=== PATIENT | female | born 1955 | race Caucasian/White ===

== ENCOUNTER → 2020-08-05 08:10 | Outpatient (BNVA) | payer MEDICAID, SELFPAY | PROVIDERS: PCP Internal Medicine; Visit Provider Internal Medicine | DX: Z95.2 Presence of prosthetic heart valve (principal); Z51.81 Encounter for therapeutic drug level monitoring; Z79.01 Long term (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 | CPT/HCPCS: 85610 ==

== ENCOUNTER → 2020-08-16 08:28 | Outpatient (REF) | payer MEDICAID, SELFPAY ==
--- NOTE | 2020-08-16 08:33 | CA_ITS ---
Transthoracic Echocardiogram Patient (Last, First, Middle): Nubia Bond, Gender: Female Date of : 1955 Age: 64 Procedure Date: 08/16/2020 Procedure Type: Transthoracic Echocardiogram Location: OP Height: 154.94 cm Weight: 71.67 kg BSA: 1.71 m2 Heart Rate: bpm BP: 110 / 69 mmHg Insole Tape Stitcher Uco: Referring MD: Luis Antonio Nelson MD Symptoms: ITS.REASON Conclusions: - Normal left ventricular size and systolic function. - Normal right ventricular cavity size. There is mildly decreased right ventricular systolic function. - The left atrium was not well visualized. - A mechanical prosthetic mitral valve is present. The prosthetic mitral valve appears to be functioning normally. There is no mitral valve regurgitation. There is no mitral valve stenosis. - Mild pulmonary hypertension is present. - There is mild dilatation of the ascending aorta. - There is moderate calcification of the aortic valve. There is mild thickening of the aortic valve. There is moderate aortic valve stenosis. The peak aortic velocity is 2.85 m/s. The mean gradient is 18 mmHg. The aortic valve area is 1.65 cm2. There is mild aortic valve regurgitation. Findings Left Ventricle Normal left ventricular size and systolic function. There is mildly increased left ventricular wall thickness. The visually estimated ejection fraction is between 65-70%. There is no evidence of regional wall motion abnormalities. Diastolic function is indeterminate on the basis of available data. Right Ventricle Normal right ventricular cavity size. There is mildly decreased right ventricular systolic function. Atria The left atrium was not well visualized. There is no evidence of interatrial shunt by color Doppler. The right atrium is moderately dilated. Aortic Valve There is moderate calcification of the aortic valve. There is mild thickening of the aortic valve. There is moderate aortic valve stenosis. The peak aortic velocity is 2.85 m/s. The mean gradient is 18 mmHg. The aortic valve area is 1.65 cm2. There is mild aortic valve regurgitation. Mitral Valve A mechanical prosthetic mitral valve is present. The prosthetic mitral valve appears to be functioning normally. There is no mitral valve regurgitation. There is no mitral valve stenosis. Pulmonic Valve The pulmonic valve is likely normal. There is trace pulmonic valve regurgitation. Tricuspid Valve Likely normal tricuspid valve structure and function. There is mild tricuspid valve regurgitation. Normal right atrial pressure. Mild pulmonary hypertension is present. Great Vessels The pulmonary artery was not well visualized. There is mild dilatation of the ascending aorta. Venous The inferior vena cava is normal in size and collapses greater than 50% with inspiration. Pericardium/Pleural There is no evidence of pericardial effusion. Prior Study Comparison No significant change compared to prior study dated: 07/09/2019. Measurements 2D Linear Measurements RVIDd: 2.40 RVIDd Index: 1.40 IVSd: 0.91 0.6-0.9/0.6-1.0 cm LVIDd: 5.79 3.9-5.3/4.2-5.9 cm LVIDd Index: 3.39 2.4-3.2/2.2-3.1 cm/m2 LVIDs: 3.56 2.0-3.6 cm LVPWd: 1.12 0.7-1.1 cm Ao Root: 3.40 2.1-3.5 cm LA Diam: 4.80 2.7-3.8/3.0-4.0 cm LAIDs Index: 2.81 1.5-2.3 cm/m2 LV Mass: 296.04 67-162/88-224 g LV Mass Index: 173.13 43-95/49-115 g/m2 LVOT Diam: 2.00 3.0+(-)1.3 cm 2D Systolic Function EF 4C: 66.80 >55% EF 2C: 80.90 >55% EF BiP: 74.50 >55% Mitral Valve PHT: 56.00 MVA PHT: 3.93 Decel Caswell: 9.39 Aortic Valve AoV Pk Vern: 2.85 AoV Mn Vern: 1.98 AoV VTI: 0.56 AoV Pk Grad: 32.00 Aov Mn Grad: 18.00 RADHA Cont.VTI: 1.65 AI Pk Vern: 4.34 AI Caswell: 1.85 LVOT LVOT Pk Vern: 1.44 LVOT Mn Vern: 0.98 LVOT VTI: 0.29 LVOT Pk Grad: 8.00 LVOT Mn Grad: 5.00 LVOT Diam: 2.00 LVOT Area: 3.14 Tricuspid Valve TR Pk Vern: 2.94 TR Pk Grad: 35.00 RA Press: 3.00 RVSP: 38.00 Great Vessels Aorta Ao Root-2D: 3.40 2.0-3.7 cm Ao Asc: 3.40 2.1-3.4 cm Updated in Other Vendor System with Status of Final López Lion MD electronically signed on 08/17/2020 11:33:53 AM with status of Final
== END ==
LOC: HO.CARD 08:28
PROVIDERS: PCP Internal Medicine; Visit Provider Internal Medicine Cardiovascular Disease
DX: I48.0 Paroxysmal atrial fibrillation (principal); I35.0 Nonrheumatic aortic (valve) stenosis; I27.20 Pulmonary hypertension, unspecified; I50.9 Heart failure, unspecified; Z95.2 Presence of prosthetic heart valve
CPT/HCPCS: 93306

== ENCOUNTER → 2020-09-01 08:06 | Outpatient (BNVA) | payer MEDICAID, SELFPAY | PROVIDERS: PCP Internal Medicine; Visit Provider Internal Medicine | DX: Z95.2 Presence of prosthetic heart valve (principal); Z51.81 Encounter for therapeutic drug level monitoring; Z79.01 Long term (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; I50.30 Unspecified diastolic (congestive) heart failure; I48.0 Paroxysmal atrial fibrillation; I35.0 Nonrheumatic aortic (valve) stenosis; Z79.899 Other long term (current) drug therapy | CPT/HCPCS: 85610; 99211; 99212 ==

== ENCOUNTER → 2020-09-15 08:06 | Outpatient (BNVA) | payer MEDICAID, SELFPAY | PROVIDERS: PCP Internal Medicine; Visit Provider Internal Medicine | DX: Z95.2 Presence of prosthetic heart valve (principal); Z51.81 Encounter for therapeutic drug level monitoring; Z79.01 Long term (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 | CPT/HCPCS: 85610; 99211 ==

== ENCOUNTER → 2020-10-17 08:04 | Outpatient (BNVA) | payer MEDICAID, SELFPAY | PROVIDERS: PCP Internal Medicine; Visit Provider Internal Medicine | DX: Z95.2 Presence of prosthetic heart valve (principal); Z51.81 Encounter for therapeutic drug level monitoring; Z79.01 Long term (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 | CPT/HCPCS: 85610; 99211 ==

== ENCOUNTER → 2020-12-14 08:24 | Outpatient (BNVA) | payer MEDICAID, SELFPAY | PROVIDERS: PCP Internal Medicine; Visit Provider Internal Medicine | DX: Z95.2 Presence of prosthetic heart valve (principal); Z51.81 Encounter for therapeutic drug level monitoring; Z79.01 Long term (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 | CPT/HCPCS: 85610; 99211 ==

== ENCOUNTER 2020-12-14 08:48 | Outpatient (REF) | payer MEDICAID, SELFPAY | END 2020-12-14 08:49 | disposition home or self-care (01) | LOC: HO.HAP 08:48 | PROVIDERS: Visit Provider Internal Medicine | DX: Z46.1 Encounter for fitting and adjustment of hearing aid (principal) | CPT/HCPCS: 85610; V5266 ==

== ENCOUNTER 2020-12-14 08:50 | Outpatient (REF) | payer SELFPAY | END 2020-12-14 08:51 | disposition home or self-care (01) | LOC: HO.HAP 08:50 | PROVIDERS: Visit Provider Internal Medicine | DX: Z46.1 Encounter for fitting and adjustment of hearing aid (principal) | CPT/HCPCS: V5267 ==

== ENCOUNTER → 2021-01-11 08:25 | Outpatient (BNVA) | payer SELFPAY | PROVIDERS: PCP Internal Medicine; Visit Provider Internal Medicine | DX: Z95.2 Presence of prosthetic heart valve (principal); Z51.81 Encounter for therapeutic drug level monitoring; Z79.01 Long term (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 | CPT/HCPCS: 85610; 99211 ==

== ENCOUNTER → 2021-01-13 08:27 | Outpatient (BNVA) | payer SELFPAY | PROVIDERS: PCP Internal Medicine; Visit Provider Internal Medicine | DX: Z95.2 Presence of prosthetic heart valve (principal); Z51.81 Encounter for therapeutic drug level monitoring; Z79.01 Long term (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 | CPT/HCPCS: 85610; 99211 ==

== ENCOUNTER → 2021-02-09 08:29 | Outpatient (BNVA) | payer SELFPAY | PROVIDERS: PCP Internal Medicine; Visit Provider Internal Medicine | DX: Z95.2 Presence of prosthetic heart valve (principal); Z79.01 Long term (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; Z51.81 Encounter for therapeutic drug level monitoring | CPT/HCPCS: 85610; 99211 ==

== ENCOUNTER → 2021-03-08 08:21 | Outpatient (BNVA) | payer MEDICAID, SELFPAY | PROVIDERS: PCP Internal Medicine; Visit Provider Internal Medicine | DX: I48.0 Paroxysmal atrial fibrillation (principal); I50.30 Unspecified diastolic (congestive) heart failure; I35.0 Nonrheumatic aortic (valve) stenosis; Z95.2 Presence of prosthetic heart valve; Z79.899 Other long term (current) drug therapy; Z51.81 Encounter for therapeutic drug level monitoring; Z79.01 Long term (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 | CPT/HCPCS: 85610; 99211; 99212 ==

== ENCOUNTER → 2021-03-16 08:10 | Outpatient (BNVA) | payer MEDICAID, SELFPAY | PROVIDERS: PCP Internal Medicine; Visit Provider Internal Medicine | DX: Z95.2 Presence of prosthetic heart valve (principal); Z51.81 Encounter for therapeutic drug level monitoring; Z79.01 Long term (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 | CPT/HCPCS: 85610; 99211 ==

== ENCOUNTER → 2021-03-29 08:18 | Outpatient (BNVA) | payer MEDICAID, SELFPAY | PROVIDERS: PCP Internal Medicine; Visit Provider Internal Medicine | DX: Z95.2 Presence of prosthetic heart valve (principal); Z51.81 Encounter for therapeutic drug level monitoring; Z79.01 Long term (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 | CPT/HCPCS: 85610; 99211 ==

== ENCOUNTER → 2021-04-11 09:53 | Outpatient (REF) | payer MEDICAID, SELFPAY ==
--- NOTE | 2021-04-11 09:59 | ECG_ITS ---
Hook-up date: 2021-04-11 10:07:00 Duration: 22:34:00 Test Indications: UNSPEC ATRIAL FLUTTER, PVC'S Medications: 04687 QRS complexes 898 Ventricular ectopics which represent <1 % of total QRS comp. * Supraventricular ectopics which represent % of total QRS comp. * Paced QRS complexs which represent % of total QRS comp. VENTRICULAR ECTOPY 886 Isolated 0 Bigeminal Cycles 6 Couplets 0 Runs 0 Beats in Runs * Beats LONGEST at * BPM at :: -- * Beats FASTEST at * BPM at :: -- SUPRAVENTRICULAR ECTOPY * Isolated * Couplets * Runs * Beats in Runs * Beats LONGEST at * BPM at :: -- * Beats FASTEST at * BPM at :: -- HEART RATES 52 MIN at 03:44:16 2021-04-12 76 AVG 117 MAX at 16:38:13 2021-04-11 LONGEST RR 1.3440 secs at 03:44:14 2021-04-12 S-T LEVELS Channel 1 - 128 mm at 10:07:00 2021-04-11 - 128 mm at 10:07:00 2021-04-11 Channel 2 - 128 mm at 10:07:00 2021-04-11 - 128 mm at 10:07:00 2021-04-11 Channel 3 - 128 mm at 02:92:61 -- - 128 mm at 02:92:61 Basic rhythm Atrial fibrillation No long pause or profound bradycardia Occasional Premature ventricular complexes Rate is adequately controlled with average HR of 76 bpm Patient did not report any symptoms in the diary Referred By: Luis Antonio Nelson Overread By: LUIS ANTONIO NELSON MD
== END ==
LOC: HO.CARD 09:53
PROVIDERS: Visit Provider Internal Medicine Cardiovascular Disease
DX: I48.92 Unspecified atrial flutter (principal); I49.3 Ventricular premature depolarization
CPT/HCPCS: 93225; 93226

== ENCOUNTER → 2021-04-12 08:29 | Outpatient (BNVA) | payer MEDICAID, SELFPAY | PROVIDERS: PCP Internal Medicine; Visit Provider Internal Medicine | DX: Z95.2 Presence of prosthetic heart valve (principal); Z51.81 Encounter for therapeutic drug level monitoring; Z79.01 Long term (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 | CPT/HCPCS: 85610; 99211 ==

== ENCOUNTER 2021-04-15 06:04 | Emergency (ER) | payer MEDICAID, SELFPAY ==
--- NOTE | ~2021-04-15 | CT_ITS ---
EXAMINATION: CT SOFT TISSUE NECK WITH CONTRAST CLINICAL INFORMATION: Right-sided swelling. Evaluate for abscess. COMPARISON: None TECHNIQUE: Following the intravenous administration of 60 mL of Omnipaque 350 intravenous contrast, helical imaging was performed in the axial plane with generation of coronal and sagittal reformatted images. This CT examination was performed using dose optimization techniques as appropriate, variously including the following: *Automated exposure control *Adjustment of mA and/or kV according to patient size (this includes techniques or standardized protocols for targeted exams where dose is matched to indication/reason for exam; i.e. extremities or head) *Use of iterative reconstruction technique DLP: 589 mGy-cm FINDINGS: There is asymmetric soft tissue swelling of the soft tissues in the right side of the oropharynx. This is heterogeneous with low-attenuation areas suggestive of multiple small peritonsillar abscesses. Largest discrete abscess measures 1.2 x 0.6 x 1 cm in AP transverse and longitudinal dimension axial image 48 sagittal reconstructed image 29. This extends inferiorly just below the hyoid bone. There is some asymmetric soft tissue swelling adjacent to the hyoid bone. There is asymmetric effacement of the right piriform sinus and displacement of the right aryepiglottic fold to the left. The epiglottis is normal appearing. The larynx is normal appearing. There is shotty cervical lymphadenopathy. No enlarged lymph nodes are seen. There is bilateral carotid calcification. There may be carotid stenosis on the right. Follow-up ultrasound should be considered. The visualized orbits are normal. Visualized intracranial structures are normal. The visualized paranasal sinuses, mastoid air cells and middle ears are clear. The temporomandibular joints are normal. The salivary glands are normal. The lung apices are clear. The thyroid gland is normal. There is a low-attenuation seen questionable for right hilar lymphadenopathy. This measures 1.6 x 1 cm axial image 120 series 3. There is evidence of atherosclerotic disease. Superior mediastinum is otherwise normal. There is a 1 cm groundglass attenuation right upper lobe nodule axial image 3 2 series 4. There is degenerative spondylosis of the spine at C4-C5 C5-C6 and C6-C7. There is curvature of the thoracic spine to the right. There are median sternotomy wires. CT/CT soft tissue neck w con IMPRESSION: Heterogeneous attenuation asymmetric soft tissue swelling in the right oral pharynx and multiple small right peritonsillar abscesses, largest measuring 1.2 x 0.6 x 1 cm. This tracks inferiorly below the hyoid bone with asymmetric soft tissue swelling adjacent to the hyoid bone and effacement of the right piriform sinus and displacement of the right aryepiglottic fold. The epiglottis and larynx are normal appearing. Bilateral carotid calcification. Question right carotid stenosis. Follow-up elective carotid ultrasound considered. 1 cm groundglass attenuation right upper lobe nodule. Follow-up elective chest CT should also be considered.
[2021-04-15 06:20] VITALS: BP 136/60; PULSE 79; RESP 16; TEMP 36.9; O2SAT 96; BMI 32.1
--- NOTE | 2021-04-15 06:33 | ED_ITS ---
HPI - General Adult General Chief complaint: General Medical Stated complaint: Swollen throat, hurts to swallow Time Seen by Provider: 04/15/21 06:33 Source: patient Mode of arrival: ambulatory Limitations: no limitations History of Present Illness complaint: sore throat Onset (ago): day(s) () Location: mouth Severity: moderate Quality: aching and constant Pain Consistency: constant Relieving factors: none Exacerbating factors: other (swallowing) Associated symptoms: denies other symptoms Treatments prior to arrival: none Related Data Home Medications Medication Instructions Recorded Confirmed calcium citrate 315 mg-vitamin D3 1 tab PO DAILY 09/01/20 03/08/21 5 mcg (200 unit) tablet ferrous fumarate 325 mg (106 mg 325 mg PO BID 09/01/20 03/08/21 iron) tablet furosemide 20 mg tablet 20 mg PO DAILY 09/01/20 03/08/21 levothyroxine 25 mcg tablet 25 mcg PO DAILY 09/01/20 03/08/21 lisinopril 5 mg tablet 5 mg PO DAILY 09/01/20 03/08/21 mometasone-formoterol HFA 100 2 puff INHALATION BID 09/01/20 03/08/21 mcg-5 mcg/actuation aerosol inhaler tiotropium bromide 2.5 2 puff INHALATION BEDTIME 09/01/20 03/08/21 mcg/actuation mist for inhalation vitamin B complex 1 tab PO DAILY 09/01/20 03/08/21 sertraline 50 mg tablet 200 mg PO DAILY tab 03/08/21 03/08/21 Previous Rx's Medication Instructions Recorded warfarin 2.5 mg tablet 2.5 mg PO DAILY #90 tab 08/05/20 diltiazem HCl 240 mg 240 mg PO DAILY #90 cap 02/21/21 capsule,extended release 24 hr amoxicillin-pot clavulanate 1 tab PO BID 10 Days #14 tab 04/15/21 [Augmentin] Allergies Allergy/AdvReac Type Severity Reaction Status Date / Time PAPER TAPE Allergy Unknown REDNESS Uncoded 07/14/20 17:53 peper type Allergy Unknown rash Uncoded 09/09/19 00:00 Review of Systems Review of Systems: Constitutional : No Weight loss, No Fever, No Chills, No Fatigue, No Malaise ENT/Mouth : pos sore throat, No Rhinorrhea Eyes: No Eye Pain, No Swelling, No Redness Cardiovascular : No Chest Pain, No SOB, No Dyspnea on Exertion, No Orthopnea, No Edema, No Palpitations Respiratory : No Cough, No Sputum, No Wheezing Gastrointestinal : No Nausea, No Vomiting, No Diarrhea, No Constipation, No abdominal Pain, No Hematochezia, No Melena Genitourinary : No Dysuria, No Urinary Frequency, No Hematuria, Musculoskeletal : No joint pain, No Myalgias, No Joint Swelling Skin : No Skin Lesions, No rash Neuro : No Weakness, No Numbness, No Dizziness, No Headache Psych : No Anxiety/Panic, No Depression Heme/Lymph: No Bruising, No Bleeding, pos Lymphadenopathy Endocrine : No Polyuria, No Polydipsia All other systems reviewed and are negative PMFSH Past Medical History Attestation statement: The following information was validated with the patient. Medical History (HFpEF) heart failure with preserved ejection fraction Aortic stenosis COPD (chronic obstructive pulmonary disease) Obesity Paroxysmal atrial fibrillation Surgical History History of sleeve gastrectomy (~2017) Hx of section Hx of mitral valve replacement (~2004) Hx of transesophageal echocardiography (SHELIA) for monitoring (~2015) S/P MVR (mitral valve replacement) Family History Family History Father No problems noted. Mother CVD (cardiovascular disease) Social History Social History (Updated 04/15/21 @ 06:41 by Kristin Banda DO) Alcohol intake: never Patient Tobacco Use Status: Never used Tobacco Use of substances other than those prescribed or required for medical reasons: No Advance Directives: No Advance Directives Information Provided: No Physical Exam Vital Signs: Vital Signs: Last Vital Signs Temp 98.4 F 04/15/21 06:20 Pulse 68 04/15/21 08:00 Resp 16 04/15/21 08:00 BP 113/49 L 04/15/21 08:00 Pulse Ox 96 04/15/21 08:00 Body Mass Index 32.1 Appearance: Alert. Oriented X3. No acute distress. Eyes: Pupils equal, round and reactive to light. ENT: Pharynx R sided erythema and swelling noted with no exudate peritonsillar cellulitis noted, no stridor, can manage secretions Neck: Normal inspection. Neck supple. R sided moderate cervical lymphadenopthy and bogginess felt no discrete mass CVS: Normal heart rate and rhythm. Pulses normal. Respiratory: No respiratory distress. Breath sounds normal. Abdomen: Soft and nontender. Skin: Skin warm and dry. Normal skin color. Normal skin turgor. Extremities: No lower extremity edema. No calf ttp Neuro: Oriented X 3. No motor deficit. No sensory deficit. Course Course Course Narrative: Heterogeneous attenuation asymmetric soft tissue swelling in the right oral pharynx and multiple small right peritonsillar abscesses, largest measuring 1.2 x 0.6 x 1 cm. This tracks inferiorly below the hyoid bone with asymmetric soft tissue swelling adjacent to the hyoid bone and effacement of the right piriform sinus and displacement of the right aryepiglottic fold. The epiglottis and larynx are normal appearing. Bilateral carotid calcification. Question right carotid stenosis. Follow-up elective carotid ultrasound considered. 1 cm groundglass attenuation right upper lobe nodule. Follow-up elective chest CT should also be considered. THE PATIENT REFUSES TRANSFER TO [facility] FOR ENT GIVEN ABSCESS SHE STATES SHE CANNOT SHE CARES FOR HER BROTHER SHE IS AWARE OF ABSCESS AND THE FACT THAT IT IS PUSHING ON THE AIRWAY, CLINICALLY HER VOICE AND HER PRESENTATION IS MARKEDLY IMPROVED AFTER DEXAMETHASONE Medical Decision Making MDM Narrative Medical decision making narrative: 65 yo female with hx of CHF, MVR replacement on coumadin, aflutter, COPD here with sore throat worsening since her exam is concerning for possible abscess and given her coumadin use this is concerning how it would be treated she may require tertiary center, at this time will obtain labs, CT scan for abscess, give steroids and start on IV clindamyinc dispo per results of CT scan and if she needs ENT involvement, her airway is patent at this time. Lab Data Result diagrams: 04/15/21 07:02 04/15/21 07:02 Labs: Lab Results 04/15/21 04/15/21 04/15/21 Range/Units 07:02 07:02 07:02 WBC 8.4 (4.8-10.8) X10*3/uL RBC 4.06 L (4.20-5.50) X10*6/uL Hgb 11.1 L (12.0-16.0) g/dl Hct 35.6 L (37-47) % MCV 87.7 (80-98) fL MCH 27.3 (27.0-33.0) pg MCHC 31.2 (31.0-35.0) g/dl RDW 14.6 (11.0-16.0) % Plt Count 165 (160-400) X10*3/uL MPV 11.9 (9.4-12.3) fL Immature Gran % (Auto) 0.4 (0.0-0.4) % Neut % (Auto) 83.2 H (45-73) % Lymph % (Auto) 7.1 L (20-40) % Chambers % (Auto) 8.5 (2-11) % Eos % (Auto) 0.6 (0-4) % Baso % (Auto) 0.2 (0-2) % Lymph # (Auto) 0.6 L (1.2-4.9) X10*3/uL Chambers # (Auto) 0.7 (0.1-1.2) X10*3/uL Eos # (Auto) 0.1 (0.0-0.4) X10*3/uL Baso # (Auto) 0.0 (0.0-0.2) X10*3/uL Abs Immat Gran (auto) 0.03 (0.00-0.03) X10*3/uL Absolute Neuts (auto) 7.0 (2.0-8.3) X10*3/uL Absolute Nucleated RBC 0.000 (0.0-0.012) X10*3/uL Nucleated RBC % (auto) 0.0 (0.0-0.2) /100WBC PT (10.8-13.0) SEC INR (0.9-1.1) APTT (24.1-38.0) SEC Sodium 139 (135-145) mmol/L Potassium 4.4 (3.3-5.1) mmol/L Chloride 107 (96-108) mmol/L Carbon Dioxide 24 (22-29) mmol/L Anion Gap 12 (12-20) BUN 16 (9-16) mg/dL Creatinine 0.68 (0.5-1.4) mg/dL Estim Creat Clear Calc 78.5 Estimated GFR > 60 Random Glucose 99 (60-115) mg/dL Lactic Acid (0.5-2.0) mmol/L Calcium 9.0 (8.4-10.2) mg/dL S. pyogenes GrpA IVAN Negative (Negative) 04/15/21 04/15/21 Range/Units 07:02 07:02 WBC (4.8-10.8) X10*3/uL RBC (4.20-5.50) X10*6/uL Hgb (12.0-16.0) g/dl Hct (37-47) % MCV (80-98) fL MCH (27.0-33.0) pg MCHC (31.0-35.0) g/dl RDW (11.0-16.0) % Plt Count (160-400) X10*3/uL MPV (9.4-12.3) fL Immature Gran % (Auto) (0.0-0.4) % Neut % (Auto) (45-73) % Lymph % (Auto) (20-40) % Chambers % (Auto) (2-11) % Eos % (Auto) (0-4) % Baso % (Auto) (0-2) % Lymph # (Auto) (1.2-4.9) X10*3/uL Chambers # (Auto) (0.1-1.2) X10*3/uL Eos # (Auto) (0.0-0.4) X10*3/uL Baso # (Auto) (0.0-0.2) X10*3/uL Abs Immat Gran (auto) (0.00-0.03) X10*3/uL Absolute Neuts (auto) (2.0-8.3) X10*3/uL Absolute Nucleated RBC (0.0-0.012) X10*3/uL Nucleated RBC % (auto) (0.0-0.2) /100WBC PT 35.5 H (10.8-13.0) SEC INR 3.0 H (0.9-1.1) APTT 45.9 H (24.1-38.0) SEC Sodium (135-145) mmol/L Potassium (3.3-5.1) mmol/L Chloride (96-108) mmol/L Carbon Dioxide (22-29) mmol/L Anion Gap (12-20) BUN (9-16) mg/dL Creatinine (0.5-1.4) mg/dL Estim Creat Clear Calc Estimated GFR Random Glucose (60-115) mg/dL Lactic Acid 0.7 (0.5-2.0) mmol/L Calcium (8.4-10.2) mg/dL S. pyogenes GrpA IVAN (Negative) Discharge Plan Discharge Clinical Impression: Abscess, peritonsillar Patient Disposition: Home, Self-Care Instructions: Peritonsillar Abscess (ED) Additional Instructions: INR 3.0 BE AWARE THAT ANTIBIOTICS CAN INCREASE YOUR INR YOU WERE RECOMMENDED TO GO TO [facility] GIVEN THE ABSCESS BUT DECLINED, PLEASE CALL 911 IF YOU RAPIDLY DECLINE, FOLLOW UP WITH AN ENT CT SCAN FINDINGS: Heterogeneous attenuation asymmetric soft tissue swelling in the right oral pharynx and multiple small right peritonsillar abscesses, largest measuring 1.2 x 0.6 x 1 cm. This tracks inferiorly below the hyoid bone with asymmetric soft tissue swelling adjacent to the hyoid bone and effacement of the right piriform sinus and displacement of the right aryepiglottic fold. The epiglottis and larynx are normal appearing. Bilateral carotid calcification. Question right carotid stenosis. Follow-up elective carotid ultrasound considered. 1 cm groundglass attenuation right upper lobe nodule. Follow-up elective chest CT should also be considered. [facility] ENT: Address: [address] [place] [address] Prescriptions: New amoxicillin-pot clavulanate [Augmentin] 875-125 mg tablet 1 tab PO BID 10 Days Qty: 14 RF: 0 No Action diltiazem HCl 240 mg capsule,extended release 24hr 240 mg PO DAILY Qty: 90 RF: 3 lisinopril 5 mg tablet 5 mg PO DAILY RF: 0 levothyroxine 25 mcg tablet 25 mcg PO DAILY RF: 0 ferrous fumarate 325 mg (106 mg iron) tablet 325 mg PO BID RF: 0 vitamin B complex [B Complex-Vitamin B12] Tablet 1 tab PO DAILY RF: 0 calcium citrate-vitamin D3 [Calcium Citrate + D] 315 mg-5 mcg (200 unit) tablet 1 tab PO DAILY RF: 0 Spiriva Respimat 2.5 mcg/actuation mist 2 puff inhalation BEDTIME RF: 0 Dulera 100-5 mcg/actuation HFA aerosol inhaler 2 puff inhalation BID RF: 0 furosemide [Lasix] 20 mg tablet 20 mg PO DAILY RF: 0 sertraline [Zoloft] 50 mg tablet 200 mg PO DAILY RF: 0 warfarin 2.5 mg tablet 2.5 mg PO DAILY Qty: 90 RF: 0 Interventions: ED Discharge Assessment Last Done: 04/15/21 09:49 Discharge Date/Time: 04/15/21 09:51
[2021-04-15 07:11] LABS: MANUAL DIFF FLAG NO
[2021-04-15 07:13] LABS: Basophils Percent Auto 0.2 % (0-2); Eosinophils Absolute Auto 0.1 X10*3/uL (0.0-0.4); Eosinophils Percent Auto 0.6 % (0-4); Hematocrit 35.6 % (37-47); Hemoglobin 11.1 g/dl (12.0-16.0); Imm Gran Abs Auto 0.03 X10*3/uL (0.00-0.03); Imm Gran Pct Auto 0.4 % (0.0-0.4); Lymphocytes Absolute Auto 0.6 X10*3/uL (1.2-4.9); Lymphocytes Percent Auto 7.1 % (20-40); Mean Corpuscular HGB Conc 31.2 g/dl (31.0-35.0); Mean Corpuscular Hemoglobin 27.3 pg (27.0-33.0); Mean Corpuscular Volume 87.7 fL (80-98); Mean Platelet Volume 11.9 fL (9.4-12.3); Monocytes Absolute Auto 0.7 X10*3/uL (0.1-1.2); Monocytes Percent Auto 8.5 % (2-11); Neutrophils Percent Auto 83.2 % (45-73); Platelet Count 165 X10*3/uL (160-400); Red Blood Count 4.06 X10*6/uL (4.20-5.50); Red Cell Distribution Width 14.6 % (11.0-16.0); White Blood Count 8.4 X10*3/uL (4.8-10.8)
[2021-04-15] MEDS: dexAMETHasone sod phosphate 4 MG/ML VIAL 6 MG IVPUSH (07:18)
[2021-04-15] MEDS: Clindamycin Phosphate/D5W 900 MG/50 ML PIGGYBACK 50 MG IV (07:18)
[2021-04-15 07:21] LABS: Prothrombin Time 35.5 SEC (10.8-13.0)
[2021-04-15 07:22] LABS: IDNOW Serial# 9DD0AD1C; Strep A Nucleic Acid Negative (Negative)
[2021-04-15 07:24] LABS: Partial Thromboplastin Time 45.9 SEC (24.1-38.0)
--- NOTE | 2021-04-15 07:32 | PC.NURSE ---
Report received from ASIF Baer. Patient reporting throat pain, primarily on right side. Pain 5/10. Airway paten with regular, even, and nonlabored respirations. Skin PWD. Afebrile. IV established and labs drawn. Patient tolerated well. Medicated with decadron and Clindamycin hung. Awaiting antibiotic infusion and CT scan. Will continue to monitor.
[2021-04-15 07:35] LABS: Lactic Acid 0.7 mmol/L (0.5-2.0)
[2021-04-15 07:38] LABS: Anion Gap 12 (12-20); Blood Urea Nitrogen 16 mg/dL (9-16); Carbon Dioxide 24 mmol/L (22-29); Chloride 107 mmol/L (96-108); Creatinine Clr Calc Pharmacy 78.5; Estimated Glomerular Filt Rate > 60; Glucose Random 99 mg/dL (60-115); Potassium 4.4 mmol/L (3.3-5.1); Sodium 139 mmol/L (135-145)
[2021-04-15 08:00] VITALS: BP 113/49; PULSE 68; RESP 16; O2SAT 96
--- NOTE | 2021-04-15 08:07 | PC.NURSE ---
Patient reports feeling mildly improved. Notes it feels a bit easier to swallow and pain is decreased to 3/10. Airway remains patent, speaking in clear and full sentences. Respirations regular and even. Skin PWD. Antibiotics infusion completed. Awaiting CT scan.
[2021-04-15] MEDS: iohexoL 350 MG/ML 100 ML INFUS..BTL IV (08:48)
== END 2021-04-15 09:51 | disposition home or self-care (01) ==
PROVIDERS: Emergency Provider Emergency Medicine; PCP Internal Medicine
DX: J36 Peritonsillar abscess (principal); I48.0 Paroxysmal atrial fibrillation; I50.30 Unspecified diastolic (congestive) heart failure; J44.9 Chronic obstructive pulmonary disease, unspecified; Z79.01 Long term (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; Z79.899 Other long term (current) drug therapy; Z95.2 Presence of prosthetic heart valve
CPT/HCPCS: 36415; 70491; 80048; 83605; 85025; 85610; 85730; 87040; 87651; 96365; 96375; 99284; J1100; Q9967

== ENCOUNTER 2021-04-26 13:25 | Inpatient (IN) | payer MEDICAID, SELFPAY ==
[2021-04-26] VITALS (8 sets, daily range): BP systolic 67–101; BP diastolic 37–53; PULSE 65–100; RESP 15–77; TEMP 36.4–36.8; O2SAT 94–98; BMI 31.1
--- NOTE | ~2021-04-26 | CT_ITS ---
EXAMINATION: CT SOFT TISSUE NECK WITHOUT CONTRAST CLINICAL INFORMATION: Follow-up peritonsillar abscess. COMPARISON: Neck CT from 04/15/2021. TECHNIQUE: Helical imaging was performed in the axial plane with generation of coronal and sagittal reformatted images. This CT examination was performed using dose optimization techniques as appropriate, variously including the following: *Automated exposure control *Adjustment of mA and/or kV according to patient size (this includes techniques or standardized protocols for targeted exams where dose is matched to indication/reason for exam; i.e. extremities or head) *Use of iterative reconstruction technique DLP: 581 mGy-cm FINDINGS: Asymmetric thickening of the right tonsillar wall has grossly normal as on this limited noncontrast study. No obvious low-density fluid collection is seen within the right palatine tonsil or peritonsillar region. There is a minimal amount of soft tissue stranding in the retropharyngeal space without a discrete fluid collection. The parotid and submandibular glands appear normal. The oral cavity is normal in appearance. Soft tissue thickening extending more inferiorly along the right pharyngeal wall into the vallecula has improved, however, a mild degree of residual mucosal edema is still evident with partial effacement of the right vallecula as compared to the left side. Previous mild edema in the epiglottis has resolved. Mild edematous change of the right aryepiglottic fold on the previous examination has also now normalized. The remaining large and structures are normal and the airway is preserved. The thyroid gland appears normal. The imaged portions of the brain demonstrate no acute abnormality. The orbits are normal. The middle ear cavities and mastoid air cells are aerated. Atherosclerotic wall calcifications again visible in the carotid vasculature at the level of the bifurcations. No bulky cervical adenopathy is seen. Moderate to severe lower cervical spondylosis again noted. Large perforated defect in the nasal septum. Absence of the majority of the middle and inferior turbinates bilaterally. The TMJs are normal. Enlargement of the main pulmonary artery again noted. Post sternotomy changes visible. A patchy area of groundglass density in the right upper lobe measuring approximately 1 cm in size is unchanged and nonspecific. Mild paraseptal emphysematous changes again noted. CT/CT soft tissue neck wo con IMPRESSION: Interval improvement compared to the previous study with resolution of abnormal thickening of the right tonsillar wall. Previous presumed peritonsillar abscess is no longer seen on this limited noncontrast study. Submucosal edema in the inferior right pharyngeal wall partially effacing the right vallecula has improved. Submucosal edema in the epiglottis and right aryepiglottic fold have resolved. No cervical adenopathy. Mild residual soft tissue stranding in the retropharyngeal space without a discrete fluid collection. Stable nonspecific groundglass density in the right upper lobe. A follow-up CT scan of the chest is recommended in order to ensure resolution of this imaging finding.
--- NOTE | ~2021-04-26 | XR_ITS ---
EXAMINATION: XR CHEST CLINICAL INFORMATION: Chest pain COMPARISON: Previous chest x-ray 01/20/2020 TECHNIQUE: Frontal view of the chest was obtained. FINDINGS: The cardiac silhouette is slightly enlarged but stable. 2 heart valve rings are seen. There are median sternotomy wires. Lungs are clear. There is no pleural effusion or pneumothorax. Bony structures are unremarkable. XR/XR chest 1V IMPRESSION: No evidence for acute disease in the chest.
--- NOTE | 2021-04-26 14:41 | ECG_ITS ---
Test Reason : LOW BP Blood Pressure : / mmHG Vent. Rate : 074 BPM Atrial Rate : 258 BPM P-R Int : 000 ms QRS Dur : 098 ms QT Int : 400 ms P-R-T Axes : 000 052 -17 degrees QTc Int : 444 ms Atrial fibrillation with a competing junctional pacemaker Abnormal QRS-T angle, consider primary T wave abnormality Abnormal ECG When compared with ECG of 20-JAN-2020 10:03, Atrial fibrillation has replaced Sinus rhythm Referred By: Brown Fair Electronically Signed By:JUMANA MOSES MD
--- NOTE | 2021-04-26 14:42 | ED_ITS ---
HPI - General Adult General Chief complaint: General Medical Stated complaint: vomiting, diarrea Time Seen by Provider: 04/26/21 14:41 Source: patient Mode of arrival: ambulatory Limitations: no limitations History of Present Illness HPI narrative: this is 65 years old female presented to the emergency department ambulatory with a chief complaint of diarrhea, nausea she states she is unable to keep anything down. Denies any fever chills chest pain she has history of mitral valve replacement she is anticoagulated with Coumadin Onset (ago): day(s) (2) Radiation: non-radiation Severity: moderate Pain Consistency: constant Relieving factors: none Related Data Home Medications Medication Instructions Recorded Confirmed furosemide 20 mg tablet 40 mg PO DAILY@1700 09/01/20 04/26/21 levothyroxine 25 mcg tablet 25 mcg PO DAILY 09/01/20 04/26/21 lisinopril 5 mg tablet 5 mg PO DAILY 09/01/20 04/26/21 mometasone-formoterol HFA 100 2 puff INHALATION BID 09/01/20 04/26/21 mcg-5 mcg/actuation aerosol inhaler tiotropium bromide 2.5 2 puff INHALATION DAILY 09/01/20 04/26/21 mcg/actuation mist for inhalation albuterol sulfate [ProAir HFA] 2 puff INHALATION Q4-6H PRN 04/26/21 04/26/21 atorvastatin 20 mg PO DAILY 04/26/21 04/26/21 ferrous sulfate 325 mg PO 1700,1900,2100 04/26/21 04/26/21 sertraline 200 mg PO DAILY 04/26/21 04/26/21 warfarin 7.5 mg PO SUTUTHSA@1800 04/26/21 04/26/21 warfarin 10 mg PO MOWEFR@1800 04/26/21 04/26/21 zolpidem 5 mg PO BEDTIME PRN 04/26/21 04/26/21 Previous Rx's Medication Instructions Recorded diltiazem HCl 240 mg 240 mg PO DAILY #90 cap 02/21/21 capsule,extended release 24 hr Allergies Allergy/AdvReac Type Severity Reaction Status Date / Time PAPER TAPE Allergy Unknown REDNESS Uncoded 07/14/20 17:53 peper type Allergy Unknown rash Uncoded 09/09/19 00:00 Review of Systems Review of Systems: Yes all other systems are reviewed and are negative Cardiovascular: Cardiovascular: Reports no additional cardiovascular complaints Respiratory: Respiratory: Reports no additional respiratory complaints and Reports no additional respiratory complaints Neurologic: Reports system reviewed and no additional complaints, except as documented PMFSH Past Medical History Medical History (HFpEF) heart failure with preserved ejection fraction Aortic stenosis COPD (chronic obstructive pulmonary disease) Obesity Paroxysmal atrial fibrillation Surgical History History of sleeve gastrectomy (~2017) Hx of section Hx of mitral valve replacement (~2004) Hx of transesophageal echocardiography (SHELIA) for monitoring (~2015) S/P MVR (mitral valve replacement) Family History Family History Father No problems noted. Mother CVD (cardiovascular disease) Social History Social History Household Members: Family Housing: House Do you presently have visiting nurse or other home services: No Alcohol intake: never Patient Tobacco Use Status: Former Tobacco user Tobacco use type: Cigarette Use of substances other than those prescribed or required for medical reasons: No Currently Displaying Signs/Symptoms of Drug Intoxication Withdrawal: No Have you been hit, kicked, punched, or otherwise hurt by someone within the past year? If so, by whom?: No Do you feel safe in your current relationship?: No Current Relationship Is there a partner from a previous relationship who is making you feel unsafe now?: No Are you made to feel afraid or neglected: No Advance Directives: Yes Advance Directives Information Provided: Yes Advance Directives on File: No Advance Directives Date on File: 04/27/21 Do you have thoughts of harming others: None Do you have a plan to hurt others: No Plan Recently lost weight without trying: No Nutrition Risks: No Nutritional Risk Patient : No : No Poor oral hygiene: No service: No Current occupational status: disabled Physical Exam Vital Signs: Vital Signs: Last Vital Signs Temp 99.3 F 04/27/21 19:41 Pulse 88 04/27/21 19:41 Resp 22 H 04/27/21 19:41 BP 112/60 04/27/21 19:41 Pulse Ox 95 04/27/21 19:41 Body Mass Index 31.1 Const: General: cooperative and comfortable Orientation/consciousness: oriented to person, oriented to place, oriented to time and patient oriented x3 HENMT: Head: Yes normal to inspection Eyes: General: appearance normal, both eyes and all related structures Visual Morgan: normal visual morgan by confrontation Neck: Neck: Yes normal visual inspection, Yes full ROM and Yes no lymphadenopathy Chest: Chest palpation & inspection: normal inspection of the chest and normal palpation of entire chest wall Resp: Effort & Inspection: normal respiratory effort Auscultation: clear to auscultation bilaterally Cardio: Jugular venous distension: no JVD Rate: regular rate Rhythm: regular rhythm GI: Inspection: Yes normal to inspection Auscultation: normal bowel sounds Skin: General skin exam: no rashes or lesions noted and elasticity normal Neuro: General: oriented to person, oriented to place, oriented to time, patient oriented x3 and gait normal Medical Decision Making MDM Narrative Medical decision making narrative: the picture is most consistent with hypotension secondary to hypovolemia,infact she report watery diarrhea,and fluid loss secondary to the diarrhea ,she does not report fever,she is mentating well,she has negative quick sofa score (no altered mental status ,no tachypnea only low BP).I do no think she is septic,we are gong to give IV fluids,will get blood cultures anyway,we will send stools culture,Audreyff is in the d.d. she received augmentin in ED few Days ago. She has an elevated INR but she is no bleeding therefore I thin is reasonable to give po Vit K,I fili not think she need reversal of INR because she has a mechanical valve and she is no bleeding. consulted ICU attending Dr Amando Diaz to see the pt because the hypotension ,he will see the pt in ED.I do not think central line is indacated because we have good IV access and would be risky procedure with the INR elevated. Lab Data Result diagrams: 04/27/21 05:48 04/27/21 05:48 Labs: Lab Results 04/26/21 04/26/21 04/26/21 Range/Units 15:19 15:19 15:19 WBC 16.1 H (4.8-10.8) X10*3/uL RBC 4.50 (4.20-5.50) X10*6/uL Hgb 12.2 (12.0-16.0) g/dl Hct 38.0 (37-47) % MCV 84.4 (80-98) fL MCH 27.1 (27.0-33.0) pg MCHC 32.1 (31.0-35.0) g/dl RDW 14.5 (11.0-16.0) % Plt Count 195 (160-400) X10*3/uL MPV Not Reportable Immature Gran % (Auto) 0.6 H (0.0-0.4) % Neut % (Auto) 88.1 H (45-73) % Lymph % (Auto) 3.0 L (20-40) % Independence % (Auto) 7.8 (2-11) % Eos % (Auto) 0.3 (0-4) % Baso % (Auto) 0.2 (0-2) % Lymph # (Auto) 0.5 L (1.2-4.9) X10*3/uL Independence # (Auto) 1.3 H (0.1-1.2) X10*3/uL Eos # (Auto) 0.1 (0.0-0.4) X10*3/uL Baso # (Auto) 0.0 (0.0-0.2) X10*3/uL Abs Immat Gran (auto) 0.10 H (0.00-0.03) X10*3/uL Absolute Neuts (auto) 14.2 H (2.0-8.3) X10*3/uL Absolute Nucleated RBC 0.000 (0.0-0.012) X10*3/uL Nucleated RBC % (auto) 0.0 (0.0-0.2) /100WBC Smear Tech's Comments VERIFIED PT 129.6 H D (10.8-13.0) SEC INR 10.6 H* D (0.9-1.1) Sodium 135 (135-145) mmol/L Potassium 4.0 (3.3-5.1) mmol/L Chloride 101 (96-108) mmol/L Carbon Dioxide 17 L (22-29) mmol/L Anion Gap 21 H (12-20) BUN 57 H D (9-16) mg/dL Creatinine 3.73 H (0.5-1.4) mg/dL Estim Creat Clear Calc 14.6 Estimated GFR 12 Random Glucose 93 (60-115) mg/dL Lactic Acid (0.5-2.0) mmol/L Calcium 8.5 (8.4-10.2) mg/dL Total Bilirubin 0.3 (0.0-1.0) mg/dL AST 19 (5-31) U/L ALT 8 (0-31) U/L Alkaline Phosphatase 104 (39-117) U/L Troponin I High Sens (<3.5-17.0) ng/L Total Protein 6.6 (6.5-8.0) g/dL Albumin 3.5 (3.5-5.0) g/dL 04/26/21 04/26/21 04/26/21 Range/Units 15:19 16:15 20:18 WBC (4.8-10.8) X10*3/uL RBC (4.20-5.50) X10*6/uL Hgb (12.0-16.0) g/dl Hct (37-47) % MCV (80-98) fL MCH (27.0-33.0) pg MCHC (31.0-35.0) g/dl RDW (11.0-16.0) % Plt Count (160-400) X10*3/uL MPV Immature Gran % (Auto) (0.0-0.4) % Neut % (Auto) (45-73) % Lymph % (Auto) (20-40) % Independence % (Auto) (2-11) % Eos % (Auto) (0-4) % Baso % (Auto) (0-2) % Lymph # (Auto) (1.2-4.9) X10*3/uL Independence # (Auto) (0.1-1.2) X10*3/uL Eos # (Auto) (0.0-0.4) X10*3/uL Baso # (Auto) (0.0-0.2) X10*3/uL Abs Immat Gran (auto) (0.00-0.03) X10*3/uL Absolute Neuts (auto) (2.0-8.3) X10*3/uL Absolute Nucleated RBC (0.0-0.012) X10*3/uL Nucleated RBC % (auto) (0.0-0.2) /100WBC Smear Tech's Comments PT (10.8-13.0) SEC INR (0.9-1.1) Sodium 137 (135-145) mmol/L Potassium 3.8 (3.3-5.1) mmol/L Chloride 111 H (96-108) mmol/L Carbon Dioxide 16 L (22-29) mmol/L Anion Gap 14 (12-20) BUN 47 H (9-16) mg/dL Creatinine 2.27 H (0.5-1.4) mg/dL Estim Creat Clear Calc 24.1 Estimated GFR 22 Random Glucose 95 (60-115) mg/dL Lactic Acid 1.0 (0.5-2.0) mmol/L Calcium 7.5 L D (8.4-10.2) mg/dL Total Bilirubin (0.0-1.0) mg/dL AST (5-31) U/L ALT (0-31) U/L Alkaline Phosphatase (39-117) U/L Troponin I High Sens 22.5 H* (<3.5-17.0) ng/L Total Protein (6.5-8.0) g/dL Albumin (3.5-5.0) g/dL 04/26/21 Range/Units 20:18 WBC (4.8-10.8) X10*3/uL RBC (4.20-5.50) X10*6/uL Hgb (12.0-16.0) g/dl Hct (37-47) % MCV (80-98) fL MCH (27.0-33.0) pg MCHC (31.0-35.0) g/dl RDW (11.0-16.0) % Plt Count (160-400) X10*3/uL MPV Immature Gran % (Auto) (0.0-0.4) % Neut % (Auto) (45-73) % Lymph % (Auto) (20-40) % Independence % (Auto) (2-11) % Eos % (Auto) (0-4) % Baso % (Auto) (0-2) % Lymph # (Auto) (1.2-4.9) X10*3/uL Independence # (Auto) (0.1-1.2) X10*3/uL Eos # (Auto) (0.0-0.4) X10*3/uL Baso # (Auto) (0.0-0.2) X10*3/uL Abs Immat Gran (auto) (0.00-0.03) X10*3/uL Absolute Neuts (auto) (2.0-8.3) X10*3/uL Absolute Nucleated RBC (0.0-0.012) X10*3/uL Nucleated RBC % (auto) (0.0-0.2) /100WBC Smear Tech's Comments PT (10.8-13.0) SEC INR (0.9-1.1) Sodium (135-145) mmol/L Potassium (3.3-5.1) mmol/L Chloride (96-108) mmol/L Carbon Dioxide (22-29) mmol/L Anion Gap (12-20) BUN (9-16) mg/dL Creatinine (0.5-1.4) mg/dL Estim Creat Clear Calc Estimated GFR Random Glucose (60-115) mg/dL Lactic Acid 0.5 (0.5-2.0) mmol/L Calcium (8.4-10.2) mg/dL Total Bilirubin (0.0-1.0) mg/dL AST (5-31) U/L ALT (0-31) U/L Alkaline Phosphatase (39-117) U/L Troponin I High Sens (<3.5-17.0) ng/L Total Protein (6.5-8.0) g/dL Albumin (3.5-5.0) g/dL Critical Care Time Critical Care Time Critical Care Time: Yes Total Critical Care Time: 60 Attestation: examining pt,reviwing labs,speaking with [facility] consultant ICU Discharge Plan Discharge Clinical Impression: Hypotension, Renal failure, Supratherapeutic INR, Diarrhea Patient Disposition: Admitted As Inpatient Interventions: Admission Worksheet (ED) Last Done: 04/27/21 01:30 Discharge Date/Time: 04/27/21 01:42
[2021-04-26] MEDS: 0.9 % Sodium Chloride 1,000 ML 999 ML IVCONT ×4 (15:03→16:20)
--- NOTE | 2021-04-26 15:16 | PC.NURSE ---
CONTACTED LAB REGARDING LOW BLOOD CULTURE LEVELS DUE TO DEHYDRATION SPOKE TO JEREMY FROM LAB OKAYED TO SEND DOWN DUE TO ETITIOLGY. 50DROPS PER CULTURE 2 SITES. FIRST 1505, SECOND 1515
[2021-04-26 15:38] LABS: Prothrombin Time 129.6 SEC (10.8-13.0)
[2021-04-26 15:42] LABS: INTERNATIONAL NORM RATIO 10.6 (0.9-1.1)
[2021-04-26] MEDS: ondansetron HCL 4 MG/2 ML VIAL IVPUSH (15:43)
[2021-04-26 15:48] LABS: Eosinophils Absolute Auto 0.1 X10*3/uL (0.0-0.4); Eosinophils Percent Auto 0.3 % (0-4); Hemoglobin 12.2 g/dl (12.0-16.0); Lymphocytes Absolute Auto 0.5 X10*3/uL (1.2-4.9); MANUAL DIFF FLAG SCAN; SCAN SMEAR FLAG 1
[2021-04-26 15:50] LABS: Basophils Percent Auto 0.2 % (0-2); Imm Gran Pct Auto 0.6 % (0.0-0.4); Mean Corpuscular HGB Conc 32.1 g/dl (31.0-35.0); Mean Corpuscular Hemoglobin 27.1 pg (27.0-33.0); Mean Corpuscular Volume 84.4 fL (80-98); Monocytes Absolute Auto 1.3 X10*3/uL (0.1-1.2); Monocytes Percent Auto 7.8 % (2-11); Neutrophils Absolute Auto 14.2 X10*3/uL (2.0-8.3); Neutrophils Percent Auto 88.1 % (45-73); PLT CLUMP 1; Red Cell Distribution Width 14.5 % (11.0-16.0)
[2021-04-26 15:53] LABS: PLT ABN DIST 1; White Blood Count 16.1 X10*3/uL (4.8-10.8)
[2021-04-26 16:11] LABS: Alanine Aminotransferase 8 U/L (0-31); Albumin Level 3.5 g/dL (3.5-5.0); Alkaline Phosphatase 104 U/L (39-117); Anion Gap 21 (12-20); Aspartate Amino Transferase 19 U/L (5-31); Bilirubin Total 0.3 mg/dL (0.0-1.0); Blood Urea Nitrogen 57 mg/dL (9-16); Calcium 8.5 mg/dL (8.4-10.2); Carbon Dioxide 17 mmol/L (22-29); Chloride 101 mmol/L (96-108); Creatinine Clr Calc Pharmacy 14.6; Estimated Glomerular Filt Rate 12; Glucose Random 93 mg/dL (60-115); Sodium 135 mmol/L (135-145); Total Protein 6.6 g/dL (6.5-8.0)
[2021-04-26 16:13] LABS: Platelet Count 195 X10*3/uL (160-400); SLIDE REVIEW VERIFIED
[2021-04-26] MEDS: Phytonadione (Vit K1) Oral 10 MG/ML AMPUL 5 MG PO (16:28)
[2021-04-26] MEDS: Potassium Chloride ER 20 MEQ TAB.ER.PRT PO (16:28)
[2021-04-26 16:55] LABS: Troponin-I High Sensitivity 22.5 ng/L (<3.5-17.0)
--- NOTE | 2021-04-26 17:07 | PC.NURSE ---
[facility]
--- NOTE | 2021-04-26 17:09 | PC.NURSE ---
simi nelson from pharmacy 20min eta for vit k drip
[2021-04-26] MEDS: Piperacillin Sodium/Tazobactam 4.5 GM in 0.9 % Sodium Chloride 100 ML IV (17:21)
[2021-04-26] MEDS: vancomycin HCL 1,500 MG in 0.9 % Sodium Chloride 500 ML 333.33 MG IV (17:29)
[2021-04-26] MEDS: Phytonadione (Vit K1) 10 MG in 0.9 % Sodium Chloride 50 ML 51 MG IV (17:38)
[2021-04-26] MEDS: Lactated Ringers 1,000 ML 999 ML IV (17:42)
--- NOTE | 2021-04-26 17:45 | P.CONCC_ITS ---
History of Present Illness Data of Consult Service Date: 04/26/21 Requesting physician: Brown Fair Primary Care Provider: Daniela Chopra MD HPI I was asked by Dr. Fair to see Mrs. Bond bec of hypotension refractory to fluids. Briefly, The patient is a 65 year old female with PMHx of: S/P MVR (mitral valve replacement) (HFpEF) heart failure with preserved ejection fraction w normal RV size, RVSP 38mm. Aortic stenosis (gradients 32/18mm) COPD (chronic obstructive pulmonary disease) Obesity Paroxysmal atrial fibrillation History of sleeve gastrectomy (~2018) Hx of section Meds at home include diltiazem, Lasix, Lisinopril, and Coumadin. On April 15, the patient presented to our ED complaining of sore throat. She underwent a neck CT which showed ?Heterogeneous attenuation asymmetric soft tissue swelling in the right oral pharynx and multiple small right peritonsillar abscesses, largest measuring 1.2 x 0.6 x 1 cm. This tracks inferiorly below the hyoid bone with asymmetric soft tissue swelling adjacent to the hyoid bone and effacement of the right piriform sinus and displacement of the right aryepiglottic fold. The epiglottis and larynx are normal appearing. Bilateral carotid calcification. Question right carotid stenosis. Follow-up elective carotid ultrasound considered. 1 cm groundglass attenuation right upper lobe nodule. Follow-up elective chest CT should also be considered.? The patient denied fever or chills. The patient was offered transfer to [facility] for E[facility] evaluation given the abscess. She was given dexamethasone and antibiotics and felt better after that. She declined transfer. She was discharged with a prescription for Augmentin and follow-up. She tells me that after taking the antibiotics her the throat pain and swelling improved markedly and she basically got all better, except that her voice is still not normal. The patient presented to the emergency department ambulatory with a chief complaint of diarrhea for about 3 days, nausea she states she is unable to keep anything down and she felt very dehydrated. She said she has been to the bathroom so often that her anus hertz. Denied any fever chills chest pain. Initial vital signs in the ED showed a heart rate of 100, blood pressure 70/43, breathing easy, with sat of 97% on room air. Temperature was 98.1 degrees. Exam in the ED was basically unremarkable. Mental status was completely normal. Labs in the ED were notable for white count bumped to 16 (from 8.4 on 04/15), h emoglobin is 12 (baseline 11), PT 129/10.6 (INR was 3.0 on 04/15), BUN and creatinine 57/3.7 (were 16/0.7), bicarb 17 (was 24), lactic acid 1.0, albumin 3.5. The patient was given 3 L of normal saline after which her blood pressure michelle to about 93/45. I was therefore called. I went to see the patient in the ED. On my exam, the patient looks thoroughly well. Heart rate is down to 70s, she is breathing easy, sat is 96% on room air. Last blood pressure is 93/45. Mental status is completely normal and she is making jokes. She was able to accomplish complex movements involving dexterity of her hands. Her voice sounds sounds normal to me, and she is able to say ?eee? with no problem. Abdominal exam is completely negative, even mashing on her epigastrium to do the echo. She has no edema. ECHOCARDIOGRAM for hemodynamic monitoring done at the bedside by me: Image quality: Good. Findings: 1. LV wall thickness normal. 2. LV cavity size is top normal, with normal contractility and no RWMA. EF at least 50-60%. 3. RV size normal. 4. Atria not adeq evaluated. 5. Unable to evaluate AV 6. MV showed no MR or paravalvular leak. 7. Tricuspid valve with normal morphology, at least 1+ TR by color forrest, with CWD jet measuring 2.0m/sec, or gradient of 16mm. 8. Excellent view of IVC, measuring 1.8cm, with maybe 30-40% insp collapse. Estimated CVP 6-8mm. RVSP estimate therefore 22-24mm. I asked the patient if she felt well enough to go home. She said that she felt much better (after the fluids) and would love to go home. She showed me that before she came to the ED, her skin was all shriveled up and now it had good turgor. At my suggestion a Gloria catheter was placed. On my arrival to see the patient a short time later, there was about 100 cc of medium clear yellow urine in the bag. IMPRESSION: 1. Diarrhea. Prob 2? to the abx. A CDiff should be done if not done already. 2. Hypotension. Most likely 2? dehydration. It goes without saying that dehydration secondary to diarrhea can be quite a bit more massive than one would initially think. That could well be the case here, as demonstrated by how much better the patient already feels, by her renal ratio, and by the echo 3. EUGENIO. 2? above. 4. ID. She does not look septic or toxic, and her Quick-SOFA score is 0. Lactate is normal. An argument can be made for not giving her any abx. If I was to give her abx, I would limit it to one dose of gram negative coverage, pending the blood cultures (bec she has no infection in her urine or her lungs). (There is no reason to give her vanco or Zosyn.) I have seen multiple patients with ?asymptomatic? hypotension (ie hypotension with no other s/sx of sepsis) 2? bacteremia, and that could possibly be the case here, in which case the etiology would almost certainly be bacterial translocation. 5. Peritonsillar abscesses. Given that her throat pain is gone, these are almost certainly resolved. That is certainly not the cause of her current hypotension. However, given that her voice is still not normal, according to her, I would suggest a repeat CT scan. No IV contrast. At this time, the echo suggests that she would be fluid responsive. I would give her another liter of LR (no more normal saline), and then repeat her chemistries. I would also suggest a dose of hydrocortisone 100 mg. No indication for intensive care at this time. Please call back if she continues hypotensive. Time: 80 min. [facility] Past Medical History Medical History (HFpEF) heart failure with preserved ejection fraction Aortic stenosis COPD (chronic obstructive pulmonary disease) Obesity Paroxysmal atrial fibrillation Family History Family History Father No problems noted. Mother CVD (cardiovascular disease) Surgical History Surgical History History of sleeve gastrectomy (~2017) Hx of section Hx of mitral valve replacement (~2004) Hx of transesophageal echocardiography (SHELIA) for monitoring (~2015) S/P MVR (mitral valve replacement) Social History Social History (Updated 04/15/21 @ 06:41 by Kristin Banda DO) Alcohol intake: never Patient Tobacco Use Status: Never used Tobacco Use of substances other than those prescribed or required for medical reasons: No Advance Directives: Yes Advance Directives Information Provided: Yes Advance Directives on File: No Meds Allergies Allergy/AdvReac Type Severity Reaction Status Date / Time PAPER TAPE Allergy Unknown REDNESS Uncoded 07/14/20 17:53 peper type Allergy Unknown rash Uncoded 09/09/19 00:00 Active Medications: Current Medications Generic Name Dose Route Start Last Admin Trade Name Freq PRN Reason Stop Dose Admin Vancomycin HCl 1,500 mg/ 500 mls @ 333.333 mls/hr 04/26/21 16:36 04/26/21 17:29 Sodium Chloride IV 04/26/21 18:05 333.33 mls/hr ONCE ONE Administration Phytonadione 10 mg/ Sodium 51 mls @ 51 mls/hr 04/26/21 16:49 04/26/21 17:38 Chloride IV 04/26/21 17:48 51 mls/hr ONCE STA Administration Lactated Ringer's 1,000 mls @ 999 mls/hr 04/26/21 17:45 04/26/21 17:42 Lr IV 04/26/21 18:45 999 mls/hr .[id number] LEONORA Administration Home Medications Medication Instructions Recorded Confirmed Last Taken Type calcium citrate 315 mg-vitamin D3 1 tab PO DAILY 09/01/20 03/08/21 Unknown History 5 mcg (200 unit) tablet ferrous fumarate 325 mg (106 mg 325 mg PO BID 09/01/20 03/08/21 Unknown History iron) tablet furosemide 20 mg tablet 20 mg PO DAILY 09/01/20 03/08/21 Unknown History levothyroxine 25 mcg tablet 25 mcg PO DAILY 09/01/20 03/08/21 Unknown History lisinopril 5 mg tablet 5 mg PO DAILY 09/01/20 03/08/21 Unknown History mometasone-formoterol HFA 100 2 puff INHALATION BID 09/01/20 03/08/21 Unknown History mcg-5 mcg/actuation aerosol inhaler tiotropium bromide 2.5 2 puff INHALATION BEDTIME 09/01/20 03/08/21 Unknown History mcg/actuation mist for inhalation vitamin B complex 1 tab PO DAILY 09/01/20 03/08/21 Unknown History sertraline 50 mg tablet 200 mg PO DAILY tab 03/08/21 03/08/21 Unknown History Physical Exam Vital Signs: Vital Signs: Last Vital Signs Temp 97.6 F 04/26/21 16:44 Pulse 79 04/26/21 16:44 Resp 20 04/26/21 16:44 BP 93/45 L 04/26/21 16:44 Pulse Ox 94 04/26/21 16:44 Body Mass Index 31.1 Results Labs CBC & Chem 7: 04/26/21 15:19 04/26/21 15:19 Labs: Short CBC 04/26/21 Range/Units 15:19 WBC 16.1 H (4.8-10.8) X10*3/uL Hgb 12.2 (12.0-16.0) g/dl Hct 38.0 (37-47) % Plt Count 195 (160-400) X10*3/uL BMP 04/26/21 15:19 Sodium 135 Potassium 4.0 Chloride 101 Carbon Dioxide 17 L BUN 57 H D Creatinine 3.73 H Calcium 8.5 Liver Function 04/26/21 Range/Units 15:19 Total Bilirubin 0.3 (0.0-1.0) mg/dL AST 19 (5-31) U/L ALT 8 (0-31) U/L Alkaline Phosphatase 104 (39-117) U/L Albumin 3.5 (3.5-5.0) g/dL
[2021-04-26 20:48] LABS: Lactic Acid 0.5 mmol/L (0.5-2.0)
[2021-04-26 20:52] LABS: Anion Gap 14 (12-20); Blood Urea Nitrogen 47 mg/dL (9-16); Calcium 7.5 mg/dL (8.4-10.2); Carbon Dioxide 16 mmol/L (22-29); Chloride 111 mmol/L (96-108); Creatinine Clr Calc Pharmacy 24.1; Estimated Glomerular Filt Rate 22; Glucose Random 95 mg/dL (60-115); Potassium 3.8 mmol/L (3.3-5.1); Sodium 137 mmol/L (135-145)
--- NOTE | 2021-04-26 22:01 | PHA.MEDREC ---
MED REC COMPLETE, NO ISSUES Pharmacy Consult ? Medication Reconciliation Pharmacy has completed the medication reconciliation.
[2021-04-26 23:33] LABS: COVID-19 Test Negative (Negative); IDNOW Serial# 9DD0AD1C
[2021-04-27] VITALS (8 sets, daily range): BP systolic 92–112; BP diastolic 48–60; PULSE 74–91; RESP 17–22; TEMP 36.1–37.4; O2SAT 93–97; BMI 34.7
[2021-04-27 00:14] LABS: Leukocytes Stool Qualitative NEGATIVE (NEGATIVE)
[2021-04-27 00:35] LABS: CDiff Gene PCR POSITIVE (Negative)
[2021-04-27 01:06] LABS: CDiff Toxin Positive (Negative)
--- NOTE | 2021-04-27 01:08 | PC.NURSE ---
Per lab patient confirmed cdiff at this time.
[2021-04-27 01:09] LABS: CDIFF Internal ctrl Dots and bkg OK (V)
[2021-04-27] MEDS: Lactated Ringers 1,000 ML 80 ML IVCONT ×2 (01:14→18:37)
[2021-04-27] MEDS: 0.9 % Sodium Chloride Flush 3 ML SYRINGE IVFLUSH ×4 (01:14→20:43)
[2021-04-27] MEDS: vancomycin HCL 125 MG CAPSULE PO ×4 (02:23→20:43)
[2021-04-27] MEDS: Zolpidem Tartrate 5 MG TABLET PO ×2 (02:28→20:43)
--- NOTE | 2021-04-27 06:40 | PM.IMHP ---
History of Present Illness Date of Service: 04/26/21 Chief Complaint: diarrhea this is a 65-year-old female with past medical history of COPD, heart failure, aortic stenosis, severe gastrectomy, mitral valve replacement, AFib, who presented to the hospital with complaints of diarrhea since Saturday. Patient reports that she has countless episode of diarrhea since Saturday. She was recently treated with Augmentin for tonsillar abscess and finished her antibiotics on Saturday developed diarrhea the next day. Denies abdominal pain, some nausea with no vomiting, reports significant loss of appetite where she has not been able to keep anything down due to nausea. Has chills no fever, decreased urine output with no urgency or dysuria. She was trying to keep about 20 oz of water a day has no shortness of breath, no cough, no chest pain. On arrival vitals were significant for temp of 98.1?, heart rate of 100, respiratory rate of 16, blood pressure 70/40 satting 97% on room air Labs are significant for WBC of 16.1, PT of 129, INR of 10.6, BUN of 57, creatinine of 3.73 With baseline around 0.868, high sensitivity troponin of 22.5, C diff positive, soft tissue neck CT showed interval improvement of the tonsillar abscess with resolution of abnormal thickening of the right tonsillar wall. Previously presumed peritonsillar abscess is no longer seen on the CT patient receive 4 L of IV fluids in the ED, with improvement in her blood pressure and is being admitted for further management. Review of Systems Review of Systems: Yes all other systems are reviewed and are negative [facility] Medical History (HFpEF) heart failure with preserved ejection fraction Aortic stenosis COPD (chronic obstructive pulmonary disease) Obesity Paroxysmal atrial fibrillation Family History Father No problems noted. Mother CVD (cardiovascular disease) Surgical History History of sleeve gastrectomy (~2017) Hx of section Hx of mitral valve replacement (~2004) Hx of transesophageal echocardiography (SHELIA) for monitoring (~2015) S/P MVR (mitral valve replacement) Social History Household Members: Family Housing: House Do you presently have visiting nurse or other home services: No Alcohol intake: never Patient Tobacco Use Status: Former Tobacco user Tobacco use type: Cigarette Use of substances other than those prescribed or required for medical reasons: No Have you been hit, kicked, punched, or otherwise hurt by someone within the past year? If so, by whom?: No Do you feel safe in your current relationship?: No Current Relationship Is there a partner from a previous relationship who is making you feel unsafe now?: No Are you made to feel afraid or neglected: No Advance Directives: Yes Advance Directives Information Provided: Yes Advance Directives on File: No Advance Directives Date on File: 04/27/21 Do you have thoughts of harming others: None Do you have a plan to hurt others: No Plan Recently lost weight without trying: No Nutrition Risks: No Nutritional Risk Patient : No : No Poor oral hygiene: No Meds Allergies Allergy/AdvReac Type Severity Reaction Status Date / Time PAPER TAPE Allergy Unknown REDNESS Uncoded 07/14/20 17:53 peper type Allergy Unknown rash Uncoded 09/09/19 00:00 Active Medications: Current Medications Generic Name Dose Route Start Last Admin Trade Name Freq PRN Reason Stop Dose Admin Acetaminophen 650 mg 04/26/21 22:19 Acetaminophen 325 Mg Tablet PO Q6H PRN Pain, Mild (Pain Scale 1-3) Albuterol Sulfate 2 puff 04/27/21 00:01 Albuterol Sulfate 90 Mcg 8 Gm Inhaler INHALE Q4H PRN Respiratory Distress Atorvastatin Calcium 20 mg 04/27/21 09:00 Atorvastatin Calcium 20 Mg Tablet PO DAILY LEONORA Diltiazem HCl 240 mg 04/27/21 09:00 Diltiazem Hcl Cd 240 Mg Cap.Er.Deg PO DAILY [facility] Protocol Docusate Sodium 100 mg 04/26/21 22:19 Docusate Sodium 100 Mg Capsule PO DAILY PRN Constipation Fluticasone/Vilanterol 1 puff 04/27/21 08:00 Fluticasone/Vilanterol 100/25 Blst.W.Dev INHALE RDAILY LEONORA Lactated Ringer's 1,000 mls @ 80 mls/hr 04/26/21 23:45 04/27/21 01:14 Lr IVCONT 80 mls/hr .[id number] LEONORA Administration Lisinopril 5 mg 04/27/21 09:00 Lisinopril 5 Mg Tablet PO DAILY [facility] Protocol Ondansetron HCl 4 mg 04/26/21 22:19 Ondansetron Hcl 4 Mg/2 Ml Vial IVPUSH Q8H PRN Nausea and Vomiting Pharmacy Consult 1 each 04/26/21 20:56 Consult Rx Perform Med Rec MISCELLANE ONCE PRN Consult order Sertraline HCl 200 mg 04/27/21 09:00 Sertraline Hcl 100 Mg Tablet PO DAILY [facility] Sodium Chloride 3 ml 04/27/21 00:00 04/27/21 01:14 0.9 % Sodium Chloride Flush 3 Ml Syringe IVFLUSH 3 ml QSHIFT [facility] Administration Tiotropium [place] 1 puff 04/27/21 08:00 Tiotropium [place] 18 Mcg Cap.W.Dev INHALE RDAILY [facility] Vancomycin HCl 125 mg 04/27/21 02:00 04/27/21 02:23 Vancomycin Hcl 125 Mg Capsule PO 125 mg Q6H [facility] Administration Zolpidem Tartrate 5 mg 04/27/21 00:01 04/27/21 02:28 Zolpidem Tartrate 5 Mg Tablet PO 5 mg BEDTIME PRN Administration Sleep Home Medications Medication Instructions Recorded Confirmed Last Taken Type furosemide 20 mg tablet 40 mg PO DAILY@1700 09/01/20 04/26/21 Unknown History levothyroxine 25 mcg tablet 25 mcg PO DAILY 09/01/20 04/26/21 04/26/21 History lisinopril 5 mg tablet 5 mg PO DAILY 09/01/20 04/26/21 04/26/21 History mometasone-formoterol HFA 100 2 puff INHALATION BID 09/01/20 04/26/21 04/26/21 History mcg-5 mcg/actuation aerosol inhaler tiotropium bromide 2.5 2 puff INHALATION DAILY 09/01/20 04/26/21 04/26/21 History mcg/actuation mist for inhalation albuterol sulfate [ProAir HFA] 2 puff INHALATION Q4-6H PRN 04/26/21 04/26/21 Unknown History atorvastatin 20 mg PO DAILY 04/26/21 04/26/21 04/26/21 History ferrous sulfate 325 mg PO 1700,1900,2100 04/26/21 04/26/21 Unknown History sertraline 200 mg PO DAILY 04/26/21 04/26/21 04/26/21 History warfarin 7.5 mg PO SUTUTHSA@1800 04/26/21 04/26/21 04/25/21 History warfarin 10 mg PO MOWEFR@1800 04/26/21 04/26/21 04/26/21 History zolpidem 5 mg PO BEDTIME PRN 04/26/21 04/26/21 Unknown History Physical Exam Vital Signs and Narrative: Vital Signs: Last Vital Signs Temp 97 F 04/27/21 04:00 Pulse 86 04/27/21 04:00 Resp 18 04/27/21 04:00 BP 92/51 L 04/27/21 04:00 Pulse Ox 93 04/27/21 04:00 Body Mass Index 34.7 Const: General: cooperative and no acute distress Orientation/consciousness: patient oriented x3 Eyes: General: appearance normal, both eyes and all related structures Resp: Effort & Inspection: normal respiratory effort and able to speak in complete sentences Auscultation: clear to auscultation bilaterally Cardio: Rate: regular rate Rhythm: regular rhythm GI: Palpation (GI): Soft to palpation Auscultation: normal bowel sounds Skin: General skin exam: no rashes or lesions noted Neuro: General: patient oriented x3 Cognition (Neuro): normal cognition Extrem: General: Yes normal to inspection and Yes no pedal edema Results Labs CBC and Chem 7: 04/26/21 15:19 04/26/21 20:18 Labs: Laboratory Results - last 24 hr 04/26/21 04/26/21 04/26/21 15:19 15:19 15:19 MCV 84.4 MCH 27.1 MCHC 32.1 RDW 14.5 Plt Count 195 MPV Not Reportable Immature Gran % (Auto) 0.6 H Neut % (Auto) 88.1 H Lymph % (Auto) 3.0 L [place] % (Auto) 7.8 Eos % (Auto) 0.3 Baso % (Auto) 0.2 Lymph # (Auto) 0.5 L [place] # (Auto) 1.3 H Eos # (Auto) 0.1 Baso # (Auto) 0.0 Abs Immat Gran (auto) 0.10 H Absolute Neuts (auto) 14.2 H Absolute Nucleated RBC 0.000 Nucleated RBC % (auto) 0.0 Smear Tech's Comments VERIFIED PT 129.6 H D INR 10.6 H* D Anion Gap 21 H Estim Creat Clear Calc 14.6 Estimated GFR 12 Random Glucose 93 Lactic Acid Calcium 8.5 Total Bilirubin 0.3 AST 19 ALT 8 Alkaline Phosphatase 104 Troponin I High Sens Total Protein 6.6 Albumin 3.5 Stool Leukocytes, Qual C. difficile Tox B Gene C. difficile Toxin A&B C. difficile Interpret COVID-19 (ROS) COVIDJimubox 04/26/21 04/26/21 04/26/21 15:19 16:15 20:18 MCV MCH MCHC RDW Plt Count MPV Immature Gran % (Auto) Neut % (Auto) Lymph % (Auto) [place] % (Auto) Eos % (Auto) Baso % (Auto) Lymph # (Auto) [place] # (Auto) Eos # (Auto) Baso # (Auto) Abs Immat Gran (auto) Absolute Neuts (auto) Absolute Nucleated RBC Nucleated RBC % (auto) Smear Tech's Comments PT INR Anion Gap 14 Estim Creat Clear Calc 24.1 Estimated GFR 22 Random Glucose 95 Lactic Acid 1.0 Calcium 7.5 L D Total Bilirubin AST ALT Alkaline Phosphatase Troponin I High Sens 22.5 H* Total Protein Albumin Stool Leukocytes, Qual C. difficile Tox B Gene C. difficile Toxin A&B C. difficile Interpret COVID-19 (ROS) [id number] 04/26/21 04/26/21 04/26/21 20:18 22:51 22:51 MCV MCH MCHC RDW Plt Count MPV Immature Gran % (Auto) Neut % (Auto) Lymph % (Auto) [place] % (Auto) Eos % (Auto) Baso % (Auto) Lymph # (Auto) [place] # (Auto) Eos # (Auto) Baso # (Auto) Abs Immat Gran (auto) Absolute Neuts (auto) Absolute Nucleated RBC Nucleated RBC % (auto) Smear Tech's Comments PT INR Anion Gap Estim Creat Clear Calc Estimated GFR Random Glucose Lactic Acid 0.5 Calcium Total Bilirubin AST ALT Alkaline Phosphatase Troponin I High Sens Total Protein Albumin Stool Leukocytes, Qual NEGATIVE C. difficile Tox B Gene POSITIVE A* C. difficile Toxin A&B Positive A C. difficile Interpret SEE NOTE COVID-19 (ROS) COVIDJimubox 04/26/21 22:54 MCV MCH MCHC RDW Plt Count MPV Immature Gran % (Auto) Neut % (Auto) Lymph % (Auto) [place] % (Auto) Eos % (Auto) Baso % (Auto) Lymph # (Auto) [place] # (Auto) Eos # (Auto) Baso # (Auto) Abs Immat Gran (auto) Absolute Neuts (auto) Absolute Nucleated RBC Nucleated RBC % (auto) Smear Tech's Comments PT INR Anion Gap Estim Creat Clear Calc Estimated GFR Random Glucose Lactic Acid Calcium Total Bilirubin AST ALT Alkaline Phosphatase Troponin I High Sens Total Protein Albumin Stool Leukocytes, Qual C. difficile Tox B Gene C. difficile Toxin A&B C. difficile Interpret COVID-19 (ROS) Negative COVID-19 Clin Com See Note Imaging Radiologist's Impressions: Impressions Chest X-Ray 04/26/21 14:41 IMPRESSION: No evidence for acute disease in the chest. Soft Tissue Neck CT 04/26/21 17:31 IMPRESSION: Interval improvement compared to the previous study with resolution of abnormal thickening of the right tonsillar wall. Previous presumed peritonsillar abscess is no longer seen on this limited noncontrast study. Submucosal edema in the inferior right pharyngeal wall partially effacing the right vallecula has improved. Submucosal edema in the epiglottis and right aryepiglottic fold have resolved. No cervical adenopathy. Mild residual soft tissue stranding in the retropharyngeal space without a discrete fluid collection. Stable nonspecific groundglass density in the right upper lobe. A follow-up CT scan of the chest is recommended in order to ensure resolution of this imaging finding. Assessment and Plan (1) Hypotension: Status: Acute (2) EUGENIO (acute kidney injury): Status: Acute (3) Supratherapeutic INR: Status: Acute (4) Diarrhea: Status: Acute (5) C. difficile diarrhea: Status: Acute (6) Leukocytosis: Status: Acute this is a 65-year-old female with past medical history of a flutter on Coumadin, CHF, hypertension, MVR who presents to the hospital diarrhea # hypotension - most likely secondary to dehydration on less likely secondary to sepsis - leukocytosis most likely due to C diff - patient receive 4 L of fluids with improvement in her blood pressure - no lactic acidosis - monitor blood pressure - home antihypertensives # C diff diarrhea - was recently on antibiotics for peritonsillar abscess - C diff PCR and antigen positive - has leukocytosis - will start on p.o. vancomycin 125 q.6 hours # supratherapeutic INR - on Coumadin for history of AFib - received IV K while in the ED - follow PT INR # EUGENIO - secondary to dehydration - IV fluids - follow BMP - hold nephrotoxic meds # CHF - does not appear to be in exacerbation - will need fluids for EUGENIO as well as hypotension - will hold furosemide given the EUGENIO - monitor volume/respiratory status # AFib - patient on diltiazem but given her significant hypotension will hold her next dose - can resume diltiazem once blood pressure is slightly more stable - hold warfarin in the setting of supratherapeutic an a # hypothyroidism - continue levothyroxine DVT prophylaxis: Coumadin Quality Stroke Does the patient have a stroke diagnosis?: No VTE Prior VTE?: No VTE Risk Level:: Medical - moderate - high VTE Device Contraindication: Treatment Not Indicated VTE Drug Contraindication: N/A - Med Ordered
[2021-04-27 06:53] LABS: MANUAL DIFF FLAG NO
[2021-04-27 07:03] LABS: Basophils Percent Auto 0.2 % (0-2); Eosinophils Absolute Auto 0.1 X10*3/uL (0.0-0.4); Eosinophils Percent Auto 0.8 % (0-4); Hematocrit 34.2 % (37-47); Imm Gran Abs Auto 0.06 X10*3/uL (0.00-0.03); Imm Gran Pct Auto 0.5 % (0.0-0.4); Lymphocytes Absolute Auto 0.4 X10*3/uL (1.2-4.9); Lymphocytes Percent Auto 3.6 % (20-40); Mean Corpuscular HGB Conc 32.2 g/dl (31.0-35.0); Mean Corpuscular Hemoglobin 27.5 pg (27.0-33.0); Mean Corpuscular Volume 85.5 fL (80-98); Mean Platelet Volume 12.7 fL (9.4-12.3); Monocytes Absolute Auto 0.9 X10*3/uL (0.1-1.2); Monocytes Percent Auto 7.9 % (2-11); Neutrophils Absolute Auto 10.4 X10*3/uL (2.0-8.3); Platelet Count 207 X10*3/uL (160-400); Red Cell Distribution Width 14.6 % (11.0-16.0)
[2021-04-27 07:08] LABS: INTERNATIONAL NORM RATIO 1.7 (0.9-1.1)
--- NOTE | 2021-04-27 07:23 | PC.NURSE ---
Patient had gabriel catheter placed in ED. Removed gabriel at 0600 this morning. Patient voided 100cc right after removal of gabriel.
[2021-04-27 07:40] LABS: Anion Gap 12 (12-20); Blood Urea Nitrogen 37 mg/dL (9-16); Carbon Dioxide 18 mmol/L (22-29); Chloride 111 mmol/L (96-108); Creatinine Clr Calc Pharmacy 51.6; Estimated Glomerular Filt Rate 49; Glucose Random 91 mg/dL (60-115); Sodium 137 mmol/L (135-145)
[2021-04-27 07:49] LABS: Troponin-I High Sensitivity 11.6 ng/L (<3.5-17.0)
[2021-04-27] MEDS: Fluticasone/Vilanterol 100/25 BLST.W.DEV 1 PUFF INHALE (08:12)
[2021-04-27] MEDS: Sertraline HCL 100 MG TABLET 200 MG PO (08:45)
[2021-04-27] MEDS: Atorvastatin Calcium 20 MG TABLET PO (08:45)
--- NOTE | 2021-04-27 08:59 | MHC.CM.PN ---
Female 65 DX EUGENIO CDIFF. Patient is independent. She lives with family HCP on file. DP home no services family will provide transportation. CM will follow for a change in discharge needs.
--- NOTE | 2021-04-27 14:52 | P.PNIM_ITS ---
Subjective Subjective Date of Service: 04/27/21 Interval History: the patient was seen and evaluated this morning Laying in bed, feels better overall but complaining of diarrhea episodes kidney function and INR improving Denies any fever, chills or shortness of breath No reported other overnight events. Systemic review: No fever, chills but has generalized weakness No chest pain, palpitation No shortness of breath or coughing No abdominal pain, nausea or vomiting But reporting episodes of diarrhea No urinary symptoms No any rash or wounds Physical Exam Vital Signs: Vital Signs: Last Vital Signs Temp 98.2 F 04/27/21 11:19 Pulse 91 04/27/21 11:19 Resp 20 04/27/21 11:19 BP 105/58 L 04/27/21 11:19 Pulse Ox 94 04/27/21 11:19 Body Mass Index 34.7 Const: Other: Constitutional : Alert, oriented Neck : Normal inspection, Supple Cardiovascular : RRR, S1 S2, no lower extremity edema Respiratory : Good bilateral air entry, no crackles, wheezes or rhonchi Gastrointestinal: soft, lax, Normal bowel sounds, mild generalized tenderness with no surgical signs a Skin : Warm/Dry Neurological : Alert & oriented x3, No focal deficit Objective Data Current Medications Generic Name Dose Route Start Last Admin Trade Name Freq PRN Reason Stop Dose Admin Acetaminophen 650 mg 04/26/21 22:19 Acetaminophen 325 Mg Tablet PO Q6H PRN Pain, Mild (Pain Scale 1-3) Albuterol Sulfate 2 puff 04/27/21 00:01 Albuterol Sulfate 90 Mcg 8 Gm Inhaler INHALE Q4H PRN Respiratory Distress Atorvastatin Calcium 20 mg 04/27/21 09:00 04/27/21 08:45 Atorvastatin Calcium 20 Mg Tablet PO 20 mg DAILY LEONORA Administration Docusate Sodium 100 mg 04/26/21 22:19 Docusate Sodium 100 Mg Capsule PO DAILY PRN Constipation Fluticasone/Vilanterol 1 puff 04/27/21 08:00 04/27/21 08:12 Fluticasone/Vilanterol 100/25 Blst.W.Dev INHALE 1 puff RDAILY LEONORA Administration Lactated Ringer's 1,000 mls @ 80 mls/hr 04/26/21 23:45 04/27/21 12:54 Lr IVCONT Not Given .[id number] LEONORA Ondansetron HCl 4 mg 06/30/21 22:19 Ondansetron Hcl 4 Mg/2 Ml Vial IVPUSH Q8H PRN Nausea and Vomiting Pharmacy Consult 1 each 04/26/21 20:56 Consult Rx Perform Med Rec MISCELLANE ONCE PRN Consult order Sertraline HCl 200 mg 04/27/21 09:00 04/27/21 08:45 Sertraline Hcl 100 Mg Tablet PO 200 mg DAILY LEONORA Administration Sodium Chloride 3 ml 04/27/21 00:00 04/27/21 08:47 0.9 % Sodium Chloride Flush 3 Ml Syringe IVFLUSH 3 ml QSHIFT LEONORA Administration Tiotropium [place] 1 puff 04/27/21 08:00 04/27/21 08:12 Tiotropium [place] 18 Mcg Cap.W.Dev INHALE 1 puff RDAILY LEONORA Administration Vancomycin HCl 125 mg 04/27/21 02:00 04/27/21 14:25 Vancomycin Hcl 125 Mg Capsule PO 125 mg Q6H LEONORA Administration Zolpidem Tartrate 5 mg 04/27/21 00:01 04/27/21 02:28 Zolpidem Tartrate 5 Mg Tablet PO 5 mg BEDTIME PRN Administration Sleep Labs CBC & Chem 7: 04/27/21 05:48 04/27/21 05:48 Labs: Laboratory Results - last 24 hr 04/26/21 04/26/21 04/26/21 15:19 15:19 15:19 WBC 16.1 H RBC 4.50 Hgb 12.2 Hct 38.0 MCV 84.4 MCH 27.1 MCHC 32.1 RDW 14.5 Plt Count 195 MPV Not Reportable Immature Gran % (Auto) 0.6 H Neut % (Auto) 88.1 H Lymph % (Auto) 3.0 L Yell % (Auto) 7.8 Eos % (Auto) 0.3 Baso % (Auto) 0.2 Lymph # (Auto) 0.5 L Yell # (Auto) 1.3 H Eos # (Auto) 0.1 Baso # (Auto) 0.0 Abs Immat Gran (auto) 0.10 H Absolute Neuts (auto) 14.2 H Absolute Nucleated RBC 0.000 Nucleated RBC % (auto) 0.0 Smear Tech's Comments VERIFIED PT 129.6 H D INR 10.6 H* D Sodium 135 Potassium 4.0 Chloride 101 Carbon Dioxide 17 L Anion Gap 21 H BUN 57 H D Creatinine 3.73 H Estim Creat Clear Calc 14.6 Estimated GFR 12 Random Glucose 93 Lactic Acid Calcium 8.5 Total Bilirubin 0.3 AST 19 ALT 8 Alkaline Phosphatase 104 Troponin I High Sens Total Protein 6.6 Albumin 3.5 Stool Leukocytes, Qual C. difficile Tox B Gene C. difficile Toxin A&B C. difficile Interpret COVID-19 (ROS) COVID-19 Clin Com 04/26/21 04/26/21 04/26/21 15:19 16:15 20:18 WBC RBC Hgb Hct MCV MCH MCHC RDW Plt Count MPV Immature Gran % (Auto) Neut % (Auto) Lymph % (Auto) Yell % (Auto) Eos % (Auto) Baso % (Auto) Lymph # (Auto) Yell # (Auto) Eos # (Auto) Baso # (Auto) Abs Immat Gran (auto) Absolute Neuts (auto) Absolute Nucleated RBC Nucleated RBC % (auto) Smear Tech's Comments PT INR Sodium 137 Potassium 3.8 Chloride 111 H Carbon Dioxide 16 L Anion Gap 14 BUN 47 H Creatinine 2.27 H Estim Creat Clear Calc 24.1 Estimated GFR 22 Random Glucose 95 Lactic Acid 1.0 Calcium 7.5 L D Total Bilirubin AST ALT Alkaline Phosphatase Troponin I High Sens 22.5 H* Total Protein Albumin Stool Leukocytes, Qual C. difficile Tox B Gene C. difficile Toxin A&B C. difficile Interpret COVID-19 (ROS) COVID-19 Clin Com 04/26/21 04/26/21 04/26/21 20:18 22:51 22:51 WBC RBC Hgb Hct MCV MCH MCHC RDW Plt Count MPV Immature Gran % (Auto) Neut % (Auto) Lymph % (Auto) Yell % (Auto) Eos % (Auto) Baso % (Auto) Lymph # (Auto) Yell # (Auto) Eos # (Auto) Baso # (Auto) Abs Immat Gran (auto) Absolute Neuts (auto) Absolute Nucleated RBC Nucleated RBC % (auto) Smear Tech's Comments PT INR Sodium Potassium Chloride Carbon Dioxide Anion Gap BUN Creatinine Estim Creat Clear Calc Estimated GFR Random Glucose Lactic Acid 0.5 Calcium Total Bilirubin AST ALT Alkaline Phosphatase Troponin I High Sens Total Protein Albumin Stool Leukocytes, Qual NEGATIVE C. difficile Tox B Gene POSITIVE A* C. difficile Toxin A&B Positive A C. difficile Interpret SEE NOTE COVID-19 (ROS) COVID-19 [employer] 04/26/21 04/27/21 04/27/21 22:54 05:48 05:48 WBC 12.0 H RBC 4.00 L Hgb 11.0 L Hct 34.2 L MCV 85.5 MCH 27.5 MCHC 32.2 RDW 14.6 Plt Count 207 MPV 12.7 H Immature Gran % (Auto) 0.5 H Neut % (Auto) 87.0 H Lymph % (Auto) 3.6 L Yell % (Auto) 7.9 Eos % (Auto) 0.8 Baso % (Auto) 0.2 Lymph # (Auto) 0.4 L Yell # (Auto) 0.9 Eos # (Auto) 0.1 Baso # (Auto) 0.0 Abs Immat Gran (auto) 0.06 H Absolute Neuts (auto) 10.4 H Absolute Nucleated RBC 0.000 Nucleated RBC % (auto) 0.0 Smear Tech's Comments PT INR Sodium 137 Potassium 4.0 Chloride 111 H Carbon Dioxide 18 L Anion Gap 12 BUN 37 H Creatinine 1.12 Estim Creat Clear Calc 51.6 Estimated GFR 49 Random Glucose 91 Lactic Acid Calcium 8.0 L D Total Bilirubin AST ALT Alkaline Phosphatase Troponin I High Sens Total Protein Albumin Stool Leukocytes, Qual C. difficile Tox B Gene C. difficile Toxin A&B C. difficile Interpret COVID-19 (ROS) Negative COVID-19 [employer] See Note 04/27/21 04/27/21 05:48 05:48 WBC RBC Hgb Hct MCV MCH MCHC RDW Plt Count MPV Immature Gran % (Auto) Neut % (Auto) Lymph % (Auto) Yell % (Auto) Eos % (Auto) Baso % (Auto) Lymph # (Auto) Yell # (Auto) Eos # (Auto) Baso # (Auto) Abs Immat Gran (auto) Absolute Neuts (auto) Absolute Nucleated RBC Nucleated RBC % (auto) Smear Tech's Comments PT 20.0 H D INR 1.7 H Sodium Potassium Chloride Carbon Dioxide Anion Gap BUN Creatinine Estim Creat Clear Calc Estimated GFR Random Glucose Lactic Acid Calcium Total Bilirubin AST ALT Alkaline Phosphatase Troponin I High Sens 11.6 Total Protein Albumin Stool Leukocytes, Qual C. difficile Tox B Gene C. difficile Toxin A&B C. difficile Interpret COVID-19 (ROS) COVID-19 Clin Com Microbiology Microbiology Results: Microbiology 04/26/21 22:51 Stool Culture - Preliminary Stool Culture in progress. Quality Stroke Does the patient have a stroke diagnosis?: No VTE Prior VTE?: No VTE Risk Level:: Medical - moderate - high VTE Device Contraindication: Treatment Not Indicated VTE Drug Contraindication: N/A - Med Ordered Assessment and Plan (1) Hypotension: Status: Acute (2) EUGENIO (acute kidney injury): Status: Acute (3) Supratherapeutic INR: Status: Acute (4) Diarrhea: Status: Acute (5) C. difficile diarrhea: Status: Acute (6) Leukocytosis: Status: Acute Assessment and Plan: this is a 65-year-old female with past medical history of a flutter on Coumadin, CHF, hypertension, MVR who presents to the hospital diarrhea # hypotension improving but still running low leukocytosis most likely due to C diff continue IV fluids Hold blood pressure medications # C diff diarrhea C diff PCR and antigen positive continue p.o. vancomycin 125 q.6 hours day 2 # supratherapeutic INR on Coumadin for history of AFib received IV K while in the ED INR 1.2 restarted on warfarin # EUGENIO improving Continue IV fluids follow BMP hold nephrotoxic meds # CHF does not appear to be in exacerbation hold furosemide given the EUGENIO monitor volume/respiratory status # AFib patient on diltiazem but given her significant hypotension will hold for now can resume diltiazem once blood pressure is slightly more stable restarted warfarin # hypothyroidism continue levothyroxine DVT prophylaxis: Coumadin for the
[2021-04-27] MEDS: Warfarin Sodium 7.5 MG TABLET PO (20:42)
[2021-04-28] VITALS (8 sets, daily range): BP systolic 107–123; BP diastolic 49–68; PULSE 68–98; RESP 17–24; TEMP 36.2–37.1; O2SAT 93–97; BMI 33.7
[2021-04-28] MEDS: vancomycin HCL 125 MG CAPSULE PO ×4 (02:20→21:30)
[2021-04-28] MEDS: Lactated Ringers 1,000 ML 80 ML IVCONT ×2 (05:59→17:48)
[2021-04-28 06:06] LABS: Hematocrit 32.1 % (37-47); Hemoglobin 10.2 g/dl (12.0-16.0); Mean Corpuscular HGB Conc 31.8 g/dl (31.0-35.0); Mean Corpuscular Hemoglobin 27.1 pg (27.0-33.0); Mean Corpuscular Volume 85.1 fL (80-98); Mean Platelet Volume 12.5 fL (9.4-12.3); Platelet Count 193 X10*3/uL (160-400); Red Blood Count 3.77 X10*6/uL (4.20-5.50); Red Cell Distribution Width 14.6 % (11.0-16.0); White Blood Count 7.7 X10*3/uL (4.8-10.8)
[2021-04-28 06:16] LABS: INTERNATIONAL NORM RATIO 1.9 (0.9-1.1); Prothrombin Time 23.1 SEC (10.8-13.0)
[2021-04-28 07:07] LABS: Anion Gap 14 (12-20); Blood Urea Nitrogen 14 mg/dL (9-16); Calcium 7.9 mg/dL (8.4-10.2); Carbon Dioxide 19 mmol/L (22-29); Chloride 111 mmol/L (96-108); Creatinine Clr Calc Pharmacy 91.9; Estimated Glomerular Filt Rate > 60; Glucose Random 90 mg/dL (60-115); Potassium 3.7 mmol/L (3.3-5.1); Sodium 140 mmol/L (135-145)
[2021-04-28 07:11] LABS: Glucose, Whole Blood 91 mg/dL (60-115)
[2021-04-28] MEDS: Fluticasone/Vilanterol 100/25 BLST.W.DEV 1 PUFF INHALE (07:45)
[2021-04-28] MEDS: Sertraline HCL 100 MG TABLET 200 MG PO (08:22)
[2021-04-28] MEDS: Atorvastatin Calcium 20 MG TABLET PO (08:23)
[2021-04-28] MEDS: 0.9 % Sodium Chloride Flush 3 ML SYRINGE IVFLUSH ×2 (08:24→21:31)
--- NOTE | 2021-04-28 14:13 | HO.PM.IMPN ---
Subjective Subjective Date of Service: 04/28/21 Interval History: the patient was seen and evaluated this morning Laying in bed, feels better overall but Still having episodes of diarrhea kidney injury resolved Denies any fever, chills or shortness of breath No reported other overnight events. Systemic review: No fever, chills but has generalized weakness No chest pain, palpitation No shortness of breath or coughing No abdominal pain, nausea or vomiting But reporting episodes of diarrhea No urinary symptoms No any rash or wounds Physical Exam Vital Signs: Vital Signs: Last Vital Signs Temp 98.0 F 04/28/21 11:41 Pulse 95 04/28/21 11:41 Resp 24 H 04/28/21 08:00 BP 123/65 04/28/21 11:41 Pulse Ox 97 04/28/21 11:41 Body Mass Index 33.7 Const: Other: Constitutional : Alert, oriented Neck : Normal inspection, Supple Cardiovascular : RRR, S1 S2, no lower extremity edema Respiratory : Good bilateral air entry, no crackles, wheezes or rhonchi Gastrointestinal: soft, lax, Normal bowel sounds, mild generalized tenderness with no surgical signs a Skin : Warm/Dry Neurological : Alert & oriented x3, No focal deficit Objective Data Current Medications Generic Name Dose Route Start Last Admin Trade Name Freq PRN Reason Stop Dose Admin Acetaminophen 650 mg 04/26/21 22:19 Acetaminophen 325 Mg Tablet PO Q6H PRN Pain, Mild (Pain Scale 1-3) Albuterol Sulfate 2 puff 04/27/21 00:01 Albuterol Sulfate 90 Mcg 8 Gm Inhaler INHALE Q4H PRN Respiratory Distress Atorvastatin Calcium 20 mg 04/27/21 09:00 04/28/21 08:23 Atorvastatin Calcium 20 Mg Tablet PO 20 mg DAILY LEONORA Administration Docusate Sodium 100 mg 04/26/21 22:19 Docusate Sodium 100 Mg Capsule PO DAILY PRN Constipation Fluticasone/Vilanterol 1 puff 04/27/21 08:00 04/28/21 07:45 Fluticasone/Vilanterol 100/25 Blst.W.Dev INHALE 1 puff RDAILY LEONORA Administration Lactated Ringer's 1,000 mls @ 80 mls/hr 04/26/21 23:45 04/28/21 05:59 Lr IVCONT 80 mls/hr .[id number] LEONORA Administration Ondansetron HCl 4 mg 04/26/21 22:19 Ondansetron Hcl 4 Mg/2 Ml Vial IVPUSH Q8H PRN Nausea and Vomiting Pharmacy Consult 1 each 04/26/21 20:56 Consult Rx Perform Med Rec MISCELLANE ONCE PRN Consult order Sertraline HCl 200 mg 04/27/21 09:00 04/28/21 08:22 Sertraline Hcl 100 Mg Tablet PO 200 mg DAILY LEONORA Administration Sodium Chloride 3 ml 04/27/21 00:00 04/28/21 08:24 0.9 % Sodium Chloride Flush 3 Ml Syringe IVFLUSH 3 ml QSHIFT [facility] Administration Tiotropium [place] 1 puff 04/27/21 08:00 04/28/21 07:45 Tiotropium [place] 18 Mcg Cap.W.Dev INHALE 1 puff RDAILY [facility] Administration Vancomycin HCl 125 mg 04/27/21 02:00 04/28/21 08:23 Vancomycin Hcl 125 Mg Capsule PO 125 mg Q6H LEONORA Administration Warfarin Sodium 7.5 mg 04/27/21 18:00 04/27/21 20:42 Warfarin Sodium 7.5 Mg Tablet PO 7.5 mg SUTUTHSA@1800 [facility] Administration Warfarin Sodium 10 mg 04/28/21 18:00 Warfarin Sodium 10 Mg Tablet PO MOWEFR@1800 [facility] Zolpidem Tartrate 5 mg 04/27/21 00:01 04/27/21 20:43 Zolpidem Tartrate 5 Mg Tablet PO 5 mg BEDTIME PRN Administration Sleep Labs CBC & Chem 7: 04/28/21 05:16 04/28/21 05:16 Labs: Laboratory Results - last 24 hr 04/28/21 04/28/21 04/28/21 05:16 05:16 05:16 WBC 7.7 RBC 3.77 L Hgb 10.2 L Hct 32.1 L MCV 85.1 MCH 27.1 MCHC 31.8 RDW 14.6 Plt Count 193 MPV 12.5 H Absolute Nucleated RBC 0.000 Nucleated RBC % (auto) 0.0 PT 23.1 H INR 1.9 H Sodium 140 Potassium 3.7 Chloride 111 H Carbon Dioxide 19 L Anion Gap 14 BUN 14 D Creatinine 0.62 Estim Creat Clear Calc 91.9 Estimated GFR > 60 POC Glucose Random Glucose 90 Calcium 7.9 L 04/28/21 07:04 WBC RBC Hgb Hct MCV MCH MCHC RDW Plt Count MPV Absolute Nucleated RBC Nucleated RBC % (auto) PT INR Sodium Potassium Chloride Carbon Dioxide Anion Gap BUN Creatinine Estim Creat Clear Calc Estimated GFR POC Glucose 91 Random Glucose Calcium Microbiology Microbiology Results: Microbiology 04/26/21 22:51 Stool Culture - Preliminary Stool Culture in progress. 04/26/21 16:18 Blood Culture - Preliminary Blood - Venous No growth after 24 hours. 04/26/21 16:15 Blood Culture - Preliminary Blood - Venous No growth after 24 hours. Quality Stroke Does the patient have a stroke diagnosis?: No VTE Prior VTE?: No VTE Risk Level:: Medical - moderate - high VTE Device Contraindication: Treatment Not Indicated VTE Drug Contraindication: N/A - Med Ordered Assessment and Plan (1) Hypotension: Status: Acute (2) EUGENIO (acute kidney injury): Status: Acute (3) Supratherapeutic INR: Status: Acute (4) Diarrhea: Status: Acute (5) C. difficile diarrhea: Status: Acute (6) Leukocytosis: Status: Acute Assessment and Plan: this is a 65-year-old female with past medical history of a flutter on Coumadin, CHF, hypertension, MVR who presents to the hospital diarrhea # hypotension improving but still running low continue IV fluids Hold blood pressure medications # C diff diarrhea Still having episodes of diarrhea Leukocytosis resolved continue p.o. vancomycin 125 q.6 hours day 3 # supratherapeutic INR on Coumadin for history of AFib received IV Vitamin K INR 1.9 restarted on warfarin # EUGENIO resolved Discontinue IV fluids follow BMP hold nephrotoxic meds # CHF does not appear to be in exacerbation hold furosemide given the EUGENIO monitor volume/respiratory status # AFib patient on diltiazem but given her significant hypotension will hold for now can resume diltiazem once blood pressure is slightly more stable restarted warfarin # hypothyroidism continue levothyroxine DVT prophylaxis: Coumadin for the
[2021-04-28] MEDS: Warfarin Sodium 10 MG TABLET PO (17:48)
[2021-04-28] MEDS: Zolpidem Tartrate 5 MG TABLET PO (21:30)
[2021-04-29] MEDS: vancomycin HCL 125 MG CAPSULE PO ×2 (02:16→08:50)
[2021-04-29 03:58] VITALS: BP 109/55; PULSE 79; RESP 18; TEMP 36.4; O2SAT 94
[2021-04-29 04:26] VITALS: BMI 33.2
[2021-04-29 06:56] LABS: INTERNATIONAL NORM RATIO 3.1 (0.9-1.1); Prothrombin Time 35.7 SEC (9.9-13.0)
[2021-04-29 07:22] LABS: Anion Gap 13 (12-20); Blood Urea Nitrogen 8 mg/dL (9-16); Calcium 7.6 mg/dL (8.4-10.2); Carbon Dioxide 21 mmol/L (22-29); Chloride 111 mmol/L (96-108); Creatinine Clr Calc Pharmacy 99.1; Estimated Glomerular Filt Rate > 60; Glucose Random 89 mg/dL (60-115); Potassium 3.6 mmol/L (3.3-5.1); Sodium 141 mmol/L (135-145)
[2021-04-29 08:00] VITALS: BP 115/62; PULSE 105; RESP 20; TEMP 36.7; O2SAT 95
[2021-04-29] MEDS: Atorvastatin Calcium 20 MG TABLET PO (08:50)
[2021-04-29] MEDS: 0.9 % Sodium Chloride Flush 3 ML SYRINGE IVFLUSH (08:50)
[2021-04-29] MEDS: Sertraline HCL 100 MG TABLET 200 MG PO (08:50)
[2021-04-29 11:05] VITALS: BP 113/67; PULSE 121; RESP 20; TEMP 35.9; O2SAT 96
--- NOTE | 2021-04-29 11:12 | P.DS_ITS ---
DS: Providers Provider Date of Service: 04/29/21 Date of admission: 04/26/21 21:06 Primary care physician: Daniela Chopra MD DS: Diagnosis Discharge Diagnosis (1) Hypotension: Status: Acute (2) EUGENIO (acute kidney injury): Status: Acute (3) Supratherapeutic INR: Status: Acute (4) Diarrhea: Status: Acute (5) C. difficile diarrhea: Status: Acute (6) Leukocytosis: Status: Acute DS: Medications Discharge Medications Home Medications: Home Medications Medication Instructions Recorded Confirmed furosemide 20 mg tablet 40 mg PO DAILY@1700 09/01/20 04/26/21 levothyroxine 25 mcg tablet 25 mcg PO DAILY 09/01/20 04/26/21 lisinopril 5 mg tablet 5 mg PO DAILY 09/01/20 04/26/21 mometasone-formoterol HFA 100 2 puff INHALATION BID 09/01/20 04/26/21 mcg-5 mcg/actuation aerosol inhaler tiotropium bromide 2.5 2 puff INHALATION DAILY 09/01/20 04/26/21 mcg/actuation mist for inhalation albuterol sulfate [ProAir HFA] 2 puff INHALATION Q4-6H PRN 04/26/21 04/26/21 atorvastatin 20 mg PO DAILY 04/26/21 04/26/21 ferrous sulfate 325 mg PO 1700,1900,2100 04/26/21 04/26/21 sertraline 200 mg PO DAILY 04/26/21 04/26/21 warfarin 7.5 mg PO SUTUTHSA@1800 04/26/21 04/26/21 warfarin 10 mg PO MOWEFR@1800 04/26/21 04/26/21 zolpidem 5 mg PO BEDTIME PRN 04/26/21 04/26/21 Previous Rx's Medication Instructions Recorded diltiazem HCl 240 mg 240 mg PO DAILY #90 cap 02/21/21 capsule,extended release 24 hr vancomycin 125 mg PO Q6H 11 Days #44 cap 04/29/21 DS: Summary Hospital Course Hospital Course: admission note HPI this is a 65-year-old female with past medical history of COPD, heart failure, aortic stenosis, severe gastrectomy, mitral valve replacement, AFib, who p resented to the hospital with complaints of diarrhea since Saturday. Patient reports that she has countless episode of diarrhea since Saturday. She was recently treated with Augmentin for tonsillar abscess and finished her antibiotics on Saturday developed diarrhea the next day. Denies abdominal pain, some nausea with no vomiting, reports significant loss of appetite where she has not been able to keep anything down due to nausea. Has chills no fever, decreased urine output with no urgency or dysuria. She was trying to keep about 20 oz of water a day has no shortness of breath, no cough, no chest pain. On arrival vitals were significant for temp of 98.1?, heart rate of 100, respiratory rate of 16, blood pressure 70/40 satting 97% on room air Labs are significant for WBC of 16.1, PT of 129, INR of 10.6, BUN of 57, creatinine of 3.73 With baseline around 0.868, high sensitivity troponin of 22.5, C diff positive, soft tissue neck CT showed interval improvement of the tonsillar abscess with resolution of abnormal thickening of the right tonsillar wall. Previously presumed peritonsillar abscess is no longer seen on the CT patient receive 4 L of IV fluids in the ED, with improvement in her blood pressure and is being admitted for further management. Hospital course patient was admitted to the hospital for reporting diarrhea episodes. Found to be significantly hypotensive requiring multiple IV fluid boluses to improve her blood pressure. Tested positive for C diff infection and started treatment with oral vancomycin with good response over the course of hospital stay as her diarrhea resolved and she was able to tolerate diet well with no reported symptoms. She was noted to have acute kidney injury with creatinine about 2.5 at time of presentation from normal baseline. Received IV fluid with good response as your kidney function improved back to baseline. Her INR was noted to be around 10 time of presentation requiring a dose of IV vitamin K, no bleeding was noticed at that point and hemoglobin remained stable. Her INR dropped to 1.7 and was 3.1 at the day of discharge. She was asked to monitor her INR level at home for possible changes on the warfarin dosage. The high INR this time is likely related to acute kidney injury and being sick. To restart her home medications except for the lisinopril which will keep on hold until she sees her primary care and keep monitoring her blood pressure. To finish 11 more days of oral vancomycin Time Spent with Patient Time attestation: Total time spent providing and/or coordinating discharge services: Discharge coordination time: Greater than 30 minutes Quality: Stroke Does the patient have a stroke diagnosis?: No Physical Exam Vital Signs: Vital Signs: Last Vital Signs Temp 96.6 F L 04/29/21 11:05 Pulse 121 H 04/29/21 11:05 Resp 20 04/29/21 11:05 BP 113/67 04/29/21 11:05 Pulse Ox 96 04/29/21 11:05 Body Mass Index 33.2 Const: Other: Constitutional : Alert, oriented Neck : Normal inspection, Supple Cardiovascular : RRR, S1 S2, no lower extremity edema Respiratory : Good bilateral air entry, no crackles, wheezes or rhonchi Gastrointestinal: soft, lax, Normal bowel sounds, no tenderness Skin : Warm/Dry Neurological : Alert & oriented x3, No focal deficit DS: Data Data Completed and Pending Labs on day of discharge: Laboratory Results - last 24 hr 04/29/21 04/29/21 05:13 05:13 PT 35.7 H INR 3.1 H Sodium 141 Potassium 3.6 Chloride 111 H Carbon Dioxide 21 L Anion Gap 13 BUN 8 L Creatinine 0.57 Estim Creat Clear Calc 99.1 Estimated GFR > 60 Random Glucose 89 Calcium 7.6 L Preliminary micro results at discharge 04/26/21 16:18 Blood Culture - Preliminary Blood - Venous No growth after 48 hours. 04/26/21 16:15 Blood Culture - Preliminary Blood - Venous No growth after 48 hours. Discharge Plan Discharge Patient Disposition: Home, Self-Care Discharge Diagnosis: C diff infection Acute kidney injury Elevated INR Referrals: Daniela Chopra MD [Primary Care Provider] - 1 Week Discharge Medications: New vancomycin 125 mg Capsule 125 mg PO Q6H 11 Days Qty: 44 RF: 0 Continued diltiazem HCl 240 mg capsule,extended release 24hr 240 mg PO DAILY Qty: 90 RF: 3 sertraline 100 mg Tablet 200 mg PO DAILY RF: 0 atorvastatin 20 mg Tablet 20 mg PO DAILY RF: 0 ferrous sulfate 325 mg (65 mg iron) Tablet 325 mg PO 1700,1900,2100 RF: 0 warfarin 2.5 mg Tablet 7.5 mg PO SUTUTHSA@1800 RF: 0 warfarin 2.5 mg Tablet 10 mg PO MOWEFR@1800 RF: 0 albuterol sulfate [ProAir HFA] 90 mcg/actuation Hfa Aerosol Inhaler 2 puff INHALATION Q4-6H PRN (Reason: Respiratory Distress) RF: 0 zolpidem 5 mg Tablet 5 mg PO BEDTIME PRN (Reason: Sleep) RF: 0 levothyroxine 25 mcg tablet 25 mcg PO DAILY RF: 0 Spiriva Respimat 2.5 mcg/actuation mist 2 puff inhalation DAILY RF: 0 Dulera 100-5 mcg/actuation HFA aerosol inhaler 2 puff inhalation BID RF: 0 furosemide [Lasix] 20 mg tablet 40 mg PO DAILY@1700 RF: 0 Held lisinopril 5 mg tablet 5 mg PO DAILY RF: 0 Hold Instructions: Doctor's Order, until you see your primary care Discharge Orders: Discharge Order (Routine); Ordered 04/29/21 Ordered By: Marely Crocker Diet: advance to usual diet Activity on Discharge: As tolerated Stand Alone Forms: Patient Portal Discharge page Care Plan Goals: Read below Health Concerns: Read below Plan of Treatment: you were admitted to the hospital for evaluation of diarrhea and lethargy. Found to C diff infection along with acute kidney injury and significantly elevated INR level. You were treated with oral vancomycin for the C diff infection with good response over the course of hospital stay. Your kidney function improved significantly back to normal baseline with usage of IV fluid. Your INR level was significantly elevated 10 as a result of having kidney injury. Level back within normal at this point. Continue to monitor INR at home and contact the warfarin clinic for changes in your dose. Assessment: Continue vancomycin 4 times a day for the next 11 days monitor your blood pressure at home Advance your diet as tolerated To follow-up with your primary care
--- NOTE | 2021-04-29 11:22 | MHC.CM.PN ---
PT CLEARED FOR DC HOME TODAY WITH NO SERVICES. PT TO ARRANGE TRANSPORT
[2021-04-29 11:35] VITALS: PULSE 109
[2021-04-29] MEDS: dilTIAZem HCL CD 240 MG CAP.ER.DEG PO (11:35)
== END 2021-04-29 12:45 | disposition home or self-care (01) | DRG 248 ==
LOC: HO.ED 17:18 → HO.EDOVER 04-27 00:16 → HO.IMC 04-27 01:16
PROVIDERS: Emergency Medicine; Admitting Provider Internal Medicine; Emergency Provider Emergency Medicine; PCP Internal Medicine; Visit Provider Student in an Organized Health Care Education/Training Program
DX: A04.72 Enterocolitis due to Clostridium difficile, not specified as recurrent (principal); N17.9 Acute kidney failure, unspecified; I50.9 Heart failure, unspecified; I48.0 Paroxysmal atrial fibrillation; I95.9 Hypotension, unspecified; R79.1 Abnormal coagulation profile; Z95.2 Presence of prosthetic heart valve; D72.829 Elevated white blood cell count, unspecified; E03.9 Hypothyroidism, unspecified; Z20.822 Contact with and (suspected) exposure to COVID-19; Z87.891 Personal history of nicotine dependence; Z98.84 Bariatric surgery status; Z79.01 Long term (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; Z79.890 Hormone replacement therapy; Z79.899 Other long term (current) drug therapy
CPT/HCPCS: 36415; 70490; 71045; 80048; 80053; 82947; 83605; 84484; 85025; 85027; 85610; 87040; 87045; 87046; 87324; 87493; 87635; 89055; 93005; 99285; C1758; J2405; J2543; J3370; J3430

== ENCOUNTER 2021-05-09 12:35 | Emergency (ER) | payer MEDICAID, SELFPAY ==
[2021-05-09 12:44] VITALS: BP 106/53; PULSE 61; PULSE 64; O2SAT 93; O2SAT 95; BMI 32.1
--- NOTE | 2021-05-09 13:09 | ED_ITS ---
HPI - General Adult General Chief complaint: General Medical Stated complaint: VAGINAL BLEEDING THIS AM,ON COUMADIN Time Seen by Provider: 05/09/21 13:08 Source: patient Mode of arrival: ambulatory Limitations: no limitations History of Present Illness HPI narrative: This is a 65-year-old female came in for evaluation of rectal bleed. 65-year-old female on Coumadin due to mitral valve replacement, came in was init ially thought to be rectal bleed patient recently was diagnosed with C diff and extensive diarrhea that improved after patient finished a course of vancomycin p.o., patient noted bright red blood, with her bowel movement so to be coming from the rectum. While patient the emergency room and getting physical exam bleeding is coming from a skin tag next to her left labia major that is bleeding. Related Data Home Medications Medication Instructions Recorded Confirmed furosemide 20 mg tablet 40 mg PO DAILY@1700 09/01/20 04/26/21 levothyroxine 25 mcg tablet 25 mcg PO DAILY 09/01/20 04/26/21 lisinopril 5 mg tablet 5 mg PO DAILY 09/01/20 04/26/21 mometasone-formoterol HFA 100 2 puff INHALATION BID 09/01/20 04/26/21 mcg-5 mcg/actuation aerosol inhaler tiotropium bromide 2.5 2 puff INHALATION DAILY 09/01/20 04/26/21 mcg/actuation mist for inhalation albuterol sulfate [ProAir HFA] 2 puff INHALATION Q4-6H PRN 04/26/21 04/26/21 atorvastatin 20 mg PO DAILY 04/26/21 04/26/21 ferrous sulfate 325 mg PO 1700,1900,2100 04/26/21 04/26/21 sertraline 200 mg PO DAILY 04/26/21 04/26/21 warfarin 7.5 mg PO SUTUTHSA@1800 04/26/21 04/26/21 warfarin 10 mg PO MOWEFR@1800 04/26/21 04/26/21 zolpidem 5 mg PO BEDTIME PRN 04/26/21 04/26/21 Previous Rx's Medication Instructions Recorded diltiazem HCl 240 mg 240 mg PO DAILY #90 cap 02/21/21 capsule,extended release 24 hr vancomycin 125 mg PO Q6H 11 Days #44 cap 04/29/21 Allergies Allergy/AdvReac Type Severity Reaction Status Date / Time PAPER TAPE Allergy Unknown REDNESS Uncoded 07/14/20 17:53 peper type Allergy Unknown rash Uncoded 09/09/19 00:00 Review of Systems Review of Systems: All other systems are reviewed and are negative Constitutional: Reports as per HPI and Reports no additional constitutional complaints Eyes: Reports as per HPI and Reports no additional eye complaints Reports system reviewed and no additional complaints, except as documented Cardiovascular: Reports as per HPI and Reports no additional cardiovascular complaints Respiratory: Reports as per HPI and Reports no additional respiratory complaints Gastrointestinal: Reports as per HPI and Reports no additional gastrointestinal complaints Genitourinary: Reports no additional female genitourinary complaints Musculoskeletal: Reports no additional musculoskeletal complaints Skin/Breast: Reports system reviewed and no additional complaints, except as docu Psychiatric: Reports no additional psychiatric complaints Endocrine: Reports no additional endocrine complaints Hematologic/Lymphatic: Reports no additional hematologic/lymphatic complaints Allergic/Immunologic: Reports no additional allergic/immunologic complaints Reports system reviewed and no additional complaints, except as documented and Reports Abnormal speech present [facility] Past Medical History Medical History (HFpEF) heart failure with preserved ejection fraction Aortic stenosis COPD (chronic obstructive pulmonary disease) Obesity Paroxysmal atrial fibrillation Surgical History History of sleeve gastrectomy (~2017) Hx of section Hx of mitral valve replacement (~2004) Hx of transesophageal echocardiography (SHELIA) for monitoring (~2015) S/P MVR (mitral valve replacement) Family History Family History Father No problems noted. Mother CVD (cardiovascular disease) Social History Social History Household Members: Family Housing: House Do you presently have visiting nurse or other home services: No Alcohol intake: never Patient Tobacco Use Status: Former Tobacco user Tobacco use type: Cigarette Use of substances other than those prescribed or required for medical reasons: No Advance Directives: Yes Advance Directives on File: Yes Advance Directives Date on File: 04/27/21 Patient : No service: No Current occupational status: disabled Physical Exam Vital Signs: Vital Signs: Last Vital Signs Pulse 60 05/09/21 14:24 BP 112/50 L 05/09/21 14:24 Pulse Ox 96 05/09/21 14:24 Body Mass Index 32.1 Vital signs have been reviewed as appeared to be correct. Blood pressure normal. Heart rate normal. Respiration rate normal. Temperature normal. Oxygen saturation normal. Appearance: Alert. Oriented X3. No acute distress. Head: Normal external exam. Normocephalic. Atraumatic. No Ramachandran signs noted. No raccoon eyes noted Eyes: PERRLA. EOMI. Conjunctiva and sclera normal. Eyelids normal. ENT: TM's Normal. Pharynx normal. Uvula midline. Moist mucous membranes. No trismus noted. No drooling noted. No muffled voice noted. Neck: Normal inspection. Neck supple. FROM. No adenopathy. Thyroid Normal. No meningeal signs. No neck mass noted. CVS: Normal heart rate and rhythm. Heart sound normal. No murmurs noted. Pulses normal throughout. Respiratory: No respiratory distress. Painless inspiration. Breath sounds normal. No wheezes/rales/rhonchi noted. Chest nontender. No accessory muscle usage noted or decreased air movement noted. Abdomen: Soft and nontender. Bowel sounds normal in all 4 quadrants. No distention noted. No organomegaly noted. No visible injury noted. Rectal exam: No external or internal hemorrhoid, empty vault, no blood from rectum. Pelvic exam: Skin tag to the left of labia major appear to be bleeding, normal inspection to the genitalia, os is closed, no mass. Using 3-0 nylon the skin tag was tied at the neck that controlled the bleeding. Patient was instructed to keep watching the tag which will fall off in couple days which should be tested by pathology through her primary doctor. Back: No CVA tenderness. Full range of motion noted. Skin: Skin warm and dry. Normal skin color. Normal skin turgor. No rashes/lesions/lacerations noted. Extremities: No lower extremity edema. Extremities exhibit normal range of motion. Extremities nontender. Neuro: Oriented X 3. No motor deficit. No sensory deficit. Reflexes normal. Course Course Course Narrative: Assessment and plan. 65-year-old female is on Coumadin for a metallic mitral valve replacement INR should be between 2.5-3.5. Patient was on vancomycin forced treating C diff last antibiotic dose will be today. Came in for bleeding from a skin tag next 2 vaginal area that was tied and control the bleeding patient was instructed when the skin tag follow-up of keep it in a plastic bag and gave it to her PCP for further pathology evaluation. INR today was 7.4 which is supratherapeutic a light of mild bleeding patient was given 2.5 mg of vitamin K, patient was instructed to follow up with the Coumadin clinic tomorrow before taking her next dose in the morning. (patient to hers today usually take it in the morning). No active bleeding at this point. Medical Decision Making Lab Data Lab results reviewed: Yes I reviewed the patient's lab results. Result diagrams: 05/09/21 13:34 05/09/21 13:34 Labs: Lab Results 05/09/21 05/09/21 05/09/21 Range/Units 13:34 13:34 13:34 WBC 5.9 (4.8-10.8) X10*3/uL RBC 3.59 L (4.20-5.50) X10*6/uL Hgb 9.8 L (12.0-16.0) g/dl Hct 31.3 L (37-47) % MCV 87.2 (80-98) fL MCH 27.3 (27.0-33.0) pg MCHC 31.3 (31.0-35.0) g/dl RDW 15.4 (11.0-16.0) % Plt Count 243 D (160-400) X10*3/uL MPV 11.3 (9.4-12.3) fL Immature Gran % (Auto) 0.2 (0.0-0.4) % Neut % (Auto) 78.5 H (45-73) % Lymph % (Auto) 13.3 L (20-40) % Leslie % (Auto) 6.6 (2-11) % Eos % (Auto) 0.9 (0-4) % Baso % (Auto) 0.5 (0-2) % Lymph # (Auto) 0.8 L (1.2-4.9) X10*3/uL Leslie # (Auto) 0.4 (0.1-1.2) X10*3/uL Eos # (Auto) 0.1 (0.0-0.4) X10*3/uL Baso # (Auto) 0.0 (0.0-0.2) X10*3/uL Abs Immat Gran (auto) 0.01 (0.00-0.03) X10*3/uL Absolute Neuts (auto) 4.6 (2.0-8.3) X10*3/uL Absolute Nucleated RBC 0.000 (0.0-0.012) X10*3/uL Nucleated RBC % (auto) 0.0 (0.0-0.2) /100WBC PT 87.9 H D (9.9-13.0) SEC INR 7.4 H* D (0.9-1.1) APTT 65.0 H* D (24.1-38.0) SEC Sodium 144 (135-145) mmol/L Potassium 3.8 (3.3-5.1) mmol/L Chloride 108 (96-108) mmol/L Carbon Dioxide 27 (22-29) mmol/L Anion Gap 13 (12-20) BUN 13 D (9-16) mg/dL Creatinine 0.69 (0.5-1.4) mg/dL Estim Creat Clear Calc 77.4 Estimated GFR > 60 Random Glucose 88 (60-115) mg/dL Calcium 8.3 L D (8.4-10.2) mg/dL Discharge Plan Discharge Clinical Impression: Skin tag of female perineum, Supratherapeutic INR Patient Disposition: Home, Self-Care Instructions: Warfarin (By mouth) Additional Instructions: As discussed call your Coumadin clinic and make an appointment tomorrow, do not take your next dose of Coumadin until recheck your INR by the Coumadin Clinic. Closely which the skin tag expected to fall of an 2-3 days give it your PCP for further pathology evaluation. Prescriptions: No Action diltiazem HCl 240 mg capsule,extended release 24hr 240 mg PO DAILY Qty: 90 RF: 3 sertraline 100 mg Tablet 200 mg PO DAILY RF: 0 atorvastatin 20 mg Tablet 20 mg PO DAILY RF: 0 ferrous sulfate 325 mg (65 mg iron) Tablet 325 mg PO 1700,1900,2100 RF: 0 warfarin 2.5 mg Tablet 7.5 mg PO SUTUTHSA@1800 RF: 0 warfarin 2.5 mg Tablet 10 mg PO MOWEFR@1800 RF: 0 albuterol sulfate [ProAir HFA] 90 mcg/actuation Hfa Aerosol Inhaler 2 puff INHALATION Q4-6H PRN (Reason: Respiratory Distress) RF: 0 zolpidem 5 mg Tablet 5 mg PO BEDTIME PRN (Reason: Sleep) RF: 0 vancomycin 125 mg Capsule 125 mg PO Q6H 11 Days Qty: 44 RF: 0 lisinopril 5 mg tablet 5 mg PO DAILY RF: 0 Hold Instructions: Doctor's Order, until you see your primary care levothyroxine 25 mcg tablet 25 mcg PO DAILY RF: 0 Spiriva Respimat 2.5 mcg/actuation mist 2 puff inhalation DAILY RF: 0 Dulera 100-5 mcg/actuation HFA aerosol inhaler 2 puff inhalation BID RF: 0 furosemide [Lasix] 20 mg tablet 40 mg PO DAILY@1700 RF: 0 Referrals: Daniela Chopra MD [Primary Care Provider] - 2 days
[2021-05-09 13:40] LABS: MANUAL DIFF FLAG NO
[2021-05-09 13:41] LABS: Basophils Percent Auto 0.5 % (0-2); Eosinophils Absolute Auto 0.1 X10*3/uL (0.0-0.4); Eosinophils Percent Auto 0.9 % (0-4); Hematocrit 31.3 % (37-47); Hemoglobin 9.8 g/dl (12.0-16.0); Imm Gran Abs Auto 0.01 X10*3/uL (0.00-0.03); Imm Gran Pct Auto 0.2 % (0.0-0.4); Lymphocytes Absolute Auto 0.8 X10*3/uL (1.2-4.9); Lymphocytes Percent Auto 13.3 % (20-40); Mean Corpuscular HGB Conc 31.3 g/dl (31.0-35.0); Mean Corpuscular Hemoglobin 27.3 pg (27.0-33.0); Mean Corpuscular Volume 87.2 fL (80-98); Mean Platelet Volume 11.3 fL (9.4-12.3); Monocytes Absolute Auto 0.4 X10*3/uL (0.1-1.2); Monocytes Percent Auto 6.6 % (2-11); Neutrophils Absolute Auto 4.6 X10*3/uL (2.0-8.3); Neutrophils Percent Auto 78.5 % (45-73); Platelet Count 243 X10*3/uL (160-400); Red Blood Count 3.59 X10*6/uL (4.20-5.50); Red Cell Distribution Width 15.4 % (11.0-16.0); White Blood Count 5.9 X10*3/uL (4.8-10.8)
[2021-05-09 13:53] LABS: Prothrombin Time 87.9 SEC (9.9-13.0)
[2021-05-09 14:02] LABS: INTERNATIONAL NORM RATIO 7.4 (0.9-1.1)
[2021-05-09 14:08] LABS: Anion Gap 13 (12-20); Blood Urea Nitrogen 13 mg/dL (9-16); Calcium 8.3 mg/dL (8.4-10.2); Carbon Dioxide 27 mmol/L (22-29); Chloride 108 mmol/L (96-108); Creatinine Clr Calc Pharmacy 77.4; Estimated Glomerular Filt Rate > 60; Glucose Random 88 mg/dL (60-115); Potassium 3.8 mmol/L (3.3-5.1); Sodium 144 mmol/L (135-145)
[2021-05-09] MEDS: Phytonadione (Vit K1) Oral 10 MG/ML AMPUL 2.5 MG PO (14:19)
[2021-05-09 14:24] VITALS: BP 112/50; PULSE 60; O2SAT 96
== END 2021-05-09 15:46 | disposition home or self-care (01) ==
PROVIDERS: Emergency Provider Emergency Medicine; PCP Internal Medicine
DX: K64.4 Residual hemorrhoidal skin tags (principal); R79.1 Abnormal coagulation profile; I48.0 Paroxysmal atrial fibrillation; Z95.2 Presence of prosthetic heart valve; Z79.01 Long term (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
CPT/HCPCS: 36415; 80048; 85025; 85610; 85730; 99283; 99284

== ENCOUNTER → 2021-05-10 13:07 | Outpatient (BNVA) | payer MEDICAID, SELFPAY | PROVIDERS: PCP Internal Medicine; Visit Provider Internal Medicine | DX: Z95.2 Presence of prosthetic heart valve (principal); Z51.81 Encounter for therapeutic drug level monitoring; Z79.01 Long term (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 | CPT/HCPCS: 85610; 99211 ==

== ENCOUNTER → 2021-05-15 08:37 | Outpatient (BNVA) | payer MEDICAID, SELFPAY | PROVIDERS: PCP Internal Medicine; Visit Provider Internal Medicine | DX: Z95.2 Presence of prosthetic heart valve (principal); Z51.81 Encounter for therapeutic drug level monitoring; Z79.01 Long term (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 | CPT/HCPCS: 85610; 99211 ==

== ENCOUNTER → 2021-07-05 08:33 | Outpatient (BNVA) | payer MEDICAID, SELFPAY | PROVIDERS: PCP Internal Medicine; Visit Provider Internal Medicine | DX: Z95.2 Presence of prosthetic heart valve (principal); Z51.81 Encounter for therapeutic drug level monitoring; Z79.01 Long term (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 | CPT/HCPCS: 85610; 99211 ==

== ENCOUNTER → 2021-07-13 08:06 | Outpatient (BNVA) | payer MEDICAID, SELFPAY | PROVIDERS: PCP Internal Medicine; Visit Provider Internal Medicine | DX: Z95.2 Presence of prosthetic heart valve (principal); Z51.81 Encounter for therapeutic drug level monitoring; Z79.01 Long term (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 | CPT/HCPCS: 85610; 99211 ==

== ENCOUNTER → 2021-07-17 08:48 | Outpatient (BNVA) | payer MEDICAID, SELFPAY | PROVIDERS: PCP Internal Medicine; Visit Provider Internal Medicine | DX: Z95.2 Presence of prosthetic heart valve (principal); Z51.81 Encounter for therapeutic drug level monitoring; Z79.01 Long term (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 | CPT/HCPCS: 85610; 99211 ==

== ENCOUNTER 2021-07-26 09:16 | Outpatient (REF) | payer MEDICAID, SELFPAY | END 2021-07-26 09:17 | disposition home or self-care (01) | LOC: HO.HAP 09:16 | PROVIDERS: Visit Provider Internal Medicine | DX: Z46.1 Encounter for fitting and adjustment of hearing aid (principal); H90.3 Sensorineural hearing loss, bilateral; Z95.2 Presence of prosthetic heart valve; Z51.81 Encounter for therapeutic drug level monitoring; Z79.01 Long term (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 | CPT/HCPCS: 85610; 99211; V5266 ==

== ENCOUNTER → 2021-08-02 08:28 | Outpatient (BNVA) | payer MEDICAID, SELFPAY | PROVIDERS: PCP Internal Medicine; Visit Provider Internal Medicine | DX: Z95.2 Presence of prosthetic heart valve (principal); Z51.81 Encounter for therapeutic drug level monitoring; Z79.01 Long term (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 | CPT/HCPCS: 85610; 99211 ==

== ENCOUNTER → 2021-08-09 08:14 | Outpatient (BNVA) | payer MEDICAID, SELFPAY | PROVIDERS: PCP Internal Medicine; Visit Provider Internal Medicine | DX: Z95.2 Presence of prosthetic heart valve (principal); Z51.81 Encounter for therapeutic drug level monitoring; Z79.01 Long term (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 | CPT/HCPCS: 85610; 99211 ==

== ENCOUNTER → 2021-09-15 09:03 | Outpatient (BNVA) | payer MEDICAID, SELFPAY | PROVIDERS: PCP Internal Medicine; Visit Provider Internal Medicine | DX: Z95.2 Presence of prosthetic heart valve (principal); Z51.81 Encounter for therapeutic drug level monitoring; Z79.01 Long term (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 | CPT/HCPCS: 85610; 99212 ==

== ENCOUNTER → 2021-10-10 08:46 | Outpatient (REF) | payer MEDICARE, MEDICAID, SELFPAY ==
--- NOTE | 2021-10-10 08:49 | CA_ITS ---
Transthoracic Echocardiogram Patient (Last, First, Middle): Nubia Bond, Gender: Female Date of : 1955 Age: 65 Procedure Date: 10/10/2021 Procedure Type: Transthoracic Echocardiogram Location: OP Height: 154.94 cm Weight: 76.2 kg BSA: 1.75 m2 Heart Rate: bpm BP: 110 / 60 mmHg Event Services Manager: OCHOA Referring MD: Luis Antonio Nelson MD Expense Analyst: Luis Antonio Nelson MD Symptoms: I35.0 - Nonrheumatic aortic (valve) stenosis Study Quality: Fair ECG Rhythm: Sinus Conclusions: - 1. Normal LV systolic function 2. Severely dilated left atrium 3. Moderate to severe aortic stenosis 4. Normally functioning mechanical mitral prosthesis with mean gradient of 5 mmHg 5. Borderline RV systolic pressure 6. No gross pericardial effusion Findings Left Ventricle Normal left ventricular size, thickness, and systolic function. The visually estimated ejection fraction is between 60-65%. Diastolic function is indeterminate on the basis of available data. Right Ventricle Mildly increased right ventricular cavity size. There is borderline right ventricular systolic function. Atria The left atrium is severely dilated. There is lipomatous hypertrophy of the interatrial septum. There is no evidence of interatrial shunt. The right atrium is mildly dilated. Aortic Valve There is moderate calcification of the aortic valve. There is mild thickening of the aortic valve. There is moderate to severe aortic valve stenosis. The peak aortic gradient is 52 mmHg.The mean gradient is 30 mmHg. The aortic valve area is 1.14 cm2. There is mild to moderate aortic valve regurgitation. Mitral Valve A mechanical prosthetic mitral valve is present. The prosthetic mitral valve appears to be functioning normally. The mean mitral valve gradient is 5.00 mmHg. Pulmonic Valve The pulmonic valve was not well visualized. Tricuspid Valve There is mild tricuspid valve regurgitation. Tricuspid ring in place. Leaflets are within normal limits. RV systolic pressure is borderline elevated Great Vessels All visible segments of the aorta are normal in size. The pulmonary artery was not well visualized. Venous The inferior vena cava is normal in size and collapses greater than 50% with inspiration. Pericardium/Pleural There is no evidence of pericardial effusion. Prior Study Comparison Changes noted compared to prior study dated: 08/16/2020. Aortic stenosis is marginally worse with mean gradient of 30 mmHg. RV systolic pressure is borderline Measurements 2D Linear Measurements IVSd: 0.86 0.6-0.9/0.6-1.0 cm LVIDd: 5.43 3.9-5.3/4.2-5.9 cm LVIDd Index: 3.10 2.4-3.2/2.2-3.1 cm/m2 LVIDs: 4.36 2.0-3.6 cm LVPWd: 1.05 0.7-1.1 cm LA Diam: 4.00 2.7-3.8/3.0-4.0 cm LAIDs Index: 2.29 1.5-2.3 cm/m2 LV Mass: 243.92 67-162/88-224 g LV Mass Index: 139.38 43-95/49-115 g/m2 LVOT Diam: 2.00 3.0+(-)1.3 cm 2D Systolic Function EF 4C: 53.20 >55% EF 2C: 73.00 >55% EF BiP: 66.20 >55% Mitral Valve MV VTI: 0.27 MV Pk Vern: 2.00 MV Mn Vern: 0.99 MV Pk Grad: 16.00 MV Mn Grad: 6.00 MV Pk E: 2.00 MV Decel Time: 203.00 E'Lateral: 5.93 E'Medial: 6.09 E/E' Med: 32.80 E/E' Lat: 33.70 PHT: 59.00 MVA PHT: 3.73 MVA Continuity: 3.64 Decel [place]: 10.07 Aortic Valve AoV Pk Vern: 3.62 AoV Mn Vern: 2.56 AoV VTI: 0.85 AoV Pk Grad: 52.00 Aov Mn Grad: 30.00 RADHA Cont.VTI: 1.14 AI Pk Vern: 4.05 AI [place]: 3.97 LVOT LVOT Pk Vern: 1.49 LVOT Mn Vern: 0.94 LVOT VTI: 0.31 LVOT Pk Grad: 9.00 LVOT Mn Grad: 4.00 LVOT Diam: 2.00 LVOT Area: 3.14 Diastolic Function MV Pk E: 2.00 E'Medial: 6.09 E/E' Med: 32.80 E' Laterial: 5.93 E/E' Lat: 33.70 Right Ventricle TAPSE (mm): 17.00 TVS' Vern: 9.00 Tricuspid Valve TV Pk Vern: 1.28 TV Mn Vern: 0.75 TV Pk Grad: 7.00 TV Mn Grad: 3.00 TR Pk Vern: 2.98 TR Pk Grad: 36.00 RA Press: 3.00 RVSP: 39.00 Great Vessels Aorta Ao Asc: 3.60 2.1-3.4 cm Updated in Other Vendor System with Status of Final Luis Antonio Nelson MD electronically signed on 10/11/2021 3:13:44 PM with status of Final
== END ==
LOC: HO.CARD 08:46
PROVIDERS: PCP Internal Medicine; Visit Provider Internal Medicine Cardiovascular Disease
DX: I35.0 Nonrheumatic aortic (valve) stenosis (principal)
CPT/HCPCS: 85610; 93306; 99211

== ENCOUNTER → 2021-10-17 09:10 | Outpatient (BNVA) | payer MEDICARE, MEDICAID, SELFPAY | PROVIDERS: PCP Internal Medicine; Visit Provider Internal Medicine | DX: Z95.2 Presence of prosthetic heart valve (principal); Z51.81 Encounter for therapeutic drug level monitoring; Z79.01 Long term (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 | CPT/HCPCS: 85610; 99211 ==

== ENCOUNTER → 2021-10-31 08:10 | Outpatient (BNVA) | payer MEDICARE, MEDICAID, SELFPAY | PROVIDERS: PCP Internal Medicine; Visit Provider Internal Medicine | DX: Z95.2 Presence of prosthetic heart valve (principal); Z51.81 Encounter for therapeutic drug level monitoring; Z79.01 Long term (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 | CPT/HCPCS: 85610; 99211 ==

== ENCOUNTER → 2021-11-14 08:05 | Outpatient (BNVA) | payer MEDICARE, MEDICAID, SELFPAY | PROVIDERS: PCP Internal Medicine; Visit Provider Internal Medicine | DX: Z95.2 Presence of prosthetic heart valve (principal); Z51.81 Encounter for therapeutic drug level monitoring; Z79.01 Long term (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 | CPT/HCPCS: 85610; 99211 ==

== ENCOUNTER 2021-11-14 08:40 | Outpatient (REF) | payer MEDICARE, MEDICAID, SELFPAY ==
--- NOTE | 2021-11-14 09:50 | MHC.AU.MED ---
Medical Clearance for Hearing Instrumentation Date: 11/14/21 Patient Name: Nubia Bond Date of : 1955 Primary Care Provider: Referring Provider: Daniela Chopra MD We have seen your patient on 11/14/21 and have determined that they are a candidate for amplification (See accompanying report). Specifically, they would benefit from: Hearing aid use in both ears There is a statute that addresses Medical Evaluation Requirements prior to fitting a patient with a hearing aid. According to [place] statute 265 CMR:6.03(1), (a) General. Except as provided in 265 CMR 6.03(1)(b), a reading specialist shall not sell a hearing aid unless the prospective user has presented to the reading specialist a written statement signed by a licensed physician that states that the patient's hearing loss has been medically evaluated and the patient may be considered a candidate for a hearing aid. The medical evaluation must have taken place within the preceding six months. Please note: Due to the [place] Statute referenced above, we cannot accept a signature other than that of a licensed physician. POWER CLEANER OPERATOR and PA signatures cannot be accepted. I am in agreement with the above recommendation. There is no medical contraindication for hearing instrumentation. Physician Signature Date Physician Name (Printed)
--- NOTE | 2021-11-14 10:29 | MHC.AU.AHA ---
Adult Audiological Evaluation Date of Visit: 11/14/21 Margin Trimmer Used: Not Applicable Reason for Appointment: Audiologic re-evaluation due to increasing hearing difficulties. Nubia recently lost her right hearing aid and needs replacement. Previous Hearing Test Results: 02/19/2018 [facility] Right Ear - Normal hearing level at 250 Hz, sloping to a moderate high frequency sensorineural hearing loss with 84% speech understanding at 70 dB HL Left Ear - Moderate sensorineural hearing loss 250-8000 Hz. with 80% speech discrimination at 75 dB HL Ear History: Family History of Hearing Loss?: Yes: Parents Medical History: Medical History: Congestive Heart Failure, Atrial Fibrilation, COPD, Thyroid Disease, high cholesterol, depression Medication List: Furosemide (potentially ototoxic), Amiodarone, Lisinopril, Coumadin, Atorvastatin, Ambien, Zoloft, Thyroid medication, Dulera and Spiriva, Hearing Instrument History- Right Ear: [place]: [employer] Model: [employer] 50-Direct Serial Number: [id number] Battery Size: 13 Repair Warranty: Loss and Damage Warranty: Dispensed By: [facility] Date of Fittin03/17/2018 Hearing Instrument History- Left Ear: [place] [employer]: [employer] Model: [employer] 50-Direct Serial Number: [id number] Battery Size: 13 Warranty: Loss and Damage Warranty: Dispensed By: [facility] Date of Fittin03/17/2018 Otoscopy: Right Ear: Unremarkable Left Ear: Unremarkable Tympanometry: Tympanometry performed due to: To assess integrity of the middle ear system Right Ear: Reduced Middle Ear Compliance (Type As) Left Ear: Normal Middle Ear System (Type A) Hearing Evaluation: Transducer(s) Used: Insert Earphones Bone Conduction Method: Conventional Audiometry Stimuli Used: Pure Tones Right Ear: Description of Hearing: Right Ear - Mild dropping to severe sensorineural hearing loss. Left Ear: Description of Hearing: Left Ear - Moderate sloping to moderately-severe sensorineural hearing loss Speech Recognition Threshold (SRT): Method Used: Monitored Live Voice Stimuli Used: Spondee Words Right Ear: 50 dB HL Left Ear: 45 dB HL Word Discrimination: Method: Recorded Lists Word Lists Used: NU-6 Right Ear: 60% at 85 dB HL Left Ear: 60% at 75 dB HL Most Comfortable Level (MCL): Right Ear: 85 dB HL Left Ear: 75 dB HL Comparison: Compared to most recent evaluation: Hearing thresholds have decreased 15-30 dB for the right ear and 10-15 dB for the left ear with significant decrease in speech discrimination ability for both ears. Interpretation of Results: Compared to 2018 results, hearing ability has decreased significantly for both ears. This change may be a natural decrease which occurs over time; however, Nubia medical conditions, particularly the Congestive Heart Failure and Furosemide, may also relate to the decrease. Given this significant change, as well as the increased difficulty wearing the [id number] style of hearing aids with face masks and glasses which has been a major reason for hearing aid loss, it is recommended Nubia obtain new power custom in-the-ear rechargeable hearing aids. Recommendations: - Medical clearance from a physician is required before fitting. - Prior authorization for new binaural hearing aids will be electronically sent to the insurance when the medical clearance is received. - Hearing Aid Fitting will be scheduled when all materials arrive. - Audiological re-evaluation in one year. Will send a reminder card. Diagnosis: Primary Diagnosis: H90.3 Bilateral Sensorineural Hearing Loss Services Performed: Comprehensive Audiological Evaluation (CPT 36390) Tympanometry (CPT 66794) Signature: Provider: Osorio Grover, DAITYA-A
--- NOTE | 2021-11-14 10:51 | MHC.AU.HAS ---
Hearing Aid Evaluation Date of Visit: 11/14/21 Historical Information: Description of Hearing: Right Ear - Mild dropping to severe sensorineural hearing loss. Left Ear - Moderate sloping to moderately-severe sensorineural hearing loss. 60% speech discrimination for both ears. Current personal amplification information, if applicable: Binaural Phonak [place] B 50-Direct obtained in February 2018. Summary: Lost the right hearing aid. Both aids no longer under warranty. Due to the significant decrease in hearing bilaterally and the wearing of face masks which caused the aid to be lost, recommend new binaural custom rechargeable in-the-ear hearing aids. Hearing Aid Prescription: Based on the individual?s shared listening needs, communication environments, dexterity, desire for connectivity, and personal preferences, the following prescription for amplification has been made: Right ear: Promotion Manager: [employer] Model: Evolve AI 1600 Half-Shell - R Battery Size: Rechargeable Color: Elliott Tape Editor: 120/60 Left ear: Promotion Manager: [employer] Model: Evolv AI 1600 Half Shell - R Battery Size: Rechargeable Color: Elliott Tape Editor: 120/60 Plan of Care: Patient wishes to purchase hearing aids as prescribed Action Taken/Action Needed: Earmold Impressions Taken Prior authorization to be requested Medical Clearance to be requested from PCP/ENT Hearing Instrument Fitting to be scheduled when materials arrive Primary Diagnosis: H90.3 Bilateral Sensorineural Hearing Loss Signature:Provider: Osorio Grover, ADITYA-A
== END 2021-11-14 08:41 | disposition home or self-care (01) ==
LOC: HO.SH 08:40
PROVIDERS: Visit Provider Internal Medicine
DX: H90.3 Sensorineural hearing loss, bilateral (principal); Z95.2 Presence of prosthetic heart valve; Z51.81 Encounter for therapeutic drug level monitoring; Z79.01 Long term (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
CPT/HCPCS: 85610; 92557; 92567; 92591; 99211; V5266; V5275

== ENCOUNTER → 2021-11-28 08:44 | Outpatient (BNVA) | payer MEDICARE, MEDICAID, SELFPAY | PROVIDERS: PCP Internal Medicine; Visit Provider Internal Medicine | DX: Z95.2 Presence of prosthetic heart valve (principal); Z51.81 Encounter for therapeutic drug level monitoring; Z79.01 Long term (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 | CPT/HCPCS: 85610; 99211 ==

== ENCOUNTER 2021-12-11 09:11 | Outpatient (REF) | payer MEDICARE, MEDICAID, SELFPAY | END 2021-12-11 09:12 | disposition home or self-care (01) | LOC: HO.HAP 09:11 | PROVIDERS: Visit Provider Internal Medicine | DX: Z46.1 Encounter for fitting and adjustment of hearing aid (principal); H90.3 Sensorineural hearing loss, bilateral | CPT/HCPCS: V5011; V5020; V5160; V5259 ==

== ENCOUNTER → 2021-12-26 08:13 | Outpatient (BNVA) | payer MEDICARE, MEDICAID, SELFPAY | PROVIDERS: PCP Internal Medicine; Visit Provider Internal Medicine | DX: Z95.2 Presence of prosthetic heart valve (principal); Z51.81 Encounter for therapeutic drug level monitoring; Z79.01 Long term (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 | CPT/HCPCS: 85610; 99211 ==

== ENCOUNTER 2022-01-05 08:50 | Outpatient (REF) | payer MEDICARE, MEDICAID, SELFPAY ==
[2022-01-05 08:33] LABS: Hematocrit 40.7 % (37.0-47.0); Hemoglobin 12.6 g/dl (12.0-16.0); Mean Corpuscular Hemoglobin 27.2 pg (27.0-33.0); Mean Corpuscular Volume 87.9 fL (80.0-98.0); Mean Platelet Volume 11.8 fL (9.4-12.3); Platelet Count 191 X10*3/uL (160-400); Red Blood Count 4.63 X10*6/uL (4.20-5.50); Red Cell Distribution Width 14.9 % (11.0-16.0); White Blood Count 6.1 X10*3/uL (4.8-10.8)
[2022-01-05 09:05] LABS: Alanine Aminotransferase 14 U/L (0-31); Albumin Level 4.3 g/dL (3.5-5.0); Alkaline Phosphatase 122 U/L (39-117); Anion Gap 11 (12-20); Aspartate Amino Transferase 22 U/L (5-31); Bilirubin Total 0.6 mg/dL (0.0-1.0); Blood Urea Nitrogen 19 mg/dL (9-16); Calcium 9.5 mg/dL (8.4-10.2); Carbon Dioxide 27 mmol/L (22-29); Chloride 107 mmol/L (96-108); Cholesterol 168 mg/dL; Estimated Glomerular Filt Rate > 60; Glucose Random 90 mg/dL (60-115); HDL Cholesterol 68 mg/dL; LDL Cholesterol Calculated 89 mg/dl; Potassium 4.1 mmol/L (3.3-5.1); Sodium 141 mmol/L (135-145); Total Protein 7.5 g/dL (6.5-8.0); Triglycerides 57 mg/dL
[2022-01-05 09:29] LABS: Thyroid Stimulating Hormone 2.63 uIU/mL (0.32-4.0); Vitamin D 25-OH Total 17.2 ng/mL (>30)
== END 2022-01-05 08:51 | disposition home or self-care (01) ==
LOC: HO.HAP 08:50
PROVIDERS: Visit Provider Internal Medicine
DX: Z13.89 Encounter for screening for other disorder (principal)
CPT/HCPCS: 36415; 80053; 80061; 82306; 84443; 85027

== ENCOUNTER 2022-01-16 08:08 | Outpatient (REF) | payer MEDICARE, MEDICAID, SELFPAY ==
[2022-01-16 09:30] LABS: Gamma Glutamyl Transpeptidase 15 U/L (7-33)
[2022-01-19 07:16] LABS: 5' Nucleotidase 3 U/L (0-10)
== END 2022-01-16 08:09 | disposition home or self-care (01) ==
LOC: HO.LAB 08:08
PROVIDERS: PCP Internal Medicine; Visit Provider Internal Medicine
DX: R74.8 Abnormal levels of other serum enzymes (principal); Z95.2 Presence of prosthetic heart valve; Z51.81 Encounter for therapeutic drug level monitoring; Z79.01 Long term (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
CPT/HCPCS: 36415; 82977; 83915; 85610; 99211

== ENCOUNTER 2022-03-07 09:31 | Outpatient (REF) | payer MEDICARE, MEDICAID, SELFPAY | END 2022-03-07 09:32 | disposition home or self-care (01) | LOC: HO.HAP 09:31 | PROVIDERS: Visit Provider Internal Medicine | DX: Z13.89 Encounter for screening for other disorder (principal) ==

== ENCOUNTER 2022-03-16 11:14 | Outpatient (REF) | payer MEDICARE, MEDICAID, SELFPAY | END 2022-03-16 11:15 | disposition home or self-care (01) | LOC: HO.HAP 11:14 | PROVIDERS: Visit Provider Internal Medicine | DX: Z13.89 Encounter for screening for other disorder (principal) ==

== ENCOUNTER → 2022-03-21 08:19 | Outpatient (BNVA) | payer MEDICARE, MEDICAID, SELFPAY | PROVIDERS: PCP Internal Medicine; Visit Provider Internal Medicine | DX: Z95.2 Presence of prosthetic heart valve (principal); Z79.01 Long term (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; Z51.81 Encounter for therapeutic drug level monitoring | CPT/HCPCS: 85610; 99211 ==

== ENCOUNTER → 2022-04-16 08:16 | Outpatient (BNVA) | payer MEDICARE, MEDICAID, SELFPAY | PROVIDERS: PCP Internal Medicine; Visit Provider Internal Medicine | DX: Z95.2 Presence of prosthetic heart valve (principal); Z79.01 Long term (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; Z51.81 Encounter for therapeutic drug level monitoring | CPT/HCPCS: 85610; 99211 ==

== ENCOUNTER → 2022-05-28 08:26 | Outpatient (BNVA) | payer MEDICARE, MEDICAID, SELFPAY | PROVIDERS: PCP Internal Medicine; Visit Provider Internal Medicine | DX: Z95.2 Presence of prosthetic heart valve (principal); Z79.01 Long term (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; Z51.81 Encounter for therapeutic drug level monitoring | CPT/HCPCS: 85610; 99211 ==

== ENCOUNTER → 2022-06-26 08:16 | Outpatient (BNVA) | payer MEDICARE, MEDICAID, SELFPAY | PROVIDERS: PCP Internal Medicine; Visit Provider Internal Medicine | DX: Z95.2 Presence of prosthetic heart valve (principal); Z51.81 Encounter for therapeutic drug level monitoring; Z79.01 Long term (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 | CPT/HCPCS: 85610; 99211 ==

== ENCOUNTER → 2022-06-27 12:29 | Outpatient (BNVA) | payer MEDICARE, MEDICAID, SELFPAY | PROVIDERS: PCP Internal Medicine; Visit Provider Internal Medicine Cardiovascular Disease | DX: I35.0 Nonrheumatic aortic (valve) stenosis (principal); I48.19 Other persistent atrial fibrillation; I50.30 Unspecified diastolic (congestive) heart failure; Z95.2 Presence of prosthetic heart valve | CPT/HCPCS: 93005; 99212 ==

== ENCOUNTER → 2022-07-04 08:26 | Outpatient (BNVA) | payer MEDICARE, MEDICAID, SELFPAY | PROVIDERS: PCP Internal Medicine; Visit Provider Internal Medicine | DX: Z95.2 Presence of prosthetic heart valve (principal); Z79.01 Long term (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; Z51.81 Encounter for therapeutic drug level monitoring | CPT/HCPCS: 85610; 99211 ==

== ENCOUNTER → 2022-07-10 08:26 | Outpatient (BNVA) | payer MEDICARE, MEDICAID, SELFPAY | PROVIDERS: PCP Internal Medicine; Visit Provider Internal Medicine | DX: Z95.2 Presence of prosthetic heart valve (principal); Z51.81 Encounter for therapeutic drug level monitoring; Z79.01 Long term (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 | CPT/HCPCS: 85610; 99212 ==

== ENCOUNTER → 2022-07-12 14:37 | Outpatient (BNVA) | payer MEDICARE, MEDICAID, SELFPAY | PROVIDERS: PCP Internal Medicine; Visit Provider Internal Medicine | DX: Z95.2 Presence of prosthetic heart valve (principal); Z51.81 Encounter for therapeutic drug level monitoring; Z79.01 Long term (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 | CPT/HCPCS: 85610; 99212 ==

== ENCOUNTER → 2022-07-13 13:48 | Day surgery (SDC) | payer MEDICARE, MEDICAID, SELFPAY ==
[2022-07-10 08:50] VITALS: BMI 32.5
--- NOTE | 2022-07-12 12:33 | HO.ANESPROP2 ---
HPI - Anesthesia Eval Consult details Narrative: 66yo F for Cardioversion Coumadin for afib/flutter PMFSH Active Problems Active Problems: All Active Problems (Updated 06/27/22 @ 13:07 by Luis Antonio Nelson MD) Persistent atrial fibrillation (Acute) S/P MVR (mitral valve replacement) (Acute) (HFpEF) heart failure with preserved ejection fraction (Acute) Aortic stenosis (Acute) COPD (chronic obstructive pulmonary disease) (Acute) Obesity (Acute) Current use of anticoagulant therapy (Acute) Past Medical History Medical History (Updated 06/27/22 @ 13:07 by Luis Antonio Nelson MD) (HFpEF) heart failure with preserved ejection fraction Aortic stenosis Atrial flutter COPD (chronic obstructive pulmonary disease) Obesity Paroxysmal atrial fibrillation Family History Family History Father No problems noted. Mother CVD (cardiovascular disease) Surgical History Surgical History History of sleeve gastrectomy (~2017) Hx of section Hx of mitral valve replacement (~2004) Hx of transesophageal echocardiography (SHELIA) for monitoring (~2015) S/P MVR (mitral valve replacement) Social History Social History Household Members: Family Housing: House Do you presently have visiting nurse or other home services: No Alcohol intake: never Patient Tobacco Use Status: Former Tobacco user Tobacco use type: Cigarette Advance Directives Date on File: 04/27/21 service: No Current occupational status: disabled Meds Allergies Allergy/AdvReac Type Severity Reaction Status Date / Time PAPER TAPE Allergy Mild REDNESS, Uncoded 07/10/22 08:34 RASH Home Medications Medication Instructions Recorded Confirmed Last Taken Type furosemide 20 mg tablet (Lasix) 40 mg PO DAILY@1700 09/01/20 07/10/22 Unknown History levothyroxine 25 mcg tablet 25 mcg PO DAILY 09/01/20 07/10/22 04/26/21 History lisinopril 5 mg tablet 5 mg PO DAILY 09/01/20 07/10/22 04/26/21 History tiotropium bromide 2.5 2 puff inhalation DAILY 09/01/20 07/10/22 04/26/21 History mcg/actuation mist for inhalation (Spiriva Respimat) albuterol sulfate 90 mcg/actuation 2 puff inhalation Q4-6H PRN 04/26/21 07/10/22 Unknown History aerosol inhaler (ProAir HFA) Respiratory Distress atorvastatin 20 mg tablet 20 mg PO DAILY 04/26/21 07/10/22 04/26/21 History ferrous sulfate 325 mg (65 mg 325 mg PO 1700,1900,2100 04/26/21 07/10/22 Unknown History iron) tablet sertraline 100 mg tablet 200 mg PO DAILY 04/26/21 07/10/22 04/26/21 History zolpidem 5 mg tablet 5 mg PO BEDTIME PRN Sleep 04/26/21 07/10/22 Unknown History warfarin 2.5 mg tablet 2.5 mg PO .COMPLEX 07/13/21 07/10/22 Unknown History budesonide-formoterol HFA 160 2 puff inhalation BID 05/28/22 07/10/22 Unknown History mcg-4.5 mcg/actuation aerosol inhaler (Symbicort) Exam Exam Date and Time: July 12, 2022 1233 Height,Weight and Vital Signs: Height 5 ft 1 in Weight 78 kg Pertinent Lab Results Pertinent Lab Results: Laboratory Tests 01/05/22 01/05/22 08:19 08:19 WBC 6.1 Hgb 12.6 Hct 40.7 Plt Count 191 Sodium 141 Potassium 4.1 Chloride 107 Carbon Dioxide 27 BUN 19 H Creatinine 0.76 Narrative Narrative: EKG 05/2022 atrial fibrillation 72 beats per minute with nonspecific ST changes ECHO 09/2021 Conclusions: - 1.? Normal LV systolic function? 2. Severely dilated left atrium? 3. Moderate to severe aortic stenosis? 4. Normally functioning mechanical mitral prosthesis with mean ? gradient of 5 mmHg ? 5.? Borderline RV systolic pressure? 6.? No gross pericardial effusion?
--- NOTE | 2022-07-13 14:06 | ECG_ITS ---
Test Reason : preop Blood Pressure : / mmHG Vent. Rate : 065 BPM Atrial Rate : 065 BPM P-R Int : 110 ms QRS Dur : 098 ms QT Int : 450 ms P-R-T Axes : 084 054 005 degrees QTc Int : 468 ms Sinus rhythm with short MA Nonspecific ST and T wave abnormality Abnormal ECG When compared with ECG of 26-APR-2021 15:39, Sinus rhythm has replaced Atrial fibrillation Nonspecific T wave abnormality now evident in Anterior leads Referred By: Luis Antonio Nelson Electronically Signed By:MEL JERONIMO
[2022-07-13 14:25] LABS: INTERNATIONAL NORM RATIO 2.7 (0.9-1.1); Prothrombin Time 32.1 SEC (10.0-13.1)
--- NOTE | 2022-07-13 14:29 | PC.NURSE ---
Patient in sinus rhythm, confirmed with 12 lead EKG. Sent home per Dr Nelson.
== END ==
PROVIDERS: Nurse Practitioner; PCP Internal Medicine; Visit Provider Internal Medicine Cardiovascular Disease
DX: I48.19 Other persistent atrial fibrillation (principal); Z53.8 Procedure and treatment not carried out for other reasons
CPT/HCPCS: 36415; 85610; 93005

== ENCOUNTER → 2022-07-16 09:03 | Outpatient (BNVA) | payer MEDICARE, MEDICAID, SELFPAY | PROVIDERS: PCP Internal Medicine; Visit Provider Internal Medicine | DX: Z95.2 Presence of prosthetic heart valve (principal); Z79.01 Long term (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; Z51.81 Encounter for therapeutic drug level monitoring | CPT/HCPCS: 85610; 99211 ==

== ENCOUNTER 2022-07-19 08:38 | Outpatient (REF) | payer MEDICARE, MEDICAID, SELFPAY ==
--- NOTE | ~2022-07-19 | XR_ITS ---
EXAMINATION: XR CHEST CLINICAL INFORMATION: Shortness of breath COMPARISON: 04/26/2021 TECHNIQUE: 2 views of the chest were obtained. FINDINGS: Cardiac surgery. The cardiac silhouette is mildly enlarged, but similar to prior. There is central vascular congestion and mild interstitial edema. Mild bibasilar atelectasis. No sizable effusion. No focal consolidation. XR/XR chest 2V IMPRESSION: Vascular congestion with mild interstitial pulmonary edema
[2022-07-19 08:55] LABS: MANUAL DIFF FLAG NO
[2022-07-19 09:48] LABS: Basophils Absolute Auto 0.1 X10*3/uL (0.0-0.2); Basophils Percent Auto 0.7 % (0-2); Eosinophils Absolute Auto 0.2 X10*3/uL (0.0-0.4); Eosinophils Percent Auto 2.3 % (0-4); Hematocrit 33.3 % (37.0-47.0); Hemoglobin 10.5 g/dl (12.0-16.0); Imm Gran Abs Auto 0.02 X10*3/uL (0.00-0.03); Imm Gran Pct Auto 0.3 % (0.0-0.4); Lymphocytes Absolute Auto 0.5 X10*3/uL (1.2-4.9); Lymphocytes Percent Auto 7.6 % (20-40); Mean Corpuscular HGB Conc 31.5 g/dl (31.0-35.0); Mean Corpuscular Hemoglobin 27.7 pg (27.0-33.0); Mean Corpuscular Volume 87.9 fL (80.0-98.0); Mean Platelet Volume 12.4 fL (9.4-12.3); Monocytes Absolute Auto 0.4 X10*3/uL (0.1-1.2); Monocytes Percent Auto 6.5 % (2-11); Neutrophils Absolute Auto 5.6 x10*3/uL (2.0-8.3); Neutrophils Percent Auto 82.6 % (45-73); Platelet Count 169 X10*3/uL (160-400); Red Blood Count 3.79 X10*6/uL (4.20-5.50); Red Cell Distribution Width 14.1 % (11.0-16.0); White Blood Count 6.8 X10*3/uL (4.8-10.8)
[2022-07-19 10:01] LABS: D Dimer High Sensitivity 152 NG/ML
== END 2022-07-19 08:39 | disposition home or self-care (01) ==
LOC: HO.LAB 08:38
PROVIDERS: PCP Internal Medicine; Visit Provider Internal Medicine
DX: Z95.2 Presence of prosthetic heart valve (principal); R06.02 Shortness of breath; Z51.81 Encounter for therapeutic drug level monitoring; Z79.01 Long term (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
CPT/HCPCS: 36415; 71046; 85025; 85379; 85610; 99211

== ENCOUNTER 2022-07-21 06:26 | Emergency (ER) | payer MEDICARE, MEDICAID, SELFPAY ==
--- NOTE | 2022-07-21 | ECG_ITS ---
Test Reason : chest tightness Blood Pressure : / mmHG Vent. Rate : 074 BPM Atrial Rate : 074 BPM P-R Int : 132 ms QRS Dur : 098 ms QT Int : 396 ms P-R-T Axes : 087 053 -26 degrees QTc Int : 439 ms Normal sinus rhythm Minimal voltage criteria for LVH, may be normal variant ( [place] product ) Nonspecific ST and T wave abnormality Abnormal ECG When compared with ECG of 13-JUL-2022 14:06, No significant change was found Referred By: Generic ED Physician Electronically Signed By:MEL JERONIMO
--- NOTE | ~2022-07-21 | XR_ITS ---
EXAMINATION: XR CHEST CLINICAL INFORMATION: Chest tightness COMPARISON: Chest x-ray July 19, 2022 and April 26, 2021 TECHNIQUE: 2 views of the chest were obtained. FINDINGS: Similar prominence of the cardiac silhouette. Patient is status post valve replacement. The lungs are adequately aerated. There is diffuse prominence of the central pulmonary vasculature and interstitial markings. No gross lobar consolidation identified. Subtle linear opacity of the right lung base suggesting atelectasis. No gross pleural effusion. No pneumothorax. Mild degenerative changes of the spine. Surgical clips project over the upper abdomen. XR/XR chest 2V IMPRESSION: Radiographs suggest vascular congestion and mild interstitial edema. Follow-up imaging recommended status post treatment to ensure improvement.
[2022-07-21 07:12] VITALS: BP 105/46; PULSE 74; RESP 16; O2SAT 94; BMI 31.6
[2022-07-21 11:20] VITALS: BP 103/45; PULSE 69; RESP 16; TEMP 37.1; O2SAT 94
--- NOTE | 2022-07-21 11:30 | PC.NURSE ---
Addendum entered by Slim Chapa 07/21/22 11:38: Pt BP diastolic is low for her based line, pt is placed on the telemetry. Will continue to monitor. Original Note: Pt V/S are stable, pt lungs sound on in third lobes crackes, and normal sound upper lobes. Pt labs has been drawn.
[2022-07-21 11:32] LABS: MANUAL DIFF FLAG NO
[2022-07-21 11:33] LABS: Basophils Percent Auto 0.6 % (0-2); Eosinophils Absolute Auto 0.2 X10*3/uL (0.0-0.4); Eosinophils Percent Auto 2.2 % (0-4); Hematocrit 30.1 % (37.0-47.0); Hemoglobin 9.6 g/dl (12.0-16.0); Imm Gran Abs Auto 0.03 X10*3/uL (0.00-0.03); Imm Gran Pct Auto 0.4 % (0.0-0.4); Lymphocytes Absolute Auto 0.5 X10*3/uL (1.2-4.9); Lymphocytes Percent Auto 7.7 % (20-40); Mean Corpuscular HGB Conc 31.9 g/dl (31.0-35.0); Mean Corpuscular Hemoglobin 28.1 pg (27.0-33.0); Mean Platelet Volume 11.6 fL (9.4-12.3); Monocytes Absolute Auto 0.4 X10*3/uL (0.1-1.2); Monocytes Percent Auto 6.3 % (2-11); Neutrophils Absolute Auto 5.7 x10*3/uL (2.0-8.3); Neutrophils Percent Auto 82.8 % (45-73); Platelet Count 177 X10*3/uL (160-400); Red Blood Count 3.42 X10*6/uL (4.20-5.50); Red Cell Distribution Width 14.2 % (11.0-16.0); White Blood Count 6.9 X10*3/uL (4.8-10.8)
--- NOTE | 2022-07-21 11:39 | ED.SOB ---
HPI - SOB/Dyspnea General Chief Complaint: Dyspnea Stated Complaint: Tightness, hard time breathing Time Seen by Provider: 07/21/22 06:38 Source: patient Mode of arrival: ambulatory Limitations: no limitations History of Present Illness HPI Narrative: 66-year-old female came in for evaluation of difficulty breathing for the past 4 days. Patient with history of COPD, heart failure, , MVR, AFib on Coumadin, anemia takes iron pills patient declined any source of losing blood at this point. Patient been having shortness of breath for the past 4 days worsening with exertion better with rest, SOB not associated with CP, fever, chills, or coughing. Declined noticing any lower extremity swelling or tenderness. Related Data Home Medications Medication Instructions Recorded Confirmed furosemide 20 mg tablet (Lasix) 20 mg PO DAILY@1700 09/01/20 07/21/22 levothyroxine 25 mcg tablet 25 mcg PO DAILY 09/01/20 07/21/22 lisinopril 5 mg tablet 5 mg PO DAILY 09/01/20 07/21/22 albuterol sulfate 90 mcg/actuation 2 puff inhalation Q4-6H PRN 04/26/21 07/21/22 aerosol inhaler (ProAir HFA) Respiratory Distress atorvastatin 20 mg tablet 20 mg PO DAILY 04/26/21 07/21/22 ferrous sulfate 325 mg (65 mg 325 mg PO TID 04/26/21 07/21/22 iron) tablet sertraline 100 mg tablet 200 mg PO DAILY 04/26/21 07/21/22 warfarin 2.5 mg tablet 2.5 mg PO .COMPLEX 07/13/21 07/19/22 fluticasone fur. 200 mcg-umeclid 1 inh inhalation Q24H 07/21/22 07/21/22 62.5 mcg-vilant 25 mcg inhalat.powder (Trelegy Ellipta) warfarin 2.5 mg tablet 7.5 mg PO MOWESA 07/21/22 07/21/22 warfarin 2.5 mg tablet 10 mg PO SUTUTHFR 07/21/22 07/21/22 Previous Rx's Medication Instructions Recorded amiodarone 200 mg tablet 200 mg PO DAILY #90 tabs 07/20/22 Allergies Allergy/AdvReac Type Severity Reaction Status Date / Time PAPER TAPE Allergy Mild REDNESS, Uncoded 07/19/22 09:24 RASH Review of Systems Review of Systems: All other systems are reviewed and are negative Constitutional: Reports as per HPI and Reports no additional constitutional complaints Eyes: Reports as per HPI and Reports no additional eye complaints Reports system reviewed and no additional complaints, except as documented Cardiovascular: Reports as per HPI and Reports no additional cardiovascular complaints Respiratory: Reports as per HPI and Reports no additional respiratory complaints Gastrointestinal: Reports as per HPI and Reports no additional gastrointestinal complaints Genitourinary: Reports no additional female genitourinary complaints Musculoskeletal: Reports no additional musculoskeletal complaints Skin/Breast: Reports system reviewed and no additional complaints, except as docu Psychiatric: Reports no additional psychiatric complaints Endocrine: Reports no additional endocrine complaints Hematologic/Lymphatic: Reports no additional hematologic/lymphatic complaints Allergic/Immunologic: Reports no additional allergic/immunologic complaints Reports system reviewed and no additional complaints, except as documented and Reports Abnormal speech present [facility] Past Medical History Medical History (HFpEF) heart failure with preserved ejection fraction Aortic stenosis Atrial flutter COPD (chronic obstructive pulmonary disease) Obesity Paroxysmal atrial fibrillation Surgical History History of sleeve gastrectomy (~2017) Hx of section Hx of mitral valve replacement (~2004) Hx of transesophageal echocardiography (SHELIA) for monitoring (~2015) S/P MVR (mitral valve replacement) Family History Family History Father No problems noted. Mother CVD (cardiovascular disease) Social History Social History Household Members: Family Housing: House Do you presently have visiting nurse or other home services: No Alcohol intake: never Patient Tobacco Use Status: Former Tobacco user Tobacco use type: Cigarette Use of substances other than those prescribed or required for medical reasons: No Advance Directives: No Advance Directives Information Provided: Yes Advance Directives Date on File: 04/27/21 service: No Current occupational status: disabled Physical Exam Vital Signs: Vital Signs: Last Vital Signs Temp 98.7 F 07/21/22 12:30 Pulse 78 07/21/22 14:00 Resp 18 07/21/22 14:00 BP 131/36 L 07/21/22 14:00 Pulse Ox 91 L 07/21/22 14:00 O2 Del Method 07/21/22 14:00 BMI result Body Mass Index 31.6 Vital signs have been reviewed as appeared to be correct. Blood pressure normal. Heart rate normal. Respiration rate normal. Temperature normal. Oxygen saturation normal. Appearance: Alert. Oriented X3. No acute distress. Head: Normal external exam. Normocephalic. Atraumatic. No Ramachandran signs noted. No raccoon eyes noted Eyes: PERRLA. EOMI. Conjunctiva and sclera normal. Eyelids normal. ENT: TM's Normal. Pharynx normal. Uvula midline. Moist mucous membranes. No trismus noted. No drooling noted. No muffled voice noted. Neck: Normal inspection. Neck supple. FROM. No adenopathy. Thyroid Normal. No meningeal signs. No neck mass noted. CVS: Normal heart rate and rhythm. Heart sound normal. No murmurs noted. Pulses normal throughout. Respiratory: No respiratory distress. Painless inspiration. Breath sounds normal. Diffuse mild expiratory wheezing with prolonged expiration. Chest nontender. No accessory muscle usage noted or decreased air movement noted. Abdomen: Soft and nontender. Bowel sounds normal in all 4 quadrants. No distention noted. No organomegaly noted. No visible injury noted. Back: No CVA tenderness. Full range of motion noted. Skin: Skin warm and dry. Normal skin color. Normal skin turgor. No rashes/lesions/lacerations noted. Extremities: No lower extremity edema. Extremities exhibit normal range of motion. Extremities nontender. Neuro: Oriented X 3. Cranial nerve exam: II-XII are grossly intact No motor deficit. No sensory deficit. Reflexes normal. Course Course Course Narrative: 66-year-old female history COPD presented with acute respiratory distress. Acute COPD exacerbation causing patient's symptoms patient was started on bronchodilator/Solu-Medrol/magnesium. INR is 5.2 will hold Coumadin for tonight. Acute on chronic anemia no source of bleeding. No risk for PE D-dimer still within a negative value patient is supratherapeutic on Coumadin. Reevaluation(s) Reevaluation #1: Patient feels better do not feel to be admitted to the hospital was evaluated by Dr. Zaragoza patient do need to be admitted to the hospital. Time: 16:03 MDM - SOB/Dyspnea Lab Data Attestation: I reviewed the patient's lab results. Result diagrams: 07/21/22 11:27 07/21/22 11:27 Labs: Lab Results 07/21/22 07/21/22 07/21/22 Range/Units 11:27 11:27 11:27 WBC 6.9 (4.8-10.8) X10*3/uL RBC 3.42 L (4.20-5.50) X10*6/uL Hgb 9.6 L (12.0-16.0) g/dl Hct 30.1 L (37.0-47.0) % MCV 88.0 (80.0-98.0) fL MCH 28.1 (27.0-33.0) pg MCHC 31.9 (31.0-35.0) g/dl RDW 14.2 (11.0-16.0) % Plt Count 177 (160-400) X10*3/uL MPV 11.6 (9.4-12.3) fL Immature Gran % (Auto) 0.4 (0.0-0.4) % Neut % (Auto) 82.8 H (45-73) % Lymph % (Auto) 7.7 L (20-40) % [place] % (Auto) 6.3 (2-11) % Eos % (Auto) 2.2 (0-4) % Baso % (Auto) 0.6 (0-2) % Lymph # (Auto) 0.5 L (1.2-4.9) X10*3/uL [place] # (Auto) 0.4 (0.1-1.2) X10*3/uL Eos # (Auto) 0.2 (0.0-0.4) X10*3/uL Baso # (Auto) 0.0 (0.0-0.2) X10*3/uL Abs Immat Gran (auto) 0.03 (0.00-0.03) X10*3/uL Absolute Neuts (auto) 5.7 (2.0-8.3) x10*3/uL Absolute Nucleated RBC 0.000 (0.0-0.012) X10*3/uL Nucleated RBC % (auto) 0.0 (0.0-0.2) /100WBC PT (10.0-13.1) SEC INR (0.9-1.1) APTT (26.0-36.4) SEC D-Dimer High Sensitivty NG/ML Sodium 140 (135-145) mmol/L Potassium 4.0 (3.3-5.1) mmol/L Chloride 106 (96-108) mmol/L Carbon Dioxide 23 (22-29) mmol/L Anion Gap 15 (12-20) BUN 20 H (9-16) mg/dL Creatinine 0.96 (0.5-1.4) mg/dL Estim Creat Clear Calc 56.6 Estimated GFR 58 Random Glucose 106 (60-115) mg/dL Calcium 8.7 D (8.4-10.2) mg/dL Magnesium 2.2 (1.6-2.6) mg/dL Total Bilirubin 0.5 (0.0-1.0) mg/dL Direct Bilirubin 0.3 (0.0-0.5) mg/dL AST 16 (5-31) U/L ALT 10 (0-31) U/L Alkaline Phosphatase 96 D (39-117) U/L Troponin I High Sens 9.9 (<3.5-17.0) ng/L B-Natriuretic Peptide 161 H (<100) pg/mL Total Protein 6.8 (6.5-8.0) g/dL Albumin 3.8 (3.5-5.0) g/dL COVID-19 (ROS) (Negative) COVID-19 Clin Com 07/21/22 07/21/22 07/21/22 Range/Units 11:27 11:27 13:07 WBC (4.8-10.8) X10*3/uL RBC (4.20-5.50) X10*6/uL Hgb (12.0-16.0) g/dl Hct (37.0-47.0) % MCV (80.0-98.0) fL MCH (27.0-33.0) pg MCHC (31.0-35.0) g/dl RDW (11.0-16.0) % Plt Count (160-400) X10*3/uL MPV (9.4-12.3) fL Immature Gran % (Auto) (0.0-0.4) % Neut % (Auto) (45-73) % Lymph % (Auto) (20-40) % [place] % (Auto) (2-11) % Eos % (Auto) (0-4) % Baso % (Auto) (0-2) % Lymph # (Auto) (1.2-4.9) X10*3/uL [place] # (Auto) (0.1-1.2) X10*3/uL Eos # (Auto) (0.0-0.4) X10*3/uL Baso # (Auto) (0.0-0.2) X10*3/uL Abs Immat Gran (auto) (0.00-0.03) X10*3/uL Absolute Neuts (auto) (2.0-8.3) x10*3/uL Absolute Nucleated RBC (0.0-0.012) X10*3/uL Nucleated RBC % (auto) (0.0-0.2) /100WBC PT 65.3 H (10.0-13.1) SEC INR 5.3 H* D (0.9-1.1) APTT 43.7 H (26.0-36.4) SEC D-Dimer High Sensitivty 207 NG/ML Sodium (135-145) mmol/L Potassium (3.3-5.1) mmol/L Chloride (96-108) mmol/L Carbon Dioxide (22-29) mmol/L Anion Gap (12-20) BUN (9-16) mg/dL Creatinine (0.5-1.4) mg/dL Estim Creat Clear Calc Estimated GFR Random Glucose (60-115) mg/dL Calcium (8.4-10.2) mg/dL Magnesium (1.6-2.6) mg/dL Total Bilirubin (0.0-1.0) mg/dL Direct Bilirubin (0.0-0.5) mg/dL AST (5-31) U/L ALT (0-31) U/L Alkaline Phosphatase (39-117) U/L Troponin I High Sens (<3.5-17.0) ng/L B-Natriuretic Peptide (<100) pg/mL Total Protein (6.5-8.0) g/dL Albumin (3.5-5.0) g/dL COVID-19 (ROS) Negative (Negative) COVID-19 Clin Com See Note Imaging Data Chest x-ray: Attestation: I personally reviewed and interpreted this imaging study as follows: Radiologist's impression: Radiographs suggest vascular congestion and mild interstitial edema. Follow-up imaging recommended status post treatment to ensure improvement. Discharge Plan Discharge Clinical Impression: Acute exacerbation of chronic obstructive airways disease, Anemia Patient Disposition: Home, Self-Care Instructions: COPD (Chronic Obstructive Pulmonary Disease) (ED) Prescriptions: No Action amiodarone 200 mg tablet 200 mg PO DAILY Qty: 90 3RF sertraline 100 mg Tablet 200 mg PO DAILY atorvastatin 20 mg Tablet 20 mg PO DAILY ferrous sulfate 325 mg (65 mg iron) Tablet 325 mg PO TID albuterol sulfate [ProAir HFA] 90 mcg/actuation Hfa Aerosol Inhaler 2 puff INHALATION Q4-6H PRN (Reason: Respiratory Distress) warfarin 2.5 mg tablet 2.5 mg PO .COMPLEX Protocol: Dose Management Condition: Saturday (Week One) Dose/Route: 10 mg Instruction: 4 x 2.5 mg tablets Condition: Saturday Dose/Route: 10 mg Instruction: 4 x 2.5 mg tablets Condition: Saturday Dose/Route: 0 mg Instruction: 0 tablets Condition: Saturday Dose/Route: 2.5 mg Instruction: 1 x 2.5 mg tablet Condition: Dose/Route: 10 mg Instruction: 4 x 2.5 mg tablets Condition: Saturday Dose/Route: 10 mg Instruction: 4 x 2.5 mg tablets Condition: Saturday Dose/Route: 7.5 mg Instruction: 3 x 2.5 mg tablets Condition: Saturday (Week Two) Dose/Route: 10 mg Instruction: 4 x 2.5 mg tablets Condition: Saturday Dose/Route: 7.5 mg Instruction: 3 x 2.5 mg tablets Condition: Saturday Dose/Route: 10 mg Instruction: 4 x 2.5 mg tablets Condition: Saturday Dose/Route: 7.5 mg Instruction: 3 x 2.5 mg tablets Condition: Dose/Route: 10 mg Instruction: 4 x 2.5 mg tablets Condition: Saturday Dose/Route: 10 mg Instruction: 4 x 2.5 mg tablets Condition: Saturday Dose/Route: 7.5 mg Instruction: 3 x 2.5 mg tablets Protocol Text: Adjustment Start Date: 07/19/22 INR Value: 2.8 INR Date: 07/19/22 Recheck Date: 07/26/22 Additional Instructions: INR now in range follow new dosing balance greens and reds in diet Rx Instructions: 2.5 mg PO 10mg x5days/ 7.5mg x2days; 10mg x5days/ 7.5mg x2days Trelegy Ellipta 200-62.5-25 mcg Blister With Device 1 inh INHALATION Q24H warfarin 2.5 mg tablet 10 mg PO SUTUTHFR warfarin 2.5 mg tablet 7.5 mg PO MOWESA lisinopril 5 mg tablet 5 mg PO DAILY Hold Instructions: Doctor's Order, until you see your primary care levothyroxine 25 mcg tablet 25 mcg PO DAILY furosemide [Lasix] 20 mg tablet 20 mg PO DAILY@1700 Referrals: Daniela Chopra MD [Primary Care Provider] -
[2022-07-21 11:44] LABS: Partial Thromboplastin Time 43.7 SEC (26.0-36.4)
[2022-07-21 11:48] LABS: Prothrombin Time 65.3 SEC (10.0-13.1)
[2022-07-21 11:52] LABS: INTERNATIONAL NORM RATIO 5.3 (0.9-1.1)
[2022-07-21 12:02] LABS: Alanine Aminotransferase 10 U/L (0-31); Albumin Level 3.8 g/dL (3.5-5.0); Alkaline Phosphatase 96 U/L (39-117); Anion Gap 15 (12-20); Aspartate Amino Transferase 16 U/L (5-31); Bilirubin Direct 0.3 mg/dL (0.0-0.5); Bilirubin Total 0.5 mg/dL (0.0-1.0); Blood Urea Nitrogen 20 mg/dL (9-16); Calcium 8.7 mg/dL (8.4-10.2); Carbon Dioxide 23 mmol/L (22-29); Chloride 106 mmol/L (96-108); Creatinine Clr Calc Pharmacy 56.6; Estimated Glomerular Filt Rate 58; Glucose Random 106 mg/dL (60-115); Magnesium 2.2 mg/dL (1.6-2.6); Sodium 140 mmol/L (135-145); Total Protein 6.8 g/dL (6.5-8.0)
[2022-07-21 12:07] LABS: B Type Natriuretic Peptide 161 pg/mL (<100); Troponin-I High Sensitivity 9.9 ng/L (<3.5-17.0)
[2022-07-21 12:30] VITALS: BP 117/45; PULSE 64; RESP 16; TEMP 37.1; O2SAT 91
[2022-07-21 12:31] LABS: COVID-19 Test Negative (Negative); IDNOW Serial# 9DB6401D
[2022-07-21] MEDS: Magnesium Sulfate/H2O 2 GM/50 ML PIGGYBACK IV (13:07)
[2022-07-21] MEDS: methylPREDNISolone Sod Succ 125 MG/2 ML VIAL IVPUSH (13:07)
[2022-07-21] MEDS: Albuterol Sulfate (0.083%) 2.5 MG/3 ML VIAL.NEB INHALE (13:14)
[2022-07-21] MEDS: Albuterol/Iprat 2.5/0.5MG 3 ML AMPUL.NEB INHALE (13:14)
--- NOTE | 2022-07-21 13:16 | PC.NURSE ---
Pt meds administered as order. Pt vitals are increasing, Pt is currently receiving the the asthma treatment. will continue to monitor.
[2022-07-21 13:17] VITALS: PULSE 70; RESP 18; O2SAT 91
[2022-07-21 13:26] LABS: D Dimer High Sensitivity 207 NG/ML
[2022-07-21 14:00] VITALS: BP 131/36; PULSE 78; RESP 18; O2SAT 91
--- NOTE | 2022-07-21 15:41 | PHA.MEDREC ---
Pharmacy Consult ? Medication Reconciliation Pharmacy has completed the medication reconciliation. PT TAKES 7.5 MG WARFARIN MOWESA, 10MG EVERY OTHER DAY
== END 2022-07-22 08:56 | disposition home or self-care (01) ==
PROVIDERS: Physician Assistant; Emergency Provider Emergency Medicine; PCP Internal Medicine
DX: J44.1 Chronic obstructive pulmonary disease with (acute) exacerbation (principal); R06.02 Shortness of breath; D64.9 Anemia, unspecified; Z20.822 Contact with and (suspected) exposure to COVID-19; I50.30 Unspecified diastolic (congestive) heart failure; I48.0 Paroxysmal atrial fibrillation; E66.9 Obesity, unspecified; Z68.31 Body mass index [BMI] 31.0-31.9, adult; Z95.4 Presence of other heart-valve replacement; Z87.891 Personal history of nicotine dependence; Z79.02 Long term (current) use of antithrombotics/antiplatelets; Z79.01 Long term (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; Z79.899 Other long term (current) drug therapy
CPT/HCPCS: 36415; 71046; 80048; 80076; 83735; 83880; 84484; 85025; 85379; 85610; 85730; 87635; 93005; 96365; 96375; 99284; 99285; J2930; J3475

== ENCOUNTER → 2022-07-25 10:11 | Outpatient (REF) | payer MEDICARE, MEDICAID, SELFPAY ==
--- NOTE | 2022-07-25 10:14 | HM_ITS ---
* Total monitoring time 2 days. * Underlying rhythm is sinus. Average rate 71/Min. Range 59 to 103/Min. * Rare supraventricular and ventricular ectopy with minimal burden. * No definitive atrial fibrillation but some strips have some artifact making interpretation difficult. * Shortness of breath in diary without any clear correlations. MTDD
== END ==
LOC: HO.CARD 10:11
PROVIDERS: Visit Provider Internal Medicine Cardiovascular Disease
DX: I48.19 Other persistent atrial fibrillation (principal)
CPT/HCPCS: 85610; 93242; 99211

== ENCOUNTER → 2022-07-25 14:27 | Outpatient (BNV) | payer MEDICARE, MEDICAID, SELFPAY | PROVIDERS: PCP Internal Medicine; Visit Provider Internal Medicine | DX: D64.9 Anemia, unspecified (principal); D51.9 Vitamin B12 deficiency anemia, unspecified | CPT/HCPCS: 99204; 99213; 99214 ==

== ENCOUNTER → 2022-07-27 09:11 | Outpatient (BNVA) | payer MEDICARE, MEDICAID, SELFPAY | PROVIDERS: PCP Internal Medicine; Visit Provider Internal Medicine | DX: Z95.2 Presence of prosthetic heart valve (principal); Z51.81 Encounter for therapeutic drug level monitoring; Z79.01 Long term (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 | CPT/HCPCS: 85610; 99211 ==

== ENCOUNTER → 2022-07-31 13:48 | Outpatient (BNVA) | payer MEDICARE, MEDICAID, SELFPAY | PROVIDERS: PCP Internal Medicine; Visit Provider Internal Medicine | DX: Z95.2 Presence of prosthetic heart valve (principal); Z79.01 Long term (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; Z51.81 Encounter for therapeutic drug level monitoring | CPT/HCPCS: Q3014 ==

== ENCOUNTER 2022-08-15 08:09 | Outpatient (REF) | payer MEDICARE, MEDICAID, SELFPAY ==
[2022-08-15 09:16] LABS: Anion Gap 15 (12-20); Blood Urea Nitrogen 22 mg/dL (9-16); Calcium 8.5 mg/dL (8.4-10.2); Carbon Dioxide 23 mmol/L (22-29); Chloride 109 mmol/L (96-108); Estimated Glomerular Filt Rate 56; Glucose Random 85 mg/dL (60-115); Potassium 4.2 mmol/L (3.3-5.1); Sodium 143 mmol/L (135-145)
[2022-08-15 10:21] LABS: Prothrombin Time 96.6 SEC (10.0-13.1)
[2022-08-15 10:24] LABS: INTERNATIONAL NORM RATIO 7.7 (0.9-1.1)
== END 2022-08-15 08:10 | disposition home or self-care (01) ==
LOC: HO.LAB 08:09
PROVIDERS: Internal Medicine; PCP Internal Medicine; Visit Provider Internal Medicine
DX: Z95.2 Presence of prosthetic heart valve (principal); I50.9 Heart failure, unspecified; Z51.81 Encounter for therapeutic drug level monitoring; Z79.01 Long term (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
CPT/HCPCS: 36415; 80048; 85610; 99212

== ENCOUNTER → 2022-08-16 10:30 | Outpatient (BNVA) | payer MEDICARE, MEDICAID, SELFPAY | PROVIDERS: PCP Internal Medicine; Visit Provider Internal Medicine | DX: Z95.2 Presence of prosthetic heart valve (principal); Z79.01 Long term (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; Z51.81 Encounter for therapeutic drug level monitoring | CPT/HCPCS: 85610; 99211 ==

== ENCOUNTER → 2022-08-17 08:18 | Outpatient (BNVA) | payer MEDICARE, MEDICAID, SELFPAY | PROVIDERS: PCP Internal Medicine; Visit Provider Internal Medicine | DX: Z95.2 Presence of prosthetic heart valve (principal); Z79.01 Long term (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; Z51.81 Encounter for therapeutic drug level monitoring | CPT/HCPCS: 85610; 99211 ==

== ENCOUNTER → 2022-08-20 09:29 | Outpatient (BNVA) | payer MEDICARE, MEDICAID, SELFPAY | PROVIDERS: PCP Internal Medicine; Visit Provider Internal Medicine | DX: Z95.2 Presence of prosthetic heart valve (principal); Z79.01 Long term (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; Z51.81 Encounter for therapeutic drug level monitoring | CPT/HCPCS: 85610; 99211 ==

== ENCOUNTER 2022-08-22 13:08 | Outpatient (REF) | payer MEDICARE, MEDICAID, SELFPAY ==
--- NOTE | ~2022-08-22 | XR_ITS ---
EXAMINATION: XR CHEST CLINICAL INFORMATION: Heart failure COMPARISON: Previous chest x-ray most recent June 2022 TECHNIQUE: 2 views of the chest were obtained. FINDINGS: The cardiac silhouette is enlarged but stable. There are 2 prosthetic heart valves. There is pulmonary venous redistribution. There are increased perihilar markings and mild pulmonary edema. There are very small bilateral pleural effusions. There are median sternotomy wires. There are degenerative changes of the spine. XR/XR chest 2V IMPRESSION: Mild CHF similar to June 2022 exam.
== END 2022-08-22 13:09 | disposition home or self-care (01) ==
LOC: HO.XRAY 13:08
PROVIDERS: PCP Internal Medicine; Visit Provider Internal Medicine
DX: J44.9 Chronic obstructive pulmonary disease, unspecified (principal); J84.9 Interstitial pulmonary disease, unspecified; I50.30 Unspecified diastolic (congestive) heart failure; R09.02 Hypoxemia; Z95.2 Presence of prosthetic heart valve; Z79.899 Other long term (current) drug therapy; Z79.01 Long term (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
CPT/HCPCS: 71046; 94618; 99202

== ENCOUNTER → 2022-08-24 08:27 | Outpatient (BNVA) | payer MEDICARE, MEDICAID, SELFPAY | PROVIDERS: PCP Internal Medicine; Visit Provider Internal Medicine | DX: Z95.2 Presence of prosthetic heart valve (principal); Z79.01 Long term (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; Z51.81 Encounter for therapeutic drug level monitoring | CPT/HCPCS: 85610; 99211 ==

== ENCOUNTER 2022-08-26 16:50 | Inpatient (IN) | payer MEDICARE, MEDICAID, SELFPAY ==
[2022-08-26] VITALS (7 sets, daily range): BP systolic 89–146; BP diastolic 27–119; PULSE 62–80; RESP 16–27; TEMP 36.3–36.7; O2SAT 72–97; BMI 26.9
--- NOTE | ~2022-08-26 | XR_ITS ---
EXAMINATION: XR CHEST CLINICAL INFORMATION: Shortness of breath COMPARISON: Chest x-ray 08/22/2022, 1:20 PM TECHNIQUE: Frontal portable view of the chest was obtained. 5:40 PM FINDINGS: Status post median sternotomy for cardiac valve repair. Cardiac mediastinal contours unchanged. Prominent central hilar pulmonary vessels unchanged since prior chest x-ray. Patchy airspace opacities worse than prior exam of 08/22/2022. Likely due to developing pulmonary edema. Small bilateral pleural effusions blunting costophrenic angles. XR/XR chest 1V IMPRESSION: Worsening pulmonary edema since prior chest x-ray 08/22/2022. Small bilateral pleural effusions.
--- NOTE | ~2022-08-26 | CT_ITS ---
EXAMINATION: CT CHEST WITHOUT CONTRAST CLINICAL INFORMATION: Amiodarone toxicity. COMPARISON: Chest radiographs, including 07/21/2022. TECHNIQUE: Multidetector volumetric CT imaging of the chest was done. Axial MIP volume rendering provided. Sagittal and coronal reformatted images were obtained. This CT examination was performed using dose optimization techniques as appropriate, variously including the following: *Automated exposure control *Adjustment of mA and/or kV according to patient size (this includes techniques or standardized protocols for targeted exams where dose is matched to indication/reason for exam; i.e. extremities or head) *Use of iterative reconstruction technique DLP: 342 mGy-cm FINDINGS: LUNGS AND PLEURA: Patchy ground glass opacities are present in both lungs. The opacities have more of a central than peripheral distribution. Associated findings of small pleural effusions and bibasilar atelectasis. There are no peripheral pulmonary opacities of high attenuation to suggest presence of chronic amiodarone toxicity. CARDIOVASCULAR: Prior mitral and tricuspid valve surgery. Multichamber cardiac enlargement. Calcific density is seen along the wall of the left atrium. Coronary artery atherosclerotic calcification is present. Aortic valve is calcified. Thoracic aorta atherosclerosis without aneurysm. Pulmonary artery trunk and central pulmonary arteries are large, with pulmonary artery trunk measuring greater than 3.5 cm (if measured on image 22, series 3), which suggests likelihood of pulmonary arterial hypertension. No pericardial effusion. MEDIASTINUM AND LOWER NECK: The esophagus has normal wall thickness. Thyroid gland is unremarkable. No mediastinal mass. LYMPHATICS: No axillary or internal mammary lymphadenopathy. Mild prominence of mediastinal lymph nodes, likely reactive lymph nodes. A lymph node with fatty hilum in the lower right paratracheal area is 1.6 cm in short axis dimension. UPPER ABDOMEN: Note that there can be abnormally high attenuation within liver and/or spleen with chronic amiodarone toxicity. However, in this patient, the liver and spleen have normal parenchymal attenuation. Mild nodular thickening at the apex of the left adrenal gland, 1 cm thick, has low density of -10 Hounsfield units, consistent with lipid rich adenoma. Also, there is a nodular thickening of the medial limb of the left adrenal, 1.2 cm thickness, with low attenuation of 2 HU, consistent with lipid rich adenoma. No adrenal imaging follow-up recommended. There is a staple/suture line along the partially visualized stomach. SKELETAL AND CHEST WALL: No acute abnormalities in the extensively degenerated thoracic spine. No aggressive osseous lesions. Sternotomy is healed. CT/CT chest wo IV con IMPRESSION: * Cardiomegaly, small pleural effusions and bilateral groundglass pulmonary opacities. This has the appearance of cardiogenic pulmonary edema. * Pulmonary arteries are large, which can be a manifestation of pulmonary arterial hypertension. * Mild lymphadenopathy in the mediastinum is likely reactive in nature. * No overt findings of amiodarone toxicity. There are no hyperdense peripheral infiltrates in the lungs. Also, there is no evidence of any abnormal increased attenuation within the liver or spleen. * Incidentally noted are the lipid rich adenomas of the left adrenal gland.
--- NOTE | 2022-08-26 16:55 | ED_ITS ---
HPI - General Adult General Chief complaint: Dyspnea <CAITLIN Brown - Last Filed: 08/26/22 21:12> Stated complaint: DYSPENA <CAITLIN Brown Last Filed: 08/26/22 21:12> Time Seen by Provider: 08/26/22 16:54 <CAITLIN Brown Last Filed: 08/26/22 21:12> Source: patient and EMS <CAITLIN Brown Last Filed: 08/26/22 21:12> Mode of arrival: EMS <CAITLIN Brown Last Filed: 08/26/22 21:12> Limitations: no limitations <CAITLIN Brown Last Filed: 08/26/22 21:12> History of Present Illness HPI narrative: Patient is a 66 year old assigned female at with a history of COPD, mitral valve replacement, CHF, aortic stenosis, anticoagulant use, and 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 Patient states that over the last 2 weeks she has had more shortness of breath. Patient states that before that, she was in [place] where she was hospitalized for >5 days for breathing difficulties. Patient states that she is prescribed oxygen at home for when she needs it but she has not been able to be without it at all over the last 2 weeks. Patient states that she has been having her amiodarone dose adjusted repeatedly but her specialty development consultant believes it is now causing her pulmonary fibrosis. EMS states that the patient was as low as 72% on room air. Patient denies any dizziness, lightheadedness, abdominal pain, nausea, vomiting, fever, chills, blurry vision, double vision, loss of vision, chest pain, back pain, night sweats, pain with urination, increased urinary frequency, increased urinary urgency, blood in her urine or stool, syncope or a near syncopal episode, recent trauma or falls, bowel incontinence, bladder incontinence, bowel retention, bladder retention, or any other complaints at this time. <CAITLIN Brown Last Filed: 08/26/22 21:12> Onset (ago): week(s) (2) <CAITLIN Brown Last Filed: 08/26/22 21:12> Severity: severe <CAITLIN Brown Last Filed: 08/26/22 21:12> Severity scale (1-10): 7 <CAITLIN Brown - Last Filed: 08/26/22 21:12> Relieving factors: none <CAITLIN Brown - Last Filed: 08/26/22 21:12> Exacerbating factors: none <CAITLIN Brown - Last Filed: 08/26/22 21:12> Associated symptoms: shortness of breath <CAITLIN Brown - Last Filed: 08/26/22 21:12> Treatments prior to arrival: none <CAITLIN Brown - Last Filed: 08/26/22 21:12> Related Data Home medications: Home Medications Medication Instructions Recorded Confirmed furosemide 20 mg tablet (Lasix) 20 mg PO DAILY@1700 09/01/20 08/22/22 levothyroxine 25 mcg tablet 25 mcg PO DAILY 09/01/20 08/22/22 lisinopril 5 mg tablet 5 mg PO DAILY 09/01/20 08/22/22 albuterol sulfate 90 mcg/actuation 2 puff inhalation Q4-6H PRN 04/26/21 08/22/22 aerosol inhaler (ProAir HFA) Respiratory Distress atorvastatin 20 mg tablet 20 mg PO DAILY 04/26/21 08/22/22 ferrous sulfate 325 mg (65 mg 325 mg PO TID 04/26/21 08/22/22 iron) tablet sertraline 100 mg tablet 200 mg PO DAILY 04/26/21 08/22/22 fluticasone fur. 200 mcg-umeclid 1 inh inhalation Q24H 07/21/22 08/22/22 62.5 mcg-vilant 25 mcg inhalat.powder (Trelegy Ellipta) warfarin 2.5 mg tablet 7.5 mg PO MOWESA 07/21/22 08/24/22 warfarin 2.5 mg tablet 10 mg PO SUTUTHFR 07/21/22 08/24/22 amoxicillin 500 mg-potassium 1 tab PO BID 08/22/22 08/22/22 clavulanate 125 mg tablet warfarin 2.5 mg tablet mg 08/26/22 diltiazem HCl 120 mg mg PO 08/27/22 capsule,extended release 24 hr Previous Rx's Medication Instructions Recorded amiodarone 200 mg tablet 200 mg PO DAILY #90 tabs 07/20/22 <CAITLIN Brown Last Filed: 08/26/22 21:12> Allergies/adverse reactions: Allergies Allergy/AdvReac Type Severity Reaction Status Date / Time PAPER TAPE Allergy Mild REDNESS, Uncoded 08/24/22 08:31 RASH <CAITLIN Brown Last Filed: 08/26/22 21:12> Review of Systems Constitutional: Constitutional: Reports no additional constitutional complaints, Denies chills, Denies fever(s) and Denies night sweats <CAITLIN Brown Last Filed: 08/26/22 21:12> Eyes: Eyes: Reports no additional eye complaints, Denies blurry vision, Denies change in vision, Denies diplopia, Denies eye discharge, Denies loss of vision and Denies eye pain <CAITLIN Brown Last Filed: 08/26/22 21:12> ENT: Denies dizziness <CAITLIN Brown Last Filed: 08/26/22 21:12> Cardiovascular: Cardiovascular: Reports no additional cardiovascular complaints, Denies chest pain, Denies lightheadedness, Denies Loss of Consc iousness and Reports dyspnea <CAITLIN Brown Last Filed: 08/26/22 21:12> Respiratory: Respiratory: Reports no additional respiratory complaints and Reports dyspnea <CAITLIN Brown Last Filed: 08/26/22 21:12> Gastrointestinal: Gastrointestinal: Reports no additional gastrointestinal complaints, Denies abdominal pain, Denies melena, Denies hematochezia, Denies change in bowel habits and Denies change in stool character <CAITLIN Brown Last Filed: 08/26/22 21:12> Genitourinary: Genitourinary: Denies hematuria, Denies urinary frequency, Denies dysuria, Denies urinary incontinence, Denies urinary hesitancy and Denies urinary urgency <CAITLIN Brown Last Filed: 08/26/22 21:12> Musculoskeletal: Musculoskeletal: Reports no additional musculoskeletal complaints, Denies numbness and Denies tingling <CAITLIN Brown Last Filed: 08/26/22 21:12> Neurologic: Denies dizziness, Denies loss of vision, Denies numbness and Denies tingling <CAITLIN Brown - Last Filed: 08/26/22 21:12> Psychiatric: Psychiatric: Reports no additional psychiatric complaints <CAITLIN Brown - Last Filed: 08/26/22 21:12> Endocrine: Endocrine: Reports no additional endocrine complaints <CAILTIN Brown - Last Filed: 08/26/22 21:12> Hematologic/Lymphatic: Hematologic/Lymphatic: Reports no additional hematologic/lymphatic complaints <CAITLIN Brown - Last Filed: 08/26/22 21:12> Allergic/Immunologic: Allergic/Immunologic: Reports no additional allergic/im munologic complaints <CATILIN Brown - Last Filed: 08/26/22 21:12> PMFSH Past Medical History Attestation statement: The following information was validated with the patient. <CAITLIN Brown - Last Filed: 08/26/22 21:12> Source: old records reviewed <CAITLIN Brown - Last Filed: 08/26/22 21:12> Medical History: Medical History (HFpEF) heart failure with preserved ejection fraction Aortic stenosis Atrial flutter COPD (chronic obstructive pulmonary disease) Exercise hypoxemia Interstitial lung disease Obesity Paroxysmal atrial fibrillation <CAITLIN Brown - Last Filed: 08/26/22 21:12> Surgical History: Surgical History History of sleeve gastrectomy (~2018) Hx of section Hx of mitral valve replacement (~2004) Hx of transesophageal echocardiography (SHELIA) for monitoring (~2016) S/P MVR (mitral valve replacement) <CAITLIN Brown - Last Filed: 08/26/22 21:12> Family History Family History: Family History Father No problems noted. Mother CVD (cardiovascular disease) <CAITLIN Brown - Last Filed: 08/26/22 21:12> Social History Social History: Social History Household Members: Family Housing: House Do you presently have visiting nurse or other home services: No Alcohol intake: never Patient Tobacco Use Status: Former Tobacco user Tobacco use type: Cigarette Advance Directives: Yes Advance Directives Information Provided: No Advance Directives on File: No Advance Directives Date on File: 04/27/21 service: No Current occupational status: disabled <CAITLIN Brown - Last Filed: 08/26/22 21:12> Physical Exam ED Vital Signs: Vital Signs - 24 hr 08/26/22 17:32 08/26/22 18:26 08/26/22 18:35 Temperature 97.3 F Pulse Rate 74 76 Respiratory Rate 20 27 H 20 Blood Pressure 98/35 L 99/27 L Pulse Oximetry 74 L 97 Oxygen Delivery Method Room Air BiPAP Oxygen Flow Rate 08/26/22 21:36 08/26/22 22:19 08/26/22 23:29 Temperature 98.0 F Pulse Rate 66 62 63 Respiratory Rate 21 H 16 16 Blood Pressure 99/31 L 93/39 L 89/35 L Pulse Oximetry 95 96 95 Oxygen Delivery Method Nasal Cannula Nasal Cannula Nasal Cannula Oxygen Flow Rate 3 3 4 08/26/22 23:40 08/27/22 02:45 08/27/22 02:47 Temperature 98.6 F Pulse Rate 62 52 Respiratory Rate 18 15 Blood Pressure 91/33 L 90/37 L 90/37 L Pulse Oximetry 94 96 96 Oxygen Delivery Method Nasal Cannula Nasal Cannula Nasal Cannula Oxygen Flow Rate 4 4 4 08/27/22 06:03 08/27/22 07:16 Temperature 98.6 F 97.6 F Pulse Rate 47 L 48 L Respiratory Rate 15 16 Blood Pressure 103/39 L 105/34 L Pulse Oximetry 95 98 Oxygen Delivery Method Nasal Cannula Nasal Cannula Oxygen Flow Rate 2 4 BMI result Body Mass Index 26.9 <CAITLIN Brown - Last Filed: 08/26/22 21:12> Vital Signs - 24 hr 08/26/22 17:32 08/26/22 18:26 08/26/22 18:35 Temperature 97.3 F Pulse Rate 74 76 Respiratory Rate 20 27 H 20 Blood Pressure 98/35 L 99/27 L Pulse Oximetry 74 L 97 Oxygen Delivery Method Room Air BiPAP Oxygen Flow Rate 08/26/22 21:36 08/26/22 22:19 08/26/22 23:29 Temperature 98.0 F Pulse Rate 66 62 63 Respiratory Rate 21 H 16 16 Blood Pressure 99/31 L 93/39 L 89/35 L Pulse Oximetry 95 96 95 Oxygen Delivery Method Nasal Cannula Nasal Cannula Nasal Cannula Oxygen Flow Rate 3 3 4 08/26/22 23:40 08/27/22 02:45 08/27/22 02:47 Temperature 98.6 F Pulse Rate 62 52 Respiratory Rate 18 15 Blood Pressure 91/33 L 90/37 L 90/37 L Pulse Oximetry 94 96 96 Oxygen Delivery Method Nasal Cannula Nasal Cannula Nasal Cannula Oxygen Flow Rate 4 4 4 08/27/22 06:03 08/27/22 07:16 Temperature 98.6 F 97.6 F Pulse Rate 47 L 48 L Respiratory Rate 15 16 Blood Pressure 103/39 L 105/34 L Pulse Oximetry 95 98 Oxygen Delivery Method Nasal Cannula Nasal Cannula Oxygen Flow Rate 2 4 BMI result Body Mass Index 26.9 <Brennen Luis MD - Last Filed: 08/27/22 07:48> Const General: cooperative, no acute distress, alert and awake <CAITLIN Brown - Last Filed: 08/26/22 21:12> Nutritional Appearance: well nourished <CAITLIN Brown - Last Filed: 08/26/22 21:12> Orientation/consciousness: patient oriented x3 <CAITLIN Brown - Last Filed: 08/26/22 21:12> Limitations: no limitations <CAITLIN Brown - Last Filed: 08/26/22 21:12> HENMT Head: Yes normal to inspection and Yes atraumatic <CAITLIN Brown - Last Filed: 08/26/22 21:12> Ears: hearing grossly normal bilaterally and external ears normal <CAITLIN Brown - Last Filed: 08/26/22 21:12> General nose exam: Normal external nose present, no nasal discharge noted and no epistaxis <CAITLIN Brown - Last Filed: 08/26/22 21:12> Face and sinus: Yes normal facial exam, No abrasion and No laceration <CAITLIN Brown - Last Filed: 08/26/22 21:12> Mouth: Normal oral and palatal mucosa present, no drooling and no muffled voice <CAITLIN Brown - Last Filed: 08/26/22 21:12> Eyes General: appearance normal, both eyes and all related structures <Felisha Platt CT - Last Filed: 08/26/22 21:12> Periorbital: periorbital findings normal <CAITLIN Brown - Last Filed: 08/26/22 21:12> Eyelids: Yes eyelids normal <Felisha Platt CT - Last Filed: 08/26/22 21:12> Conjunctivae: conjunctivae normal <Felisha Platt CT - Last Filed: 08/26/22 21:12> Pupils: Equal, round and reactive pupils present <Felisha Platt CT - Last Filed: 08/26/22 21:12> EOM: EOMs intact bilaterally <Felisha Platt CT - Last Filed: 08/26/22 21:12> Neck Neck: Yes normal visual inspection, Yes full ROM and Yes no lymphadenopathy <Felisha Platt CT - Last Filed: 08/26/22 21:12> Chest Chest palpation & inspection: normal inspection of the chest <Felisha Platt CT - Last Filed: 08/26/22 21:12> Resp Effort & Inspection: able to speak in complete sentences, labored, respiratory distress and tachypneic <Felisha Platt CT - Last Filed: 08/26/22 21:12> Auscultation: crackles bilateral at the base <Felisha Platt CT - Last Filed: 08/26/22 21:12> Cardio Rate: regular rate <Felisha Platt CT - Last Filed: 08/26/22 21:12> Rhythm: regular rhythm <Felisha Platt CT - Last Filed: 08/26/22 21:12> GI Inspection: Yes normal to inspection <Felisha Platt CT - Last Filed: 08/26/22 21:12> Palpation (GI): Soft to palpation, not firm, nontender, no guarding and not rigid <Felisha Platt CT - Last Filed: 08/26/22 21:12> Neuro General: patient oriented x3 and moves all extremities <Felisha Platt CAITLIN - Last Filed: 08/26/22 21:12> Cranial nerves: Yes Equal, round and reactive pupils present <Felisha Platt CT - Last Filed: 08/26/22 21:12> Cognition (Neuro): normal cognition <Felisha PlattCAITLIN - Last Filed: 08/26/22 21:12> Motor exam (neuro): 5/5 motor strength present throughout <Felisha PlattCAITLIN - Last Filed: 08/26/22 21:12> Sensory Exam: Normal double simultaneous stimulation for sensation <Felisha PlattCAITLIN - Last Filed: 08/26/22 21:12> Coordination: [id number] test normal <Felisha PlattCAITLIN - Last Filed: 08/26/22 21 :12> Extrem General: Yes normal to inspection, Yes full ROM and Yes capillary refill normal <Felisha PlattCAITLIN - Last Filed: 08/26/22 21:12> Psych Appearance: grossly normal <Felisha PlattCAITLIN - Last Filed: 08/26/22 21:12> Mental Status: mental status grossly normal <Felisha PlattCAITLIN - Last Filed: 08/26/22 21:12> Affect: normal affect <Felisha PlattCAITLIN - Last Filed: 08/26/22 21:12> Attitude: cooperative <Felisha PlattCAITLIN - Last Filed: 08/26/22 21:12> Thought process: Normal thought process present <Felisha PlattCAITLIN - Last Filed: 08/26/22 21:12> Thought content: Normal thought content present <Felisha PlattCAITLIN - Last Filed: 08/26/22 21:12> Insight: Good insight present (Psych) <Felisha PlattCAITLIN - Last Filed: 08/26/22 21:12> Course Course Course Narrative: 2339: Start physician observation: I assumed care of this patient from my colleague, Katia Platt at 21:00 hours. The patient presented with shortness of breath with a room air O2 saturation of 72%. The patient was found to be in congestive heart failure based on her x-ray and was initially placed on BiPAP for 2 hours. She was then trans your since to an OxyMask and then oxygen via nasal cannula. The patient used his home oxygen chronically at 3 L and we have been able to titrate the patient down to 4 L via nasal cannula. The patient has had episodic hypotension with systolic blood pressures in the 80s. She has been maintaining systolic blood pressures 90-100 range. The plan has been to give the patient Lasix to try to diurese her. She has received 2 doses of Lasix 20 mg each and she has put out approximately 200 cc of Lasix through a PureWick catheter. The patient was ordered to get another 40 mg of Lasix IV to try to achieve a diuresis of 500-1000 cc of urine. The patient will be placed in physician observation here in the emergency department until she is stable enough to go to to an intermediate care bed on the hospitalist service. 0638: Physician observation continued: The patient was observed overnight, she did have several low systolic blood pressures with a systolic in the 85. Since 05:30 hours her systolic blood pressures have ranged from 93-103. The patient diurese approximately 900 cc of urine and she states she is feeling better. I 0739: Physician observation continued: I did discuss the patient with the covering hospitalist, nurse practitioner Angela Rizo. She is concerned that the patient did have low blood pressures overnight and requested that I contact the covering sleeve setter safety stitch. 0746: Physician observation continued: I did discuss the patient's presentation with the covering sleeve setter safety stitch, Dr. Perry. He believes that the patient would be appropriate for IMC but he will consult on the patient. At the end of my shift, patient's care was turned over to my colleague, Dr. Galeana < Brennen Luis MD - Last Filed: 08/27/22 07:48> Medical Decision Making [facility] Narrative Medical decision making narrative: Patient is a 66 year old assigned female at with a history of COPD, CHF, aortic stenosis, mitral valve replacement, and atrial fibrillation presently on amiodarone and warfarin presenting to the emergency department today with increased shortness of breath. Patient's physical exam showed a 66 year old woman in respiratory distress with bilateral crackles in the lung bases and tachypnea. Patient's blood work showed a BNP of 164. Patient's chest x-ray showed worsening pulmonary edema. Patient was intitally satting at 72% on room air and was placed on CPAP, after which she greatly improved. Patient was titrated back down to an oxymask and continued to sat in the mid to high 90s. Patient's blood pressures were persistently low in the mid to high 90s systolic with lower MAP readings. I spoke to the sleeve setter safety stitch three dimensional art instructor who recommended the patient get an IV bolus of lasix and if needed, started on levophed with a 5mg Lasix drip with the goal of stabilizing the patient well enough for floor admission. Patient signed out to Dr. Luis. <CAITLIN Brown - Last Filed: 08/26/22 21:12> Medical Records Medical records reviewed: Yes I reviewed the patient's medical records. <CAITLIN Brown - Last Filed: 08/26/22 21:12> Lab Data Lab results reviewed: Yes I reviewed the patient's lab results. <CAITLIN Brown - Last Filed: 08/26/22 21:12> Result diagrams: : 08/27/22 06:15 08/27/22 06:15 <CAITLIN Brown - Last Filed: 08/26/22 21:12> Labs: Lab Results 08/26/22 08/26/22 08/26/22 Range/Units 17:29 17:29 17:29 WBC 7.3 (4.8-10.8) X10*3/uL RBC 3.18 L (4.20-5.50) X10*6/uL Hgb 8.8 L (12.0-16.0) g/dl Hct 28.7 L (37.0-47.0) % MCV 90.3 (80.0-98.0) fL MCH 27.7 (27.0-33.0) pg MCHC 30.7 L (31.0-35.0) g/dl RDW 16.6 H (11.0-16.0) % Plt Count 176 (160-400) X10*3/uL MPV 11.3 (9.4-12.3) fL Immature Gran % (Auto) 0.5 H (0.0-0.4) % Neut % (Auto) 87.5 H (45-73) % Lymph % (Auto) 4.6 L (20-40) % Iron % (Auto) 6.6 (2-11) % Eos % (Auto) 0.7 (0-4) % Baso % (Auto) 0.1 (0-2) % Lymph # (Auto) 0.3 L (1.2-4.9) X10*3/uL Iron # (Auto) 0.5 (0.1-1.2) X10*3/uL Eos # (Auto) 0.1 (0.0-0.4) X10*3/uL Baso # (Auto) 0.0 (0.0-0.2) X10*3/uL Abs Immat Gran (auto) 0.04 H (0.00-0.03) X10*3/uL Absolute Neuts (auto) 6.4 (2.0-8.3) x10*3/uL Absolute Nucleated RBC 0.000 (0.0-0.012) X10*3/uL Nucleated RBC % (auto) 0.0 (0.0-0.2) /100WBC PT (10.0-13.1) SEC INR (0.9-1.1) APTT (26.0-36.4) SEC VBG pH (7.32-7.43) VBG pCO2 mmHg VBG pO2 mmHg VBG HCO3 (22-26) mmol/L VBG O2 Saturation % VBG Base Excess mmol/L Sodium 136 (135-145) mmol/L Potassium 3.8 (3.3-5.1) mmol/L Chloride 102 (96-108) mmol/L Carbon Dioxide 24 (22-29) mmol/L Anion Gap 14 (12-20) BUN 23 H (9-16) mg/dL Creatinine 0.94 (0.5-1.4) mg/dL Estim Creat Clear Calc 53.5 Estimated GFR 60 Random Glucose 96 (60-115) mg/dL Lactic Acid 1.0 (0.5-2.0) mmol/L Calcium 8.7 (8.4-10.2) mg/dL Magnesium 2.1 (1.6-2.6) mg/dL Total Bilirubin 0.8 (0.0-1.0) mg/dL AST 24 D (5-31) U/L ALT 10 (0-31) U/L Alkaline Phosphatase 87 (39-117) U/L Lactate Dehydrogenase 366 H (122-220) U/L C-Reactive Protein 18.56 H (< or = 0.50) mg/dL B-Natriuretic Peptide (<100) pg/mL Total Protein 7.2 (6.5-8.0) g/dL Albumin 3.6 (3.5-5.0) g/dL Influenza Type A (PCR) (Negative) Influenza Type B (PCR) (Negative) RSV RNA Qual (PCR) (Negative) SARS-CoV-2 RNA (RT-PCR) (Negative) 08/26/22 08/26/22 08/26/22 Range/Units 17:29 17:29 17:36 WBC (4.8-10.8) X10*3/uL RBC (4.20-5.50) X10*6/uL Hgb (12.0-16.0) g/dl Hct (37.0-47.0) % MCV (80.0-98.0) fL MCH (27.0-33.0) pg MCHC (31.0-35.0) g/dl RDW (11.0-16.0) % Plt Count (160-400) X10*3/uL MPV (9.4-12.3) fL Immature Gran % (Auto) (0.0-0.4) % Neut % (Auto) (45-73) % Lymph % (Auto) (20-40) % Iron % (Auto) (2-11) % Eos % (Auto) (0-4) % Baso % (Auto) (0-2) % Lymph # (Auto) (1.2-4.9) X10*3/uL Iron # (Auto) (0.1-1.2) X10*3/uL Eos # (Auto) (0.0-0.4) X10*3/uL Baso # (Auto) (0.0-0.2) X10*3/uL Abs Immat Gran (auto) (0.00-0.03) X10*3/uL Absolute Neuts (auto) (2.0-8.3) x10*3/uL Absolute Nucleated RBC (0.0-0.012) X10*3/uL Nucleated RBC % (auto) (0.0-0.2) /100WBC PT (10.0-13.1) SEC INR (0.9-1.1) APTT (26.0-36.4) SEC VBG pH 7.42 (7.32-7.43) VBG pCO2 34 mmHg VBG pO2 45 mmHg VBG HCO3 22 (22-26) mmol/L VBG O2 Saturation 69.0 % VBG Base Excess -1.2 mmol/L Sodium (135-145) mmol/L Potassium (3.3-5.1) mmol/L Chloride (96-108) mmol/L Carbon Dioxide (22-29) mmol/L Anion Gap (12-20) BUN (9-16) mg/dL Creatinine (0.5-1.4) mg/dL Estim Creat Clear Calc Estimated GFR Random Glucose (60-115) mg/dL Lactic Acid (0.5-2.0) mmol/L Calcium (8.4-10.2) mg/dL Magnesium (1.6-2.6) mg/dL Total Bilirubin (0.0-1.0) mg/dL AST (5-31) U/L ALT (0-31) U/L Alkaline Phosphatase (39-117) U/L Lactate Dehydrogenase (122-220) U/L C-Reactive Protein (< or = 0.50) mg/dL B-Natriuretic Peptide 164 H (<100) pg/mL Total Protein (6.5-8.0) g/dL Albumin (3.5-5.0) g/dL Influenza Type A (PCR) NEGATIVE (Negative) Influenza Type B (PCR) NEGATIVE (Negative) RSV RNA Qual (PCR) NEGATIVE (Negative) SARS-CoV-2 RNA (RT-PCR) NEGATIVE (Negative) 08/26/22 08/27/22 08/27/22 Range/Units 20:58 06:15 06:15 WBC 5.9 (4.8-10.8) X10*3/uL RBC 3.13 L (4.20-5.50) X10*6/uL Hgb 8.6 L (12.0-16.0) g/dl Hct 27.9 L (37.0-47.0) % MCV 89.1 (80.0-98.0) fL MCH 27.5 (27.0-33.0) pg MCHC 30.8 L (31.0-35.0) g/dl RDW 16.5 H (11.0-16.0) % Plt Count 184 (160-400) X10*3/uL MPV 11.8 (9.4-12.3) fL Immature Gran % (Auto) 0.5 H (0.0-0.4) % Neut % (Auto) 87.2 H (45-73) % Lymph % (Auto) 6.3 L (20-40) % Iron % (Auto) 5.8 (2-11) % Eos % (Auto) 0.0 (0-4) % Baso % (Auto) 0.2 (0-2) % Lymph # (Auto) 0.4 L (1.2-4.9) X10*3/uL Iron # (Auto) 0.3 (0.1-1.2) X10*3/uL Eos # (Auto) 0.0 (0.0-0.4) X10*3/uL Baso # (Auto) 0.0 (0.0-0.2) X10*3/uL Abs Immat Gran (auto) 0.03 (0.00-0.03) X10*3/uL Absolute Neuts (auto) 5.1 (2.0-8.3) x10*3/uL Absolute Nucleated RBC 0.000 (0.0-0.012) X10*3/uL Nucleated RBC % (auto) 0.0 (0.0-0.2) /100WBC PT 48.1 H (10.0-13.1) SEC INR 4.0 H D (0.9-1.1) APTT 45.4 H (26.0-36.4) SEC VBG pH (7.32-7.43) VBG pCO2 mmHg VBG pO2 mmHg VBG HCO3 (22-26) mmol/L VBG O2 Saturation % VBG Base Excess mmol/L Sodium 140 (135-145) mmol/L Potassium 4.0 (3.3-5.1) mmol/L Chloride 105 (96-108) mmol/L Carbon Dioxide 21 L (22-29) mmol/L Anion Gap 18 (12-20) BUN 29 H (9-16) mg/dL Creatinine 0.95 (0.5-1.4) mg/dL Estim Creat Clear Calc 52.9 Estimated GFR 59 Random Glucose 132 H (60-115) mg/dL Lactic Acid (0.5-2.0) mmol/L Calcium 8.7 (8.4-10.2) mg/dL Magnesium (1.6-2.6) mg/dL Total Bilirubin 0.6 (0.0-1.0) mg/dL AST 26 (5-31) U/L ALT 11 (0-31) U/L Alkaline Phosphatase 82 (39-117) U/L Lactate Dehydrogenase (122-220) U/L C-Reactive Protein (< or = 0.50) mg/dL B-Natriuretic Peptide (<100) pg/mL Total Protein 7.1 (6.5-8.0) g/dL Albumin 3.5 (3.5-5.0) g/dL Influenza Type A (PCR) (Negative) Influenza Type B (PCR) (Negative) RSV RNA Qual (PCR) (Negative) SARS-CoV-2 RNA (RT-PCR) (Negative) <CAITLIN Brown - Last Filed: 08/26/22 21:12> Lab Results 08/26/22 08/26/22 08/26/22 Range/Units 17:29 17:29 17:29 WBC 7.3 (4.8-10.8) X10*3/uL RBC 3.18 L (4.20-5.50) X10*6/uL Hgb 8.8 L (12.0-16.0) g/dl Hct 28.7 L (37.0-47.0) % MCV 90.3 (80.0-98.0) fL MCH 27.7 (27.0-33.0) pg MCHC 30.7 L (31.0-35.0) g/dl RDW 16.6 H (11.0-16.0) % Plt Count 176 (160-400) X10*3/uL MPV 11.3 (9.4-12.3) fL Immature Gran % (Auto) 0.5 H (0.0-0.4) % Neut % (Auto) 87.5 H (45-73) % Lymph % (Auto) 4.6 L (20-40) % Iron % (Auto) 6.6 (2-11) % Eos % (Auto) 0.7 (0-4) % Baso % (Auto) 0.1 (0-2) % Lymph # (Auto) 0.3 L (1.2-4.9) X10*3/uL Iron # (Auto) 0.5 (0.1-1.2) X10*3/uL Eos # (Auto) 0.1 (0.0-0.4) X10*3/uL Baso # (Auto) 0.0 (0.0-0.2) X10*3/uL Abs Immat Gran (auto) 0.04 H (0.00-0.03) X10*3/uL Absolute Neuts (auto) 6.4 (2.0-8.3) x10*3/uL Absolute Nucleated RBC 0.000 (0.0-0.012) X10*3/uL Nucleated RBC % (auto) 0.0 (0.0-0.2) /100WBC PT (10.0-13.1) SEC INR (0.9-1.1) APTT (26.0-36.4) SEC VBG pH (7.32-7.43) VBG pCO2 mmHg VBG pO2 mmHg VBG HCO3 (22-26) mmol/L VBG O2 Saturation % VBG Base Excess mmol/L Sodium 136 (135-145) mmol/L Potassium 3.8 (3.3-5.1) mmol/L Chloride 102 (96-108) mmol/L Carbon Dioxide 24 (22-29) mmol/L Anion Gap 14 (12-20) BUN 23 H (9-16) mg/dL Creatinine 0.94 (0.5-1.4) mg/dL Estim Creat Clear Calc 53.5 Estimated GFR 60 Random Glucose 96 (60-115) mg/dL Lactic Acid 1.0 (0.5-2.0) mmol/L Calcium 8.7 (8.4-10.2) mg/dL Magnesium 2.1 (1.6-2.6) mg/dL Total Bilirubin 0.8 (0.0-1.0) mg/dL AST 24 D (5-31) U/L ALT 10 (0-31) U/L Alkaline Phosphatase 87 (39-117) U/L Lactate Dehydrogenase 366 H (122-220) U/L C-Reactive Protein 18.56 H (< or = 0.50) mg/dL B-Natriuretic Peptide (<100) pg/mL Total Protein 7.2 (6.5-8.0) g/dL Albumin 3.6 (3.5-5.0) g/dL Influenza Type A (PCR) (Negative) Influenza Type B (PCR) (Negative) RSV RNA Qual (PCR) (Negative) SARS-CoV-2 RNA (RT-PCR) (Negative) 08/26/22 08/26/22 08/26/22 Range/Units 17:29 17:29 17:36 WBC (4.8-10.8) X10*3/uL RBC (4.20-5.50) X10*6/uL Hgb (12.0-16.0) g/dl Hct (37.0-47.0) % MCV (80.0-98.0) fL MCH (27.0-33.0) pg MCHC (31.0-35.0) g/dl RDW (11.0-16.0) % Plt Count (160-400) X10*3/uL MPV (9.4-12.3) fL Immature Gran % (Auto) (0.0-0.4) % Neut % (Auto) (45-73) % Lymph % (Auto) (20-40) % Iron % (Auto) (2-11) % Eos % (Auto) (0-4) % Baso % (Auto) (0-2) % Lymph # (Auto) (1.2-4.9) X10*3/uL Iron # (Auto) (0.1-1.2) X10*3/uL Eos # (Auto) (0.0-0.4) X10*3/uL Baso # (Auto) (0.0-0.2) X10*3/uL Abs Immat Gran (auto) (0.00-0.03) X10*3/uL Absolute Neuts (auto) (2.0-8.3) x10*3/uL Absolute Nucleated RBC (0.0-0.012) X10*3/uL Nucleated RBC % (auto) (0.0-0.2) /100WBC PT (10.0-13.1) SEC INR (0.9-1.1) APTT (26.0-36.4) SEC VBG pH 7.42 (7.32-7.43) VBG pCO2 34 mmHg VBG pO2 45 mmHg VBG HCO3 22 (22-26) mmol/L VBG O2 Saturation 69.0 % VBG Base Excess -1.2 mmol/L Sodium (135-145) mmol/L Potassium (3.3-5.1) mmol/L Chloride (96-108) mmol/L Carbon Dioxide (22-29) mmol/L Anion Gap (12-20) BUN (9-16) mg/dL Creatinine (0.5-1.4) mg/dL Estim Creat Clear Calc Estimated GFR Random Glucose (60-115) mg/dL Lactic Acid (0.5-2.0) mmol/L Calcium (8.4-10.2) mg/dL Magnesium (1.6-2.6) mg/dL Total Bilirubin (0.0-1.0) mg/dL AST (5-31) U/L ALT (0-31) U/L Alkaline Phosphatase (39-117) U/L Lactate Dehydrogenase (122-220) U/L C-Reactive Protein (< or = 0.50) mg/dL B-Natriuretic Peptide 164 H (<100) pg/mL Total Protein (6.5-8.0) g/dL Albumin (3.5-5.0) g/dL Influenza Type A (PCR) NEGATIVE (Negative) Influenza Type B (PCR) NEGATIVE (Negative) RSV RNA Qual (PCR) NEGATIVE (Negative) SARS-CoV-2 RNA (RT-PCR) NEGATIVE (Negative) 08/26/22 08/27/22 08/27/22 Range/Units 20:58 06:15 06:15 WBC 5.9 (4.8-10.8) X10*3/uL RBC 3.13 L (4.20-5.50) X10*6/uL Hgb 8.6 L (12.0-16.0) g/dl Hct 27.9 L (37.0-47.0) % MCV 89.1 (80.0-98.0) fL MCH 27.5 (27.0-33.0) pg MCHC 30.8 L (31.0-35.0) g/dl RDW 16.5 H (11.0-16.0) % Plt Count 184 (160-400) X10*3/uL MPV 11.8 (9.4-12.3) fL Immature Gran % (Auto) 0.5 H (0.0-0.4) % Neut % (Auto) 87.2 H (45-73) % Lymph % (Auto) 6.3 L (20-40) % Iron % (Auto) 5.8 (2-11) % Eos % (Auto) 0.0 (0-4) % Baso % (Auto) 0.2 (0-2) % Lymph # (Auto) 0.4 L (1.2-4.9) X10*3/uL Iron # (Auto) 0.3 (0.1-1.2) X10*3/uL Eos # (Auto) 0.0 (0.0-0.4) X10*3/uL Baso # (Auto) 0.0 (0.0-0.2) X10*3/uL Abs Immat Gran (auto) 0.03 (0.00-0.03) X10*3/uL Absolute Neuts (auto) 5.1 (2.0-8.3) x10*3/uL Absolute Nucleated RBC 0.000 (0.0-0.012) X10*3/uL Nucleated RBC % (auto) 0.0 (0.0-0.2) /100WBC PT 48.1 H (10.0-13.1) SEC INR 4.0 H D (0.9-1.1) APTT 45.4 H (26.0-36.4) SEC VBG pH (7.32-7.43) VBG pCO2 mmHg VBG pO2 mmHg VBG HCO3 (22-26) mmol/L VBG O2 Saturation % VBG Base Excess mmol/L Sodium 140 (135-145) mmol/L Potassium 4.0 (3.3-5.1) mmol/L Chloride 105 (96-108) mmol/L Carbon Dioxide 21 L (22-29) mmol/L Anion Gap 18 (12-20) BUN 29 H (9-16) mg/dL Creatinine 0.95 (0.5-1.4) mg/dL Estim Creat Clear Calc 52.9 Estimated GFR 59 Random Glucose 132 H (60-115) mg/dL Lactic Acid (0.5-2.0) mmol/L Calcium 8.7 (8.4-10.2) mg/dL Magnesium (1.6-2.6) mg/dL Total Bilirubin 0.6 (0.0-1.0) mg/dL AST 26 (5-31) U/L ALT 11 (0-31) U/L Alkaline Phosphatase 82 (39-117) U/L Lactate Dehydrogenase (122-220) U/L C-Reactive Protein (< or = 0.50) mg/dL B-Natriuretic Peptide (<100) pg/mL Total Protein 7.1 (6.5-8.0) g/dL Albumin 3.5 (3.5-5.0) g/dL Influenza Type A (PCR) (Negative) Influenza Type B (PCR) (Negative) RSV RNA Qual (PCR) (Negative) SARS-CoV-2 RNA (RT-PCR) (Negative) <Brennen Luis MD - Last Filed: 08/27/22 07:48> Imaging Data Chest x-ray: Attestation: I personally reviewed and interpreted this imaging study as follows: <CAITLIN Brown - Last Filed: 08/26/22 21:12> My impression: Worsening pulmonary edema. <CAITLIN Brown - Last Filed: 08/26/22 21:12> Radiologist's impression: EXAMINATION: XR CHEST CLINICAL INFORMATION: Shortness of breath COMPARISON: Chest x-ray 08/22/2022, 1:20 PM TECHNIQUE: Frontal portable view of the chest was obtained. 5:40 PM FINDINGS: Status post median sternotomy for cardiac valve repair. Cardiac mediastinal contours unchanged. Prominent central hilar pulmonary vessels unchanged since prior chest x-ray. Patchy airspace opacities worse than prior exam of 08/22/2022. Likely due to developing pulmonary edema. Small bilateral pleural effusions blunting costophrenic angles. XR/XR chest 1V IMPRESSION: Worsening pulmonary edema since prior chest x-ray 08/22/2022. Small bilateral pleural effusions. Dictated By: Regulo Lancaster MD Signed By: Electronically signed by Regulo Lancaster MD 08/26/22 1800 <CAITLIN Brown - Last Filed: 08/26/22 21:12> Critical Care Time Critical Care Time Critical Care Time: Yes <CAITLIN Brown - Last Filed: 08/26/22 21:12> Total Critical Care Time: 60 <CAITLIN Brown - Last Filed: 08/26/22 21:12> Attestation: I spent 60 minutes of Critical Care Time with this patient. This does not include time spent on separately reported billable procedures. <CAITLIN Brown - Last Filed: 08/26/22 21:12> Discharge Plan Discharge Clinical Impression: CHF (congestive heart failure), Hypoxia <CAITLIN Brown - Last Filed: 08/26/22 21:12> Patient Disposition: Still a Patient <CAITLIN Brown - Last Filed: 08/26/22 21:12> Prescriptions: No Action amiodarone 200 mg tablet 200 mg PO DAILY Qty: 90 3RF sertraline 100 mg Tablet 200 mg PO DAILY atorvastatin 20 mg Tablet 20 mg PO DAILY ferrous sulfate 325 mg (65 mg iron) Tablet 325 mg PO TID albuterol sulfate [ProAir HFA] 90 mcg/actuation Hfa Aerosol Inhaler 2 puff INHALATION Q4-6H PRN (Reason: Respiratory Distress) warfarin 2.5 mg tablet Trelegy Ellipta 200-62.5-25 mcg Blister With Device 1 inh INHALATION Q24H warfarin 2.5 mg tablet 10 mg PO [facility] Protocol: Dose Management Condition: Saturday (Week One) Dose/Route: 5 mg Instruction: 2 x 2.5 mg tablets Condition: Saturday Dose/Route: 5 mg Instruction: 2 x 2.5 mg tablets Condition: Saturday Dose/Route: 5 mg Instruction: 2 x 2.5 mg tablets Condition: Saturday Dose/Route: 5 mg Instruction: 2 x 2.5 mg tablets Condition: Dose/Route: 5 mg Instruction: 2 x 2.5 mg tablets Condition: Saturday Dose/Route: 5 mg Instruction: 2 x 2.5 mg tablets Condition: Saturday Dose/Route: 5 mg Instruction: 2 x 2.5 mg tablets Condition: Saturday (Week Two) Dose/Route: 5 mg Instruction: 2 x 2.5 mg tablets Condition: Saturday Dose/Route: 5 mg Instruction: 2 x 2.5 mg tablets Condition: Saturday Dose/Route: 5 mg Instruction: 2 x 2.5 mg tablets Condition: Saturday Dose/Route: 5 mg Instruction: 2 x 2.5 mg tablets Condition: Dose/Route: 5 mg Instruction: 2 x 2.5 mg tablets Condition: Saturday Dose/Route: 5 mg Instruction: 2 x 2.5 mg tablets Condition: Saturday Dose/Route: 5 mg Instruction: 2 x 2.5 mg tablets Protocol Text: Adjustment Start Date: Saturday08/24/22 INR Value: 3.0 INR Date: 08/24/22 Recheck Date: 08/29/22 warfarin 2.5 mg tablet 7.5 mg PO Protocol: Dose Management Condition: Saturday (Week One) Dose/Route: 5 mg Instruction: 2 x 2.5 mg tablets Condition: Saturday Dose/Route: 5 mg Instruction: 2 x 2.5 mg tablets Condition: Saturday Dose/Route: 5 mg Instruction: 2 x 2.5 mg tablets Condition: Saturday Dose/Route: 5 mg Instruction: 2 x 2.5 mg tablets Condition: Dose/Route: 5 mg Instruction: 2 x 2.5 mg tablets Condition: Saturday Dose/Route: 5 mg Instruction: 2 x 2.5 mg tablets Condition: Saturday Dose/Route: 5 mg Instruction: 2 x 2.5 mg tablets Condition: Saturday (Week Two) Dose/Route: 5 mg Instruction: 2 x 2.5 mg tablets Condition: Saturday Dose/Route: 5 mg Instruction: 2 x 2.5 mg tablets Condition: Saturday Dose/Route: 5 mg Instruction: 2 x 2.5 mg tablets Condition: Saturday Dose/Route: 5 mg Instruction: 2 x 2.5 mg tablets Condition: Dose/Route: 5 mg Instruction: 2 x 2.5 mg tablets Condition: Saturday Dose/Route: 5 mg Instruction: 2 x 2.5 mg tablets Condition: Saturday Dose/Route: 5 mg Instruction: 2 x 2.5 mg tablets Protocol Text: Adjustment Start Date: Saturday08/24/22 INR Value: 3.0 INR Date: 08/24/22 Recheck Date: 08/29/22 lisinopril 5 mg tablet 5 mg PO DAILY Hold Instructions: Doctor's Order, until you see your primary care levothyroxine 25 mcg tablet 25 mcg PO DAILY furosemide [Lasix] 20 mg tablet 20 mg PO DAILY@1700 amoxicillin-pot clavulanate 500-125 mg tablet 1 tab PO BID <CAITLIN Brown - Last Filed: 08/26/22 21:12>
[2022-08-26 17:38] LABS: MANUAL DIFF FLAG NO
[2022-08-26] MEDS: dexAMETHasone sod phosphate 10 MG/ML VIAL IVPUSH (17:39)
[2022-08-26 17:40] LABS: VBG Base Excess -1.2 mmol/L; VBG HCO3 22 mmol/L (22-26); VBG pCO2 34 mmHg; VBG pH 7.42 (7.32-7.43); VBG pO2 45 mmHg
[2022-08-26 17:42] LABS: Basophils Percent Auto 0.1 % (0-2); Eosinophils Absolute Auto 0.1 X10*3/uL (0.0-0.4); Eosinophils Percent Auto 0.7 % (0-4); Hematocrit 28.7 % (37.0-47.0); Hemoglobin 8.8 g/dl (12.0-16.0); Imm Gran Abs Auto 0.04 X10*3/uL (0.00-0.03); Imm Gran Pct Auto 0.5 % (0.0-0.4); Lymphocytes Absolute Auto 0.3 X10*3/uL (1.2-4.9); Lymphocytes Percent Auto 4.6 % (20-40); Mean Corpuscular HGB Conc 30.7 g/dl (31.0-35.0); Mean Corpuscular Hemoglobin 27.7 pg (27.0-33.0); Mean Corpuscular Volume 90.3 fL (80.0-98.0); Mean Platelet Volume 11.3 fL (9.4-12.3); Monocytes Absolute Auto 0.5 X10*3/uL (0.1-1.2); Monocytes Percent Auto 6.6 % (2-11); Neutrophils Absolute Auto 6.4 x10*3/uL (2.0-8.3); Neutrophils Percent Auto 87.5 % (45-73); Platelet Count 176 X10*3/uL (160-400); Red Blood Count 3.18 X10*6/uL (4.20-5.50); Red Cell Distribution Width 16.6 % (11.0-16.0); White Blood Count 7.3 X10*3/uL (4.8-10.8)
[2022-08-26 17:43] LABS: Venous Blood Gas Refer to POC result
[2022-08-26 17:54] LABS: Alanine Aminotransferase 10 U/L (0-31); Albumin Level 3.6 g/dL (3.5-5.0); Alkaline Phosphatase 87 U/L (39-117); Anion Gap 14 (12-20); Aspartate Amino Transferase 24 U/L (5-31); Bilirubin Total 0.8 mg/dL (0.0-1.0); Blood Urea Nitrogen 23 mg/dL (9-16); Calcium 8.7 mg/dL (8.4-10.2); Carbon Dioxide 24 mmol/L (22-29); Chloride 102 mmol/L (96-108); Creatinine Clr Calc Pharmacy 53.5; Estimated Glomerular Filt Rate 60; Glucose Random 96 mg/dL (60-115); Magnesium 2.1 mg/dL (1.6-2.6); Potassium 3.8 mmol/L (3.3-5.1); Sodium 136 mmol/L (135-145); Total Protein 7.2 g/dL (6.5-8.0)
[2022-08-26 18:00] LABS: B Type Natriuretic Peptide 164 pg/mL (<100)
[2022-08-26 18:29] LABS: Influenza A PCR NEGATIVE (Negative); Influenza B PCR NEGATIVE (Negative); Resp Syncy Virus RNA Qual PCR NEGATIVE (Negative); SARS COV2 PCR INHOUSE NEGATIVE (Negative)
[2022-08-26] MEDS: Magnesium Sulfate/H2O 2 GM/50 ML PIGGYBACK IV (18:36)
--- NOTE | 2022-08-26 19:52 | ECG_ITS ---
Test Reason : DYSPNEA Blood Pressure : / mmHG Vent. Rate : 067 BPM Atrial Rate : 000 BPM P-R Int : 000 ms QRS Dur : 106 ms QT Int : 430 ms P-R-T Axes : 000 057 245 degrees QTc Int : 454 ms Normal sinus rhythm Minimal voltage criteria for LVH, may be normal variant ( [place] product ) ST & T wave abnormality, consider inferior ischemia ST & T wave abnormality, consider anterior ischemia Abnormal ECG When compared with ECG of 21-JUL-2022 06:32, T wave inversion now evident in Anterior leads Referred By: Felisha Platt Electronically Signed By:REDD GIORDANO MD
--- NOTE | 2022-08-26 21:08 | P.CONCC_ITS ---
History of Present Illness Data of Consult Service Date: 08/26/22 Requesting physician: Felisha Platt Primary Care Provider: Daniela Chopra MD HPI Reason for consult: Hypoxic respiratory failure/pulmonary edema HPI: ?66-year-old female with underlying history of of atrial fibrillation, status post ablation, [facility] mitral valve replacement, aortic stenosis status post repair, hypothyroidism, hypertension, anxiety and depression, iron- deficiency anemia, COPD who is now O2 dependent on a p.r.n. 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 Nelson ?had being asking the patient to come to the hospital but she had refused. ?The patient s tates that she gets really short of breath particularly with exertion, denies any leg edema. ? In the emergency room, she was noted to be slightly hypotensive and certainly hy poxic with a sat 74% on room air, her workup revealed white count 7.3, H&H of 8.8 and 28.7 respectively, MCV 90.? Platelets 176.? Venous blood gas reveals no abnormalities.? Sodium 136, potassium 3.8, chloride 102, carbon dioxide 24, anion gap 14, BUN 23, creatinine 0.94, lactic acid 1.0.? Normal liver functions.? BNP 164.? Influenza, RSV and COVID negative.? Her EKG ?shows sinus rhythm ventricular rate 74 beats per minute. ?Nonspecific ST and T-wave abnormalities, age-indeterminate changes.? No comparison. A chest x-ray shows worsening pulmonary edema since prior chest x-ray on 08/22/2022 with small bilateral pleural effusions.? Patient was not diuresed yet given that her blood pressure was soft and they were concerned that it will further bring her blood pressure down, we were asked to see the patient for possible admission to the ICU. ? Review of systems: As above, otherwise the patient denies any prior history of strokes, migraine headaches, head trauma, no eyes, ears or nose problems, no problems swallowing or with phonation, denies any history of chest pain, palpitations, coronary disease, admits to cough with clear sputum production, no pneumonia, abdominal pain, nausea, vomiting, diarrhea, abdominal surgeries, melena, hematochezia, hematemesis, hematuria, kidney stones, liver problems, immunocompromise state of any kind, no history of DVT or PE, leg edema, fractures or extremity surgeries all other review of systems were reviewed and they were all negative. ? Past Medical History:? As above ? Past Surgical History:? As above Gastric sleeve ? Family history:? Noncontributory ? Social History:? 25-30 pack-year history, quit 10 years ago.? No alcohol or drugs.? Lives at home with her daughter.? Does not use a walker. ? CODE STATUS: FULL CODE ? Allergies: NKDA, paper tape causes rash and redness ? Home Medications: See Med Rec ? PHYSICAL EXAM: VS: ?99/27, 76, 20, 97%, on a mask General:? Alert oriented x3 no acute distress.? Speaking full sentences.? Speech is well articulated, thought process is coherent.? Following all commands. Skin:? Intact, no lesions, edema, erythema, clubbing or cyanosis.? No ulcers. HEENT:? Head is normocephalic, atraumatic, pupils equal round reactive to light accommodation bilaterally.? Extraocular movements appear intact.? Buccal mucosa is moist, Neck is supple without lymphadenopathy. Cardiac:? Clear S1-S2, although irregular, slight murmur at the left upper sternal border with mechanical click.? No rubs or gallops.? It is Pulmonary:? Diminished lung sounds bilaterally with fine crackles at the bases, no rhonchi or wheezes Abdomen:? Protuberant, positive bowel sounds in all 4 quadrants.? Soft, nontender, no rebound or guarding.? Musculoskeletal:? Moving all 4 extremities upon request a major joints, there is no crepitus or tenderness.? The strength is 5/5 bilaterally and throughout all 4 extremities.? There is no leg edema , no calf tenderness , no leg asymmetry.? Gait not assessed at this point. Neurologic:? As above, cranial nerves 2-12 are grossly intact.? No focal deficits noted. Motor strength as above.? Vascular:? 2+ pulses upper and lower extremities distally. ? SIGNIFICANT LABORATORY DATA:? As above ? REVIEW OF IMAGES: ?As above ? EKG REVIEW:? As above ? ASSESSMENT : 1. Acute hypoxic respiratory failure likely due interstitial lung disease and pulmonary edema although her BNP has not been higher than normal, she does have a preserved ejection fraction 2. Borderline hypotensive could be due to Zestril intake 3. Chronic history of atrial fibrillation currently on Coumadin 4. 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 History of COPD without overt exacerbation 6. Anemia of chronic disease and iron deficiency ? PLAN OF CARE: Unfortunately this point we cannot accommodate the patient's care in the ICU due to bed availability and personnel, the patient could be gently diuresed and if her blood pressure decreases, she can be placed on Levophed for which she may need a central line and potential transfer to another facility if we can not care of her here.? Dobutamine which was initially consider may not be a good idea but she does have underlying AFib, certainly suggested to consult with Cardiology. ?If otherwise the patient is able to tolerate slow diuresis, we may consider Lasix 20 mg t.i.d. versus a low-dose drip.? Rate control would be important with other agents such as Cardizem and is likely a beta-ashok which can cause bronchoconstriction but controlling the rate would be important to maintain good cardiac output and eventually a good blood pressure. Will add serum LDH, ESR and CRP, consider Chest CT for further eval of amiodarone related ILD and pleural efussions, this last is unlikely to be exudative; I doubt amiodarone pneumonitis. Consider steroids and consult Pulm. ? All of the above was communicated directly to the ER physician corporate administrative assistant and the case was discussed with Dr. Marrufo. ? Critical care time used for critical evaluation of this patient, diagnosis, treatment and coordination of care, review her records and documentation TOTAL CRITICAL CARE TIME? 75 MIN . discussion and coordination with consultants, completely separate from any procedures performed. ? [facility] Past Medical History Medical History (HFpEF) heart failure with preserved ejection fraction Aortic stenosis Atrial flutter COPD (chronic obstructive pulmonary disease) Exercise hypoxemia Interstitial lung disease Obesity Paroxysmal atrial fibrillation Family History Family History Father No problems noted. Mother CVD (cardiovascular disease) Surgical History Surgical History History of sleeve gastrectomy (~2017) Hx of section Hx of mitral valve replacement (~2004) Hx of transesophageal echocardiography (SHELIA) for monitoring (~2015) S/P MVR (mitral valve replacement) Social History Social History Household Members: Family Housing: House Do you presently have visiting nurse or other home services: No Alcohol intake: never Patient Tobacco Use Status: Former Tobacco user Tobacco use type: Cigarette Advance Directives: Yes Advance Directives Information Provided: No Advance Directives on File: No Advance Directives Date on File: 04/27/21 service: No Current occupational status: disabled Meds Allergies Allergy/AdvReac Type Severity Reaction Status Date / Time PAPER TAPE Allergy Mild REDNESS, Uncoded 08/24/22 08:31 RASH Home Medications Medication Instructions Recorded Confirmed Last Taken Type furosemide 20 mg tablet (Lasix) 20 mg PO DAILY@1700 09/01/20 08/22/22 07/20/22 History levothyroxine 25 mcg tablet 25 mcg PO DAILY 09/01/20 08/22/22 07/21/22 History lisinopril 5 mg tablet 5 mg PO DAILY 09/01/20 08/22/22 07/21/22 History albuterol sulfate 90 mcg/actuation 2 puff inhalation Q4-6H PRN 04/26/21 08/22/22 07/21/22 History aerosol inhaler (ProAir HFA) Respiratory Distress atorvastatin 20 mg tablet 20 mg PO DAILY 04/26/21 08/22/22 07/21/22 History ferrous sulfate 325 mg (65 mg 325 mg PO TID 04/26/21 08/22/22 07/21/22 History iron) tablet sertraline 100 mg tablet 200 mg PO DAILY 04/26/21 08/22/22 07/21/22 History fluticasone fur. 200 mcg-umeclid 1 inh inhalation Q24H 07/21/22 08/22/22 07/21/22 History 62.5 mcg-vilant 25 mcg inhalat.powder (Trelegy Ellipta) warfarin 2.5 mg tablet 7.5 mg PO MOWESA 07/21/22 08/24/22 07/21/22 History warfarin 2.5 mg tablet 10 mg PO SUTUTHFR 07/21/22 08/24/22 07/20/22 History amoxicillin 500 mg-potassium 1 tab PO BID 08/22/22 08/22/22 Unknown History clavulanate 125 mg tablet Physical Exam Vital Signs: Vital Signs: Last Vital Signs Temp 97.3 F 08/26/22 17:32 Pulse 76 08/26/22 18:35 Resp 20 08/26/22 18:35 BP 99/27 L 08/26/22 18:35 Pulse Ox 97 08/26/22 18:35 O2 Del Method 08/26/22 18:35 BMI result Body Mass Index 26.9 Results Labs CBC & Chem 7: 08/26/22 17:29 08/26/22 17:29 Labs: Short CBC 08/26/22 Range/Units 17:29 WBC 7.3 (4.8-10.8) X10*3/uL Hgb 8.8 L (12.0-16.0) g/dl Hct 28.7 L (37.0-47.0) % Plt Count 176 (160-400) X10*3/uL BMP 08/26/22 17:29 Sodium 136 Potassium 3.8 Chloride 102 Carbon Dioxide 24 BUN 23 H Creatinine 0.94 Calcium 8.7 Liver Function 08/26/22 Range/Units 17:29 Total Bilirubin 0.8 (0.0-1.0) mg/dL AST 24 D (5-31) U/L ALT 10 (0-31) U/L Alkaline Phosphatase 87 (39-117) U/L Albumin 3.6 (3.5-5.0) g/dL
[2022-08-26 21:20] LABS: Prothrombin Time 48.1 SEC (10.0-13.1)
[2022-08-26 21:22] LABS: Partial Thromboplastin Time 45.4 SEC (26.0-36.4)
[2022-08-26] MEDS: Furosemide 20 MG/2 ML VIAL IVPUSH ×2 (21:33→22:18)
--- NOTE | 2022-08-26 22:20 | PC.NURSE ---
MD aware of pt BP and would still like to continue with lasix. Pt A&Ox4, speaking in full complete sentences.
[2022-08-26 23:12] LABS: C Reactive Protein 18.56 mg/dL (< or = 0.50); Lactate Dehydrogenase 366 U/L (122-220)
[2022-08-26] MEDS: Furosemide 40 MG/4 ML VIAL IVPUSH (23:46)
[2022-08-27] VITALS (7 sets, daily range): BP systolic 90–114; BP diastolic 34–51; PULSE 47–69; RESP 12–22; TEMP 36.2–37; O2SAT 91–98; BMI 30.8
--- NOTE | 2022-08-27 | ECG_ITS ---
Test Reason : repeat Blood Pressure : / mmHG Vent. Rate : 050 BPM Atrial Rate : 050 BPM P-R Int : 142 ms QRS Dur : 102 ms QT Int : 486 ms P-R-T Axes : 086 054 233 degrees QTc Int : 443 ms Sinus bradycardia T wave abnormality, consider inferior ischemia T wave abnormality, consider anterior ischemia Abnormal ECG When compared with ECG of 26-AUG-2022 21:34, Sinus rhythm has replaced Junctional rhythm Referred By: Gabriela Nieto Electronically Signed By:REDD GIORDANO MD
[2022-08-27 06:21] LABS: MANUAL DIFF FLAG NO
[2022-08-27 06:41] LABS: Alanine Aminotransferase 11 U/L (0-31); Albumin Level 3.5 g/dL (3.5-5.0); Alkaline Phosphatase 82 U/L (39-117); Anion Gap 18 (12-20); Aspartate Amino Transferase 26 U/L (5-31); Bilirubin Total 0.6 mg/dL (0.0-1.0); Blood Urea Nitrogen 29 mg/dL (9-16); Calcium 8.7 mg/dL (8.4-10.2); Carbon Dioxide 21 mmol/L (22-29); Chloride 105 mmol/L (96-108); Creatinine Clr Calc Pharmacy 52.9; Estimated Glomerular Filt Rate 59; Glucose Random 132 mg/dL (60-115); Sodium 140 mmol/L (135-145); Total Protein 7.1 g/dL (6.5-8.0)
[2022-08-27 06:45] LABS: Basophils Percent Auto 0.2 % (0-2); Hematocrit 27.9 % (37.0-47.0); Hemoglobin 8.6 g/dl (12.0-16.0); Imm Gran Abs Auto 0.03 X10*3/uL (0.00-0.03); Imm Gran Pct Auto 0.5 % (0.0-0.4); Lymphocytes Absolute Auto 0.4 X10*3/uL (1.2-4.9); Lymphocytes Percent Auto 6.3 % (20-40); Mean Corpuscular HGB Conc 30.8 g/dl (31.0-35.0); Mean Corpuscular Hemoglobin 27.5 pg (27.0-33.0); Mean Corpuscular Volume 89.1 fL (80.0-98.0); Mean Platelet Volume 11.8 fL (9.4-12.3); Monocytes Absolute Auto 0.3 X10*3/uL (0.1-1.2); Monocytes Percent Auto 5.8 % (2-11); Neutrophils Absolute Auto 5.1 x10*3/uL (2.0-8.3); Neutrophils Percent Auto 87.2 % (45-73); Platelet Count 184 X10*3/uL (160-400); Red Blood Count 3.13 X10*6/uL (4.20-5.50); Red Cell Distribution Width 16.5 % (11.0-16.0); White Blood Count 5.9 X10*3/uL (4.8-10.8)
--- NOTE | 2022-08-27 08:04 | PC.NURSE ---
pt resting in bed, coughing and unable to bring up sputum. coughing brings down o2 sat into the high 80s. pt on o2 and denies feeling sob.
--- NOTE | 2022-08-27 08:41 | PHA.MEDREC ---
Pharmacy Consult ? Medication Reconciliation Pharmacy has completed the medication reconciliation. Patient confirmed all medications. Torrie Gayle, FrankD
[2022-08-27 08:47] LABS: Erythrocyte Sedimentation Rate 109 MM/HR (0-20)
--- NOTE | 2022-08-27 09:18 | P.CONCA_ITS ---
History of Present Illness History of Present Illness Date of Service: 08/27/22 Chief complaint: DYSPENA Narrative: This is a cardiology consultation regarding congestive heart failure. Patient is generally seen by Dr. Nelson. Seems to have fairly complex history including history of mitral valve replacement, persistent atrial fibrillation but more recently in sinus, diastolic congestive heart failure, moderate to severe aortic stenosis, question of pulmonary fibrosis. Apparently, she was hospitalized in [place] for shortness of breath. She believes that her problems started after amiodarone dose but not entirely clear if that is the main issue. She states she was also told to have pulmonary fibrosis from amiodarone use but this seems to be rather recent medication. Hence less likely to be the etiology. Any case, after discharge from [place] she was put on home oxygen as well. In the last few days, her breathing again got worse and hence she is hospitalized. She has been kept in the ER overnight as she has had low blood pressures. Otherwise, it seems that she responded well to diuretics. A bit more comfortable now. Review of Systems Review of Systems: Yes all other systems are reviewed and are negative Constitutional: Constitutional: Reports as per HPI Eyes: Eyes: Reports as per HPI ENT: Reports as per HPI Cardiovascular: Cardiovascular: Reports as per HPI, Denies acrocyanosis, Denies cool extremities, Denies chest pain, Denies leg edema, Denies lightheadedness, Denies palpitations and Reports dyspnea Respiratory: Respiratory: Reports as per HPI, Reports no additional respiratory complaints and Reports dyspnea Gastrointestinal: Gastrointestinal: Reports as per HPI and Reports no additional gastrointestinal complaints Genitourinary: Genitourinary: Reports as per HPI Musculoskeletal: Musculoskeletal: Reports no additional musculoskeletal complaints and Reports as per HPI Integumentary/Breasts: Skin/Breast: Reports system reviewed and no additional complaints, except as docu Neurologic: Reports system reviewed and no additional complaints, except as documented and Reports as per HPI Psychiatric: Psychiatric: Reports no additional psychiatric complaints and Reports as per HPI Endocrine: Endocrine: Reports no additional endocrine complaints, Reports as per HPI and Denies palpitations Hematologic/Lymphatic: Hematologic/Lymphatic: Reports no additional hematologic/lymphatic complaints and Reports as per HPI Allergic/Immunologic: Allergic/Immunologic: Reports no additional allergic/immunologic complaints and Reports as per HPI PMFSH Past Medical History Medical History (HFpEF) heart failure with preserved ejection fraction Aortic stenosis Atrial flutter COPD (chronic obstructive pulmonary disease) Exercise hypoxemia Interstitial lung disease Obesity Paroxysmal atrial fibrillation Family History Family History Father No problems noted. Mother CVD (cardiovascular disease) Surgical History Surgical History History of sleeve gastrectomy (~2017) Hx of section Hx of mitral valve replacement (~2004) Hx of transesophageal echocardiography (SHELIA) for monitoring (~2015) S/P MVR (mitral valve replacement) Social History Social History Household Members: Family Housing: House Do you presently have visiting nurse or other home services: No Alcohol intake: never Patient Tobacco Use Status: Former Tobacco user Tobacco use type: Cigarette Advance Directives: Yes Advance Directives Information Provided: No Advance Directives on File: No Advance Directives Date on File: 04/27/21 service: No Current occupational status: disabled Meds Allergies Allergy/AdvReac Type Severity Reaction Status Date / Time PAPER TAPE Allergy Mild REDNESS, Uncoded 08/24/22 08:31 RASH Active Medications: Current Medications Pharmacy Consult (Consult Rx Perform Med Rec) 1 each MISCELLANE ONCE PRN PRN Reason: Consult order Home Medications Medication Instructions Recorded Confirmed Last Taken Type furosemide 20 mg tablet (Lasix) 20 mg PO DAILY@1700 09/01/20 08/27/22 07/20/22 History levothyroxine 25 mcg tablet 25 mcg PO DAILY 09/01/20 08/27/22 07/21/22 History lisinopril 5 mg tablet 5 mg PO DAILY 09/01/20 08/27/22 07/21/22 History albuterol sulfate 90 mcg/actuation 2 puff inhalation Q4-6H PRN 04/26/21 08/27/22 07/21/22 History aerosol inhaler (ProAir HFA) Respiratory Distress atorvastatin 20 mg tablet 20 mg PO DAILY 04/26/21 08/27/22 07/21/22 History ferrous sulfate 325 mg (65 mg 325 mg PO TID 04/26/21 08/27/22 07/21/22 History iron) tablet sertraline 100 mg tablet 200 mg PO DAILY 04/26/21 08/27/22 07/21/22 History fluticasone fur. 200 mcg-umeclid 1 inh inhalation Q24H 07/21/22 08/27/22 07/21/22 History 62.5 mcg-vilant 25 mcg inhalat.powder (Trelegy Ellipta) warfarin 2.5 mg tablet See Protocol PO DAILY 07/21/22 08/24/22 07/20/22 History warfarin 2.5 mg tablet 5 mg PO DAILY 08/26/22 08/27/22 Unknown History Physical Exam Vital Signs: Vital Signs: Last Vital Signs Temp 97.6 F 08/27/22 07:16 Pulse 48 L 08/27/22 07:16 Resp 16 08/27/22 07:16 BP 105/34 L 08/27/22 07:16 Pulse Ox 98 08/27/22 07:16 O2 Del Method 08/27/22 07:16 O2 Flow Rate 4 08/27/22 07:16 BMI result Body Mass Index 26.9 Const: General: comfortable and no acute distress Orientation/consciousness: patient oriented x3 HEENT: Other: Unremarkable Head: Yes normal to inspection Neck: Neck: Yes normal visual inspection Chest: Chest palpation & inspection: normal inspection of the chest Resp: Auscultation: crackles bilateral Cardio: Other: prosthetic heart sounds+ Palpation: normal PMI Heart sounds: no gallops, Murmur heart sound present systolic III/, at the apex and at the right sternal border and no rubs GI: Palpation (GI): Soft to palpation Back/Spine/Pelvis: Other: unremarkable Skin: General skin exam: no rashes or lesions noted Neuro: General: patient oriented x3 Extrem: General: Yes normal to inspection Psych: Mental Status: mental status grossly normal Objective Labs and Meds Result diagrams: 08/27/22 06:15 08/27/22 06:15 Lab results: Laboratory Results - last 24 hr 08/26/22 08/26/22 08/26/22 17:29 17:29 17:29 WBC 7.3 RBC 3.18 L Hgb 8.8 L Hct 28.7 L MCV 90.3 MCH 27.7 MCHC 30.7 L RDW 16.6 H Plt Count 176 MPV 11.3 Immature Gran % (Auto) 0.5 H Neut % (Auto) 87.5 H Lymph % (Auto) 4.6 L [place] % (Auto) 6.6 Eos % (Auto) 0.7 Baso % (Auto) 0.1 Lymph # (Auto) 0.3 L [place] # (Auto) 0.5 Eos # (Auto) 0.1 Baso # (Auto) 0.0 Abs Immat Gran (auto) 0.04 H Absolute Neuts (auto) 6.4 Absolute Nucleated RBC 0.000 Nucleated RBC % (auto) 0.0 ESR PT INR APTT VBG pH VBG pCO2 VBG pO2 VBG HCO3 VBG O2 Saturation VBG Base Excess Sodium 136 Potassium 3.8 Chloride 102 Carbon Dioxide 24 Anion Gap 14 BUN 23 H Creatinine 0.94 Estim Creat Clear Calc 53.5 Estimated GFR 60 Random Glucose 96 Lactic Acid 1.0 Calcium 8.7 Magnesium 2.1 Total Bilirubin 0.8 AST 24 D ALT 10 Alkaline Phosphatase 87 Lactate Dehydrogenase 366 H C-Reactive Protein 18.56 H B-Natriuretic Peptide Total Protein 7.2 Albumin 3.6 Respiratory Panel [place] Adenovirus (Rapid PCR) B.pert (TEM-PCR) B.parapertussis DNA PCR C. pneumoniae DNA (PCR) Coronavirus OC43 (PCR) Coronavirus HKU1 (PCR) Coronavirus 229E (PCR) Coronavirus NL63 (PCR) Human Metapneumovir PCR Influenza A (RT-PCR) Influenza Type A (PCR) Influenza B (RT-PCR) Influenza Type B (PCR) M. pneumoniae (PCR) Parainfluenza 1 (PCR) Parainfluenza 2 (PCR) Parainfluenza 3 (PCR) Parainfluenza 4 (PCR) RSV (PCR) RSV RNA Qual (PCR) Entero/Rhino (PCR) SARS-CoV-2 RNA (RT-PCR) 08/26/22 08/26/22 08/26/22 17:29 17:29 17:36 WBC RBC Hgb Hct MCV MCH MCHC RDW Plt Count MPV Immature Gran % (Auto) Neut % (Auto) Lymph % (Auto) [place] % (Auto) Eos % (Auto) Baso % (Auto) Lymph # (Auto) [place] # (Auto) Eos # (Auto) Baso # (Auto) Abs Immat Gran (auto) Absolute Neuts (auto) Absolute Nucleated RBC Nucleated RBC % (auto) ESR PT INR APTT VBG pH 7.42 VBG pCO2 34 VBG pO2 45 VBG HCO3 22 VBG O2 Saturation 69.0 VBG Base Excess -1.2 Sodium Potassium Chloride Carbon Dioxide Anion Gap BUN Creatinine Estim Creat Clear Calc Estimated GFR Random Glucose Lactic Acid Calcium Magnesium Total Bilirubin AST ALT Alkaline Phosphatase Lactate Dehydrogenase C-Reactive Protein B-Natriuretic Peptide 164 H Total Protein Albumin Respiratory Panel [place] Adenovirus (Rapid PCR) B.pert (TEM-PCR) B.parapertussis DNA PCR C. pneumoniae DNA (PCR) Coronavirus OC43 (PCR) Coronavirus HKU1 (PCR) Coronavirus 229E (PCR) Coronavirus NL63 (PCR) Human Metapneumovir PCR Influenza A (RT-PCR) Influenza Type A (PCR) NEGATIVE Influenza B (RT-PCR) Influenza Type B (PCR) NEGATIVE M. pneumoniae (PCR) Parainfluenza 1 (PCR) Parainfluenza 2 (PCR) Parainfluenza 3 (PCR) Parainfluenza 4 (PCR) RSV (PCR) RSV RNA Qual (PCR) NEGATIVE Entero/Rhino (PCR) SARS-CoV-2 RNA (RT-PCR) NEGATIVE 08/26/22 08/26/22 08/27/22 17:49 20:58 06:15 WBC 5.9 RBC 3.13 L Hgb 8.6 L Hct 27.9 L MCV 89.1 MCH 27.5 MCHC 30.8 L RDW 16.5 H Plt Count 184 MPV 11.8 Immature Gran % (Auto) 0.5 H Neut % (Auto) 87.2 H Lymph % (Auto) 6.3 L [place] % (Auto) 5.8 Eos % (Auto) 0.0 Baso % (Auto) 0.2 Lymph # (Auto) 0.4 L [place] # (Auto) 0.3 Eos # (Auto) 0.0 Baso # (Auto) 0.0 Abs Immat Gran (auto) 0.03 Absolute Neuts (auto) 5.1 Absolute Nucleated RBC 0.000 Nucleated RBC % (auto) 0.0 ESR PT 48.1 H INR 4.0 H D APTT 45.4 H VBG pH VBG pCO2 VBG pO2 VBG HCO3 VBG O2 Saturation VBG Base Excess Sodium Potassium Chloride Carbon Dioxide Anion Gap BUN Creatinine Estim Creat Clear Calc Estimated GFR Random Glucose Lactic Acid Calcium Magnesium Total Bilirubin AST ALT Alkaline Phosphatase Lactate Dehydrogenase C-Reactive Protein B-Natriuretic Peptide Total Protein Albumin Respiratory Panel [place] Cancelled Adenovirus (Rapid PCR) Cancelled B.pert (TEM-PCR) Cancelled B.parapertussis DNA PCR Cancelled C. pneumoniae DNA (PCR) Cancelled Coronavirus OC43 (PCR) Cancelled Coronavirus HKU1 (PCR) Cancelled Coronavirus 229E (PCR) Cancelled Coronavirus NL63 (PCR) Cancelled Human Metapneumovir PCR Cancelled Influenza A (RT-PCR) Cancelled Influenza Type A (PCR) Influenza B (RT-PCR) Cancelled Influenza Type B (PCR) M. pneumoniae (PCR) Cancelled Parainfluenza 1 (PCR) Cancelled Parainfluenza 2 (PCR) Cancelled Parainfluenza 3 (PCR) Cancelled Parainfluenza 4 (PCR) Cancelled RSV (PCR) Cancelled RSV RNA Qual (PCR) Entero/Rhino (PCR) Cancelled SARS-CoV-2 RNA (RT-PCR) Cancelled 08/27/22 08/27/22 06:15 06:15 WBC RBC Hgb Hct MCV MCH MCHC RDW Plt Count MPV Immature Gran % (Auto) Neut % (Auto) Lymph % (Auto) [place] % (Auto) Eos % (Auto) Baso % (Auto) Lymph # (Auto) [place] # (Auto) Eos # (Auto) Baso # (Auto) Abs Immat Gran (auto) Absolute Neuts (auto) Absolute Nucleated RBC Nucleated RBC % (auto) ESR 109 H PT INR APTT VBG pH VBG pCO2 VBG pO2 VBG HCO3 VBG O2 Saturation VBG Base Excess Sodium 140 Potassium 4.0 Chloride 105 Carbon Dioxide 21 L Anion Gap 18 BUN 29 H Creatinine 0.95 Estim Creat Clear Calc 52.9 Estimated GFR 59 Random Glucose 132 H Lactic Acid Calcium 8.7 Magnesium Total Bilirubin 0.6 AST 26 ALT 11 Alkaline Phosphatase 82 Lactate Dehydrogenase C-Reactive Protein B-Natriuretic Peptide Total Protein 7.1 Albumin 3.5 Respiratory Panel [place] Adenovirus (Rapid PCR) B.pert (TEM-PCR) B.parapertussis DNA PCR C. pneumoniae DNA (PCR) Coronavirus OC43 (PCR) Coronavirus HKU1 (PCR) Coronavirus 229E (PCR) Coronavirus NL63 (PCR) Human Metapneumovir PCR Influenza A (RT-PCR) Influenza Type A (PCR) Influenza B (RT-PCR) Influenza Type B (PCR) M. pneumoniae (PCR) Parainfluenza 1 (PCR) Parainfluenza 2 (PCR) Parainfluenza 3 (PCR) Parainfluenza 4 (PCR) RSV (PCR) RSV RNA Qual (PCR) Entero/Rhino (PCR) SARS-CoV-2 RNA (RT-PCR) ECG Interpretation: EKG with sinus rhythm at 67/Min; voltage criteria for LVH. T inversions in the anterior as well as inferior leads. Has been seen on prior EKGs but not all of them. Imaging Radiologist's impression: Impressions Chest X-Ray 08/26/22 17:48 IMPRESSION: Worsening pulmonary edema since prior chest x-ray 08/22/2022. Small bilateral pleural effusions. Chest CT 08/27/22 08:00 IMPRESSION: * Cardiomegaly, small pleural effusions and bilateral groundglass pulmonary opacities. This has the appearance of cardiogenic pulmonary edema. * Pulmonary arteries are large, which can be a manifestation of pulmonary arterial hypertension. * Mild lymphadenopathy in the mediastinum is likely reactive in nature. * No overt findings of amiodarone toxicity. There are no hyperdense peripheral infiltrates in the lungs. Also, there is no evidence of any abnormal increased attenuation within the liver or spleen. * Incidentally noted are the lipid rich adenomas of the left adrenal gland. Assessment and Plan (1) Acute on chronic heart failure with preserved ejection fraction (HFpEF): Status: Acute Clinically, she does have crackles in lung moura but no peripheral edema. Radiology findings suggestive of pulmonary edema. Hence continue IV diuretics. (2) Persistent atrial fibrillation: Status: Acute Seems to be in sinus rhythm. With regard amiodarone use, will need to get Pulmonary involved to see if there is truly evidence of toxicity or not. (3) S/P MVR (mitral valve replacement): Status: Acute Will need to get echocardiogram to assess prosthetic valve function. (4) Aortic stenosis: Status: Acute Last echocardiogram from 2020 reported to have moderate to severe aortic stenosis. We can recheck to see if this is the etiology for her symptoms. (5) Abnormal EKG: Status: Acute Seems to be rather chronic finding. Can check troponins. Plan Discussed with Angela Kirkland. Procedures Date of Service Date of Service: 08/27/22
--- NOTE | 2022-08-27 09:32 | CA_ITS ---
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 The calculated ejection fraction is 64% by biplane method. - There is severe aortic valve stenosis. The peak aortic gradient is 90 mmHg.The mean gradient is 47 mmHg. The aortic valve area is 0.98 cm2. - There is moderate aortic valve regurgitation. - A mechanical prosthetic mitral valve is present. The prosthetic mitral valve appears to be functioning normally. - Moderate pulmonary hypertension is present. Findings Left Ventricle Normal left ventricular cavity size. There is mildly increased left ventricular wall thickness. The left ventricular systolic function is normal. The calculated ejection fraction is 64% by biplane method. There is no evidence of regional wall motion abnormalities. E/E prime ratio is >15, consistent with elevated filling pressures. Evidence suggests grade II (moderate) diastolic dysfunction. Right Ventricle Normal right ventricular cavity size and systolic function. Atria Severe biatrial enlargement. Aortic Valve There is moderate calcification of the aortic valve. There is severe aortic valve stenosis. The peak aortic gradient is 90 mmHg.The mean gradient is 47 mmHg. The aortic valve area is 0.98 cm2. There is moderate aortic valve regurgitation. Mitral Valve A mechanical prosthetic mitral valve is present. The prosthetic mitral valve appears to be functioning normally. The mitral valve was not well visualized. Mean gradient across the mitral valve 5mmHg at 57/min; within acceptable limits. No significant regurgitation. Pulmonic Valve There is trace pulmonic valve regurgitation. Tricuspid Valve There is mild tricuspid valve regurgitation. Moderate pulmonary hypertension is present. Tricuspid annular ring noted. Great Vessels The asc aorta is normal in size. Venous The inferior vena cava is dilated and collapses less than 50% with inspiration. Pericardium/Pleural There is no evidence of pericardial effusion. Prior Study Comparison Changes noted compared to prior study dated: 10/10/2021. Progression of aortic valve stenosis. Measurements 2D Linear Measurements IVSd: 1.29 0.6-0.9/0.6-1.0 cm LVIDd: 5.35 3.9-5.3/4.2-5.9 cm LVIDd Index: 3.18 2.4-3.2/2.2-3.1 cm/m2 LVIDs: 3.86 2.0-3.6 cm LVPWd: 1.22 0.7-1.1 cm LV Mass: 345.76 67-162/88-224 g LV Mass Index: 205.81 43-95/49-115 g/m2 LVOT Diam: 2.00 3.0+(-)1.3 cm 2D Systolic Function EF 4C: 68.80 >55% EF 2C: 59.20 >55% EF BiP: 63.80 >55% Mitral Valve MV VTI: 0.69 MV Pk Vern: 2.25 MV Mn Vern: 1.00 MV Pk Grad: 20.00 MV Mn Grad: 5.00 MV Pk E: 2.04 MV PK A: 0.68 MV Decel Time: 201.00 E/A: 3.00 E'Lateral: 10.10 E'Medial: 7.18 E/E' Med: 28.40 E/E' Lat: 20.20 PHT: 59.00 MVA PHT: 3.73 MVA Continuity: 1.70 Decel [place]: 10.17 Aortic Valve AoV Pk Vern: 4.74 AoV Mn Vern: 3.11 AoV VTI: 1.20 AoV Pk Grad: 90.00 Aov Mn Grad: 47.00 RADHA Cont.VTI: 0.98 AI Pk Vern: 4.23 AI [place]: 3.75 LVOT LVOT Pk Vern: 1.72 LVOT Mn Vern: 1.01 LVOT VTI: 0.37 LVOT Pk Grad: 12.00 LVOT Mn Grad: 5.00 LVOT Diam: 2.00 LVOT Area: 3.14 Diastolic Function MV Pk E: 2.04 MV Pk A: 0.68 E/A: 3.00 E'Medial: 7.18 E/E' Med: 28.40 E' Laterial: 10.10 E/E' Lat: 20.20 Right Ventricle TAPSE (mm): 17.50 TVS' Vern: 9.03 Tricuspid Valve TV Pk Vern: 1.59 TV Mn Vern: 0.70 TV Pk Grad: 10.00 TV Mn Grad: 3.00 TR Pk Vern: 3.41 TR Pk Grad: 47.00 RA Press: 15.00 RVSP: 62.00 Great Vessels Aorta Sinus of Valsalva: 3.67 2.0-3.[address] [place]: 2.59 1.7-3.4 cm Ao Asc: 3.80 2.1-3.4 cm Updated in Other Vendor System with Status of Final Santi Perry MD electronically signed on 08/27/2022 5:20:35 PM with status of Final
--- NOTE | 2022-08-27 10:29 | P.CONCC_ITS ---
History of Present Illness Data of Consult Service Date: 08/27/22 Requesting physician: Angela Kirkland Primary Care Provider: MD KASSI Pastor Reason for consult: Hypoxemic respiratory failure 66-year-old female status post mechanical mitral valve replacement with paroxysmal atrial fibrillation on amiodarone and warfarin anticoagulation and maintenance furosemide at 20 mg daily presented a month ago in [place] with shortness of breath admitted and placed on Augmentin and she has been on Augmentin for 1 month and continue the amiodarone and complained of shortness of breath here presenting with oxygen saturation on room air of 70% and has been on nasal cannula with remission of symptoms for the time being and also status post IV diuresis both leading to subjective improvement afebrile but sed rate of 109 and markedly elevated CRP and LDH but in sinus rhythm with diffuse nonspecific ST-T changes bedside echo showing good mechanical mitral valve prosthetic function aortic valve sclerotic but not significantly stenotic and she has got a good ejection fraction in excess of 60% without segmental wall motion abnormality but mild right ventricular prominence and a borderline size to the inferior vena cava with a lack of a greater than 50% inspiratory response so I a with surmised that there probably is a degree of chronic pulmonary hypertension and cor pulmonale but she has never seen peripheral edema she has not had a skin rash issue and she has not had constitutional complaints the no sweats weight loss appetite loss etc. never had fever or shaking chills or productive cough and she certainly never had hemoptysis Review of Systems Review of Systems: Yes all other systems are reviewed and are negative PMFSH Past Medical History Medical History (Updated 08/27/22 @ 10:39 by Gabriela Nieto MD) (HFpEF) heart failure with preserved ejection fraction Aortic stenosis Atrial flutter COPD (chronic obstructive pulmonary disease) Exercise hypoxemia Interstitial lung disease Obesity Paroxysmal atrial fibrillation Paroxysmal atrial fibrillation Family History Family History Father No problems noted. Mother CVD (cardiovascular disease) Surgical History Surgical History History of sleeve gastrectomy (~2017) Hx of section Hx of mitral valve replacement (~2004) Hx of transesophageal echocardiography (SHELIA) for monitoring (~2015) S/P MVR (mitral valve replacement) Social History Social History Household Members: Family Housing: House Do you presently have visiting nurse or other home services: No Alcohol intake: never Patient Tobacco Use Status: Former Tobacco user Tobacco use type: Cigarette Advance Directives: Yes Advance Directives Information Provided: No Advance Directives on File: No Advance Directives Date on File: 04/27/21 service: No Current occupational status: disabled Meds Allergies Allergy/AdvReac Type Severity Reaction Status Date / Time PAPER TAPE Allergy Mild REDNESS, Uncoded 08/24/22 08:31 RASH Active Medications: Current Medications Pharmacy Consult (Consult Rx Perform Med Rec) 1 each MISCELLANE ONCE PRN PRN Reason: Consult order Home Medications Medication Instructions Recorded Confirmed Last Taken Type furosemide 20 mg tablet (Lasix) 20 mg PO DAILY@1700 09/01/20 08/27/22 07/20/22 History levothyroxine 25 mcg tablet 25 mcg PO DAILY 09/01/20 08/27/22 07/21/22 History lisinopril 5 mg tablet 5 mg PO DAILY 09/01/20 08/27/22 07/21/22 History albuterol sulfate 90 mcg/actuation 2 puff inhalation Q4-6H PRN 04/26/21 08/27/22 07/21/22 History aerosol inhaler (ProAir HFA) Respiratory Distress atorvastatin 20 mg tablet 20 mg PO DAILY 04/26/21 08/27/22 07/21/22 History ferrous sulfate 325 mg (65 mg 325 mg PO TID 04/26/21 08/27/22 07/21/22 History iron) tablet sertraline 100 mg tablet 200 mg PO DAILY 04/26/21 08/27/22 07/21/22 History fluticasone fur. 200 mcg-umeclid 1 inh inhalation Q24H 07/21/22 08/27/22 07/21/22 History 62.5 mcg-vilant 25 mcg inhalat.powder (Trelegy Ellipta) warfarin 2.5 mg tablet See Protocol PO DAILY 07/21/22 08/24/22 07/20/22 History warfarin 2.5 mg tablet 5 mg PO DAILY 08/26/22 08/27/22 Unknown History Physical Exam Vital Signs: Vital Signs: Last Vital Signs Temp 97.6 F 08/27/22 07:16 Pulse 48 L 08/27/22 07:16 Resp 16 08/27/22 07:16 BP 105/34 L 08/27/22 07:16 Pulse Ox 98 08/27/22 07:16 O2 Del Method 08/27/22 07:16 O2 Flow Rate 4 08/27/22 07:16 BMI result Body Mass Index 26.9 she is awake alert nonfocal and oriented no acute distress O2 sat greater than 90% on nasal cannula no wheezes and no accessory muscle use no diaphragmatic effort bedside echo showing normal preserved LV systolic reserve with no segmental wall motion abnormality and a well-functioning mitral valve prosthesis mild prominence to right ventricle and IVC with lack of inspiratory response abdomen benign no organomegaly periphery warm well perfused no edema no acrocyanosis Results Labs CBC & Chem 7: 08/27/22 06:15 08/27/22 06:15 Labs: Short CBC 08/26/22 08/27/22 Range/Units 17:29 06:15 WBC 7.3 5.9 (4.8-10.8) X10*3/uL Hgb 8.8 L 8.6 L (12.0-16.0) g/dl Hct 28.7 L 27.9 L (37.0-47.0) % Plt Count 176 184 (160-400) X10*3/uL BMP 08/26/22 08/27/22 17:29 06:15 Sodium 136 140 Potassium 3.8 4.0 Chloride 102 105 Carbon Dioxide 24 21 L BUN 23 H 29 H Creatinine 0.94 0.95 Calcium 8.7 8.7 Liver Function 08/26/22 08/27/22 Range/Units 17:29 06:15 Total Bilirubin 0.8 0.6 (0.0-1.0) mg/dL AST 24 D 26 (5-31) U/L ALT 10 11 (0-31) U/L Alkaline Phosphatase 87 82 (39-117) U/L Albumin 3.6 3.5 (3.5-5.0) g/dL Assessment and Plan (1) Hypoxia: Status: Acute (2) Exercise hypoxemia: Status: Acute (3) Interstitial lung disease: Status: Acute (4) Anemia: Status: Chronic (5) Paroxysmal atrial fibrillation: Status: Acute (6) S/P MVR (mitral valve replacement): Status: Acute (7) (HFpEF) heart failure with preserved ejection fraction: Status: Acute (8) Aortic stenosis: Status: Acute (9) COPD (chronic obstructive pulmonary disease): Status: Acute (10) Obesity: Status: Acute (11) Current use of anticoagulant therapy: Status: Acute (12) Pneumonitis: Status: Acute Plan so overall she has a mechanical mitral valve which is well-functioning with preserved LV function but there is always an element about the left ventricle which diminishes systolic reserve based on the simple detachment of the papillary muscles with mitral valve replacement so I am sure at the very least it is providing a component of diastolic dysfunction and at least needs to be on a maintenance diuretic regimen possibly to include combination of loop diuretic and spironolactone the amiodarone definitely needs to be discontinued but will take at least a month for tissue levels especially lung to diminish and at least 2-2 and half weeks has to pass before you could introduce a different anti arrhythmic and I would probably choose something from the class 1 C such as rhythmol so as to av oid superimposing 2 drugs and potentially causing torsade I would probably start prednisone at a minimum of 40 mg and it is purely empiric and the maintain the high doses for a 2 week period and then very slow taper to 0 and from the hospitalization standpoint if she looks comfortable just simply need to arrange for home oxygen
--- NOTE | 2022-08-27 11:57 | PM.IMHP ---
History of Present Illness Date of Service: 08/27/22 Chief Complaint: SOB 66-year-old woman presented to the complaints of shortness of breath with and without exertion. She reports it has been ongoing at least over the last month. She had been and mary on and was started on antibiotic for this presuming respiratory illness. She reports that she went to see her childcare attendant recently and was told that she may have pulmonary toxicity from the amiodarone she takes for her atrial fibrillation. She reports that she had previously been on it for many years but was taken off and then more recently placed on it for cardioversion. She had been placed on a higher doses she reports and had continued to take it. She has a history of mechanical mitral valve replacement will with paroxysmal atrial fibrillation. In the ER she presented with oxygen saturation of 70%. She was placed on nasal cannula and given a dose of IV Lasix which did improve her symptoms. Initially she was quite hypotensive with low maps and there was concern that she would require pressors however she was diuresed and put out a L of fluid and was also seen by the sales assistant entertainment and media. He performed an echocardiogram and reported a good ejection fraction of 60% with normal IVC and mitral valve disease. She appears to have likely some component of chronic pulmonary hypertension secondary to the mitral valve disease. At this time her blood pressures have remained stable in the high 90s low 100s. CRP 18.56, LDH 366, BNP 164. Patient was given a total of 80 mg of IV Lasix, IV magnesium and Decadron. 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 Review of Systems Review of Systems: Denies any recent fever chills or decrease in appetite respiratory See HPI cardiovascular denies chest pain gastrointestinal denies any dysphagia abdominal pain nausea vomiting or diarrhea genitourinary denies any dysuria frequency or hematuria musculoskeletal denies any joint pain or swelling neuropsych denies any weakness or seizures all other systems reviewed are negative [facility] Medical History (Updated 08/27/22 @ 14:44 by Angela Kirkland NP) (HFpEF) heart failure with preserved ejection fraction Aortic stenosis Atrial flutter COPD (chronic obstructive pulmonary disease) Exercise hypoxemia Interstitial lung disease Obesity Paroxysmal atrial fibrillation Family History Father No problems noted. Mother CVD (cardiovascular disease) Surgical History History of sleeve gastrectomy (~2017) Hx of section Hx of mitral valve replacement (~2004) Hx of transesophageal echocardiography (SHELIA) for monitoring (~2015) S/P MVR (mitral valve replacement) Social History Household Members: Family Housing: House Do you presently have visiting nurse or other home services: No Alcohol intake: never Patient Tobacco Use Status: Former Tobacco user Tobacco use type: Cigarette Advance Directives: Yes Advance Directives Information Provided: No Advance Directives on File: No Advance Directives Date on File: 04/27/21 service: No Current occupational status: disabled Meds Allergies Allergy/AdvReac Type Severity Reaction Status Date / Time PAPER TAPE Allergy Mild REDNESS, Uncoded 08/24/22 08:31 RASH Active Medications: Current Medications Pharmacy Consult (Consult Rx Perform Med Rec) 1 each MISCELLANE ONCE PRN PRN Reason: Consult order Home Medications Medication Instructions Recorded Confirmed Last Taken Type furosemide 20 mg tablet (Lasix) 20 mg PO DAILY@1700 09/01/20 08/27/22 07/20/22 History levothyroxine 25 mcg tablet 25 mcg PO DAILY 09/01/20 08/27/22 07/21/22 History lisinopril 5 mg tablet 5 mg PO DAILY 09/01/20 08/27/22 07/21/22 History albuterol sulfate 90 mcg/actuation 2 puff inhalation Q4-6H PRN 04/26/21 08/27/22 07/21/22 History aerosol inhaler (ProAir HFA) Respiratory Distress atorvastatin 20 mg tablet 20 mg PO DAILY 04/26/21 08/27/22 07/21/22 History ferrous sulfate 325 mg (65 mg 325 mg PO TID 04/26/21 08/27/22 07/21/22 History iron) tablet sertraline 100 mg tablet 200 mg PO DAILY 04/26/21 08/27/22 07/21/22 History fluticasone fur. 200 mcg-umeclid 1 inh inhalation Q24H 07/21/22 08/27/22 07/21/22 History 62.5 mcg-vilant 25 mcg inhalat.powder (Trelegy Ellipta) warfarin 2.5 mg tablet See Protocol PO DAILY 07/21/22 08/24/22 07/20/22 History warfarin 2.5 mg tablet 5 mg PO DAILY 08/26/22 08/27/22 Unknown History Physical Exam Vital Signs and Narrative: Vital Signs: Last Vital Signs Temp 97.7 F 08/27/22 11:17 Pulse 53 08/27/22 11:17 Resp 12 08/27/22 11:17 BP 99/39 L 08/27/22 11:17 Pulse Ox 95 08/27/22 11:17 O2 Del Method 08/27/22 11:17 O2 Flow Rate 4 08/27/22 11:17 BMI result Body Mass Index 26.9 Appearing in no acute distress head is normocephalic atraumatic eyes pupils are PERRLA sclera is anicteric mouth throat mucous membranes are intact and moist neck is supple no lymphadenopathy, no JVD noted lung sounds are clear to auscultation heart regular rate rhythm, clear S1, S2 positive bowel sounds, abdomen is soft, nontender neuro patient is alert x3, no focal deficits Results Labs CBC and Chem 7: 08/27/22 06:15 08/27/22 06:15 Labs: Laboratory Results - last 24 hr 08/26/22 08/26/22 08/26/22 17:29 17:29 17:29 MCV 90.3 MCH 27.7 MCHC 30.7 L RDW 16.6 H Plt Count 176 MPV 11.3 Immature Gran % (Auto) 0.5 H Neut % (Auto) 87.5 H Lymph % (Auto) 4.6 L Sharkey % (Auto) 6.6 Eos % (Auto) 0.7 Baso % (Auto) 0.1 Lymph # (Auto) 0.3 L Sharkey # (Auto) 0.5 Eos # (Auto) 0.1 Baso # (Auto) 0.0 Abs Immat Gran (auto) 0.04 H Absolute Neuts (auto) 6.4 Absolute Nucleated RBC 0.000 Nucleated RBC % (auto) 0.0 ESR PT INR APTT VBG pH VBG pCO2 VBG pO2 VBG HCO3 VBG O2 Saturation VBG Base Excess Anion Gap 14 Estim Creat Clear Calc 53.5 Estimated GFR 60 Random Glucose 96 Lactic Acid 1.0 Calcium 8.7 Magnesium 2.1 Total Bilirubin 0.8 AST 24 D ALT 10 Alkaline Phosphatase 87 Lactate Dehydrogenase 366 H C-Reactive Protein 18.56 H B-Natriuretic Peptide Total Protein 7.2 Albumin 3.6 Respiratory Panel [place] Adenovirus (Rapid PCR) B.pert (TEM-PCR) B.parapertussis DNA PCR C. pneumoniae DNA (PCR) Coronavirus OC43 (PCR) Coronavirus HKU1 (PCR) Coronavirus 229E (PCR) Coronavirus NL63 (PCR) Human Metapneumovir PCR Influenza A (RT-PCR) Influenza Type A (PCR) Influenza B (RT-PCR) Influenza Type B (PCR) M. pneumoniae (PCR) Parainfluenza 1 (PCR) Parainfluenza 2 (PCR) Parainfluenza 3 (PCR) Parainfluenza 4 (PCR) RSV (PCR) RSV RNA Qual (PCR) Entero/Rhino (PCR) SARS-CoV-2 RNA (RT-PCR) 08/26/22 08/26/22 08/26/22 17:29 17:29 17:36 MCV MCH MCHC RDW Plt Count MPV Immature Gran % (Auto) Neut % (Auto) Lymph % (Auto) Sharkey % (Auto) Eos % (Auto) Baso % (Auto) Lymph # (Auto) Sharkey # (Auto) Eos # (Auto) Baso # (Auto) Abs Immat Gran (auto) Absolute Neuts (auto) Absolute Nucleated RBC Nucleated RBC % (auto) ESR PT INR APTT VBG pH 7.42 VBG pCO2 34 VBG pO2 45 VBG HCO3 22 VBG O2 Saturation 69.0 VBG Base Excess -1.2 Anion Gap Estim Creat Clear Calc Estimated GFR Random Glucose Lactic Acid Calcium Magnesium Total Bilirubin AST ALT Alkaline Phosphatase Lactate Dehydrogenase C-Reactive Protein B-Natriuretic Peptide 164 H Total Protein Albumin Respiratory Panel [place] Adenovirus (Rapid PCR) B.pert (TEM-PCR) B.parapertussis DNA PCR C. pneumoniae DNA (PCR) Coronavirus OC43 (PCR) Coronavirus HKU1 (PCR) Coronavirus 229E (PCR) Coronavirus NL63 (PCR) Human Metapneumovir PCR Influenza A (RT-PCR) Influenza Type A (PCR) NEGATIVE Influenza B (RT-PCR) Influenza Type B (PCR) NEGATIVE M. pneumoniae (PCR) Parainfluenza 1 (PCR) Parainfluenza 2 (PCR) Parainfluenza 3 (PCR) Parainfluenza 4 (PCR) RSV (PCR) RSV RNA Qual (PCR) NEGATIVE Entero/Rhino (PCR) SARS-CoV-2 RNA (RT-PCR) NEGATIVE 08/26/22 08/26/22 08/27/22 17:49 20:58 06:15 MCV 89.1 MCH 27.5 MCHC 30.8 L RDW 16.5 H Plt Count 184 MPV 11.8 Immature Gran % (Auto) 0.5 H Neut % (Auto) 87.2 H Lymph % (Auto) 6.3 L Sharkey % (Auto) 5.8 Eos % (Auto) 0.0 Baso % (Auto) 0.2 Lymph # (Auto) 0.4 L Sharkey # (Auto) 0.3 Eos # (Auto) 0.0 Baso # (Auto) 0.0 Abs Immat Gran (auto) 0.03 Absolute Neuts (auto) 5.1 Absolute Nucleated RBC 0.000 Nucleated RBC % (auto) 0.0 ESR PT 48.1 H INR 4.0 H D APTT 45.4 H VBG pH VBG pCO2 VBG pO2 VBG HCO3 VBG O2 Saturation VBG Base Excess Anion Gap Estim Creat Clear Calc Estimated GFR Random Glucose Lactic Acid Calcium Magnesium Total Bilirubin AST ALT Alkaline Phosphatase Lactate Dehydrogenase C-Reactive Protein B-Natriuretic Peptide Total Protein Albumin Respiratory Panel [place] Cancelled Adenovirus (Rapid PCR) Cancelled B.pert (TEM-PCR) Cancelled B.parapertussis DNA PCR Cancelled C. pneumoniae DNA (PCR) Cancelled Coronavirus OC43 (PCR) Cancelled Coronavirus HKU1 (PCR) Cancelled Coronavirus 229E (PCR) Cancelled Coronavirus NL63 (PCR) Cancelled Human Metapneumovir PCR Cancelled Influenza A (RT-PCR) Cancelled Influenza Type A (PCR) Influenza B (RT-PCR) Cancelled Influenza Type B (PCR) M. pneumoniae (PCR) Cancelled Parainfluenza 1 (PCR) Cancelled Parainfluenza 2 (PCR) Cancelled Parainfluenza 3 (PCR) Cancelled Parainfluenza 4 (PCR) Cancelled RSV (PCR) Cancelled RSV RNA Qual (PCR) Entero/Rhino (PCR) Cancelled SARS-CoV-2 RNA (RT-PCR) Cancelled 08/27/22 08/27/22 06:15 06:15 MCV MCH MCHC RDW Plt Count MPV Immature Gran % (Auto) Neut % (Auto) Lymph % (Auto) Sharkey % (Auto) Eos % (Auto) Baso % (Auto) Lymph # (Auto) Sharkey # (Auto) Eos # (Auto) Baso # (Auto) Abs Immat Gran (auto) Absolute Neuts (auto) Absolute Nucleated RBC Nucleated RBC % (auto) ESR 109 H PT INR APTT VBG pH VBG pCO2 VBG pO2 VBG HCO3 VBG O2 Saturation VBG Base Excess Anion Gap 18 Estim Creat Clear Calc 52.9 Estimated GFR 59 Random Glucose 132 H Lactic Acid Calcium 8.7 Magnesium Total Bilirubin 0.6 AST 26 ALT 11 Alkaline Phosphatase 82 Lactate Dehydrogenase C-Reactive Protein B-Natriuretic Peptide Total Protein 7.1 Albumin 3.5 Respiratory Panel [place] Adenovirus (Rapid PCR) B.pert (TEM-PCR) B.parapertussis DNA PCR C. pneumoniae DNA (PCR) Coronavirus OC43 (PCR) Coronavirus HKU1 (PCR) Coronavirus 229E (PCR) Coronavirus NL63 (PCR) Human Metapneumovir PCR Influenza A (RT-PCR) Influenza Type A (PCR) Influenza B (RT-PCR) Influenza Type B (PCR) M. pneumoniae (PCR) Parainfluenza 1 (PCR) Parainfluenza 2 (PCR) Parainfluenza 3 (PCR) Parainfluenza 4 (PCR) RSV (PCR) RSV RNA Qual (PCR) Entero/Rhino (PCR) SARS-CoV-2 RNA (RT-PCR) Imaging Radiologist's Impressions: Impressions Chest X-Ray 08/26/22 17:48 IMPRESSION: Worsening pulmonary edema since prior chest x-ray 08/22/2022. Small bilateral pleural effusions. Chest CT 08/27/22 08:00 IMPRESSION: * Cardiomegaly, small pleural effusions and bilateral groundglass pulmonary opacities. This has the appearance of cardiogenic pulmonary edema. * Pulmonary arteries are large, which can be a manifestation of pulmonary arterial hypertension. * Mild lymphadenopathy in the mediastinum is likely reactive in nature. * No overt findings of amiodarone toxicity. There are no hyperdense peripheral infiltrates in the lungs. Also, there is no evidence of any abnormal increased attenuation within the liver or spleen. * Incidentally noted are the lipid rich adenomas of the left adrenal gland. 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 Low Blood pressures Hold home antihypertensives. Hypothyroidism Continue levothyroxine Chronic normocytic anemia Continue iron supplementation Hyperlipidemia Continue statin Mental health Continue home medications DVT prophylaxis with Lovenox Attending Dr. Alonso Full code Patient was likely require 2 midnights for treatment amiodarone toxicity and acute congestive heart failure. Quality Stroke Does the patient have a stroke diagnosis?: No VTE Prior VTE?: No VTE Risk Level:: Medical - moderate - high VTE Device Contraindication: Treatment Not Indicated VTE Drug Contraindication: N/A - Med Ordered
[2022-08-27 16:52] LABS: Prothrombin Time 63.3 SEC (10.0-13.1)
[2022-08-27 16:55] LABS: INTERNATIONAL NORM RATIO 5.1 (0.9-1.1)
[2022-08-27] MEDS: predniSONE 20 MG TABLET 40 MG PO (19:44)
[2022-08-27] MEDS: Ferrous Sulfate 324 MG TABLET.DR PO (19:45)
[2022-08-27] MEDS: Furosemide 20 MG/2 ML VIAL IVPUSH (19:45)
--- NOTE | 2022-08-27 20:29 | PC.NURSE ---
ASSUMED CARE OF PATIENT AT 2030 ,PT GOT MOVED INTO HOSPITAL BED ,SHASHI CARE GIVEN NEW PUREWICK IN PLACE ,PT WATCHING TELEVISION .
[2022-08-28] VITALS: BP 106/57; PULSE 61; RESP 18; TEMP 36.6; O2SAT 94; BMI 30.8
[2022-08-28] MEDS: 0.9 % Sodium Chloride Flush 3 ML SYRINGE IVFLUSH ×2 (00:03→08:24)
[2022-08-28 03:32] VITALS: BP 95/50; PULSE 60; RESP 18; TEMP 36.5; O2SAT 94
[2022-08-28] MEDS: Levothyroxine Sodium 25 MCG TABLET PO (05:20)
[2022-08-28 06:29] LABS: Basophils Percent Auto 0.1 % (0-2); Hematocrit 25.7 % (37.0-47.0); Hemoglobin 7.8 g/dl (12.0-16.0); Imm Gran Abs Auto 0.03 X10*3/uL (0.00-0.03); Imm Gran Pct Auto 0.4 % (0.0-0.4); Lymphocytes Absolute Auto 0.3 X10*3/uL (1.2-4.9); Lymphocytes Percent Auto 4.3 % (20-40); MANUAL DIFF FLAG SCAN; Mean Corpuscular HGB Conc 30.4 g/dl (31.0-35.0); Mean Corpuscular Hemoglobin 27.2 pg (27.0-33.0); Mean Corpuscular Volume 89.5 fL (80.0-98.0); Mean Platelet Volume 11.8 fL (9.4-12.3); Monocytes Absolute Auto 0.3 X10*3/uL (0.1-1.2); Monocytes Percent Auto 3.8 % (2-11); Neutrophils Absolute Auto 6.6 x10*3/uL (2.0-8.3); Neutrophils Percent Auto 91.4 % (45-73); Platelet Count 199 X10*3/uL (160-400); Red Blood Count 2.87 X10*6/uL (4.20-5.50); Red Cell Distribution Width 16.7 % (11.0-16.0); SCAN SMEAR FLAG 1; White Blood Count 7.2 X10*3/uL (4.8-10.8)
[2022-08-28 06:45] LABS: Prothrombin Time 76.1 SEC (10.0-13.1)
[2022-08-28 06:55] LABS: SLIDE REVIEW VERIFIED
[2022-08-28 07:00] LABS: Anion Gap 17 (12-20); Blood Urea Nitrogen 35 mg/dL (9-16); Calcium 8.9 mg/dL (8.4-10.2); Carbon Dioxide 24 mmol/L (22-29); Chloride 105 mmol/L (96-108); Creatinine Clr Calc Pharmacy 60.3; Estimated Glomerular Filt Rate > 60; Glucose Random 140 mg/dL (60-115); Potassium 4.1 mmol/L (3.3-5.1); Sodium 142 mmol/L (135-145)
[2022-08-28 07:16] LABS: INTERNATIONAL NORM RATIO 6.1 (0.9-1.1)
[2022-08-28 07:22] VITALS: BP 110/50; PULSE 56; RESP 20; TEMP 36.4; O2SAT 95
[2022-08-28] MEDS: Furosemide 20 MG/2 ML VIAL IVPUSH (08:18)
[2022-08-28] MEDS: Ferrous Sulfate 324 MG TABLET.DR PO (08:20)
[2022-08-28] MEDS: predniSONE 20 MG TABLET 40 MG PO (08:22)
[2022-08-28] MEDS: Atorvastatin Calcium 20 MG TABLET PO (08:23)
[2022-08-28] MEDS: Sertraline HCL 100 MG TABLET 200 MG PO (08:23)
--- NOTE | 2022-08-28 09:32 | PM.PNCARD ---
Subjective Subjective Date of Service: 08/28/22 Interval history: Still short of breath but not as much as before. No chest pain. No significant leg swelling. Review of Systems Review of Systems Yes all other systems are reviewed and are negative Constitutional: Reports as per HPI Eyes: Reports as per HPI Reports as per HPI Cardiovascular: Reports as per HPI, Denies acrocyanosis, Denies cool extremities, Denies chest pain, Denies leg edema, Denies lightheadedness, Denies palpitations and Reports dyspnea Respiratory: Reports as per HPI, Reports no additional respiratory complaints and Reports dyspnea Gastrointestinal: Reports as per HPI and Reports no additional gastrointestinal complaints Genitourinary: Reports as per HPI Musculoskeletal: Reports no additional musculoskeletal complaints and Reports as per HPI Skin/Breast: Reports system reviewed and no additional complaints, except as docu Reports system reviewed and no additional complaints, except as documented and Reports as per HPI Psychiatric: Reports no additional psychiatric complaints and Reports as per HPI Endocrine: Reports no additional endocrine complaints, Reports as per HPI and Denies palpitations Hematologic/Lymphatic: Reports no additional hematologic/lymphatic complaints and Reports as per HPI Allergic/Immunologic: Reports no additional allergic/immunologic complaints and Reports as per HPI Physical Exam Vital Signs: Last Vital Signs Temp 97.5 F 08/28/22 07:22 Pulse 56 08/28/22 07:22 Resp 20 08/28/22 07:22 BP 110/50 L 08/28/22 07:22 Pulse Ox 95 08/28/22 07:22 O2 Del Method 08/28/22 07:22 O2 Flow Rate 4 08/28/22 07:22 BMI result Body Mass Index 30.8 Const General: comfortable and no acute distress Orientation/consciousness: patient oriented x3 HEENT Other: Unremarkable Head: Yes normal to inspection Neck Neck: Yes normal visual inspection Chest Chest palpation & inspection: normal inspection of the chest Resp Other: scattered inspiratory crackles Cardio Other: prosthetic heart sounds+; Palpation: normal PMI Heart sounds: S1 normal heart sound present, no gallops, Murmur heart sound present systolic III/ and no rubs GI Palpation (GI): Soft to palpation Back/Spine/Pelvis Other: unremarkable Skin General skin exam: no rashes or lesions noted Neuro General: patient oriented x3 Extrem General: Yes normal to inspection Psych Mental Status: mental status grossly normal Objective Labs and Meds Result diagrams: 08/28/22 06:01 08/28/22 06:01 Lab results: Laboratory Results - last 24 hr 08/27/22 08/28/22 08/28/22 16:07 06:01 06:01 WBC 7.2 RBC 2.87 L Hgb 7.8 L Hct 25.7 L MCV 89.5 MCH 27.2 MCHC 30.4 L RDW 16.7 H Plt Count 199 MPV 11.8 Immature Gran % (Auto) 0.4 Neut % (Auto) 91.4 H Lymph % (Auto) 4.3 L [place] % (Auto) 3.8 Eos % (Auto) 0.0 Baso % (Auto) 0.1 Lymph # (Auto) 0.3 L [place] # (Auto) 0.3 Eos # (Auto) 0.0 Baso # (Auto) 0.0 Abs Immat Gran (auto) 0.03 Absolute Neuts (auto) 6.6 Absolute Nucleated RBC 0.000 Nucleated RBC % (auto) 0.0 Smear Tech's Comments VERIFIED PT 63.3 H INR 5.1 H* Sodium 142 Potassium 4.1 Chloride 105 Carbon Dioxide 24 Anion Gap 17 BUN 35 H Creatinine 0.89 Estim Creat Clear Calc 60.3 Estimated GFR > 60 Random Glucose 140 H Calcium 8.9 08/28/22 06:01 WBC RBC Hgb Hct MCV MCH MCHC RDW Plt Count MPV Immature Gran % (Auto) Neut % (Auto) Lymph % (Auto) [place] % (Auto) Eos % (Auto) Baso % (Auto) Lymph # (Auto) [place] # (Auto) Eos # (Auto) Baso # (Auto) Abs Immat Gran (auto) Absolute Neuts (auto) Absolute Nucleated RBC Nucleated RBC % (auto) Smear Tech's Comments PT 76.1 H INR 6.1 H* Sodium Potassium Chloride Carbon Dioxide Anion Gap BUN Creatinine Estim Creat Clear Calc Estimated GFR Random Glucose Calcium Progress Note: A&P Assessment and plan (1) Acute on chronic heart failure with preserved ejection fraction (HFpEF): Status: Acute Assessment and Plan: Continue IV diuretics. Based on input output data, she has negative 200 cc. (2) Persistent atrial fibrillation: Status: Acute Assessment and Plan: Seems to be in sinus rhythm. Discussed at length with Dr. Kirkland. There is a concern for amiodarone toxicity but she has not taken this for too long. However, because she is also requiring oxygen, the recommendation is to hold off on it at this time. Hence if she indeed needs an antiarrhythmic in the future will need to decide risk/benefit regarding resuming this. (3) S/P MVR (mitral valve replacement): Status: Acute Assessment and Plan: Based on echocardiogram, normal prosthetic valve function. (4) Aortic stenosis: Status: Acute Assessment and Plan: Last echocardiogram from 2020 reported to have moderate to severe aortic stenosis. In the current echocardiogram, peak gradient across aortic valve 90 mm Hg with a mean of 47 mm Hg. Calculated valve area of 0.98 sq cm. There is also moderate aortic regurgitation. Overall, this likely plays a substantial role in her symptoms. Will require workup for the same and we can plan on left/right heart catheterization and cardiac surgery consultation. Will need to decide between redo sternotomy/mechanical valve versus TAVR. Patient seems to rather prefer mechanical valve option. Plan Overall, shortness of breath could be multifactorial. She could have components of heart failure related to severe aortic stenosis and additionally ? Amiodarone toxicity. Not clear as to the extent of each. We will plan on left/right heart catheterization. Transfer to [facility]. Discussed with Dr. Kirkland from Pulmonary. Discussed with hospitalist as well. Discussed with patient in great detail. Time Spent With Patient Time: Total time spent is greater than 50% in coordination of care (as documented) at patient's floor/unit and/or counseling patient: 40 min. Progress Note: Quality Stroke Does the patient have a stroke diagnosis?: No Procedures Date of Service Date of Service: 08/28/22
--- NOTE | 2022-08-28 09:49 | MHC.CM.PN ---
pt has kandice cordova pt will be dcd to [facility] for cardiac cath when bed avlaible
--- NOTE | 2022-08-28 10:57 | P.DS_ITS ---
DS: Providers Provider Date of Service: 08/28/22 Date of admission: 08/27/22 11:55 Primary care physician: Daniela Chopra MD Consults: 08/27/22 07:37 Consult to Cardiology Stat Consulting Provider: Santi Perry Reason for consultation: CHF, low blood pressure, diuresed in the ED Has provider been notified: Yes 08/27/22 11:55 Consult to Pulmonology Routine Consulting Provider: Daren Kirkland Reason for consultation: amio tox Has provider been notified: No Attending physician on discharge: Renny Butterfield Discharging clinician: Angela Kirkland DS: Diagnosis Discharge Diagnosis (1) Acute on chronic heart failure with preserved ejection fraction (HFpEF): Status: Acute (2) Persistent atrial fibrillation: Status: Acute (3) S/P MVR (mitral valve replacement): Status: Acute (4) Aortic stenosis: Status: Acute DS: Summary Hospital Course Hospital Course: 66-year-old woman presented to the complaints of shortness of breath with and without exertion.? She reports it has been ongoing at least over the last month.? She had been and mary on and was started on antibiotic for this presuming respiratory illness.? She reports that she went to see her partition assembly machine operator recently and was told that she may have pulmonary toxicity from the amiodarone she takes for her atrial fibrillation.? She reports that she had previously been on it for many years but was taken off and then more recently placed on it for cardioversion.? She had been placed on a higher doses she reports and had continued to take it.? She has a history of mechanical mitral valve replacement will with paroxysmal atrial fibrillation.? In the ER she presented with oxygen saturation of 70%.? She was placed on nasal cannula and given a dose of IV Lasix which did improve her symptoms.? Initially she was quite hypotensive with low maps and there was concern that she would require pressors however she was diuresed and put out a L of fluid and was also seen by the obstetrics nurse.? He performed an echocardiogram and reported a good ejection fraction of 60% with normal IVC and mitral valve disease.? She appears to have likely some component of chronic pulmonary hypertension secondary to the mitral valve disease.? At this time her blood pressures have remained stable in the high 90s low 100s.? CRP 18.56, LDH 366, BNP 164.? Patient was given a total of 80 mg of IV Lasix, IV magnesium and Decadron.? Will be admitted for further man agement and treatment of acute congestive heart failure and possible amiodarone lung toxicity. 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 Daren Kirkland, it seems likely the case to be pneumonitis, amiodarone has been stopped, prednisone 40 mg daily has been started, patient should follow up with pulmonology at [facility] for further recommendations in terms of steroid taper Acute congestive heart failure with preserved ejection fraction and severe aortic valve stenosis with peak gradient of 90 mmHG, mean gradient 47, aortic valve area 0.98 cm2, unspecified Continue Lasix 20 mg b.i.d. Plan for aortic valve PAF Stable continue warfarin PT/INR daily Hypertension. initially hypotensive and remains with Low Blood pressures Hold home antihypertensives. Hypothyroidism Continue levothyroxine Chronic normocytic anemia Continue iron supplementation Hyperlipidemia Continue statin Mental health Continue home medications Time Spent with Patient Time attestation: Total time spent providing and/or coordinating discharge services: Discharge coordination time: Greater than 30 minutes Quality: Safe Use of Opioids Does Pt have an Active Cancer Diagnosis on the Problem List?: No Quality: Stroke Does the patient have a stroke diagnosis?: No Physical Exam Vital Signs: Vital Signs: Last Vital Signs Temp 97.5 F 08/28/22 07:22 Pulse 56 08/28/22 07:22 Resp 20 08/28/22 07:22 BP 110/50 L 08/28/22 07:22 Pulse Ox 95 08/28/22 07:22 O2 Del Method 08/28/22 07:22 O2 Flow Rate 4 08/28/22 07:22 BMI result Body Mass Index 30.8 Appearing in no acute distress head is normocephalic atraumatic eyes pupils are PERRLA sclera is anicteric mouth throat mucous membranes are intact and moist neck is supple no lymphadenopathy, no JVD noted lung sounds are clear to auscultation heart regular rate rhythm, clear S1, S2 positive bowel sounds, abdomen is soft, nontender neuro patient is alert x3, no focal deficits DS: Data Data Completed and Pending Labs on day of discharge: Laboratory Results - last 24 hr 08/27/22 08/28/22 08/28/22 16:07 06:01 06:01 WBC 7.2 RBC 2.87 L Hgb 7.8 L Hct 25.7 L MCV 89.5 MCH 27.2 MCHC 30.4 L RDW 16.7 H Plt Count 199 MPV 11.8 Immature Gran % (Auto) 0.4 Neut % (Auto) 91.4 H Lymph % (Auto) 4.3 L [place] % (Auto) 3.8 Eos % (Auto) 0.0 Baso % (Auto) 0.1 Lymph # (Auto) 0.3 L [place] # (Auto) 0.3 Eos # (Auto) 0.0 Baso # (Auto) 0.0 Abs Immat Gran (auto) 0.03 Absolute Neuts (auto) 6.6 Absolute Nucleated RBC 0.000 Nucleated RBC % (auto) 0.0 Smear Tech's Comments VERIFIED PT 63.3 H INR 5.1 H* Sodium 142 Potassium 4.1 Chloride 105 Carbon Dioxide 24 Anion Gap 17 BUN 35 H Creatinine 0.89 Estim Creat Clear Calc 60.3 Estimated GFR > 60 Random Glucose 140 H Calcium 8.9 08/28/22 06:01 WBC RBC Hgb Hct MCV MCH MCHC RDW Plt Count MPV Immature Gran % (Auto) Neut % (Auto) Lymph % (Auto) [place] % (Auto) Eos % (Auto) Baso % (Auto) Lymph # (Auto) [place] # (Auto) Eos # (Auto) Baso # (Auto) Abs Immat Gran (auto) Absolute Neuts (auto) Absolute Nucleated RBC Nucleated RBC % (auto) Smear Tech's Comments PT 76.1 H INR 6.1 H* Sodium Potassium Chloride Carbon Dioxide Anion Gap BUN Creatinine Estim Creat Clear Calc Estimated GFR Random Glucose Calcium Preliminary micro results at discharge 08/26/22 20:57 Blood Culture - Preliminary Blood - Venous No growth after 24 hours. 08/26/22 17:29 Blood Culture - Preliminary Blood - Venous No growth after 24 hours. Discharge Plan Discharge Anticipated Discharge Date/Time: 08/28/22 11:41 Patient Disposition: Xfer Acute Care Hospital Discharge Diagnosis: Possible hypersensitivity pneumonitis secondary to amiodarone Acute congestive heart failure Aortic valve stenosis Referrals: [facility] [Other] - 1 Week Daniela Chopra MD [Primary Care Provider] - 1 Week Discharge Medications: New prednisone 20 mg Tablet 40 mg PO DAILY Qty: 30 0RF Continued sertraline 100 mg Tablet 200 mg PO DAILY atorvastatin 20 mg Tablet 20 mg PO DAILY ferrous sulfate 325 mg (65 mg iron) Tablet 325 mg PO TID albuterol sulfate [ProAir HFA] 90 mcg/actuation Hfa Aerosol Inhaler 2 puff INHALATION Q4-6H PRN (Reason: Respiratory Distress) warfarin 2.5 mg tablet 5 mg PO DAILY Trelegy Ellipta 200-62.5-25 mcg Blister With Device 1 inh INHALATION Q24H warfarin 2.5 mg tablet See Protocol PO DAILY Protocol: Dose Management Condition: Saturday (Week One) Dose/Route: 5 mg Instruction: 2 x 2.5 mg tablets Condition: Saturday Dose/Route: 5 mg Instruction: 2 x 2.5 mg tablets Condition: Saturday Dose/Route: 5 mg Instruction: 2 x 2.5 mg tablets Condition: Saturday Dose/Route: 5 mg Instruction: 2 x 2.5 mg tablets Condition: Dose/Route: 5 mg Instruction: 2 x 2.5 mg tablets Condition: Saturday Dose/Route: 5 mg Instruction: 2 x 2.5 mg tablets Condition: Saturday Dose/Route: 5 mg Instruction: 2 x 2.5 mg tablets Condition: Saturday (Week Two) Dose/Route: 5 mg Instruction: 2 x 2.5 mg tablets Condition: Saturday Dose/Route: 5 mg Instruction: 2 x 2.5 mg tablets Condition: Saturday Dose/Route: 5 mg Instruction: 2 x 2.5 mg tablets Condition: Saturday Dose/Route: 5 mg Instruction: 2 x 2.5 mg tablets Condition: Dose/Route: 5 mg Instruction: 2 x 2.5 mg tablets Condition: Saturday Dose/Route: 5 mg Instruction: 2 x 2.5 mg tablets Condition: Saturday Dose/Route: 5 mg Instruction: 2 x 2.5 mg tablets Protocol Text: Adjustment Start Date: Saturday08/24/22 INR Value: 3.0 INR Date: 08/24/22 Recheck Date: 08/29/22 lisinopril 5 mg tablet 5 mg PO DAILY Hold Instructions: Doctor's Order, until you see your primary care levothyroxine 25 mcg tablet 25 mcg PO DAILY furosemide [Lasix] 20 mg tablet 20 mg PO DAILY@1700 Discontinued amiodarone 200 mg tablet 200 mg PO DAILY Qty: 90 3RF Diet: Advance to usual diet Activity on Discharge: As tolerated Stand Alone Forms: Patient Portal Discharge page Care Plan Goals: treatment at tertiary facility Health Concerns: Possible hypersensitivity pneumonitis secondary to amiodarone Acute congestive heart failure Aortic valve stenosis Plan of Treatment: Transfer to [facility] for cardiac catheterization, aortic valve assessment Started on prednisone 40 mg daily for presumed hypersensitivity pneumonitis secondary to amiodarone toxicity. Patient should follow-up with pulmonology at [facility] for further recommendation of steroid taper Amiodarone has been stopped. Assessment: see discharge summary
[2022-08-28 11:34] VITALS: BP 116/53; PULSE 58; RESP 20; TEMP 36.4; O2SAT 95
--- NOTE | 2022-08-28 11:59 | PM.CNPUL ---
History of Present Illness History of Present Illness Consult date: 08/28/22 Chief complaint: hypoxia, hypotension Narrative: This is an inpatient pulmonary consultation for the patient is a 66-year-old woman with COPD and also atrial fibrillation in addition to in addition to aortic stenosis. She was evaluated over the summer because of worsening atrial fibrillation with rapid ventricular response. At that point she was loaded with amiodarone the end of May. She has been noticing worsening respiratory symptoms. She does have a diagnosis of COPD and had been on Trelegy. She was evaluated by Pulmonary the end of 02 August here and she was noted to be hypoxic requiring oxygen. The patient states that her respiratory symptoms have gotten worse. Ultimately the patient was brought to the ER for further worsening respiratory status. She was found to be significantly hypoxic down to 70%. She was placed on high-flow. She had an x-ray that was abnormal and then followed up with a CT scan of the chest. It appeared that she had some areas of crazy paving with ground-glass opacities bilaterally primarily in the upper lung zones. The patient was given diuretics and also placed on steroids. She was able to be weaned down to 4 L. She is feeling a little better. In view of the recent initiation of the amiodarone is felt that the patient should come off as long as her atrial fibrillation stays controlled. If the patient has any worsening respiratory symptoms baby initially that it has to be readdressed. In the meantime the evaluation for connective tissue conditions will be started. The patient also had a decreasing hemoglobin. She denies any coughing up blood although her INR was elevated to 6. Indeed plan diffuse alveolar hemorrhage is also in differential although she did not cough up any blood. In view of her severe aortic stenosis on her echocardiogram it was deemed that the patient has to be transferred over to [facility] for further cardiac evaluation and treatment. She was switched down to 40 mg of prednisone which seems to be doing okay and she will be off the amiodarone for now. A Review of Systems Review of Systems: Yes all other systems are reviewed and are negative Constitutional: Constitutional: Reports as per HPI Eyes: Eyes: Reports as per HPI ENT: Reports as per HPI Cardiovascular: Cardiovascular: Reports as per HPI, Denies acrocyanosis, Denies cool extremities, Denies chest pain, Denies leg edema, Denies lightheadedness, Denies palpitations and Reports dyspnea Respiratory: Respiratory: Reports as per HPI, Reports no additional respiratory complaints and Reports dyspnea Gastrointestinal: Gastrointestinal: Reports as per HPI and Reports no additional gastrointestinal complaints Genitourinary: Genitourinary: Reports as per HPI Musculoskeletal: Musculoskeletal: Reports no additional musculoskeletal complaints and Reports as per HPI Integumentary/Breasts: Skin/Breast: Reports system reviewed and no additional complaints, except as docu Neurologic: Reports system reviewed and no additional complaints, except as documented and Reports as per HPI Psychiatric: Psychiatric: Reports no additional psychiatric complaints and Reports as per HPI Endocrine: Endocrine: Reports no additional endocrine complaints, Reports as per HPI and Denies palpitations Hematologic/Lymphatic: Hematologic/Lymphatic: Reports no additional hematologic/lymphatic complaints and Reports as per HPI Allergic/Immunologic: Allergic/Immunologic: Reports no additional allergic/immunologic complaints and Reports as per HPI PMFSH Past Medical History Medical History (Updated 08/27/22 @ 14:44 by Angela Kirkland NP) (HFpEF) heart failure with preserved ejection fraction Aortic stenosis Atrial flutter COPD (chronic obstructive pulmonary disease) Exercise hypoxemia Interstitial lung disease Obesity Paroxysmal atrial fibrillation Family History Family History Father No problems noted. Mother CVD (cardiovascular disease) Surgical History Surgical History History of sleeve gastrectomy (~2017) Hx of section Hx of mitral valve replacement (~2004) Hx of transesophageal echocardiography (SHELIA) for monitoring (~2015) S/P MVR (mitral valve replacement) Social History Social History Household Members: Family Housing: House Do you presently have visiting nurse or other home services: No Alcohol intake: never Patient Tobacco Use Status: Former Tobacco user Tobacco use type: Cigarette Advance Directives Date on File: 08/28/22 service: No Current occupational status: disabled Meds Allergies Allergy/AdvReac Type Severity Reaction Status Date / Time PAPER TAPE Allergy Mild REDNESS, Uncoded 08/24/22 08:31 RASH Active Medications: Current Medications Acetaminophen (Acetaminophen 325 Mg Tablet) 650 mg PO Q6H PRN PRN Reason: Pain, Mild (Pain Scale 1-3) Albuterol Sulfate (Albuterol Sulfate 90 Mcg 8 Gm Inhaler) 2 puff INHALE Q4H PRN PRN Reason: Respiratory Distress Atorvastatin Calcium (Atorvastatin Calcium 20 Mg Tablet) 20 mg PO DAILY [facility] Last Admin: 08/28/22 08:23 Dose: 20 mg Enoxaparin Sodium (Enoxaparin Sodium 40 Mg/0.4 Ml Syringe) 40 mg SUBCUT Q24H [facility] Last Admin: 08/27/22 13:06 Dose: Not Given Ferrous Sulfate (Ferrous Sulfate 324 Mg Tablet.Dr) 324 mg PO TID [facility] Last Admin: 08/28/22 08:20 Dose: 324 mg Fluticasone/Vilanterol (Fluticasone/Vilanterol 200/25 Blst.W.Dev) 1 puff INHALE RDAILY [facility] Last Admin: 08/28/22 07:44 Dose: Not Given Furosemide (Furosemide 20 Mg/2 Ml Vial) 20 mg IVPUSH BID@0900,1800 [facility]; Protocol Last Admin: 08/28/22 08:18 Dose: 20 mg Levothyroxine Sodium (Levothyroxine Sodium 25 Mcg Tablet) 25 mcg PO DAILY@0600 [facility] Last Admin: 08/28/22 05:20 Dose: 25 mcg Ondansetron HCl (Ondansetron Hcl 4 Mg/2 Ml Vial) 4 mg IVPUSH Q8H PRN PRN Reason: Nausea and Vomiting Pharmacy Consult (Consult Rx Perform Med Rec) 1 each MISCELLANE ONCE PRN PRN Reason: Consult order Prednisone (Prednisone 20 Mg Tablet) 40 mg PO DAILY [facility] Last Admin: 08/28/22 08:22 Dose: 40 mg Sertraline HCl (Sertraline Hcl 100 Mg Tablet) 200 mg PO DAILY [facility] Last Admin: 08/28/22 08:23 Dose: 200 mg Sodium Chloride (0.9 % Sodium Chloride Flush 3 Ml Syringe) 3 ml IVFLUSH QSHIFT [facility] Last Admin: 08/28/22 08:24 Dose: 3 ml Tiotropium [place] (Tiotropium [place] 18 Mcg Cap.W.Dev) 1 puff INHALE RDAILY [facility] Last Admin: 08/28/22 07:44 Dose: Not Given Warfarin Sodium (Warfarin Sodium 5 Mg Tablet) 5 mg PO DAILY@1800 [facility] Home Medications Medication Instructions Recorded Confirmed Last Taken Type furosemide 20 mg tablet (Lasix) 20 mg PO DAILY@1700 09/01/20 08/27/22 07/20/22 History levothyroxine 25 mcg tablet 25 mcg PO DAILY 09/01/20 08/27/22 07/21/22 History lisinopril 5 mg tablet 5 mg PO DAILY 09/01/20 08/27/22 07/21/22 History albuterol sulfate 90 mcg/actuation 2 puff inhalation Q4-6H PRN 04/26/21 08/27/22 07/21/22 History aerosol inhaler (ProAir HFA) Respiratory Distress atorvastatin 20 mg tablet 20 mg PO DAILY 04/26/21 08/27/22 07/21/22 History ferrous sulfate 325 mg (65 mg 325 mg PO TID 04/26/21 08/27/22 07/21/22 History iron) tablet sertraline 100 mg tablet 200 mg PO DAILY 04/26/21 08/27/22 07/21/22 History fluticasone fur. 200 mcg-umeclid 1 inh inhalation Q24H 07/21/22 08/27/22 07/21/22 History 62.5 mcg-vilant 25 mcg inhalat.powder (Trelegy Ellipta) warfarin 2.5 mg tablet See Protocol PO DAILY 07/21/22 08/24/22 07/20/22 History warfarin 2.5 mg tablet 5 mg PO DAILY 08/26/22 08/27/22 Unknown History Physical Exam Vital Signs: Vital Signs: Last Vital Signs Temp 97.6 F 08/28/22 11:34 Pulse 58 08/28/22 11:34 Resp 20 08/28/22 11:34 BP 116/53 L 08/28/22 11:34 Pulse Ox 95 08/28/22 11:34 O2 Del Method 08/28/22 11:34 O2 Flow Rate 4 08/28/22 11:34 BMI result Body Mass Index 30.8 Const: General: comfortable and no acute distress Orientation/consciousness: patient oriented x3 HEENT: Other: Unremarkable Head: Yes normal to inspection Neck: Neck: Yes normal visual inspection Chest: Chest palpation & inspection: normal inspection of the chest Resp: Other: scattered inspiratory crackles Auscultation: diminished lung sounds Cardio: Other: prosthetic heart sounds+; Palpation: normal PMI Heart sounds: S1 normal heart sound present, no gallops, Murmur heart sound present systolic III/ and no rubs GI: Palpation (GI): Soft to palpation Back/Spine/Pelvis: Other: unremarkable Skin: General skin exam: no rashes or lesions noted Neuro: General: patient oriented x3 Extrem: General: Yes normal to inspection Psych: Mental Status: mental status grossly normal Results Laboratory Findings CBC and BMP: 08/28/22 06:01 08/28/22 06:01 ABG, PT/INR, D-dimer: PT/INR, D-dimer PT 76.1 SEC (10.0-13.1) H 08/28/22 06:01 INR 6.1 (0.9-1.1) H* 08/28/22 06:01 Abnormal lab findings: Abnormal Labs 08/26/22 08/26/22 08/26/22 17:29 17:29 17:29 RBC 3.18 L Hgb 8.8 L Hct 28.7 L MCHC 30.7 L RDW 16.6 H Immature Gran % (Auto) 0.5 H Neut % (Auto) 87.5 H Lymph % (Auto) 4.6 L Lymph # (Auto) 0.3 L Abs Immat Gran (auto) 0.04 H ESR PT INR APTT Carbon Dioxide BUN 23 H Random Glucose Lactate Dehydrogenase 366 H C-Reactive Protein 18.56 H B-Natriuretic Peptide 164 H 08/26/22 08/27/22 08/27/22 20:58 06:15 06:15 RBC 3.13 L Hgb 8.6 L Hct 27.9 L MCHC 30.8 L RDW 16.5 H Immature Gran % (Auto) 0.5 H Neut % (Auto) 87.2 H Lymph % (Auto) 6.3 L Lymph # (Auto) 0.4 L Abs Immat Gran (auto) ESR PT 48.1 H INR 4.0 H D APTT 45.4 H Carbon Dioxide 21 L BUN 29 H Random Glucose 132 H Lactate Dehydrogenase C-Reactive Protein B-Natriuretic Peptide 08/27/22 08/27/22 08/28/22 06:15 16:07 06:01 RBC 2.87 L Hgb 7.8 L Hct 25.7 L MCHC 30.4 L RDW 16.7 H Immature Gran % (Auto) Neut % (Auto) 91.4 H Lymph % (Auto) 4.3 L Lymph # (Auto) 0.3 L Abs Immat Gran (auto) ESR 109 H PT 63.3 H INR 5.1 H* APTT Carbon Dioxide BUN Random Glucose Lactate Dehydrogenase C-Reactive Protein B-Natriuretic Peptide 08/28/22 08/28/22 06:01 06:01 RBC Hgb Hct MCHC RDW Immature Gran % (Auto) Neut % (Auto) Lymph % (Auto) Lymph # (Auto) Abs Immat Gran (auto) ESR PT 76.1 H INR 6.1 H* APTT Carbon Dioxide BUN 35 H Random Glucose 140 H Lactate Dehydrogenase C-Reactive Protein B-Natriuretic Peptide Microbiology: Microbiology 08/26/22 20:57 Blood - Venous Blood Culture - Preliminary No growth after 24 hours. 08/26/22 17:29 Blood - Venous Blood Culture - Preliminary No growth after 24 hours. Assessment and Plan (1) Pneumonitis: Status: Acute (2) COPD (chronic obstructive pulmonary disease): Status: Acute Plan The etiology for the ground-glass opacities/pneumonitis still unclear. It is dramatic and is primarily involving the upper lung zones. Amiodarone is very suspicious since she was recently loaded up with a higher dose. Again, with coagulopathy diffuse alveolar hemorrhage is also in differential. Connective tissue conditions as well as well as hypersensitive pneumonitis. Currently on prednisone seems to be responding well. I do believe that in view of the gravity of the situation the amiodarone should be on hold. Unless the patient has worsening cardiac arrhythmias that warrants the medication and the benefits outweigh the risk. Recommendations: Continue prednisone 40 mg daily. The patient should be evaluated by [facility] pulmonary once she is there in order to continue adjusting medication accordingly Blood work pending Respiratory viral pitch gatherer sputums for any hemoptysis, correcting INR Consider bronchoscopy if the condition is not improving Further recommendations based on forthcoming data Procedures Date of Service Date of Service: 08/28/22
== END 2022-08-28 12:30 | disposition short-term general hospital (02) | DRG 291 ==
LOC: HO.ED 08-27 09:24 → HO.EDOVER 08-27 12:04 → HO.IMC 08-27 22:59
PROVIDERS: Emergency Medicine; Internal Medicine Cardiovascular Disease; Physician Assistant Medical; Admitting Provider Nurse Practitioner Acute Care; Emergency Provider Emergency Medicine Emergency Medical Services; PCP Internal Medicine; Visit Provider Nurse Practitioner Acute Care
DX: I11.0 Hypertensive heart disease with heart failure (principal); I50.33 Acute on chronic diastolic (congestive) heart failure; J96.01 Acute respiratory failure with hypoxia; I48.19 Other persistent atrial fibrillation; J70.3 Chronic drug-induced interstitial lung disorders; T46.2X5A Adverse effect of other antidysrhythmic drugs, initial encounter; I48.0 Paroxysmal atrial fibrillation; E03.9 Hypothyroidism, unspecified; J44.9 Chronic obstructive pulmonary disease, unspecified; D50.9 Iron deficiency anemia, unspecified; D63.8 Anemia in other chronic diseases classified elsewhere; E66.9 Obesity, unspecified; E78.5 Hyperlipidemia, unspecified; I35.0 Nonrheumatic aortic (valve) stenosis; Z68.30 Body mass index [BMI] 30.0-30.9, adult; Z95.2 Presence of prosthetic heart valve; Z20.822 Contact with and (suspected) exposure to COVID-19; Z99.81 Dependence on supplemental oxygen; Z87.891 Personal history of nicotine dependence; Z79.01 Long term (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; Z79.890 Hormone replacement therapy; Z79.899 Other long term (current) drug therapy
CPT/HCPCS: 0241U; 36415; 71045; 71250; 80048; 80053; 82803; 83605; 83615; 83735; 83880; 85025; 85610; 85652; 85730; 86140; 87040; 87633; 93005; 93306; 94660; 96365; 96366; 96375; 96376; 99211; 99285; J1100; J1940; J3475

== ENCOUNTER → 2022-09-14 10:17 | Outpatient (BNVA) | payer MEDICARE, MEDICAID, SELFPAY | PROVIDERS: PCP Internal Medicine; Visit Provider Internal Medicine | DX: Z95.2 Presence of prosthetic heart valve (principal); Z79.01 Long term (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; Z51.81 Encounter for therapeutic drug level monitoring | CPT/HCPCS: 85610; 99212 ==

== ENCOUNTER → 2022-09-17 11:16 | Outpatient (BNVA) | payer MEDICARE, MEDICAID, SELFPAY | PROVIDERS: PCP Internal Medicine; Visit Provider Internal Medicine | DX: Z95.2 Presence of prosthetic heart valve (principal); Z79.01 Long term (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; Z51.81 Encounter for therapeutic drug level monitoring | CPT/HCPCS: 85610; 99211 ==

== ENCOUNTER 2022-09-24 09:03 | Outpatient (REF) | payer MEDICARE, MEDICAID, SELFPAY ==
[2022-09-24 10:21] LABS: Prothrombin Time 71.4 SEC (10.0-13.1)
[2022-09-24 10:33] LABS: Anion Gap 15 (12-20); Blood Urea Nitrogen 18 mg/dL (9-16); Calcium 9.3 mg/dL (8.4-10.2); Carbon Dioxide 24 mmol/L (22-29); Chloride 104 mmol/L (96-108); Estimated Glomerular Filt Rate > 60; Glucose Random 85 mg/dL (60-115); Potassium 3.6 mmol/L (3.3-5.1); Sodium 139 mmol/L (135-145)
[2022-09-24 10:38] LABS: INTERNATIONAL NORM RATIO 5.8 (0.9-1.1)
[2022-09-26 11:59] LABS: NT-proBNP 837 pg/mL
== END 2022-09-24 09:04 | disposition home or self-care (01) ==
LOC: HO.LAB 09:03
PROVIDERS: PCP Internal Medicine; Visit Provider Internal Medicine Cardiovascular Disease
DX: Z13.89 Encounter for screening for other disorder (principal)
CPT/HCPCS: 36415; 80048; 83880; 85610; 99212

== ENCOUNTER → 2022-09-27 09:38 | Outpatient (BNVA) | payer MEDICARE, MEDICAID, SELFPAY | PROVIDERS: PCP Internal Medicine; Visit Provider Internal Medicine | DX: Z79.01 Long term (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 (principal) | CPT/HCPCS: 85610; 99211 ==

== ENCOUNTER 2022-09-27 11:10 | Inpatient (IN) | payer MEDICARE, MEDICAID, SELFPAY ==
--- NOTE | ~2022-09-27 | XR_ITS ---
EXAMINATION: XR CHEST CLINICAL INFORMATION: Shortness of breath. COMPARISON: 08/26/2022 chest radiograph. TECHNIQUE: 2 views of the chest were obtained. FINDINGS: There is mild prominence of the pulmonary vasculature with diffuse increased interstitial markings. No pleural effusions. The heart is mildly enlarged. The valve prostheses are again noted in place. The mediastinal structures are unremarkable. Multilevel sternotomy wires are intact. XR/XR chest 2V IMPRESSION: Mild pulmonary vascular congestion and edema with similar appearance.
[2022-09-27 11:11] VITALS: BP 132/48; PULSE 74; RESP 17; TEMP 36.5; O2SAT 96; BMI 27.4
--- NOTE | 2022-09-27 11:13 | ED_ITS ---
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 She does not know of any exacerbating or relieving factors. There has been no fevers or shaking chills. No ill contacts. The patient did a home COVID test which was negative. Patient saw her physician today who called the ED and stated that with minimal ambulation her oxygen saturation was dropping to 77% MD elicited complaint: shortness of breath and cough Pertinent past history: COPD Onset (ago): day(s) (1) Timing: constant Severity: moderate Exacerbating factors: nothing Relieving factors: nothing Known history of: COPD Related Data Home oxygen amount: 3 liters Home Medications Medication Instructions Recorded Confirmed furosemide 20 mg tablet (Lasix) 40 mg PO DAILY@1700 09/01/20 09/27/22 levothyroxine 25 mcg tablet 25 mcg PO DAILY 09/01/20 09/27/22 atorvastatin 20 mg tablet 20 mg PO DAILY 04/26/21 09/27/22 ferrous sulfate 325 mg (65 mg 325 mg PO DAILY 04/26/21 09/27/22 iron) tablet sertraline 100 mg tablet 200 mg PO DAILY 04/26/21 09/27/22 fluticasone fur. 200 mcg-umeclid 1 inh inhalation Q24H 07/21/22 09/27/22 62.5 mcg-vilant 25 mcg inhalat.powder (Trelegy Ellipta) warfarin 2.5 mg tablet See Protocol PO DAILY 07/21/22 09/27/22 warfarin 2.5 mg tablet 5 mg PO DAILY 08/26/22 09/27/22 albuterol sulfate 90 mcg/actuation 1 puff inhalation Q4H 09/24/22 09/27/22 aerosol inhaler (Ventolin HFA) diltiazem HCl 120 mg capsule,24 120 mg PO DAILY 09/24/22 09/27/22 hr,extended release tiotropium bromide 2.5 inhalation 09/24/22 09/27/22 mcg/actuation mist for inhalation (Spiriva Respimat) lisinopril 5 mg tablet 1 tab PO DAILY 09/27/22 Allergies Allergy/AdvReac Type Severity Reaction Status Date / Time PAPER TAPE Allergy Mild REDNESS, Uncoded 09/27/22 10:24 RASH amioderone AdvReac Severe Swelling Uncoded 09/27/22 10:24 Review of Systems Constitutional: Constitutional: Denies chills, Reports fatigue, Denies fever(s) and Denies headache(s) Eyes: Eyes: Denies blurry vision and Denies diplopia ENT: Denies dizziness, Denies headache(s), Denies nasal discharge and Denies neck pain Cardiovascular: Cardiovascular: Denies chest pain, Denies lightheadedness, Denies palpitations and Reports dyspnea Respiratory: Respiratory: Reports cough, Reports dyspnea and Denies wheezing Gastrointestinal: Gastrointestinal: Denies abdominal pain, Denies nausea and Denies vomiting Genitourinary: Genitourinary: Reports no additional female genitourinary complaints Musculoskeletal: Musculoskeletal: Reports no additional musculoskeletal compl aints and Denies neck pain Integumentary/Breasts: Skin/Breast: Reports system reviewed and no additional complaints, except as docu Neurologic: Denies Abnormal speech present, Denies dizziness and Denies headache(s) Endocrine: Endocrine: Reports fatigue and Denies palpitations Allergic/Immunologic: Allergic/Immunologic: Denies wheezing PMFSH Past Medical History Attestation statement: The following information was validated with the patient. Medical History (HFpEF) heart failure with preserved ejection fraction Abnormal EKG Anemia Aortic stenosis Atrial flutter CHF (congestive heart failure) COPD (chronic obstructive pulmonary disease) Current use of anticoagulant therapy Exercise hypoxemia Hypoxia Interstitial lung disease Obesity Paroxysmal atrial fibrillation Persistent atrial fibrillation Surgical History History of sleeve gastrectomy (~2017) Hx of section Hx of mitral valve replacement (~2004) Hx of transesophageal echocardiography (SHELIA) for monitoring (~2015) S/P MVR (mitral valve replacement) Family History Family History Father No problems noted. Mother CVD (cardiovascular disease) Social History Social History Household Members: Family Housing: House Do you presently have visiting nurse or other home services: No Alcohol intake: never Patient Tobacco Use Status: Former Tobacco user Tobacco use type: Cigarette Smoked in Last 30 Days: No Use of substances other than those prescribed or required for medical reasons: No Advance Directives: Yes Advance Directives on File: No Advance Directives Date on File: 08/28/22 service: No Current occupational status: disabled Physical Exam Vital Signs: Vital Signs: Last Vital Signs Temp 98.3 F 09/27/22 14:32 Pulse 74 09/27/22 14:52 Resp 20 09/27/22 14:52 BP 116/51 L 09/27/22 14:32 Pulse Ox 89 L 09/27/22 14:32 O2 Del Method 09/27/22 14:32 Oxygen Flow Rate 4 09/27/22 11:11 BMI result Body Mass Index 27.4 Vital signs as noted Const: General: cooperative and in distress mild Nutritional Appearance: average body habitus Orientation/consciousness: patient oriented x3 HEENT: Head: Yes normal to inspection, Yes normocephalic and Yes atraumatic Ears: external ears normal General nose exam: Normal external nose present Face and sinus: Yes normal facial exam Mouth: Normal oral and palatal mucosa present Eyes: Conjunctivae: conjunctivae normal Sclerae: sclerae normal Pupils: Equal, round and reactive pupils present EOM: EOMs intact bilaterally Neck: Neck: Yes normal visual inspection and Yes full ROM Chest: Chest palpation & inspection: normal inspection of the chest Resp: Effort & Inspection: Actively coughing and tachypneic Auscultation: rales and diminished lung sounds Cardio: Rate: regular rate Rhythm: regular rhythm Heart sounds: Other heart sounds present (Artificial mitral valve click is audible) GI: Inspection: Yes normal to inspection and No obesity Back/Spine/Pelvis: Cervical Spine: normal cervical lordosis and cervical ROM normal Skin: General skin exam: no rashes or lesions noted, no mottling and no pallor Neuro: General: patient oriented x3 and CN's II-XI intact bilaterally Cranial nerves: Yes Equal, round and reactive pupils present Cognition (Neuro): normal cognition Speech: No Abnormal speech present Extrem: General: Yes normal to inspection, Yes full ROM and Yes no clubbing, cyanosis or edema Medications Administered Discontinued Medications Generic Name Dose Route Start Last Admin Trade Name Keith PRN Reason Stop Dose Admin Albuterol/Ipratropium 3 ml 09/27/22 14:37 09/27/22 14:51 Albuterol/Iprat 2.5/0.5mg 3 Ml Ampul.Neb INHALE 09/27/22 14:38 3 ml ONCE ONE Administration MDM - SOB/Dyspnea MDM Narrative Medical decision making narrative: 66-year-old female with past medical history of amiodarone lung toxicity, recent aortic valve replacement presented to her doctor's office today with shortness of breath. Found to have O2 saturation of 77% while ambulating on room air, w anahih was able to be reproduced here in the ER. Laboratory studies were unremarkable with the exception of an elevated D-dimer. Chest x-ray showed minimal increased pulmonary vascular markings, but doubt CHF secondary to no history of same, and normal ejection fraction preoperatively. The patient was treated here in the emergency room with a DuoNeb and steroids, as well as a small dose of Lasix and nitroglycerin paste (preload reduction). Because of the patient's significant hypoxia with ambulation, a CT scan of the chest was ordered to rule out pulmonary embolism, however this could not be done immediately because of radiology protocol which states the patient has to be fasting for 3 hours and the patient had eaten lunch here in the ER. Will attempt to get CT, but patient will still require admission regardless of the results. Differential Diagnosis Differential diagnosis: Likely acute exacerbation of chronic obstructive airways disease, congestive heart failure and pulmonary embolism Medical Records Attestation: I reviewed the patient's medical records. Lab Data Attestation: I reviewed the patient's lab results. Lab results narrative: Laboratory studies essentially unremarkable Result diagrams: 09/27/22 12:09 09/27/22 12:47 Labs: Lab Results 09/27/22 09/27/22 09/27/22 Range/Units 12:09 12: 12: WBC 9.0 (4.8-10.8) X10*3/uL RBC 2.88 L (4.20-5.50) X10*6/uL Hgb 7.7 L (12.0-16.0) g/dl Hct 25.9 L (37.0-47.0) % MCV 89.9 (80.0-98.0) fL MCH 26.7 L (27.0-33.0) pg MCHC 29.7 L (31.0-35.0) g/dl RDW 18.2 H (11.0-16.0) % Plt Count 197 (160-400) X10*3/uL MPV 12.7 H (9.4-12.3) fL Immature Gran % (Auto) 0.6 H (0.0-0.4) % Neut % (Auto) 87.8 H (45-73) % Lymph % (Auto) 5.9 L (20-40) % [place] % (Auto) 4.4 (2-11) % Eos % (Auto) 1.0 (0-4) % Baso % (Auto) 0.3 (0-2) % Lymph # (Auto) 0.5 L (1.2-4.9) X10*3/uL [place] # (Auto) 0.4 (0.1-1.2) X10*3/uL Eos # (Auto) 0.1 (0.0-0.4) X10*3/uL Baso # (Auto) 0.0 (0.0-0.2) X10*3/uL Abs Immat Gran (auto) 0.05 H (0.00-0.03) X10*3/uL Absolute Neuts (auto) 7.9 (2.0-8.3) x10*3/uL Absolute Nucleated RBC 0.000 (0.0-0.012) X10*3/uL Nucleated RBC % (auto) 0.0 (0.0-0.2) /100WBC D-Dimer High Sensitivty 430 NG/ML Sodium (135-145) mmol/L Potassium (3.3-5.1) mmol/L Chloride (96-108) mmol/L Carbon Dioxide (22-29) mmol/L Anion Gap (12-20) BUN (9-16) mg/dL Creatinine (0.5-1.4) mg/dL Estim Creat Clear Calc Estimated GFR Random Glucose (60-115) mg/dL Lactic Acid 0.9 (0.5-2.0) mmol/L Calcium (8.4-10.2) mg/dL Total Bilirubin (0.0-1.0) mg/dL Direct Bilirubin (0.0-0.5) mg/dL AST (5-31) U/L ALT (0-31) U/L Alkaline Phosphatase (39-117) U/L Troponin I High Sens (<3.5-17.0) ng/L Total Protein (6.5-8.0) g/dL Albumin (3.5-5.0) g/dL Urine Color Urine Appearance Urine pH (5.0-9.0) Ur Specific [place] (1.005-1.025) Urine Protein (Neg-Trace) mg/dL Urine Glucose (UA) (Negative) mg/dL Urine Ketones (Negative) mg/dL Urine Blood (Negative) Urine Nitrite (Negative) Ur Leukocyte Esterase (Negative) Urine RBC (0-2) /HPF Urine WBC (0-5) /HPF Ur Squamous Epith Cells (0-2) /HPF Urine Bacteria (None Seen) Hyaline Casts (0-2) /LPF COVID-19 (ROS) (Negative) COVID-19 Clin Com 09/27/22 09/27/22 09/27/22 Range/Units 12:09 12:09 12:47 WBC (4.8-10.8) X10*3/uL RBC (4.20-5.50) X10*6/uL Hgb (12.0-16.0) g/dl Hct (37.0-47.0) % MCV (80.0-98.0) fL MCH (27.0-33.0) pg MCHC (31.0-35.0) g/dl RDW (11.0-16.0) % Plt Count (160-400) X10*3/uL MPV (9.4-12.3) fL Immature Gran % (Auto) (0.0-0.4) % Neut % (Auto) (45-73) % Lymph % (Auto) (20-40) % [place] % (Auto) (2-11) % Eos % (Auto) (0-4) % Baso % (Auto) (0-2) % Lymph # (Auto) (1.2-4.9) X10*3/uL [place] # (Auto) (0.1-1.2) X10*3/uL Eos # (Auto) (0.0-0.4) X10*3/uL Baso # (Auto) (0.0-0.2) X10*3/uL Abs Immat Gran (auto) (0.00-0.03) X10*3/uL Absolute Neuts (auto) (2.0-8.3) x10*3/uL Absolute Nucleated RBC (0.0-0.012) X10*3/uL Nucleated RBC % (auto) (0.0-0.2) /100WBC D-Dimer High Sensitivty NG/ML Sodium 137 (135-145) mmol/L Potassium 3.6 (3.3-5.1) mmol/L Chloride 103 (96-108) mmol/L Carbon Dioxide 28 (22-29) mmol/L Anion Gap 10 L (12-20) BUN 14 (9-16) mg/dL Creatinine 0.73 (0.5-1.4) mg/dL Estim Creat Clear Calc 69.4 Estimated GFR > 60 Random Glucose 90 (60-115) mg/dL Lactic Acid (0.5-2.0) mmol/L Calcium 9.0 (8.4-10.2) mg/dL Total Bilirubin 0.9 (0.0-1.0) mg/dL Direct Bilirubin 0.4 (0.0-0.5) mg/dL AST 31 (5-31) U/L ALT < 6 (0-31) U/L Alkaline Phosphatase 87 (39-117) U/L Troponin I High Sens 9.2 (<3.5-17.0) ng/L Total Protein 7.7 (6.5-8.0) g/dL Albumin 3.5 (3.5-5.0) g/dL Urine Color Urine Appearance Urine pH (5.0-9.0) Ur Specific [place] (1.005-1.025) Urine Protein (Neg-Trace) mg/dL Urine Glucose (UA) (Negative) mg/dL Urine Ketones (Negative) mg/dL Urine Blood (Negative) Urine Nitrite (Negative) Ur Leukocyte Esterase (Negative) Urine RBC (0-2) /HPF Urine WBC (0-5) /HPF Ur Squamous Epith Cells (0-2) /HPF Urine Bacteria (None Seen) Hyaline Casts (0-2) /LPF COVID-19 (ROS) Negative (Negative) COVID-19 Clin Com See Note 09/27/22 Range/Units 13:16 WBC (4.8-10.8) X10*3/uL RBC (4.20-5.50) X10*6/uL Hgb (12.0-16.0) g/dl Hct (37.0-47.0) % MCV (80.0-98.0) fL MCH (27.0-33.0) pg MCHC (31.0-35.0) g/dl RDW (11.0-16.0) % Plt Count (160-400) X10*3/uL MPV (9.4-12.3) fL Immature Gran % (Auto) (0.0-0.4) % Neut % (Auto) (45-73) % Lymph % (Auto) (20-40) % [place] % (Auto) (2-11) % Eos % (Auto) (0-4) % Baso % (Auto) (0-2) % Lymph # (Auto) (1.2-4.9) X10*3/uL [place] # (Auto) (0.1-1.2) X10*3/uL Eos # (Auto) (0.0-0.4) X10*3/uL Baso # (Auto) (0.0-0.2) X10*3/uL Abs Immat Gran (auto) (0.00-0.03) X10*3/uL Absolute Neuts (auto) (2.0-8.3) x10*3/uL Absolute Nucleated RBC (0.0-0.012) X10*3/uL Nucleated RBC % (auto) (0.0-0.2) /100WBC D-Dimer High Sensitivty NG/ML Sodium (135-145) mmol/L Potassium (3.3-5.1) mmol/L Chloride (96-108) mmol/L Carbon Dioxide (22-29) mmol/L Anion Gap (12-20) BUN (9-16) mg/dL Creatinine (0.5-1.4) mg/dL Estim Creat Clear Calc Estimated GFR Random Glucose (60-115) mg/dL Lactic Acid (0.5-2.0) mmol/L Calcium (8.4-10.2) mg/dL Total Bilirubin (0.0-1.0) mg/dL Direct Bilirubin (0.0-0.5) mg/dL AST (5-31) U/L ALT (0-31) U/L Alkaline Phosphatase (39-117) U/L Troponin I High Sens (<3.5-17.0) ng/L Total Protein (6.5-8.0) g/dL Albumin (3.5-5.0) g/dL Urine Color [place] A Urine Appearance Clear Urine pH 5.5 (5.0-9.0) Ur Specific [place] 1.025 (1.005-1.025) Urine Protein 30 (1+) H (Neg-Trace) mg/dL Urine Glucose (UA) Negative (Negative) mg/dL Urine Ketones Trace (Negative) mg/dL Urine Blood Negative (Negative) Urine Nitrite Negative (Negative) Ur Leukocyte Esterase Trace H (Negative) Urine RBC 0-2 (0-2) /HPF Urine WBC 0-5 (0-5) /HPF Ur Squamous Epith Cells 3-5 (0-2) /HPF Urine Bacteria None Seen (None Seen) Hyaline Casts 3-5 (0-2) /LPF COVID-19 (ROS) (Negative) COVID-19 Clin Com Imaging Data Chest x-ray: Radiologist's impression: IMPRESSION: Mild pulmonary vascular congestion and edema with similar appearance to a prior chest x-ray from July ECG Data Attestation: I personally reviewed and interpreted this ECG as follows: ECG interpretation date: 09/27/22 ECG interpretation time: 11:55 Interpretation: Normal sinus rhythm at 71, normal intervals and a normal axis. T-wave inversions in leads 2, AVF, V1 through V6. When compared to an EKG from July of 2022, there has been no significant interval change Discharge Plan Discharge Clinical Impression: Increasing shortness of breath, D-dimer, elevated, Abnormal ECG, Amiodarone pulmonary toxicity Patient Disposition: Admitted As Inpatient Prescriptions: No Action sertraline 100 mg Tablet 200 mg PO DAILY atorvastatin 20 mg Tablet 20 mg PO DAILY ferrous sulfate 325 mg (65 mg iron) Tablet 325 mg PO DAILY warfarin 2.5 mg tablet 5 mg PO DAILY Protocol: Dose Management Condition: Saturday (Week One) Dose/Route: 7.5 mg Instruction: 3 x 2.5 mg tablets Condition: Saturday Dose/Route: 0 mg Instruction: 0 tablets Condition: Saturday Dose/Route: 2.5 mg Instruction: 1 x 2.5 mg tablet Condition: Saturday Dose/Route: 2.5 mg Instruction: 1 x 2.5 mg tablet Condition: Dose/Route: 2.5 mg Instruction: 1 x 2.5 mg tablet Condition: Saturday Dose/Route: 5 mg Instruction: 2 x 2.5 mg tablets Condition: Saturday Dose/Route: 2.5 mg Instruction: 1 x 2.5 mg tablet Condition: Saturday (Week Two) Dose/Route: 5 mg Instruction: 2 x 2.5 mg tablets Condition: Saturday Dose/Route: 2.5 mg Instruction: 1 x 2.5 mg tablet Condition: Saturday Dose/Route: 5 mg Instruction: 2 x 2.5 mg tablets Condition: Saturday Dose/Route: 2.5 mg Instruction: 1 x 2.5 mg tablet Condition: Dose/Route: 5 mg Instruction: 2 x 2.5 mg tablets Condition: Saturday Dose/Route: 2.5 mg Instruction: 1 x 2.5 mg tablet Condition: Saturday Dose/Route: 5 mg Instruction: 2 x 2.5 mg tablets Protocol Text: Adjustment Start Date: 09/27/22 INR Value: Pending INR Date: 09/27/22 Recheck Date: 10/01/22 Additional Instructions: REVEIW FOOD LIST, EAT A MIX OF GREENS AND REDS, STRETCH AND RAISE ARMS REVIEW FOODS FOR LUNG HEALTH lisinopril 5 mg tablet 1 tab PO DAILY Marquita Engel 200-62.5-25 mcg Blister With Device 1 inh INHALATION Q24H warfarin 2.5 mg tablet See Protocol PO DAILY Protocol: Dose Management Condition: Saturday (Week One) Dose/Route: 7.5 mg Instruction: 3 x 2.5 mg tablets Condition: Saturday Dose/Route: 0 mg Instruction: 0 tablets Condition: Saturday Dose/Route: 2.5 mg Instruction: 1 x 2.5 mg tablet Condition: Saturday Dose/Route: 2.5 mg Instruction: 1 x 2.5 mg tablet Condition: Dose/Route: 2.5 mg Instruction: 1 x 2.5 mg tablet Condition: Saturday Dose/Route: 5 mg Instruction: 2 x 2.5 mg tablets Condition: Saturday Dose/Route: 2.5 mg Instruction: 1 x 2.5 mg tablet Condition: Saturday (Week Two) Dose/Route: 5 mg Instruction: 2 x 2.5 mg tablets Condition: Saturday Dose/Route: 2.5 mg Instruction: 1 x 2.5 mg tablet Condition: Saturday Dose/Route: 5 mg Instruction: 2 x 2.5 mg tablets Condition: Saturday Dose/Route: 2.5 mg Instruction: 1 x 2.5 mg tablet Condition: Dose/Route: 5 mg Instruction: 2 x 2.5 mg tablets Condition: Saturday Dose/Route: 2.5 mg Instruction: 1 x 2.5 mg tablet Condition: Saturday Dose/Route: 5 mg Instruction: 2 x 2.5 mg tablets Protocol Text: Adjustment Start Date: 09/27/22 INR Value: Pending INR Date: 09/27/22 Recheck Date: 10/01/22 Additional Instructions: [facility] FOOD LIST, EAT A MIX OF GREENS AND REDS, STRETCH AND RAISE ARMS REVIEW FOODS FOR LUNG HEALTH levothyroxine 25 mcg tablet 25 mcg PO DAILY furosemide [Lasix] 20 mg tablet 40 mg PO DAILY@1700 Hold Instructions: Doctor's Order albuterol sulfate [Ventolin HFA] 90 mcg/actuation HFA aerosol inhaler 1 puff inhalation Q4H Spiriva Respimat 2.5 mcg/actuation mist inhalation diltiazem HCl 120 mg capsule,extended release 24 hr 120 mg PO DAILY
--- OUTSIDE RECORDS SUMMARY | 2022-09-27 11:28 | XMS_ITS | Continuity of Care Document ---
:1955 Author Organization [facility] Address [address] [place] [address] Care Team Providers Name Role Phone Azam Mao Rounding Physician Daniela Chopra Primary Care Physician Daniela Chopra Primary Care Physician Cheryle Miller Admitting Physician Cheryle Miller Attending Physician Gunjan Bassett Rounding Physician Corey Lopez Rounding Physician Allergies, Adverse Reactions, Alerts No known allergies. Medications Active Medications Medication Dose Units Route Sig Start Date Status Atorvastatin 20 MG Oral Daily July 30, 2022 A ctive Amiodarone 200 MG Oral Daily July 30, 2022 Act gabrielle Sertraline 100 MG Oral Daily July 30, 2022 Act gabrielle Warfarin 2.5 MG Oral Daily July 30, 2022 Acti ve Diltiazem Hcl 120 MG Oral Daily July 30, 2022 Active Djdfrndehhc-Dnzoboypq-Zr 1 INH Inhalation (Do not Daily July 30, 2022 Active lanter [Trelegy Ellipta] use) Discontinued Medications Medication Dose Units Route Sig Start Date Discontinued Date Status Amiodarone MG July 30, 2022 July 30 Discontinued Problem List Active Problems Medical Problem Onset Date Status Acute exacerbation of CHF (congestive heart failure) Active Shortness of breath Active Acute hypoxemic respiratory failure Acti ve Supratherapeutic INR Active Acute exacerbation of chronic obstructive pulmonary disease (COPD) Active Procedures Procedure Date Status XR chest 2V AP&LAT August 06, 2022 active XR chest 2V AP&LAT August 04, 2022 completed XR chest 1V single AP August 03, 2022 completed XR chest 1V single AP August 02, 2022 completed XR chest 1V single AP July 30, 2022 completed Relevant Diagnostic Tests and/or Laboratory Data Laboratory Results Test Date/Time Result Interp. Ref. Range Result Comment White Blood Count August 05, 11.6 th/mm3 High 4.0-11.0 2021 8:30am Red Blood Count August 05, 3.39 mil/mm3 Low 4.00-5.30 2021 8:30am Hemoglobin August 05, 9.5 gm/dL Low 11.6-15.3 2021 8:30am Hematocrit August 05, 30.0 % Low 35.0-46.0 2021 8:30am Mean Corpuscular August 05, 88.5 fL 80.0-100.0 Volume 2021 8:30am Mean Corpuscular August 05, 28.0 pg 27.0-34.0 Hemoglobin 2021 8:30am Mean Corpuscular August 05, 31.7 g/dL 30.5-35.1 Hemoglobin Concent 2021 8:30am Red Cell August 05, 14.8 % 11.6-17.2 Distribution Width 2021 8:30am Platelet Count August 05, 337 th/mm3 [phone] 8:30am Mean Platelet Volume August 05, 11.9 fL 7.0-12.0 2021 8:30am Differential Comment August 05, . 2021 8:30am Neutrophils (%) August 05, 83.8 % High 16.0-70.0 (Auto) 2021 8:30am Immature Granulocyte August 05, 1.0 % 0-6 % (Auto) 2021 8:30am Lymphocytes (%) August 05, 13.0 % 9.0-44.0 (Auto) 2021 8:30am Monocytes (%) (Auto) August 05, 1.9 % 0.0-8.0 2021 8:30am Eosinophils (%) August 05, 0.2 % 0.0-4.0 (Auto) 2021 8:30am Basophils (%) (Auto) August 05, 0.1 % 0.0-2.0 2021 8:30am Neutrophils # (Auto) August 05, 9.7 th/mm3 High 1.8-7.7 2021 8:30am Immature Granulocyte August 05, 0.1 th/mm3 # (Auto) 2021 8:30am Lymphocytes # (Auto) August 05, 1.5 th/mm3 1.0-4.8 2021 8:30am Monocytes # (Auto) August 05, 0.2 th/mm3 0.0-0.9 2021 8:30am Eosinophils # (Auto) August 05, 0.0 th/mm3 0.0-0.4 2021 8:30am Basophils # (Auto) August 05, 0.0 th/mm3 0.0-0.2 2021 8:30am Prothrombin Time August 05, 26.0 sec High 9.8-11.6 2021 8:30am Prothromb Time August 05, 2.5 Ratio INR INDIC ATION International Ratio 2021 8:30am 2.0 - 3.0 --- --Prophylaxis of Venous Thrombosis (High Risk Batista rgery) Treatment of Venous Thrombosis Treatment of Pulmonary Embolism Prevention of Systemic Embolism Tissue Heart Valves Acute Myocard ial Infarction Valvular Hear t Disease Atrial Fibril lation 2.5 - 3.5 --- --Mechanical Prosthetic Valves, Preventative Therapy for Recurrent Myocardial In farction, Consistent with FDA Recommend ations. Activated Partial July 30, 48.1 sec High 23.4-31.7 Thromboplast Time 2021 7:50am Urine Color August 01, Yellow Yellw/Straw 2021 10:20am Urine Clarity August 01, Clear Clear 2021 10:20am Urine pH August 01, 6.0 5.0-8.5 2021 10:20am Urine Specific August 01, 1.010 1.002-1.035 [place] 2021 10:20am Urine Protein August 01, Negative mg/dL Neg-Trace 2021 10:20am Urine Glucose (UA) August 01, Negative mg/dL Negative 2021 10:20am Urine Ketones August 01, Negative mg/dL Negative 2021 10:20am Urine Occult Blood August 01, Negative Negative 2021 10:20am Urine Nitrate August 01, Negative Negative 2021 10:20am Urine Bilirubin August 01, Negative Negative 2021 10:20am Urine Urobilinogen August 01, 0.2 mg/dL Less than 2 (Auto) 2021 10:20am Urine Leukocyte August 01, Negative Negative Esterase 2021 10:20am Urine RBC (Manual) August 01, 0-3 /hpf 0-3 2021 10:20am Urine WBC (Manual) August 01, 0-5 /hpf 0-5 2021 10:20am Urine Squamous August 01, 0-5 /hpf 0-5 Epithelial Cells 2021 10:20am Microscopic August 01, Culture not ind Urinalysis Comment 2021 10:20am Urine Microscopic August 01, Microscopic Review 2021 10:20am reviewed Urine Culture August 01, Culture not ind Comments 2021 10:20am Sodium Level August 05, 138 meq/L [phone] 8:30am Potassium Level August 05, 4.3 meq/L 3.5-5.1 2021 8:30am Chloride Level August 05, 100 meq/L 98-107 2021 8:30am Carbon Dioxide Level August 05, 32.5 meq/L High 21.0-32.0 2021 8:30am Anion Gap August 05, 6 meq/L 5-15 2021 8:30am Blood Urea Nitrogen August 05, 41 mg/dL High 7-18 2021 8:30am Creatinine August 05, 1.10 mg/dL High 0.50-1.00 2021 8:30am Estimat Glomerular August 05, 56 mL/min Low >89 Filtration Rate 2021 8:30am Random Glucose August 05, 132 mg/dL High 74-106 Note: Sulf asalazine and Sulfapyridine february 2022 8:30am spuriously af fect result. Calcium Level August 05, 9.1 mg/dL 8.5-10.1 2021 8:30am Total Bilirubin August 05, 0.5 mg/dL 0.2-1.0 2021 8:30am Aspartate Amino August 05, 16 U/L 15-37 Note: Sul fasalazine and Sulfapyridine february Transf (AST/SGOT) 2021 8:30am spurio usly affect result. Alanine August 05, 13 U/L 10-53 Note: Sulfasal azine and Sulfapyridine may Aminotransferase 2021 8:30am spuriou sly affect result. (ALT/SGPT) Troponin I High July 30, 9 pg/mL 3.0-54 Reference ranges are not established for patients that are less than 21 years of age or greater than 91 years of age. Sensitivity 2021 7:50am Results of t his test should always be interpreted in conjunction wi th the patient's medical history, clinical presentation a nd other findings. B-Type Natriuretic August 04, 142 pg/mL High 0-100 Peptide 2021 5:51am Total Protein August 05, 7.9 g/dL 6.4-8.2 Delta: 7.0 on 2021 8:30am 08/04/22-7 Albumin August 05, 3.2 g/dL Low 3.4-5.0 2021 8:30am Alkaline Phosphatase August 05, 93 U/L 45-117 2021 8:30am Advance Directives Advance Directive Response Recorded Date/Time Advance Directives Yes July 30, 2022 12:0 0pm Health Care Surrogate Name and Raul Bond [phone] July 30, 2022 12:00pm Number Healthcare Surrogate Yes July 30, 2022 12: 00pm Living Will Yes July 30, 2022 12:0 0pm Out of Hospital DNR No July 30, 2022 12:0 0pm Chief Complaint and Reason for Visit Encounter Admit Date Chief Complaint Reason for Visit Admitted Inpatient July 30, 2022 hypoxemic respiratory Acute e xacerbation of CHF (congestive heart failure) 9:25am failure,chf 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 Hospital Discharge Medications Medication Dose Units Route Sig Qty Days Order Status Instru ctions Date Atorvastatin 20 MG Oral Daily July Amiodarone MG July Discontinued 2021 Amiodarone 200 MG Oral Daily July Sertraline 100 MG Oral Daily July Warfarin 2.5 MG Oral Daily July Diltiazem Hcl 120 MG Oral Daily July Fluticasone-Um 1 INH Inhalation Daily July Acti ve eclidin-Vilant (Do not 2021 er use) Encounters Encounter Facility Location Admit/Visit Discharge/Departure Atte nding Date Date Provider Admitted [facility]OBOPO 5 [facility] Encounter Diagnosis Onset Date Acute exacerbation of CHF (congestive heart failure) Acute exacerbation of chronic obstructive pulmonary di sease (COPD) Acute hypoxemic respiratory failure Shortness of breath Supratherapeutic INR Functional Status Query Response Date Recorded Comment Comprehension Ability No Impairment August 02, 2022 4:00pm Level of Consciousness Alert August 02, 2022 8:00pm Patient Orientation Person August 02, 2022 8:00pm Place Date/Time Situation Query Response Date Recorded Comment Bathing Ability Moderate Assistance August 05, 2022 8:00am Eating (Feeding) Ability Independent August 05, 2022 12:00pm Level of [place] Independent August 04, 2022 8:00pm Toileting Ability Independent July 30, 2022 12:40pm Immunizations No known immunizations. Plan of Care No Known Plan of Care Information Social History Query Response Date Recorded Comment Tobacco Use In Past 30 Days No July 30, 2022 12:0 0pm Query Response Start Date Stop Date Smoking Status Never smoker Vital Signs Vital Reading Result Reference Range Collection Date/ Time Height 157.48 cm July 30, 2022 12:00pm Weight 77.4 kg August 05, 2022 6:00am Temperature 97.6 F 97.6 F-99.6 F August 05, 2022 12:00pm Pulse 67 BPM 60-90 August 05, 2022 12:00pm Respiration 19 RPM 12-24 August 05, 2022 12:00pm Pulse Oximetry 93 % 95-100 August 05, 2022 12:00pm Blood Pressure Systolic 110 100-140 August 05, 2022 12:00pm Blood Pressure Diastolic 52 60-90 August 05, 2022 12:00pm
--- OUTSIDE RECORDS SUMMARY | 2022-09-27 11:28 | XMS_ITS | Continuity of Care Document ---
:1955 Author Organization [facility] Address [address] [place] [id number]- Care Team Providers Name Role Phone Scout SAHNI, Tarik Reynoso Primary Care Physician Encounter [facility] Date(s): 08/28/22 - 09/13/[address] [id number] Encounter Diagnosis Aortic stenosis, severe (Final) - 09/13/22 Discharge Disposition: A-D/C Home Attending Physician: Toño Chambers MD Admitting Physician: Charo Guzman MD Referring Physician: Charo Guzman MD Allergies, Adverse Reactions, Alerts Substance Reaction Severity Status Cordran Tape Active Immunizations Given and Recorded Vaccine Date Status Refusal Reason influenza virus vaccine, inactivated 07/18/22 Recorded influenza virus vaccine, inactivated 08/30/20 Recorded influenza virus vaccine, inactivated 07/25/18 Recorded influenza virus vaccine, inactivated 07/16/17 Recorded influenza virus vaccine, inactivated 09/27/15 Recorded influenza virus vaccine, inactivated 08/25/14 Recorded influenza virus vaccine, inactivated 09/26/10 Recorded SARS-CoV-2 mRNA ([id number]-cgnxj) vax 12/12/21 Recorde d SARS-CoV-2 (COVID-19) mRNA BNT-162b2 vac 03/07/21 Recorde d SARS-CoV-2 (COVID-19) mRNA BNT-162b2 vac 02/05/21 Recorde d tetanus/diphtheria/pertussis, acel(Tdap) 07/25/18 Recorde d Zoster Vaccine Live 04/05/17 Recorded tetanus-diphtheria toxoids (Td) 09/26/10 Recorded pneumococcal 23-valent vaccine 08/24/10 Recorded Medications acetaminophen 325 mg oral tablet 650 mg, By Mouth, Every 4 hours, PRN, Temperature Greater than 100.5, Refills 0, Maintenance, Pain ,Mild, 09/13/22 13:43:00 EST, Partial fill upon patient request if the prescription is for a scheduleII opioid drug. Start Date: 09/13/22 Status: Orderedalbuterol 108 mcg/inh inhalation aerosol with adapter 2, puffs, Inhalation, 4 times a day, 36, Gm, 6, 9, 02/13/07 15:15:50, 01/07/09 17:03:37 Start Date: 02/13/07 Status: Orderedalbuterol 90 mcg/inh inhalation aerosol with adapter 2 puffs every two hours as needed for wheezing or asthma symptoms, Inhalation, 6 times a day, PRN wheezes, # 1 can, 5 Refills Start Date: 05/23/09 Stop Date: 06/22/09 Status: Orderedaspirin 81 mg oral tablet, chewable 1 tablet = 81 mg, By Mouth, Daily, 0 Refills, Maintenance, 09/13/22 13:43:00 EST, Chew Tablet, Partial fill upon patient request if the prescription is for a schedule II opioid drug. Start Date: 09/13/22 Status: Orderedatorvastatin 10 mg oral tablet 1 tablet = 10 mg, By Mouth, Daily, # 30 tablet, 0 Refills, Maintenance, 08/28/22 15:09:00 EDT, Partial fill upon patient request if the prescription is for a schedule II opioid drug. Start Date: 08/28/22 Status: OrderedCoumadin Tablet 5, mg, By Mouth, Daily, 70 tablet, 5, 6, 21, 09/26/07 10:47:56, 10/02/06 11:41:48, 2.5 tabs M, W, F,S, Sun, 3 tabs Tues and Thurs, or per protocol, DX:[place], [place] valve, Print CLARENCE Number, ADS OPPTHS, [id number], Constant Indicator Start Date: 10/02/06 Stop Date: 08/02/08 Status: Ordereddiltiazem 120 mg/24 hours oral capsule, extended release 120 mg, 1, capsule, By Mouth, Daily, # 30 capsule, Refills 0, Tot. Refills 0, Maintenance, 09/13/22 13:43:00 EST, Route to Pharmacy Electronically, [facility]/pharmacy #[id number], Partial fill upon patient requestif the prescription is for a schedule II opioid d... Start Date: 09/13/22 Status: Ordereddiltiazem 120 mg/24 hours oral capsule, extended release 120 mg, CD Capsule, By Mouth, 09/13/22 9:00:00 EST Start Date: 09/13/22 Stop Date: 09/13/22 Status: Completedferrous sulfate 325 mg oral enteric coated tablet 325 mg, By Mouth, 3 times a day, Refills 0, Maintenance, 09/13/22 13:45:00 EST, Partial fill upon patient request if the prescription is for a schedule II opioid drug. Start Date: 09/13/22 Status: OrderedFlovent 110 mcg/inh inhalation aerosol with adapter 2, puffs, Inhalation, 2 times a day, 13, Gm, 6, 6, 07/10/07 15:36:47, Print CLARENCE Number, [id number], Constant Indicator Start Date: 07/10/07 Status: Orderedlevothyroxine 0.025 mg oral tablet 1 tablet = 25 mcg, By Mouth, Daily, # 30 tablet, 0 Refills, Maintenance, 09/13/22 13:45:00 EST, Tablet, [facility]/pharmacy #[id number], Partial fill upon patient request if the prescription is for a schedule II opioid drug., 165, cm, 09/13/22 8:27:00 EST, Height,... Start Date: 09/13/22 Stop Date: 10/13/22 Status: Orderedmelatonin 3 mg oral tablet = 3 mg, By Mouth, Daily at bedtime, PRN Insomnia, 0 Refills, Maintenance, 09/13/22 13:46:00 EST, Tablet, Partial fill upon patient request if the prescription is for a schedule II opioid drug. Start Date: 09/13/22 Status: Orderedsertraline 50 mg oral tablet 4 tablet = 200 mg, By Mouth, Daily, # 120 tablet, 0 Refills, Maintenance, 09/13/22 13:46:00 EST, Tablet, [facility]/pharmacy #[id number], Partial fill upon patient request if the prescription is for a schedule II opioid drug., 165, cm, 09/13/22 8:27:00 EST, Height... Start Date: 09/13/22 Stop Date: 10/13/22 Status: Orderedtiotropium 2.5 mcg/inh inhalation aerosol 2 puffs, Inhalation, Daily, # 1 each, 0 Refills, Maintenance, 09/13/22 13:47:00 EST, Inhaler, [facility]/pharmacy #[id number], Partial fill upon patient request if the prescription is for a schedule II opioid drug., 165, cm, 09/13/22 8:27:00 EST, Height, 74.3, kg,... Start Date: 09/13/22 Stop Date: 10/13/22 Status: OrderedVentolin 90 mcg/inh inhalation aerosol See Instructions, 1, 0, 0, 2-4 puffs every 4-6 hoursd for increased coughing, 01/07/09 17:56:43 Start Date: 01/07/09 Status: Ordered Problem List Condition Confirmation Course Effective Dates Status Health I nformant Status Aortic stenosis Confirmed Active Asthma Confirmed Active Congestive heart Confirmed Worsening Active failure hx Tobacco abuse Confirmed Active Results Radiology Reports Exam Date Time Procedure Performing Provider Status 09/13/22 8:41 AM Chest Portable Isaias Rushing; Familia (Verified ) Notes:(Chest Portable) Reason For Exam: POD2 TAVR 3L NC;CHFRESULT: Chest Portable Chest Portable performed upright at 8:23 AM Reason: CHF; POD2 TAVR 3L NC; Clinical Question(s): CHF COMPARISON: Multiple prior chest x-rays, the most recent of which is dated 09/11/2022. FINDINGS: LINES AND TUBES: None. LUNGS AND PLEURA: Slight interval decrease in pulmonary vascular congestion with partial improved aeration of the right upper lung. No pleural effusion. No pneumothorax. HEART, MEDIASTINUM AND ESHA: The patient is status post median sternotomy and valve replacement as well as TAVR. The cardiac mediastinal contours appear unchanged. BONES AND SOFT TISSUES: No acute abnormality. IMPRESSION: Decreasing pulmonary vascular congestion and improving aeration of the right upper lung. WSN: [id number] Ordering Physician: Johan Moralez Dictated By: Radha Luis MD Dictated Date/Time: 09/13/22 10:16 a Reviewed By: Radha Luis MD Signed By: Radha Luis MD Signed Date/Time: 09/13/22 10:16 am Transcribed By: DIEGO Transcribed Date/Time: 09/13/22 10:14 am Exam Date Time Procedure Performing Provider Status 09/11/22 6:39 AM Chest Portable Pallavi Anderson (Verif ied) Notes:(Chest Portable) Reason For Exam: S/P TAVR;PostopRESULT: Chest Portable Examination: Portable chest performed on 09/11/2022 at 6:15 AM. History: Status post TAVR. Findings: A frontal view of the chest is compared to a prior study dated 09/10/2022. Sternotomy wires and valve placements are noted. There is stable enlargement of the cardiac silhouette. Pulmonary edema is similar to the prior study. There are no definite pleural effusions. The osseous structures are intact. IMPRESSION: Pulmonary edema. WSN: [id number] Ordering Physician: Familia Badillo Dictated By: Crystal Sauer MD Dictated Date/Time: 09/11/22 8:49 am Reviewed By: Crystal Sauer MD Signed By: Crystal Sauer MD Signed Date/Time: 09/11/22 8:49 am Transcribed By: DIEGO Transcribed Date/Time: 09/11/22 8:48 am Exam Date Time Procedure Performing Provider Status 09/10/22 2:41 PM Chest Portable Seble Yin (Verifi ed) Notes:(Chest Portable) Reason For Exam: S/P TAVR;PostopRESULT: Chest Portable Chest Portable , supine Reason: Postop; S P TAVR; Clinical Question(s): Other:; Cardiac Tamponade; Special Instructions: on admission to unit COMPARISON: 03/20/2013. Intervening CT angiogram chest 09/04/2022 reviewed. FINDINGS: LINES AND TUBES: Inferior transvenous entry pacing catheter present, tip projecting near right hilum. LUNGS AND PLEURA: Mild, widespread alveolar opacities, slightly greatest in the upper lobes and central vascular congestion most likely reflecting CHF. No evidence of pleural effusion. No pneumothorax. HEART, MEDIASTINUM AND ESHA: The heart appears mildly prominent. Interval placement of TAVR. Mitral valve replacement and tricuspid annuloplasty ring. BONES AND SOFT TISSUES: No acute abnormality. Lymphadenopathy seen on CT is not well appreciated on this exam. IMPRESSION: CHF. Interval TAVR. A critical result message ([facility]) has been communicated via the [employer] system on 09/10/2022 2:51 PM, Message ID [id number]. WSN: [id number] Ordering Physician: Familia Badillo Dictated By: Harmeet Viramontes MD Dictated Date/Time: 09/10/22 2:52 pm Reviewed By: Harmeet Viramontes MD Signed By: Harmeet Viramontes MD Signed Date/Time: 09/10/22 2:52 pm Transcribed By: DIEGO Transcribed Date/Time: 09/10/22 2:52 pm Exam Date Time Procedure Performing Provider Status 09/04/22 10:[address] TAVR Angio Chest Luz Tran; Auth (Citlali barth) Notes:(CT TAVR Angio Chest) Reason For Exam: Pre-TAVRRESULT: CT TAVR Angio Chest ECG Gated Cardiac CTA, Chest CTA(CT TAVR Heart, CT TAVR Angio Chest) INDICATION: Reason: Pre-TAVR evaluation. Patient with history of severe and symptomatic aortic stenosis, remote mechanical mitral valve replacement tricuspid valve repair. History of rheumatic fever. HISTORY: Aortic stenosis. Pre-transcatheter aortic valve replacement (TAVR) evaluation. Assess aortic annulus and coronary ostial positions, thoracic aorta and upper extremity central arteries for arterial access. TECHNIQUE: TAVR protocol. A [employer] [place] scanner with 16 cm wide detector was employed. Automatic tube modulation based on attenuation from AP and lateral topograms was used to optimize exposure parameters. Contrast bolus tracking was used for timing. First, single-beat cardiac-gated CTA of the heart was performed using ECG-based dose modulation to limit dose. Next, non-gated CT angiograms of the chest, and of the abdomen/pelvis/groins were performed using the same contrast bolus. In addition to standard axial angiographic reconstructions, 3-D multiplanar and MIP reconstructions were obtained from the heart, chest, and abdomen/pelvis studies on separate workstations, under direct radiologist supervision, and were saved to the [facility] PACS. The patient received 70 cc Omnipaque [address] angiogram examination of the abdomen/pelvis will be dictated separately. Radiation dose parameters: Total DLP for all the examinations combined including the CTA abdomen/pelvis was CTDIvol Body: 25.58 mGy, DLP Body: 1560 mGy*cm. Comparison: None. FINDINGS: Technical: The image quality was good. The contrast enhancement was good. Aortic Valve: The aortic valve was calcified and stenotic. Aortic Annulus: The aortic annulus was defined as the plane passing through the carla of three aortic valve cusps. Annulus measurements in short and long axes were obtained at varying phases of the heart cycle during systole determined as percentages of RR interval. Perpendicular distances from this plane to the closest portion of the right coronary (RCA) and the left main coronary (LM) ostia were also measured. Image processing performed by [facility]. Phase Annulus Dimensions, Area, Perimeter; RCA; LM. 35% 27.5 x 20.1 mm, 430 mm^2, 80 mm; 20 mm; 16 mm. 65% 26.5 x 20.0 mm, 418 mm^2, 78 mm; 19 mm; 16 mm. Aortic annular calcification: None. Mitral Annulus: Status post mechanical mitral valve replacement there is moderate calcification of the mitral annulus. Tricuspid valve: Annuloplasty ring. CT ANGIOGRAPHY (Arterial dimensions are minimal luminal diameters unless otherwise indicated): Thoracic Aorta: The thoracic aorta is normal in caliber. Classic arch anatomy. No evidence of ulcerative plaque. Aortic dimensions are as follows: Sinuses of Valsalva: 34 x 34 x 32 mm, outer diameter. Sinotubular junction: 29 x 28 mm, inner diameter. Ascending (maximum): 37 x 35 mm, outer diameter. Descending (maximum): 25 x 23 mm, outer diameter. Descending (minimum): 21 x 20 mm, inner diameter. Great Vessels: Brachiocephalic artery: Minimum diameter 12 mm. Minimal calcification near the origin. Right subclavian artery: Minimum diameter 7 x 7 mm. Mild calcified plaque. Right axillary artery: Minimum diameter 7 x 7 mm. Left subclavian artery: Minimum diameter 9 x 6 mm. Mild calcified plaque. Left axillary artery: Minimum diameter 7 x 7 mm. Proximal right common carotid artery: Mildly tortuous. Normal caliber. Proximal left common carotid artery: Moderately tortuous. Normal caliber. Vertebral arteries: Pulmonary arteries: Marked dilation of the main pulmonary trunk measuring up to 4.5 cm consistent with pulmonary arterial hypertension.Although this examination was not tailored for evaluation of pulmonary arteries, no evidence of filling defect. Additional Findings: Lines and Tubes: None Trachea and Airways: Patent without evidence of tracheal or endobronchial lesion. Lungs and Pleura: Right greater than left small bilateral pleural effusion small effusion along the right horizontal fissure as well as additional diffuse intralobular septal thickening and confluent groundglass opacities with upper lobe predominance in keeping with pulmonary edema. No pneumothorax. Mediastinum and Lymph nodes: Few enlarged mediastinal and right hilar lymph nodes. For example, the largest right paratracheal node measuring up to 1.8 cm in greater short axis (image 46 series 301). Enlarged right suprahilar node measuring up to 1.5 cm in short axis (image 52 series 301). Moderate car diomegaly including biatrial enlargement. There is moderate calcification within the wall of the left atrium, may reflect prior intervention/maze procedure. Mild coronary calcification. No pericardial effusion. No esophageal abnormalities. Chest wall and Soft tissues: No acute abnormality. Normal thyroid. Small right- sided fatty Bochdalekhernia. Upper abdomen: Please see separate CT angiogram abdomen report. Bones: No acute findings. Moderate degenerative disease in the mid to lower thoracic spine with mildround back deformity. Median sternotomy. IMPRESSION: 1. Aortic valve annular dimensions, coronary ostial distances, and arterial diameters as above. 2. Aortic annular calcification: None. 3. Small bilateral pleural effusions and widespread groundglass opacities may be seen in setting of pulmonary edema and dependent atelectasis. However, there are a few enlarged mediastinal and hilar lymph nodes, and superimposed infectious etiology or a chronic interstitial/inflammatory component is not excluded. 4. Marked dilation of the main pulmonary artery measuring up to 4.5 cm consistent with pulmonary arterial hypertension. 5. Cardiomegaly with biatrial enlargement. 6. Mechanical mitral valve and tricuspid annuloplasty ring. I have personally reviewed the images and I agree with this report. WSN: [id number] Ordering Physician: Eduardo Galeano Dictated By: Corey Villalta DO Dictated Date/Time: 09/05/22 1:51 pm Reviewed By: Harmeet Viramontes MD Signed By: Harmeet Viramontes MD Signed Date/Time: 09/05/22 1:56 pm Transcribed By: DIEGO Transcribed Date/Time: 09/05/22 1:46 pm Exam Date Time Procedure Performing Provider Status 09/04/22 10:[address] TAVR Heart Luz Tran; Modified Notes:(CT TAVR Heart) Reason For Exam: Pre-TAVRRESULT: CT TAVR Heart ECG Gated Cardiac CTA, Chest CTA(CT TAVR Heart, CT TAVR Angio Chest) INDICATION: Reason: Pre-TAVR evaluation. Patient with history of severe and symptomatic aortic stenosis, remote mechanical mitral valve replacement tricuspid valve repair. History of rheumatic fever. HISTORY: Aortic stenosis. Pre-transcatheter aortic valve replacement (TAVR) evaluation. Assess aortic annulus and coronary ostial positions, thoracic aorta and upper extremity central arteries for arterial access. TECHNIQUE: TAVR protocol. A [employer] [place] scanner with 16 cm wide detector was employed. Automatic tube modulation based on attenuation from AP and lateral topograms was used to optimize exposure parameters. Contrast bolus tracking was used for timing. First, single-beat cardiac-gated CTA of the heart was performed using ECG-based dose modulation to limit dose. Next, non-gated CT angiograms of the chest, and of the abdomen/pelvis/groins were performed using the same contrast bolus. In addition to standard axial angiographic reconstructions, 3-D multiplanar and MIP reconstructions were obtained from the heart, chest, and abdomen/pelvis studies on separate workstations, under direct radiologist supervision, and were saved to the [facility] PACS. The patient received 70 cc Omnipaque [address] angiogram examination of the abdomen/pelvis will be dictated separately. Radiation dose parameters: Total DLP for all the examinations combined including the CTA abdomen/pelvis was CTDIvol Body: 25.58 mGy, DLP Body: 1560 mGy*cm. Comparison: None. FINDINGS: Technical: The image quality was good. The contrast enhancement was good. Aortic Valve: The aortic valve was calcified and stenotic. Aortic Annulus: The aortic annulus was defined as the plane passing through the carla of three aortic valve cusps. Annulus measurements in short and long axes were obtained at varying phases of the heart cycle during systole determined as percentages of RR interval. Perpendicular distances from this plane to the closest portion of the right coronary (RCA) and the left main coronary (LM) ostia were also measured. Image processing performed by [facility]. Phase Annulus Dimensions, Area, Perimeter; RCA; LM. 35% 27.5 x 20.1 mm, 430 mm^2, 80 mm; 20 mm; 16 mm. 65% 26.5 x 20.0 mm, 418 mm^2, 78 mm; 19 mm; 16 mm. Aortic annular calcification: None. Mitral Annulus: Status post mechanical mitral valve replacement there is moderate calcification of the mitral annulus. Tricuspid valve: Annuloplasty ring. CT ANGIOGRAPHY (Arterial dimensions are minimal luminal diameters unless otherwise indicated): Thoracic Aorta: The thoracic aorta is normal in caliber. Classic arch anatomy. No evidence of ulcerative plaque. Aortic dimensions are as follows: Sinuses of Valsalva: 34 x 34 x 32 mm, outer diameter. Sinotubular junction: 29 x 28 mm, inner diameter. Ascending (maximum): 37 x 35 mm, outer diameter. Descending (maximum): 25 x 23 mm, outer diameter. Descending (minimum): 21 x 20 mm, inner diameter. Great Vessels: Brachiocephalic artery: Minimum diameter 12 mm. Minimal calcification near the origin. Right subclavian artery: Minimum diameter 7 x 7 mm. Mild calcified plaque. Right axillary artery: Minimum diameter 7 x 7 mm. Left subclavian artery: Minimum diameter 9 x 6 mm. Mild calcified plaque. Left axillary artery: Minimum diameter 7 x 7 mm. Proximal right common carotid artery: Mildly tortuous. Normal caliber. Proximal left common carotid artery: Moderately tortuous. Normal caliber. Vertebral arteries: Pulmonary arteries: Marked dilation of the main pulmonary trunk measuring up to 4.5 cm consistent with pulmonary arterial hypertension.Although this examination was not tailored for evaluation of pulmonary arteries, no evidence of filling defect. Additional Findings: Lines and Tubes: None Trachea and Airways: Patent without evidence of tracheal or endobronchial lesion. Lungs and Pleura: Right greater than left small bilateral pleural effusion small effusion along the right horizontal fissure as well as additional diffuse intralobular septal thickening and confluent groundglass opacities with upper lobe predominance in keeping with pulmonary edema. No pneumothorax. Mediastinum and Lymph nodes: Few enlarged mediastinal and right hilar lymph nodes. For example, the largest right paratracheal node measuring up to 1.8 cm in greater short axis (image 46 series 301). Enlarged right suprahilar node measuring up to 1.5 cm in short axis (image 52 series 301). Moderate car diomegaly including biatrial enlargement. There is moderate calcification within the wall of the left atrium, may reflect prior intervention/maze procedure. Mild coronary calcification. No pericardial effusion. No esophageal abnormalities. Chest wall and Soft tissues: No acute abnormality. Normal thyroid. Small right- sided fatty Bochdalekhernia. Upper abdomen: Please see separate CT angiogram abdomen report. Bones: No acute findings. Moderate degenerative disease in the mid to lower thoracic spine with mildround back deformity. Median sternotomy. IMPRESSION: 1. Aortic valve annular dimensions, coronary ostial distances, and arterial diameters as above. 2. Aortic annular calcification: None. 3. Small bilateral pleural effusions and widespread groundglass opacities may be seen in setting of pulmonary edema and dependent atelectasis. However, there are a few enlarged mediastinal and hilar lymph nodes, and superimposed infectious etiology or a chronic interstitial/inflammatory component is not excluded. 4. Marked dilation of the main pulmonary artery measuring up to 4.5 cm consistent with pulmonary arterial hypertension. 5. Cardiomegaly with biatrial enlargement. 6. Mechanical mitral valve and tricuspid annuloplasty ring. I have personally reviewed the images and I agree with this report. WSN: [id number] Ordering Physician: Eduardo Galeano Dictated By: Corey Villalta DO Dictated Date/Time: 09/05/22 1:51 pm Reviewed By: Harmeet Viramontes MD Signed By: Harmeet Viramontes MD Signed Date/Time: 09/05/22 1:56 pm Transcribed By: DIEGO Transcribed Date/Time: 09/05/22 1:46 pm Exam Date Time Procedure Performing Provider Status 09/04/22 10:[address] TAVR Angio Abdomen and Pelvis Eliane Tran; Familia (Verified) Notes:(CT TAVR Angio Abdomen and Pelvis) Reason For Exam: Pre-TAVRRESULT: CT TAVR Angio Abdomen and Pelvis CT TAVR Angio Abdomen and Pelvis INDICATION: Reason: Pre-TAVR; Clinical Question(s): Pre-TAVR; Special Instructions: please use fast CT scanner and low dose protocol. thanks! , Pre-TAVR COMPARISON: None. TECHNIQUE: Spiral CTA was performed from the diaphragm through the proximal lower extremities after the intravenous administration iodinated contrast. cc of was administered intravenously. Volume rendered, maximum intensity projection, and curved planar reformat 2-D and 3-D angiographic projections ofthe data set were obtained and reviewed on an independent workstation, with images saved for review. Weight-based protocol using automatic tube modulation was used to optimize exposure parameters. RADIATION DOSE PARAMETERS: VASCULAR FINDINGS: Minimum aortic and iliofemoral luminal measurements are as follows: Aorta: 1.4 x 1.3 cm. Right common iliac: 0.8 x 0.8 cm. Right external iliac: 0.6 x 0.6 cm. Right common femoral: 0.7 x 0.5 cm. Left common iliac: 0.8 x 0.8 cm. Left external iliac: 0.8 x 0.7 cm. Left common femoral: 0.6 x 0.6 cm. NONVASCULAR FINDINGS: Visualized Chest: Please see separately submitted report of CTA chest and heart for findings above the diaphragm and additional preoperative measurements. Diaphragm: Normal. Liver: Focal hypoattenuation adjacent to falciform ligament likely represents fat deposition. Gallbladder: Distended gallbladder without evidence of acute cholecystitis. Bile ducts: No biliary ductal dilation. Spleen: Normal. Pancreas: Normal. Adrenal glands: Multiple indeterminate nodules within the left adrenal gland measuring 1.4 cm, 1.4 cm, and 1.6 cm (series 301 images 108, 110, 111). These are probably benign in the absence of a history of malignancy. One year follow- up adrenal protocol CT could be considered. Comparison with prior studies, if anything can be obtained, would be useful to document stability. Kidneys and ureters: No hydronephrosis, stones, or suspicious masses. Bladder: Normal. Reproductive organs: Unremarkable. Stomach, small bowel, and large bowel: There is evidence of prior gastric sleeve procedure without complication. Moderate juxta probably duodenal diverticulum. Small bowel loops are normal in course and caliber without evidence of obstruction. Mild distal colonic diverticulosis without evidence of acute diverticulitis. Appendix: Normal. Peritoneum and retroperitoneum: No ascites or pneumoperitoneum. No omental or mesenteric lesions. Lymph nodes: No enlarged lymph nodes. Abdominal and pelvic wall: Small fat-containing umbilical hernia. Bones: Mild multilevel degenerative changes throughout the spine. No acute fracture or suspicious lesion. IMPRESSION: 1. Preoperative measurements for TAVR provided above. Please see separately submitted report of CTA chest and heart for findings above the diaphragm and additional preoperative measurements. 2. Multiple indeterminate left adrenal nodules, the largest measuring 1.6 cm, probably benign. Correlation with prior imaging would be useful to determine stability. Biochemical evaluation could be considered, if indicated clinically. One-year follow-up adrenal protocol CT can also be considered for more definitive characterization. WSN: [id number] Ordering Physician: Eduardo Galeano Dictated By: Jodie Hummel MD Dictated Date/Time: 09/04/22 2:40 pm Reviewed By: Jodie Hummel MD Signed By: Jodie Hummel MD Signed Date/Time: 09/04/22 2:40 pm Transcribed By: DIEGO Transcribed Date/Time: 09/04/22 2:29 pm Vital Signs Most recent to oldest 1 2 3 [Reference Range]: Height 165 cm 165 cm 165 cm (09/13/22 8:27 AM) (09/13/22 4:30 AM) (09/13/22 12:09 AM) Weight 72.0 kg 70.4 kg 70.4 kg (09/13/22 4:27 AM) (09/12/22 3:43 AM) (09/12/22 3:32 AM) Oxygen Saturation [94-100 93 % 95 % 94 % %] *L* (09/13/22 4:30 AM) (09/13/22 12: 09 AM) (09/13/22 8:27 AM) Pulse Rate [55-90 bpm] 70 bpm 68 bpm 68 bpm (09/13/22 11:03 AM) (09/13/22 8:27 AM) (09/13/22 4:30 AM) Body Mass Index 25.86 kg/m2 25.93 kg/m2 27.4 kg/m2 [18.5-24.99 kg/m2] *H* *H* *H* (09/12/22 3:32 AM) (09/10/22 3:39 PM) (09/01/22 1 :31 AM) Blood Pressure 98/58 mm Hg 100/44 mm Hg 108/52 mm Hg [90-138/55-84 mm Hg] (09/13/22 11:03 AM) (09/13/22 8:27 AM) ( 4:30 AM) Respiratory Rate [16-30 18 br/min 18 br/min 18 br/mi n br/min] (09/13/22 8:27 AM) (09/13/22 4:30 AM) (09/13/22 12:09 AM) Temperature [96.8-100.4 97.5 DegF 97.3 DegF 98.1 Deg F DegF] (09/13/22 8:27 AM) (09/13/22 4:30 AM) (09/13/22 12:09 AM) Liters per Minute 2 L/min 3 L/min 3 L/min (09/13/22 8:27 AM) (09/13/22 4:30 AM) (09/13/22 12:09 AM) Mode of Delivery (Oxygen) Nasal cannula Nasal cannula Nasal cannula (09/13/22 8:27 AM) (09/13/22 4:30 AM) (09/13/22 12:09 AM) Blood pressure sites Arm, right Arm, right Arm, right (09/13/22 8:27 AM) (09/13/22 4:30 AM) (09/13/22 12:09 AM) Temperature Route Oral Oral Oral (09/13/22 8:27 AM) (09/13/22 4:30 AM) (09/13/22 12:09 AM) Dry Weight 74.3 kg 60 kg (08/31/22 6:45 PM) (08/28/22 3:59 PM) Weight Obtained Via Bed scale Bed scale Bed scale (09/13/22 4:27 AM) (09/12/22 3:43 AM) (09/12/22 3:32 AM) Dry Weight Obtained Via Patient/family stated (08/28/22 3:59 PM) Note Marce Kimbrough RN: PERFORM Event Display: Discharge/Transfer Note Hospital Authored Date: Nursing Discharge Note Entered On: 09/13/2022 16:14 EST Performed On: 09/13/2022 16:14 EST by Marce Kimbrough RN Nursing Discharge Note 2 Discharge Time : 09/13/2022 16:14 EST Discharge Level of Care at Discharge : Homehealth/VNA Discharge VNA/Hospice/Home Care(v001) : [facility] Patient Left Unit Via : Wheelchair Patient Accompanied Off Unit with : Responsible adult DC Instructions Provided & Signed by Pt : Yes Patient Understands D/C Instructions : Yes Patient Instructions Discharge Signed : Yes Did Pt have Specialty Bed or Wound Vac : No Marce Kimbrough RN - 09/13/2022 16:14 Johan Santiago: MODIFY, MODIFY, SIGN, VERIFY, PERFORM Event Display: Discharge/Transfer Note Hospital Authored Date: Patient: NUBIA BOND Age: 66 years Sex: Female : 1955 Associated Diagnoses: None Author: Johan Sebastian Discharge Information Chief Complaint/Reason for Admission shortness of breath Principal Discharge Diagnosis Aortic stenosis, severe: Present on admission - yes. Secondary Discharge Diagnoses Asthma: Present on admission - yes. CHF exacerbation: Present on admission - yes. Patient is aware of diagnosis Procedures Cardiac Surgery: Aortic valve replacement ( Transfemoral TAVR with a [address] Eduardo Galeano). Attending Consultants Peri SAHNI, Alvin Espino MD, Andrew. Immunizations IMMUNIZATIONS(Posting Range: 09/15/2012 0:00 EST - 09/13/2022 12:32 EST) 08/30/2022 9:01 EDT influenza virus vaccine, inactivated Not Done: Expectation Not Necessary (Not Done) 07/18/2022 8:00 EDT influenza virus vaccine, inactivated 0.5 Unknown Unknown 12/12/2021 7:00 EST SARS-CoV-2 mRNA ([id number]) vax 0.3 Unknown Unknown 03/07/2021 8:00 EDT SARS-CoV-2 (COVID-19) mRNA BNT-162b2 vac 0.3 Unknown Unknown 02/05/2021 8:00 EDT SARS-CoV-2 (COVID-19) mRNA BNT-162b2 vac 0.3 Unknown Unknown 08/30/2020 7:00 EST influenza virus vaccine, inactivated 0.5 Unknown Unknown 07/25/2018 8:00 EDT influenza virus vaccine, inactivated 0.5 Unknown Unknown tetanus/diphtheria/pertussis, acel(Tdap) 0.5 Unknown Unknown 07/16/2017 8:00 EDT influenza virus vaccine, inactivated 0.5 Unknown Unknown . Allergies Allergic Reactions (All) Severity Not Documented Cordran Tape- No reactions were documented. Canceled/Inactive Reactions (All) NKA Discharge condition: good Compared to admission: improved Functional Status: ambulatory Discharge Disposition Home: self care, family. Home care with: VNA. Discharge Summary distribution: Route to attending, referring, and primary care provider. Route to: Trish SAHNI, Toño Fuller. Route to: Edaurdo Galeano MD Route to: Leslie SAHNI, Luis Antonio Sepulveda Route to: Santi Perry MD. Route to: Daniela Chopra MD. Discharge Date 09/13/2022 Admission Date 08/28/2022 Code Status Full Resuscitation. Draft of Summary Completed by: Naomy TUCKER, Johan Qeuzada Case Management Discharge Plan : Case Management Discharge Plan Data 09/13/2022 12:58 EST Discharge Level of Care at Discharge Homehealth/VNA Discharge VNA/Hospice/Home Care [facility] Name of Agency #1 [facility] Service Categories #1 Physical Therapy Service Comments #1 A referral has been made to [facility] to provide PT services at home. The agency will contact you to set up a visit. Please call [phone] if you do not hear from them within 24 hours of discharge. Hospital Course Typed narrative Clinical History:66F with a history of HTN, COPD, paroxysmal atrial fibrillation, acute on chronic kidney disease, rheumatic heart disease, s/p mechanical MVR, severe aortic stenosis who presents for transfemoral TAVR. Interventional Summary Aortic stenosis-severe, symptomatic with congestive heart Heart failure with preserved LVEF Status post mechanical mitral valve replacement Em-orfjzvd-Rb. [place] Right femoral artery, 14 Swedish E sheath-closed with perclosed Left femoral artery, 6 Swedish-closed with Perclose Left femoral vein, 6 Swedish by 23 cm-temporary transvenous pacemaker left in place Temporary transvenous pacemaker insertion Aortic root angiography Transfemoral TAVR with a 23 mm S3 ultra Aortic root angiography Preprocedure Sinus rhythm, narrow QRS LVEDP 7 mmHg Post procedure Sinus rhythm, new left bundle branch block AO: LV of 85:15 Invasive aortic valve gradient-5 mmHg peak to peak The patient presents with severe, symptomatic aortic stenosis with congestive heart failure. She had a prior history of mechanical mitral valve replacement. We performed transfemoral TAVR with a 23 mm S3 ultra via the right femoral artery. There was a new left bundle branch block that appeared after we placed the stiff wire. Interventional Recommendations 1. Aspirin 81 mg daily 2. Resume warfarin tonight 3. Heparin bridge to therapeutic INR. I would prefer not to bridge with Lovenox 4. Remove temporary pacemaker wire in 2 hours if no progression of conduction disturbance Signatures Primary Plumbing Service Technician: Leslie POD #2 S/P Transfemoral TAVR Operators: Trish/Froylan --Severe aortic stenosis s/p TAVR --Anticoagulation: ASA 81 mg; Warfarin(followed by [facility]) --Post-procedure echo: mean gradient 13, Mild PVL --New LBBB(resolved) -Loop monitor upon discharge(by Dr Galeano) --HLD -Statin (Atorvastatin 40mg PO qhs) --HTN -Holding lisinopril due to soft BP and EUGENIO --Paroxysmal AF -Presently NSR -Continue preop Diltiazem CD 120 mg -Per patient she was not on metoprolol at home, and will not take it unless 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 --[facility] -Heparin to coumadin bridge; stop on discharge -INR 2.0, coumadin 7.5 mg tonight. Usually takes 7.5 mg x 5 days and 10 mg saturday/saturday) -Followup with [facility] --COPD on 3L home O2 -Continue inhalers. --Acute on chronic diastolic heart failure, compensated --Hold Lasix/aldactone due to EUGENIO --Acute kidney injury, nonoliguric -Creatinine jump from 0.8 to 1.7 , back to baseline cr 1.0 -No evidence of obstructive uropathy -Ischemic ATN from intra-procedural hypotension versus contrast induced nephropathy. -Renal consulted/signed off. -hold diuretic -follow up with PCP --Diet: Cardiac --VTE prophylaxis: on Coumadin DISPO: Home +VNA+PT 09/13/22. Exam Neurological: alert, nonfocal. Pulmonary/Lungs: decreased. Cardiovascular: S1, S2, [id number]. Gastrointestinal: Abdomen (soft, non-tender, non-distended, bowel sounds present), Diet by mouth. Extremities: Pulses palpable, Edema trace. Surgical Wounds: groins soft, dry no hematoma, no bleeding. Significant Results Results: Vital signs : VITAL SIGNS SECTION 09/13/2022 11:03 EST Pulse Rate 70 bpm Systolic Blood Pressure 98 mm Hg Diastolic Blood Pressure 58 mm Hg 09/13/2022 8:27 EST Temperature 97.5 DegF Temperature Route Oral Pulse Rate 68 bpm Respiratory Rate 18 br/min Systolic Blood Pressure 100 mm Hg Diastolic Blood Pressure 44 mm Hg L Blood pressure sites Arm, right Mean Arterial Pressure 63 mm Hg Pulse Pressure 56 mm Hg Oxygen Saturation 93 % L Liters per Minute 2 L/min Mode of Delivery (Oxygen) Nasal cannula , Laboratory : LABORATORY 09/13/2022 8:44 EST WBC 7.6 k/mm3 RBC 3.28 m/mm3 L Hgb 9.0 Gm/dL L Hct 30.2 % L MCV 92.1 femtoliters MCH 27.4 pg MCHC 29.8 g/dL L Platelet Count 183 k/mm3 RDW-SD 61.1 femtoliters H MPV 13.2 femtoliters H Nucleated RBC (Automated) 0.0 #/100 WBC'S Abs. NRBC 0.0 k/mm3 Abs. Neut 5.9 k/mm3 Abs. Lymph 0.7 k/mm3 L Abs. [place] 0.5 k/mm3 Abs. Eo 0.4 k/mm3 Abs. Baso 0.1 k/mm3 Neut % 77.3 % H Lymph % 9.4 % L [place] % 7.0 % Eos % 4.8 % Baso % 0.8 % Imm Gran 0.7 % Abs. Imm Gran 0.1 k/mm3 INR 2.0 H Protime (PT) 19.8 seconds H APTT 89.1 seconds H Sodium 138 mmol/L Potassium 4.6 mmol/L Chloride 103 mmol/L Bicarbonate Level 25 mmol/L Anion Gap 10 BUN 18 mg/dL Creatinine-Blood 1.0 mg/dL Estimated GFR Creatinine 64 ML/MIN/1.73 M2 Magnesium 1.9 mg/dL . 30 minutes spent on discharge Prescription Given this visit:Prescriptions Diltiazem (diltiazem 120 mg/24 hours oral capsule, extended release) 1 capsule = 120 mg, By Mouth, Daily, # 30 capsule, 0 Refills, [facility]/pharmacy #[id number], [address] [place] [address] [phone] Next Dose: Levothyroxine (levothyroxine 0.025 mg oral tablet) 1 tablet = 25 mcg, By Mouth, Daily, # 30 tablet, 0 Refills, [id number], [address] [place] [address] [phone] Next Dose: Sertraline (sertraline 50 mg oral tablet) 4 tablet = 200 mg, By Mouth, Daily, # 120 tablet, 0 Refills, [id number], [address] [place] [address] [phone] Next Dose: Tiotropium (tiotropium 2.5 mcg/inh inhalation aerosol) 2 puffs, Inhalation, Daily, # 1 each, 0 Refills, [id number], [address] [place] [address] [phone] Next Dose: Patient Instructions Given:No qualifying data available Education Given:Using an Event Monitor M-TAVR Discharge Instructions Understanding Transcatheter Aortic Valve Replacement (TAVR) Understanding Transcatheter Aortic Valve Replacement (TAVR) Patient Follow-up:Added Follow Up Time Frame Comments Luis Antonio Nelson 2 to 5 weeks Daniela Chopra MD 1 month resume BP meds as indicated [facility] 10/03/2022 10:30 [phone] [facility] 10/12/2022 09:30 Mary Goodson 10/26/2022 09:15 Discharge Plan Diet/Activity/Patient Education/Follow Up Follow Up with: [facility] 10/03/2022 10:30 AM [phone]; [facility] 10/12/2022 9:30 AM; Mary Goodson 10/26/2022 9:15 AM; Tarik Butterfield Within 1 month resume home BP meds , if indicated, [facility] 10/03/2022 10:30 AM [phone]; ECHO 10/12/2022 9:30 AM; Mary Goodson 10/26/2022 9:15 AM; Daniela Chopra MD Within 1 month resume BP meds as indicated; Luis Antonio Nelson Within 2 to 5 weeks. Discharge Disposition Discharge: home with VNA. Home Health Face to Face I certify that this patient is under my care and that I or an allowed non- physician practitioner working with me, had a [id number] encounter with the patient on this date: 09/13/2022. The encounter with the patient was in whole, or in part, for the following medical condition, which is the primary reason for home health care: Asthma, s/p TAVR; Home O2-dependent, Aortic stenosis, severe. Nursing: Medication management (reconciliation, teaching), Chronic disease management, Wound care and treatment (check groins), Home safety evaluation. Physical Therapy. Homebound due to: Pain, decreased strength, and endurance, limited distance ambulation due to recentcardiac surgery, limited to physician appointment visits . Physician Signature: Trish SAHNI, Toño Fuller . MEDICATION LIST (Selected) Prescriptions Prescribed Coumadin Tablet: 5, mg, By Mouth, Daily, 70 tablet, 5, 6, 21, 09/26/07 10:47:56, 10/02/06 11:41:48, 2.5 tabs M, W, F, S, Sun, 3 tabs Tues and Thurs, or per protocol, DX:[place], [place] valve, Print CLARENCE Number, ADS OPPTHS, [id number], Constant Indicator Flovent 110 mcg/inh inhalation aerosol with adapter: 2, puffs, Inhalation, 2 times a day, 13, Gm, 6,6, 07/10/07 15:36:47, Print CLARENCE Number, [id number], Constant Indicator Ventolin 90 mcg/inh inhalation aerosol: See Instructions, 1, 0, 0, 2-4 puffs every 4-6 hoursd for increased coughing, 01/07/09 17:56:43 albuterol 108 mcg/inh inhalation aerosol with adapter: 2, puffs, Inhalation, 4 times a day, 36, Gm, 6, 9, 02/13/07 15:15:50, 01/07/09 17:03:37 albuterol 90 mcg/inh inhalation aerosol with adapter: 2 puffs every two hours as needed for wheezingor asthma symptoms, Inhalation, 6 times a day, PRN wheezes, # 1 can, 5 Refills diltiazem 120 mg/24 hours oral capsule, extended release: 120 mg, 1, capsule, By Mouth, Daily, # 30 capsule, Refills 0, Tot. Refills 0, Maintenance, 09/13/22 13:43:00 EST, Route to Pharmacy Electronically, [facility]/pharmacy #[id number], Partial fill upon patient request if the prescription is for a schedule II opioid d... levothyroxine 0.025 mg oral tablet: 1 tablet = 25 mcg, By Mouth, Daily, # 30 tablet, 0 Refills, Maintenance, 09/13/22 13:45:00 EST, Tablet, [facility]/pharmacy #[id number], Partial fill upon patient request if the prescription is for a schedule II opioid drug., 165, cm, 09/13/22 8:27:00 EST, Height,... sertraline 50 mg oral tablet: 4 tablet = 200 mg, By Mouth, Daily, # 120 tablet, 0 Refills, Maintenance, 09/13/22 13:46:00 EST, Tablet, [facility]/pharmacy #[id number], Partial fill upon patient request if the prescription is for a schedule II opioid drug., 165, cm, 09/13/22 8:27:00 EST, Height... tiotropium 2.5 mcg/inh inhalation aerosol: 2 puffs, Inhalation, Daily, # 1 each, 0 Refills, Maintenance, 09/13/22 13:47:00 EST, Inhaler, [facility]/pharmacy #[id number], Partial fill upon patient request if the prescription is for a schedule II opioid drug., 165, cm, 09/13/22 8:27:00 EST, Height, 74.3, kg,... Documented Medications Documented acetaminophen 325 mg oral tablet: 650 mg, By Mouth, Every 4 hours, PRN, Temperature Greater than 100.5, Refills 0, Maintenance, Pain , Mild, 09/13/22 13:43:00 EST, Partial fill upon patient request if the prescription is for a schedule II opioid drug. aspirin 81 mg oral tablet, chewable: 1 tablet = 81 mg, By Mouth, Daily, 0 Refills, Maintenance, 09/13/22 13:43:00 EST, Chew Tablet, Partial fill upon patient request if the prescription is for a schedule II opioid drug. atorvastatin 10 mg oral tablet: 1 tablet = 10 mg, By Mouth, Daily, # 30 tablet, 0 Refills, Maintenance, 08/28/22 15:09:00 EDT, Partial fill upon patient request if the prescription is for a schedule IIopioid drug. ferrous sulfate 325 mg oral enteric coated tablet: 325 mg, By Mouth, 3 times a day, Refills 0, Maintenance, 09/13/22 13:45:00 EST, Partial fill upon patient request if the prescription is for a schedule II opioid drug. melatonin 3 mg oral tablet: = 3 mg, By Mouth, Daily at bedtime, PRN Insomnia, 0 Refills, Maintenance, 09/13/22 13:46:00 EST, Tablet, Partial fill upon patient request if the prescription is for a schedule II opioid drug. Therapies Smoking Cessation: Patient greater than or equal to 18 years Patient has not smoked in last 12 months.Julissa GOLD, [facility] [address] [facility]: PERFORM Event Display: Patient Education/Instruction Authored Date: [id number] Inpatient Adult Discharge Instructions [address] [address] Name: NUBIA BOND : 1955 Visit: 08/28/2022 13:58:00 Current Date: 09/13/2022 14:54 Account: [id number] Inpatient Adult Discharge Instructions We would like to thank you for allowing us to assist you with your healthcare needs. The following includes patient education materials and information regarding your injury/illness. Our entire staff strives to provide an excellent experience for our patients and their families. PLEASE ENSURE YOU FOLLOW-UP PER THE INSTRUCTIONS BELOW! ?? YOUR OPINION IS IMPORTANT TO US! Please complete the survey you may receive by mail or email. Your feedback will be used to make improvements to the healthcare experiences of our patients and their families. Surveys are administered by [employer] ?? If further treatment with your primary care physician or another doctor is recommended, it is important for you to keep the appointment. Call your primary care physician or return to the Emergency Department immediately if your condition worsens, fails to improve, or new symptoms develop. If you need to find a doctor, you can call [facility] for a referral at [phone] or toll free at [phone] or log in to [email or web address].. ?? You can view and manage your care through the patient portal or by using a health care huy of your choosing. [employer] is a website that allows you to securely view your medical information including your hospital discharge summary, office visit summaries, medications and follow-up visits. You can also request appointments, renew medications, and request access to your medical information using a health care huy of your choosing, or just ask a question. You can enroll at [email or web address] or register during your next office visit. You have been discharged from [facility], Patient Care Unit: M6. If you have any questions regarding these instructions after you leave, please call us and we will be happy to assist you. [facility] Your Care Team Attending Physician Trish SAHNI, Toño Fuller Consulting Providers Srinivas SAHNI, Andrew; Linsey SAHNI, Halie; Marybeth HEDRICK, Eric Blankenship; Orlando SAHNI, Santi; Binh SAHNI, Yaron Blankenship; Froylan SAHNI, Eduardo Owens Discharging Providers Naomy TUCKER, Johan Pham Reason for Admission AORTIC STENOSIS Your Diagnosis CHF exacerbation Aortic stenosis Aortic stenosis, severe Asthma Tests Performed Below is a partial list of the tests performed during your hospitalization. You may have had other tests and procedures not included in this list. Please discuss all test results with your provider. 25OH VITAMIN D Basic Metabolic Panel BUN Calcium Level CBC CBC w/ Differential COMPLEMENT C3 COMPLEMENT C4 Comprehensive Metabolic Panel COVID-19 (2019 Novel Coronavirus) PCR?-- Results Pending -- COVID-19 (NOVEL CORONAVIRUS), PCR Creatinine Electrolytes FERRITIN FOLIC ACID Glucose Level Hemoglobin A1C (Monitoring) Hgb + Hct HOLD BLUE TUBE HOLD GEL TUBE HOLD LAVENDER TUBE INR IRON & TIBC Lipid Panel Magnesium Level Mg Level NT ProBNP Phosphorus Level PT (INR) PTT VITAMIN B12 Portable Chest TAVR Angio Abdomen and Pelvis (CT) TAVR Angio Chest (CT) TAVR Heart (CT) XR Chest Portable ? You will be contacted within 72 hours with your results. Primary Care Provider Tarik Butterfield MD Advance Directive Health Care Proxy on File Yes - Health Care Proxy No qualifying data available. Discharge Vitals Temperature: 97.5 DegF Height: 165 cm Pulse Rate: 70 bpm Weight: 72 kg Respiratory Rate: 18 br/min Body Mass Index:??25.86 kg/m2??High Systolic Blood Pressure: 98 mm Hg Body surface area: 1.8 Diastolic Blood Pressure: 58 mm Hg ?? Oxygen Saturation:??93 %??Low ?? Studies Pending All tests and labs ordered during this hospital stay have been completed unless listed below. Pleasediscuss all pending results with your provider listed above in these instructions. ?? Add On Lab Order BUN CBC w/ Differential COVID-19 (2019 Novel Coronavirus) PCR Creatinine Electrolytes INR Magnesium Level PTT RBCs for Surgery Type and Screen What to do next Instructions From Your Doctor Discharge Orders Scheduled Follow-Up Appointments Saturday 9:30 AM EST ?? With: Where: [facility] Heart and Vasc Diag Saturday 9:15 AM EST ?? With: Hamzah MICHAELS, Mary Syed Where: [facility] [address] [place] [phone]- You Need to Schedule the Following Appointments Follow Up with??Mary Goodson When??10/26/2022 09:15 AM EST Where: [address] [place] [phone]- Business (1) Follow Up with??ECHO When??10/12/2022 09:30 AM EST Where: [address] [place] [address]- [phone] Follow Up with??[facility] When??10/03/2022 10:30 AM EST Why: [phone] Where: [address] [facility] [address] [place], [place] Follow Up with??Luis Antonio Nelson When??Within 2 to 5 weeks Follow Up with??Daniela Chopra MD When??Within 1 month Why: resume BP meds as indicated Where: [address] [place] [phone]- Business (1) Discharge Medications NUBIA BOND :1955 Visit Date:08/28/2022 Medications: Please continue your medications until treatment is completed or stopped by your provider. Medications not listed below should be discontinued. Discuss any questions related to medications with your provider. What How Much When Why Instructions Next Dose New Acetaminophen (acetaminophen 325 mg oral tablet) 650 Milligram Oral Every 4 hours as needed for Pain , Mild Temperature Greater than 100.5 ?? As needed New Aspirin (aspirin 81 mg oral tablet, chewable) 1 tab(s) Oral Daily 09/14 in AM New Diltiazem (diltiazem 120 mg/ 24 hours oral capsule, extended release) 1 capsule Oral Daily Pickup at [facility]/pharmacy #[id number] 09/14 in AM New Ferrous Sulfate (ferrous sulfate 325 mg oral enteric coated tablet) 325 Milligram Oral 3 times a day As prescribed New Levothyroxine (levothyroxine 0.025 mg oral tablet) 1 tab(s) Oral Daily Duration: 30 Days Pickup at [facility]/pharmacy #0488 09/14 in AM New Melatonin (melatonin 3 mg oral tablet) 3 Milligram Oral Daily at Bedtime as needed for Insomnia Tonight New Sertraline (sertraline 50 mg oral tablet) 4 tab(s) Oral Daily Duration: 30 Days Pickup at [facility]/pharmacy #0488 09/14 in AM New Tiotropium (tiotropium 2.5 mcg/ inh inhalation aerosol) 2 puff(s) Inhalation Daily Duration: 30 Days Pickup at [facility]/pharmacy #0488 09/14 in AM Unchanged Albuterol (albuterol 108 mcg/ inh inhalation aerosol with adapter) 2 puff(s) Inhalation 4 times a day As prescribed Unchanged Albuterol (albuterol 90 mcg/ inh inhalation aerosol with adapter) 2 puffs every two hours as needed for wheezing or asthma symptoms Inhalation 6 times a day as needed for wheezes As prescribed Unchanged Albuterol (Ventolin 90 mcg/ inh inhalation aerosol) See Instructions 2-4 puffs every 4-6 hoursd for increased coughing ?? As prescribed Unchanged Atorvastatin (atorvastatin 10 mg oral tablet) 1 tab(s) Oral Daily Tonight Unchanged Fluticasone (Flovent 110 mcg/ inh inhalation aerosol with adapter) 2 puff(s) Inhalation Twice a day Tonight Unchanged Warfarin (Coumadin Tablet) 5 Milligram Oral Daily DX:[place], [place] valve Duration: 30 Days 2.5 tabs M, W, F, S, Sun, 3 tabs Tues and Thurs, or per protocol ?? As prescribed Pharmacy Information [facility]/pharmacy #[id number]: [address], [place] [id number] [phone] ?? What How Much When Comments Stop Taking Doxycycline (doxycycline hyclate 100 mg oral tablet) 1 tab(s) Oral Twice a day Duration: 10 Days Stop Taking Furosemide (Lasix 40 mg oral tablet) 1 tab(s) Oral Daily Duration: 30 Days Stop Taking Homatropine-Hydrocodone (Hycodan oral syrup) 5 Milliliter Oral Every 4 hours as needed for as needed for cough Stop Taking Lisinopril (lisinopril 5 mg oral tablet) 1 tab(s) Oral Daily Duration: 30 Days Stop Taking Metoprolol (Toprol XL 100 mg oral tablet, extended release) 1 tab(s) Oral Daily Duration: 30 Days Metoprolol 50mg BID can be substituted ?? Stop Taking Oxycodone / Acetaminophen (Percocet-5 Tablet) See Instructions 1-2 By Mouth Every 6 hours [address] not drink and drive with this medication ?? Stop Taking Oxycodone / Acetaminophen (Tylox 500 mg-5 mg oral capsule) See Instructions 1 capsule By Mouth Every 6 hours as needed for pain ?? Stop Taking PredniSONE (prednisone 50 mg oral tablet) 1 tab(s) Oral Daily Duration: 5 Days Stop Taking Spironolactone (Spironolactone Tablet) 12.5 Milligram Oral Daily Duration: 30 Days Test Results Below is a partial list of the most recent Laboratory test results done prior to this discharge. You may have had other tests and procedures not included in this list. Please discuss all test results with your provider. RBC Available - RE (09/08/2022) RBC Unit ID - [id number] (09/08/2022) 25OH VITAMIN D (09/09/2022) ???25 OH-Vitamin D Level - 17.5 ng/mL Basic Metabolic Panel (09/11/2022) ???Sodium - 140 mmol/L???Potassium - 4.1 mmol/L???Chloride - 104 mmol/L???Bicarbonate Level - 25 mmol/L???Anion Gap - 11???Glucose Level - 90 mg/dL???BUN - 12 mg/dL???Creatinine-Blood - 0.8 mg/dL???Estimated GFR Creatinine - 82 ML/MIN/1.73 M2???Calcium - 9.1 mg/dL BUN (09/13/2022) ???BUN - 18 mg/dL Calcium Level (09/09/2022) ???Calcium - 9.3 mg/dL CBC (09/10/2022) ???WBC - 8.7 k/mm3???RBC - 3.08 m/mm3???Hgb - 8.4 Gm/dL???Hct - 28.2 %???MCV - 91.6 femtoliters???MCH - 27.3 pg???MCHC - 29.8 g/dL???Platelet Count - 230 k/mm3???RDW-SD - 59.8 femtoliters???MPV - 12.9 femtoliters???Nucleated RBC (Automated) - 0.0 #/100 WBC'S???Abs. NRBC - 0.0 k/mm3 CBC w/ Differential (09/13/2022) ???WBC - 7.6 k/mm3???RBC - 3.28 m/mm3???Hgb - 9.0 Gm/dL???Hct - 30.2 %???MCV - 92.1 femtoliters???MCH - 27.4 pg???MCHC - 29.8 g/dL???Platelet Count - 183 k/mm3???RDW-SD - 61.1 femtoliters???MPV - 13.2 femtoliters???Nucleated RBC (Automated) - 0.0 #/100 WBC'S???Abs. NRBC - 0.0 k/mm3???Abs. Neut - 5.9 k/ mm3???Abs. Lymph - 0.7 k/mm3???Abs. [place] - 0.5 k/mm3???Abs. Eo - 0.4 k/mm3???Abs. Baso - 0.1 k/mm3???Neut % - 77.3 %???Lymph % - 9.4 %???[place] % - 7.0 %???Eos % - 4.8 %???Baso % - 0.8 %???Imm Gran - 0.7%???Abs. Imm Gran - 0.1 k/mm3 COMPLEMENT C3 (09/12/2022) ???Complement C3 - 113 mg/dL COMPLEMENT C4 (09/12/2022) ???Complement C4 - 32 mg/dL Comprehensive Metabolic Panel (08/29/2022) ???Sodium - 140 mmol/L???Potassium - 4.0 mmol/L???Chloride - 103 mmol/L???Bicarbonate Level - 27 mmol/L???Anion Gap - 10???Glucose Level - 113 mg/dL???BUN - 35 mg/dL???Creatinine-Blood - 1.0 mg/dL???Estimated GFR Creatinine - 67 ML/MIN/1.73 M2???Calcium - 9.5 mg/dL???Protein, Total - 6.2 Gm/dL???Albumin - 3.3 Gm/dL???AG Ratio - 1.1???Alkaline Phosphatase - 77 units/L???AST (SGOT) - 19 units/L???ALT (SGPT) - 9 units/L???Bilirubin, Total - 0.5 mg/dL COVID-19 (NOVEL CORONAVIRUS), PCR (09/09/2022) ???COVID-19 by RT-PCR - NEGATIVE Creatinine (09/13/2022) ???Creatinine-Blood - 1.0 mg/dL???Estimated GFR Creatinine - 64 ML/MIN/1.73 M2 Electrolytes (09/13/2022) ???Sodium - 138 mmol/L???Potassium - 4.6 mmol/L???Chloride - 103 mmol/L???Bicarbonate Level - 25 mmol/L???Anion Gap - 10 FERRITIN (09/09/2022) ???Ferritin Level - 361 ng/mL FOLIC ACID (09/09/2022) ???Folic Acid Level - 11.3 ng/mL Glucose Level (09/09/2022) ???Glucose Level - 94 mg/dL Hemoglobin A1C (Monitoring) (08/28/2022) ???Hemoglobin A1C (Monitoring) - 4.9 % Hgb + Hct (09/10/2022) ???Hgb - 8.8 Gm/dL???Hct - 29.6 % HOLD BLUE TUBE (09/05/2022) ???Hold Blue Top - SPECIMEN DISCARDED AFTER 4 HOURS. HOLD GEL TUBE (09/06/2022) ???Hold Gel Top - SPECIMEN DISCARDED AFTER 1 WEEK HOLD LAVENDER TUBE (09/01/2022) ???Hold Lavender Top - SPECIMEN DISCARDED AFTER 24 HOURS. INR (09/13/2022) ???INR - 2.0???Protime (PT) - 19.8 seconds IRON & TIBC (09/09/2022) ???Iron Level - 52 mcg/dL???Iron Binding Capacity, Unsaturated - 231 mcg/dL???Iron Binding Capacity,Estimated Total - 283 mcg/dL???% Iron Saturation - 18 % Lipid Panel (08/28/2022) ???Cholesterol - 140 mg/dL???Triglycerides - 50 mg/dL???HDL Cholesterol - 46 mg/dL???LDL Cholesterol- 84 mg/dL???Non HDL Cholesterol - 94 mg/dL Magnesium Level (09/13/2022) ???Magnesium - 1.9 mg/dL Mg Level (08/30/2022) ???Magnesium - 2.2 mg/dL NT ProBNP (08/28/2022) ???Nt-Probnp - 1069 pg/mL Phosphorus Level (09/10/2022) ???Phosphorus - 4.2 mg/dL PT (INR) (09/06/2022) ???INR - 1.2???Protime (PT) - 12.8 seconds PTT (09/13/2022) ???APTT - 89.1 seconds VITAMIN B12 (09/09/2022) ???Vitamin B12 Level - 901 pg/mL Immunizations This Visit Not Given Vaccine Commentsinfluenza virus vaccine, inactivated Expectation Not Necessary Pt states they already received Flu vaccine Allergies (NKA means No Known Allergies) Cordran Tape Problems Active Problems??(8) ??hx Tobacco abuse?? Aortic stenosis?? Asthma?? atrial fibrillation?? Congestive heart failure?? hx rheumatic fever?? 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 Education Materials Below is the list of Educational Leaflet Providered with your Discharge Instructions. Using an Event Monitor?? M-TAVR Discharge Instructions?? Understanding Transcatheter Aortic Valve Replacement (TAVR)?? Understanding Transcatheter Aortic Valve Replacement (TAVR)?? Valuables and Belongings I fully understand and agree that [facility] accepts no responsibility for all my personal property including clothing, toilet articles, radios, jewelry, dentures, hearing aids, rings, money, or any other property that is in my possession or is brought to me after admission. I understand certain valuables may be placed in a hospital safe for a short period of time. I understand that the hospital is not liable for loss or damage due to accident, fire, or other natural occurrence while said property is in the safe. I accept full responsibility for any personal property that I keep with me, and will not hold the hospital responsible in case of loss or disappearance. I acknowledge that i have been encouraged to send valuables and belongings home. ?? Date for Pt to Sign Valuables/Belongings: 08/28/22 15:58:00 ?? Other Discharge Information ? Case Management Discharge Plan?? Discharge Plan?? Discharge Agency Information?? Discharge Level of Care at Discharge: Homehealth/VNA Name of Agency #1: [facility] Discharge Rx Program: Discharge Prescription Program Service Categories #1: Physical Therapy Discharge Rx Program: Discharge Prescription Program Service Comments #1: A referral has been made to [facility] to provide PT services at home. ??The agency will contact you to set up a visit. ??Please call [phone] if you do not hear fromthem within 24 hours of discharge. Discharge VNA/Hospice/Home Care: [facility] ? Pulmonary Rehab Status?? Pulmonary Rehab Discharge Status?? Respiratory Rate: 18 br/min ? Cardiac Rehab Assessment?? Cardiac Rehab Inpatient Assessment?? Comments-Education: post procedure guidelines, home activit Comments-Exercise Activity: phase 2 referral Comments-Nutrition: per RD Comments-Lipids: meds and diet Patient attending Phase II: Yes Phase II Site of Care: [facility] [address] [facility] [phone] Common Emergency Awareness Tips IS IT A STROKE? Act FAST and Check for these signs: FACE Does the face look uneven? ARM Does one arm drift down? SPEECH Does their speech sound strange? TIME Call at any sign of stroke ?? Heart Attack Signs Chest discomfort: Most heart attacks involve discomfort in the center of the chest and lasts more than a few minutes, or goes away and comes back. It can feel like uncomfortable pressure, squeezing, fullness or pain. Discomfort in upper body: Symptoms can include pain or discomfort in one or both arms, back, neck, jaw or stomach. Shortness of breath: With or without discomfort. Other signs: Breaking out in a cold sweat, nausea, or lightheaded. Remember, MINUTES DO MATTER. If you experience any of these heart attack warning signs, call to get immediate medical attention! ?? Smoking can increase your chances of developing chronic health problems and can cause harmful effects to other family members in your house. If you smoke, you are strongly encouraged to quit. Please call [facility] [employer] Link at [phone] or [phone]) or log in to [email or web address] for referrals to smoking cessation programs. ?? The National Suicide Prevention Hotline is available 20/05 if you or someone you know needs to find areason to keep living. By calling 5-789-959-Kirax (1293) you'll be connected to a skilled, trained counselor at a crisis center in your area. INPATIENT DISCHARGE INSTRUCTIONS SIGNATURE PAGE NUBIA BOND Location:[facility] Registration Date and Time:08/28/2022 13:58 EDT Primary Care Physician: Scout SAHNI, Tarik Reynoso, I NUBIA BOND, have received the above patient education materials/instructions and have verbalized understanding. If ambulance or transport services are being used I further acknowledge being givena choice of service. ?? If you need to contact me, please call me at this number: . Patient/Hair Blender Name: Patient/Hair Blender Signature: Relationship to Patient: Witness Name/Signature: Date: BuschFelicia syed: SIGN BuschFelicia syed: SIGN, SIGN, VERIFY, SIGN Vik GOLD, Michelle Solano: SIGN Event Display: Patient Education Handout Authored Date: [id number] Johan Sebastian: PERFORM Event Display: Patient Education Leaflets Authored Date: [id number] Using an Event Monitor ?? 77233 Using an Event Monitor An event monitor is a device used to record your heart???s electrical activity. It???s portable, soyou carry it with you. It helps to diagnose abnormal heart rhythms and other health conditions. It records your heart???s activity when you have symptoms. How an event monitor works An event monitor uses small sticky pads (electrodes) stuck to your chest. These connect by wires tothe monitor device. The device records the same kind of information as an electrocardiogram (ECG). But it does it for longer periods of time, usually at least 1 minute. There are two main types of event monitors: symptom event monitors and memory looping monitors. When you activate a symptom event monitor, it records the information from the heart???s electrical signal for a few minutes. A memory looping monitor does the same thing. However, it also records the information from a few minutes before the device was activated, so data from before, during and after thesymptom will be captured. Most of these devices can send the information right to your healthcare provider. Others require that the data be downloaded. Some event monitors do not use wires. Instead, the monitor is placed directly on the skin to recordheart activity. ?? Why an event monitor is used A healthcare provider may think that you have an abnormal heart rhythm based on your medical history, even if your ECG looks normal. Some abnormal heart rhythms happen less often and only for a short time. In this case, an ECG is not likely to waste picker the abnormal heart rhythm. An event monitor may be a better option for you. That way, you can record your heart???s electrical activity when you are having symptoms. The event monitor can also help show what type of abnormal rhythm you have.??It's best for rhythm abnormalities that happen now and then or that are caused by certain symptoms.?? You may need to wear an event monitor if: ??? Your heartbeat is too fast, too slow, or irregular ??? You have symptoms, such as palpitations, dizziness, or fainting, or feel your heart is beating too hard or skipping a beat ??? Your healthcare provider wants to check how well??the??treatment for an abnormal heart rhythm is working. You may have to wear a monitor following an ablation or cardioversion to see that your heart is still in a normal rhythm following these types of treatments. ??? You have had an open heart surgery,such as a heart valve replacement or repair or bypass grafting. The heartmuscle can become irritated and more likely to have irregular heart rhythms as you recover at home. ?? Risk of using an event monitor Event monitors are generally very safe. They don???t cause any pain. In some cases, the sticky patches used to attach the sensors to your chest can cause skin irritation and blistering. Many event monitor companies have alternative electrodes that are better for sensitive skin. Contact your healthcare provider if you experience skin irritation. ?? Getting your event monitor Your healthcare provider will show you how to use your event monitor. Different types of event monitors work in different ways. Memory looping monitors have sensors that attach to your chest using sticky patches. Wires connect these sensors to a monitor, which you can usually put on your belt or in your pocket. Before you put your sensors on your chest, your skin should be free of oils, creams, and sweat. Clean your skin before putting them on. You may need to shave the area before applying. A lead based paint technician will show you how to place the electrodes or the monitor may be mailed to your home with instructions for self application. Follow all instructions about exercise. Sweat can make the sensors come off. If you have a cardiac memory looping monitor, change your sensors as instructed. You may need to wear your event monitor for several days or up to a month. You will also need to keep a diary while using your event monitor. Record any symptoms when they happened, and note what you were doing at the time. ?? When it???s time to record an event ??? When you have a symptom, push the button to start recording. (Some start recording automatically when an abnormal rhythm is detected.) ??? Stop moving. This will help the device get a good recording. The device should record for several minutes. ??? After the event, write down the time, your symptoms, and what you were doing when the event happened. ?? After recording an event For some event monitors, you will need to send your recordings over the phone to your healthcare provider. Someone will review your recording. In some cases, you may need to go see your healthcare provider. ?? Some electronic devices can disrupt the monitor. If you can, avoid using these during the time you???re wearing the monitor. But when you need to use an electronic device, keep it at least 6 inches away from the monitor. This includes things such as: ??? Cell phones ??? Electric blankets ??? Electric razors ??? Electric toothbrushes ??? iPods ??? Magnets ??? Metal detectors ??? Microwave ovens Note: Large motors or construction equipment should also not be used near the monitor. They can cause interference and??vibrations that??can be mistaken as irregular heart rhythms by the monitor. ? Treatment after an event monitor After a few readings, you may be able to stop wearing your event monitor. Your healthcare provider may use those readings to start your treatment. In some cases,??you may need more testing. Follow-up tests might include: ??? Exercise stress test. This show how your heart responds to exercise??and howwell it handles increased oxygen demands. ??? Tilt-table test. This may be done if you have had fainting. ??? Electrophysiological testing. This invasive procedure can give more information about your heart???s electrical signal. ??? Echocardiogram. This is done to evaluate the structure and pumping function of your heart??and its valves. ?? Last Reviewed Date: 2019 ?? [id number] [employer]. All rights reserved. This information is not intended as a substitute for professional medical care. Always follow your healthcare professional's instructions. ??Naomy TUCKER, Johan Pham: PERFORM Event Display: Patient Education Leaflets Authored Date: [id number] M-TAVR Discharge Instructions ?? 195 TAVR Discharge Instructions ?? Here is information related to your condition to help you when you get home. ?? Call the cardiac surgery office if you experience any of the following: Temperature of 101 or above, chills, sweating Changes in breathing, chest pain, abnormal pain, dizziness, fainting, change in pulse, pulse rate or palpitations, nausea, vomiting. Any bleeding or swelling at the incision site or if a hard lump forms. Any drainage, redness or tenderness or edges pulling apart at your surgical incision site. Gain more than 2-3 pounds in one day or 5 pounds in 1 week. Call your doctor if you experience any new rash, cough, dizziness, leg cramps, or blurred vision. ?? Call 911 if: You develop a new onset of weakness, numbness, loss of vision, slurred speech or any concern for a stroke or mini-stroke. If you develop numbness, tingling, loss of sensation, and or coolness to your arms or legs. If you develop chest pain or discomfort that is not relieved with rest. If profuse bleeding (does not stop in 30 minutes) occurs hold pressure to the site and call 911, [address] yourself to the nearest hospital. ?? FOLLOW-UP A follow up appointment should be made with your doctor. If you do not have an appointment scheduled already, make an appointment when you get home. Follow up care is important; it is strongly encouraged for you to keep your appointment. You may have more than one appointment, one with your metal cans supervisor and one with your primary care doctor and one with the cardiac surgeon. Follow up with your carton marker machine and/or cardiac surgeon in 7 to 14 days or as directed. Follow up with your primary care provider in 2-3 weeks or as recommended. Follow up with your primary metal cans supervisor in 4-6 weeks or as recommended. If you do not have these appointments scheduled already, make an appointment when you get home. If you have any questions, please call the cardiac surgery office at [phone]. You will receive a booklet and card specific to the valve you received. This card should be carriedwith you at all times. ?? POST OPERATIVE DISCHARE INSTRUCTIONS ?? Bathing You can take a shower after you are discharged from the hospital. If you are unsteady on your feet use a shower chair. Avoid soaking in a tub for at least 4 weeks after the operation. You may need assistance with showering the first few days. ?? Incision Care Look at your incision site (groin and/or chest wall) every day until it is completely healed. You may see bruising, that is common after the procedure. Check your incision daily for drainage, redness, increased tenderness or edges pulling apart. Keep your incision clean and dry. Use only soap and water to cleanse the area around the incision. Once the incision is healed you may wash over the incision with a soft wash cloth and soap and water. Avoid using perfumed soaps or body washes, lotions, creams, oils, or ointments on your incision. This may irritate your incision and put you at risk for infection. ?? Activity Review the written materials given to you by the Cardiac Rehabilitation staff for your specific exercise program. No heavy lifting over 10 pounds (gallon of milk) for 1 week following the surgery. Gradually increase your activity. This will promote wound healing. Remember to alternate periods ofactivity with periods of rest. It is important to continue to do the coughing and deep breathing exercises to help prevent breathing complications. Take your temperature every day. Weigh yourself at the same time every morning. ?? Driving You shouldn???t drive for at least 4 weeks from the date of discharge or if you are taking prescription pain medication Always wear a seat belt ?? Sexual Relations You may resume sexual activity as soon as you feel comfortable, usually 4 weeks after your surgery. ?? Emotions It is common for people to feel more emotional or have difficulty concentrating or remembering after major surgery. These emotions may be the result of anesthesia, medications, or stress. These feelings are generally temporary and usually go away as you get back to your normal routine and activities. ?? Pain You may have some incisional discomfort during activity. You will be given prescription medication for the pain if you need it. ? Heart and Vascular Healthy Living ?? You can make lifestyle changes that can help lower your risk for heart and vascular disease. The following information can help you get started or help maintain your current lifestyle. ?? Diet Eat a low fat, low cholesterol diet. Limit the amount of salt in your diet as well as caffeine and alcohol use. Eating 3 to 4 small meals daily may be better tolerated than 1-2 large meals daily. Monitor your weight daily to insure that you are not gaining weight; same time, same scale. ?? Exercise Routine regular or prescribed exercise is strongly encouraged Avoid strenuous exercise after meals. ?? Smoking If you smoke, you are strongly encouraged to quit Smoking can increase blood pressure, decrease exercise tolerance and increase the tendency for blood to clot, decrease HDL (good) cholesterol and creates a higher risk for having a heart attack, stroke or other vascular events. If you smoke and are ready to quit, please let us know; referrals to smoking cessation programs areavailable. ?? Lowering your cholesterol Diet and exercise may not lower your cholesterol enough. Cholesterol medicines may help prevent further cholesterol buildup in the arteries. Talk to your doctor about taking medicine for high cholesterol. ?? High blood pressure and diabetes If you have high blood pressure or diabetes, continue with your prescribed treatments. These healthproblems if not controlled can put you at risk for having a heart attack, stroke, or other vascular events. ?? Stress Learn to manage stress with ways that fit your needs. Some stress relieving activities include meditation, deep breathing techniques and exercise. Stress that isn???t managed can prolong healing and cause other health problems. If you need help managing stress talk to your caregiver for additional resources. ? Event Display: Hemodynamic Procedure Report Authored Date: Paula Richards RN: PERFORM Event Display: Patient Education Leaflets Authored Date: [id number] Understanding Transcatheter Aortic Valve Replacement (TAVR) ?? 54980 Understanding Transcatheter Aortic Valve Replacement (TAVR) Transcatheter aortic valve replacement (TAVR) is a procedure to replace a diseased aortic valve with a new tissue or biologic valve. The old heart valve is not removed but works like an anchor for thenew heart valve. This procedure is done through small incisions using a long thin tube (catheter), X-rays, and ultrasound. Transcatheter aortic valve replacement is also known as transcatheter aortic valve implantation (BILLIE). The aortic valve directs blood flow from the heart (left ventricle) into the aorta (large blood vessel) and carries blood to the rest of the body. In some people, the valve becomes scarred and stiff and has trouble opening. This is a condition called aortic stenosis. The heart then has to work harderto push blood through the narrowed heart valve to the rest of the body. Over time, the extra work can cause the heart muscle to weaken. This may lead to symptoms, such as tiredness, shortness of breath, chest pain, and fainting. It can lead to heart failure. In TAVR, the catheter is usually placed in the femoral artery in your groin. Sometimes, the catheter is placed through the axillary artery near your armpit or the carotid artery in your neck. Occasionally, the catheter is placed through a small incision in your chest underneath the collarbone or an incision between the ribs. The doctor uses the catheter to bring the new valve to your heart. The new valve is made of cow or pig heart tissue and is mounted on a metal frame. The new valve helps improveblood flow from the heart to the rest of the body. Reasons for TAVR TAVR may be a option for some people instead of surgical aortic valve replacement (SAVR). This willbe based on age, surgical risks, how severe your aortic stenosis is, other medical factors, and other cardiac issues. Your healthcare team will determine if TAVR is an option for you. ?? Risks and possible complications TAVR is very effective in most people. However, all medical procedures carry some risks and possible complications. Some common risks of TAVR include: ??? Bleeding or the need for a blood transfusion ??? Anemia (not enough red blood cells in the blood) ??? Blood clots ??? Infection ??? Collection of fluid around your heart (pericardial effusion) ???Confusion or memory problems ??? Damage to the heart ??? Damage to your blood vessels ??? Failure ofthe new valve ??? Heart attack ??? Heart rhythm problems that may need a pacemaker ??? Kidney damageor failure ??? Lung puncture ??? Stroke ??? Risks of anesthesia (including ) ??? Rarely, the new heart valve can move out of position after it has been implanted ??? Leaking of blood in or around the new heart valve You may have other risks, depending on your medical condition. Be sure to talk with your healthcareprovider if you have any concerns before the procedure. ?? Life after a heart valve replacement ??? A new heart valve can help ease symptoms you may have had.These include pain or pressure in your chest, shortness of breath, and tiredness. ??? After the surgery, you will need to take aspirin or other blood-thinning medicine every day. You will likely also need to take an antiplatelet medicine for a certain period of time. These medicines help prevent bloodclots in your new valve. ??? You will need to take antibiotics before you have dental work and certain other medical procedures, as prescribed by your healthcare provider. This is to help prevent bacteria from harming your new heart valve. ??? Your healthcare provider may tell you to make some lifestyl e changes to protect your heart and make it stronger. These include exercise, quitting smoking, and keeping a healthy weight. ??? After your recovery from TAVR, you may be able to return to regular activities. You should notice improvement in the symptoms from your heart valve disease. Be sure to talkto your healthcare provider before starting any exercise program. ?? Last Reviewed Date: 2022 ?? [id number] [employer]. All rights reserved. This information is not intended as a substitute for professional medical care. Always follow your healthcare professional's instructions. ??BHSPowerscribe , CIS S: TRANSCRIBE Corey Villalta DO: Harmeet Salmeron MD: VERIFY Event Display: Result: Authored Date: [id number] ECG Gated Cardiac CTA, Chest CTA(CT TAVR Heart, CT TAVR Angio Chest) INDICATION: Reason: Pre-TAVR evaluation. Patient with history of severe and symptomatic aortic stenosis, remote mechanical mitral valve replacement tricuspid valve repair. History of rheumatic fever. HISTORY: Aortic stenosis. Pre-transcatheter aortic valve replacement (TAVR) evaluation. Assess aortic annulus and coronary ostial positions, thoracic aorta and upper extremity central arteries for arterial access. TECHNIQUE: TAVR protocol. A [employer] [place] scanner with 16 cm wide detector was employed. Automatic tube modulation based on attenuation from AP and lateral topograms was used to optimize exposure parameters. Contrast bolus tracking was used for timing. First, single-beat cardiac-gated CTA of the heart was performed using ECG-based dose modulation to limit dose. Next, non-gated CT angiograms of the chest, and of the abdomen/pelvis/groins were performed using the same contrast bolus. In addition to standard axial angiographic reconstructions, 3-D multiplanar and MIP reconstructions were obtained from the heart, chest, and abdomen/pelvis studies on separate workstations, under direct radiologist supervision, and were saved to the [facility] PACS. The patient received 70 cc Omnipaque [address] angiogram examination of the abdomen/pelvis will be dictated separately. Radiation dose parameters: Total DLP for all the examinations combined including the CTA abdomen/pelvis was CTDIvol Body: 25.58 mGy, DLP Body: 1560 mGy*cm. Comparison: None. FINDINGS: Technical: The image quality was good. The contrast enhancement was good. Aortic Valve: The aortic valve was calcified and stenotic. Aortic Annulus: The aortic annulus was defined as the plane passing through the carla of three aortic valve cusps. Annulus measurements in short and long axes were obtained at varying phases of the heart cycle during systole determined as percentages of RR interval. Perpendicular distances from this plane to the closest portion of the right coronary (RCA) and the left main coronary (LM) ostia were also measured. Image processing performed by [facility]. Phase Annulus Dimensions, Area, Perimeter; RCA; LM. 35% 27.5 x 20.1 mm, 430 mm^2, 80 mm; 20 mm; 16 mm. 65% 26.5 x 20.0 mm, 418 mm^2, 78 mm; 19 mm; 16 mm. Aortic annular calcification: None. Mitral Annulus: Status post mechanical mitral valve replacement there is moderate calcification of the mitral annulus. Tricuspid valve: Annuloplasty ring. CT ANGIOGRAPHY (Arterial dimensions are minimal luminal diameters unless otherwise indicated): Thoracic Aorta: The thoracic aorta is normal in caliber. Classic arch anatomy. No evidence of ulcerative plaque. Aortic dimensions are as follows: Sinuses of Valsalva: 34 x 34 x 32 mm, outer diameter. Sinotubular junction: 29 x 28 mm, inner diameter. Ascending (maximum): 37 x 35 mm, outer diameter. Descending (maximum): 25 x 23 mm, outer diameter. Descending (minimum): 21 x 20 mm, inner diameter. Great Vessels: Brachiocephalic artery: Minimum diameter 12 mm. Minimal calcification near the origin. Right subclavian artery: Minimum diameter 7 x 7 mm. Mild calcified plaque. Right axillary artery: Minimum diameter 7 x 7 mm. Left subclavian artery: Minimum diameter 9 x 6 mm. Mild calcified plaque. Left axillary artery: Minimum diameter 7 x 7 mm. Proximal right common carotid artery: Mildly tortuous. Normal caliber. Proximal left common carotid artery: Moderately tortuous. Normal caliber. Vertebral arteries: Pulmonary arteries: Marked dilation of the main pulmonary trunk measuring up to 4.5 cm consistent with pulmonary arterial hypertension.Although this examination was not tailored for evaluation of pulmonary arteries, no evidence of filling defect. Additional Findings: Lines and Tubes: None Trachea and Airways: Patent without evidence of tracheal or endobronchial lesion. Lungs and Pleura: Right greater than left small bilateral pleural effusion small effusion along the right horizontal fissure as well as additional diffuse intralobular septal thickening and confluent groundglass opacities with upper lobe predominance in keeping with pulmonary edema. No pneumothorax. Mediastinum and Lymph nodes: Few enlarged mediastinal and right hilar lymph nodes. For example, the largest right paratracheal node measuring up to 1.8 cm in greater short axis (image 46 series 301). Enlarged right suprahilar node measuring up to 1.5 cm in short axis (image 52 series 301). Moderate car diomegaly including biatrial enlargement. There is moderate calcification within the wall of the left atrium, may reflect prior intervention/maze procedure. Mild coronary calcification. No pericardial effusion. No esophageal abnormalities. Chest wall and Soft tissues: No acute abnormality. Normal thyroid. Small right- sided fatty Bochdalekhernia. Upper abdomen: Please see separate CT angiogram abdomen report. Bones: No acute findings. Moderate degenerative disease in the mid to lower thoracic spine with mildround back deformity. Median sternotomy. IMPRESSION: 1. Aortic valve annular dimensions, coronary ostial distances, and arterial diameters as above. 2. Aortic annular calcification: None. 3. Small bilateral pleural effusions and widespread groundglass opacities may be seen in setting of pulmonary edema and dependent atelectasis. However, there are a few enlarged mediastinal and hilar lymph nodes, and superimposed infectious etiology or a chronic interstitial/inflammatory component is not excluded. 4. Marked dilation of the main pulmonary artery measuring up to 4.5 cm consistent with pulmonary arterial hypertension. 5. Cardiomegaly with biatrial enlargement. 6. Mechanical mitral valve and tricuspid annuloplasty ring. I have personally reviewed the images and I agree with this report. WSN: [id number] Ordering Physician: Eduardo Galeano Dictated By: Corey Villalta DO Dictated Date/Time: 09/05/22 1:51 pm Reviewed By: Harmeet Viramontes MD Signed By: Harmeet Viramontes MD Signed Date/Time: 09/05/22 1:56 pm Transcribed By: DIEGO Transcribed Date/Time: 09/05/22 1:46 pmBHSPowerscribe , CIS S: TRANSCRIBE Corey Villalta DO: SIGN Harmeet Viramontes MD: VERIFY Event Display: Result: Authored Date: [id number] ECG Gated Cardiac CTA, Chest CTA(CT TAVR Heart, CT TAVR Angio Chest) INDICATION: Reason: Pre-TAVR evaluation. Patient with history of severe and symptomatic aortic stenosis, remote mechanical mitral valve replacement tricuspid valve repair. History of rheumatic fever. HISTORY: Aortic stenosis. Pre-transcatheter aortic valve replacement (TAVR) evaluation. Assess aortic annulus and coronary ostial positions, thoracic aorta and upper extremity central arteries for arterial access. TECHNIQUE: TAVR protocol. A [employer] [place] scanner with 16 cm wide detector was employed. Automatic tube modulation based on attenuation from AP and lateral topograms was used to optimize exposure parameters. Contrast bolus tracking was used for timing. First, single-beat cardiac-gated CTA of the heart was performed using ECG-based dose modulation to limit dose. Next, non-gated CT angiograms of the chest, and of the abdomen/pelvis/groins were performed using the same contrast bolus. In addition to standard axial angiographic reconstructions, 3-D multiplanar and MIP reconstructions were obtained from the heart, chest, and abdomen/pelvis studies on separate workstations, under direct radiologist supervision, and were saved to the [facility] PACS. The patient received 70 cc Omnipaque [address] angiogram examination of the abdomen/pelvis will be dictated separately. Radiation dose parameters: Total DLP for all the examinations combined including the CTA abdomen/pelvis was CTDIvol Body: 25.58 mGy, DLP Body: 1560 mGy*cm. Comparison: None. FINDINGS: Technical: The image quality was good. The contrast enhancement was good. Aortic Valve: The aortic valve was calcified and stenotic. Aortic Annulus: The aortic annulus was defined as the plane passing through the carla of three aortic valve cusps. Annulus measurements in short and long axes were obtained at varying phases of the heart cycle during systole determined as percentages of RR interval. Perpendicular distances from this plane to the closest portion of the right coronary (RCA) and the left main coronary (LM) ostia were also measured. Image processing performed by [facility]. Phase Annulus Dimensions, Area, Perimeter; RCA; LM. 35% 27.5 x 20.1 mm, 430 mm^2, 80 mm; 20 mm; 16 mm. 65% 26.5 x 20.0 mm, 418 mm^2, 78 mm; 19 mm; 16 mm. Aortic annular calcification: None. Mitral Annulus: Status post mechanical mitral valve replacement there is moderate calcification of the mitral annulus. Tricuspid valve: Annuloplasty ring. CT ANGIOGRAPHY (Arterial dimensions are minimal luminal diameters unless otherwise indicated): Thoracic Aorta: The thoracic aorta is normal in caliber. Classic arch anatomy. No evidence of ulcerative plaque. Aortic dimensions are as follows: Sinuses of Valsalva: 34 x 34 x 32 mm, outer diameter. Sinotubular junction: 29 x 28 mm, inner diameter. Ascending (maximum): 37 x 35 mm, outer diameter. Descending (maximum): 25 x 23 mm, outer diameter. Descending (minimum): 21 x 20 mm, inner diameter. Great Vessels: Brachiocephalic artery: Minimum diameter 12 mm. Minimal calcification near the origin. Right subclavian artery: Minimum diameter 7 x 7 mm. Mild calcified plaque. Right axillary artery: Minimum diameter 7 x 7 mm. Left subclavian artery: Minimum diameter 9 x 6 mm. Mild calcified plaque. Left axillary artery: Minimum diameter 7 x 7 mm. Proximal right common carotid artery: Mildly tortuous. Normal caliber. Proximal left common carotid artery: Moderately tortuous. Normal caliber. Vertebral arteries: Pulmonary arteries: Marked dilation of the main pulmonary trunk measuring up to 4.5 cm consistent with pulmonary arterial hypertension.Although this examination was not tailored for evaluation of pulmonary arteries, no evidence of filling defect. Additional Findings: Lines and Tubes: None Trachea and Airways: Patent without evidence of tracheal or endobronchial lesion. Lungs and Pleura: Right greater than left small bilateral pleural effusion small effusion along the right horizontal fissure as well as additional diffuse intralobular septal thickening and confluent groundglass opacities with upper lobe predominance in keeping with pulmonary edema. No pneumothorax. Mediastinum and Lymph nodes: Few enlarged mediastinal and right hilar lymph nodes. For example, the largest right paratracheal node measuring up to 1.8 cm in greater short axis (image 46 series 301). Enlarged right suprahilar node measuring up to 1.5 cm in short axis (image 52 series 301). Moderate car diomegaly including biatrial enlargement. There is moderate calcification within the wall of the left atrium, may reflect prior intervention/maze procedure. Mild coronary calcification. No pericardial effusion. No esophageal abnormalities. Chest wall and Soft tissues: No acute abnormality. Normal thyroid. Small right- sided fatty Bochdalekhernia. Upper abdomen: Please see separate CT angiogram abdomen report. Bones: No acute findings. Moderate degenerative disease in the mid to lower thoracic spine with mildround back deformity. Median sternotomy. IMPRESSION: 1. Aortic valve annular dimensions, coronary ostial distances, and arterial diameters as above. 2. Aortic annular calcification: None. 3. Small bilateral pleural effusions and widespread groundglass opacities may be seen in setting of pulmonary edema and dependent atelectasis. However, there are a few enlarged mediastinal and hilar lymph nodes, and superimposed infectious etiology or a chronic interstitial/inflammatory component is not excluded. 4. Marked dilation of the main pulmonary artery measuring up to 4.5 cm consistent with pulmonary arterial hypertension. 5. Cardiomegaly with biatrial enlargement. 6. Mechanical mitral valve and tricuspid annuloplasty ring. I have personally reviewed the images and I agree with this report. WSN: [id number] Ordering Physician: Eduardo Galeano Dictated By: Corey Villalta DO Dictated Date/Time: 09/05/22 1:51 pm Reviewed By: Harmeet Viramontes MD Signed By: Harmeet Viramontes MD Signed Date/Time: 09/05/22 1:56 pm Transcribed By: DIEGO Transcribed Date/Time: 09/05/22 1:46 pm Event Display: Hemodynamic Procedure Report Authored Date: ALEXANDREA Knutson S: TRANSCRIJodie Morales MD: VERIFY Event Display: Result: Authored Date: [id number] CT TAVR Angio Abdomen and Pelvis INDICATION: Reason: Pre-TAVR; Clinical Question(s): Pre-TAVR; Special Instructions: please use fast CT scanner and low dose protocol. thanks! , Pre-TAVR COMPARISON: None. TECHNIQUE: Spiral CTA was performed from the diaphragm through the proximal lower extremities after the intravenous administration iodinated contrast. cc of was administered intravenously. Volume rendered, maximum intensity projection, and curved planar reformat 2-D and 3-D angiographic projections ofthe data set were obtained and reviewed on an independent workstation, with images saved for review. Weight-based protocol using automatic tube modulation was used to optimize exposure parameters. RADIATION DOSE PARAMETERS: VASCULAR FINDINGS: Minimum aortic and iliofemoral luminal measurements are as follows: Aorta: 1.4 x 1.3 cm. Right common iliac: 0.8 x 0.8 cm. Right external iliac: 0.6 x 0.6 cm. Right common femoral: 0.7 x 0.5 cm. Left common iliac: 0.8 x 0.8 cm. Left external iliac: 0.8 x 0.7 cm. Left common femoral: 0.6 x 0.6 cm. NONVASCULAR FINDINGS: Visualized Chest: Please see separately submitted report of CTA chest and heart for findings above the diaphragm and additional preoperative measurements. Diaphragm: Normal. Liver: Focal hypoattenuation adjacent to falciform ligament likely represents fat deposition. Gallbladder: Distended gallbladder without evidence of acute cholecystitis. Bile ducts: No biliary ductal dilation. Spleen: Normal. Pancreas: Normal. Adrenal glands: Multiple indeterminate nodules within the left adrenal gland measuring 1.4 cm, 1.4 cm, and 1.6 cm (series 301 images 108, 110, 111). These are probably benign in the absence of a history of malignancy. One year follow- up adrenal protocol CT could be considered. Comparison with prior studies, if anything can be obtained, would be useful to document stability. Kidneys and ureters: No hydronephrosis, stones, or suspicious masses. Bladder: Normal. Reproductive organs: Unremarkable. Stomach, small bowel, and large bowel: There is evidence of prior gastric sleeve procedure without complication. Moderate juxta probably duodenal diverticulum. Small bowel loops are normal in course and caliber without evidence of obstruction. Mild distal colonic diverticulosis without evidence of acute diverticulitis. Appendix: Normal. Peritoneum and retroperitoneum: No ascites or pneumoperitoneum. No omental or mesenteric lesions. Lymph nodes: No enlarged lymph nodes. Abdominal and pelvic wall: Small fat-containing umbilical hernia. Bones: Mild multilevel degenerative changes throughout the spine. No acute fracture or suspicious lesion. IMPRESSION: 1. Preoperative measurements for TAVR provided above. Please see separately submitted report of CTA chest and heart for findings above the diaphragm and additional preoperative measurements. 2. Multiple indeterminate left adrenal nodules, the largest measuring 1.6 cm, probably benign. Correlation with prior imaging would be useful to determine stability. Biochemical evaluation could be considered, if indicated clinically. One-year follow-up adrenal protocol CT can also be considered for more definitive characterization. WSN: [id number] Ordering Physician: Eduardo Galeano Dictated By: Jodie Hummel MD Dictated Date/Time: 09/04/22 2:40 pm Reviewed By: Jodie Hummel MD Signed By: Jodie Hummel MD Signed Date/Time: 09/04/22 2:40 pm Transcribed By: DIEGO Transcribed Date/Time: 09/04/22 2:29 pm Event Display: Cardiac Rhythm Strips Authored Date: Event Display: Cardiac Rhythm Strips Authored Date: Event Display: Outside Images Echo Images acquired from non-[facility] facility Demographics Patient Name ART GONZALEZ Gender Female Corporate [facility] [id number] Race Facility [facility] [id number] BSA 1.68 m2 Date of 1955 Age 66 year(s) Accession Number [id number] Procedure Procedure Type Outside Images:Outside Images Echo Cardiac catheterization study Event Display: Cardiac Busher Helper Report Authored Date: Cardiac Diagnostic Report Demographics Patient Name ART [place] Female [employer] [facility] [id number] [employer] Facility [facility] [id number] Room Number M710 Height 64.96 inches Date of 1955 Weight 161.16 pounds Age 66 year(s) BSA 1.8 m2 Accession Number [id number] BMI 26.85 kg/m2 Referring Physician Lena Pacheco Date of Study 09/03/2022 Javed Nelson MD Performing Physician Eduardo Galeano MD Fellow Josiah Hightower Interventional Physician Procedure Procedure Type Diagnostic procedure:Coronary Angiography, RHC, LHC ACC Diagnostic Catheterization Status:Urgent Indications Indications: Dyspnea/SOB and CHF. Clinical History Admission Medications + +------+--------+ + + +---------+ !Medication !Dosage!Times !Last !Last !Administered !Comments ! ! ! !Per Day !Delivery !Delivery ! ! ! ! ! ! !Date !Time ! ! ! + +------+--------+ + + +---------+ !Warfarin ! ! ! ! ! ! ! + +------+--------+ + + +---------+ !Calcium ! ! ! ! ! ! ! !Channel ! ! ! ! ! ! ! !Mary ! ! ! ! ! ! ! + +------+--------+ + + +---------+ !Statin (any) ! ! ! ! ! ! ! + +------+--------+ + + +---------+ Clinical Evaluation Leading to Procedure - The patient's CAD presentation was assessed as: Symptom unlikely to be ischemic. - There were no anginal symptoms. Anti-anginal medications were prescribed during the past two weeks. The medications are: Beta Blockers and Ca channel Blockers. - The patient was newly diagnosed with a heart failure condition. Heart failure type: Diastolic. - The patient's heart failure status was assessed as NYHA Class IV, with CHF symptoms of KRAUS ACC Risk Factors The patient risk factors include:treated and controlled hypertension, chronic lung disease, last creatinine: 1.2 mg/dl, creatinine clearance: 53.94 ml/min, prior valve surgery/procedure, renal failure, former tobacco use and prior heart failure. Additional Clinical History:66F with a history of rheumatic heart disease s/p mechanical MVR (29mm [place]), TV repair, MAZE procedure, amiodarone lung toxicity, HTN, hyperlipidemia who presents with CHF and severe aortic stenosis by echocardiography. Procedure Data Procedure Date Date: 09/03/2022tart: 18:12End: 19:15 The procedure was explained in detail to the patient. Risks, complications and alternative treatments were reviewed. Written consent was obtained. Entry Locations - Retrograde Percutaneous access was performed through the Right Radial artery (Primary location). A 6 Fr sheath was inserted. Hemostasis was successfully obtained using TR Band. Closure Comments: 12cc's. - Antegrade Percutaneous access was performed through the Right Brachial vein. A 5 Fr sheath was inserted. Hemostasis was successfully obtained using Manual Compression. Procedure Medications - Versed (Midazolam) I.V. 1 mg. - Fentanyl I.V. 50 mcg. - Lidocaine 2% S.C. Right Antecubital 5 ml. - Nitroglycerin I.A. 200 mcg. - Versed (Midazolam) I.V. 0.5 mg. - Fentanyl I.V. 25 mcg. - Heparin I.V. 5000 units. - Nitroglycerin I.A. 200 mcg. Sedation: My intra-service moderate sedation time was: from 1822 to 1912. Refer to procedural log for detailed chronological information. Contrast Material - Omnipaque 30 ml Diagnostic Catheters - [id number] BALLOON WEDGE PRESSURE CATHETERwas used for: Right heart catheterization. - A5F JR4 INFINITI CATHETERwas used for: Left heart catheterization. - A5F JR4 INFINITI CATHETERwas used for: Right coronary angiography. - A5F JL 3.5 INFINITI CATHETERwas used for: Left coronary angiography. Fluoroscopy Time: Diagnostic: 15:54 minutes. Total: 15:54 minutes. Fluoroscopy Dose: Diagnostic: 951 mGy. Total: 951 mGy. Dose Area Product:Diagnostic: 57097 mGy/cm2. Total: 97605 mGy/cm2. Dose Area Product:Diagnostic: [id number] ??Gy/m2. Total: 9559.5397598883924 ??Gy/m2. Procedure Narrative Using ultrasound micropuncture, we placed a 5F sheath in right basilic vein and a 6 Swedish slender sheath in the right radial artery. We advanced a [place] to the left PA to obtain hemodynamics. We needed a Glidewire to traverse the tricuspid ring and a steel core to achieve wedge position. We crossed the aortic valve with a JR4 and straight wire. We obtained simultaneous LV and wedge pressures. We performed a pullback gradient. We performed coronary angiography with a JR4 and a JL 3.5. We closed the arteriotomy with a regular TR band. We held manual pressure over the venotomy. Angiographic Findings Cardiac Arteries and Lesion Findings LMCA: Normal. LAD: Minimal luminal irregularities. LCx: Lesion in Prox CX: 30% stenosis 14 mm length. RCA: Lesion in Prox RCA: 30% stenosis 33 mm length. Hemodynamics Condition: Rest O2 Consumption: Estimated: 166.93Heart Rate: 68 bpm Oxygen Saturation +--------+-----+----+ +---+ + !Location!pCO2 !pO2 !% Saturation!Hgb!O2 Content! +--------+-----+----+ +---+ + !AO ! ! !95 !7.7! ! +--------+-----+----+ +---+ + !PA ! ! !57 !7.7! ! +--------+-----+----+ +---+ + !PCW ! ! !81.4 !7.7! ! +--------+-----+----+ +---+ + Pressures (mmHg) +-----+ + !Site !Pressure ! +-----+ + !RA !06/04 (6) ! +-----+ + !PCW ! (16) ! +-----+ + !PA !7022 (42) ! +-----+ + !LV !138/0 ,13 ! +-----+ + !PA ! (43) ! +-----+ + !LV !135/0 ,15 ! +-----+ + !PCW ! (20) ! +-----+ + !PCW ! (23) ! +-----+ + !LV !146/5 ,14 ! +-----+ + !PCW ! () ! +-----+ + !LV !146/4 ,15 ! +-----+ + !PCW ! () ! +-----+ + !LV !148/5 ,15 ! +-----+ + !PCW ! () ! +-----+ + !LV !147/5 ,14 ! +-----+ + !PCW ! () ! +-----+ + !AO !117/41 (70)! +-----+ + !LV !146/4 ,13 ! +-----+ + Cardiac Output +------+ + +-------+ !Method!CO (l/min)!CI (l/min/m2)!SV (ml)! +------+ + +-------+ !Kenna !4.2 !2.3 !61.6 ! +------+ + +-------+ Valve Gradients and Areas +------+----+----+----+-----+------+------+ !Valve !Peak!Mean!Area!Index!Flow !Source! +------+----+----+----+-----+------+------+ !Aortic!29 !37 !0.77!0.43 !207.92!Kenna ! +------+----+----+----+-----+------+------+ !Aortic!29 !37 ! ! ! ! ! +------+----+----+----+-----+------+------+ !Mitral! !8 !1.28!0.71 !136.05!Kenna ! +------+----+----+----+-----+------+------+ !Mitral! !8 ! ! ! ! ! +------+----+----+----+-----+------+------+ Shunts Oxygen Values O2 Capacity 104.72 O2 Consumption 166.93 Flows (l/min) Qs 4.2 Interventional Procedure Conclusions Diagnostic Summary Congestive heart failure Aortic stenosis-severe by echocardiography with mean gradient of 37 mmHg Status post mechanical mitral prosthesis-29 [place] Alex, and tricuspid repair with ring Right basilic vein, 5 Swedish slender-closed with manual pressure Right radial artery, 6 Swedish slender-closed with regular TR band Right heart catheterization Coronary angiography with left heart catheterization Simultaneous wedge to LV pressure HEMODYNAMICS RA 7 PA 80/30 (42) WP 25 CO/CI (Kenna) 4.2/2.3 PVR 4 diaz units LVEDP 18 mmHg Mechanical mitral prosthesis-bileaflet tilting disc with closed angle of 131 degrees and opening angle of 17 degrees. mean gradient of 8mmHg across the prosthesis (wedge to LV) Aortic valve - mild/moderate calcification w/ restricted leaflet motion. peak-peak gradient of 30mmHg CORONARY ANGIOGRAPHY Right dominant coronary circulation Mild RCA disease Mild LCx disease Minimal LAD disease The patient presents with CHF and severe aortic stenosis on echocardiography. She has prior mechanical mitral valve replacement with tricuspid valve repair. Hemodynamics show elevated left heart filling pressures. There is a mean gradient of 8mmHg across the mechanical mitral valve with preserved cardiac output. She has pulmonary venous hypertension. Coronary angiography shows mild CAD. We should continue work-up for TAVR vs SAVR. Diagnostic Recommendations 1. Resume heparin 4 hours after TR band is off, no bolus 2. TAVR protocol CTA 3. Cardiac surgical consult [facility] Diagnostic Recommendations: Other cardiac therapy without CABG or PCI. Signatures Coronary Tree Dominance: Right Event Display: Cardiac Busher Helper Report Authored Date: Admission evaluation note Raffy SAHNI, Shilpa Dinh: MODIFY, PERFORM Event Display: Admission Note Authored Date: Patient: ??STEVIENUBIA GHOSH ? Age:??66 Years?Sex:??Female?:??1955?? Chief Complaint/Reason for Consultation [place] per cards Dr. Perry- 66yoF hx of MVR/tricuspid annuloplasty 2004 p/w acute CHF. Moderate in the past now peak 90, mean 47, seems severe. ? amio toxicity. Needs LRC/RHC and valve team assessment. Being diuresed. History of Present Illness 66-year-old female patient??who presented to our facility as a transfer from??[place] for further management.?? 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 Presented earlier??to [facility]??with complaints of shortness of breath??with and without exertiongoing on for the past month??however it has been progressively getting worse over the past week.?? She was admitted to [facility].?? She was admitted??to [facility]??for acute hypoxic respiratory failure, was assumed secondary to??exacerbation of HFpEF. ??Started on IV diuretics.?? Repeat ech ocardiogram??showed??severe aortic stenosis??with peak gradient of 19 mmHg, mean gradient??of 47, with??0.98??cm2. decision was made to transfer to [facility] for further management of symptomatic severe aortic??stenosis (aortic valve replacement). ?? Review of Systems Constitutional:?No weight loss, fever, chills, weakness or fatigue. Cardiovascular:No chest pain,pressure or discomfort. No palpitations or pedal edema. Respiratory:??Exertional shortness of breath Gastrointestinal:?No anorexia, nausea, vomiting or diarrhea. No abdominal pain or blood in stool. Genitourinary: No burning micturition. No urinary frequency or incontinence. Neurologic: No headache, dizziness, syncope, unilateral weakness, ataxia, numbness or tingling in the extremities. No change in bowel or bladder control. Musculoskeletal: No muscle pain, back pain, joint pain or stiffness. Hematologic: No bleeding or bruising. Lymphatics: No enlarged lymph nodes. Psychiatric: No depression or anxiety. Endocrine: No reports of sweating. No cold or heat intolerance. No polyuria or polydipsia. All other systems were reviewed and are negative. Objective ? Vital Signs?? Temperature: 97.7 DegF (08/28/22 14:31:00) Temperature Route: Temporal (08/28/22 14:31:00) Pulse Rate: 57 bpm (08/28/22 14:31:00) Respiratory Rate: 18 br/min (08/28/22 14:31:00) Systolic Blood Pressure: 109 mm Hg (08/28/22 14:31:00) Diastolic Blood Pressure:??38 mm Hg??Low (08/28/22 14:31:00) Blood pressure sites: Arm, left (08/28/22 14:31:00) Mean Arterial Pressure: 62 mm Hg (08/28/22 14:31:00) Pulse Pressure: 71 mm Hg (08/28/22 14:31:00) Oxygen Saturation: 96 % (08/28/22 14:31:00) Mode of Delivery (Oxygen): Room air (08/28/22 14:31:00) Early Warning Score: 2 (08/28/22 14:31:32) ? Intake/Output? No Data Available ? Physical Exam ?? Constitutional: Alert, in no acute distress. ?? Head: Normocephalic. ?? Eyes: Pupils are equal, round and reactive to light. Extraocular muscles intact. No pallor or scleral icterus ?? Ear, Nose and Throat: mucous membranes moist. Ears and nose - no obvious deformities. Trachea midline. ?? Neck: Supple, Full range of motion.No JVD or bruits. ?? Respiratory:??Clear to auscultation. No wheezing or rhonchi.??No use of accessory muscles. No tactile fremitus.? Cardiovascular:??PMI not visible. S1 S2 regular. No murmurs, rubs or gallops. ?? Gastrointestinal:??Abdomen soft, non-tender, non-distended. Normal bowel sounds. No pulsatile mass.No hepatosplenomegaly. ?? Genitourinary:??No costovertebral angle tenderness. ?? Extremities: No lower extremity pitting edema. No cyanosis or clubbing. ?? Neurologic:??AAOx3, Cranial nerves II-XII grossly intact. Speech normal, no facial droop. No focal neurological deficits. Moves all extremities spontaneously. Sensation intact bilaterally.??Flexor plantar response ?? Skin:??No rash.? Musculoskeletal:??No gross deformities on inspection. Normal range of motion in hips, knees, ankles. Gait? _ ?.??Muscle strength within normal limits ?? Heme/Lymphatics:??Palpation of neck reveals no swelling or tenderness of neck nodes.? Psychiatric: Normal mood and affect. ?? Assessment/Plan 66-year-old female patient??who presented to our facility as a transfer from??[place] for further management.?? 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 Aortic stenosis: congestive heart failure-HFpEF exacerbation severe aortic stenosis??with peak gradient of 19 mmHg, mean gradient??of 47, with??0.98??cm2 Symptomatic with exertional shortness of breath Was admitted to [facility] for??congestive heart failure, she is actively being diuresed. Continue Lasix 20 mg twice daily resume lisinopril and spironolactone unclear why she is not on Beta blockers Daily monitoring of labs Cardiology and cardiothoracic surgery consultation??for AVR (SAVR versus TAVR) Patient??only prefers??open heart surgery??with a mechanical valve??since she is already on warfarin for??mechanical mitral valve. ? Paroxysmal A. fib Rate controlled-on dilt Her telemetry??looks like sinus rhythm. on warfarin. ??However, warfarin is currently on hold given??elevated INR. PT/INR daily ?? Hypertension Resume home medications with holding parameters ?? Dyslipidemia resume atorvastatin ?? Depression/anxiety on sertraline ?? Quality measures DVT prophylaxis full resuscitation ? Histories Allergies Allergies ?(Active and Proposed Allergies Only) Cordran Tape? (Severity: Unknown severity, Onset: Unknown) ? Past Medical History/Problem List Active Problems??(3) ??hx Tobacco abuse Asthma Congestive heart failure ? Past Surgical History No surgery history documented. ? Social History No social history documented. ? Family History No family history recorded. ? Medications Home Medications Albuterol (albuterol 108 mcg/inh inhalation aerosol with adapter)?2?puff(s)?Inhalation?4 times a day Albuterol (Ventolin 90 mcg/inh inhalation aerosol)?See Instructions?2-4 puffs every 4-6 hoursd for increased coughing Albuterol (albuterol 90 mcg/inh inhalation aerosol with adapter)?2 puffs every two hours as needed for wheezing or asthma symptoms?Inhalation?6 times a day?as needed?wheezes Atorvastatin (atorvastatin 10 mg oral tablet)?1?tab(s)?10?Milligram?By Mouth?Daily Doxycycline (doxycycline hyclate 100 mg oral tablet)?1?tab(s)?100?Milligram?By Mouth?2 times a day?for 10?Days Fluticasone (Flovent 110 mcg/inh inhalation aerosol with adapter)?2?puff(s)?Inhalation?twice a day Furosemide (Lasix 40 mg oral tablet)?40?Milligram?1?tab(s)?By Mouth?Daily?for 30?Days Homatropine-Hydrocodone (Hycodan oral syrup)?5?Milliliter?By Mouth?every 4 hours?as needed?as needed for cough Lisinopril (lisinopril 5 mg oral tablet)?5?Milligram?1?tab(s)?By Mouth?Daily?for 30?Days Metoprolol (Toprol XL 100 mg oral tablet, extended release)?100?Milligram?1?tab(s)?By Mouth?Daily?for 30?Days?Metoprolol 50mg BID can be substituted Oxycodone / Acetaminophen (Percocet-5 Tablet)?See Instructions?1-2 By Mouth Every 6 [address] drink and drive with this medication Oxycodone / Acetaminophen (Tylox 500 mg-5 mg oral capsule)?See Instructions?1 capsule By Mouth Every 6 hours as needed for pain PredniSONE (prednisone 50 mg oral tablet)?1?tab(s)?50?Milligram?By Mouth?Daily?for 5?Days Spironolactone (Spironolactone Tablet)?12.5?Milligram?By Mouth?Daily?for 30?Days Warfarin (Coumadin Tablet)?5?Milligram?By Mouth?Daily?for 30?Days?2.5 tabs M, W, F, S, Sun, 3 tabs Tues and Thurs, or per protocol ? Results Recent Labs No labs resulted between 08/27/2022 00:00 and 08/28/2022 15:19? EKG study Event Display: EKG Authored Date: Event Display: ECG 12-Lead Authored Date: Please click on pdf link to open report Event Display: ECG 12-Lead Authored Date: Ventricular Rate: 65 BPM Atrial Rate: 65 BPM P-R Interval: 106 ms QRS Duration: 108 ms Q-T Interval: 422 ms QTC Calculation(Bazett): 438 ms P [place]: 80 degrees R [place]: 55 degrees T [place]: 0 degrees Sinus rhythm with sinus arrhythmia with short [place] Minimal voltage criteria for LVH, may be normal variant ( Bebo product ) ST and T wave abnormality, consider inferior ischemia Abnormal ECG When compared with ECG of 07-JAN-2009 15:34, No significant change was found Confirmed by CYNDY CALDERON MD ([id number]) on 09/05/2022 5:13:03 PM Lambert: CYNDY CALDERON MD Heart Event Display: Echocardiogram - Complete Authored Date: Transthoracic Echocardiography Report (TTE) Patient Demographics Patient Name NUBIA BOND Date of Study 09/11/2022 Corporate Gender Female Facility Race Ethnicity Date of 1955 Height: 64.96 inches Age 66 year(s) Weight: 161.16 pounds Accession Number [id number] BSA: 1.8 m2 Room Number [id number] BMI: 26.85 kg/m2 Referring Physician Justino TUCKER Interpreting Shay Barker MD Physician Final Coat Sprayer Liza Moreno [facility] Indications Aortic stenosis and Prosthetic valve function. Clinical History Hypertension. COPD. Former tobacco use. Prior heart failure Previous aortic valve replacement (TAVR 23 mm S3 ultra) 09/10/22 Atrial fibrillation. CKD Previous mitral valve replacement (St. Alex) Tricuspid valve repair, MAZE procedure 2004 Hyperlipidemia. Asthma. Obesity. Dyslipidemia. Study Data Type of Study TTE procedure:Echo Complete-Doppler, Colorflow, M-Mode. Procedure Information:TAVR post op day 1 Study Date09/11/2022 Start Time: 06:43 AM Study Location: [facility] Adult Echo Study Status: Bedside Patient Status: Routine Technical Quality: Technically difficult due to body habitus. Blood Pressure:117/51 mmHg EKG: Sinus bradycardia HR: 58 bpm Allergies - Other allergy:(Cordran tape). 2D Measurements LV Diastolic Dimension: 4.6 cm LV Systolic Dimension: 3.5 cm LV Septum Diastolic: 1.2 cm LV PW Diastolic: 0.9 cm AO Root Dimension: 2.7 cm LA Dimension: 4.6 cm LVOT Stroke Volume: 58.08 ml LVOT: 1.7 cm Stroke Volume Index32.27 ml/m2 Ascending Aorta:2 cm Cardiac Index:1.87 l/min/m2 Doppler Measurements AV Peak Velocity: 255 cm/s MV Peak E-Wave: 137 cm/s AV Peak Gradient: 26.01 mmHg AV Mean Gradient: 13 mmHg MV P1/2t: 53 msec AV VTI:52.6 cm MV Mean Gradient: 2 mmHg LVOT Peak Velocity: 122 cm/s MV Area (continuity): 1.55 cm2 LVOT VTI25.6 cm MV Deceleration Time: 181 msec AV Area (Continuity):1.1 cm2 MV Area (PHT): 4.15 cm2 TR Velocity:241 cm/s PV Peak Velocity: 110 cm/s TR Gradient:23.23 mmHg PV Peak Gradient: 4.84 mmHg Cardiac Anatomy Left Ventricle/Interventricular Septum The left ventricular size is normal. The left ventricular wall thickness is mildly increased. The LV systolic function is hyperdynamic. The left ventricular ejection fraction is 70-75%. There are no definite regional wall motion abnormalities. Unable to assess diastolic function due to mitral valve prosthesis. Left Atrium/Interatrial Septum The left atrium is poorly visualized due to acoustic shadowing from the prosthetic mitral valve, but appears dilated on limited views. Aortic Valve There is a bioprosthetic valve (23mm S3 Ultra TAVR) in the aortic position. The mean gradient is 14 mmHg. There is a mild perivalvular leak. There was no central prosthetic valve regurgitation. Mitral Valve There is a mechanical valve in the mitral position. The mitral valve mean gradient is 2 mmHg. There is no obvious prosthetic mitral regurgitation, although assessment is limited by acoustic shadowing. Aorta The aortic root is normal in size. Right Ventricle The right ventricle is mildly dilated. Right ventricular systolic function is mildly reduced. Right Atrium The right atrium appears dilated Pulmonic Valve The pulmonic valve is poorly visualized. Tricuspid Valve There has been a tricuspid valve repair by history. There is trivial tricuspid valve regurgitation. Mean gradient across the tricuspid valve is 2-3 mmHg. Pumonary Artery An accurate pulmonary artery pressure could not be obtained. Venous Structures Inferior vena cava inspiratory collapse is blunted . Pericardium/Extracardiac There is no significant pericardial effusion. Summary 1) The LV systolic function is hyperdynamic. The left ventricular ejection fraction is 70-75%. There are no definite regional wall motion abnormalities. 2) The right ventricle is mildly dilated. Right ventricular systolic function is mildly reduced. 3) There is a bioprosthetic valve (23mm S3 Ultra TAVR) in the aortic position. The mean gradient is 14 mmHg. There is a mild perivalvular leak. There was no central prosthetic valve regurgitation. 4) There is a mechanical valve in the mitral position. The mitral valve mean gradient is 2 mmHg. There is no obvious prosthetic mitral regurgitation, although assessment is limited by acoustic shadowing. 5) There has been a tricuspid valve repair by history. There is trivial tricuspid valve regurgitation. Mean gradient across the tricuspid valve is 2-3 mmHg. Comparison Comparison is made to the study of September 10, 2022. There is no significant change. Signature Event Display: Echocardiogram - Complete Authored Date: Event Display: Echocardiogram - Complete Authored Date: Transthoracic Echocardiography Report (TTE) Patient Demographics Patient Name NUBIA BOND Date of Study 09/10/2022 Corporate Gender Female Facility Race Ethnicity Date of 1955 Height: 64.96 inches Age 66 year(s) Weight: 161.16 pounds Accession Number [id number] BSA: 1.8 m2 Room Number [id number] BMI: 26.85 kg/m2 Referring Physician Eduardo Galeano MD Interpreting Physician Ana Barker MD Final Coat Sprayer Luz Reynolds RCS Indications S/P aortic valve replacement (AVR). Clinical History Hypertension COPD MVR Rheumatic heart disease Atrial fibrillation Asthma Tobacco CHF Tricuspid valve repair Study Data Type of Study TTE procedure:Echo 2D Limited or Follow-up. 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 Blood Pressure:119/43 mmHg EKG: Sinus with ectopy Allergies - Other allergy:(Cordran tape). Doppler Measurements AV Peak Velocity: 232 cm/s AV Peak Gradient: 21.53 mmHg AV Mean Gradient: 9 mmHg AV VTI:40.7 cm LVOT Peak Velocity: 155 cm/s LVOT VTI31.9 cm Cardiac Anatomy Aortic Valve s/p AVR. Mild regurgitation. Mean Pg 11 mm Hg. Summary s/p AVR. Mild regurgitation. Mean Pg 11 mm Hg. Impressions Limited echo post AVR. Comparison Comparison made to prior done on August 27, 2022. Signature Event Display: Echocardiogram - Complete Authored Date: [id number] US.doppler Carotid arteries - bilateral Event Display: VL Carotid Duplex Scan Bilat Authored Date: Status:Open Carotid Duplex Study Demographics Procedure Information Patient name: ART GONZALEZ Procedure date: 08/29/2022 3:27 PM Corporate Proc. sub type: Cerebral: Carotid, Carotid Duplex Scan Bilateral. Gender: Female Accession No: [id number] Date of : 1955 Account No: [id number] Age: 66 year(s) Patient status: AMARA Admit Status: Inpatient Procedure Staff Probe: L12-3 Ordering physician: Justino TUCKER Technical quality: Adequate visualization Referring Physician: Justino TUCKER Facility: [facility] Admitting Physician: Thomas Barker MD Study location: [facility] Vascular Lab Attending Physician: Raffy Dinh MD Final Coat Sprayer: Eva Asif RVT [facility] Procedure consent obtained: Eva Claros Interpreting physician: Harmeet Viramontes MD Indications Pre-op evaluation. Carotid Procedure Findings Right Left PSV EDV Angle Plaque PSV EDV Angle Plaque Location (cm/s) (cm/s) (Degree) Characteristics (cm/s) (cm/s) (Degree) Characteristics Prox CCA 116 9.94 60 118 13.6 60 Dist CCA 65.2 10.6 60 93.1 7.47 60 Bulb 65.2 6.83 60 Calcified 91.1 13.6 60 Calcified Prox ICA 274 32.6 60 Calcified 136 22.8 60 Heterogeneous Mid ICA 183 6.86 60 112 22.8 60 Dist ICA 134 25.2 60 111 14.3 Prox ECA 117 60 97.2 0 60 Vertebral 70.8 8.4 60 91.9 0 60 Prox 209 0 46 191 0 60 Subclavian Right ICA/CCA ratio: 4.2 Right verterbral flow: Antegrade Left ICA/CCA ratio: 1.46 Left verterbral flow: Antegr Physician Conclusions Summary: Right Side: 70-99% stenosis in the Internal Carotid Artery. Antegrade flow in the Vertebral Artery. Multiphasic flow is seen in the Subclavian Artery. Left Side: 50-69% stenosis in the Internal Carotid Artery. Antegrade flow in the Vertebral Artery. Multiphasic flow is seen in the Subclavian Artery. Event Display: VL Carotid Duplex Scan Bilat Authored Date: Cardiac surgery Outpatient Note Ines Bailey: PERFORM, SIGN, VERIFY Event Display: Cardiac Surgery Note Office Authored Date: Patient: NUBIA BOND Age: 66 years Sex: Female : 1955 Associated Diagnoses: None Author: Ines Bailey TAVR Program Functional Assessment Test The KCCQ12 questionnaire was documented separately from this series of tests. 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 Please read andcomplete the following questions. There is no right or wrong answers. Please alix the answer that best applies to you. 1. Heart failure affects different people in different ways. Some feel shortness of breath while others feel fatigue. Please indicate how much you are limited by heart failure (shortness of breath or fatigue) in your ability to do the following activities over the past 2 weeks. a. Showering/bathing: Extremely Limited (_) 1 Quite a bit limited (_+) 2 Moderately Limited (_) 3 Slightly Limited (_) 4 Not at all Limited (_) 5 Limited for other reasons or did not do the activity (_) 6 b. Walking 1 block on level ground: Extremely Limited (+_) 1 Quite a bit limited (_) 2 Moderately Limited (_) 3 Slightly Limited (_) 4 Not at all Limited (_) 5 Limited for other reasons or did not do the activity (_) 6 c. Hurrying or jogging (as if to catch a bus): Extremely Limited (_+) 1 Quite a bit limited (_) 2 Moderately Limited (_) 3 Slightly Limited (_) 4 Not at all Limited (_) 5 Limited for other reasons or did not do the activity (_) 6 2. Over the past 2 weeks, how many times did you have swelling in your feet, ankles or legs when youwoke up in the morning? Every Morning (_) 1 3 or more times per week but not every day (_) 2 1-2 times per week (_) 3 Less than once a week (_) 4 Never over the past 2 weeks (_+) 5 3. Over the past 2 weeks, on average, how many times has fatigue limited your ability to do what youwanted? All of the time (_) 1 Several Times per day (_) 2 At least once a day (_+) 3 3 or more times per week but not every day (_) 4 1-2 times per week (_) 5 Less than once a week (_) 6 Never over the past 2 weeks (_) 7 4. Over the past 2 weeks, on average, how many times has shortness of breath limited your ability todo what you wanted? All of the time (_) 1 Several Times per day (_) 2 At least once a day (+_) 3 3 or more times per week but not every day (_) 4 1-2 times per week (_) 5 Less than once a week (_) 6 Never over the past 2 weeks (_) 7 5. Over the past 2 weeks, on average, how many times have you been forced to sleep sitting up in a chair or with at least 3 pillows to prop you up because of shortness of breath? Every night (_) 1 3 or more times per week but not every day (_) 2 1-2 times per week (_) 3 Less than once a week (_) 4 Never over the past 2 weeks (+_) 5 6. Over the past 2 weeks, how much has your heart failure limited your enjoyment of life? It has extremely limited my enjoyment of life (_) 1 It has limited my enjoyment of life quite a bit (_+) 2 It has moderately limited my enjoyment of life (_) 3 It has slightly limited my enjoyment of life (_) 4 It has not limited my enjoyment of life at all (_) 5 7. If you had to spend the rest of your life with your heart failure the way it is right now, how would you feel about this? Not at all satisfied (_+) 1 Mostly dissatisfied (_) 2 Somewhat satisfied (_) 3 Mostly satisfied (_) 4 Completely satisfied (_) 5 8. How much does your heart failure affect your lifestyle? Please indicate how your heart failure may have limited your participation in the following activities over the past 2 weeks. a. Hobbies, recreational activities: Severely Limited (+_) 1 Limited quite a bit (_) 2 Moderately Limited (_) 3 Slightly Limited (_) 4 Did not limit at all (_) 5 Does not apply or did not do for other reasons (_) 6 b. 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 Visiting family or friends out of your home: Severely Limited (+_) 1 Limited quite a bit (_) 2 Moderately Limited (_) 3 Slightly Limited (_) 4 Did not limit at all (_) 5 Does not apply or did not do for other reasons (_) 6 Total Score: 26 Hospital Progress note Marce Kimbrough RN: PERFORM, SIGN, VERIFY Event Display: Progress Note Hospital Authored Date: Patient: NUBIA BOND Age: 66 years Sex: Female : 1955 Associated Diagnoses: None Author: Marce Kimbrough RN Findings Narrative/Incidental pt [id number] on tele-heparin gtt conts and will stop on discharge home which should be today-awaiting loop monitor placement-EKG paged--pt with complaints of bed being unconfortable-offered to get another be, pt declined-pt refuses fall risk indicators and alarm despite education-pt using bedside commode independently--spirometer teaching done, pt resistant af first, but with the encouragement of her visitor, pt complied with using it-at 2st pt showed this RN the acapella and said it was the same thing-educated pt with the difference of both. Discharge Information Cardiac Rehab Discharge : Cardiac Rehab 09/11/2022 15:51 EST Patient attending Phase II Yes Where will pt be attending II [facility] [address] [place] [address] [phone] MD, Leen: PERFORM, MODIFY Event Display: Progress Note Hospital Authored Date: Patient: ??NUBIA BOND ? Age:??66 Years?Sex:??Female?:??1955?? Objective Vital Signs?? Temperature: 97.5 DegF (09/13/22 08:27:00) Temperature Route: Oral (09/13/22 08:27:00) Pulse Rate: 70 bpm (09/13/22 11:03:00) Respiratory Rate: 18 br/min (09/13/22 08:27:00) Systolic Blood Pressure: 98 mm Hg (09/13/22 11:03:00) Diastolic Blood Pressure: 58 mm Hg (09/13/22 11:03:00) Blood pressure sites: Arm, right (09/13/22 08:27:00) Mean Arterial Pressure: 63 mm Hg (09/13/22 08:27:00) Pulse Pressure: 56 mm Hg (09/13/22 08:27:00) Oxygen Saturation:??93 %??Low (09/13/22 08:27:00) Liters per Minute: 2 L/min (09/13/22 08:27:00) Mode of Delivery (Oxygen): Nasal cannula (09/13/22 08:27:00) Early Warning Score: 5 (09/13/22 11:08:35) ? Intake/Output? 08/28 13:58 09/13 07:00 09/12 07:00 09/11 07:00 09/10 07:00 ?? 09/13 11:41 09/13 11:41 09/13 06:59 09/12 06:59 09/11 06:59 Intake ?41675.0 ?0 ? 1046.5 ?360 ?360.0 Output ? 9400 ?400 ?850 ? 1200 ?550 Net Total ? 1505.0 ? -400 ?196.5 ? -840 ? -190.0 ? Urine Count ? 37 ?0 ?0 ?1 ?5 ? Physical Exam _ Inpatient Medications Medications (19) Active SCHEDULED: (9) Aspirin 81 mg Chew Tablet (Aspirin Chew Tablet) ??81 mg, By Mouth, Daily Atorvastatin 40 mg Tablet (atorvastatin 40 mg oral tablet) ??40 mg, By Mouth, Daily at bedtime Breo Ellipta 100 mcg / 25 mcg Inhaler (Breo Ellipta 100 mcg-25 mcg Inhaler) ??1 puffs, Inhalation, Daily Diltiazem 120 mg/24 hour CD Capsule (diltiazem 120 mg/24 hours oral capsule, extended release) ??120mg, By Mouth, Daily Levothyroxine 25 mcg Tablet (levothyroxine 0.025 mg oral tablet) ??25 mcg, By Mouth, Daily NaCl 0.9% Flush 3ml (NaCL 0.9% Flush) ??3 mL, IV Push, Every 8 hours Sertraline 50 mg Tablet (sertraline 50 mg oral tablet) ??200 mg, By Mouth, Daily Spiriva Respimat 2.5 mcg Inhaler (Spiriva Respimat Inhaler) ??2 puffs, Inhalation, Daily Warfarin 5 mg Tablet (Coumadin Tablet) ??10 mg, By Mouth, Daily CONTINUOUS: (1) Heparin 25,000 units / 250 mL D5W premix 25,000 units [19 units/kg/hr] + D5%W Premixed IV 250 mL (Heparin 25,000 units in 250 mL Premix 25,000 units [19 units/kg/hr] + D5%W Premixed IV 250 mL) ??250 mL, IV Infusion, 14.12 mL/hr PRN: (9) Acetaminophen 325 mg Tablet (Acetaminophen Tablet) ??650 mg, By Mouth, Every 4 hours Dextromethorphan-Guaifenesin 20 mg-200 mg/10 mL Liqu UD (Robitussin DM Liquid) ??10 mL, By Mouth, Every 4 hours Heparin 5000 units/mL Inj (1 mL) (Heparin Inj) ??5,000 units 1 mL, IV Push, Every 6 hours Heparin 5000 units/mL Inj (1 mL) (Heparin Inj) ??2,500 units 0.5 mL, IV Push, Every 6 hours Melatonin 3 mg Tablet (Melatonin Tablet) ??3 mg, By Mouth, Daily at bedtime NaCl 0.9% Flush 3ml (NaCL 0.9% Flush) ??3 mL, IV Push, Every 8 hours NaCl 0.9% Flush 3ml (NaCL 0.9% Flush) ??3 mL, IV Push, Every 8 hours Senna 8.6 mg / Docusate 50 mg tablet (Docusate/Senna Tablet) ??1 tablet, By Mouth, 2 times a day Simethicone 80 mg Chewable Tablet (Simethicone Tablet) ??80 mg, Chew, 3 times a day ? Results Recent Labs BLOOD COUNT & DIFF WBC 7.6 k/mm3 ()?? 09/13/2022 08:44 RBC 3.28 m/mm3 (Low)?? 09/13/2022 08:44 Hgb 9.0 Gm/dL (Low)?? 09/13/2022 08:44 Hct 30.2 % (Low)?? 09/13/2022 08:44 MCV 92.1 femtoliters ()?? 09/13/2022 08:44 MCH 27.4 pg ()?? 09/13/2022 08:44 MCHC 29.8 g/dL (Low)?? 09/13/2022 08:44 Platelet Count 183 k/mm3 ()?? 09/13/2022 08:44 RDW-SD 61.1 femtoliters (High)?? 09/13/2022 08:44 MPV 13.2 femtoliters (High)?? 09/13/2022 08:44 Nucleated RBC (Automated) 0.0 #/100 WBC'S ()?? 09/13/2022 08:44 Abs. NRBC 0.0 k/mm3 ()?? 09/13/2022 08:44 Abs. Neut 5.9 k/mm3 ()?? 09/13/2022 08:44 Abs. Lymph 0.7 k/mm3 (Low)?? 09/13/2022 08:44 Abs. [place] 0.5 k/mm3 ()?? 09/13/2022 08:44 Abs. Eo 0.4 k/mm3 ()?? 09/13/2022 08:44 Abs. Baso 0.1 k/mm3 ()?? 09/13/2022 08:44 Neut % 77.3 % (High)?? 09/13/2022 08:44 Lymph % 9.4 % (Low)?? 09/13/2022 08:44 [place] % 7.0 % ()?? 09/13/2022 08:44 Eos % 4.8 % ()?? 09/13/2022 08:44 Baso % 0.8 % ()?? 09/13/2022 08:44 Imm Gran 0.7 % ()?? 09/13/2022 08:44 Abs. Imm Gran 0.1 k/mm3 ()?? 09/13/2022 08:44 ?? CHEM GENERAL Sodium 138 mmol/L ()?? 09/13/2022 08:44 Potassium 4.6 mmol/L ()?? 09/13/2022 08:44 Chloride 103 mmol/L ()?? 09/13/2022 08:44 Bicarbonate Level 25 mmol/L ()?? 09/13/2022 08:44 Anion Gap 10 ()?? 09/13/2022 08:44 BUN 18 mg/dL ()?? 09/13/2022 08:44 Creatinine-Blood 1.0 mg/dL ()?? 09/13/2022 08:44 Estimated GFR Creatinine 64 ML/MIN/1.73 M2 ()?? 09/13/2022 08:44 Magnesium 1.9 mg/dL ()?? 09/13/2022 08:44 ?? COAG INR 2.0 (High)?? 09/13/2022 08:44 Protime (PT) 19.8 seconds (High)?? 09/13/2022 08:44 APTT 89.1 seconds (High)?? 09/13/2022 08:44 ?? IMMUNOLOGY GENERAL Complement C3 113 mg/dL ()?? 09/12/2022 12:16 Complement C4 32 mg/dL ()?? 09/12/2022 12:16 ? Assessment/Plan Nubia Bond is a 66 year-old lady??with a past medical history of??severe aortic stenosis, historyof mechanical mitral valve replacement and tricuspid valve repair,??HFpEF,??hypertension,??atrial fibrillation??on Coumadin who??was admitted??for CHF exacerbation??and is now status post TAVR.?? Nephrology were consulted??for??acute kidney injury. ?? Non-oliguric acute kidney injury The patient has no history of chronic kidney disease. ??Her??Baseline creatinine is??0.8-1.0. Her creatinine yesterday??was 1.7?? Etiology is likely multifactorial. ??The patient was thought to be??congested??initially??because a CXR showed signs of pulmonary edema, however the patient was hypovolemic on exam??and bedside ultrasound showed a collapsing IVC.?? Chest x-ray findings??have been due to??amiodarone toxicity. ??The [place] ent was given IV fluids??and her creatinine normalized.?? Etiology was likely??prerenal,??considering her??hypotension??and relatively poor p.o. intake in the setting of??TAVR, and??acute exacerbation of HFpEF. ??The patient was also exposed to contrast. ??Ischemic ATN??patient's kidney??improved??with??1 day. Post-renal etiologies were ruled out?with bladder scan. ??are ruled out based on the US findings as stated above.?? The patient was euvolemic on exam today and she is ready to be discharged from a kidney standpoint. Nephrology will sign off. ? The patient was seen and discussed with Dr. Peri Atkins MD [facility] ? Alvin Whitt MD I: PERFORM Event Display: Progress Note Hospital Authored Date: ?? I reviewed the patient's history, examined the patient, and confirmed the above findings as documented by the fellow/resident. I personally formulated the essential elements of the assessment and plan noted above. Dr. Whitt?? Aby Thorne RN: PERFORM, SIGN, VERIFY Event Display: Progress Note Hospital Authored Date: Patient: NUBIA BOND Age: 66 years Sex: Female : 1955 Associated Diagnoses: None Author: Aby Thorne RN Findings Problem Related to Alteration in Cardiac Function (new) : Alteration in Cardiac Function/new 09/12/2022 23:00 EST Alteration in Cardiac Status Related to Cardiac defect, Cardiac Procedure, Heart failure, Other: TAVR Goals & Outcomes, Cardiac Status Pt will resume/maintain adequate cardiac output, Pt will resume/maintain adequate hemodynamic status, Pt will resume/maintain adequate respiratory function, Pt will resume/maintain intact neuro function, Pt will maintain adequate GI/ function appropriate for pt,Pt will maintain adequate nutrition status, Pt/caregiver will state understanding of diagnosis, Pt/caregiver will state strategies to reduce risk factors, Pt/caregiver will state understanding of procedure Cardiac Interventions Implemented Assess/monitor cardiac status, Assess/monitor respiratory status,Call/Report variances in ECG to provider, If no bowel movement in 3 days activate bowel regime, Monitor & document daily weight, Monitor ECG w/administration of antiarrhythmics (CO 13.420) Goals/Interventions, Cardiac Yes Cardiac, Problem Start 08/28/2022 17:44 Reviewed Plan with, Cardiac Status Patient Patient Progression, Cardiac Status Patient progressing according to plan . Nursing Data Cardiac Data. : Cardiac Data. 09/12/2022 22:24 EST Cardiac Rhythm Normal sinus rhythm manager monitoring Yes Cardiovascular WNL except . Gastrointestinal Data. : Gastrointestinal Data. 09/12/2022 22:24 EST Last Bowel Movement 09/12/2022 GI WNL Normal Bowel Pattern Daily . Genitourinary Data. : Genitourinary Data. 09/12/2022 22:24 EST WNL . HEENT Data. : HEENT Assessment 09/12/2022 22:24 EST HEENT, Adult WNL . Integumentary Data. : Integumentary Data. 09/12/2022 22:24 EST Skin Integrity Not intact Integumentary WNL except . IV Lines. : IV Lines. 09/12/2022 22:32 EST Right Forearm 20 gauge Peripheral IV Activity: Assess Peripheral IV Assess Compare Touch: A/C/T Done, no complications Peripheral IV Site Assessment: Clean, dry and intact Peripheral IV Site Drainage: None Peripheral IV Dressing: Clean, dry and intact Peripheral IV Intervention: Other: LR and Heparin running (Modified) . Musculoskeletal Data. : Musculoskeletal Data. 09/12/2022 22:24 EST Musculoskeletal WNL . Narrative/Incidental Pt, is POD 2 from a TAVR,.Alert and oriented x4 , NSR in 60s, VSS, Shes on 3L of O2.OOB Independent,Groin incisions are dry and intact right side open to air and left side DSD dressing. no complains of pain, SOB , N+V, and chest pain. She is currently on Heparin drip running at 19 units the plan is to bridge her to warfarin. She has been educated on safety protocols call vagn within reach. Refer to biophysical assessment for further information. . Discharge Information Cardiac Rehab Discharge : Cardiac Rehab 09/11/2022 15:51 EST Patient attending [facility] II Yes Where will pt be attending II [facility] [address] [facility] [phone] Rehabilitation Discharge : Rehab Discharge Index 09/11/2022 8:06 EST Comments on treatment indicated Pt demo safe and I mobility including amb and stairs with the RW. Rec DC HWS. Walker: distance >50 Full chart review completed Yes Hospital course TAVR 09/10 Other findings Pt demo safe and independent mobility incuding amb up to 55' and 2 steps. Pt had 2LO2 throughout the session and with monitoring was at >94% during all amb and steps. Pt had desaturated after session, ? If this was a reading error as Pt dropped 15-20%. Deprecated Cardiac rehabilitation treatment plan Progress note and attainment of goals (narrative) Tamela Chávez RN: PERFORM, SIGN, VERIFY Event Display: Cardiac Rehab Note Authored Date: [id number] Patient: NUBIA BOND Age: 66 years Sex: Female : 1955 Associated Diagnoses: None Author: Tamela Chávez RN Attended and participated in multidisciplinary cardiac surgery rounds. See CIS for full plan of care. Please page [phone] with questions.Tamela Chávez RN: PERFORM, SIGN, VERIFY Event Display: Cardiac Rehab Note Authored Date: Patient: NUBIA BOND Age: 66 years Sex: Female : 1955 Associated Diagnoses: None Author: Tamela Chávez RN Attended and participated in multidisciplinary cardiac surgery rounds. See CIS for full plan of care. Please page [phone] with questions.Michelle Chery RN: PERFORM, SIGN, VERIFY Event Display: Cardiac Rehab Note Authored Date: [id number] Patient: NUBIA BOND Age: 66 years Sex: Female : 1955 Associated Diagnoses: None Author: Michelle Chery RN Pre-exercise Vitals Vital Signs Comment: Reviewed in CIS. Pre-exercise Physical Examination Neurologic: alert & oriented. Activity Symptoms with Cardiac Rehab Symptoms: Dyspnea on exertion. Activity Ambulate: independent, assistive device, distance ambulated 170 feet. Assistive Devices Assistive Device: Wheeled walker. Patient Education Education: Patient alone, Post procedure guidelines. Education topic Teachback comprehension 75% Topic: Role of exercise, Home activity guidelines/limits. Recommendation and Plan Outpatient follow up recommended: [facility]. Cardiac Rehab: Will sign off at this time. Recommendation comment: RN notified of plan. Portable [facility]R [facility] S: TRANSCRIBE Radha Luis MD: VERIFY Event Display: Result: Authored Date: [id number] Chest Portable performed upright at 8:23 AM Reason: CHF; POD2 TAVR 3L NC; Clinical Question(s): CHF COMPARISON: Multiple prior chest x-rays, the most recent of which is dated 09/11/2022. FINDINGS: LINES AND TUBES: None. LUNGS AND PLEURA: Slight interval decrease in pulmonary vascular congestion with partial improved aeration of the right upper lung. No pleural effusion. No pneumothorax. HEART, MEDIASTINUM AND ESHA: The patient is status post median sternotomy and valve replacement as well as TAVR. The cardiac mediastinal contours appear unchanged. BONES AND SOFT TISSUES: No acute abnormality. IMPRESSION: Decreasing pulmonary vascular congestion and improving aeration of the right upper lung. WSN: [id number] Ordering Physician: Johan Moralez Dictated By: Radha Luis MD Dictated Date/Time: 09/13/22 10:16 a Reviewed By: Radha Luis MD Signed By: Radha Luis MD Signed Date/Time: 09/13/22 10:16 am Transcribed By: DIEGO Transcribed Date/Time: 09/13/22 10:14 ALEXANDREA Pyle S: TRANSCRICrystal Yates MD: VERIFY Event Display: Result: Authored Date: [id number] Examination: Portable chest performed on 09/11/2022 at 6:15 AM. History: Status post TAVR. Findings: A frontal view of the chest is compared to a prior study dated 09/10/2022. Sternotomy wires and valve placements are noted. There is stable enlargement of the cardiac silhouette. Pulmonary edema is similar to the prior study. There are no definite pleural effusions. The osseous structures are intact. IMPRESSION: Pulmonary edema. WSN: [id number] Ordering Physician: Familia Badillo Dictated By: Crystal Sauer MD Dictated Date/Time: 09/11/22 8:49 am Reviewed By: Crystal Sauer MD Signed By: Crystal Sauer MD Signed Date/Time: 09/11/22 8:49 am Transcribed By: DIEGO Transcribed Date/Time: 09/11/22 8:48 ALEXANDREA Pyle S: TRANSCHarmeet Betancourt MD: VERIFY Event Display: Result: Authored Date: [id number] Chest Portable , supine Reason: Postop; S P TAVR; Clinical Question(s): Other:; Cardiac Tamponade; Special Instructions: on admission to unit COMPARISON: 03/20/2013. Intervening CT angiogram chest 09/04/2022 reviewed. FINDINGS: LINES AND TUBES: Inferior transvenous entry pacing catheter present, tip projecting near right hilum. LUNGS AND PLEURA: Mild, widespread alveolar opacities, slightly greatest in the upper lobes and central vascular congestion most likely reflecting CHF. No evidence of pleural effusion. No pneumothorax. HEART, MEDIASTINUM AND ESHA: The heart appears mildly prominent. Interval placement of TAVR. Mitral valve replacement and tricuspid annuloplasty ring. BONES AND SOFT TISSUES: No acute abnormality. Lymphadenopathy seen on CT is not well appreciated on this exam. IMPRESSION: CHF. Interval TAVR. A critical result message ([facility]) has been communicated via the [employer] system on 09/10/2022 2:51 PM, Message ID [id number]. WSN: [id number] Ordering Physician: Familia Badillo Dictated By: Harmeet Viramontes MD Dictated Date/Time: 09/10/22 2:52 pm Reviewed By: Harmeet Viramontes MD Signed By: Harmeet Viramontes MD Signed Date/Time: 09/10/22 2:52 pm Transcribed By: DIEGO Transcribed Date/Time: 09/10/22 2:52 pm Patient Care team information Care Team PersonnelName: Linda John RN Position: S RN Member Role: Primary Care Nurse Name: Bebe Mendez RN Position: S RN Member Role: Primary Care Nurse Name: Santino Green MD Position: [facility] Renal MD Member Role: Lifetime Consulting Physician Address: Address: [address] [place], [place] [address] [place], [place] [address] Name: Tarik Butterfield MD Position: [facility] Outreach Member Role: PCP Address: Address: [address] [place] [phone] Name: Caro Chavez RN Position: S RN Member Role: Primary Care Nurse Care Team Related PersonsName: JULIO BOND Address: home [address] [place] [address] Name: HARMEET BOND Address: home [address] [place] [address] Name: JODIE BOND Address: home [address] [place] [address]
--- OUTSIDE RECORDS SUMMARY | 2022-09-27 11:28 | XMS_ITS | Continuity of Care Document ---
:1955 Author Organization [employer] Address [address] [place] [address] Care Team Providers Name Role Phone Azam [...] MG Oral Daily July 30, 2022 Active Xmtqvzkpoqo-Hmwqzkzex-Sh 1 INH Inhalation (Do not Daily July [...] Date Status XR chest 2V AP&LAT August 04, 2022 active XR chest 1V single AP August 03, 2022 completed XR chest 1V single AP August 02, 2022 completed XR chest 1V single AP July 30, 2022 completed Relevant Diagnostic Tests and/or Laboratory Data Laboratory Results Test Date/Time Result Interp. Ref. Range Result Comment White Blood Count August 04, 9.0 th/mm3 4.0-11.0 2021 5:07am Red Blood Count August 04, 2.98 mil/mm3 Low 4.00-5.30 2021 5:07am Hemoglobin August 04, 8.2 gm/dL Low 11.6-15.3 2021 5:07am Hematocrit August 04, 26.2 % Low 35.0-46.0 2021 5:07am Mean Corpuscular August 04, 87.9 fL 80.0-100.0 Volume 2021 5:07am Mean Corpuscular August 04, 27.5 pg 27.0-34.0 Hemoglobin 2021 5:07am Mean Corpuscular August 04, 31.3 g/dL 30.5-35.1 Hemoglobin Concent 2021 5:07am Red Cell August 04, 14.7 % 11.6-17.2 Distribution Width 2021 5:07am Platelet Count August 04, 305 th/mm3 352-070 8746 5:07am Mean Platelet Volume August 04, 11.5 fL 7.0-12.0 2021 5:07am Differential Comment August 04, . 2021 5:07am Neutrophils (%) August 04, 78.4 % High 16.0-70.0 (Auto) 2021 5:07am Immature Granulocyte August 04, 1.0 % 0-6 % (Auto) 2021 5:07am Lymphocytes (%) August 04, 14.4 % 9.0-44.0 (Auto) 2021 5:07am Monocytes (%) (Auto) August 04, 5.3 % 0.0-8.0 2021 5:07am Eosinophils (%) August 04, 0.8 % 0.0-4.0 (Auto) 2021 5:07am Basophils (%) (Auto) August 04, 0.1 % 0.0-2.0 2021 5:07am Neutrophils # (Auto) August 04, 7.0 th/mm3 1.8-7.7 2021 5:07am Immature Granulocyte August 04, 0.1 th/mm3 # (Auto) 2021 5:07am Lymphocytes # (Auto) August 04, 1.3 th/mm3 1.0-4.8 2021 5:07am Monocytes # (Auto) August 04, 0.5 th/mm3 0.0-0.9 2021 5:07am Eosinophils # (Auto) August 04, 0.1 th/mm3 0.0-0.4 2021 5:07am Basophils # (Auto) August 04, 0.0 th/mm3 0.0-0.2 2021 5:07am Prothrombin Time August 04, 24.4 sec High 9.8-11.6 2021 5:07am Prothromb Time August 04, 2.4 Ratio INR INDIC ATION International Ratio 2021 5:07am 2.0 - 3.0 --- --Prophylaxis of Venous [...] 10:20am Urine Specific August 01, 1.010 1.002-1.035 [place] 2021 10:20am Urine Protein August 01, Negative [...] ind Comments 2021 10:20am Sodium Level August 04, 139 meq/L 862-659 5593 5:07am Potassium Level August 04, 4.0 meq/L 3.5-5.1 2021 5:07am Chloride Level August 04, 103 meq/L 98-107 2021 5:07am Carbon Dioxide Level August 04, 32.7 meq/L High 21.0-32.0 2021 5:07am Anion Gap August 04, 3 meq/L Low 5-15 2021 5:07am Blood Urea Nitrogen August 04, 39 mg/dL High 7-18 2021 5:07am Creatinine August 04, 1.10 mg/dL High 0.50-1.00 2021 5:07am Estimat Glomerular August 04, 56 mL/min Low >89 Filtration Rate 2021 5:07am Random Glucose August 04, 79 mg/dL 74-106 Note: Sulf asalazine and Sulfapyridine february 2022 5:07am spuriously af fect result. Calcium Level August 04, 8.4 mg/dL Low 8.5-10.1 2021 5:07am Total Bilirubin August 04, 0.5 mg/dL 0.2-1.0 2021 5:07am Aspartate Amino August 04, 14 U/L Low 15-37 Note: Sul fasalazine and Sulfapyridine february Transf (AST/SGOT) 2021 5:07am spurio usly affect result. Alanine August 04, 11 U/L 10-53 Note: Sulfasal azine and Sulfapyridine may Aminotransferase 2021 5:07am spuriou sly affect result. (ALT/SGPT) Troponin I High July 3, 9 pg/mL 3.0-54 Reference ranges are not established for patients that are less than 21 years of age or greater than 91 years of age. Sensitivity 2021 7:50am Results of t his test should always be interpreted in conjunction wi th the patient's medical history, clinical presentation a nd other findings. 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 Acute hypoxemic respiratory failure Shortness of hector [...] Atte nding Date Date Provider Admitted Rayshawn HHPO 5 July 30, 2022 [facility] 9:25am Cheryle Encounter Diagnosis Onset Date [...] Query Response Date Recorded Comment Bathing Ability Independent August 04, 2022 8:00am Eating (Feeding) Ability Independent August 04, 2022 8:00am Level of [place] Independent August 04, 2022 8:00am Toileting Ability Independent July 30, 2022 12:40pm [...] 157.48 cm July 30, 2022 12:00pm Weight 77.8 kg August 04, 2022 5:20am Temperature 98.0 F 97.6 F-99.6 F August 04, 2022 12:00pm Pulse 58 BPM 60-90 August 04, 2022 12:00pm Respiration 20 RPM 12-24 August 04, 2022 12:00pm Pulse Oximetry 98 % 95-100 August 04, 2022 12:00pm Blood Pressure Systolic 129 100-140 August 04, 2022 12:00pm Blood Pressure Diastolic 67 60-90 August 04, 2022 12:00pm
--- OUTSIDE RECORDS SUMMARY | 2022-09-27 11:28 | XMS_ITS | Continuity of Care Document ---
:1955 Author Organization [email or web address] Address [address] [place] [address] Care Team Providers Name Role Phone Azam Mao Physician Daniela Chopra Primary Care Physician [phone] Daniela Chopra Primary Care Physician Cheryle Miller Admitting Physician Cheryle Miller Attending Physician Allergies, Adverse Reactions, Alerts No known [...] MG Oral Daily July 30, 2022 Active Rubemihndmn-Yyhygdibf-Me 1 INH Inhalation (Do not Daily July [...] Active Procedures Procedure Date Status XR chest 1V single AP July 30, 2022 completed Relevant Diagnostic Tests and/or Laboratory Data Laboratory Results Test Date/Time Result Interp. Ref. Range Result Comment White Blood Count July 30, 2022 10.1 th/mm3 4.0-11.0 7:50am Red Blood Count July 30, 2022 3.35 mil/mm3 Low 4.00-5.30 7:50am Hemoglobin July 30, 2022 9.4 gm/dL Low 11.6-15.3 7:50am Hematocrit July 30, 2022 29.8 % Low 35.0-46.0 7:50am Mean Corpuscular July 30, 2022 89.0 fL 80.0-100.0 Volume 7:50am Mean Corpuscular July 30, 2022 28.1 pg 27.0-34.0 Hemoglobin 7:50am Mean Corpuscular July 30, 2022 31.5 g/dL 30.5-35.1 Hemoglobin Concent 7:50am Red Cell Distribution July 30, 2022 15.3 % 11.6-17.2 Width 7:50am Platelet Count July 30, 2022 232 th/mm3 150-450 7:50am Mean Platelet Volume July 30, 2022 11.6 fL 7.0-12.0 7:50am Differential Comment July 30, 2022 . 7:50am Neutrophils (%) (Auto) July 30, 2022 86.6 % High 16.0-70. 0 7:50am Immature Granulocyte % July 30, 2022 0.6 % 0-6 (Auto) 7:50am Lymphocytes (%) (Auto) July 30, 2022 4.9 % Low 9.0-44.0 7:50am Monocytes (%) (Auto) July 30, 2022 7.0 % 0.0-8.0 7:50am Eosinophils (%) (Auto) July 30, 2022 0.7 % 0.0-4.0 7:50am Basophils (%) (Auto) July 30, 2022 0.2 % 0.0-2.0 7:50am Neutrophils # (Auto) July 30, 2022 8.7 th/mm3 High 1.8-7.7 7:50am Immature Granulocyte # July 30, 2022 0.1 th/mm3 (Auto) 7:50am Lymphocytes # (Auto) July 30, 2022 0.5 th/mm3 Low 1.0-4.8 7:50am Monocytes # (Auto) July 30, 2022 0.7 th/mm3 0.0-0.9 7:50am Eosinophils # (Auto) July 30, 2022 0.1 th/mm3 0.0-0.4 7:50am Basophils # (Auto) July 30, 2022 0.0 th/mm3 0.0-0.2 7:50am Prothrombin Time July 30, 2022 59.7 sec High 9.8-11.6 7:50am Prothromb Time July 30, 2022 6.1 Ratio High Resul ts called with read-back confirmation International Ratio 7:50am to FRANKLYN DUVALL RN by Felicia Espinoza at 0836. INR INDICATIO N 2.0 - 3.0 --- --Prophylaxis of Venous Thrombosis (High Risk Batista rgery) Treatment of Venous Thrombosis Treatment of Pulmonary Embolism Prevention of Systemic Embolism Tissue Heart Valves Acute Myocard ial Infarction Valvular Hear t Disease Atrial Fibril lation 2.5 - 3.5 --- --Mechanical Prosthetic Valves, Preventative Therapy for Recurrent Myocardial In farction, Consistent with FDA Recommend ations. Activated Partial July 30, 2022 48.1 sec High 23.4-31.7 Thromboplast Time 7:50am Sodium Level July 30, 2022 137 meq/L 136-145 7:50am Potassium Level July 30, 2022 3.8 meq/L 3.5-5.1 7:50am Chloride Level July 30, 2022 105 meq/L 98-107 7:50am Carbon Dioxide Level July 30, 2022 26.2 meq/L 21.0-32.0 7:50am Anion Gap July 30, 2022 6 meq/L 5-15 7:50am Blood Urea Nitrogen July 30, 2022 18 mg/dL 7-18 7:50am Creatinine July 30, 2022 1.20 mg/dL High 0.50-1.00 7:50am Estimat Glomerular July 30, 2022 50 mL/min Low >89 Filtration Rate 7:50am Random Glucose July 30, 2022 99 mg/dL 74-106 Note: Sulfasalazine and Sulfapyridine may 7:50am spuriously aff ect result. Calcium Level July 30, 2022 8.5 mg/dL 8.5-10.1 7:50am Total Bilirubin July 30, 2022 1.0 mg/dL 0.2-1.0 7:50am Aspartate Amino Transf July 30, 2022 22 U/L 15-37 Note: Sulfasalazine and Sulfapyridine may (AST/SGOT) 7:50am spuriously aff ect result. Alanine July 30, 2022 11 U/L 10-53 Note: Sul fasalazine and Sulfapyridine may Aminotransferase 7:50am spurious ly affect result. (ALT/SGPT) Troponin I High July 30, 2022 9 pg/mL 3.0-54 Refe rence ranges are not established for patients that are less than 21 years of age or greater than 91 years of age. Sensitivity 7:50am Results of is test should always be interpreted in conjunction wi the patient's medical history, clinical presentation a nd other findings. 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 Hospital Discharge Medications Medication Dose Units Route Sig Qty Days Order Status Instru ctions Date Atorvastatin 20 MG Oral Daily July Amiodarone MG July Amiodarone 200 MG Oral Daily July Sertraline 100 MG Oral Daily July Warfarin 2.5 MG Oral Daily July Diltiazem Hcl 120 MG Oral Daily July Fluticasone-Um 1 INH Inhalation Daily July Acti ve eclidin-Vilant (Do not 2021 er use) Encounters Encounter Facility Location Admit/Visit Discharge/Departure Atte nding Date Date Provider Admitted Rayshawn [facility] 5 July 30, 2022 [facility] 9:25am Cheryle Encounter Diagnosis Onset Date Acute exacerbation of CHF (congestive heart failure) Acute exacerbation of chronic obstructive pulmonary di sease (COPD) Acute hypoxemic respiratory failure Shortness of breath Supratherapeutic INR Functional Status Query Response Date Recorded Comment Comprehension Ability No Impairment July 30, 2022 12:00pm Level of Consciousness Alert July 30, 2022 12:00pm Patient Orientation Person July 30, 2022 12:00pm Place Date/Time Situation Query Response Date Recorded Comment Bathing Ability Independent July 30, 2022 2:00pm Eating (Feeding) Ability Independent July 30, 2022 12:40pm Level of [place] Independent July 30, 2022 2:00pm Toileting Ability Independent July 30, 2022 12:40pm [...] 157.48 cm July 30, 2022 12:00pm Weight 79.3 kg July 30, 2022 12:00pm Temperature 98.2 F 97.6 F-99.6 F July 30, 2022 12:00pm Pulse 70 BPM 60-90 July 30, 2022 2:51pm Respiration 16 RPM 12-24 July 30, 2022 2:51pm Pulse Oximetry 94 % 95-100 July 30, 2022 12:00pm Blood Pressure Systolic 94 100-140 July 30, 2022 12:00pm Blood Pressure Diastolic 52 60-90 July 30, 2022 12:00pm
--- OUTSIDE RECORDS SUMMARY | 2022-09-27 11:29 | XMS_ITS | Continuity of Care Document ---
:1955 Author Organization [employer] Address [address] [place] [address] Care Team Providers Name Role Phone Azam Mao Rounding Physician Daniela Chopra Primary Care Physician Daniela Chopra Primary Care Physician Corey Lopez Rounding Physician Damián Spencer Admitting Physician Damián Spencer Attending Physician Sandi Starkey Rounding Physician Allergies, Adverse Reactions, Alerts No known allergies. Medications Active Medications Medication Dose Units Route Sig Qty Days Start Date [facility] Atorvastatin 20 MG Oral Daily July 30, Active 2021 Amiodarone 200 MG Oral Daily July 30, Ac tive 2021 Sertraline 100 MG Oral Daily July 30, Ac tive 2021 Diltiazem Hcl 120 MG Oral Daily July 30, Active 2021 Fluticasone-Umecli 1 INH Inhalation (Do Daily July 30, Active din-Vilanter not use) 2021 [Trelegy Ellipta] Ferrous Sulfate 325 MG Oral BID@1200,17 14 Octo stanley 10, Active [Ferosul] 00 2021 Prednisone 5 MG Oral Twice Daily July 28 0, Active 2021 Fluticasone 1 EACH Via Inhalation Daily 60 30 Octob er 10, Active Furoate-Vilanterol 2021 [Breo Ellipta] Warfarin 6.5 MG Oral Daily August 06, Act gabrielle 2021 Furosemide [Lasix] 20 MG Oral Twice Daily 60 O ctober 10, Active 2021 Amoxicillin-Pot 1 TAB Oral Twice Daily 20 Octo stanley 10, Active Clavulanate 2021 [Augmentin] Discontinued Medications Medication Dose Units Route Sig Qty Days Start Date Discontin ued Date Status Amiodarone MG July 30, July Discontinued 2021 Warfarin 2.5 MG Oral Daily July 30August 06, 2022 Discontinued 2021 Problem List Active Problems Medical Problem Onset Date Status Acute exacerbation of CHF (congestive heart failure) Active Shortness of breath Active Acute hypoxemic respiratory failure Acti ve Supratherapeutic INR Active Acute exacerbation of chronic obstructive pulmonary disease (COPD) Active Procedures Procedure Date Status XR chest 2V AP&LAT August 06, 2022 completed XR chest 2V AP&LAT August 04, 2022 completed XR chest 1V single AP August 03, 2022 completed XR chest 1V single AP August 02, 2022 completed XR chest 1V single AP July 30, 2022 completed Relevant Diagnostic Tests and/or Laboratory Data Laboratory Results Test Date/Time Result Interp. Ref. Range Result Comment White Blood Count August 06, 11.5 th/mm3 High 4.0-11.0 2021 5:57am Red Blood Count August 06, 3.23 mil/mm3 Low 4.00-5.30 2021 5:57am Hemoglobin August 06, 8.8 gm/dL Low 11.6-15.3 2021 5:57am Hematocrit August 06, 28.5 % Low 35.0-46.0 2021 5:57am Mean Corpuscular August 06, 88.2 fL 80.0-100.0 Volume 2021 5:57am Mean Corpuscular August 06, 27.2 pg 27.0-34.0 Hemoglobin 2021 5:57am Mean Corpuscular August 06, 30.9 g/dL 30.5-35.1 Hemoglobin Concent 2021 5:57am Red Cell August 06, 14.7 % 11.6-17.2 Distribution Width 2021 5:57am Platelet Count August 06, 356 th/mm3 437-162 7507 5:57am Mean Platelet Volume August 06, 11.4 fL 7.0-12.0 2021 5:57am Differential Comment August 06, . 2021 5:57am Neutrophils (%) August 06, 81.7 % High 16.0-70.0 (Auto) 2021 5:57am Immature Granulocyte August 06, 1.3 % 0-6 % (Auto) 2021 5:57am Lymphocytes (%) August 06, 11.3 % 9.0-44.0 (Auto) 2021 5:57am Monocytes (%) (Auto) August 06, 5.2 % 0.0-8.0 2021 5:57am Eosinophils (%) August 06, 0.3 % 0.0-4.0 (Auto) 2021 5:57am Basophils (%) (Auto) August 06, 0.2 % 0.0-2.0 2021 5:57am Neutrophils # (Auto) August 06, 9.4 th/mm3 High 1.8-7.7 2021 5:57am Immature Granulocyte August 06, 0.2 th/mm3 # (Auto) 2021 5:57am Lymphocytes # (Auto) August 06, 1.3 th/mm3 1.0-4.8 2021 5:57am Monocytes # (Auto) August 06, 0.6 th/mm3 0.0-0.9 2021 5:57am Eosinophils # (Auto) August 06, 0.0 th/mm3 0.0-0.4 2021 5:57am Basophils # (Auto) August 06, 0.0 th/mm3 0.0-0.2 2021 5:57am Prothrombin Time August 08, 45.6 sec High 9.8-11.6 Delta: 33.4 on 2021 5:44am 08/07/22-0504 Prothromb Time August 08, 4.6 Ratio INR JACKIE CATION International Ratio 2021 5:44am 2.0 - 3.0 --- --Prophylaxis of Venous [...] 10:20am Urine Specific August 01, 1.010 1.002-1.035 [place] 2021 10:20am Urine Protein August 01, Negative [...] ind Comments 2021 10:20am Sodium Level August 06, 140 meq/L 600-069 5063 5:57am Potassium Level August 06, 4.1 meq/L 3.5-5.1 2021 5:57am Chloride Level August 06, 99 meq/L 98-107 2021 5:57am Carbon Dioxide Level August 06, 33.9 meq/L High 21.0-32.0 2021 5:57am Anion Gap August 06, 7 meq/L 5-15 2021 5:57am Blood Urea Nitrogen August 06, 40 mg/dL High 7-18 2021 5:57am Creatinine August 06, 1.20 mg/dL High 0.50-1.00 2021 5:57am Estimat Glomerular August 06, 50 mL/min Low >89 Filtration Rate 2021 5:57am Random Glucose August 06, 91 mg/dL 74-106 Note: Sul fasalazine and Sulfapyridine february 2022 5:57am spuriously af fect result. Calcium Level August 06, 8.9 mg/dL 8.5-10.1 2021 5:57am Total Bilirubin August 06, 0.5 mg/dL 0.2-1.0 2021 5:57am Aspartate Amino August 06, 16 U/L 15-37 Note: Batista lfasalazine and Sulfapyridine may Transf (AST/SGOT) 2021 5:57am spurio usly affect result. Alanine August 06 U/L 10-53 Note: Sulfasa lazine and Sulfapyridine may Aminotransferase 2021 5:57am spuriou sly affect result. (ALT/SGPT) Troponin I High July 30 9 pg/mL 3.0-54 Reference ranges are not [...] 0-100 Peptide 2021 5:51am Total Protein August 06, 7.3 g/dL 6.4-8.2 Delta: 7.9 on 2021 5:57am 08/05/22-829 Albumin August 06, 2.9 g/dL Low 3.4-5.0 2021 5:57am Alkaline Phosphatase August 06, 86 U/L 45-117 2021 5:57am Advance Directives Advance Directive Response Recorded Date/Time Advance Directives Yes July 30, 2022 12:0 0pm Health Care Surrogate Name and Raul Bond [phone] July 30, 2022 12:00pm Number Healthcare Surrogate Yes July 30, 2022 12: 00pm Living Will Yes July 30, 2022 12:0 0pm Out of Hospital DNR No July 30, 2022 12:0 0pm Chief Complaint and Reason for Visit Encounter Admit Date Chief Complaint Reason for Visit Discharged Inpatient July 30, 2022 hypoxemic respiratory Acute exacerbation of CHF (congestive heart failure) 9:25am failure,chf 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 Hospital Discharge Medications Medication Dose Units Route Sig Qty Days Order Status Instru ctions Date Atorvastatin 20 MG Oral Daily July Amiodarone MG July Discontinued 2021 Amiodarone 200 MG Oral Daily July Sertraline 100 MG Oral Daily July Warfarin 2.5 MG Oral Daily July Discontinued 2021 Diltiazem Hcl 120 MG Oral Daily July Fluticasone-Um 1 INH Inhalation Daily July Acti ve eclidin-Vilant (Do not 2021 er use) Ferrous 325 MG Oral BID@12 10 August Active Sulfate 00,170 2021 0 Prednisone 5 MG Oral Twice 4 July Active Daily 2021 Fluticasone 1 EACH Via Daily 60 July Furoate-Vilant Inhalation 2021 malachi Warfarin 6.5 MG Oral Daily 5 July Furosemide 20 MG Oral Twice 60 July Active Daily 2021 Amoxicillin-Po 1 TAB Oral Twice July t Clavulanate Daily 2021 Encounters Encounter Facility Location Admit/Visit Discharge/Departure Atte nding Date Date Provider Discharged Rayshawn JACOBO 5 July 30, 2022 August 08, 2022 9:3 1am [facility] 9:25am Encounter Diagnosis Onset Date Acute exacerbation of CHF (congestive heart failure) Acute exacerbation of chronic obstructive pulmonary di sease (COPD) Acute hypoxemic respiratory failure Shortness of breath Supratherapeutic INR Functional Status Query Response Date Recorded Comment Comprehension Ability No Impairment August 07, 2022 8:00pm Level of Consciousness Alert August 07, 2022 8:00pm Patient Orientation Person August 07, 2022 8:00pm Place Date/Time Situation Query Response Date Recorded Comment Bathing Ability Independent August 07, 2022 8:00pm Eating (Feeding) Ability Independent August 08, 2022 8:00am Level of [place] Independent August 07, 2022 8:00pm Toileting Ability Independent July 30, 2022 12:40pm Immunizations No known immunizations. Plan of Care Instructions Amoxicillin/Clavulanate Oral Tablet 500 mg/125 mg Prednisone Oral Tablet 10 mg Ferrous Sulfate Delayed Release Tablet 3 25 mg Furosemide Oral Tablet 20 mg Warfarin Oral Tablet 6 mg Please follow up with the Coumadin clini c to ensure dosing is up to date Social History Query Response Date Recorded Comment Tobacco Use In Past 30 Days No July 30, 2022 12:0 0pm Query Response Start Date Stop Date Smoking Status Never smoker Vital Signs Vital Reading Result Reference Range Collection Date/ Time Height 157.48 cm July 30, 2022 12:00pm Weight 75.9 kg August 08, 2022 5:26am Temperature 97.9 F 97.6 F-99.6 F August 08, 2022 8:00am Pulse 65 BPM 60-90 August 08, 2022 8:00am Respiration 19 RPM 12-August 08, 2022 8:00am Pulse Oximetry 94 % 95-100 August 08, 2022 8:00am Blood Pressure Systolic 110 100-140 August 08, 2022 8:00am Blood Pressure Diastolic 52 60-90 August 08, 2022 8:00am
--- OUTSIDE RECORDS SUMMARY | 2022-09-27 11:29 | XMS_ITS | Continuity of Care Document ---
:1955 Author Organization [employer] Address [address] [place] [address] Care Team Providers Name Role Phone Azam Mao Rounding Physician Daniela Chopra Primary Care Physician Daniela Chopar Primary Care Physician Cheryle Miller Admitting Physician [...] MG Oral Daily July 30, 2022 Active Qtpdyavkorr-Zuntnswzv-Ke 1 INH Inhalation (Do not Daily July [...] 5:07am Platelet Count August 04, 305 th/mm3 604-520 9108 5:07am Mean Platelet Volume August 04, 11.5 [...] 10:20am Urine Specific August 01, 1.010 1.002-1.035 [place] 2021 10:20am Urine Protein August 01, Negative [...] 10:20am Sodium Level August 04, 139 meq/L 962-168 1664 5:07am Potassium Level August 04, 4.0 meq/L [...] 0-100 Peptide 2021 5:51am Total Protein August 04, 7.0 g/dL 6.4-8.2 Delta: 7.8 on 2021 5:07am 08/02/22-1640 Albumin August 04, 2.7 g/dL Low 3.4-5.0 2021 5:07am Alkaline Phosphatase July 8, 80 U/L 45-117 2021 5:07am Advance Directives Advance Directive Response Recorded Date/Time Advance Directives Yes July 30, 2022 12:0 0pm Health Care Surrogate Name and Raul Bond [phone] July 30, 2022 12:00pm Number Healthcare Surrogate [...] 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,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 Acute hypoxemic respiratory failure Shortness of [...] Admitted Rayshawn HHPO 5 July 30, 2022 [facility] 9:25am Cheryle Encounter Diagnosis Onset Date [...] Eating (Feeding) Ability Independent August 04, 2022 12:00pm Level of [place] Independent August 04, 2022 8:00am Toileting Ability [...] F-99.6 F August 04, 2022 12:00pm Pulse 55 BPM 60-90 August 04, 2022 12:00pm Respiration 20 RPM 12-24 August 04, 2022 12:00pm Pulse Oximetry 86 % 95-100 August 04, 2022 3:43pm Blood Pressure Systolic 129 100-140 August 04, 2022 12:00pm Blood Pressure Diastolic 67 60-90 August 04, 2022 12:00pm
--- OUTSIDE RECORDS SUMMARY | 2022-09-27 11:29 | XMS_ITS | Continuity of Care Document ---
:1955 Author Organization [employer] Address [address] [place] [address] Care Team Providers Name Role Phone Azam Maoing Physician Daniela Chopra Primary Care Physician Daniela Chopra Primary Care Physician Cheryle Miller Admitting Physician Cheryle Miller Attending Physician Gunjan Bassett Rounding Physician Allergies, Adverse Reactions, Alerts No [...] MG Oral Daily July 30, 2022 Active Qeftddxorad-Ysdeesrcv-Bx 1 INH Inhalation (Do not Daily July [...] Range Result Comment White Blood Count July 31, 2022 14.1 th/mm3 High 4.0-11.0 7:34am Red Blood Count July 31, 2022 2.95 mil/mm3 Low 4.00-5.30 7:34am Hemoglobin July 31, 2022 8.2 gm/dL Low 11.6-15.3 7:34am Hematocrit July 31, 2022 26.2 % Low 35.0-46.0 7:34am Mean Corpuscular July 31, 2022 88.8 fL 80.0-100.0 Volume 7:34am Mean Corpuscular July 31, 2022 27.8 pg 27.0-34.0 Hemoglobin 7:34am Mean Corpuscular July 31, 2022 31.3 g/dL 30.5-35.1 Hemoglobin Concent 7:34am Red Cell Distribution July 31, 2022 15.3 % 11.6-17.2 Width 7:34am Platelet Count July 31, 2022 246 th/mm3 150-450 7:34am Mean Platelet Volume July 31, 2022 12.2 fL High 7.0-12.0 7:34am Differential Comment July 31, 2022 . 7:34am Neutrophils (%) (Auto) July 31, 2022 89.0 % High 16.0-70. 0 7:34am Immature Granulocyte % July 31, 2022 0.5 % 0-6 (Auto) 7:34am Lymphocytes (%) (Auto) July 31, 2022 5.2 % Low 9.0-44.0 7:34am Monocytes (%) (Auto) July 31, 2022 5.0 % 0.0-8.0 7:34am Eosinophils (%) (Auto) July 31, 2022 0.2 % 0.0-4.0 7:34am Basophils (%) (Auto) July 31, 2022 0.1 % 0.0-2.0 7:34am Neutrophils # (Auto) July 31, 2022 12.5 th/mm3 High 1.8-7.7 7:34am Immature Granulocyte # July 31, 2022 0.1 th/mm3 (Auto) 7:34am Lymphocytes # (Auto) July 31, 2022 0.7 th/mm3 Low 1.0-4.8 7:34am Monocytes # (Auto) July 31, 2022 0.7 th/mm3 0.0-0.9 7:34am Eosinophils # (Auto) July 31, 2022 0.0 th/mm3 0.0-0.4 7:34am Basophils # (Auto) July 31, 2022 0.0 th/mm3 0.0-0.2 7:34am Prothrombin Time July 31, 2022 39.8 sec High 9.8-11.6 Del ta: 59.7 on 7:34am 07/30/22-075 Prothromb Time July 31, 2022 4.0 Ratio INR INDICATION International Ratio 7:34am ---- 2.0 - 3.0 --- --Prophylaxis of Venous [...] 23.4-31.7 Thromboplast Time 7:50am Sodium Level July 31, 2022 139 meq/L 136-145 7:34am Potassium Level July 31, 2022 4.3 meq/L 3.5-5.1 7:34am Chloride Level July 31, 2022 108 meq/L High 98-107 7:34am Carbon Dioxide Level July 31, 2022 24.1 meq/L 21.0-32.0 7:34am Anion Gap July 31, 2022 7 meq/L 5-15 7:34am Blood Urea Nitrogen July 31, 2022 29 mg/dL High 7-18 7:34am Creatinine July 31, 2022 1.30 mg/dL High 0.50-1.00 7:34am Estimat Glomerular July 31, 2022 46 mL/min Low >89 Filtration Rate 7:34am Random Glucose July 31, 2022 93 mg/dL 74-106 Note: Sulfasalazine and Sulfapyridine may 7:34am spuriously aff ect result. Calcium Level July 31, 2022 8.7 mg/dL 8.5-10.1 7:34am Total Bilirubin July 30, 2022 1.0 mg/dL [...] years of age. Sensitivity 7:50am Results of th is test should always be interpreted in conjunction wi the patient's medical history, clinical presentation a nd other findings. 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 Acute hypoxemic respiratory failure Shortness of [...] Discharge/Departure Atte nding Date Date Provider Admitted [facility] 5 July 30, 20[facility] Cheryle Encounter Diagnosis Onset Date Acute exacerbation of CHF (congestive heart failure) Acute exacerbation of chronic obstructive pulmonary di sease (COPD) Acute hypoxemic respiratory failure Shortness of breath Supratherapeutic INR Functional Status Query Response Date Recorded Comment Comprehension Ability No Impairment August 01, 2022 4:00am Level of Consciousness Alert August 01, 2022 4:00am Patient Orientation Person August 01, 2022 4:00am Place Date/Time Situation Query Response Date Recorded Comment Bathing Ability Independent August 01, 2022 6:00am Eating (Feeding) Ability Independent July 31, 2022 6:00pm Level of [place] Independent August 01, 2022 6:00am Toileting Ability Independent July 30, 2022 12:40pm [...] 30, 2022 12:00pm Weight 79.3 kg July 31, 2022 6:00am Temperature 97.9 F 97.6 F-99.6 F August 01, 2022 4:00am Pulse 70 BPM 60-90 August 01, 2022 4:00am Respiration 20 RPM 12-24 August 01, 2022 4:00am Pulse Oximetry 95 % 95-100 August 01, 2022 4:00am Blood Pressure Systolic 98 100-140 August 01, 2022 4:00am Blood Pressure Diastolic 60 60-90 August 01, 2022 4:00am
--- OUTSIDE RECORDS SUMMARY | 2022-09-27 11:29 | XMS_ITS | Continuity of Care Document ---
:1955 Author Organization [employer] Address [address] [place] [address] Care Team Providers Name Role Phone Azam [...] MG Oral Daily July 30, 2022 Active Gpersicmauq-Vmclpbpda-Cf 1 INH Inhalation (Do not Daily July [...] Date Status XR chest 1V single AP August 02, 2022 completed XR chest 1V single AP July 30, 2022 completed Relevant Diagnostic Tests and/or Laboratory Data Laboratory Results Test Date/Time Result Interp. Ref. Range Result Comment White Blood Count August 02, 8.8 th/mm3 4.0-11.0 2021 7:29am Red Blood Count August 02, 2.89 mil/mm3 Low 4.00-5.30 2021 7:29am Hemoglobin August 02, 8.1 gm/dL Low 11.6-15.3 2021 7:29am Hematocrit August 02, 25.7 % Low 35.0-46.0 2021 7:29am Mean Corpuscular August 02, 88.9 fL 80.0-100.0 Volume 2021 7:29am Mean Corpuscular August 02, 28.0 pg 27.0-34.0 Hemoglobin 2021 7:29am Mean Corpuscular August 02, 31.5 g/dL 30.5-35.1 Hemoglobin Concent 2021 7:29am Red Cell August 02, 15.2 % 11.6-17.2 Distribution Width 2021 7:29am Platelet Count August 02, 262 th/mm3 250-136 8436 7:29am Mean Platelet Volume August 02, 11.7 fL 7.0-12.0 2021 7:29am Differential Comment August 02, . 2021 7:29am Neutrophils (%) August 02, 83.0 % High 16.0-70.0 (Auto) 2021 7:29am Immature Granulocyte August 02, 0.3 % 0-6 % (Auto) 2021 7:29am Lymphocytes (%) August 02, 11.4 % 9.0-44.0 (Auto) 2021 7:29am Monocytes (%) (Auto) August 02, 4.4 % 0.0-8.0 2021 7:29am Eosinophils (%) August 02, 0.7 % 0.0-4.0 (Auto) 2021 7:29am Basophils (%) (Auto) August 02, 0.2 % 0.0-2.0 2021 7:29am Neutrophils # (Auto) August 02, 7.3 th/mm3 1.8-7.7 2021 7:29am Immature Granulocyte August 02, 0.0 th/mm3 # (Auto) 2021 7:29am Lymphocytes # (Auto) August 02, 1.0 th/mm3 1.0-4.8 2021 7:29am Monocytes # (Auto) August 02, 0.4 th/mm3 0.0-0.9 2021 7:29am Eosinophils # (Auto) August 02, 0.1 th/mm3 0.0-0.4 2021 7:29am Basophils # (Auto) August 02, 0.0 th/mm3 0.0-0.2 2021 7:29am Prothrombin Time August 02, 22.4 sec High 9.8-11.6 2021 7:29am Prothromb Time August 02, 2.2 Ratio INR INDIC ATION International Ratio 2021 7:29am 2.0 - 3.0 --- --Prophylaxis of Venous [...] 10:20am Urine Specific August 01, 1.010 1.002-1.035 [place] 2021 10:20am Urine Protein August 01, Negative [...] ind Comments 2021 10:20am Sodium Level August 02, 138 meq/L 388-239 4849 4:40pm Potassium Level August 02, 4.4 meq/L 3.5-5.1 2021 4:40pm Chloride Level August 02, 105 meq/L 98-107 2021 4:40pm Carbon Dioxide Level August 02, 27.2 meq/L 21.0-32.0 2021 4:40pm Anion Gap August 02, 6 meq/L 5-15 2021 4:40pm Blood Urea Nitrogen August 02, 37 mg/dL High 7-18 2021 4:40pm Creatinine August 02, 1.10 mg/dL High 0.50-1.00 2021 4:40pm Estimat Glomerular August 02, 56 mL/min Low >89 Filtration Rate 2021 4:40pm Random Glucose August 02, 127 mg/dL High 74-106 Note: Sulf asalazine and Sulfapyridine february 2022 4:40pm spuriously af fect result. Calcium Level August 02, 8.7 mg/dL 8.5-10.1 2021 4:40pm Total Bilirubin August 02, 0.8 mg/dL 0.2-1.0 2021 4:40pm Aspartate Amino August 02, 18 U/L 15-37 Note: Sul fasalazine and Sulfapyridine may Transf (AST/SGOT) 2021 4:40pm spurio usly affect result. Alanine August 02, 13 U/L 10-53 Note: Sulfasal azine and Sulfapyridine may Aminotransferase 2021 4:40pm spuriou sly affect result. (ALT/SGPT) Troponin I [...] a nd other findings. B-Type Natriuretic August 01, 181 pg/mL High 0-100 Peptide 2021 7:52am Total Protein August 02, 7.8 g/dL 6.4-8.2 Delta: 7.2 on 2021 4:40pm 08/02/22 Albumin August 02, 3.0 g/dL Low 3.4-5.0 2021 4:40pm Alkaline Phosphatase August 02, 90 U/L 45-117 2021 4:40pm Advance Directives Advance Directive Response Recorded Date/Time Advance Directives Yes July 30, 2022 12:0 0pm Health Care Surrogate Name and Raul Bond [phone] July 30, 2022 12:00pm Number Healthcare Surrogate [...] Atte nding Date Date Provider Admitted Rayshawn [facility] 5 July 30, 2022 [facility] 9:25am Cheryle Encounter Diagnosis Onset Date Acute exacerbation of CHF (congestive heart failure) Acute exacerbation of chronic obstructive pulmonary di sease (COPD) Acute hypoxemic respiratory failure Shortness of breath Supratherapeutic INR Functional Status Query Response Date Recorded Comment Comprehension Ability No Impairment August 02, 2022 4:00pm Level of Consciousness Alert August 02, 2022 4:00pm Patient Orientation Person August 02, 2022 4:00pm Place Date/Time Situation Query Response Date Recorded Comment Bathing Ability Independent August 02, 2022 5:50pm Eating (Feeding) Ability Independent August 02, 2022 5:50pm Level of [place] Independent August 02, 2022 5:50pm Toileting Ability Independent July 30, 2022 12:40pm [...] 157.48 cm July 30, 2022 12:00pm Weight 77.5 kg August 02, 2022 6:00am Temperature 98.0 F 97.6 F-99.6 F August 02, 2022 4:00pm Pulse 66 BPM 60-90 August 02, 2022 4:00pm Respiration 20 RPM 12-August 02, 2022 4:00pm Pulse Oximetry 94 % 95-100 August 02, 2022 4:00pm Blood Pressure Systolic 114 100-140 August 02, 2022 4:00pm Blood Pressure Diastolic 51 60-90 August 02, 2022 4:00pm
--- OUTSIDE RECORDS SUMMARY | 2022-09-27 11:29 | XMS_ITS | Continuity of Care Document ---
:1955 Author Organization [employer] Address [address] 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
--- OUTSIDE RECORDS SUMMARY | 2022-09-27 11:29 | XMS_ITS | Continuity of Care Document ---
:1955 Author Organization [employer] Address [address] [place] [address] Care Team Providers Name Role Phone Azam [...] MG Oral Daily July 30, 2022 Active Nsnqcpvjyli-Pyaidbtvw-Kp 1 INH Inhalation (Do not Daily July [...] Status XR chest 1V single AP August 03, 2022 completed XR chest 1V single AP August 02, 2022 completed XR chest 1V single AP July 30, 2022 completed Relevant Diagnostic Tests and/or Laboratory Data Laboratory Results Test Date/Time Result Interp. Ref. Range Result Comment White Blood Count August 03, 8.7 th/mm3 4.0-11.0 2021 7:06am Red Blood Count August 03, 2.89 mil/mm3 Low 4.00-5.30 2021 7:06am Hemoglobin August 03, 8.1 gm/dL Low 11.6-15.3 2021 7:06am Hematocrit August 03, 25.6 % Low 35.0-46.0 2021 7:06am Mean Corpuscular August 03, 88.6 fL 80.0-100.0 Volume 2021 7:06am Mean Corpuscular August 03, 28.0 pg 27.0-34.0 Hemoglobin 2021 7:06am Mean Corpuscular August 03, 31.6 g/dL 30.5-35.1 Hemoglobin Concent 2021 7:06am Red Cell August 03, 15.0 % 11.6-17.2 Distribution Width 2021 7:06am Platelet Count August 03, 295 th/mm3 163-533 4775 7:06am Mean Platelet Volume August 03, 11.5 fL 7.0-12.0 2021 7:06am Differential Comment August 03, . 2021 7:06am Neutrophils (%) August 03, 80.3 % High 16.0-70.0 (Auto) 2021 7:06am Immature Granulocyte August 03, 0.7 % 0-6 % (Auto) 2021 7:06am Lymphocytes (%) August 03, 13.0 % 9.0-44.0 (Auto) 2021 7:06am Monocytes (%) (Auto) August 03, 4.9 % 0.0-8.0 2021 7:06am Eosinophils (%) August 03, 0.9 % 0.0-4.0 (Auto) 2021 7:06am Basophils (%) (Auto) August 03, 0.2 % 0.0-2.0 2021 7:06am Neutrophils # (Auto) August 03, 7.0 th/mm3 1.8-7.7 2021 7:06am Immature Granulocyte August 03, 0.1 th/mm3 # (Auto) 2021 7:06am Lymphocytes # (Auto) August 03, 1.1 th/mm3 1.0-4.8 2021 7:06am Monocytes # (Auto) August 03, 0.4 th/mm3 0.0-0.9 2021 7:06am Eosinophils # (Auto) August 03, 0.1 th/mm3 0.0-0.4 2021 7:06am Basophils # (Auto) August 03, 0.0 th/mm3 0.0-0.2 2021 7:06am Prothrombin Time August 03, 20.5 sec High 9.8-11.6 2021 7:06am Prothromb Time August 03, 2.0 Ratio INR INDIC ATION International Ratio 2021 7:06am 2.0 - 3.0 --- --Prophylaxis of Venous Thrombosis (High Risk Batista rgery) Treatment of Venous Thrombosis Treatment of Pulmonary Embolism Prevention of Systemic Embolism Tissue Heart Valves Acute Myocard ial Infarction Valvular Hear t Disease Atrial Fibril lation 2.5 - 3.5 --- --Mechanical Prosthetic Valves, Preventative Therapy for Recurrent Myocardial In [facility], Consistent with FDA Recommend ations. Activated Partial July 30, 48.1 sec High 23.4-31.7 Thromboplast Time 2021 7:50am Urine Color August 01, Yellow Yellw/Straw 2021 10:20am Urine Clarity August 01, Clear Clear 2021 10:20am Urine pH August 01, 6.0 5.0-8.5 2021 10:20am Urine Specific August 01, 1.010 1.002-1.035 [place] 2021 10:20am Urine Protein August 01, Negative [...] 10:20am Sodium Level August 02, 138 meq/L [phone] 4:40pm Potassium Level August 02, 4.4 meq/L [...] azine and Sulfapyridine may Aminotransferase 2021 4:40pm spurdcu brionna affect result. (ALT/SGPT) Troponin I High July 30, 9 pg/mL 3.0-54 Reference ranges are not established for patients that are less than 21 years of age or greater than 91 years of age. Sensitivity 2021 7:50am Results of t his test should always be interpreted in conjunction wi th the patient's medical history, clinical presentation a nd other findings. 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 Acute hypoxemic respiratory failure Shortness of hector [...] Admitted Rayshawn [facility] 5 July 30, 2022 [facility] 9:25am Cheryle Encounter Diagnosis Onset Date [...] Recorded Comment Bathing Ability Moderate Assistance August 03, 2022 8:00am Eating (Feeding) Ability Independent August 02, 2022 5:50pm Level of [place] Independent August 03, 2022 5:22am Toileting Ability Independent July 30, 2022 12:40pm [...] 157.48 cm July 30, 2022 12:00pm Weight 77.9 kg August 03, 2022 5:21am Temperature 97.9 F 97.6 F-99.6 F August 03, 2022 11:08am Pulse 71 BPM 60-90 August 03, 2022 11:51am Respiration 18 RPM 12-24 August 03, 2022 11:51am Pulse Oximetry 96 % 95-100 August 03, 2022 11:52am Blood Pressure Systolic 120 100-140 August 03, 2022 11:08am Blood Pressure Diastolic 56 60-90 August 03, 2022 11:08am
--- OUTSIDE RECORDS SUMMARY | 2022-09-27 11:29 | XMS_ITS | Continuity of Care Document ---
:1955 Author Organization [employer] Address [address] 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
--- OUTSIDE RECORDS SUMMARY | 2022-09-27 11:29 | XMS_ITS | Continuity of Care Document ---
:1955 Author Organization [employer] Address [address] [place] [address] Care Team Providers Name Role Phone Azam Mao Physician Daniela Chopra Primary Care Physician Daniela [...] MG Oral Daily July 30, 2022 Active Ucrjvyovhos-Pppeqvzwk-Av 1 INH Inhalation (Do not Daily July 30, 2022 Active lanter [Trelegy Ellipta] use) Discontinued Medications Medication Dose Units Route Sig Start Date Discontinued Date Status Amiodarone MG July 30, 2022 July 30 Discontinued Problem List Active Problems Medical Problem Onset Date Status Acute exacerbation of CHF (congestive heart failure) Active Shortness of breath Active Acute hypoxemic respiratory failure Acti ve Acute exacerbation of chronic obstructive pulmonary disease [...] 99 mg/dL 74-106 Note: Sulfasalazine and Sulfapyridine february 7:50am spuriously aff ect result. 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 Acute hypoxemic respiratory failure Shortness of hector ath Hospital Discharge Instructions No known hospital discharge [...] Atte nding Date Date Provider Admitted Rayshawn [facility] ED July 30, Inpatient Health ADMITTING 2021 9:25am Cheryle Encounter Diagnosis Onset Date Acute exacerbation of CHF (congestive heart failure) Acute exacerbation of chronic obstructive pulmonary di sease (COPD) Acute hypoxemic respiratory failure Shortness of breath Functional Status Query Response Date Recorded Comment Level of Consciousness Alert July 30, 2022 7:47am Patient Orientation Person July 30, 2022 7:47am [address] Date/Time Situation Immunizations No known immunizations. Plan of Care No Known Plan of Care Information Social History Query Response Date Recorded Comment Tobacco Use In Past 30 Days Yes July 30, 2022 7:47 am Query Response Start Date Stop Date Smoking Status Former smoker Vital Signs Vital Reading Result Reference Range Collection Date/ Time Height 157.48 cm July 30, 2022 7:45am Weight 79.3 kg July 30, 2022 7:45am Temperature 98.3 F 97.6 F-99.6 F July 30, 2022 7:45am Pulse 75 BPM 60-90 July 30, 2022 11:40am Respiration 24 RPM 12-24 July 30, 2022 11:40am Pulse Oximetry 95 % 95-100 July 30, 2022 11:40am Blood Pressure Systolic 108 100-140 July 30, 2022 7:45am Blood Pressure Diastolic 71 60-90 July 30, 2022 7:45am
--- OUTSIDE RECORDS SUMMARY | 2022-09-27 11:29 | XMS_ITS | Continuity of Care Document ---
:1955 Author Organization [employer] Address [address] [place] [address] Care Team Providers Name Role Phone Azam [...] MG Oral Daily July 30, 2022 Active Obqmshjtauq-Igqnisagl-Je 1 INH Inhalation (Do not Daily July [...] 7:06am Platelet Count August 03, 295 th/mm3 [phone] 7:06am Mean Platelet Volume August 03, 11.5 [...] Valves, Preventative Therapy for Recurrent Myocardial In [facility], Consistent with FDA Recommend ations. 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
--- OUTSIDE RECORDS SUMMARY | 2022-09-27 11:29 | XMS_ITS | Continuity of Care Document ---
:1955 Author Organization [employer] Address [address] [place] [address] Care Team Providers Name Role Phone Azam Mao Physician Daniela Chopra Primary Care Physician [phone] Daniela Chopra Primary Care Physician [phone] Allergies, Adverse Reactions, Alerts No known allergies. Medications No medication information available. Problem List No problem information available. Procedures Procedure Date Status XR chest 1V [...] July 30, 2022 0.0 th/mm3 0.0-0.2 7:50am Sodium Level July 30, 2022 137 [...] history, clinical presentation a nd other findings. Total Protein July 30, 2022 7.5 g/dL 6.4-8.2 7:50am Albumin July 30, 2022 3.1 g/dL Low 3.4-5.0 7:50am Alkaline Phosphatase July 30, 2022 93 U/L 45-117 7:50am Advance Directives Advance Directive Response Recorded Date/Time Advance Directives No July 30, 2022 7:47 am Chief Complaint and Reason for Visit Encounter Admit Date Chief Complaint Reason for Visit Registered Emergency July 30, 2022 7:24am [facility] Hospital Discharge Instructions No known hospital discharge instructions. Encounters Encounter Facility Location Admit/Visit Discharge/Departure Atte nding Date Date Provider Registered [facility] ED July 30, [facility] 2021 7:24am Functional Status Query Response Date Recorded Comment [...] F-99.6 F July 30, 2022 7:45am Pulse 74 BPM 60-90 July 30, 2022 8:03am Respiration 20 RPM 12-July 30, 2022 8:03am Pulse Oximetry 95 % 95-100 July 30, 2022 7:45am Blood Pressure Systolic 108 100-140 July 30, 2022 7:45am Blood Pressure Diastolic 71 60-90 July 30, 2022 7:45am
--- OUTSIDE RECORDS SUMMARY | 2022-09-27 11:29 | XMS_ITS | Continuity of Care Document ---
:1955 Author Organization [employer] Address [address] [place] [address] Care Team Providers Name Role Phone Azam Mao Rounding Physician Daniela Chopra Primary Care Physician Daniela Chopra Primary Care Physician Gunjan Bassett Rounding Physician Corey Lopez Rounding Physician Damián Spencer Admitting Physician Damián Spencer Attending Physician Allergies, Adverse Reactions, Alerts No [...] 2021 Prednisone 5 MG Oral Twice Daily 4 July 28 0, Active 2021 Fluticasone 1 EACH Via Inhalation Daily 60 30 Octob er 10, Active Furoate-Vilanterol 2021 [Breo Ellipta] Warfarin 6.5 MG Oral Daily 5 August 06, Act gabrielle 2021 Discontinued Medications Medication Dose Units Route Sig [...] 5:57am Platelet Count August 06, 356 th/mm3 [phone] 5:57am Mean Platelet Volume August 06, 11.4 [...] th/mm3 0.0-0.2 2021 5:57am Prothrombin Time August 06, 30.3 sec High 9.8-11.6 2021 5:57am Prothromb Time August 06, 3.0 Ratio INR JACKIE CATION International Ratio 2021 5:57am 2.0 - 3.0 --- --Prophylaxis of Venous [...] 10:20am Urine Specific August 01, 1.010 1.002-1.035 [place] 2021 10:20am Urine Protein August 01, Negative [...] 10:20am Sodium Level August 06, 140 meq/L [phone] 5:57am Potassium Level August 06, 4.1 meq/L [...] g/dL 6.4-8.2 Delta: 7.9 on 2021 5:57am 08/05/22-30 Albumin August 06, 2.9 g/dL Low 3.4-5.0 2021 5:57am Alkaline Phosphatase August 06, 86 U/L 45-117 2021 5:57am Advance Directives Advance Directive Response Recorded Date/Time Advance Directives Yes July 30, 2022 12:0 0pm Health Care Surrogate Name and Raul Bond [phone] July 30, 2022 12:00pm Number Healthcare Surrogate [...] 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,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 Acute hypoxemic respiratory failure Shortness of hector [...] 2021 0 Prednisone 5 MG Oral Twice July Daily 2021 Fluticasone 1 EACH Via Daily 60 July Furoate-Vilant Inhalation 2021 malachi Warfarin 6.5 MG Oral Daily July Encounters Encounter Facility Location Admit/Visit Discharge/Departure Atte nding Date Date Provider Admitted [facility] 5 July 30, 2022 Yahaira Spencer [facility] 9:25am Encounter Diagnosis Onset Date Acute [...] Query Response Date Recorded Comment Bathing Ability Minimum Assistance August 06, 2022 8:00am Eating (Feeding) Ability Independent August 06, 2022 12:00p m Level of [place] Independent August 06, 2022 8:00am Toileting Ability Independent July 30, 2022 12:40pm Immunizations No known immunizations. Plan of Care Instructions Please follow up with the Coumadin clini c to ensure dosing is up to date Social History Query Response Date Recorded Comment Tobacco Use In Past 30 Days No July 30, 2022 12:0 0pm Query Response Start Date Stop Date Smoking Status Never smoker Vital Signs Vital Reading Result Reference Range Collection Date/ Time Height 157.48 cm July 30, 2022 12:00pm Weight 76.9 kg August 06, 2022 6:00am Temperature 98.3 F 97.6 F-99.6 F August 06, 2022 12:00pm Pulse 83 BPM 60-90 August 06, 2022 12:00pm Respiration 18 RPM 12-24 August 06, 2022 12:00pm Pulse Oximetry 94 % 95-100 August 06, 2022 12:00pm Blood Pressure Systolic 121 100-140 August 06, 2022 12:00pm Blood Pressure Diastolic 58 60-90 August 06, 2022 12:00pm
--- OUTSIDE RECORDS SUMMARY | 2022-09-27 11:29 | XMS_ITS | Continuity of Care Document ---
:1955 Author Organization [employer] Address [address] [place] [address] Care Team Providers Name Role Phone Azam [...] MG Oral Daily July 30, 2022 Active Xnhrsyichwx-Oypsjtdwm-Sx 1 INH Inhalation (Do not Daily July [...] 7:29am Platelet Count August 02, 262 th/mm3 [phone] 7:29am Mean Platelet Volume August 02, 11.7 [...] 10:20am Urine Specific August 01, 1.010 1.002-1.035 [place] 2021 10:20am Urine Protein August 01, Negative [...] Comments 2021 10:20am Sodium Level August 02, 141 meq/L [phone] 7:29am Potassium Level August 02, 4.1 meq/L 3.5-5.1 Delta: 5. 1 on 2021 7:29am 08/01/22-0752 Chloride Level August 02, 106 meq/L 98-107 2021 7:29am Carbon Dioxide Level August 02, 32.0 meq/L 21.0-32.0 2021 7:29am Anion Gap August 02, 3 meq/L Low 5-15 2021 7:29am Blood Urea Nitrogen August 02, 32 mg/dL High -2021 7:29am Creatinine August 02, 1.00 mg/dL 0.50-1.00 2021 7:29am Estimat Glomerular August 02, 63 mL/min Low >89 Filtration Rate 2021 7:29am Random Glucose August 02, 73 mg/dL Low 74-106 Note: Sulf asalazine and Sulfapyridine february 2022 7:29am spuriously af fect result. Calcium Level August 02, 8.6 mg/dL 8.5-10.1 2021 7:29am Total Bilirubin August 02, 0.7 mg/dL 0.2-1.0 2021 7:29am Aspartate Amino August 02, 18 U/L 15-37 Note: Sul fasalazine and Sulfapyridine may Transf (AST/SGOT) 2021 7:29am spurio usly affect result. Alanine August 02, 12 U/L 10-53 Note: Sulfasal azine and Sulfapyridine may Aminotransferase 2021 7:29am spuriou sly affect result. (ALT/SGPT) Troponin I [...] Peptide 2021 7:52am Total Protein August 02, 7.2 g/dL 6.4-8.2 2021 7:29am Albumin August 02, 2.7 g/dL Low 3.4-5.0 2021 7:29am Alkaline Phosphatase August 02, 82 U/L 45-117 2021 7:29am Advance Directives Advance Directive Response Recorded Date/Time Advance Directives Yes July 30, 2022 12:0 0pm Health Care Surrogate Name and Raul Bond [phone] July 30, 2022 12:00pm Number Healthcare Surrogate [...] 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,rn endoscopy Acute hypoxemic respiratory failure Shortness of hector [...] Admitted Rayshawn JACOBOPO 5 July 30, 2022 [facility] 9:25am Cheryle Encounter Diagnosis Onset Date Acute exacerbation of CHF (congestive heart failure) Acute exacerbation of chronic obstructive pulmonary di sease (COPD) Acute hypoxemic respiratory failure Shortness of breath Supratherapeutic INR Functional Status Query Response Date Recorded Comment Comprehension Ability No Impairment August 02, 2022 8:00am Level of Consciousness Alert August 02, 2022 8:00am Patient Orientation Person August 02, 2022 8:00am Place Date/Time Situation Query Response Date Recorded Comment Bathing Ability Independent August 02, 2022 10:00am Eating (Feeding) Ability Independent August 02, 2022 8:00am Level of [place] Independent August 02, 2022 10:00am Toileting Ability Independent July 30, 2022 12:40pm [...] 77.5 kg August 02, 2022 6:00am Temperature 97.4 F 97.6 F-99.6 F August 02, 2022 8:00am Pulse 66 BPM 60-90 August 02, 2022 11:41am Respiration 16 RPM 12-August 02, 2022 11:41am Pulse Oximetry 95 % 95-100 August 02, 2022 8:00am Blood Pressure Systolic 116 100-140 August 02, 2022 8:00am Blood Pressure Diastolic 60 60-90 August 02, 2022 8:00am
--- OUTSIDE RECORDS SUMMARY | 2022-09-27 11:29 | XMS_ITS | Continuity of Care Document ---
:1955 Author Organization [employer] Address [address] [place] [address] Care Team Providers Name Role Phone Azam Mao Rounding Physician Daniela Chopra Primary Care Physician Daniela Chopra Primary Care Physician Cheryle Miller Admitting Physician Cheryle Miller Attending Physician Jair Wiggins Rounding Physician Allergies, Adverse Reactions, Alerts No [...] MG Oral Daily July 30, 2022 Active Xfiarnzetgz-Cxxkztwyt-Gc 1 INH Inhalation (Do not Daily July [...] High 9.8-11.6 Del ta: 59.7 on 7:34am 07/30/22-0750 Prothromb Time July 31, 2022 4.0 Ratio [...] Health Care Surrogate Name and Raul Bond [phone] July 30, 2022 12:00pm Number Healthcare Surrogate [...] 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,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 Acute hypoxemic respiratory failure Shortness of hector [...] Discharge/Departure Atte nding Date Date Provider Admitted [place] [facility] Cheryle Encounter Diagnosis Onset Date Acute exacerbation of CHF (congestive heart failure) Acute exacerbation of chronic obstructive pulmonary di sease (COPD) Acute hypoxemic respiratory failure Shortness of breath Supratherapeutic INR Functional Status Query Response Date Recorded Comment Comprehension Ability No Impairment July 31, 2022 12:00pm Level of Consciousness Alert July 31, 2022 12:00pm Patient Orientation Person July 31, 2022 12:00pm Place Date/Time Situation Query Response Date Recorded Comment Bathing Ability Independent July 31, 2022 2:00pm Eating (Feeding) Ability Independent July 31, 2022 12:00pm Level of [place] Independent July 31, 2022 2:00pm Toileting Ability Independent July 30, [...] 79.3 kg July 31, 2022 6:00am Temperature 98.2 F 97.6 F-99.6 F July 31, 2022 4:00pm Pulse 67 BPM 60-90 July 31, 2022 4:15pm Respiration 20 RPM 12-24 July 31, 2022 4:15pm Pulse Oximetry 97 % 95-100 July 31, 2022 4:00pm Blood Pressure Systolic 102 100-140 July 31, 2022 4:00pm Blood Pressure Diastolic 49 60-90 July 31, 2022:00pm
--- OUTSIDE RECORDS SUMMARY | 2022-09-27 11:29 | XMS_ITS | Continuity of Care Document ---
:1955 Author Organization [employer] Address [address] 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 Acute hypoxemic respiratory failure Shortness of hector [...] er use) Ferrous 325 MG Oral BID@12 July Sulfate 00,170 2021 0 Prednisone 5 MG Oral Twice July Daily 2021 Fluticasone 1 EACH Via Daily 60 July Furoate-Vilant Inhalation 2021 malachi Warfarin 6.5 MG Oral Daily July Encounters Encounter Facility Location Admit/Visit Discharge/Departure Atte nding Date Date Provider Admitted [facility] 5 July 30, 2022 Yahaira Spencer [facility] 9:25am Encounter Diagnosis Onset Date [...] Eating (Feeding) Ability Independent August 05, 2022 6:00pm Level of [place] Independent August 05, 2022 8:00pm Toileting Ability Independent July 30, [...] 76.9 kg August 06, 2022 6:00am Temperature 98.5 F 97.6 F-99.6 F August 06, 2022 8:00am Pulse 54 BPM 60-90 August 06, 2022 8:00am Respiration 19 RPM 12-24 August 06, 2022 8:00am Pulse Oximetry 93 % 95-100 August 06, 2022 8:00am Blood Pressure Systolic 115 100-140 August 06, 2022 8:00am Blood Pressure Diastolic 55 60-90 August 06, 2022 8:00am
--- OUTSIDE RECORDS SUMMARY | 2022-09-27 11:29 | XMS_ITS | Continuity of Care Document ---
:1955 Author Organization [email or web address] Address [address] 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 Acute hypoxemic respiratory failure Shortness of hector [...] Discharge/Departure Atte nding Date Date Provider Admitted [facility] 5 July 30, 2022 [facility] 9:25am Cheryle Encounter Diagnosis Onset Date Acute exacerbation of CHF (congestive heart failure) Acute exacerbation of chronic obstructive pulmonary di sease (COPD) Acute hypoxemic respiratory failure Shortness of breath Supratherapeutic INR Functional Status Query Response Date Recorded Comment Comprehension Ability No Impairment July 31, 2022 8:00am Level of Consciousness Alert July 31, 2022 8:00am Patient Orientation Person July 31, 2022 8:00am Place Date/Time Situation Query Response Date Recorded Comment Bathing Ability Independent July 31, 2022 12:00pm Eating (Feeding) Ability Independent July 31, 2022 8:00am Level of [place] Independent July 31, 2022 12:00pm Toileting Ability Independent July 30, 2022 12:40pm [...] 79.3 kg July 31, 2022 6:00am Temperature 97.2 F 97.6 F-99.6 F July 31, 2022 12:00pm Pulse 75 BPM 60-90 July 31, 2022 12:46pm Respiration 20 RPM 12-July 31, 2022 12:46pm Pulse Oximetry 95 % 95-100 July 31, 2022 12:00pm Blood Pressure Systolic 103 100-140 July 31, 2022 12:00pm Blood Pressure Diastolic 51 60-90 July 31, 2022 12:00pm
--- OUTSIDE RECORDS SUMMARY | 2022-09-27 11:29 | XMS_ITS | Continuity of Care Document ---
:1955 Author Organization [employer] Address [address] [place] [address] Care Team Providers Name Role Phone Azam Mao Rounding Physician Daniela Chopra Primary Care Physician [phone] Daniela Chopra Primary Care Physician Cheryle Miller [...] MG Oral Daily July 30, 2022 Active Nlfuucnntwx-Pczqrpfqc-Jl 1 INH Inhalation (Do not Daily July [...] 7:29am Platelet Count August 02, 262 th/mm3 [phone] 7:29am Mean Platelet Volume August 02, 11.7 [...] 10:20am Urine Specific August 01, 1.010 1.002-1.035 [place] 2021 10:20am Urine Protein August 01, Negative [...] 10:20am Sodium Level August 02, 141 meq/L [phone] 7:29am Potassium Level August 02, 4.1 meq/L [...] Health Care Surrogate Name and Raul Bond [phone] July 30, 2022 12:00pm Number Healthcare Surrogate [...] 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,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 Acute hypoxemic respiratory failure Shortness of hector [...] Admitted Rayshawn JACOBOPO 5 July 30, 2022 [facility] 9:25am Cheryle Encounter Diagnosis Onset Date Acute [...] Independent August 02, 2022 8:00am Level of [place] Independent August 02, 2022 10:00am Toileting Ability [...] 77.5 kg August 02, 2022 6:00am Temperature 99.1 F 97.6 F-99.6 F August 02, 2022 12:00pm Pulse 71 BPM 60-90 August 02, 2022 3:44pm Respiration 18 RPM 12-August 02, 2022 3:44pm Pulse Oximetry 93 % 95-100 August 02, 2022 12:00pm Blood Pressure Systolic 125 100-140 August 02, 2022 12:00pm Blood Pressure Diastolic 58 60-90 August 02, 2022 12:00pm
--- OUTSIDE RECORDS SUMMARY | 2022-09-27 11:29 | XMS_ITS | Continuity of Care Document ---
:1955 Author Organization [employer] Address [address] 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 Acute hypoxemic respiratory failure Shortness of hector [...] Discharge/Departure Atte nding Date Date Provider Admitted [place] [facility] Cheryle Encounter Diagnosis Onset Date Acute exacerbation of CHF (congestive heart failure) Acute exacerbation of chronic obstructive pulmonary di sease (COPD) Acute hypoxemic respiratory failure Shortness of breath Supratherapeutic INR Functional Status Query Response Date Recorded Comment Comprehension Ability No Impairment July 31, 2022 8:00pm Level of Consciousness Alert July 31, 2022 8:00pm Patient Orientation Person July 31, 2022 8:00pm Place Date/Time Situation Query Response Date Recorded Comment Bathing Ability Independent July 31, 2022 10:00pm Eating (Feeding) Ability Independent July 31, 2022 6:00pm Level of [place] Independent July 31, 2022 10:00pm Toileting Ability Independent July 30, 2022 12:40pm [...] 79.3 kg July 31, 2022 6:00am Temperature 97 F 97.6 F-99.6 F July 31, 2022 8:00pm Pulse 73 BPM 60-90 July 31, 2022 8:00pm Respiration 18 RPM 12-24 July 31, 2022 8:00pm Pulse Oximetry 94 % 95-100 July 31, 2022 8:00pm Blood Pressure Systolic 96 100-140 July 31, 2022 8:00pm Blood Pressure Diastolic 47 60-90 July 31, 2022 8:00pm
--- OUTSIDE RECORDS SUMMARY | 2022-09-27 11:29 | XMS_ITS | Continuity of Care Document ---
:1955 Author Organization [employer] Address [address] 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
--- OUTSIDE RECORDS SUMMARY | 2022-09-27 11:30 | XMS_ITS | Continuity of Care Document ---
:1955 Author Organization [employer] Address [address] [place] [address] Care Team Providers Name Role Phone Azam [...] MG Oral Daily July 30, 2022 Active Ywhbnmjjdxi-Hrcgfycnk-Ax 1 INH Inhalation (Do not Daily July [...] Health Care Surrogate Name and Raul Bond [phone] July 30, 2022 12:00pm Number Healthcare Surrogate [...] Discharge/Departure Atte nding Date Date Provider Admitted [place] [facility] Cheryle Encounter Diagnosis Onset Date Acute exacerbation of CHF (congestive heart failure) Acute exacerbation of chronic obstructive pulmonary di sease (COPD) Acute hypoxemic respiratory failure Shortness of breath Supratherapeutic INR Functional Status Query Response Date Recorded Comment Comprehension Ability No Impairment July 31, 2022 4:00pm Level of Consciousness Alert July 31, 2022 4:00pm Patient Orientation Person July 31, 2022 4:[address]pm [address] Date/Time Situation Query Response Date Recorded Comment Bathing Ability Independent July 31, 2022 6:00pm Eating (Feeding) Ability Independent July 31, 2022 6:00pm Level of [place] Independent July 31, 2022 6:00pm Toileting Ability Independent July 30, 2022 12:40pm [...]
--- OUTSIDE RECORDS SUMMARY | 2022-09-27 11:30 | XMS_ITS | Continuity of Care Document ---
:1955 Author Organization [employer] Address [address] [place] [address] Care Team Providers Name Role Phone Azam Maoing Physician Daniela Chopra Primary Care Physician [phone] Daniela Chopra Primary Care Physician Cheryle Miller [...] MG Oral Daily July 30, 2022 Active Agzrplcjcvd-Bgyubbkse-Sb 1 INH Inhalation (Do not Daily July [...] Range Result Comment White Blood Count August 01, 11.6 th/mm3 High 4.0-11.0 2021 7:52am Red Blood Count August 01, 2.81 mil/mm3 Low 4.00-5.30 2021 7:52am Hemoglobin August 01, 7.8 gm/dL Low 11.6-15.3 2021 7:52am Hematocrit August 01, 25.0 % Low 35.0-46.0 2021 7:52am Mean Corpuscular August 01, 89.0 fL 80.0-100.0 Volume 2021 7:52am Mean Corpuscular August 01, 27.8 pg 27.0-34.0 Hemoglobin 2021 7:52am Mean Corpuscular August 01, 31.2 g/dL 30.5-35.1 Hemoglobin Concent 2021 7:52am Red Cell August 01, 15.4 % 11.6-17.2 Distribution Width 2021 7:52am Platelet Count August 01, 237 th/mm3 [phone] 7:52am Mean Platelet Volume August 01, 12.3 fL High 7.0-12.0 2021 7:52am Differential Comment August 01, . 2021 7:52am Neutrophils (%) August 01, 86.5 % High 16.0-70.0 (Auto) 2021 7:52am Immature Granulocyte August 01, 0.4 % 0-6 % (Auto) 2021 7:52am Lymphocytes (%) August 01, 7.7 % Low 9.0-44.0 (Auto) 2021 7:52am Monocytes (%) (Auto) August 01, 4.8 % 0.0-8.0 2021 7:52am Eosinophils (%) August 01, 0.3 % 0.0-4.0 (Auto) 2021 7:52am Basophils (%) (Auto) August 01, 0.3 % 0.0-2.0 2021 7:52am Neutrophils # (Auto) August 01, 10.0 th/mm3 High 1.8-7.7 2021 7:52am Immature Granulocyte August 01, 0.1 th/mm3 # (Auto) 2021 7:52am Lymphocytes # (Auto) August 01, 0.9 th/mm3 Low 1.0-4.8 2021 7:52am Monocytes # (Auto) August 01, 0.6 th/mm3 0.0-0.9 2021 7:52am Eosinophils # (Auto) August 01, 0.0 th/mm3 0.0-0.4 2021 7:52am Basophils # (Auto) August 01, 0.0 th/mm3 0.0-0.2 2021 7:52am Prothrombin Time August 01, 27.7 sec High 9.8-11.6 Delta: 3 9.8 on 2021 7:52am 07/31/22-733 Prothromb Time August 01, 2.7 Ratio INR INDIC ATION International Ratio 2021 7:52am 2.0 - 3.0 --- --Prophylaxis of Venous [...] 10:20am Urine Specific August 01, 1.010 1.002-1.035 [place] 2021 10:20am Urine Protein August 01, Negative [...] ind Comments 2021 10:20am Sodium Level August 01, 140 meq/L 574-655 2456 7:52am Potassium Level August 01, 5.1 meq/L 3.5-5.1 Delta: 4. 3 on 07/31/22-34 2021 7:52am Slight hemoly sis noted Chloride Level August 01, 109 meq/L High 98-107 2021 7:52am Carbon Dioxide Level August 01, 26.8 meq/L 21.0-32.0 2021 7:52am Anion Gap August 01, 4 meq/L Low 5-15 2021 7:52am Blood Urea Nitrogen August 01, 31 mg/dL High -2021 7:52am Creatinine August 01, 0.89 mg/dL 0.50-1.00 2021 7:52am Estimat Glomerular August 01, 72 mL/min Low >89 Filtration Rate 2021 7:52am Random Glucose August 01, 80 mg/dL 74-106 Note: Sulf asalazine and Sulfapyridine february 2022 7:52am spuriously af fect result. Calcium Level August 01, 8.6 mg/dL 8.5-10.1 2021 7:52am Total Bilirubin July 30, 1.0 mg/dL 0.2-1.0 2021 7:50am Aspartate Amino July 30, 22 U/L - Note: Sul fasalazine and Sulfapyridine may Transf (AST/SGOT) 2021 7:50am spurio usly affect result. Alanine July 30, 11 U/L Note: Sulfasal azine and Sulfapyridine may Aminotransferase 2021 7:50am spuriou sly affect result. 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 hypoxemic respiratory failure Shortness of [...] Discharge/Departure Atte nding Date Date Provider Admitted [place] [facility] 5 July 30, 2022 [facility] 9:25am Cheryle Encounter Diagnosis Onset Date Acute exacerbation of CHF (congestive heart failure) Acute exacerbation of chronic obstructive pulmonary di sease (COPD) Acute hypoxemic respiratory failure Shortness of breath Supratherapeutic INR Functional Status Query Response Date Recorded Comment Comprehension Ability No Impairment August 01, 2022 4:00pm Level of Consciousness Alert August 01, 2022 4:00pm Patient Orientation Person August 01, 2022 4:00pm Place Date/Time Situation Query Response Date Recorded Comment Bathing Ability Independent August 01, 2022 4:00pm Eating (Feeding) Ability Independent August 01, 2022 12:00pm Level of [place] Independent August 01, 2022 4:00pm Toileting Ability Independent July 30, 2022 12:40pm [...] 6:00am Temperature 98.2 F 97.6 F-99.6 F August 01, 2022 4:00pm Pulse 77 BPM 60-90 August 01, 2022 4:00pm Respiration 20 RPM 12-August 01, 2022 4:00pm Pulse Oximetry 93 % 95-100 August 01, 2022 4:00pm Blood Pressure Systolic 103 100-140 August 01, 2022 4:00pm Blood Pressure Diastolic 51 60-90 August 01, 2022 4:00pm
--- NOTE | 2022-09-27 11:37 | ECG_ITS ---
Test Reason : SOB Blood Pressure : / mmHG Vent. Rate : 071 BPM Atrial Rate : 071 BPM P-R Int : 110 ms QRS Dur : 102 ms QT Int : 410 ms P-R-T Axes : 085 046 236 degrees QTc Int : 445 ms Sinus rhythm with short OK Moderate voltage criteria for LVH, may be normal variant ( Sokolow-Chavarria , [place] product ) T wave abnormality, consider inferior ischemia T wave abnormality, consider anterolateral ischemia Abnormal ECG When compared with ECG of 27-AUG-2022 07:26, Inverted T waves have replaced nonspecific T wave abnormality in Lateral leads Referred By: Stoney Turner Electronically Signed By:López Lion
[2022-09-27 12:14] LABS: MANUAL DIFF FLAG NO
[2022-09-27 12:26] LABS: D Dimer High Sensitivity 430 NG/ML
[2022-09-27 12:29] LABS: Basophils Percent Auto 0.3 % (0-2); Eosinophils Absolute Auto 0.1 X10*3/uL (0.0-0.4); Hematocrit 25.9 % (37.0-47.0); Hemoglobin 7.7 g/dl (12.0-16.0); Imm Gran Abs Auto 0.05 X10*3/uL (0.00-0.03); Imm Gran Pct Auto 0.6 % (0.0-0.4); Lymphocytes Absolute Auto 0.5 X10*3/uL (1.2-4.9); Lymphocytes Percent Auto 5.9 % (20-40); Mean Corpuscular HGB Conc 29.7 g/dl (31.0-35.0); Mean Corpuscular Hemoglobin 26.7 pg (27.0-33.0); Mean Corpuscular Volume 89.9 fL (80.0-98.0); Mean Platelet Volume 12.7 fL (9.4-12.3); Monocytes Absolute Auto 0.4 X10*3/uL (0.1-1.2); Monocytes Percent Auto 4.4 % (2-11); Neutrophils Absolute Auto 7.9 x10*3/uL (2.0-8.3); Neutrophils Percent Auto 87.8 % (45-73); Platelet Count 197 X10*3/uL (160-400); Red Blood Count 2.88 X10*6/uL (4.20-5.50); Red Cell Distribution Width 18.2 % (11.0-16.0)
[2022-09-27 12:31] LABS: Lactic Acid 0.9 mmol/L (0.5-2.0)
[2022-09-27 12:36] LABS: COVID-19 Test Negative (Negative); IDNOW Serial# 16C4AD1C
[2022-09-27 12:42] LABS: Troponin-I High Sensitivity 9.2 ng/L (<3.5-17.0)
[2022-09-27 13:16] LABS: Alanine Aminotransferase < 6 U/L (0-31); Albumin Level 3.5 g/dL (3.5-5.0); Alkaline Phosphatase 87 U/L (39-117); Anion Gap 10 (12-20); Aspartate Amino Transferase 31 U/L (5-31); Bilirubin Direct 0.4 mg/dL (0.0-0.5); Bilirubin Total 0.9 mg/dL (0.0-1.0); Blood Urea Nitrogen 14 mg/dL (9-16); Carbon Dioxide 28 mmol/L (22-29); Chloride 103 mmol/L (96-108); Creatinine Clr Calc Pharmacy 69.4; Estimated Glomerular Filt Rate > 60; Glucose Random 90 mg/dL (60-115); Potassium 3.6 mmol/L (3.3-5.1); Sodium 137 mmol/L (135-145); Total Protein 7.7 g/dL (6.5-8.0)
[2022-09-27 13:29] LABS: Appearance Urine Clear; Color Urine Orange; Glucose Urine UA Negative (Negative); Leukocyte Esterase Urine Trace (Negative); Nitrite Urine Negative (Negative); PH 5.5 (5.0-9.0); Specific Gravity - Urine 1.025 (1.005-1.025); UMIC TRIGGER UACC YES; Urine Blood Negative (Negative); Urine Ketones Trace mg/dL (Negative); Urine Protein 30 (1+) mg/dL (Neg-Trace)
[2022-09-27 13:31] LABS: Bacteria Urine None Seen (None Seen); RBC Urine 0-2 /HPF (0-2); WBC Urine 0-5 /HPF (0-5)
[2022-09-27 14:32] VITALS: BP 116/51; PULSE 74; RESP 23; TEMP 36.8; O2SAT 89
[2022-09-27] MEDS: Albuterol/Iprat 2.5/0.5MG 3 ML AMPUL.NEB INHALE (14:51)
[2022-09-27 14:52] VITALS: PULSE 74; RESP 20; O2SAT 95
[2022-09-27 15:41] VITALS: BP 99/43; PULSE 74; RESP 16; TEMP 37.1; O2SAT 92
[2022-09-27 16:14] LABS: B Type Natriuretic Peptide 119 pg/mL (<100)
--- NOTE | 2022-09-27 16:14 | P.HPHOSP_ITS ---
History of Present Illness Date of Service: 09/27/22 Chief Complaint: Shortness of breath This is a 66-year-old female with pertinent history of diastolic heart failure, mitral and aortic wall replacement (aortic valve replaced on 09/10/2022), chronic hypoxemic respiratory failure on 3 L supplemental oxygen, history of amiodarone pulmonary and renal toxicity, hypothyroidism, mood disorder, COPD, chronic normocytic anemia who was sent to the emergency department by Dr. Alex for evaluation of dyspnea and hypoxemia. Patient states she had aortic valve repair about 2 weeks ago and was discharged from [facility] on 09/13. She was asked not to take her Lasix for a brief period after being discharged from [facility] due to amiodarone renal toxicity. Patient states he has ongoing dyspnea that started about 3-5 days ago. It has been progressive and worse with exertion. Patient chronically uses 3 L supplemental oxygen at baseline. Patient's saw Dr. Alex today for a B12 injection and was found to be hypoxemic with ambulation with O2 sats in the 70s and was sent to the ER for further evaluation. Patient endorses orthopnea and PND. No leg swelling. States she called her real estate office manager's office on the day of presentation who asked her to resume Lasix. Patient denies chest discomfort, palpitations, fever, chills, productive cough, wheezing. Of note, patient was admitted about a month ago for amiodarone pulmonary toxicity. Amiodarone was discontinued and patient was put on a steroid taper that she has completed. In the emergency department, pulmonary venous congestion noted on chest x-ray. Patient requiring 4 L supplemental oxygen to maintain sats close to 88%. Review of Systems Constitutional: Constitutional: Reports no additional constitutional complaints Cardiovascular: Cardiovascular: Reports dyspnea on exertion and Reports o rthopnea Respiratory: Respiratory: Reports dyspnea on exertion Gastrointestinal: Gastrointestinal: Reports no additional gastrointestinal complaints Genitourinary: Genitourinary: Reports no additional female genitourinary complaints [facility] Medical History (HFpEF) heart failure with preserved ejection fraction Abnormal EKG Anemia Aortic stenosis Atrial flutter CHF (congestive heart failure) COPD (chronic obstructive pulmonary disease) Current use of anticoagulant therapy Exercise hypoxemia Hypoxia Interstitial lung disease Obesity Paroxysmal atrial fibrillation Persistent atrial fibrillation Family History Father No problems noted. Mother CVD (cardiovascular disease) Surgical History History of sleeve gastrectomy (~2017) Hx of section Hx of mitral valve replacement (~2004) Hx of transesophageal echocardiography (SHELIA) for monitoring (~2015) S/P MVR (mitral valve replacement) Social History Household Members: Family Housing: House Do you presently have visiting nurse or other home services: No Alcohol intake: never Patient Tobacco Use Status: Former Tobacco user Tobacco use type: Cigarette Smoked in Last 30 Days: No Use of substances other than those prescribed or required for medical reasons: No Advance Directives: Yes Advance Directives on File: No Advance Directives Date on File: 08/28/22 service: No Current occupational status: disabled Meds Allergies Allergy/AdvReac Type Severity Reaction Status Date / Time PAPER TAPE Allergy Mild REDNESS, Uncoded 09/27/22 10:24 RASH amioderone AdvReac Severe Swelling Uncoded 09/27/22 10:24 Active Medications: Current Medications Acetaminophen (Acetaminophen 325 Mg Tablet) 650 mg PO Q6H PRN PRN Reason: Pain, Mild (Pain Scale 1-3) Melatonin (Melatonin 3 Mg Tablet) 6 mg PO BEDTIME PRN PRN Reason: Insomnia Ondansetron HCl (Ondansetron Hcl 4 Mg/2 Ml Vial) 4 mg IVPUSH Q8H PRN PRN Reason: Nausea and Vomiting Pharmacy Consult (Consult Rx Perform Med Rec) 1 each MISCELLANE ONCE PRN PRN Reason: Consult order Sodium Chloride (0.9 % Sodium Chloride Flush 3 Ml Syringe) 3 ml IVFLUSH [facility] Home Medications Medication Instructions Recorded Confirmed Last Taken Type furosemide 20 mg tablet (Lasix) 40 mg PO DAILY@1700 09/01/20 09/27/22 07/20/22 History levothyroxine 25 mcg tablet 25 mcg PO DAILY 09/01/20 09/27/22 07/21/22 History atorvastatin 20 mg tablet 20 mg PO DAILY 04/26/21 09/27/22 07/21/22 History ferrous sulfate 325 mg (65 mg 325 mg PO DAILY 04/26/21 09/27/22 07/21/22 History iron) tablet sertraline 100 mg tablet 200 mg PO DAILY 04/26/21 09/27/22 07/21/22 History fluticasone fur. 200 mcg-umeclid 1 inh inhalation Q24H 07/21/22 09/27/22 07/21/22 History 62.5 mcg-vilant 25 mcg inhalat.powder (Trelegy Ellipta) warfarin 2.5 mg tablet See Protocol PO DAILY 07/21/22 09/27/22 07/20/22 History warfarin 2.5 mg tablet 5 mg PO DAILY 08/26/22 09/27/22 Unknown History albuterol sulfate 90 mcg/actuation 1 puff inhalation Q4H 09/24/22 09/27/22 Unknown History aerosol inhaler (Ventolin HFA) diltiazem HCl 120 mg capsule,24 120 mg PO DAILY 09/24/22 09/27/22 Unknown History hr,extended release tiotropium bromide 2.5 inhalation 09/24/22 09/27/22 Unknown History mcg/actuation mist for inhalation (Spiriva Respimat) lisinopril 5 mg tablet 1 tab PO DAILY 09/27/22 Unknown History Physical Exam Vital Signs and Narrative: Vital Signs: Last Vital Signs Temp 98.8 F 09/27/22 15:41 Pulse 74 09/27/22 15:41 Resp 16 09/27/22 15:41 BP 99/43 L 09/27/22 15:41 Pulse Ox 92 09/27/22 15:41 O2 Del Method 09/27/22 14:32 O2 Flow Rate 4 09/27/22 15:41 Oxygen Flow Rate 4 09/27/22 11:11 BMI result Body Mass Index 27.4 Middle-aged female lying in bed in mild distress Regular rate and rhythm, S1-S2 heard Bilateral crackles appreciated, no wheezing Abdomen soft nontender, no guarding, no rigidity Patient is awake, alert and oriented to self, place, time and person ; no focal motor deficit Psych: Normal mood No pedal edema Results Labs CBC and Chem 7: 09/27/22 12:09 09/27/22 12:47 Labs: Laboratory Results - last 24 hr 09/27/22 09/27/22 09/27/22 12:09 12:09 12:09 MCV 89.9 MCH 26.7 L MCHC 29.7 L RDW 18.2 H Plt Count 197 MPV 12.7 H Immature Gran % (Auto) 0.6 H Neut % (Auto) 87.8 H Lymph % (Auto) 5.9 L [place] % (Auto) 4.4 Eos % (Auto) 1.0 Baso % (Auto) 0.3 Lymph # (Auto) 0.5 L [place] # (Auto) 0.4 Eos # (Auto) 0.1 Baso # (Auto) 0.0 Abs Immat Gran (auto) 0.05 H Absolute Neuts (auto) 7.9 Absolute Nucleated RBC 0.000 Nucleated RBC % (auto) 0.0 D-Dimer High Sensitivty 430 Anion Gap Estim Creat Clear Calc Estimated GFR Random Glucose Lactic Acid 0.9 Calcium Total Bilirubin Direct Bilirubin AST ALT Alkaline Phosphatase Troponin I High Sens B-Natriuretic Peptide Total Protein Albumin Urine Color Urine Appearance Urine pH Ur Specific [place] Urine Protein Urine Glucose (UA) Urine Ketones Urine Blood Urine Nitrite Ur Leukocyte Esterase Urine RBC Urine WBC Ur Squamous Epith Cells Urine Bacteria Hyaline Casts COVID-19 (ROS) COVID-19 [facility] 09/27/22 09/27/22 09/27/22 12:09 12:09 12:47 MCV MCH MCHC RDW Plt Count MPV Immature Gran % (Auto) Neut % (Auto) Lymph % (Auto) [place] % (Auto) Eos % (Auto) Baso % (Auto) Lymph # (Auto) [place] # (Auto) Eos # (Auto) Baso # (Auto) Abs Immat Gran (auto) Absolute Neuts (auto) Absolute Nucleated RBC Nucleated RBC % (auto) D-Dimer High Sensitivty Anion Gap 10 L Estim Creat Clear Calc 69.4 Estimated GFR > 60 Random Glucose 90 Lactic Acid Calcium 9.0 Total Bilirubin 0.9 Direct Bilirubin 0.4 AST 31 ALT < 6 Alkaline Phosphatase 87 Troponin I High Sens 9.2 B-Natriuretic Peptide Total Protein 7.7 Albumin 3.5 Urine Color Urine Appearance Urine pH Ur Specific [place] Urine Protein Urine Glucose (UA) Urine Ketones Urine Blood Urine Nitrite Ur Leukocyte Esterase Urine RBC Urine WBC Ur Squamous Epith Cells Urine Bacteria Hyaline Casts COVID-19 (ROS) Negative COVID-19 Clin Com See Note 09/27/22 09/27/22 13:16 15:48 MCV MCH MCHC RDW Plt Count MPV Immature Gran % (Auto) Neut % (Auto) Lymph % (Auto) [place] % (Auto) Eos % (Auto) Baso % (Auto) Lymph # (Auto) [place] # (Auto) Eos # (Auto) Baso # (Auto) Abs Immat Gran (auto) Absolute Neuts (auto) Absolute Nucleated RBC Nucleated RBC % (auto) D-Dimer High Sensitivty Anion Gap Estim Creat Clear Calc Estimated GFR Random Glucose Lactic Acid Calcium Total Bilirubin Direct Bilirubin AST ALT Alkaline Phosphatase Troponin I High Sens B-Natriuretic Peptide 119 H Total Protein Albumin Urine Color [place] A Urine Appearance Clear Urine pH 5.5 Ur Specific [place] 1.025 Urine Protein 30 (1+) H Urine Glucose (UA) Negative Urine Ketones Trace Urine Blood Negative Urine Nitrite Negative Ur Leukocyte Esterase Trace H Urine RBC 0-2 Urine WBC 0-5 Ur Squamous Epith Cells 3-5 Urine Bacteria None Seen Hyaline Casts 3-5 COVID-19 (RSO) COVID-19 Clin Com Imaging Radiologist's Impressions: Impressions Chest X-Ray 09/27/22 12:25 IMPRESSION: Mild pulmonary vascular congestion and edema with similar appearance. Assessment and Plan (1) Acute on chronic respiratory failure with hypoxia: Status: Acute (2) Acute diastolic CHF (congestive heart failure): Status: Acute (3) Hypothyroidism: Status: Acute (4) Mood disorder: Status: Acute Plan This is a 66-year-old female with pertinent history of diastolic heart failure, mitral and aortic wall replacement (aortic valve replaced on 09/10/2022), chronic hypoxemic respiratory failure on 3 L supplemental oxygen, history of amiodarone pulmonary and renal toxicity, hypothyroidism, mood disorder, COPD, chronic normocytic anemia who was sent to the emergency department by Dr. Alex for evaluation of dyspnea and hypoxemia. #. Acute on chronic hypoxemic respiratory failure due to: #. Acute decompensation of congestive heart failure with preserved ejection fraction -will admit patient and initiate IV Lasix. Strict I's and O's and monitor weights daily. Low-sodium diet. Transition to p.o. Lasix once euvolemia is achieved. -currently on 4 L supplemental oxygen, baseline 3 L at home. Monitor and wean as tolerated, maintain oxygen saturation greater than 88%. #. Hypothyroidism -on Synthroid #. Essential hypertension -hold p.o. medications and restart as appropriate. #. Status post aortic and mitral valve repair -on Coumadin #. COPD -continue home inhalers. No exacerbation at the time of admission #. Mood disorder -on sertraline #. Chronic normocytic anemia -is on iron supplementation and B12 shots. Currently hemoglobin above transfusion threshold. Med rec pending DVT prophylaxis: On Coumadin Full code Low-sodium diet Admit as inpatient and will require two night minimum hospital stay for IV Lasix and close monitoring of hemodynamics Quality Stroke Does the patient have a stroke diagnosis?: No VTE Prior VTE?: No VTE Risk Level:: Medical - moderate - high VTE Device Contraindication: Treatment Not Indicated VTE Drug Contraindication: N/A - Med Ordered
[2022-09-27] MEDS: methylPREDNISolone Sod Succ 125 MG/2 ML VIAL IV (16:28)
[2022-09-27] MEDS: Nitroglycerin 2 % Oint 1 GM Packet 0.5 INCH TRANSDERMA (16:28)
[2022-09-27] MEDS: Furosemide 40 MG/4 ML VIAL IVPUSH (16:28)
--- NOTE | 2022-09-27 16:38 | PHA.MEDREC ---
Pharmacy Consult ? Medication Reconciliation Pharmacy has completed the medication reconciliation. Patient confirmed all medications. Reports warfarin dosing is all over the place. Went to anticoag clinic today, where INR was 3.5. Plan from coag clinic Dose: 2.5MG / 5MG /2.5MG /5MG AND RECHECK SATURDAY. Pharmacy will follow INR daily while inpatient. Torrie Gayle, PharmD
[2022-09-27 17:02] VITALS: BP 115/53; PULSE 78; RESP 20; TEMP 36.7; O2SAT 92
[2022-09-27 19:18] VITALS: BP 129/58; PULSE 72; RESP 16; TEMP 36.1; O2SAT 92
[2022-09-28] VITALS: BP 118/55; PULSE 72; RESP 16; TEMP 36.1; O2SAT 94
[2022-09-28] MEDS: Warfarin Sodium 2.5 MG TABLET PO (00:07)
[2022-09-28] MEDS: 0.9 % Sodium Chloride Flush 3 ML SYRINGE IVFLUSH ×4 (00:09→23:32)
[2022-09-28 03:12] VITALS: PULSE 68; RESP 18; TEMP 36.4; O2SAT 91
[2022-09-28] MEDS: Levothyroxine Sodium 25 MCG TABLET PO (05:26)
[2022-09-28 06:23] LABS: Basophils Percent Auto 0.2 % (0-2); Hemoglobin 7.8 g/dl (12.0-16.0); Imm Gran Abs Auto 0.04 X10*3/uL (0.00-0.03); Imm Gran Pct Auto 0.7 % (0.0-0.4); MANUAL DIFF FLAG SCAN; SCAN SMEAR FLAG 1
[2022-09-28 06:25] LABS: Hematocrit 25.8 % (37.0-47.0); Lymphocytes Absolute Auto 0.4 X10*3/uL (1.2-4.9); Lymphocytes Percent Auto 6.4 % (20-40); Mean Corpuscular HGB Conc 30.2 g/dl (31.0-35.0); Mean Corpuscular Hemoglobin 27.2 pg (27.0-33.0); Mean Corpuscular Volume 89.9 fL (80.0-98.0); Mean Platelet Volume 11.5 fL (9.4-12.3); Monocytes Absolute Auto 0.1 X10*3/uL (0.1-1.2); Monocytes Percent Auto 2.3 % (2-11); Neutrophils Absolute Auto 5.1 x10*3/uL (2.0-8.3); Neutrophils Percent Auto 90.4 % (45-73); Platelet Count 207 X10*3/uL (160-400); Red Blood Count 2.87 X10*6/uL (4.20-5.50); Red Cell Distribution Width 18.2 % (11.0-16.0); White Blood Count 5.7 X10*3/uL (4.8-10.8)
[2022-09-28 06:26] LABS: PLT ABN DIST 1
[2022-09-28 06:32] LABS: INTERNATIONAL NORM RATIO 2.8 (0.9-1.1); Prothrombin Time 33.1 SEC (10.0-13.1)
[2022-09-28 06:39] LABS: Anion Gap 10 (12-20); Blood Urea Nitrogen 15 mg/dL (9-16); Carbon Dioxide 27 mmol/L (22-29); Chloride 103 mmol/L (96-108); Creatinine Clr Calc Pharmacy 73.4; Estimated Glomerular Filt Rate > 60; Glucose Random 138 mg/dL (60-115); Potassium 4.2 mmol/L (3.3-5.1); Sodium 136 mmol/L (135-145)
[2022-09-28 06:48] LABS: SLIDE REVIEW VERIFIED
[2022-09-28 07:26] VITALS: BP 118/56; PULSE 67; RESP 20; TEMP 36.6; O2SAT 95
[2022-09-28 08:57] LABS: INTERNATIONAL NORM RATIO 2.8 (0.9-1.1); Prothrombin Time 33.5 SEC (10.0-13.1)
[2022-09-28] MEDS: Furosemide 40 MG/4 ML VIAL IVPUSH (10:01)
[2022-09-28] MEDS: Atorvastatin Calcium 20 MG TABLET PO (10:01)
[2022-09-28] MEDS: Sertraline HCL 100 MG TABLET 200 MG PO (10:01)
--- NOTE | 2022-09-28 10:02 | MHC.CM.PN ---
met with pt who lives with dgter ,she had no servcies is covid vax x 5 has a ride home is requesting a vna when dcd for inrs and physical therapy
--- NOTE | 2022-09-28 11:04 | HO.PM.IMPN ---
Subjective Subjective Date of Service: 09/28/22 Interval History: seen and examined this AM still KRAUS with minimal exertion unable to lay in supine position still on 5L of o2 reports orthopenea Review of Systems negative except HPI Physical Exam Vital Signs: Vital Signs: Last Vital Signs Temp 97.8 F 09/28/22 07:26 Pulse 67 09/28/22 07:26 Resp 20 09/28/22 07:26 BP 118/56 L 09/28/22 07:26 Pulse Ox 95 09/28/22 07:26 O2 Del Method 09/28/22 07:26 O2 Flow Rate 5 09/28/22 07:26 Oxygen Flow Rate 4 09/27/22 11:11 BMI result Body Mass Index 27.4 Const: Other: General - no acute distress, appears comfortable Cardiovascular - regular rate and rhythm, S1-S2 Lungs - rales bilaterally Abdomen - soft, nontender, no rebound or guarding Extremities - no edema bilaterally Neuro - awake and alert, no focal deficits Objective Data Active Medications Acetaminophen (Acetaminophen 325 Mg Tablet) 650 mg PO Q6H PRN PRN Reason: Pain, Mild (Pain Scale 1-3) Albuterol Sulfate (Albuterol Sulfate 90 Mcg 8 Gm Inhaler) 1 puff INHALE Q4H PRN PRN Reason: Wheezing Atorvastatin Calcium (Atorvastatin Calcium 20 Mg Tablet) 20 mg PO DAILY [facility] Last Admin: 09/28/22 10:01 Dose: 20 mg Documented By: FABIAN Furosemide (Furosemide 40 Mg/4 Ml Vial) 40 mg IVPUSH DAILY [facility]; Protocol Last Admin: 09/28/22 10:01 Dose: 40 mg Documented By: FABIAN Levothyroxine Sodium (Levothyroxine Sodium 25 Mcg Tablet) 25 mcg PO DAILY@0600 [facility] Last Admin: 09/28/22 05:26 Dose: 25 mcg Documented By: YOSEF Melatonin (Melatonin 3 Mg Tablet) 6 mg PO BEDTIME PRN PRN Reason: Insomnia Non-Formulary Medication ([id number] [Trelegy Ellipta]) 1 inhalation INHALE Q24H [facility] Ondansetron HCl (Ondansetron Hcl 4 Mg/2 Ml Vial) 4 mg IVPUSH Q8H PRN PRN Reason: Nausea and Vomiting Pharmacy Consult (Consult Rx Perform Med Rec) 1 each MISCELLANE ONCE PRN PRN Reason: Consult order Sertraline HCl (Sertraline Hcl 100 Mg Tablet) 200 mg PO DAILY [facility] Last Admin: 09/28/22 10:01 Dose: 200 mg Documented By: FABIAN Sodium Chloride (0.9 % Sodium Chloride Flush 3 Ml Syringe) 3 ml IVFLUSH QSHIFT [facility] Last Admin: 09/28/22 10:01 Dose: 3 ml Documented By: FABIAN Warfarin Sodium (Warfarin Sodium 2.5 Mg Tablet) 5 mg PO SuTuFr@1800 [facility] Warfarin Sodium (Warfarin Sodium 2.5 Mg Tablet) 2.5 mg PO MoWeThSa@1800 [facility] Last Admin: 09/28/22 00:07 Dose: 2.5 mg Documented By: YOSEF Comments: just came on shift previous nurse was not able to give med unavailable on floor Labs CBC & Chem 7: 09/28/22 05:34 09/28/22 05:34 Labs: Laboratory Results - last 24 hr 09/27/22 09/27/22 09/27/22 12:09 12:09 12:09 MCV 89.9 MCH 26.7 L MCHC 29.7 L RDW 18.2 H Plt Count 197 MPV 12.7 H Immature Gran % (Auto) 0.6 H Neut % (Auto) 87.8 H Lymph % (Auto) 5.9 L [place] % (Auto) 4.4 Eos % (Auto) 1.0 Baso % (Auto) 0.3 Lymph # (Auto) 0.5 L [place] # (Auto) 0.4 Eos # (Auto) 0.1 Baso # (Auto) 0.0 Abs Immat Gran (auto) 0.05 H Absolute Neuts (auto) 7.9 Absolute Nucleated RBC 0.000 Nucleated RBC % (auto) 0.0 Smear Tech's Comments PT INR D-Dimer High Sensitivty 430 Anion Gap Estim Creat Clear Calc Estimated GFR Random Glucose Lactic Acid 0.9 Calcium Total Bilirubin Direct Bilirubin AST ALT Alkaline Phosphatase Troponin I High Sens B-Natriuretic Peptide Total Protein Albumin Urine Color Urine Appearance Urine pH Ur Specific [place] Urine Protein Urine Glucose (UA) Urine Ketones Urine Blood Urine Nitrite Ur Leukocyte Esterase Urine RBC Urine WBC Ur Squamous Epith Cells Urine Bacteria Hyaline Casts COVID-19 (ROS) COVID-19 Clin Com 09/27/22 09/27/22 09/27/22 12:09 12:09 12:47 MCV MCH MCHC RDW Plt Count MPV Immature Gran % (Auto) Neut % (Auto) Lymph % (Auto) [place] % (Auto) Eos % (Auto) Baso % (Auto) Lymph # (Auto) [place] # (Auto) Eos # (Auto) Baso # (Auto) Abs Immat Gran (auto) Absolute Neuts (auto) Absolute Nucleated RBC Nucleated RBC % (auto) Smear Tech's Comments PT INR D-Dimer High Sensitivty Anion Gap 10 L Estim Creat Clear Calc 69.4 Estimated GFR > 60 Random Glucose 90 Lactic Acid Calcium 9.0 Total Bilirubin 0.9 Direct Bilirubin 0.4 AST 31 ALT < 6 Alkaline Phosphatase 87 Troponin I High Sens 9.2 B-Natriuretic Peptide Total Protein 7.7 Albumin 3.5 Urine Color Urine Appearance Urine pH Ur Specific [place] Urine Protein Urine Glucose (UA) Urine Ketones Urine Blood Urine Nitrite Ur Leukocyte Esterase Urine RBC Urine WBC Ur Squamous Epith Cells Urine Bacteria Hyaline Casts COVID-19 (ROS) Negative COVID-19 [email or web address] See Note 09/27/22 09/27/22 09/28/22 13:16 15:48 05:34 MCV MCH MCHC RDW Plt Count MPV Immature Gran % (Auto) Neut % (Auto) Lymph % (Auto) [place] % (Auto) Eos % (Auto) Baso % (Auto) Lymph # (Auto) [place] # (Auto) Eos # (Auto) Baso # (Auto) Abs Immat Gran (auto) Absolute Neuts (auto) Absolute Nucleated RBC Nucleated RBC % (auto) Smear Tech's Comments PT 33.1 H INR 2.8 H D D-Dimer High Sensitivty Anion Gap Estim Creat Clear Calc Estimated GFR Random Glucose Lactic Acid Calcium Total Bilirubin Direct Bilirubin AST ALT Alkaline Phosphatase Troponin I High Sens B-Natriuretic Peptide 119 H Total Protein Albumin Urine Color [place] A Urine Appearance Clear Urine pH 5.5 Ur Specific [place] 1.025 Urine Protein 30 (1+) H Urine Glucose (UA) Negative Urine Ketones Trace Urine Blood Negative Urine Nitrite Negative Ur Leukocyte Esterase Trace H Urine RBC 0-2 Urine WBC 0-5 Ur Squamous Epith Cells 3-5 Urine Bacteria None Seen Hyaline Casts 3-5 COVID-19 (ROS) COVID-19 [email or web address] 09/28/22 09/28/22 09/28/22 05:34 05:34 08:10 MCV 89.9 MCH 27.2 MCHC 30.2 L RDW 18.2 H Plt Count 207 MPV 11.5 Immature Gran % (Auto) 0.7 H Neut % (Auto) 90.4 H Lymph % (Auto) 6.4 L [place] % (Auto) 2.3 Eos % (Auto) 0.0 Baso % (Auto) 0.2 Lymph # (Auto) 0.4 L [place] # (Auto) 0.1 Eos # (Auto) 0.0 Baso # (Auto) 0.0 Abs Immat Gran (auto) 0.04 H Absolute Neuts (auto) 5.1 Absolute Nucleated RBC 0.000 Nucleated RBC % (auto) 0.0 Smear Tech's Comments VERIFIED PT 33.5 H INR 2.8 H D-Dimer High Sensitivty Anion Gap 10 L Estim Creat Clear Calc 73.4 Estimated GFR > 60 Random Glucose 138 H Lactic Acid Calcium 9.0 Total Bilirubin Direct Bilirubin AST ALT Alkaline Phosphatase Troponin I High Sens B-Natriuretic Peptide Total Protein Albumin Urine Color Urine Appearance Urine pH Ur Specific [place] Urine Protein Urine Glucose (UA) Urine Ketones Urine Blood Urine Nitrite Ur Leukocyte Esterase Urine RBC Urine WBC Ur Squamous Epith Cells Urine Bacteria Hyaline Casts COVID-19 (ROS) COVID-19 Clin Com Assessment and Plan (1) Acute on chronic respiratory failure with hypoxia: Status: Acute (2) Acute diastolic CHF (congestive heart failure): Status: Acute Plan 66 yo F with a PMH of heart failure with reduced ejection fraction, mitral and aortic valve replacement (AVR completed at [facility] in August 2022), chronic hypoxemic respiratory failure on 3 L supplemental oxygen, paroxysmal AFib who presents to the hospital with respiratory symptoms. She is diagnosed with acute exacerbation of HFpEF. 1. Acute on Chronic resp failure with hypoxia due to CHF will treat underlying issues 2. Acute on chronic HFpEF continue IV lasix, monitor renal function will consult cardiology inlight of her recent AVR 3. PAF currently in sinus on cardizem at home, which is on hold -- restart once okay'ed by cardiology continue coumadin 4. AVR/MVR continue coumadin -- 2.5 to 3.5 INR 5. Chronic copd continue baseline inhalers 6. hypothyroid continue synthoird 7. Chronic macrocytic anemia due to b12 def monitor; no indication for transfusion at this time Full Code DVT pptx -- Coumadin Requires continued hospitalization due to on going CHF and respiratory failure which have not improved to baseline. Needs IV diuretics and cardiology evaluation. Quality Stroke Does the patient have a stroke diagnosis?: No VTE Prior VTE?: No VTE Risk Level:: Medical - moderate - high VTE Device Contraindication: Treatment Not Indicated VTE Drug Contraindication: N/A - Med Ordered
[2022-09-28] MEDS: Acetaminophen 325 MG TABLET 650 MG PO ×2 (11:22→18:03)
[2022-09-28 12:00] VITALS: BP 128/59; PULSE 63; RESP 20; TEMP 36.3; O2SAT 96
[2022-09-28 16:00] VITALS: BP 135/67; PULSE 67; RESP 18; TEMP 37; O2SAT 97
--- NOTE | 2022-09-28 16:25 | PM.CNCAR ---
History of Present Illness History of Present Illness Date of Service: 09/28/22 Requesting physician: Renny Butterfield Chief complaint: CHF Narrative: 66-year-old female who has history of mitral valve stenosis with previous mitral valve replacement with mechanical valve on chronic Coumadin therapy with presented with shortness of breath and fatigue and was noticed to have severe aortic valve stenosis. He was transferred with [facility] which she underwent cardiac catheterization and underwent transcatheter aortic valve replacement in August 2022. She is now presenting to us for fatigue and shortness of breath. She said even after the valve replacement she continued to get shortness of breath. It appears she was told not to stake her Lasix for 30 days. She also is anemic. She came to us with congestive heart failure. Started on Lasix and has been feeling better. She is anemic currently and has not been transfused yet. No chest pain. [facility] Past Medical History Medical History (HFpEF) heart failure with preserved ejection fraction Abnormal EKG Anemia Aortic stenosis Atrial flutter CHF (congestive heart failure) COPD (chronic obstructive pulmonary disease) Current use of anticoagulant therapy Exercise hypoxemia Hypoxia Interstitial lung disease Obesity Paroxysmal atrial fibrillation Persistent atrial fibrillation Family History Family History Father No problems noted. Mother CVD (cardiovascular disease) Surgical History Surgical History History of sleeve gastrectomy (~2017) Hx of section Hx of mitral valve replacement (~2004) Hx of transesophageal echocardiography (SHELIA) for monitoring (~2015) S/P MVR (mitral valve replacement) Social History Social History Household Members: Family Housing: House Do you presently have visiting nurse or other home services: No Alcohol intake: never Patient Tobacco Use Status: Former Tobacco user Tobacco use type: Cigarette Smoked in Last 30 Days: No Use of substances other than those prescribed or required for medical reasons: No Currently Displaying Signs/Symptoms of Drug Intoxication Withdrawal: No Have you been hit, kicked, punched, or otherwise hurt by someone within the past year? If so, by whom?: No Do you feel safe in your current relationship?: No Current Relationship Is there a partner from a previous relationship who is making you feel unsafe now?: No Are you made to feel afraid or neglected: No Advance Directives: Yes Advance Directives on File: No Advance Directives Date on File: 08/28/22 Do you have thoughts of harming others: None Do you have a plan to hurt others: No Plan Recently lost weight without trying: No Nutrition Risks: No Nutritional Risk Patient : No : No Poor oral hygiene: No service: No Current occupational status: disabled Meds Allergies Allergy/AdvReac Type Severity Reaction Status Date / Time PAPER TAPE Allergy Mild REDNESS, Uncoded 09/27/22 10:24 RASH amioderone AdvReac Severe Swelling Uncoded 09/27/22 10:24 Active Medications: Current Medications Acetaminophen (Acetaminophen 325 Mg Tablet) 650 mg PO Q6H PRN PRN Reason: Pain, Mild (Pain Scale 1-3) Last Admin: 09/28/22 11:22 Dose: 650 mg Albuterol Sulfate (Albuterol Sulfate 90 Mcg 8 Gm Inhaler) 1 puff INHALE Q4H PRN PRN Reason: Wheezing Atorvastatin Calcium (Atorvastatin Calcium 20 Mg Tablet) 20 mg PO DAILY [facility] Last Admin: 09/28/22 10:01 Dose: 20 mg Furosemide (Furosemide 40 Mg/4 Ml Vial) 40 mg IVPUSH DAILY [facility]; Protocol Last Admin: 09/28/22 10:01 Dose: 40 mg Levothyroxine Sodium (Levothyroxine Sodium 25 Mcg Tablet) 25 mcg PO DAILY@0600 [facility] Last Admin: 09/28/22 05:26 Dose: 25 mcg Melatonin (Melatonin 3 Mg Tablet) 6 mg PO BEDTIME PRN PRN Reason: Insomnia Non-Formulary Medication (Gngmcmlmuph-[place]-Gwgdefcu [Trelegy Ellipta]) 1 inhalation INHALE Q24H [facility] Ondansetron HCl (Ondansetron Hcl 4 Mg/2 Ml Vial) 4 mg IVPUSH Q8H PRN PRN Reason: Nausea and Vomiting Pharmacy Consult (Consult Rx Perform Med Rec) 1 each MISCELLANE ONCE PRN PRN Reason: Consult order Sertraline HCl (Sertraline Hcl 100 Mg Tablet) 200 mg PO DAILY [facility] Last Admin: 09/28/22 10:01 Dose: 200 mg Sodium Chloride (0.9 % Sodium Chloride Flush 3 Ml Syringe) 3 ml IVFLUSH QSHIFT [facility] Last Admin: 09/28/22 16:00 Dose: 3 ml Warfarin Sodium (Warfarin Sodium 2.5 Mg Tablet) 5 mg PO SuTuFr@1800 [facility] Warfarin Sodium (Warfarin Sodium 2.5 Mg Tablet) 2.5 mg PO MoWeThSa@1800 [facility] Last Admin: 09/28/22 00:07 Dose: 2.5 mg Home Medications Medication Instructions Recorded Confirmed Last Taken Type furosemide 20 mg tablet (Lasix) 20 mg PO DAILY 09/01/20 09/27/22 09/27/22 History levothyroxine 25 mcg tablet 25 mcg PO DAILY 09/01/20 09/27/22 09/27/22 History atorvastatin 20 mg tablet 20 mg PO DAILY 04/26/21 09/27/22 09/27/22 History ferrous sulfate 325 mg (65 mg 325 mg PO DAILY 04/26/21 09/27/22 09/27/22 History iron) tablet sertraline 100 mg tablet 200 mg PO DAILY 04/26/21 09/27/22 09/27/22 History fluticasone fur. 200 mcg-umeclid 1 inh inhalation Q24H 07/21/22 09/27/22 09/27/22 History 62.5 mcg-vilant 25 mcg inhalat.powder (Trelegy Ellipta) warfarin 2.5 mg tablet 5 mg PO SUTUFR 07/21/22 09/27/22 07/20/22 History warfarin 2.5 mg tablet 2.5 mg PO MOWETHSA 08/26/22 09/27/22 09/26/22 History albuterol sulfate 90 mcg/actuation 1 puff inhalation Q4H PRN Wheezing 09/24/22 09/27/22 Unknown History aerosol inhaler (Ventolin HFA) diltiazem HCl 120 mg capsule,24 120 mg PO DAILY 09/24/22 09/27/22 09/27/22 History hr,extended release Physical Exam Vital Signs: Vital Signs: Last Vital Signs Temp 98.6 F 09/28/22 16:00 Pulse 67 09/28/22 16:00 Resp 18 09/28/22 16:00 BP 135/67 09/28/22 16:00 Pulse Ox 97 09/28/22 16:00 O2 Del Method 09/28/22 16:00 O2 Flow Rate 4 09/28/22 16:00 Oxygen Flow Rate 4 09/27/22 11:11 BMI result Body Mass Index 27.4 GENERAL APPEARANCE: in no acute distress, pleasant. NECK: no carotid bruit, mild jugular venous distention. SKIN: no suspicious lesions, warm and dry. HEART: Systolic murmur aortic area. Mechanical 1st heart sound. LUNGS: Clear to auscultation. ABDOMEN: soft, nontender. EXTREMITIES: No significant edema currently. PERIPHERAL PULSES: equal. NEUROLOGIC: No gross deficits, AAO X 3 Objective Labs and Meds Result diagrams: 09/28/22 05:34 09/28/22 05:34 Lab results: Laboratory Results - last 24 hr 09/28/22 09/28/22 09/28/22 05:34 05:34 05:34 WBC 5.7 RBC 2.87 L Hgb 7.8 L Hct 25.8 L MCV 89.9 MCH 27.2 MCHC 30.2 L RDW 18.2 H Plt Count 207 MPV 11.5 Immature Gran % (Auto) 0.7 H Neut % (Auto) 90.4 H Lymph % (Auto) 6.4 L [place] % (Auto) 2.3 Eos % (Auto) 0.0 Baso % (Auto) 0.2 Lymph # (Auto) 0.4 L [place] # (Auto) 0.1 Eos # (Auto) 0.0 Baso # (Auto) 0.0 Abs Immat Gran (auto) 0.04 H Absolute Neuts (auto) 5.1 Absolute Nucleated RBC 0.000 Nucleated RBC % (auto) 0.0 Smear Tech's Comments VERIFIED PT 33.1 H INR 2.8 H D Sodium 136 Potassium 4.2 Chloride 103 Carbon Dioxide 27 Anion Gap 10 L BUN 15 Creatinine 0.69 Estim Creat Clear Calc 73.4 Estimated GFR > 60 Random Glucose 138 H Calcium 9.0 09/28/22 08:10 WBC RBC Hgb Hct MCV MCH MCHC RDW Plt Count MPV Immature Gran % (Auto) Neut % (Auto) Lymph % (Auto) [place] % (Auto) Eos % (Auto) Baso % (Auto) Lymph # (Auto) [place] # (Auto) Eos # (Auto) Baso # (Auto) Abs Immat Gran (auto) Absolute Neuts (auto) Absolute Nucleated RBC Nucleated RBC % (auto) Smear Tech's Comments PT 33.5 H INR 2.8 H Sodium Potassium Chloride Carbon Dioxide Anion Gap BUN Creatinine Estim Creat Clear Calc Estimated GFR Random Glucose Calcium Imaging Radiologist's impression: Impressions Chest X-Ray 09/27/22 12:25 IMPRESSION: Mild pulmonary vascular congestion and edema with similar appearance. Assessment and Plan (1) Acute diastolic CHF (congestive heart failure): Status: Acute Plan Pleasant 66 year female who is here for acute diastolic heart failure. She was previously on diuretics but after cardiac catheterization at [facility] and transcatheter aortic valve replacement she was advised to hold her diuretics. This is probably because she has CKD. She has not taking diuretics for close to 2-3 weeks at this point. Overall presentation is from the distal heart failure probably because of not being on diuretics. Also she has anemia which can trigger congestive heart failure 2. In any case she is improving with IV diuretics. Continue them for now because she is still volume overloaded. She can get 1 unit of blood tomorrow with her IV dose of furosemide. We will closely monitor her and transition her to oral diuretics soon. Does not require further echocardiography because her presentation is clearly explain able. Thank you for allowing me to participate in the care of your patient. Please feel free to contact me if you have any questions. Procedures Date of Service Date of Service: 09/28/22
[2022-09-28] MEDS: Warfarin Sodium 2.5 MG TABLET 5 MG PO (18:01)
[2022-09-28 22:40] VITALS: BP 127/68; PULSE 78; RESP 17; TEMP 36.6; O2SAT 92
[2022-09-29] VITALS (8 sets, daily range): BP systolic 92–123; BP diastolic 51–59; PULSE 65–77; RESP 17–20; TEMP 35.6–37.3; O2SAT 91–95
[2022-09-29] MEDS: Acetaminophen 325 MG TABLET 650 MG PO ×3 (03:39→17:43)
[2022-09-29] MEDS: Levothyroxine Sodium 25 MCG TABLET PO (05:32)
[2022-09-29 06:43] LABS: INTERNATIONAL NORM RATIO 3.4 (0.9-1.1); Prothrombin Time 41.5 SEC (10.0-13.1)
[2022-09-29] MEDS: Sertraline HCL 100 MG TABLET 200 MG PO (07:40)
[2022-09-29] MEDS: Atorvastatin Calcium 20 MG TABLET PO (07:40)
[2022-09-29] MEDS: Furosemide 40 MG/4 ML VIAL IVPUSH ×2 (07:41→17:36)
[2022-09-29] MEDS: 0.9 % Sodium Chloride Flush 3 ML SYRINGE IVFLUSH ×3 (07:41→22:55)
[2022-09-29 08:39] LABS: Hematocrit 24.5 % (37.0-47.0); Hemoglobin 7.4 g/dl (12.0-16.0); Mean Corpuscular HGB Conc 30.2 g/dl (31.0-35.0); Mean Corpuscular Hemoglobin 27.1 pg (27.0-33.0); Mean Corpuscular Volume 89.7 fL (80.0-98.0); Platelet Count 248 X10*3/uL (160-400); Red Blood Count 2.73 X10*6/uL (4.20-5.50); Red Cell Distribution Width 18.2 % (11.0-16.0); White Blood Count 7.6 X10*3/uL (4.8-10.8)
[2022-09-29 08:59] LABS: Anion Gap 11 (12-20); Blood Urea Nitrogen 19 mg/dL (9-16); Calcium 8.6 mg/dL (8.4-10.2); Carbon Dioxide 28 mmol/L (22-29); Chloride 102 mmol/L (96-108); Creatinine Clr Calc Pharmacy 72.4; Estimated Glomerular Filt Rate > 60; Glucose Random 83 mg/dL (60-115); Potassium 3.5 mmol/L (3.3-5.1); Sodium 137 mmol/L (135-145)
--- NOTE | 2022-09-29 10:13 | HO.PM.IMPN ---
Subjective Subjective Date of Service: 09/30/22 Interval History: seen and examined this AM still with sob, but slowly improving Review of Systems negative except HPI Physical Exam Vital Signs: Vital Signs: Last Vital Signs Temp 98.2 F 09/29/22 07:34 Pulse 67 09/29/22 07:34 Resp 19 09/29/22 07:34 BP 104/51 L 09/29/22 07:34 Pulse Ox 91 L 09/29/22 07:34 O2 Del Method 09/29/22 07:34 O2 Flow Rate 2.5 09/29/22 07:34 Oxygen Flow Rate 4 09/27/22 11:11 BMI result Body Mass Index 27.4 Const: Other: General - no acute distress, appears comfortable Cardiovascular - regular rate and rhythm, S1-S2 Lungs - rales improved Abdomen - soft, nontender, no rebound or guarding Extremities - no edema bilaterally Neuro - awake and alert, no focal deficits Objective Data Active Medications Acetaminophen (Acetaminophen 325 Mg Tablet) 650 mg PO Q6H PRN PRN Reason: Pain, Mild (Pain Scale 1-3) Last Admin: 09/29/22 03:39 Dose: 650 mg Documented By: ROGERIO Albuterol Sulfate (Albuterol Sulfate 90 Mcg 8 Gm Inhaler) 1 puff INHALE Q4H PRN PRN Reason: Wheezing Atorvastatin Calcium (Atorvastatin Calcium 20 Mg Tablet) 20 mg PO DAILY [facility] Last Admin: 09/29/22 07:40 Dose: 20 mg Documented By: BRADLY Furosemide (Furosemide 40 Mg/4 Ml Vial) 40 mg IVPUSH DAILY [facility]; Protocol Last Admin: 09/29/22 07:41 Dose: 40 mg Documented By: BRADLY Levothyroxine Sodium (Levothyroxine Sodium 25 Mcg Tablet) 25 mcg PO DAILY@0600 [facility] Last Admin: 09/29/22 05:32 Dose: 25 mcg Documented By: ROGEROI Melatonin (Melatonin 3 Mg Tablet) 6 mg PO BEDTIME PRN PRN Reason: Insomnia Non-Formulary Medication (Nmpqazcewmr-Iwrjppnjr-Etxiltjf [Trelegy Ellipta]) 1 inhalation INHALE Q24H [facility] Ondansetron HCl (Ondansetron Hcl 4 Mg/2 Ml Vial) 4 mg IVPUSH Q8H PRN PRN Reason: Nausea and Vomiting Pharmacy Consult (Consult Rx Perform Med Rec) 1 each MISCELLANE ONCE PRN PRN Reason: Consult order Sertraline HCl (Sertraline Hcl 100 Mg Tablet) 200 mg PO DAILY [facility] Last Admin: 09/29/22 07:40 Dose: 200 mg Documented By: BRADLY Sodium Chloride (0.9 % Sodium Chloride Flush 3 Ml Syringe) 3 ml IVFLUSH QSHIFT [facility] Last Admin: 09/29/22 07:41 Dose: 3 ml Documented By: BRADLY Warfarin Sodium (Warfarin Sodium 2.5 Mg Tablet) 5 mg PO SuTuFr@1800 [facility] Last Admin: 09/28/22 18:01 Dose: 5 mg Documented By: FABIAN Warfarin Sodium (Warfarin Sodium 2.5 Mg Tablet) 2.5 mg PO MoWeThSa@1800 [facility] Last Admin: 09/28/22 00:07 Dose: 2.5 mg Documented By: YOSEF Comments: just came on shift previous nurse was not able to give med unavailable on floor Labs CBC & Chem 7: 09/30/22 05:48 09/30/22 05:48 Labs: Laboratory Results - last 24 hr 09/29/22 09/29/22 09/29/22 05:15 05:15 05:15 MCV 89.7 MCH 27.1 MCHC 30.2 L RDW 18.2 H Plt Count 248 MPV 13.0 H Absolute Nucleated RBC 0.000 Nucleated RBC % (auto) 0.0 PT 41.5 H INR 3.4 H Anion Gap 11 L Estim Creat Clear Calc 72.4 Estimated GFR > 60 Random Glucose 83 Calcium 8.6 Microbiology Microbiology Results: Microbiology 09/27/22 12:47 Blood Culture - Preliminary Blood - Venous No growth after 24 hours. 09/27/22 12:09 Blood Culture - Preliminary Blood - Venous No growth after 24 hours. Assessment and Plan (1) Acute on chronic respiratory failure with hypoxia: Status: Acute Plan 66 yo F with a PMH of heart failure with reduced ejection fraction, mitral and aortic valve replacement (AVR completed at [facility] in August 2022), chronic hypoxemic respiratory failure on 3 L supplemental oxygen, paroxysmal AFib who presents to the hospital with respiratory symptoms. She is diagnosed with acute exacerbation of HFpEF. 1. Acute on Chronic resp failure with hypoxia due to CHF will treat underlying issues improving and now on her baseline O2 3L 2. Acute on chronic HFpEF improving slowly continue iv lasix cardiology input appreciated 3. PAF currently in sinus on cardizem at home, which is on hold -- restart once okay'ed by cardiology continue coumadin 4. AVR/MVR continue coumadin -- 2.5 to 3.5 INR 5. Chronic copd continue baseline inhalers 6. hypothyroid continue synthoird 7. Chronic macrocytic anemia due to b12 def will transfuse 1 unit prbc - likely playing a role in her symptoms Full Code DVT pptx -- Coumadin Requires continued hospitalization due to acute chf decompensation which has not improved sufficienctly to transition to oral lasix. Quality Stroke Does the patient have a stroke diagnosis?: No VTE Prior VTE?: No VTE Risk Level:: Medical - moderate - high VTE Device Contraindication: Treatment Not Indicated VTE Drug Contraindication: N/A - Med Ordered
--- NOTE | 2022-09-29 10:58 | P.PNCA_ITS ---
Subjective Subjective Date of Service: 09/29/22 Interval history: Seen and examined at bedside. She is saying her breathing is little better but still short of breath. Physical Exam Vital Signs: Last Vital Signs Temp 98.2 F 09/29/22 07:34 Pulse 67 09/29/22 07:34 Resp 19 09/29/22 07:34 BP 104/51 L 09/29/22 07:34 Pulse Ox 91 L 09/29/22 07:34 O2 Del Method 09/29/22 07:34 O2 Flow Rate 2.5 09/29/22 07:34 Oxygen Flow Rate 4 09/27/22 11:11 BMI result Body Mass Index 27.4 GENERAL APPEARANCE: in no acute distress, pleasant. NECK: no carotid bruit, mild jugular venous distention. SKIN: no suspicious lesions, warm and dry. HEART: Systolic murmur aortic area. Mechanical 1st heart sound. LUNGS: Clear to auscultation. ABDOMEN: soft, nontender. EXTREMITIES: No significant edema currently. PERIPHERAL PULSES: equal. NEUROLOGIC: No gross deficits, AAO X 3 Objective Labs and Meds Result diagrams: 09/29/22 05:15 09/29/22 05:15 Lab results: Laboratory Results - last 24 hr 09/29/22 09/29/22 09/29/22 05:15 05:15 05:15 WBC 7.6 RBC 2.73 L Hgb 7.4 L Hct 24.5 L MCV 89.7 MCH 27.1 MCHC 30.2 L RDW 18.2 H Plt Count 248 MPV 13.0 H Absolute Nucleated RBC 0.000 Nucleated RBC % (auto) 0.0 PT 41.5 H INR 3.4 H Sodium 137 Potassium 3.5 Chloride 102 Carbon Dioxide 28 Anion Gap 11 L BUN 19 H Creatinine 0.70 Estim Creat Clear Calc 72.4 Estimated GFR > 60 Random Glucose 83 Calcium 8.6 Crossmatch 09/29/22 10:29 WBC RBC Hgb Hct MCV MCH MCHC RDW Plt Count MPV Absolute Nucleated RBC Nucleated RBC % (auto) PT INR Sodium Potassium Chloride Carbon Dioxide Anion Gap BUN Creatinine Estim Creat Clear Calc Estimated GFR Random Glucose Calcium Crossmatch See Detail Progress Note: A&P Assessment and plan (1) Acute diastolic CHF (congestive heart failure): Status: Acute Plan [age] year presenting shortness of breath, anemia on background of being off diuretics. Clinically was in heart failure. Continue IV diuretics. Give 1 unit of blood with 40 mg IV Lasix. She was previously labeled as amiodarone toxicity but I think there is no obvio us evidence of that. She was in heart failure and even CT scan at that time showed ground-glass opacities which were central rather than peripheral. In any case I think underlying issue right now is heart failure. Transfusion 1 unit of blood and diuretics is the way to go. I would avoid diltiazem currently. Thank you for allowing me to participate in the care of your patient. Please feel free to contact me if you have any questions. Time Spent With Patient Time: Total time spent is greater than 50% in coordination of care (as documented) at patient's floor/unit and/or counseling patient: Progress Note: Quality Stroke Does the patient have a stroke diagnosis?: No Procedures Date of Service Date of Service: 09/29/22
[2022-09-29] MEDS: Warfarin Sodium 2.5 MG TABLET PO (17:34)
[2022-09-30] VITALS (9 sets, daily range): BP systolic 110–122; BP diastolic 57–67; PULSE 64–82; RESP 16–20; TEMP 36.1–36.4; O2SAT 85–96
[2022-09-30] MEDS: Levothyroxine Sodium 25 MCG TABLET PO (05:21)
[2022-09-30 06:23] LABS: INTERNATIONAL NORM RATIO 3.8 (0.9-1.1); Prothrombin Time 45.6 SEC (10.0-13.1)
[2022-09-30 07:41] LABS: Hematocrit 29.2 % (37.0-47.0); Hemoglobin 9.1 g/dl (12.0-16.0); Mean Corpuscular HGB Conc 31.2 g/dl (31.0-35.0); Mean Corpuscular Hemoglobin 27.9 pg (27.0-33.0); Mean Corpuscular Volume 89.6 fL (80.0-98.0); Platelet Count 233 X10*3/uL (160-400); Red Blood Count 3.26 X10*6/uL (4.20-5.50); Red Cell Distribution Width 17.4 % (11.0-16.0); White Blood Count 6.4 X10*3/uL (4.8-10.8)
[2022-09-30 08:18] LABS: Anion Gap 4 (12-20); Blood Urea Nitrogen 16 mg/dL (9-16); Calcium 8.6 mg/dL (8.4-10.2); Carbon Dioxide 30 mmol/L (22-29); Chloride 104 mmol/L (96-108); Creatinine Clr Calc Pharmacy 75.7; Estimated Glomerular Filt Rate > 60; Glucose Random 82 mg/dL (60-115); Potassium 3.4 mmol/L (3.3-5.1); Sodium 135 mmol/L (135-145)
[2022-09-30] MEDS: Fluticasone/Vilanterol 200/25 BLST.W.DEV 1 PUFF INHALE (08:25)
[2022-09-30] MEDS: Sertraline HCL 100 MG TABLET 200 MG PO (08:33)
[2022-09-30] MEDS: Atorvastatin Calcium 20 MG TABLET PO (08:33)
[2022-09-30] MEDS: 0.9 % Sodium Chloride Flush 3 ML SYRINGE IVFLUSH ×2 (08:34→17:17)
[2022-09-30] MEDS: Furosemide 40 MG/4 ML VIAL IVPUSH ×2 (08:34→17:17)
--- NOTE | 2022-09-30 08:48 | P.PNIM_ITS ---
Subjective Subjective Date of Service: 09/30/22 Interval History: seen and examined this AM states she had a good night sleep reports less orthpnea and less sob with exertion Review of Systems negative except HPI Physical Exam Vital Signs: Vital Signs: Last Vital Signs Temp 97.4 F 09/30/22 07:59 Pulse 67 09/30/22 08:29 Resp 20 09/30/22 08:29 BP 119/61 09/30/22 07:59 Pulse Ox 92 09/30/22 08:00 O2 Del Method 09/30/22 08:00 O2 Flow Rate 2.5 09/30/22 08:00 Oxygen Flow Rate 4 09/27/22 11:11 BMI result Body Mass Index 27.4 Const: Other: General - no acute distress, appears comfortable Cardiovascular - regular rate and rhythm, S1-S2 Lungs - air entry improving Abdomen - soft, nontender, no rebound or guarding Extremities - no edema bilaterally Neuro - awake and alert, no focal deficits Objective Data Active Medications Acetaminophen (Acetaminophen 325 Mg Tablet) 650 mg PO Q4H PRN PRN Reason: Pain, Mild (Pain Scale 1-3) Last Admin: 09/29/22 17:43 Dose: 650 mg Documented By: GUI Albuterol Sulfate (Albuterol Sulfate 90 Mcg 8 Gm Inhaler) 1 puff INHALE Q4H PRN PRN Reason: Wheezing Atorvastatin Calcium (Atorvastatin Calcium 20 Mg Tablet) 20 mg PO DAILY [facility] Last Admin: 09/30/22 08:33 Dose: 20 mg Documented By: BRADLY Fluticasone/Vilanterol (Fluticasone/Vilanterol 200/25 Blst.W.Dev) 1 puff INHALE RDAILY [facility] Last Admin: 09/30/22 08:25 Dose: 1 puff Documented By: TARSHA Furosemide (Furosemide 40 Mg Tablet) 40 mg PO DAILY [facility]; Protocol Levothyroxine Sodium (Levothyroxine Sodium 25 Mcg Tablet) 25 mcg PO DAILY@0600 [facility] Last Admin: 09/30/22 05:21 Dose: 25 mcg Documented By: ROGERIO Melatonin (Melatonin 3 Mg Tablet) 6 mg PO BEDTIME PRN PRN Reason: Insomnia Ondansetron HCl (Ondansetron Hcl 4 Mg/2 Ml Vial) 4 mg IVPUSH Q8H PRN PRN Reason: Nausea and Vomiting Pharmacy Consult (Consult Rx Perform Med Rec) 1 each MISCELLANE ONCE PRN PRN Reason: Consult order Sertraline HCl (Sertraline Hcl 100 Mg Tablet) 200 mg PO DAILY [facility] Last Admin: 09/30/22 08:33 Dose: 200 mg Documented By: BRADLY Sodium Chloride (0.9 % Sodium Chloride Flush 3 Ml Syringe) 3 ml IVFLUSH QSHIFT [facility] Last Admin: 09/30/22 08:34 Dose: 3 ml Documented By: BRADLY Tiotropium Musella (Tiotropium Musella 18 Mcg Cap.W.Dev) 1 puff INHALE RDAILY [facility] Last Admin: 09/30/22 08:25 Dose: 1 puff Documented By: ULRICAngeles Warfarin Sodium (Warfarin Sodium 2.5 Mg Tablet) 5 mg PO SuTuFr@1800 [facility] Last Admin: 09/28/22 18:01 Dose: 5 mg Documented By: RIOSCEL Warfarin Sodium (Warfarin Sodium 2.5 Mg Tablet) 2.5 mg PO MoWeThSa@1800 [facility] Last Admin: 09/29/22 17:34 Dose: 2.5 mg Documented By: GUI Labs CBC & Chem 7: 09/30/22 05:48 09/30/22 05:48 Labs: Laboratory Results - last 24 hr 09/29/22 09/29/22 09/30/22 05:15 10:29 05:48 MCV MCH MCHC RDW Plt Count MPV Absolute Nucleated RBC Nucleated RBC % (auto) PT 45.6 H INR 3.8 H Anion Gap 11 L Estim Creat Clear Calc 72.4 Estimated GFR > 60 Random Glucose 83 Calcium 8.6 Blood Type O Positive Antibody Screen NEGATIVE Crossmatch See Detail 09/30/22 09/30/22 05:48 05:48 MCV 89.6 MCH 27.9 MCHC 31.2 RDW 17.4 H Plt Count 233 MPV 12.0 Absolute Nucleated RBC 0.000 Nucleated RBC % (auto) 0.0 PT INR Anion Gap 4 L Estim Creat Clear Calc 75.7 Estimated GFR > 60 Random Glucose 82 Calcium 8.6 Blood Type Antibody Screen Crossmatch Microbiology Microbiology Results: Microbiology 09/27/22 12:47 Blood Culture - Preliminary Blood - Venous No growth after 48 hours. 09/27/22 12:09 Blood Culture - Preliminary Blood - Venous No growth after 48 hours. Assessment and Plan (1) Acute diastolic CHF (congestive heart failure): Status: Acute Plan 66 yo F with a PMH of heart failure with reduced ejection fraction, mitral and aortic valve replacement (AVR completed at [facility] in August 2022), chronic hypoxemic respiratory failure on 3 L supplemental oxygen, paroxysmal AFib who presents to the hospital with respiratory symptoms. She is diagnosed with acute exacerbation of HFpEF. 1. Acute on Chronic resp failure with hypoxia due to CHF will treat underlying issues improving and now on her baseline O2 3L 2. Acute on chronic HFpEF improving slowly IV lasix today and transition to oral by tomorrow 3. PAF currently in sinus on cardizem at home, which is on hold -- restart once okay'ed by cardiology INR 3.8, hold coumadin today 4. AVR/MVR continue coumadin -- 2.5 to 3.5 INR INR 3.8 - hold coumadin today 5. Chronic copd continue baseline inhalers 6. hypothyroid continue synthoird 7. Chronic macrocytic anemia due to b12 def s/p 1 unit prbc with approrpriate improvement in h/h Full Code DVT pptx -- Coumadin Requires continued hospitalization: being transitioned to oral diuretics with anticipated d/ in the next 24 hours Quality Stroke Does the patient have a stroke diagnosis?: No VTE Prior VTE?: No VTE Risk Level:: Medical - moderate - high VTE Device Contraindication: Treatment Not Indicated VTE Drug Contraindication: N/A - Med Ordered
--- NOTE | 2022-09-30 12:18 | PM.PNCARD ---
Subjective Subjective Date of Service: 09/30/22 Interval history: Seen examined at bedside. She was transfused 1 unit of blood and hemoglobin is 9. Overall she is saying she is better than yesterday. Physical Exam Vital Signs: Last Vital Signs Temp 97.4 F 09/30/22 07:59 Pulse 67 09/30/22 08:29 Resp 20 09/30/22 08:29 BP 119/61 09/30/22 07:59 Pulse Ox 92 09/30/22 08:00 O2 Del Method 09/30/22 08:00 O2 Flow Rate 2.5 09/30/22 08:00 Oxygen Flow Rate 4 09/27/22 11:11 BMI result Body Mass Index 27.4 GENERAL APPEARANCE: in no acute distress, pleasant. NECK: no carotid bruit, mild jugular venous distention. SKIN: no suspicious lesions, warm and dry. HEART: Systolic murmur aortic area. Mechanical 1st heart sound. LUNGS: Crackles both lungs right more than left. ABDOMEN: soft, nontender. EXTREMITIES: No significant edema currently. PERIPHERAL PULSES: equal. NEUROLOGIC: No gross deficits, AAO X 3 Objective Labs and Meds Result diagrams: 09/30/22 05:48 09/30/22 05:48 Lab results: Laboratory Results - last 24 hr 09/29/22 09/30/22 09/30/22 10:29 05:48 05:48 WBC 6.4 RBC 3.26 L Hgb 9.1 L D Hct 29.2 L MCV 89.6 MCH 27.9 MCHC 31.2 RDW 17.4 H Plt Count 233 MPV 12.0 Absolute Nucleated RBC 0.000 Nucleated RBC % (auto) 0.0 PT 45.6 H INR 3.8 H Sodium Potassium Chloride Carbon Dioxide Anion Gap BUN Creatinine Estim Creat Clear Calc Estimated GFR Random Glucose Calcium Blood Type O Positive Antibody Screen NEGATIVE Crossmatch See Detail 09/30/22 05:48 WBC RBC Hgb Hct MCV MCH MCHC RDW Plt Count MPV Absolute Nucleated RBC Nucleated RBC % (auto) PT INR Sodium 135 Potassium 3.4 Chloride 104 Carbon Dioxide 30 H Anion Gap 4 L BUN 16 Creatinine 0.67 Estim Creat Clear Calc 75.7 Estimated GFR > 60 Random Glucose 82 Calcium 8.6 Blood Type Antibody Screen Crossmatch Progress Note: A&P Assessment and plan (1) Acute diastolic CHF (congestive heart failure): Status: Acute Plan 66-year-old lady presenting with shortness of breath and anemia on background of being off diuretics. Clinically was in heart failure. Continue IV diuretics. Given 1 unit of blood with 40 mg IV Lasix. She was previously labeled as amiodarone toxicity but I think there is no obvious evidence of that. She was in heart failure and even CT scan at that time showed ground-glass opacities which were central rather than peripheral. In any case I think underlying issue right now is heart failure. Still volume overloaded. Give extra dose of furosemide in the evening. If improving and can be changed to furosemide 40 mg once a day from tomorrow. Would recommend not restarting Cardizem. May be a low-dose beta-ashok should be started. INR 3.8. Thank you for allowing me to participate in the care of your patient. Please feel free to contact me if you have any questions. Time Spent With Patient Time: Total time spent is greater than 50% in coordination of care (as documented) at patient's floor/unit and/or counseling patient: Progress Note: Quality Stroke Does the patient have a stroke diagnosis?: No Procedures Date of Service Date of Service: 09/30/22
--- NOTE | 2022-09-30 13:33 | PC.NURSE ---
Pt instructed on use of portable O2 tank. amb in [place] with supervision. slight KRAUS tolerated well. pt also reports using tank to go to the bathroom.
--- NOTE | 2022-09-30 17:36 | PC.NURSE ---
Sat 89-91 on 3 l of oxygen,need oxygen order,lungs coarse crackles right base,fine crackles left base,patient denies SOB ,Dr. Butterfield notified,will monitor
[2022-10-01] MEDS: 0.9 % Sodium Chloride Flush 3 ML SYRINGE IVFLUSH ×3 (00:09→16:45)
[2022-10-01 04:00] VITALS: BP 126/58; PULSE 61; RESP 18; TEMP 36.1; O2SAT 93
[2022-10-01] MEDS: Levothyroxine Sodium 25 MCG TABLET PO (06:31)
[2022-10-01 06:36] VITALS: BMI 27.1
[2022-10-01 07:54] LABS: INTERNATIONAL NORM RATIO 2.9 (0.9-1.1); Prothrombin Time 34.8 SEC (10.0-13.1)
[2022-10-01 08:00] VITALS: BP 105/64; PULSE 71; RESP 18; TEMP 36.2; O2SAT 92
[2022-10-01] MEDS: Cyanocobalamin (Vitamin B-12) 1,000 MCG TABLET 1000 MCG PO (08:34)
[2022-10-01] MEDS: Atorvastatin Calcium 20 MG TABLET PO (08:34)
[2022-10-01] MEDS: Sertraline HCL 100 MG TABLET 200 MG PO (08:35)
[2022-10-01] MEDS: Furosemide 40 MG TABLET PO (08:35)
[2022-10-01] MEDS: Fluticasone/Vilanterol 200/25 BLST.W.DEV 1 PUFF INHALE (08:41)
[2022-10-01 08:44] VITALS: PULSE 77; RESP 16; O2SAT 97
--- NOTE | 2022-10-01 12:02 | HO.PM.IMPN ---
Subjective Subjective Date of Service: 10/01/22 Interval History: cc: sob interval history:overall better, still some sob Cardiovascular Cardiovascular: Reports no additional cardiovascular complaints Gastrointestinal Gastrointestinal: Reports no additional gastrointestinal complaints Physical Exam Vital Signs: Vital Signs: Last Vital Signs Temp 97.2 F 10/01/22 08:00 Pulse 77 10/01/22 08:44 Resp 16 10/01/22 08:44 BP 105/64 10/01/22 08:00 Pulse Ox 92 10/01/22 08:00 O2 Del Method 10/01/22 08:00 O2 Flow Rate 2.5 10/01/22 08:00 Oxygen Flow Rate 4 09/27/22 11:11 BMI result Body Mass Index 27.1 General: AO X 3, no acute distress Resp: CTA bilateral, no accessory muscles used CVS: S1,S2,RRR GI: soft, non tender, non distended Neuro: motor grossly intact, alert Psych: appropriate affect, appropriate insight Objective Data Active Medications Acetaminophen (Acetaminophen 325 Mg Tablet) 650 mg PO Q4H PRN PRN Reason: Pain, Mild (Pain Scale 1-3) Last Admin: 09/29/22 17:43 Dose: 650 mg Documented By: GUI Albuterol Sulfate (Albuterol Sulfate 90 Mcg 8 Gm Inhaler) 1 puff INHALE Q4H PRN PRN Reason: Wheezing Atorvastatin Calcium (Atorvastatin Calcium 20 Mg Tablet) 20 mg PO DAILY [facility] Last Admin: 10/01/22 08:34 Dose: 20 mg Documented By: MATILDA Cyanocobalamin (Cyanocobalamin (Vitamin B-12) 1,000 Mcg Tablet) 1,000 mcg PO DAILY [facility] Last Admin: 10/01/22 08:34 Dose: 1,000 mcg Documented By: MATILDA Fluticasone/Vilanterol (Fluticasone/Vilanterol 200/25 Blst.W.Dev) 1 puff INHALE RDAILY [facility] Last Admin: 10/01/22 08:41 Dose: 1 puff Documented By: KVNG Furosemide (Furosemide 40 Mg Tablet) 40 mg PO DAILY [facility]; Protocol Last Admin: 10/01/22 08:35 Dose: 40 mg Documented By: MATILDA Levothyroxine Sodium (Levothyroxine Sodium 25 Mcg Tablet) 25 mcg PO DAILY@0600 [facility] Last Admin: 10/01/22 06:31 Dose: 25 mcg Documented By: JANEL Melatonin (Melatonin 3 Mg Tablet) 6 mg PO BEDTIME PRN PRN Reason: Insomnia Ondansetron HCl (Ondansetron Hcl 4 Mg/2 Ml Vial) 4 mg IVPUSH Q8H PRN PRN Reason: Nausea and Vomiting Pharmacy Consult (Consult Rx Perform Med Rec) 1 each MISCELLANE ONCE PRN PRN Reason: Consult order Sertraline HCl (Sertraline Hcl 100 Mg Tablet) 200 mg PO DAILY [facility] Last Admin: 10/01/22 08:35 Dose: 200 mg Documented By: MATILDA Sodium Chloride (0.9 % Sodium Chloride Flush 3 Ml Syringe) 3 ml IVFLUSH QSHIFT [facility] Last Admin: 10/01/22 08:41 Dose: 3 ml Documented By: MATILDA Tiotropium [place] (Tiotropium [place] 18 Mcg Cap.W.Dev) 1 puff INHALE RDAILY [facility] Last Admin: 10/01/22 08:41 Dose: 1 puff Documented By: KVNG Warfarin Sodium (Warfarin Sodium 2.5 Mg Tablet) 5 mg PO [email or web address] [facility] Last Admin: 09/28/22 18:01 Dose: 5 mg Documented By: FABIAN Warfarin Sodium (Warfarin Sodium 2.5 Mg Tablet) 2.5 mg PO [email or web address]@1800 [facility] Last Admin: 09/29/22 17:34 Dose: 2.5 mg Documented By: GUI Labs CBC & Chem 7: 09/30/22 05:48 09/30/22 05:48 Labs: Laboratory Results - last 24 hr 10/01/22 06:52 PT 34.8 H INR 2.9 H Assessment and Plan (1) Acute diastolic CHF (congestive heart failure): Status: Acute Plan 66 yo F with a PMH of heart failure with reduced ejection fraction, mitral and aortic valve replacement [place] [facility] [place] chronic hypoxemic respiratory failure on 3 L supplemental oxygen, paroxysmal AFib who presents to the hospital with respiratory symptoms. She is diagnosed with acute exacerbation of HFpEF. Acute on Chronic resp failure with hypoxia due to CHF will treat underlying issues improving and now on her baseline O2 3L Acute on chronic HFpEF improving slowly changed to po lasix paroxysmal afib currently in sinus coumadin bio AVR/ mechacanical MVR continue coumadin -- 2.5 to 3.5 INR Chronic copd continue baseline inhalers hypothyroid continue synthoird Chronic macrocytic anemia due to b12 def s/p 1 unit prbc with approrpriate improvement in h/h monthly im b12 per patient preference Full Code DVT pptx -- Coumadin reason for continued hospitalization: still sob Quality Stroke Does the patient have a stroke diagnosis?: No VTE Prior VTE?: No VTE Risk Level:: Medical - moderate - high VTE Device Contraindication: Treatment Not Indicated VTE Drug Contraindication: N/A - Med Ordered
[2022-10-01 16:00] VITALS: BP 118/82; PULSE 69; RESP 16; TEMP 36.6; O2SAT 91
--- NOTE | 2022-10-01 17:12 | PM.PNCARD ---
Subjective Subjective Date of Service: 10/01/22 Principal diagnosis: CHF, mechanical mitral valve and TAVR, paroxysmal atrial fibrillation Interval history: Patient currently not having any overt bleeding. Says her breathing is improved significantly since transfusion. Overall intake and output chart is unclear. Switch to oral Lasix today. Maintaining normal rhythm. Denies any palpitation irregular heartbeat. Very frustrated with overall clinical course. Review of Systems Constitutional: Reports no additional constitutional complaints Cardiovascular: Denies chest pain, Denies leg edema, Denies lightheadedness, Denies Loss of Consciousness, Denies palpitations and Reports dyspnea on exertion Respiratory: Reports dyspnea on exertion Gastrointestinal: Reports no additional gastrointestinal complaints Reports system reviewed and no additional complaints, except as documented Endocrine: Reports no additional endocrine complaints and Denies palpitations Physical Exam Vital Signs: Last Vital Signs Temp 97.8 F 10/01/22 16:00 Pulse 69 10/01/22 16:00 Resp 16 10/01/22 16:00 BP 118/82 10/01/22 16:00 Pulse Ox 91 L 10/01/22 16:00 O2 Del Method 10/01/22 16:00 O2 Flow Rate 2 10/01/22 16:00 Oxygen Flow Rate 4 09/27/22 11:11 BMI result Body Mass Index 27.1 Const General: cooperative, comfortable and in distress mild and respiratory Nutritional Appearance: average body habitus Orientation/consciousness: patient oriented x3 Neck Neck: Yes trachea midline, Yes supple and Yes no JVD Resp Effort & Inspection: normal respiratory effort Auscultation: crackles (Coarse) bilateral 1/[address] up Cardio Jugular venous distension: no JVD Rate: regular rate Rhythm: regular rhythm Heart sounds: S2 normal heart sound present, Clicking heart sound present (Normal opening and closing click of [place] Alex mitral valve) and Murmur heart sound present systolic GI Auscultation: normal bowel sounds Skin General skin exam: no rashes or lesions noted and ecchymosis Neuro General: patient oriented x3 and no focal motor deficits Extrem General: Yes no clubbing, cyanosis or edema Objective Labs and Meds Result diagrams: 09/30/22 05:48 09/30/22 05:48 Lab results: Laboratory Results - last 24 hr 10/01/22 06:52 PT 34.8 H INR 2.9 H Progress Note: A&P Assessment and plan (1) Acute diastolic CHF (congestive heart failure): Status: Acute Assessment and Plan: Patient admitted with acute heart failure most likely precipitated by significant anemia in the setting of diastolic dysfunction, diuresis is unclear. However she says the symptoms have significantly improved with transfusion and diuresis. Agree with increasing Lasix to 40 mg daily. Heart failure management was discussed and daily weight monitoring avoidance of salt loading was discussed she understands agrees. History of diuretics as needed. Continue to maintain hematocrit over 30. Overall prognosis is guarded. She does have coarse crackles at both lung bases could be atelectasis and/or interstitial lung disease probably related to amiodarone. At this point time avoid amiodarone. Continue respiratory support. Currently still requires oxygen and should continue the same at home. Add spironolactone 12.5 mg to regimen. Eventually may consider adding Jardiance to her regimen for heart failure management. Will follow as outpatient. (2) Paroxysmal atrial fibrillation: Status: Acute Assessment and Plan: Paroxysmal atrial fibrillation maintaining rhythm. Will continue to monitor clinically. Avoid amiodarone due to suspected amiodarone toxicity. Start Cardizem CD 1 20 mg daily. (3) History of transcatheter aortic valve replacement (TAVR): Status: Acute Assessment and Plan: Recent transcatheter aortic valve placement. Follow-up echocardiogram in September. Will monitor she continues to have systolic murmur question patient prosthesis mismatch. Will follow with echocardiogram in near future. (4) Hx of mitral valve replacement: Status: Acute Assessment and Plan: Prior history of mechanical mitral valve replacement with Saint Alex mitral valve. There is a systolic murmur. Will evaluate with echocardiogram. Continue warfarin therapy with target INR between 2.5 and 3.5. Can discontinue aspirin therapy to reduce bleeding risk. She has significant anemia which complicates her oral anticoagulation although there are no other significant options. Continue to monitor her hematocrit regularly. Will sign of the case and will follow as outpatient. Time Spent With Patient Time: Total time spent is greater than 50% in coordination of care (as documented) at patient's floor/unit and/or counseling patient: Progress Note: Quality Stroke Does the patient have a stroke diagnosis?: No Procedures Date of Service Date of Service: 10/01/22
[2022-10-01] MEDS: Warfarin Sodium 2.5 MG TABLET PO (17:44)
[2022-10-01] MEDS: Acetaminophen 325 MG TABLET 650 MG PO (17:45)
[2022-10-01 20:00] VITALS: BP 131/58; PULSE 77; RESP 16; TEMP 36.4; O2SAT 90
[2022-10-02] MEDS: 0.9 % Sodium Chloride Flush 3 ML SYRINGE IVFLUSH ×2 (00:27→09:39)
[2022-10-02 03:55] VITALS: BP 115/55; PULSE 53; RESP 18; TEMP 36.7; O2SAT 97
[2022-10-02 06:00] VITALS: BMI 27.1
[2022-10-02] MEDS: Levothyroxine Sodium 25 MCG TABLET PO (06:21)
[2022-10-02 06:54] LABS: Hematocrit 34.4 % (37.0-47.0); Hemoglobin 10.5 g/dl (12.0-16.0); Mean Corpuscular HGB Conc 30.5 g/dl (31.0-35.0); Mean Corpuscular Hemoglobin 27.7 pg (27.0-33.0); Mean Corpuscular Volume 90.8 fL (80.0-98.0); Mean Platelet Volume 11.6 fL (9.4-12.3); Platelet Count 267 X10*3/uL (160-400); Red Blood Count 3.79 X10*6/uL (4.20-5.50); Red Cell Distribution Width 17.2 % (11.0-16.0)
[2022-10-02 07:03] LABS: Prothrombin Time 23.6 SEC (10.0-13.1)
[2022-10-02 07:16] LABS: Anion Gap 8 (12-20); Blood Urea Nitrogen 15 mg/dL (9-16); Carbon Dioxide 33 mmol/L (22-29); Chloride 105 mmol/L (96-108); Creatinine Clr Calc Pharmacy 68.2; Estimated Glomerular Filt Rate > 60; Glucose Fasting 83 mg/dL (60-99); Potassium 3.7 mmol/L (3.3-5.1); Sodium 142 mmol/L (135-145)
[2022-10-02] MEDS: Fluticasone/Vilanterol 200/25 BLST.W.DEV 1 PUFF INHALE (07:49)
[2022-10-02 07:52] VITALS: PULSE 79; RESP 20; O2SAT 93
[2022-10-02 08:00] VITALS: BP 109/58; PULSE 59; RESP 18; TEMP 36; O2SAT 95
[2022-10-02] MEDS: Atorvastatin Calcium 20 MG TABLET PO (09:38)
[2022-10-02] MEDS: Cyanocobalamin (Vitamin B-12) 1,000 MCG TABLET 1000 MCG PO (09:38)
[2022-10-02] MEDS: Sertraline HCL 100 MG TABLET 200 MG PO (09:38)
[2022-10-02] MEDS: Furosemide 40 MG TABLET PO (09:38)
--- NOTE | 2022-10-02 09:43 | PM.DS ---
DS: Providers Provider Date of Service: 10/02/22 Date of admission: 09/27/22 16:10 Primary care physician: Daniela Chopra MD Consults: 09/28/22 08:37 Consult to Cardiology Routine Consulting Provider: López Lion Reason for consultation: acute chf, recent (last month) AVR DS: Diagnosis Discharge Diagnosis (1) Acute diastolic CHF (congestive heart failure): Status: Acute (2) Paroxysmal atrial fibrillation: Status: Acute (3) History of transcatheter aortic valve replacement (TAVR): Status: Acute (4) Hx of mitral valve replacement: Status: Acute DS: Summary Hospital Course Hospital Course: from initial hpi: Chief Complaint: Shortness of breath This is a 66-year-old female with pertinent history of diastolic heart failure, mitral and aortic wall replacement (aortic valve replaced on 09/10/2022), chronic hypoxemic respiratory failure on 3 L supplemental oxygen, history of amiodarone pulmonary and renal toxicity, hypothyroidism, mood disorder, COPD, chronic normocytic anemia who was sent to the emergency department by Dr. Alex for evaluation of dyspnea and hypoxemia.? Patient states she had aortic valve repair about 2 weeks ago and was discharged from [facility] on 09/13.? She was asked not to take her Lasix for a brief period after being discharged from [facility] due to amiodarone renal toxicity.? Patient states he has ongoing dyspnea that started about 3-5 days ago.? It has been progressive and worse with exertion.? Patient chronically uses 3 L supplemental oxygen at baseline.? Patient's saw Dr. Alex today for a B12 injection and was found to be hypoxemic with ambulation with O2 sats in the 70s and was sent to the ER for further evaluation.? Patient endorses orthopnea and PND.? No leg swelling.? 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 Patient denies chest discomfort, palpitations, fever, chills, productive cough, wheezing.? Of note, patient was admitted about a month ago for amiodarone pulmonary toxicity.? Amiodarone was discontinued and patient was put on a steroid taper that she has completed. In the emergency department, pulmonary venous congestion noted on chest x-ray.? Patient requiring 4 L supplemental oxygen to maintain sats close to 88%. hospital course: Patient was admitted for acute on chronic respiratory failure with hypoxia due to acute on chronic diastolic CHF. She was treated with IV Lasix and diuresed well, she was transitioned back to oral Lasix which was increased from her baseline of 20 mg to 40 mg. For paroxysmal atrial fibrillation she is in sinus rhythm she will be restarted on diltiazem 120 mg daily. She will continue on Coumadin for which she is already on for her mechanical mitral valve. Her chronic COPD was at baseline and she continued inhalers as needed. For hypothyroidism she was continued on Synthroid. Patient has chronic macrocytic anemia due to B12 deficiency. She is on monthly B12 IM injections. She received 1 unit PRBC in the hospital. Patient is feeling better will be discharged home. Time Spent with Patient Time attestation: Total time spent providing and/or coordinating discharge services: Discharge coordination time: Greater than 30 minutes Quality: Safe Use of Opioids Does Pt have an Active Cancer Diagnosis on the Problem List?: No Quality: Stroke Does the patient have a stroke diagnosis?: No Physical Exam Vital Signs: Vital Signs: Last Vital Signs Temp 96.8 F 10/02/22 08:00 Pulse 59 10/02/22 08:00 Resp 18 10/02/22 08:00 BP 109/58 L 10/02/22 08:00 Pulse Ox 95 10/02/22 08:00 O2 Del Method 10/02/22 08:00 O2 Flow Rate 2.0 10/02/22 08:00 Oxygen Flow Rate 4 09/27/22 11:11 BMI result Body Mass Index 27.1 Const: General: cooperative, comfortable and in distress mild and respiratory Nutritional Appearance: average body habitus Orientation/consciousness: patient oriented x3 Neck: Neck: Yes trachea midline, Yes supple and Yes no JVD Resp: Effort & Inspection: normal respiratory effort Auscultation: crackles (Coarse) bilateral 1/[address] Cardio: Jugular venous distension: no JVD Rate: regular rate Rhythm: regular rhythm Heart sounds: S2 normal heart sound present, Clicking heart sound present (Normal opening and closing click of [place] Alex mitral valve) and Murmur heart sound present systolic GI: Auscultation: normal bowel sounds Skin: General skin exam: no rashes or lesions noted and ecchymosis Neuro: General: patient oriented x3 and no focal motor deficits Extrem: General: Yes no clubbing, cyanosis or edema DS: Data Data Completed and Pending Labs on day of discharge: Laboratory Results - last 24 hr 10/02/22 10/02/22 10/02/22 06:39 06:39 06:39 WBC 7.0 RBC 3.79 L Hgb 10.5 L Hct 34.4 L MCV 90.8 MCH 27.7 MCHC 30.5 L RDW 17.2 H Plt Count 267 MPV 11.6 Absolute Nucleated RBC 0.000 Nucleated RBC % (auto) 0.0 PT 23.6 H INR 2.0 H Sodium 142 Potassium 3.7 Chloride 105 Carbon Dioxide 33 H Anion Gap 8 L BUN 15 Creatinine 0.74 Estim Creat Clear Calc 68.2 Estimated GFR > 60 Fasting Glucose 83 Calcium 9.0 Preliminary micro results at discharge 09/27/22 12:47 Blood Culture - Preliminary Blood - Venous No growth after 48 hours. 09/27/22 12:09 Blood Culture - Preliminary Blood - Venous No growth after 48 hours. Discharge Plan Discharge Anticipated Discharge Date/Time: 10/02/22 09:42 Patient Disposition: Home, Self-Care Discharge Diagnosis: chf Referrals: Daniela Chopra MD [Primary Care Provider] - 1 Week Discharge Medications: New furosemide 40 mg Tablet 40 mg PO DAILY Qty: 30 0RF Protocol: Hold for SBP< HOLD for SBP < : 90 Continued sertraline 100 mg Tablet 200 mg PO DAILY atorvastatin 20 mg Tablet 20 mg PO DAILY ferrous sulfate 325 mg (65 mg iron) Tablet 325 mg PO DAILY warfarin 2.5 mg tablet 2.5 mg PO MOWETHSA Protocol: Dose Management Condition: Saturday (Week One) Dose/Route: 7.5 mg Instruction: 3 x 2.5 mg tablets Condition: Saturday Dose/Route: 0 mg Instruction: 0 tablets Condition: Saturday Dose/Route: 2.5 mg Instruction: 1 x 2.5 mg tablet Condition: Saturday Dose/Route: 2.5 mg Instruction: 1 x 2.5 mg tablet Condition: Dose/Route: 2.5 mg Instruction: 1 x 2.5 mg tablet Condition: Saturday Dose/Route: 5 mg Instruction: 2 x 2.5 mg tablets Condition: Saturday Dose/Route: 2.5 mg Instruction: 1 x 2.5 mg tablet Condition: Saturday (Week Two) Dose/Route: 5 mg Instruction: 2 x 2.5 mg tablets Condition: Saturday Dose/Route: 2.5 mg Instruction: 1 x 2.5 mg tablet Condition: Saturday Dose/Route: 5 mg Instruction: 2 x 2.5 mg tablets Condition: Saturday Dose/Route: 2.5 mg Instruction: 1 x 2.5 mg tablet Condition: Dose/Route: 5 mg Instruction: 2 x 2.5 mg tablets Condition: Saturday Dose/Route: 2.5 mg Instruction: 1 x 2.5 mg tablet Condition: Saturday Dose/Route: 5 mg Instruction: 2 x 2.5 mg tablets Protocol Text: Adjustment Start Date: 09/27/22 INR Value: Pending INR Date: 09/27/22 Recheck Date: 10/01/22 Additional Instructions: REVEIW FOOD LIST, EAT A MIX OF GREENS AND REDS, STRETCH AND RAISE ARMS REVIEW FOODS FOR LUNG HEALTH Marquita Elliplokesh 200-62.5-25 mcg Blister With Device 1 inh INHALATION Q24H warfarin 2.5 mg tablet 5 mg PO SUTUFR Protocol: Dose Management Condition: Saturday (Week One) Dose/Route: 7.5 mg Instruction: 3 x 2.5 mg tablets Condition: Saturday Dose/Route: 0 mg Instruction: 0 tablets Condition: Saturday Dose/Route: 2.5 mg Instruction: 1 x 2.5 mg tablet Condition: Saturday Dose/Route: 2.5 mg Instruction: 1 x 2.5 mg tablet Condition: Dose/Route: 2.5 mg Instruction: 1 x 2.5 mg tablet Condition: Saturday Dose/Route: 5 mg Instruction: 2 x 2.5 mg tablets Condition: Saturday Dose/Route: 2.5 mg Instruction: 1 x 2.5 mg tablet Condition: Saturday (Week Two) Dose/Route: 5 mg Instruction: 2 x 2.5 mg tablets Condition: Saturday Dose/Route: 2.5 mg Instruction: 1 x 2.5 mg tablet Condition: Saturday Dose/Route: 5 mg Instruction: 2 x 2.5 mg tablets Condition: Saturday Dose/Route: 2.5 mg Instruction: 1 x 2.5 mg tablet Condition: Dose/Route: 5 mg Instruction: 2 x 2.5 mg tablets Condition: Saturday Dose/Route: 2.5 mg Instruction: 1 x 2.5 mg tablet Condition: Saturday Dose/Route: 5 mg Instruction: 2 x 2.5 mg tablets Protocol Text: Adjustment Start Date: 09/27/22 INR Value: Pending INR Date: 09/27/22 Recheck Date: 10/01/22 Additional Instructions: REVEIW FOOD LIST, EAT A MIX OF GREENS AND REDS, STRETCH AND RAISE ARMS REVIEW FOODS FOR LUNG HEALTH levothyroxine 25 mcg tablet 25 mcg PO DAILY albuterol sulfate [Ventolin HFA] 90 mcg/actuation HFA aerosol inhaler 1 puff inhalation Q4H PRN (Reason: Wheezing) diltiazem HCl 120 mg capsule,extended release 24 hr 120 mg PO DAILY Discontinued furosemide [Lasix] 20 mg tablet 20 mg PO DAILY Hold Instructions: Doctor's Order Discharge Orders: Discharge Order (Routine); Ordered 10/02/22 Ordered By: Deniz Soliz Diet: Low salt diet Activity on Discharge: As tolerated Stand Alone Forms: Patient Portal Discharge page Care Plan Goals: recovery Health Concerns: chf Plan of Treatment: lasix increased to 40mg daily, follow up with cardiology, aspirin stopped Assessment: see above
--- NOTE | 2022-10-02 10:12 | W.MHC.F2F ---
Service Date Service Date: 10/02/22 Encounter Date of encounter: 10/02/22 Reasons for Services Signs and symptoms assessed: sob on exertion Reason for assisted: medication management, medication treatment and teach disease management Homebound: Leaving the home is medically contraindicated at this time without the asist of a device and/or another person due th the listed conditions above and below. Reason homebound: unsteady gait / fall risk Certification: Based on the above findings, I certify that this patient is confined to the home and needs intermittent assisted care, physical therapy and/or speech therapy, or continues to need occupational therapy. The patient is under my care, and I have initiated the establishment of the plan of care. The patient will be followed by a physician who will periodically review the plan of care.
--- NOTE | 2022-10-02 11:34 | MHC.CM.PN ---
PATIENT IS DC HOME. SHE FEELS THAT SHE DOES NOT NEED [facility]. SHE IS CONCERNED THAT THEY MAY DC HER SERVICES WHEN THEY FIND OUT SHE GOES TO OUTSIDE APPTS. [facility] NOTIFIED OF [facility] AND ASKED FOR A RESPONSE THEY CAN FOLLOW UP WITH HER AT HOME, SHE IS DC. [facility] HAVE [facility] AND DC SUMMARY IN THE EVENT THAT THEY CAN STILL OFFER SERVICES. IMM 10/01 IN CHART
== END 2022-10-02 12:46 | disposition home or self-care (01) | DRG 291 ==
LOC: HO.ED 15:45 → HO.EDOVER 16:34 → HO.IMC 16:59 → HO.EDOVER 17:56 → HO.IMC 18:07 → HO.S3 09-28 21:01
PROVIDERS: Family Medicine; Internal Medicine; Admitting Provider Student in an Organized Health Care Education/Training Program; Emergency Provider Emergency Medicine; PCP Internal Medicine; Visit Provider Internal Medicine
DX: I11.0 Hypertensive heart disease with heart failure (principal); I50.33 Acute on chronic diastolic (congestive) heart failure; J96.21 Acute and chronic respiratory failure with hypoxia; D51.9 Vitamin B12 deficiency anemia, unspecified; E03.9 Hypothyroidism, unspecified; F39 Unspecified mood [affective] disorder; Z20.822 Contact with and (suspected) exposure to COVID-19; Z99.81 Dependence on supplemental oxygen; Z98.84 Bariatric surgery status; Z95.2 Presence of prosthetic heart valve; Z87.891 Personal history of nicotine dependence; Z88.8 Allergy status to other drugs, medicaments and biological substances; Z79.01 Long term (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; Z79.890 Hormone replacement therapy; Z79.899 Other long term (current) drug therapy
CPT/HCPCS: 36415; 71046; 80048; 80076; 81001; 83605; 83880; 84484; 85025; 85027; 85379; 85610; 86850; 86900; 86901; 86923; 87040; 87635; 93005; 94640; 99211; 99212; 99285; J1940; J2930; P9016

== ENCOUNTER → 2022-10-04 09:13 | Outpatient (BNVA) | payer MEDICARE, MEDICAID, SELFPAY | PROVIDERS: PCP Internal Medicine; Visit Provider Internal Medicine | DX: J44.9 Chronic obstructive pulmonary disease, unspecified (principal); J96.21 Acute and chronic respiratory failure with hypoxia; Z95.2 Presence of prosthetic heart valve; Z79.01 Long term (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; Z51.81 Encounter for therapeutic drug level monitoring | CPT/HCPCS: 85610; 99211; 99212 ==

== ENCOUNTER → 2022-10-08 08:53 | Outpatient (BNVA) | payer MEDICARE, MEDICAID, SELFPAY | PROVIDERS: PCP Internal Medicine; Visit Provider Internal Medicine | DX: Z95.2 Presence of prosthetic heart valve (principal); Z79.01 Long term (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; Z51.81 Encounter for therapeutic drug level monitoring | CPT/HCPCS: 85610; 99211 ==

== ENCOUNTER → 2022-10-11 10:32 | Outpatient (REF) | payer MEDICARE, MEDICAID, SELFPAY ==
--- NOTE | 2022-10-11 10:38 | CA_ITS ---
Transthoracic Echocardiogram Patient (Last, First, Middle): Nubia Bond, Gender: Female Date of : 1955 Age: 66 Procedure Date: 10/11/2022 Procedure Type: Transthoracic Echocardiogram Location: OP Height: 157.48 cm Weight: 66.23 kg BSA: 1.67 m2 Heart Rate: 66 bpm BP: 109 / 58 mmHg Color Making Supervisor: VINITA Referring MD: Luis Antonio Nelson MD Symptoms: Z95.3 - Presence of xenogenic heart valve Study Quality: Adequate ECG Rhythm: Sinus Conclusions: - The left ventricular systolic function is normal. The calculated ejection fraction is 56% by biplane method. - A mechanical prosthetic mitral valve is present. The prosthetic mitral valve appears to be functioning normally. - A bioprosthetic aortic valve is present. The prosthetic aortic valve appears to be functioning normally. - There is mild dilatation of the ascending aorta measuring 4.30 cm. Findings Left Ventricle Normal left ventricular cavity size. There is mildly increased left ventricular wall thickness. The left ventricular systolic function is normal. The calculated ejection fraction is 56% by biplane method. There is no evidence of regional wall motion abnormalities. Diastolic function is indeterminate on the basis of available data. Right Ventricle Mildly increased right ventricular cavity size. There is mildly decreased right ventricular systolic function. Atria The left atrium is severely dilated. The right atrium is moderately dilated. Aortic Valve A bioprosthetic aortic valve is present. The prosthetic aortic valve appears to be functioning normally. The peak aortic velocity is 2.45 m/s with a calculated peak gradient of 24 mmHg. The mean gradient is 13 mmHg. The aortic valve area is 1.87 cm2. Gradients slightly elevated but acceptable. Trivial para-valvular regurgitation. Mitral Valve A mechanical prosthetic mitral valve is present. The prosthetic mitral valve appears to be functioning normally. No significant regurgitation. Pulmonic Valve The pulmonic valve is likely normal. Tricuspid Valve There is trace tricuspid valve regurgitation. Tricuspid annular ring present. Great Vessels There is mild dilatation of the ascending aorta measuring 4.30 cm. Venous The inferior vena cava is normal in size and collapses greater than 50% with inspiration. Pericardium/Pleural There is no evidence of pericardial effusion. Prior Study Comparison Changes noted compared to prior study dated: 08/27/2022. s/p TAVR. Increase in ascending aortic size, not clear if technical. Measurements 2D Linear Measurements IVSd: 1.51 0.6-0.9/0.6-1.0 cm LVIDd: 4.44 3.9-5.3/4.2-5.9 cm LVIDd Index: 2.66 2.4-3.2/2.2-3.1 cm/m2 LVIDs: 2.98 2.0-3.6 cm LVPWd: 1.40 0.7-1.1 cm LA Diam: 4.70 2.7-3.8/3.0-4.0 cm LAIDs Index: 2.81 1.5-2.3 cm/m2 LV Mass: 321.92 67-162/88-224 g LV Mass Index: 192.77 43-95/49-115 g/m2 LVOT Diam: 2.00 3.0+(-)1.3 cm 2D Systolic Function EF 4C: 57.60 >55% EF 2C: 57.10 >55% EF BiP: 56.30 >55% Mitral Valve MV VTI: 0.38 MV Pk Vern: 1.73 MV Mn Vern: 0.84 MV Pk Grad: 12.00 MV Mn Grad: 4.00 MV Pk E: 1.64 MV PK A: 0.46 MV Decel Time: 208.00 E/A: 3.60 E'Lateral: 7.51 E'Medial: 5.11 E/E' Med: 32.10 E/E' Lat: 21.80 PHT: 61.00 MVA PHT: 3.61 MVA Continuity: 2.40 Decel [place]: 7.91 Aortic Valve AoV Pk Vern: 2.45 AoV Mn Vern: 1.67 AoV VTI: 0.49 AoV Pk Grad: 24.00 Aov Mn Grad: 13.00 RADHA Cont.VTI: 1.87 AI Pk Vern: 4.00 AI [place]: 2.36 LVOT LVOT Pk Vern: 1.43 LVOT Mn Vern: 1.01 LVOT VTI: 0.29 LVOT Pk Grad: 8.00 LVOT Mn Grad: 5.00 LVOT Diam: 2.00 LVOT Area: 3.14 Diastolic Function MV Pk E: 1.64 MV Pk A: 0.46 E/A: 3.60 E'Medial: 5.11 E/E' Med: 32.10 E' Laterial: 7.51 E/E' Lat: 21.80 Right Ventricle TAPSE (mm): 14.30 TVS' Vern: 9.90 Tricuspid Valve TR Pk Vern: 2.73 TR Pk Grad: 30.00 RA Press: 3.00 RVSP: 33.00 Great Vessels Aorta Sinus of Valsalva: 3.90 2.0-3.5 cm Ao Asc: 4.30 2.1-3.4 cm Pulmonary Valve PV Pk Vern: 1.24 Peak PV Grad: 6.00 Updated in Other Vendor System with Status of Final Santi Perry MD electronically signed on 10/14/2022 11:30:47 AM with status of Final
== END ==
LOC: HO.CARD 10:32
PROVIDERS: PCP Internal Medicine; Visit Provider Internal Medicine Cardiovascular Disease
DX: I50.30 Unspecified diastolic (congestive) heart failure (principal); Z95.3 Presence of xenogenic heart valve; Z51.81 Encounter for therapeutic drug level monitoring; Z79.01 Long term (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
CPT/HCPCS: 85610; 93306; 99211

== ENCOUNTER → 2022-10-15 09:39 | Outpatient (BNVA) | payer MEDICARE, MEDICAID, SELFPAY | PROVIDERS: PCP Internal Medicine; Visit Provider Internal Medicine | DX: Z95.2 Presence of prosthetic heart valve (principal); Z79.01 Long term (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; Z51.81 Encounter for therapeutic drug level monitoring | CPT/HCPCS: 85610; 99211 ==

== ENCOUNTER → 2022-10-19 08:51 | Outpatient (BNVA) | payer MEDICARE, MEDICAID, SELFPAY | PROVIDERS: PCP Internal Medicine; Visit Provider Internal Medicine | DX: Z95.2 Presence of prosthetic heart valve (principal); Z79.01 Long term (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; Z51.81 Encounter for therapeutic drug level monitoring | CPT/HCPCS: 85610; 99211 ==

== ENCOUNTER → 2022-10-24 09:44 | Outpatient (BNVA) | payer MEDICARE, MEDICAID, SELFPAY | PROVIDERS: PCP Internal Medicine; Visit Provider Internal Medicine | DX: Z95.2 Presence of prosthetic heart valve (principal); Z79.01 Long term (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; Z51.81 Encounter for therapeutic drug level monitoring | CPT/HCPCS: 85610; 99211 ==

== ENCOUNTER 2022-10-27 15:20 | Inpatient (IN) | payer MEDICARE, MEDICAID, SELFPAY ==
[2022-10-27] VITALS (7 sets, daily range): BP systolic 97–117; BP diastolic 45–63; PULSE 74–100; RESP 16–29; TEMP 36.7–37.8; O2SAT 76–96; BMI 26.5; BMI 28.6
--- NOTE | ~2022-10-27 | XR_ITS ---
EXAMINATION: XR chest 1V CLINICAL INFORMATION: Reason for Exam sob COMPARISON: None TECHNIQUE: XR chest 1V Tubes and lines: None Lungs and pleura: Bilateral diffuse pulmonary opacification concerning for interstitial pneumonitis or interstitial edema unchanged. Heart and mediastinum: Sternotomy wires are stable.. Bones/soft tissue: Skeletal structures included are normal for patient's age. XR/XR chest 1V IMPRESSION: * Bilateral diffuse pulmonary opacification concerning for interstitial pneumonitis or interstitial edema unchanged. * No pleural effusion.
--- NOTE | ~2022-10-27 | XR_ITS ---
EXAMINATION: XR CHEST CLINICAL INFORMATION: Pneumonia COMPARISON: CTA chest 10/27/2022, chest radiographs 10/27/2022, 09/27/2022 TECHNIQUE: Portable upright AP view of the chest was obtained. FINDINGS: Coarsening bronchiolar markings in scattered subtle groundglass opacities are moderately decreased from prior portable chest 10/27/2022. No lobar or segmental airspace consolidation or effusion. Postsurgical changes again seen heart and sternum. The cardiac and hilar and mediastinal contours are unremarkable. There is calcific tendinosis adjacent to left shoulder greater tuberosity. XR/XR chest 1V IMPRESSION: 1. Coarsening bronchiolar markings and scattered groundglass opacities moderately decreased from prior portable chest 10/27/2022. 2. No lobar or segmental airspace consolidation or effusion.
--- NOTE | ~2022-10-27 | CT_ITS ---
EXAMINATION: CT ANGIOGRAM OF THE CHEST WITH AND WITHOUT CONTRAST (CT PULMONARY ANGIOGRAM FOR PE) CLINICAL INFORMATION: Reason for Exam hypoxia. cough COMPARISON: Chest CT 08/27/2022 TECHNIQUE: Prior to contrast administration, noncontrast localization images were obtained. Subsequently, multidetector volumetric imaging was performed from the thoracic inlet to below the diaphragms following the administration of 65 mL Omnipaque 350 intravenous contrast. No contrast reaction reported Sagittal, coronal, and MIP oblique sagittal reformatted images were obtained on the CT workstation, uploaded to PACS, and reviewed. This CT examination was performed using dose optimization techniques as appropriate, variously including the following: *Automated exposure control *Adjustment of mA and/or kV according to patient size (this includes techniques or standardized protocols for targeted exams where dose is matched to indication/reason for exam; i.e. extremities or head) *Use of iterative reconstruction technique Total exam dose-length product 295 mGy-cm FINDINGS: QUALITY OF STUDY/CONTRAST BOLUS: Slightly suboptimal PULMONARY ARTERIES: No central pulmonary embolus. No segmental pulmonary embolus identified. Slightly limited assessment for detecting smaller segmental pulmonary emboli due to suboptimal contrast opacification. Central pulmonary trunk is dilated measuring 4.1 cm in diameter. THORACIC AORTA: No aneurysm or dissection. LUNG: Extensive groundglass opacities throughout both lungs. No dense airspace consolidation. No appreciable suspicious appearing pulmonary nodules. A small calcified granuloma in the inferior right lung base is noted. No pneumothorax. The central through segmental airways are clear. No bronchiectasis. PLEURA: No pleural effusion. Fat-containing right-sided Bochdalek hernia noted. MEDIASTINUM: Heart is prominent size. Status post post TAVR, mitral and tricuspid valve replacements. Postsurgical changes are calcification about the left atrium. Extensive mediastinal lymphadenopathy in the lower paratracheal mukul chains, lower prevascular space, AP window and subcarinal mukul regions. Mildly enlarged hilar lymph nodes as well. No evidence of septal bowing or right heart strain. CHEST WALL/AXILLA: No axillary or internal mammary lymphadenopathy. OSSEOUS STRUCTURES: No acute or suspicious osseous abnormality. Multilevel degenerative disc disease most advanced in the mid to lower thoracic spine. Status post median sternotomy with intact sternal wires. UPPER ABDOMEN: Low-density bilateral adrenal nodules left greater than right, unchanged. Status post prior sleeve gastrectomy. No reflux of contrast into the hepatic veins to suggest elevated right heart pressures. CT/CT angio chest PE protocol IMPRESSION: 1. No evidence of central or segmental pulmonary embolus. Assessment for smaller segmental pulmonary emboli slightly suboptimal. 2. Extensive groundglass opacities throughout both lungs, favor inflammatory/infectious etiology. 3. Extensive mediastinal and hilar lymphadenopathy, nonspecific and presumably reactive. 4. Unchanged low-density bilateral adrenal nodules, likely adenomas. 5. Enlarged central pulmonary trunk, suggesting pulmonary arterial hypertension. 6. Prior cardiac valvular surgery/procedures. VTE: Negative, slight limitation as above
--- NOTE | 2022-10-27 15:34 | ECG_ITS ---
Test Reason : SOB Blood Pressure : / mmHG Vent. Rate : 097 BPM Atrial Rate : 097 BPM P-R Int : 110 ms QRS Dur : 102 ms QT Int : 320 ms P-R-T Axes : 076 033 195 degrees QTc Int : 406 ms Sinus rhythm with short DC Left ventricular hypertrophy with repolarization abnormality ( [place] product , Romhilt-Ortiz ) Abnormal ECG When compared with ECG of 27-SEP-2022 11:51, T wave inversion less evident in Inferior leads T wave inversion less evident in Anterior leads Referred By: Chasidy Hatfield Electronically Signed By:JUMANA MOSES MD
--- NOTE | 2022-10-27 15:36 | ED_ITS ---
HPI - SOB/Dyspnea General Chief Complaint: Dyspnea <CAITLIN Storey Last Filed: 10/27/22 17:47> Stated Complaint: diff breathing <CAITLIN Storey Last Filed: 10/27/22 17:47> Time Seen by Provider: 10/27/22 15:29 <CAITLIN Storey Last Filed: 10/27/22 17:47> Source: patient and EMS <CAITLIN Storey Last Filed: 10/27/22 17:47> Mode of arrival: EMS <CAITLIN Storey Last Filed: 10/27/22 17:47> History of Present Illness HPI Narrative: 67-year-old female past medical history of diastolic heart failure, mitral and aortic valve replacement on Coumadin, chronic hypoxemic respiratory failure on 4L supplemental O2, history of amiodarone pulmonary and renal toxicity, hypothyroid, mood disorder, COPD, chronic normocytic anemia, presenting to the ED via EMS complaining productive cough and worsening SOB x3 days. Reports O2 dropping into 60s with minimal movement/position changes. Denies chest pain, fever, chills, vomiting nausea/vomiting, pedal edema, recent travel, sick contacts <CAITLIN Storey Last Filed: 10/27/22 17:47> MD elicited complaint: cough <CAITLIN Storey Last Filed: 10/27/22 17:47> Pertinent past history: COPD <CAITLIN Storey Last Filed: 10/27/22 17:47> Onset (ago): day(s) <CAITLIN Storey Last Filed: 10/27/22 17:47> Related Data Home Medications: Home Medications Medication Instructions Recorded Confirmed levothyroxine 25 mcg tablet 25 mcg PO DAILY@0600 09/01/20 10/27/22 atorvastatin 20 mg tablet 20 mg PO DAILY 04/26/21 10/27/22 ferrous sulfate 325 mg (65 mg 325 mg PO DAILY 04/26/21 10/27/22 iron) tablet sertraline 100 mg tablet 200 mg PO DAILY 04/26/21 10/27/22 albuterol sulfate 90 mcg/actuation 1 puff inhalation Q4H PRN Wheezing 09/24/22 10/27/22 aerosol inhaler (Ventolin HFA) fluticasone fur. 200 mcg-umeclid 1 puff inhalation DAILY 10/27/22 10/27/22 62.5 mcg-vilant 25 mcg inhalat.powder (Trelegy Ellipta) warfarin 2.5 mg tablet 5 mg PO SUMOTUWEFRSA@1800 10/27/22 10/27/22 warfarin 7.5 mg tablet 7.5 mg PO TH@1800 10/27/22 10/27/22 Previous Rx's Medication Instructions Recorded diltiazem HCl 120 mg capsule,24 120 mg PO DAILY #30 caps 10/18/22 hr,extended release folic acid 1 mg tablet 1 mg PO DAILY #90 tabs 10/24/22 furosemide 40 mg tablet 40 mg PO DAILY #90 tabs 10/24/22 <CAITLIN Storey Last Filed: 10/27/22 17:47> Allergies/Adverse Reactions: Allergies Allergy/AdvReac Type Severity Reaction Status Date / Time amiodarone Allergy Intermediate Swelling Verified 10/24/22 09:58 <CAITLIN Storey Last Filed: 10/27/22 17:47> Review of Systems Review of Systems: Constitutional: No Fever, No Chills, No Fatigue, No Malaise ENT/Mouth: No Ear Pain, No Nasal Congestion, No sore throat, No Rhinorrhea, No Swallowing Difficulty Eyes: No Eye Pain, No Swelling, No Redness, No Vision Changes Cardiovascular: No Chest Pain, + SOB, + Dyspnea on Exertion, No Orthopnea, No Edema, No Palpitations Respiratory: + Cough, + Sputum, No Wheezing, No Smoke Exposure, + Dyspnea Gastrointestinal: No Nausea, No Vomiting, No Diarrhea, No Constipation, No Abdominal pain Genitourinary: No Dysuria, No Urinary Frequency, No Hematuria, No Flank Pain, No Urinary Flow Changes, No Hesitancy Musculoskeletal: No joint pain, No Myalgias, No Joint Swelling Skin: No Skin Lesions, No rash Neuro: No Weakness, No Dizziness, No Headache <CAITLIN Storey Last Filed: 10/27/22 17:47> Yes all other systems are reviewed and are negative <CAITLIN Storey Last Filed: 10/27/22 17:47> Constitutional: Constitutional: Reports as per HPI <CAITLIN Storey - Last Filed: 10/27/22 17:47> [facility] Past Medical History Attestation statement: The following information was validated with the patient. <CAITLIN Storey - Last Filed: 10/27/22 17:47> Medical History: Medical History (HFpEF) heart failure with preserved ejection fraction Abnormal EKG Anemia Aortic stenosis Atrial flutter CHF (congestive heart failure) COPD (chronic obstructive pulmonary disease) COPD (chronic obstructive pulmonary disease) Current use of anticoagulant therapy Exercise hypoxemia Hypoxia Interstitial lung disease Obesity Paroxysmal atrial fibrillation Persistent atrial fibrillation <CAITLIN Storey - Last Filed: 10/27/22 17:47> Surgical History: Surgical History History of sleeve gastrectomy (~2017) Hx of section Hx of mitral valve replacement (~2004) Hx of transesophageal echocardiography (SHELIA) for monitoring (~2015) S/P MVR (mitral valve replacement) <CAITLIN Storey - Last Filed: 10/27/22 17:47> Family History Family History: Family History Father No problems noted. Mother CVD (cardiovascular disease) <CAITLIN Storey - Last Filed: 10/27/22 17:47> Social History Social History: Social History Household Members: Family Housing: House Do you presently have visiting nurse or other home services: No Alcohol intake: never Patient Tobacco Use Status: Former Tobacco user Tobacco use type: Cigarette Smoked in Last 30 Days: No Use of substances other than those prescribed or required for medical reasons: No Advance Directives: Yes Advance Directives on File: Yes Advance Directives Date on File: 08/28/22 service: No Current occupational status: disabled <CAITLIN Storey - Last Filed: 10/27/22 17:47> Physical Exam Vital Signs: Vital Signs: Last Vital Signs Temp 99.7 F 10/27/22 18:08 Pulse 88 10/27/22 18:08 Resp 27 H 10/27/22 18:08 BP 117/56 L 10/27/22 18:08 Pulse Ox 95 10/27/22 18:08 O2 Del Method 10/27/22 18:08 O2 Flow Rate 4 10/27/22 18:08 Oxygen Flow Rate 4 10/27/22 15:32 BMI result Body Mass Index 26.5 <CAITLIN Storey - Last Filed: 10/27/22 17:47> Vital Signs: Last Vital Signs Temp 99.7 F 10/27/22 18:08 Pulse 88 10/27/22 18:08 Resp 27 H 10/27/22 18:08 BP 117/56 L 10/27/22 18:08 Pulse Ox 95 10/27/22 18:08 O2 Del Method 10/27/22 18:08 O2 Flow Rate 4 10/27/22 18:08 Oxygen Flow Rate 4 10/27/22 15:32 BMI result Body Mass Index 26.5 <Sylvia Klein NC - Last Filed: 10/27/22 18:47> Const: General: cooperative <CAITLIN Storey - Last Filed: 10/27/22 17:47> Orientation/consciousness: patient oriented x3 <CAITLIN Storey - Last Filed: 10/27/22 17:47> Limitations: no limitations <CAITLIN Storey - Last Filed: 10/27/22 17:47> HEENT: Head: Yes normal to inspection and Yes atraumatic <CAITLIN Storey - Last Filed: 10/27/22 17:47> Ears: hearing grossly normal bilaterally <CAITLIN Storey - Last Filed: 10/27/22 17:47> General nose exam: Normal external nose present <CAITLIN Storey - Last Filed: 10/27/22 17:47> Face and sinus: Yes normal facial exam <CAITLIN Storey - Last Filed: 10/27/22 17:47> Eyes: General: appearance normal, both eyes and all related structures <CAITLIN Storey - Last Filed: 10/27/22 17:47> Pupils: Equal, round and reactive pupils present <CAITLIN Storey - Last Filed: 10/27/22 17:47> EOM: EOMs intact bilaterally <Chasidy Pouldct PA - Last Filed: 10/27/22 17:47> Neck: Neck: Yes normal visual inspection and Yes no meningeal signs <Chasidy Pouliot PA - Last Filed: 10/27/22 17:47> Resp: Effort & Inspection: Actively coughing, labored, no respiratory distress and tachypneic <Chasidy Pouldct, PA - Last Filed: 10/27/22 17:47> Auscultation: wheezes expiratory wheezes (mild) <Chasidy Pouliot, PA - Last Filed: 10/27/22 17:47> Cardio: Rate: regular rate <Chasidy Pouliot, PA - Last Filed: 10/27/22 17:47> Heart sounds: S1 normal heart sound present and S2 normal heart sound present <Chasidy Pouliot, PA - Last Filed: 10/27/22 17:47> GI: Inspection: Yes normal to inspection <Chasidy Pouldct PA - Last Filed: 10/27/22 17:47> Palpation (GI): Soft to palpation, nontender, no guarding and not rigid <Chasidy Pouliot PA - Last Filed: 10/27/22 17:47> Skin: Rashes: no rashes <Chasidy Pouldct PA - Last Filed: 10/27/22 17:47> Wounds: no wounds <Chasidy Pouldct PA - Last Filed: 10/27/22 17:47> Neuro: General: patient oriented x3, tone normal and no meningeal signs <Chasidy Pouldct PA - Last Filed: 10/27/22 17:47> Cranial nerves: Yes Equal, round and reactive pupils present <Chasidy Pouliot PA - Last Filed: 10/27/22 17:47> Gait exam (Neuro): Normal gait present <Chasidy Pouldct PA - Last Filed: 10/27/22 17:47> Extrem: General: Yes normal to inspection, Yes no pedal edema and Yes no calf tenderness <Chasidy Poullore PA - Last Filed: 10/27/22 17:47> Course Course Course Narrative: -1703--no leukocytosis. H&H stable. Troponin 16.7 > will obtain 3 hour repeat -influenza A positive > Tamiflu given XR chest 1V IMPRESSION: *? Bilateral diffuse pulmonary opacification concerning for interstitial pneumonitis or interstitial edema unchanged. ? *? No pleural effusion. -INR subtherapeutic at 1.8 >1800-- ED care transferred to [facility] pending CTA and admission <CAITLIN Storey - Last Filed: 10/27/22 17:47> Reevaluation(s) Reevaluation #1: CTA negative for PE. Extensive ground-glass opacities were noted. Will admit patient to the hospital for further care. Will discuss with the admitting hospitalist whether they would like heparin until INR is therapeutic at 2.5 for her valve. 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 <CAITLIN Ordoñez - Last Filed: 10/27/22 18:47> Medications Administered Discontinued Medications Generic Name Dose Route Start Last Admin Trade Name Freq PRN Reason Stop Dose Admin Acetaminophen 975 mg 10/27/22 17:40 10/27/22 17:45 Acetaminophen 325 Mg Tablet PO 10/27/22 17:41 975 mg ONCE ONE Administration Albuterol Sulfate 5 mg/ 7.5 mg 10/27/22 15:33 10/27/22 15:42 Albuterol Sulfate 2.5 mg INHALE 10/27/22 15:34 7.5 mg ONCE ONE Administration Albuterol/Ipratropium 3 ml 10/27/22 15:33 10/27/22 15:43 Albuterol/Iprat 2.5/0.5mg 3 Ml Ampul.Neb INHALE 10/27/22 15:34 3 ml ONCE ONE Administration Benzonatate 100 mg 10/27/22 15:33 10/27/22 15:40 Benzonatate 100 Mg Capsule PO 10/27/22 15:34 100 mg ONCE ONE Administration Hydrocodone Bit/Homatropine Methylb 5 ml 10/27/22 15:33 10/27/22 15:40 Hydrocodone/Homat 5/1.5/5 Ml 5 Ml Syrup PO 10/27/22 15:34 5 ml ONCE ONE Administration Magnesium Sulfate 2 gm in 50 mls @ 25 mls/hr 10/27/22 15:33 10/27/22 15:55 Magnesium Sulfate/H2o IV 10/27/22 17:32 Infused ONCE ONE Infusion Ceftriaxone Sodium 1 gm/ 50 mls @ 100 mls/hr 10/27/22 15:51 10/27/22 16:49 Sodium Chloride IV 10/27/22 16:20 Infused ONCE ONE Infusion Iohexol 100 ml 10/27/22 17:50 10/27/22 17:50 Iohexol 350 Mg/Ml 100 Ml Infus..Btl IV 10/27/22 17:51 65 ml ONCE ONE Administration Methylprednisolone Sodium Succinate 125 mg 10/27/22 15:33 10/27/22 15:40 Methylprednisolone Sod Succ 125 Mg/2 Ml Vial IVPUSH 10/27/22 15:34 125 mg ONCE ONE Administration Oseltamivir Phosphate 75 mg 10/27/22 17:40 10/27/22 17:45 Oseltamivir Phosphate 75 Mg Capsule PO 10/27/22 17:41 75 mg ONCE ONE Administration <CAITLIN Storey - Last Filed: 10/27/22 17:47> Medications Administered Discontinued Medications Generic Name Dose Route Start Last Admin Trade Name Keith PRN Reason Stop Dose Admin Acetaminophen 975 mg 10/27/22 17:40 10/27/22 17:45 Acetaminophen 325 Mg Tablet PO 10/27/22 17:41 975 mg ONCE ONE Administration Albuterol Sulfate 5 mg/ 7.5 mg 10/27/22 15:33 10/27/22 15:42 Albuterol Sulfate 2.5 mg INHALE 10/27/22 15:34 7.5 mg ONCE ONE Administration Albuterol/Ipratropium 3 ml 10/27/22 15:33 10/27/22 15:43 Albuterol/Iprat 2.5/0.5mg 3 Ml Ampul.Neb INHALE 10/27/22 15:34 3 ml ONCE ONE Administration Benzonatate 100 mg 10/27/22 15:33 10/27/22 15:40 Benzonatate 100 Mg Capsule PO 10/27/22 15:34 100 mg ONCE ONE Administration Hydrocodone Bit/Homatropine Methylb 5 ml 10/27/22 15:33 10/27/22 15:40 Hydrocodone/Homat 5/1.5/5 Ml 5 Ml Syrup PO 10/27/22 15:34 5 ml ONCE ONE Administration Magnesium Sulfate 2 gm in 50 mls @ 25 mls/hr 10/27/22 15:33 10/27/22 15:55 Magnesium Sulfate/H2o IV 10/27/22 17:32 Infused ONCE ONE Infusion Ceftriaxone Sodium 1 gm/ 50 mls @ 100 mls/hr 10/27/22 15:51 10/27/22 16:49 Sodium Chloride IV 10/27/22 16:20 Infused ONCE ONE Infusion Iohexol 100 ml 10/27/22 17:50 10/27/22 17:50 Iohexol 350 Mg/Ml 100 Ml Infus..Btl IV 10/27/22 17:51 65 ml ONCE ONE Administration Methylprednisolone Sodium Succinate 125 mg 10/27/22 15:33 10/27/22 15:40 Methylprednisolone Sod Succ 125 Mg/2 Ml Vial IVPUSH 10/27/22 15:34 125 mg ONCE ONE Administration Oseltamivir Phosphate 75 mg 10/27/22 17:40 10/27/22 17:45 Oseltamivir Phosphate 75 Mg Capsule PO 10/27/22 17:41 75 mg ONCE ONE Administration <CAITLIN Ordoñez - Last Filed: 10/27/22 18:47> Medical Decision Making Medical Decision Making MDM Narrative: 67-year-old female past medical history of diastolic heart failure, mitral and aortic valve replacement on Coumadin, chronic hypoxemic respiratory failure on 4L supplemental O2, history of amiodarone pulmonary and renal toxicity, hypothyroid, mood disorder, COPD, chronic normocytic anemia, presenting to the ED via EMS complaining productive cough and worsening SOB x3 days. On exam tachypneic, in respiratory distress, when moved from the EMS stretcher desatted to 76% on baseline 4L NC > improved to 98% on OxyMask. Lungs w/ mild end expiratory wheeze, good air movement, no pedal edema. Concern for COPD exacerbation vs PE vs atypical ACS vs pneumonia. Low suspicion for severe sepsis is likely viral etiology Plan: EKG, labs, COVID-19/influenza/RSV testing, CXR, CTA, DuoNeb, Solu-Medrol, magnesium, admission <CAITLIN Storey - Last Filed: 10/27/22 17:47> Differential Diagnosis Differential Diagnoses: The differential diagnosis associated with the presentation includes <CAITLIN Storey Last Filed: 10/27/22 17:47> as above <CAITLIN Storey - Last Filed: 10/27/22 17:47> Admission/Observation Consideration of admission/observation: Escalation of care including admission/observation considered <CATILIN Storey - Last Filed: 10/27/22 17:47> Consult Healthcare Provider Management of the patient was discussed with: Hospitalist <CAITLIN Storey - Last Filed: 10/27/22 17:47> Lab Data MDM Lab Attestation statement: I reviewed the patient's lab results. <CAITLIN Storey - Last Filed: 10/27/22 17:47> Result Diagrams: : 10/27/22 15:54 10/27/22 15:54 <CAITLIN Storey - Last Filed: 10/27/22 17:47> Labs: Lab Results 10/27/22 10/27/22 10/27/22 Range/Units 15:45 15:54 15:54 WBC 7.4 (4.8-10.8) X10*3/uL RBC 3.80 L (4.20-5.50) X10*6/uL Hgb 10.1 L (12.0-16.0) g/dl Hct 32.5 L (37.0-47.0) % MCV 85.5 (80.0-98.0) fL MCH 26.6 L (27.0-33.0) pg MCHC 31.1 (31.0-35.0) g/dl RDW 16.9 H (11.0-16.0) % Plt Count 154 L D (160-400) X10*3/uL MPV Not Reportable Immature Gran % (Auto) 0.4 (0.0-0.4) % Neut % (Auto) 84.8 H (45-73) % Lymph % (Auto) 5.7 L (20-40) % [place] % (Auto) 8.4 (2-11) % Eos % (Auto) 0.3 (0-4) % Baso % (Auto) 0.4 (0-2) % Lymph # (Auto) 0.4 L (1.2-4.9) X10*3/uL [place] # (Auto) 0.6 (0.1-1.2) X10*3/uL Eos # (Auto) 0.0 (0.0-0.4) X10*3/uL Baso # (Auto) 0.0 (0.0-0.2) X10*3/uL Abs Immat Gran (auto) 0.03 (0.00-0.03) X10*3/uL Absolute Neuts (auto) 6.3 (2.0-8.3) x10*3/uL Absolute Nucleated RBC 0.000 (0.0-0.012) X10*3/uL Nucleated RBC % (auto) 0.0 (0.0-0.2) /100WBC PT 21.0 H (10.0-13.1) SEC INR 1.8 H (0.9-1.1) Sodium (135-145) mmol/L Potassium (3.3-5.1) mmol/L Chloride (96-108) mmol/L Carbon Dioxide (22-29) mmol/L Anion Gap (12-20) BUN (9-16) mg/dL Creatinine (0.5-1.4) mg/dL Estim Creat Clear Calc Estimated GFR Random Glucose (60-115) mg/dL Lactic Acid (0.5-2.0) mmol/L Calcium (8.4-10.2) mg/dL Magnesium (1.6-2.6) mg/dL Total Bilirubin (0.0-1.0) mg/dL Direct Bilirubin (0.0-0.5) mg/dL AST (5-31) U/L ALT (0-31) U/L Alkaline Phosphatase (39-117) U/L Troponin I High Sens (<3.5-17.0) ng/L Total Protein (6.5-8.0) g/dL Albumin (3.5-5.0) g/dL Influenza Type A (PCR) POSITIVE A (Negative) Influenza Type B (PCR) NEGATIVE (Negative) RSV RNA Qual (PCR) NEGATIVE (Negative) SARS-CoV-2 RNA (RT-PCR) NEGATIVE (Negative) 10/27/22 10/27/22 10/27/22 Range/Units 15:54 15:54 15:54 WBC (4.8-10.8) X10*3/uL RBC (4.20-5.50) X10*6/uL Hgb (12.0-16.0) g/dl Hct (37.0-47.0) % MCV (80.0-98.0) fL MCH (27.0-33.0) pg MCHC (31.0-35.0) g/dl RDW (11.0-16.0) % Plt Count (160-400) X10*3/uL MPV Immature Gran % (Auto) (0.0-0.4) % Neut % (Auto) (45-73) % Lymph % (Auto) (20-40) % [place] % (Auto) (2-11) % Eos % (Auto) (0-4) % Baso % (Auto) (0-2) % Lymph # (Auto) (1.2-4.9) X10*3/uL [place] # (Auto) (0.1-1.2) X10*3/uL Eos # (Auto) (0.0-0.4) X10*3/uL Baso # (Auto) (0.0-0.2) X10*3/uL Abs Immat Gran (auto) (0.00-0.03) X10*3/uL Absolute Neuts (auto) (2.0-8.3) x10*3/uL Absolute Nucleated RBC (0.0-0.012) X10*3/uL Nucleated RBC % (auto) (0.0-0.2) /100WBC PT (10.0-13.1) SEC INR (0.9-1.1) Sodium 136 (135-145) mmol/L Potassium 3.7 (3.3-5.1) mmol/L Chloride 102 (96-108) mmol/L Carbon Dioxide 25 (22-29) mmol/L Anion Gap 13 (12-20) BUN 12 (9-16) mg/dL Creatinine 0.71 (0.5-1.4) mg/dL Estim Creat Clear Calc 69.3 Estimated GFR > 60 Random Glucose 105 (60-115) mg/dL Lactic Acid 0.8 (0.5-2.0) mmol/L Calcium 8.6 (8.4-10.2) mg/dL Magnesium 1.9 (1.6-2.6) mg/dL Total Bilirubin 0.6 (0.0-1.0) mg/dL Direct Bilirubin 0.2 (0.0-0.5) mg/dL AST 31 (5-31) U/L ALT 10 (0-31) U/L Alkaline Phosphatase 99 (39-117) U/L Troponin I High Sens 16.7 D (<3.5-17.0) ng/L Total Protein 7.7 (6.5-8.0) g/dL Albumin 3.3 L (3.5-5.0) g/dL Influenza Type A (PCR) (Negative) Influenza Type B (PCR) (Negative) RSV RNA Qual (PCR) (Negative) SARS-CoV-2 RNA (RT-PCR) (Negative) <CAITLIN Storey - Last Filed: 10/27/22 17:47> Lab Results 10/27/22 10/27/22 10/27/22 Range/Units 15:45 15:54 15:54 WBC 7.4 (4.8-10.8) X10*3/uL RBC 3.80 L (4.20-5.50) X10*6/uL Hgb 10.1 L (12.0-16.0) g/dl Hct 32.5 L (37.0-47.0) % MCV 85.5 (80.0-98.0) fL MCH 26.6 L (27.0-33.0) pg MCHC 31.1 (31.0-35.0) g/dl RDW 16.9 H (11.0-16.0) % Plt Count 154 L D (160-400) X10*3/uL MPV Not Reportable Immature Gran % (Auto) 0.4 (0.0-0.4) % Neut % (Auto) 84.8 H (45-73) % Lymph % (Auto) 5.7 L (20-40) % [place] % (Auto) 8.4 (2-11) % Eos % (Auto) 0.3 (0-4) % Baso % (Auto) 0.4 (0-2) % Lymph # (Auto) 0.4 L (1.2-4.9) X10*3/uL [place] # (Auto) 0.6 (0.1-1.2) X10*3/uL Eos # (Auto) 0.0 (0.0-0.4) X10*3/uL Baso # (Auto) 0.0 (0.0-0.2) X10*3/uL Abs Immat Gran (auto) 0.03 (0.00-0.03) X10*3/uL Absolute Neuts (auto) 6.3 (2.0-8.3) x10*3/uL Absolute Nucleated RBC 0.000 (0.0-0.012) X10*3/uL Nucleated RBC % (auto) 0.0 (0.0-0.2) /100WBC PT 21.0 H (10.0-13.1) SEC INR 1.8 H (0.9-1.1) Sodium (135-145) mmol/L Potassium (3.3-5.1) mmol/L Chloride (96-108) mmol/L Carbon Dioxide (22-29) mmol/L Anion Gap (12-20) BUN (9-16) mg/dL Creatinine (0.5-1.4) mg/dL Estim Creat Clear Calc Estimated GFR Random Glucose (60-115) mg/dL Lactic Acid (0.5-2.0) mmol/L Calcium (8.4-10.2) mg/dL Magnesium (1.6-2.6) mg/dL Total Bilirubin (0.0-1.0) mg/dL Direct Bilirubin (0.0-0.5) mg/dL AST (5-31) U/L ALT (0-31) U/L Alkaline Phosphatase (39-117) U/L Troponin I High Sens (<3.5-17.0) ng/L Total Protein (6.5-8.0) g/dL Albumin (3.5-5.0) g/dL Influenza Type A (PCR) POSITIVE A (Negative) Influenza Type B (PCR) NEGATIVE (Negative) RSV RNA Qual (PCR) NEGATIVE (Negative) SARS-CoV-2 RNA (RT-PCR) NEGATIVE (Negative) 10/27/22 10/27/22 10/27/22 Range/Units 15:54 15:54 15:54 WBC (4.8-10.8) X10*3/uL RBC (4.20-5.50) X10*6/uL Hgb (12.0-16.0) g/dl Hct (37.0-47.0) % MCV (80.0-98.0) fL MCH (27.0-33.0) pg MCHC (31.0-35.0) g/dl RDW (11.0-16.0) % Plt Count (160-400) X10*3/uL MPV Immature Gran % (Auto) (0.0-0.4) % Neut % (Auto) (45-73) % Lymph % (Auto) (20-40) % [place] % (Auto) (2-11) % Eos % (Auto) (0-4) % Baso % (Auto) (0-2) % Lymph # (Auto) (1.2-4.9) X10*3/uL [place] # (Auto) (0.1-1.2) X10*3/uL Eos # (Auto) (0.0-0.4) X10*3/uL Baso # (Auto) (0.0-0.2) X10*3/uL Abs Immat Gran (auto) (0.00-0.03) X10*3/uL Absolute Neuts (auto) (2.0-8.3) x10*3/uL Absolute Nucleated RBC (0.0-0.012) X10*3/uL Nucleated RBC % (auto) (0.0-0.2) /100WBC PT (10.0-13.1) SEC INR (0.9-1.1) Sodium 136 (135-145) mmol/L Potassium 3.7 (3.3-5.1) mmol/L Chloride 102 (96-108) mmol/L Carbon Dioxide 25 (22-29) mmol/L Anion Gap 13 (12-20) BUN 12 (9-16) mg/dL Creatinine 0.71 (0.5-1.4) mg/dL Estim Creat Clear Calc 69.3 Estimated GFR > 60 Random Glucose 105 (60-115) mg/dL Lactic Acid 0.8 (0.5-2.0) mmol/L Calcium 8.6 (8.4-10.2) mg/dL Magnesium 1.9 (1.6-2.6) mg/dL Total Bilirubin 0.6 (0.0-1.0) mg/dL Direct Bilirubin 0.2 (0.0-0.5) mg/dL AST 31 (5-31) U/L ALT 10 (0-31) U/L Alkaline Phosphatase 99 (39-117) U/L Troponin I High Sens 16.7 D (<3.5-17.0) ng/L Total Protein 7.7 (6.5-8.0) g/dL Albumin 3.3 L (3.5-5.0) g/dL Influenza Type A (PCR) (Negative) Influenza Type B (PCR) (Negative) RSV RNA Qual (PCR) (Negative) SARS-CoV-2 RNA (RT-PCR) (Negative) <CAITLIN Ordoñez - Last Filed: 10/27/22 18:47> Independent Interpretation I performed an independent interpretation of an: EKG <CAITLIN Storey - Last Filed: 10/27/22 17:47> Interpretation: My interpretation of EKG is normal sinus rhythm at a rate of 97. With short NH interval. QTC 406. No STEMI. Nonischemic <CAITLIN Storey - Last Filed: 10/27/22 17:47> Radiology Impression Discussion of test interpretation with radiology: I have reviewed the radiologist's reading. <CAITLIN Storey Last Filed: 10/27/22 17:47> Independent Historian Clinical information obtained from an independent historian. History obtained from or confirmed by: EMS <CAITLIN Storey - Last Filed: 10/27/22 17:47> External Record Review External record reviewed: Inpatient record, Outpatient record and Prior outpatient labs <CAITLIN Storey - Last Filed: 10/27/22 17:47> Critical Care Time Critical Care Time Critical Care Time: Yes <CAITLIN Storey Last Filed: 10/27/22 17:47> Total Critical Care Time: 45 <CAITLIN Storey Last Filed: 10/27/22 17:47> Attestation: I have personally provided critical care time exclusive of time spent on separately billable procedures. Time includes review of lab data, radiology results, discussion with consultants, and monitoring for potential decompensation. Intervention performed as documented. <CAITLIN Storey - Last Filed: 10/27/22 17:47> Discharge Plan Discharge Clinical Impression: Influenza A, Hypoxia <CAITLIN Storey - Last Filed: 10/27/22 17:47> Patient Disposition: Admitted As Inpatient <CAITLIN Storey - Last Filed: 10/27/22 17:47>
[2022-10-27] MEDS: Benzonatate 100 MG CAPSULE PO (15:40)
[2022-10-27] MEDS: methylPREDNISolone Sod Succ 125 MG/2 ML VIAL IVPUSH (15:40)
[2022-10-27] MEDS: HYDROcodone/Homat 5/1.5/5 ML 5 ML SYRUP PO (15:40)
[2022-10-27] MEDS: Magnesium Sulfate/H2O 2 GM/50 ML PIGGYBACK IV (15:40)
[2022-10-27] MEDS: Albuterol Sulfate 5 MG, Albuterol Sulfate (0.083%) 2.5 MG 7.5 MG INHALE (15:42)
[2022-10-27] MEDS: Albuterol/Iprat 2.5/0.5MG 3 ML AMPUL.NEB INHALE (15:43)
[2022-10-27 16:03] LABS: Eosinophils Percent Auto 0.3 % (0-4); Monocytes Absolute Auto 0.6 X10*3/uL (0.1-1.2); Red Cell Distribution Width 16.9 % (11.0-16.0); SCAN SMEAR FLAG 1
[2022-10-27 16:05] LABS: Basophils Percent Auto 0.4 % (0-2); Hematocrit 32.5 % (37.0-47.0); Hemoglobin 10.1 g/dl (12.0-16.0); Imm Gran Abs Auto 0.03 X10*3/uL (0.00-0.03); Imm Gran Pct Auto 0.4 % (0.0-0.4); Lymphocytes Absolute Auto 0.4 X10*3/uL (1.2-4.9); Lymphocytes Percent Auto 5.7 % (20-40); Mean Corpuscular HGB Conc 31.1 g/dl (31.0-35.0); Mean Corpuscular Hemoglobin 26.6 pg (27.0-33.0); Mean Corpuscular Volume 85.5 fL (80.0-98.0); Monocytes Percent Auto 8.4 % (2-11); Neutrophils Absolute Auto 6.3 x10*3/uL (2.0-8.3); Neutrophils Percent Auto 84.8 % (45-73); Platelet Count 154 X10*3/uL (160-400); White Blood Count 7.4 X10*3/uL (4.8-10.8)
[2022-10-27 16:10] LABS: PLT ABN DIST 1
[2022-10-27 16:11] LABS: MANUAL DIFF FLAG NO
[2022-10-27 16:12] LABS: INTERNATIONAL NORM RATIO 1.8 (0.9-1.1); Lactic Acid 0.8 mmol/L (0.5-2.0)
[2022-10-27 16:16] LABS: Alanine Aminotransferase 10 U/L (0-31); Albumin Level 3.3 g/dL (3.5-5.0); Alkaline Phosphatase 99 U/L (39-117); Anion Gap 13 (12-20); Aspartate Amino Transferase 31 U/L (5-31); Bilirubin Direct 0.2 mg/dL (0.0-0.5); Bilirubin Total 0.6 mg/dL (0.0-1.0); Blood Urea Nitrogen 12 mg/dL (9-16); Calcium 8.6 mg/dL (8.4-10.2); Carbon Dioxide 25 mmol/L (22-29); Chloride 102 mmol/L (96-108); Creatinine Clr Calc Pharmacy 69.3; Estimated Glomerular Filt Rate > 60; Glucose Random 105 mg/dL (60-115); Magnesium 1.9 mg/dL (1.6-2.6); Potassium 3.7 mmol/L (3.3-5.1); Sodium 136 mmol/L (135-145); Total Protein 7.7 g/dL (6.5-8.0)
[2022-10-27] MEDS: cefTRIAXone sodium 1 GM in 0.9 % Sodium Chloride 50 ML IV (16:19)
[2022-10-27 16:23] LABS: Troponin-I High Sensitivity 16.7 ng/L (<3.5-17.0)
--- OUTSIDE RECORDS SUMMARY | 2022-10-27 16:33 | XMS_ITS | Continuity of Care Document ---
:1955 Author Organization [facility] Address [address] [place] [id number]- Care Team Providers Name Role Phone Scout SAHNI, Tarik Reynoso Primary Care Physician Encounter [facility] Date(s): 09/13/22 - 10/13/[address] [id number] Attending Physician: Not on Staff, Attending MD Admitting Physician: Not on Staff, Admitting MD Referring Physician: Not on Staff, Referring MD Allergies, Adverse Reactions, Alerts Substance Reaction [...] virus vaccine, inactivated 09/26/10 Recorded SARS-CoV-2 mRNA ([id number]) vax 12/12/21 Recorde d SARS-CoV-2 (COVID-19) mRNA [...] DX:[place], [place] valve, Print [place] Number, ADS OPPT, [id number], Constant Indicator Start Date: 10/02/06 Stop Date: 08/02/08 Status: Ordereddiltiazem 120 mg/24 hours oral capsule, extended release 120 mg, 1, capsule, By Mouth, Daily, # 30 capsule, Refills 0, Tot. Refills 0, Maintenance, 09/13/22 13:43:00 EST, Route to Pharmacy Electronically, [facility]/pharmacy #[id number], Partial fill upon patient requestif the prescription is for a schedule II opioid d... Start Date: 09/13/22 Status: Orderedferrous sulfate 325 mg oral enteric coated tablet 325 mg, By Mouth, 3 times a day, Refills 0, Maintenance, 09/13/22 13:45:00 EST, Partial fill upon patient request if the prescription is for a schedule II opioid drug. Start Date: 09/13/22 Status: OrderedFlovent 110 mcg/inh inhalation aerosol with adapter 2, puffs, Inhalation, 2 times a day, 13, Gm, 6, 6, 07/10/07 15:36:47, Print [place] Number, [id number], Constant Indicator Start Date: 07/10/07 Status: Orderedlevothyroxine 0.025 mg oral tablet 1 tablet = 25 mcg, By Mouth, Daily, # 30 tablet, 0 Refills, Maintenance, 09/13/22 13:45:00 EST, Tablet, [id number], Partial fill upon patient request if [...] 0 Refills, Maintenance, 09/13/22 13:46:00 EST, Tablet, [id number], Partial fill upon patient request if the prescription is for a schedule II opioid drug., 165, cm, 09/13/22 8:27:00 EST, Height... Start Date: 09/13/22 Stop Date: 10/13/22 Status: Orderedtiotropium 2.5 mcg/inh inhalation aerosol 2 puffs, Inhalation, Daily, # 1 each, 0 Refills, Maintenance, 09/13/22 13:47:00 EST, Inhaler, [id number], Partial fill upon patient request if [...] Active failure hx Tobacco abuse Confirmed Active Patient Care team information Care Team PersonnelName: Alvaro GOLD, Linda Position: [facility] RN Member Role: Primary Care Nurse Name: Bebe Mendez RN Position: [facility] RN Member Role: Primary Care Nurse Name: Santino Green MD Position: [facility] Renal MD Member Role: Lifetime Consulting Physician Address: Address: [address] [place], [place] [address] [place] [address]- Name: Tarik Butterfield MD Position: [facility] Outreach Member Role: PCP Address: Address: [address] [place] [id number]- Name: Caro Chavez RN Position: [facility] RN Member Role: Primary Care Nurse Care Team Related PersonsName: JULIO CORDOVA Address: home [address] [place] [address] Name: HARMEET CORDOVA Address: home [address] [place] [address] Name: JODIE CORDOVA Address: home [address] [place] [address]
--- NOTE | 2022-10-27 16:53 | PHA.MEDREC ---
Pharmacy Consult ? Medication Reconciliation Pharmacy has completed the medication reconciliation.
[2022-10-27 16:59] LABS: Influenza A PCR POSITIVE (Negative); Influenza B PCR NEGATIVE (Negative); Resp Syncy Virus RNA Qual PCR NEGATIVE (Negative); SARS COV2 PCR INHOUSE NEGATIVE (Negative)
[2022-10-27] MEDS: Oseltamivir Phosphate 75 MG CAPSULE PO (17:45)
[2022-10-27] MEDS: Acetaminophen 325 MG TABLET 975 MG PO (17:45)
[2022-10-27] MEDS: iohexoL 350 MG/ML 100 ML INFUS..BTL IV (17:50)
--- NOTE | 2022-10-27 20:17 | P.HPHOSP_ITS ---
History of Present Illness Date of Service: 10/27/22 [facility] Medical History (HFpEF) heart failure with preserved ejection fraction Abnormal EKG Anemia Aortic stenosis Atrial flutter CHF (congestive heart failure) COPD (chronic obstructive pulmonary disease) COPD (chronic obstructive pulmonary disease) Current use of anticoagulant therapy Exercise hypoxemia Hypoxia Interstitial lung disease Obesity Paroxysmal atrial fibrillation Persistent atrial fibrillation Family History Father No problems noted. Mother CVD (cardiovascular disease) Surgical History History of sleeve gastrectomy (~2017) Hx of section Hx of mitral valve replacement (~2004) Hx of transesophageal echocardiography (SHELIA) for monitoring (~2015) S/P MVR (mitral valve replacement) Social History Household Members: Family Housing: House Do you presently have visiting nurse or other home services: No Alcohol intake: never Patient Tobacco Use Status: Former Tobacco user Tobacco use type: Cigarette Smoked in Last 30 Days: No Use of substances other than those prescribed or required for medical reasons: No Advance Directives: Yes Advance Directives on File: Yes Advance Directives Date on File: 08/28/22 service: No Current occupational status: disabled Meds Allergies Allergy/AdvReac Type Severity Reaction Status Date / Time amiodarone Allergy Intermediate Swelling Verified 10/24/22 09:58 Active Medications: Current Medications Heparin Sodium (Porcine) (Heparin Sodium,Porcine 5,000 Unit/Ml Vial) 2,800 unit 40 unit/kg (2800 unit) IVPUSH PROTOCOL BOLUS PRN; Protocol PRN Reason: 40 unit/kg - Heparin Protocol Heparin Sodium (Porcine) (Heparin Sodium,Porcine 5,000 Unit/Ml Vial) 5,700 unit 80 unit/kg (5700 unit) IVPUSH PROTOCOL BOLUS PRN; Protocol PRN Reason: 80 unit/kg - Heparin Protocol Heparin Sodium/Sodium Chloride (Heparin Sodium,Porcine/1/2ns) 25,000 unit in 250 mls @ 0 mls/hr IVCONT .Q0M LEONORA; Protocol Home Medications Medication Instructions Recorded Confirmed Last Taken Type levothyroxine 25 mcg tablet 25 mcg PO DAILY@0600 09/01/20 10/27/22 10/26/22 History atorvastatin 20 mg tablet 20 mg PO DAILY 04/26/21 10/27/22 10/26/22 History ferrous sulfate 325 mg (65 mg 325 mg PO DAILY 04/26/21 10/27/22 10/25/22 History iron) tablet sertraline 100 mg tablet 200 mg PO DAILY 04/26/21 10/27/22 10/26/22 History albuterol sulfate 90 mcg/actuation 1 puff inhalation Q4H PRN Wheezing 09/24/22 10/27/22 10/26/22 History aerosol inhaler (Ventolin HFA) fluticasone fur. 200 mcg-umeclid 1 puff inhalation DAILY 10/27/22 10/27/22 10/26/22 History 62.5 mcg-vilant 25 mcg inhalat.powder (Trelegy Ellipta) warfarin 2.5 mg tablet 5 mg PO SUMOTUWEFRSA@1800 10/27/22 10/27/22 10/26/22 History warfarin 7.5 mg tablet 7.5 mg PO TH@1800 10/27/22 10/27/22 10/26/22 History Physical Exam Vital Signs and Narrative: Vital Signs: Last Vital Signs Temp 99.7 F 10/27/22 18:08 Pulse 88 10/27/22 18:08 Resp 27 H 10/27/22 18:08 BP 117/56 L 10/27/22 18:08 Pulse Ox 95 10/27/22 18:08 O2 Del Method 10/27/22 18:08 O2 Flow Rate 4 10/27/22 18:08 Oxygen Flow Rate 4 10/27/22 15:32 BMI result Body Mass Index 28.6 Results Labs CBC and Chem 7: 10/27/22 15:54 10/27/22 15:54 Labs: Laboratory Results - last 24 hr 10/27/22 10/27/22 10/27/22 15:45 15:54 15:54 MCV 85.5 MCH 26.6 L MCHC 31.1 RDW 16.9 H Plt Count 154 L D MPV Not Reportable Immature Gran % (Auto) 0.4 Neut % (Auto) 84.8 H Lymph % (Auto) 5.7 L [place] % (Auto) 8.4 Eos % (Auto) 0.3 Baso % (Auto) 0.4 Lymph # (Auto) 0.4 L [place] # (Auto) 0.6 Eos # (Auto) 0.0 Baso # (Auto) 0.0 Abs Immat Gran (auto) 0.03 Absolute Neuts (auto) 6.3 Absolute Nucleated RBC 0.000 Nucleated RBC % (auto) 0.0 PT 21.0 H INR 1.8 H Anion Gap Estim Creat Clear Calc Estimated GFR Random Glucose Lactic Acid Calcium Magnesium Total Bilirubin Direct Bilirubin AST ALT Alkaline Phosphatase Troponin I High Sens Total Protein Albumin Influenza Type A (PCR) POSITIVE A Influenza Type B (PCR) NEGATIVE RSV RNA Qual (PCR) NEGATIVE SARS-CoV-2 RNA (RT-PCR) NEGATIVE 10/27/22 10/27/22 10/27/22 15:54 15:54 15:54 MCV MCH MCHC RDW Plt Count MPV Immature Gran % (Auto) Neut % (Auto) Lymph % (Auto) [place] % (Auto) Eos % (Auto) Baso % (Auto) Lymph # (Auto) [place] # (Auto) Eos # (Auto) Baso # (Auto) Abs Immat Gran (auto) Absolute Neuts (auto) Absolute Nucleated RBC Nucleated RBC % (auto) PT INR Anion Gap 13 Estim Creat Clear Calc 69.3 Estimated GFR > 60 Random Glucose 105 Lactic Acid 0.8 Calcium 8.6 Magnesium 1.9 Total Bilirubin 0.6 Direct Bilirubin 0.2 AST 31 ALT 10 Alkaline Phosphatase 99 Troponin I High Sens 16.7 D Total Protein 7.7 Albumin 3.3 L Influenza Type A (PCR) Influenza Type B (PCR) RSV RNA Qual (PCR) SARS-CoV-2 RNA (RT-PCR) Imaging Radiologist's Impressions: Impressions Chest X-Ray 10/27/22 16:15 IMPRESSION: * Bilateral diffuse pulmonary opacification concerning for interstitial pneumonitis or interstitial edema unchanged. * No pleural effusion. Chest CTA 10/27/22 18:00 IMPRESSION: 1. No evidence of central or segmental pulmonary embolus. Assessment for smaller segmental pulmonary emboli slightly suboptimal. 2. Extensive groundglass opacities throughout both lungs, favor inflammatory/infectious etiology. 3. Extensive mediastinal and hilar lymphadenopathy, nonspecific and presumably reactive. 4. Unchanged low-density bilateral adrenal nodules, likely adenomas. 5. Enlarged central pulmonary trunk, suggesting pulmonary arterial hypertension. 6. Prior cardiac valvular surgery/procedures. VTE: Negative, slight limitation as above Assessment and Plan Time Spent With Patient Time: Total time managing care of this patient today ____ minutes.
--- NOTE | 2022-10-27 21:00 | PM.IMHP ---
History of Present Illness Date of Service: 10/27/22 Attending physician on admission: Vivien Mcnamara Chief Complaint: SOB Pt is a 66-year-old female with PMH significant for COPD, diastolic heart failure, mitral and aortic wall replacement on Coumadin, chronic hypoxemic respiratory failure on 4L of O2 at home, h/o afib, h/o amiodarone pulmonary and renal toxicity, hypothyroidism, mood disorder, and chronic normocytic anemia who presents to the ED today after worsening SOB for the past 3-4 days. Pt states that her respiratory symptoms go all the way back to June when she was put on Amiodarone for AFib. Patient was not on oxygen at home at this time. Patient states that she went to [facility] hospitalized for respiratory distress for greater than 5 days and prescribed home oxygen then. He was ultimately diagnosed with amiodarone pulmonary and renal toxicity. Since then patient has been in an out of hospital, often for respiratory issues. For her current ED visit, patient has issues become increasingly short of breath with exertion for the past 3-4 days despite being on 4 L of O2 at home. She developed a productive cough 2 days ago. Patient denies chest pain/pressure, palpitations. No fever, chills, nausea, vomiting. In the ED patient was observed to have desatted to 76% O2 on 4L nasal cannula when moved from EMS stretcher to the bed. She was placed on an OxyMask which improved her O2 sat to 98%. The patient was initially tachypneic with low-grade fever of 100.0. Labs were significant for no leukocytosis, H and H of 10.1/32.5, and INR subtherapeutic at 1.8. Patient positive for influenza A. CT of chest showed no evidence of pulmonary emboli, but revealed extensive ground-glass opacities throughout both lung moura, favor inflammatory/infectious etiology. Patient be admitted to the hospital for acute on chronic hypoxic respiratory failure in the setting of influenza infection. Review of Systems Review of Systems: SOB x3-4 days Productive cough x2 days Generalized weakness and fatigue Denies chest pain/pressure, palpitations Yes all other systems are reviewed and are negative FOR[facility]LY [facility] Medical History (HFpEF) heart failure with preserved ejection fraction Abnormal EKG Anemia Aortic stenosis Atrial flutter CHF (congestive heart failure) COPD (chronic obstructive pulmonary disease) COPD (chronic obstructive pulmonary disease) Current use of anticoagulant therapy Exercise hypoxemia Hypoxia Interstitial lung disease Obesity Paroxysmal atrial fibrillation Persistent atrial fibrillation Family History Father No problems noted. Mother CVD (cardiovascular disease) Surgical History History of sleeve gastrectomy (~2017) Hx of section Hx of mitral valve replacement (~2004) Hx of transesophageal echocardiography (SHELIA) for monitoring (~2015) S/P MVR (mitral valve replacement) Social History Household Members: Family Housing: House Do you presently have visiting nurse or other home services: No Alcohol intake: never Patient Tobacco Use Status: Former Tobacco user Tobacco use type: Cigarette Advance Directives Date on File: 08/28/22 service: No Current occupational status: disabled Meds Allergies Allergy/AdvReac Type Severity Reaction Status Date / Time amiodarone Allergy Intermediate Swelling Verified 10/24/22 09:58 Active Medications: Current Medications Heparin Sodium (Porcine) (Heparin Sodium,Porcine 5,000 Unit/Ml Vial) 2,800 unit 40 unit/kg (2800 unit) IVPUSH PROTOCOL BOLUS PRN; Protocol PRN Reason: 40 unit/kg - Heparin Protocol Heparin Sodium (Porcine) (Heparin Sodium,Porcine 5,000 Unit/Ml Vial) 5,700 unit 80 unit/kg (5700 unit) IVPUSH PROTOCOL BOLUS PRN; Protocol PRN Reason: 80 unit/kg - Heparin Protocol Heparin Sodium/Sodium Chloride (Heparin Sodium,Porcine/1/2ns) 25,000 unit in 250 mls @ 0 mls/hr IVCONT .Q0M LEONORA; Protocol Home Medications Medication Instructions Recorded Confirmed Last Taken Type levothyroxine 25 mcg tablet 25 mcg PO DAILY@0600 09/01/20 10/27/22 10/26/22 History atorvastatin 20 mg tablet 20 mg PO DAILY 04/26/21 10/27/22 10/26/22 History ferrous sulfate 325 mg (65 mg 325 mg PO DAILY 04/26/21 10/27/22 10/25/22 History iron) tablet sertraline 100 mg tablet 200 mg PO DAILY 04/26/21 10/27/2210/26/22 History albuterol sulfate 90 mcg/actuation 1 puff inhalation Q4H PRN Wheezing 09/24/22 10/27/22 10/26/22 History aerosol inhaler (Ventolin HFA) fluticasone fur. 200 mcg-umeclid 1 puff inhalation DAILY 10/27/22 10/27/22 10/26/22 History 62.5 mcg-vilant 25 mcg inhalat.powder (Trelegy Ellipta) warfarin 2.5 mg tablet 5 mg PO SUMOTUWEFRSA@1800 10/27/22 10/27/22 10/26/22 History warfarin 7.5 mg tablet 7.5 mg PO TH@1800 10/27/22 10/27/22 10/26/22 History Physical Exam Vital Signs and Narrative: Vital Signs: Last Vital Signs Temp 99.7 F 10/27/22 18:08 Pulse 88 10/27/22 18:08 Resp 27 H 10/27/22 18:08 BP 117/56 L 10/27/22 18:08 Pulse Ox 95 10/27/22 18:08 O2 Del Method 10/27/22 18:08 O2 Flow Rate 4 10/27/22 18:08 Oxygen Flow Rate 4 10/27/22 15:32 BMI result Body Mass Index 28.6 Constitutional: Pt looking uncomfortable. Alert, in no acute distress. Mental Status: Oriented to person, place and time. Eyes: Pupils are equal, round, and reactive to light. Ear, Nose, and Throat: Oropharynx clear, mucous membranes moist. Ears and nose without deformities. Trachea midline. Respiratory: Coughing noted. Diffuse expiratory wheezes. Cardiovascular: S1, S2 regular. No murmurs, rubs, or gallops. Gastrointestinal: Abdomen soft, non-tender, non-distended. NOrmal bowel sounds. Neurologic: Cranial nerves II-XI are grossly intact. NO focal neurological deficits. Moves all extremities spontaneously. Skin: No rashes of lesions. Musculoskeletal: No cyanosis or clubbing. Extremities: No edema. Psychiatric: Normal mood and affect. Results Labs 10/29/22 05:41 11/02/22 09:13 Labs: Laboratory Results - last 24 hr 10/27/22 10/27/22 10/27/22 15:45 15:54 15:54 MCV 85.5 MCH 26.6 L MCHC 31.1 RDW 16.9 H Plt Count 154 L D MPV Not Reportable Immature Gran % (Auto) 0.4 Neut % (Auto) 84.8 H Lymph % (Auto) 5.7 L [place] % (Auto) 8.4 Eos % (Auto) 0.3 Baso % (Auto) 0.4 Lymph # (Auto) 0.4 L [place] # (Auto) 0.6 Eos # (Auto) 0.0 Baso # (Auto) 0.0 Abs Immat Gran (auto) 0.03 Absolute Neuts (auto) 6.3 Absolute Nucleated RBC 0.000 Nucleated RBC % (auto) 0.0 PT 21.0 H INR 1.8 H Anion Gap Estim Creat Clear Calc Estimated GFR Random Glucose Lactic Acid Calcium Magnesium Total Bilirubin Direct Bilirubin AST ALT Alkaline Phosphatase Troponin I High Sens Total Protein Albumin Influenza Type A (PCR) POSITIVE A Influenza Type B (PCR) NEGATIVE RSV RNA Qual (PCR) NEGATIVE SARS-CoV-2 RNA (RT-PCR) NEGATIVE 10/27/22 10/27/22 10/27/22 15:54 15:54 15:54 MCV MCH MCHC RDW Plt Count MPV Immature Gran % (Auto) Neut % (Auto) Lymph % (Auto) [place] % (Auto) Eos % (Auto) Baso % (Auto) Lymph # (Auto) [place] # (Auto) Eos # (Auto) Baso # (Auto) Abs Immat Gran (auto) Absolute Neuts (auto) Absolute Nucleated RBC Nucleated RBC % (auto) PT INR Anion Gap 13 Estim Creat Clear Calc 69.3 Estimated GFR > 60 Random Glucose 105 Lactic Acid 0.8 Calcium 8.6 Magnesium 1.9 Total Bilirubin 0.6 Direct Bilirubin 0.2 AST 31 ALT 10 Alkaline Phosphatase 99 Troponin I High Sens 16.7 D Total Protein 7.7 Albumin 3.3 L Influenza Type A (PCR) Influenza Type B (PCR) RSV RNA Qual (PCR) SARS-CoV-2 RNA (RT-PCR) Imaging Radiologist's Impressions: Impressions Chest X-Ray 10/27/22 16:15 IMPRESSION: * Bilateral diffuse pulmonary opacification concerning for interstitial pneumonitis or interstitial edema unchanged. * No pleural effusion. Chest CTA 10/27/22 18:00 IMPRESSION: 1. No evidence of central or segmental pulmonary embolus. Assessment for smaller segmental pulmonary emboli slightly suboptimal. 2. Extensive groundglass opacities throughout both lungs, favor inflammatory/infectious etiology. 3. Extensive mediastinal and hilar lymphadenopathy, nonspecific and presumably reactive. 4. Unchanged low-density bilateral adrenal nodules, likely adenomas. 5. Enlarged central pulmonary trunk, suggesting pulmonary arterial hypertension. 6. Prior cardiac valvular surgery/procedures. VTE: Negative, slight limitation as above Assessment and Plan (1) Influenza A: Status: Acute (2) COPD (chronic obstructive pulmonary disease): Status: Acute (3) Acute on chronic respiratory failure with hypoxia: Status: Acute Plan Pt is a 66-year-old female with PMH significant for COPD, diastolic heart failure, mitral and aortic wall replacement on Coumadin, chronic hypoxemic respiratory failure on 4L of O2 at home, h/o afib, h/o amiodarone pulmonary and renal toxicity, hypothyroidism, mood disorder, and chronic normocytic anemia who presents to the ED today after worsening SOB for the past 3-4 days. Pt tested positive for influenza A and will be admitted to the hospital for acute on chronic respiratory failure in the setting of COPD exacerbation d/t influenza infection. # acute on chronic respiratory failure in the setting of COPD exacerbation d/t influenza infection. -- tamiflu 75mg bid, day 11/06 -- DuoNeb q4 and while awake -- SoluMedrol 60mg q8hr -- currently on OxyMask, monitor and wean as tolerated to maintain O2 >92 -- check procalcitonin for possible bacterial source and add abx as needed; pt received one dose of ceftriaxone in ED at presentation # h/o CHF -- does not seem in acute exacerbation -- check BNP # anemia, chronic -- seems stable at baseline -- monitor labs # INR -- subtherapeutic at 1.8 -- initiate heparin bridge -- monitor INR and restart Coumadin # HTN -- BP a little soft; hold furosemide for now, restart as necessary # hypothyroidism -- continue home meds # mood disorder -- continue home meds -currently on 4 L supplemental oxygen, baseline 3 L at home.? Monitor and wean as tolerated, maintain oxygen saturation greater than 88%. Full code DVT prophylaxis: on Coumadin Attending: Dr. Mcnamara Pt will require a hospitalization of at least two nights for treatment and close monitoring of respiratory failure. Time Spent With Patient Time: Total time managing care of this patient today ____ minutes. Quality Stroke Does the patient have a stroke diagnosis?: No VTE Prior VTE?: No VTE Risk Level:: Medical - moderate - high VTE Device Contraindication: Treatment Not Indicated VTE Drug Contraindication: N/A - Med Ordered
[2022-10-27] MEDS: Heparin Sodium,Porcine 5,000 UNIT/ML VIAL 5700 UNIT IVPUSH (21:12)
[2022-10-27] MEDS: Heparin Sodium,Porcine/1/2NS 25,000 UNIT/250 ML IV.SOLN 9.94 UNIT IVCONT (21:17)
--- NOTE | 2022-10-27 21:26 | PC.NURSE ---
blood work obtained and sent down the lab. pt medicated according to mar
--- NOTE | 2022-10-27 21:28 | PC.NURSE ---
BP left arm 93/47. Dr leblanc made aware. md requested recheck other arm. bp right arm 97/57. md made aware. per dr leblanc recheck additional BP in 1 hour
[2022-10-27 21:29] LABS: PTT Heparin Drip 34.7 SEC (53-77.9)
[2022-10-27 22:03] LABS: Procalcitonin 0.27 ng/mL
[2022-10-28] VITALS (9 sets, daily range): BP systolic 98–127; BP diastolic 54–64; PULSE 69–95; RESP 18–36; TEMP 36.2–36.9; O2SAT 80–95; BMI 27.3
[2022-10-28] MEDS: methylPREDNISolone Sod Succ 125 MG/2 ML VIAL 60 MG IVPUSH ×3 (00:07→16:03)
[2022-10-28] MEDS: 0.9 % Sodium Chloride Flush 3 ML SYRINGE IVFLUSH ×3 (00:07→16:03)
[2022-10-28 00:21] LABS: Appearance Urine Clear; Color Urine Yellow; Glucose Urine UA Negative (Negative); Leukocyte Esterase Urine Negative (Negative); Nitrite Urine Negative (Negative); Specific Gravity - Urine >= 1.030 (1.005-1.025); Urine Blood Negative (Negative); Urine Ketones Negative (Negative); Urine Protein Trace mg/dL (Neg-Trace)
[2022-10-28] MEDS: guaiFENesin DM 100/10/5 ML 5 ML SYRUP PO ×3 (02:55→20:32)
[2022-10-28] MEDS: Benzonatate 100 MG CAPSULE PO ×3 (02:55→20:32)
--- NOTE | 2022-10-28 03:19 | PC.NURSE ---
PT UP TO BEDSIDE COMMODE. INCREASED FREQUENCY OF COUGHING. PT sPo2 DOWN TO 80% ON OXYMASK. dR [place] NOTIFIED. ORDER PLACED FOR GUAFICINE AND TESSELON. PT MEDICATED ACCORDING TO DEC.
[2022-10-28 03:47] LABS: Partial Thromboplastin Time > 200.0 SEC (26.0-36.4)
--- NOTE | 2022-10-28 03:56 | PC.NURSE ---
PTT-HD results came back <200. Protocols directed to hold infusion at this time and then repeat aPTT hourly. This RN called lab to confirm when the next aPTT is to be drawn and they stated one hour from when the last aPTT was drawn. Infusion was held at this time and next aPTT will be drawn at 0430.
[2022-10-28 05:11] LABS: PTT Heparin Drip 120.9 SEC (53-77.9)
--- NOTE | 2022-10-28 05:20 | PC.NURSE ---
critical PTT result read back to this rn of 120.9. Dr Mcnamara notified. per herparin protocol, continue to hold heparin at this time repeat PTT draw one hour from previous draw 0545. notified hospitalist of this protocol. no additional orders at this time
[2022-10-28] MEDS: Levothyroxine Sodium 25 MCG TABLET PO (06:02)
[2022-10-28] MEDS: Oseltamivir Phosphate 75 MG CAPSULE PO ×2 (06:02→18:22)
[2022-10-28 07:17] LABS: Hemoglobin 9.4 g/dl (12.0-16.0); Red Cell Distribution Width 16.3 % (11.0-16.0)
[2022-10-28 07:19] LABS: Hematocrit 30.8 % (37.0-47.0); Mean Corpuscular HGB Conc 30.5 g/dl (31.0-35.0); Mean Corpuscular Hemoglobin 26.3 pg (27.0-33.0); Platelet Count 150 X10*3/uL (160-400); Red Blood Count 3.58 X10*6/uL (4.20-5.50); White Blood Count 4.3 X10*3/uL (4.8-10.8)
[2022-10-28 07:22] LABS: PLT ABN DIST 1
[2022-10-28 07:36] LABS: INTERNATIONAL NORM RATIO 1.5 (0.9-1.1); Prothrombin Time 17.8 SEC (10.0-13.1)
[2022-10-28] MEDS: Albuterol/Iprat 2.5/0.5MG 3 ML AMPUL.NEB INHALE ×4 (07:37→19:59)
[2022-10-28 07:38] LABS: PTT Heparin Drip 55.3 SEC (53-77.9)
[2022-10-28] MEDS: Sertraline HCL 100 MG TABLET 200 MG PO (07:47)
[2022-10-28] MEDS: dilTIAZem HCL CD 120 MG CAP.ER.DEG PO (07:48)
[2022-10-28] MEDS: Atorvastatin Calcium 20 MG TABLET PO (07:48)
[2022-10-28] MEDS: Ferrous Sulfate 324 MG TABLET.DR PO (07:48)
[2022-10-28] MEDS: Folic Acid 1 MG TABLET PO (07:48)
[2022-10-28] MEDS: ondansetron HCL 4 MG/2 ML VIAL IVPUSH (08:01)
--- NOTE | 2022-10-28 13:29 | HO.PM.IMPN ---
Subjective Subjective Date of Service: 10/28/22 Interval History: seen and examined this morning follow up for COPD exacerbation, Influenza A reports shortness of breath, productive cough - worse with movement, better at rest Review of Systems Review of Systems: Yes all other systems are reviewed and are negative Constitutional Constitutional: Denies chills and Denies fever(s) Cardiovascular Cardiovascular: Denies chest pain, Denies palpitations and Reports dyspnea on exertion Respiratory Respiratory: Reports cough and Reports dyspnea on exertion Gastrointestinal Gastrointestinal: Denies abdominal pain, Denies nausea and Denies vomiting Endocrine Endocrine: Denies palpitations Physical Exam Vital Signs: Vital Signs: Last Vital Signs Temp 97.2 F 10/28/22 07:42 Pulse 74 10/28/22 11:35 Resp 21 H 10/28/22 11:35 BP 114/57 L 10/28/22 07:42 Pulse Ox 94 10/28/22 07:42 O2 Del Method 10/28/22 07:42 O2 Flow Rate 5 10/28/22 06:47 Oxygen Flow Rate 4 10/27/22 15:32 BMI result Body Mass Index 28.6 Const: General: alert and awake Nutritional Appearance: average body habitus Orientation/consciousness: patient oriented x3 Resp: Effort & Inspection: normal respiratory effort, able to speak in complete sentences and no use of accessory muscles Cardio: Rate: regular rate Heart sounds: S1 normal heart sound present, S2 normal heart sound present and Clicking heart sound present GI: Inspection: No distended Palpation (GI): not soft and nontender Neuro: General: patient oriented x3 and CN's II-XI intact bilaterally Extrem: General: Yes no pedal edema Objective Data Active Medications Acetaminophen (Acetaminophen 325 Mg Tablet) 650 mg PO Q6H PRN PRN Reason: Pain, Mild (Pain Scale 1-3) Albuterol/Ipratropium (Albuterol/Iprat 2.5/0.5mg 3 Ml Ampul.Neb) 3 ml INHALE RQ4H WHILE AWAKE [facility] Last Admin: 10/28/22 11:31 Dose: 3 ml Documented By: ULRICC Atorvastatin Calcium (Atorvastatin Calcium 20 Mg Tablet) 20 mg PO DAILY [facility] Last Admin: 10/28/22 07:48 Dose: 20 mg Documented By: COOPEB Benzonatate (Benzonatate 100 Mg Capsule) 100 mg PO TID PRN PRN Reason: Cough Last Admin: 10/28/22 07:59 Dose: 100 mg Documented By: JOBY Diltiazem HCl (Diltiazem Hcl Cd 120 Mg Cap.Er.Deg) 120 mg PO DAILY [facility]; Protocol Last Admin: 10/28/22 07:48 Dose: 120 mg Documented By: JOBY Docusate Sodium (Docusate Sodium 100 Mg Capsule) 100 mg PO DAILY PRN PRN Reason: Constipation Ferrous Sulfate (Ferrous Sulfate 324 Mg Tablet.Dr) 324 mg PO DAILY [facility] Last Admin: 10/28/22 07:48 Dose: 324 mg Documented By: JOBY Folic Acid (Folic Acid 1 Mg Tablet) 1 mg PO DAILY [facility] Last Admin: 10/28/22 07:48 Dose: 1 mg Documented By: JOBY Guaifenesin/Dextromethorphan (Guaifenesin Dm 100/10/5 Ml 5 Ml Syrup) 5 ml PO Q4H PRN PRN Reason: Cough Last Admin: 10/28/22 02:55 Dose: 5 ml Documented By: MIREYA Heparin Sodium (Porcine) (Heparin Sodium,Porcine 5,000 Unit/Ml Vial) 2,800 unit 40 unit/kg (2800 unit) IVPUSH PROTOCOL BOLUS PRN; Protocol PRN Reason: 40 unit/kg - Heparin Protocol Heparin Sodium (Porcine) (Heparin Sodium,Porcine 5,000 Unit/Ml Vial) 5,700 unit 80 unit/kg (5700 unit) IVPUSH PROTOCOL BOLUS PRN; Protocol PRN Reason: 80 unit/kg - Heparin Protocol Heparin Sodium/Sodium Chloride (Heparin Sodium,Porcine/1/2ns) 25,000 unit in 250 mls @ 0 mls/hr IVCONT .Q0M [facility]; Protocol Last Titration: 10/28/22 07:52 Dose: 10 units/kg/hr, 7.1 mls/hr Documented By: JOBY Co-signed By: GAUTAM Levothyroxine Sodium (Levothyroxine Sodium 25 Mcg Tablet) 25 mcg PO DAILY@0600 [facility] Last Admin: 10/28/22 06:02 Dose: 25 mcg Documented By: MIREYA Methylprednisolone Sodium Succinate (Methylprednisolone Sod Succ 125 Mg/2 Ml Vial) 60 mg IVPUSH Q8H [facility] Last Admin: 10/28/22 07:47 Dose: 60 mg Documented By: JOBY Ondansetron HCl (Ondansetron Hcl 4 Mg/2 Ml Vial) 4 mg IVPUSH Q8H PRN PRN Reason: Nausea and Vomiting Last Admin: 10/28/22 08:01 Dose: 4 mg Documented By: JOBY Oseltamivir Phosphate (Oseltamivir Phosphate 75 Mg Capsule) 75 mg PO Q12H [facility] Stop: 11/01/22 18:01 Last Admin: 10/28/22 06:02 Dose: 75 mg Documented By: MIREYA Sertraline HCl (Sertraline Hcl 100 Mg Tablet) 200 mg PO DAILY [facility] Last Admin: 10/28/22 07:47 Dose: 200 mg Documented By: JOBY Sodium Chloride (0.9 % Sodium Chloride Flush 3 Ml Syringe) 3 ml IVFLUSH QSHIFT [facility] Last Admin: 10/28/22 07:48 Dose: 3 ml Documented By: JOBY Warfarin Sodium (Warfarin Sodium 5 Mg Tablet) 5 mg PO SUMOTUWEFRSA@1800 [facility] Warfarin Sodium (Warfarin Sodium 7.5 Mg Tablet) 7.5 mg PO TH@1800 [facility] Labs CBC & Chem 7: 10/28/22 05:57 10/27/22 15:54 Labs: Laboratory Results - last 24 hr 10/27/22 10/27/22 10/27/22 15:45 15:54 15:54 MCV 85.5 MCH 26.6 L MCHC 31.1 RDW 16.9 H Plt Count 154 L D MPV Not Reportable Immature Gran % (Auto) 0.4 Neut % (Auto) 84.8 H Lymph % (Auto) 5.7 L [place] % (Auto) 8.4 Eos % (Auto) 0.3 Baso % (Auto) 0.4 Lymph # (Auto) 0.4 L [place] # (Auto) 0.6 Eos # (Auto) 0.0 Baso # (Auto) 0.0 Abs Immat Gran (auto) 0.03 Absolute Neuts (auto) 6.3 Absolute Nucleated RBC 0.000 Nucleated RBC % (auto) 0.0 PT 21.0 H INR 1.8 H APTT aPTT Heparin Protocol Anion Gap Estim Creat Clear Calc Estimated GFR Random Glucose Lactic Acid Calcium Magnesium Total Bilirubin Direct Bilirubin AST ALT Alkaline Phosphatase Troponin I High Sens Total Protein Albumin Procalcitonin Urine Color Urine Appearance Urine pH Ur Specific [place] Urine Protein Urine Glucose (UA) Urine Ketones Urine Blood Urine Nitrite Ur Leukocyte Esterase Influenza Type A (PCR) POSITIVE A Influenza Type B (PCR) NEGATIVE RSV RNA Qual (PCR) NEGATIVE SARS-CoV-2 RNA (RT-PCR) NEGATIVE 10/27/22 10/27/22 10/27/22 15:54 15:54 15:54 MCV MCH MCHC RDW Plt Count MPV Immature Gran % (Auto) Neut % (Auto) Lymph % (Auto) [place] % (Auto) Eos % (Auto) Baso % (Auto) Lymph # (Auto) [place] # (Auto) Eos # (Auto) Baso # (Auto) Abs Immat Gran (auto) Absolute Neuts (auto) Absolute Nucleated RBC Nucleated RBC % (auto) PT INR APTT aPTT Heparin Protocol Anion Gap 13 Estim Creat Clear Calc 69.3 Estimated GFR > 60 Random Glucose 105 Lactic Acid 0.8 Calcium 8.6 Magnesium 1.9 Total Bilirubin 0.6 Direct Bilirubin 0.2 AST 31 ALT 10 Alkaline Phosphatase 99 Troponin I High Sens 16.7 D Total Protein 7.7 Albumin 3.3 L Procalcitonin Urine Color Urine Appearance Urine pH Ur Specific [place] Urine Protein Urine Glucose (UA) Urine Ketones Urine Blood Urine Nitrite Ur Leukocyte Esterase Influenza Type A (PCR) Influenza Type B (PCR) RSV RNA Qual (PCR) SARS-CoV-2 RNA (RT-PCR) 10/27/22 10/27/22 10/28/22 15:54 21:07 00:12 MCV MCH MCHC RDW Plt Count MPV Immature Gran % (Auto) Neut % (Auto) Lymph % (Auto) [place] % (Auto) Eos % (Auto) Baso % (Auto) Lymph # (Auto) [place] # (Auto) Eos # (Auto) Baso # (Auto) Abs Immat Gran (auto) Absolute Neuts (auto) Absolute Nucleated RBC Nucleated RBC % (auto) PT INR APTT aPTT Heparin Protocol 34.7 L Anion Gap Estim Creat Clear Calc Estimated GFR Random Glucose Lactic Acid Calcium Magnesium Total Bilirubin Direct Bilirubin AST ALT Alkaline Phosphatase Troponin I High Sens Total Protein Albumin Procalcitonin 0.27 Urine Color Yellow Urine Appearance Clear Urine pH 5.0 Ur Specific [place] >= 1.030 H Urine Protein Trace Urine Glucose (UA) Negative Urine Ketones Negative Urine Blood Negative Urine Nitrite Negative Ur Leukocyte Esterase Negative Influenza Type A (PCR) Influenza Type B (PCR) RSV RNA Qual (PCR) SARS-CoV-2 RNA (RT-PCR) 10/28/22 10/28/22 10/28/22 03:17 04:42 05:57 MCV 86.0 MCH 26.3 L MCHC 30.5 L RDW 16.3 H Plt Count 150 L MPV Not Reportable Immature Gran % (Auto) Neut % (Auto) Lymph % (Auto) [place] % (Auto) Eos % (Auto) Baso % (Auto) Lymph # (Auto) [place] # (Auto) Eos # (Auto) Baso # (Auto) Abs Immat Gran (auto) Absolute Neuts (auto) Absolute Nucleated RBC 0.000 Nucleated RBC % (auto) 0.0 PT INR APTT > 200.0 H* D aPTT Heparin Protocol 120.9 H* D Anion Gap Estim Creat Clear Calc Estimated GFR Random Glucose Lactic Acid Calcium Magnesium Total Bilirubin Direct Bilirubin AST ALT Alkaline Phosphatase Troponin I High Sens Total Protein Albumin Procalcitonin Urine Color Urine Appearance Urine pH Ur Specific [place] Urine Protein Urine Glucose (UA) Urine Ketones Urine Blood Urine Nitrite Ur Leukocyte Esterase Influenza Type A (PCR) Influenza Type B (PCR) RSV RNA Qual (PCR) SARS-CoV-2 RNA (RT-PCR) 10/28/22 10/28/22 05:57 06:23 MCV MCH MCHC RDW Plt Count MPV Immature Gran % (Auto) Neut % (Auto) Lymph % (Auto) [place] % (Auto) Eos % (Auto) Baso % (Auto) Lymph # (Auto) [place] # (Auto) Eos # (Auto) Baso # (Auto) Abs Immat Gran (auto) Absolute Neuts (auto) Absolute Nucleated RBC Nucleated RBC % (auto) PT 17.8 H INR 1.5 H APTT aPTT Heparin Protocol 55.3 D Anion Gap Estim Creat Clear Calc Estimated GFR Random Glucose Lactic Acid Calcium Magnesium Total Bilirubin Direct Bilirubin AST ALT Alkaline Phosphatase Troponin I High Sens Total Protein Albumin Procalcitonin Urine Color Urine Appearance Urine pH Ur Specific [place] Urine Protein Urine Glucose (UA) Urine Ketones Urine Blood Urine Nitrite Ur Leukocyte Esterase Influenza Type A (PCR) Influenza Type B (PCR) RSV RNA Qual (PCR) SARS-CoV-2 RNA (RT-PCR) 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, chronic hypoxemic respiratory failure on 2L of O2 at home, h/o afib, h/o amiodarone pulmonary and renal toxicity, hypothyroidism, mood disorder, and chronic normocytic anemia who presents to the ED today after worsening SOB for the past 3-4 days found to have influenza A and acute on chronic respiratory failure acute on chronic respiratory failure in the setting of COPD exacerbation d/t influenza infection at baseline uses 2-3L of oxygen although has increased to 4 recently due to SOB Continue tamiflu continue breathing treatments, systemic steroids currently on OxyMask, monitor and wean as tolerated to maintain O2 >92 Mechanical Mitral valve INR subtherapeutic at 1.5 continue heparin bridge until INR therapeutic continue coumadin follow INR (goal 2.5-3.5) thrombocytopenia likely r/t acute illness/flu follow CBC HTN BP a little soft; hold furosemide for now Paroxysmal atrial fibrillation continue cardizem continue AC with heparin/coumadin Chronic HFpEF no acute exacerbation bp soft, lasix on hold chronic microcytic anemia H/H stable hypothyroidism continue home meds mood disorder continue home meds Full code DVT prophylaxis: Hpearin/Coumadin Attending: Dr. Zaragoza Requires ongoing hospitalization for respiratory failure/treatment of Flu A Time Spent With Patient Time: Total time managing care of this patient today ____ minutes. Quality Stroke Does the patient have a stroke diagnosis?: No VTE Prior VTE?: No VTE Risk Level:: Medical - moderate - high VTE Device Contraindication: Treatment Not Indicated VTE Drug Contraindication: N/A - Med Ordered
[2022-10-28 13:53] LABS: PTT Heparin Drip 60.8 SEC (53-77.9)
[2022-10-28] MEDS: Warfarin Sodium 5 MG TABLET PO (18:22)
[2022-10-28] MEDS: Acetaminophen 325 MG TABLET 650 MG PO (20:38)
[2022-10-28 21:01] LABS: PTT Heparin Drip 55.1 SEC (53-77.9)
[2022-10-29] VITALS (7 sets, daily range): BP systolic 108–128; BP diastolic 55–59; PULSE 67–87; RESP 16–20; TEMP 36.2–36.7; O2SAT 93–98
[2022-10-29] MEDS: methylPREDNISolone Sod Succ 125 MG/2 ML VIAL 60 MG IVPUSH ×4 (00:08→23:11)
[2022-10-29] MEDS: Heparin Sodium,Porcine/1/2NS 25,000 UNIT/250 ML IV.SOLN 7.1 UNIT IVCONT (05:00)
[2022-10-29] MEDS: Oseltamivir Phosphate 75 MG CAPSULE PO ×2 (05:30→18:05)
[2022-10-29] MEDS: Levothyroxine Sodium 25 MCG TABLET PO (05:30)
[2022-10-29 06:25] LABS: Hematocrit 30.6 % (37.0-47.0); Hemoglobin 9.5 g/dl (12.0-16.0); Mean Corpuscular Hemoglobin 26.8 pg (27.0-33.0); Mean Corpuscular Volume 86.2 fL (80.0-98.0); Platelet Count 170 X10*3/uL (160-400); Red Blood Count 3.55 X10*6/uL (4.20-5.50); Red Cell Distribution Width 16.5 % (11.0-16.0); White Blood Count 9.8 X10*3/uL (4.8-10.8)
[2022-10-29 06:28] LABS: INTERNATIONAL NORM RATIO 1.5 (0.9-1.1); Prothrombin Time 17.8 SEC (10.0-13.1)
[2022-10-29] MEDS: guaiFENesin DM 100/10/5 ML 5 ML SYRUP PO (06:34)
[2022-10-29] MEDS: Albuterol/Iprat 2.5/0.5MG 3 ML AMPUL.NEB INHALE ×4 (08:59→19:33)
--- NOTE | 2022-10-29 09:24 | MHC.CM.PN ---
PATIENT LIVES WITH HCP/DAUGHTER AND GRAND CHILD HOME O2 AND CONCENTRATOR WITH [employer]. NO VNA OR DME FOR AMBULATION. DAUGHTER ASSISTS WHERE NEEDED. PLAN IS HOME WHEN MEDICALLY CLEARED IMM 10/29/22 IN CHART
[2022-10-29] MEDS: 0.9 % Sodium Chloride Flush 3 ML SYRINGE IVFLUSH ×3 (09:34→23:11)
[2022-10-29] MEDS: Ferrous Sulfate 324 MG TABLET.DR PO (09:34)
[2022-10-29] MEDS: Folic Acid 1 MG TABLET PO (09:34)
[2022-10-29] MEDS: Sertraline HCL 100 MG TABLET 200 MG PO (09:34)
[2022-10-29] MEDS: dilTIAZem HCL CD 120 MG CAP.ER.DEG PO (09:34)
[2022-10-29] MEDS: Atorvastatin Calcium 20 MG TABLET PO (09:34)
--- NOTE | 2022-10-29 10:02 | P.PNIM_ITS ---
Subjective Subjective Date of Service: 10/29/22 Interval History: seen and examined this morning follow up for COPD exacerbation, Influenza A reports shortness of breath, productive cough - worse with movement, better at rest Review of Systems Review of Systems: Yes all other systems are reviewed and are negative Constitutional Constitutional: Denies chills and Denies fever(s) Cardiovascular Cardiovascular: Denies chest pain, Denies palpitations and Reports dyspnea on exertion Respiratory Respiratory: Reports cough and Reports dyspnea on exertion Gastrointestinal Gastrointestinal: Denies abdominal pain, Denies nausea and Denies vomiting Endocrine Endocrine: Denies palpitations Physical Exam Vital Signs: Vital Signs: Last Vital Signs Temp 98.1 F 10/29/22 08:00 Pulse 87 10/29/22 09:06 Resp 20 10/29/22 09:06 BP 118/55 L 10/29/22 08:00 Pulse Ox 97 10/29/22 08:00 O2 Del Method 10/29/22 08:00 O2 Flow Rate 4.5 10/29/22 08:00 Oxygen Flow Rate 4 10/27/22 15:32 BMI result Body Mass Index 27.3 Appearing in no acute distress lung sounds poor air movement heart regular rate rhythm, clear S1, S2 positive bowel sounds, abdomen is soft, nontender neuro patient is alert x3, no focal deficits Objective Data Active Medications Acetaminophen (Acetaminophen 325 Mg Tablet) 650 mg PO Q6H PRN PRN Reason: Pain, Mild (Pain Scale 1-3) Last Admin: 10/28/22 20:38 Dose: 650 mg Documented By: SYLVIA Albuterol/Ipratropium (Albuterol/Iprat 2.5/0.5mg 3 Ml Ampul.Neb) 3 ml INHALE R Q4H WHILE AWAKE [facility] Last Admin: 10/29/22 08:59 Dose: 3 ml Documented By: ALFA Atorvastatin Calcium (Atorvastatin Calcium 20 Mg Tablet) 20 mg PO DAILY [facility] Last Admin: 10/29/22 09:34 Dose: 20 mg Documented By: ABEL Benzonatate (Benzonatate 100 Mg Capsule) 100 mg PO TID PRN PRN Reason: Cough Last Admin: 10/28/22 20:32 Dose: 100 mg Documented By: SYLVIA Diltiazem HCl (Diltiazem Hcl Cd 120 Mg Cap.Er.Deg) 120 mg PO DAILY [facility]; Protocol Last Admin: 10/29/22 09:34 Dose: 120 mg Documented By: ABEL Docusate Sodium (Docusate Sodium 100 Mg Capsule) 100 mg PO DAILY PRN PRN Reason: Constipation Ferrous Sulfate (Ferrous Sulfate 324 Mg Tablet.) 324 mg PO DAILY [facility] Last Admin: 10/29/22 09:34 Dose: 324 mg Documented By: ABEL Folic Acid (Folic Acid 1 Mg Tablet) 1 mg PO DAILY [facility] Last Admin: 10/29/22 09:34 Dose: 1 mg Documented By: ABEL Guaifenesin/Dextromethorphan (Guaifenesin Dm 100/10/5 Ml 5 Ml Syrup) 5 ml PO Q4H PRN PRN Reason: Cough Last Admin: 10/29/22 06:34 Dose: 5 ml Documented By: SYLVIA Heparin Sodium (Porcine) (Heparin Sodium,Porcine 5,000 Unit/Ml Vial) 2,800 unit 40 unit/kg (2800 unit) IVPUSH PROTOCOL BOLUS PRN; Protocol PRN Reason: 40 unit/kg - Heparin Protocol Heparin Sodium (Porcine) (Heparin Sodium,Porcine 5,000 Unit/Ml Vial) 5,700 unit 80 unit/kg (5700 unit) IVPUSH PROTOCOL BOLUS PRN; Protocol PRN Reason: 80 unit/kg - Heparin Protocol Heparin Sodium/Sodium Chloride (Heparin Sodium,Porcine/1/2ns) 25,000 unit in 250 mls @ 0 mls/hr IVCONT .Q0M [facility]; Protocol Last Admin: 10/29/22 05:00 Dose: 10 units/kg/hr, 7.1 mls/hr Documented By: SYLVIA Co-signed By: RAKAN Levothyroxine Sodium (Levothyroxine Sodium 25 Mcg Tablet) 25 mcg PO DAILY@0600 [facility] Last Admin: 10/29/22 05:30 Dose: 25 mcg Documented By: SYLVIA Methylprednisolone Sodium Succinate (Methylprednisolone Sod Succ 125 Mg/2 Ml Vial) 60 mg IVPUSH Q8H [facility] Last Admin: 10/29/22 09:35 Dose: 60 mg Documented By: ABEL Ondansetron HCl (Ondansetron Hcl 4 Mg/2 Ml Vial) 4 mg IVPUSH Q8H PRN PRN Reason: Nausea and Vomiting Last Admin: 10/28/22 08:01 Dose: 4 mg Documented By: JOBY Oseltamivir Phosphate (Oseltamivir Phosphate 75 Mg Capsule) 75 mg PO Q12H [facility] Stop: 11/01/22 18:01 Last Admin: 10/29/22 05:30 Dose: 75 mg Documented By: SYLVIA Sertraline HCl (Sertraline Hcl 100 Mg Tablet) 200 mg PO DAILY [facility] Last Admin: 10/29/22 09:34 Dose: 200 mg Documented By: ABEL Sodium Chloride (0.9 % Sodium Chloride Flush 3 Ml Syringe) 3 ml IVFLUSH QSHIFT [facility] Last Admin: 10/29/22 09:34 Dose: 3 ml Documented By: ABEL Warfarin Sodium (Warfarin Sodium 5 Mg Tablet) 5 mg PO SUMOTUWEFRSA@1800 [facility] Last Admin: 10/28/22 18:22 Dose: 5 mg Documented By: JOBY Warfarin Sodium (Warfarin Sodium 7.5 Mg Tablet) 7.5 mg PO TH@1800 [facility] Labs CBC & Chem 7: 10/29/22 05:41 10/27/22 15:54 Labs: Laboratory Results - last 24 hr 10/28/22 10/28/22 10/29/22 13:38 20:36 05:41 MCV 86.2 MCH 26.8 L MCHC 31.0 RDW 16.5 H Plt Count 170 MPV Not Reportable Absolute Nucleated RBC 0.000 Nucleated RBC % (auto) 0.0 PT INR aPTT Heparin Protocol 60.8 55.1 10/29/22 05:41 MCV MCH MCHC RDW Plt Count MPV Absolute Nucleated RBC Nucleated RBC % (auto) PT 17.8 H INR 1.5 H aPTT Heparin Protocol 59.0 Microbiology Microbiology Results: Microbiology 10/27/22 16:18 Blood Culture - Preliminary Blood - Venous No growth after 24 hours. 10/27/22 15:53 Blood Culture - Preliminary Blood - Venous No growth after 24 hours. 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, chronic hypoxemic respiratory failure on 2L of O2 at home, h/o afib, h/o amiodarone pulmonary and renal toxicity, hypothyroidism, mood disorder, and chronic normocytic anemia who presents to the ED today after worsening SOB for the past 3-4 days found to have influenza A and acute on chronic respiratory failure Acute on chronic respiratory failure in the setting of COPD exacerbation d/t influenza infection at baseline uses 2-3L of oxygen although has increased to 4 recently due to SOB Continue tamiflu Duonebs, Solumedrol scheduled currently on OxyMask, monitor and wean as tolerated to maintain O2 >92 add Breo Mechanical Mitral valve INR subtherapeutic at 1.5 continue heparin bridge until INR therapeutic continue coumadin follow INR (goal 2.5-3.5) thrombocytopenia likely r/t acute illness/flu follow CBC HTN Soft BP, hold furosemide for now Paroxysmal atrial fibrillation continue cardizem continue AC with heparin/coumadin Chronic HFpEF no acute exacerbation bp soft, lasix on hold chronic microcytic anemia H/H stable hypothyroidism continue home meds mood disorder continue home meds Full code DVT prophylaxis: Hpearin/Coumadin Attending: Dr. Feliciano Requires ongoing hospitalization for respiratory failure/treatment of Flu A Time Spent With Patient Time: Total time managing care of this patient today ____ minutes. Quality Stroke Does the patient have a stroke diagnosis?: No VTE Prior VTE?: No VTE Risk Level:: Medical - moderate - high VTE Device Contraindication: Treatment Not Indicated VTE Drug Contraindication: N/A - Med Ordered
[2022-10-29 14:21] LABS: Anion Gap 14 (12-20); Blood Urea Nitrogen 20 mg/dL (9-16); Calcium 8.8 mg/dL (8.4-10.2); Carbon Dioxide 25 mmol/L (22-29); Chloride 105 mmol/L (96-108); Creatinine Clr Calc Pharmacy 72.3; Estimated Glomerular Filt Rate > 60; Glucose Random 128 mg/dL (60-115); Sodium 140 mmol/L (135-145)
[2022-10-29] MEDS: Acetaminophen 325 MG TABLET 650 MG PO (18:05)
[2022-10-29] MEDS: Warfarin Sodium 5 MG TABLET PO (18:05)
[2022-10-30] VITALS (7 sets, daily range): BP systolic 100–137; BP diastolic 53–65; PULSE 65–70; RESP 18–20; TEMP 36–37.2; O2SAT 91–98; BMI 27.3
[2022-10-30] MEDS: Heparin Sodium,Porcine/1/2NS 25,000 UNIT/250 ML IV.SOLN 7.1 UNIT IVCONT (05:22)
[2022-10-30] MEDS: Levothyroxine Sodium 25 MCG TABLET PO (06:16)
[2022-10-30] MEDS: Oseltamivir Phosphate 75 MG CAPSULE PO ×2 (06:16→16:11)
[2022-10-30] MEDS: guaiFENesin DM 100/10/5 ML 5 ML SYRUP PO ×3 (06:20→21:33)
[2022-10-30] MEDS: Acetaminophen 325 MG TABLET 650 MG PO ×3 (06:21→21:33)
[2022-10-30] MEDS: Benzonatate 100 MG CAPSULE PO ×2 (06:21→12:54)
[2022-10-30 06:52] LABS: Prothrombin Time 24.1 SEC (10.0-13.1)
[2022-10-30 06:57] LABS: Anion Gap 11 (12-20); Blood Urea Nitrogen 18 mg/dL (9-16); Calcium 9.2 mg/dL (8.4-10.2); Carbon Dioxide 27 mmol/L (22-29); Chloride 105 mmol/L (96-108); Creatinine Clr Calc Pharmacy 74.5; Estimated Glomerular Filt Rate > 60; Glucose Random 105 mg/dL (60-115); Potassium 4.2 mmol/L (3.3-5.1); Sodium 139 mmol/L (135-145)
[2022-10-30] MEDS: Heparin Sodium,Porcine 5,000 UNIT/ML VIAL 2800 UNIT IVPUSH (07:30)
[2022-10-30] MEDS: Fluticasone/Vilanterol 100/25 BLST.W.DEV 1 PUFF INHALE (09:20)
[2022-10-30] MEDS: Albuterol/Iprat 2.5/0.5MG 3 ML AMPUL.NEB INHALE ×4 (09:21→19:46)
[2022-10-30] MEDS: methylPREDNISolone Sod Succ 125 MG/2 ML VIAL 60 MG IVPUSH ×3 (09:29→23:27)
[2022-10-30] MEDS: dilTIAZem HCL CD 120 MG CAP.ER.DEG PO (09:30)
[2022-10-30] MEDS: Folic Acid 1 MG TABLET PO (09:30)
[2022-10-30] MEDS: 0.9 % Sodium Chloride Flush 3 ML SYRINGE IVFLUSH ×2 (09:30→16:12)
[2022-10-30] MEDS: Atorvastatin Calcium 20 MG TABLET PO (09:30)
[2022-10-30] MEDS: Sertraline HCL 100 MG TABLET 200 MG PO (09:30)
[2022-10-30] MEDS: Ferrous Sulfate 324 MG TABLET.DR PO (09:30)
--- NOTE | 2022-10-30 11:22 | HO.PM.IMPN ---
Subjective Subjective Date of Service: 10/30/22 Interval History: seen and examined this morning follow up for COPD exacerbation, Influenza A reports shortness of breath, productive cough - worse with movement, better at rest Review of Systems Review of Systems: Yes all other systems are reviewed and are negative Constitutional Constitutional: Denies chills and Denies fever(s) Cardiovascular Cardiovascular: Denies chest pain, Denies palpitations and Reports dyspnea on exertion Respiratory Respiratory: Reports cough and Reports dyspnea on exertion Gastrointestinal Gastrointestinal: Denies abdominal pain, Denies nausea and Denies vomiting Endocrine Endocrine: Denies palpitations Physical Exam Vital Signs: Vital Signs: Last Vital Signs Temp 96.8 F 10/30/22 07:48 Pulse 65 10/30/22 07:48 Resp 18 10/30/22 07:48 BP 129/60 10/30/22 07:48 Pulse Ox 97 10/30/22 07:48 O2 Del Method 10/30/22 07:48 O2 Flow Rate 4.5 10/30/22 07:48 Oxygen Flow Rate 4 10/27/22 15:32 BMI result Body Mass Index 27.3 Appearing in no acute distress lung sounds rhonchi heart regular rate rhythm, clear S1, S2 positive bowel sounds, abdomen is soft, nontender neuro patient is alert x3, no focal deficits Objective Data Active Medications Acetaminophen (Acetaminophen 325 Mg Tablet) 650 mg PO Q6H PRN PRN Reason: Pain, Mild (Pain Scale 1-3) Last Admin: 10/30/22 06:21 Dose: 650 mg Documented By: SYLVIA Albuterol/Ipratropium (Albuterol/Iprat 2.5/0.5mg 3 Ml Ampul.Neb) 3 ml INHALE RQ4H WHILE AWAKE [facility] Last Admin: 10/30/22 09:21 Dose: 3 ml Documented By: CRISTIANO Atorvastatin Calcium (Atorvastatin Calcium 20 Mg Tablet) 20 mg PO DAILY [facility] Last Admin: 10/30/22 09:30 Dose: 20 mg Documented By: TATIANAENOAL Benzonatate (Benzonatate 100 Mg Capsule) 100 mg PO TID PRN PRN Reason: Cough Last Admin: 10/30/22 06:21 Dose: 100 mg Documented By: SYLVIA Diltiazem HCl (Diltiazem Hcl Cd 120 Mg Cap.Er.Deg) 120 mg PO DAILY [facility]; Protocol Last Admin: 10/30/22 09:30 Dose: 120 mg Documented By: ASPEN Docusate Sodium (Docusate Sodium 100 Mg Capsule) 100 mg PO DAILY PRN PRN Reason: Constipation Ferrous Sulfate (Ferrous Sulfate 324 Mg Tablet.) 324 mg PO DAILY [facility] Last Admin: 10/30/22 09:30 Dose: 324 mg Documented By: ASPEN Fluticasone/Vilanterol (Fluticasone/Vilanterol 100/25 Blst.W.Dev) 1 puff INHALE RDAILY [facility] Last Admin: 10/30/22 09:20 Dose: 1 puff Documented By: CRISTIANO Folic Acid (Folic Acid 1 Mg Tablet) 1 mg PO DAILY [facility] Last Admin: 10/30/22 09:30 Dose: 1 mg Documented By: ASPEN Guaifenesin/Dextromethorphan (Guaifenesin Dm 100/10/5 Ml 5 Ml Syrup) 5 ml PO Q4H PRN PRN Reason: Cough Last Admin: 10/30/22 06:20 Dose: 5 ml Documented By: SYLVIA Heparin Sodium (Porcine) (Heparin Sodium,Porcine 5,000 Unit/Ml Vial) 2,800 unit 40 unit/kg (2800 unit) IVPUSH PROTOCOL BOLUS PRN; Protocol PRN Reason: 40 unit/kg - Heparin Protocol Last Admin: 10/30/22 07:30 Dose: 2,800 unit Documented By: SYLVIA Heparin Sodium (Porcine) (Heparin Sodium,Porcine 5,000 Unit/Ml Vial) 5,700 unit 80 unit/kg (5700 unit) IVPUSH PROTOCOL BOLUS PRN; Protocol PRN Reason: 80 unit/kg - Heparin Protocol Heparin Sodium/Sodium Chloride (Heparin Sodium,Porcine/1/2ns) 25,000 unit in 250 mls @ 0 mls/hr IVCONT .Q0M [facility]; Protocol Last Titration: 10/30/22 07:34 Dose: 12 units/kg/hr, 8.52 mls/hr Documented By: SYLVIA Co-signed By: BRADLY Levothyroxine Sodium (Levothyroxine Sodium 25 Mcg Tablet) 25 mcg PO DAILY@0600 [facility] Last Admin: 10/30/22 06:16 Dose: 25 mcg Documented By: SYLVIA Methylprednisolone Sodium Succinate (Methylprednisolone Sod Succ 125 Mg/2 Ml Vial) 60 mg IVPUSH Q8H [facility] Last Admin: 10/30/22 09:29 Dose: 60 mg Documented By: ASPEN Ondansetron HCl (Ondansetron Hcl 4 Mg/2 Ml Vial) 4 mg IVPUSH Q8H PRN PRN Reason: Nausea and Vomiting Last Admin: 10/28/22 08:01 Dose: 4 mg Documented By: COOPEB Oseltamivir Phosphate (Oseltamivir Phosphate 75 Mg Capsule) 75 mg PO Q12H [facility] Stop: 11/01/22 18:01 Last Admin: 10/30/22 06:16 Dose: 75 mg Documented By: SYLVIA Sertraline HCl (Sertraline Hcl 100 Mg Tablet) 200 mg PO DAILY [facility] Last Admin: 10/30/22 09:30 Dose: 200 mg Documented By: ASPEN Sodium Chloride (0.9 % Sodium Chloride Flush 3 Ml Syringe) 3 ml IVFLUSH QSHIFT [facility] Last Admin: 10/30/22 09:30 Dose: 3 ml Documented By: ASPEN Warfarin Sodium (Warfarin Sodium 5 Mg Tablet) 5 mg PO SUMOTUWEFRSA@1800 [facility] Last Admin: 10/29/22 18:05 Dose: 5 mg Documented By: ABEL Warfarin Sodium (Warfarin Sodium 7.5 Mg Tablet) 7.5 mg PO TH@1800 [facility] Labs CBC & Chem 7: 10/29/22 05:41 10/30/22 05:53 Labs: Laboratory Results - last 24 hr 10/29/22 10/30/22 10/30/22 05:41 05:53 05:53 PT 24.1 H INR 2.0 H aPTT Heparin Protocol 47.0 L D Anion Gap 14 11 L Estim Creat Clear Calc 72.3 74.5 Estimated GFR > 60 > 60 Random Glucose 128 H 105 Calcium 8.8 9.2 Microbiology Microbiology Results: Microbiology 10/27/22 16:18 Blood Culture - Preliminary Blood - Venous No growth after 48 hours. 10/27/22 15:53 Blood Culture - Preliminary Blood - Venous No growth after 48 hours. 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, chronic hypoxemic respiratory failure on 2L of O2 at home, h/o afib, h/o amiodarone pulmonary and renal toxicity, hypothyroidism, mood disorder, and chronic normocytic anemia who presents to the ED today after worsening SOB for the past 3-4 days found to have influenza A and acute on chronic respiratory failure Acute on chronic respiratory failure in the setting of COPD exacerbation d/t influenza infection at baseline uses 2-3L of oxygen although has increased to 4 recently due to SOB Continue tamiflu Duonebs, Solumedrol scheduled currently on OxyMask, monitor and wean as tolerated to maintain O2 >92 add Breo and spiriva Mechanical Mitral valve INR subtherapeutic at 2.0 continue heparin bridge until INR therapeutic continue coumadin follow INR (goal 2.5-3.5) thrombocytopenia likely r/t acute illness/flu follow CBC HTN Soft BP, hold furosemide for now Paroxysmal atrial fibrillation continue cardizem continue AC with heparin/coumadin Chronic HFpEF no acute exacerbation bp soft, lasix on hold chronic microcytic anemia H/H stable hypothyroidism continue home meds mood disorder continue home meds Full code DVT prophylaxis: Hpearin/Coumadin Attending: Dr. Butterfield Requires ongoing hospitalization for respiratory failure/treatment of Flu A Time Spent With Patient Time: Total time managing care of this patient today ____ minutes. Quality Stroke Does the patient have a stroke diagnosis?: No VTE Prior VTE?: No VTE Risk Level:: Medical - moderate - high VTE Device Contraindication: Treatment Not Indicated VTE Drug Contraindication: N/A - Med Ordered
[2022-10-30] MEDS: Warfarin Sodium 5 MG TABLET PO (16:11)
--- NOTE | 2022-10-30 19:22 | PC.NURSE ---
Pt continues on Heparin drip running at 12units/kg/hr with a PTT of 47 at 0700. PTT at 12pm was 108. Heparin held for 1 hour and restarted. Rate decreased by 3units/kg/hr, now running at 9units/kg/hr. Next PTT is at 2000. Pt also is on coumadin. INR this am was 2.0. Coumadin 5mg given at 1800. Droplet precautions maintaied due to Flu. Pt continues on tamiflu for that.
[2022-10-30 20:13] LABS: PTT Heparin Drip 53.9 SEC (53-77.9)
--- NOTE | 2022-10-30 22:02 | PC.NURSE ---
Addendum entered by Crystal Colin RN 10/31/22 01:15: Pt apologized to staff, myself included. Apologized for her outburst/behavior/language. Pt has allowed staff to provided care and medication as needed throughout the shift at this time. Original Note: Pt became angry/ verbally abusive toward staff, calling names such as fat lazy and bitches . Screaming at top of lungs that we the staff are withholding care and medication. Pt screaming her medication is 2 hours late and that she is being disrespected. Myself, the nurse on duty, explained to pt no medications were scheduled at that time. Pt continue to be belligerent and yelling, being disruptive towards other pt yelling no body's getting sleep tonight if I'm not getting sleep tonight Security was called to come speak with pt about noise levels and being disrespectful toward staff. Pt was rude and disrespectful to security telling them they can't arrest her for yelling. Pt eventually explained to security all she wanted was her Tylenol and cough syrup, pt was given Tylenol and cough syrup per request and reminded that those are as needed medications, not scheduled and she would need to ask for them if wanted.
[2022-10-31] VITALS (12 sets, daily range): BP systolic 120–139; BP diastolic 58–63; PULSE 54–112; RESP 16–22; TEMP 36–36.9; O2SAT 89–96
[2022-10-31 04:54] LABS: PTT Heparin Drip 55.1 SEC (53-77.9)
[2022-10-31] MEDS: Oseltamivir Phosphate 75 MG CAPSULE PO ×2 (05:41→18:18)
[2022-10-31] MEDS: Levothyroxine Sodium 25 MCG TABLET PO (05:41)
[2022-10-31] MEDS: guaiFENesin DM 100/10/5 ML 5 ML SYRUP PO (05:43)
[2022-10-31] MEDS: Benzonatate 100 MG CAPSULE PO (05:44)
[2022-10-31] MEDS: methylPREDNISolone Sod Succ 125 MG/2 ML VIAL 60 MG IVPUSH ×3 (06:00→22:22)
[2022-10-31] MEDS: Fluticasone/Vilanterol 100/25 BLST.W.DEV 1 PUFF INHALE (08:23)
[2022-10-31] MEDS: dilTIAZem HCL CD 120 MG CAP.ER.DEG PO (08:47)
[2022-10-31] MEDS: 0.9 % Sodium Chloride Flush 3 ML SYRINGE IVFLUSH ×2 (08:47→15:47)
[2022-10-31] MEDS: Folic Acid 1 MG TABLET PO (08:47)
[2022-10-31] MEDS: Atorvastatin Calcium 20 MG TABLET PO (08:47)
[2022-10-31] MEDS: Ferrous Sulfate 324 MG TABLET.DR PO (08:47)
[2022-10-31] MEDS: Sertraline HCL 100 MG TABLET 200 MG PO (08:47)
[2022-10-31] MEDS: Acetaminophen 325 MG TABLET 650 MG PO ×2 (09:08→16:47)
[2022-10-31] MEDS: Heparin Sodium,Porcine/1/2NS 25,000 UNIT/250 ML IV.SOLN 6.39 UNIT IVCONT (09:09)
--- NOTE | 2022-10-31 09:38 | HO.PM.IMPN ---
Subjective Subjective Date of Service: 10/31/22 Interval History: seen and examined this morning follow up for COPD exacerbation, Influenza A reports shortness of breath, productive cough - worse with movement, better at rest Review of Systems Review of Systems: Yes all other systems are reviewed and are negative Constitutional Constitutional: Denies chills and Denies fever(s) Cardiovascular Cardiovascular: Denies chest pain, Denies palpitations and Reports dyspnea on exertion Respiratory Respiratory: Reports cough and Reports dyspnea on exertion Gastrointestinal Gastrointestinal: Denies abdominal pain, Denies nausea and Denies vomiting Endocrine Endocrine: Denies palpitations Physical Exam Vital Signs: Vital Signs: Last Vital Signs Temp 97.0 F 10/31/22 08:00 Pulse 61 10/31/22 08:33 Resp 20 10/31/22 08:33 BP 131/63 10/31/22 08:00 Pulse Ox 92 10/31/22 08:00 O2 Del Method 10/31/22 08:00 O2 Flow Rate 4 10/31/22 08:00 Oxygen Flow Rate 4 10/27/22 15:32 BMI result Body Mass Index 27.3 Objective Data Active Medications Acetaminophen (Acetaminophen 325 Mg Tablet) 650 mg PO Q6H PRN PRN Reason: Pain, Mild (Pain Scale 1-3) Last Admin: 10/31/22 09:08 Dose: 650 mg Documented By: RICKY Atorvastatin Calcium (Atorvastatin Calcium 20 Mg Tablet) 20 mg PO DAILY [facility] Last Admin: 10/31/22 08:47 Dose: 20 mg Documented By: RICKY Benzonatate (Benzonatate 100 Mg Capsule) 100 mg PO TID PRN PRN Reason: Cough Last Admin: 10/31/22 05:44 Dose: 100 mg Documented By: URBANO Albuterol Sulfate 2.5 mg/ (Ipratropium [place] 0.5 mg) 0 mg INHALE RQ4H WHILE AWAKE [facility] Last Admin: 10/31/22 08:23 Dose: 2.5 each Documented By: LENNY Diltiazem HCl (Diltiazem Hcl Cd 120 Mg Cap.Er.Deg) 120 mg PO DAILY [facility]; Protocol Last Admin: 10/31/22 08:47 Dose: 120 mg Documented By: RICKY Docusate Sodium (Docusate Sodium 100 Mg Capsule) 100 mg PO DAILY PRN PRN Reason: Constipation Ferrous Sulfate (Ferrous Sulfate 324 Mg Tablet.) 324 mg PO DAILY [facility] Last Admin: 10/31/22 08:47 Dose: 324 mg Documented By: RICKY Fluticasone/Vilanterol (Fluticasone/Vilanterol 100/25 Blst.W.Dev) 1 puff INHALE RDAILY [facility] Last Admin: 10/31/22 08:23 Dose: 1 puff Documented By: LENNY Folic Acid (Folic Acid 1 Mg Tablet) 1 mg PO DAILY [facility] Last Admin: 10/31/22 08:47 Dose: 1 mg Documented By: RICKY Guaifenesin/Dextromethorphan (Guaifenesin Dm 100/10/5 Ml 5 Ml Syrup) 5 ml PO Q4H PRN PRN Reason: Cough Last Admin: 10/31/22 05:43 Dose: 5 ml Documented By: URBANO Heparin Sodium (Porcine) (Heparin Sodium,Porcine 5,000 Unit/Ml Vial) 2,800 unit 40 unit/kg (2800 unit) IVPUSH PROTOCOL BOLUS PRN; Protocol PRN Reason: 40 unit/kg - Heparin Protocol Last Admin: 10/30/22 07:30 Dose: 2,800 unit Documented By: SYLVIA Heparin Sodium (Porcine) (Heparin Sodium,Porcine 5,000 Unit/Ml Vial) 5,700 unit 80 unit/kg (5700 unit) IVPUSH PROTOCOL BOLUS PRN; Protocol PRN Reason: 80 unit/kg - Heparin Protocol Heparin Sodium/Sodium Chloride (Heparin Sodium,Porcine/1/2ns) 25,000 unit in 250 mls @ 0 mls/hr IVCONT .Q0M [facility]; Protocol Last Admin: 10/31/22 09:09 Dose: 9 units/kg/hr, 6.39 mls/hr Documented By: RICKY Co-signed By: COTEMA Levothyroxine Sodium (Levothyroxine Sodium 25 Mcg Tablet) 25 mcg PO DAILY@0600 [facility] Last Admin: 10/31/22 05:41 Dose: 25 mcg Documented By: URBANO Methylprednisolone Sodium Succinate (Methylprednisolone Sod Succ 125 Mg/2 Ml Vial) 60 mg IVPUSH Q8H [facility] Last Admin: 10/31/22 06:00 Dose: 60 mg Documented By: URBANO Ondansetron HCl (Ondansetron Hcl 4 Mg/2 Ml Vial) 4 mg IVPUSH Q8H PRN PRN Reason: Nausea and Vomiting Last Admin: 10/28/22 08:01 Dose: 4 mg Documented By: JOBY Oseltamivir Phosphate (Oseltamivir Phosphate 75 Mg Capsule) 75 mg PO Q12H [facility] Stop: 11/01/22 18:01 Last Admin: 10/31/22 05:41 Dose: 75 mg Documented By: URBANO Sertraline HCl (Sertraline Hcl 100 Mg Tablet) 200 mg PO DAILY [facility] Last Admin: 10/31/22 08:47 Dose: 200 mg Documented By: RICKY Sodium Chloride (0.9 % Sodium Chloride Flush 3 Ml Syringe) 3 ml IVFLUSH QSHIFT [facility] Last Admin: 10/31/22 08:47 Dose: 3 ml Documented By: RICKY Tiotropium [place] (Tiotropium [place] 18 Mcg Cap.W.Dev) 1 puff INHALE RDAILY [facility] Last Admin: 10/31/22 08:23 Dose: 1 puff Documented By: LENNY Warfarin Sodium (Warfarin Sodium 5 Mg Tablet) 5 mg PO SUMOTUWEFRSA@1800 [facility] Last Admin: 10/30/22 16:11 Dose: 5 mg Documented By: ASPEN Warfarin Sodium (Warfarin Sodium 7.5 Mg Tablet) 7.5 mg PO TH@1800 [facility] Labs CBC & Chem 7: 10/29/22 05:41 10/30/22 05:53 Labs: Laboratory Results - last 24 hr 10/30/22 10/30/22 10/31/22 12:11 19:55 04:12 aPTT Heparin Protocol 108.0 H* D 53.9 D 55.1 Assessment and Plan (1) Influenza A: Status: Acute Plan Pt is a 66-year-old female with PMH significant for COPD, diastolic heart failure, Mechanical mitral valve on coumadin, 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, chronic hypoxemic respiratory failure on 2L of O2 at home, h/o afib, h/o amiodarone pulmonary and renal toxicity, hypothyroidism, mood disorder, and chronic normocytic anemia who presents to the ED today after worsening SOB for the past 3-4 days found to have influenza A and acute on chronic respiratory failure Acute on chronic respiratory failure in the setting of COPD exacerbation d/t influenza infection HX of ILD at baseline uses 2-3L of oxygen although has increased to 4 recently due to SOB Continue tamiflu Duonebs, Solumedrol scheduled currently on OxyMask, monitor and wean as tolerated to maintain O2 >92 Breo and spiriva Discussed with Pulm, saw the patient, seems like CT scan has not improved, rec continuing Solu-Medrol, respiratory therapy, check bloodwork Mechanical Mitral valve INR 3.5 stop heparin bridge continue coumadin follow INR (goal 2.5-3.5) thrombocytopenia likely r/t acute illness/flu follow CBC HTN Soft BP, hold furosemide for now Paroxysmal atrial fibrillation continue cardizem continue AC with heparin/coumadin Chronic HFpEF no acute exacerbation bp soft, lasix on hold chronic microcytic anemia H/H stable hypothyroidism continue home meds mood disorder continue home meds Full code DVT prophylaxis: Hpearin/Coumadin Attending: Dr. Butterfield Requires ongoing hospitalization for respiratory failure/treatment of Flu A Time Spent With Patient Time: Total time managing care of this patient today ____ minutes. Quality Stroke Does the patient have a stroke diagnosis?: No VTE Prior VTE?: No VTE Risk Level:: Medical - moderate - high VTE Device Contraindication: Treatment Not Indicated VTE Drug Contraindication: N/A - Med Ordered
--- NOTE | 2022-10-31 09:49 | PM.CNPUL ---
History of Present Illness History of Present Illness Consult date: 10/31/22 Chief complaint: SOB Narrative: This is an in patient pulmonary contultation. The Pt is a 66-year-old female with PMH significant for COPD, diastolic heart failure, mitral and aortic valve replacement on Coumadin, chronic hypoxemic respiratory failure on 4L of O2 at home, h/o afib, h/o amiodarone pulmonary and renal toxicity, hypothyroidism, mood disorder, and chronic normocytic anemia who presents to the ED today after worsening SOB for the past 3-4 days. Pt states that her respiratory symptoms go all the way back to June when she was put on Amiodarone for AFib.? Patient was not on oxygen at home at this time.? Patient states that she went to [facility] hospitalized for respiratory distress for greater than 5 days and prescribed home oxygen then.? SHe was ultimately diagnosed with amiodarone pulmonary and renal toxicity. Since then patient has been in an out of hospital, often for respiratory issues.? For her current ED visit, patient has issues become increasingly short of breath with exertion for the past 3-4 days despite being on 4 L of O2 at home.? She developed a productive cough 2 days ago. Patient denies chest pain/pressure, palpitations.? No fever, chills, nausea, vomiting. In the ED patient was observed to have desatted to 76% O2 on 4L nasal cannula when moved from EMS stretcher to the bed.? She was placed on an OxyMask which improved her O2 sat to 98%.? The patient was initially tachypneic with low-grade fever of 100.0. Labs were significant for no leukocytosis, H and H of 10.1/32.5, and INR subtherapeutic at 1.8.? Patient positive for influenza A.?I personally reviewed her CT of chest showed no evidence of pulmonary emboli, but revealed extensive ground-glass opacities throughout both lung moura.. They appear to be progressed when compared to her CT chest from 07/2022. Review of Systems Review of Systems: Yes all other systems are reviewed and are negative Constitutional: Constitutional: Reports as per HPI Eyes: Eyes: Reports as per HPI ENT: Reports as per HPI Cardiovascular: Cardiovascular: Reports as per HPI, Denies acrocyanosis, Denies cool extremities, Denies chest pain, Denies leg edema, Denies lightheadedness, Denies palpitations and Reports dyspnea Respiratory: Respiratory: Reports as per HPI, Reports no additional respiratory complaints, Reports cough, Denies hemoptysis and Reports dyspnea Gastrointestinal: Gastrointestinal: Reports as per HPI and Reports no additional gastrointestinal complaints Genitourinary: Genitourinary: Reports as per HPI Musculoskeletal: Musculoskeletal: Reports no additional musculoskeletal complaints and Reports as per HPI Integumentary/Breasts: Skin/Breast: Reports system reviewed and no additional complaints, except as docu Neurologic: Reports system reviewed and no additional complaints, except as documented and Reports as per HPI Psychiatric: Psychiatric: Reports no additional psychiatric complaints and Reports as per HPI Endocrine: Endocrine: Reports no additional endocrine complaints, Reports as per HPI and Denies palpitations Hematologic/Lymphatic: Hematologic/Lymphatic: Reports no additional hematologic/lymphatic complaints and Reports as per HPI Allergic/Immunologic: Allergic/Immunologic: Reports no additional allergic/immunologic complaints and Reports as per HPI PMFSH Past Medical History Medical History (HFpEF) heart failure with preserved ejection fraction Abnormal EKG Anemia Aortic stenosis Atrial flutter CHF (congestive heart failure) COPD (chronic obstructive pulmonary disease) COPD (chronic obstructive pulmonary disease) Current use of anticoagulant therapy Exercise hypoxemia Hypoxia Interstitial lung disease Obesity Paroxysmal atrial fibrillation Persistent atrial fibrillation Family History Family History Father No problems noted. Mother CVD (cardiovascular disease) Surgical History Surgical History History of sleeve gastrectomy (~2017) Hx of section Hx of mitral valve replacement (~2004) Hx of transesophageal echocardiography (SHELIA) for monitoring (~2015) S/P MVR (mitral valve replacement) Social History Social History Household Members: Family Housing: House Do you presently have visiting nurse or other home services: No Alcohol intake: never Patient Tobacco Use Status: Former Tobacco user Tobacco use type: Cigarette Advance Directives Date on File: 08/28/22 service: No Current occupational status: disabled Meds Allergies Allergy/AdvReac Type Severity Reaction Status Date / Time amiodarone Allergy Intermediate Swelling Verified 10/24/22 09:58 Active Medications: Current Medications Acetaminophen (Acetaminophen 325 Mg Tablet) 650 mg PO Q6H PRN PRN Reason: Pain, Mild (Pain Scale 1-3) Last Admin: 10/31/22 09:08 Dose: 650 mg Atorvastatin Calcium (Atorvastatin Calcium 20 Mg Tablet) 20 mg PO DAILY [facility] Last Admin: 10/31/22 08:47 Dose: 20 mg Benzonatate (Benzonatate 100 Mg Capsule) 100 mg PO TID PRN PRN Reason: Cough Last Admin: 10/31/22 05:44 Dose: 100 mg Albuterol Sulfate 2.5 mg/ (Ipratropium [place] 0.5 mg) 0 mg INHALE RQ4H WHILE AWAKE [facility] Last Admin: 10/31/22 08:23 Dose: 2.5 each Diltiazem HCl (Diltiazem Hcl Cd 120 Mg Cap.Er.Deg) 120 mg PO DAILY [facility]; Protocol Last Admin: 10/31/22 08:47 Dose: 120 mg Docusate Sodium (Docusate Sodium 100 Mg Capsule) 100 mg PO DAILY PRN PRN Reason: Constipation Ferrous Sulfate (Ferrous Sulfate 324 Mg Tablet.Dr) 324 mg PO DAILY [facility] Last Admin: 10/31/22 08:47 Dose: 324 mg Fluticasone/Vilanterol (Fluticasone/Vilanterol 100/25 Blst.W.Dev) 1 puff INHALE RDAILY [facility] Last Admin: 10/31/22 08:23 Dose: 1 puff Folic Acid (Folic Acid 1 Mg Tablet) 1 mg PO DAILY [facility] Last Admin: 10/31/22 08:47 Dose: 1 mg Guaifenesin/Dextromethorphan (Guaifenesin Dm 100/10/5 Ml 5 Ml Syrup) 5 ml PO Q4H PRN PRN Reason: Cough Last Admin: 10/31/22 05:43 Dose: 5 ml Heparin Sodium (Porcine) (Heparin Sodium,Porcine 5,000 Unit/Ml Vial) 2,800 unit 40 unit/kg (2800 unit) IVPUSH PROTOCOL BOLUS PRN; Protocol PRN Reason: 40 unit/kg - Heparin Protocol Last Admin: 10/30/22 07:30 Dose: 2,800 unit Heparin Sodium (Porcine) (Heparin Sodium,Porcine 5,000 Unit/Ml Vial) 5,700 unit 80 unit/kg (5700 unit) IVPUSH PROTOCOL BOLUS PRN; Protocol PRN Reason: 80 unit/kg - Heparin Protocol Heparin Sodium/Sodium Chloride (Heparin Sodium,Porcine/1/2ns) 25,000 unit in 250 mls @ 0 mls/hr IVCONT .Q0M [facility]; Protocol Last Admin: 10/31/22 09:09 Dose: 9 units/kg/hr, 6.39 mls/hr Levothyroxine Sodium (Levothyroxine Sodium 25 Mcg Tablet) 25 mcg PO DAILY@0600 [facility] Last Admin: 10/31/22 05:41 Dose: 25 mcg Methylprednisolone Sodium Succinate (Methylprednisolone Sod Succ 125 Mg/2 Ml Vial) 60 mg IVPUSH Q8H [facility] Last Admin: 10/31/22 06:00 Dose: 60 mg Ondansetron HCl (Ondansetron Hcl 4 Mg/2 Ml Vial) 4 mg IVPUSH Q8H PRN PRN Reason: Nausea and Vomiting Last Admin: 10/28/22 08:01 Dose: 4 mg Oseltamivir Phosphate (Oseltamivir Phosphate 75 Mg Capsule) 75 mg PO Q12H [facility] Stop: 11/01/22 18:01 Last Admin: 10/31/22 05:41 Dose: 75 mg Sertraline HCl (Sertraline Hcl 100 Mg Tablet) 200 mg PO DAILY [facility] Last Admin: 10/31/22 08:47 Dose: 200 mg Sodium Chloride (0.9 % Sodium Chloride Flush 3 Ml Syringe) 3 ml IVFLUSH QSHIFT [facility] Last Admin: 10/31/22 08:47 Dose: 3 ml Tiotropium [place] (Tiotropium [place] 18 Mcg Cap.W.Dev) 1 puff INHALE RDAILY [facility] Last Admin: 10/31/22 08:23 Dose: 1 puff Warfarin Sodium (Warfarin Sodium 5 Mg Tablet) 5 mg PO SUMOTUWEFRSA@1800 [facility] Last Admin: 10/30/22 16:11 Dose: 5 mg Warfarin Sodium (Warfarin Sodium 7.5 Mg Tablet) 7.5 mg PO TH@1800 [facility] Home Medications Medication Instructions Recorded Confirmed Last Taken Type levothyroxine 25 mcg tablet 25 mcg PO DAILY@0600 09/01/20 10/27/22 10/26/22 History atorvastatin 20 mg tablet 20 mg PO DAILY 04/26/21 10/27/22 10/26/22 History ferrous sulfate 325 mg (65 mg 325 mg PO DAILY 04/26/21 10/27/22 10/25/22 History iron) tablet sertraline 100 mg tablet 200 mg PO DAILY 04/26/21 10/27/22 10/26/22 History albuterol sulfate 90 mcg/actuation 1 puff inhalation Q4H PRN Wheezing 09/24/22 10/27/22 10/26/22 History aerosol inhaler (Ventolin HFA) fluticasone fur. 200 mcg-umeclid 1 puff inhalation DAILY 10/27/22 10/27/22 10/26/22 History 62.5 mcg-vilant 25 mcg inhalat.powder (Trelegy Ellipta) warfarin 2.5 mg tablet 5 mg PO SUMOTUWEFRSA@1800 10/27/22 10/27/22 10/26/22 History warfarin 7.5 mg tablet 7.5 mg PO TH@1800 10/27/22 10/27/22 10/26/22 History Physical Exam Vital Signs: Vital Signs: Last Vital Signs Temp 97.0 F 10/31/22 08:00 Pulse 61 10/31/22 08:33 Resp 20 10/31/22 08:33 BP 131/63 10/31/22 08:00 Pulse Ox 92 10/31/22 08:00 O2 Del Method 10/31/22 08:00 O2 Flow Rate 4 10/31/22 08:00 Oxygen Flow Rate 4 10/27/22 15:32 BMI result Body Mass Index 27.3 Const: General: cooperative, comfortable and no acute distress Orientation/consciousness: patient oriented x3 HEENT: Head: Yes normal to inspection General nose exam: No nasal polyps present and No nasal discharge present Face and sinus: Yes sinuses nontender Mouth: oropharynx normal Throat: Yes posterior oropharynx normal Eyes: General: appearance normal, both eyes and all related structures Neck: Neck: Yes trachea midline, Yes supple and Yes no JVD Thyroid: Thyroid normal Chest: Chest palpation & inspection: normal inspection of the chest and no tenderness Resp: Other: Percussion note is resonant, breath sounds are distant on both sides but, equal. No wheezes are heard . A few fine crackles over the basilar areas. Auscultation: crackles and diminished lung sounds Cardio: Jugular venous distension: no JVD Palpation: normal PMI Rate: regular rate Rhythm: regular rhythm Heart sounds: S2 normal heart sound present, Clicking heart sound present (Normal opening and closing click of [place] mitral valve) and Murmur heart sound present systolic GI: Palpation (GI): Soft to palpation, nontender, No hepatosplenomegaly present and no masses Auscultation: normal bowel sounds Back/Spine/Pelvis: Thoracic/Lumbar Spine: thoracic and lumbar spine normal to inspection Skin: General skin exam: no rashes or lesions noted and ecchymosis Neuro: General: patient oriented x3 and no focal motor deficits Cranial nerves: Yes CN's II-XII intact bilaterally Extrem: General: Yes no clubbing, cyanosis or edema Psych: Appearance: grossly normal and well kempt Speech and movement: Normal speech and movement present Results Laboratory Findings CBC and BMP: 10/29/22 05:41 10/30/22 05:53 ABG, PT/INR, D-dimer: PT/INR, D-dimer PT 24.1 SEC (10.0-13.1) H 10/30/22 05:53 INR 2.0 (0.9-1.1) H 10/30/22 05:53 Abnormal lab findings: Abnormal Labs 10/27/22 10/27/22 10/27/22 15:45 15:54 15:54 WBC RBC 3.80 L Hgb 10.1 L Hct 32.5 L MCH 26.6 L MCHC RDW 16.9 H Plt Count 154 L D Neut % (Auto) 84.8 H Lymph % (Auto) 5.7 L Lymph # (Auto) 0.4 L PT 21.0 H INR 1.8 H APTT aPTT Heparin Protocol Anion Gap BUN Random Glucose Albumin Ur Specific [place] Influenza Type A (PCR) POSITIVE A 10/27/22 10/27/22 10/28/22 15:54 21:07 00:12 WBC RBC Hgb Hct MCH MCHC RDW Plt Count Neut % (Auto) Lymph % (Auto) Lymph # (Auto) PT INR APTT aPTT Heparin Protocol 34.7 L Anion Gap BUN Random Glucose Albumin 3.3 L Ur Specific [place] >= 1.030 H Influenza Type A (PCR) 10/28/22 10/28/22 10/28/22 03:17 04:42 05:57 WBC 4.3 L RBC 3.58 L Hgb 9.4 L Hct 30.8 L MCH 26.3 L MCHC 30.5 L RDW 16.3 H Plt Count 150 L Neut % (Auto) Lymph % (Auto) Lymph # (Auto) PT INR APTT > 200.0 H* D aPTT Heparin Protocol 120.9 H* D Anion Gap BUN Random Glucose Albumin Ur Specific [place] Influenza Type A (PCR) 10/28/22 10/29/22 10/29/22 06:23 05:41 05:41 WBC RBC 3.55 L Hgb 9.5 L Hct 30.6 L MCH 26.8 L MCHC RDW 16.5 H Plt Count Neut % (Auto) Lymph % (Auto) Lymph # (Auto) PT 17.8 H INR 1.5 H APTT aPTT Heparin Protocol Anion Gap BUN 20 H Random Glucose 128 H Albumin Ur Specific [place] Influenza Type A (PCR) 10/29/22 10/30/22 10/30/22 05:41 05:53 05:53 WBC RBC Hgb Hct MCH MCHC RDW Plt Count Neut % (Auto) Lymph % (Auto) Lymph # (Auto) PT 17.8 H 24.1 H INR 1.5 H 2.0 H APTT aPTT Heparin Protocol 47.0 L D Anion Gap 11 L BUN 18 H Random Glucose Albumin Ur Specific [place] Influenza Type A (PCR) 10/30/22 12:11 WBC RBC Hgb Hct MCH MCHC RDW Plt Count Neut % (Auto) Lymph % (Auto) Lymph # (Auto) PT INR APTT aPTT Heparin Protocol 108.0 H* D Anion Gap BUN Random Glucose Albumin Ur Specific [place] Influenza Type A (PCR) Microbiology: Microbiology 10/27/22 16:18 Blood - Venous Blood Culture - Preliminary No growth after 48 hours. 10/27/22 15:53 Blood - Venous Blood Culture - Preliminary No growth after 48 hours. Assessment and Plan (1) Anemia: Status: Acute (2) Influenza A: Status: Acute (3) Hypoxia: Status: Acute (4) Pneumonitis: Status: Acute Plan Although she is presenting his influenza A, it appears that her CT chest changes have been progressing from july. MAy have another underlying process which is resulting in her ILD. She has been off the Amiodarone for now several months and would have expected some improvements by now. REC: Bloodwork continue solumedrol respiratory therapy oxygen to keep pox>90% Time Spent With Patient Time: Total time managing care of this patient today ____ minutes. Procedures Date of Service Date of Service: 10/31/22
[2022-10-31 11:15] LABS: Erythrocyte Sedimentation Rate 53 MM/HR (0-20)
[2022-10-31 11:24] LABS: INTERNATIONAL NORM RATIO 3.5 (0.9-1.1)
--- NOTE | 2022-10-31 12:21 | MHC.CLN ---
F/U PT WITH 13% SIGNIFICANT WT LOSS X 6 MONTHS. PT REPORTS DECLINE IN HEALTH 06/2022 R/T COPD WITH ACUTE HOSPITALIZATION IN [place] WITH CONTINUED SLOW DECLINE. HOWEVER, PT REMAINS [place] FOR HT WITH NO S/S MALNUTRITION AT THIS TIME DIET RX: CARDIAC-APPROPRIATE PO INTAKE 75-100% CONTINUE TO MONITOR PO INTAKE CLOSELY
--- NOTE | 2022-10-31 13:14 | MHC.CM.PN ---
PATIENT STILL REQUIRES OXY-MASK NO PLAN FOR DC TODAY
--- NOTE | 2022-10-31 15:24 | ECG_ITS ---
Test Reason : cp Blood Pressure : / mmHG Vent. Rate : 107 BPM Atrial Rate : 107 BPM P-R Int : 164 ms QRS Dur : 094 ms QT Int : 328 ms P-R-T Axes : 000 041 -44 degrees QTc Int : 437 ms Sinus tachycardia Left ventricular hypertrophy with repolarization abnormality ( [place] product , [employer]rt[employer] ) Abnormal ECG When compared with ECG of 27-OCT-2022 15:54, No significant changes seen Referred By: Angela Kirkland Electronically Signed By:ELSY GLASGOW
[2022-11-01] VITALS (9 sets, daily range): BP systolic 111–143; BP diastolic 55–76; PULSE 51–116; RESP 18–24; TEMP 36.1–36.6; O2SAT 85–99
[2022-11-01] MEDS: 0.9 % Sodium Chloride Flush 3 ML SYRINGE IVFLUSH ×4 (00:21→23:44)
[2022-11-01 06:27] LABS: INTERNATIONAL NORM RATIO 3.2 (0.9-1.1); Prothrombin Time 38.3 SEC (10.0-13.1)
[2022-11-01 06:29] LABS: PTT Heparin Drip 31.8 SEC (53-77.9)
[2022-11-01] MEDS: Oseltamivir Phosphate 75 MG CAPSULE PO ×2 (06:35→17:13)
[2022-11-01] MEDS: Levothyroxine Sodium 25 MCG TABLET PO (06:35)
[2022-11-01] MEDS: methylPREDNISolone Sod Succ 125 MG/2 ML VIAL 60 MG IVPUSH ×3 (06:35→22:15)
[2022-11-01] MEDS: Ferrous Sulfate 324 MG TABLET.DR PO (07:44)
[2022-11-01] MEDS: Benzonatate 100 MG CAPSULE PO ×2 (07:44→16:05)
[2022-11-01] MEDS: guaiFENesin DM 100/10/5 ML 5 ML SYRUP PO ×2 (07:44→16:05)
[2022-11-01] MEDS: Sertraline HCL 100 MG TABLET 200 MG PO (07:44)
[2022-11-01] MEDS: Folic Acid 1 MG TABLET PO (07:44)
[2022-11-01] MEDS: Atorvastatin Calcium 20 MG TABLET PO (07:44)
[2022-11-01] MEDS: Acetaminophen 325 MG TABLET 650 MG PO (07:51)
[2022-11-01] MEDS: Fluticasone/Vilanterol 100/25 BLST.W.DEV 1 PUFF INHALE (08:31)
--- NOTE | 2022-11-01 11:24 | HO.PM.IMPN ---
Subjective Subjective Date of Service: 11/01/22 Interval History: seen and examined this morning follow up for COPD exacerbation, Influenza A reports shortness of breath, productive cough - worse with movement, better at rest Review of Systems Review of Systems: Yes all other systems are reviewed and are negative Constitutional Constitutional: Denies chills and Denies fever(s) Cardiovascular Cardiovascular: Denies chest pain, Denies palpitations and Reports dyspnea on exertion Respiratory Respiratory: Reports cough and Reports dyspnea on exertion Gastrointestinal Gastrointestinal: Denies abdominal pain, Denies nausea and Denies vomiting Endocrine Endocrine: Denies palpitations Physical Exam Vital Signs: Vital Signs: Last Vital Signs Temp 97.1 F 11/01/22 08:00 Pulse 89 11/01/22 08:53 Resp 20 11/01/22 08:53 BP 143/66 H 11/01/22 08:00 Pulse Ox 96 11/01/22 08:00 O2 Del Method 11/01/22 08:00 O2 Flow Rate 4 11/01/22 08:00 Oxygen Flow Rate 4 10/27/22 15:32 BMI result Body Mass Index 27.3 Objective Data Active Medications Acetaminophen (Acetaminophen 325 Mg Tablet) 650 mg PO Q6H PRN PRN Reason: Pain, Mild (Pain Scale 1-3) Last Admin: 11/01/22 07:51 Dose: 650 mg Documented By: RICKY Atorvastatin Calcium (Atorvastatin Calcium 20 Mg Tablet) 20 mg PO DAILY [facility] Last Admin: 11/01/22 07:44 Dose: 20 mg Documented By: RICKY Benzonatate (Benzonatate 100 Mg Capsule) 100 mg PO TID PRN PRN Reason: Cough Last Admin: 11/01/22 07:44 Dose: 100 mg Documented By: RICKY Albuterol Sulfate 2.5 mg/ (Ipratropium [place] 0.5 mg) 0 mg INHALE RQ4H WHILE AWAKE [facility] Last Admin: 11/01/22 08:30 Dose: 2.5 each Documented By: KVNG Diltiazem HCl (Diltiazem Hcl Cd 120 Mg Cap.Er.Deg) 120 mg PO DAILY [facility]; Protocol Last Admin: 11/01/22 07:57 Dose: Not Given Documented By: RICKY Non-Admin Reason: Decreased Heart Rate Docusate Sodium (Docusate Sodium 100 Mg Capsule) 100 mg PO DAILY PRN PRN Reason: Constipation Ferrous Sulfate (Ferrous Sulfate 324 Mg Tablet.Dr) 324 mg PO DAILY [facility] Last Admin: 11/01/22 07:44 Dose: 324 mg Documented By: RICKY Fluticasone/Vilanterol (Fluticasone/Vilanterol 100/25 Blst.W.Dev) 1 puff INHALE RDAILY [facility] Last Admin: 11/01/22 08:31 Dose: 1 puff Documented By: KVNG Folic Acid (Folic Acid 1 Mg Tablet) 1 mg PO DAILY [facility] Last Admin: 11/01/22 07:44 Dose: 1 mg Documented By: RICKY Guaifenesin/Dextromethorphan (Guaifenesin Dm 100/10/5 Ml 5 Ml Syrup) 5 ml PO Q4H PRN PRN Reason: Cough Last Admin: 11/01/22 07:44 Dose: 5 ml Documented By: RICKY Levothyroxine Sodium (Levothyroxine Sodium 25 Mcg Tablet) 25 mcg PO DAILY@0600 [facility] Last Admin: 11/01/22 06:35 Dose: 25 mcg Documented By: NEEL Methylprednisolone Sodium Succinate (Methylprednisolone Sod Succ 125 Mg/2 Ml Vial) 60 mg IVPUSH Q8H [facility] Last Admin: 11/01/22 06:35 Dose: 60 mg Documented By: NEEL Ondansetron HCl (Ondansetron Hcl 4 Mg/2 Ml Vial) 4 mg IVPUSH Q8H PRN PRN Reason: Nausea and Vomiting Last Admin: 10/28/22 08:01 Dose: 4 mg Documented By: JOBY Oseltamivir Phosphate (Oseltamivir Phosphate 75 Mg Capsule) 75 mg PO Q12H [facility] Stop: 11/01/22 18:01 Last Admin: 11/01/22 06:35 Dose: 75 mg Documented By: NEEL Sertraline HCl (Sertraline Hcl 100 Mg Tablet) 200 mg PO DAILY [facility] Last Admin: 11/01/22 07:44 Dose: 200 mg Documented By: RICKY Sodium Chloride (0.9 % Sodium Chloride Flush 3 Ml Syringe) 3 ml IVFLUSH QSHIFT [facility] Last Admin: 11/01/22 07:45 Dose: 3 ml Documented By: RICKY Tiotropium [place] (Tiotropium [place] 18 Mcg Cap.W.Dev) 1 puff INHALE RDAILY [facility] Last Admin: 11/01/22 08:31 Dose: 1 puff Documented By: KVNG Warfarin Sodium (Warfarin Sodium 5 Mg Tablet) 5 mg PO SUMOTUWEFRSA@1800 [facility] Last Admin: 10/30/22 16:11 Dose: 5 mg Documented By: ASPEN Warfarin Sodium (Warfarin Sodium 7.5 Mg Tablet) 7.5 mg PO TH@1800 [facility] Labs CBC & Chem 7: 10/29/22 05:41 10/30/22 05:53 Labs: Laboratory Results - last 24 hr 10/31/22 11/01/22 10:32 05:29 PT 42.0 H 38.3 H INR 3.5 H 3.2 H aPTT Heparin Protocol 31.8 L D Assessment and Plan (1) Influenza A: Status: Acute Plan Pt is a 66-year-old female with PMH significant for COPD, diastolic heart failure, Mechanical mitral valve on coumadin, 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, chronic hypoxemic respiratory failure on 2L of O2 at home, h/o afib, h/o amiodarone pulmonary and renal toxicity, hypothyroidism, mood disorder, and chronic normocytic anemia who presents to the ED today after worsening SOB for the past 3-4 days found to have influenza A and acute on chronic respiratory failure Acute on chronic respiratory failure in the setting of COPD exacerbation d/t influenza infection HX of ILD at baseline uses 2-3L of oxygen although has increased to 4 recently due to SOB s/p tamiflu Duonebs, Solumedrol scheduled currently on OxyMask, monitor and wean as tolerated to maintain O2 >92 Breo and spiriva Discussed with Pulm, saw the patient, seems like CT scan has not improved, rec continuing Solu-Medrol, respiratory therapy, check bloodwork which is pending Mechanical Mitral valve INR 3.2 stopped heparin bridge 10/31/21 continue coumadin follow INR (goal 2.5-3.5) thrombocytopenia likely r/t acute illness/flu follow CBC HTN Soft BP, hold furosemide for now Paroxysmal atrial fibrillation continue cardizem continue AC with heparin/coumadin Chronic HFpEF no acute exacerbation bp soft, lasix on hold chronic microcytic anemia H/H stable hypothyroidism continue home meds mood disorder continue home meds Full code DVT prophylaxis: Coumadin Attending: Dr. Butterfield Requires ongoing hospitalization for respiratory failure/treatment of Flu A Time Spent With Patient Time: Total time managing care of this patient today ____ minutes. Quality Stroke Does the patient have a stroke diagnosis?: No VTE Prior VTE?: No VTE Risk Level:: Medical - moderate - high VTE Device Contraindication: Treatment Not Indicated VTE Drug Contraindication: N/A - Med Ordered
--- NOTE | 2022-11-01 15:27 | PC.NURSE ---
Addendum entered by Cheryle Brown RN 11/01/22 15:35: Patient rhythm Aflutter, HR 110. Give AM cardizem dose now per Angela MICHAELS. Original Note: HR 40's-50's Sinus David. Angela MICHAELS notified. Cardizem held this AM.
[2022-11-01] MEDS: dilTIAZem HCL CD 120 MG CAP.ER.DEG PO (15:39)
[2022-11-01] MEDS: Warfarin Sodium 7.5 MG TABLET PO (17:12)
[2022-11-01 18:24] LABS: Myeloperoxidase Antibody <1.0 AI; Proteinase 3 PR3 Antibodies <1.0 AI; Scleroderma 70 Antibody <1.0 NEG AI (<1.0 NEG)
[2022-11-02] VITALS (10 sets, daily range): BP systolic 102–135; BP diastolic 59–80; PULSE 81–122; RESP 17–20; TEMP 36.1–36.8; O2SAT 91–99
[2022-11-02] MEDS: Levothyroxine Sodium 25 MCG TABLET PO (05:01)
[2022-11-02] MEDS: methylPREDNISolone Sod Succ 125 MG/2 ML VIAL 60 MG IVPUSH ×3 (05:01→22:10)
[2022-11-02 07:12] LABS: INTERNATIONAL NORM RATIO 3.5 (0.9-1.1); Prothrombin Time 42.9 SEC (10.0-13.1)
[2022-11-02] MEDS: Sertraline HCL 100 MG TABLET 200 MG PO (07:59)
[2022-11-02] MEDS: Folic Acid 1 MG TABLET PO (07:59)
[2022-11-02] MEDS: dilTIAZem HCL CD 120 MG CAP.ER.DEG PO (07:59)
[2022-11-02] MEDS: 0.9 % Sodium Chloride Flush 3 ML SYRINGE IVFLUSH ×2 (07:59→18:22)
[2022-11-02] MEDS: Ferrous Sulfate 324 MG TABLET.DR PO (07:59)
[2022-11-02] MEDS: Atorvastatin Calcium 20 MG TABLET PO (07:59)
[2022-11-02] MEDS: Acetaminophen 325 MG TABLET 650 MG PO (08:07)
[2022-11-02] MEDS: Fluticasone/Vilanterol 100/25 BLST.W.DEV 1 PUFF INHALE (08:36)
--- NOTE | 2022-11-02 08:42 | ECG_ITS ---
Test Reason : palpitations Blood Pressure : / mmHG Vent. Rate : 120 BPM Atrial Rate : 240 BPM P-R Int : 000 ms QRS Dur : 086 ms QT Int : 322 ms P-R-T Axes : 000 039 -59 degrees QTc Int : 455 ms Atrial flutter with 2:1 A-V conduction Nonspecific ST abnormality Abnormal ECG When compared with ECG of 31-OCT-2022 15:45, No significant changes seen Referred By: Rose Garcia Electronically Signed By:ELSY GLASGOW
[2022-11-02 09:48] LABS: Anion Gap 14 (12-20); Blood Urea Nitrogen 21 mg/dL (9-16); Calcium 9.3 mg/dL (8.4-10.2); Carbon Dioxide 25 mmol/L (22-29); Chloride 106 mmol/L (96-108); Creatinine Clr Calc Pharmacy 73.4; Estimated Glomerular Filt Rate > 60; Glucose Random 110 mg/dL (60-115); Magnesium 2.3 mg/dL (1.6-2.6); Potassium 4.9 mmol/L (3.3-5.1); Sodium 140 mmol/L (135-145)
[2022-11-02 11:03] LABS: Anti Nuclear Antibody Screen NEGATIVE (NEGATIVE)
--- NOTE | 2022-11-02 11:56 | P.CONCA_ITS ---
History of Present Illness History of Present Illness Date of Service: 11/02/22 Chief complaint: SOB Narrative: This is a cardiology consultation regarding tachycardia on telemetry. Patient has fairly complicated medical history including history of mitral valve replacement and more recently transcatheter aortic valve replacement for severe aortic stenosis. She is admitted for increasing shortness of breath and she was also positive for influenza. In this context, it seems that she had tachycardia on telemetry and hence we have been consulted. Patient herself does not have any clear cardiac symptoms at this time. She does have a history of persistent atrial fibrillation but during a prior consultation, noted to be in rather sinus rhythm. She does not really feel much palpitations. Her shortness of breath itself is improved compared to the time she came to the hospital. Review of Systems Review of Systems: Yes all other systems are reviewed and are negative Constitutional: Constitutional: Reports as per HPI Eyes: Eyes: Reports as per HPI ENT: Reports as per HPI Cardiovascular: Cardiovascular: Reports as per HPI, Denies acrocyanosis, Denies cool extremities, Denies chest pain, Denies leg edema, Denies lightheadedness, Denies palpitations and Reports dyspnea Respiratory: Respiratory: Reports as per HPI, Reports no additional respiratory complaints and Reports dyspnea Gastrointestinal: Gastrointestinal: Reports as per HPI and Reports no additional gastrointestinal complaints Genitourinary: Genitourinary: Reports as per HPI Musculoskeletal: Musculoskeletal: Reports no additional musculoskeletal complaints and Reports as per HPI Integumentary/Breasts: Skin/Breast: Reports system reviewed and no additional complaints, except as docu Neurologic: Reports system reviewed and no additional complaints, except as documented and Reports as per HPI Psychiatric: Psychiatric: Reports no additional psychiatric complaints and Reports as per HPI Endocrine: Endocrine: Reports no additional endocrine complaints, Reports as per HPI and Denies palpitations Hematologic/Lymphatic: Hematologic/Lymphatic: Reports no additional hematologic/lymphatic complaints and Reports as per HPI Allergic/Immunologic: Allergic/Immunologic: Reports no additional allergic/immunologic complaints and Reports as per HPI [facility] Past Medical History Medical History (HFpEF) heart failure with preserved ejection fraction Abnormal EKG Anemia Aortic stenosis Atrial flutter CHF (congestive heart failure) COPD (chronic obstructive pulmonary disease) COPD (chronic obstructive pulmonary disease) Current use of anticoagulant therapy Exercise hypoxemia Hypoxia Interstitial lung disease Obesity Paroxysmal atrial fibrillation Persistent atrial fibrillation Family History Family History Father No problems noted. Mother CVD (cardiovascular disease) Surgical History Surgical History History of sleeve gastrectomy (~2017) Hx of section Hx of mitral valve replacement (~2004) Hx of transesophageal echocardiography (SHELIA) for monitoring (~2015) S/P MVR (mitral valve replacement) Social History Social History Household Members: Family Housing: House Do you presently have visiting nurse or other home services: No Alcohol intake: never Patient Tobacco Use Status: Former Tobacco user Tobacco use type: Cigarette Advance Directives Date on File: 08/28/22 service: No Current occupational status: disabled Meds Allergies Allergy/AdvReac Type Severity Reaction Status Date / Time amiodarone Allergy Intermediate Swelling Verified 10/24/22 09:58 Active Medications: Current Medications Acetaminophen (Acetaminophen 325 Mg Tablet) 650 mg PO Q6H PRN PRN Reason: Pain, Mild (Pain Scale 1-3) Last Admin: 11/02/22 08:07 Dose: 650 mg Atorvastatin Calcium (Atorvastatin Calcium 20 Mg Tablet) 20 mg PO DAILY [facility] Last Admin: 11/02/22 07:59 Dose: 20 mg Benzonatate (Benzonatate 100 Mg Capsule) 100 mg PO TID PRN PRN Reason: Cough Last Admin: 11/01/22 16:05 Dose: 100 mg Albuterol Sulfate 2.5 mg/ (Ipratropium [place] 0.5 mg) 0 mg INHALE RQ4H WHILE AWAKE [facility] Last Admin: 11/02/22 08:36 Dose: 2.5 each Diltiazem HCl (Diltiazem Hcl Cd 120 Mg Cap.Er.Deg) 120 mg PO DAILY [facility]; Protocol Last Admin: 11/02/22 07:59 Dose: 120 mg Docusate Sodium (Docusate Sodium 100 Mg Capsule) 100 mg PO DAILY PRN PRN Reason: Constipation Ferrous Sulfate (Ferrous Sulfate 324 Mg Tablet.Dr) 324 mg PO DAILY [facility] Last Admin: 11/02/22 07:59 Dose: 324 mg Fluticasone/Vilanterol (Fluticasone/Vilanterol 100/25 Blst.W.Dev) 1 puff INHALE RDAILY [facility] Last Admin: 11/02/22 08:36 Dose: 1 puff Folic Acid (Folic Acid 1 Mg Tablet) 1 mg PO DAILY [facility] Last Admin: 11/02/22 07:59 Dose: 1 mg Guaifenesin/Dextromethorphan (Guaifenesin Dm 100/10/5 Ml 5 Ml Syrup) 5 ml PO Q4H PRN PRN Reason: Cough Last Admin: 11/01/22 16:05 Dose: 5 ml Levothyroxine Sodium (Levothyroxine Sodium 25 Mcg Tablet) 25 mcg PO DAILY@0600 [facility] Last Admin: 11/02/22 05:01 Dose: 25 mcg Methylprednisolone Sodium Succinate (Methylprednisolone Sod Succ 125 Mg/2 Ml Vial) 60 mg IVPUSH Q8H [facility] Last Admin: 11/02/22 05:01 Dose: 60 mg Ondansetron HCl (Ondansetron Hcl 4 Mg/2 Ml Vial) 4 mg IVPUSH Q8H PRN PRN Reason: Nausea and Vomiting Last Admin: 10/28/22 08:01 Dose: 4 mg Sertraline HCl (Sertraline Hcl 100 Mg Tablet) 200 mg PO DAILY [facility] Last Admin: 11/02/22 07:59 Dose: 200 mg Sodium Chloride (0.9 % Sodium Chloride Flush 3 Ml Syringe) [facility] Last Admin: 11/02/22 07:59 Dose: 3 ml Tiotropium [place] (Tiotropium [place] 18 Mcg Cap.W.Dev) 1 puff INHALE RDAILY [facility] Last Admin: 11/02/22 08:36 Dose: 1 puff Warfarin Sodium (Warfarin Sodium 5 Mg Tablet) 5 mg PO SUMOTUWEFRSA@1800 [facility] Last Admin: 10/30/22 16:11 Dose: 5 mg Warfarin Sodium (Warfarin Sodium 7.5 Mg Tablet) 7.5 mg PO TH@1800 [facility] Last Admin: 11/01/22 17:12 Dose: 7.5 mg Warfarin Sodium (Warfarin Sodium 4 Mg Tablet) 4 mg PO ONCE@1800 ONE Stop: 11/02/22 18:01 Home Medications Medication Instructions Recorded Confirmed Last Taken Type levothyroxine 25 mcg tablet 25 mcg PO DAILY@0600 09/01/20 10/27/22 10/26/22 History atorvastatin 20 mg tablet 20 mg PO DAILY 06/10/27/22 10/26/22 History ferrous sulfate 325 mg (65 mg 325 mg PO DAILY 04/26/21 10/27/22 10/25/22 History iron) tablet sertraline 100 mg tablet 200 mg PO DAILY 04/26/21 10/27/22 10/26/22 History albuterol sulfate 90 mcg/actuation 1 puff inhalation Q4H PRN Wheezing 09/24/22 10/27/22 10/26/22 History aerosol inhaler (Ventolin HFA) fluticasone fur. 200 mcg-umeclid 1 puff inhalation DAILY 10/27/22 10/27/22 10/26/22 History 62.5 mcg-vilant 25 mcg inhalat.powder (Trelegy Ellipta) warfarin 2.5 mg tablet 5 mg PO SUMOTUWEFRSA@1800 10/27/22 10/27/22 10/26/22 Hist ory warfarin 7.5 mg tablet 7.5 mg PO TH@1800 10/27/22 10/27/22 10/26/22 History Physical Exam Vital Signs: Vital Signs: Last Vital Signs Temp 97.6 F 11/02/22 11:43 Pulse 120 H 11/02/22 11:43 Resp 19 11/02/22 11:43 BP 112/76 11/02/22 11:43 Pulse Ox 97 11/02/22 11:43 O2 Del Method 11/02/22 11:43 O2 Flow Rate 2.5 11/02/22 11:43 Oxygen Flow Rate 4 10/27/22 15:32 BMI result Body Mass Index 27.3 Const: General: comfortable and no acute distress Orientation/consciousness: patient oriented x3 HEENT: Other: Unremarkable Head: Yes normal to inspection Neck: Neck: Yes normal visual inspection Chest: Chest palpation & inspection: normal inspection of the chest Resp: Other: Basal crackles Cardio: Other: Prosthetic heart sounds noted. Palpation: normal PMI Heart sounds: S1 normal heart sound present, S2 normal heart sound present, no gallops, no murmurs and no rubs GI: Palpation (GI): Soft to palpation Back/Spine/Pelvis: Other: unremarkable Skin: General skin exam: no rashes or lesions noted Neuro: General: patient oriented x3 Extrem: General: Yes normal to inspection Psych: Mental Status: mental status grossly normal Objective Labs and Meds 10/29/22 05:41 11/02/22 09:13 Lab results: Laboratory Results - last 24 hr 10/30/22 10/31/22 11/02/22 05:53 10:04 06:14 PT 42.9 H INR 3.5 H Sodium Potassium Chloride Carbon Dioxide Anion Gap BUN Creatinine Estim Creat Clear Calc Estimated GFR Random Glucose Calcium Magnesium LONG Screen NEGATIVE Proteinase 3 (PR3) Ab <1.0 Myeloperoxidase Ab <1.0 Scl-70 Scleroderma Ab <1.0 NEG 11/02/22 09:13 PT INR Sodium 140 Potassium 4.9 Chloride 106 Carbon Dioxide 25 Anion Gap 14 BUN 21 H Creatinine 0.68 Estim Creat Clear Calc 73.4 Estimated GFR > 60 Random Glucose 110 Calcium 9.3 Magnesium 2.3 LONG Screen Proteinase 3 (PR3) Ab Myeloperoxidase Ab Scl-70 Scleroderma Ab ECG Interpretation: EKG with a ventricular rate of 120/min. Underlying rhythm probably atrial flutter. A prior EKG from 27 of October seem sinus. Assessment and Plan (1) Atrial flutter with rapid ventricular response: Status: Acute (2) Hx of mitral valve replacement: Status: Acute (3) History of transcatheter aortic valve replacement (TAVR): Status: Acute (4) Paroxysmal atrial fibrillation: Status: Acute (5) Amiodarone pulmonary toxicity: Status: Acute (6) Influenza A: Status: Acute Plan Rhythm probably atrial flutter with rapid ventricular rate. Could have been precipitated because of pulmonary issues as well as influenza. At home, she is on diltiazem ER 120 mg daily. Also on warfarin. We will add digoxin for rate control. Loading dose followed by maintenance. Hopefully, we control the rate. If not, possibly SHELIA/cardioversion but with pulmonary status, anesthesia will be at high risk. Also post cardioversion, antiarrhythmic choices will also be difficult. Discussed with Rose Garcia. Time Spent With Patient Time: Total time managing care of this patient today ____ minutes. Procedures Date of Service Date of Service: 11/02/22
--- NOTE | 2022-11-02 12:05 | MHC.CLN ---
F/U PO INTAKE 100% DIET RX: CARDIAC-APPROPRIATE CONTINUE TO MONITOR PO INTAKE CLOSELY
[2022-11-02] MEDS: Digoxin 0.25 MG TABLET PO ×2 (12:35→18:20)
--- NOTE | 2022-11-02 12:58 | P.PNIM_ITS ---
Subjective Subjective Date of Service: 11/02/22 Interval History: Seen and examined this morning Follow-up for influenza, respiratory failure Heart rate elevated this morning, patient reports palpitations. Denies chest pain Review of Systems Review of Systems: Yes all other systems are reviewed and are negative Constitutional Constitutional: Denies chills and Denies fever(s) Cardiovascular Cardiovascular: Denies chest pain and Reports palpitations Respiratory Respiratory: Reports cough Endocrine Endocrine: Reports palpitations Physical Exam Vital Signs: Vital Signs: Last Vital Signs Temp 97.6 F 11/02/22 11:43 Pulse 120 H 11/02/22 11:43 Resp 19 11/02/22 11:43 BP 112/76 11/02/22 11:43 Pulse Ox 97 11/02/22 11:43 O2 Del Method 11/02/22 11:43 O2 Flow Rate 2.5 11/02/22 11:43 Oxygen Flow Rate 4 10/27/22 15:32 BMI result Body Mass Index 27.3 Const: General: comfortable, alert and awake Nutritional Appearance: average body habitus Orientation/consciousness: patient oriented x3 Resp: Effort & Inspection: normal respiratory effort, able to speak in complete sentences and decreased respiratory effort Auscultation: clear to auscultation bilaterally Cardio: Rate: tachycardic Heart sounds: S1 normal heart sound present and S2 normal heart sound present GI: Inspection: No distended Palpation (GI): Soft to palpation and nontender Neuro: General: patient oriented x3 and CN's II-XI intact bilaterally Extrem: General: Yes no pedal edema Objective Data Active Medications Acetaminophen (Acetaminophen 325 Mg Tablet) 650 mg PO Q6H PRN PRN Reason: Pain, Mild (Pain Scale 1-3) Last Admin: 11/02/22 08:07 Dose: 650 mg Documented By: RICKY Atorvastatin Calcium (Atorvastatin Calcium 20 Mg Tablet) 20 mg PO DAILY [facility] Last Admin: 11/02/22 07:59 Dose: 20 mg Documented By: RICKY Benzonatate (Benzonatate 100 Mg Capsule) 100 mg PO TID PRN PRN Reason: Cough Last Admin: 11/01/22 16:05 Dose: 100 mg Documented By: KARIS Albuterol Sulfate 2.5 mg/ (Ipratropium [place] 0.5 mg) 0 mg INHALE RQ4H WHILE AWAKE [facility] Last Admin: 11/02/22 12:46 Dose: Not Given Documented By: ADRIÁN Non-Admin Reason: Med Not Available Digoxin (Digoxin 0.25 Mg Tablet) 0.25 mg PO Q6H [facility] Stop: 11/03/22 06:16 Last Admin: 11/02/22 12:35 Dose: 0.25 mg Documented By: RICKY Diltiazem HCl (Diltiazem Hcl Cd 120 Mg Cap.Er.Deg) 120 mg PO DAILY [facility]; Protocol Last Admin: 11/02/22 07:59 Dose: 120 mg Documented By: RICKY Docusate Sodium (Docusate Sodium 100 Mg Capsule) 100 mg PO DAILY PRN PRN Reason: Constipation Ferrous Sulfate (Ferrous Sulfate 324 Mg Tablet.Dr) 324 mg PO DAILY [facility] Last Admin: 11/02/22 07:59 Dose: 324 mg Documented By: RICKY Fluticasone/Vilanterol (Fluticasone/Vilanterol 100/25 Blst.W.Dev) 1 puff INHALE RDAILY [facility] Last Admin: 11/02/22 08:36 Dose: 1 puff Documented By: KVNG Folic Acid (Folic Acid 1 Mg Tablet) 1 mg PO DAILY [facility] Last Admin: 11/02/22 07:59 Dose: 1 mg Documented By: RICKY Guaifenesin/Dextromethorphan (Guaifenesin Dm 100/10/5 Ml 5 Ml Syrup) 5 ml PO Q4H PRN PRN Reason: Cough Last Admin: 11/01/22 16:05 Dose: 5 ml Documented By: KARIS Levothyroxine Sodium (Levothyroxine Sodium 25 Mcg Tablet) 25 mcg PO DAILY@0600 [facility] Last Admin: 11/02/22 05:01 Dose: 25 mcg Documented By: DIANA Methylprednisolone Sodium Succinate (Methylprednisolone Sod Succ 125 Mg/2 Ml Vial) 60 mg IVPUSH Q8H [facility] Last Admin: 11/02/22 05:01 Dose: 60 mg Documented By: DIANA Ondansetron HCl (Ondansetron Hcl 4 Mg/2 Ml Vial) 4 mg IVPUSH Q8H PRN PRN Reason: Nausea and Vomiting Last Admin: 10/28/22 08:01 Dose: 4 mg Documented By: JOBY Sertraline HCl (Sertraline Hcl 100 Mg Tablet) 200 mg PO DAILY [facility] Last Admin: 11/02/22 07:59 Dose: 200 mg Documented By: RICKY Sodium Chloride (0.9 % Sodium Chloride Flush 3 Ml Syringe) 3 ml IVFLUSH QSHIFT [facility] Last Admin: 11/02/22 07:59 Dose: 3 ml Documented By: RICKY Tiotropium [place] (Tiotropium [place] 18 Mcg Cap.W.Dev) 1 puff INHALE RDAILY [facility] Last Admin: 11/02/22 08:36 Dose: 1 puff Documented By: KVNG Warfarin Sodium (Warfarin Sodium 5 Mg Tablet) 5 mg PO SUMOTUWEFRSA@1800 [facility] Last Admin: 10/30/22 16:11 Dose: 5 mg Documented By: ASPEN Warfarin Sodium (Warfarin Sodium 7.5 Mg Tablet) 7.5 mg PO TH@1800 [facility] Last Admin: 11/01/22 17:12 Dose: 7.5 mg Documented By: KARIS Warfarin Sodium (Warfarin Sodium 4 Mg Tablet) 4 mg PO ONCE@1800 ONE Stop: 11/02/22 18:01 Labs 10/29/22 05:41 11/02/22 09:13 Labs: Laboratory Results - last 24 hr 10/30/22 10/31/22 11/02/22 05:53 10:04 06:14 PT 42.9 H INR 3.5 H Anion Gap Estim Creat Clear Calc Estimated GFR Random Glucose Calcium Magnesium LONG Screen NEGATIVE Proteinase 3 (PR3) Ab <1.0 Myeloperoxidase Ab <1.0 Scl-70 Scleroderma Ab <1.0 NEG 11/02/22 09:13 PT INR Anion Gap 14 Estim Creat Clear Calc 73.4 Estimated GFR > 60 Random Glucose 110 Calcium 9.3 Magnesium 2.3 LONG Screen Proteinase 3 (PR3) Ab Myeloperoxidase Ab Scl-70 Scleroderma Ab Microbiology Microbiology Results: Microbiology 10/27/22 16:18 Blood Culture - Final Blood - Venous No growth after 5 days. 10/27/22 15:53 Blood Culture - Final Blood - Venous No growth after 5 days. Assessment and Plan (1) Atrial flutter with rapid ventricular response: Status: Acute (2) Influenza A: Status: Acute (3) Hypoxia: Status: Acute Plan Pt is a 66-year-old female with PMH significant for COPD, diastolic heart failure, Mechanical mitral valve on coumadin, 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, chronic hypox emic respiratory failure on 2L of O2 at home, h/o afib, h/o amiodarone pulmonary and renal toxicity, hypothyroidism, mood disorder, and chronic normocytic anemia who presents to the ED today after worsening SOB for the past 3-4 days found to have influenza A and acute on chronic respiratory failure h/o Paroxysmal atrial fibrillation - now in atrial flutter with rapid ventricular response continue cardizem continue AC with coumadin, INR 3.5 seen by cardiology plan for digoxin loading, then maintenance dosing will check TSH Acute on chronic respiratory failure in the setting of COPD exacerbation d/t influenza infection HX of ILD at baseline uses 2-3L of oxygen although has increased to 4 recently due to SOB s/p tamiflu Duonebs, Solumedrol scheduled currently on OxyMask, monitor and wean as tolerated to maintain O2 >92 Breo and spiriva Discussed with Pulm, saw the patient, seems like CT scan has not improved, rec continuing Solu-Medrol, respiratory therapy, work up for etiology of ILD pending, previously considered amio toxicity, but this has been ruled out Mechanical Mitral valve INR 3.5 stopped heparin bridge 10/31/21 continue coumadin follow INR (goal 2.5-3.5) thrombocytopenia likely r/t acute illness/flu improved HTN Soft BP, hold furosemide for now Chronic HFpEF no acute exacerbation bp soft, lasix on hold chronic microcytic anemia H/H stable hypothyroidism continue home meds check thyroid function mood disorder continue home meds Full code DVT prophylaxis: Coumadin Attending: Dr. Butterfield Requires ongoing hospitalization for respiratory failure/treatment of Flu A / management of rapid aflutter Time Spent With Patient Time: Total time managing care of this patient today ____ minutes. Quality Stroke Does the patient have a stroke diagnosis?: No VTE Prior VTE?: No VTE Risk Level:: Medical - moderate - high VTE Device Contraindication: Treatment Not Indicated VTE Drug Contraindication: N/A - Med Ordered
[2022-11-02 13:53] LABS: TSH reflex Free T4 1.31 uIU/mL (0.32-4.0)
--- NOTE | 2022-11-02 15:16 | PC.NURSE ---
Patient reporting palpitations. HR 110's-120's. Aflutter on tele. EKG done to confirm. Cardiology consult entered. Dr. Perry ordered digoxin. Pt's HR continues to be 110's-120's Aflutter. Denies palpitations at present.
[2022-11-02 16:18] LABS: Cyclic Citrullinated Peptide <16 UNITS
[2022-11-02] MEDS: Warfarin Sodium 4 MG TABLET PO (18:21)
[2022-11-03] VITALS (10 sets, daily range): BP systolic 115–155; BP diastolic 62–77; PULSE 60–114; RESP 17–19; TEMP 36–36.6; O2SAT 91–100
--- NOTE | 2022-11-03 | ECG_ITS ---
Test Reason : CP Blood Pressure : / mmHG Vent. Rate : 069 BPM Atrial Rate : 069 BPM P-R Int : 124 ms QRS Dur : 090 ms QT Int : 362 ms P-R-T Axes : 087 039 -58 degrees QTc Int : 387 ms Normal sinus rhythm Minimal voltage criteria for LVH, may be normal variant ( Bebo product ) ST & T wave abnormality, consider inferior ischemia Abnormal ECG When compared with ECG of 02-NOV-2022 09:04, Sinus rhythm has replaced Atrial flutter Vent. rate has decreased BY 51 BPM Inverted T waves have replaced nonspecific T wave abnormality in Lateral leads Referred By: Angela Kirkland Electronically Signed By:López Lion
[2022-11-03] MEDS: Digoxin 0.25 MG TABLET PO ×2 (00:25→06:30)
[2022-11-03] MEDS: 0.9 % Sodium Chloride Flush 3 ML SYRINGE IVFLUSH ×4 (00:25→23:05)
[2022-11-03] MEDS: Levothyroxine Sodium 25 MCG TABLET PO (06:31)
[2022-11-03] MEDS: methylPREDNISolone Sod Succ 125 MG/2 ML VIAL 60 MG IVPUSH ×3 (06:31→23:04)
[2022-11-03 08:19] LABS: INTERNATIONAL NORM RATIO 4.1 (0.9-1.1); Prothrombin Time 50.5 SEC (10.0-13.1)
[2022-11-03] MEDS: Fluticasone/Vilanterol 100/25 BLST.W.DEV 1 PUFF INHALE (09:26)
[2022-11-03] MEDS: Atorvastatin Calcium 20 MG TABLET PO (10:16)
[2022-11-03] MEDS: Ferrous Sulfate 324 MG TABLET.DR PO (10:16)
[2022-11-03] MEDS: Sertraline HCL 100 MG TABLET 200 MG PO (10:16)
[2022-11-03] MEDS: Folic Acid 1 MG TABLET PO (10:17)
[2022-11-03] MEDS: dilTIAZem HCL CD 120 MG CAP.ER.DEG PO (10:17)
--- NOTE | 2022-11-03 11:13 | PM.PNCARD ---
Subjective Subjective Date of Service: 11/03/22 Interval history: Does not feel any palpitations. No angina. Shortness of breath is still present but not as bad. Review of Systems Review of Systems Yes all other systems are reviewed and are negative Constitutional: Reports as per HPI Eyes: Reports as per HPI Reports as per HPI Cardiovascular: Reports as per HPI, Denies acrocyanosis, Denies cool extremities, Denies chest pain, Denies leg edema, Denies lightheadedness, Denies palpitations and Reports dyspnea Respiratory: Reports as per HPI, Reports no additional respiratory complaints and Reports dyspnea Gastrointestinal: Reports as per HPI and Reports no additional gastrointestinal complaints Genitourinary: Reports as per HPI Musculoskeletal: Reports no additional musculoskeletal complaints and Reports as per HPI Skin/Breast: Reports system reviewed and no additional complaints, except as docu Reports system reviewed and no additional complaints, except as documented and Reports as per HPI Psychiatric: Reports no additional psychiatric complaints and Reports as per HPI Endocrine: Reports no additional endocrine complaints, Reports as per HPI and Denies palpitations Hematologic/Lymphatic: Reports no additional hematologic/lymphatic complaints and Reports as per HPI Allergic/Immunologic: Reports no additional allergic/immunologic complaints and Reports as per HPI Physical Exam Vital Signs: Last Vital Signs Temp 96.8 F 11/03/22 07:59 Pulse 109 H 11/03/22 09:26 Resp 19 11/03/22 09:26 BP 135/66 11/03/22 07:59 Pulse Ox 97 11/03/22 07:59 O2 Del Method 11/03/22 07:59 O2 Flow Rate 3.0 11/03/22 07:59 Oxygen Flow Rate 4 10/27/22 15:32 BMI result Body Mass Index 27.3 Const General: comfortable and no acute distress Orientation/consciousness: patient oriented x3 HEENT Other: Unremarkable Head: Yes normal to inspection Neck Neck: Yes normal visual inspection Chest Chest palpation & inspection: normal inspection of the chest Resp Other: Basal crackles Cardio Other: Prosthetic heart sounds noted. Palpation: normal PMI Heart sounds: S1 normal heart sound present, S2 normal heart sound present, no gallops, no murmurs and no rubs GI Palpation (GI): Soft to palpation Back/Spine/Pelvis Other: unremarkable Skin General skin exam: no rashes or lesions noted Neuro General: patient oriented x3 Extrem General: Yes normal to inspection Psych Mental Status: mental status grossly normal Objective Labs and Meds 10/29/22 05:41 11/02/22 09:13 Lab results: Laboratory Results - last 24 hr 10/30/22 10/31/22 11/02/22 05:53 10:04 09:13 PT INR TSH 1.31 Cycl Citrul Peptide IgG <16 LONG Titer TNP LONG Titer 2 TNP LONG Titer 3 TNP LONG Pattern TNP LONG Pattern 2 TNP LONG Pattern 3 TNP 11/03/22 07:51 PT 50.5 H INR 4.1 H TSH Cycl Citrul Peptide IgG LONG Titer LONG Titer 2 LONG Titer 3 LONG Pattern LONG Pattern 2 LONG Pattern 3 Progress Note: A&P Assessment and plan (1) Atrial flutter with rapid ventricular response: Status: Acute (2) Hx of mitral valve replacement: Status: Acute (3) History of transcatheter aortic valve replacement (TAVR): Status: Acute (4) Paroxysmal atrial fibrillation: Status: Acute (5) Amiodarone pulmonary toxicity: Status: Acute (6) Influenza A: Status: Acute Plan On telemetry, rate seems lower than it is today. Appears clearly to be atrial flutter. She is on diltiazem at home. Continue digoxin -loading followed by maintenance. Renal function seems normal. Do not see any strong reason for cardioversion. In the past, has had persistent atrial fibrillation. Otherwise, with regard to the mechanical mitral valve, continue anticoagulation. Also status post TAVR. With regard to question of interstitial lung disease, on supplemental oxygen as well as steroids. Pulmonary is following. Discussed with Angela Kirkland. Time Spent With Patient Time: Total time managing care of this patient today 35 minutes. Progress Note: Quality Stroke Does the patient have a stroke diagnosis?: No Procedures Date of Service Date of Service: 11/03/22
--- NOTE | 2022-11-03 11:57 | P.PNIM_ITS ---
Subjective Subjective Date of Service: 11/03/22 Interval History: Seen and examined this morning Follow-up for influenza, respiratory failure Review of Systems Review of Systems: Yes all other systems are reviewed and are negative Constitutional Constitutional: Denies chills and Denies fever(s) Cardiovascular Cardiovascular: Denies chest pain and Reports palpitations Respiratory Respiratory: Reports cough Endocrine Endocrine: Reports palpitations Physical Exam Vital Signs: Vital Signs: Last Vital Signs Temp 96.8 F 11/03/22 07:59 Pulse 109 H 11/03/22 09:26 Resp 19 11/03/22 09:26 BP 135/66 11/03/22 07:59 Pulse Ox 97 11/03/22 07:59 O2 Del Method 11/03/22 07:59 O2 Flow Rate 3.0 11/03/22 07:59 Oxygen Flow Rate 4 10/27/22 15:32 BMI result Body Mass Index 27.3 Appearing in no acute distress lung sounds dim heart regular rate rhythm, clear S1, S2 positive bowel sounds, abdomen is soft, nontender neuro patient is alert x3, no focal deficits Objective Data Active Medications Acetaminophen (Acetaminophen 325 Mg Tablet) 650 mg PO Q6H PRN PRN Reason: Pain, Mild (Pain Scale 1-3) Last Admin: 11/02/22 08:07 Dose: 650 mg Documented By: RICKY Atorvastatin Calcium (Atorvastatin Calcium 20 Mg Tablet) 20 mg PO DAILY [facility] Last Admin: 11/03/22 10:16 Dose: 20 mg Documented By: BLANCA Benzonatate (Benzonatate 100 Mg Capsule) 100 mg PO TID PRN PRN Reason: Cough Last Admin: 11/01/22 16:05 Dose: 100 mg Documented By: KARIS Albuterol Sulfate 2.5 mg/ (Ipratropium [place] 0.5 mg) 0 mg INHALE RQ4H WHILE AWAKE [facility] Last Admin: 11/03/22 09:25 Dose: 0.5 each Documented By: DAR Diltiazem HCl (Diltiazem Hcl Cd 120 Mg Cap.Er.Deg) 120 mg PO DAILY [facility]; Protocol Last Admin: 11/03/22 10:17 Dose: 120 mg Documented By: BLANCA Docusate Sodium (Docusate Sodium 100 Mg Capsule) 100 mg PO DAILY PRN PRN Reason: Constipation Ferrous Sulfate (Ferrous Sulfate 324 Mg Tablet.Dr) 324 mg PO DAILY [facility] Last Admin: 11/03/22 10:16 Dose: 324 mg Documented By: BLANCA Fluticasone/Vilanterol (Fluticasone/Vilanterol 100/25 Blst.W.Dev) 1 puff INHALE RDAILY [facility] Last Admin: 11/03/22 09:26 Dose: 1 puff Documented By: DAR Folic Acid (Folic Acid 1 Mg Tablet) 1 mg PO DAILY [facility] Last Admin: 11/03/22 10:17 Dose: 1 mg Documented By: BLANCA Guaifenesin/Dextromethorphan (Guaifenesin Dm 100/10/5 Ml 5 Ml Syrup) 5 ml PO Q4H PRN PRN Reason: Cough Last Admin: 11/01/22 16:05 Dose: 5 ml Documented By: KARIS Levothyroxine Sodium (Levothyroxine Sodium 25 Mcg Tablet) 25 mcg PO DAILY@0600 [facility] Last Admin: 11/03/22 06:31 Dose: 25 mcg Documented By: JANEL Methylprednisolone Sodium Succinate (Methylprednisolone Sod Succ 125 Mg/2 Ml Vial) 60 mg IVPUSH Q8H [facility] Last Admin: 11/03/22 06:31 Dose: 60 mg Documented By: JANEL Ondansetron HCl (Ondansetron Hcl 4 Mg/2 Ml Vial) 4 mg IVPUSH Q8H PRN PRN Reason: Nausea and Vomiting Last Admin: 10/28/22 08:01 Dose: 4 mg Documented By: JOBY Sertraline HCl (Sertraline Hcl 100 Mg Tablet) 200 mg PO DAILY [facility] Last Admin: 11/03/22 10:16 Dose: 200 mg Documented By: BLANCA Sodium Chloride (0.9 % Sodium Chloride Flush 3 Ml Syringe) 3 ml IVFLUSH QSHIFT [facility] Last Admin: 11/03/22 10:17 Dose: 3 ml Documented By: BLANCA Tiotropium [place] (Tiotropium [place] 18 Mcg Cap.W.Dev) 1 puff INHALE RDAILY [facility] Last Admin: 11/02/22 08:36 Dose: 1 puff Documented By: KVNG Warfarin Sodium (Warfarin Sodium 5 Mg Tablet) 5 mg PO SUMOTUWEFRSA@1800 [facility] Last Admin: 10/30/22 16:11 Dose: 5 mg Documented By: ASPEN Warfarin Sodium (Warfarin Sodium 7.5 Mg Tablet) 7.5 mg PO TH@1800 [facility] Last Admin: 11/01/22 17:12 Dose: 7.5 mg Documented By: KARIS Labs 10/29/22 05:41 11/02/22 09:13 Labs: Laboratory Results - last 24 hr 10/30/22 10/31/22 11/02/22 05:53 10:04 09:13 PT INR TSH 1.31 Cycl Citrul Peptide IgG <16 LONG Titer TNP LONG Titer 2 TNP LONG Titer 3 TNP LONG Pattern TNP LONG Pattern 2 TNP LONG Pattern 3 TNP 11/03/22 07:51 PT 50.5 H INR 4.1 H TSH Cycl Citrul Peptide IgG LONG Titer LONG Titer 2 LONG Titer 3 LONG Pattern LONG Pattern 2 LONG Pattern 3 Assessment and Plan (1) Atrial flutter with rapid ventricular response: Status: Acute (2) Influenza A: Status: Acute (3) Hypoxia: Status: Acute Plan Pt is a 66-year-old female with PMH significant for COPD, diastolic heart failure, Mechanical mitral valve on coumadin, 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 Resolved RVR continue cardizem Continue digoxin 125 as per cardiology normal mag and tsh Acute on chronic respiratory failure in the setting of COPD exacerbation d/t influenza infection HX of ILD at baseline uses 2-3L of oxygen although has increased to 4 recently due to SOB s/p tamiflu Duonebs, Solumedrol scheduled currently on OxyMask, monitor and wean as tolerated to maintain O2 >92 Breo and spiriva Discussed with Pulm, saw the patient, seems like CT scan has not improved, rec continuing Solu-Medrol, respiratory therapy, work up for etiology of ILD pending, previously considered amio toxicity, but this has been ruled out Mechanical Mitral valve INR 4.1 stopped heparin bridge 10/31/21 hold coumadin follow INR (goal 2.5-3.5) thrombocytopenia likely r/t acute illness/flu improved HTN Soft BP, hold furosemide for now Chronic HFpEF no acute exacerbation bp soft, lasix on hold chronic microcytic anemia H/H stable hypothyroidism continue home meds check thyroid function mood disorder continue home meds Full code DVT prophylaxis: Coumadin Attending: Dr. Connell Requires ongoing hospitalization for respiratory failure/treatment of Flu A / management of rapid aflutter Time Spent With Patient Time: Total time managing care of this patient today ____ minutes. Quality Stroke Does the patient have a stroke diagnosis?: No VTE Prior VTE?: No VTE Risk Level:: Medical - moderate - high VTE Device Contraindication: Treatment Not Indicated VTE Drug Contraindication: N/A - Med Ordered
[2022-11-03] MEDS: Benzonatate 100 MG CAPSULE PO (12:46)
[2022-11-03] MEDS: guaiFENesin DM 100/10/5 ML 5 ML SYRUP PO (12:50)
[2022-11-04] VITALS (8 sets, daily range): BP systolic 132–152; BP diastolic 63–69; PULSE 53–94; RESP 18; TEMP 35.8–36.7; O2SAT 90–100
--- NOTE | 2022-11-04 05:06 | PC.NURSE ---
heart rate in 50s and briefly dipping to 40s. bp stable and asymptomatic. Md aware.
[2022-11-04 05:59] LABS: INTERNATIONAL NORM RATIO 3.4 (0.9-1.1); Prothrombin Time 41.4 SEC (10.0-13.1)
[2022-11-04] MEDS: methylPREDNISolone Sod Succ 125 MG/2 ML VIAL 60 MG IVPUSH ×3 (06:44→22:20)
[2022-11-04] MEDS: Levothyroxine Sodium 25 MCG TABLET PO (06:44)
[2022-11-04] MEDS: Fluticasone/Vilanterol 100/25 BLST.W.DEV 1 PUFF INHALE (08:54)
--- NOTE | 2022-11-04 09:12 | P.PNIM_ITS ---
Subjective Subjective Date of Service: 11/04/22 Interval History: Seen and examined this morning Follow-up for influenza, respiratory failure Feeling better Review of Systems Review of Systems: Yes all other systems are reviewed and are negative Constitutional Constitutional: Denies chills and Denies fever(s) Cardiovascular Cardiovascular: Denies chest pain and Reports palpitations Respiratory Respiratory: Reports cough Endocrine Endocrine: Reports palpitations Physical Exam Vital Signs: Vital Signs: Last Vital Signs Temp 98.0 F 11/04/22 08:00 Pulse 94 11/04/22 08:55 Resp 18 11/04/22 08:55 BP 132/63 11/04/22 08:00 Pulse Ox 100 11/04/22 08:00 O2 Del Method 11/04/22 08:00 O2 Flow Rate 3 11/04/22 08:00 Oxygen Flow Rate 4 10/27/22 15:32 BMI result Body Mass Index 27.3 Appearing in no acute distress lung sound dim heart regular rate rhythm, clear S1, S2 positive bowel sounds, abdomen is soft, nontender neuro patient is alert x3, no focal deficits Objective Data Active Medications Acetaminophen (Acetaminophen 325 Mg Tablet) 650 mg PO Q6H PRN PRN Reason: Pain, Mild (Pain Scale 1-3) Last Admin: 11/02/22 08:07 Dose: 650 mg Documented By: RICKY Atorvastatin Calcium (Atorvastatin Calcium 20 Mg Tablet) 20 mg PO DAILY [facility] Last Admin: 11/03/22 10:16 Dose: 20 mg Documented By: BLANCA Benzonatate (Benzonatate 100 Mg Capsule) 100 mg PO TID PRN PRN Reason: Cough Last Admin: 11/03/22 12:46 Dose: 100 mg Documented By: BLANCA Albuterol Sulfate 2.5 mg/ (Ipratropium [place] 0.5 mg) 0 mg INHALE RQ4H WHILE AWAKE [facility] Last Admin: 11/04/22 08:54 Dose: 0.5 each Documented By: DAR Digoxin (Digoxin 0.125 Mg Tablet) 0.125 mg PO DAILY [facility] Diltiazem HCl (Diltiazem Hcl Cd 120 Mg Cap.Er.Deg) 120 mg PO DAILY [facility]; Protocol Last Admin: 11/03/22 10:17 Dose: 120 mg Documented By: BLANCA Docusate Sodium (Docusate Sodium 100 Mg Capsule) 100 mg PO DAILY PRN PRN Reason: Constipation Ferrous Sulfate (Ferrous Sulfate 324 Mg Tablet.Dr) 324 mg PO DAILY [facility] Last Admin: 11/03/22 10:16 Dose: 324 mg Documented By: BLANCA Fluticasone/Vilanterol (Fluticasone/Vilanterol 100/25 Blst.W.Dev) 1 puff INHALE RDAILY [facility] Last Admin: 11/04/22 08:54 Dose: 1 puff Documented By: DAR Folic Acid (Folic Acid 1 Mg Tablet) 1 mg PO DAILY [facility] Last Admin: 11/03/22 10:17 Dose: 1 mg Documented By: BLANCA Guaifenesin/Dextromethorphan (Guaifenesin Dm 100/10/5 Ml 5 Ml Syrup) 5 ml PO Q4H PRN PRN Reason: Cough Last Admin: 11/03/22 12:50 Dose: 5 ml Documented By: BLANCA Levothyroxine Sodium (Levothyroxine Sodium 25 Mcg Tablet) 25 mcg PO DAILY@0600 [facility] Last Admin: 11/04/22 06:44 Dose: 25 mcg Documented By: MATILDA Lisinopril (Lisinopril 2.5 Mg Tablet) 2.5 mg PO DAILY [facility]; Protocol Methylprednisolone Sodium Succinate (Methylprednisolone Sod Succ 125 Mg/2 Ml Vial) 60 mg IVPUSH Q8H [facility] Last Admin: 11/04/22 06:44 Dose: 60 mg Documented By: MATILDA Ondansetron HCl (Ondansetron Hcl 4 Mg/2 Ml Vial) 4 mg IVPUSH Q8H PRN PRN Reason: Nausea and Vomiting Last Admin: 10/28/22 08:01 Dose: 4 mg Documented By: JOBY Sertraline HCl (Sertraline Hcl 100 Mg Tablet) 200 mg PO DAILY [facility] Last Admin: 11/03/22 10:16 Dose: 200 mg Documented By: BLANCA Sodium Chloride (0.9 % Sodium Chloride Flush 3 Ml Syringe) 3 ml IVFLUSH QSHIFT [facility] Last Admin: 11/03/22 23:05 Dose: 3 ml Documented By: OZORALRaina Tiotropium [place] (Tiotropium [place] 18 Mcg Cap.W.Dev) 1 puff INHALE RDAILY [facility] Last Admin: 11/04/22 08:55 Dose: 1 puff Documented By: REENANCY Warfarin Sodium (Warfarin Sodium 5 Mg Tablet) 5 mg PO DAILY@1800 [facility] Labs 10/29/22 05:41 11/02/22 09:13 Labs: Laboratory Results - last 24 hr 11/04/22 05:37 PT 41.4 H INR 3.4 H Microbiology Microbiology Results: Microbiology 11/03/22 Unknown Gram Stain - Final Sputum - Expectorated Sputum Culture - Preliminary Culture in progress. 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 Resolved RVR continue cardizem Continue digoxin 125 as per cardiology normal mag and tsh Acute on chronic respiratory failure in the setting of COPD exacerbation d/t influenza infection HX of ILD at baseline uses 2-3L of oxygen although has increased to 4 recently due to SOB s/p tamiflu Duonebs, Solumedrol scheduled currently on OxyMask, monitor and wean as tolerated to maintain O2 >92 Breo and spiriva Discussed with Pulm, saw the patient, seems like CT scan has not improved, rec continuing Solu-Medrol, respiratory therapy, work up for etiology of ILD pending, previously considered amio toxicity, but this has been ruled out OOB ambulating in hallway Mechanical Mitral valve INR 3.4 stopped heparin bridge 10/31/21 coumadin follow INR (goal 2.5-3.5) thrombocytopenia likely r/t acute illness/flu improved Chronic HFpEF no acute exacerbation bp soft, lasix on hold chronic microcytic anemia H/H stable hypothyroidism continue home meds check thyroid function mood disorder continue home meds Full code DVT prophylaxis: Coumadin Attending: Dr. Connell Requires ongoing hospitalization for respiratory failure/treatment of Flu A / management of rapid aflutter Time Spent With Patient Time: Total time managing care of this patient today ____ minutes. Quality Stroke Does the patient have a stroke diagnosis?: No VTE Prior VTE?: No VTE Risk Level:: Medical - moderate - high VTE Device Contraindication: Treatment Not Indicated VTE Drug Contraindication: N/A - Med Ordered
[2022-11-04] MEDS: guaiFENesin DM 100/10/5 ML 5 ML SYRUP PO (09:28)
[2022-11-04] MEDS: Benzonatate 100 MG CAPSULE PO (09:28)
[2022-11-04] MEDS: Folic Acid 1 MG TABLET PO (09:29)
[2022-11-04] MEDS: Atorvastatin Calcium 20 MG TABLET PO (09:29)
[2022-11-04] MEDS: dilTIAZem HCL CD 120 MG CAP.ER.DEG PO (09:29)
[2022-11-04] MEDS: Sertraline HCL 100 MG TABLET 200 MG PO (09:29)
[2022-11-04] MEDS: Ferrous Sulfate 324 MG TABLET.DR PO (09:30)
[2022-11-04] MEDS: 0.9 % Sodium Chloride Flush 3 ML SYRINGE IVFLUSH ×3 (09:30→22:24)
[2022-11-04] MEDS: Docusate Sodium 100 MG CAPSULE PO (09:50)
[2022-11-04 10:19] LABS: Angiotensin Converting Enzyme 39 U/L (9-67)
--- NOTE | 2022-11-04 11:16 | PM.PNPUL ---
Subjective Subjective Date of Service: 11/04/22 Interval history: The patient was seen and examined. Clinically feeling better. Bloodwork to evaluate for ILD are negative. Still IgE and HSP pending. Will need repeat CXR and also repeat CT chest as an outpt. If the patient continues with persistent pneumonitis then need to consider further diagnostic interventions. Objective Data Labs 10/29/22 05:41 11/02/22 09:13 Labs: Laboratory Results - last 24 hr 10/31/22 11/04/22 10:32 05:37 PT 41.4 H INR 3.4 H Angiotensin Convert Enz 39 Microbiology Microbiology Results: Microbiology 11/03/22 Unknown Sputum - Expectorated Gram Stain - Final 11/03/22 Unknown Sputum - Expectorated Sputum Culture - Preliminary Culture in progress. 10/27/22 16:18 Blood - Venous Blood Culture - Final No growth after 5 days. 10/27/22 15:53 Blood - Venous Blood Culture - Final No growth after 5 days. Review of Systems Review of Systems Yes all other systems are reviewed and are negative Constitutional: Reports as per HPI Eyes: Reports as per HPI Reports as per HPI Cardiovascular: Reports as per HPI, Denies acrocyanosis, Denies cool extremities, Denies chest pain, Denies leg edema, Denies lightheadedness, Denies palpitations, Denies dyspnea and Reports dyspnea on exertion Respiratory: Reports as per HPI, Reports cough, Denies hemoptysis, Denies dyspnea and Reports dyspnea on exertion Gastrointestinal: Reports as per HPI and Reports no additional gastrointestinal complaints Genitourinary: Reports as per HPI Musculoskeletal: Reports no additional musculoskeletal complaints and Reports as per HPI Skin/Breast: Reports system reviewed and no additional complaints, except as docu Reports system reviewed and no additional complaints, except as documented and Reports as per HPI Psychiatric: Reports no additional psychiatric complaints and Reports as per HPI Endocrine: Reports no additional endocrine complaints, Reports as per HPI and Denies palpitations Hematologic/Lymphatic: Reports no additional hematologic/lymphatic complaints and Reports as per HPI Allergic/Immunologic: Reports no additional allergic/immunologic complaints and Reports as per HPI Physical Exam Vital Signs: Vital Signs: Last Vital Signs Temp 98.0 F 11/04/22 08:00 Pulse 94 11/04/22 08:55 Resp 18 11/04/22 08:55 BP 132/63 11/04/22 08:00 Pulse Ox 100 11/04/22 08:00 O2 Del Method 11/04/22 08:00 O2 Flow Rate 3 11/04/22 08:00 Oxygen Flow Rate 4 10/27/22 15:32 BMI result Body Mass Index 27.3 Appearing in no acute distress lung sound dim heart regular rate rhythm, clear S1, S2 positive bowel sounds, abdomen is soft, nontender neuro patient is alert x3, no focal deficits Procedures Date of Service Date of Service: 11/04/22 Assessment and Plan Assessment and plan (1) Acute on chronic respiratory failure with hypoxia: Status: Acute (2) Influenza A: Status: Acute (3) Pneumonitis: Status: Acute (4) Hypoxia: Status: Acute (5) COPD (chronic obstructive pulmonary disease): Status: Acute Plan Switch to PO Prednisone 40mg and decrease by 5mg every 5 days until complete continue respiratory therapy CXR tomorrow CT chest as out pt F/U pending bloodwork as outpt walking oximetry to assess oxygen need prior to d/c will request 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 Progress Note: Quality Stroke Does the patient have a stroke diagnosis?: No
[2022-11-04 12:09] LABS: Immunoglobulin E 44 kU/L (<OR=114)
[2022-11-04] MEDS: Warfarin Sodium 5 MG TABLET PO (17:36)
[2022-11-05] VITALS (10 sets, daily range): BP systolic 118–142; BP diastolic 55–76; PULSE 52–98; RESP 16–24; TEMP 36.2–37.1; O2SAT 91–97
--- NOTE | 2022-11-05 | ECG_ITS ---
Test Reason : tachy Blood Pressure : / mmHG Vent. Rate : 119 BPM Atrial Rate : 119 BPM P-R Int : 278 ms QRS Dur : 088 ms QT Int : 258 ms P-R-T Axes : 096 051 -73 degrees QTc Int : 362 ms Sinus tachycardia with 1st degree A-V block Possible Left atrial enlargement Left ventricular hypertrophy with repolarization abnormality ( Sokolow-Chavarria , Romhilt-Ortiz ) Posterior infarct , age undetermined Abnormal ECG When compared with ECG of 03-NOV-2022 13:42, MD interval has increased Vent. rate has increased BY [address] now depressed in Anterior leads Referred By: Vivien Mcnamara Electronically Signed By:López Lion
[2022-11-05] MEDS: Levothyroxine Sodium 25 MCG TABLET PO (05:37)
[2022-11-05 06:53] LABS: INTERNATIONAL NORM RATIO 2.7 (0.9-1.1); Prothrombin Time 32.7 SEC (10.0-13.1)
[2022-11-05] MEDS: methylPREDNISolone Sod Succ 125 MG/2 ML VIAL 60 MG IVPUSH (07:01)
[2022-11-05] MEDS: 0.9 % Sodium Chloride Flush 3 ML SYRINGE IVFLUSH ×3 (07:03→19:37)
[2022-11-05] MEDS: Folic Acid 1 MG TABLET PO (08:58)
[2022-11-05] MEDS: Ferrous Sulfate 324 MG TABLET.DR PO (08:58)
[2022-11-05] MEDS: dilTIAZem HCL CD 120 MG CAP.ER.DEG PO (08:58)
[2022-11-05] MEDS: Atorvastatin Calcium 20 MG TABLET PO (08:58)
[2022-11-05] MEDS: Benzonatate 100 MG CAPSULE PO ×2 (08:58→15:09)
[2022-11-05] MEDS: predniSONE 20 MG TABLET 40 MG PO (08:58)
[2022-11-05] MEDS: guaiFENesin DM 100/10/5 ML 5 ML SYRUP PO ×3 (08:59→17:43)
[2022-11-05] MEDS: Sertraline HCL 100 MG TABLET 200 MG PO (08:59)
[2022-11-05] MEDS: Furosemide 40 MG TABLET PO (08:59)
[2022-11-05] MEDS: Fluticasone/Vilanterol 100/25 BLST.W.DEV 1 PUFF INHALE (09:39)
--- NOTE | 2022-11-05 10:37 | HO.PM.IMPN ---
Subjective Subjective Date of Service: 11/05/22 Interval History: Seen and examined this morning Follow-up for influenza, respiratory failure Feeling better Review of Systems Review of Systems: Yes all other systems are reviewed and are negative Constitutional Constitutional: Denies chills and Denies fever(s) Cardiovascular Cardiovascular: Denies chest pain and Reports palpitations Respiratory Respiratory: Reports cough Endocrine Endocrine: Reports palpitations Physical Exam Vital Signs: Vital Signs: Last Vital Signs Temp 97.9 F 11/05/22 07:39 Pulse 96 11/05/22 09:41 Resp 18 11/05/22 09:41 BP 142/61 H 11/05/22 07:39 Pulse Ox 97 11/05/22 07:39 O2 Del Method 11/05/22 07:39 O2 Flow Rate 1.5 11/05/22 07:39 Oxygen Flow Rate 4 10/27/22 15:32 BMI result Body Mass Index 27.3 Appearing in no acute distress lung sounds are clear to auscultation heart regular rate rhythm, clear S1, S2 positive bowel sounds, abdomen is soft, nontender neuro patient is alert x3, no focal deficits Objective Data Active Medications Acetaminophen (Acetaminophen 325 Mg Tablet) 650 mg PO Q6H PRN PRN Reason: Pain, Mild (Pain Scale 1-3) Last Admin: 11/02/22 08:07 Dose: 650 mg Documented By: RICKY Atorvastatin Calcium (Atorvastatin Calcium 20 Mg Tablet) 20 mg PO DAILY [facility] Last Admin: 11/05/22 08:58 Dose: 20 mg Documented By: AUSTINEMA Benzonatate (Benzonatate 100 Mg Capsule) 100 mg PO TID PRN PRN Reason: Cough Last Admin: 11/05/22 08:58 Dose: 100 mg Documented By: GEORGI Albuterol Sulfate 2.5 mg/ (Ipratropium [place] 0.5 mg) 0 mg INHALE RQ4H WHILE AWAKE [facility] Last Admin: 11/05/22 09:38 Dose: 2.5 each Documented By: KVNG Diltiazem HCl (Diltiazem Hcl Cd 120 Mg Cap.Er.Deg) 120 mg PO DAILY [facility]; Protocol Last Admin: 11/05/22 08:58 Dose: 120 mg Documented By: GEORGI Docusate Sodium (Docusate Sodium 100 Mg Capsule) 100 mg PO DAILY PRN PRN Reason: Constipation Last Admin: 11/04/22 09:50 Dose: 100 mg Documented By: BLANCA Ferrous Sulfate (Ferrous Sulfate 324 Mg Tablet.Dr) 324 mg PO DAILY [facility] Last Admin: 11/05/22 08:58 Dose: 324 mg Documented By: COTEMA Fluticasone/Vilanterol (Fluticasone/Vilanterol 100/25 Blst.W.Dev) 1 puff INHALE RDAILY [facility] Last Admin: 11/05/22 09:39 Dose: 1 puff Documented By: GUIDIB Folic Acid (Folic Acid 1 Mg Tablet) 1 mg PO DAILY [facility] Last Admin: 11/05/22 08:58 Dose: 1 mg Documented By: COTEMA Furosemide (Furosemide 40 Mg Tablet) 40 mg PO DAILY [facility]; Protocol Last Admin: 11/05/22 08:59 Dose: 40 mg Documented By: COTEMA Guaifenesin/Dextromethorphan (Guaifenesin Dm 100/10/5 Ml 5 Ml Syrup) 5 ml PO Q4H PRN PRN Reason: Cough Last Admin: 11/05/22 08:59 Dose: 5 ml Documented By: COTEMA Levothyroxine Sodium (Levothyroxine Sodium 25 Mcg Tablet) 25 mcg PO DAILY@0600 [facility] Last Admin: 11/05/22 05:37 Dose: 25 mcg Documented By: ROGERIO Ondansetron HCl (Ondansetron Hcl 4 Mg/2 Ml Vial) 4 mg IVPUSH Q8H PRN PRN Reason: Nausea and Vomiting Last Admin: 10/28/22 08:01 Dose: 4 mg Documented By: COOPEB Prednisone (Prednisone 20 Mg Tablet) 40 mg PO DAILY [facility] Last Admin: 11/05/22 08:58 Dose: 40 mg Documented By: COTEMA Sertraline HCl (Sertraline Hcl 100 Mg Tablet) 200 mg PO DAILY [facility] Last Admin: 11/05/22 08:59 Dose: 200 mg Documented By: COTEMA Sodium Chloride (0.9 % Sodium Chloride Flush 3 Ml Syringe) 3 ml IVFLUSH QSHIFT [facility] Last Admin: 11/05/22 07:03 Dose: 3 ml Documented By: ROGERIO Tiotropium [place] (Tiotropium [place] 18 Mcg Cap.W.Dev) 1 puff INHALE RDAILY [facility] Last Admin: 11/05/22 09:39 Dose: 1 puff Documented By: KVGN Warfarin Sodium (Warfarin Sodium 5 Mg Tablet) 5 mg PO DAILY@1800 [facility] Last Admin: 11/04/22 17:36 Dose: 5 mg Documented By: BLANCA Labs 10/29/22 05:41 11/02/22 09:13 Labs: Laboratory Results - last 24 hr 10/30/22 11/05/22 05:53 05:25 PT 32.7 H INR 2.7 H IgE 44 Microbiology Microbiology Results: Microbiology 11/03/22 Unknown Gram Stain - Final Sputum - Expectorated Sputum Culture - Final Staphylococcus aureus Assessment and Plan (1) Atrial flutter with rapid ventricular response: Status: Acute (2) Influenza A: Status: Acute (3) Hypoxia: Status: Acute Plan Pt is a 66-year-old female with PMH significant for COPD, diastolic heart failure, Mechanical mitral valve on coumadin, 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 Doing better at baseline uses 2-3L of oxygen although has increased to 4 recently due to SOB s/p tamiflu Duonebs, Solumedrol, switched to prednisone, Breo and Spiriva currently on OxyMask, monitor and wean as tolerated to maintain O2 >92 work up for etiology of ILD neg, previously considered amio toxicity, but this has been ruled out OOB ambulating in hallway sats 88% with ambulation and higher at rest of oxygen Prednisone 40 mg daily decrease by 5 mg every 5 days Repeat chest x-ray pending Add Mucinex for dry cough HTN Initally with Soft BP now trending up restart lasix and monitor h/o Paroxysmal atrial fibrillation - atrial flutter with rapid ventricular response. Resolved RVR continue cardizem Continue digoxin 125 as per cardiology normal mag and tsh Mechanical Mitral valve INR 2.7 stopped heparin bridge 10/31/21 coumadin follow INR (goal 2.5-3.5) thrombocytopenia likely r/t acute illness/flu improved Chronic HFpEF no acute exacerbation bp soft, lasix on hold chronic microcytic anemia H/H stable hypothyroidism continue home meds check thyroid function mood disorder continue home meds Full code DVT prophylaxis: Coumadin Attending: Dr. Butterfield DISPColt plan for home when medically clear Requires ongoing hospitalization for respiratory failure/treatment of Flu A / management of rapid aflutter Time Spent With Patient Time: Total time managing care of this patient today ____ minutes. Quality Stroke Does the patient have a stroke diagnosis?: No VTE Prior VTE?: No VTE Risk Level:: Medical - moderate - high VTE Device Contraindication: Treatment Not Indicated VTE Drug Contraindication: N/A - Med Ordered
[2022-11-05 13:34] LABS: Asperg fumigatus Precip Abs NEGATIVE (NEGATIVE); Micropoly faeni Abs NEGATIVE (NEGATIVE); Pigeon serum Abs NEGATIVE (NEGATIVE); Saccharo pora viridis Abs NEGATIVE (NEGATIVE); Thermo candidus Abs NEGATIVE (NEGATIVE); Thermoa vulgaris #1 NEGATIVE (NEGATIVE)
--- NOTE | 2022-11-05 14:15 | MHC.CLN ---
F/U PO INTAKE APPEARS GOOD, USUALLY 50-100%. DIET RX: CARDIAC-APPROPRIATE CONTINUE TO MONITOR PO INTAKE CLOSELY.
--- NOTE | 2022-11-05 14:49 | PM.DS ---
DS: Providers Provider Date of Service: 11/07/22 Date of admission: 10/27/22 21:13 Primary care physician: Toño Mojica MD Consults: 11/02/22 10:15 Consult to Cardiology Routine Consulting Provider: Santi Perry Reason for consultation: tachycardia ?atrial flutter Has provider been notified: Yes Attending physician on discharge: Renny Butterfield Discharging clinician: Angela Kirkland DS: Diagnosis Discharge Diagnosis (1) Atrial flutter with rapid ventricular response: Status: Acute (2) Influenza A: Status: Acute (3) Hypoxia: Status: Acute DS: Summary Hospital Course Hospital Course: HP as per admitting provider Pt is a 66-year-old female with PMH significant for COPD, diastolic heart failure, mitral and aortic wall replacement on Coumadin, chronic hypoxemic respiratory failure on 4L of O2 at home, h/o afib, h/o amiodarone pulmonary and renal toxicity, hypothyroidism, mood disorder, and chronic normocytic anemia who presents to the ED today after worsening SOB for the past 3-4 days. Pt states that her respiratory symptoms go all the way back to June when she was put on Amiodarone for AFib.? Patient was not on oxygen at home at this time.? Patient states that she went to [facility] hospitalized for respiratory distress for greater than 5 days and prescribed home oxygen then.? He was ultimately diagnosed with amiodarone pulmonary and renal toxicity. Since then patient has been in an out of hospital, often for respiratory issues.? For her current ED visit, patient has issues become increasingly short of breath with exertion for the past 3-4 days despite being on 4 L of O2 at home.? She developed a productive cough 2 days ago. Patient denies chest pain/pressure, palpitations.? No fever, chills, nausea, vomiting. In the ED patient was observed to have desatted to 76% O2 on 4L nasal cannula when moved from EMS stretcher to the bed.? She was placed on an OxyMask which improved her O2 sat to 98%.? The patient was initially tachypneic with low-grade fever of 100.0. Labs were significant for no leukocytosis, H and H of 10.1/32.5, and INR subtherapeutic at 1.8.? Patient positive for influenza A.? CT of chest showed no evidence of pulmonary emboli, but revealed extensive ground-glass opacities throughout both lung moura, favor inflammatory/infectious etiology.? Patient be admitted to the hospital for acute on chronic hypoxic respiratory failure in the setting of influenza infection . Acute on chronic respiratory failure in the setting of COPD exacerbation d/t influenza infection. Doing better at baseline uses 2-3L of oxygen although has increased to 4 recently due to SOB s/p tamiflu Duonebs, Solumedrol, switched to prednisone, Breo and Spiriva currently on OxyMask, monitor and wean as tolerated to maintain O2 >92 work up for etiology of ILD neg, previously considered amio toxicity, but this has been ruled out OOB ambulating in hallway sats 88% with ambulation and higher at rest of oxygen Prednisone 40 mg daily decrease by 5 mg every 5 days Repeat chest x-ray pending Add Mucinex for dry cough Staph aureus bronchitis Discussed with Infectious Disease, total 10 days of oral doxycycline HTN continue home lasix h/o Paroxysmal atrial fibrillation - atrial flutter with rapid ventricular response. Resolved RVR continue cardizem Digoxin loaded then converted to subsequently stopped normal mag and tsh Mechanical Mitral valve stopped heparin bridge 10/31/21 continue coumadin follow INR (goal 2.5-3.5) thrombocytopenia likely r/t acute illness/flu improved Chronic HFpEF no acute exacerbation continue lasix chronic microcytic anemia H/H stable ? hypothyroidism continue home meds mood disorder continue home meds Time Spent with Patient Time attestation: Total time managing care of this patient today ____ minutes. Discharge coordination time: Greater than 30 minutes Quality: Safe Use of Opioids Does Pt have an Active Cancer Diagnosis on the Problem List?: No Quality: Stroke Does the patient have a stroke diagnosis?: No Physical Exam Vital Signs: Vital Signs: Last Vital Signs Temp 98 F 11/05/22 10:55 Pulse 67 11/05/22 10:55 Resp 16 11/05/22 10:55 BP 118/59 L 11/05/22 10:55 Pulse Ox 92 11/05/22 10:55 O2 Del Method 11/05/22 10:55 O2 Flow Rate 1 11/05/22 10:55 Oxygen Flow Rate 4 10/27/22 15:32 BMI result Body Mass Index 27.3 Appearing in no acute distress head is normocephalic atraumatic eyes pupils are PERRLA sclera is anicteric mouth throat mucous membranes are intact and moist neck is supple no lymphadenopathy, no JVD noted lung sounds are clear to auscultation heart regular rate rhythm, clear S1, S2 positive bowel sounds, abdomen is soft, nontender neuro patient is alert x3, no focal deficits DS: Data Data Completed and Pending Completed studies during hospitalization [Text1]: Procedures Transfusion of Nonautologous Red Blood Cells into Peripheral Vein, Percutaneous Approach (09/27/22) Labs on day of discharge: Laboratory Results - last 24 hr 10/31/22 11/05/22 10:04 05:25 PT 32.7 H INR 2.7 H G[place]n Serum IgG Ab NEGATIVE Saccharo. viridis Ab NEGATIVE T. candidus Antibody NEGATIVE T. vulgaris 1 Antibody NEGATIVE Aspergill fumigatus Ab NEGATIVE Micropolyspora faeni Ab NEGATIVE Discharge Plan Discharge Anticipated Discharge Date/Time: 11/07/22 10:15 Patient Disposition: Home, Self-Care Discharge Diagnosis: Acute on chronic respiratory failure secondary to COPD exacerbation and influenza Paroxysmal atrial fibrillation with rapid ventricular response Referrals: Mary Ellen Brumfield MD [Physician] - 1 Week Toño Mojica MD [Primary Care Provider] - 1 Week Discharge Medications: New prednisone 10 mg tablet See Taper PO DAILY Qty: 90 0RF Taper: Prednisone 40 mg daily for 5 Days and 0 Hour 35 mg daily for 5 Days and 0 Hour 30 mg daily for 5 Days and 0 Hour 25 mg daily for 5 Days and 0 Hour 20 mg daily for 5 Days 15 mg daily for 5 Days 10 mg daily for 5 Days 5 mg daily for 5 Days benzonatate 100 mg Capsule 100 mg PO TID PRN (Reason: Cough) Qty: 9 0RF doxycycline monohydrate 100 mg Capsule 100 mg PO BID Qty: 18 0RF Continued diltiazem HCl 120 mg capsule,extended release 24 hr 120 mg PO DAILY Qty: 30 5RF furosemide 40 mg tablet 40 mg PO DAILY Qty: 90 2RF Protocol: Hold for SBP< HOLD for SBP < : 90 sertraline 100 mg Tablet 200 mg PO DAILY atorvastatin 20 mg Tablet 20 mg PO DAILY ferrous sulfate 325 mg (65 mg iron) Tablet 325 mg PO DAILY folic acid 1 mg Tablet 1 mg PO DAILY Qty: 90 3RF warfarin 7.5 mg Tablet 7.5 mg PO TH@1800 warfarin 2.5 mg tablet 5 mg PO SUMOTUWEFRSA@1800 Trelegy Ellipta 200-62.5-25 mcg blister with device 1 puff inhalation DAILY levothyroxine 25 mcg tablet 25 mcg PO DAILY@0600 albuterol sulfate [Ventolin HFA] 90 mcg/actuation HFA aerosol inhaler 1 puff inhalation Q4H PRN (Reason: Wheezing) Discharge Orders: Discharge Order (Routine); Ordered 11/07/22 Ordered By: Angela Kirkland Diet: Advance to usual diet Activity on Discharge: As tolerated Stand Alone Forms: Patient Portal Discharge page Care Plan Goals: Use oxygen as needed, keep oxygen saturation greater than 88% with ambulation Health Concerns: Acute on chronic respiratory failure secondary to COPD exacerbation and influenza Paroxysmal atrial fibrillation with rapid ventricular response Staphylococcus aureus bronchitis Plan of Treatment: Follow up with primary care provider as needed Follow-up with apprentice cosmetologist, Dr. Brumfield to discuss outpatient pulmonary rehab if needed Take all medications as prescribed Assessment: See discharge summary
[2022-11-05] MEDS: Warfarin Sodium 5 MG TABLET PO (17:40)
[2022-11-05] MEDS: guaiFENesin LA 600 MG TAB.ER.12H PO (19:37)
--- NOTE | 2022-11-05 22:41 | PC.NURSE ---
I called lab technician to get an update, when noted pt to have irregular rhythms in telemonitor AF vs SR PACs 60s-120s, went to see pt and pt was asleep without her O2 on, awaken pt and encouraged to wear her O2, cardiac rhythm was unchanged and pt also had 2.3-2.5 sec pauses, HR went to 140s folled with a pause and as low as 40s, pt still asymptomatic, Vitals WNL, Dr. Mcnamara was notified, EKG done, Troponin was ordered, while EKG was being done, pt is very pissed as she was awaken, explained to her about the abnormal rhythms her monitor was showing but still being mean, EKG was sent to Dr. Mcnamara.
[2022-11-05 22:59] LABS: Troponin-I High Sensitivity 23.2 ng/L (<3.5-17.0)
[2022-11-06] VITALS (7 sets, daily range): BP systolic 103–132; BP diastolic 58–83; PULSE 59–116; RESP 18–20; TEMP 36.3–36.8; O2SAT 92–98
--- NOTE | 2022-11-06 | ECG_ITS ---
Test Reason : rhythm check Blood Pressure : / mmHG Vent. Rate : 117 BPM Atrial Rate : 117 BPM P-R Int : 114 ms QRS Dur : 092 ms QT Int : 324 ms P-R-T Axes : 078 048 248 degrees QTc Int : 451 ms Sinus tachycardia Left ventricular hypertrophy with repolarization abnormality ( Epworth product , Romhilt-Ortiz ) Abnormal ECG When compared with ECG of 05-NOV-2022 22:11, HI interval has decreased ST more depressed Lateral leads Referred By: Angela Kirkland Electronically Signed By:López Lion
[2022-11-06 06:02] LABS: Prothrombin Time 35.9 SEC (10.0-13.1)
[2022-11-06] MEDS: Levothyroxine Sodium 25 MCG TABLET PO (06:07)
[2022-11-06] MEDS: 0.9 % Sodium Chloride Flush 3 ML SYRINGE IVFLUSH ×3 (07:54→20:24)
[2022-11-06] MEDS: dilTIAZem HCL CD 120 MG CAP.ER.DEG PO (07:54)
[2022-11-06] MEDS: guaiFENesin DM 100/10/5 ML 5 ML SYRUP PO ×3 (07:54→18:16)
[2022-11-06] MEDS: guaiFENesin LA 600 MG TAB.ER.12H PO ×2 (07:54→20:22)
[2022-11-06] MEDS: Benzonatate 100 MG CAPSULE PO ×2 (07:55→15:54)
[2022-11-06] MEDS: Folic Acid 1 MG TABLET PO (07:55)
[2022-11-06] MEDS: Sertraline HCL 100 MG TABLET 200 MG PO (07:55)
[2022-11-06] MEDS: predniSONE 20 MG TABLET 40 MG PO (07:55)
[2022-11-06] MEDS: Atorvastatin Calcium 20 MG TABLET PO (07:55)
[2022-11-06] MEDS: Ferrous Sulfate 324 MG TABLET.DR PO (07:55)
[2022-11-06] MEDS: Furosemide 40 MG TABLET PO (07:55)
[2022-11-06] MEDS: Fluticasone/Vilanterol 100/25 BLST.W.DEV 1 PUFF INHALE (08:18)
[2022-11-06 10:29] LABS: MRSA Nasal PCR NEGATIVE (Negative); SA Nasal PCR POSITIVE (Negative)
--- NOTE | 2022-11-06 11:31 | MHC.CM.PN ---
Addendum entered by Roseann Rodriguez 11/06/22 16:27: Per CAITLIN willis on hold today r/t Fabrizio-MOHAMUD Original Note: Per MD rounds Discharge today self care. Family will provide transportation to home.
[2022-11-06] MEDS: Digoxin 0.125 MG TABLET PO (12:46)
--- NOTE | 2022-11-06 14:29 | P.CNID_ITS ---
History of Present Illness Data of Consult Service Date: 11/06/22 Requesting physician: Angela iKrkland Primary Care Provider: Toño Mojica MD HPI Reason for consult: cough and shortness of breath She presents with cough and shortness of breath for three days. She is normally on 4 liters oxygen at home. She has chronic lung disease and sees Pulmonary and was being treated for exacerbation of this in hospital when developed new purulent sputum in hospital. Sputum has plus three polys and plus four MSSA. She has no lobar infiltrate at this time. Review of Systems Review of Systems: Yes all other systems are reviewed and are negative FORMERLY [facility], [facility] Past Medical History Medical History (Updated 11/06/22 @ 14:33 by Chloe Gtz MD) (HFpEF) heart failure with preserved ejection fraction Abnormal EKG Anemia Aortic stenosis Atrial flutter Bronchitis due to Staphylococcus aureus CHF (congestive heart failure) COPD (chronic obstructive pulmonary disease) COPD (chronic obstructive pulmonary disease) Current use of anticoagulant therapy Exercise hypoxemia Hypoxia Interstitial lung disease Obesity Paroxysmal atrial fibrillation Persistent atrial fibrillation Family History Family History Father No problems noted. Mother CVD (cardiovascular disease) Family history: reviewed and not pertinent Surgical History Surgical History History of sleeve gastrectomy (~2017) Hx of section Hx of mitral valve replacement (~2004) Hx of transesophageal echocardiography (SHELIA) for monitoring (~2015) S/P MVR (mitral valve replacement) Social History Social History Household Members: Family Housing: House Do you presently have visiting nurse or other home services: No Alcohol intake: never Patient Tobacco Use Status: Former Tobacco user Tobacco use type: Cigarette Advance Directives Date on File: 08/28/22 service: No Current occupational status: disabled Meds Allergies Allergy/AdvReac Type Severity Reaction Status Date / Time amiodarone Allergy Intermediate Swelling Verified 10/24/22 09:58 Active Medications: Current Medications Acetaminophen (Acetaminophen 325 Mg Tablet) 650 mg PO Q6H PRN PRN Reason: Pain, Mild (Pain Scale 1-3) Last Admin: 11/02/22 08:07 Dose: 650 mg Atorvastatin Calcium (Atorvastatin Calcium 20 Mg Tablet) 20 mg PO DAILY [facility] Last Admin: 11/06/22 07:55 Dose: 20 mg Benzonatate (Benzonatate 100 Mg Capsule) 100 mg PO TID PRN PRN Reason: Cough Last Admin: 11/06/22 07:55 Dose: 100 mg Albuterol Sulfate 2.5 mg/ (Ipratropium Cos Cob 0.5 mg) 0 mg INHALE RQ4H WHILE AWAKE [facility] Last Admin: 11/06/22 11:53 Dose: 2.5 each Digoxin (Digoxin 0.125 Mg Tablet) 0.125 mg PO DAILY [facility] Last Admin: 11/06/22 12:46 Dose: 0.125 mg Diltiazem HCl (Diltiazem Hcl Cd 120 Mg Cap.Er.Deg) 120 mg PO DAILY [facility]; Protocol Last Admin: 11/06/22 07:54 Dose: 120 mg Docusate Sodium (Docusate Sodium 100 Mg Capsule) 100 mg PO DAILY PRN PRN Reason: Constipation Last Admin: 11/04/22 09:50 Dose: 100 mg Ferrous Sulfate (Ferrous Sulfate 324 Mg Tablet.Dr) 324 mg PO DAILY [facility] Last Admin: 11/06/22 07:55 Dose: 324 mg Fluticasone/Vilanterol (Fluticasone/Vilanterol 100/25 Blst.W.Dev) 1 puff INHALE RDAILY [facility] Last Admin: 11/06/22 08:18 Dose: 1 puff Folic Acid (Folic Acid 1 Mg Tablet) 1 mg PO DAILY [facility] Last Admin: 11/06/22 07:55 Dose: 1 mg Furosemide (Furosemide 40 Mg Tablet) 40 mg PO DAILY [facility]; Protocol Last Admin: 11/06/22 07:55 Dose: 40 mg Guaifenesin (Guaifenesin La 600 Mg Tab.Er.12h) 600 mg PO BID [facility] Last Admin: 11/06/22 07:54 Dose: 600 mg Guaifenesin/Dextromethorphan (Guaifenesin Dm 100/10/5 Ml 5 Ml Syrup) 5 ml PO Q4H PRN PRN Reason: Cough Last Admin: 11/06/22 12:46 Dose: 5 ml Levothyroxine Sodium (Levothyroxine Sodium 25 Mcg Tablet) 25 mcg PO DAILY@0600 [facility] Last Admin: 11/06/22 06:07 Dose: 25 mcg Ondansetron HCl (Ondansetron Hcl 4 Mg/2 Ml Vial) 4 mg IVPUSH Q8H PRN PRN Reason: Nausea and Vomiting Last Admin: 10/28/22 08:01 Dose: 4 mg Prednisone (Prednisone 20 Mg Tablet) 40 mg PO DAILY [facility] Last Admin: 11/06/22 07:55 Dose: 40 mg Sertraline HCl (Sertraline Hcl 100 Mg Tablet) 200 mg PO DAILY [facility] Last Admin: 11/06/22 07:55 Dose: 200 mg Sodium Chloride (0.9 % Sodium Chloride Flush 3 Ml Syringe) 3 ml IVFLUSH QSHIFT [facility] Last Admin: 11/06/22 07:54 Dose: 3 ml Tiotropium Cos Cob (Tiotropium Cos Cob 18 Mcg Cap.W.Dev) 1 puff INHALE RDAILY [facility] Last Admin: 11/06/22 08:18 Dose: 1 puff Warfarin Sodium (Warfarin Sodium 5 Mg Tablet) 5 mg PO DAILY@1800 [facility] Last Admin: 11/05/22 17:40 Dose: 5 mg Home Medications Medication Instructions Recorded Confirmed Last Taken Type levothyroxine 25 mcg tablet 25 mcg PO DAILY@0600 09/01/20 10/27/22 10/26/22 History atorvastatin 20 mg tablet 20 mg PO DAILY 04/26/21 10/27/22 10/26/22 History ferrous sulfate 325 mg (65 mg 325 mg PO DAILY 04/26/21 10/27/22 10/25/22 History iron) tablet sertraline 100 mg tablet 200 mg PO DAILY 04/26/21 10/27/22 10/26/22 History albuterol sulfate 90 mcg/actuation 1 puff inhalation Q4H PRN Wheezing 09/24/22 10/27/22 10/26/22 History aerosol inhaler (Ventolin HFA) fluticasone fur. 200 mcg-umeclid 1 puff inhalation DAILY 10/27/22 10/27/22 10/26/22 History 62.5 mcg-vilant 25 mcg inhalat.powder (Trelegy Ellipta) warfarin 2.5 mg tablet 5 mg PO SUMOTUWEFRSA@1800 10/27/22 10/27/22 10/26/22 History warfarin 7.5 mg tablet 7.5 mg PO TH@1800 10/27/22 10/27/22 10/26/22 History Physical Exam Vital Signs: Vital Signs: Last Vital Signs Temp 97.5 F 11/06/22 11:05 Pulse 116 H 11/06/22 11:55 Resp 18 11/06/22 11:55 BP 108/65 11/06/22 11:05 Pulse Ox 93 11/06/22 11:05 O2 Del Method 11/06/22 11:05 O2 Flow Rate 1.0 11/06/22 11:05 Oxygen Flow Rate 4 10/27/22 15:32 BMI result Body Mass Index 27.3 Const: General: cooperative HEENT: Head: Yes normal to inspection Face and sinus: Yes normal facial exam Mouth: Normal oral and palatal mucosa present Teeth and gingiva: dentition normal Eyes: General: appearance normal, both eyes and all related structures Pupils: Equal, round and reactive pupils present Resp: Other: diminished breath sounds bases Cardio: Rate: regular rate Rhythm: regular rhythm GI: Palpation (GI): Soft to palpation and nontender : General: Yes no CVA tenderness Back/Spine/Pelvis: Back: no CVA tenderness Skin: General skin exam: no rashes or lesions noted Neuro: General: moves all extremities Cranial nerves: Yes Equal, round and reactive pupils present Extrem: General: Yes normal to inspection Psych: Appearance: grossly normal Results Labs 10/29/22 05:41 11/02/22 09:13 Microbiology Microbiology Results: Microbiology 11/03/22 Unknown Sputum - Expectorated Gram Stain - Final 11/03/22 Unknown Sputum - Expectorated Sputum Culture - Final Staphylococcus aureus 10/27/22 16:18 Blood - Venous Blood Culture - Final No growth after 5 days. 10/27/22 15:53 Blood - Venous Blood Culture - Final No growth after 5 days. Assessment and Plan (1) Bronchitis due to Staphylococcus aureus: Status: Acute She likely has acute exacerbation chronic pulmonary disease in hospital with staph aureus bronchitis She has chronic COPD (2) COPD (chronic obstructive pulmonary disease): Status: Acute (3) Acute on chronic respiratory failure with hypoxia: Status: Acute Plan Po Doxycycline 100 mg bid total 10 days Time Spent With Patient Time: Total time managing care of this patient today ____ minutes.
[2022-11-06] MEDS: Doxycycline Monohydrate 100 MG CAPSULE PO ×2 (15:54→20:22)
[2022-11-06] MEDS: Acetaminophen 325 MG TABLET 650 MG PO (16:00)
[2022-11-06] MEDS: Warfarin Sodium 5 MG TABLET PO (18:14)
[2022-11-07] VITALS: RESP 18
[2022-11-07] MEDS: Levothyroxine Sodium 25 MCG TABLET PO (05:45)
[2022-11-07] MEDS: Benzonatate 100 MG CAPSULE PO (05:48)
[2022-11-07] MEDS: guaiFENesin DM 100/10/5 ML 5 ML SYRUP PO (05:48)
[2022-11-07 06:26] LABS: INTERNATIONAL NORM RATIO 2.9 (0.9-1.1); Prothrombin Time 34.3 SEC (10.0-13.1)
[2022-11-07 07:42] VITALS: BP 110/56; PULSE 58; RESP 18; TEMP 36.2; O2SAT 99
[2022-11-07] MEDS: guaiFENesin LA 600 MG TAB.ER.12H PO (08:33)
[2022-11-07] MEDS: Doxycycline Monohydrate 100 MG CAPSULE PO (08:33)
[2022-11-07] MEDS: Sertraline HCL 100 MG TABLET 200 MG PO (08:33)
[2022-11-07] MEDS: Folic Acid 1 MG TABLET PO (08:33)
[2022-11-07] MEDS: Furosemide 40 MG TABLET PO (08:33)
[2022-11-07] MEDS: Atorvastatin Calcium 20 MG TABLET PO (08:33)
[2022-11-07] MEDS: Ferrous Sulfate 324 MG TABLET.DR PO (08:33)
[2022-11-07] MEDS: 0.9 % Sodium Chloride Flush 3 ML SYRINGE IVFLUSH (08:33)
[2022-11-07] MEDS: predniSONE 20 MG TABLET 40 MG PO (08:33)
[2022-11-07] MEDS: dilTIAZem HCL CD 120 MG CAP.ER.DEG PO (08:34)
[2022-11-07] MEDS: Fluticasone/Vilanterol 100/25 BLST.W.DEV 1 PUFF INHALE (08:51)
[2022-11-07 08:53] VITALS: PULSE 89; RESP 18; O2SAT 88
--- NOTE | 2022-11-07 11:09 | MHC.CM.PN ---
PLAN IS HOME TODAY - SELF CARE IMM 11/06 IN CHART
== END 2022-11-07 11:26 | disposition home or self-care (01) | DRG 193 ==
LOC: HO.ED 17:07 → HO.EDOVER 22:04 → HO.S3 10-28 17:55 → HO.IMC 11-03 11:34 → HO.S3 11-03 12:05
PROVIDERS: Hospitalist; Internal Medicine; Physician Assistant; Physician Assistant Medical; Admitting Provider Student in an Organized Health Care Education/Training Program; Emergency Provider Emergency Medicine; PCP Dermatology; Visit Provider Nurse Practitioner Acute Care
DX: J10.1 Influenza due to other identified influenza virus with other respiratory manifestations (principal); J96.21 Acute and chronic respiratory failure with hypoxia; J44.1 Chronic obstructive pulmonary disease with (acute) exacerbation; I50.32 Chronic diastolic (congestive) heart failure; J44.0 Chronic obstructive pulmonary disease with (acute) lower respiratory infection; I11.0 Hypertensive heart disease with heart failure; R79.1 Abnormal coagulation profile; E03.9 Hypothyroidism, unspecified; F39 Unspecified mood [affective] disorder; D50.9 Iron deficiency anemia, unspecified; J20.8 Acute bronchitis due to other specified organisms; D69.6 Thrombocytopenia, unspecified; Z99.81 Dependence on supplemental oxygen; B95.61 Methicillin susceptible Staphylococcus aureus infection as the cause of diseases classified elsewhere; Z20.822 Contact with and (suspected) exposure to COVID-19; Z98.84 Bariatric surgery status; Z95.2 Presence of prosthetic heart valve; Z87.891 Personal history of nicotine dependence; Z79.01 Long term (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; Z79.890 Hormone replacement therapy; Z79.899 Other long term (current) drug therapy
CPT/HCPCS: 0241U; 36415; 71045; 71275; 80048; 80076; 81003; 82164; 82785; 83605; 83735; 84145; 84443; 84484; 85025; 85027; 85610; 85652; 85730; 86021; 86038; 86039; 86200; 86235; 86331; 86606; 86609; 87040; 87070; 87077; 87186; 87205; 87640; 87641; 93005; 94640; 97161; 99285; J0696; J2405; J2930; J3475; Q9967

== ENCOUNTER 2022-11-07 11:17 | Outpatient (REF) | payer MEDICARE, MEDICAID, SELFPAY | END 2022-11-07 11:18 | disposition home or self-care (01) | LOC: HO.HAP 11:17 | PROVIDERS: Visit Provider Internal Medicine | DX: Z13.89 Encounter for screening for other disorder (principal) ==

== ENCOUNTER → 2022-11-12 09:22 | Outpatient (BNVA) | payer MEDICARE, MEDICAID, SELFPAY | PROVIDERS: PCP Dermatology; Visit Provider Internal Medicine | DX: Z95.2 Presence of prosthetic heart valve (principal); Z79.01 Long term (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; Z51.81 Encounter for therapeutic drug level monitoring | CPT/HCPCS: 85610; 99212 ==

== ENCOUNTER → 2022-11-14 08:55 | Outpatient (BNVA) | payer MEDICARE, MEDICAID, SELFPAY | PROVIDERS: PCP Internal Medicine; Visit Provider Internal Medicine | DX: Z95.2 Presence of prosthetic heart valve (principal); Z79.01 Long term (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; Z51.81 Encounter for therapeutic drug level monitoring | CPT/HCPCS: 85610; 99211 ==

== ENCOUNTER → 2022-11-19 08:39 | Outpatient (BNVA) | payer MEDICARE, MEDICAID, SELFPAY | PROVIDERS: PCP Internal Medicine; Visit Provider Internal Medicine | DX: Z95.2 Presence of prosthetic heart valve (principal); Z79.01 Long term (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; Z51.81 Encounter for therapeutic drug level monitoring | CPT/HCPCS: 85610; 99211 ==

== ENCOUNTER 2022-11-20 09:15 | Outpatient (REF) | payer MEDICARE, MEDICAID, SELFPAY | END 2022-11-20 09:16 | disposition home or self-care (01) | LOC: HO.HAP 09:15 | PROVIDERS: Visit Provider Internal Medicine | DX: Z13.89 Encounter for screening for other disorder (principal) ==

== ENCOUNTER → 2022-11-26 08:31 | Outpatient (BNVA) | payer MEDICARE, MEDICAID, SELFPAY | PROVIDERS: PCP Internal Medicine; Visit Provider Internal Medicine | DX: Z95.2 Presence of prosthetic heart valve (principal); Z79.01 Long term (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; Z51.81 Encounter for therapeutic drug level monitoring | CPT/HCPCS: 85610; 99211 ==

== ENCOUNTER → 2022-12-03 08:35 | Outpatient (BNVA) | payer MEDICARE, MEDICAID, SELFPAY | PROVIDERS: PCP Internal Medicine; Visit Provider Internal Medicine | DX: Z95.2 Presence of prosthetic heart valve (principal); Z79.01 Long term (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; Z51.81 Encounter for therapeutic drug level monitoring | CPT/HCPCS: 85610; 99211 ==

== ENCOUNTER → 2022-12-04 10:27 | Outpatient (BNVA) | payer MEDICARE, MEDICAID, SELFPAY | PROVIDERS: PCP Internal Medicine; Visit Provider Internal Medicine | DX: J84.9 Interstitial pulmonary disease, unspecified (principal); I50.31 Acute diastolic (congestive) heart failure; R09.02 Hypoxemia | CPT/HCPCS: 99212 ==

== ENCOUNTER 2022-12-07 10:15 | Outpatient (REF) | payer MEDICARE, MEDICAID, SELFPAY ==
--- NOTE | ~2022-12-07 | CT_ITS ---
EXAMINATION: CT CHEST WITHOUT CONTRAST CLINICAL INFORMATION: Interstitial lung disease COMPARISON: Previous chest x-ray most recent October [address] scans most recent chest CTA September 2022 TECHNIQUE: Multidetector volumetric CT imaging of the chest was done. Axial MIP volume rendering provided. Sagittal and coronal reformatted images were obtained. This CT examination was performed using dose optimization techniques as appropriate, variously including the following: *Automated exposure control *Adjustment of mA and/or kV according to patient size (this includes techniques or standardized protocols for targeted exams where dose is matched to indication/reason for exam; i.e. extremities or head) *Use of iterative reconstruction technique DLP: 167 mGy-cm FINDINGS: LUNGS: There is evidence of mild emphysema. There is interval improvement in the previously identified diffuse groundglass attenuation and increased interstitial markings compared to most recent exam September 2022. Mild residual changes are still present, greatest in the right upper lobe. There is question of a peribronchial nodule versus prominent left upper lobe vessel. This measures 6 mm for example axial image 43 series 6. There is a 2 mm peripheral or subpleural right upper lobe nodule axial image 56 series 6. There is a 1 cm groundglass attenuation right upper lobe nodule axial image 62 series 6. MEDIASTINUM: Slightly enlarged heart. Postsurgical changes with aortic valve stent graft and mitral and tricuspid valve replacements. Peripheral calcification in the left atrium. Mild coronary artery calcification. No pericardial effusion. Normal caliber thoracic aorta. Prominent pulmonary arteries, main pulmonary artery measuring 4.5 cm questionable for pulmonary artery hypertension. Small mediastinal lymph nodes. These appear significantly decreased from prior exams. Evaluation for hilar adenopathy is limited without contrast. CORONARY ARTERY CALCIFICATION: Mild PLEURA: There is no pleural effusion. No pleural mass or thickening. Right diaphragmatic hernia containing fat. AXILLA: No lymphadenopathy. UPPER ABDOMEN: Postsurgical changes to the stomach. OSSEOUS STRUCTURES: Degenerative changes to the spine. Median sternotomy wires. CT/CT chest wo IV con IMPRESSION: Interval improvement in diffuse groundglass attenuation and increased interstitial markings compared to most recent chest CT scans. Pulmonary nodules as described above. These are difficult to compare with previous exam due to extensive groundglass attenuation and interstitial disease on prior exams. Decreasing mediastinal lymphadenopathy. Enlarged pulmonary arteries questionable for pulmonary artery hypertension. Fleischner guidelines were followed.
== END 2022-12-07 10:16 | disposition home or self-care (01) ==
LOC: HO.CT 10:15
PROVIDERS: PCP Internal Medicine; Visit Provider Internal Medicine
DX: J84.9 Interstitial pulmonary disease, unspecified (principal)
CPT/HCPCS: 71250

== ENCOUNTER → 2022-12-10 08:22 | Outpatient (BNVA) | payer MEDICARE, MEDICAID, SELFPAY | PROVIDERS: PCP Internal Medicine; Visit Provider Internal Medicine | DX: Z95.2 Presence of prosthetic heart valve (principal); Z79.01 Long term (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; Z51.81 Encounter for therapeutic drug level monitoring | CPT/HCPCS: 85610; 99211 ==

== ENCOUNTER → 2022-12-11 12:59 | Outpatient (BNVA) | payer MEDICARE, MEDICAID, SELFPAY | PROVIDERS: PCP Internal Medicine; Visit Provider Internal Medicine Cardiovascular Disease | DX: Z13.89 Encounter for screening for other disorder (principal) | CPT/HCPCS: 93005; 99212 ==

== ENCOUNTER 2022-12-11 17:31 | Inpatient (IN) | payer MEDICARE, MEDICAID, SELFPAY ==
--- NOTE | ~2022-12-11 | XR_ITS ---
EXAMINATION: XR CHEST CLINICAL INFORMATION: Shortness of breath COMPARISON: Chest radiograph 11/05/2022, CT chest 12/07/2022 TECHNIQUE: 2 views of the chest were obtained. FINDINGS: Again seen are changes of median sternotomy with TAVR along with prosthetic mitral and tricuspid valves. The heart is enlarged. No infiltrates, effusions or lung masses are seen. XR/XR chest 2V IMPRESSION: Cardiomegaly. No acute intrathoracic disease.
--- NOTE | 2022-12-11 17:36 | ECG_ITS ---
Test Reason : rapid heart rate Blood Pressure : / mmHG Vent. Rate : 075 BPM Atrial Rate : 300 BPM P-R Int : 000 ms QRS Dur : 090 ms QT Int : 332 ms P-R-T Axes : 000 042 -31 degrees QTc Int : 370 ms Atrial flutter with variable A-V block Minimal voltage criteria for LVH, may be normal variant ( [place] product ) Abnormal QRS-T angle, consider primary T wave abnormality Abnormal ECG When compared with ECG of 06-NOV-2022 09:38, Atrial flutter has replaced Sinus rhythm Vent. rate has decreased BY [address] no longer depressed in Inferior leads ST no longer depressed in Anterolateral leads T wave inversion no longer evident in Anterolateral leads Referred By: Generic ED Physician Electronically Signed By:López Lion
--- NOTE | 2022-12-11 17:51 | ED_ITS ---
HPI - Arrhythmia/Palpitations General Chief Complaint: Arrhythmia/Palpitations <Paola Betts CNP - Last Filed: 12/11/22 18:11> Stated Complaint: afib/ sent by dr <Paola Betts CNP - Last Filed: 12/11/22 1 8:11> Time Seen by Provider: 12/11/22 19:07 <Paola Betts CNP - Last Filed: 12/11/22 18:11> History of Present Illness HPI narrative: 67 year old female seen by Dr. Nelson. She is status post aortic valve replacement back in August of last year. She had a prolonged hospitalization she is on diltiazem and allergic to amiodarone. She denies chest pain or shortness of breath. She is anticoagulated status post valve replacement. She denies fever chills <Eric Collins DO - Last Filed: 12/11/22 20:29> MD complaint: rapid heart beat <Eric Collins DO - Last Filed: 12/11/22 20:29> Related Data Home Medications: Home Medications Medication Instructions Recorded Confirmed levothyroxine 25 mcg tablet 25 mcg PO DAILY@0600 09/01/20 12/11/22 atorvastatin 20 mg tablet 20 mg PO DAILY 04/26/21 12/11/22 sertraline 100 mg tablet 200 mg PO DAILY 04/26/21 12/11/22 albuterol sulfate 90 mcg/actuation 1 puff inhalation Q4H PRN Wheezing 09/24/22 12/11/22 aerosol inhaler (Ventolin HFA) fluticasone fur. 200 mcg-umeclid 1 puff inhalation DAILY 10/27/22 12/11/22 62.5 mcg-vilant 25 mcg inhalat.powder (Trelegy Ellipta) warfarin 2.5 mg tablet 5 mg PO SUMOTUWEFRSA@1800 10/27/22 12/11/22 ferrous sulfate 325 mg (65 mg 325 mg PO BID 12/10/22 12/11/22 iron) tablet Previous Rx's Medication Instructions Recorded diltiazem HCl 120 mg capsule,24 120 mg PO DAILY #30 caps 10/18/22 hr,extended release folic acid 1 mg tablet 1 mg PO DAILY #90 tabs 10/24/22 furosemide 40 mg tablet 40 mg PO DAILY #90 tabs 10/24/22 benzonatate 100 mg capsule 100 mg PO TID PRN Cough #9 caps 11/07/22 prednisone 5 mg tablet 5 mg PO DIRECTED 30 days #30 12/06/22 tabs <Paola Betts CNP - Last Filed: 12/11/22 18:11> Allergies/Adverse Reactions: Allergies Allergy/AdvReac Type Severity Reaction Status Date / Time amiodarone Allergy Intermediate Swelling Verified 12/10/22 08:35 <Paola Betts CNP - Last Filed: 12/11/22 18:11> Review of Systems Review of Systems: Review of systems: General: Patient denies any fever chills recent illness or falls Musculoskeletal: Denies back pain or body aches or other injuries HEENT: denies headache, runny nose, ear pain Respiratory: denies shortness of breath, cough Cardiovascular: no chest pain or palpitations : denies dysuria, frequency Abdomen: no nausea vomiting denies abdominal pain Extremities: no swelling, no pain Skin: no diaphoresis <Eric Collins DO - Last Filed: 12/11/22 20:29> Yes all other systems are reviewed and are negative <Eric Collins DO - Last Filed: 12/11/22 20:29> PMFSH Past Medical History Medical History: Medical History (Updated 12/11/22 @ 19:22 by Eric Collins DO) (HFpEF) heart failure with preserved ejection fraction Abnormal EKG Anemia Aortic stenosis Atrial flutter Bronchitis due to Staphylococcus aureus CHF (congestive heart failure) COPD (chronic obstructive pulmonary disease) COPD (chronic obstructive pulmonary disease) COPD (chronic obstructive pulmonary disease) Current use of anticoagulant therapy Exercise hypoxemia Exercise hypoxemia History of transcatheter aortic valve replacement (TAVR) Hypoxia Interstitial lung disease Interstitial lung disease Obesity Paroxysmal atrial fibrillation Persistent atrial fibrillation <Paola Betts CNP - Last Filed: 12/11/22 18:11> Surgical History: Surgical History (Updated 12/11/22 @ 14:07 by Luis Antonio Nelson MD) History of sleeve gastrectomy (~2017) Hx of section Hx of mitral valve replacement (~2004) Hx of transesophageal echocardiography (SHELIA) for monitoring (~2015) S/P MVR (mitral valve replacement) <Paola Betts CNP - Last Filed: 12/11/22 18:11> Family History Family History: Family History Father No problems noted. Mother CVD (cardiovascular disease) <Paola Paulyjose daniel Betts CNP - Last Filed: 12/11/22 18:11> Social History Social History: Social History Household Members: Family Housing: House Do you presently have visiting nurse or other home services: No Alcohol intake: never Patient Tobacco Use Status: Former Tobacco user Tobacco use type: Cigarette Smoked in Last 30 Days: No Use of substances other than those prescribed or required for medical reasons: No Advance Directives: No Advance Directives Information Provided: No Advance Directives Date on File: 08/28/22 service: No Current occupational status: disabled <Paola Betts CNP - Last Filed: 12/11/22 18:11> Physical Exam Vital Signs: Vital Signs: Last Vital Signs Temp 97.9 F 12/11/22 19:02 Pulse 114 H 12/11/22 20:20 Resp 20 12/11/22 20:20 BP 107/69 12/11/22 20:20 Pulse Ox 91 L 12/11/22 20:20 O2 Del Method 12/11/22 19:02 BMI result Body Mass Index 26.5 <Paola DhillonGEORGE quiles - Last Filed: 12/11/22 18:11> Vital Signs: Last Vital Signs Temp 97.9 F 12/11/22 19:02 Pulse 114 H 12/11/22 20:20 Resp 20 12/11/22 20:20 BP 107/69 12/11/22 20:20 Pulse Ox 91 L 12/11/22 20:20 O2 Del Method 12/11/22 19:02 BMI result Body Mass Index 26.5 <Eric Collins DO - Last Filed: 12/11/22 20:29> General: Well-appearing well-nourished in no signs of distress HEENT: Normocephalic atraumatic Neck: No signs of JVD, no masses no tenderness or lymphadenopathy Cardiovascular: Tachycardic irregularly irregular Respiratory: Clear to auscultation bilaterally Abdomen: Soft nontender no masses Extremities: Normal pedal pulses no signs of edema Skin: Dry warm no rashes Back: No tenderness full ROM <Eric Collins DO - Last Filed: 12/11/22 20:29> Course Course Course Narrative: This is an RME: Additional HPI, ROS, PE not included below will be defe rred to primary provider. Patient is a 67-year-old female who presents emergency department with referral from Cardiology Dr. Nelosn, in office today is noted to to have atrial fibrillation with RVR, rate 140s, intermittently she has been experiencing shortness of breath, dyspnea on exertion. During that visit, she was advised to come to the emergency department, however patient wanted to go home first. She has a history of mitral valve replacement, heart failure, on Coumadin. Per Nursing who took the expect call, there was mention of possible cardioversion. Plan: Chest x-ray, EKG, labs, viral testing <Paola Betts CNP - Last Filed: 12/11/22 18:11> Medications Administered Discontinued Medications Generic Name Dose Route Start Last Admin Trade Name Freq PRN Reason Stop Dose Admin Diltiazem HCl 20 mg 12/11/22 19:14 12/11/22 19:23 Diltiazem Hcl 50 Mg/10 Ml Vial IVPUSH 12/11/22 19:15 20 mg STAT STA Administration Diltiazem HCl 90 mg 12/11/22 19:14 12/11/22 20:20 Diltiazem Hcl Sr 90 Mg Cap.Er.12h PO 12/11/22 19:15 90 mg ONCE ONE Administration Protocol <Paola Betts CNP - Last Filed: 12/11/22 18:11> Medications Administered Discontinued Medications Generic Name Dose Route Start Last Admin Trade Name Freq PRN Reason Stop Dose Admin Diltiazem HCl 20 mg 12/11/22 19:14 12/11/22 19:23 Diltiazem Hcl 50 Mg/10 Ml Vial IVPUSH 12/11/22 19:15 20 mg STAT STA Administration Diltiazem HCl 90 mg 12/11/22 19:14 12/11/22 20:20 Diltiazem Hcl Sr 90 Mg Cap.Er.12h PO 12/11/22 19:15 90 mg ONCE ONE Administration Protocol <Eric Collins DO - Last Filed: 12/11/22 20:29> Medical Decision Making Medical Decision Making [facility] Narrative: 67 year old female with afib with RVR I will treat with oral and IV diltiazem on arrival. I will give fluids and check labs If the rate isn't controlled I will try metoprolol next and then consult cardiology. Dr. Lion agreed with plan to admit. <Eric Collins DO - Last Filed: 12/11/22 20:29> Differential Diagnosis Differential Diagnoses: The differential diagnosis associated with the presentation includes <Eric Collins DO - Last Filed: 12/11/22 20:29> Afib with RVR, cardiac tampanode, ischemia. <Eric Collins DO - Last Filed: 12/11/22 20:29> Admission/Observation Consideration of admission/observation: Escalation of care including admission/observation considered <Eric Collins DO - Last Filed: 12/11/22 20:29> I will admit HR not controlled with IV diltiazem now requiring a drip. <Eric Collins DO - Last Filed: 12/11/22 20:29> Consult Healthcare Provider Management of the patient was discussed with: Hospitalist and System Safety Engineer <Eric Collins DO - Last Filed: 12/11/22 20:29> I spoke with Dr. Lion who agreed with the admission. <Eric Collins DO - Last Filed: 12/11/22 20:29> Lab Data [facility] Lab Attestation statement: I reviewed the patient's lab results. <Eric Collins DO - Last Filed: 12/11/22 20:29> Result Diagrams: 12/11/22 17:48 12/11/22 17:48 <Paola Betts CORONER - Last Filed: 12/11/22 18:11> Labs: Lab Results 12/11/22 12/11/22 12/11/22 Range/Units 17:48 17:48 17:48 WBC 12.9 H (4.8-10.8) X10*3/uL RBC 3.85 L (4.20-5.50) X10*6/uL Hgb 10.4 L (12.0-16.0) g/dl Hct 33.8 L (37.0-47.0) % MCV 87.8 (80.0-98.0) fL MCH 27.0 (27.0-33.0) pg MCHC 30.8 L (31.0-35.0) g/dl RDW 19.8 H (11.0-16.0) % Plt Count 296 D (160-400) X10*3/uL MPV 12.3 (9.4-12.3) fL Immature Gran % (Auto) 1.1 H (0.0-0.4) % Neut % (Auto) 86.4 H (45-73) % Lymph % (Auto) 7.4 L (20-40) % Harris % (Auto) 4.6 (2-11) % Eos % (Auto) 0.2 (0-4) % Baso % (Auto) 0.3 (0-2) % Lymph # (Auto) 1.0 L (1.2-4.9) X10*3/uL Harris # (Auto) 0.6 (0.1-1.2) X10*3/uL Eos # (Auto) 0.0 (0.0-0.4) X10*3/uL Baso # (Auto) 0.0 (0.0-0.2) X10*3/uL Abs Immat Gran (auto) 0.14 H (0.00-0.03) X10*3/uL Absolute Neuts (auto) 11.2 H (2.0-8.3) x10*3/uL Absolute Nucleated RBC 0.000 (0.0-0.012) X10*3/uL Nucleated RBC % (auto) 0.0 (0.0-0.2) /100WBC PT 27.2 H (10.0-13.1) SEC INR 2.3 H (0.9-1.1) Sodium 143 (135-145) mmol/L Potassium 4.3 (3.3-5.1) mmol/L Chloride 110 H (96-108) mmol/L Carbon Dioxide 24 (22-29) mmol/L Anion Gap 13 (12-20) BUN 14 (9-16) mg/dL Creatinine 0.82 (0.5-1.4) mg/dL Estim Creat Clear Calc 62.5 Estimated GFR > 60 Random Glucose 98 (60-115) mg/dL Calcium 9.0 (8.4-10.2) mg/dL Magnesium 2.3 (1.6-2.6) mg/dL Total Bilirubin 0.7 (0.0-1.0) mg/dL AST 29 (5-31) U/L ALT 17 (0-31) U/L Alkaline Phosphatase 90 (39-117) U/L Troponin I High Sens (<3.5-17.0) ng/L B-Natriuretic Peptide (<100) pg/mL Total Protein 6.5 (6.5-8.0) g/dL Albumin 3.8 (3.5-5.0) g/dL Lipase 14 (8-78) U/L Urine Color Urine Appearance Urine pH (5.0-9.0) Ur Specific [place] (1.005-1.025) Urine Protein (Neg-Trace) mg/dL Urine Glucose (UA) (Negative) mg/dL Urine Ketones (Negative) mg/dL Urine Blood (Negative) Urine Nitrite (Negative) Ur Leukocyte Esterase (Negative) Urine RBC (0-2) /HPF Urine WBC (0-5) /HPF Ur Squamous Epith Cells (0-2) /HPF Urine Bacteria (None Seen) Hyaline Casts (0-2) /LPF 12/11/22 12/11/22 12/11/22 Range/Units 17:48 17:48 19:07 WBC (4.8-10.8) X10*3/uL RBC (4.20-5.50) X10*6/uL Hgb (12.0-16.0) g/dl Hct (37.0-47.0) % MCV (80.0-98.0) fL MCH (27.0-33.0) pg MCHC (31.0-35.0) g/dl RDW (11.0-16.0) % Plt Count (160-400) X10*3/uL MPV (9.4-12.3) fL Immature Gran % (Auto) (0.0-0.4) % Neut % (Auto) (45-73) % Lymph % (Auto) (20-40) % Harris % (Auto) (2-11) % Eos % (Auto) (0-4) % Baso % (Auto) (0-2) % Lymph # (Auto) (1.2-4.9) X10*3/uL Harris # (Auto) (0.1-1.2) X10*3/uL Eos # (Auto) (0.0-0.4) X10*3/uL Baso # (Auto) (0.0-0.2) X10*3/uL Abs Immat Gran (auto) (0.00-0.03) X10*3/uL Absolute Neuts (auto) (2.0-8.3) x10*3/uL Absolute Nucleated RBC (0.0-0.012) X10*3/uL Nucleated RBC % (auto) (0.0-0.2) /100WBC PT (10.0-13.1) SEC INR (0.9-1.1) Sodium (135-145) mmol/L Potassium (3.3-5.1) mmol/L Chloride (96-108) mmol/L Carbon Dioxide (22-29) mmol/L Anion Gap (12-20) BUN (9-16) mg/dL Creatinine (0.5-1.4) mg/dL Estim Creat Clear Calc Estimated GFR Random Glucose (60-115) mg/dL Calcium (8.4-10.2) mg/dL Magnesium (1.6-2.6) mg/dL Total Bilirubin (0.0-1.0) mg/dL AST (5-31) U/L ALT (0-31) U/L Alkaline Phosphatase (39-117) U/L Troponin I High Sens 23.0 H (<3.5-17.0) ng/L B-Natriuretic Peptide 192 H (<100) pg/mL Total Protein (6.5-8.0) g/dL Albumin (3.5-5.0) g/dL Lipase (8-78) U/L Urine Color Yellow Urine Appearance Clear Urine pH 6.0 (5.0-9.0) Ur Specific [place] >= 1.030 H (1.005-1.025) Urine Protein Trace (Neg-Trace) mg/dL Urine Glucose (UA) Negative (Negative) mg/dL Urine Ketones Trace (Negative) mg/dL Urine Blood Negative (Negative) Urine Nitrite Negative (Negative) Ur Leukocyte Esterase Trace H (Negative) Urine RBC 0-2 (0-2) /HPF Urine WBC 0-5 (0-5) /HPF Ur Squamous Epith Cells 0-2 (0-2) /HPF Urine Bacteria None Seen (None Seen) Hyaline Casts 0-2 (0-2) /LPF <Paola Coats Alejoetta, CORONER - Last Filed: 12/11/22 18:11> Lab Results 12/11/22 12/11/22 12/11/22 Range/Units 17:48 17:48 17:48 WBC 12.9 H (4.8-10.8) X10*3/uL RBC 3.85 L (4.20-5.50) X10*6/uL Hgb 10.4 L (12.0-16.0) g/dl Hct 33.8 L (37.0-47.0) % MCV 87.8 (80.0-98.0) fL MCH 27.0 (27.0-33.0) pg MCHC 30.8 L (31.0-35.0) g/dl RDW 19.8 H (11.0-16.0) % Plt Count 296 D (160-400) X10*3/uL MPV 12.3 (9.4-12.3) fL Immature Gran % (Auto) 1.1 H (0.0-0.4) % Neut % (Auto) 86.4 H (45-73) % Lymph % (Auto) 7.4 L (20-40) % Harris % (Auto) 4.6 (2-11) % Eos % (Auto) 0.2 (0-4) % Baso % (Auto) 0.3 (0-2) % Lymph # (Auto) 1.0 L (1.2-4.9) X10*3/uL Harris # (Auto) 0.6 (0.1-1.2) X10*3/uL Eos # (Auto) 0.0 (0.0-0.4) X10*3/uL Baso # (Auto) 0.0 (0.0-0.2) X10*3/uL Abs Immat Gran (auto) 0.14 H (0.00-0.03) X10*3/uL Absolute Neuts (auto) 11.2 H (2.0-8.3) x10*3/uL Absolute Nucleated RBC 0.000 (0.0-0.012) X10*3/uL Nucleated RBC % (auto) 0.0 (0.0-0.2) /100WBC PT 27.2 H (10.0-13.1) SEC INR 2.3 H (0.9-1.1) Sodium 143 (135-145) mmol/L Potassium 4.3 (3.3-5.1) mmol/L Chloride 110 H (96-108) mmol/L Carbon Dioxide 24 (22-29) mmol/L Anion Gap 13 (12-20) BUN 14 (9-16) mg/dL Creatinine 0.82 (0.5-1.4) mg/dL Estim Creat Clear Calc 62.5 Estimated GFR > 60 Random Glucose 98 (60-115) mg/dL Calcium 9.0 (8.4-10.2) mg/dL Magnesium 2.3 (1.6-2.6) mg/dL Total Bilirubin 0.7 (0.0-1.0) mg/dL AST 29 (5-31) U/L ALT 17 (0-31) U/L Alkaline Phosphatase 90 (39-117) U/L Troponin I High Sens (<3.5-17.0) ng/L B-Natriuretic Peptide (<100) pg/mL Total Protein 6.5 (6.5-8.0) g/dL Albumin 3.8 (3.5-5.0) g/dL Lipase 14 (8-78) U/L Urine Color Urine Appearance Urine pH (5.0-9.0) Ur Specific [place] (1.005-1.025) Urine Protein (Neg-Trace) mg/dL Urine Glucose (UA) (Negative) mg/dL Urine Ketones (Negative) mg/dL Urine Blood (Negative) Urine Nitrite (Negative) Ur Leukocyte Esterase (Negative) Urine RBC (0-2) /HPF Urine WBC (0-5) /HPF Ur Squamous Epith Cells (0-2) /HPF Urine Bacteria (None Seen) Hyaline Casts (0-2) /LPF 12/11/22 12/11/22 12/11/22 Range/Units 17:48 17:48 19:07 WBC (4.8-10.8) X10*3/uL RBC (4.20-5.50) X10*6/uL Hgb (12.0-16.0) g/dl Hct (37.0-47.0) % MCV (80.0-98.0) fL MCH (27.0-33.0) pg MCHC (31.0-35.0) g/dl RDW (11.0-16.0) % Plt Count (160-400) X10*3/uL MPV (9.4-12.3) fL Immature Gran % (Auto) (0.0-0.4) % Neut % (Auto) (45-73) % Lymph % (Auto) (20-40) % Harris % (Auto) (2-11) % Eos % (Auto) (0-4) % Baso % (Auto) (0-2) % Lymph # (Auto) (1.2-4.9) X10*3/uL Harris # (Auto) (0.1-1.2) X10*3/uL Eos # (Auto) (0.0-0.4) X10*3/uL Baso # (Auto) (0.0-0.2) X10*3/uL Abs Immat Gran (auto) (0.00-0.03) X10*3/uL Absolute Neuts (auto) (2.0-8.3) x10*3/uL Absolute Nucleated RBC (0.0-0.012) X10*3/uL Nucleated RBC % (auto) (0.0-0.2) /100WBC PT (10.0-13.1) SEC INR (0.9-1.1) Sodium (135-145) mmol/L Potassium (3.3-5.1) mmol/L Chloride (96-108) mmol/L Carbon Dioxide (22-29) mmol/L Anion Gap (12-20) BUN (9-16) mg/dL Creatinine (0.5-1.4) mg/dL Estim Creat Clear Calc Estimated GFR Random Glucose (60-115) mg/dL Calcium (8.4-10.2) mg/dL Magnesium (1.6-2.6) mg/dL Total Bilirubin (0.0-1.0) mg/dL AST (5-31) U/L ALT (0-31) U/L Alkaline Phosphatase (39-117) U/L Troponin I High Sens 23.0 H (<3.5-17.0) ng/L B-Natriuretic Peptide 192 H (<100) pg/mL Total Protein (6.5-8.0) g/dL Albumin (3.5-5.0) g/dL Lipase (8-78) U/L Urine Color Yellow Urine Appearance Clear Urine pH 6.0 (5.0-9.0) Ur Specific [place] >= 1.030 H (1.005-1.025) Urine Protein Trace (Neg-Trace) mg/dL Urine Glucose (UA) Negative (Negative) mg/dL Urine Ketones Trace (Negative) mg/dL Urine Blood Negative (Negative) Urine Nitrite Negative (Negative) Ur Leukocyte Esterase Trace H (Negative) Urine RBC 0-2 (0-2) /HPF Urine WBC 0-5 (0-5) /HPF Ur Squamous Epith Cells 0-2 (0-2) /HPF Urine Bacteria None Seen (None Seen) Hyaline Casts 0-2 (0-2) /LPF <Eric Collins DO - Last Filed: 12/11/22 20:29> Independent Interpretation I performed an independent interpretation of an: EKG and Plain X-Ray <Eric Collins DO - Last Filed: 12/11/22 20:29> Radiology Impression Discussion of test interpretation with radiology: I have reviewed the radiologist's reading. <Eric Collins DO - Last Filed: 12/11/22 20:29> External Record Review External record reviewed: Inpatient record <DO José Miguel Akins Last Filed: 12/11/22 20:29> Discharge Plan Discharge Clinical Impression: Atrial flutter with rapid ventricular response <Paola Betts CNP - Last Filed: 12/11/22 18:11> Patient Disposition: Admitted As Inpatient <Paola Betts CNP - Last Filed: 12/11/22 18:11> Prescriptions: No Action diltiazem HCl 120 mg capsule,extended release 24 hr 120 mg PO DAILY Qty: 30 5RF furosemide 40 mg tablet 40 mg PO DAILY Qty: 90 2RF Protocol: Hold for SBP< HOLD for SBP < : 90 prednisone 5 mg tablet 5 mg PO DIRECTED 30 Days Qty: 30 3RF Rx Instructions: see taper instructions 3 tabs a day , for 5 days , 2 tabs a day for 5 days , and then 1 tab a day to continue sertraline 100 mg Tablet 200 mg PO DAILY atorvastatin 20 mg Tablet 20 mg PO DAILY folic acid 1 mg Tablet 1 mg PO DAILY Qty: 90 3RF warfarin 2.5 mg tablet 5 mg PO RO@1800 Protocol: Dose Management Condition: Saturday (Week One) Dose/Route: 5 mg Instruction: 2 x 2.5 mg tablets Condition: Saturday Dose/Route: 7.5 mg Instruction: 3 x 2.5 mg tablets Condition: Saturday Dose/Route: 7.5 mg Instruction: 3 x 2.5 mg tablets Condition: Saturday Dose/Route: 5 mg Instruction: 2 x 2.5 mg tablets Condition: Dose/Route: 7.5 mg Instruction: 3 x 2.5 mg tablets Condition: Saturday Dose/Route: 5 mg Instruction: 2 x 2.5 mg tablets Condition: Saturday Dose/Route: 5 mg Instruction: 2 x 2.5 mg tablets Condition: Saturday (Week Two) Dose/Route: 7.5 mg Instruction: 3 x 2.5 mg tablets Condition: Saturday Dose/Route: 5 mg Instruction: 2 x 2.5 mg tablets Condition: Saturday Dose/Route: 7.5 mg Instruction: 3 x 2.5 mg tablets Condition: Saturday Dose/Route: 5 mg Instruction: 2 x 2.5 mg tablets Condition: Dose/Route: 7.5 mg Instruction: 3 x 2.5 mg tablets Condition: Saturday Dose/Route: 5 mg Instruction: 2 x 2.5 mg tablets Condition: Saturday Dose/Route: 5 mg Instruction: 2 x 2.5 mg tablets Protocol Text: Adjustment Start Date: Saturday12/10/22 INR Value: 2.2 INR Date: 12/10/22 Recheck Date: 12/17/22 Additional Instructions: take 7.5mg today and tomm then increase weekly dose no greens for 2-3 days, eat reds to raise inr Trelegy Ellipta 200-62.5-25 mcg blister with device 1 puff inhalation DAILY benzonatate 100 mg Capsule 100 mg PO TID PRN (Reason: Cough) Qty: 9 0RF levothyroxine 25 mcg tablet 25 mcg PO DAILY@0600 albuterol sulfate [Ventolin HFA] 90 mcg/actuation HFA aerosol inhaler 1 puff inhalation Q4H PRN (Reason: Wheezing) ferrous sulfate 325 mg (65 mg iron) tablet 325 mg PO BID <Paola Betts CNP - Last Filed: 12/11/22 18:11>
[2022-12-11 17:56] LABS: MANUAL DIFF FLAG NO
[2022-12-11 18:03] LABS: Basophils Percent Auto 0.3 % (0-2); Eosinophils Percent Auto 0.2 % (0-4); Hematocrit 33.8 % (37.0-47.0); Hemoglobin 10.4 g/dl (12.0-16.0); Imm Gran Abs Auto 0.14 X10*3/uL (0.00-0.03); Imm Gran Pct Auto 1.1 % (0.0-0.4); Lymphocytes Percent Auto 7.4 % (20-40); Mean Corpuscular HGB Conc 30.8 g/dl (31.0-35.0); Mean Corpuscular Volume 87.8 fL (80.0-98.0); Mean Platelet Volume 12.3 fL (9.4-12.3); Monocytes Absolute Auto 0.6 X10*3/uL (0.1-1.2); Monocytes Percent Auto 4.6 % (2-11); Neutrophils Absolute Auto 11.2 x10*3/uL (2.0-8.3); Neutrophils Percent Auto 86.4 % (45-73); Platelet Count 296 X10*3/uL (160-400); Red Blood Count 3.85 X10*6/uL (4.20-5.50); Red Cell Distribution Width 19.8 % (11.0-16.0); White Blood Count 12.9 X10*3/uL (4.8-10.8)
[2022-12-11 18:05] VITALS: BP 117/62; PULSE 78; RESP 16; O2SAT 95; BMI 26.5
[2022-12-11 18:05] LABS: INTERNATIONAL NORM RATIO 2.3 (0.9-1.1); Prothrombin Time 27.2 SEC (10.0-13.1)
[2022-12-11 18:17] LABS: Alanine Aminotransferase 17 U/L (0-31); Albumin Level 3.8 g/dL (3.5-5.0); Alkaline Phosphatase 90 U/L (39-117); Anion Gap 13 (12-20); Aspartate Amino Transferase 29 U/L (5-31); Bilirubin Total 0.7 mg/dL (0.0-1.0); Blood Urea Nitrogen 14 mg/dL (9-16); Carbon Dioxide 24 mmol/L (22-29); Chloride 110 mmol/L (96-108); Creatinine Clr Calc Pharmacy 62.5; Estimated Glomerular Filt Rate > 60; Glucose Random 98 mg/dL (60-115); Lipase 14 U/L (8-78); Magnesium 2.3 mg/dL (1.6-2.6); Potassium 4.3 mmol/L (3.3-5.1); Sodium 143 mmol/L (135-145); Total Protein 6.5 g/dL (6.5-8.0)
[2022-12-11 18:33] LABS: B Type Natriuretic Peptide 192 pg/mL (<100)
--- NOTE | 2022-12-11 18:58 | PC.NURSE ---
Patient brought in room changed and told we need a urine sample she was given urine cup and went. Will apply telemetry monitor when she is back in room.
[2022-12-11 19:02] VITALS: BP 135/96; PULSE 150; RESP 20; TEMP 36.6; O2SAT 94
[2022-12-11 19:18] LABS: Appearance Urine Clear; Color Urine Yellow; Glucose Urine UA Negative (Negative); Leukocyte Esterase Urine Trace (Negative); Nitrite Urine Negative (Negative); Specific Gravity - Urine >= 1.030 (1.005-1.025); UMIC TRIGGER UACC YES; Urine Blood Negative (Negative); Urine Ketones Trace mg/dL (Negative); Urine Protein Trace mg/dL (Neg-Trace)
[2022-12-11] MEDS: dilTIAZem HCL 50 MG/10 ML VIAL 20 MG IVPUSH (19:23)
[2022-12-11 19:24] LABS: Bacteria Urine None Seen (None Seen); Hyaline Casts Urine 0-2 /LPF (0-2); RBC Urine 0-2 /HPF (0-2); Squamous Epithelial Cell Urine 0-2 /HPF (0-2); WBC Urine 0-5 /HPF (0-5)
[2022-12-11 20:20] VITALS: BP 107/69; PULSE 114; RESP 20; O2SAT 91
[2022-12-11] MEDS: dilTIAZem HCL SR 90 MG CAP.ER.12H PO (20:20)
--- NOTE | 2022-12-11 20:31 | P.HPHOSP_ITS ---
History of Present Illness Date of Service: 12/11/22 Attending physician on admission: Ginny Mcdermott Chief Complaint: palpitations 67-year-old female with history of atrial fibrillation/flutter anticoagulated with Coumadin, heart failure with preserved ejection fraction, aortic stenosis s/p TAVR procedure in 08/2022, s/p St. Alex valve, history of amiodarone toxicity, interstitial lung disease and COPD on chronic prednisone presented to the ED earlier today for evaluation of palpitations and KRAUS ongoing for 1 week. She was sent from cardiology office. On arrival, patient tachycardic to 155. Blood pressure stable, vitals otherwise normal. Mild leukocytosis 12.9. Stable chronic normocytic anemia with H/H 10.4/33.8%. Renal function and electrolyte levels normal. Troponin baseline of 23.0. BNP 192, minimally elevated from baseline. CXR showing cardiomegaly without any acute cardiopulmonary disease. Patient initially given 20 mg diltiazem push without sustained improvement and started on diltiazem drip. Pt to be admitted for atrial fibrillation with RVR. Review of Systems Review of Systems: General: No fevers, malaise, unintentional weight loss Cardiovascular: +palpitations. No chest pain or leg edema Respiratory: No shortness of breath, wheezing, cough GI: No abdominal pain, nausea, vomiting, diarrhea, constipation, melena, hematochezia : No dysuria, hematuria, increased urinary frequency, decreased urinary output MSK: No myalgia, back pain Neuro: No headaches, weakness, paresthesias Skin: No rashes or lesions [facility] Medical History (Updated 12/11/22 @ 20:39 by CAITLIN Ramirez) (HFpEF) heart failure with preserved ejection fraction Abnormal EKG Anemia Aortic stenosis Atrial flutter Bronchitis due to Staphylococcus aureus COPD (chronic obstructive pulmonary disease) Current use of anticoagulant therapy Exercise hypoxemia History of transcatheter aortic valve replacement (TAVR) Hypoxia Interstitial lung disease Interstitial lung disease Obesity Paroxysmal atrial fibrillation Persistent atrial fibrillation Family History Father No problems noted. Mother CVD (cardiovascular disease) Surgical History History of sleeve gastrectomy (~2017) Hx of section Hx of mitral valve replacement (~2004) Hx of transesophageal echocardiography (SHELIA) for monitoring (~2015) S/P MVR (mitral valve replacement) Social History Household Members: Family Housing: House Do you presently have visiting nurse or other home services: No Alcohol intake: never Patient Tobacco Use Status: Former Tobacco user Tobacco use type: Cigarette Smoked in Last 30 Days: No Use of substances other than those prescribed or required for medical reasons: No Advance Directives: No Advance Directives Information Provided: No Advance Directives Date on File: 08/28/22 service: No Current occupational status: disabled Meds Allergies Allergy/AdvReac Type Severity Reaction Status Date / Time amiodarone Allergy Intermediate Swelling Verified 12/10/22 08:35 Active Medications: Current Medications Diltiazem HCl 125 mg/ Sodium (Chloride) 125 mls @ 0 mls/hr IVCONT .Q0M [facility]ON[facility]; Protocol Pharmacy Consult (Consult Rx Perform Med Rec) 1 each MISCELLANE ONCE PRN PRN Reason: Consult order Home Medications Medication Instructions Recorded Confirmed Last Taken Type levothyroxine 25 mcg tablet 25 mcg PO DAILY@0600 09/01/20 12/11/22 10/26/22 History atorvastatin 20 mg tablet 20 mg PO DAILY 04/26/21 12/11/22 10/26/22 History sertraline 100 mg tablet 200 mg PO DAILY 04/26/21 12/11/22 10/26/22 History albuterol sulfate 90 mcg/actuation 1 puff inhalation Q4H PRN Wheezing 09/24/22 12/11/22 10/26/22 History aerosol inhaler (Ventolin HFA) fluticasone fur. 200 mcg-umeclid 1 puff inhalation DAILY 10/27/22 12/11/22 10/26/22 History 62.5 mcg-vilant 25 mcg inhalat.powder (Trelegy Ellipta) warfarin 2.5 mg tablet 5 mg PO SUMOTUWEFRSA@1800 10/27/22 12/11/22 10/26/22 History ferrous sulfate 325 mg (65 mg 325 mg PO BID 12/10/22 12/11/22 Unknown History iron) tablet Physical Exam Vital Signs and Narrative: Vital Signs: Last Vital Signs Temp 97.9 F 12/11/22 19:02 Pulse 114 H 12/11/22 20:20 Resp 20 12/11/22 20:20 BP 107/69 12/11/22 20:20 Pulse Ox 91 L 12/11/22 20:20 O2 Del Method 12/11/22 19:02 BMI result Body Mass Index 26.5 Constitutional - Awake and Alert, No apparent distress Eyes - PERRLA, EOMI Cardiovascular - S1S2, irregularly irregular rhythm with tachycardia, No edema Respiratory - Normal lung expansion, Normal respiratory effort, No respiratory distress, CTA bilaterally Gastrointestinal - NT / ND; +BS; No rebound or guarding - No CVA tenderness Extremities - no calf tenderness bilaterally, no swelling Skin - Warm/Dry Neurological - Alert & oriented x3, CN II-XII in tact, 5/5 strength BUE and BLE Psychological - Appropriate affect Results Labs 12/11/22 17:48 12/11/22 17:48 Labs: Laboratory Results - last 24 hr 12/11/22 12/11/22 12/11/22 17:48 17:48 17:48 MCV 87.8 MCH 27.0 MCHC 30.8 L RDW 19.8 H Plt Count 296 D MPV 12.3 Immature Gran % (Auto) 1.1 H Neut % (Auto) 86.4 H Lymph % (Auto) 7.4 L [place] % (Auto) 4.6 Eos % (Auto) 0.2 Baso % (Auto) 0.3 Lymph # (Auto) 1.0 L [place] # (Auto) 0.6 Eos # (Auto) 0.0 Baso # (Auto) 0.0 Abs Immat Gran (auto) 0.14 H Absolute Neuts (auto) 11.2 H Absolute Nucleated RBC 0.000 Nucleated RBC % (auto) 0.0 PT 27.2 H INR 2.3 H Anion Gap 13 Estim Creat Clear Calc 62.5 Estimated GFR > 60 Random Glucose 98 Calcium 9.0 Magnesium 2.3 Total Bilirubin 0.7 AST 29 ALT 17 Alkaline Phosphatase 90 Troponin I High Sens B-Natriuretic Peptide Total Protein 6.5 Albumin 3.8 Lipase 14 Urine Color Urine Appearance Urine pH Ur Specific [place] Urine Protein Urine Glucose (UA) Urine Ketones Urine Blood Urine Nitrite Ur Leukocyte Esterase Urine RBC Urine WBC Ur Squamous Epith Cells Urine Bacteria Hyaline Casts 12/11/22 12/11/22 12/11/22 17:48 17:48 19:07 MCV MCH MCHC RDW Plt Count MPV Immature Gran % (Auto) Neut % (Auto) Lymph % (Auto) [place] % (Auto) Eos % (Auto) Baso % (Auto) Lymph # (Auto) [place] # (Auto) Eos # (Auto) Baso # (Auto) Abs Immat Gran (auto) Absolute Neuts (auto) Absolute Nucleated RBC Nucleated RBC % (auto) PT INR Anion Gap Estim Creat Clear Calc Estimated GFR Random Glucose Calcium Magnesium Total Bilirubin AST ALT Alkaline Phosphatase Troponin I High Sens 23.0 H B-Natriuretic Peptide 192 H Total Protein Albumin Lipase Urine Color Yellow Urine Appearance Clear Urine pH 6.0 Ur Specific [place] >= 1.030 H Urine Protein Trace Urine Glucose (UA) Negative Urine Ketones Trace Urine Blood Negative Urine Nitrite Negative Ur Leukocyte Esterase Trace H Urine RBC 0-2 Urine WBC 0-5 Ur Squamous Epith Cells 0-2 Urine Bacteria None Seen Hyaline Casts 0-2 Imaging Radiologist's Impressions: Impressions Chest X-Ray 12/11/22 18:20 IMPRESSION: Cardiomegaly. No acute intrathoracic disease. Assessment and Plan (1) Atrial flutter with rapid ventricular response: Status: Acute Plan 67-year-old female with history of atrial fibrillation/flutter anticoagulated with Coumadin, heart failure with preserved ejection fraction, aortic stenosis s/p TAVR procedure in 08/2022, s/p St. Alex valve, interstitial lung disease and COPD on chronic prednisone, chronic hypoxemic respiratory failure intermittently requiring supplemental O2 admitted for atrial fibrillation with RVR. # paroxysmal atrial fibrillation/flutter with RVR -EKG showing atrial flutter, rate 75. HR fluctuating from 114-150 on exam -continue diltiazem drip. Hold p.o. diltiazem at this time -continue Coumadin for anticoagulation. Monitor INR. Goal 2.5-3.5 -appreciate cardiology input -last echo 10/18 showing normal LV systolic function with EF 56% and mechanical prosthetic mitral valve and bioprosthetic aortic valve -cardiac diet -admit to telemetry -TSH magnesium pending #HTN continue home lasix #Mechanical Mitral valve -continue coumadin -follow INR (goal 2.5-3.5) #Chronic HFpEF -no acute exacerbation -continue lasix #chronic microcytic anemia -H/H stable -continue ferrous sulfate ? #hypothyroidism -continue home meds #mood disorder -continue home meds #interstitial lung disease -following amiodarone toxicity -without acute exacerbation -contineu home prednisone taper # COPD-without acute exacerbation -continue home inhalers DVT prophylaxis-on Coumadin Full code Med rec pending Patient requires inpatient stay at least 2 midnights for management of AFib/flutter with RVR on diltiazem drip Time Spent With Patient Time: Total time managing care of this patient today ____ minutes. Quality Stroke Does the patient have a stroke diagnosis?: No VTE Prior VTE?: No VTE Risk Level:: Medical - moderate - high VTE Device Contraindication: Treatment Not Indicated VTE Drug Contraindication: N/A - Med Ordered
[2022-12-11] MEDS: dilTIAZem HCL 125 MG in 0.9 % Sodium Chloride 100 ML 10 MG IVCONT (20:56)
--- NOTE | 2022-12-11 21:14 | PHA.MEDREC ---
Pharmacy Consult ? Medication Reconciliation Pharmacy has completed the medication reconciliation.
[2022-12-11 21:16] LABS: Thyroid Stimulating Hormone 2.04 uIU/mL (0.32-4.0)
[2022-12-11] MEDS: Ascorbic Acid 250 MG TABLET PO (22:05)
[2022-12-11] MEDS: Ferrous Sulfate 324 MG TABLET.DR PO (22:05)
[2022-12-11 22:07] VITALS: BP 105/62; PULSE 118; RESP 18; TEMP 36.6; O2SAT 90
[2022-12-11 23:21] VITALS: BP 103/71
[2022-12-11 23:46] LABS: COVID-19 Test Negative (Negative); IDNOW Serial# 16C4AD1C
--- NOTE | 2022-12-12 | ECG_ITS ---
Test Reason : CP Blood Pressure : / mmHG Vent. Rate : 088 BPM Atrial Rate : 000 BPM P-R Int : 000 ms QRS Dur : 102 ms QT Int : 380 ms P-R-T Axes : 000 053 218 degrees QTc Int : 459 ms Atrial fibrillation with a competing junctional pacemaker Minimal voltage criteria for LVH, may be normal variant ( Bebo product ) T wave abnormality, consider inferior ischemia Abnormal ECG When compared with ECG of 11-DEC-2022 17:39, Atrial fibrillation has replaced Atrial flutter Nonspecific T wave abnormality now evident in Lateral leads QT has lengthened Referred By: Nuvia Feliciano Electronically Signed By:López Lion
--- NOTE | 2022-12-12 04:51 | PC.NURSE ---
assumed care of patient at 0300 . patient resting comfortably on stretcher
[2022-12-12] MEDS: dilTIAZem HCL 125 MG in 0.9 % Sodium Chloride 100 ML 15 MG IVCONT (05:38)
[2022-12-12 05:42] VITALS: BP 101/64; PULSE 122; RESP 18; O2SAT 93
[2022-12-12 05:44] VITALS: TEMP 36.5
[2022-12-12 06:06] LABS: MANUAL DIFF FLAG NO
[2022-12-12 06:09] LABS: Basophils Percent Auto 0.3 % (0-2); Eosinophils Absolute Auto 0.1 X10*3/uL (0.0-0.4); Hematocrit 31.6 % (37.0-47.0); Hemoglobin 9.5 g/dl (12.0-16.0); Imm Gran Abs Auto 0.13 X10*3/uL (0.00-0.03); Imm Gran Pct Auto 1.4 % (0.0-0.4); Lymphocytes Absolute Auto 1.4 X10*3/uL (1.2-4.9); Lymphocytes Percent Auto 14.9 % (20-40); Mean Corpuscular HGB Conc 30.1 g/dl (31.0-35.0); Mean Corpuscular Hemoglobin 26.8 pg (27.0-33.0); Mean Platelet Volume 12.6 fL (9.4-12.3); Monocytes Absolute Auto 0.5 X10*3/uL (0.1-1.2); Monocytes Percent Auto 5.7 % (2-11); Neutrophils Percent Auto 76.7 % (45-73); Platelet Count 238 X10*3/uL (160-400); Red Blood Count 3.55 X10*6/uL (4.20-5.50); Red Cell Distribution Width 19.5 % (11.0-16.0); White Blood Count 9.1 X10*3/uL (4.8-10.8)
[2022-12-12 06:13] LABS: INTERNATIONAL NORM RATIO 2.5 (0.9-1.1); Prothrombin Time 29.4 SEC (10.0-13.1)
[2022-12-12 06:36] LABS: Anion Gap 14 (12-20); Blood Urea Nitrogen 12 mg/dL (9-16); Calcium 8.6 mg/dL (8.4-10.2); Carbon Dioxide 23 mmol/L (22-29); Chloride 110 mmol/L (96-108); Estimated Glomerular Filt Rate > 60; Glucose Random 77 mg/dL (60-115); Potassium 3.9 mmol/L (3.3-5.1); Sodium 143 mmol/L (135-145)
[2022-12-12 08:00] VITALS: BP 102/62; PULSE 87; RESP 14; TEMP 36.1; O2SAT 95
--- NOTE | 2022-12-12 09:03 | MHC.CM.PN ---
IMM 12/12/22 Female 67 DX A Flutter/RVR AFIB Patient lives with her dtr and gr dtr. She is independent. She has home O2 thru [facility]; but states that she no longer needs to use it. HCP on file. VAX X5. DP home self care. Family will provide transportation home.
[2022-12-12] MEDS: Sertraline HCL 100 MG TABLET 200 MG PO (09:21)
[2022-12-12] MEDS: Ascorbic Acid 250 MG TABLET PO ×2 (09:22→20:27)
[2022-12-12] MEDS: Folic Acid 1 MG TABLET PO (09:23)
[2022-12-12] MEDS: Levothyroxine Sodium 25 MCG TABLET PO (09:24)
[2022-12-12] MEDS: predniSONE 5 MG TABLET 15 MG PO (09:24)
[2022-12-12] MEDS: Atorvastatin Calcium 20 MG TABLET PO (09:24)
--- NOTE | 2022-12-12 09:55 | P.CONPL_ITS ---
History of Present Illness History of Present Illness Consult date: 12/12/22 Chief complaint: Palpitations Narrative: This is an inpatient pulmonary consultation. The patient is a 67-year-old female with history of atrial fibrillation/flutter anticoagulated with Coumadin, heart failure with preserved ejection fraction, aortic stenosis s/p TAVR procedure in 08/2022, s/p St. Alex valve, history of amiodarone toxicity, interstitial lung disease and COPD on chronic prednisone presented to the ED earlier today for evaluation of palpitations and KRAUS ongoing for 1 week. She was sent from cardiology office. On arrival, patient tachycardic to 155.? Blood pressure stable, vitals otherwise normal.? Mild leukocytosis 12.9.? Stable chronic normocytic anemia with H/H 10.4/33.8%.? Renal function and electrolyte levels normal.? Troponin baseline of 23.0.? BNP 192, minimally elevated from bas malka.? CXR showing cardiomegaly without any acute cardiopulmonary disease.? Patient initially given 20 mg diltiazem push without sustained improvement and started on diltiazem drip. Pt to be admitted for atrial fibrillation with RVR. In the meantime I did review her last CT scan done beginning of December 17 demonstrating interval improvement in the ground-glass opacities in pneumonitis. Although appears to have a ill-defined nodular subsolid nodular density in the right hemithorax now that the pneumonitis is resolved. I did talk to the patient about this. She does have a history of lung cancer in the family. She needs to have this nodular density follow-up in the next 4-6 months. The Review of Systems Review of Systems: General: No fevers, malaise, unintentional weight loss Cardiovascular: +palpitations. No chest pain or leg edema Respiratory: No shortness of breath, wheezing, cough GI: No abdominal pain, nausea, vomiting, diarrhea, constipation, melena, hematochezia : No dysuria, hematuria, increased urinary frequency, decreased urinary output MSK: No myalgia, back pain Neuro: No headaches, weakness, paresthesias Skin: No rashes or lesions PMFSH Past Medical History Medical History (Updated 12/12/22 @ 09:58 by Daren Kirkland MD) (HFpEF) heart failure with preserved ejection fraction Abnormal EKG Anemia Aortic stenosis Atrial flutter Bronchitis due to Staphylococcus aureus COPD (chronic obstructive pulmonary disease) Current use of anticoagulant therapy Exercise hypoxemia History of transcatheter aortic valve replacement (TAVR) Hypoxia Interstitial lung disease Interstitial lung disease Obesity Paroxysmal atrial fibrillation Persistent atrial fibrillation Pulmonary nodule Family History Family History Father No problems noted. Mother CVD (cardiovascular disease) Surgical History Surgical History History of sleeve gastrectomy (~2017) Hx of section Hx of mitral valve replacement (~2004) Hx of transesophageal echocardiography (SHELIA) for monitoring (~2015) S/P MVR (mitral valve replacement) Social History Social History Household Members: Family Housing: House Do you presently have visiting nurse or other home services: No Alcohol intake: never Patient Tobacco Use Status: Former Tobacco user Tobacco use type: Cigarette Smoked in Last 30 Days: No Use of substances other than those prescribed or required for medical reasons: No Advance Directives: No Advance Directives Information Provided: No Advance Directives Date on File: 08/28/22 Nutrition Risks: No Nutritional Risk service: No Current occupational status: disabled Meds Allergies Allergy/AdvReac Type Severity Reaction Status Date / Time amiodarone Allergy Intermediate Swelling Verified 12/10/22 08:35 Active Medications: Current Medications Acetaminophen (Acetaminophen 325 Mg Tablet) 650 mg PO Q6H PRN PRN Reason: Pain, Mild (Pain Scale 1-3) Albuterol Sulfate (Albuterol Sulfate 90 Mcg 8 Gm Inhaler) 1 puff INHALE Q4H PRN PRN Reason: Wheezing Ascorbic Acid (Ascorbic Acid 250 Mg Tablet) 250 mg PO BID [facility] Last Admin: 12/12/22 09:22 Dose: 250 mg Atorvastatin Calcium (Atorvastatin Calcium 20 Mg Tablet) 20 mg PO DAILY [facility] Last Admin: 12/12/22 09:24 Dose: 20 mg Ferrous Sulfate (Ferrous Sulfate 324 Mg Tablet.) [facility] [place] [facility] Admin: 12/11/22 22:05 Dose: 324 mg Ferrous Sulfate (Ferrous Sulfate 324 Mg Tablet.) 324 mg PO BID [facility] Folic Acid (Folic Acid 1 Mg Tablet) 1 mg PO DAILY [facility] Last Admin: 12/12/22 09:23 Dose: 1 mg Furosemide (Furosemide 40 Mg Tablet) 40 mg PO DAILY [facility]; Protocol Diltiazem HCl 125 mg/ Sodium (Chloride) 125 mls @ 0 mls/hr IVCONT .Q0M [facility]; Protocol Last Admin: 12/12/22 05:38 Dose: 15 mg/hr, 15 mls/hr Levothyroxine Sodium (Levothyroxine Sodium 25 Mcg Tablet) 25 mcg PO DAILY@0600 [facility] Last Admin: 12/12/22 09:24 Dose: 25 mcg Melatonin (Melatonin 3 Mg Tablet) 6 mg PO BEDTIME PRN PRN Reason: Insomnia Non-Formulary Medication (Pwiehnqcyql-Viojhfqrc-Byybwvbl [Trelegy Ellipta]) 1 puff INHALE DAILY [facility] Ondansetron HCl (Ondansetron Hcl 4 Mg/2 Ml Vial) 4 mg IVPUSH Q8H PRN PRN Reason: Nausea and Vomiting Pharmacy Consult (Consult Rx Perform Med Rec) 1 each MISCELLANE ONCE PRN PRN Reason: Consult order Prednisone (Prednisone 5 Mg Tablet) 15 mg PO DAILY [facility] Last Admin: 12/12/22 09:24 Dose: 15 mg Sertraline HCl (Sertraline Hcl 100 Mg Tablet) 200 mg PO DAILY [facility] Last Admin: 12/12/22 09:21 Dose: 200 mg Sodium Chloride (0.9 % Sodium Chloride Flush 3 Ml Syringe) 3 ml IVFLUSH QSHIFT [facility] Last Admin: 12/12/22 09:25 Dose: Not Given Warfarin Sodium (Warfarin Sodium 5 Mg Tablet) 5 mg PO WETHFRSA@1800 [facility] Warfarin Sodium (Warfarin Sodium 7.5 Mg Tablet) 7.5 mg PO SUMOTU@1800 [facility] Home Medications Medication Instructions Recorded Confirmed Last Taken Type levothyroxine 25 mcg tablet 25 mcg PO DAILY@0600 09/01/20 12/11/22 12/11/22 History atorvastatin 20 mg tablet 20 mg PO DAILY 04/26/21 12/11/22 12/11/22 History sertraline 100 mg tablet 200 mg PO DAILY 04/26/21 12/11/22 12/11/22 History albuterol sulfate 90 mcg/actuation 1 puff inhalation Q4H PRN Wheezing 09/24/22 12/11/22 10/26/22 History aerosol inhaler (Ventolin HFA) fluticasone fur. 200 mcg-umeclid 1 puff inhalation DAILY 10/27/22 12/11/22 12/11/22 History 62.5 mcg-vilant 25 mcg inhalat.powder (Trelegy Ellipta) warfarin 2.5 mg tablet 5 mg PO WETHFRSA@1800 10/27/22 12/11/22 10/26/22 History ferrous sulfate 325 mg (65 mg 325 mg PO BID 12/10/22 12/11/22 12/03/22 History iron) tablet prednisone 5 mg tablet 15 mg PO DAILY 12/11/22 12/11/22 12/11/22 History warfarin 2.5 mg tablet 7.5 mg PO SUMOTU@1800 12/11/22 12/11/22 12/11/22 History Physical Exam Vital Signs: Vital Signs: Last Vital Signs Temp 97.0 F 12/12/22 08:00 Pulse 87 12/12/22 08:00 Resp 14 12/12/22 08:00 BP 102/62 12/12/22 08:00 Pulse Ox 95 12/12/22 08:00 O2 Del Method 12/12/22 08:00 BMI result Body Mass Index 26.5 General: Well-appearing well-nourished in no signs of distress HEENT: Normocephalic atraumatic Neck: No signs of JVD, no masses no tenderness or lymphadenopathy Cardiovascular: Tachycardic irregularly irregular Respiratory: minimal crackles, diminished Abdomen: Soft nontender no masses Extremities: Normal pedal pulses no signs of edema Skin: Dry warm no rashes Back: No tenderness full ROM Results Laboratory Findings 12/12/22 05:21 12/12/22 05:21 ABG, PT/INR, D-dimer: PT/INR, D-dimer PT 29.4 SEC (10.0-13.1) H 12/12/22 05:21 INR 2.5 (0.9-1.1) H 12/12/22 05:21 Abnormal lab findings: Abnormal Labs 12/11/22 12/11/22 12/11/22 17:48 17:48 17:48 WBC 12.9 H RBC 3.85 L Hgb 10.4 L Hct 33.8 L MCH MCHC 30.8 L RDW 19.8 H MPV Immature Gran % (Auto) 1.1 H Neut % (Auto) 86.4 H Lymph % (Auto) 7.4 L Lymph # (Auto) 1.0 L Abs Immat Gran (auto) 0.14 H Absolute Neuts (auto) 11.2 H PT 27.2 H INR 2.3 H Chloride 110 H Troponin I High Sens B-Natriuretic Peptide Ur Specific [place] Ur Leukocyte Esterase 12/11/22 12/11/22 12/11/22 17:48 17:48 19:07 WBC RBC Hgb Hct MCH MCHC RDW MPV Immature Gran % (Auto) Neut % (Auto) Lymph % (Auto) Lymph # (Auto) Abs Immat Gran (auto) Absolute Neuts (auto) PT INR Chloride Troponin I High Sens 23.0 H B-Natriuretic Peptide 192 H Ur Specific [place] >= 1.030 H Ur Leukocyte Esterase Trace H 12/12/22 12/12/22 12/12/22 05:21 05:21 05:21 WBC RBC 3.55 L Hgb 9.5 L Hct 31.6 L MCH 26.8 L MCHC 30.1 L RDW 19.5 H MPV 12.6 H Immature Gran % (Auto) 1.4 H Neut % (Auto) 76.7 H Lymph % (Auto) 14.9 L Lymph # (Auto) Abs Immat Gran (auto) 0.13 H Absolute Neuts (auto) PT 29.4 H INR 2.5 H Chloride 110 H Troponin I High Sens B-Natriuretic Peptide Ur Specific [place] Ur Leukocyte Esterase Assessment and Plan (1) Interstitial lung disease: Status: Acute (2) COPD (chronic obstructive pulmonary disease): Status: Acute (3) Pulmonary nodule: Status: Acute Plan continue slow prednisone taper will need to have a repeat CT chest in 4-6 months to f/u sunsolid right sided periphreal nodular density. F/U with pulmonary as an outpt Time Spent With Patient Time: Total time managing care of this patient today ____ minutes. Procedures Date of Service Date of Service: 12/12/22
[2022-12-12 10:36] VITALS: BMI 26.5
--- NOTE | 2022-12-12 11:43 | PM.CNCAR ---
History of Present Illness History of Present Illness Date of Service: 12/12/22 Requesting physician: Nuvia Feliciano Chief complaint: Palpitations, PAF Narrative: 67-year-old female with complex cardiovascular issues including previous mitral valve replacement with mechanical valve and recent transcatheter aortic valve replacement. She is presenting for palpitations and atrial fibrillation. She was on Coumadin previously for anticoagulation. She has been noticing some more shortness of breath over the last week and noticed that she was in atrial fibrillation. She has some palpitations. Telemetry is showing AFib and she has been on Cardizem and currently on maximum dose of 15 milligram/hour. INRs have been therapeutic over the last 6 weeks. She is denying any significant weight gain. [facility] Past Medical History Medical History (HFpEF) heart failure with preserved ejection fraction Abnormal EKG Anemia Aortic stenosis Atrial flutter Bronchitis due to Staphylococcus aureus COPD (chronic obstructive pulmonary disease) Current use of anticoagulant therapy Exercise hypoxemia History of transcatheter aortic valve replacement (TAVR) Hypoxia Interstitial lung disease Interstitial lung disease Obesity Paroxysmal atrial fibrillation Persistent atrial fibrillation Pulmonary nodule Family History Family History Father No problems noted. Mother CVD (cardiovascular disease) Surgical History Surgical History History of sleeve gastrectomy (~2017) Hx of section Hx of mitral valve replacement (~2004) Hx of transesophageal echocardiography (SHELIA) for monitoring (~2015) S/P MVR (mitral valve replacement) Social History Social History Household Members: Family Housing: House Do you presently have visiting nurse or other home services: No Alcohol intake: never Patient Tobacco Use Status: Former Tobacco user Tobacco use type: Cigarette Smoked in Last 30 Days: No Use of substances other than those prescribed or required for medical reasons: No Have you been hit, kicked, punched, or otherwise hurt by someone within the past year? If so, by whom?: No Do you feel safe in your current relationship?: No Current Relationship Is there a partner from a previous relationship who is making you feel unsafe now?: No Are you made to feel afraid or neglected: No Advance Directives: No Advance Directives Information Provided: No Advance Directives Date on File: 08/28/22 Do you have thoughts of harming others: None Do you have a plan to hurt others: No Plan Recently lost weight without trying: No Nutrition Risks: No Nutritional Risk Patient : No : No Poor oral hygiene: No service: No Current occupational status: disabled Meds Allergies Allergy/AdvReac Type Severity Reaction Status Date / Time amiodarone Allergy Intermediate Swelling Verified 12/10/22 08:35 Active Medications: Current Medications Acetaminophen (Acetaminophen 325 Mg Tablet) 650 mg PO Q6H PRN PRN Reason: Pain, Mild (Pain Scale 1-3) Albuterol Sulfate (Albuterol Sulfate 90 Mcg 8 Gm Inhaler) 1 puff INHALE Q4H PRN PRN Reason: Wheezing Ascorbic Acid (Ascorbic Acid 250 Mg Tablet) 250 mg PO BID [facility] Last Admin: 12/12/22 09:22 Dose: 250 mg Atorvastatin Calcium (Atorvastatin Calcium 20 Mg Tablet) 20 mg PO DAILY [facility] Last Admin: 12/12/22 09:24 Dose: 20 mg Ferrous Sulfate (Ferrous Sulfate 324 Mg Tablet.) 324 mg PO BIDWM [facility] Last Admin: 12/11/22 22:05 Dose: 324 mg Ferrous Sulfate (Ferrous Sulfate 324 Mg Tablet.) 324 mg PO BID [facility] Folic Acid (Folic Acid 1 Mg Tablet) 1 mg PO DAILY [facility] Last Admin: 12/12/22 09:23 Dose: 1 mg Furosemide (Furosemide 40 Mg Tablet) 40 mg PO DAILY [facility]; Protocol Diltiazem HCl 125 mg/ Sodium (Chloride) 125 mls @ 0 mls/hr IVCONT .Q0M [facility]; Protocol Last Admin: 12/12/22 05:38 Dose: 15 mg/hr, 15 mls/hr Levothyroxine Sodium (Levothyroxine Sodium 25 Mcg Tablet) 25 mcg PO DAILY@0600 [facility] Last Admin: 12/12/22 09:24 Dose: 25 mcg Melatonin (Melatonin 3 Mg Tablet) 6 mg PO BEDTIME PRN PRN Reason: Insomnia Non-Formulary Medication (Wekrsoxdrbd-Kczuiphae-[id number] [Trelegy Ellipta]) 1 puff INHALE DAILY [facility] Ondansetron HCl (Ondansetron Hcl 4 Mg/2 Ml Vial) 4 mg IVPUSH Q8H PRN PRN Reason: Nausea and Vomiting Pharmacy Consult (Consult Rx Perform Med Rec) 1 each MISCELLANE ONCE PRN PRN Reason: Consult order Prednisone (Prednisone 5 Mg Tablet) 15 mg PO DAILY [facility] Last Admin: 12/12/22 09:24 Dose: 15 mg Sertraline HCl (Sertraline Hcl 100 Mg Tablet) 200 mg PO DAILY [facility] Last Admin: 12/12/22 09:21 Dose: 200 mg Sodium Chloride (0.9 % Sodium Chloride Flush 3 Ml Syringe) 3 ml IVFLUSH QSHIFT [facility] Last Admin: 12/12/22 09:25 Dose: Not Given Warfarin Sodium (Warfarin Sodium 5 Mg Tablet) 5 mg PO WETHFRSA@1800 [facility] Warfarin Sodium (Warfarin Sodium 7.5 Mg Tablet) 7.5 mg PO SUMOTU@1800 [facility] Home Medications Medication Instructions Recorded Confirmed Last Taken Type levothyroxine 25 mcg tablet 25 mcg PO DAILY@0600 09/01/20 12/11/22 12/11/22 History atorvastatin 20 mg tablet 20 mg PO DAILY 04/26/21 12/11/22 12/11/22 History sertraline 100 mg tablet 200 mg PO DAILY 04/26/21 12/11/22 12/11/22 History albuterol sulfate 90 mcg/actuation 1 puff inhalation Q4H PRN Wheezing 09/24/22 12/11/22 10/26/22 History aerosol inhaler (Ventolin HFA) fluticasone fur. 200 mcg-umeclid 1 puff inhalation DAILY 10/27/22 12/11/22 12/11/22 History 62.5 mcg-vilant 25 mcg inhalat.powder (Trelegy Ellipta) warfarin 2.5 mg tablet 5 mg PO WETHFRSA@1800 10/27/22 12/11/22 10/26/22 History ferrous sulfate 325 mg (65 mg 325 mg PO BID 12/10/22 12/11/22 12/03/22 History iron) tablet prednisone 5 mg tablet 15 mg PO DAILY 12/11/22 12/11/22 12/11/22 History warfarin 2.5 mg tablet 7.5 mg PO SUMOTU@1800 12/11/22 12/11/22 12/11/22 History Physical Exam Vital Signs: Vital Signs: Last Vital Signs Temp 97.0 F 12/12/22 08:00 Pulse 87 02/15/23 08:00 Resp 14 12/12/22 08:00 BP 102/62 12/12/22 08:00 Pulse Ox 95 12/12/22 08:00 O2 Del Method 12/12/22 08:00 BMI result Body Mass Index 26.5 GENERAL APPEARANCE: in no acute distress, pleasant. NECK: no carotid bruit, positive jugular venous distention. SKIN: no suspicious lesions, warm and dry. HEART: Mechanical 1st heart sound, irregular rate and rhythm. LUNGS: clear to auscultation bilaterally. ABDOMEN: soft, nontender. EXTREMITIES: no edema. PERIPHERAL PULSES: equal. NEUROLOGIC: No gross deficits, AAO X 3 Objective Labs and Meds 12/12/22 05:21 12/12/22 05:21 Lab results: Laboratory Results - last 24 hr 12/11/22 12/11/22 12/11/22 17:48 17:48 17:48 WBC 12.9 H RBC 3.85 L Hgb 10.4 L Hct 33.8 L MCV 87.8 MCH 27.0 MCHC 30.8 L RDW 19.8 H Plt Count 296 D MPV 12.3 Immature Gran % (Auto) 1.1 H Neut % (Auto) 86.4 H Lymph % (Auto) 7.4 L [place] % (Auto) 4.6 Eos % (Auto) 0.2 Baso % (Auto) 0.3 Lymph # (Auto) 1.0 L [place] # (Auto) 0.6 Eos # (Auto) 0.0 Baso # (Auto) 0.0 Abs Immat Gran (auto) 0.14 H Absolute Neuts (auto) 11.2 H Absolute Nucleated RBC 0.000 Nucleated RBC % (auto) 0.0 PT 27.2 H INR 2.3 H Sodium 143 Potassium 4.3 Chloride 110 H Carbon Dioxide 24 Anion Gap 13 BUN 14 Creatinine 0.82 Estim Creat Clear Calc 62.5 Estimated GFR > 60 Random Glucose 98 Calcium 9.0 Magnesium 2.3 Total Bilirubin 0.7 AST 29 ALT 17 Alkaline Phosphatase 90 Troponin I High Sens B-Natriuretic Peptide Total Protein 6.5 Albumin 3.8 Lipase 14 TSH 2.04 Urine Color Urine Appearance Urine pH Ur Specific [place] Urine Protein Urine Glucose (UA) Urine Ketones Urine Blood Urine Nitrite Ur Leukocyte Esterase Urine RBC Urine WBC Ur Squamous Epith Cells Urine Bacteria Hyaline Casts COVID-19 (ROS) COVID-19 Clin Com 12/11/22 12/11/22 12/11/22 17:48 17:48 19:07 WBC RBC Hgb Hct MCV MCH MCHC RDW Plt Count MPV Immature Gran % (Auto) Neut % (Auto) Lymph % (Auto) [place] % (Auto) Eos % (Auto) Baso % (Auto) Lymph # (Auto) [place] # (Auto) Eos # (Auto) Baso # (Auto) Abs Immat Gran (auto) Absolute Neuts (auto) Absolute Nucleated RBC Nucleated RBC % (auto) PT INR Sodium Potassium Chloride Carbon Dioxide Anion Gap BUN Creatinine Estim Creat Clear Calc Estimated GFR Random Glucose Calcium Magnesium Total Bilirubin AST ALT Alkaline Phosphatase Troponin I High Sens 23.0 H B-Natriuretic Peptide 192 H Total Protein Albumin Lipase TSH Urine Color Yellow Urine Appearance Clear Urine pH 6.0 Ur Specific [place] >= 1.030 H Urine Protein Trace Urine Glucose (UA) Negative Urine Ketones Trace Urine Blood Negative Urine Nitrite Negative Ur Leukocyte Esterase Trace H Urine RBC 0-2 Urine WBC 0-5 Ur Squamous Epith Cells 0-2 Urine Bacteria None Seen Hyaline Casts 0-2 COVID-19 (ROS) COVID-19 Clin Com 12/11/22 12/12/22 12/12/22 23:29 05:21 05:21 WBC 9.1 RBC 3.55 L Hgb 9.5 L Hct 31.6 L MCV 89.0 MCH 26.8 L MCHC 30.1 L RDW 19.5 H Plt Count 238 MPV 12.6 H Immature Gran % (Auto) 1.4 H Neut % (Auto) 76.7 H Lymph % (Auto) 14.9 L [place] % (Auto) 5.7 Eos % (Auto) 1.0 Baso % (Auto) 0.3 Lymph # (Auto) 1.4 [place] # (Auto) 0.5 Eos # (Auto) 0.1 Baso # (Auto) 0.0 Abs Immat Gran (auto) 0.13 H Absolute Neuts (auto) 7.0 Absolute Nucleated RBC 0.000 Nucleated RBC % (auto) 0.0 PT INR Sodium 143 Potassium 3.9 Chloride 110 H Carbon Dioxide 23 Anion Gap 14 BUN 12 Creatinine 0.64 Estim Creat Clear Calc 80.0 Estimated GFR > 60 Random Glucose 77 Calcium 8.6 Magnesium Total Bilirubin AST ALT Alkaline Phosphatase Troponin I High Sens B-Natriuretic Peptide Total Protein Albumin Lipase TSH Urine Color Urine Appearance Urine pH Ur Specific [place] Urine Protein Urine Glucose (UA) Urine Ketones Urine Blood Urine Nitrite Ur Leukocyte Esterase Urine RBC Urine WBC Ur Squamous Epith Cells Urine Bacteria Hyaline Casts COVID-19 (ROS) Negative COVID-19 Clin Com See Note 12/12/22 05:21 WBC RBC Hgb Hct MCV MCH MCHC RDW Plt Count MPV Immature Gran % (Auto) Neut % (Auto) Lymph % (Auto) [place] % (Auto) Eos % (Auto) Baso % (Auto) Lymph # (Auto) [place] # (Auto) Eos # (Auto) Baso # (Auto) Abs Immat Gran (auto) Absolute Neuts (auto) Absolute Nucleated RBC Nucleated RBC % (auto) PT 29.4 H INR 2.5 H Sodium Potassium Chloride Carbon Dioxide Anion Gap BUN Creatinine Estim Creat Clear Calc Estimated GFR Random Glucose Calcium Magnesium Total Bilirubin AST ALT Alkaline Phosphatase Troponin I High Sens B-Natriuretic Peptide Total Protein Albumin Lipase TSH Urine Color Urine Appearance Urine pH Ur Specific [place] Urine Protein Urine Glucose (UA) Urine Ketones Urine Blood Urine Nitrite Ur Leukocyte Esterase Urine RBC Urine WBC Ur Squamous Epith Cells Urine Bacteria Hyaline Casts COVID-19 (ROS) COVID-19 Clin Com Imaging Radiologist's impression: Impressions Chest X-Ray 12/11/22 18:20 IMPRESSION: Cardiomegaly. No acute intrathoracic disease. Assessment and Plan (1) Atrial fibrillation with rapid ventricular response: Status: Acute Plan 67-year-old female with complex cardiovascular issues presenting for AFib with RVR. She is symptomatic with palpitations. She has been on Cardizem drip at this stage. Echocardiography has previously shown normal ejection fraction with mild left ventricular hypertrophy. We are going to start her on flecainide 50 mg twice a day. She has been on Coumadin with therapeutic INRs. Keep her NPO after midnight for potential cardioversion tomorrow. If after starting flecainide heart rate is improving then please decrease the Cardizem drip dose. Eventually plan would be to put her back on her oral dose. She has mild JVD currently but is not overtly in heart failure currently. She should be on her home dose of diuretics. Please do not give any medications that can prolong QT interval and all interaction should be checked. I am stopping the Zofran. Thank you for allowing me to participate in the care of your patient. Please feel free to contact me if you have any questions. Time Spent With Patient Time: Total time managing care of this patient today ____ minutes. Procedures Date of Service Date of Service: 12/12/22
[2022-12-12 11:54] VITALS: BP 105/55; PULSE 73; RESP 18; TEMP 36.6; O2SAT 90
[2022-12-12] MEDS: Potassium Chloride ER 20 MEQ TAB.ER.PRT 40 MEQ PO (12:21)
[2022-12-12] MEDS: Ferrous Sulfate 324 MG TABLET.DR PO ×2 (12:28→17:37)
[2022-12-12] MEDS: dilTIAZem HCL 125 MG in 0.9 % Sodium Chloride 100 ML IVCONT (12:31)
[2022-12-12] MEDS: Flecainide Acetate 50 MG TABLET 200 MG PO (12:56)
--- NOTE | 2022-12-12 14:08 | HO.PM.IMPN ---
Subjective Subjective Date of Service: 12/12/22 Interval History: AF rate in 80s with max dilt drip dyspnea improved Review of Systems Review of Systems: Yes all other systems are reviewed and are negative Physical Exam Vital Signs: Vital Signs: Last Vital Signs Temp 97.9 F 12/12/22 11:54 Pulse 73 12/12/22 11:54 Resp 18 12/12/22 11:54 BP 105/55 L 12/12/22 11:54 Pulse Ox 90 L 12/12/22 11:54 O2 Del Method 12/12/22 11:54 BMI result Body Mass Index 26.5 Const: Other: Gen: in no acute distress HEENT: sclera anicteric, moist mucus membranes Neck: supple Lungs: clear to auscultation bilaterally Heart: irregular, mechanical S1 Abd: soft, non-tender, non-distended Ext: no edema Skin: warm/well-perfused Neuro: alert and oriented x3, no focal findings Psych: appropriate affect Objective Data Active Medications Acetaminophen (Acetaminophen 325 Mg Tablet) 650 mg PO Q6H PRN PRN Reason: Pain, Mild (Pain Scale 1-3) Albuterol Sulfate (Albuterol Sulfate 90 Mcg 8 Gm Inhaler) 1 puff INHALE Q4H PRN PRN Reason: Wheezing Ascorbic Acid (Ascorbic Acid 250 Mg Tablet) 250 mg PO BID [facility] Last Admin: 12/12/22 09:22 Dose: 250 mg Documented By: AMBER Atorvastatin Calcium (Atorvastatin Calcium 20 Mg Tablet) 20 mg PO DAILY [facility] Last Admin: 12/12/22 09:24 Dose: 20 mg Documented By: AMBER Ferrous Sulfate (Ferrous Sulfate 324 Mg Tablet.) 324 mg PO BIDWM [facility] Last Admin: 12/12/22 12:28 Dose: 324 mg Documented By: BLANCA Folic Acid (Folic Acid 1 Mg Tablet) 1 mg PO DAILY [facility] Last Admin: 12/12/22 09:23 Dose: 1 mg Documented By: AMBER Furosemide (Furosemide 40 Mg Tablet) 40 mg PO DAILY [facility]; Protocol Diltiazem HCl 125 mg/ Sodium (Chloride) 125 mls @ 0 mls/hr IVCONT .Q0M [facility]; Protocol Last Titration: 12/12/22 12:57 Dose: 0 mg/hr, 0 mls/hr Documented By: BLANCA Levothyroxine Sodium (Levothyroxine Sodium 25 Mcg Tablet) 25 mcg PO DAILY@0600 [facility] Last Admin: 12/12/22 09:24 Dose: 25 mcg Documented By: AMBER Melatonin (Melatonin 3 Mg Tablet) 6 mg PO BEDTIME PRN PRN Reason: Insomnia Non-Formulary Medication (Ipfncmroeod-Prlixsgxx-Quyrjtji [Trelegy Ellipta]) 1 puff INHALE DAILY [facility] Pharmacy Consult (Consult Rx Perform Med Rec) 1 each MISCELLANE ONCE PRN PRN Reason: Consult order Prednisone (Prednisone 5 Mg Tablet) 15 mg PO DAILY [facility] Last Admin: 12/12/22 09:24 Dose: 15 mg Documented By: AMBER Sertraline HCl (Sertraline Hcl 100 Mg Tablet) 200 mg PO DAILY [facility] Last Admin: 12/12/22 09:21 Dose: 200 mg Documented By: AMBER Sodium Chloride (0.9 % Sodium Chloride Flush 3 Ml Syringe) 3 ml IVFLUSH QSHIFT [facility] Last Admin: 12/12/22 09:25 Dose: Not Given Documented By: AMBER Non-Admin Reason: IV Running Warfarin Sodium (Warfarin Sodium 5 Mg Tablet) 5 mg PO WETHFRSA@1800 [facility] Warfarin Sodium (Warfarin Sodium 7.5 Mg Tablet) 7.5 mg PO SUMOTU@1800 [facility] Labs 12/12/22 05:21 12/12/22 05:21 Labs: Laboratory Results - last 24 hr 12/11/22 12/11/22 12/11/22 17:48 17:48 17:48 MCV 87.8 MCH 27.0 MCHC 30.8 L RDW 19.8 H Plt Count 296 D MPV 12.3 Immature Gran % (Auto) 1.1 H Neut % (Auto) 86.4 H Lymph % (Auto) 7.4 L [place] % (Auto) 4.6 Eos % (Auto) 0.2 Baso % (Auto) 0.3 Lymph # (Auto) 1.0 L [place] # (Auto) 0.6 Eos # (Auto) 0.0 Baso # (Auto) 0.0 Abs Immat Gran (auto) 0.14 H Absolute Neuts (auto) 11.2 H Absolute Nucleated RBC 0.000 Nucleated RBC % (auto) 0.0 PT 27.2 H INR 2.3 H Anion Gap 13 Estim Creat Clear Calc 62.5 Estimated GFR > 60 Random Glucose 98 Calcium 9.0 Magnesium 2.3 Total Bilirubin 0.7 AST 29 ALT 17 Alkaline Phosphatase 90 Troponin I High Sens B-Natriuretic Peptide Total Protein 6.5 Albumin 3.8 Lipase 14 TSH 2.04 Urine Color Urine Appearance Urine pH Ur Specific [place] Urine Protein Urine Glucose (UA) Urine Ketones Urine Blood Urine Nitrite Ur Leukocyte Esterase Urine RBC Urine WBC Ur Squamous Epith Cells Urine Bacteria Hyaline Casts COVID-19 (ROS) COVID-19 Clin Com 12/11/22 12/11/22 12/11/22 17:48 17:48 19:07 MCV MCH MCHC RDW Plt Count MPV Immature Gran % (Auto) Neut % (Auto) Lymph % (Auto) [place] % (Auto) Eos % (Auto) Baso % (Auto) Lymph # (Auto) [place] # (Auto) Eos # (Auto) Baso # (Auto) Abs Immat Gran (auto) Absolute Neuts (auto) Absolute Nucleated RBC Nucleated RBC % (auto) PT INR Anion Gap Estim Creat Clear Calc Estimated GFR Random Glucose Calcium Magnesium Total Bilirubin AST ALT Alkaline Phosphatase Troponin I High Sens 23.0 H B-Natriuretic Peptide 192 H Total Protein Albumin Lipase TSH Urine Color Yellow Urine Appearance Clear Urine pH 6.0 Ur Specific [place] >= 1.030 H Urine Protein Trace Urine Glucose (UA) Negative Urine Ketones Trace Urine Blood Negative Urine Nitrite Negative Ur Leukocyte Esterase Trace H Urine RBC 0-2 Urine WBC 0-5 Ur Squamous Epith Cells 0-2 Urine Bacteria None Seen Hyaline Casts 0-2 COVID-19 (ROS) COVID-19 Clin Com 12/11/22 12/12/22 12/12/22 23:29 05:21 05:21 MCV 89.0 MCH 26.8 L MCHC 30.1 L RDW 19.5 H Plt Count 238 MPV 12.6 H Immature Gran % (Auto) 1.4 H Neut % (Auto) 76.7 H Lymph % (Auto) 14.9 L [place] % (Auto) 5.7 Eos % (Auto) 1.0 Baso % (Auto) 0.3 Lymph # (Auto) 1.4 [place] # (Auto) 0.5 Eos # (Auto) 0.1 Baso # (Auto) 0.0 Abs Immat Gran (auto) 0.13 H Absolute Neuts (auto) 7.0 Absolute Nucleated RBC 0.000 Nucleated RBC % (auto) 0.0 PT INR Anion Gap 14 Estim Creat Clear Calc 80.0 Estimated GFR > 60 Random Glucose 77 Calcium 8.6 Magnesium Total Bilirubin AST ALT Alkaline Phosphatase Troponin I High Sens B-Natriuretic Peptide Total Protein Albumin Lipase TSH Urine Color Urine Appearance Urine pH Ur Specific [place] Urine Protein Urine Glucose (UA) Urine Ketones Urine Blood Urine Nitrite Ur Leukocyte Esterase Urine RBC Urine WBC Ur Squamous Epith Cells Urine Bacteria Hyaline Casts COVID-19 (ROS) Negative COVID-19 Clin Com See Note 12/12/22 05:21 MCV MCH MCHC RDW Plt Count MPV Immature Gran % (Auto) Neut % (Auto) Lymph % (Auto) [place] % (Auto) Eos % (Auto) Baso % (Auto) Lymph # (Auto) [place] # (Auto) Eos # (Auto) Baso # (Auto) Abs Immat Gran (auto) Absolute Neuts (auto) Absolute Nucleated RBC Nucleated RBC % (auto) PT 29.4 H INR 2.5 H Anion Gap Estim Creat Clear Calc Estimated GFR Random Glucose Calcium Magnesium Total Bilirubin AST ALT Alkaline Phosphatase Troponin I High Sens B-Natriuretic Peptide Total Protein Albumin Lipase TSH Urine Color Urine Appearance Urine pH Ur Specific [place] Urine Protein Urine Glucose (UA) Urine Ketones Urine Blood Urine Nitrite Ur Leukocyte Esterase Urine RBC Urine WBC Ur Squamous Epith Cells Urine Bacteria Hyaline Casts COVID-19 (ROS) COVID-19 Clin Com Assessment and Plan (1) Atrial flutter with rapid ventricular response: Status: Acute Plan d#2 67yo F with AF, prior mechanical MV replacement, recent TAVR, amiodarone-induced ILD presenting with palpitations from AF/RVR # AF/RVR - on diltiazem drip now. NPO after MN for SHELIA- guided cardioversion and started on flecainide for maintenance of sinus rhythm - continue warfarin for anticoagulation # [facility] mitral valve - INR 2.5-3.5, continue warfarin # chronic HFpEF - continue furosemide # ILD - continue chronic prednisone # lung nodule - f/u CT 4-6 mo per Pulmonology # COPD without acute exac - continue controller inhaler # hypothyroid - continue LT4 # DARIO - continue Fe suppl # VTE ppx: warfarin # dispo: eventual home In my clinical judgment, the patient requires continued inpatient hospitalization for the following reasons: rate control, cardioversion Time Spent With Patient Time: Total time managing care of this patient today __50__ minutes. Quality Stroke Does the patient have a stroke diagnosis?: No VTE Prior VTE?: No VTE Risk Level:: Medical - moderate - high VTE Device Contraindication: Treatment Not Indicated VTE Drug Contraindication: N/A - Med Ordered
[2022-12-12 15:47] VITALS: BP 111/63; PULSE 67; RESP 15; TEMP 36.1; O2SAT 92
[2022-12-12] MEDS: Warfarin Sodium 5 MG TABLET PO (17:37)
[2022-12-12] MEDS: dilTIAZem HCL CD 120 MG CAP.ER.DEG PO (17:38)
[2022-12-12] MEDS: 0.9 % Sodium Chloride Flush 3 ML SYRINGE IVFLUSH (17:43)
[2022-12-12] MEDS: Cyanocobalamin (Vitamin B-12) 1,000 MCG/ML VIAL 1000 MCG IM (17:43)
[2022-12-12 19:49] VITALS: BP 121/58; PULSE 71; RESP 16; TEMP 36.4; O2SAT 93
[2022-12-12] MEDS: Furosemide 40 MG TABLET PO (20:27)
[2022-12-13] VITALS (12 sets, daily range): BP systolic 95–121; BP diastolic 50–72; PULSE 67–104; RESP 10–20; TEMP 36.2–36.9; O2SAT 90–96
--- NOTE | 2022-12-13 | ECG_ITS ---
Test Reason : post cardioversion Blood Pressure : / mmHG Vent. Rate : 071 BPM Atrial Rate : 071 BPM P-R Int : 136 ms QRS Dur : 092 ms QT Int : 414 ms P-R-T Axes : 000 045 -55 degrees QTc Int : 449 ms Sinus rhythm with Premature supraventricular complexes Nonspecific T wave abnormality Abnormal ECG When compared with ECG of 12-DEC-2022 18:12, Sinus rhythm has replaced Atrial fibrillation Referred By: López Lion Electronically Signed By:López Lion
[2022-12-13] MEDS: Levothyroxine Sodium 25 MCG TABLET PO (06:02)
[2022-12-13 07:27] LABS: Anion Gap 13 (12-20); Blood Urea Nitrogen 11 mg/dL (9-16); Calcium 8.7 mg/dL (8.4-10.2); Carbon Dioxide 24 mmol/L (22-29); Chloride 110 mmol/L (96-108); Creatinine Clr Calc Pharmacy 75.3; Estimated Glomerular Filt Rate > 60; Glucose Random 84 mg/dL (60-115); Magnesium 2.1 mg/dL (1.6-2.6); Sodium 143 mmol/L (135-145)
[2022-12-13 07:31] LABS: INTERNATIONAL NORM RATIO 2.6 (0.9-1.1)
[2022-12-13 07:38] LABS: B Type Natriuretic Peptide 100 pg/mL (<100)
[2022-12-13] MEDS: Folic Acid 1 MG TABLET PO (09:26)
[2022-12-13] MEDS: 0.9 % Sodium Chloride Flush 3 ML SYRINGE IVFLUSH (09:26)
[2022-12-13] MEDS: Ferrous Sulfate 324 MG TABLET.DR PO ×2 (09:26→16:19)
[2022-12-13] MEDS: Sertraline HCL 100 MG TABLET 200 MG PO (09:27)
[2022-12-13] MEDS: Flecainide Acetate 50 MG TABLET 100 MG PO ×2 (09:28→19:35)
[2022-12-13] MEDS: predniSONE 5 MG TABLET 15 MG PO (09:28)
[2022-12-13] MEDS: Ascorbic Acid 250 MG TABLET PO ×2 (09:28→19:35)
[2022-12-13] MEDS: dilTIAZem HCL CD 120 MG CAP.ER.DEG PO (09:28)
[2022-12-13] MEDS: Atorvastatin Calcium 20 MG TABLET PO (09:28)
--- NOTE | 2022-12-13 10:29 | HO.PM.IMPN ---
Subjective Subjective Date of Service: 12/13/22 Interval History: NPO for cardioversion in persistent AF, rate 80s-90s no chest pain/palpitations/lightheadedness Review of Systems Review of Systems: Yes all other systems are reviewed and are negative Physical Exam Vital Signs: Vital Signs: Last Vital Signs Temp 98.5 F 12/13/22 07:27 Pulse 91 12/13/22 07:27 Resp 20 12/13/22 07:27 BP 121/70 12/13/22 07:27 Pulse Ox 94 12/13/22 07:27 O2 Del Method 12/13/22 07:27 BMI result Body Mass Index 26.5 Const: Other: Gen: in no acute distress HEENT: sclera anicteric, moist mucus membranes Neck: supple Lungs: clear to auscultation bilaterally Heart: irregular, mechanical S1 Abd: soft, non-tender, non-distended Ext: no edema Skin: warm/well-perfused Neuro: alert and oriented x3, no focal findings Psych: appropriate affect Objective Data Active Medications Acetaminophen (Acetaminophen 325 Mg Tablet) 650 mg PO Q6H PRN PRN Reason: Pain, Mild (Pain Scale 1-3) Albuterol Sulfate (Albuterol Sulfate 90 Mcg 8 Gm Inhaler) 1 puff INHALE Q4H PRN PRN Reason: Wheezing Ascorbic Acid (Ascorbic Acid 250 Mg Tablet) 250 mg PO BID [facility] Last Admin: 12/13/22 09:28 Dose: 250 mg Documented By: RIANNA Atorvastatin Calcium (Atorvastatin Calcium 20 Mg Tablet) 20 mg PO DAILY [facility] Last Admin: 12/13/22 09:28 Dose: 20 mg Documented By: RIANNA Diltiazem HCl (Diltiazem Hcl Cd 120 Mg Cap.Er.Deg) 120 mg PO DAILY [facility]; Protocol Last Admin: 12/13/22 09:28 Dose: 120 mg Documented By: RIANNA Ferrous Sulfate (Ferrous Sulfate 324 Mg Tablet.Dr) 324 mg PO BIDM [facility] Last Admin: 12/13/22 09:26 Dose: 324 mg Documented By: RIANNA Flecainide Acetate (Flecainide Acetate 50 Mg Tablet) 100 mg PO BID [facility] Last Admin: 12/13/22 09:28 Dose: 100 mg Documented By: RIANNA Folic Acid (Folic Acid 1 Mg Tablet) 1 mg PO DAILY [facility] Last Admin: 12/13/22 09:26 Dose: 1 mg Documented By: RIANNA Furosemide (Furosemide 40 Mg Tablet) 40 mg PO DAILY@1700 [facility]; Protocol Levothyroxine Sodium (Levothyroxine Sodium 25 Mcg Tablet) 25 mcg PO DAILY@0600 [facility] Last Admin: 12/13/22 06:02 Dose: 25 mcg Documented By: AMBER Melatonin (Melatonin 3 Mg Tablet) 6 mg PO BEDTIME PRN PRN Reason: Insomnia Non-Formulary Medication (Qxloaxtyojo-Qfxergvrq-Itimkqez [Trelegy Ellipta]) 1 puff INHALE DAILY [facility] Pharmacy Consult (Consult Rx Perform Med Rec) 1 each MISCELLANE ONCE PRN PRN Reason: Consult order Prednisone (Prednisone 5 Mg Tablet) 15 mg PO DAILY [facility] Last Admin: 12/13/22 09:28 Dose: 15 mg Documented By: RIANNA Sertraline HCl (Sertraline Hcl 100 Mg Tablet) 200 mg PO DAILY [facility] Last Admin: 12/13/22 09:27 Dose: 200 mg Documented By: RIANNA Sodium Chloride (0.9 % Sodium Chloride Flush 3 Ml Syringe) 3 ml IVFLUSH QSHIFT [facility] Last Admin: 12/13/22 09:26 Dose: 3 ml Documented By: RIANNA Warfarin Sodium (Warfarin Sodium 5 Mg Tablet) 5 mg PO WETHFRSA@1800 [facility] Last Admin: 12/12/22 17:37 Dose: 5 mg Documented By: BLANCA Comments: Warfarin Sodium (Warfarin Sodium 7.5 Mg Tablet) 7.5 mg PO SUMOTU@1800 [facility] Labs 12/12/22 05:21 12/13/22 07:05 Labs: Laboratory Results - last 24 hr 12/13/22 12/13/22 12/13/22 07:05 07:05 07:05 PT 31.0 H INR 2.6 H Anion Gap 13 Estim Creat Clear Calc 75.3 Estimated GFR > 60 Random Glucose 84 Calcium 8.7 Magnesium 2.1 B-Natriuretic Peptide 100 Assessment and Plan (1) Atrial flutter with rapid ventricular response: Status: Acute Plan d#3 67yo F with AF, prior mechanical MV replacement, recent TAVR, amiodarone-induced ILD presenting with palpitations from AF/RVR # AF/RVR - NPO for SHELIA- guided cardioversion and started on flecainide for maintenance of sinus rhythm - continue warfarin for anticoagulation # [facility] mitral valve - INR 2.5-3.5, continue warfarin # chronic HFpEF - continue furosemide # ILD - continue chronic prednisone # lung nodule - f/u CT 4-6 mo per Pulmonology # COPD without acute exac - continue controller inhaler # hypothyroid - continue LT4 # DARIO - continue Fe suppl # VTE ppx: warfarin # dispo: eventual home In my clinical judgment, the patient requires continued inpatient hospitalization for the following reasons: rate control, cardioversion Time Spent With Patient Time: Total time managing care of this patient today _40___ minutes. Quality Stroke Does the patient have a stroke diagnosis?: No VTE Prior VTE?: No VTE Risk Level:: Medical - moderate - high VTE Device Contraindication: Treatment Not Indicated VTE Drug Contraindication: N/A - Med Ordered
--- NOTE | 2022-12-13 14:46 | P.CONAN_ITS ---
HPI - Anesthesia Eval Consult details Narrative: atrial Fibrillation [facility] Active Problems Active Problems: All Active Problems (Updated 12/12/22 @ 09:58 by Daren Kirkland MD) Pulmonary nodule (Acute) Atrial flutter with rapid ventricular response (Acute) Status post transcatheter aortic valve replacement (Acute) Hx of mitral valve replacement (Acute ~2004) (HFpEF) heart failure with preserved ejection fraction (Acute) Atrial fibrillation with rapid ventricular response (Acute) COPD (chronic obstructive pulmonary disease) (Acute) Exercise hypoxemia (Acute) Interstitial lung disease (Acute) Bronchitis due to Staphylococcus aureus (Acute) Mood disorder (Acute) Hypothyroidism (Acute) Acute diastolic CHF (congestive heart failure) (Acute) Increasing shortness of breath (Acute) D-dimer, elevated (Acute) Abnormal ECG (Acute) Past Medical History Medical History (HFpEF) heart failure with preserved ejection fraction Abnormal EKG Anemia Aortic stenosis Atrial flutter Bronchitis due to Staphylococcus aureus COPD (chronic obstructive pulmonary disease) Current use of anticoagulant therapy Exercise hypoxemia History of transcatheter aortic valve replacement (TAVR) Hypoxia Interstitial lung disease Interstitial lung disease Obesity Paroxysmal atrial fibrillation Persistent atrial fibrillation Pulmonary nodule Family History Family History Father No problems noted. Mother CVD (cardiovascular disease) Family history of problems with anesthesia: No Surgical History Surgical History History of sleeve gastrectomy (~2017) Hx of section Hx of mitral valve replacement (~2004) Hx of transesophageal echocardiography (SHELIA) for monitoring (~2015) S/P MVR (mitral valve replacement) History of Problems with Anesthesia: No Social History Social History Household Members: Family Housing: House Do you presently have visiting nurse or other home services: No Alcohol intake: never Patient Tobacco Use Status: Former Tobacco user Quit Date: 2014 Tobacco use type: Cigarette Years Smoked: 40 Smoked in Last 30 Days: No Use of substances other than those prescribed or required for medical reasons: No Currently Displaying Signs/Symptoms of Drug Intoxication Withdrawal: No Have you been hit, kicked, punched, or otherwise hurt by someone within the past year? If so, by whom?: No Do you feel safe in your current relationship?: No Current Relationship Is there a partner from a previous relationship who is making you feel unsafe now?: No Are you made to feel afraid or neglected: No Are you DNR?: No Advance Directives: No Advance Directives Information Provided: No Advance Directives Date on File: 08/28/22 Do you have thoughts of harming others: None Do you have a plan to hurt others: No Plan Recently lost weight without trying: No Nutrition Risks: No Nutritional Risk Patient : No : No Poor oral hygiene: No service: No Current occupational status: disabled Meds Allergies Allergy/AdvReac Type Severity Reaction Status Date / Time amiodarone Allergy Intermediate Swelling Verified 12/13/22 13:38 Active Medications: Current Medications Acetaminophen (Acetaminophen 325 Mg Tablet) 650 mg PO Q6H PRN PRN Reason: Pain, Mild (Pain Scale 1-3) Albuterol Sulfate (Albuterol Sulfate 90 Mcg 8 Gm Inhaler) 1 puff INHALE Q4H PRN PRN Reason: Wheezing Ascorbic Acid (Ascorbic Acid 250 Mg Tablet) 250 mg PO BID [facility] Last Admin: 12/13/22 09:28 Dose: 250 mg Atorvastatin Calcium (Atorvastatin Calcium 20 Mg Tablet) 20 mg PO DAILY [facility] Last Admin: 12/13/22 09:28 Dose: 20 mg Diltiazem HCl (Diltiazem Hcl Cd 120 Mg Cap.Er.Deg) 120 mg PO DAILY [facility]; Protocol Last Admin: 12/13/22 09:28 Dose: 120 mg Ferrous Sulfate (Ferrous Sulfate 324 Mg Tablet.Dr) 324 mg PO BIDWM [facility] Last Admin: 12/13/22 09:26 Dose: 324 mg Flecainide Acetate (Flecainide Acetate 50 Mg Tablet) 100 mg PO BID [facility] Last Admin: 12/13/22 09:28 Dose: 100 mg Folic Acid (Folic Acid 1 Mg Tablet) 1 mg PO DAILY [facility] Last Admin: 12/13/22 09:26 Dose: 1 mg Furosemide (Furosemide 40 Mg Tablet) 40 mg PO DAILY@1700 [facility]; Protocol Levothyroxine Sodium (Levothyroxine Sodium 25 Mcg Tablet) 25 mcg PO DAILY@0600 [facility] Last Admin: 12/13/22 06:02 Dose: 25 mcg Melatonin (Melatonin 3 Mg Tablet) 6 mg PO BEDTIME PRN PRN Reason: Insomnia Non-Formulary Medication (Bhlfkemafcf-Qesndusvt-Uzlofpyc [Trelegy Ellipta]) 1 puff INHALE DAILY [facility] Pharmacy Consult (Consult Rx Perform Med Rec) 1 each MISCELLANE ONCE PRN PRN Reason: Consult order Prednisone (Prednisone 5 Mg Tablet) 15 mg PO DAILY [facility] Last Admin: 12/13/22 09:28 Dose: 15 mg Sertraline HCl (Sertraline Hcl 100 Mg Tablet) 200 mg PO DAILY [facility] Last Admin: 12/13/22 09:27 Dose: 200 mg Sodium Chloride (0.9 % Sodium Chloride Flush 3 Ml Syringe) 3 ml IVFLUSH QSHIFT [facility] Last Admin: 12/13/22 09:26 Dose: 3 ml Warfarin Sodium (Warfarin Sodium 5 Mg Tablet) 5 mg PO WETHFRSA@1800 [facility] Last Admin: 12/12/22 17:37 Dose: 5 mg Warfarin Sodium (Warfarin Sodium 7.5 Mg Tablet) 7.5 mg PO SUMOTU@1800 [facility] Home Medications Medication Instructions Recorded Confirmed Last Taken Type levothyroxine 25 mcg tablet 25 mcg PO DAILY@0600 09/01/20 12/11/22 12/11/22 History atorvastatin 20 mg tablet 20 mg PO DAILY 04/26/21 12/11/22 12/11/22 History sertraline 100 mg tablet 200 mg PO DAILY 04/26/21 12/11/22 12/11/22 History albuterol sulfate 90 mcg/actuation 1 puff inhalation Q4H PRN Wheezing 09/24/22 12/11/22 10/26/22 History aerosol inhaler (Ventolin HFA) fluticasone fur. 200 mcg-umeclid 1 puff inhalation DAILY 10/27/22 12/11/22 12/11/22 History 62.5 mcg-vilant 25 mcg inhalat.powder (Trelegy Ellipta) warfarin 2.5 mg tablet 5 mg PO WETHFRSA@1800 10/27/22 12/11/22 10/26/22 History ferrous sulfate 325 mg (65 mg 325 mg PO BID 12/10/22 12/11/22 12/03/22 History iron) tablet prednisone 5 mg tablet 15 mg PO DAILY 12/11/22 12/11/22 12/11/22 History warfarin 2.5 mg tablet 7.5 mg PO SUMOTU@1800 12/11/22 12/11/22 12/11/22 History Exam Exam Date and Time: December 13, 2022 1446 Height,Weight and Vital Signs: Height 5 ft 3 in Weight 68 kg Last Vital Signs Temp 97.6 F 12/13/22 13:40 Pulse 96 12/13/22 13:40 Resp 16 12/13/22 13:40 BP 115/64 12/13/22 13:40 Pulse Ox 93 12/13/22 13:40 O2 Del Method 12/13/22 13:40 Pertinent Lab Results Pertinent Lab Results: Laboratory Tests 12/11/22 12/11/22 12/11/22 17:48 17:48 17:48 WBC 12.9 H RBC 3.85 L Hgb 10.4 L Hct 33.8 L MCV 87.8 MCH 27.0 MCHC 30.8 L RDW 19.8 H Plt Count 296 D MPV 12.3 Immature Gran % (Auto) 1.1 H Neut % (Auto) 86.4 H Lymph % (Auto) 7.4 L [place] % (Auto) 4.6 Eos % (Auto) 0.2 Baso % (Auto) 0.3 Lymph # (Auto) 1.0 L [place] # (Auto) 0.6 Eos # (Auto) 0.0 Baso # (Auto) 0.0 Abs Immat Gran (auto) 0.14 H Absolute Neuts (auto) 11.2 H Absolute Nucleated RBC 0.000 Nucleated RBC % (auto) 0.0 PT 27.2 H INR 2.3 H Sodium 143 Potassium 4.3 Chloride 110 H Carbon Dioxide 24 Anion Gap 13 BUN 14 Creatinine 0.82 Estim Creat Clear Calc 62.5 Estimated GFR > 60 Random Glucose 98 Calcium 9.0 Magnesium 2.3 Total Bilirubin 0.7 AST 29 ALT 17 Alkaline Phosphatase 90 Troponin I High Sens B-Natriuretic Peptide Total Protein 6.5 Albumin 3.8 Lipase 14 TSH 2.04 Urine Color Urine Appearance Urine pH Ur Specific [place] Urine Protein Urine Glucose (UA) Urine Ketones Urine Blood Urine Nitrite Ur Leukocyte Esterase Urine RBC Urine WBC Ur Squamous Epith Cells Urine Bacteria Hyaline Casts COVID-19 (ROS) COVID-19 Clin Com 12/11/22 12/11/22 12/11/22 17:48 17:48 19:07 WBC RBC Hgb Hct MCV MCH MCHC RDW Plt Count MPV Immature Gran % (Auto) Neut % (Auto) Lymph % (Auto) [place] % (Auto) Eos % (Auto) Baso % (Auto) Lymph # (Auto) [place] # (Auto) Eos # (Auto) Baso # (Auto) Abs Immat Gran (auto) Absolute Neuts (auto) Absolute Nucleated RBC Nucleated RBC % (auto) PT INR Sodium Potassium Chloride Carbon Dioxide Anion Gap BUN Creatinine Estim Creat Clear Calc Estimated GFR Random Glucose Calcium Magnesium Total Bilirubin AST ALT Alkaline Phosphatase Troponin I High Sens 23.0 H B-Natriuretic Peptide 192 H Total Protein Albumin Lipase TSH Urine Color Yellow Urine Appearance Clear Urine pH 6.0 Ur Specific [place] >= 1.030 H Urine Protein Trace Urine Glucose (UA) Negative Urine Ketones Trace Urine Blood Negative Urine Nitrite Negative Ur Leukocyte Esterase Trace H Urine RBC 0-2 Urine WBC 0-5 Ur Squamous Epith Cells 0-2 Urine Bacteria None Seen Hyaline Casts 0-2 COVID-19 (ROS) COVID-19 Clin Com 12/11/22 12/12/22 12/12/22 23:29 05:21 05:21 WBC 9.1 RBC 3.55 L Hgb 9.5 L Hct 31.6 L MCV 89.0 MCH 26.8 L MCHC 30.1 L RDW 19.5 H Plt Count 238 MPV 12.6 H Immature Gran % (Auto) 1.4 H Neut % (Auto) 76.7 H Lymph % (Auto) 14.9 L [place] % (Auto) 5.7 Eos % (Auto) 1.0 Baso % (Auto) 0.3 Lymph # (Auto) 1.4 [place] # (Auto) 0.5 Eos # (Auto) 0.1 Baso # (Auto) 0.0 Abs Immat Gran (auto) 0.13 H Absolute Neuts (auto) 7.0 Absolute Nucleated RBC 0.000 Nucleated RBC % (auto) 0.0 PT INR Sodium 143 Potassium 3.9 Chloride 110 H Carbon Dioxide 23 Anion Gap 14 BUN 12 Creatinine 0.64 Estim Creat Clear Calc 80.0 Estimated GFR > 60 Random Glucose 77 Calcium 8.6 Magnesium Total Bilirubin AST ALT Alkaline Phosphatase Troponin I High Sens B-Natriuretic Peptide Total Protein Albumin Lipase TSH Urine Color Urine Appearance Urine pH Ur Specific [place] Urine Protein Urine Glucose (UA) Urine Ketones Urine Blood Urine Nitrite Ur Leukocyte Esterase Urine RBC Urine WBC Ur Squamous Epith Cells Urine Bacteria Hyaline Casts COVID-19 (ROS) Negative COVID-19 Clin Com See Note 12/12/22 12/13/22 12/13/22 05:21 07:05 07:05 WBC RBC Hgb Hct MCV MCH MCHC RDW Plt Count MPV Immature Gran % (Auto) Neut % (Auto) Lymph % (Auto) [place] % (Auto) Eos % (Auto) Baso % (Auto) Lymph # (Auto) [place] # (Auto) Eos # (Auto) Baso # (Auto) Abs Immat Gran (auto) Absolute Neuts (auto) Absolute Nucleated RBC Nucleated RBC % (auto) PT 29.4 H 31.0 H INR 2.5 H 2.6 H Sodium 143 Potassium 4.0 Chloride 110 H Carbon Dioxide 24 Anion Gap 13 BUN 11 Creatinine 0.68 Estim Creat Clear Calc 75.3 Estimated GFR > 60 Random Glucose 84 Calcium 8.7 Magnesium 2.1 Total Bilirubin AST ALT Alkaline Phosphatase Troponin I High Sens B-Natriuretic Peptide Total Protein Albumin Lipase TSH Urine Color Urine Appearance Urine pH Ur Specific [place] Urine Protein Urine Glucose (UA) Urine Ketones Urine Blood Urine Nitrite Ur Leukocyte Esterase Urine RBC Urine WBC Ur Squamous Epith Cells Urine Bacteria Hyaline Casts COVID-19 (ROS) COVID-19 [employer] Com 12/13/22 07:05 WBC RBC Hgb Hct MCV MCH MCHC RDW Plt Count MPV Immature Gran % (Auto) Neut % (Auto) Lymph % (Auto) [place] % (Auto) Eos % (Auto) Baso % (Auto) Lymph # (Auto) [place] # (Auto) Eos # (Auto) Baso # (Auto) Abs Immat Gran (auto) Absolute Neuts (auto) Absolute Nucleated RBC Nucleated RBC % (auto) PT INR Sodium Potassium Chloride Carbon Dioxide Anion Gap BUN Creatinine Estim Creat Clear Calc Estimated GFR Random Glucose Calcium Magnesium Total Bilirubin AST ALT Alkaline Phosphatase Troponin I High Sens B-Natriuretic Peptide 100 Total Protein Albumin Lipase TSH Urine Color Urine Appearance Urine pH Ur Specific [place] Urine Protein Urine Glucose (UA) Urine Ketones Urine Blood Urine Nitrite Ur Leukocyte Esterase Urine RBC Urine WBC Ur Squamous Epith Cells Urine Bacteria Hyaline Casts COVID-19 (ROS) COVID-19 Clin Com Airway Mallampati Class: II TM Dist: >3cm Neck ROM: Full Denture: Upper Heart: irreg irreg s1s2 Lungs: cta b/l Assessment and Plan Assessment Anesthesia Assessment: Anesthesia Plan Discussed and Chart Reviewed Final Anesthetic Review Family History of Problems with Anesthesia: No History of Problems with Anesthesia: No NPO: Yes ASA Class: IV Final Preanesthetic Review: No Changes in Pt Med Stat, Meds/Allgs Chart Reviewed, Consent Obtained/Reviewed and Anes Risks/Benef Reviewed Patient Risk: High Procedure Risk: Intermediate Assessment/Block/Sedation in SS: Assess/Block/Sedation-SS Anesthetic Plan Anesthetic Plan: GA and Agree w/ Assess. and Plan Disposition: Standard PACU
--- NOTE | 2022-12-13 15:02 | HO.CARDIVERS ---
Cardioversion Procedure Note Cardioversion Date of Procedure: 12/13/22 Ordering Provider: López Lion Performing Provider: López Lion Indication for Procedure: PAF Consent: Verbal and Written consent was obtained from the patient before starting. The patient was made aware of the risk of stroke, aspiration, skin burn and failure. Procedure: After consent obtained, defib pads were attached and the patient was sedated by the anesthesia team. Once adequate sedation achieved, single synchronized shock of 200 J was given which converted her to sinus rhythm. She has frequent PACs but was in sinus rhythm. Complications: No acute complications. Recommendations: c/w flecainide 100 mg BID. c/w coumadin.
--- NOTE | 2022-12-13 15:21 | PM.PNCARD ---
Subjective Subjective Date of Service: 12/13/22 Interval history: Seen and examined before cardioversion. Feeling better. Physical Exam Vital Signs: Last Vital Signs Temp 97.6 F 12/13/22 15:05 Pulse 70 12/13/22 15:15 Resp 10 L 12/13/22 15:15 BP 102/60 12/13/22 15:15 Pulse Ox 95 12/13/22 15:15 O2 Del Method 12/13/22 15:15 O2 Flow Rate 2 12/13/22 15:15 BMI result Body Mass Index 26.5 GENERAL APPEARANCE: in no acute distress, pleasant. NECK: no carotid bruit, positive jugular venous distention. SKIN: no suspicious lesions, warm and dry. HEART: Mechanical 1st heart sound, irregular rate and rhythm. LUNGS: clear to auscultation bilaterally. ABDOMEN: soft, nontender. EXTREMITIES: no edema. PERIPHERAL PULSES: equal. NEUROLOGIC: No gross deficits, AAO X 3 Objective Labs and Meds 12/12/22 05:21 12/13/22 07:05 Lab results: Laboratory Results - last 24 hr 12/13/22 12/13/22 12/13/22 07:05 07:05 07:05 PT 31.0 H INR 2.6 H Sodium 143 Potassium 4.0 Chloride 110 H Carbon Dioxide 24 Anion Gap 13 BUN 11 Creatinine 0.68 Estim Creat Clear Calc 75.3 Estimated GFR > 60 Random Glucose 84 Calcium 8.7 Magnesium 2.1 B-Natriuretic Peptide 100 Progress Note: A&P Assessment and plan (1) PAF (paroxysmal atrial fibrillation): Status: Acute Plan [age] year female with paroxysmal atrial fibrillation and complex multivessel issues including mechanical mitral valve and transcatheter aortic valve placement the past. She has symptomatic atrial fibrillation and underwent successful cardioversion today. Continue flecainide 100 mg twice a day. Continue Cardizem 120 mg daily. Monitor electrolytes closely. EKG is showing some premature atrial complexes. My hope is that she does not develop AFib again. In that case we may have to try alternative medications like sotalol. Thank you for allowing me to participate in the care of your patient. Please feel free to contact me if you have any questions. Time Spent With Patient Time: Total time managing care of this patient today ____ minutes. Progress Note: Quality Stroke Does the patient have a stroke diagnosis?: No Procedures Date of Service Date of Service: 12/13/22
[2022-12-13] MEDS: Furosemide 40 MG TABLET PO (16:19)
[2022-12-13] MEDS: Warfarin Sodium 5 MG TABLET PO (19:17)
--- NOTE | 2022-12-14 | ECG_ITS ---
Test Reason : rhythm check Blood Pressure : / mmHG Vent. Rate : 093 BPM Atrial Rate : 093 BPM P-R Int : 168 ms QRS Dur : 104 ms QT Int : 368 ms P-R-T Axes : 000 051 -36 degrees QTc Int : 457 ms Sinus rhythm with Premature atrial complexes Minimal voltage criteria for LVH, may be normal variant ( [place] product ) ST & T wave abnormality, consider inferior ischemia Abnormal ECG When compared with ECG of 13-DEC-2022 15:14, Nonspecific T wave abnormality no longer evident in Lateral leads Referred By: Nuvia Feliciano Electronically Signed By:López Lion
[2022-12-14] MEDS: 0.9 % Sodium Chloride Flush 3 ML SYRINGE IVFLUSH ×2 (01:35→09:24)
[2022-12-14] MEDS: Levothyroxine Sodium 25 MCG TABLET PO (06:01)
--- NOTE | 2022-12-14 06:03 | PC.NURSE ---
pt S/P Cardioversion 12/13, pt was in NSR, this morning residential monitor tech informed this RN that pt has flipped into afib HR 68, pt asymptomatic. Dr. Mcdermott made aware. No new orders.
[2022-12-14 07:24] LABS: INTERNATIONAL NORM RATIO 2.3 (0.9-1.1); Prothrombin Time 26.9 SEC (10.0-13.1)
[2022-12-14 07:40] VITALS: BP 132/70; PULSE 78; RESP 18; TEMP 36.4; O2SAT 92
[2022-12-14] MEDS: Ascorbic Acid 250 MG TABLET PO (09:23)
[2022-12-14] MEDS: Ferrous Sulfate 324 MG TABLET.DR PO (09:24)
[2022-12-14] MEDS: Atorvastatin Calcium 20 MG TABLET PO (09:24)
[2022-12-14] MEDS: Sertraline HCL 100 MG TABLET 200 MG PO (09:24)
[2022-12-14] MEDS: dilTIAZem HCL CD 120 MG CAP.ER.DEG PO (09:24)
[2022-12-14] MEDS: predniSONE 5 MG TABLET 15 MG PO (09:24)
[2022-12-14] MEDS: Folic Acid 1 MG TABLET PO (09:24)
[2022-12-14] MEDS: Flecainide Acetate 50 MG TABLET 100 MG PO (09:24)
[2022-12-14 11:24] VITALS: BP 125/71; PULSE 97; RESP 20; TEMP 36.4; O2SAT 94
--- NOTE | 2022-12-14 11:41 | HO.POSTANES ---
Post Anesthesia Evaluation Post Anesthesia Evaluation Vital Signs: 125/71, 97, 20, 97.6F, 94%RA Anesthesia: General Mental Status: Awake Pain Control: Satisfactory Nausea/Vomiting: None Hydration: Adequate Anesthesia-Related Issues: No Anes. Related Issues
--- NOTE | 2022-12-14 11:59 | PM.PNCARD ---
Subjective Subjective Date of Service: 12/14/22 Interval history: Seen examined at bedside. She underwent cardioversion yesterday. Telemetry is showing that she has been in and out of atrial fibrillation. Feeling great. Denying shortness of breath palpitations currently. Physical Exam Vital Signs: Last Vital Signs Temp 97.6 F 12/14/22 11:24 Pulse 97 12/14/22 11:24 Resp 20 12/14/22 11:24 BP 125/71 12/14/22 11:24 Pulse Ox 94 12/14/22 11:24 O2 Del Method 12/14/22 11:24 O2 Flow Rate 2 12/13/22 15:15 BMI result Body Mass Index 26.5 GENERAL APPEARANCE: in no acute distress, pleasant. NECK: no carotid bruit, no significant jugular venous distention. SKIN: no suspicious lesions, warm and dry. HEART: Mechanical 1st heart sound, irregular rate and rhythm. LUNGS: clear to auscultation bilaterally. ABDOMEN: soft, nontender. EXTREMITIES: no edema. PERIPHERAL PULSES: equal. NEUROLOGIC: No gross deficits, AAO X 3 Objective Labs and Meds 12/12/22 05:21 12/13/22 07:05 Lab results: Laboratory Results - last 24 hr 12/14/22 07:01 PT 26.9 H INR 2.3 H Progress Note: A&P Assessment and plan (1) PAF (paroxysmal atrial fibrillation): Status: Acute Plan 67-year-old female presenting with symptomatic paroxysmal atrial fibrillation. Started on flecainide underwent cardioversion. Post cardioversion she has significant premature atrial complexes but was mostly in sinus rhythm. Overnight she has been noticed to be in atrial fibrillation. During telemetry she has been in and out of atrial fibrillation at this stage. She is completely asymptomatic. Generally when she develops atrial fibrillation she gets palpitation and dyspnea and she is denying both at this point. Clinically euvolemic. Continue flecainide 100 mg twice a day. Continue diltiazem 120 mg daily. Other medications as before. Can be discharged home and follow-up in the office. We will arrange a 7 days Holter monitor for her. Thank you for allowing me to participate in the care of your patient. Please feel free to contact me if you have any questions. Time Spent With Patient Time: Total time managing care of this patient today ____ minutes. Progress Note: Quality Stroke Does the patient have a stroke diagnosis?: No Procedures Date of Service Date of Service: 12/14/22
--- NOTE | 2022-12-14 12:23 | P.DS_ITS ---
DS: Providers Provider Date of Service: 12/14/22 Date of admission: 12/11/22 20:33 Primary care physician: Valentin Chopra MD Consults: 12/11/22 20:32 Consult to Cardiology Routine Consulting Provider: López Lion Reason for consultation: afib with rvr Has provider been notified: Yes 12/12/22 08:12 Consult to Pulmonology Routine Consulting Provider: [facility] Pulmonology Services Reason for consultation: xercise induced hypoxemia most likely related to interstitial lung disease. DS: Diagnosis Discharge Diagnosis (1) PAF (paroxysmal atrial fibrillation): Status: Acute (2) Pulmonary nodule: Status: Acute DS: Summary Hospital Course Hospital Course: from admission H+P by hospitalist CAITLIN Keita, 12/11/22: 67-year-old female with history of atrial fibrillation/flutter anticoagulated with Coumadin, heart failure with preserved ejection fraction, aortic stenosis s/p TAVR procedure in 08/2022, s/p [facility] Alex valve, history of amiodarone toxici ty, interstitial lung disease and COPD on chronic prednisone presented to the ED earlier today for evaluation of palpitations and KRAUS ongoing for 1 week. She was sent from cardiology office. On arrival, patient tachycardic to 155.? Blood pressure stable, vitals otherwise normal.? Mild leukocytosis 12.9.? Stable chronic normocytic anemia with H/H 10.4/33.8%.? Renal function and electrolyte levels normal.? Troponin baseline of 23.0.? BNP 192, minimally elevated from baseline.? CXR showing cardiomegaly without any acute cardiopulmonary disease.? Patient initially given 20 mg diltiazem push without sustained improvement and started on diltiazem drip. Pt to be admitted for atrial fibrillation with RVR. This 67yo F with AF, prior mechanical MV replacement, recent TAVR, and amiodarone-induced ILD presenting with palpitations from AF/RVR was admitted to the [facility] and placed on diltiazem drip. Cardiology was consulted. Due to persistent AF, she underwent cardioversion and was started on flecainide. Afterwards, she went back and forth between NSR and rate-controlled AF with no symptoms. She was discharged on flecainide and will need follow-up with Cardiology with cardiac event monitor. She was also seen by Pulmonology due to history of amiodarone-induced ILD and will need a repeat CT in 4-6 months to follow-up a semisolid right sided periphreal nodular densiy. Time Spent with Patient Time attestation: Total time managing care of this patient today __35__ minutes. Discharge coordination time: Greater than 30 minutes Quality: Safe Use of Opioids Does Pt have an Active Cancer Diagnosis on the Problem List?: No Quality: Stroke Does the patient have a stroke diagnosis?: No Physical Exam Vital Signs: Vital Signs: Last Vital Signs Temp 97.6 F 12/14/22 11:24 Pulse 97 12/14/22 11:24 Resp 20 12/14/22 11:24 BP 125/71 12/14/22 11:24 Pulse Ox 94 12/14/22 11:24 O2 Del Method 12/14/22 11:24 O2 Flow Rate 2 12/13/22 15:15 BMI result Body Mass Index 26.5 Gen: in no acute distress HEENT: sclera anicteric, moist mucus membranes Neck: supple Lungs: clear to auscultation bilaterally Heart: regular, mechanical S1 Abd: soft, non-tender, non-distended Ext: no edema Skin: warm/well-perfused Neuro: alert and oriented x3, no focal findings Psych: appropriate affect DS: Data Data Completed and Pending Completed studies during hospitalization [Text1]: Laboratory Results WBC 9.1 X10*3/uL (4.8-10.8) 12/12/22 05:21 RBC 3.55 X10*6/uL (4.20-5.50) L 12/12/22 05:21 Hgb 9.5 g/dl (12.0-16.0) L 12/12/22 05:21 Hct 31.6 % (37.0-47.0) L 12/12/22 05:21 MCV 89.0 fL (80.0-98.0) 12/12/22 05:21 MCH 26.8 pg (27.0-33.0) L 12/12/22 05:21 MCHC 30.1 g/dl (31.0-35.0) L 12/12/22 05:21 RDW 19.5 % (11.0-16.0) H 12/12/22 05:21 Plt Count 238 X10*3/uL (160-400) 12/12/22 05:21 MPV 12.6 fL (9.4-12.3) H 12/12/22 05:21 Immature Gran % (Auto) 1.4 % (0.0-0.4) H 12/12/22 05:21 Neut % (Auto) 76.7 % (45-73) H 12/12/22 05:21 Lymph % (Auto) 14.9 % (20-40) L 12/12/22 05:21 Terry % (Auto) 5.7 % (2-11) 12/12/22 05:21 Eos % (Auto) 1.0 % (0-4) 12/12/22 05:21 Baso % (Auto) 0.3 % (0-2) 12/12/22 05:21 Lymph # (Auto) 1.4 X10*3/uL (1.2-4.9) 12/12/22 05:21 Terry # (Auto) 0.5 X10*3/uL (0.1-1.2) 12/12/22 05:21 Eos # (Auto) 0.1 X10*3/uL (0.0-0.4) 12/12/22 05:21 Baso # (Auto) 0.0 X10*3/uL (0.0-0.2) 12/12/22 05:21 Abs Immat Gran (auto) 0.13 X10*3/uL (0.00-0.03) H 12/12/22 05:21 Absolute Neuts (auto) 7.0 x10*3/uL (2.0-8.3) 12/12/22 05:21 Absolute Nucleated RBC 0.000 X10*3/uL (0.0-0.012) 12/12/22 05:21 Nucleated RBC % (auto) 0.0 /100WBC (0.0-0.2) 12/12/22 05:21 PT 26.9 SEC (10.0-13.1) H 12/14/22 07:01 INR 2.3 (0.9-1.1) H 12/14/22 07:01 Sodium 143 mmol/L (135-145) 12/13/22 07:05 Potassium 4.0 mmol/L (3.3-5.1) 12/13/22 07:05 Chloride 110 mmol/L (96-108) H 12/13/22 07:05 Carbon Dioxide 24 mmol/L (22-29) 12/13/22 07:05 Anion Gap 13 (12-20) 12/13/22 07:05 BUN 11 mg/dL (9-16) 12/13/22 07:05 Creatinine 0.68 mg/dL (0.5-1.4) 12/13/22 07:05 Estim Creat Clear Calc 75.3 12/13/22 07:05 Estimated GFR > 60 12/13/22 07:05 Random Glucose 84 mg/dL (60-115) 12/13/22 07:05 Calcium 8.7 mg/dL (8.4-10.2) 12/13/22 07:05 Magnesium 2.1 mg/dL (1.6-2.6) 12/13/22 07:05 Total Bilirubin 0.7 mg/dL (0.0-1.0) 12/11/22 17:48 AST 29 U/L (5-31) 12/11/22 17:48 ALT 17 U/L (0-31) 12/11/22 17:48 Alkaline Phosphatase 90 U/L (39-117) 12/11/22 17:48 Troponin I High Sens 23.0 ng/L (<3.5-17.0) H 12/11/22 17:48 B-Natriuretic Peptide 100 pg/mL (<100) 12/13/22 07:05 Total Protein 6.5 g/dL (6.5-8.0) 12/11/22 17:48 Albumin 3.8 g/dL (3.5-5.0) 12/11/22 17:48 Lipase 14 U/L (8-78) 12/11/22 17:48 TSH 2.04 uIU/mL (0.32-4.0) 12/11/22 17:48 Urine Color Yellow 12/11/22 19:07 Urine Appearance Clear 12/11/22 19:07 Urine pH 6.0 (5.0-9.0) 12/11/22 19:07 Ur Specific Crosby >= 1.030 (1.005-1.025) H 12/11/22 19:07 Urine Protein Trace mg/dL (Neg-Trace) 12/11/22 19:07 Urine Glucose (UA) Negative mg/dL (Negative) 12/11/22 19:07 Urine Ketones Trace mg/dL (Negative) 12/11/22 19:07 Urine Blood Negative (Negative) 12/11/22 19:07 Urine Nitrite Negative (Negative) 12/11/22 19:07 Ur Leukocyte Esterase Trace (Negative) H 12/11/22 19:07 Urine RBC 0-2 /HPF (0-2) 12/11/22 19:07 Urine WBC 0-5 /HPF (0-5) 12/11/22 19:07 Ur Squamous Epith Cells 0-2 /HPF (0-2) 12/11/22 19:07 Urine Bacteria None Seen (None Seen) 12/11/22 19:07 Hyaline Casts 0-2 /LPF (0-2) 12/11/22 19:07 COVID-19 (ROS) Negative (Negative) 12/11/22 23:29 COVID-19 Clin Com See Note 12/11/22 23:29 Impressions Chest X-Ray 12/11/22 18:20 IMPRESSION: Cardiomegaly. No acute intrathoracic disease. Discharge Plan Discharge Anticipated Discharge Date/Time: 12/14/22 12:17 Patient Disposition: Home, Self-Care Discharge Diagnosis: atrial fibrillation with rapid ventricular response lung nodule Referrals: Valentin Chopra MD [Primary Care Provider] - 1 Week López Lion MD [Physician] - 1 Week Daren Kirkland MD [Physician] - 2 Weeks Discharge Medications: New flecainide 100 mg tablet 100 mg PO Q12H Qty: 60 0RF Rx Instructions: Correct dose is 100 mg twice daily Continued diltiazem HCl 120 mg capsule,extended release 24 hr 120 mg PO DAILY Qty: 30 5RF furosemide 40 mg tablet 40 mg PO DAILY Qty: 90 2RF Protocol: Hold for SBP< HOLD for SBP < : 90 sertraline 100 mg Tablet 200 mg PO DAILY atorvastatin 20 mg Tablet 20 mg PO DAILY folic acid 1 mg Tablet 1 mg PO DAILY Qty: 90 3RF warfarin 2.5 mg tablet 7.5 mg PO SUMOTU@1800 prednisone 5 mg tablet 15 mg PO DAILY Rx Instructions: see taper instructions 3 tabs a day , for 5 days , 2 tabs a day for 5 days , and then 1 tab a day to continue warfarin 2.5 mg tablet 5 mg PO WETHFRSA@1800 Protocol: Dose Management Condition: Saturday (Week One) Dose/Route: 5 mg Instruction: 2 x 2.5 mg tab lets Condition: Saturday Dose/Route: 7.5 mg Instruction: 3 x 2.5 mg tablets Condition: Saturday Dose/Route: 7.5 mg Instruction: 3 x 2.5 mg tablets Condition: Saturday Dose/Route: 5 mg Instruction: 2 x 2.5 mg tablets Condition: Dose/Route: 7.5 mg Instruction: 3 x 2.5 mg tablets Condition: Saturday Dose/Route: 5 mg Instruction: 2 x 2.5 mg tablets Condition: Saturday Dose/Route: 5 mg Instruction: 2 x 2.5 mg tablets Condition: Saturday (Week Two) Dose/Route: 7.5 mg Instruction: 3 x 2.5 mg tablets Condition: Saturday Dose/Route: 5 mg Instruction: 2 x 2.5 mg tablets Condition: Saturday Dose/Route: 7.5 mg Instruction: 3 x 2.5 mg tablets Condition: Saturday Dose/Route: 5 mg Instruction: 2 x 2.5 mg tablets Condition: Dose/Route: 7.5 mg Instruction: 3 x 2.5 mg tablets Condition: Saturday Dose/Route: 5 mg Instruction: 2 x 2.5 mg tablets Condition: Saturday Dose/Route: 5 mg Instruction: 2 x 2.5 mg tablets Protocol Text: Adjustment Start Date: Saturday12/10/22 INR Value: 2.2 INR Date: 12/10/22 Recheck Date: 12/17/22 Additional Instructions: take 7.5mg today and tomm then increase weekly dose no greens for 2-3 days, eat reds to raise inr Trelegy Ellipta 200-62.5-25 mcg blister with device 1 puff inhalation DAILY levothyroxine 25 mcg tablet 25 mcg PO DAILY@0600 albuterol sulfate [Ventolin HFA] 90 mcg/actuation HFA aerosol inhaler 1 puff inhalation Q4H PRN (Reason: Wheezing) ferrous sulfate 325 mg (65 mg iron) tablet 325 mg PO BID Discharge Orders: Discharge Order (Routine); Ordered 12/14/22 Ordered By: Nuvia Feliciano Diet: Advance to usual diet Activity on Discharge: As tolerated Stand Alone Forms: Patient Portal Discharge page Care Plan Goals: heart health lung health Health Concerns: atrial fibrillation with rapid ventricular response lung nodule Plan of Treatment: continue diltiazem 120 mg daily start flecainide 100 mg bid follow up with [facility] Cardiology; you will be set up with a cardiac event monitor follow up with [facility] Pulmonology; you should have repeat CT scan in 4-6 months Please follow up with your primary care doctor within 1 week. Return to the hospital if you experience recurrent or worsening symptoms. Assessment: See Discharge Summary.
--- NOTE | 2022-12-14 13:30 | MHC.CM.PN ---
Female 57 DX HTN emergency She lives with her . She works for [employer]. She is independent with all functional mobility. VAX x5. Requested a copy of her HCP. DP home self care. Pts will provide transport at discharge.
== END 2022-12-14 14:04 | disposition home or self-care (01) | DRG 309 ==
LOC: HO.ED 20:29 → HO.EDOVER 20:38 → HO.IMC 12-12 05:52
PROVIDERS: Internal Medicine Cardiovascular Disease; Nurse Practitioner Family; Physician Assistant; Admitting Provider Student in an Organized Health Care Education/Training Program; Emergency Provider Student in an Organized Health Care Education/Training Program; PCP Internal Medicine; Visit Provider Family Medicine
PROC: 5A2204Z Restoration of Cardiac Rhythm, Single (ICD-10-PCS; principal; 2022-12-13 14:30)
DX: I48.0 Paroxysmal atrial fibrillation (principal); I50.32 Chronic diastolic (congestive) heart failure; I11.0 Hypertensive heart disease with heart failure; E03.9 Hypothyroidism, unspecified; D64.9 Anemia, unspecified; J44.9 Chronic obstructive pulmonary disease, unspecified; J70.3 Chronic drug-induced interstitial lung disorders; F39 Unspecified mood [affective] disorder; R91.1 Solitary pulmonary nodule; T46.2X5S Adverse effect of other antidysrhythmic drugs, sequela; Z20.822 Contact with and (suspected) exposure to COVID-19; Z95.2 Presence of prosthetic heart valve; Z98.84 Bariatric surgery status; Z87.891 Personal history of nicotine dependence; Z88.8 Allergy status to other drugs, medicaments and biological substances; Z79.01 Long term (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; Z79.52 Long term (current) use of systemic steroids; Z79.890 Hormone replacement therapy; Z79.899 Other long term (current) drug therapy
CPT/HCPCS: 36415; 71046; 80048; 80053; 81001; 83690; 83735; 83880; 84443; 84484; 85025; 85610; 87635; 92960; 93005; 99211; 99212; 99285; J0330; J0461; J2370

== ENCOUNTER → 2022-12-18 13:04 | Outpatient (BNVA) | payer MEDICARE, MEDICAID, SELFPAY | PROVIDERS: PCP Internal Medicine; Visit Provider Internal Medicine | DX: Z95.2 Presence of prosthetic heart valve (principal); Z79.01 Long term (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; Z51.81 Encounter for therapeutic drug level monitoring | CPT/HCPCS: 85610; 99211 ==

== ENCOUNTER → 2023-01-03 09:41 | Outpatient (REF) | payer MEDICARE, MEDICAID, SELFPAY ==
--- NOTE | 2023-01-03 09:44 | HM_ITS ---
Conclusion: 1. Patient was monitored for total period of 6 days and 19 hours 2. Baseline rhythm predominantly sinus rhythm next 3. Intermittent episodes of atrial fibrillation noted with total burden of 13% with longest episode lasting 12 hours and 19 minutes, patient while in atrial fibrillation has rapid ventricular responses fastest heart rate of 157 beats per minute 3. One episode of pause noted on day 4 at 02:10 with junctional escape rhythm noted 4. Total of 29,353 PACs accounting for 3.9% of total beats account for frequent PACs 5. Patient did not report any symptoms MTDD
== END ==
LOC: HO.CARD 09:41
PROVIDERS: Absent Provider Internal Medicine Cardiovascular Disease; PCP Internal Medicine; Visit Provider Internal Medicine Cardiovascular Disease
DX: I48.0 Paroxysmal atrial fibrillation (principal); J44.9 Chronic obstructive pulmonary disease, unspecified; J84.9 Interstitial pulmonary disease, unspecified; R09.02 Hypoxemia; Z95.2 Presence of prosthetic heart valve; Z51.81 Encounter for therapeutic drug level monitoring; Z79.01 Long term (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
CPT/HCPCS: 85610; 93242; 99212

== ENCOUNTER → 2023-01-07 08:48 | Outpatient (BNVA) | payer MEDICARE, MEDICAID, SELFPAY | PROVIDERS: PCP Internal Medicine; Visit Provider Internal Medicine | DX: Z95.2 Presence of prosthetic heart valve (principal); Z79.01 Long term (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; Z51.81 Encounter for therapeutic drug level monitoring | CPT/HCPCS: 85610; 99211 ==

== ENCOUNTER → 2023-01-11 10:08 | Outpatient (BNVA) | payer MEDICARE, MEDICAID, SELFPAY | PROVIDERS: PCP Internal Medicine; Visit Provider Internal Medicine Cardiovascular Disease | DX: I48.0 Paroxysmal atrial fibrillation (principal); I50.30 Unspecified diastolic (congestive) heart failure; I45.5 Other specified heart block; Z95.2 Presence of prosthetic heart valve; Z79.01 Long term (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; Z51.81 Encounter for therapeutic drug level monitoring | CPT/HCPCS: 85610; 93005; 99211; 99212 ==

== ENCOUNTER → 2023-01-16 09:07 | Outpatient (BNVA) | payer MEDICARE, MEDICAID, SELFPAY | PROVIDERS: PCP Internal Medicine; Visit Provider Internal Medicine | DX: Z95.2 Presence of prosthetic heart valve (principal); Z79.01 Long term (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; Z51.81 Encounter for therapeutic drug level monitoring | CPT/HCPCS: 85610; 99211 ==

== ENCOUNTER 2023-01-18 09:33 | Outpatient (REF) | payer MEDICARE, MEDICAID, SELFPAY ==
[2023-01-18 09:42] VITALS: BP 136/66; PULSE 73; RESP 19; TEMP 36.6; O2SAT 95; BMI 27.4
--- NOTE | 2023-01-18 10:08 | PM.OP ---
Brief Operative Note Date of Service: 01/18/23 Pre-op diagnosis: Syndrome, paroxysmal atrial fibrillation Post-op diagnosis: same Procedure: Same Implants: After obtaining consent patient was brought to the minor surgery suite. Patient was then laid on the operating table in semi reclining position. The precordial area was then prepped and draped in a sterile fashion. Patient was then given 2% lidocaine with epinephrine intradermally and subcutaneously in the 4th intercostal space. Small stab incision was made at the area. A [employer] implantable loop recorder serial number [id number] was then implanted using modified Seldinger technique in the subcutaneous space. Measured R-waves at 0.87 mV. The incision was then closed with Steri-Strips. Pressure dressing and stent sterile covering was then applied Surgeon: Luis Antonio Nelson MD Anesthesia: local Was an Landscape Architect And Planner used for this Procedure?: No Estimated blood loss (mL): 1 Pathology: none sent Condition: stable Disposition: same day
== END 2023-01-18 09:34 | disposition home or self-care (01) ==
LOC: HO.MS 09:33
PROVIDERS: Visit Provider Internal Medicine Cardiovascular Disease
PROC: (CPT 33285; principal; 2023-01-18 10:00)
DX: I48.0 Paroxysmal atrial fibrillation (principal); Z79.01 Long term (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
CPT/HCPCS: 33285; C1764

== ENCOUNTER → 2023-02-04 08:45 | Outpatient (BNVA) | payer MEDICARE, MEDICAID, SELFPAY | PROVIDERS: PCP Internal Medicine; Visit Provider Internal Medicine | DX: Z95.2 Presence of prosthetic heart valve (principal); Z51.81 Encounter for therapeutic drug level monitoring; Z79.01 Long term (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 | CPT/HCPCS: 85610; 99211 ==

== ENCOUNTER → 2023-02-12 10:49 | Outpatient (BNVA) | payer MEDICARE, MEDICAID, SELFPAY | PROVIDERS: PCP Internal Medicine; Visit Provider Internal Medicine | DX: Z95.2 Presence of prosthetic heart valve (principal); Z79.01 Long term (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; Z51.81 Encounter for therapeutic drug level monitoring | CPT/HCPCS: 85610; 99211 ==

== ENCOUNTER → 2023-02-13 12:35 | Outpatient (REF) | payer MEDICARE, MEDICAID, SELFPAY | LOC: HO.SL 12:35 | PROVIDERS: PCP Internal Medicine; Visit Provider Internal Medicine Cardiovascular Disease | DX: G47.33 Obstructive sleep apnea (adult) (pediatric) (principal); G47.10 Hypersomnia, unspecified; I45.5 Other specified heart block | CPT/HCPCS: 95806 ==

== ENCOUNTER → 2023-02-18 09:03 | Outpatient (BNVA) | payer MEDICARE, MEDICAID, SELFPAY | PROVIDERS: PCP Internal Medicine; Visit Provider Internal Medicine | DX: Z95.2 Presence of prosthetic heart valve (principal); Z79.01 Long term (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; Z51.81 Encounter for therapeutic drug level monitoring | CPT/HCPCS: 85610; 99211 ==

== ENCOUNTER → 2023-02-20 08:07 | Outpatient (BNVA) | payer MEDICARE, MEDICAID, SELFPAY | PROVIDERS: PCP Internal Medicine; Visit Provider Internal Medicine | DX: Z95.2 Presence of prosthetic heart valve (principal); Z79.01 Long term (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; Z51.81 Encounter for therapeutic drug level monitoring | CPT/HCPCS: 85610; 99211 ==

== ENCOUNTER 2023-02-25 08:21 | Outpatient (REF) | payer MEDICARE, MEDICAID, SELFPAY ==
[2023-02-25 09:39] LABS: Prothrombin Time 88.6 SEC (10.0-13.1)
[2023-02-25 09:42] LABS: INTERNATIONAL NORM RATIO 7.1 (0.9-1.1)
== END 2023-02-25 08:22 | disposition home or self-care (01) ==
LOC: HO.LAB 08:21
PROVIDERS: PCP Internal Medicine; Visit Provider Internal Medicine
DX: Z95.2 Presence of prosthetic heart valve (principal); Z51.81 Encounter for therapeutic drug level monitoring; Z79.01 Long term (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
CPT/HCPCS: 36415; 85610; 99212

== ENCOUNTER → 2023-02-26 20:30 | Outpatient (REF) | payer MEDICARE, MEDICAID, SELFPAY | LOC: HO.SL 20:30 | PROVIDERS: Absent Provider Internal Medicine; PCP Internal Medicine; Visit Provider Internal Medicine Cardiovascular Disease | DX: G47.33 Obstructive sleep apnea (adult) (pediatric) (principal); G47.34 Idiopathic sleep related nonobstructive alveolar hypoventilation; Z79.01 Long term (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 | CPT/HCPCS: 85610; 95811; 99211 ==

== ENCOUNTER → 2023-03-01 08:16 | Outpatient (BNVA) | payer MEDICARE, MEDICAID, SELFPAY | PROVIDERS: PCP Internal Medicine; Visit Provider Internal Medicine | DX: Z95.2 Presence of prosthetic heart valve (principal); Z79.01 Long term (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; Z51.81 Encounter for therapeutic drug level monitoring | CPT/HCPCS: 85610; 99211 ==

== ENCOUNTER → 2023-03-04 08:17 | Outpatient (BNVA) | payer MEDICARE, MEDICAID, SELFPAY | PROVIDERS: PCP Internal Medicine; Visit Provider Internal Medicine | DX: Z95.2 Presence of prosthetic heart valve (principal); Z79.01 Long term (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; Z51.81 Encounter for therapeutic drug level monitoring | CPT/HCPCS: 85610; 99211 ==

== ENCOUNTER → 2023-03-07 08:26 | Outpatient (BNVA) | payer MEDICARE, MEDICAID, SELFPAY | PROVIDERS: PCP Internal Medicine; Visit Provider Internal Medicine | DX: Z95.2 Presence of prosthetic heart valve (principal); Z79.01 Long term (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; Z51.81 Encounter for therapeutic drug level monitoring; G47.33 Obstructive sleep apnea (adult) (pediatric); J44.9 Chronic obstructive pulmonary disease, unspecified; J84.9 Interstitial pulmonary disease, unspecified; I48.0 Paroxysmal atrial fibrillation; I50.30 Unspecified diastolic (congestive) heart failure; R09.02 Hypoxemia | CPT/HCPCS: 85610; 99211; 99212 ==

== ENCOUNTER → 2023-03-12 09:43 | Outpatient (BNVA) | payer MEDICARE, MEDICAID, SELFPAY | PROVIDERS: PCP Internal Medicine; Visit Provider Internal Medicine | DX: Z95.2 Presence of prosthetic heart valve (principal); Z79.01 Long term (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; Z51.81 Encounter for therapeutic drug level monitoring | CPT/HCPCS: 85610; 99211 ==

== ENCOUNTER → 2023-03-18 08:21 | Outpatient (BNVA) | payer MEDICARE, MEDICAID, SELFPAY | PROVIDERS: PCP Internal Medicine; Visit Provider Internal Medicine | DX: Z95.2 Presence of prosthetic heart valve (principal); Z79.01 Long term (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; Z51.81 Encounter for therapeutic drug level monitoring | CPT/HCPCS: 85610; 99211 ==

== ENCOUNTER 2023-03-20 08:58 | Outpatient (REF) | payer MEDICARE, MEDICAID, SELFPAY ==
--- NOTE | ~2023-03-20 | MM_ITS ---
EXAMINATION: MM SCREENING DIGITAL BREAST TOMOSYNTHESIS, BILATERAL CLINICAL INFORMATION: Screening. Asymptomatic. The lifetime risk of breast cancer based on the Tyrer-Cuzick Model is 5.2%. COMPARISON: Mammography: January 24, 2016 and October 09, 2010 TECHNIQUE: Digital breast tomosynthesis is performed in both the craniocaudal and mediolateral oblique views along with computer-aided detection (CAD). Synthesized 2D images are generated from the tomosynthesis. FINDINGS: The breasts are almost entirely fatty (ACR BI-RADS breast composition Category a). There are no significant masses, abnormal calcifications, or other abnormalities. Left cardiac recorder present. MM/MM tomosynthesis screening BI IMPRESSION: No significant changes ASSESSMENT: BI-RADS 1: Negative RECOMMENDATION: Routine annual mammography screening. This patient's information was entered into a reminder system with a target due date for their next mammogram.
== END 2023-03-20 08:59 | disposition home or self-care (01) ==
LOC: HO.MAMMO 08:58
PROVIDERS: PCP Internal Medicine; Visit Provider Internal Medicine
DX: Z12.31 Encounter for screening mammogram for malignant neoplasm of breast (principal)
CPT/HCPCS: 77063; 77067

== ENCOUNTER → 2023-03-21 09:49 | Outpatient (BNVA) | payer MEDICARE, MEDICAID, SELFPAY | PROVIDERS: PCP Internal Medicine; Referring Provider Internal Medicine; Visit Provider Internal Medicine Cardiovascular Disease | DX: I50.30 Unspecified diastolic (congestive) heart failure (principal); I48.0 Paroxysmal atrial fibrillation; I45.5 Other specified heart block; Z95.2 Presence of prosthetic heart valve | CPT/HCPCS: 93005; 99212 ==

== ENCOUNTER 2023-03-26 10:00 | Inpatient (IN) | payer MEDICARE, MEDICAID, SELFPAY ==
[2023-03-26] VITALS (8 sets, daily range): BP systolic 91–124; BP diastolic 35–52; PULSE 56–81; RESP 16–25; TEMP 36.8; O2SAT 83–97; BMI 28.3
--- NOTE | ~2023-03-26 | XR_ITS ---
EXAMINATION: XR CHEST CLINICAL INFORMATION: Shortness of breath. COMPARISON: Chest 12/11/2022 TECHNIQUE: Frontal view of the chest was obtained. FINDINGS: The lungs are expanded diffuse patchy opacity seen throughout both lungs suggestive of infiltrates. Differential includes pulmonary edema. The heart size and pulmonary vascularity is normal. No gross bony abnormality seen. There is a loop recorder along the left anterior chest wall. No gross bony abnormality seen. XR/XR chest 1V IMPRESSION: Diffuse patchy opacity throughout both lungs suggestive of infiltrates. Differential diagnosis includes pulmonary edema.
--- NOTE | 2023-03-26 10:13 | ED.SOB ---
HPI - SOB/Dyspnea General Chief Complaint: Dyspnea Stated Complaint: worsening cough, sob, per ems Time Seen by Provider: 03/26/23 10:11 Source: patient and EMS Mode of arrival: EMS Limitations: no limitations History of Present Illness HPI Narrative: Shortness of breath for months, had a difficult time in the winter. Now patient with phlegm that is bautista. She is having some lightheadness. 4 days ago fell in the shower. En route patient had iv solumedrol and a duoneb. She denies fever MD elicited complaint: shortness of breath Pertinent past history: COPD Onset (ago): week(s) Related Data Home Medications Medication Instructions Recorded Confirmed levothyroxine 25 mcg tablet 25 mcg PO DAILY@0600 09/01/20 03/26/23 atorvastatin 20 mg tablet 20 mg PO DAILY 04/26/21 03/26/23 sertraline 100 mg tablet 200 mg PO DAILY 04/26/21 03/26/23 ferrous sulfate 325 mg (65 mg 975 mg PO DAILY@1600 12/10/22 03/26/23 iron) tablet warfarin 2.5 mg tablet 7.5 mg PO DAILY@1800 01/11/23 03/26/23 zolpidem 5 mg tablet 5 mg PO BEDTIME PRN Insomnia 02/18/23 03/26/23 empagliflozin 10 mg tablet 10 mg PO BEDTIME 03/26/23 03/26/23 (Jardiance) fluticasone fur. 200 mcg-umeclid 1 ea inhalation DAILY 03/26/23 03/26/23 62.5 mcg-vilant 25 mcg inhalat.powder (Trelegy Ellipta) furosemide 40 mg tablet 40 mg PO DAILY@1600 03/26/23 03/26/23 Previous Rx's Medication Instructions Recorded folic acid 1 mg tablet 1 mg PO DAILY #90 tabs 10/24/22 diltiazem HCl 120 mg 120 mg PO DAILY #90 caps 01/07/23 capsule,extended release 24 hr flecainide 100 mg tablet 100 mg PO Q12H #60 tabs 03/15/23 Allergies Allergy/AdvReac Type Severity Reaction Status Date / Time amiodarone Allergy Intermediate Swelling Verified 03/21/23 10:11 Review of Systems Review of Systems: Yes all other systems are reviewed and are negative Respiratory: Comments: cough and shortness of breath Neurologic: Denies Sensory deficit (Neuro) [facility] Past Medical History Medical History (Updated 03/26/23 @ 14:39 by CAITLIN Ramirez) (HFpEF) heart failure with preserved ejection fraction Abnormal EKG Anemia Aortic stenosis Atrial fibrillation with rapid ventricular response Atrial flutter Atrial flutter with rapid ventricular response Bronchitis due to Staphylococcus aureus Cardiac pacemaker COPD (chronic obstructive pulmonary disease) COPD (chronic obstructive pulmonary disease) Current use of anticoagulant therapy Exercise hypoxemia Heart failure History of cardioversion History of transcatheter aortic valve replacement (TAVR) Hypoxia Interstitial lung disease Interstitial lung disease Interstitial lung disease Nocturnal hypoxemia Obesity Paroxysmal atrial fibrillation Persistent atrial fibrillation Pulmonary nodule Surgical History History of cardiac pacemaker History of sleeve gastrectomy (~2017) Hx of section Hx of mitral valve replacement (~2004) Hx of transesophageal echocardiography (SHELIA) for monitoring (~2015) S/P MVR (mitral valve replacement) Family History Family History Father No problems noted. Mother CVD (cardiovascular disease) Social History Social History Household Members: Family Housing: House Do you presently have visiting nurse or other home services: No Alcohol intake: never Patient Tobacco Use Status: Former Tobacco user Quit Date: 2014 Tobacco use type: Cigarette Years Smoked: 40 Smoked in Last 30 Days: No Use of substances other than those prescribed or required for medical reasons: No Advance Directives: Yes Advance Directives on File: Yes Advance Directives Date on File: 08/28/22 service: No Current occupational status: disabled Physical Exam Vital Signs: Vital Signs: Last Vital Signs Temp 98.3 F 03/26/23 10:51 Pulse 72 03/26/23 10:51 Resp 18 03/26/23 10:51 BP 118/35 L 03/26/23 10:51 Pulse Ox 95 03/26/23 10:51 O2 Del Method Room Air 03/26/23 10:51 Oxygen Flow Rate 4 03/26/23 10:12 BMI result Body Mass Index 28.3 Const: General: healthy appearing Nutritional Appearance: average body habitus Orientation/consciousness: oriented to person and patient oriented x3 Limitations: no limitations HEENT: Head: Yes normal to inspection Ears: external ears normal General nose exam: Normal external nose present Mouth: Normal oral and palatal mucosa present and oropharynx normal Throat: Yes posterior oropharynx normal Eyes: General: appearance normal, both eyes and all related structures Neck: Other: supple Neck: Yes normal visual inspection Chest: Chest palpation & inspection: normal inspection of the chest Resp: Other: bilateral wheezing and rhonchi Cardio: Jugular venous distension: no JVD Rate: regular rate Rhythm: regular rhythm Heart sounds: S1 normal heart sound present and S2 normal heart sound present GI: Inspection: Yes normal to inspection Palpation (GI): Soft to palpation, nontender and No hepatosplenomegaly present Auscultation: normal bowel sounds : General: Yes no CVA tenderness Back/Spine/Pelvis: Back: no CVA tenderness Skin: General skin exam: no rashes or lesions noted Neuro: General: oriented to person and patient oriented x3 Cranial nerves: Yes CN's II-XII intact bilaterally Motor exam (neuro): 5/5 motor strength present throughout Sensory Exam: No Sensory deficit (Neuro) Extrem: General: Yes normal to inspection Psych: Appearance: grossly normal Course Reevaluation(s) Reevaluation #1: Patient xrays are looking like pulmonary edema, will start to diurese and admit Time: 12:16 Reevaluation #2: BNP only 188, will obtain Blood cx and start ceftriaxone and admit Time: 13:13 Reevaluation #3: I spent 40 minutes of critical care, with interventions, assessments, speaking to patient, consultants, and family. Medications Administered Discontinued Medications Generic Name Dose Route Start Last Admin Trade Name Freq PRN Reason Stop Dose Admin Albuterol Sulfate 10 mg 03/26/23 10:11 03/26/23 10:22 Albuterol Sulfate (0.083%) 2.5 Mg/3 Ml Vial.Neb INHALE 03/26/23 10:12 10 mg ONCE ONE Administration Furosemide 20 mg 03/26/23 12:14 03/26/23 13:18 Furosemide 20 Mg/2 Ml Vial IVPUSH 03/26/23 12:15 20 mg ONCE ONE Administration Protocol Ceftriaxone Sodium 1 gm/ 50 mls @ 100 mls/hr 03/26/23 13:10 03/26/23 13:18 Sodium Chloride IV 03/26/23 13:39 100 mls/hr ONCE ONE Administration Medical Decision Making Differential Diagnosis Differential Diagnoses: The differential diagnosis associated with the presentation includes (COPD, CHF, pneumonia, interstitial lung disease) Admission/Observation Consideration of admission/observation: Escalation of care including admission/observation considered (upon arrival this 67 yo female with worsening shortness of breath with a history of COPD, CHF, interstitial lung disease was considered for admission) Consult Healthcare Provider Management of the patient was discussed with: Hospitalist Lab Data MDM Lab Attestation statement: I reviewed the patient's lab results. 03/26/23 11:01 03/26/23 11:01 Labs: Lab Results 03/26/23 03/26/23 03/26/23 Range/Units 10:51 11:01 11:01 WBC 9.4 (4.8-10.8) X10*3/uL RBC 4.28 (4.20-5.50) X10*6/uL Hgb 11.5 L (12.0-16.0) g/dl Hct 36.7 L (37.0-47.0) % MCV 85.7 (80.0-98.0) fL MCH 26.9 L (27.0-33.0) pg MCHC 31.3 (31.0-35.0) g/dl RDW 14.4 (11.0-16.0) % Plt Count 199 (160-400) X10*3/uL MPV 12.9 H (9.4-12.3) fL Immature Gran % (Auto) 0.5 H (0.0-0.4) % Neut % (Auto) 91.7 H (45-73) % Lymph % (Auto) 3.8 L (20-40) % [place] % (Auto) 3.7 (2-11) % Eos % (Auto) 0.2 (0-4) % Baso % (Auto) 0.1 (0-2) % Lymph # (Auto) 0.4 L (1.2-4.9) X10*3/uL [place] # (Auto) 0.4 (0.1-1.2) X10*3/uL Eos # (Auto) 0.0 (0.0-0.4) X10*3/uL Baso # (Auto) 0.0 (0.0-0.2) X10*3/uL Abs Immat Gran (auto) 0.05 H (0.00-0.03) X10*3/uL Absolute Neuts (auto) 8.6 H (2.0-8.3) x10*3/uL Absolute Nucleated RBC 0.000 (0.0-0.012) X10*3/uL Nucleated RBC % (auto) 0.0 (0.0-0.2) /100WBC Smear Tech's Comments VERIFIED Sodium 141 (135-145) mmol/L Potassium 3.3 (3.3-5.1) mmol/L Chloride 105 (96-108) mmol/L Carbon Dioxide 21 L (22-29) mmol/L Anion Gap 18 (12-20) BUN 12 (9-16) mg/dL Creatinine 0.68 (0.5-1.4) mg/dL Estim Creat Clear Calc 74.7 Estimated GFR > 60 Random Glucose 97 (60-115) mg/dL Calcium 9.0 (8.4-10.2) mg/dL Troponin I High Sens (<3.5-17.0) ng/L B-Natriuretic Peptide (<100) pg/mL Influenza Type A (PCR) NEGATIVE (Negative) Influenza Type B (PCR) NEGATIVE (Negative) RSV RNA Qual (PCR) NEGATIVE (Negative) SARS-CoV-2 RNA (RT-PCR) NEGATIVE (Negative) 03/26/23 03/26/23 03/26/23 Range/Units 11:01 11:01 12:58 WBC (4.8-10.8) X10*3/uL RBC (4.20-5.50) X10*6/uL Hgb (12.0-16.0) g/dl Hct (37.0-47.0) % MCV (80.0-98.0) fL MCH (27.0-33.0) pg MCHC (31.0-35.0) g/dl RDW (11.0-16.0) % Plt Count (160-400) X10*3/uL MPV (9.4-12.3) fL Immature Gran % (Auto) (0.0-0.4) % Neut % (Auto) (45-73) % Lymph % (Auto) (20-40) % [place] % (Auto) (2-11) % Eos % (Auto) (0-4) % Baso % (Auto) (0-2) % Lymph # (Auto) (1.2-4.9) X10*3/uL [place] # (Auto) (0.1-1.2) X10*3/uL Eos # (Auto) (0.0-0.4) X10*3/uL Baso # (Auto) (0.0-0.2) X10*3/uL Abs Immat Gran (auto) (0.00-0.03) X10*3/uL Absolute Neuts (auto) (2.0-8.3) x10*3/uL Absolute Nucleated RBC (0.0-0.012) X10*3/uL Nucleated RBC % (auto) (0.0-0.2) /100WBC Smear Tech's Comments Sodium (135-145) mmol/L Potassium (3.3-5.1) mmol/L Chloride (96-108) mmol/L Carbon Dioxide (22-29) mmol/L Anion Gap (12-20) BUN (9-16) mg/dL Creatinine (0.5-1.4) mg/dL Estim Creat Clear Calc Estimated GFR Random Glucose (60-115) mg/dL Calcium (8.4-10.2) mg/dL Troponin I High Sens 17.2 H 19.5 H (<3.5-17.0) ng/L B-Natriuretic Peptide 188 H (<100) pg/mL Influenza Type A (PCR) (Negative) Influenza Type B (PCR) (Negative) RSV RNA Qual (PCR) (Negative) SARS-CoV-2 RNA (RT-PCR) (Negative) Independent Interpretation I performed an independent interpretation of an: EKG (sinus 60, lateral flattening, no acute ischemia) and Plain X-Ray (CXR interstitial edema, ) Independent Historian Clinical information obtained from an independent historian. History obtained from or confirmed by: EMS Chronic Conditions Patient?s care impacted by: Other (COPD) Discharge Plan Discharge Clinical Impression: COPD (chronic obstructive pulmonary disease), Increasing shortness of breath, Heart failure Patient Disposition: Admitted As Inpatient
--- NOTE | 2023-03-26 10:16 | ECG_ITS ---
Test Reason : shortness of breath Blood Pressure : / mmHG Vent. Rate : 064 BPM Atrial Rate : 064 BPM P-R Int : 112 ms QRS Dur : 114 ms QT Int : 504 ms P-R-T Axes : 056 057 091 degrees QTc Int : 519 ms Normal sinus rhythm with sinus arrhythmia Minimal voltage criteria for LVH, may be normal variant ( Bebo product ) T wave abnormality, consider lateral ischemia Abnormal ECG When compared with ECG of 14-DEC-2022 11:41, Premature atrial complexes are no longer Present T wave inversion now evident in Lateral leads QT has lengthened Referred By: Freddie Hill Electronically Signed By:JUMANA MOSES MD
[2023-03-26] MEDS: Albuterol Sulfate (0.083%) 2.5 MG/3 ML VIAL.NEB 10 MG INHALE (10:22)
[2023-03-26 11:11] LABS: Basophils Percent Auto 0.1 % (0-2); Eosinophils Percent Auto 0.2 % (0-4); Hematocrit 36.7 % (37.0-47.0); Hemoglobin 11.5 g/dl (12.0-16.0); Imm Gran Abs Auto 0.05 X10*3/uL (0.00-0.03); Imm Gran Pct Auto 0.5 % (0.0-0.4); Lymphocytes Absolute Auto 0.4 X10*3/uL (1.2-4.9); Lymphocytes Percent Auto 3.8 % (20-40); MANUAL DIFF FLAG SCAN; Mean Corpuscular HGB Conc 31.3 g/dl (31.0-35.0); Mean Corpuscular Hemoglobin 26.9 pg (27.0-33.0); Mean Corpuscular Volume 85.7 fL (80.0-98.0); Mean Platelet Volume 12.9 fL (9.4-12.3); Monocytes Absolute Auto 0.4 X10*3/uL (0.1-1.2); Monocytes Percent Auto 3.7 % (2-11); Neutrophils Absolute Auto 8.6 x10*3/uL (2.0-8.3); Neutrophils Percent Auto 91.7 % (45-73); Platelet Count 199 X10*3/uL (160-400); Red Blood Count 4.28 X10*6/uL (4.20-5.50); Red Cell Distribution Width 14.4 % (11.0-16.0); SCAN SMEAR FLAG 1; White Blood Count 9.4 X10*3/uL (4.8-10.8)
[2023-03-26 11:21] LABS: Anion Gap 18 (12-20); Blood Urea Nitrogen 12 mg/dL (9-16); Carbon Dioxide 21 mmol/L (22-29); Chloride 105 mmol/L (96-108); Creatinine Clr Calc Pharmacy 74.7; Estimated Glomerular Filt Rate > 60; Glucose Random 97 mg/dL (60-115); Potassium 3.3 mmol/L (3.3-5.1); Sodium 141 mmol/L (135-145)
[2023-03-26 11:29] LABS: Troponin-I High Sensitivity 17.2 ng/L (<3.5-17.0)
[2023-03-26 11:31] LABS: SLIDE REVIEW VERIFIED
[2023-03-26 11:45] LABS: Influenza A PCR NEGATIVE (Negative); Influenza B PCR NEGATIVE (Negative); Resp Syncy Virus RNA Qual PCR NEGATIVE (Negative); SARS COV2 PCR INHOUSE NEGATIVE (Negative)
[2023-03-26 12:49] LABS: B Type Natriuretic Peptide 188 pg/mL (<100)
[2023-03-26] MEDS: cefTRIAXone sodium 1 GM in 0.9 % Sodium Chloride 50 ML IV (13:18)
[2023-03-26] MEDS: Furosemide 20 MG/2 ML VIAL IVPUSH (13:18)
[2023-03-26 13:47] LABS: Troponin-I High Sensitivity 19.5 ng/L (<3.5-17.0)
--- NOTE | 2023-03-26 14:19 | P.HPHOSP_ITS ---
History of Present Illness Date of Service: 03/26/23 Attending physician on admission: Fallon Zaragoza Chief Complaint: sob, productive cough 67-year-old female with history of atrial fibrillation/flutter anticoagulated with Coumadin, heart failure with preserved ejection fraction, aortic stenosis s/p TAVR procedure in 08/2022, s/p St. Alex valve, history of amiodarone toxicity, interstitial lung disease and COPD with chronic hypoxemic respiratory failure presented to the ED earlier today for evaluation of sob and productive cough ongoing for 4 days. She reports worsening sob, both at rest and with exertion, despite compliance with supplemental O2. Has cough with brown sputum production, different from baseline. There is also nasal congestion and intermittent lightheadedness. No fevers, chills, sore throat, abd pain, n/v/d, orthopnea, PND, palpitations, or chest pain. No known sign contacts. On arrival, no acute hypoxia, patient afebrile, vitals otherwise stable. No leukocytosis. Renal function and electrolytes are baseline. Initial trop 17.2, repeat 19.5. BNP 188. Negative for influenza, RSV, and COVID-19. INR 2.4. CXR showing diffuse patchy opacity thoughout both lungs suggestive of infiltrates, differential could include pulmonary edema. In the ED, she received 20mg IV lasix, albuterol neb, and 1g ceftriaxone. Review of Systems Review of Systems: Constitutional - Awake and Alert, No apparent distress Eyes - PERRLA, EOMI Cardiovascular - S1S2, RRR, No edema Respiratory - Normal lung expansion, Normal respiratory effort, No respiratory distresson baseline 4L O2, diffuse bilateral rhonchi with scattered expiratory wheezes Gastrointestinal - NT / ND; +BS; No rebound or guarding Extremities - no calf tenderness bilaterally, no swelling Skin - Warm/Dry Neurological - Alert & oriented x3, CN II-XII in tact, 5/5 strength BUE and BLE Psychological - Appropriate affect [facility] Medical History (Updated 03/26/23 @ 14:39 by CAITLIN Ramirez) (HFpEF) heart failure with preserved ejection fraction Abnormal EKG Anemia Aortic stenosis Atrial fibrillation with rapid ventricular response Atrial flutter Atrial flutter with rapid ventricular response Bronchitis due to Staphylococcus aureus Cardiac pacemaker COPD (chronic obstructive pulmonary disease) COPD (chronic obstructive pulmonary disease) Current use of anticoagulant therapy Exercise hypoxemia Heart failure History of cardioversion History of transcatheter aortic valve replacement (TAVR) Hypoxia Interstitial lung disease Interstitial lung disease Interstitial lung disease Nocturnal hypoxemia Obesity Paroxysmal atrial fibrillation Persistent atrial fibrillation Pulmonary nodule Family History Father No problems noted. Mother CVD (cardiovascular disease) Surgical History History of cardiac pacemaker History of sleeve gastrectomy (~2017) Hx of section Hx of mitral valve replacement (~2004) Hx of transesophageal echocardiography (SHELIA) for monitoring (~2015) S/P MVR (mitral valve replacement) Social History Household Members: Family Housing: House Do you presently have visiting nurse or other home services: No Alcohol intake: never Patient Tobacco Use Status: Former Tobacco user Quit Date: 2014 Tobacco use type: Cigarette Years Smoked: 40 Smoked in Last 30 Days: No Use of substances other than those prescribed or required for medical reasons: No Currently Displaying Signs/Symptoms of Drug Intoxication Withdrawal: No Have you been hit, kicked, punched, or otherwise hurt by someone within the past year? If so, by whom?: No Do you feel safe in your current relationship?: No Is there a partner from a previous relationship who is making you feel unsafe now?: No Are you made to feel afraid or neglected: No Advance Directives: Yes Advance Directives on File: Yes Advance Directives Date on File: 08/28/22 Recently lost weight without trying: Unsure Eating poorly because of decreased appetite: No Nutrition Risks: No Nutritional Risk Patient : No : No Poor oral hygiene: No service: No Current occupational status: disabled Meds Allergies Allergy/AdvReac Type Severity Reaction Status Date / Time amiodarone Allergy Intermediate Swelling Verified 03/21/23 10:11 Active Medications: Current Medications Acetaminophen (Acetaminophen 325 Mg Tablet) 650 mg PO Q6H PRN PRN Reason: Pain, Mild (Pain Scale 1-3) Albuterol Sulfate (Albuterol Sulfate (0.083%) 2.5 Mg/3 Ml Vial.Neb) 2.5 mg INHALE Q2H PRN PRN Reason: Shortness of Breath/Wheezing Albuterol/Ipratropium (Albuterol/Iprat 2.5/0.5mg 3 Ml Ampul.Neb) 3 ml INHALE RQ4H WHILE AWAKE [facility] Docusate Sodium (Docusate Sodium 100 Mg Capsule) 100 mg PO DAILY PRN PRN Reason: Constipation Ceftriaxone Sodium 1 gm/ (Sodium Chloride) 50 mls @ 100 mls/hr IV Q24H [facility] Doxycycline Hyclate 100 mg/ (Sodium Chloride) 250 mls @ 166.67 mls/hr IV Q12H [facility] Methylprednisolone Sodium Succinate (Methylprednisolone Sod Succ 40 Mg/Ml Vial) 40 mg IVPUSH Q8H [facility] Ondansetron HCl (Ondansetron Hcl 4 Mg/2 Ml Vial) 4 mg IVPUSH Q8H PRN PRN Reason: Nausea and Vomiting Pharmacy Consult (Consult Rx Perform Med Rec) 1 each MISCELLANE ONCE PRN PRN Reason: Consult order Sodium Chloride (0.9 % Sodium Chloride Flush 3 Ml Syringe) 3 ml IVFLUSH QSHIFT [facility] Home Medications Medication Instructions Recorded Confirmed Last Taken Type levothyroxine 25 mcg tablet 25 mcg PO DAILY@0600 09/01/20 03/26/23 03/26/23 History atorvastatin 20 mg tablet 20 mg PO DAILY 04/26/21 03/26/23 03/26/23 History sertraline 100 mg tablet 200 mg PO DAILY 04/26/21 03/26/23 03/26/23 History ferrous sulfate 325 mg (65 mg 975 mg PO DAILY@1600 12/10/22 03/26/23 03/25/23 History iron) tablet warfarin 2.5 mg tablet 7.5 mg PO DAILY@1800 01/11/23 03/26/23 03/25/23 History zolpidem 5 mg tablet 5 mg PO BEDTIME PRN Insomnia 02/18/23 03/26/23 03/25/23 H istory empagliflozin 10 mg tablet 10 mg PO BEDTIME 03/26/23 03/26/23 03/25/23 History (Jardiance) fluticasone fur. 200 mcg-umeclid 1 ea inhalation DAILY 03/26/23 03/26/23 03/26/23 History 62.5 mcg-vilant 25 mcg inhalat.powder (Trelegy Ellipta) furosemide 40 mg tablet 40 mg PO DAILY@1600 03/26/23 03/26/23 03/25/23 History Physical Exam Vital Signs and Narrative: Vital Signs: Last Vital Signs Temp 98.3 F 03/26/23 10:51 Pulse 72 03/26/23 10:51 Resp 18 03/26/23 10:51 BP 118/35 L 03/26/23 10:51 Pulse Ox 95 03/26/23 10:51 O2 Del Method Room Air 03/26/23 10:51 Oxygen Flow Rate 4 03/26/23 10:12 BMI result Body Mass Index 28.3 Results Labs 03/26/23 11:01 03/26/23 11:01 Labs: Laboratory Results - last 24 hr 03/26/23 03/26/23 03/26/23 10:51 11:01 11:01 MCV 85.7 MCH 26.9 L MCHC 31.3 RDW 14.4 Plt Count 199 MPV 12.9 H Immature Gran % (Auto) 0.5 H Neut % (Auto) 91.7 H Lymph % (Auto) 3.8 L [place] % (Auto) 3.7 Eos % (Auto) 0.2 Baso % (Auto) 0.1 Lymph # (Auto) 0.4 L [place] # (Auto) 0.4 Eos # (Auto) 0.0 Baso # (Auto) 0.0 Abs Immat Gran (auto) 0.05 H Absolute Neuts (auto) 8.6 H Absolute Nucleated RBC 0.000 Nucleated RBC % (auto) 0.0 Smear Tech's Comments VERIFIED Anion Gap 18 Estim Creat Clear Calc 74.7 Estimated GFR > 60 Random Glucose 97 Calcium 9.0 Troponin I High Sens B-Natriuretic Peptide Influenza Type A (PCR) NEGATIVE Influenza Type B (PCR) NEGATIVE RSV RNA Qual (PCR) NEGATIVE SARS-CoV-2 RNA (RT-PCR) NEGATIVE 03/26/23 03/26/23 03/26/23 11:01 11:01 12:58 MCV MCH MCHC RDW Plt Count MPV Immature Gran % (Auto) Neut % (Auto) Lymph % (Auto) [place] % (Auto) Eos % (Auto) Baso % (Auto) Lymph # (Auto) [place] # (Auto) Eos # (Auto) Baso # (Auto) Abs Immat Gran (auto) Absolute Neuts (auto) Absolute Nucleated RBC Nucleated RBC % (auto) Smear Tech's Comments Anion Gap Estim Creat Clear Calc Estimated GFR Random Glucose Calcium Troponin I High Sens 17.2 H 19.5 H B-Natriuretic Peptide 188 H Influenza Type A (PCR) Influenza Type B (PCR) RSV RNA Qual (PCR) SARS-CoV-2 RNA (RT-PCR) Imaging Radiologist's Impressions: Impressions Chest X-Ray 03/26/23 11:14 IMPRESSION: Diffuse patchy opacity throughout both lungs suggestive of infiltrates. Differential diagnosis includes pulmonary edema. Assessment and Plan (1) Bilateral pneumonia: Status: Acute (2) COPD exacerbation: Status: Acute Plan 67-year-old female with history of atrial fibrillation/flutter anticoagulated with Coumadin, heart failure with preserved ejection fraction, aortic stenosis s/p TAVR procedure in 08/2022, s/p St. Alex valve, history of amiodarone toxicity, interstitial lung disease and COPD with chronic hypoxemic respiratory failure admitted for bilateral pneumonia with acute copd exacerbation. #Acute bilateral pneumonia -suspcious for viral etiology. Negative for COVID-19, influenza, and RSV. Full viral respiratory panel pending -Will cover for bacterial pneumonia with IV ceftriaxone and IV doxycycline (initiated 03/26) -symptomatic management -No leukocytosis, no sepsis -Follow CBC, cultures #Acute COPD exacerbation -Duonebs q4h while awake -albuterol prn -IV doxycycline -IV methylprednisolone 40mg TID -continue home inhalers #Chronic hypoxemic respiratory failure- no acute hypoxia -r/t COPD and ILD -continue 4L supplemental O2 #Paroxysmal atrial fibrillation- rate controlled -Continue coumadin, follow INR -Continue rate control drugs #HTN -continue home lasix, diltizaem #Mechanical Mitral valve -continue coumadin -follow INR (goal 2.5-3.5) #Chronic HFpEF -no acute exacerbation -continue lasix, jardiance #chronic microcytic anemia -H/H stable -continue ferrous sulfate ? #hypothyroidism -continue home meds #mood disorder -continue home meds DVT prophylaxis-on Coumadin Full code Patient will be observed overnight for bilateral pneumonia with COPD exacerbation Time Spent With Patient Time: Total time managing care of this patient today ____ minutes. Quality Stroke Does the patient have a stroke diagnosis?: No VTE Prior VTE?: No VTE Risk Level:: Medical - moderate - high VTE Device Contraindication: Treatment Not Indicated VTE Drug Contraindication: N/A - Med Ordered
--- NOTE | 2023-03-26 14:25 | PHA.MEDREC ---
Pharmacy Consult ? Medication Reconciliation Pharmacy has completed the medication reconciliation. Pt was able to confirm medications when they were listed. She states she took her morning medications but takes a few of them after she picks up her granddaughter at school (around 1600) and didn't take any of those today.
[2023-03-26] MEDS: Albuterol/Iprat 2.5/0.5MG 3 ML AMPUL.NEB INHALE ×2 (15:39→21:23)
[2023-03-26] MEDS: 0.9 % Sodium Chloride Flush 3 ML SYRINGE IVFLUSH ×2 (16:03→21:07)
[2023-03-26] MEDS: Benzonatate 100 MG CAPSULE PO ×2 (16:03→21:06)
[2023-03-26] MEDS: Ferrous Sulfate 324 MG TABLET.DR 972 MG PO (16:04)
[2023-03-26] MEDS: Furosemide 40 MG TABLET PO (16:04)
[2023-03-26] MEDS: Doxycycline Hyclate 100 MG in 0.9 % Sodium Chloride 250 ML 166.67 MG IV (16:18)
[2023-03-26 17:49] LABS: Prothrombin Time 109.3 SEC (10.0-13.1)
[2023-03-26 17:54] LABS: INTERNATIONAL NORM RATIO 8.7 (0.9-1.1)
[2023-03-26] MEDS: Flecainide Acetate 50 MG TABLET 100 MG PO (21:06)
[2023-03-27] VITALS (7 sets, daily range): BP systolic 128–147; BP diastolic 63–68; PULSE 63–78; RESP 17–19; TEMP 36.3–36.8; O2SAT 93–98
[2023-03-27] MEDS: methylPREDNISolone Sod Succ 40 MG/ML VIAL IVPUSH ×3 (04:43→22:00)
[2023-03-27] MEDS: Levothyroxine Sodium 25 MCG TABLET PO (04:43)
[2023-03-27] MEDS: Doxycycline Hyclate 100 MG in 0.9 % Sodium Chloride 250 ML 166.67 MG IV ×2 (04:50→15:49)
[2023-03-27] MEDS: Flecainide Acetate 50 MG TABLET 100 MG PO ×2 (05:19→18:04)
[2023-03-27 05:59] LABS: MANUAL DIFF FLAG NO
[2023-03-27 06:07] LABS: Basophils Percent Auto 0.1 % (0-2); Hematocrit 32.8 % (37.0-47.0); Hemoglobin 10.3 g/dl (12.0-16.0); Imm Gran Abs Auto 0.05 X10*3/uL (0.00-0.03); Imm Gran Pct Auto 0.4 % (0.0-0.4); Lymphocytes Absolute Auto 0.6 X10*3/uL (1.2-4.9); Lymphocytes Percent Auto 5.2 % (20-40); Mean Corpuscular HGB Conc 31.4 g/dl (31.0-35.0); Mean Corpuscular Hemoglobin 26.7 pg (27.0-33.0); Mean Platelet Volume 12.2 fL (9.4-12.3); Monocytes Absolute Auto 0.7 X10*3/uL (0.1-1.2); Monocytes Percent Auto 5.6 % (2-11); Neutrophils Absolute Auto 10.3 x10*3/uL (2.0-8.3); Neutrophils Percent Auto 88.7 % (45-73); Platelet Count 231 X10*3/uL (160-400); Red Blood Count 3.86 X10*6/uL (4.20-5.50); Red Cell Distribution Width 14.4 % (11.0-16.0); White Blood Count 11.6 X10*3/uL (4.8-10.8)
[2023-03-27 06:34] LABS: Anion Gap 15 (12-20); Blood Urea Nitrogen 19 mg/dL (9-16); Calcium 9.1 mg/dL (8.4-10.2); Carbon Dioxide 27 mmol/L (22-29); Chloride 105 mmol/L (96-108); Creatinine Clr Calc Pharmacy 73.6; Estimated Glomerular Filt Rate > 60; Glucose Random 111 mg/dL (60-115); Potassium 3.3 mmol/L (3.3-5.1); Sodium 144 mmol/L (135-145)
[2023-03-27 06:52] LABS: Prothrombin Time 111.6 SEC (10.0-13.1)
--- NOTE | 2023-03-27 07:00 | CA_ITS ---
Transthoracic Echocardiogram Patient (Last, First, Middle): Nubia Bond, Gender: Female Date of : 1955 Age: 67 Procedure Date: 03/27/2023 Procedure Type: Transthoracic Echocardiogram Location: S3E Height: 157.48 cm Weight: 70.31 kg BSA: 1.72 m2 Heart Rate: bpm BP: 137 / 68 mmHg Funeral Pre Need Consultant: Referring MD: Fallon Zaragoza MD Volleyball Assembler: Luis Antonio Nelson MD Symptoms: sob/elevated troponin/bnp Study Quality: Fair ECG Rhythm: Sinus with extra beats Conclusions: - 1. Normal LV systolic function with mild LVH 2. Moderately dilated left atrium 3. Bioprosthetic aortic valve in place with mean gradient of 17 mmHg, most suggestive patient prosthesis mismatch 4. Normally function mechanical mitral valve prosthesis 5. Moderate to severe elevation right ventricular systolic pressure with mildly elevated right atrial pressures 6. No pericardial effusion Findings Left Ventricle Normal left ventricular size and systolic function. There is mildly increased left ventricular wall thickness. The visually estimated ejection fraction is between 60-65%. Diastolic function is indeterminate on the basis of available data. Right Ventricle Mildly increased right ventricular cavity size. There is normal right ventricular systolic function. Atria The left atrium is moderately dilated. There is no evidence of interatrial shunt. The right atrium is mildly dilated. Aortic Valve A bioprosthetic aortic valve is present. The mean gradient is 17 mmHg. There is no aortic valve regurgitation. mean gradient across bioprosthetic valve is elevated at 17 mmHg, most consistent with patient prosthesis mismatch. the valve is well seated without abnormal rocking motion Mitral Valve A mechanical prosthetic mitral valve is present. The prosthetic mitral valve appears to be functioning normally. There is no mitral valve regurgitation. Pulmonic Valve The pulmonic valve is likely normal. There is mild pulmonic valve regurgitation. Tricuspid Valve Normal tricuspid valve structure. There is mild tricuspid valve regurgitation. Mildly elevated right atrial pressure. Moderate to severe pulmonary hypertension is present. tricuspid repair with annuloplasty ring with possible mild stenosis Great Vessels The aorta was not well visualized. The pulmonary artery was not well visualized. Venous The inferior vena cava is mildly dilated and collapses less than 50% with inspiration. Pericardium/Pleural There is no evidence of pericardial effusion. Prior Study Comparison Changes noted compared to prior study dated: 10/11/2022. RV systolic pressure has increased Measurements 2D Linear Measurements IVSd: 1.23 0.6-0.9/0.6-1.0 cm LVIDd: 4.87 3.9-5.3/4.2-5.9 cm LVIDd Index: 2.83 2.4-3.2/2.2-3.1 cm/m2 LVIDs: 3.30 2.0-3.6 cm LVPWd: 1.27 0.7-1.1 cm Ao Root: 3.30 2.1-3.5 cm LA Diam: 4.70 2.7-3.8/3.0-4.0 cm LAIDs Index: 2.73 1.5-2.3 cm/m2 LV Mass: 296.21 67-162/88-224 g LV Mass Index: 172.21 43-95/49-115 g/m2 LVOT Diam: 2.00 3.0+(-)1.3 cm Mitral Valve MV VTI: 0.41 MV Pk Vern: 2.07 MV Mn Vern: 0.99 MV Pk Grad: 17.00 MV Mn Grad: 6.00 MV Pk E: 1.33 MV Decel Time: 170.00 E'Lateral: 7.18 E'Medial: 4.46 E/E' Med: 29.80 E/E' Lat: 18.50 PHT: 50.00 MVA PHT: 4.40 MVA Continuity: 2.04 Decel Lander: 7.86 Aortic Valve AoV Pk Vern: 2.94 AoV Mn Vern: 1.81 AoV VTI: 0.68 AoV Pk Grad: 35.00 Aov Mn Grad: 17.00 RADHA Cont.VTI: 1.23 LVOT LVOT Pk Vern: 1.22 LVOT Mn Vern: 0.80 LVOT VTI: 0.27 LVOT Pk Grad: 6.00 LVOT Mn Grad: 3.00 LVOT Diam: 2.00 LVOT Area: 3.14 Diastolic Function MV Pk E: 1.33 E'Medial: 4.46 E/E' Med: 29.80 E' Laterial: 7.18 E/E' Lat: 18.50 Right Ventricle TAPSE (mm): 22.00 TVS' Vern: 8.00 Tricuspid Valve TV Pk Vern: 1.61 TV Mn Vern: 0.79 TV Pk Grad: 10.00 TV Mn Grad: 3.00 TR Pk Vern: 3.82 TR Pk Grad: 58.00 RA Press: 8.00 RVSP: 66.00 Great Vessels Aorta Ao Root-2D: 3.30 2.0-3.7 cm Pulmonary Valve PV Pk Vern: 1.39 Peak PV Grad: 8.00 Updated in Other Vendor System with Status of Final Luis Antonio Nelson MD electronically signed on 03/28/2023 1:13:13 PM with status of Final
[2023-03-27] MEDS: Albuterol/Iprat 2.5/0.5MG 3 ML AMPUL.NEB INHALE ×4 (07:24→20:14)
[2023-03-27 07:39] LABS: INTERNATIONAL NORM RATIO 8.9 (0.9-1.1)
[2023-03-27] MEDS: 0.9 % Sodium Chloride Flush 3 ML SYRINGE IVFLUSH ×3 (08:33→20:58)
[2023-03-27] MEDS: Potassium Chloride Packet 20 MEQ PACKET PO (08:33)
[2023-03-27] MEDS: guaiFENesin 200 MG/10 ML 10 ML LIQUID PO (08:33)
[2023-03-27] MEDS: Sertraline HCL 100 MG TABLET 200 MG PO (08:33)
[2023-03-27] MEDS: Benzonatate 100 MG CAPSULE PO ×3 (08:34→20:57)
[2023-03-27] MEDS: Atorvastatin Calcium 20 MG TABLET PO (08:34)
[2023-03-27] MEDS: dilTIAZem HCL CD 120 MG CAP.ER.DEG PO (08:34)
[2023-03-27] MEDS: Folic Acid 1 MG TABLET PO (08:34)
[2023-03-27 10:00] LABS: Rhino/Enterovirus PCR Detected (Not Detect.)
[2023-03-27 10:01] LABS: Adenovirus PCR Not Detected (Not Detect.); Bordetella parapertussis PCR Not Detected (Not Detect.); Bordetella pertussis PCR Not Detected (Not Detect.); Chlamydia pneumoniae PCR Not Detected (Not Detect.); Coronavirus 229E PCR Not Detected (Not Detect.); Coronavirus HKU1 PCR Not Detected (Not Detect.); Coronavirus NL63 PCR Not Detected (Not Detect.); Coronavirus OC43 PCR Not Detected (Not Detect.); Human metapneumovirus PCR Not Detected (Not Detect.); Influenza A PCR Not Detected (Not Detect.); Influenza B PCR Not Detected (Not Detect.); Mycoplasma pneumoniae PCR Not Detected (Not Detect.); Parainfluenza 1 PCR Not Detected (Not Detect.); Parainfluenza 2 PCR Not Detected (Not Detect.); Parainfluenza 3 PCR Not Detected (Not Detect.); Parainfluenza 4 PCR Not Detected (Not Detect.); RSV PCR Not Detected (Not Detect.); SARS-CoV-2 PCR Not Detected (Not Detect.)
--- NOTE | 2023-03-27 13:01 | MHC.CM.PN ---
pt lives with mari has [facility] for housework her mari will transport her home she is covid vax x3
[2023-03-27] MEDS: cefTRIAXone sodium 1 GM in 0.9 % Sodium Chloride 50 ML IV (13:25)
[2023-03-27] MEDS: Ferrous Sulfate 324 MG TABLET.DR 972 MG PO (15:52)
[2023-03-27] MEDS: Furosemide 40 MG TABLET PO (15:54)
[2023-03-27] MEDS: Empagliflozin 10 MG TABLET PO (15:55)
--- NOTE | 2023-03-27 16:06 | HO.PM.IMPN ---
Subjective Subjective Date of Service: 03/27/23 Interval History: bilateral pneumonia,copd excerebation Review of Systems Has shortness of breath and cough Denies any chest pain, no fever or chills. Physical Exam Vital Signs: Vital Signs: Last Vital Signs Temp 97.3 F 03/27/23 07:31 Pulse 70 03/27/23 14:55 Resp 18 03/27/23 14:55 BP 137/68 03/27/23 07:31 Pulse Ox 98 03/27/23 07:31 O2 Del Method Nasal Cannula 03/27/23 07:31 O2 Flow Rate 4.0 03/27/23 07:31 Oxygen Flow Rate 4 03/26/23 10:12 BMI result Body Mass Index 28.3 Appearance: Alert.? Oriented X3.? sob cvs: rrr, [id number] , no murmur res:air entry diminshed ,has b/l wheezin abd: no rebound or guarding ,nt, bs present. ext pulses present , no cyanosis . neuro: axo3 , nonfocal. Objective Data Active Medications Acetaminophen (Acetaminophen 325 Mg Tablet) 650 mg PO Q6H PRN PRN Reason: Pain, Mild (Pain Scale 1-3) Albuterol Sulfate (Albuterol Sulfate (0.083%) 2.5 Mg/3 Ml Vial.Neb) 2.5 mg INHALE Q2H PRN PRN Reason: Shortness of Breath/Wheezing Albuterol/Ipratropium (Albuterol/Iprat 2.5/0.5mg 3 Ml Ampul.Neb) 3 ml INHALE RQ4H WHILE AWAKE [facility] Last Admin: 03/27/23 14:54 Dose: 3 ml Documented By: ADRIÁN Atorvastatin Calcium (Atorvastatin Calcium 20 Mg Tablet) 20 mg PO DAILY [facility] Last Admin: 03/27/23 08:34 Dose: 20 mg Documented By: ARACELI Benzonatate (Benzonatate 100 Mg Capsule) 100 mg PO TID [facility] Last Admin: 03/27/23 15:54 Dose: 100 mg Documented By: ARACELI Diltiazem HCl (Diltiazem Hcl Cd 120 Mg Cap.Er.Deg) 120 mg PO DAILY [facility]; Protocol Last Admin: 03/27/23 08:34 Dose: 120 mg Documented By: ARACELI Docusate Sodium (Docusate Sodium 100 Mg Capsule) 100 mg PO DAILY PRN PRN Reason: Constipation Empagliflozin (Empagliflozin 10 Mg Tablet) 10 mg PO DAILY@1600 [facility] Last Admin: 03/27/23 15:55 Dose: 10 mg Documented By: ARACELI Ferrous Sulfate (Ferrous Sulfate 324 Mg Tablet.) 972 mg PO DAILY@1600 [facility] Last Admin: 03/27/23 15:52 Dose: 972 mg Documented By: ARACELI Flecainide Acetate (Flecainide Acetate 50 Mg Tablet) 100 mg PO Q12H [facility] Last Admin: 03/27/23 05:19 Dose: 100 mg Documented By: DIANA Folic Acid (Folic Acid 1 Mg Tablet) 1 mg PO DAILY [facility] Last Admin: 03/27/23 08:34 Dose: 1 mg Documented By: ARACELI Furosemide (Furosemide 40 Mg Tablet) 40 mg PO DAILY@1600 [facility]; Protocol Last Admin: 03/27/23 15:54 Dose: 40 mg Documented By: ARACELI Guaifenesin (Guaifenesin 200 Mg/10 Ml 10 Ml Liquid) 10 ml PO Q4H PRN PRN Reason: Cough Last Admin: 03/27/23 08:33 Dose: 10 ml Documented By: ARACELI Ceftriaxone Sodium 1 gm/ (Sodium Chloride) 50 mls @ 100 mls/hr IV Q24H [facility] Last Infusion: 03/27/23 14:37 Dose: 0 mls/hr Documented By: ARACELI Doxycycline Hyclate 100 mg/ (Sodium Chloride) 250 mls @ 166.67 mls/hr IV Q12H [facility] Last Admin: 03/27/23 15:49 Dose: 166.67 mls/hr Documented By: ARACELI Levothyroxine Sodium (Levothyroxine Sodium 25 Mcg Tablet) 25 mcg PO DAILY@0600 [facility] Last Admin: 03/27/23 04:43 Dose: 25 mcg Documented By: DIANA Methylprednisolone Sodium Succinate (Methylprednisolone Sod Succ 40 Mg/Ml Vial) 40 mg IVPUSH Q8H [facility] Last Admin: 03/27/23 13:26 Dose: 40 mg Documented By: ARACELI Non-Formulary Medication (Dmnamylvkig-Lyokoxmfx-Mtkyarhy [Trelegy Ellipta]) 1 each INHALE DAILY [facility] Ondansetron HCl (Ondansetron Hcl 4 Mg/2 Ml Vial) 4 mg IVPUSH Q8H PRN PRN Reason: Nausea and Vomiting Pharmacy Consult (Consult Rx Perform Med Rec) 1 each MISCELLANE ONCE PRN PRN Reason: Consult order Sertraline HCl (Sertraline Hcl 100 Mg Tablet) 200 mg PO DAILY [facility] Last Admin: 03/27/23 08:33 Dose: 200 mg Documented By: ARACELI Sodium Chloride (0.9 % Sodium Chloride Flush 3 Ml Syringe) 3 ml IVFLUSH QSHIFT [facility] Last Admin: 03/27/23 15:55 Dose: 3 ml Documented By: ARACELI Zolpidem Tartrate (Zolpidem Tartrate 5 Mg Tablet) 5 mg PO BEDTIME PRN PRN Reason: Insomnia Labs 03/27/23 05:14 03/27/23 05:14 Labs: Laboratory Results - last 24 hr 03/26/23 03/26/23 03/27/23 16:19 17:16 05:14 MCV 85.0 MCH 26.7 L MCHC 31.4 RDW 14.4 Plt Count 231 MPV 12.2 Immature Gran % (Auto) 0.4 Neut % (Auto) 88.7 H Lymph % (Auto) 5.2 L [place] % (Auto) 5.6 Eos % (Auto) 0.0 Baso % (Auto) 0.1 Lymph # (Auto) 0.6 L [place] # (Auto) 0.7 Eos # (Auto) 0.0 Baso # (Auto) 0.0 Abs Immat Gran (auto) 0.05 H Absolute Neuts (auto) 10.3 H Absolute Nucleated RBC 0.000 Nucleated RBC % (auto) 0.0 PT 109.3 H INR 8.7 H* Anion Gap Estim Creat Clear Calc Estimated GFR Random Glucose Calcium Respiratory Panel [place] See Note Adenovirus (Rapid PCR) Not Detected B.pert (TEM-PCR) Not Detected B.parapertussis DNA PCR Not Detected C. pneumoniae DNA (PCR) Not Detected Coronavirus OC43 (PCR) Not Detected Coronavirus HKU1 (PCR) Not Detected Coronavirus 229E (PCR) Not Detected Coronavirus NL63 (PCR) Not Detected Human Metapneumovir PCR Not Detected Influenza A (RT-PCR) Not Detected Influenza B (RT-PCR) Not Detected M. pneumoniae (PCR) Not Detected Parainfluenza 1 (PCR) Not Detected Parainfluenza 2 (PCR) Not Detected Parainfluenza 3 (PCR) Not Detected Parainfluenza 4 (PCR) Not Detected RSV (PCR) Not Detected Entero/Rhino (PCR) Detected A SARS-CoV-2 RNA (RT-PCR) Not Detected 03/27/23 03/27/23 05:14 05:14 MCV MCH MCHC RDW Plt Count MPV Immature Gran % (Auto) Neut % (Auto) Lymph % (Auto) [place] % (Auto) Eos % (Auto) Baso % (Auto) Lymph # (Auto) [place] # (Auto) Eos # (Auto) Baso # (Auto) Abs Immat Gran (auto) Absolute Neuts (auto) Absolute Nucleated RBC Nucleated RBC % (auto) PT 111.6 H INR 8.9 H* Anion Gap 15 Estim Creat Clear Calc 73.6 Estimated GFR > 60 Random Glucose 111 Calcium 9.1 Respiratory Panel [place] Adenovirus (Rapid PCR) B.pert (TEM-PCR) B.parapertussis DNA PCR C. pneumoniae DNA (PCR) Coronavirus OC43 (PCR) Coronavirus HKU1 (PCR) Coronavirus 229E (PCR) Coronavirus NL63 (PCR) Human Metapneumovir PCR Influenza A (RT-PCR) Influenza B (RT-PCR) M. pneumoniae (PCR) Parainfluenza 1 (PCR) Parainfluenza 2 (PCR) Parainfluenza 3 (PCR) Parainfluenza 4 (PCR) RSV (PCR) Entero/Rhino (PCR) SARS-CoV-2 RNA (RT-PCR) Assessment and Plan (1) COPD exacerbation: Status: Acute (2) Bilateral pneumonia: Status: Acute Plan 67-year-old female with history of atrial fibrillation/flutter anticoagulated with Coumadin, heart failure with preserved ejection fraction, aortic stenosis s/p TAVR procedure in 08/2022, s/p St. Alex valve, history of amiodarone toxicity, interstitial lung disease and COPD with chronic hypoxemic respiratory failure admitted for bilateral pneumonia with acute copd exacerbation. Acute bilateral pneumonia-suspcious for viral etiology.? Negative for COVID-19, influenza, and RSV.? Full viral respiratory panel pending No leukocytosis, no sepsis continue IV ceftriaxone and IV doxycycline (initiated 03/26),symptomatic management Follow CBC, cultures Acute COPD exacerbation Duonebs q4h while awake,IV doxycycline,IV methylprednisolone 40mg TID Chronic hypoxemic respiratory failure- no acute hypoxia r/t COPD and ILD,continue supplemental O2 Paroxysmal atrial fibrillation- rate controlled -Continue coumadin, follow INR -Continue rate control drugs HTN-continue home lasix, diltizaem Mechanical Mitral valve Supratherapeutic INR similar to that, no gross bleeding, H&H stable around 10 Hold Coumadin, monitor INR. Chronic HFpEF- Elevated troponin, elevated BNP, short of breath-not improving added echo continue lasix, jardiance chronic microcytic anemia-H/H stable continue ferrous sulfate ? hypothyroidism continue home meds mood disorder-continue home meds. DVT prophylaxis-on Coumadin Full code continue need for hospital stay: bilateral pneumonia with COPD exacerbation Time Spent With Patient Time: Total time managing care of this patient today ____ minutes. Quality Stroke Does the patient have a stroke diagnosis?: No VTE Prior VTE?: No VTE Risk Level:: Medical - moderate - high VTE Device Contraindication: Treatment Not Indicated VTE Drug Contraindication: N/A - Med Ordered
--- NOTE | 2023-03-27 16:15 | MHC.CM.PN ---
pt now inpt imm given
[2023-03-27] MEDS: Zolpidem Tartrate 5 MG TABLET PO (20:57)
[2023-03-27] MEDS: Acetaminophen 325 MG TABLET 650 MG PO (20:57)
[2023-03-28] MEDS: Doxycycline Hyclate 100 MG in 0.9 % Sodium Chloride 250 ML 166.67 MG IV (02:11)
[2023-03-28 04:00] VITALS: TEMP -17.7; TEMP 0
[2023-03-28] MEDS: methylPREDNISolone Sod Succ 40 MG/ML VIAL IVPUSH ×2 (05:34→13:53)
[2023-03-28] MEDS: Levothyroxine Sodium 25 MCG TABLET PO (05:34)
[2023-03-28 07:37] VITALS: BP 140/64; PULSE 62; RESP 19; TEMP 35.9; O2SAT 96
[2023-03-28 07:46] LABS: Hematocrit 33.9 % (37.0-47.0); Hemoglobin 10.4 g/dl (12.0-16.0)
[2023-03-28 07:57] LABS: Prothrombin Time 71.2 SEC (10.0-13.1)
[2023-03-28 08:11] LABS: INTERNATIONAL NORM RATIO 5.8 (0.9-1.1)
[2023-03-28] MEDS: Albuterol/Iprat 2.5/0.5MG 3 ML AMPUL.NEB INHALE ×3 (08:20→15:33)
[2023-03-28 08:21] VITALS: PULSE 57; RESP 18; O2SAT 95
[2023-03-28] MEDS: Sertraline HCL 100 MG TABLET 200 MG PO (08:43)
[2023-03-28] MEDS: Folic Acid 1 MG TABLET PO (08:44)
[2023-03-28] MEDS: Benzonatate 100 MG CAPSULE PO ×2 (08:44→15:57)
[2023-03-28] MEDS: dilTIAZem HCL CD 120 MG CAP.ER.DEG PO (08:44)
[2023-03-28] MEDS: Atorvastatin Calcium 20 MG TABLET PO (08:44)
[2023-03-28] MEDS: 0.9 % Sodium Chloride Flush 3 ML SYRINGE IVFLUSH (08:45)
[2023-03-28] MEDS: Flecainide Acetate 50 MG TABLET 100 MG PO (08:53)
[2023-03-28] MEDS: guaiFENesin 100 MG/5 ML LIQUID 10 ML PO (10:57)
[2023-03-28] MEDS: Loratadine 10 MG TABLET PO (10:58)
[2023-03-28 12:00] VITALS: PULSE 61; RESP 18; O2SAT 95
[2023-03-28] MEDS: predniSONE 20 MG TABLET 40 MG PO (12:28)
[2023-03-28] MEDS: cefTRIAXone sodium 1 GM in 0.9 % Sodium Chloride 50 ML IV (12:29)
--- NOTE | 2023-03-28 12:43 | P.DS_ITS ---
DS: Providers Provider Date of Service: 03/28/23 Date of admission: 03/27/23 16:13 Primary care physician: Daniela Chopra MD DS: Diagnosis Discharge Diagnosis (1) COPD exacerbation: Status: Acute (2) Bilateral pneumonia: Status: Acute DS: Summary Hospital Course Hospital Course: 67-year-old female with history of atrial fibrillation/flutter anticoagulated with Coumadin, heart failure with preserved ejection fraction, aortic stenosis s/p TAVR procedure in 08/2022, s/p [facility] Alex valve, history of amiodarone toxicity, interstitial lung disease and COPD with chronic hypoxemic respiratory failure presented to the ED earlier today for evaluation of sob and productive cough ongoing for 4 days. She reports worsening sob, both at rest and with exertion, despite compliance with supplemental O2. Has cough with brown sputum production, different from baseline. There is also nasal congestion and intermittent lightheadedness. No fevers, chills, sore throat, abd pain, n/v/d, orthopnea, PND, palpitations, or chest pain. No known sign contacts. On arrival, no acute hypoxia, patient afebrile, vitals otherwise stable. No leukocytosis. Renal function and electrolytes are baseline. Initial trop 17.2, repeat 19.5. BNP 188. Negative for influenza, RSV, and COVID-19. INR 2.4. CXR showing diffuse patchy opacity thoughout both lungs suggestive of infiltrates, differential could include pulmonary edema. In the ED, she received 20mg IV lasix, albuterol neb, and 1g ceftriaxone. Hospital course:Patient admitted for shortness of breath found to have Acute COPD exacerbation in setting of pneumonia and viral uri(entero/rhinovirus): Started on nebs, steroids, antibiotics, blood cultures sent, added come medication . Patient shortness of breath seems to be significantly improved, patient will be going home with p.o. steroids and antibiotics. Blood culture seems to be negative@24hours. she also had mild trop elevated possible demand due to above-echo seems similar to previous echo ,right ventricular pressure increased-follow up outpatient with cardiology. In addition patient was found to have supratherapeutic INR has history of mech. mitral valve (inr improving from 8.9 to 5.8). Please check INR in 2 days and if below inr 3.5,start warfarin. moniter inr outpatient. plan: hold warfarin for 2 days ,Please check INR in 2 days and if below inr 3.5,start warfarin 6 mg daily(adjusted due to high inr) . complete 1 week of ceftin and doxycycline , also complete 4 days of steriods .Repeat chest imaging in 3-4 weeks to see resolution of pneumonia. Follow-up outpatient with PCP and Cardiology. Above management discussed with the patient in detail length she understand and in agreement with the above plan, time spent 50 minutes and 50% time spent on counseling. Time Spent with Patient Time attestation: Total time managing care of this patient today ____ minutes. Discharge coordination time: Greater than 30 minutes Quality: Safe Use of Opioids Does Pt have an Active Cancer Diagnosis on the Problem List?: No Quality: Stroke Does the patient have a stroke diagnosis?: No Physical Exam Vital Signs: Vital Signs: Last Vital Signs Temp 96.7 F L 03/28/23 07:37 Pulse 61 03/28/23 12:00 Resp 18 03/28/23 12:00 BP 140/64 H 03/28/23 07:37 Pulse Ox 96 03/28/23 07:37 O2 Del Method Nasal Cannula 03/28/23 07:37 O2 Flow Rate 4.0 03/28/23 07:37 Oxygen Flow Rate 4 03/26/23 10:12 BMI result Body Mass Index 28.3 Appearance: Alert.? Oriented X3.? ? cvs: rrr, [id number] , no murmur res: air entry fair , no rales or wheezing abd: no rebound or guarding ,nt, bs present. ext pulses present , no cyanosis . neuro: axo3 , nonfocal. DS: Data Data Completed and Pending Completed studies during hospitalization [Text1]: Procedures Zoroastrian of Cardiac Rhythm, Single (12/11/22) Transfusion of Nonautologous Red Blood Cells into Peripheral Vein, Percutaneous Approach (09/27/22) Labs on day of discharge: Laboratory Results - last 24 hr 03/28/23 03/28/23 07:40 07:40 Hgb 10.4 L Hct 33.9 L PT 71.2 H INR 5.8 H* D Preliminary micro results at discharge 03/26/23 15:14 Blood Culture - Preliminary Blood - Venous No growth after 24 hours. 03/26/23 15:14 Blood Culture - Preliminary Blood - Venous No growth after 24 hours. Imaging Chest x-ray: Radiologist's impression: ITS Impressions Chest X-Ray 03/26/23 11:14 IMPRESSION: Diffuse patchy opacity throughout both lungs suggestive of infiltrates. Differential diagnosis includes pulmonary edema. Additional Comments Additional comments: echo: Conclusions: - 1. Normal LV systolic function with mild LVH ? 2. Moderately dilated left atrium? 3. Bioprosthetic aortic valve in place with mean gradient of 17? mmHg, most suggestive patient prosthesis mismatch? 4. Normally function mechanical mitral valve prosthesis? 5. Moderate to severe elevation right? ventricular systolic? ? ? pressure with mildly elevated right atrial pressures ? 6. No pericardial effusion ? Findings Left Ventricle Normal left ventricular size and systolic function. There is mildly increased left ventricular wall thickness.? The visually estimated ejection fraction is between 60-65%.? Diastolic function is indeterminate on the basis of available data. Right Ventricle Mildly increased right ventricular cavity size.? There is normal right ventricular systolic function. Atria The left atrium is moderately dilated.? There is no evidence of interatrial shunt.? The right atrium is mildly dilated. Aortic Valve A bioprosthetic aortic valve is present.? The mean gradient is 17 mmHg. There is no aortic valve regurgitation.? mean gradient across bioprosthetic valve is elevated at 17 mmHg,? most consistent with patient prosthesis mismatch.? the valve is well seated without abnormal rocking motion Mitral Valve A mechanical prosthetic mitral valve is present.? The prosthetic mitral valve appears to be functioning normally.? There is no mitral valve regurgitation. Pulmonic Valve The pulmonic valve is likely normal.? There is mild pulmonic valve regurgitation. Tricuspid Valve Normal tricuspid valve structure.? There is mild tricuspid valve regurgitation.? Mildly elevated right atrial pressure.? Moderate to severe pulmonary hypertension is present. tricuspid repair with annuloplasty ring with possible mild stenosis Great Vessels The aorta was not well visualized.? The pulmonary artery was not well visualized. Venous The inferior vena cava is mildly dilated and collapses less than 50% with inspiration. Pericardium/Pleural There is no evidence of pericardial effusion. Prior Study Comparison Changes noted compared to prior study dated:? 10/11/2022.? RV systolic pressure has increased ?? Discharge Plan Discharge Anticipated Discharge Date/Time: 03/28/23 11:45 Patient Disposition: Home, Self-Care Discharge Diagnosis: COPD exacerbation, pneumonia,viral uri, supratherapeutic INR Referrals: Daniela Chopra MD [Primary Care Provider] - 1 Week Discharge Medications: New guaifenesin 100 mg/5 mL Liquid 200 mg PO Q4H Qty: 473 0RF loratadine 10 mg Tablet 10 mg PO DAILY Qty: 10 0RF cefuroxime axetil 500 mg tablet 500 mg PO BID Qty: 14 0RF doxycycline hyclate 100 mg capsule 100 mg PO BID Qty: 14 0RF prednisone 20 mg tablet 40 mg PO DAILY Qty: 8 0RF warfarin 6 mg tablet 6 mg PO DAILY Qty: 30 0RF Rx Instructions: start in 2 days id inr below 3.5 Continued diltiazem HCl 120 mg capsule,extended release 24hr 120 mg PO DAILY Qty: 90 3RF flecainide 100 mg tablet 100 mg PO Q12H Qty: 60 2RF Rx Instructions: Correct dose is 100 mg twice daily sertraline 100 mg Tablet 200 mg PO DAILY atorvastatin 20 mg Tablet 20 mg PO DAILY folic acid 1 mg Tablet 1 mg PO DAILY Qty: 90 3RF Trelegy Ellipta 200-62.5-25 mcg blister with device 1 ea inhalation DAILY Jardiance 10 mg tablet 10 mg PO BEDTIME furosemide 40 mg tablet 40 mg PO DAILY@1600 Protocol: Hold for SBP< HOLD for SBP < : 90 levothyroxine 25 mcg tablet 25 mcg PO DAILY@0600 ferrous sulfate 325 mg (65 mg iron) tablet 975 mg PO DAILY@1600 zolpidem 5 mg tablet 5 mg PO BEDTIME PRN (Reason: Insomnia) Discontinued warfarin 2.5 mg tablet 7.5 mg PO DAILY@1800 Protocol: Dose Management Condition: Saturday (Week One) Dose/Route: 7.5 mg Instruction: 3 x 2.5 mg tablets Condition: Saturday Dose/Route: 10 mg Instruction: 4 x 2.5 mg tablets Condition: Saturday Dose/Route: 7.5 mg Instruction: 3 x 2.5 mg tablets Condition: Saturday Dose/Route: 7.5 mg Instruction: 3 x 2.5 mg tablets Condition: Dose/Route: 7.5 mg Instruction: 3 x 2.5 mg tablets Condition: Saturday Dose/Route: 7.5 mg Instruction: 3 x 2.5 mg tablets Condition: Saturday Dose/Route: 7.5 mg Instruction: 3 x 2.5 mg tablets Condition: Saturday (Week Two) Dose/Route: 7.5 mg Instruction: 3 x 2.5 mg tablets Condition: Saturday Dose/Route: 7.5 mg Instruction: 3 x 2.5 mg tablets Condition: Saturday Dose/Route: 7.5 mg Instruction: 3 x 2.5 mg tablets Condition: Saturday Dose/Route: 7.5 mg Instruction: 3 x 2.5 mg tablets Condition: Dose/Route: 7.5 mg Instruction: 3 x 2.5 mg tablets Condition: Saturday Dose/Route: 7.5 mg Instruction: 3 x 2.5 mg tablets Condition: Saturday Dose/Route: 7.5 mg Instruction: 3 x 2.5 mg tablets Protocol Text: Adjustment Start Date: Saturday03/18/23 INR Value: 2.4 INR Date: 03/18/23 Recheck Date: 04/01/23 Discharge Orders: Discharge Order (Routine); Ordered 03/28/23 Ordered By: Fallon Zaragoza Diet: Advance to usual diet Activity on Discharge: As tolerated Stand Alone Forms: Patient Portal Discharge page Other Ambulatory Orders: Prothrombin Time INR (Routine) Timeframe: 2 Days Facility: [facility] - Location: Laboratory Ordered By: Fallon Zaragoza Care Plan Goals: Patient admitted for shortness of breath found to have Acute COPD exacerbation in setting of pneumonia and viral uri(entero/rhinovirus): Started on nebs, steroids, antibiotics, blood cultures sent, added come medication . Patient shortness of breath seems to be significantly improved, patient will be going home with p.o. steroids and antibiotics. Blood culture seems to be negative@24hours. she also had mild trop elevated possible demand due to above-echo seems similar to previous echo ,right ventricular pressure increased-follow up outpatient with cardiology. In addition patient was found to have supratherapeutic INR has history of mech. mitral valve (inr improving from 8.9 to 5.8). Please check INR in 2 days and if below inr 3.5,start warfarin. moniter inr outpatient. Health Concerns: as above. Plan of Treatment: as above. Assessment: as above. Patient Instructions: Pneumonia (DC)
--- NOTE | 2023-03-28 12:55 | MHC.CM.PN ---
PT WILL DC HOME TODAY WITH NO SERVICES FAMILY TO TRANSPORT
[2023-03-28 15:33] VITALS: PULSE 64; RESP 18; O2SAT 94
[2023-03-28] MEDS: Ferrous Sulfate 324 MG TABLET.DR 972 MG PO (15:57)
== END 2023-03-28 16:20 | disposition home or self-care (01) | DRG 190 ==
LOC: HO.ED 13:22 → HO.EDOVER 14:22 → HO.S3 18:57
PROVIDERS: Admitting Provider Physician Assistant; Emergency Provider Emergency Medicine; PCP Internal Medicine; Visit Provider Internal Medicine
DX: J44.0 Chronic obstructive pulmonary disease with (acute) lower respiratory infection (principal); J12.89 Other viral pneumonia; J96.11 Chronic respiratory failure with hypoxia; I50.32 Chronic diastolic (congestive) heart failure; J44.1 Chronic obstructive pulmonary disease with (acute) exacerbation; Z99.81 Dependence on supplemental oxygen; I48.0 Paroxysmal atrial fibrillation; R79.1 Abnormal coagulation profile; B97.19 Other enterovirus as the cause of diseases classified elsewhere; E03.9 Hypothyroidism, unspecified; D50.9 Iron deficiency anemia, unspecified; Z20.822 Contact with and (suspected) exposure to COVID-19; Z95.0 Presence of cardiac pacemaker; Z98.84 Bariatric surgery status; Z95.2 Presence of prosthetic heart valve; Z88.8 Allergy status to other drugs, medicaments and biological substances; Z79.01 Long term (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; Z79.890 Hormone replacement therapy; Z79.899 Other long term (current) drug therapy
CPT/HCPCS: 0241U; 36415; 71045; 80048; 83880; 84484; 85014; 85018; 85025; 85610; 87040; 87633; 93005; 93306; 94640; 99221; 99285; J0696; J1940; J2920

== ENCOUNTER → 2023-03-29 08:25 | Outpatient (BNVA) | payer MEDICARE, MEDICAID, SELFPAY | PROVIDERS: PCP Internal Medicine; Visit Provider Internal Medicine | DX: Z95.2 Presence of prosthetic heart valve (principal); Z79.01 Long term (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; Z51.81 Encounter for therapeutic drug level monitoring | CPT/HCPCS: 85610; 99211 ==

== ENCOUNTER → 2023-04-01 08:20 | Outpatient (BNVA) | payer MEDICARE, MEDICAID, SELFPAY | PROVIDERS: PCP Internal Medicine; Visit Provider Internal Medicine | DX: Z95.2 Presence of prosthetic heart valve (principal); Z79.01 Long term (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; Z51.81 Encounter for therapeutic drug level monitoring | CPT/HCPCS: 85610; 99212 ==

== ENCOUNTER → 2023-04-05 08:22 | Outpatient (BNVA) | payer MEDICARE, MEDICAID, SELFPAY | PROVIDERS: PCP Internal Medicine; Visit Provider Internal Medicine | DX: Z95.2 Presence of prosthetic heart valve (principal); Z79.01 Long term (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; Z51.81 Encounter for therapeutic drug level monitoring | CPT/HCPCS: 85610; 99211 ==

== ENCOUNTER → 2023-04-08 08:37 | Outpatient (BNVA) | payer MEDICARE, MEDICAID, SELFPAY | PROVIDERS: PCP Internal Medicine; Visit Provider Internal Medicine | DX: Z95.2 Presence of prosthetic heart valve (principal); Z79.01 Long term (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; Z51.81 Encounter for therapeutic drug level monitoring | CPT/HCPCS: 85610; 99211 ==

== ENCOUNTER → 2023-04-12 08:20 | Outpatient (BNVA) | payer MEDICARE, MEDICAID, SELFPAY | PROVIDERS: PCP Internal Medicine; Visit Provider Internal Medicine | DX: Z95.2 Presence of prosthetic heart valve (principal); Z79.01 Long term (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; Z51.81 Encounter for therapeutic drug level monitoring | CPT/HCPCS: 85610; 99211 ==

== ENCOUNTER → 2023-04-15 08:52 | Outpatient (BNVA) | payer MEDICARE, MEDICAID, SELFPAY | PROVIDERS: PCP Internal Medicine; Visit Provider Internal Medicine | DX: Z95.2 Presence of prosthetic heart valve (principal); Z79.01 Long term (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; Z51.81 Encounter for therapeutic drug level monitoring | CPT/HCPCS: 85610; 99211 ==

== ENCOUNTER → 2023-04-22 08:26 | Outpatient (BNVA) | payer MEDICARE, MEDICAID, SELFPAY | PROVIDERS: PCP Internal Medicine; Visit Provider Internal Medicine | DX: J44.9 Chronic obstructive pulmonary disease, unspecified (principal); J84.9 Interstitial pulmonary disease, unspecified; G47.33 Obstructive sleep apnea (adult) (pediatric); G47.34 Idiopathic sleep related nonobstructive alveolar hypoventilation; R06.02 Shortness of breath; Z99.81 Dependence on supplemental oxygen; Z95.2 Presence of prosthetic heart valve; Z51.81 Encounter for therapeutic drug level monitoring; Z79.01 Long term (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 | CPT/HCPCS: 85610; 99211; 99212 ==

== ENCOUNTER → 2023-05-03 23:59 | Outpatient (BNV) | payer MEDICARE, MEDICAID, SELFPAY ==
--- NOTE | 2023-05-07 11:30 | A.OFFVIS_ITS ---
Intake Intake Visit Reasons: Remote ILR Check- [employer] Allergies amiodarone Allergy (Intermediate, Verified 05/06/23 08:25) Swelling [facility], LAT[facility] Medical History (HFpEF) heart failure with preserved ejection fraction Abnormal EKG Anemia Aortic stenosis Atrial fibrillation with rapid ventricular response Atrial flutter Atrial flutter with rapid ventricular response Bronchitis due to Staphylococcus aureus Cardiac pacemaker COPD (chronic obstructive pulmonary disease) COPD (chronic obstructive pulmonary disease) Current use of anticoagulant therapy Exercise hypoxemia Heart failure History of cardioversion History of transcatheter aortic valve replacement (TAVR) Hypoxia Interstitial lung disease Interstitial lung disease Interstitial lung disease Nocturnal hypoxemia Obesity Paroxysmal atrial fibrillation Persistent atrial fibrillation Pulmonary nodule Surgical History History of cardiac pacemaker History of sleeve gastrectomy (~2017) Hx of section Hx of mitral valve replacement (~2004) Hx of transesophageal echocardiography (SHELIA) for monitoring (~2015) S/P MVR (mitral valve replacement) Family History Father No problems noted. Mother CVD (cardiovascular disease) Social History Household Members: Family Housing: House Do you presently have visiting nurse or other home services: No Alcohol intake: never Patient Tobacco Use Status: Former Tobacco user Quit Date: 2014 Tobacco use type: Cigarette Years Smoked: 40 Use of substances other than those prescribed or required for medical reasons: No Have you been hit, kicked, punched, or otherwise hurt by someone within the past year? If so, by whom?: No Do you feel safe in your current relationship?: No Current Relationship Advance Directives Date on File: 08/28/22 Do you have thoughts of harming others: None Do you have a plan to hurt others: No Plan Do you have the means to hurt others: No Recently lost weight without trying: No service: No Current occupational status: disabled Office Procedures Cardiac Device Check Cardiac Device Check Details: Remote implantable loop recorder report generated 05/01/2023. No episodes of pauses or atrial fibrillation in the last 30 days 85855-[id number] Cardiac Interrogation, subcut cardiac rhythm monitor Procedure code (CPT) selection complete Assessment & Plan Assessment & Plan Medications: Discontinued furosemide 40 mg See Protocol PO DAILY 90 tabs 2RF empagliflozin 10 mg PO DAILY 30 tabs 3RF I50.30 - Unspecified diastolic (congestive) heart failure Coding Level of Care Code Procedure Only Diagnoses CPT Codes Cardiac Device Check - Cardiac Device 16: [id number]-[id number] Cardiac Interrogation, subcut cardiac rhythm monitor ([id number])
== END ==
PROVIDERS: PCP Internal Medicine; Visit Provider Internal Medicine Cardiovascular Disease
DX: I48.0 Paroxysmal atrial fibrillation (principal)
CPT/HCPCS: 93298

== ENCOUNTER → 2023-05-06 08:20 | Outpatient (BNVA) | payer MEDICARE, MEDICAID, SELFPAY | PROVIDERS: PCP Internal Medicine; Visit Provider Internal Medicine | DX: Z95.2 Presence of prosthetic heart valve (principal); Z79.01 Long term (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; Z51.81 Encounter for therapeutic drug level monitoring | CPT/HCPCS: 85610; 99211 ==

== ENCOUNTER 2023-05-09 08:20 | Outpatient (AMB) | payer MEDICARE, MEDICAID, SELFPAY ==
[2023-05-09 08:32] LABS: Prothrombin Time Whole Bld POC 24.5 sec (11.1-13.5)
--- NOTE | 2023-05-09 08:49 | MHC.OFFVISCO ---
Intake Intake Visit Reasons: Anticoagulation Allergies amiodarone Allergy (Intermediate, Verified 05/06/23 08:25) Swelling Nursing Note INR 2.0?? out of therapeutic range Medications and supplements reviewed Patient status: just returned from vacation, pt missed last saturday's dose even with her low INR, she made up part of her dose, discussed setting alarm in phone, Medications or supplements: no change Diet: good Denies any signs and symptoms of bleeding or clotting or unusual bruising Bleeding, bruising, clotting discussed Nutritional guidance given: avoid greens 3 more days, eat foods to help raise the INR Dose: 10mg today then 7.5mg x 6 days/ 10mg x 1 day F/U INR Date : 05/14/23Saturday ?? Patient verbalizing understanding of instructions given. call placed to PCP spoke with Isidra GOLD regarding pt status and plan of care to convey to PCP Anti-Coag Initial Assessment Social Hx Patient Tobacco Use Status: Former Tobacco user Quit Date: 2014 Tobacco use type: Cigarette alcohol intake: never Alcohol intake frequency: does not drink Coding Level of Care Code Est Patient Level 1 Diagnoses Current use of anticoagulant therapy Z79.01 Assessment & Plan Assessment & Plan (1) Current use of anticoagulant therapy: Code(s): Z79.01 - [facility] (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 Medications: Discontinued furosemide 40 mg See Protocol PO DAILY 90 tabs 2RF empagliflozin 10 mg PO DAILY 30 tabs 3RF I50.30 - Unspecified diastolic (congestive) heart failure
== END 2023-05-09 08:57 | disposition home or self-care (01) ==
LOC: HO.ACS 08:20
PROVIDERS: PCP Internal Medicine; Visit Provider Internal Medicine
DX: Z79.01 Long term (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 (principal)

== ENCOUNTER → 2023-05-09 08:20 | Outpatient (BNVA) | payer MEDICARE, MEDICAID, SELFPAY | PROVIDERS: PCP Internal Medicine; Visit Provider Internal Medicine | DX: Z95.2 Presence of prosthetic heart valve (principal); Z79.01 Long term (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; Z51.81 Encounter for therapeutic drug level monitoring | CPT/HCPCS: 85610; 99211 ==

== ENCOUNTER 2023-05-13 08:57 | Outpatient (AMB) | payer MEDICARE, MEDICAID, SELFPAY ==
--- NOTE | 2023-05-13 09:01 | MHC.OFFVISCO ---
Intake Intake Visit Reasons: Anticoagulation Allergies amiodarone Allergy (Intermediate, Verified 05/13/23 08:58) Swelling Medication List - Last Reconciled 05/13/23 by Fannie Thomason RN albuterol sulfate 90 mcg/actuation (Ventolin HFA) 2 puffs inhalation Q4-6H PRN atorvastatin 20 mg PO DAILY diltiazem HCl 120 mg PO DAILY empagliflozin (Jardiance) 10 mg PO BEDTIME ferrous sulfate 325 mg PO DAILY@1600 flecainide 100 mg PO Q12H [id number] 200-62.5-25 mcg (Trelegy Ellipta) 1 ea inhalation DAILY folic acid 1 mg PO DAILY furosemide 40 mg PO DAILY levothyroxine 25 mcg PO DAILY@0600 sertraline 200 mg PO DAILY warfarin See Protocol 2.5 mg orally 7.5mg daily; zolpidem 5 mg PO BEDTIME PRN Nursing Note INR 2.1-?? out of therapeutic range- denies missed dose Medications and supplements reviewed Patient status: no c.o Medications or supplements: no changes Diet: same Denies any signs and symptoms of bleeding or clotting or unusual bruising Bleeding, bruising, clotting discussed Nutritional guidance given: no greens for 2 days, eat a red today Dose: 12.5mg today then 7.5mg x 6, 10mg x 1 F/U INR Date : 05/16/23? Patient verbalizing understanding of instructions given. Anti-Coag Initial Assessment Social Hx Patient Tobacco Use Status: Former Tobacco user Quit Date: 2014 Tobacco use type: Cigarette alcohol intake: never Alcohol intake frequency: does not drink Coding Level of Care Code Est Patient Level 1 Diagnoses Current use of anticoagulant therapy Z79.01 Assessment & Plan Assessment & Plan (1) Current use of anticoagulant therapy: Code(s): Z79.01 - [facility] (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 Medications: Discontinued furosemide 40 mg See Protocol PO DAILY 90 tabs 2RF empagliflozin 10 mg PO DAILY 30 tabs 3RF I50.30 - Unspecified diastolic (congestive) heart failure
[2023-05-13 09:03] LABS: Prothrombin Time Whole Bld POC 25.6 sec (11.1-13.5); ~PT, ~INR - Anti Coag Clinic 2.1 (0.9-1.1)
== END 2023-05-13 09:08 | disposition home or self-care (01) ==
LOC: HO.ACS 08:57
PROVIDERS: PCP Internal Medicine; Visit Provider Internal Medicine
DX: Z79.01 Long term (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 (principal)

== ENCOUNTER → 2023-05-13 08:57 | Outpatient (BNVA) | payer MEDICARE, MEDICAID, SELFPAY | PROVIDERS: PCP Internal Medicine; Visit Provider Internal Medicine | DX: Z95.2 Presence of prosthetic heart valve (principal); Z79.01 Long term (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; Z51.81 Encounter for therapeutic drug level monitoring | CPT/HCPCS: 85610; 99211 ==

== ENCOUNTER 2023-05-16 08:49 | Outpatient (AMB) | payer MEDICARE, MEDICAID, SELFPAY ==
[2023-05-16 08:58] LABS: ~PT, ~INR - Anti Coag Clinic 3.1 (0.9-1.1)
--- NOTE | 2023-05-16 08:59 | MHC.OFFVISCO ---
Intake Intake Visit Reasons: Anticoagulation Allergies amiodarone Allergy (Intermediate, Verified 05/16/23 08:50) Swelling Medication List - Last Reconciled 05/16/23 by My Mata RN albuterol sulfate 90 mcg/actuation (Ventolin HFA) 2 puffs inhalation Q4-6H PRN atorvastatin 20 mg PO DAILY diltiazem HCl 120 mg PO DAILY empagliflozin (Jardiance) 10 mg PO BEDTIME ferrous sulfate 325 mg PO DAILY@1600 flecainide 100 mg PO Q12H [id number] 200-62.5-25 mcg (Trelegy Ellipta) 1 ea inhalation DAILY folic acid 1 mg PO DAILY furosemide 40 mg PO DAILY levothyroxine 25 mcg PO DAILY@0600 sertraline 200 mg PO DAILY warfarin See Protocol 2.5 mg orally 7.5mg daily; zolpidem 5 mg PO BEDTIME PRN Nursing Note Amb to ACS feeling well, not using O2, sts breathing has been good, has Pulm appt after this visit Medications and supplements reviewed No changes in health, diet, medications, or supplements Denies any unusual signs and symptoms of bruising, bleeding Denies any new Chest pain, SOB, or clotting INR:3.1 now in therapeutic range Nutritional guidance given: balance greens and reds in diet, food list reviewed Dose: continue new dosing;10mg Mondays and 7.5mg al other days F/U INR: 1 week Patient verbalizes understanding of instructions given with accurate read back/ teach back of dosing Anti-Coag Initial Assessment Social Hx Patient Tobacco Use Status: Former Tobacco user Quit Date: 2014 Tobacco use type: Cigarette alcohol intake: never Alcohol intake frequency: does not drink Coding Level of Care Code Est Patient Level 1 Diagnoses Current use of anticoagulant therapy Z79.01 Time Spent (min) 15 Results AMB INR Fingerstick AMB INR Fingerstick 3.1 Last Edit by My Mata RN on 05/16/23 08:58 interface failure Assessment & Plan Assessment & Plan (1) Current use of anticoagulant therapy: Code(s): Z79.01 - [facility] (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 Medications: Discontinued furosemide 40 mg See Protocol PO DAILY 90 tabs 2RF empagliflozin 10 mg PO DAILY 30 tabs 3RF I50.30 - Unspecified diastolic (congestive) heart failure
== END 2023-05-16 09:10 | disposition home or self-care (01) ==
LOC: HO.ACS 08:49
PROVIDERS: PCP Internal Medicine; Visit Provider Internal Medicine
DX: Z79.01 Long term (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 (principal)

== ENCOUNTER → 2023-05-16 08:49 | Outpatient (BNVA) | payer MEDICARE, MEDICAID, SELFPAY | PROVIDERS: PCP Internal Medicine; Visit Provider Internal Medicine | DX: J44.9 Chronic obstructive pulmonary disease, unspecified (principal); G47.33 Obstructive sleep apnea (adult) (pediatric); R09.02 Hypoxemia; J84.9 Interstitial pulmonary disease, unspecified; G47.34 Idiopathic sleep related nonobstructive alveolar hypoventilation; Z95.2 Presence of prosthetic heart valve; Z79.01 Long term (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; Z51.81 Encounter for therapeutic drug level monitoring | CPT/HCPCS: 85610; 99211; 99212 ==

== ENCOUNTER 2023-05-16 09:05 | Outpatient (AMB) | payer MEDICARE, MEDICAID, SELFPAY ==
[2023-05-16 09:20] VITALS: BP 110/62; PULSE 57; O2SAT 93; BMI 28.9
--- NOTE | 2023-05-16 09:20 | A.OFFVIS_ITS ---
Intake Vital Signs 05/16/23 09:20 Height 5 ft 2 in Weight 158 lb BMI 28.9 BP 110/62 Blood Pressure Location Lt brachial Position Standing Pulse 57 Pulse Source Pulse Oximeter Pulse Oximetry (%) 93 Oxygen Delivery Method Room Air Intake Visit Reasons: pulm hypertension Intake Note: pt is here for follow up and states she loves her c-pap, and she is feeling good. Clinical Research Monitor Required: No Allergies amiodarone Allergy (Intermediate, Verified 05/16/23 09:40) Swelling Medication List - Last Reconciled 05/16/23 by Mary Ellen Brumfield MD albuterol sulfate 90 mcg/actuation (Ventolin HFA) 2 puffs inhalation Q4-6H PRN atorvastatin 20 mg PO DAILY diltiazem HCl 120 mg PO DAILY empagliflozin (Jardiance) 10 mg PO BEDTIME ferrous sulfate 325 mg PO DAILY@1600 flecainide 100 mg PO Q12H onuwbosutws-ocdolstxp-woaneqyf 200-62.5-25 mcg (Trelegy Ellipta) 1 ea inhalation DAILY folic acid 1 mg PO DAILY furosemide 40 mg PO DAILY levothyroxine 25 mcg PO DAILY@0600 sertraline 200 mg PO DAILY warfarin See Protocol 2.5 mg orally 7.5mg daily; zolpidem 5 mg PO BEDTIME PRN Do you need a note to return to daycare/school/sports/work: No HPI pulm hypertension HPI Details 67 YEARS OLD FEMALE IS HERE FOR HER FOLLOW-UP, FOR SLEEP APNEA, USE OF CPAP, AND OXYGEN. SHE FEELS GOOD. LOVES TO USE CPAP AND SLEEPS VERY WELL, WAKES UP REFRESHED AND ENERGETIC. INFECT HER ACTIVITY LEVEL HAS DEFINITELY INCREASED, SHE GOES OUTDOORS SOMETIME EVEN WITHOUT OXYGEN. SHE HAS VERY LITTLE COUGH AND ALMOST NO WHEEZING. [facility] Medical History (HFpEF) heart failure with preserved ejection fraction Abnormal EKG Anemia Aortic stenosis Atrial fibrillation with rapid ventricular response Atrial flutter Atrial flutter with rapid ventricular response Bronchitis due to Staphylococcus aureus Cardiac pacemaker COPD (chronic obstructive pulmonary disease) COPD (chronic obstructive pulmonary disease) Current use of anticoagulant therapy Exercise hypoxemia Heart failure History of cardioversion History of transcatheter aortic valve replacement (TAVR) Hypoxia Interstitial lung disease Interstitial lung disease Interstitial lung disease Nocturnal hypoxemia Obesity Paroxysmal atrial fibrillation Persistent atrial fibrillation Pulmonary nodule Surgical History History of cardiac pacemaker History of sleeve gastrectomy (~2017) Hx of section Hx of mitral valve replacement (~2004) Hx of transesophageal echocardiography (SHELIA) for monitoring (~2015) S/P MVR (mitral valve replacement) Family History Father No problems noted. Mother CVD (cardiovascular disease) Social History Household Members: Family Housing: House Do you presently have visiting nurse or other home services: No Alcohol intake: never Patient Tobacco Use Status: Former Tobacco user Quit Date: 2014 Tobacco use type: Cigarette Years Smoked: 40 Advance Directives Date on File: 08/28/22 service: No Current occupational status: disabled Review of Systems Const All systems reviewed & are unremarkable except as noted in HPI and below Reports fatigue and Reports lethargy Eyes Reports no additional complaints ENT Reports no additional complaints Card Denies chest pain, Denies irregular heart rhythm, Denies leg edema and Reports dyspnea on exertion Resp Reports as per HPI and Reports dyspnea on exertion GI Reports no additional complaints Reports no additional complaints Musc Reports no additional complaints Skin/Breast Reports system reviewed and no additional complaints, except as documented Neuro Reports no additional complaints Psych Reports depression (Controlled with sertraline) Endo Reports fatigue and Reports other (Being treated for hypothyroidism) Physical Exam Vital Signs: Last Vital Signs Pulse 57 05/16/23 09:20 BP 110/62 05/16/23 09:20 Pulse Ox 93 05/16/23 09:20 Oxygen Delivery Method Room Air 05/16/23 09:20 BMI result Body Mass Index 28.9 Const General: comfortable (But short of breath), no acute distress, alert and awake Orientation/consciousness: patient oriented x3 HEENT Head: Yes normal to inspection General nose exam: No nasal polyps present and No nasal discharge present Face and sinus: Yes sinuses nontender Mouth: oropharynx normal Throat: Yes posterior oropharynx normal Eyes General: appearance normal, both eyes and all related structures Neck Neck: Yes normal visual inspection, Yes no lymphadenopathy, Yes trachea midline and Yes no JVD Thyroid: Thyroid normal Chest Chest palpation & inspection: abnormal inspection of the chest (Midline scar from previous cardiac surgery), normal palpation of entire chest wall and no tenderness Resp Other: Breath sounds are distant but equal on both sides. Prolonged expiratory phase, No wheezes rhonchi or crepitations are heard today. Cardio Palpation: normal PMI Rate: regular rate Rhythm: regular rhythm Heart sounds: no gallops and no murmurs GI Palpation (GI): Soft to palpation, nontender, No hepatosplenomegaly present and no masses Auscultation: normal bowel sounds Back/Spine/Pelvis Thoracic/Lumbar Spine: thoracic and lumbar spine normal to inspection Skin General skin exam: no rashes or lesions noted Neuro General: patient oriented x3 and no focal motor deficits Cranial nerves: Yes CN's II-XII intact bilaterally Extrem General: Yes normal to inspection, Yes no clubbing, cyanosis or edema and Yes no calf tenderness Psych Appearance: grossly normal and well kempt Speech and movement: Normal speech and movement present Results AMB INR Fingerstick AMB INR Fingerstick 3.1 Last Edit by My Mata RN on 05/16/23 08:58 interface failure Results Reviewed Results Reviewed: COMPLIANCE REPORT IS REVIEWED. USED 29/30 NIGHTS,. 97% AVERAGE USE PER NIGHT. 7 HOURS 27 MINUTES PRESSURE IS ONLY 7 CM. THERE IS SOME AIR LEAK NO RESIDUAL APNEA AHI 0.7 Assessment & Plan Assessment & Plan (1) COPD (chronic obstructive pulmonary disease): Comment: This patient being treated for chronic obstructive pulmonary disease. It remains quite stable and well controlled. Patient is requesting to join rehab program. PLAN ; PULMONARY FUNCTION TEST IS ORDERED, do consider .candidacy for the rehab program [place]: Uses Trelegy 1 inhalation daily , which will continue Also may use the Ventolin HFA 1 or 2 puffs Q 4-6 hours p.r.n.. Code(s): J44.9 - Chronic obstructive pulmonary disease, unspecified (2) Obstructive sleep apnea: Comment: Patient is a confirmed case of obstructive sleep apnea, She is very regular user of CPAP and is benefiting. . Compliance is excellent , patient commended for the good compliance and is advised to continue using the CPAP. On a regular basis Code(s): G47.33 - Obstructive sleep apnea (adult) (pediatric) (3) Exercise hypoxemia: Comment: This patient has documented hypoxemia on exertion. As she feels better she is not using the oxygen all the times when. She walks o r goes outdoors I MADE HER WALK FOR ABOUT 4 MINUTES IN THE HALLWAY AND O2 SAT DROPPED DOWN TO 86 % THUS I HAVE INSTRUCTED HER TO USE THE PORTABLE OXYGEN , 2 L/MINUTE FOR ANY SUSTAINED PHYSICAL ACTIVITY AND ALSO FOR GOING OUTDOORS. Code(s): R09.02 - Hypoxemia (4) Interstitial lung disease: Comment: Patient has had history of interstitial lung disease, which was considered to be due to amiodarone. The last CT scan has shown marked improvement , but there is still some residual interstitial lung disease. CLINICALLY I DO NOT THINK SHE HAS ANY RESIDUAL I LD AT THIS TIME. Code(s): J84.9 - Interstitial pulmonary disease, unspecified (5) Nocturnal hypoxemia: Comment: ON THE BASELINE STUDY PATIENT DID HAVE NOCTURNAL HYPOXEMIA. IT WAS CORRECTED WITH THE CPAP AT PRESSURE. OF 7 CM HOWEVER PATIENT IS STILL PUTTING ON THE OXYGEN AT NIGHT ALONG WITH THE CPAP, I TOLD HER NOT TO EXCEED 2 L/MINUTE. Code(s): G47.34 - Idiopathic sleep related nonobstructive alveolar hypoventilation Orders: Orders PFT pulmonary function test Today J44.9 - Chronic obstructive pulmonary disease, unspecified, J84.9 - Interstitial pulmonary disease, unspecified, R09.02 - Hypoxemia Medications: Discontinued furosemide 40 mg See Protocol PO DAILY 90 tabs 2RF empagliflozin 10 mg PO DAILY 30 tabs 3RF I50.30 - Unspecified diastolic (congestive) heart failure Coding Level of Care Code Est Pt Level 4 (55226) Diagnoses COPD (chronic obstructive pulmonary disease) J44.9 Obstructive sleep apnea G47.33 Exercise hypoxemia R09.02 Interstitial lung disease J84.9 Nocturnal hypoxemia G47.34
== END 2023-05-16 09:59 | disposition home or self-care (01) ==
PROVIDERS: PCP Internal Medicine; Visit Provider Internal Medicine
DX: J44.9 Chronic obstructive pulmonary disease, unspecified (principal); G47.33 Obstructive sleep apnea (adult) (pediatric); R09.02 Hypoxemia; J84.9 Interstitial pulmonary disease, unspecified; G47.34 Idiopathic sleep related nonobstructive alveolar hypoventilation
CPT/HCPCS: 99214

== ENCOUNTER 2023-05-23 08:43 | Outpatient (AMB) | payer MEDICARE, MEDICAID, SELFPAY ==
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
[2023-05-24 08:43] LABS: Prothrombin Time Whole Bld POC 28.2 sec (11.1-13.5); ~PT, ~INR - Anti Coag Clinic 2.3 (0.9-1.1)
== END 2023-05-23 08:55 | disposition home or self-care (01) ==
LOC: HO.ACS 08:43
PROVIDERS: PCP Internal Medicine; Visit Provider Internal Medicine
DX: Z79.01 Long term (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 (principal)

== ENCOUNTER → 2023-05-23 08:43 | Outpatient (BNVA) | payer MEDICARE, MEDICAID, SELFPAY | PROVIDERS: PCP Internal Medicine; Visit Provider Internal Medicine | DX: Z95.2 Presence of prosthetic heart valve (principal); Z79.01 Long term (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; Z51.81 Encounter for therapeutic drug level monitoring | CPT/HCPCS: 85610; 99211 ==

== ENCOUNTER 2023-05-27 08:36 | Outpatient (AMB) | payer MEDICARE, MEDICAID, SELFPAY ==
[2023-05-27 09:13] LABS: Prothrombin Time Whole Bld POC 29.6 sec (11.1-13.5); ~PT, ~INR - Anti Coag Clinic 2.5 (0.9-1.1)
--- NOTE | 2023-05-27 09:13 | MHC.OFFVISCO ---
Intake Intake Visit Reasons: Anticoagulation Allergies amiodarone Allergy (Intermediate, Verified 05/27/23 09:07) Swelling Medication List - Last Reconciled 05/27/23 by Cynthia Morrissey RN albuterol sulfate 90 mcg/actuation (Ventolin HFA) 2 puffs inhalation Q4-6H PRN atorvastatin 20 mg PO DAILY diltiazem HCl 120 mg PO DAILY empagliflozin (Jardiance) 10 mg PO BEDTIME ferrous sulfate 325 mg PO DAILY@1600 flecainide 100 mg PO BID zyswlhtosdk-xvchhumjh-ghlwnlmc 200-62.5-25 mcg (Trelegy Ellipta) 1 ea inhalation DAILY folic acid 1 mg PO DAILY furosemide 40 mg PO DAILY levothyroxine 25 mcg PO DAILY@0600 sertraline 200 mg PO DAILY warfarin See Protocol 2.5 mg orally 7.5mg daily; zolpidem 5 mg PO BEDTIME PRN Nursing Note INR: 2.5 in therapeutic range Medications and supplements reviewed No changes in health, diet, medications, or supplements, Denies any signs and symptoms of bleeding or bruising or clotting. Bleeding, bruising, clotting discussed Nutritional guidance given - EAT A MIX OF FRUITS AND VEGETABLES Dose: 10MG X 12 DAY/ 7.5MG X 6 DAYS F/U INR: 1 WEEK Patient verbalizes understanding of instructions given Anti-Coag Initial Assessment Social Hx Patient Tobacco Use Status: Former Tobacco user Quit Date: 2014 Tobacco use type: Cigarette alcohol intake: never Alcohol intake frequency: does not drink Coding Level of Care Code Est Patient Level 1 Diagnoses Current use of anticoagulant therapy Z79.01 Assessment & Plan Assessment & Plan (1) Current use of anticoagulant therapy: Code(s): Z79.01 - prison (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 Medications: Discontinued furosemide 40 mg See Protocol PO DAILY 90 tabs 2RF empagliflozin 10 mg PO DAILY 30 tabs 3RF I50.30 - Unspecified diastolic (congestive) heart failure
== END 2023-05-27 09:23 | disposition home or self-care (01) ==
LOC: HO.ACS 08:36
PROVIDERS: PCP Internal Medicine; Visit Provider Internal Medicine
DX: Z79.01 Long term (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 (principal)

== ENCOUNTER → 2023-05-27 08:36 | Outpatient (BNVA) | payer MEDICARE, MEDICAID, SELFPAY | PROVIDERS: PCP Internal Medicine; Visit Provider Internal Medicine | DX: Z95.2 Presence of prosthetic heart valve (principal); Z79.01 Long term (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; Z51.81 Encounter for therapeutic drug level monitoring | CPT/HCPCS: 85610; 99211 ==

== ENCOUNTER 2023-06-03 08:48 | Outpatient (AMB) | payer MEDICARE, MEDICAID, SELFPAY ==
--- NOTE | 2023-06-03 08:54 | MHC.OFFVISCO ---
Intake Intake Visit Reasons: Anticoagulation Allergies amiodarone Allergy (Intermediate, Verified 06/03/23 08:51) Swelling Medication List - Last Reconciled 06/03/23 by Fannie Thomason RN albuterol sulfate 90 mcg/actuation (Ventolin HFA) 2 puffs inhalation Q4-6H PRN atorvastatin 20 mg PO DAILY diltiazem HCl 120 mg PO DAILY empagliflozin (Jardiance) 10 mg PO BEDTIME ferrous sulfate 325 mg PO DAILY@1600 flecainide 100 mg PO BID magtnjzkhvt-yhrtmgvpo-vguovmuc 200-62.5-25 mcg (Trelegy Ellipta) 1 ea inhalation DAILY folic acid 1 mg PO DAILY furosemide 40 mg PO DAILY levothyroxine 25 mcg PO DAILY@0600 sertraline 200 mg PO DAILY warfarin See Protocol 2.5 mg orally 7.5mg daily; zolpidem 5 mg PO BEDTIME PRN Nursing Note INR: 2.5- in therapeutic range Medications and supplements reviewed No changes in health, diet, medications, or supplements, Denies any signs and symptoms of bleeding or bruising or clotting. Bleeding, bruising, clotting discussed Nutritional guidance given- no greens for 2 days, eat a red today Dose: 10mg x 1, 7.5mg x 6 F/U INR: 1 week Patient verbalizes understanding of instructions given Anti-Coag Initial Assessment Social Hx Patient Tobacco Use Status: Former Tobacco user Quit Date: 2014 Tobacco use type: Cigarette alcohol intake: never Alcohol intake frequency: does not drink Coding Level of Care Code Est Patient Level 1 Diagnoses Current use of anticoagulant therapy Z79.01 Assessment & Plan Assessment & Plan (1) Current use of anticoagulant therapy: Code(s): Z79.01 - group home (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 Medications: Discontinued furosemide 40 mg See Protocol PO DAILY 90 tabs 2RF empagliflozin 10 mg PO DAILY 30 tabs 3RF I50.30 - Unspecified diastolic (congestive) heart failure
[2023-06-03 08:55] LABS: Prothrombin Time Whole Bld POC 29.5 sec (11.1-13.5); ~PT, ~INR - Anti Coag Clinic 2.5 (0.9-1.1)
== END 2023-06-03 09:02 | disposition home or self-care (01) ==
LOC: HO.ACS 08:48
PROVIDERS: PCP Internal Medicine; Visit Provider Internal Medicine
DX: Z79.01 Long term (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 (principal)

== ENCOUNTER → 2023-06-03 08:48 | Outpatient (BNVA) | payer MEDICARE, MEDICAID, SELFPAY | PROVIDERS: PCP Internal Medicine; Visit Provider Internal Medicine | DX: Z95.2 Presence of prosthetic heart valve (principal); Z79.01 Long term (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; Z51.81 Encounter for therapeutic drug level monitoring | CPT/HCPCS: 85610; 99211 ==

== ENCOUNTER 2023-06-05 09:07 | Outpatient (REF) | payer MEDICARE, MEDICAID, SELFPAY ==
--- NOTE | 2023-06-05 10:23 | PFT_ITS ---
FLOWS: 1. FEV1 78% of predicted at 1.64 L. 2. FVC 81% of predicted at 2.24 L. 3. FEV1 to FVC ratio of 0.73. 4. No bronchodilator response. LUNG VOLUMES: 1. Total lung capacity 69% of predicted at 3.21 L. 2. Residual volume 53% of predicted at 1.03 L. 3. Slow vital capacity 82% of predicted at 2.18 L. 4. Expiratory reserve volume 97% of predicted at 0.61 L. 5. Diffusion capacity is moderately decreased. IMPRESSION: Moderate restrictive ventilatory defect with no bronchodilator response. Restrictive ventilatory defect with decreased diffusion capacity suggests underlying primary parenchymal disease. Clinical correlation is advised. MD OSITO Strickland/MODL / [id number]
== END 2023-06-05 09:08 | disposition home or self-care (01) ==
LOC: HO.RESP 09:07
PROVIDERS: PCP Internal Medicine; Visit Provider Internal Medicine
DX: J44.9 Chronic obstructive pulmonary disease, unspecified (principal); J84.9 Interstitial pulmonary disease, unspecified; R09.02 Hypoxemia
CPT/HCPCS: 94060; 94727; 94729

== ENCOUNTER → 2023-06-05 10:23 | Outpatient (BNV) | payer MEDICARE, MEDICAID, SELFPAY | PROVIDERS: PCP Internal Medicine; Visit Provider Internal Medicine Pulmonary Disease | DX: J44.9 Chronic obstructive pulmonary disease, unspecified (principal); G47.33 Obstructive sleep apnea (adult) (pediatric); Z95.2 Presence of prosthetic heart valve | CPT/HCPCS: 94060; 94727; 94729 ==

== ENCOUNTER → 2023-06-07 23:59 | Outpatient (BNV) | payer MEDICARE, MEDICAID, SELFPAY ==
--- NOTE | 2023-06-10 11:19 | A.OFFVIS_ITS ---
Intake Intake Visit Reasons: Remote ILR monitoring- [employer] Allergies amiodarone Allergy (Intermediate, Verified 06/10/23 08:53) Swelling COUNTS INCLUDE 234 BEDS AT THE [facility] Medical History (HFpEF) heart failure with preserved ejection fraction Abnormal EKG Anemia Aortic stenosis Atrial fibrillation with rapid ventricular response Atrial flutter Atrial flutter with rapid ventricular response Bronchitis due to Staphylococcus aureus Cardiac pacemaker COPD (chronic obstructive pulmonary disease) COPD (chronic obstructive pulmonary disease) Current use of anticoagulant therapy Exercise hypoxemia Heart failure History of cardioversion History of transcatheter aortic valve replacement (TAVR) Hypoxia Interstitial lung disease Interstitial lung disease Interstitial lung disease Nocturnal hypoxemia Obesity Paroxysmal atrial fibrillation Persistent atrial fibrillation Pulmonary nodule Surgical History History of cardiac pacemaker History of sleeve gastrectomy (~2017) Hx of section Hx of mitral valve replacement (~2004) Hx of transesophageal echocardiography (HSELIA) for monitoring (~2015) S/P MVR (mitral valve replacement) Family History Father No problems noted. Mother CVD (cardiovascular disease) Social History Household Members: Family Housing: House Do you presently have visiting nurse or other home services: No Alcohol intake: never Patient Tobacco Use Status: Former Tobacco user Quit Date: 2014 Tobacco use type: Cigarette Years Smoked: 40 Advance Directives Date on File: 08/28/22 service: No Current occupational status: disabled Office Procedures Cardiac Device Check Cardiac Device Check Details: Remote implantable loop recorder report generated 06/07/2023. Persistent atrial fibrillation noted on the presented strip. Total burden of atrial fibrillation reported at 2.6%. Patient has pauses during sleep hours, longest at about 3 seconds [id number] Cardiac Interrogation, subcut cardiac rhythm monitor Procedure code (CPT) selection complete Assessment & Plan Assessment & Plan Medications: Discontinued furosemide 40 mg See Protocol PO DAILY 90 tabs 2RF empagliflozin 10 mg PO DAILY 30 tabs 3RF I50.30 - Unspecified diastolic (congestive) heart failure Coding Level of Care Code Procedure Only Diagnoses CPT Codes Cardiac Device Check - Cardiac Device 16: [id number] Cardiac Interrogation, subcut cardiac rhythm monitor ([id number])
== END ==
PROVIDERS: PCP Internal Medicine; Visit Provider Internal Medicine Cardiovascular Disease
DX: I48.19 Other persistent atrial fibrillation (principal)
CPT/HCPCS: 93298

== ENCOUNTER 2023-06-10 08:52 | Outpatient (AMB) | payer MEDICARE, MEDICAID, SELFPAY ==
--- NOTE | 2023-06-10 08:58 | MHC.OFFVISCO ---
Intake Intake Visit Reasons: Anticoagulation Allergies amiodarone Allergy (Intermediate, Verified 06/10/23 08:53) Swelling Medication List - Last Reconciled 06/10/23 by Cynthia Morrissey RN albuterol sulfate 90 mcg/actuation (Ventolin HFA) 2 puffs inhalation Q4-6H PRN atorvastatin 20 mg PO DAILY diltiazem HCl 120 mg PO DAILY empagliflozin (Jardiance) 10 mg PO BEDTIME ferrous sulfate 325 mg PO DAILY@1600 flecainide 100 mg PO BID mokhugwhnhh-ynigsxrqj-ugsizfzb 200-62.5-25 mcg (Trelegy Ellipta) 1 ea inhalation DAILY folic acid 1 mg PO DAILY furosemide 40 mg PO DAILY levothyroxine 25 mcg PO DAILY@0600 sertraline 200 mg PO DAILY warfarin See Protocol 2.5 mg orally 7.5mg daily; zolpidem 5 mg PO BEDTIME PRN Nursing Note INR: 2.8 in therapeutic range Medications and supplements reviewed No changes in health, diet, medications, or supplements, Denies any signs and symptoms of bleeding or bruising or clotting. 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
[2023-06-10 08:59] LABS: Prothrombin Time Whole Bld POC 33.9 sec (11.1-13.5); ~PT, ~INR - Anti Coag Clinic 2.8 (0.9-1.1)
== END 2023-06-10 09:07 | disposition home or self-care (01) ==
LOC: HO.ACS 08:52
PROVIDERS: PCP Internal Medicine; Visit Provider Internal Medicine
DX: Z79.01 Long term (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 (principal)

== ENCOUNTER → 2023-06-10 08:52 | Outpatient (BNVA) | payer MEDICARE, MEDICAID, SELFPAY | PROVIDERS: PCP Internal Medicine; Visit Provider Internal Medicine | DX: Z95.2 Presence of prosthetic heart valve (principal); Z79.01 Long term (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; Z51.81 Encounter for therapeutic drug level monitoring | CPT/HCPCS: 85610; 99211 ==

== ENCOUNTER 2023-06-17 08:11 | Outpatient (AMB) | payer MEDICARE, MEDICAID, SELFPAY ==
--- NOTE | 2023-06-17 08:28 | MHC.OFFVISCO ---
Intake Intake Visit Reasons: Anticoagulation Allergies amiodarone Allergy (Intermediate, Verified 06/17/23 08:18) Swelling Medication List - Last Reconciled 06/17/23 by Cynthia Morrissey RN albuterol sulfate 90 mcg/actuation (Ventolin HFA) 2 puffs inhalation Q4-6H PRN atorvastatin 20 mg PO DAILY diltiazem HCl 120 mg PO DAILY empagliflozin (Jardiance) 10 mg PO BEDTIME ferrous sulfate 325 mg PO DAILY@1600 flecainide 100 mg PO BID mlddtacftuj-xtbcnopdr-oiuwcves 200-62.5-25 mcg (Trelegy Ellipta) 1 ea inhalation DAILY folic acid 1 mg PO DAILY furosemide 40 mg PO DAILY levothyroxine 25 mcg PO DAILY@0600 sertraline 200 mg PO DAILY warfarin See Protocol 2.5 mg orally 7.5mg daily; zolpidem 5 mg PO BEDTIME PRN Nursing Note INR: 3.3 in therapeutic range Medications and supplements reviewed No changes in health, diet, medications, or supplements, Denies any signs and symptoms of bleeding or bruising or clotting. Bleeding, bruising, clotting discussed Nutritional guidance given Dose: 10MG X 1 DAY /7.5MG X 6 DAYS F/U INR: 1 WEEK PER PT REQUEST WITH HX OF LABILE INR VALUES Patient verbalizes understanding of instructions given Anti-Coag Initial Assessment Social Hx Patient Tobacco Use Status: Former Tobacco user Quit Date: 2014 Tobacco use type: Cigarette alcohol intake: never Alcohol intake frequency: does not drink Coding Level of Care Code Est Patient Level 1 Diagnoses Current use of anticoagulant therapy Z79.01 Results AMB INR Fingerstick AMB INR Fingerstick 3.3 Last Edit by Cynthia Morrissey RN on 06/17/23 08:26 MANUAL ENTRY INTERFACE DELAY Assessment & Plan Assessment & Plan (1) Current use of anticoagulant therapy: Code(s): Z79.01 - retirement (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 Medications: Discontinued furosemide 40 mg See Protocol PO DAILY 90 tabs 2RF empagliflozin 10 mg PO DAILY 30 tabs 3RF I50.30 - Unspecified diastolic (congestive) heart failure
[2023-06-18 07:05] LABS: ~PT, ~INR - Anti Coag Clinic 3.3 (0.9-1.1)
== END 2023-06-17 08:30 | disposition home or self-care (01) ==
LOC: HO.ACS 08:11
PROVIDERS: PCP Internal Medicine; Visit Provider Internal Medicine
DX: Z79.01 Long term (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 (principal)

== ENCOUNTER → 2023-06-17 08:11 | Outpatient (BNVA) | payer MEDICARE, MEDICAID, SELFPAY | PROVIDERS: PCP Internal Medicine; Visit Provider Internal Medicine | DX: Z95.2 Presence of prosthetic heart valve (principal); Z79.01 Long term (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; Z51.81 Encounter for therapeutic drug level monitoring; Z45.09 Encounter for adjustment and management of other cardiac device; I45.5 Other specified heart block; I48.0 Paroxysmal atrial fibrillation; I50.30 Unspecified diastolic (congestive) heart failure | CPT/HCPCS: 93005; 99211; 99212 ==

== ENCOUNTER 2023-06-17 13:03 | Outpatient (AMB) | payer MEDICARE, MEDICAID, SELFPAY ==
--- NOTE | 2023-06-17 13:43 | MHC.OFFVIS ---
Intake Vital Signs 06/17/23 13:44 Height 5 ft 2 in Weight 160 lb 14.999 oz BMI 29.4 BP 140/60 H Blood Pressure Location Lt brachial Position Sitting Intake Visit Reasons: overdue follow-up with pacer check Intake Note: overdue f/up with pacer check Unix Consultant Required: No Accompanied by: Grand Child Allergies amiodarone Allergy (Intermediate, Verified 06/17/23 13:48) Swelling Medication List - Last Reconciled 06/17/23 by Luis Antonio Nelson MD albuterol sulfate 90 mcg/actuation (Ventolin HFA) 2 puffs inhalation Q4-6H PRN atorvastatin 20 mg PO DAILY diltiazem HCl 120 mg PO DAILY empagliflozin (Jardiance) 10 mg PO BEDTIME ferrous sulfate 325 mg PO DAILY@1600 flecainide 100 mg PO BID gtokefyuvnb-yonvbzpxv-nhgbvyfo 200-62.5-25 mcg (Trelegy Ellipta) 1 ea inhalation DAILY folic acid 1 mg PO DAILY furosemide 40 mg PO DAILY levothyroxine 25 mcg PO DAILY@0600 sertraline 200 mg PO DAILY warfarin See Protocol 2.5 mg orally 7.5mg daily; zolpidem 5 mg PO BEDTIME PRN HPI HPI Comments History of Present Illness Details Nubia comes for follow-up. She complains of feeling tired more often. She is using her CPAP machine. Comes for implantable loop recorder check. She was noted on today's monitoring to have multiple pauses greater than 5 seconds during sleep hours but while she is using CPAP machine. She denies any lightheadedness or syncope but complains of increased symptoms of fatigue. No prolonged irregular heartbeat or palpitation. She comes after a long gap. She denies any clear orthopnea, PND, leg edema. Taking all her medications at current time. [facility] Medical History (Updated 06/17/23 @ 16:22 by Luis Antonio Nelson MD) (HFpEF) heart failure with preserved ejection fraction Abnormal EKG Acute diastolic CHF (congestive heart failure) Anemia Aortic stenosis Atrial fibrillation with rapid ventricular response Atrial flutter Atrial flutter with rapid ventricular response Bronchitis due to Staphylococcus aureus Cardiac pacemaker COPD (chronic obstructive pulmonary disease) COPD (chronic obstructive pulmonary disease) Current use of anticoagulant therapy Exercise hypoxemia Heart failure History of cardioversion History of transcatheter aortic valve replacement (TAVR) Hypoxia Interstitial lung disease Interstitial lung disease Interstitial lung disease Nocturnal hypoxemia Obesity Paroxysmal atrial fibrillation Persistent atrial fibrillation Pulmonary nodule Surgical History History of cardiac pacemaker History of sleeve gastrectomy (~2017) Hx of section Hx of mitral valve replacement (~2004) Hx of transesophageal echocardiography (SHELIA) for monitoring (~2015) S/P MVR (mitral valve replacement) Family History Father No problems noted. Mother CVD (cardiovascular disease) Social History Household Members: Family Housing: House Do you presently have visiting nurse or other home services: No Alcohol intake: never Patient Tobacco Use Status: Former Tobacco user Quit Date: 2014 Tobacco use type: Cigarette Years Smoked: 40 Advance Directives Date on File: 08/28/22 service: No Current occupational status: disabled Review of Systems ENT Reports dizziness Card Denies chest pain, Denies chest pain at rest, Denies chest pain with activity, Denies rapid heart rate, Denies pedal edema, Denies edema, Denies leg edema, Denies lightheadedness, Denies palpitations, Denies dyspnea, Denies dyspnea on exertion and Denies orthopnea Resp Denies cough, Denies dyspnea and Denies dyspnea on exertion GI Denies hematochezia and Denies change in stool character Musc Denies abnormal gait, Reports limited range of motion, Reports muscle cramps, Denies muscle weakness, Denies numbness, Denies radiating pain into limb, Denies stiffness and Denies tingling Neuro Denies abnormal gait, Reports dizziness, Denies numbness and Denies tingling Endo Denies palpitations Physical Exam Vital Signs: Last Vital Signs BP 140/60 H 06/17/23 13:44 BMI result Body Mass Index 29.4 Const General: cooperative, comfortable, no acute distress, alert, awake, Physically active and well groomed Nutritional Appearance: overweight Orientation/consciousness: patient oriented x3 Limitations: no limitations Neck Neck: Yes trachea midline, Yes supple and Yes JVD Resp Effort & Inspection: normal respiratory effort Auscultation: crackles (coarse) bilateral at the base, no rales, wheezes and diminished lung sounds Cardio Jugular venous distension: no JVD Palpation: normal PMI Rate: regular rate Rhythm: regular rhythm Heart sounds: S2 normal heart sound present, Murmur heart sound present systolic early and Other heart sounds present ([place] opening and closing click of Saint Alex mitral valve) GI Inspection: Yes distended Auscultation: normal bowel sounds Skin General skin exam: no rashes or lesions noted Neuro General: patient oriented x3 and no focal motor deficits Extrem General: Yes no clubbing, cyanosis or edema Office Procedures Cardiac Device Check Cardiac Device Check Details: Implantable loop recorder checked at bedside. Noted multiple pauses greater than 5 seconds. Multiple episodes of atrial fibrillation noted as well. Some of the episode might be post-conversion pauses. [id number] Device Interrogation, subcut cardiac rhythm monitor Procedure code (CPT) selection complete EKG Details: EKG shows sinus bradycardia with diffuse nonspecific ST depression 41024-[id number], Complete Results AMB INR Fingerstick AMB INR Fingerstick 3.3 Last Edit by Cynthia Morrissey RN on 06/17/23 08:26 MANUAL ENTRY INTERFACE DELAY Assessment & Plan Assessment & Plan (1) Sinus pause: Code(s): I45.5 - Other specified heart block Plan: Patient continues to multiple pauses some of them appear to be post-conversion pauses with underlying paroxysmal atrial fibrillation. Overall finding consistent with tachy-oren syndrome as her sleep apnea is currently corrected with CPAP machine. Recommend her to undergo dual-chamber pacemaker placement. Case discussed with EPS and agreeable. She will hold her warfarin a day prior to her procedure and procedure will be proceeded if her INR is less than 3. The need for pacemaker was discussed with her especially given that she has paroxysmal atrial fibrillation that requires antiarrhythmic drug therapy. This should also improve some of the symptoms that she has which has suggestive chronotropic incompetence. (2) PAF (paroxysmal atrial fibrillation): Code(s): I48.0 - Paroxysmal atrial fibrillation Plan: Paroxysmal atrial fibrillation with overall burden on the lower side. Has done well with rhythm control approach and will continue to pursue rhythm control approach. Continue current diltiazem and flecainide therapy. Currently on warfarin therapy. Maintain target INR between 2.5 and 3.5. (3) Status post transcatheter aortic valve replacement: Code(s): Z95.2 - Presence of prosthetic heart valve Plan: Status post transcatheter aortic valve replacement doing well from that perspective. Her heart failure syndrome has improved significantly since then. Currently on warfarin therapy and continue the same. SBE prophylaxis as per ACC/aha guidelines. 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 Clinically working well. Continue full oral anticoagulation, currently on warfarin therapy with INR between 2.5 and 3.5. Continue SBE prophylaxis as per ACC/aha guidelines. (5) (HFpEF) heart failure with preserved ejection fraction: Code(s): I50.30 - Unspecified diastolic (congestive) heart failure Plan: Heart failure preserved ejection fraction, clinically euvolemic and well compensated. Has done well with transcatheter aortic valve replacement as well as rhythm management. Continue current diuretic regimen. Daily weight monitoring avoidance of salt loading was discussed. Continue chronic oxygen therapy for her hypoxemic chronic respiratory failure. Continue participate in physical activity as tolerated. Continue Jardiance 10 mg daily. Will follow with her in 6 weeks time, sooner p.r.n.. Thank you for allowing me to partake in her care Medications: Discontinued furosemide 40 mg See Protocol PO DAILY 90 tabs 2RF empagliflozin 10 mg PO DAILY 30 tabs 3RF I50.30 - Unspecified diastolic (congestive) heart failure Coding Level of Care Code Est Pt Level 4 (96362) Diagnoses Sinus pause I45.5 PAF (paroxysmal atrial fibrillation) I48.0 Status post transcatheter aortic valve replacement Z95.2 Hx of mitral valve replacement Z95.2 (HFpEF) heart failure with preserved ejection fraction I50.30 CPT Codes Cardiac Device Check - Cardiac Device 11: [id number] Device Interrogation, subcut cardiac rhythm monitor ([id number]) EKG - CPT: 16438-Lfoanvqzzxbsnbrpv, Complete ([id number])
[2023-06-17 13:44] VITALS: BP 140/60; BMI 29.4
== END 2023-06-17 14:12 | disposition home or self-care (01) ==
PROVIDERS: PCP Internal Medicine; Referring Provider Internal Medicine; Visit Provider Internal Medicine Cardiovascular Disease
DX: I45.5 Other specified heart block (principal); I48.0 Paroxysmal atrial fibrillation; Z95.2 Presence of prosthetic heart valve; I50.30 Unspecified diastolic (congestive) heart failure
CPT/HCPCS: 93291; 99214

== ENCOUNTER 2023-06-18 09:14 | Day surgery (SDC) | payer MEDICARE, MEDICAID, SELFPAY ==
--- NOTE | ~2023-06-18 | FL_ITS ---
EXAMINATION: XR FLUOROSCOPY WITH IMAGES CLINICAL INFORMATION: Dual chamber pacemaker insertion COMPARISON: None available. TECHNIQUE: TOTAL DOSE 228.67 MGY NO DAP TIME 355.1 SEC 4 IMAGES TECH-TL/CHELSY FINDINGS: Fluoroscopy guidance provided for pacemaker insertion. There is a left subclavian vein venogram. No central stenosis seen. Left subclavian pacemaker leads not well visualized. Median sternotomy wires, heart valve ring and left chest recorder. FL/FL guidance in OR IMPRESSION: Fluoroscopy guidance for pacemaker insertion.
--- NOTE | ~2023-06-18 | XR_ITS ---
EXAMINATION: XR CHEST CLINICAL INFORMATION: Status-post pacemaker placement. COMPARISON: None available. TECHNIQUE: Frontal view of the chest was obtained. FINDINGS: There are stable postoperative changes consistent with prior cardiac valvuloplasties. There is pulmonary vascular congestion. No infiltrate or congestive heart failure is seen. There is no pleural effusion or pneumothorax. No acute osseous abnormality is seen. A pacemaker device is noted. A snow blower device is noted. XR/XR chest 1V IMPRESSION: 1. There is pulmonary vascular congestion, without pulmonary edema. 2. No infiltrate or effusion is seen.
--- NOTE | 2023-06-19 14:33 | P.CONAN_ITS ---
Documented by User: Paula Bray NP 06/19/23 14:37 HPI - Anesthesia Eval Consult details Narrative: 67yo F for Pacemaker Insertion, Dual Recent pulmo visit. Stable, but requires supplemental O2 based on walk test. Coumadin for MVR/TAVR/Afib PMFSH Active Problems Active Problems: All Active Problems (Updated 06/17/23 @ 16:22 by Luis Antonio Nelson MD) COPD exacerbation (Acute) Bilateral pneumonia (Acute) Nocturnal hypoxemia (Acute) Obstructive sleep apnea (Acute) Hypersomnia (Acute) Sinus pause (Acute) Interstitial lung disease (Acute) COPD (chronic obstructive pulmonary disease) (Acute) PAF (paroxysmal atrial fibrillation) (Acute) Pulmonary nodule (Acute) Status post transcatheter aortic valve replacement (Acute) Hx of mitral valve replacement (Acute ~2004) (HFpEF) heart failure with preserved ejection fraction (Acute) Exercise hypoxemia (Acute) Bronchitis due to Staphylococcus aureus (Acute) Mood disorder (Acute) Hypothyroidism (Acute) Increasing shortness of breath (Acute) D-dimer, elevated (Acute) Abnormal ECG (Acute) Past Medical History Medical History (Updated 06/17/23 @ 16:22 by Luis Antonio Nelson MD) (HFpEF) heart failure with preserved ejection fraction Abnormal EKG Acute diastolic CHF (congestive heart failure) Anemia Aortic stenosis Atrial fibrillation with rapid ventricular response Atrial flutter Atrial flutter with rapid ventricular response Bronchitis due to Staphylococcus aureus Cardiac pacemaker COPD (chronic obstructive pulmonary disease) COPD (chronic obstructive pulmonary disease) Current use of anticoagulant therapy Exercise hypoxemia Heart failure History of cardioversion History of transcatheter aortic valve replacement (TAVR) Hypoxia Interstitial lung disease Interstitial lung disease Interstitial lung disease Nocturnal hypoxemia Obesity Paroxysmal atrial fibrillation Persistent atrial fibrillation Pulmonary nodule Family History Family History Father No problems noted. Mother CVD (cardiovascular disease) Family history of problems with anesthesia: No Surgical History Surgical History (Updated 06/20/23 @ 12:03 by Cherie Rueda) Aortic valve replaced H/O heart surgery History of sleeve gastrectomy (~2017) Hx of section Hx of mitral valve replacement (~2004) Hx of transesophageal echocardiography (SHELIA) for monitoring (~2015) History of Problems with Anesthesia: No Social History Social History Household Members: Family Housing: House Do you presently have visiting nurse or other home services: No Alcohol intake: never Patient Tobacco Use Status: Former Tobacco user Quit Date: 2012 Tobacco use type: Cigarette Years Smoked: 29 Smoked in Last 30 Days: No Use of substances other than those prescribed or required for medical reasons: Yes Substance Use Frequency: Chronic Longstanding Are you DNR?: No Advance Directives: No Advance Directives Information Provided: Yes Advance Directives Date on File: 08/28/22 service: No Current occupational status: disabled Meds Allergies Allergy/AdvReac Type Severity Reaction Status Date / Time amiodarone Allergy Intermediate Swelling Verified 06/20/23 12:03 Home Medications Medication Instructions Recorded Confirmed Last Taken Type levothyroxine 25 mcg tablet 25 mcg PO DAILY@0600 09/01/20 06/20/23 06/20/23 History atorvastatin 20 mg tablet 20 mg PO DAILY 04/26/21 06/20/23 06/20/23 History sertraline 100 mg tablet 200 mg PO DAILY 04/26/21 06/20/23 06/20/23 History zolpidem 5 mg tablet 5 mg PO BEDTIME PRN Insomnia 02/18/23 06/20/23 03/25/23 History empagliflozin 10 mg tablet 10 mg PO BEDTIME 03/26/23 06/20/23 06/19/23 History (Jardiance) fluticasone fur. 200 mcg-umeclid 1 ea inhalation DAILY 03/26/23 06/20/23 06/19/23 History 62.5 mcg-vilant 25 mcg inhalat.powder (Trelegy Ellipta) albuterol sulfate 90 mcg/actuation 2 puff inhalation Q4-6H PRN 04/08/23 06/20/23 06/06/23 History aerosol inhaler (Ventolin HFA) breathing warfarin 2.5 mg tablet 2.5 mg PO .COMPLEX 04/12/23 06/20/23 06/18/23 History ferrous sulfate 325 mg (65 mg 325 mg PO DAILY@1600 04/22/23 06/20/23 06/19/23 History iron) tablet Exam Exam Date and Time: June 19, 2023 1433 Pertinent Lab Results Pertinent Lab Results: Laboratory Tests 03/27/23 03/27/23 03/28/23 05:14 05:14 07:40 WBC 11.6 H Hgb 10.4 L Hct 33.9 L Plt Count 231 Sodium 144 Potassium 3.3 Chloride 105 Carbon Dioxide 27 BUN 19 H Creatinine 0.69 Narrative Narrative: EKG 05/2023 sinus bradycardia with diffuse nonspecific ST depression ECHO 02/2023 Conclusions: - 1. Normal LV systolic function with mild LVH ? 2. Moderately dilated left atrium? 3. Bioprosthetic aortic valve in place with mean gradient of 17? mmHg, most suggestive patient prosthesis mismatch? 4. Normally function mechanical mitral valve prosthesis? 5. Moderate to severe elevation right? ventricular systolic? ? ? pressure with mildly elevated right atrial pressures ? 6. No pericardial effusion ? ?? Cardiac Device Check Details: Remote implantable loop recorder report generated 06/07/2023.? Persistent atrial fibrillation noted on the presented strip.? Total burden of atrial fibrillation reported at 2.6%.? Patient has pauses during sleep hours, longest at about 3 seconds [id number] Cardiac Interrogation, subcut cardiac rhythm monitor Assessment and Plan Assessment Anesthesia Assessment: Chart Reviewed Final Anesthetic Review Family History of Problems with Anesthesia: No History of Problems with Anesthesia: No Documented by User: Landon Benitez MD 06/20/23 16:34 HPI - Anesthesia Eval Consult details Narrative: 67yo F for Pacemaker Insertion, Dual COPD, ILD Recent pulmo visit. Stable, but requires supplemental O2 based on walk test. Coumadin for MVR/TAVR/Afib Case discussed with the telephone switchboard operator . [facility] Past Medical History Medical History (Updated 06/17/23 @ 16:22 by Luis Antonio Nelson MD) (HFpEF) heart failure with preserved ejection fraction Abnormal EKG Acute diastolic CHF (congestive heart failure) Anemia Aortic stenosis Atrial fibrillation with rapid ventricular response Atrial flutter Atrial flutter with rapid ventricular response Bronchitis due to Staphylococcus aureus Cardiac pacemaker COPD (chronic obstructive pulmonary disease) COPD (chronic obstructive pulmonary disease) Current use of anticoagulant therapy Exercise hypoxemia Heart failure History of cardioversion History of transcatheter aortic valve replacement (TAVR) Hypoxia Interstitial lung disease Interstitial lung disease Interstitial lung disease Nocturnal hypoxemia Obesity Paroxysmal atrial fibrillation Persistent atrial fibrillation Pulmonary nodule Functional capacity: independent ambulation Family History Family History Father No problems noted. Mother CVD (cardiovascular disease) Surgical History Surgical History (Updated 06/20/23 @ 12:03 by Cherie Rueda) Aortic valve replaced H/O heart surgery History of sleeve gastrectomy (~2017) Hx of section Hx of mitral valve replacement (~2004) Hx of transesophageal echocardiography (SHELIA) for monitoring (~2015) Social History Social History Household Members: Family Housing: House Do you presently have visiting nurse or other home services: No Alcohol intake: never Patient Tobacco Use Status: Former Tobacco user Quit Date: 2012 Tobacco use type: Cigarette Years Smoked: 29 Smoked in Last 30 Days: No Use of substances other than those prescribed or required for medical reasons: Yes Substance Use Frequency: Chronic Longstanding Are you DNR?: No Advance Directives: No Advance Directives Information Provided: Yes Advance Directives Date on File: 08/28/22 service: No Current occupational status: disabled Meds Allergies Allergy/AdvReac Type Severity Reaction Status Date / Time amiodarone Allergy Intermediate Swelling Verified 06/20/23 12:03 Home Medications Medication Instructions Recorded Confirmed Last Taken Type levothyroxine 25 mcg tablet 25 mcg PO DAILY@0600 09/01/20 06/20/23 06/20/23 History atorvastatin 20 mg tablet 20 mg PO DAILY 04/26/21 06/20/23 06/20/23 History sertraline 100 mg tablet 200 mg PO DAILY 04/26/21 06/20/23 06/20/23 History zolpidem 5 mg tablet 5 mg PO BEDTIME PRN Insomnia 02/18/23 06/20/23 03/25/23 History empagliflozin 10 mg tablet 10 mg PO BEDTIME 03/26/23 06/20/23 06/19/23 History (Jardiance) fluticasone fur. 200 mcg-umeclid 1 ea inhalation DAILY 03/26/23 06/20/23 06/19/23 History 62.5 mcg-vilant 25 mcg inhalat.powder (Trelegy Ellipta) albuterol sulfate 90 mcg/actuation 2 puff inhalation Q4-6H PRN 04/08/23 06/20/23 06/06/23 History aerosol inhaler (Ventolin HFA) breathing warfarin 2.5 mg tablet 2.5 mg PO .COMPLEX 04/12/23 06/20/23 06/18/23 History ferrous sulfate 325 mg (65 mg 325 mg PO DAILY@1600 04/22/23 06/20/23 06/19/23 Hi story iron) tablet Exam Airway Mallampati Class: III Neck ROM: Full Denture: Upper Loose/Missing/Broken Teeth: Yes Assessment and Plan Final Anesthetic Review NPO: Yes ASA Class: IV Final Preanesthetic Review: Meds/Allgs Chart Reviewed, Consent Obtained/Reviewed and Anes Risks/Benef Reviewed Patient Risk: Intermediate Procedure Risk: Intermediate Anesthetic Plan Anesthetic Plan: MAC: and Agree w/ Assess. and Plan Disposition: Standard PACU
[2023-06-20] VITALS (10 sets, daily range): BP systolic 97–129; BP diastolic 43–69; PULSE 58–74; RESP 15–18; TEMP 36.2–36.8; O2SAT 92–97; BMI 29.4
[2023-06-20] MEDS: Lactated Ringers 1,000 ML 50 ML IVCONT (13:16)
--- NOTE | 2023-06-20 13:17 | PC.NURSE ---
Patient in preop, states This morning I was cutting up watermelon and put a piece in my mouth, chewed it, and spit it out . Verified that this was at 0700 and that nothing was swallowed. Anesthesia Dr. Benitez made aware. Okay to proceed with surgery.
--- NOTE | 2023-06-20 15:41 | W.PM.OPN ---
Operative Note Operative Note Date of Service: 06/20/23 Narrative: Park Keeper:??Dr. Melchor Mancilla ? NAME OF PROCEDURE: ? 1.? ? Single chamber pacemaker with atrial lead 2.??? Conscious sedation 3.? ??Left upper extremity venogram ? INDICATION FOR PROCEDURE:??Symptomatic pauses ? ? CONTRAST USED:? 10 ml SEDATION:??Monitored Anaesthesia Control Description of Procedure:?Patient was identified brought to the electrophysiology laboratory in a postabsorptive state.??The left pectoral region was prepped and draped in usual sterile fashion. Left upper extremity venogram was performed. Incision was made over the left pectoral region and pectoral subcutaneous pocket was made. Afterwards left axillary venous access was obtained using venogram and fluoroscopic guidance, a 7-[place]izen [place] sheath was placed.??Right ventricular pacing lead was advanced into the right ventricle however due to tricuspid valve repair it was difficult to advance the lead across the annulus. ? Right atrial pacing lead was advanced and placed in the right atrial appendage with good sensing and pacing thresholds.??The sheath was split and the lead was then anchored to the pectoral fascia with Ethibond suture.?? ? The subcutaneous pocket was made and the wound was irrigated with antibiotic solution.??The??leads were then connected to a?pacemaker?generator and placed in the pocket.??The wound was closed with 3 layers of absorbable sutures.?? Patient tolerated procedure well.??There were no complications. ? IMPLANTED HARDWARE:?? 1.? ??Pulse generator:??Dynamite Shooter [employer] Volume Wizard App , model name is FRANTZ XT, model number is [id number], serial number is [id number]. 2.? ??Right atrial lead:??Dynamite Shooter Medtronic model name is 5076, 52 cm, serial number is [id number]? Programmed Parameters:? VVI RA Lead Sensitivity: 0.45 mV RA Lead Output: 0.5V at 0.4ms Device Measurements: RA Lead? RA Lead: P-wave: 2.1 mV RA Lead Threshold: 0.5V at 0.4ms RA Lead Impedance: 437 ohms IMPRESSION:?? Successful?implantation?of single chamber pacemaker with atrial lead ? ? PLAN: ? 1.?Routine postprocedure monitoring. 2.?CXR 3.?Post operative Abx? 4. ???EKG today? 5. ???Interrogation of device
--- NOTE | 2023-06-20 15:43 | ECG_ITS ---
Test Reason : pacemaker Blood Pressure : / mmHG Vent. Rate : 064 BPM Atrial Rate : 064 BPM P-R Int : 128 ms QRS Dur : 106 ms QT Int : 442 ms P-R-T Axes : 092 052 -11 degrees QTc Int : 455 ms Normal sinus rhythm with occasional atrial-paced complexes Nonspecific T wave abnormality Abnormal ECG When compared with ECG of 26-MAR-2023 10:29, Nonspecific T wave abnormality has replaced inverted T waves in Lateral leads QT has shortened Referred By: Melchor Mancilla Electronically Signed By:MEL JERONIMO
--- NOTE | 2023-06-20 16:45 | PM.IMHP ---
History of Present Illness Date of Service: 06/20/23 Chief Complaint: Pacemaker placement A 67 years old lady with PMH of Afib on Warfarin, dCHF, s\p TAVR , ILD, COPD among others who presents to the hospital for elective placement of PPM for symptomatic pauses. The patient feels comfortable after the procedure with no pain, SOB or dyspnea. Noted to have low INR of 1.6. Admitted for observation overnight. Review of Systems Review of Systems: No fever, chills or weakness No chest pain, palpitation No shortness of breath or coughing No abdominal pain, nausea or vomiting No urinary symptoms No any rash or wounds PMFSH Medical History (HFpEF) heart failure with preserved ejection fraction Abnormal EKG Acute diastolic CHF (congestive heart failure) Anemia Aortic stenosis Atrial fibrillation with rapid ventricular response Atrial flutter Atrial flutter with rapid ventricular response Bronchitis due to Staphylococcus aureus Cardiac pacemaker COPD (chronic obstructive pulmonary disease) COPD (chronic obstructive pulmonary disease) Current use of anticoagulant therapy Exercise hypoxemia Heart failure History of cardioversion History of transcatheter aortic valve replacement (TAVR) Hypoxia Interstitial lung disease Interstitial lung disease Interstitial lung disease Nocturnal hypoxemia Obesity Paroxysmal atrial fibrillation Persistent atrial fibrillation Pulmonary nodule Functional capacity: independent ambulation Family History Father No problems noted. Mother CVD (cardiovascular disease) Surgical History Aortic valve replaced H/O heart surgery History of sleeve gastrectomy (~2017) Hx of section Hx of mitral valve replacement (~2004) Hx of transesophageal echocardiography (SHELIA) for monitoring (~2015) Social History Household Members: Family Housing: House Do you presently have visiting nurse or other home services: Yes Alcohol intake: never Patient Tobacco Use Status: Former Tobacco user Quit Date: 2012 Tobacco use type: Cigarette Years Smoked: 29 Smoked in Last 30 Days: No e-Cigarette/Vaping Use: Never Used Patient Interested in Nicotine Replacement: No Patient Given Instructions on How to Stop Smoking: No Second Hand Smoke Exposure: No Use of substances other than those prescribed or required for medical reasons: No Substance Use Frequency: Chronic Longstanding Currently Displaying Signs/Symptoms of Drug Intoxication Withdrawal: No Any prior treatment program specific to substance use: No Have you been hit, kicked, punched, or otherwise hurt by someone within the past year? If so, by whom?: No Do you feel safe in your current relationship?: Yes Is there a partner from a previous relationship who is making you feel unsafe now?: No Are you made to feel afraid or neglected: No Are you DNR?: No Advance Directives: No Advance Directives Information Provided: Yes Advance Directives Date on File: 08/28/22 Do you have thoughts of harming others: None Do you have a plan to hurt others: No Plan Recently lost weight without trying: Yes How much weight loss: 2-13 pounds Eating poorly because of decreased appetite: No Nutrition screen score: 3 Nutrition Risks: No Nutritional Risk Patient : No : No Poor oral hygiene: No service: No Current occupational status: disabled Meds Allergies Allergy/AdvReac Type Severity Reaction Status Date / Time amiodarone Allergy Intermediate Swelling Verified 06/20/23 12:03 Active Medications: Current Medications Acetaminophen (Acetaminophen 325 Mg Tablet) 650 mg PO Q6H PRN PRN Reason: Pain, Mild (Pain Scale 1-3) Albuterol Sulfate (Albuterol Sulfate 90 Mcg 8 Gm Inhaler) 2 puff INHALE Q4-6H PRN PRN Reason: breathing Atorvastatin Calcium (Atorvastatin Calcium 20 Mg Tablet) 20 mg PO DAILY [facility] Diltiazem HCl (Diltiazem Hcl Cd 120 Mg Cap.Er.Deg) 120 mg PO DAILY [facility]; Protocol Empagliflozin (Empagliflozin 10 Mg Tablet) 10 mg PO BEDTIME [facility] Enoxaparin Sodium (Enoxaparin Sodium 80 Mg/0.8 Ml Syringe) 70 mg 1 mg/kg (70 mg) SUBCUT Q12H [facility] Fluticasone/Umeclidinium/Vilanterol (Fluticasone/Umeclidinium/Vilanterol 200/62.5/25 Blst.W.Dev) puff INHALE DAILY [facility] Folic Acid (Folic Acid 1 Mg Tablet) 1 mg PO DAILY [facility] Furosemide (Furosemide 40 Mg Tablet) 40 mg PO DAILY [facility]; Protocol Lactated Ringer's (Lr) 1,000 mls @ 50 mls/hr IVCONT .Q20H [facility] Last Admin: 06/20/23 13:16 Dose: 50 mls/hr Cefazolin Sodium/Dextrose (Ancef) 2 gm in 50 mls @ 100 mls/hr IV Q8H [facility] Stop: 06/21/23 11:00 Levothyroxine Sodium (Levothyroxine Sodium 25 Mcg Tablet) 25 mcg PO DAILY@0600 [facility] Non-Formulary Medication (Flecainide) 100 mg PO BID [facility] Ondansetron HCl (Ondansetron Hcl 4 Mg/2 Ml Vial) 4 mg IVPUSH Q8H PRN PRN Reason: Nausea and Vomiting Sertraline HCl (Sertraline Hcl 100 Mg Tablet) 200 mg PO DAILY [facility] Sodium Chloride (0.9 % Sodium Chloride Flush 3 Ml Syringe) 3 ml IVFLUSH QSHIFT [facility] Warfarin Sodium (Warfarin Sodium 2.5 Mg Tablet) 2.5 mg PO .COMPLEX [facility] Zolpidem Tartrate (Zolpidem Tartrate 5 Mg Tablet) 5 mg PO BEDTIME PRN PRN Reason: Insomnia Home Medications Medication Instructions Recorded Confirmed Last Taken Type levothyroxine 25 mcg tablet 25 mcg PO DAILY@0600 09/01/20 06/20/23 06/20/23 History atorvastatin 20 mg tablet 20 mg PO DAILY 04/26/21 06/20/23 06/20/23 History sertraline 100 mg tablet 200 mg PO DAILY 04/26/21 06/20/23 06/20/23 History zolpidem 5 mg tablet 5 mg PO BEDTIME PRN Insomnia 02/18/23 06/20/23 03/25/23 History empagliflozin 10 mg tablet 10 mg PO BEDTIME 03/26/23 06/20/23 06/19/23 History (Jardiance) fluticasone fur. 200 mcg-umeclid 1 ea inhalation DAILY 03/26/23 06/20/23 06/19/23 History 62.5 mcg-vilant 25 mcg inhalat.powder (Trelegy Ellipta) albuterol sulfate 90 mcg/actuation 2 puff inhalation Q4-6H PRN 04/08/23 06/20/23 06/06/23 History aerosol inhaler (Ventolin HFA) breathing warfarin 2.5 mg tablet 7.5 mg PO ANJALITUWNAFISASA 04/12/23 06/20/23 06/18/23 History ferrous sulfate 325 mg (65 mg 325 mg PO DAILY@1600 04/22/23 06/20/23 06/19/23 History iron) tablet warfarin 2.5 mg tablet 10 mg PO FR 06/20/23 06/20/23 Unknown History Physical Exam Vital Signs and Narrative: Vital Signs: Last Vital Signs Temp 98.3 F 06/20/23 15:51 Pulse 66 06/20/23 16:20 Resp 16 06/20/23 16:20 BP 107/45 L 06/20/23 16:20 Pulse Ox 95 06/20/23 16:20 O2 Del Method Nasal Cannula 06/20/23 16:20 O2 Flow Rate 3 06/20/23 16:20 BMI result Body Mass Index 29.4 Const: Other: Constitutional : Awake, interactive, not in distress Neck : Normal inspection, Supple Cardiovascular : irregular irregular, no JVP, no lower extremity edema, PPM site clean with no bleeding Respiratory : good bilateral air entry, no crackles, wheezes or rhonchi Gastrointestinal: soft, lax, Normal bowel sounds, Non tender Skin : Warm, Dry Neurological : Alert & oriented x3, No focal deficit Results Labs 06/21/23 06:13 Assessment and Plan (1) Sinus pause: Status: Acute (2) Subtherapeutic international normalized ratio (INR): Status: Acute Plan A 67 years old lady with PMH of Afib on Warfarin, dCHF, s\p TAVR , MVR, ILD, COPD among others who presents to the hospital for elective placement of PPM for symptomatic pauses. Subtherapeutic INR in metalic AVR Bridge with Lovenox Continue Warfarin follow INR Symptomatic pauses in Afib s\p Pacemaker placement Cardiology to follow Keep on Tele Continue home medications Chronic hypoxemic respiratory failure- no acute hypoxia r/t COPD and ILD,continue supplemental O2 HTN continue home lasix, diltizaem Chronic HFpEF continue lasix, jardiance ? hypothyroidism continue levothyroxine DVT PPx Warfarin Time Spent With Patient Time: Total time managing care of this patient today ____ minutes. Quality Stroke Does the patient have a stroke diagnosis?: No VTE Prior VTE?: No VTE Risk Level:: Medical - moderate - high VTE Device Contraindication: Treatment Not Indicated VTE Drug Contraindication: N/A - Med Ordered
--- NOTE | 2023-06-20 17:39 | PHA.MEDREC ---
Pharmacy Consult ? Medication Reconciliation Pharmacy has reviewed the medication reconciliation completed by nursing. Patient usually on warfarin 7.2 mg daily except 10 mg on one day. Per anticogulation clinic today, patient to resume warfarin tonight if possible 7.5mg today then 10mg tomorrow 7.5mg sat [facility] Saturday . Torrie Gayle, FrankD
[2023-06-20 20:16] LABS: INTERNATIONAL NORM RATIO 1.4 (0.9-1.1); Prothrombin Time 16.8 SEC (11.1-13.3)
--- NOTE | 2023-06-20 23:07 | PC.NURSE ---
patient refused medications Analisa and Clarkbocor states I'm not taking those right now, I'll have to urinate all night, I take those in the morning . Nurse educated the patient on importance of medication compliance, continued to refused x3. notified.
[2023-06-20] MEDS: ceFAZolin Sodium/Dextrose,Iso 2 GM/50 ML PIGGYBACK IV (23:15)
[2023-06-21] MEDS: 0.9 % Sodium Chloride Flush 3 ML SYRINGE IVFLUSH
[2023-06-21] MEDS: Warfarin Sodium 7.5 MG TABLET PO (00:40)
[2023-06-21 04:00] VITALS: BP 112/53; PULSE 63; RESP 20; TEMP 36.5; O2SAT 95
[2023-06-21] MEDS: Levothyroxine Sodium 25 MCG TABLET PO (05:55)
[2023-06-21] MEDS: ceFAZolin Sodium/Dextrose,Iso 2 GM/50 ML PIGGYBACK IV (05:55)
[2023-06-21] MEDS: Enoxaparin Sodium 80 MG/0.8 ML SYRINGE 70 MG SUBCUT (06:00)
[2023-06-21] MEDS: Lactated Ringers 1,000 ML 50 ML IVCONT (06:29)
[2023-06-21 06:39] LABS: INTERNATIONAL NORM RATIO 1.3 (0.9-1.1); Prothrombin Time 15.7 SEC (11.1-13.3)
[2023-06-21 06:40] LABS: Anion Gap 14 (12-20); Blood Urea Nitrogen 14 mg/dL (9-16); Calcium 9.7 mg/dL (8.4-10.2); Carbon Dioxide 26 mmol/L (22-29); Chloride 107 mmol/L (96-108); Creatinine Clr Calc Pharmacy 68.6; Estimated Glomerular Filt Rate > 60; Glucose Random 94 mg/dL (60-115); Potassium 3.7 mmol/L (3.3-5.1); Sodium 143 mmol/L (135-145)
[2023-06-21 07:15] VITALS: BP 130/63; PULSE 63; RESP 17; TEMP 36.3; O2SAT 94
[2023-06-21] MEDS: Sertraline HCL 100 MG TABLET 200 MG PO (07:53)
[2023-06-21] MEDS: Flecainide Acetate 50 MG TABLET 100 MG PO (07:53)
[2023-06-21] MEDS: Folic Acid 1 MG TABLET PO (07:53)
[2023-06-21] MEDS: dilTIAZem HCL CD 120 MG CAP.ER.DEG PO (07:54)
[2023-06-21] MEDS: Acetaminophen 325 MG TABLET 650 MG PO (08:02)
[2023-06-21] MEDS: Fluticasone/Umeclidinium/Vilanterol 200/62.5/25 BLST.W.DEV 1 PUFF INHALE (09:27)
[2023-06-21 09:29] VITALS: PULSE 67; RESP 20; O2SAT 95
--- NOTE | 2023-06-21 09:38 | P.CONCA_ITS ---
History of Present Illness History of Present Illness Date of Service: 06/21/23 Chief complaint: Paroxysmal atrial fibrillation,Conduction disorder Narrative: This is a cardiology consultation as she received a pacemaker yesterday. Patient had a single-chamber pacemaker with atrial lead only. According to clinic note, she had implantable loop monitor and that apparently showed numerou s pauses greater than 5 seconds during sleep hours but she also was using CPAP machine at that time and hence it was decided that she would benefit from a pacemaker. The procedure was completed as today and even fully. No specific concerns. Patient is not reporting any symptoms either. She states she is doing okay. Review of Systems Review of Systems: Yes all other systems are reviewed and are negative Constitutional: Constitutional: Reports as per HPI and Reports no additional constitutional complaints Eyes: Eyes: Reports as per HPI and Denies no additional eye complaints ENT: Denies system reviewed and no additional complaints, except as documented and Reports as per HPI Cardiovascular: Cardiovascular: Reports as per HPI, Reports no additional cardiovascular complaints, Denies acrocyanosis, Denies cool extremities, Denies chest pain, Denies leg edema, Denies lightheadedness, Denies palpitations and Denies dyspnea Respiratory: Respiratory: Reports as per HPI, Denies no additional respiratory complaints and Denies dyspnea Gastrointestinal: Gastrointestinal: Reports as per HPI and Denies no additiona l gastrointestinal complaints Genitourinary: Genitourinary: Reports as per HPI Musculoskeletal: Musculoskeletal: Reports no additional musculoskeletal complaints and Reports as per HPI Integumentary/Breasts: Skin/Breast: Reports system reviewed and no additional complaints, except as docu Neurologic: Reports system reviewed and no additional complaints, except as documented and Reports as per HPI Psychiatric: Psychiatric: Reports no additional psychiatric complaints and Reports as per HPI Endocrine: Endocrine: Reports no additional endocrine complaints, Reports as per HPI and Denies palpitations Hematologic/Lymphatic: Hematologic/Lymphatic: Reports no additional hematologic/lymphatic complaints and Reports as per HPI Allergic/Immunologic: Allergic/Immunologic: Reports no additional allergic/immunologic complaints and Reports as per HPI PMF Past Medical History Medical History (HFpEF) heart failure with preserved ejection fraction Abnormal EKG Acute diastolic CHF (congestive heart failure) Anemia Aortic stenosis Atrial fibrillation with rapid ventricular response Atrial flutter Atrial flutter with rapid ventricular response Bronchitis due to Staphylococcus aureus Cardiac pacemaker COPD (chronic obstructive pulmonary disease) COPD (chronic obstructive pulmonary disease) Current use of anticoagulant therapy Exercise hypoxemia Heart failure History of cardioversion History of transcatheter aortic valve replacement (TAVR) Hypoxia Interstitial lung disease Interstitial lung disease Interstitial lung disease Nocturnal hypoxemia Obesity Paroxysmal atrial fibrillation Persistent atrial fibrillation Pulmonary nodule Functional capacity: independent ambulation Family History Family History Father No problems noted. Mother CVD (cardiovascular disease) Surgical History Surgical History Aortic valve replaced H/O heart surgery History of sleeve gastrectomy (~2017) Hx of section Hx of mitral valve replacement (~2004) Hx of transesophageal echocardiography (SHELIA) for monitoring (~2015) Social History Social History Household Members: Family Housing: House Do you presently have visiting nurse or other home services: Yes Alcohol intake: never Patient Tobacco Use Status: Former Tobacco user Quit Date: 2012 Tobacco use type: Cigarette Years Smoked: 29 Smoked in Last 30 Days: No e-Cigarette/Vaping Use: Never Used Patient Interested in Nicotine Replacement: No Patient Given Instructions on How to Stop Smoking: No Second Hand Smoke Exposure: No Use of substances other than those prescribed or required for medical reasons: No Substance Use Frequency: Chronic Longstanding Currently Displaying Signs/Symptoms of Drug Intoxication Withdrawal: No Any prior treatment program specific to substance use: No Have you been hit, kicked, punched, or otherwise hurt by someone within the past year? If so, by whom?: No Do you feel safe in your current relationship?: Yes Is there a partner from a previous relationship who is making you feel unsafe now?: No Are you made to feel afraid or neglected: No Are you DNR?: No Advance Directives: No Advance Directives Information Provided: Yes Advance Directives Date on File: 08/28/22 Do you have thoughts of harming others: None Do you have a plan to hurt others: No Plan Recently lost weight without trying: Yes How much weight loss: 2-13 pounds Eating poorly because of decreased appetite: No Nutrition screen score: 3 Nutrition Risks: No Nutritional Risk Patient : No : No Poor oral hygiene: No service: No Current occupational status: disabled Meds Allergies Allergy/AdvReac Type Severity Reaction Status Date / Time amiodarone Allergy Intermediate Swelling Verified 06/20/23 12:03 Active Medications: Current Medications Acetaminophen (Acetaminophen 325 Mg Tablet) 650 mg PO Q6H PRN PRN Reason: Pain, Mild (Pain Scale 1-3) Last Admin: 06/21/23 08:02 Dose: 650 mg Albuterol Sulfate (Albuterol Sulfate 90 Mcg 8 Gm Inhaler) 2 puff INHALE Q4H PRN PRN Reason: breathing Atorvastatin Calcium (Atorvastatin Calcium 20 Mg Tablet) 20 mg PO BEDTIME [facility] Diltiazem HCl (Diltiazem Hcl Cd 120 Mg Cap.Er.Deg) 120 mg PO DAILY [facility]; Protocol Last Admin: 06/21/23 07:54 Dose: 120 mg Empagliflozin (Empagliflozin 10 Mg Tablet) 10 mg PO BEDTIME [facility] Last Admin: 06/20/23 23:06 Dose: Not Given Enoxaparin Sodium (Enoxaparin Sodium 80 Mg/0.8 Ml Syringe) 70 mg 1 mg/kg (70 mg) SUBCUT Q12H [facility] Last Admin: 06/21/23 06:00 Dose: 70 mg Flecainide Acetate (Flecainide Acetate 50 Mg Tablet) 100 mg PO BID [facility] Last Admin: 06/21/23 07:53 Dose: 100 mg Fluticasone/Umeclidinium/Vilanterol (Fluticasone/Umeclidinium/Vilanterol 200/62.5/25 Blst.W.Dev) 1 puff INHALE RDAILY [facility] Last Admin: 06/21/23 09:27 Dose: 1 puff Folic Acid (Folic Acid 1 Mg Tablet) 1 mg PO DAILY [facility] Last Admin: 06/21/23 07:53 Dose: 1 mg Furosemide (Furosemide 40 Mg Tablet) 40 mg PO DAILY [facility]; Protocol Last Admin: 06/21/23 07:54 Dose: Not Given Cefazolin Sodium/Dextrose (Ancef) 2 gm in 50 mls @ 100 mls/hr IV Q8H [facility] Stop: 06/21/23 11:00 Last Infusion: 06/21/23 06:27 Dose: Infused Levothyroxine Sodium (Levothyroxine Sodium 25 Mcg Tablet) 25 mcg PO DAILY@0600 [facility] Last Admin: 06/21/23 05:55 Dose: 25 mcg Ondansetron HCl (Ondansetron Hcl 4 Mg/2 Ml Vial) 4 mg IVPUSH Q8H PRN PRN Reason: Nausea and Vomiting Sertraline HCl (Sertraline Hcl 100 Mg Tablet) 200 mg PO DAILY [facility] Last Admin: 06/21/23 07:53 Dose: 200 mg Sodium Chloride (0.9 % Sodium Chloride Flush 3 Ml Syringe) 3 ml IVFLUSH QSHIFT [facility] Last Admin: 06/21/23 07:54 Dose: Not Given Warfarin Sodium (Warfarin Sodium 7.5 Mg Tablet) 7.5 mg PO [id number]@1800 [facility] Last Admin: 06/21/23 00:40 Dose: 7.5 mg Warfarin Sodium (Warfarin Sodium 10 Mg Tablet) 10 mg PO Fr@1800 [facility] Zolpidem Tartrate (Zolpidem Tartrate 5 Mg Tablet) 5 mg PO BEDTIME PRN PRN Reason: Insomnia Home Medications Medication Instructions Recorded Confirmed Last Taken Type levothyroxine 25 mcg tablet 25 mcg PO DAILY@0609/01/20 06/20/23 06/20/23 History atorvastatin 20 mg tablet 20 mg PO DAILY 04/26/21 06/20/23 06/20/23 History sertraline 100 mg tablet 200 mg PO DAILY 04/26/21 06/20/23 06/20/23 History zolpidem 5 mg tablet 5 mg PO BEDTIME PRN Insomnia 02/18/23 06/20/23 03/25/23 History empagliflozin 10 mg tablet 10 mg PO BEDTIME 03/26/23 06/20/23 06/19/23 History (Jardiance) fluticasone fur. 200 mcg-umeclid 1 ea inhalation DAILY 03/26/23 06/20/23 06/19/23 History 62.5 mcg-vilant 25 mcg inhalat.powder (Trelegy Ellipta) albuterol sulfate 90 mcg/actuation 2 puff inhalation Q4-6H PRN 04/08/23 06/20/23 06/06/23 History aerosol inhaler (Ventolin HFA) breathing warfarin 2.5 mg tablet 7.5 mg PO SUMOTUWETHSA 04/12/23 06/20/23 06/18/23 History ferrous sulfate 325 mg (65 mg 325 mg PO DAILY@1600 04/22/23 06/20/23 06/19/23 History iron) tablet warfarin 2.5 mg tablet 10 mg PO FR 06/20/23 06/20/23 Unknown History Physical Exam Vital Signs: Vital Signs: Last Vital Signs Temp 97.4 F 06/21/23 07:15 Pulse 67 06/21/23 09:29 Resp 20 06/21/23 09:29 BP 130/63 06/21/23 07:15 Pulse Ox 94 06/21/23 07:15 O2 Del Method Nasal Cannula 06/21/23 07:15 O2 Flow Rate 4 06/21/23 07:15 BMI result Body Mass Index 29.4 Const: General: comfortable and no acute distress Orientation/con sciousness: patient oriented x3 HEENT: Other: Unremarkable Head: Yes normal to inspection Neck: Neck: Yes normal visual inspection Chest: Other: Pacemaker site looks okay. Chest palpation & inspection: normal inspection of the chest Resp: Auscultation: clear to auscultation bilaterally Cardio: Other: Normal prosthetic heart sounds. Palpation: normal PMI Heart sounds: Murmur heart sound present systolic III/ GI: Palpation (GI): Soft to palpation Back/Spine/Pelvis: Other: unremarkable Skin: General skin exam: no rashes or lesions noted Neuro: General: patient oriented x3 Extrem: General: Yes normal to inspection Psych: Mental Status: mental status grossly normal Objective Labs and Meds 06/21/23 06:13 Lab results: Laboratory Results - last 24 hr 06/20/23 06/21/23 06/21/23 19:54 06:13 06:13 PT 16.8 H 15.7 H INR 1.4 H D 1.3 H Sodium 143 Potassium 3.7 Chloride 107 Carbon Dioxide 26 Anion Gap 14 BUN 14 Creatinine 0.73 Estim Creat Clear Calc 68.6 Estimated GFR > 60 Random Glucose 94 Calcium 9.7 D Assessment and Plan (1) Encounter for interrogation of cardiac pacemaker: Status: Acute (2) PAF (paroxysmal atrial fibrillation): Status: Acute (3) Sinus pause: Status: Acute (4) Hx of mitral valve replacement: Status: Acute (5) Status post transcatheter aortic valve replacement: Status: Acute Plan Extremely complex medical history with numerous comorbidities including paroxysmal atrial fibrillation maintained on diltiazem/flecainide, history of mechanical mitral valve, tricuspid ring, TAVR, chronic heart failure with preserved ejection fraction among others. Due to sinus pause on the implantable loop recorder, she underwent pacemaker placement. This appears to be single-chamber right atrial lead only, possibly due to the tricuspid ring. Will check with EP regarding if this has been interrogated. If so and with normal function then discharge today and we will arrange follow-up in the clinic. With regard to anticoagulation, due to mechanical mitral valve as well as atrial fibrillation and other comorbidities, may use Lovenox for now till she is back in the therapeutic range which is INR 2.5-3.5. Otherwise, x-ray has not yet been reported but pacemaker lead seems to be okay. I do not see any obvious pneumothorax. Chronic lung changes. Await formal read. Discussed with Dr. Crocker. Also message sent to . Time Spent With Patient Time: Total time managing care of this patient today ____ minutes. Procedures Date of Service Date of Service: 06/21/23
--- NOTE | 2023-06-21 11:16 | MHC.CM.PN ---
Addendum entered by Roseann Rodriguez 06/21/23 12:06: Patient discharged to home today. A family member provided transportation home. Original Note: CLEMENTE 06/21/23 S/P PACER INSERTION. She lives with family members. She is independent with all functional mobility. DP home self care family will provide transport home.
[2023-06-21 11:17] VITALS: BP 125/60; PULSE 60; RESP 18; TEMP 36.3; O2SAT 93
--- NOTE | 2023-06-21 11:48 | PM.DS ---
DS: Providers Provider Date of Service: 06/21/23 Primary care physician: Daniela Chopra MD Consults: 06/20/23 16:38 Consult to Cardiology Routine Consulting Provider: [facility] [place] [facility] Reason for consultation: post PPM placement eval and clearance DS: Diagnosis Discharge Diagnosis (1) Sinus pause: Status: Acute (2) Subtherapeutic international normalized ratio (INR): Status: Acute (3) Encounter for interrogation of cardiac pacemaker: Status: Acute (4) Status post placement of cardiac pacemaker: Status: Acute DS: Summary Hospital Course Hospital Course: Admission note HPI A 67 years old lady with PMH of Afib on Warfarin, dCHF, s\p TAVR , ILD, COPD among others who presents to the hospital for elective placement of PPM for symptomatic pauses. The patient feels comfortable after the procedure with no pain, SOB or dyspnea. Noted to have low INR of 1.6. Admitted for observation overnight. Hospital course Pacemaker interrogated in morning as she was evaluated by cardiology team who recommended to discharge home and follow up as outpatient. CXR reviewed by dr Perry who reports good placement. INR of 1.3, to be discharged on bridging Lovenox until INR is therapeutic again. Use Lovenox injections until INR is >2 then can be stopped To follow up with cardiology as outpatient for wound check as scheduled Time Spent with Patient Time attestation: Total time managing care of this patient today ____ minutes. Discharge coordination time: Less than 30 minutes Quality: Safe Use of Opioids Does Pt have an Active Cancer Diagnosis on the Problem List?: No Quality: Stroke Does the patient have a stroke diagnosis?: No Physical Exam Vital Signs: Vital Signs: Last Vital Signs Temp 97.3 F 06/21/23 11:17 Pulse 60 06/21/23 11:17 Resp 18 06/21/23 11:17 BP 125/60 06/21/23 11:17 Pulse Ox 93 06/21/23 11:17 O2 Del Method Nasal Cannula 06/21/23 11:17 O2 Flow Rate 4 06/21/23 11:17 BMI result Body Mass Index 29.4 Const: Other: Constitutional : Awake, interactive, not in distress Neck : Normal inspection, Supple Cardiovascular : irregular irregular, no JVP, no lower extremity edema, PPM site clean with no bleeding Respiratory : good bilateral air entry, no crackles, wheezes or rhonchi Gastrointestinal: soft, lax, Normal bowel sounds, Non tender Skin : Warm, Dry Neurological : Alert & oriented x3, No focal deficit DS: Data Data Completed and Pending Completed studies during hospitalization [Text1]: Procedures Anabaptism of Cardiac Rhythm, Single (12/11/22) Transfusion of Nonautologous Red Blood Cells into Peripheral Vein, Percutaneous Approach (09/27/22) Labs on day of discharge: Laboratory Results - last 24 hr 06/20/23 06/21/23 06/21/23 19:54 06:13 06:13 PT 16.8 H 15.7 H INR 1.4 H D 1.3 H Sodium 143 Potassium 3.7 Chloride 107 Carbon Dioxide 26 Anion Gap 14 BUN 14 Creatinine 0.73 Estim Creat Clear Calc 68.6 Estimated GFR > 60 Random Glucose 94 Calcium 9.7 D Discharge Plan Discharge Patient Disposition: Home, Self-Care Referrals: Daniela Chopra MD [Primary Care Provider] - 1 Week Discharge Medications: New enoxaparin 80 mg/0.8 mL Syringe 70 mg subcut Q12H 3 Days Qty: 4.2 0RF Continued diltiazem HCl 120 mg capsule,extended release 24hr 120 mg PO DAILY Qty: 90 3RF furosemide 40 mg tablet 40 mg PO DAILY Qty: 90 2RF flecainide 100 mg tablet 100 mg PO BID Qty: 180 3RF sertraline 100 mg Tablet 200 mg PO DAILY atorvastatin 20 mg Tablet 20 mg PO DAILY folic acid 1 mg Tablet 1 mg PO DAILY Qty: 90 3RF warfarin 2.5 mg tablet 10 mg PO FR Trelegy Ellipta 200-62.5-25 mcg blister with device 1 ea inhalation DAILY Jardiance 10 mg tablet 10 mg PO BEDTIME levothyroxine 25 mcg tablet 25 mcg PO DAILY@0600 ferrous sulfate 325 mg (65 mg iron) tablet 325 mg PO DAILY@1600 albuterol sulfate [Ventolin HFA] 90 mcg/actuation HFA aerosol inhaler 2 puff inhalation Q4-6H PRN (Reason: breathing) zolpidem 5 mg tablet 5 mg PO BEDTIME PRN (Reason: Insomnia) warfarin 2.5 mg tablet 7.5 mg PO AURELIO Protocol: Dose Management Condition: Saturday (Week One) Dose/Route: 7.5 mg Instruction: 3 x 2.5 mg tablets Condition: Saturday Dose/Route: 10 mg Instruction: 4 x 2.5 mg tablets Condition: Saturday Dose/Route: 7.5 mg Instruction: 3 x 2.5 mg tablets Condition: Saturday Dose/Route: 0 mg Instruction: 0 tablets Condition: Dose/Route: 0 mg Instruction: 0 tablets Condition: Saturday Dose/Route: 10 mg Instruction: 4 x 2.5 mg tablets Condition: Saturday Dose/Route: 7.5 mg Instruction: 3 x 2.5 mg tablets Condition: Saturday (Week Two) Dose/Route: 7.5 mg Instruction: 3 x 2.5 mg tablets Condition: Saturday Dose/Route: 10 mg Instruction: 4 x 2.5 mg tablets Condition: Saturday Dose/Route: 7.5 mg Instruction: 3 x 2.5 mg tablets Condition: Saturday Dose/Route: 7.5 mg Instruction: 3 x 2.5 mg tablets Condition: Dose/Route: 7.5 mg Instruction: 3 x 2.5 mg tablets Condition: Saturday Dose/Route: 7.5 mg Instruction: 3 x 2.5 mg tablets Condition: Saturday Dose/Route: 7.5 mg Instruction: 3 x 2.5 mg tablets Protocol Text: Adjustment Start Date: 06/20/23 INR Value: 1.6 INR Date: 06/20/23 Additional Instructions: RESUME WARFARIN PER MD ORDERS 7.5MG TONIGHT IF ABLE THEN 10MG SATURDAY 7.5MG SAT SUN RECEHCK Saturday06/24/23 - AVOID GREENS POST PROCEDURE X 3 DAYS Discharge Orders: Discharge Order (Routine); Ordered 06/21/23 Ordered By: Marely Crocker Diet: Advance to usual diet Activity on Discharge: As tolerated Activity Restrictions/Additional Instructions: Use Lovenox injections until INR is >2 then can be stopped To follow up with cardiology as outpatient for wound check as scheduled Discharge Date/Time: 06/21/23 14:45
--- NOTE | 2023-06-21 12:10 | HO.POSTANES ---
Post Anesthesia Evaluation Post Anesthesia Evaluation Date of Service: 06/21/23 Vital Signs: Vital Signs Temp Pulse Resp BP Pulse Ox O2 Del Method O2 Flow Rate 06/21/23 11:17 97.3 F 60 18 125/60 93 Nasal Cannula 4 06/21/23 09:29 67 20 06/21/23 07:15 97.4 F 63 17 130/63 94 Nasal Cannula 4 06/21/23 04:00 97.7 F 63 20 112/53 L 95 Nasal Cannula 4 Anesthesia: Monitored Mental Status: Awake Pain Control: Satisfactory Nausea/Vomiting: None Hydration: Adequate Anesthesia-Related Issues: No Anes. Related Issues
--- NOTE | 2023-06-21 14:08 | PC.NURSE ---
pt is being discharged home. medication list was finalized by MD but unable to reveal in the system/system issues. Discharge educations and discharge package given to pt. pt verbalized understanding
== END 2023-06-21 14:45 | disposition home or self-care (01) ==
LOC: HO.SSS 06-20 16:55 → HO.IMC 06-20 17:49 → HO.SSS 06-20 17:50 → HO.IMC 06-20 18:08
PROVIDERS: Internal Medicine Cardiovascular Disease; Nurse Practitioner; PCP Internal Medicine; Visit Provider Student in an Organized Health Care Education/Training Program
PROC: (CPT 33206; principal; 2023-06-20 13:00)
DX: I48.0 Paroxysmal atrial fibrillation (principal); I48.92 Unspecified atrial flutter; I45.5 Other specified heart block; I50.32 Chronic diastolic (congestive) heart failure; R53.83 Other fatigue; R09.02 Hypoxemia; Z95.818 Presence of other cardiac implants and grafts; Z95.5 Presence of coronary angioplasty implant and graft; Z95.2 Presence of prosthetic heart valve; R79.1 Abnormal coagulation profile; J84.9 Interstitial pulmonary disease, unspecified; D64.9 Anemia, unspecified; J44.9 Chronic obstructive pulmonary disease, unspecified; E66.9 Obesity, unspecified; Z68.29 Body mass index [BMI] 29.0-29.9, adult; Z99.89 Dependence on other enabling machines and devices; Z79.01 Long term (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; Z79.51 Long term (current) use of inhaled steroids; Z79.84 Long term (current) use of oral hypoglycemic drugs; Z79.899 Other long term (current) drug therapy; Z87.891 Personal history of nicotine dependence; Z98.84 Bariatric surgery status
CPT/HCPCS: 33206; 36415; 71045; 80048; 85610; 93005; 94640; C1785; C1892; C1898; J0131; J0690; J1650; J2250; J3010; J3370; Q9967

== ENCOUNTER → 2023-06-18 09:14 | Outpatient (BNV) | payer MEDICARE, MEDICAID, SELFPAY | PROVIDERS: PCP Internal Medicine; Visit Provider Student in an Organized Health Care Education/Training Program | DX: R79.1 Abnormal coagulation profile (principal); I45.5 Other specified heart block; Z45.018 Encounter for adjustment and management of other part of cardiac pacemaker | CPT/HCPCS: 99222; 99238 ==

== ENCOUNTER → 2023-06-18 09:14 | Outpatient (BNV) | payer MEDICARE, MEDICAID, SELFPAY | PROVIDERS: PCP Internal Medicine; Visit Provider Internal Medicine | DX: Z45.018 Encounter for adjustment and management of other part of cardiac pacemaker (principal); I48.0 Paroxysmal atrial fibrillation; I45.5 Other specified heart block; Z95.2 Presence of prosthetic heart valve | CPT/HCPCS: 99223 ==

== ENCOUNTER 2023-06-20 10:51 | Outpatient (AMB) | payer MEDICARE, MEDICAID, SELFPAY ==
--- NOTE | 2023-06-20 11:00 | MHC.OFFVISCO ---
Intake Intake Visit Reasons: Anticoagulation Allergies amiodarone Allergy (Intermediate, Verified 06/20/23 10:58) Swelling Medication List - Last Reconciled 06/20/23 by Cynthia Morrissey RN albuterol sulfate 90 mcg/actuation (Ventolin HFA) 2 puffs inhalation Q4-6H PRN atorvastatin 20 mg PO DAILY diltiazem HCl 120 mg PO DAILY empagliflozin (Jardiance) 10 mg PO BEDTIME ferrous sulfate 325 mg PO DAILY@1600 flecainide 100 mg PO BID loichbzzugz-sqmagpjhg-uhlwkujy 200-62.5-25 mcg (Trelegy Ellipta) 1 ea inhalation DAILY folic acid 1 mg PO DAILY furosemide 40 mg PO DAILY levothyroxine 25 mcg PO DAILY@0600 sertraline 200 mg PO DAILY warfarin See Protocol 2.5 mg orally 7.5mg daily; zolpidem 5 mg PO BEDTIME PRN Nursing Note INR: 1.6 in therapeutic range Medications and supplements reviewed She is having a pacemaker placed today stating because her heart was having pauses. She was instructed per cardiology to hold warfarin last night and this am She ate a large serving of greens Denies any signs and symptoms of bleeding or bruising or clotting. Bleeding, bruising, clotting discussed Nutritional guidance given - avoid greens post procedure x 3 days Dose: resume warfarin tonight if possible 7.5mg today then 10mg tomorrow 7.5mg sat sun rechck Saturday F/U INR: 06/24/23 Patient verbalizes understanding of instructions given Msg sent to Dr Lion and Dr Nelson sent result and INR reported to short stay Anti-Coag Initial Assessment Social Hx Patient Tobacco Use Status: Former Tobacco user Quit Date: 2014 Tobacco use type: Cigarette alcohol intake: never Alcohol intake frequency: does not drink Coding Level of Care Code Est Patient Level 1 Diagnoses Current use of anticoagulant therapy Z79.01 Assessment & Plan Assessment & Plan (1) Current use of anticoagulant therapy: Code(s): Z79.01 - [facility] (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 Medications: Discontinued furosemide 40 mg See Protocol PO DAILY 90 tabs 2RF empagliflozin 10 mg PO DAILY 30 tabs 3RF I50.30 - Unspecified diastolic (congestive) heart failure
[2023-06-20 11:06] LABS: Prothrombin Time Whole Bld POC 18.8 sec (11.1-13.5); ~PT, ~INR - Anti Coag Clinic 1.6 (0.9-1.1)
== END 2023-06-20 11:24 | disposition home or self-care (01) ==
LOC: HO.ACS 10:51
PROVIDERS: PCP Internal Medicine; Visit Provider Internal Medicine
DX: Z79.01 Long term (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 (principal)

== ENCOUNTER 2023-06-24 08:32 | Outpatient (AMB) | payer MEDICARE, MEDICAID, SELFPAY ==
--- NOTE | 2023-06-24 08:42 | MHC.OFFVISCO ---
Intake Intake Visit Reasons: Anticoagulation Allergies amiodarone Allergy (Intermediate, Verified 06/24/23 08:38) Swelling Medication List - Last Reconciled 06/24/23 by Fannie Thomason RN albuterol sulfate 90 mcg/actuation (Ventolin HFA) 2 puffs inhalation Q4-6H PRN atorvastatin 20 mg PO DAILY diltiazem HCl 120 mg PO DAILY empagliflozin (Jardiance) 10 mg PO BEDTIME enoxaparin 70 mg (0.7 mL) subcut Q12H 3 days ferrous sulfate 325 mg PO DAILY@1600 flecainide 100 mg PO BID [id number]-wdsobenld-iunnqghc 200-62.5-25 mcg (Trelegy Ellipta) 1 ea inhalation DAILY folic acid 1 mg PO DAILY furosemide 40 mg PO DAILY levothyroxine 25 mcg PO DAILY@0600 sertraline 200 mg PO DAILY warfarin 10 mg PO FR warfarin 7.5 mg See Protocol PO SUMOTUWETHSA zolpidem 5 mg PO BEDTIME PRN Nursing Note INR 2.4-?? out of therapeutic range Medications and supplements reviewed Patient status: pt s/p pacemaker insertion on 06/20/23- dressing dry and intact Medications or supplements: no changes- on lovenox pt states has been taking lovenox daily only- pt educated on purpose of lovenox and risks- enc to take as directed Diet: same Denies any signs and symptoms of bleeding or clotting or unusual bruising Bleeding, bruising, clotting discussed Nutritional guidance given: no greens for 2 days, will eat a red today Dose: 10mg today, then 7.5mg x 6, 10mg x 1 cont lovenox today and tomm pt resumed warfarin on 06/20/23 at usual dosing F/U INR Date : sat06/26/23? Patient verbalizing understanding of instructions given. 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
[2023-06-24 08:43] LABS: Prothrombin Time Whole Bld POC 28.5 sec (11.1-13.5); ~PT, ~INR - Anti Coag Clinic 2.4 (0.9-1.1)
== END 2023-06-24 09:11 | disposition home or self-care (01) ==
LOC: HO.ACS 08:32
PROVIDERS: PCP Internal Medicine; Visit Provider Internal Medicine
DX: Z79.01 Long term (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 (principal)

== ENCOUNTER → 2023-06-24 08:32 | Outpatient (BNVA) | payer MEDICARE, MEDICAID, SELFPAY | PROVIDERS: PCP Internal Medicine; Visit Provider Internal Medicine | DX: Z95.2 Presence of prosthetic heart valve (principal); Z51.81 Encounter for therapeutic drug level monitoring; Z79.01 Long term (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 | CPT/HCPCS: 85610; 99212 ==

== ENCOUNTER 2023-06-26 08:53 | Outpatient (AMB) | payer MEDICARE, MEDICAID, SELFPAY ==
--- NOTE | 2023-06-26 09:07 | MHC.OFFVISCO ---
Intake Intake Visit Reasons: Anticoagulation Allergies amiodarone Allergy (Intermediate, Verified 06/26/23 09:07) Swelling Medication List - Last Reconciled 06/26/23 by Fannie Thomason RN albuterol sulfate 90 mcg/actuation (Ventolin HFA) 2 puffs inhalation Q4-6H PRN atorvastatin 20 mg PO DAILY diltiazem HCl 120 mg PO DAILY empagliflozin (Jardiance) 10 mg PO BEDTIME enoxaparin 70 mg See Protocol subcut Q12H 3 days ferrous sulfate 325 mg PO DAILY@1600 flecainide 100 mg PO BID [id number]-dtrprmjt 200-62.5-25 mcg (Trelegy Ellipta) 1 ea inhalation DAILY folic acid 1 mg PO DAILY furosemide 40 mg PO DAILY levothyroxine 25 mcg PO DAILY@0600 sertraline 200 mg PO DAILY warfarin 10 mg See Protocol PO FR warfarin 7.5 mg See Protocol PO SUMOTUWETHSA zolpidem 5 mg PO BEDTIME PRN Nursing Note INR: 2.9- in therapeutic range Medications and supplements reviewed No changes in health, diet, medications, or supplements, Denies any signs and symptoms of bleeding or bruising or clotting. Bleeding, bruising, clotting discussed Nutritional guidance given Dose: 10mg x 1, 7.5mg x 6 d/c lovenox F/U INR: 1 week Patient verbalizes understanding of instructions given pt with portable oxygen, pacemaker dressing dry and intact Anti-Coag Initial Assessment Social Hx Patient Tobacco Use Status: Former Tobacco user Quit Date: 2012 Tobacco use type: Cigarette alcohol intake: never Alcohol intake frequency: holidays/special occasions only Coding Level of Care Code Est Patient Level 1 Diagnoses Current use of anticoagulant therapy Z79.01 Assessment & Plan Assessment & Plan (1) Current use of anticoagulant therapy: Code(s): 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
[2023-06-26 09:08] LABS: Prothrombin Time Whole Bld POC 35.1 sec (11.1-13.5); ~PT, ~INR - Anti Coag Clinic 2.9 (0.9-1.1)
== END 2023-06-26 09:15 | disposition home or self-care (01) ==
LOC: HO.ACS 08:53
PROVIDERS: PCP Internal Medicine; Visit Provider Internal Medicine
DX: Z79.01 Long term (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 (principal)

== ENCOUNTER → 2023-06-26 08:53 | Outpatient (BNVA) | payer MEDICARE, MEDICAID, SELFPAY | PROVIDERS: PCP Internal Medicine; Visit Provider Internal Medicine | DX: Z95.2 Presence of prosthetic heart valve (principal); Z51.81 Encounter for therapeutic drug level monitoring; Z79.01 Long term (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 | CPT/HCPCS: 85610; 99211 ==

== ENCOUNTER 2023-07-04 08:18 | Outpatient (AMB) | payer MEDICARE, MEDICAID, SELFPAY ==
[2023-07-04 08:27] LABS: Prothrombin Time Whole Bld POC 54.8 sec (11.1-13.5); ~PT, ~INR - Anti Coag Clinic 4.6 (0.9-1.1)
--- NOTE | 2023-07-04 08:35 | MHC.OFFVISCO ---
Intake Intake Visit Reasons: Anticoagulation Allergies amiodarone Allergy (Intermediate, Verified 07/04/23 08:19) Swelling Medication List - Last Reconciled 07/04/23 by My Mata, RN albuterol sulfate 90 mcg/actuation (Ventolin HFA) 2 puffs inhalation Q4-6H PRN atorvastatin 20 mg PO DAILY diltiazem HCl 120 mg PO DAILY empagliflozin (Jardiance) 10 mg PO BEDTIME ferrous sulfate 325 mg PO DAILY@1600 flecainide 100 mg PO BID [id number]-rfaqekvjk-ukzxwifo 200-62.5-25 mcg (Trelegy Ellipta) 1 ea inhalation DAILY folic acid 1 mg PO DAILY furosemide 40 mg PO DAILY levothyroxine 25 mcg PO DAILY@0600 sertraline 200 mg PO DAILY warfarin 10 mg See Protocol PO FR warfarin 7.5 mg See Protocol PO SUMOTUWETHSA zolpidem 5 mg PO BEDTIME PRN Nursing Note Amb to ACS feeling well s/p pacemaker insertion 06/20 Medications and supplements reviewed No changes in health, diet, medications, or supplements Denies any unusual signs and symptoms of bruising, bleeding, noted resolving ecchymotic areas bilat arms and hands from IV attempts sts pt Denies any new Chest pain, SOB, or clotting INR: 4.6 above therapeutic range, sts she really hasn't been eating greens because of the hold for procedure and lovenox, sts has been having more reds also Nutritional guidance given: greens today, sts she will have broccoli and KIWI then balance greens and reds in diet, no spinach Dose: hold warfarin today, decrease dose tomorrow to 5mg (vs 7.5mg) then resume usual dosing;7.5mg x 6 days and 10mg x 1 day F/U INR: Sunday 07/08 Patient verbalizes understanding of instructions given with accurate read back/ teach back of dosing Anti-Coag Initial Assessment Social Hx Patient Tobacco Use Status: Former Tobacco user Quit Date: 2012 Tobacco use type: Cigarette alcohol intake: never Alcohol intake frequency: holidays/special occasions only Coding Level of Care Code Est Patient Level 1 Diagnoses Current use of anticoagulant therapy Z79.01 Time Spent (min) 15 Assessment & Plan Assessment & Plan (1) Current use of anticoagulant therapy: Code(s): 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
== END 2023-07-04 08:46 | disposition home or self-care (01) ==
LOC: HO.ACS 08:18
PROVIDERS: PCP Internal Medicine; Visit Provider Internal Medicine
DX: Z79.01 Long term (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 (principal)

== ENCOUNTER → 2023-07-04 08:18 | Outpatient (BNVA) | payer MEDICARE, MEDICAID, SELFPAY | PROVIDERS: PCP Internal Medicine; Visit Provider Internal Medicine | DX: Z95.2 Presence of prosthetic heart valve (principal); Z79.01 Long term (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; Z51.81 Encounter for therapeutic drug level monitoring | CPT/HCPCS: 85610; 99211 ==

== ENCOUNTER 2023-07-05 08:46 | Outpatient (AMB) | payer MEDICARE, MEDICAID, SELFPAY ==
--- NOTE | 2023-07-05 08:56 | MHC.OFFVIS ---
Intake Vital Signs 07/05/23 08:57 Height 5 ft 2 in Weight 161 lb 13.109 oz BMI 29.6 BP 120/74 Blood Pressure Location Lt brachial Position Sitting Intake Visit Reasons: 2 wk wound ck Intake Note: 2 wk wound ck Strategy Analyst Required: No Allergies amiodarone Allergy (Intermediate, Verified 07/05/23 09:07) Swelling Medication List - Last Reconciled 07/05/23 by Adela Roche JIG BORING MACHINE OPERATOR FOR [employer]-C albuterol sulfate 90 mcg/actuation (Ventolin HFA) 2 puffs inhalation Q4-6H PRN atorvastatin 20 mg PO DAILY diltiazem HCl 120 mg PO DAILY empagliflozin (Jardiance) 10 mg PO BEDTIME ferrous sulfate 325 mg PO DAILY@1600 flecainide 100 mg PO BID [id number]-wntslvzcv-zmqaptbg 200-62.5-25 mcg (Trelegy Ellipta) 1 ea inhalation DAILY folic acid 1 mg PO DAILY furosemide 40 mg PO DAILY levothyroxine 25 mcg PO DAILY@0600 sertraline 200 mg PO DAILY warfarin 10 mg See Protocol PO FR warfarin 7.5 mg See Protocol PO SUMOTUWETHSA zolpidem 5 mg PO BEDTIME PRN HPI 2 wk wound ck HPI Details Nubia is a 67-year-old female with past medical history of interstitial lung disease, COPD, O2 dependent, mechanical mitral valve replacement, tricuspid valve annuloplasty, severe aortic stenosis status post TAVR, paroxysmal atrial fibrillation, heart failure with preserved EF, recent sick sinus syndrome and underwent single-chamber pacemaker placement 07/05/2023 who presents for follow-up. Today she reports she has been feeling generally well since her pacemaker placement. She denies discomfort at the site. No fevers at home. She still has Steri-Strips intact which she has kept dry. No chest discomfort at rest or with activity. No palpitations, dizziness, presyncope, syncope, falls. She does have chronic shortness of breath and is wearing oxygen with nasal cannula. She says her breathing is about the same as usual. [facility] Medical History (Updated 07/05/23 @ 12:54 by Adela Roche, JIG BORING MACHINE OPERATOR FOR [employer]AL-C) Increasing shortness of breath Encounter for interrogation of cardiac pacemaker Subtherapeutic international normalized ratio (INR) Heart failure Cardiac pacemaker Nocturnal hypoxemia Sinus pause History of cardioversion Interstitial lung disease COPD (chronic obstructive pulmonary disease) PAF (paroxysmal atrial fibrillation) Pulmonary nodule Atrial flutter with rapid ventricular response Atrial fibrillation with rapid ventricular response COPD (chronic obstructive pulmonary disease) Exercise hypoxemia Interstitial lung disease Bronchitis due to Staphylococcus aureus History of transcatheter aortic valve replacement (TAVR) Acute diastolic CHF (congestive heart failure) Paroxysmal atrial fibrillation Abnormal EKG Hypoxia Interstitial lung disease Anemia Persistent atrial fibrillation Atrial flutter Obesity (HFpEF) heart failure with preserved ejection fraction Aortic stenosis Current use of anticoagulant therapy Surgical History (Updated 07/05/23 @ 11:26 by Adela Roche NP-C) Status post placement of cardiac pacemaker Aortic valve replaced H/O heart surgery Status post transcatheter aortic valve replacement History of sleeve gastrectomy (~2017) Hx of transesophageal echocardiography (SHELIA) for monitoring (~2015) Hx of mitral valve replacement (~2004) Hx of section Family History Father No problems noted. Mother CVD (cardiovascular disease) Social History Household Members: Family Housing: House Do you presently have visiting nurse or other home services: Yes Alcohol intake: never Patient Tobacco Use Status: Former Tobacco user Quit Date: 2012 Tobacco use type: Cigarette Years Smoked: 29 e-Cigarette/Vaping Use: Never Used Second Hand Smoke Exposure: No Advance Directives Date on File: 08/28/22 service: No Current occupational status: disabled Review of Systems Const All systems reviewed & are unremarkable except as noted in HPI and below ENT Denies dizziness Card Denies chest pain, Denies chest pain at rest, Denies chest pain with activity, Denies rapid heart rate, Denies pedal edema, Denies edema, Denies leg edema, Denies lightheadedness, Denies palpitations, Reports dyspnea, Reports dyspnea on exertion and Reports orthopnea Resp Denies cough, Reports dyspnea and Reports dyspnea on exertion GI Denies hematochezia and Denies change in stool character Musc Denies abnormal gait, Reports limited range of motion, Reports muscle cramps, Denies muscle weakness, Denies numbness, Denies radiating pain into limb, Denies stiffness and Denies tingling Neuro Denies abnormal gait, Denies dizziness, Denies numbness and Denies tingling Endo Denies palpitations Physical Exam Vital Signs: Last Vital Signs BP 120/74 07/05/23 08:57 BMI result Body Mass Index 29.6 Const General: cooperative, healthy appearing, comfortable and no acute distress Orientation/consciousness: patient oriented x3 Neck Neck: Yes normal visual inspection Resp Other: wearing O2 with nasal cannula Effort & Inspection: normal respiratory effort and able to speak in complete sentences Auscultation: clear to auscultation bilaterally, crackles, no rales, no rhonchi and no wheezes Cardio Jugular venous distension: no JVD Rate: regular rate Rhythm: regular rhythm Heart sounds: no murmurs and no rubs Neuro General: patient oriented x3 Extrem General: Yes normal to inspection Psych Appearance: grossly normal Mental Status: mental status grossly normal Speech and movement: Normal speech and movement present Office Procedures Cardiac Device Check Cardiac Device Check Details: Today, done by me, Medtronic single lead pacemaker. battery 14.1 years, RV threshold 0.5 volts at 0.4 milliseconds, pulse amplitude 3.5 volts at 0.4 milliseconds, VVI mode low rate 60, V pace 45.5% of time, brief high V rates noted. [id number] Cardiac Device Check, leadless/single lead pacemaker Procedure code (CPT) selection complete Assessment & Plan Assessment & Plan (1) Visit for wound check: Code(s): Z51.89 - Encounter for other specified aftercare Plan: New single-chamber pacemaker placed 06/20/2023. Arrived today with Steri-Strips fully intact. Gently removed and incision fully approximated with no redness, swelling, drainage. No reported fevers at home. Nontender to palpation around pacemaker area. Site care reviewed. (2) Status post placement of cardiac pacemaker: Comment: Jun 20, 2023. Medtronic single chamber Code(s): Z95.0 - Presence of cardiac pacemaker Plan: Sinus pauses, conversion pauses noted on recent eye ILR interrogations. Sick sinus syndrome. Underwent single-chamber pacemaker placement. Device appears to be functioning normally. V pacing 45.5% of time. Has remote monitoring set up. Will arrange for office interrogation in 1 month to turn down amplitude. (3) Sinus pause: Code(s): I45.5 - Other specified heart block Plan: Cardiac pauses, some of them appear to be post-conversion pauses with underlying paroxysmal atrial fibrillation as seen on ILR interrogations. Fiindings consistent with tachy-oren syndrome as her sleep apnea is currently corrected with CPAP machine. New single chamber pacemaker placed, as above. Since placement, she tells me that she has not noted any changes in the way that she is feeling. (4) PAF (paroxysmal atrial fibrillation): Code(s): I48.0 - Paroxysmal atrial fibrillation Plan: Hx of Paroxysmal atrial fibrillation with overall low burden. Continue with rhythm control approach using current diltiazem and flecainide therapy. Currently on warfarin therapy. Maintain target INR between 2.5 and 3.5. No bleeding issues reported. (5) Status post transcatheter aortic valve replacement: Code(s): Z95.2 - Presence of prosthetic heart valve Plan: Status post transcatheter aortic valve replacement. Last echo 03/27/23 shows EF 60-65%, mild LVH, mod dilated LA, Bio AVR with mean gradient 17mmhg, suggestive of patient prosthesis mismatch, Normally functioning mechanical mitral valve, mod to severe elevated RVSP. Has chronic sob, O2 use. No clinical signs of acute HF on exam. SBE prophylaxis as per ACC/[facility] guidelines. 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 Clinically working well. Continue full oral anticoagulation, currently on warfarin therapy with INR between 2.5 and 3.5. Continue SBE prophylaxis as per ACC/[facility] guidelines. (7) (HFpEF) heart failure with preserved ejection fraction: Code(s): I50.30 - Unspecified diastolic (congestive) heart failure Qualifiers: Heart failure chronicity: chronic Qualified Code(s): I50.32 - Chronic diastolic (congestive) heart failure Plan: Stable at present. No changes to management. Coding Level of Care Code Est Pt Level 4 (82143) Diagnoses Visit for wound check Z51.89 Status post placement of cardiac pacemaker Z95.0 Sinus pause I45.5 PAF (paroxysmal atrial fibrillation) I48.0 Status post transcatheter aortic valve replacement Z95.2 Hx of mitral valve replacement Z95.2 Chronic heart failure with preserved ejection fraction I50.32 Heart failure chronicity: chronic CPT Codes Cardiac Device Check - Cardiac Device 1: [id number] Cardiac Device Check, leadless/single lead pacemaker ([id number]) Time Spent (min) 30 Comment chart review, document, interview, assess
[2023-07-05 08:57] VITALS: BP 120/74; BMI 29.6
== END 2023-07-05 09:35 | disposition home or self-care (01) ==
PROVIDERS: PCP Internal Medicine; Referring Provider Internal Medicine; Visit Provider Nurse Practitioner Family
DX: Z51.89 Encounter for other specified aftercare (principal); I45.5 Other specified heart block; I48.0 Paroxysmal atrial fibrillation; Z95.0 Presence of cardiac pacemaker; Z95.2 Presence of prosthetic heart valve; I50.32 Chronic diastolic (congestive) heart failure
CPT/HCPCS: 93279; 99214

== ENCOUNTER → 2023-07-05 08:46 | Outpatient (BNVA) | payer MEDICARE, MEDICAID, SELFPAY | PROVIDERS: PCP Internal Medicine; Referring Provider Internal Medicine; Visit Provider Nurse Practitioner Family | DX: I45.5 Other specified heart block (principal); I48.0 Paroxysmal atrial fibrillation; I50.32 Chronic diastolic (congestive) heart failure; Z95.2 Presence of prosthetic heart valve; Z79.01 Long term (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; Z79.899 Other long term (current) drug therapy; Z45.018 Encounter for adjustment and management of other part of cardiac pacemaker; Z98.890 Other specified postprocedural states | CPT/HCPCS: 99212 ==

== ENCOUNTER 2023-07-08 08:44 | Outpatient (AMB) | payer MEDICARE, MEDICAID, SELFPAY ==
[2023-07-08 08:59] LABS: Prothrombin Time Whole Bld POC 24.1 sec (11.1-13.5)
--- NOTE | 2023-07-08 09:08 | MHC.OFFVISCO ---
Intake Intake Visit Reasons: Anticoagulation Allergies amiodarone Allergy (Intermediate, Verified 07/08/23 09:01) Swelling Medication List - Last Reconciled 07/08/23 by Cynthia Morrissey RN albuterol sulfate 90 mcg/actuation (Ventolin HFA) 2 puffs inhalation Q4-6H PRN atorvastatin 20 mg PO DAILY diltiazem HCl 120 mg PO DAILY empagliflozin (Jardiance) 10 mg PO BEDTIME ferrous sulfate 325 mg PO DAILY@1600 flecainide 100 mg PO BID xmllpsbewoj-haccdxebu-wdubdxmu 200-62.5-25 mcg (Trelegy Ellipta) 1 ea inhalation DAILY folic acid 1 mg PO DAILY furosemide 40 mg PO DAILY levothyroxine 25 mcg PO DAILY@0600 sertraline 200 mg PO DAILY warfarin 10 mg See Protocol PO FR warfarin 7.5 mg See Protocol PO SUMOTUWETHSA zolpidem 5 mg PO BEDTIME PRN Nursing Note INR 2.0 out of therapeutic range 2.5-3.5 Medications and supplements reviewed Patient status: 1 1/2 WEEKS POST PACEMAKER - SITE HEALING WELL EDGES ALL APPROXIMATED Medications or supplements: NO CHANGES Diet: GOOD, HAD GREENS WITH PREVIOUS ELEVATED INR Denies any signs and symptoms of bleeding or clotting or unusual bruising Bleeding, bruising, clotting discussed Nutritional guidance given: AVOID GREENS X4 DAYS, EAT REDS TODAY, Dose: 10MG TODAY, 7.5MG X 6 DAYS LOVENOX THIS AM PER MD ORDERS F/U INR Date: 1 WEEK PER PT REQUEST ?? Patient verbalizing understanding of instructions given. 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
== END 2023-07-08 09:16 | disposition home or self-care (01) ==
LOC: HO.ACS 08:44
PROVIDERS: PCP Internal Medicine; Visit Provider Internal Medicine
DX: Z79.01 Long term (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 (principal)

== ENCOUNTER → 2023-07-08 08:44 | Outpatient (BNVA) | payer MEDICARE, MEDICAID, SELFPAY | PROVIDERS: PCP Internal Medicine; Visit Provider Internal Medicine | DX: Z95.2 Presence of prosthetic heart valve (principal); Z79.01 Long term (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; Z51.81 Encounter for therapeutic drug level monitoring | CPT/HCPCS: 85610; 99211 ==

== ENCOUNTER → 2023-07-12 23:59 | Outpatient (BNV) | payer MEDICARE, MEDICAID, SELFPAY ==
--- NOTE | 2023-07-22 10:57 | MHC.OFFVIS ---
Intake Intake Visit Reasons: Remote ILR Check- Medtronic Allergies amiodarone Allergy (Intermediate, Verified 07/22/23 08:30) Swelling [facility] Medical History (Updated 07/09/23 @ 11:31 by [employer] [place]) Increasing shortness of breath Encounter for interrogation of cardiac pacemaker Subtherapeutic international normalized ratio (INR) Heart failure Cardiac pacemaker Nocturnal hypoxemia Sinus pause History of cardioversion Interstitial lung disease COPD (chronic obstructive pulmonary disease) PAF (paroxysmal atrial fibrillation) Pulmonary nodule Atrial flutter with rapid ventricular response Atrial fibrillation with rapid ventricular response COPD (chronic obstructive pulmonary disease) Exercise hypoxemia Interstitial lung disease Bronchitis due to Staphylococcus aureus History of transcatheter aortic valve replacement (TAVR) Acute diastolic CHF (congestive heart failure) Paroxysmal atrial fibrillation Abnormal EKG Hypoxia Interstitial lung disease Anemia Persistent atrial fibrillation Atrial flutter Obesity (HFpEF) heart failure with preserved ejection fraction Aortic stenosis Current use of anticoagulant therapy Surgical History (Updated 07/05/23 @ 11:26 by Adela Roche, HIGH FREQUENCY MILL OPERATOR-C) Status post placement of cardiac pacemaker Aortic valve replaced H/O heart surgery Status post transcatheter aortic valve replacement History of sleeve gastrectomy (~2017) Hx of transesophageal echocardiography (SHELIA) for monitoring (~2015) Hx of mitral valve replacement (~2004) Hx of section Family History Father No problems noted. Mother CVD (cardiovascular disease) Social History Household Members: Family Housing: House Do you presently have visiting nurse or other home services: Yes Alcohol intake: never Patient Tobacco Use Status: Former Tobacco user Quit Date: 2012 Tobacco use type: Cigarette Years Smoked: 29 e-Cigarette/Vaping Use: Never Used Second Hand Smoke Exposure: No Advance Directives Date on File: 08/28/22 service: No Current occupational status: disabled Office Procedures Cardiac Device Check Cardiac Device Check Details: Remote implantable loop recorder report noted on 07/18/2023. No pauses noted since her pacemaker implant on 06/20/2023. Recurrent episodes of atrial fibrillation noted. Battery life is adequate [id number] Cardiac Interrogation, subcut cardiac rhythm monitor Procedure code (CPT) selection complete Coding Level of Care Code Procedure Only CPT Codes Cardiac Device Check - Cardiac Device 16: [id number] Cardiac Interrogation, subcut cardiac rhythm monitor ([id number])
== END ==
PROVIDERS: PCP Internal Medicine; Visit Provider Internal Medicine Cardiovascular Disease
DX: I49.5 Sick sinus syndrome (principal)
CPT/HCPCS: 93298

== ENCOUNTER 2023-07-15 08:36 | Outpatient (AMB) | payer MEDICARE, MEDICAID, SELFPAY ==
--- NOTE | 2023-07-15 08:48 | MHC.OFFVISCO ---
Intake Intake Visit Reasons: Anticoagulation Allergies amiodarone Allergy (Intermediate, Verified 07/15/23 08:39) Swelling Medication List - Last Reconciled 07/15/23 by My Mata RN albuterol sulfate 90 mcg/actuation (Ventolin HFA) 2 puffs inhalation Q4-6H PRN atorvastatin 20 mg PO DAILY diltiazem HCl 120 mg PO DAILY empagliflozin (Jardiance) 10 mg PO BEDTIME ferrous sulfate 325 mg PO DAILY@1600 flecainide 100 mg PO BID nvjtrmtiest-xbfhqbwrc-lhavkuod 200-62.5-25 mcg (Trelegy Ellipta) 1 ea inhalation DAILY folic acid 1 mg PO DAILY furosemide 40 mg PO DAILY levothyroxine 25 mcg PO DAILY@0600 sertraline 200 mg PO DAILY warfarin 10 mg See Protocol PO FR warfarin 7.5 mg See Protocol PO SUMOTUWETHSA zolpidem 5 mg PO BEDTIME PRN Nursing Note Amb to [facility] using cont O2, st feeling well, looking forward to [place] trip coming up 07/27 sts breathing is same not getting any better Medications and supplements reviewed No changes in health, diet, medications, or supplements Denies any unusual signs and symptoms of bruising, bleeding Denies any new Chest pain, SOB, or clotting INR: 3.1 in therapeutic range (2.5-3.5) Nutritional guidance given: balance greens and reds in diet, be consistent Dose: continue usual dosing; 10mg x 1 day and 7.5mg x 6 days F/U INR:pt request 1 week so if any issues can be seen before she departs for [place] Patient verbalizes understanding of instructions given with accurate read back/ teach back of dosing Anti-Coag Initial Assessment Social Hx Patient Tobacco Use Status: Former Tobacco user Quit Date: 2012 Tobacco use type: Cigarette alcohol intake: never Alcohol intake frequency: holidays/special occasions only Coding Level of Care Code Est Patient Level 1 Diagnoses Current use of anticoagulant therapy Z79.01 Time Spent (min) 15 Results AMB INR Fingerstick AMB INR Fingerstick 3.1 Last Edit by My Mata RN on 07/15/23 08:46 interface failure Assessment & Plan Assessment & Plan (1) Current use of anticoagulant therapy: Code(s): Z79.01 - senior care (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
[2023-07-15 08:54] LABS: ~PT, ~INR - Anti Coag Clinic 3.1 (0.9-1.1)
== END 2023-07-15 08:58 | disposition home or self-care (01) ==
LOC: HO.ACS 08:36
PROVIDERS: PCP Internal Medicine; Visit Provider Internal Medicine
DX: Z79.01 Long term (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 (principal)

== ENCOUNTER → 2023-07-15 08:36 | Outpatient (BNVA) | payer MEDICARE, MEDICAID, SELFPAY | PROVIDERS: PCP Internal Medicine; Visit Provider Internal Medicine | DX: Z95.2 Presence of prosthetic heart valve (principal); Z79.01 Long term (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; Z51.81 Encounter for therapeutic drug level monitoring | CPT/HCPCS: 85610; 99211 ==

== ENCOUNTER 2023-07-22 08:19 | Outpatient (AMB) | payer MEDICARE, MEDICAID, SELFPAY ==
[2023-07-22 08:28] LABS: Prothrombin Time Whole Bld POC 37.7 sec (11.1-13.5); ~PT, ~INR - Anti Coag Clinic 3.1 (0.9-1.1)
--- NOTE | 2023-07-22 08:31 | MHC.OFFVISCO ---
Intake Intake Visit Reasons: Anticoagulation Allergies amiodarone Allergy (Intermediate, Verified 07/22/23 08:30) Swelling Medication List - Last Reconciled 07/22/23 by Cynthia Morrissey RN albuterol sulfate 90 mcg/actuation (Ventolin HFA) 2 puffs inhalation Q4-6H PRN atorvastatin 20 mg PO DAILY diltiazem HCl 120 mg PO DAILY empagliflozin (Jardiance) 10 mg PO DAILY ferrous sulfate 325 mg PO DAILY@1600 flecainide 100 mg PO BID hqfjvfvrkko-qtlvaioax-kxrqvvqm 200-62.5-25 mcg (Trelegy Ellipta) 1 ea inhalation DAILY folic acid 1 mg PO DAILY furosemide 40 mg PO DAILY levothyroxine 25 mcg PO DAILY@0600 sertraline 200 mg PO DAILY warfarin 10 mg See Protocol PO FR warfarin 7.5 mg See Protocol PO SUMOTUWETHSA zolpidem 5 mg PO BEDTIME PRN Nursing Note INR: 3.1 in therapeutic range Medications and supplements reviewed No changes in health, diet, medications, or supplements, Denies any signs and symptoms of bleeding or bruising or clotting. Bleeding, bruising, clotting discussed Nutritional guidance given Dose: KEEP SAME 10MG X 1 DAY/ 7.5MG X 6 DAYS F/U INR: 07/25/23 PER PT REQUEST BEFORE SHE LEAVES FOR [place] Patient verbalizes understanding of instructions given Anti-Coag Initial Assessment Social Hx Patient Tobacco Use Status: Former Tobacco user Quit Date: 2012 Tobacco use type: Cigarette alcohol intake: never Alcohol intake frequency: holidays/special occasions only Coding Level of Care Code Est Patient Level 1 Diagnoses Current use of anticoagulant therapy Z79.01 Assessment & Plan Assessment & Plan (1) Current use of anticoagulant therapy: Code(s): 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
== END 2023-07-22 08:34 | disposition home or self-care (01) ==
LOC: HO.ACS 08:19
PROVIDERS: PCP Internal Medicine; Visit Provider Internal Medicine
DX: Z79.01 Long term (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 (principal)

== ENCOUNTER → 2023-07-22 08:19 | Outpatient (BNVA) | payer MEDICARE, MEDICAID, SELFPAY | PROVIDERS: PCP Internal Medicine; Visit Provider Internal Medicine | DX: Z95.2 Presence of prosthetic heart valve (principal); Z79.01 Long term (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; Z51.81 Encounter for therapeutic drug level monitoring | CPT/HCPCS: 85610; 99211 ==

== ENCOUNTER 2023-07-25 15:00 | Outpatient (AMB) | payer MEDICARE, MEDICAID, SELFPAY ==
[2023-07-25 15:07] LABS: Prothrombin Time Whole Bld POC 23.8 sec (11.1-13.5)
--- NOTE | 2023-07-25 15:12 | MHC.OFFVISCO ---
Intake Intake Visit Reasons: Anticoagulation Allergies amiodarone Allergy (Intermediate, Verified 07/25/23 15:01) Swelling Medication List - Last Reconciled 07/25/23 by My Mata RN albuterol sulfate 90 mcg/actuation (Ventolin HFA) 2 puffs inhalation Q4-6H PRN atorvastatin 20 mg PO DAILY diltiazem HCl 120 mg PO DAILY empagliflozin (Jardiance) 10 mg PO DAILY ferrous sulfate 325 mg PO DAILY@1600 flecainide 100 mg PO BID lgnpkbdnwmy-eqitytnqp-kxbudves 200-62.5-25 mcg (Trelegy Ellipta) 1 ea inhalation DAILY folic acid 1 mg PO DAILY furosemide 40 mg PO DAILY levothyroxine 25 mcg PO DAILY@0600 sertraline 200 mg PO DAILY warfarin 10 mg See Protocol PO FR warfarin 7.5 mg See Protocol PO SUMOTUWETHSA zolpidem 5 mg PO BEDTIME PRN Nursing Note Amb to [facility] tired sts she has had cold sxs all week, sts testing negative for covid, is going to [place] this weekend Medications and supplements reviewed, taking a cold/cough medicine, (can raise) occassional menthol cough drop (can lower) No other changes in health, diet, medications, or supplements Denies any unusual signs and symptoms of bruising, bleeding Denies any new Chest pain, SOB, or clotting INR: 2.0 out of therapeutic range (2.5-3.5), pt sts she is not sure she took her dose on Saturday but not sure Nutritional guidance given: no greens x 2 days, reds to raise then balance greens and reds in diet Dose: increase dose today to 10mg then continue usual dosing; 10mg x 1 day and 7.5mg x 6 days. Pt encouraged to follow dosing while on vacation and try not to miss any doses F/U INR: after return from [place] 08/12 Patient verbalizes understanding of instructions given with accurate read back/ teach back of dosing Anti-Coag Initial Assessment Social Hx Patient Tobacco Use Status: Former Tobacco user Quit Date: 2012 Tobacco use type: Cigarette alcohol intake: never Alcohol intake frequency: holidays/special occasions only Coding Level of Care Code Est Patient Level 1 Diagnoses Current use of anticoagulant therapy Z79.01 Time Spent (min) 15 Assessment & Plan Assessment & Plan (1) Current use of anticoagulant therapy: Code(s): Z79.01 - jail (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
== END 2023-07-25 15:40 | disposition home or self-care (01) ==
LOC: HO.ACS 15:00
PROVIDERS: PCP Internal Medicine; Visit Provider Internal Medicine
DX: Z79.01 Long term (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 (principal)

== ENCOUNTER → 2023-07-25 15:00 | Outpatient (BNVA) | payer MEDICARE, MEDICAID, SELFPAY | PROVIDERS: PCP Internal Medicine; Visit Provider Internal Medicine | DX: Z45.018 Encounter for adjustment and management of other part of cardiac pacemaker (principal); I50.32 Chronic diastolic (congestive) heart failure; I48.0 Paroxysmal atrial fibrillation; Z95.2 Presence of prosthetic heart valve; Z79.01 Long term (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; Z51.81 Encounter for therapeutic drug level monitoring | CPT/HCPCS: 85610; 99211; 99212 ==

== ENCOUNTER 2023-07-25 15:23 | Outpatient (AMB) | payer MEDICARE, MEDICAID, SELFPAY ==
[2023-07-25 15:34] VITALS: BP 110/70; PULSE 68; BMI 29.4
--- NOTE | 2023-07-25 15:34 | A.OFFVIS_ITS ---
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 Allergies amiodarone Allergy (Intermediate, Verified 07/25/23 15:01) Swelling Medication List - Last Reconciled 07/25/23 by Luis Antonio Nelson MD albuterol sulfate 90 mcg/actuation (Ventolin HFA) 2 puffs inhalation Q4-6H PRN atorvastatin 20 mg PO DAILY diltiazem HCl 120 mg PO DAILY empagliflozin (Jardiance) 10 mg PO DAILY ferrous sulfate 325 mg PO DAILY@1600 flecainide 100 mg PO BID xjiqlqccxaf-zzggxgdxk-pwhitzik 200-62.5-25 mcg (Trelegy Ellipta) 1 ea inhalation DAILY folic acid 1 mg PO DAILY furosemide 40 mg PO DAILY levothyroxine 25 mcg PO DAILY@0600 sertraline 200 mg PO DAILY warfarin 10 mg See Protocol PO FR warfarin 7.5 mg See Protocol PO SUMOTUWETHSA zolpidem 5 mg PO BEDTIME PRN HPI HPI Comments History of Present Illness Details Nubia comes for follow-up. Recently she was scheduled for dual-chamber pacemaker although the RV lead could not be placed and it is only atrial lead in place with device program as AAI although determine a large in the pacemaker says VVI as that is the only terminology available on single-chamber pacers. Patient also has implantable loop recorder in place. On remote monitoring there has been no pauses noted consistent with normal AV conduction. There are multiple high atrial rate episodes noted. Patient denies any palpitation. Denies any heart failure symptoms. Denies any lightheadedness, syncope. [facility] Medical History (Updated 07/25/23 @ 16:08 by Luis Antonio Nelson MD) PAF (paroxysmal atrial fibrillation) Increasing shortness of breath Encounter for interrogation of cardiac pacemaker Subtherapeutic international normalized ratio (INR) Heart failure Cardiac pacemaker Nocturnal hypoxemia Sinus pause History of cardioversion Interstitial lung disease COPD (chronic obstructive pulmonary disease) Pulmonary nodule Atrial flutter with rapid ventricular response Atrial fibrillation with rapid ventricular response COPD (chronic obstructive pulmonary disease) Exercise hypoxemia Interstitial lung disease Bronchitis due to Staphylococcus aureus History of transcatheter aortic valve replacement (TAVR) Acute diastolic CHF (congestive heart failure) Paroxysmal atrial fibrillation Abnormal EKG Hypoxia Interstitial lung disease Anemia Persistent atrial fibrillation Atrial flutter Obesity (HFpEF) heart failure with preserved ejection fraction Aortic stenosis Current use of anticoagulant therapy Surgical History (Updated 07/25/23 @ 16:08 by Luis Antonio Nelson MD) Status post transcatheter aortic valve replacement Hx of mitral valve replacement (~2004) Status post placement of cardiac pacemaker H/O heart surgery History of sleeve gastrectomy (~2017) Hx of transesophageal echocardiography (SHELIA) for monitoring (~2015) Hx of section Family History Father No problems noted. Mother CVD (cardiovascular disease) Social History Household Members: Family Housing: House Do you presently have visiting nurse or other home services: Yes Alcohol intake: never Patient Tobacco Use Status: Former Tobacco user Quit Date: 2012 Tobacco use type: Cigarette Years Smoked: 29 e-Cigarette/Vaping Use: Never Used Second Hand Smoke Exposure: No Advance Directives Date on File: 08/28/22 service: No Current occupational status: disabled Review of Systems Const Denies chills, Denies fatigue, Denies fever(s), Denies frequent falls, Denies weakness, Denies weight gain and Denies weight loss ENT Denies dizziness Card Denies chest pain, Denies leg edema, Denies lightheadedness, Denies palpitat ions, Denies dyspnea, Denies dyspnea on exertion, Denies orthopnea and Denies other (loss of consciousness) Resp Denies cough, Denies dyspnea and Denies dyspnea on exertion GI Denies hematochezia and Denies change in stool character Musc Denies abnormal gait, Denies muscle weakness, Denies numbness, Denies radiating pain into limb and Denies tingling Neuro Denies abnormal gait, Denies dizziness, Denies frequent falls, Denies numbness, Denies tingling and Denies weakness Endo Denies fatigue and Denies palpitations Physical Exam Vital Signs: Last Vital Signs Pulse 68 07/25/23 15:34 BP 110/70 07/25/23 15:34 BMI result Body Mass Index 29.4 Const General: cooperative, comfortable, no acute distress, alert, awake, Physically active and well groomed Nutritional Appearance: overweight Orientation/consciousness: patient oriented x3 Limitations: no limitations Neck Neck: Yes trachea midline, Yes supple and Yes JVD Resp Effort & Inspection: normal respiratory effort Auscultation: crackles (coarse) bilateral at the base, no rales, wheezes and diminished lung sounds Cardio Jugular venous distension: no JVD Palpation: normal PMI Rate: regular rate Rhythm: regular rhythm Heart sounds: S2 normal heart sound present, Murmur heart sound present systolic early and Other heart sounds present (Stanislaus opening and closing click of Saint Alex mitral valve) GI Inspection: Yes distended Auscultation: normal bowel sounds Skin General skin exam: no rashes or lesions noted Neuro General: patient oriented x3 and no focal motor deficits Extrem General: Yes no clubbing, cyanosis or edema Office Procedures Cardiac Device Check Cardiac Device Check Details: Single-chamber Medtronic pacemaker in place with the lead in the right atrium. Programmed in AAI at 60 beats per minute, reprogrammed to 50 beats per minute. Atrial sensing was at 2.6 mV. Multiple high rate episodes noted consistent with short runs of SVTs and or atrial fibrillation. Atrial pacing 47% of the time. Pacing lead impedance is stable. Atrial pacing thresholds are excellent and reprogrammed to enhance battery life. Battery life is excellent at 16 years [id number] Cardiac Device Check, leadless/single lead pacemaker Procedure code (CPT) selection complete Assessment & Plan Assessment & Plan (1) Status post placement of cardiac pacemaker: Comment: Jun 20, 2023. Medtronic single chamber Code(s): Z95.0 - Presence of cardiac pacemaker Plan: Patient with highly unusual pacemaker with single-chamber atrial lead pacemaker. She has no evidence of AV mukul block and pacemaker was implanted for sinus pause and sick sinus syndrome. Will continue to monitor by implantable loop recorder for pauses that may suggest AV block. Otherwise pacemaker is working well. Reprogrammed for adequate function. Will follow remotely in 3 months time and in the clinic in 6 months time. (2) (HFpEF) heart failure with preserved ejection fraction: Code(s): I50.30 - Unspecified diastolic (congestive) heart failure Qualifiers: Heart failure chronicity: chronic Qualified Code(s): I50.32 - Chronic diastolic (congestive) heart failure Plan: Heart failure preserved ejection fraction with chronic respiratory failure requiring oxygen supplementation. Clinically euvolemic and well compensated on current diuretic dose. Continue the same. Daily weight monitoring avoidance of salt loading was discussed continue aggressively rhythm control approach which has helped her significantly. Continue oxygen supplementation P encouraged to continue to participate in physical activity as tolerated. (3) PAF (paroxysmal atrial fibrillation): Code(s): I48.0 - Paroxysmal atrial fibrillation Plan: Paroxysmal atrial fibrillation which has been difficult to treat patient continues to episodes of atrial fibrillation despite antiarrhythmic drug therapy. Continue however flecainide therapy to maintain rhythm as much as possible along with concomitant Cardizem therapy. Currently on full oral anticoagulation warfarin. This is being followed by [facility]. Maintain target INR between 2.5 and 3.5. (4) Status post transcatheter aortic valve replacement: Code(s): Z95.2 - Presence of prosthetic heart valve Plan: Status post transcatheter aortic valve replacement for severe aortic stenosis. Clinically much improved since then. No evidence of heart failure. Continue SBE prophylaxis as per ACC/aha guidelines. Continue aggressive risk factor modification. Will monitor annually by echocardiogram. 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 Valve seems to be working clinically well. Currently on warfarin therapy. Target INR between 2.5 and 3.5 being followed by [facility]. Continue SBE prophylaxis as per ACC/aha guidelines. Follow up in the clinic in 6 months time, sooner p.r.n.. Thank you for allowing me to partake in her care Coding Level of Care Code Est Pt Level 4 (44459) Diagnoses Status post placement of cardiac pacemaker Z95.0 Chronic heart failure with preserved ejection fraction I50.32 Heart failure chronicity: chronic PAF (paroxysmal atrial fibrillation) I48.0 Status post transcatheter aortic valve replacement Z95.2 Hx of mitral valve replacement Z95.2 CPT Codes Cardiac Device Check - Cardiac Device 1: [id number] Cardiac Device Check, leadless/single lead pacemaker ([id number])
== END 2023-07-25 16:18 | disposition home or self-care (01) ==
PROVIDERS: PCP Internal Medicine; Visit Provider Internal Medicine Cardiovascular Disease
DX: I50.32 Chronic diastolic (congestive) heart failure (principal); I48.0 Paroxysmal atrial fibrillation; Z95.0 Presence of cardiac pacemaker; Z95.2 Presence of prosthetic heart valve
CPT/HCPCS: 93279; 99214

== ENCOUNTER 2023-08-12 08:02 | Outpatient (AMB) | payer MEDICARE, MEDICAID, SELFPAY ==
--- NOTE | 2023-08-12 08:10 | MHC.OFFVISCO ---
Intake Intake Visit Reasons: Anticoagulation Allergies amiodarone Allergy (Intermediate, Verified 08/12/23 08:06) Swelling Medication List - Last Reconciled 08/12/23 by Fannie Thomason RN albuterol sulfate 90 mcg/actuation (Ventolin HFA) 2 puffs inhalation Q4-6H PRN atorvastatin 20 mg PO DAILY diltiazem HCl 120 mg PO DAILY empagliflozin (Jardiance) 10 mg PO DAILY ferrous sulfate 325 mg PO DAILY@1600 flecainide 100 mg PO BID wbnmygtfuci-rvdymmght-puejliut 200-62.5-25 mcg (Trelegy Ellipta) 1 ea inhalation DAILY folic acid 1 mg PO DAILY furosemide 40 mg PO DAILY levothyroxine 25 mcg PO DAILY@0600 sertraline 200 mg PO DAILY warfarin 10 mg See Protocol PO FR warfarin 7.5 mg See Protocol PO SUMOTUWETHSA zolpidem 5 mg PO BEDTIME PRN Nursing Note INR 2.1-?? out of therapeutic range- denies missed dose Medications and supplements reviewed Patient status: pt returned from traveling Medications or supplements: no changes Diet: good, has been eating milk leonard and greens Denies any signs and symptoms of bleeding or clotting or unusual bruising Bleeding, bruising, clotting discussed Nutritional guidance given: no greens for 3 days, eat reds to raise Dose: 12.5mg today, then 7.5mg x 6, 10mg x 1 F/U INR Date : 1 week? Patient verbalizing understanding of instructions given. 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
[2023-08-12 08:12] LABS: Prothrombin Time Whole Bld POC 24.7 sec (11.1-13.5); ~PT, ~INR - Anti Coag Clinic 2.1 (0.9-1.1)
== END 2023-08-12 08:20 | disposition home or self-care (01) ==
LOC: HO.ACS 08:02
PROVIDERS: PCP Internal Medicine; Visit Provider Internal Medicine
DX: Z79.01 Long term (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 (principal)

== ENCOUNTER → 2023-08-12 08:02 | Outpatient (BNVA) | payer MEDICARE, MEDICAID, SELFPAY | PROVIDERS: PCP Internal Medicine; Visit Provider Internal Medicine | DX: Z95.2 Presence of prosthetic heart valve (principal); Z79.01 Long term (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; Z51.81 Encounter for therapeutic drug level monitoring | CPT/HCPCS: 85610; 99211 ==

== ENCOUNTER 2023-08-15 09:16 | Outpatient (REF) | payer SELFPAY | END 2023-08-15 09:17 | disposition home or self-care (01) | LOC: HO.HAP 09:16 | PROVIDERS: Visit Provider Internal Medicine | DX: Z46.1 Encounter for fitting and adjustment of hearing aid (principal); H90.3 Sensorineural hearing loss, bilateral | CPT/HCPCS: V5267 ==

== ENCOUNTER 2023-08-15 09:25 | Outpatient (AMB) | payer MEDICARE, MEDICAID, SELFPAY ==
--- NOTE | 2023-08-15 09:38 | A.OFFVIS_ITS ---
Intake Vital Signs 08/15/23 09:40 Weight 166 lb 7.184 oz BP 128/62 Blood Pressure Location Lt brachial Position Sitting Pulse 70 Pulse Source Pulse Oximeter Pulse Oximetry (%) 94 Oxygen Delivery Method Nasal Cannula Oxygen Flow Rate 2 Intake Visit Reasons: hugh Allergies amiodarone Allergy (Intermediate, Verified 08/15/23 09:54) Swelling Medication List - Last Reconciled 08/15/23 by Mary Ellen Brumfield MD albuterol sulfate 90 mcg/actuation (Ventolin HFA) 2 puffs inhalation Q4-6H PRN atorvastatin 20 mg PO DAILY diltiazem HCl 120 mg PO DAILY empagliflozin (Jardiance) 10 mg PO DAILY ferrous sulfate 325 mg PO DAILY@1600 flecainide 100 mg PO BID rskrlihisdl-mgltqyudp-edocglcd 200-62.5-25 mcg (Trelegy Ellipta) 1 ea inhalation DAILY folic acid 1 mg PO DAILY furosemide 40 mg PO DAILY levothyroxine 25 mcg PO DAILY@0600 sertraline 200 mg PO DAILY warfarin 10 mg See Protocol PO FR warfarin 7.5 mg See Protocol PO SUMOTUWETHSA zolpidem 5 mg PO BEDTIME PRN Do you need a note to return to daycare/school/sports/work: No HPI hugh HPI Details This 67 years old female is here for follow-up for her COPD and respiratory failure. She is in a very [place] mood, feeling very good and raises the CPAP as well as POC for oxygen. She also has had cardiac pacemaker. She gives credit to all these new interventions for feeling so good . She has traveled to [place] of and stayed there for a few weeks and now planning to go again for a few weeks. Sleeps very good. Has no daytime sleepiness. She can walk around without getting short of breath. [facility] Medical History (Updated 08/15/23 @ 10:02 by Mary Ellen Brumfield MD) PAF (paroxysmal atrial fibrillation) Increasing shortness of breath Encounter for interrogation of cardiac pacemaker Subtherapeutic international normalized ratio (INR) Heart failure Cardiac pacemaker Nocturnal hypoxemia (~08/15/23) Sinus pause History of cardioversion Interstitial lung disease COPD (chronic obstructive pulmonary disease) Pulmonary nodule Atrial flutter with rapid ventricular response Atrial fibrillation with rapid ventricular response COPD (chronic obstructive pulmonary disease) Exercise hypoxemia Interstitial lung disease Bronchitis due to Staphylococcus aureus History of transcatheter aortic valve replacement (TAVR) Acute diastolic CHF (congestive heart failure) Paroxysmal atrial fibrillation Abnormal EKG Hypoxia Interstitial lung disease Anemia Persistent atrial fibrillation Atrial flutter Obesity (HFpEF) heart failure with preserved ejection fraction Aortic stenosis Current use of anticoagulant therapy Surgical History Status post transcatheter aortic valve replacement Hx of mitral valve replacement (~2004) Status post placement of cardiac pacemaker H/O heart surgery History of sleeve gastrectomy (~2017) Hx of transesophageal echocardiography (SHELIA) for monitoring (~2015) Hx of section Family History Father No problems noted. Mother CVD (cardiovascular disease) Social History Household Members: Family Housing: House Do you presently have visiting nurse or other home services: Yes Alcohol intake: never Patient Tobacco Use Status: Former Tobacco user Quit Date: 2012 Tobacco use type: Cigarette Years Smoked: 29 e-Cigarette/Vaping Use: Never Used Second Hand Smoke Exposure: No Advance Directives Date on File: 08/28/22 service: No Current occupational status: disabled Review of Systems Const All systems reviewed & are unremarkable except as noted in HPI and below Reports fatigue and Reports lethargy Eyes Reports no additional complaints ENT Reports no additional complaints Card Denies chest pain, Denies irregular heart rhythm, Denies leg edema and Reports dyspnea on exertion Resp Reports as per HPI and Reports dyspnea on exertion GI Reports no additional complaints Reports no additional complaints Musc Reports no additional complaints Skin/Breast Reports system reviewed and no additional complaints, except as documented Neuro Reports no additional complaints Psych Reports depression (Controlled with sertraline) Endo Reports fatigue and Reports other (Being treated for hypothyroidism) Physical Exam Vital Signs: Last Vital Signs Pulse 70 08/15/23 09:40 BP 128/62 08/15/23 09:40 Pulse Ox 94 08/15/23 09:40 Oxygen Delivery Method Nasal Cannula 08/15/23 09:40 Oxygen Flow Rate 2 08/15/23 09:40 Const General: comfortable (But short of breath), no acute distress, alert and awake Orientation/consciousness: patient oriented x3 HEENT Head: Yes normal to inspection General nose exam: No nasal polyps present and No nasal discharge present Face and sinus: Yes sinuses nontender Mouth: oropharynx normal Throat: Yes posterior oropharynx normal Eyes General: appearance normal, both eyes and all related structures Neck Neck: Yes normal visual inspection, Yes no lymphadenopathy, Yes trachea midline and Yes no JVD Thyroid: Thyroid normal Chest Chest palpation & inspection: abnormal inspection of the chest (Midline scar from previous cardiac surgery), normal palpation of entire chest wall and no tenderness Resp Other: Breath sounds are distant but equal on both sides. Prolonged expiratory phase, No wheezes rhonchi or crepitations are heard today. Cardio Palpation: normal PMI Rate: regular rate Rhythm: regular rhythm Heart sounds: no gallops and no murmurs GI Palpation (GI): Soft to palpation, nontender, No hepatosplenomegaly present and no masses Auscultation: normal bowel sounds Back/Spine/Pelvis Thoracic/Lumbar Spine: thoracic and lumbar spine normal to inspection Skin General skin exam: no rashes or lesions noted Neuro General: patient oriented x3 and no focal motor deficits Cranial nerves: Yes CN's II-XII intact bilaterally Extrem General: Yes normal to inspection, Yes no clubbing, cyanosis or edema and Yes no calf tenderness Psych Appearance: grossly normal and well kempt Speech and movement: Normal speech and movement present Results Reviewed Results Reviewed: Compliance report is reviewed and she has used 30/30 nights, 100%, average use per night 7 hours 39 minutes, pressure setting is only 7 cm No air leak this time Residual AHI only 0.7 Assessment & Plan Assessment & Plan (1) Hx of mitral valve replacement: Onset Date: ~2004 Comment: 29 mm [place] mitral valve replacement with 28 mm tricuspid annuloplasty ring with Maze 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 . Compliance is excellent , patient commended for the good compliance and is advised to continue using the CPAP. On a regular basis Code(s): G47.33 - Obstructive sleep apnea (adult) (pediatric) (4) COPD (chronic obstructive pulmonary disease): Comment: This patient being treated for chronic obstructive pulmonary disease. It remains quite stable and well controlled. Patient is requesting to join rehab program. PLAN , continue present medications. TX: Uses Trelegy 1 inhalation daily , which will continue Also may use the Ventolin HFA 1 or 2 puffs Q 4-6 hours p.r.n.. Code(s): J44.9 - Chronic obstructive pulmonary disease, unspecified (5) Interstitial lung disease: Comment: Patient has had history of interstitial lung disease, which was considered to be due to amiodarone. The last CT scan has shown marked improvement , but there is still some residual interstitial lung disease. CLINICALLY I DO NOT THINK SHE HAS ANY RESIDUAL I LD AT THIS TIME. Code(s): J84.9 - Interstitial pulmonary disease, unspecified (6) Nocturnal hypoxemia: Onset Date: ~08/15/23 Comment: ON THE BASELINE STUDY PATIENT DID HAVE NOCTURNAL HYPOXEMIA. IT WAS CORRECTED WITH THE CPAP AT PRESSURE. OF 7 CM HOWEVER PATIENT IS STILL PUTTING ON THE OXYGEN AT NIGHT ALONG WITH THE CPAP, I TOLD HER NOT TO EXCEED 2 L/MINUTE. Code(s): G47.34 - Idiopathic sleep related nonobstructive alveolar hypoventilation (7) Exercise hypoxemia: Comment: This patient has documented hypoxemia on exertion. As she feels better she is not using the oxygen all the times when. She walks or goes outdoors I MADE HER WALK FOR ABOUT 4 MINUTES IN THE HALLWAY AND O2 SAT DROPPED DOWN TO 86 % THUS I HAVE INSTRUCTED HER TO USE THE PORTABLE OXYGEN , 2 L/MINUTE FOR ANY SUSTAINED PHYSICAL ACTIVITY AND ALSO FOR GOING OUTDOORS. Code(s): R09.02 - Hypoxemia Plan: This 67 years old female with all the above noted medical problems, is doing very well and remains stable She is very compliant to use CPAP at night. She stays on O2 2 L/minute mostly Her activity level is good. I do not think she needs to participate in active pulmonary rehab program at this time. Advised to continue the present medications and oxygen, as well as CPAP at night. Will recheck her in 3 months Coding Level of Care Code Est Pt Level 4 (28458) Diagnoses Hx of mitral valve replacement Z95.2 Status post transcatheter aortic valve replacement Z95.2 Obstructive sleep apnea G47.33 COPD (chronic obstructive pulmonary disease) J44.9 Interstitial lung disease J84.9 Nocturnal hypoxemia G47.34 Exercise hypoxemia R09.02
[2023-08-15 09:40] VITALS: BP 128/62; PULSE 70; O2SAT 94
== END 2023-08-15 09:55 | disposition home or self-care (01) ==
PROVIDERS: PCP Internal Medicine; Visit Provider Internal Medicine
DX: Z95.2 Presence of prosthetic heart valve (principal); G47.33 Obstructive sleep apnea (adult) (pediatric); J44.9 Chronic obstructive pulmonary disease, unspecified; J84.9 Interstitial pulmonary disease, unspecified; G47.34 Idiopathic sleep related nonobstructive alveolar hypoventilation; R09.02 Hypoxemia
CPT/HCPCS: 99214

== ENCOUNTER → 2023-08-15 09:25 | Outpatient (BNVA) | payer MEDICARE, MEDICAID, SELFPAY | PROVIDERS: PCP Internal Medicine; Visit Provider Internal Medicine | DX: G47.33 Obstructive sleep apnea (adult) (pediatric) (principal); G47.34 Idiopathic sleep related nonobstructive alveolar hypoventilation; J44.9 Chronic obstructive pulmonary disease, unspecified; J84.9 Interstitial pulmonary disease, unspecified; R06.02 Shortness of breath; Z95.2 Presence of prosthetic heart valve | CPT/HCPCS: 99212 ==

== ENCOUNTER → 2023-08-16 23:59 | Outpatient (BNV) | payer MEDICARE, MEDICAID, SELFPAY ==
--- NOTE | 2023-08-19 16:33 | MHC.OFFVIS ---
Intake Intake Visit Reasons: Remote ILR Check- [employer] Allergies amiodarone Allergy (Intermediate, Verified 08/19/23 08:45) Swelling [facility] Medical History (Updated 08/15/23 @ 10:02 by Mary Ellen Brumfield MD) PAF (paroxysmal atrial fibrillation) Increasing shortness of breath Encounter for interrogation of cardiac pacemaker Subtherapeutic international normalized ratio (INR) Heart failure Cardiac pacemaker Nocturnal hypoxemia (~08/15/23) Sinus pause History of cardioversion Interstitial lung disease COPD (chronic obstructive pulmonary disease) Pulmonary nodule Atrial flutter with rapid ventricular response Atrial fibrillation with rapid ventricular response COPD (chronic obstructive pulmonary disease) Exercise hypoxemia Interstitial lung disease Bronchitis due to Staphylococcus aureus History of transcatheter aortic valve replacement (TAVR) Acute diastolic CHF (congestive heart failure) Paroxysmal atrial fibrillation Abnormal EKG Hypoxia Interstitial lung disease Anemia Persistent atrial fibrillation Atrial flutter Obesity (HFpEF) heart failure with preserved ejection fraction Aortic stenosis Current use of anticoagulant therapy Surgical History Status post transcatheter aortic valve replacement Hx of mitral valve replacement (~2004) Status post placement of cardiac pacemaker H/O heart surgery History of sleeve gastrectomy (~2017) Hx of transesophageal echocardiography (SHELIA) for monitoring (~2015) Hx of section Family History Father No problems noted. Mother CVD (cardiovascular disease) Social History Household Members: Family Housing: House Do you presently have visiting nurse or other home services: Yes Alcohol intake: never Patient Tobacco Use Status: Former Tobacco user Quit Date: 2012 Tobacco use type: Cigarette Years Smoked: 29 e-Cigarette/Vaping Use: Never Used Second Hand Smoke Exposure: No Advance Directives Date on File: 08/28/22 service: No Current occupational status: disabled Office Procedures Cardiac Device Check Cardiac Device Check Details: Remote implantable loop recorder report generated 08/17/2023. No pauses noted. Few episodes of atrial fibrillation noted [id number] Cardiac Interrogation, subcut cardiac rhythm monitor Procedure code (CPT) selection complete Coding Level of Care Code Procedure Only CPT Codes Cardiac Device Check - Cardiac Device 16: [id number] Cardiac Interrogation, subcut cardiac rhythm monitor ([id number])
== END ==
PROVIDERS: PCP Internal Medicine; Visit Provider Internal Medicine Cardiovascular Disease
DX: I48.91 Unspecified atrial fibrillation (principal)
CPT/HCPCS: 93298

== ENCOUNTER 2023-08-19 08:13 | Outpatient (AMB) | payer MEDICARE, MEDICAID, SELFPAY ==
[2023-08-19 08:51] LABS: Prothrombin Time Whole Bld POC 37.3 sec (11.1-13.5); ~PT, ~INR - Anti Coag Clinic 3.1 (0.9-1.1)
--- NOTE | 2023-08-19 08:55 | MHC.OFFVISCO ---
Intake Intake Visit Reasons: Anticoagulation Allergies amiodarone Allergy (Intermediate, Verified 08/19/23 08:45) Swelling Medication List - Last Reconciled 08/19/23 by My Mata RN albuterol sulfate 90 mcg/actuation (Ventolin HFA) 2 puffs inhalation Q4-6H PRN atorvastatin 20 mg PO DAILY diltiazem HCl 120 mg PO DAILY empagliflozin (Jardiance) 10 mg PO DAILY ferrous sulfate 325 mg PO DAILY@1600 flecainide 100 mg PO BID sydpuvwwgqo-fbtiwxmii-hqhvhipo 200-62.5-25 mcg (Trelegy Ellipta) 1 ea inhalation DAILY folic acid 1 mg PO DAILY furosemide 40 mg PO DAILY levothyroxine 25 mcg PO DAILY@0600 sertraline 200 mg PO DAILY warfarin 10 mg See Protocol PO FR warfarin 7.5 mg See Protocol PO SUMOTUWETHSA zolpidem 5 mg PO BEDTIME PRN Nursing Note Amb to [facility] feeling well, sts she is going to [place] next week Medications and supplements reviewed No changes in health, diet, medications, or supplements Denies any unusual signs and symptoms of bruising, bleeding Denies any new Chest pain, SOB, or clotting INR: 3.1 in therapeutic range (2.5-3.5) Nutritional guidance given: balance greens and reds in diet Dose: continue usual dosing;10mg x 1 day and 7.5mg x 6 days F/U INR: 1 week Patient verbalizes understanding of instructions given with accurate read back/ teach back of dosing Anti-Coag Initial Assessment Social Hx Patient Tobacco Use Status: Former Tobacco user Quit Date: 2012 Tobacco use type: Cigarette alcohol intake: never Alcohol intake frequency: holidays/special occasions only Coding Level of Care Code Est Patient Level 1 Diagnoses Current use of anticoagulant therapy Z79.01 Time Spent (min) 15 Assessment & Plan Assessment & Plan (1) Current use of anticoagulant therapy: Code(s): Z79.01 - group home (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
== END 2023-08-19 08:58 | disposition home or self-care (01) ==
LOC: HO.ACS 08:13
PROVIDERS: PCP Internal Medicine; Visit Provider Internal Medicine
DX: Z79.01 Long term (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 (principal)

== ENCOUNTER → 2023-08-19 08:13 | Outpatient (BNVA) | payer MEDICARE, MEDICAID, SELFPAY | PROVIDERS: PCP Internal Medicine; Visit Provider Internal Medicine | DX: Z95.2 Presence of prosthetic heart valve (principal); Z79.01 Long term (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; Z51.81 Encounter for therapeutic drug level monitoring | CPT/HCPCS: 85610; 99211 ==

== ENCOUNTER 2023-08-26 08:26 | Outpatient (AMB) | payer MEDICARE, MEDICAID, SELFPAY ==
--- NOTE | 2023-08-26 08:32 | MHC.OFFVISCO ---
Intake Intake Visit Reasons: Anticoagulation Allergies amiodarone Allergy (Intermediate, Verified 08/26/23 08:27) Swelling Medication List - Last Reconciled 08/26/23 by Fannie Thomason RN albuterol sulfate 90 mcg/actuation (Ventolin HFA) 2 puffs inhalation Q4-6H PRN atorvastatin 20 mg PO DAILY diltiazem HCl 120 mg PO DAILY empagliflozin (Jardiance) 10 mg PO DAILY ferrous sulfate 325 mg PO DAILY@1600 flecainide 100 mg PO BID poeullbtrqi-bpprysggf-evimmsht 200-62.5-25 mcg (Trelegy Ellipta) 1 ea inhalation DAILY folic acid 1 mg PO DAILY furosemide 40 mg PO DAILY levothyroxine 25 mcg PO DAILY@0600 sertraline 200 mg PO DAILY warfarin 10 mg See Protocol PO FR warfarin 7.5 mg See Protocol PO SUMOTUWETHSA zolpidem 5 mg PO BEDTIME PRN Nursing Note INR 2.4-?? out of therapeutic range Medications and supplements reviewed Patient status: no c.o- flying to[place] to [place] for 2 weeks Medications or supplements: no changes Diet: same- had more greens Denies any signs and symptoms of bleeding or clotting or unusual bruising Bleeding, bruising, clotting discussed Nutritional guidance given: no greens for 2 days, eat a red today Dose: 10mg today and tomm, then cont reg 7.5mg x 6, 10mg x 1 F/U INR Date : 09/12/23? Patient verbalizing understanding of instructions given. Anti-Coag Initial Assessment Social Hx Patient Tobacco Use Status: Former Tobacco user Quit Date: 2012 Tobacco use type: Cigarette alcohol intake: never Alcohol intake frequency: holidays/special occasions only Coding Level of Care Code Est Patient Level 1 Diagnoses Current use of anticoagulant therapy Z79.01 Assessment & Plan Assessment & Plan (1) Current use of anticoagulant therapy: Code(s): Z79.01 - halfway (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
[2023-08-26 08:33] LABS: Prothrombin Time Whole Bld POC 28.8 sec (11.1-13.5); ~PT, ~INR - Anti Coag Clinic 2.4 (0.9-1.1)
== END 2023-08-26 08:45 | disposition home or self-care (01) ==
LOC: HO.ACS 08:26
PROVIDERS: PCP Internal Medicine; Visit Provider Internal Medicine
DX: Z79.01 Long term (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 (principal)

== ENCOUNTER → 2023-08-26 08:26 | Outpatient (BNVA) | payer MEDICARE, MEDICAID, SELFPAY | PROVIDERS: PCP Internal Medicine; Visit Provider Internal Medicine | DX: Z95.2 Presence of prosthetic heart valve (principal); Z79.01 Long term (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; Z51.81 Encounter for therapeutic drug level monitoring | CPT/HCPCS: 85610; 99211 ==

== ENCOUNTER 2023-09-12 08:48 | Outpatient (AMB) | payer MEDICARE, MEDICAID, SELFPAY ==
--- NOTE | 2023-09-12 09:02 | MHC.OFFVISCO ---
Intake Intake Visit Reasons: Anticoagulation Allergies amiodarone Allergy (Intermediate, Verified 09/12/23 08:56) Swelling Medication List - Last Reconciled 09/12/23 by Fannie Thomason RN albuterol sulfate 90 mcg/actuation (Ventolin HFA) 2 puffs inhalation Q4-6H PRN atorvastatin 20 mg PO DAILY diltiazem HCl 120 mg PO DAILY empagliflozin (Jardiance) 10 mg PO DAILY ferrous sulfate 325 mg PO DAILY@1600 flecainide 100 mg PO BID arcshtimdds-xmebbkqai-fbqqhtrs 200-62.5-25 mcg (Trelegy Ellipta) 1 ea inhalation DAILY folic acid 1 mg PO DAILY furosemide 40 mg PO DAILY levothyroxine 25 mcg PO DAILY@0600 sertraline 200 mg PO DAILY warfarin 10 mg See Protocol PO FR warfarin 7.5 mg See Protocol PO SUMOTUWETHSA zolpidem 5 mg PO BEDTIME PRN Nursing Note INR 4.1-? out of therapeutic range of 2.5- 3.5 Medications and supplements reviewed Patient status: returned from [place] Medications or supplements: no changes Diet: same Denies any signs and symptoms of bleeding or clotting or unusual bruising Bleeding, bruising, clotting discussed Nutritional guidance given: eat greens to lower inr Dose: 5 mg today then cont 7.5mg x 6, 10mg x 1 F/U INR Date : req sat09/16/23?? Patient verbalizing understanding of instructions given. Anti-Coag Initial Assessment Social Hx Patient Tobacco Use Status: Former Tobacco user Quit Date: 2012 Tobacco use type: Cigarette alcohol intake: never Alcohol intake frequency: holidays/special occasions only Coding Level of Care Code Est Patient Level 1 Diagnoses Current use of anticoagulant therapy Z79.01 Results AMB INR Fingerstick AMB INR Fingerstick 4.1 Last Edit by Fannie Thomason RN on 09/12/23 09:05 Assessment & Plan Assessment & Plan (1) Current use of anticoagulant therapy: Code(s): Z79.01 - snf (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
[2023-09-12 13:35] LABS: Prothrombin Time Whole Bld POC 48.9 sec (11.1-13.5); ~PT, ~INR - Anti Coag Clinic 4.1 (0.9-1.1)
== END 2023-09-12 09:09 | disposition home or self-care (01) ==
LOC: HO.ACS 08:48
PROVIDERS: PCP Internal Medicine; Visit Provider Internal Medicine
DX: Z79.01 Long term (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 (principal)

== ENCOUNTER → 2023-09-12 08:48 | Outpatient (BNVA) | payer MEDICARE, MEDICAID, SELFPAY | PROVIDERS: PCP Internal Medicine; Visit Provider Internal Medicine | DX: Z95.2 Presence of prosthetic heart valve (principal); Z79.01 Long term (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; Z51.81 Encounter for therapeutic drug level monitoring | CPT/HCPCS: 85610; 99211 ==

== ENCOUNTER 2023-09-18 08:38 | Outpatient (AMB) | payer MEDICARE, MEDICAID, SELFPAY ==
--- NOTE | 2023-09-18 08:46 | MHC.OFFVISCO ---
Intake Intake Visit Reasons: Anticoagulation Allergies amiodarone Allergy (Intermediate, Verified 09/18/23 08:42) Swelling Medication List - Last Reconciled 09/18/23 by Fannie Thomason RN albuterol sulfate 90 mcg/actuation (Ventolin HFA) 2 puffs inhalation Q4-6H PRN atorvastatin 20 mg PO DAILY diltiazem HCl 120 mg PO DAILY empagliflozin (Jardiance) 10 mg PO DAILY ferrous sulfate 325 mg PO DAILY@1600 flecainide 100 mg PO BID njzwekmhfyh-zhfonwavh-bhtemnup 200-62.5-25 mcg (Trelegy Ellipta) 1 ea inhalation DAILY folic acid 1 mg PO DAILY furosemide 40 mg PO DAILY levothyroxine 25 mcg PO DAILY@0600 sertraline 200 mg PO DAILY warfarin 10 mg See Protocol PO FR warfarin 7.5 mg See Protocol PO SUMOTUWETHSA zolpidem 5 mg PO BEDTIME PRN Nursing Note INR 3.7-? out of therapeutic range of 2.5-3.5 Medications and supplements reviewed Patient status: no c.o Medications or supplements: no changes Diet: same Denies any signs and symptoms of bleeding or clotting or unusual bruising Bleeding, bruising, clotting discussed Nutritional guidance given: eat greens to lower, no reds for 2 days Dose: 5mg today then cont reg dosing, 7.5mg x 6, 10mg x 1 F/U INR Date : saturday09/23/23? Patient verbalizing understanding of instructions given. Anti-Coag Initial Assessment Social Hx Patient Tobacco Use Status: Former Tobacco user Quit Date: 2012 Tobacco use type: Cigarette alcohol intake: never Alcohol intake frequency: holidays/special occasions only Coding Level of Care Code Est Patient Level 1 Results AMB INR Fingerstick AMB INR Fingerstick 3.7 Last Edit by Fannie Thomason RN on 09/18/23 08:50 AMB INR Fingerstick AMB INR Fingerstick 3.7 Last Edit by Fannie Thomason RN on 09/18/23 08:51
[2023-09-18 08:47] LABS: Prothrombin Time Whole Bld POC 44.5 sec (11.1-13.5); ~PT, ~INR - Anti Coag Clinic 3.7 (0.9-1.1)
== END 2023-09-18 09:31 | disposition home or self-care (01) ==
LOC: HO.ACS 08:38
PROVIDERS: PCP Internal Medicine; Visit Provider Internal Medicine
DX: Z79.01 Long term (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 (principal)

== ENCOUNTER → 2023-09-18 08:38 | Outpatient (BNVA) | payer MEDICARE, MEDICAID, SELFPAY | PROVIDERS: PCP Internal Medicine; Visit Provider Internal Medicine | DX: Z95.2 Presence of prosthetic heart valve (principal); Z51.81 Encounter for therapeutic drug level monitoring; Z79.01 Long term (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 | CPT/HCPCS: 85610; 99211 ==

== ENCOUNTER → 2023-09-20 23:59 | Outpatient (BNV) | payer MEDICARE, MEDICAID, SELFPAY ==
--- NOTE | 2023-09-23 15:13 | MHC.OFFVIS ---
Intake Intake Visit Reasons: Remote ILR Check- [employer] Allergies amiodarone Allergy (Intermediate, Verified 09/23/23 09:02) Swelling [facility] Medical History (Updated 08/15/23 @ 10:02 by Mary Ellen Brmufield MD) PAF (paroxysmal atrial fibrillation) Increasing shortness of breath Encounter for interrogation of cardiac pacemaker Subtherapeutic international normalized ratio (INR) Heart failure Cardiac pacemaker Nocturnal hypoxemia (~08/15/23) Sinus pause History of cardioversion Interstitial lung disease COPD (chronic obstructive pulmonary disease) Pulmonary nodule Atrial flutter with rapid ventricular response Atrial fibrillation with rapid ventricular response COPD (chronic obstructive pulmonary disease) Exercise hypoxemia Interstitial lung disease Bronchitis due to Staphylococcus aureus History of transcatheter aortic valve replacement (TAVR) Acute diastolic CHF (congestive heart failure) Paroxysmal atrial fibrillation Abnormal EKG Hypoxia Interstitial lung disease Anemia Persistent atrial fibrillation Atrial flutter Obesity (HFpEF) heart failure with preserved ejection fraction Aortic stenosis Current use of anticoagulant therapy Surgical History Status post transcatheter aortic valve replacement Hx of mitral valve replacement (~2004) Status post placement of cardiac pacemaker H/O heart surgery History of sleeve gastrectomy (~2017) Hx of transesophageal echocardiography (SHELIA) for monitoring (~2015) Hx of section Family History Father No problems noted. Mother CVD (cardiovascular disease) Household Members: Family Housing: House Do you presently have visiting nurse or other home services: Yes Alcohol intake: never Patient Tobacco Use Status: Former Tobacco user Quit Date: 2012 Tobacco use type: Cigarette Years Smoked: 29 e-Cigarette/Vaping Use: Never Used Second Hand Smoke Exposure: No Advance Directives Date on File: 08/28/22 service: No Current occupational status: disabled Office Procedures Cardiac Device Check Cardiac Device Check Details: Implantable loop recorder report generated 09/19/2023. No pauses noted. Intermittent episodes of atrial fibrillation noted with total burden of 0.1% [id number] Cardiac Interrogation, subcut cardiac rhythm monitor Procedure code (CPT) selection complete Coding Level of Care Code Procedure Only CPT Codes Cardiac Device Check - Cardiac Device 16: [id number] Cardiac Interrogation, subcut cardiac rhythm monitor ([id number])
== END ==
PROVIDERS: PCP Internal Medicine; Visit Provider Internal Medicine Cardiovascular Disease
DX: I48.0 Paroxysmal atrial fibrillation (principal); Z95.818 Presence of other cardiac implants and grafts
CPT/HCPCS: 93298

== ENCOUNTER 2023-09-23 09:01 | Outpatient (AMB) | payer MEDICARE, MEDICAID, SELFPAY ==
[2023-09-23 09:08] LABS: Prothrombin Time Whole Bld POC 35.2 sec (11.1-13.5); ~PT, ~INR - Anti Coag Clinic 2.9 (0.9-1.1)
--- NOTE | 2023-09-23 09:12 | MHC.OFFVISCO ---
Intake Intake Visit Reasons: Anticoagulation Allergies amiodarone Allergy (Intermediate, Verified 09/23/23 09:02) Swelling Medication List - Last Reconciled 09/23/23 by Cynthia Morrissey RN albuterol sulfate 90 mcg/actuation (Ventolin HFA) 2 puffs inhalation Q4-6H PRN atorvastatin 20 mg PO DAILY diltiazem HCl 120 mg PO DAILY empagliflozin (Jardiance) 10 mg PO DAILY ferrous sulfate 325 mg PO DAILY@1600 flecainide 100 mg PO BID yweayertdxu-tltbmuqdu-dzikcsys 200-62.5-25 mcg (Trelegy Ellipta) 1 ea inhalation DAILY folic acid 1 mg PO DAILY furosemide 40 mg PO DAILY levothyroxine 25 mcg PO DAILY@0600 sertraline 200 mg PO DAILY warfarin 10 mg See Protocol PO FR warfarin 7.5 mg See Protocol PO SUMOTUWETHSA zolpidem 5 mg PO BEDTIME PRN Nursing Note INR: 2.9 in therapeutic range Medications and supplements reviewed No changes in health, diet, medications, or supplements, Denies any signs and symptoms of bleeding or bruising or clotting. Bleeding, bruising, clotting discussed Nutritional guidance given Dose: 10MG X 1 DA/ 7.5 MG X 6 DAYS F/U INR: 1 WEEK ' Patient verbalizes understanding of instructions given Anti-Coag Initial Assessment Social Hx Patient Tobacco Use Status: Former Tobacco user Quit Date: 2012 Tobacco use type: Cigarette alcohol intake: never Alcohol intake frequency: holidays/special occasions only Coding Level of Care Code Est Patient Level 1
== END 2023-09-23 09:13 | disposition home or self-care (01) ==
LOC: HO.ACS 09:01
PROVIDERS: PCP Internal Medicine; Visit Provider Internal Medicine
DX: Z79.01 Long term (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 (principal)

== ENCOUNTER → 2023-09-23 09:01 | Outpatient (BNVA) | payer MEDICARE, MEDICAID, SELFPAY | PROVIDERS: PCP Internal Medicine; Visit Provider Internal Medicine | DX: Z95.2 Presence of prosthetic heart valve (principal); Z79.01 Long term (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; Z51.81 Encounter for therapeutic drug level monitoring | CPT/HCPCS: 85610; 99211 ==

== ENCOUNTER 2023-09-30 08:40 | Outpatient (AMB) | payer MEDICARE, MEDICAID, SELFPAY ==
--- NOTE | 2023-09-30 09:08 | MHC.OFFVISCO ---
Intake Intake Visit Reasons: Anticoagulation Allergies amiodarone Allergy (Intermediate, Verified 09/30/23 09:03) Swelling Medication List - Last Reconciled 09/30/23 by Fannie Thomason RN albuterol sulfate 90 mcg/actuation (Ventolin HFA) 2 puffs inhalation Q4-6H PRN atorvastatin 20 mg PO DAILY diltiazem HCl 120 mg PO DAILY empagliflozin (Jardiance) 10 mg PO DAILY ferrous sulfate 325 mg PO DAILY@1600 flecainide 100 mg PO BID ahkopeytcio-tktpicpmu-whutwfum 200-62.5-25 mcg (Trelegy Ellipta) 1 ea inhalation DAILY folic acid 1 mg PO DAILY furosemide 40 mg PO DAILY levothyroxine 25 mcg PO DAILY@0600 sertraline 200 mg PO DAILY warfarin 10 mg See Protocol PO FR warfarin 7.5 mg See Protocol PO SUMOTUWETHSA zolpidem 5 mg PO BEDTIME PRN Nursing Note INR: 3.4- in therapeutic range of 2.5-3.5 Medications and supplements reviewed- no changes No changes in health, diet, medications, or supplements, Denies any signs and symptoms of bleeding or bruising or clotting. 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
[2023-09-30 09:09] LABS: Prothrombin Time Whole Bld POC 41.3 sec (11.1-13.5); ~PT, ~INR - Anti Coag Clinic 3.4 (0.9-1.1)
== END 2023-09-30 09:14 | disposition home or self-care (01) ==
LOC: HO.ACS 08:40
PROVIDERS: PCP Internal Medicine; Visit Provider Internal Medicine
DX: Z79.01 Long term (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 (principal)

== ENCOUNTER → 2023-09-30 08:40 | Outpatient (BNVA) | payer MEDICARE, MEDICAID, SELFPAY | PROVIDERS: PCP Internal Medicine; Visit Provider Internal Medicine | DX: Z95.2 Presence of prosthetic heart valve (principal); Z79.01 Long term (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; Z51.81 Encounter for therapeutic drug level monitoring | CPT/HCPCS: 85610; 99211 ==

== ENCOUNTER → 2023-10-02 23:59 | Outpatient (BNV) | payer MEDICARE, MEDICAID, SELFPAY ==
--- NOTE | 2023-10-07 14:37 | MHC.OFFVIS ---
Intake Intake Visit Reasons: Remote Device Check- Med[employer] Allergies amiodarone Allergy (Intermediate, Verified 09/30/23 09:03) Swelling COUNTS INCLUDE 234 BEDS AT THE [facility] Medical History (Updated 08/15/23 @ 10:02 by Mary Ellen Brumfield MD) PAF (paroxysmal atrial fibrillation) Increasing shortness of breath Encounter for interrogation of cardiac pacemaker Subtherapeutic international normalized ratio (INR) Heart failure Cardiac pacemaker Nocturnal hypoxemia (~08/15/23) Sinus pause History of cardioversion Interstitial lung disease COPD (chronic obstructive pulmonary disease) Pulmonary nodule Atrial flutter with rapid ventricular response Atrial fibrillation with rapid ventricular response COPD (chronic obstructive pulmonary disease) Exercise hypoxemia Interstitial lung disease Bronchitis due to Staphylococcus aureus History of transcatheter aortic valve replacement (TAVR) Acute diastolic CHF (congestive heart failure) Paroxysmal atrial fibrillation Abnormal EKG Hypoxia Interstitial lung disease Anemia Persistent atrial fibrillation Atrial flutter Obesity (HFpEF) heart failure with preserved ejection fraction Aortic stenosis Current use of anticoagulant therapy Surgical History Status post transcatheter aortic valve replacement Hx of mitral valve replacement (~2004) Status post placement of cardiac pacemaker H/O heart surgery History of sleeve gastrectomy (~2017) Hx of transesophageal echocardiography (SHELIA) for monitoring (~2015) Hx of section Family History Father No problems noted. Mother CVD (cardiovascular disease) Social History Household Members: Family Housing: House Do you presently have visiting nurse or other home services: Yes Alcohol intake: never Patient Tobacco Use Status: Former Tobacco user Quit Date: 2012 Tobacco use type: Cigarette Years Smoked: 29 e-Cigarette/Vaping Use: Never Used Second Hand Smoke Exposure: No Advance Directives Date on File: 08/28/22 service: No Current occupational status: disabled Office Procedures Cardiac Device Check Cardiac Device Check Details: Remote pacemaker report generated 10/02/2023. Pacemaker function is adequate. Few rapid heart rate response could represent atrial flutter/SVT [id number] Cardiac Device Interrogation, pacemaker Procedure code (CPT) selection complete Assessment & Plan Assessment & Plan (1) Status post placement of cardiac pacemaker: Comment: Jun 20, 2023. Medtronic single chamber Code(s): Z95.0 - Presence of cardiac pacemaker Plan: See above Coding Level of Care Code Procedure Only Diagnoses Status post placement of cardiac pacemaker Z95.0 CPT Codes Cardiac Device Check - Cardiac Device 12: [id number] Cardiac Device Interrogation, pacemaker ([id number])
== END ==
PROVIDERS: PCP Internal Medicine; Visit Provider Internal Medicine Cardiovascular Disease
DX: I48.0 Paroxysmal atrial fibrillation (principal); Z95.0 Presence of cardiac pacemaker
CPT/HCPCS: 93294

== ENCOUNTER 2023-10-14 | Outpatient (REF) | payer MEDICARE, MEDICAID, SELFPAY | END 2023-10-14 00:01 | disposition home or self-care (01) | LOC: CF | PROVIDERS: Visit Provider Internal Medicine | DX: Z95.2 Presence of prosthetic heart valve (principal); Z51.81 Encounter for therapeutic drug level monitoring; Z79.01 Long term (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 | CPT/HCPCS: 85610; 99212 ==

== ENCOUNTER 2023-10-14 08:04 | Outpatient (AMB) | payer MEDICARE, MEDICAID, SELFPAY ==
--- NOTE | 2023-10-14 08:27 | MHC.OFFVISCO ---
Intake Intake Visit Reasons: Anticoagulation Allergies amiodarone Allergy (Intermediate, Verified 10/14/23 08:09) Swelling Medication List - Last Reconciled 10/14/23 by My Mata RN albuterol sulfate 90 mcg/actuation (Ventolin HFA) 2 puffs inhalation Q4-6H PRN atorvastatin 20 mg PO DAILY diltiazem HCl 120 mg PO DAILY empagliflozin (Jardiance) 10 mg PO DAILY ferrous sulfate 325 mg PO DAILY@1600 flecainide 100 mg PO BID [id number]-abskesjfh-dvsxeszb 200-62.5-25 mcg (Trelegy Ellipta) 1 ea inhalation DAILY folic acid 1 mg PO DAILY furosemide 40 mg PO DAILY levothyroxine 25 mcg PO DAILY@0600 sertraline 200 mg PO DAILY warfarin 10 mg See Protocol PO FR warfarin 7.5 mg See Protocol PO SUMOTUWETHSA zolpidem 5 mg PO BEDTIME PRN Nursing Note Amb to [facility] feeling stressed sts she has been out of her 2.5mg warfarin tablets since saturday.sts she has some left over 6mg tablets and has been taking 6mg and 9mg alt stsshe started messaging PCP through portal last week 10/08 for refills, sts she barely gets enough to last the month Medications and supplements reviewed No other changes in health, diet, medications, or supplements Denies any unusual signs and symptoms of bruising, bleeding Denies any new Chest pain, SOB, or clotting INR: 3.2 in therapeutic range (2.5-3.5) Nutritional guidance given: balance greens and reds in diet Dose: while waiting for 2.5mg strength refills pt will take 6mg warfarin tablets 9mg today and tomorrow, 6mg on 10/16, 9mg on and Saturday 6mg on Saturday and Saturday of usual 2.5mg tab not available dosing sheet given as per usual dosing and new dosing while waiting for refill written in red sharpie and reviewed with pt. Usual dosing is 55 mg weekly, with the 6mg tablet can get weekly to 54mg. F/U INR: 2 weeks Patient verbalizes understanding of instructions given with accurate read back/ teach back of dosing and aware to switch to usual dosing with 2.5mg strength warfarin (7.5mg x 6 days and 10mg x 1 day)when available call to [facility] critical results line and reported above situation, message left call back at [phone] from Isidra RN she will put request to Dr Chopra for 2.5mg tablets, take 3-4 daily as per ACS and INR Anti-Coag Initial Assessment Social Hx Patient Tobacco Use Status: Former Tobacco user Quit Date: 2012 Tobacco use type: Cigarette alcohol intake: never Alcohol intake frequency: holidays/special occasions only Questionnaires HAS-BLED Does the patient had uncontrolled Hypertension?: No Does the patient have renal disease?: No Does the patient have liver disease?: No Does the patient have a history of stroke?: No Has the patient had major bleeding or predisposition to bleeding?: No Does the patient have labile INRs?: Yes Is the patient over 65 years of age?: Yes Is the patient on medications that gives them a predisposition to bleeding?: Yes Does the patient use alcohol?: Yes HAS-BLED Score: 4 CHADSVASC Age: 66-74 Gender: Female Does the patient have a history of CHF?: No Does the patient have a history of Hypertension?: Yes Does the patient have a history of Stroke/TIA/Thromboembolism?: No Does the patient have a history of Vascular Disease (prior KS, PAD or aortic plaque)?: Yes Does the patient have a history of Diabetes?: No CHADS VACS Score: 4 Mark Prediction Score Rsk VTE Active Cancer: No Previous VTE, excluding superficial vein thrombosis: No Reduced mobility: No Already known Thrombophilic Condition: Yes With-in last month Trauma and/or Surgery: No Elderly 70 year or older: No Heart and/or Respiratory Failure: No Acute Myocardial infarction and/or Ischemic Stroke: No Acute Infection and/or Rheumatologic Disorder: No Obesity (BMI 30 or greater): No Ongoing Hormonal Treatment: No Score: 3 Mark Score less than 4; Low Risk of VTE Mark Score 4 or greater; High Risk of VTE Coding Level of Care Code Est Patient Level 2 Diagnoses Current use of anticoagulant therapy Z79.01 Time Spent (min) 30 Assessment & Plan Assessment & Plan (1) Current use of anticoagulant therapy: Code(s): Z79.01 - half-way (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
[2023-10-14 12:12] LABS: ~PT, ~INR - Anti Coag Clinic 3.2 (0.9-1.1)
== END 2023-10-14 09:13 | disposition home or self-care (01) ==
LOC: HO.ACS 08:04
PROVIDERS: PCP Internal Medicine; Visit Provider Internal Medicine
DX: Z79.01 Long term (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 (principal)

== ENCOUNTER → 2023-10-25 23:59 | Outpatient (BNV) | payer MEDICARE, MEDICAID, SELFPAY ==
--- NOTE | 2023-10-29 08:08 | MHC.OFFVIS ---
Intake Intake Visit Reasons: Remote ILR Check- Med[employer] Allergies amiodarone Allergy (Intermediate, Verified 10/14/23 08:09) Swelling [facility] Medical History (Updated 10/29/23 @ 08:10 by Luis Antonio Nelson MD) PAF (paroxysmal atrial fibrillation) Increasing shortness of breath Encounter for interrogation of cardiac pacemaker Subtherapeutic international normalized ratio (INR) Heart failure Cardiac pacemaker Nocturnal hypoxemia (~08/15/23) Sinus pause History of cardioversion Interstitial lung disease COPD (chronic obstructive pulmonary disease) Pulmonary nodule Atrial flutter with rapid ventricular response Atrial fibrillation with rapid ventricular response COPD (chronic obstructive pulmonary disease) Exercise hypoxemia Interstitial lung disease Bronchitis due to Staphylococcus aureus History of transcatheter aortic valve replacement (TAVR) Acute diastolic CHF (congestive heart failure) Paroxysmal atrial fibrillation Abnormal EKG Hypoxia Interstitial lung disease Anemia Persistent atrial fibrillation Atrial flutter Obesity (HFpEF) heart failure with preserved ejection fraction Aortic stenosis Current use of anticoagulant therapy Surgical History Status post transcatheter aortic valve replacement Hx of mitral valve replacement (~2004) Status post placement of cardiac pacemaker H/O heart surgery History of sleeve gastrectomy (~2017) Hx of transesophageal echocardiography (SHELIA) for monitoring (~2015) Hx of section Family History Father No problems noted. Mother CVD (cardiovascular disease) Social History Household Members: Family Housing: House Do you presently have visiting nurse or other home services: Yes Alcohol intake: never Patient Tobacco Use Status: Former Tobacco user Quit Date: 2012 Tobacco use type: Cigarette Years Smoked: 29 e-Cigarette/Vaping Use: Never Used Second Hand Smoke Exposure: No Advance Directives Date on File: 08/28/22 service: No Current occupational status: disabled Office Procedures Cardiac Device Check Cardiac Device Check Details: Remote implantable loop recorder report generated 10/25/2023. Episodes of atrial fibrillation noted with total burden of 14.2%. Also few pauses noted up to 3-4 seconds. Patient to be seen in the office [id number] Cardiac Interrogation, subcut cardiac rhythm monitor Procedure code (CPT) selection complete Assessment & Plan Assessment & Plan (1) Implantable loop recorder present: Code(s): Z95.818 - Presence of other cardiac implants and grafts Plan: See above Coding Level of Care Code Procedure Only Diagnoses Implantable loop recorder present Z95.818 CPT Codes Cardiac Device Check - Cardiac Device 16: [id number] Cardiac Interrogation, subcut cardiac rhythm monitor ([id number])
== END ==
PROVIDERS: PCP Internal Medicine; Visit Provider Internal Medicine Cardiovascular Disease
DX: I48.0 Paroxysmal atrial fibrillation (principal); Z95.818 Presence of other cardiac implants and grafts
CPT/HCPCS: 93298

== ENCOUNTER 2023-10-30 08:05 | Outpatient (AMB) | payer MEDICARE, MEDICAID, SELFPAY ==
--- NOTE | 2023-10-30 08:09 | MHC.OFFVISCO ---
Intake Intake Visit Reasons: Anticoagulation Allergies amiodarone Allergy (Intermediate, Verified 10/30/23 08:06) Swelling Medication List - Last Reconciled 10/30/23 by Fannie Thomason RN albuterol sulfate 90 mcg/actuation (Ventolin HFA) 2 puffs inhalation Q4-6H PRN atorvastatin 20 mg PO DAILY diltiazem HCl 120 mg PO DAILY empagliflozin (Jardiance) 10 mg PO DAILY ferrous sulfate 325 mg PO DAILY@1600 flecainide 100 mg PO BID [id number]-ncswpbcck-kmnagxmt 200-62.5-25 mcg (Trelegy Ellipta) 1 ea inhalation DAILY folic acid 1 mg PO DAILY furosemide 40 mg PO DAILY levothyroxine 25 mcg PO DAILY@0600 sertraline 200 mg PO DAILY warfarin 10 mg See Protocol PO FR warfarin 7.5 mg See Protocol PO SUMOTUWETHSA zolpidem 5 mg PO BEDTIME PRN Nursing Note INR 4.4-?? out of therapeutic range of 2.5-3.5 Medications and supplements reviewed Patient status: no c.o Medications or supplements: no changes Diet: ate large amounts of celery Denies any signs and symptoms of bleeding or clotting or unusual bruising Bleeding, bruising, clotting discussed Nutritional guidance given: eat greens to lower, no reds for 3 days Dose: already took warfarin today, hold tomm then cont reg 7.5mg x 6, 10mg x 1 F/U INR Date : sat11/04/23 Patient verbalizing understanding of instructions given. pt has f/u with cardiology on saturday- ? 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
[2023-10-30 08:11] LABS: Prothrombin Time Whole Bld POC 52.7 sec (11.1-13.5); ~PT, ~INR - Anti Coag Clinic 4.4 (0.9-1.1)
== END 2023-10-30 08:17 | disposition home or self-care (01) ==
LOC: HO.ACS 08:05
PROVIDERS: PCP Internal Medicine; Visit Provider Internal Medicine
DX: Z79.01 Long term (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 (principal)

== ENCOUNTER → 2023-10-30 08:05 | Outpatient (BNVA) | payer MEDICARE, MEDICAID, SELFPAY | PROVIDERS: PCP Internal Medicine; Visit Provider Internal Medicine | DX: Z95.2 Presence of prosthetic heart valve (principal); Z79.01 Long term (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; Z51.81 Encounter for therapeutic drug level monitoring | CPT/HCPCS: 85610; 99211 ==

== ENCOUNTER 2023-11-04 13:04 | Outpatient (AMB) | payer MEDICARE, MEDICAID, SELFPAY ==
[2023-11-04 13:28] LABS: Prothrombin Time Whole Bld POC 36.1 sec (11.1-13.5)
--- NOTE | 2023-11-04 13:32 | MHC.OFFVISCO ---
Intake Intake Visit Reasons: Anticoagulation Allergies amiodarone Allergy (Intermediate, Verified 11/04/23 13:23) Swelling Medication List - Last Reconciled 11/04/23 by Cynthia Morrissey RN albuterol sulfate 90 mcg/actuation (Ventolin HFA) 2 puffs inhalation Q4-6H PRN atorvastatin 20 mg PO DAILY diltiazem HCl 120 mg PO DAILY empagliflozin (Jardiance) 10 mg PO DAILY ferrous sulfate 325 mg PO DAILY@1600 flecainide 100 mg PO BID rajwnvfbdoh-dqsfjuvov-dnadtudn 200-62.5-25 mcg (Trelegy Ellipta) 1 ea inhalation DAILY folic acid 1 mg PO DAILY furosemide 40 mg PO DAILY levothyroxine 25 mcg PO DAILY@0600 sertraline 200 mg PO DAILY warfarin 10 mg See Protocol PO FR warfarin 7.5 mg See Protocol PO SUMOTUWETHSA zolpidem 5 mg PO BEDTIME PRN Nursing Note INR: 3.0 in therapeutic range Medications and supplements reviewed Has a cardiology appt today, states she is back in Af[facility]- she will call with any med changes Denies any signs and symptoms of bleeding or bruising or clotting. Bleeding, bruising, clotting discussed Nutritional guidance given - review food list weekly, eat a mix of fruits and vegetables Dose: keep same 10mg x 1 day/ 7.5mg x 6 days F/U INR: 2 weeks or per any med changes Patient verbalizes understanding of instructions given Anti-Coag Initial Assessment Social Hx Patient Tobacco Use Status: Former Tobacco user Quit Date: 2012 Tobacco use type: Cigarette alcohol intake: never Alcohol intake frequency: holidays/special occasions only Coding Level of Care Code Est Patient Level 1 Diagnoses Current use of anticoagulant therapy Z79.01 Assessment & Plan Assessment & Plan (1) Current use of anticoagulant therapy: Code(s): 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
== END 2023-11-04 13:43 | disposition home or self-care (01) ==
LOC: HO.ACS 13:04
PROVIDERS: PCP Internal Medicine; Visit Provider Internal Medicine
DX: Z79.01 Long term (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 (principal)

== ENCOUNTER → 2023-11-04 13:04 | Outpatient (BNVA) | payer MEDICARE, MEDICAID, SELFPAY | PROVIDERS: PCP Internal Medicine; Visit Provider Internal Medicine | DX: Z45.09 Encounter for adjustment and management of other cardiac device (principal); I48.19 Other persistent atrial fibrillation; I50.32 Chronic diastolic (congestive) heart failure; I95.2 Hypotension due to drugs; Z95.2 Presence of prosthetic heart valve; Z79.01 Long term (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; Z51.81 Encounter for therapeutic drug level monitoring | CPT/HCPCS: 85610; 93005; 99211; 99212 ==

== ENCOUNTER 2023-11-04 13:31 | Outpatient (AMB) | payer MEDICARE, MEDICAID, SELFPAY ==
[2023-11-04 13:36] VITALS: BP 120/78; PULSE 77; BMI 30.2
--- NOTE | 2023-11-04 13:36 | A.OFFVIS_ITS ---
Intake Vital Signs 11/04/23 13:36 Height 5 ft 2 in Weight 165 lb 5.547 oz BMI 30.2 BP 120/78 Blood Pressure Location Lt brachial Position Sitting Pulse 77 Intake Visit Reasons: f/u per DC Intake Note: Follow-up with pacer check Cabinet Mounter Required: No Allergies amiodarone Allergy (Intermediate, Verified 11/04/23 13:23) Swelling Medication List - Last Reconciled 11/04/23 by Luis Antonio Nelson MD albuterol sulfate 90 mcg/actuation (Ventolin HFA) 2 puffs inhalation Q4-6H PRN atorvastatin 20 mg PO DAILY diltiazem HCl 120 mg PO DAILY empagliflozin (Jardiance) 10 mg PO DAILY ferrous sulfate 325 mg PO DAILY@1600 flecainide 100 mg PO BID bpwrinbiqjc-frgygaenk-moybwxld 200-62.5-25 mcg (Trelegy Ellipta) 1 ea inhalation DAILY folic acid 1 mg PO DAILY furosemide 40 mg PO DAILY levothyroxine 25 mcg PO DAILY@0600 sertraline 200 mg PO DAILY warfarin 10 mg See Protocol PO FR warfarin 7.5 mg See Protocol PO SUMOTUWETHSA zolpidem 5 mg PO BEDTIME PRN HPI HPI Comments History of Present Illness Details Nubia comes for follow-up. Recently she was noted on implantable loop recorder that she continue to have nocturnal pauses. This was suspected to be due to AV conduction disorder. However these pauses are become less frequent than in the past prior to pacemaker placement. Pacemaker telemetry suggestive rapid heart rate suggestive atrial fibrillation. She has a single-chamber atrial pacemaker implanted as there was difficulty putting a ventricular lead due to a prior tricuspid valve intervention. Since being in persistent atrial fibrillation she has had increased shortness of breath. She denies any orthopnea, PND, leg edema. Takes all her medications. No bleeding issues or neurologic events. No lightheadedness, syncope. No exertional chest pain [facility] Medical History (Updated 11/10/23 @ 12:10 by Luis Antonio Nelson MD) Persistent atrial fibrillation PAF (paroxysmal atrial fibrillation) Increasing shortness of breath Encounter for interrogation of cardiac pacemaker Subtherapeutic international normalized ratio (INR) Heart failure Cardiac pacemaker Nocturnal hypoxemia (~08/15/23) Sinus pause History of cardioversion Interstitial lung disease COPD (chronic obstructive pulmonary disease) Pulmonary nodule Atrial flutter with rapid ventricular response Atrial fibrillation with rapid ventricular response COPD (chronic obstructive pulmonary disease) Exercise hypoxemia Interstitial lung disease Bronchitis due to Staphylococcus aureus History of transcatheter aortic valve replacement (TAVR) Acute diastolic CHF (congestive heart failure) Paroxysmal atrial fibrillation Abnormal EKG Hypoxia Interstitial lung disease Anemia Atrial flutter Obesity (HFpEF) heart failure with preserved ejection fraction Aortic stenosis Current use of anticoagulant therapy Surgical History Status post transcatheter aortic valve replacement Hx of mitral valve replacement (~2004) Status post placement of cardiac pacemaker H/O heart surgery History of sleeve gastrectomy (~2017) Hx of transesophageal echocardiography (SHELIA) for monitoring (~2015) Hx of section Family History Father No problems noted. Mother CVD (cardiovascular disease) Social History Household Members: Family Housing: House Do you presently have visiting nurse or other home services: Yes Alcohol intake: never Patient Tobacco Use Status: Former Tobacco user Quit Date: 2012 Tobacco use type: Cigarette Years Smoked: 29 e-Cigarette/Vaping Use: Never Used Second Hand Smoke Exposure: No Advance Directives Date on File: 08/28/22 service: No Current occupational status: disabled Review of Systems Const Denies chills, Denies fatigue, Denies fever(s), Denies frequent falls, Denies weakness, Denies weight gain and Denies weight loss ENT Denies dizziness Card Denies chest pain, Denies leg edema, Denies lightheadedness, Denies palpitations, Denies dyspnea, Denies dyspnea on exertion, Denies orthopnea and Denies other (loss of consciousness) Resp Denies cough, Denies dyspnea and Denies dyspnea on exertion GI Denies hematochezia and Denies change in stool character Musc Denies abnormal gait, Denies muscle weakness, Denies numbness, Denies radiating pain into limb and Denies tingling Neuro Denies abnormal gait, Denies dizziness, Denies frequent falls, Denies numbness, Denies tingling and Denies weakness Endo Denies fatigue and Denies palpitations Physical Exam Vital Signs: Last Vital Signs Pulse 77 11/04/23 13:36 BP 120/78 11/04/23 13:36 BMI result Body Mass Index 30.2 Const General: cooperative, comfortable, no acute distress, alert, awake, Physically active and well groomed Nutritional Appearance: overweight Orientation/consciousness: patient oriented x3 Limitations: no limitations Neck Neck: Yes trachea midline, Yes supple and Yes JVD Resp Effort & Inspection: normal respiratory effort Auscultation: crackles (coarse) bilateral at the base, no rales, wheezes and diminished lung sounds Cardio Jugular venous distension: no JVD Palpation: normal PMI Rate: regular rate Rhythm: abnormal rhythm irregularly irregular Heart sounds: S2 normal heart sound present, Murmur heart sound present systolic early and Other heart sounds present (Coffee opening and closing click of Saint Alex mitral valve) GI Inspection: Yes distended Auscultation: normal bowel sounds Skin General skin exam: no rashes or lesions noted Neuro General: patient oriented x3 and no focal motor deficits Extrem General: Yes no clubbing, cyanosis or edema Office Procedures Cardiac Device Check Cardiac Device Check Details: Single-chamber Medtronic pacemaker with atrial lead. Programmed in AAI at 50 beats per minute. Patient noted to be in atrial fibrillation at this point time. Atrial lead impedance is stable. Battery life is excellent [id number] Cardiac Device Check, leadless/single lead pacemaker Procedure code (CPT) selection complete EKG Details: EKG shows atrial fibrillation with nonspecific intraventricular conduction delay 86025-[id number], Complete Assessment & Plan Assessment & Plan (1) Persistent atrial fibrillation: Code(s): I48.19 - Other persistent atrial fibrillation Plan: Persistent atrial fibrillation this elderly woman with multiple cardiac comorbidities. She has not tolerating this well with increasing symptoms of shortness of breath. She has done extremely well with rhythm control approach over the years and now she is back in persistent atrial fibrillation causing heart failure symptoms. Clinically not in overt heart failure. She require repeat synchronized cardioversion and antiarrhythmic drug support. She has possible underlying fibrosis of the lung although this is unclear as she has not requiring oxygen currently after transcatheter aortic valve replacement and during that phase seem like all her symptoms related to decompensated congestive heart failure and improved after maintaining rhythm as well as transcatheter aortic valve replacement. Will discuss with Pulmonary about the same. However I think we can start on Tikosyn inpatient loading followed by synchronized cardioversion to help maintain rhythm. If Tikosyn is ineffective and if pulmonary creatinine may need to restart amiodarone therapy in the long run again. I have discussed the case with electrophysiology service to see her quickly and schedule her for upgrade to dual-chamber pacemaker and for hospitalization for Tikosyn initiation and followed by synchronized cardioversion. (2) Implantable loop recorder present: Code(s): Z95.818 - Presence of other cardiac implants and grafts Plan: Implantable loop recorder in place. Patient noted to have pauses. This is highly suggestive of AV conduction abnormality given her multiple comorbidities decide unlikely. Requires upgrade to a single-chamber pacemaker which is a atrial only pacemaker to an upgrade to dual-chamber pacemaker. Although there was difficulty in placing ventricular lead in the past. Discussed with electrophysiology service and they will see her soon to upgrade her pacemaker to involve ventricular pacing. 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 Continue full oral anticoagulation, currently on warfarin therapy. Maintain target INR between 2.5 and 3.5. SBE prophylaxis as per ACC/aha guidelines. (4) Status post transcatheter aortic valve replacement: Code(s): Z95.2 - Presence of prosthetic heart valve Plan: Status post transcatheter aortic valve replacement which clinically he is working well. Continue warfarin therapy as above. SBE prophylaxis as per ACC/aha guidelines. (5) Status post placement of cardiac pacemaker: Comment: Jun 20, 2023. Medtronic single chamber Code(s): Z95.0 - Presence of cardiac pacemaker Plan: Single-chamber pacemaker placed as ventricular lead was difficult to place in the past. Discussed with electrophysiology and various other options were discussed including re trying transtricuspid RV lead placement with left bundle pacing and/or coronary sinus lead placement. This was discussed with electrophysiology service and they will facilitate her hospitalization and treatment in near future. (6) (HFpEF) heart failure with preserved ejection fraction: Code(s): I50.30 - Unspecified diastolic (congestive) heart failure Qualifiers: Heart failure chronicity: chronic Qualified Code(s): I50.32 - Chronic diastolic (congestive) heart failure Plan: Heart failure preserved ejection fraction with worsening symptoms related to recurrent atrial fibrillation. She is done well with rhythm control approach in the past. Continue the same. Signs and symptoms of heart failure were discussed. Continue current diuretic regimen. Continue therapy with Jardiance as well. Daily weight monitoring avoidance of salt loading was discussed. Will follow up in the clinic in 6 weeks time. Greater than 45 minutes was spent in managing a complex care Medications: Discontinued flecainide Discontinued Reason: No Longer Medically Relevant 100 mg PO BID 180 tabs 3RF Coding Level of Care Code Est Pt Level 5 (39336) Diagnoses Persistent atrial fibrillation I48.19 Implantable loop recorder present Z95.818 Hx of mitral valve replacement Z95.2 Status post transcatheter aortic valve replacement Z95.2 Status post placement of cardiac pacemaker Z95.0 Chronic heart failure with preserved ejection fraction I50.32 Heart failure chronicity: chronic CPT Codes EKG - CPT: 45194-[id number], Complete ([id number]) Cardiac Device Check - Cardiac Device 1: [id number] Cardiac Device Check, leadless/single lead pacemaker ([id number])
== END 2023-11-04 14:09 | disposition home or self-care (01) ==
PROVIDERS: PCP Internal Medicine; Visit Provider Internal Medicine Cardiovascular Disease
DX: I48.19 Other persistent atrial fibrillation (principal)
CPT/HCPCS: 93010; 93279; 99215

== ENCOUNTER 2023-11-11 09:00 | Outpatient (AMB) | payer MEDICARE, MEDICAID, SELFPAY ==
[2023-11-11 09:07] VITALS: BP 119/67; PULSE 82; O2SAT 95; BMI 30.8
--- NOTE | 2023-11-11 09:07 | A.OFFVIS_ITS ---
Intake Vital Signs 11/11/23 09:07 Height 5 ft 2 in Weight 168 lb 10.458 oz BMI 30.8 BP 119/67 Blood Pressure Location Rt brachial Position Sitting Pulse 82 Pulse Source Doppler Pulse Oximetry (%) 95 Oxygen Delivery Method Room Air Intake Visit Reasons: hugh Intake Note: Patient is here to follow up on HUGH, patient c/o SOB on exertion. Allergies amiodarone Allergy (Intermediate, Verified 11/11/23 09:42) Swelling Medication List - Last Reconciled 11/11/23 by Mary Ellen Brumfield MD albuterol sulfate 90 mcg/actuation (Ventolin HFA) 2 puffs inhalation Q4-6H PRN atorvastatin 20 mg PO DAILY diltiazem HCl 120 mg PO DAILY empagliflozin (Jardiance) 10 mg PO DAILY ferrous sulfate 325 mg PO DAILY@1600 qqhqpeakjul-llbgnxurb-inmvvkxb 200-62.5-25 mcg (Trelegy Ellipta) 1 ea inhalation DAILY folic acid 1 mg PO DAILY furosemide 40 mg PO DAILY levothyroxine 25 mcg PO DAILY@0600 sertraline 200 mg PO DAILY warfarin 10 mg See Protocol PO FR warfarin 7.5 mg See Protocol PO SUMOTUWETHSA zolpidem 5 mg PO BEDTIME PRN Do you need a note to return to daycare/school/sports/work: No HPI hugh HPI Details This 68 years old very pleasant female comes for pulmonary follow-up after 3 months. Breathing singh she has been doing very well and luckily she has had no acute infection or exacerbation in the last 6 months. She uses CPAP along with O2 2 L/minute at night. She has not needed to use O2 during the daytime. Breathing status is well controlled with use of Trelegy Ellipta 1 inhalation daily and she hardly needs to use Ventolin. Patient tells me that she is having some issues with the pacemaker, for which she is being followed by Cardiology more closely. She does get short of breath when she walks up hill or climbs stairs , or more than 1 or 2 blocks on level ground. She has very little cough or wheezing. [facility] Medical History Persistent atrial fibrillation PAF (paroxysmal atrial fibrillation) Increasing shortness of breath Encounter for interrogation of cardiac pacemaker Subtherapeutic international normalized ratio (INR) Heart failure Cardiac pacemaker Nocturnal hypoxemia (~08/15/23) Sinus pause History of cardioversion Interstitial lung disease COPD (chronic obstructive pulmonary disease) Pulmonary nodule Atrial flutter with rapid ventricular response Atrial fibrillation with rapid ventricular response COPD (chronic obstructive pulmonary disease) Exercise hypoxemia Interstitial lung disease Bronchitis due to Staphylococcus aureus History of transcatheter aortic valve replacement (TAVR) Acute diastolic CHF (congestive heart failure) Paroxysmal atrial fibrillation Abnormal EKG Hypoxia Interstitial lung disease Anemia Atrial flutter Obesity (HFpEF) heart failure with preserved ejection fraction Aortic stenosis Current use of anticoagulant therapy Surgical History Status post transcatheter aortic valve replacement Hx of mitral valve replacement (~2004) Status post placement of cardiac pacemaker H/O heart surgery History of sleeve gastrectomy (~2017) Hx of transesophageal echocardiography (SHELIA) for monitoring (~2015) Hx of section Family History Father No problems noted. Mother CVD (cardiovascular disease) Social History Household Members: Family Housing: House Do you presently have visiting nurse or other home services: Yes Alcohol intake: never Patient Tobacco Use Status: Former Tobacco user Quit Date: 2012 Tobacco use type: Cigarette Years Smoked: 29 e-Cigarette/Vaping Use: Never Used Second Hand Smoke Exposure: No Advance Directives Date on File: 08/28/22 service: No Current occupational status: disabled Review of Systems Const All systems reviewed & are unremarkable except as noted in HPI and below Reports fatigue and Reports lethargy Eyes Reports no additional complaints ENT Reports no additional complaints Card Denies chest pain, Denies irregular heart rhythm, Denies leg edema and Reports dyspnea on exertion Resp Reports as per HPI and Reports dyspnea on exertion GI Reports no additional complaints Reports no additional complaints Musc Reports no additional complaints Skin/Breast Reports system reviewed and no additional complaints, except as documented Neuro Reports no additional complaints Psych Reports depression (Controlled with sertraline) Endo Reports fatigue and Reports other (Being treated for hypothyroidism) Physical Exam Vital Signs: Last Vital Signs Pulse 82 11/11/23 09:07 BP 119/67 11/11/23 09:07 Pulse Ox 95 11/11/23 09:07 Oxygen Delivery Method Room Air 11/11/23 09:07 BMI result Body Mass Index 30.8 Const General: comfortable (But short of breath), no acute distress, alert and awake Orientation/consciousness: patient oriented x3 HEENT Head: Yes normal to inspection General nose exam: No nasal polyps present and No nasal discharge present Face and sinus: Yes sinuses nontender Mouth: oropharynx normal Throat: Yes posterior oropharynx normal Eyes General: appearance normal, both eyes and all related structures Neck Neck: Yes normal visual inspection, Yes no lymphadenopathy, Yes trachea midline and Yes no JVD Thyroid: Thyroid normal Chest Chest palpation & inspection: abnormal inspection of the chest (Midline scar from previous cardiac surgery), normal palpation of entire chest wall and no tenderness Resp Other: Breath sounds are distant but equal on both sides. Prolonged expiratory phase, No wheezes rhonchi or crepitations are heard today. Cardio Palpation: normal PMI Rate: regular rate Rhythm: regular rhythm Heart sounds: no gallops and no murmurs GI Palpation (GI): Soft to palpation, nontender, No hepatosplenomegaly present and no masses Auscultation: normal bowel sounds Back/Spine/Pelvis Thoracic/Lumbar Spine: thoracic and lumbar spine normal to inspection Skin General skin exam: no rashes or lesions noted Neuro General: patient oriented x3 and no focal motor deficits Cranial nerves: Yes CN's II-XII intact bilaterally Extrem General: Yes normal to inspection, Yes no clubbing, cyanosis or edema and Yes no calf tenderness Psych Appearance: grossly normal and well kempt Speech and movement: Normal speech and movement present Assessment & Plan Assessment & Plan (1) COPD (chronic obstructive pulmonary disease): Comment: This patient being treated for chronic obstructive pulmonary disease. It remains quite stable and well controlled. Code(s): J44.9 - Chronic obstructive pulmonary disease, unspecified Plan: PLAN , continue present medications. TX: Uses Trelegy 1 inhalation daily , which will continue Also may use the Ventolin HFA 1 or 2 puffs Q 4-6 hours p.r.n.. (2) Interstitial lung disease: Comment: Patient has had history of interstitial lung disease, which was considered to be due to amiodarone. The last CT scan has shown marked improvement , but there is still residual but minimal interstitial lung disease. CLINICALLY I DO NOT THINK SHE HAS ANY RESIDUAL ILD AT THIS TIME. Code(s): J84.9 - Interstitial pulmonary disease, unspecified Plan: as above (3) Nocturnal hypoxemia: Onset Date: ~08/15/23 Comment: ON THE BASELINE STUDY PATIENT DID HAVE NOCTURNAL HYPOXEMIA. IT WAS CORRECTED WITH THE CPAP AT PRESSURE. OF 7 CM HOWEVER PATIENT IS STILL PUTTING ON THE OXYGEN AT NIGHT ALONG WITH THE CPAP, I TOLD HER NOT TO EXCEED 2 L/MINUTE. Code(s): G47.34 - Idiopathic sleep related nonobstructive alveolar hypoventilation Plan: as above (4) Obstructive sleep apnea: Comment: Patient is a confirmed case of obstructive sleep apnea, She is very regular user of CPAP and is benefiting. Compliance is excellent, on some nights she uses CPAP up to 10 Hrs , Code(s): G47.33 - Obstructive sleep apnea (adult) (pediatric) Plan: Commended for good compliance and advised to continue using the CPAP. Regularly (5) Exercise hypoxemia: Comment: This patient has documented hypoxemia on exertion. As she feels better she is not using the oxygen all the times when She walks or goes outdoors Code(s): R09.02 - Hypoxemia Plan: Advised to use portable oxygen if she feels more short of breath on going outdoors . Coding Level of Care Code Est Pt Level 4 (07093) Diagnoses COPD (chronic obstructive pulmonary disease) J44.9 Interstitial lung disease J84.9 Nocturnal hypoxemia G47.34 Obstructive sleep apnea G47.33 Exercise hypoxemia R09.02
== END 2023-11-11 09:41 | disposition home or self-care (01) ==
PROVIDERS: PCP Internal Medicine; Visit Provider Internal Medicine
DX: J44.9 Chronic obstructive pulmonary disease, unspecified (principal); J84.9 Interstitial pulmonary disease, unspecified; G47.34 Idiopathic sleep related nonobstructive alveolar hypoventilation; G47.33 Obstructive sleep apnea (adult) (pediatric); R09.02 Hypoxemia
CPT/HCPCS: 99214

== ENCOUNTER → 2023-11-11 09:00 | Outpatient (BNVA) | payer MEDICARE, MEDICAID, SELFPAY | PROVIDERS: PCP Internal Medicine; Visit Provider Internal Medicine | DX: G47.33 Obstructive sleep apnea (adult) (pediatric) (principal); G47.34 Idiopathic sleep related nonobstructive alveolar hypoventilation; J44.9 Chronic obstructive pulmonary disease, unspecified; J84.9 Interstitial pulmonary disease, unspecified; R09.02 Hypoxemia | CPT/HCPCS: 99212 ==

== ENCOUNTER 2023-11-13 10:04 | Outpatient (REF) | payer MEDICARE, MEDICAID, SELFPAY ==
[2023-11-13 14:49] LABS: Anion Gap 13 (12-20); Blood Urea Nitrogen 14 mg/dL (9-16); Calcium 9.8 mg/dL (8.4-10.2); Carbon Dioxide 26 mmol/L (22-29); Chloride 105 mmol/L (96-108); Cholesterol 165 mg/dL (<200); Estimated Glomerular Filt Rate > 60; Glucose Random 92 mg/dL (60-115); HDL Cholesterol 63 mg/dL (>40); LDL Cholesterol Calculated 87 mg/dL (<100); Potassium 3.6 mmol/L (3.3-5.1); Sodium 140 mmol/L (135-145); Triglycerides 76 mg/dL (<150)
[2023-11-14 04:22] LABS: ~HepC Num1 0.22 S/CO (0.00-0.79); ~Hepatitis C Antibody Nonreactive (Nonreactive)
== END 2023-11-13 10:05 | disposition home or self-care (01) ==
LOC: HO.CHCLDS 10:04
PROVIDERS: Visit Provider Internal Medicine
DX: J43.8 Other emphysema (principal); I10 Essential (primary) hypertension; I48.19 Other persistent atrial fibrillation; Z95.3 Presence of xenogenic heart valve
CPT/HCPCS: 36415; 80048; 80061; 84443; 86803

== ENCOUNTER 2023-11-20 08:43 | Outpatient (AMB) | payer MEDICARE, MEDICAID, SELFPAY ==
--- NOTE | 2023-11-20 08:52 | MHC.OFFVISCO ---
Intake Intake Visit Reasons: Anticoagulation Allergies amiodarone Allergy (Intermediate, Verified 11/20/23 08:49) Swelling Medication List - Last Reconciled 11/20/23 by Fannie Thomason RN albuterol sulfate 90 mcg/actuation (Ventolin HFA) 2 puffs inhalation Q4-6H PRN atorvastatin 20 mg PO DAILY diltiazem HCl 120 mg PO DAILY empagliflozin (Jardiance) 10 mg PO DAILY ferrous sulfate 325 mg PO DAILY@1600 evocylcoqex-wqltfmink-njnhjemt 200-62.5-25 mcg (Trelegy Ellipta) 1 ea inhalation DAILY folic acid 1 mg PO DAILY furosemide 40 mg PO DAILY levothyroxine 25 mcg PO DAILY@0600 sertraline 200 mg PO DAILY warfarin 10 mg See Protocol PO FR warfarin 7.5 mg See Protocol PO SUMOTUWETHSA zolpidem 5 mg PO BEDTIME PRN Nursing Note INR 3.6-? out of therapeutic range- 2.5-3.5 Medications and supplements reviewed Patient status: no c.o Medications or supplements: no c.o Diet: same Denies any signs and symptoms of bleeding or clotting or unusual bruising Bleeding, bruising, clotting discussed Nutritional guidance given: eat greens for 2 days Dose: 10mg x 1, 7.5mg x 6 F/U INR Date : 2 weeks? Patient verbalizing understanding of instructions given. Anti-Coag Initial Assessment Social Hx Patient Tobacco Use Status: Former Tobacco user Quit Date: 2012 Tobacco use type: Cigarette alcohol intake: never Alcohol intake frequency: holidays/special occasions only Coding Level of Care Code Est Patient Level 1 Diagnoses Current use of anticoagulant therapy Z79.01 Results AMB INR Fingerstick AMB INR Fingerstick 3.6 Last Edit by Fannie Thomason RN on 11/20/23 08:54 Assessment & Plan Assessment & Plan (1) Current use of anticoagulant therapy: Code(s): Z79.01 - intermediate (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
[2023-11-20 08:57] LABS: Prothrombin Time Whole Bld POC 43.7 sec (11.1-13.5); ~PT, ~INR - Anti Coag Clinic 3.6 (0.9-1.1)
== END 2023-11-20 09:18 | disposition home or self-care (01) ==
LOC: HO.ACS 08:43
PROVIDERS: PCP Internal Medicine; Visit Provider Internal Medicine
DX: Z79.01 Long term (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 (principal)

== ENCOUNTER → 2023-11-20 08:43 | Outpatient (BNVA) | payer MEDICARE, MEDICAID, SELFPAY | PROVIDERS: PCP Internal Medicine; Visit Provider Internal Medicine | DX: Z95.2 Presence of prosthetic heart valve (principal); Z79.01 Long term (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; Z51.81 Encounter for therapeutic drug level monitoring | CPT/HCPCS: 85610; 99211 ==

== ENCOUNTER → 2023-11-29 23:59 | Outpatient (BNV) | payer MEDICARE, MEDICAID, SELFPAY ==
--- NOTE | 2023-12-02 16:18 | A.OFFVIS_ITS ---
Intake Intake Visit Reasons: Remote ILR Check- Medtronic Allergies amiodarone Allergy (Intermediate, Verified 11/20/23 08:49) Swelling [facility] Medical History Persistent atrial fibrillation PAF (paroxysmal atrial fibrillation) Increasing shortness of breath Encounter for interrogation of cardiac pacemaker Subtherapeutic international normalized ratio (INR) Heart failure Cardiac pacemaker Nocturnal hypoxemia (~08/15/23) Sinus pause History of cardioversion Interstitial lung disease COPD (chronic obstructive pulmonary disease) Pulmonary nodule Atrial flutter with rapid ventricular response Atrial fibrillation with rapid ventricular response COPD (chronic obstructive pulmonary disease) Exercise hypoxemia Interstitial lung disease Bronchitis due to Staphylococcus aureus History of transcatheter aortic valve replacement (TAVR) Acute diastolic CHF (congestive heart failure) Paroxysmal atrial fibrillation Abnormal EKG Hypoxia Interstitial lung disease Anemia Atrial flutter Obesity (HFpEF) heart failure with preserved ejection fraction Aortic stenosis Current use of anticoagulant therapy Surgical History Status post transcatheter aortic valve replacement Hx of mitral valve replacement (~2004) Status post placement of cardiac pacemaker H/O heart surgery History of sleeve gastrectomy (~2017) Hx of transesophageal echocardiography (SHELIA) for monitoring (~2015) Hx of section Family History Father No problems noted. Mother CVD (cardiovascular disease) Social History Household Members: Family Housing: House Do you presently have visiting nurse or other home services: Yes Alcohol intake: never Patient Tobacco Use Status: Former Tobacco user Quit Date: 2012 Tobacco use type: Cigarette Years Smoked: 29 e-Cigarette/Vaping Use: Never Used Second Hand Smoke Exposure: No Advance Directives Date on File: 08/28/22 service: No Current occupational status: disabled Office Procedures Cardiac Device Check Cardiac Device Check Details: Remote implantable loop recorder report generated 11/29/2023. Increased burden of atrial fibrillation to 11.4%. Five pauses noted greater than 3 seconds. [id number] Cardiac Interrogation, subcut cardiac rhythm monitor Procedure code (CPT) selection complete Assessment & Plan Assessment & Plan (1) Implantable loop recorder present: Code(s): Z95.818 - Presence of other cardiac implants and grafts Plan: See above Coding Level of Care Code Procedure Only Diagnoses Implantable loop recorder present Z95.818 CPT Codes Cardiac Device Check - Cardiac Device 16: [id number] Cardiac Interrogation, subcut cardiac rhythm monitor ([id number])
== END ==
PROVIDERS: PCP Internal Medicine; Visit Provider Internal Medicine Cardiovascular Disease
DX: I48.0 Paroxysmal atrial fibrillation (principal); Z95.818 Presence of other cardiac implants and grafts
CPT/HCPCS: 93298

== ENCOUNTER 2023-12-04 08:36 | Outpatient (AMB) | payer MEDICARE, MEDICAID, SELFPAY ==
--- NOTE | 2023-12-04 08:51 | MHC.OFFVISCO ---
Intake Intake Visit Reasons: Anticoagulation Allergies amiodarone Allergy (Intermediate, Verified 12/04/23 08:45) Swelling Medication List - Last Reconciled 12/04/23 by Fannie Thomason RN albuterol sulfate 90 mcg/actuation (Ventolin HFA) 2 puffs inhalation Q4-6H PRN atorvastatin 20 mg PO DAILY diltiazem HCl 120 mg PO DAILY empagliflozin (Jardiance) 10 mg PO DAILY ferrous sulfate 325 mg PO DAILY@1600 gnzmrhnbvhb-dxetxazjc-imupeuen 200-62.5-25 mcg (Trelegy Ellipta) 1 ea inhalation DAILY folic acid 1 mg PO DAILY furosemide 40 mg PO DAILY levothyroxine 25 mcg PO DAILY@0600 sertraline 200 mg PO DAILY warfarin 10 mg See Protocol PO FR warfarin 7.5 mg See Protocol PO SUMOTUWETHSA zolpidem 5 mg PO BEDTIME PRN Nursing Note INR: 3.1- in therapeutic range of 2.5-3.5 Medications and supplements reviewed- no changes No changes in health, diet, medications, or supplements, Denies any signs and symptoms of bleeding or bruising or clotting. Bleeding, bruising, clotting discussed Nutritional guidance given Dose: 10mg x 1, 7.5mg x 6 F/U INR: 2 weeks Patient verbalizes understanding of instructions given pacemaker change 12/25/23- pt req acs appt 12/24/23 Anti-Coag Initial Assessment Social Hx Patient Tobacco Use Status: Former Tobacco user Quit Date: 2012 Tobacco use type: Cigarette alcohol intake: never Alcohol intake frequency: holidays/special occasions only Coding Level of Care Code Est Patient Level 1 Diagnoses Current use of anticoagulant therapy Z79.01 Assessment & Plan Assessment & Plan (1) Current use of anticoagulant therapy: Code(s): 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
[2023-12-04 08:52] LABS: Prothrombin Time Whole Bld POC 36.6 sec (11.1-13.5); ~PT, ~INR - Anti Coag Clinic 3.1 (0.9-1.1)
== END 2023-12-04 08:59 | disposition home or self-care (01) ==
LOC: HO.ACS 08:36
PROVIDERS: PCP Internal Medicine; Visit Provider Internal Medicine
DX: Z79.01 Long term (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 (principal)

== ENCOUNTER → 2023-12-04 08:36 | Outpatient (BNVA) | payer MEDICARE, MEDICAID, SELFPAY | PROVIDERS: PCP Internal Medicine; Visit Provider Internal Medicine | DX: Z95.2 Presence of prosthetic heart valve (principal); Z79.01 Long term (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; Z51.81 Encounter for therapeutic drug level monitoring | CPT/HCPCS: 85610; 99211 ==

== ENCOUNTER 2023-12-18 08:28 | Outpatient (AMB) | payer MEDICARE, MEDICAID, SELFPAY ==
[2023-12-18 08:42] LABS: Prothrombin Time Whole Bld POC 36.8 sec (11.1-13.5); ~PT, ~INR - Anti Coag Clinic 3.1 (0.9-1.1)
--- NOTE | 2023-12-18 08:50 | MHC.OFFVISCO ---
Intake Intake Visit Reasons: Anticoagulation Allergies amiodarone Allergy (Intermediate, Verified 12/18/23 08:37) Swelling Medication List - Last Reconciled 12/18/23 by Meseret Conde RN albuterol sulfate 90 mcg/actuation (Ventolin HFA) 2 puffs inhalation Q4-6H PRN atorvastatin 20 mg PO DAILY diltiazem HCl 120 mg PO DAILY empagliflozin (Jardiance) 10 mg PO DAILY ferrous sulfate 325 mg PO DAILY@1600 zsavuiyjfqg-sajueillk-tsrkansn 200-62.5-25 mcg (Trelegy Ellipta) 1 ea inhalation DAILY folic acid 1 mg PO DAILY furosemide 40 mg PO DAILY levothyroxine 25 mcg PO DAILY@0600 sertraline 200 mg PO DAILY warfarin 10 mg See Protocol PO FR warfarin 7.5 mg See Protocol PO SUMOTUWETHSA zolpidem 5 mg PO BEDTIME PRN Nursing Note PT.TO HAVE PACER CHANGE ON 12/25. WILL NOT HOLD WARFARIN PER MD. IN MEANTIME WILL CONTINUE USUAL DOSE AND FOLLOW-UP HERE ON 12/24. NO CP,SOB,DIET/MED CHANGES OR SX OF BLEEDING. GOOD UNDERSTANDING OF DOSING INSTR. 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
== END 2023-12-18 08:53 | disposition home or self-care (01) ==
LOC: HO.ACS 08:28
PROVIDERS: PCP Internal Medicine; Visit Provider Internal Medicine
DX: Z79.01 Long term (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 (principal)

== ENCOUNTER → 2023-12-18 08:28 | Outpatient (BNVA) | payer MEDICARE, MEDICAID, SELFPAY | PROVIDERS: PCP Internal Medicine; Visit Provider Internal Medicine | DX: Z95.2 Presence of prosthetic heart valve (principal); Z79.01 Long term (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; Z51.81 Encounter for therapeutic drug level monitoring | CPT/HCPCS: 85610; 99211 ==

== ENCOUNTER 2023-12-24 07:54 | Outpatient (AMB) | payer MEDICARE, MEDICAID, SELFPAY ==
--- NOTE | 2023-12-24 08:10 | MHC.OFFVISCO ---
Intake Intake Visit Reasons: Anticoagulation Allergies amiodarone Allergy (Intermediate, Verified 12/24/23 08:04) Swelling Medication List - Last Reconciled 12/24/23 by Fannie Thomason RN albuterol sulfate 90 mcg/actuation (Ventolin HFA) 2 puffs inhalation Q4-6H PRN atorvastatin 20 mg PO DAILY diltiazem HCl 120 mg PO DAILY empagliflozin (Jardiance) 10 mg PO DAILY ferrous sulfate 325 mg PO DAILY@1600 sultztdkvqx-virbjtgps-lapppdqe 200-62.5-25 mcg (Trelegy Ellipta) 1 ea inhalation DAILY folic acid 1 mg PO DAILY furosemide 40 mg PO DAILY levothyroxine 25 mcg PO DAILY@0600 sertraline 200 mg PO DAILY warfarin 10 mg See Protocol PO FR warfarin 7.5 mg See Protocol PO SUMOTUWETHSA zolpidem 5 mg PO BEDTIME PRN Nursing Note INR: 3.5- in therapeutic range of 2.5-3.5 Medications and supplements reviewed No changes in health, diet, medications, or supplements, Denies any signs and symptoms of bleeding or bruising or clotting. Bleeding, bruising, clotting discussed - pt states some rectal bleed only after eating pistachios. Nutritional guidance given - will eat broccolli to lower inr Dose: 7.5mg x 6, 10mg x 1. F/U INR: pt req 01/02/24 Patient verbalizes understanding of instructions given pt states pacemaker change [facility] [place] [facility] cardiology- she states does not need to hold warfarin prior. pt will eat broccolli tonight- and she states they will check inr prior to proc Anti-Coag Initial Assessment Social Hx Patient Tobacco Use Status: Former Tobacco user Quit Date: 2012 Tobacco use type: Cigarette alcohol intake: never Alcohol intake frequency: holidays/special occasions only Coding Level of Care Code Est Patient Level 1 Diagnoses Current use of anticoagulant therapy Z79.01 Assessment & Plan Assessment & Plan (1) Current use of anticoagulant therapy: Code(s): Z79.01 - residential (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 Medications: Changed From warfarin 10 mg See Protocol PO FR To warfarin on saturday 10 mg See Protocol PO QWEEK From warfarin 7.5 mg See Protocol PO SUMOTUWETHSA To warfarin 7.5 mg See Protocol PO 6XW
[2023-12-24 08:11] LABS: Prothrombin Time Whole Bld POC 41.5 sec (11.1-13.5); ~PT, ~INR - Anti Coag Clinic 3.5 (0.9-1.1)
== END 2023-12-24 08:16 | disposition home or self-care (01) ==
LOC: HO.ACS 07:54
PROVIDERS: PCP Internal Medicine; Visit Provider Internal Medicine
DX: Z79.01 Long term (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 (principal)

== ENCOUNTER → 2023-12-24 07:54 | Outpatient (BNVA) | payer MEDICARE, MEDICAID, SELFPAY | PROVIDERS: PCP Internal Medicine; Visit Provider Internal Medicine | DX: Z95.2 Presence of prosthetic heart valve (principal); Z79.01 Long term (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; Z51.81 Encounter for therapeutic drug level monitoring | CPT/HCPCS: 85610; 99211 ==

== ENCOUNTER → 2023-12-26 23:59 | Outpatient (BNV) | payer MEDICARE, MEDICAID, SELFPAY ==
--- NOTE | 2023-12-30 08:31 | A.OFFVIS_ITS ---
Intake Intake Visit Reasons: Remote Device Check- Medtronic Allergies amiodarone Allergy (Intermediate, Verified 12/24/23 08:04) Swelling [facility] Medical History Persistent atrial fibrillation PAF (paroxysmal atrial fibrillation) Increasing shortness of breath Encounter for interrogation of cardiac pacemaker Subtherapeutic international normalized ratio (INR) Heart failure Cardiac pacemaker Nocturnal hypoxemia (~08/15/23) Sinus pause History of cardioversion Interstitial lung disease COPD (chronic obstructive pulmonary disease) Pulmonary nodule Atrial flutter with rapid ventricular response Atrial fibrillation with rapid ventricular response COPD (chronic obstructive pulmonary disease) Exercise hypoxemia Interstitial lung disease Bronchitis due to Staphylococcus aureus History of transcatheter aortic valve replacement (TAVR) Acute diastolic CHF (congestive heart failure) Paroxysmal atrial fibrillation Abnormal EKG Hypoxia Interstitial lung disease Anemia Atrial flutter Obesity (HFpEF) heart failure with preserved ejection fraction Aortic stenosis Current use of anticoagulant therapy Surgical History Status post transcatheter aortic valve replacement Hx of mitral valve replacement (~2004) Status post placement of cardiac pacemaker H/O heart surgery History of sleeve gastrectomy (~2017) Hx of transesophageal echocardiography (SHELIA) for monitoring (~2015) Hx of section Family History Father No problems noted. Mother CVD (cardiovascular disease) Social History Household Members: Family Housing: House Do you presently have visiting nurse or other home services: Yes Alcohol intake: never Patient Tobacco Use Status: Former Tobacco user Quit Date: 2012 Tobacco use type: Cigarette Years Smoked: 29 e-Cigarette/Vaping Use: Never Used Second Hand Smoke Exposure: No Advance Directives Date on File: 08/28/22 service: No Current occupational status: disabled Office Procedures Cardiac Device Check Cardiac Device Check Details: Remote dual-chamber pacemaker report generated 12/26/2023. Pacemaker function is adequate. No episodes of atrial fibrillation noted. Atrial pacing 99% of time [id number] Cardiac Device Interrogation, pacemaker Procedure code (CPT) selection complete Assessment & Plan Assessment & Plan (1) Status post placement of cardiac pacemaker: Comment: Jun 20, 2023. Medtronic single chamber Code(s): Z95.0 - Presence of cardiac pacemaker Plan: See above Coding Level of Care Code Procedure Only Diagnoses Status post placement of cardiac pacemaker Z95.0 CPT Codes Cardiac Device Check - Cardiac Device 12: [id number] Cardiac Device Interrogation, pacemaker ([id number])
== END ==
PROVIDERS: PCP Internal Medicine; Visit Provider Internal Medicine Cardiovascular Disease
DX: I48.19 Other persistent atrial fibrillation (principal); Z95.0 Presence of cardiac pacemaker
CPT/HCPCS: 93294

== ENCOUNTER 2024-01-02 08:01 | Outpatient (AMB) | payer MEDICARE, MEDICAID, SELFPAY ==
[2024-01-02 08:12] LABS: Prothrombin Time Whole Bld POC 31.3 sec (11.1-13.5); ~PT, ~INR - Anti Coag Clinic 2.6 (0.9-1.1)
--- NOTE | 2024-01-02 08:20 | MHC.OFFVISCO ---
Intake Intake Visit Reasons: Anticoagulation Allergies amiodarone Allergy (Intermediate, Verified 01/02/24 08:04) Swelling Medication List - Last Reconciled 01/02/24 by Cynthia Morrissey RN albuterol sulfate 90 mcg/actuation (Ventolin HFA) 2 puffs inhalation Q4-6H PRN atorvastatin 20 mg PO DAILY diltiazem HCl 120 mg PO DAILY empagliflozin (Jardiance) 10 mg PO DAILY ferrous sulfate 325 mg PO DAILY@1600 oewrosuxeuf-kjyhekdhf-ucmcrnwp 200-62.5-25 mcg (Trelegy Ellipta) 1 ea inhalation DAILY folic acid 1 mg PO DAILY furosemide 40 mg PO DAILY levothyroxine 25 mcg PO DAILY@0600 sertraline 200 mg PO DAILY sotalol 80 mg PO BID warfarin 10 mg See Protocol PO QWEEK warfarin 7.5 mg See Protocol PO 6XW zolpidem 5 mg PO BEDTIME PRN Nursing Note INR: 2.6 in therapeutic range S/P PACEMAKER REPLACEMENT 01/23/24- site is clean and dry - offers no complaints *states she is leaving for [place] 01/05/24 and will return 01/16/24 Medications and supplements reviewed- SHE IS GOING TO VERIFY HER CARDIAC MEDS TODAY Denies any signs and symptoms of bleeding or bruising or clotting. Bleeding, bruising, clotting discussed Nutritional guidance given - review food list and eat a mix of fruits and vegetables, avoid greens x 2 days to make sure INR remains in range Dose: keep same 10mg x 1 day/ 7.5mg x 6 days F/U INR: 01/20/24 same day as other appts Patient verbalizes understanding of instructions given Anti-Coag Initial Assessment Social Hx Patient Tobacco Use Status: Former Tobacco user Quit Date: 2012 Tobacco use type: Cigarette alcohol intake: never Alcohol intake frequency: holidays/special occasions only Coding Level of Care Code Est Patient Level 1 Diagnoses Current use of anticoagulant therapy Z79.01 Assessment & Plan Assessment & Plan (1) Current use of anticoagulant therapy: Code(s): Z79.01 - skilled nursing (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
== END 2024-01-02 08:23 | disposition home or self-care (01) ==
LOC: HO.ACS 08:01
PROVIDERS: PCP Internal Medicine; Visit Provider Internal Medicine
DX: Z79.01 Long term (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 (principal)

== ENCOUNTER → 2024-01-02 08:01 | Outpatient (BNVA) | payer MEDICARE, MEDICAID, SELFPAY | PROVIDERS: PCP Internal Medicine; Visit Provider Internal Medicine | DX: Z95.2 Presence of prosthetic heart valve (principal); Z79.01 Long term (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; Z51.81 Encounter for therapeutic drug level monitoring | CPT/HCPCS: 85610; 99211 ==

== ENCOUNTER 2024-01-20 08:26 | Outpatient (AMB) | payer MEDICARE, MEDICAID, SELFPAY ==
[2024-01-20 08:30] VITALS: BP 120/80; PULSE 70; BMI 31.4
--- NOTE | 2024-01-20 08:30 | A.OFFVIS_ITS ---
Intake Vital Signs 01/20/24 08:30 Height 5 ft 2 in Weight 171 lb 15.369 oz BMI 31.4 BP 120/80 Blood Pressure Location Lt brachial Position Sitting Pulse 70 Intake Visit Reasons: 6 month follow-up with ekg and medtronic Intake Note: 6 month follow-up with ekg and medtronic c/o increased sob Ortho Nurse Required: No Allergies amiodarone Allergy (Intermediate, Verified 01/02/24 08:04) Swelling Medication List - Last Reconciled 01/20/24 by Luis Antonio Nelson MD albuterol sulfate 90 mcg/actuation (Ventolin HFA) 2 puffs inhalation Q4-6H PRN atorvastatin 20 mg PO DAILY empagliflozin (Jardiance) 10 mg PO DAILY ferrous sulfate 325 mg PO DAILY@1600 dmaxywveguv-aostylkaf-qxyzgopx 200-62.5-25 mcg (Trelegy Ellipta) 1 ea inhalation DAILY furosemide 20 mg PO DAILY levothyroxine 25 mcg PO DAILY@0600 sertraline 200 mg PO DAILY sotalol 80 mg PO BID warfarin 2.5 mg See Protocol PO QWEEK zolpidem 5 mg PO BEDTIME PRN HPI HPI Comments History of Present Illness Details Nubia comes for follow-up. Patient is still feeling short of breath. Especially when she is laying down at nighttime. She gets short of breath with exercise. She was taking extra Lasix while she was in [place]. She said while walking the beach she was having more trouble breathing. Also noted that she had episodes of atrial fibrillation lasting for total of 4 days since January 06. She does not clearly feel these atrial fibrillation episodes. She said she has gained weight and mostly feels distension in her stomach. She has no leg edema. She has no lightheadedness, syncope. She had a pacemaker upgrade to a dual- chamber pacemaker with the ventricular lead on January 01. She thought she had feel a lot better since the pacemaker upgrade. However she was not having symptoms related to pauses which is suspected to be due to AV block and were mostly happening at nighttime. Denies any bleeding issues or neurologic events. [facility] Medical History (Updated 01/20/24 @ 09:18 by Luis Antonio Nelson MD) Implantable loop recorder present Persistent atrial fibrillation PAF (paroxysmal atrial fibrillation) Increasing shortness of breath Encounter for interrogation of cardiac pacemaker Subtherapeutic international normalized ratio (INR) Heart failure Cardiac pacemaker Nocturnal hypoxemia (~08/15/23) Sinus pause History of cardioversion Interstitial lung disease COPD (chronic obstructive pulmonary disease) Pulmonary nodule Atrial flutter with rapid ventricular response COPD (chronic obstructive pulmonary disease) Exercise hypoxemia Interstitial lung disease Bronchitis due to Staphylococcus aureus History of transcatheter aortic valve replacement (TAVR) Acute diastolic CHF (congestive heart failure) Paroxysmal atrial fibrillation Abnormal EKG Hypoxia Interstitial lung disease Anemia Atrial flutter Obesity (HFpEF) heart failure with preserved ejection fraction Aortic stenosis Current use of anticoagulant therapy Surgical History Status post transcatheter aortic valve replacement Hx of mitral valve replacement (~2004) Status post placement of cardiac pacemaker H/O heart surgery History of sleeve gastrectomy (~2017) Hx of transesophageal echocardiography (SHELIA) for monitoring (~2015) Hx of section Family History Father No problems noted. Mother CVD (cardiovascular disease) Social History Household Members: Family Housing: House Do you presently have visiting nurse or other home services: Yes Alcohol intake: never Patient Tobacco Use Status: Former Tobacco user Quit Date: 2012 Tobacco use type: Cigarette Years Smoked: 29 e-Cigarette/Vaping Use: Never Used Second Hand Smoke Exposure: No Advance Directives Date on File: 08/28/22 service: No Current occupational status: disabled Review of Systems Const Denies chills, Denies fatigue, Denies fever(s), Denies frequent falls, Denies weakness, Denies weight gain and Denies weight loss ENT Denies dizziness Card Denies chest pain, Denies leg edema, Denies lightheadedness, Denies palpitations, Denies dyspnea, Denies dyspnea on exertion, Denies orthopnea and Denies other (loss of consciousness) Resp Denies cough, Denies dyspnea and Denies dyspnea on exertion GI Denies hematochezia and Denies change in stool character Musc Denies abnormal gait, Denies muscle weakness, Denies numbness, Denies radiating pain into limb and Denies tingling Neuro Denies abnormal gait, Denies dizziness, Denies frequent falls, Denies numbness, Denies tingling and Denies weakness Endo Denies fatigue and Denies palpitations Physical Exam Vital Signs: Last Vital Signs Pulse 70 01/20/24 08:30 BP 120/80 01/20/24 08:30 BMI result Body Mass Index 31.4 Const General: cooperative, comfortable, no acute distress, alert, awake, Physically active and well groomed Nutritional Appearance: overweight Orientation/consciousness: patient oriented x3 Limitations: no limitations Neck Neck: Yes trachea midline, Yes supple and Yes JVD Resp Effort & Inspection: normal respiratory effort Auscultation: crackles (coarse) bilateral at the base, no rales, wheezes and diminished lung sounds Cardio Jugular venous distension: no JVD Palpation: normal PMI Rate: regular rate Rhythm: abnormal rhythm irregularly irregular Heart sounds: S2 normal heart sound present, Murmur heart sound present systolic early and Other heart sounds present ([place]aver opening and closing click of Saint Alex mitral valve) GI Inspection: Yes distended Auscultation: normal bowel sounds Skin General skin exam: no rashes or lesions noted Neuro General: patient oriented x3 and no focal motor deficits Extrem General: Yes no clubbing, cyanosis or edema Office Procedures Cardiac Device Check Cardiac Device Check Details: Dual-chamber Medtronic pacemaker in place. Programmed in MVP mode. Rate response was turned on to improve chronotropic competence. Atrial pacing thresholds excellent and reprogrammed to enhance battery life. Ventricular pacing thresholds are out of box and well and reprogrammed to enhance battery life. Multiple episodes of atrial fibrillation noted with total burden of 35%. Lead impedance is stable. Battery life is excellent at 15 years [id number] Cardiac Device Check, pacemaker dual lead Procedure code (CPT) selection complete EKG Details: EKG shows atrially paced, ventricularly sensed rhythm with nonspecific ST T wave changes suggestive of repolarization abnormality with normal QT interval [id number], Complete Assessment & Plan Assessment & Plan (1) (HFpEF) heart failure with preserved ejection fraction: Code(s): I50.30 - Unspecified diastolic (congestive) heart failure Qualifiers: Heart failure chronicity: chronic Qualified Code(s): I50.32 - Chronic diastolic (congestive) heart failure Plan: Heart failure with preserved ejection fraction with increased symptoms of shortness of breath. She is on 20 mg of Lasix. Has symptoms of orthopnea. Not currently in atrial fibrillation, so not sure if her symptoms are driven by increased burden of atrial fibrillation or worsening heart failure syndrome. She is on Jardiance 10 mg, continue the same. I have taken the liberty to increase her Lasix to 40 mg daily. Advised daily weight monitoring avoidance of salt loading she will lose some weight along the way and discussed with her. Additional diuretics as need be. Will check BMP and BNP today. Continue pursue aggressively rhythm control approach. Management of heart failure was discussed in details. Continue manage COPD. Diagnose of interstitial lung disease needs to be revisited. (2) PAF (paroxysmal atrial fibrillation): Code(s): I48.0 - Paroxysmal atrial fibrillation Plan: Paroxysmal atrial fibrillation, with episodes of long-lasting atrial fibri llation between, just a few days ago lasting for 4 days. Increased burden at 35%. This is probably responsible for her worsening heart failure syndrome or persistent atrial fibrillation secondary to worsening heart failure. Will increase sotalol to 120 mg b.i.d.. Check basic metabolic profile today. Importance of rhythm control approach in history pursued. Need to again re- evaluate presence of interstitial lung disease as she is very difficult control atrial fibrillation may require amiodarone therapy. (3) Status post placement of cardiac pacemaker: Comment: Jun 20, 2023. Mirriad single chamber Code(s): Z95.0 - Presence of cardiac pacemaker Plan: Dual-chamber pacemaker placement with recent upgrade with a ventricular lead placement. Pacemaker is working well. Will follow up in 3 months time. This should help with her sick sinus syndrome. However I did turn on the rate response and should help with chronotropic competence. 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 The valve is working well. Continue full oral anticoagulation warfarin target INR between 2.5 and 3.5. No need for concomitant aspirin therapy. SBE prophylaxis as per ACC/aha guidelines. Follow-up echocardiogram in 3 months time. (5) Status post transcatheter aortic valve replacement: Code(s): Z95.2 - Presence of prosthetic heart valve Plan: Status post transcatheter aortic valve replacement for severe aortic stenosis and heart failure. Clinically doing well at this point in time. Continue monitor by echocardiogram on annual basis. SBE prophylaxis as per ACC/aha guidelines. Will follow-up echocardiogram in 3 months time. Follow up in the clinic in 3 months time, sooner p.r.n.. Greater than 45 minutes was spent in managing his complex care. Orders: Orders B Type Natriuretic Peptide Today I48.0 - Paroxysmal atrial fibrillation Basic Metabolic Panel Today I48.0 - Paroxysmal atrial fibrillation CA echo transthoracic complete 3 Months Z95.2 - Presence of prosthetic heart valve Medications: New furosemide 40 mg PO DAILY 40 tabs 5RF sotalol 120 mg PO BID 60 tabs 5RF Coding Level of Care Code Est Pt Level 5 (32454) Diagnoses Chronic heart failure with preserved ejection fraction I50.32 Heart failure chronicity: chronic PAF (paroxysmal atrial fibrillation) I48.0 Status post placement of cardiac pacemaker Z95.0 Hx of mitral valve replacement Z95.2 Status post transcatheter aortic valve replacement Z95.2 CPT Codes Cardiac Device Check - Cardiac Device 2: [id number] Cardiac Device Check, pacemaker dual lead ([id number]) EKG - CPT: 55755-[id number], Complete ([id number])
== END 2024-01-20 09:07 | disposition home or self-care (01) ==
PROVIDERS: PCP Internal Medicine; Visit Provider Internal Medicine Cardiovascular Disease
DX: I50.32 Chronic diastolic (congestive) heart failure (principal); I48.0 Paroxysmal atrial fibrillation; Z95.0 Presence of cardiac pacemaker; Z95.2 Presence of prosthetic heart valve
CPT/HCPCS: 93010; 93280; 99215

== ENCOUNTER 2024-01-20 08:26 | Outpatient (REF) | payer MEDICARE, MEDICAID, SELFPAY ==
[2024-01-20 10:53] LABS: B Type Natriuretic Peptide 205 pg/mL (<100)
[2024-01-20 10:57] LABS: Anion Gap 12 (12-20); Blood Urea Nitrogen 10 mg/dL (9-16); Calcium 9.8 mg/dL (8.4-10.2); Carbon Dioxide 28 mmol/L (22-29); Chloride 107 mmol/L (96-108); Estimated Glomerular Filt Rate > 60; Glucose Random 87 mg/dL (60-115); Sodium 143 mmol/L (135-145)
== END 2024-01-20 08:27 | disposition home or self-care (01) ==
LOC: HO.LAB 08:26
PROVIDERS: PCP Internal Medicine; Visit Provider Internal Medicine Cardiovascular Disease
DX: I48.0 Paroxysmal atrial fibrillation (principal); I50.32 Chronic diastolic (congestive) heart failure; Z95.0 Presence of cardiac pacemaker; Z95.2 Presence of prosthetic heart valve; Z79.899 Other long term (current) drug therapy
CPT/HCPCS: 36415; 80048; 83880; 93005; 93280; 99212

== ENCOUNTER 2024-01-23 08:14 | Outpatient (AMB) | payer MEDICARE, MEDICAID, SELFPAY ==
[2024-01-23 08:27] LABS: ~PT, ~INR - Anti Coag Clinic 2.9 (0.9-1.1)
--- NOTE | 2024-01-23 08:33 | MHC.OFFVISCO ---
Intake Intake Visit Reasons: Anticoagulation Allergies amiodarone Allergy (Intermediate, Verified 01/23/24 08:21) Swelling Medication List - Last Reconciled 01/23/24 by My Foley RN albuterol sulfate 90 mcg/actuation (Ventolin HFA) 2 puffs inhalation Q4-6H PRN atorvastatin 20 mg PO DAILY empagliflozin (Jardiance) 10 mg PO DAILY ferrous sulfate 325 mg PO DAILY@1600 vuhvknbnzxv-vehrimwcq-hbnhnpzv 200-62.5-25 mcg (Trelegy Ellipta) 1 ea inhalation DAILY furosemide One tablet in a.m. and half tablet at noon orally 2 times a day; levothyroxine 25 mcg PO DAILY@0600 sertraline 200 mg PO DAILY sotalol 120 mg PO BID warfarin 2.5 mg See Protocol PO QWEEK zolpidem 5 mg PO BEDTIME PRN Nursing Note INR: 2.9 in therapeutic range of 2.5-3.5 Medications and supplements reviewed: no changes No changes in health, diet, medications, or supplements, Denies any signs and symptoms of bleeding or bruising or clotting. Bleeding, bruising, clotting discussed Nutritional guidance given to balance reds and greens Dose: resume usual dose of 10mg X 1 day and 7.5mg X 6 days. F/U INR: 4 weeks Patient verbalizes understanding of instructions given Anti-Coag Initial Assessment Social Hx Patient Tobacco Use Status: Former Tobacco user Quit Date: 2012 Tobacco use type: Cigarette alcohol intake: never Alcohol intake frequency: holidays/special occasions only Coding Level of Care Code Est Patient Level 1 Diagnoses Current use of anticoagulant therapy Z79.01 Assessment & Plan Assessment & Plan (1) Current use of anticoagulant therapy: Code(s): Z79.01 - detention (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
== END 2024-01-23 08:36 | disposition home or self-care (01) ==
LOC: HO.ACS 08:14
PROVIDERS: PCP Internal Medicine; Visit Provider Internal Medicine
DX: Z79.01 Long term (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 (principal)

== ENCOUNTER → 2024-01-23 08:14 | Outpatient (BNVA) | payer MEDICARE, MEDICAID, SELFPAY | PROVIDERS: PCP Internal Medicine; Visit Provider Internal Medicine | DX: Z95.2 Presence of prosthetic heart valve (principal); Z79.01 Long term (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; Z51.81 Encounter for therapeutic drug level monitoring | CPT/HCPCS: 85610; 99211 ==

== ENCOUNTER 2024-01-30 08:59 | Outpatient (REF) | payer SELFPAY | END 2024-01-30 09:00 | disposition home or self-care (01) | LOC: HO.HAP 08:59 | PROVIDERS: Visit Provider Internal Medicine | DX: Z46.1 Encounter for fitting and adjustment of hearing aid (principal); H90.3 Sensorineural hearing loss, bilateral | CPT/HCPCS: V5267 ==

== ENCOUNTER 2024-02-05 08:04 | Outpatient (REF) | payer MEDICARE, MEDICAID, SELFPAY ==
--- NOTE | 2024-02-05 09:03 | MHC.AU.HA3 ---
Hearing Instrument Follow-Up- Binaural Date of Visit: 02/05/24 Linseed Cake Trimmer Used: Right Ear: Omar, Model, Color, Serial Number: Aura SCHMITZ 1600 HS R, #[id number] Mechanical Technologist Repair Warranty: 01/01/2025 Mechanical Technologist Loss and Damage Warranty: USED 08/22/23 [facility] Service Plan: Battery Size: Rechargeable Cyber Special Agent/Slim Tube: 120/60 Earmold/Dome/CShell/SlimTip: Type of Wax Guard: HearClear Dispensed By: [facility] Date of Fittin12/11/2021 Left Ear: Omar, Model, Color, Serial Number: Aura SCHMITZ 1600 HS R, #[id number] Mechanical Technologist Repair Warranty: 01/01/2025 Mechanical Technologist Loss and Damage Warranty: 01/01/2025 [facility] Service Plan: Battery Size: Rechargeable Cyber Special Agent/Slim Tube: 120/60 Earmold/Dome/CShell/SlimTip: Type of Wax Guard: HearClear Dispensed By: [facility] Date of Fittin12/11/2021 Follow-Up Summary: Nubia is here to machine operator picker her L&D right aid, has been waiting here for her since August. She reports that she had found her right aid and has been wearing it. Called Aura, too much time has passed to return aid and reinstate L&D. Dispensed aid for Nubia to keep safe and use as a back up if needed in the future. Both right aids have the same serial number. While her Nubia requested help pairing aids with iPhone- done. Recommendations: Recommendations: Hearing instrument follow-up or maintenance as needed. Diagnosis Code(s): Primary Diagnosis: H90.3 Bilateral Sensorineural Hearing Loss Signature: Provider: Brandon Espino, [facility]
== END 2024-02-05 08:05 | disposition home or self-care (01) ==
LOC: HO.HAP 08:04
PROVIDERS: Visit Provider Internal Medicine
DX: Z13.89 Encounter for screening for other disorder (principal)

== ENCOUNTER 2024-02-12 09:26 | Outpatient (AMB) | payer SELFPAY ==
--- NOTE | 2024-02-12 09:53 | MHC.OFFVISCO ---
Intake Intake Visit Reasons: Anticoagulation Allergies amiodarone Allergy (Intermediate, Verified 02/12/24 09:48) Swelling Medication List - Last Reconciled 02/12/24 by Fannie Thomason RN albuterol sulfate 90 mcg/actuation (Ventolin HFA) 2 puffs inhalation Q4-6H PRN atorvastatin 20 mg PO DAILY empagliflozin (Jardiance) 10 mg PO DAILY ferrous sulfate 325 mg PO DAILY@1600 cipvwfihhij-ozzrfsmjq-ppfkrtot 200-62.5-25 mcg (Trelegy Ellipta) 1 ea inhalation DAILY furosemide One tablet in a.m. and half tablet at noon orally 2 times a day; levothyroxine 25 mcg PO DAILY@0600 sertraline 200 mg PO DAILY sotalol 120 mg PO BID warfarin 2.5 mg See Protocol PO QWEEK zolpidem 5 mg PO BEDTIME PRN Nursing Note INR 3.6-?? out of therapeutic range of 2.5-3.5 Medications and supplements reviewed Patient status: pt states recent visit to urgent care and was dx with pneumonia Medications or supplements: completed antibiotics approx 3 days ago/amoxicillin for 4 days, did not call acs- pt states ate greens while on antibiotics Diet: same Denies any signs and symptoms of bleeding or clotting or unusual bruising Bleeding, bruising, clotting discussed Nutritional guidance given: eat dark greens today and tomm Dose: 7.5mg x 6, 10mg x 1 F/U INR Date : 1 week? Patient verbalizing understanding of instructions given. Anti-Coag Initial Assessment Social Hx Patient Tobacco Use Status: Former Tobacco user Quit Date: 2012 Tobacco use type: Cigarette alcohol intake: never Alcohol intake frequency: holidays/special occasions only Coding Level of Care Code Est Patient Level 1 Diagnoses Current use of anticoagulant therapy Z79.01 Assessment & Plan Assessment & Plan (1) Current use of anticoagulant therapy: Code(s): Z79.01 - alf (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
[2024-02-12 09:54] LABS: Prothrombin Time Whole Bld POC 43.7 sec (11.1-13.5); ~PT, ~INR - Anti Coag Clinic 3.6 (0.9-1.1)
== END 2024-02-12 10:02 | disposition home or self-care (01) ==
LOC: HO.ACS 09:26
PROVIDERS: PCP Internal Medicine; Visit Provider Internal Medicine
DX: Z79.01 Long term (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 (principal)

== ENCOUNTER → 2024-02-12 09:26 | Outpatient (BNVA) | payer MEDICARE, MEDICAID, SELFPAY | PROVIDERS: PCP Internal Medicine; Visit Provider Internal Medicine | DX: Z95.2 Presence of prosthetic heart valve (principal); Z79.01 Long term (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; Z51.81 Encounter for therapeutic drug level monitoring | CPT/HCPCS: 85610; 99211 ==

== ENCOUNTER 2024-02-17 08:09 | Outpatient (AMB) | payer MEDICARE, MEDICAID, SELFPAY ==
[2024-02-17 08:26] LABS: Prothrombin Time Whole Bld POC 32.9 sec (11.1-13.5); ~PT, ~INR - Anti Coag Clinic 2.7 (0.9-1.1)
--- NOTE | 2024-02-17 08:37 | MHC.OFFVISCO ---
Intake Intake Visit Reasons: Anticoagulation Allergies amiodarone Allergy (Intermediate, Verified 02/17/24 08:21) Swelling Medication List - Last Reconciled 02/17/24 by My Foley RN albuterol sulfate 90 mcg/actuation (Ventolin HFA) 2 puffs inhalation Q4-6H PRN atorvastatin 20 mg PO DAILY empagliflozin (Jardiance) 10 mg PO DAILY ferrous sulfate 325 mg PO DAILY@1600 oxosytelrgw-hzhmcublb-tvpvnruu 200-62.5-25 mcg (Trelegy Ellipta) 1 ea inhalation DAILY furosemide One tablet in a.m. and half tablet at noon orally 2 times a day; levothyroxine 25 mcg PO DAILY@0600 sertraline 200 mg PO DAILY sotalol 120 mg PO BID warfarin 2.5 mg See Protocol PO QWEEK zolpidem 5 mg PO BEDTIME PRN Nursing Note INR: 2.7 in therapeutic range of 2.5-3.5 Medications and supplements reviewed: no changes No changes in health, diet, medications, or supplements, Denies any signs and symptoms of bleeding or bruising or clotting. Bleeding, bruising, clotting discussed Nutritional guidance given to review the food list, avoid greens today and have a serving of foods that raise the INR. 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
== END 2024-02-17 08:41 | disposition home or self-care (01) ==
LOC: HO.ACS 08:09
PROVIDERS: PCP Internal Medicine; Visit Provider Internal Medicine
DX: Z79.01 Long term (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 (principal)

== ENCOUNTER → 2024-02-17 08:09 | Outpatient (BNVA) | payer MEDICARE, MEDICAID, SELFPAY | PROVIDERS: PCP Internal Medicine; Visit Provider Internal Medicine | DX: Z95.2 Presence of prosthetic heart valve (principal); Z51.81 Encounter for therapeutic drug level monitoring; Z79.01 Long term (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 | CPT/HCPCS: 85610; 99211 ==

== ENCOUNTER 2024-02-17 09:30 | Outpatient (REF) | payer MEDICARE, MEDICAID, SELFPAY | END 2024-02-17 09:31 | disposition home or self-care (01) | LOC: HO.HAP 09:30 | PROVIDERS: Visit Provider Internal Medicine | DX: Z46.1 Encounter for fitting and adjustment of hearing aid (principal) | CPT/HCPCS: 92592 ==

== ENCOUNTER 2024-02-18 08:32 | Outpatient (REF) | payer MEDICARE, MEDICAID, SELFPAY | END 2024-02-18 08:33 | disposition home or self-care (01) | LOC: HO.HAP 08:32 | PROVIDERS: Visit Provider Internal Medicine | DX: Z13.89 Encounter for screening for other disorder (principal) ==

== ENCOUNTER 2024-02-28 08:03 | Outpatient (AMB) | payer MEDICARE, MEDICAID, SELFPAY ==
[2024-02-28 08:09] LABS: Prothrombin Time Whole Bld POC 39.1 sec (11.1-13.5); ~PT, ~INR - Anti Coag Clinic 3.3 (0.9-1.1)
--- NOTE | 2024-02-28 08:15 | MHC.OFFVISCO ---
Intake Intake Visit Reasons: Anticoagulation Allergies amiodarone Allergy (Intermediate, Verified 02/28/24 08:03) Swelling Medication List - Last Reconciled 02/28/24 by My Foley RN albuterol sulfate 90 mcg/actuation (Ventolin HFA) 2 puffs inhalation Q4-6H PRN atorvastatin 20 mg PO DAILY empagliflozin (Jardiance) 10 mg PO DAILY ferrous sulfate 325 mg PO DAILY@1600 tvbnbpldjqe-qyulwcfot-evdbsflw 200-62.5-25 mcg (Trelegy Ellipta) 1 ea inhalation DAILY furosemide One tablet in a.m. and half tablet at noon orally 2 times a day; levothyroxine 25 mcg PO DAILY@0600 sertraline 200 mg PO DAILY sotalol 120 mg PO BID warfarin 2.5 mg See Protocol PO QWEEK zolpidem 5 mg PO BEDTIME PRN Nursing Note INR: 3.3 in therapeutic range of 2.5-3.5 Medications and supplements reviewed: no changes No changes in health, diet, medications, or supplements, Denies any signs and symptoms of bleeding or bruising or clotting. Bleeding, bruising, clotting discussed Nutritional guidance given to cont to balance reds and greens Dose: 7.5mg X6 days and 10mg X 1 day F/U INR: 10 days Patient verbalizes understanding of instructions given Anti-Coag Initial Assessment Social Hx Patient Tobacco Use Status: Former Tobacco user Quit Date: 2012 Tobacco use type: Cigarette alcohol intake: never Alcohol intake frequency: holidays/special occasions only Coding Level of Care Code Est Patient Level 1 Diagnoses Current use of anticoagulant therapy Z79.01 Assessment & Plan Assessment & Plan (1) Current use of anticoagulant therapy: 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
== END 2024-02-28 08:18 | disposition home or self-care (01) ==
LOC: HO.ACS 08:03
PROVIDERS: PCP Internal Medicine; Visit Provider Internal Medicine
DX: Z79.01 Long term (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 (principal)

== ENCOUNTER → 2024-02-28 08:03 | Outpatient (BNVA) | payer MEDICARE, MEDICAID, SELFPAY | PROVIDERS: PCP Internal Medicine; Visit Provider Internal Medicine | DX: Z95.2 Presence of prosthetic heart valve (principal); Z51.81 Encounter for therapeutic drug level monitoring; Z79.01 Long term (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 | CPT/HCPCS: 85610; 99211 ==

== ENCOUNTER 2024-03-10 08:29 | Outpatient (AMB) | payer MEDICARE, MEDICAID, SELFPAY ==
--- NOTE | 2024-03-10 08:37 | MHC.OFFVISCO ---
Intake Intake Visit Reasons: Anticoagulation Allergies amiodarone Allergy (Intermediate, Verified 03/10/24 08:32) Swelling Medication List - Last Reconciled 03/10/24 by Fannie Thomason RN albuterol sulfate 90 mcg/actuation (Ventolin HFA) 2 puffs inhalation Q4-6H PRN atorvastatin 20 mg PO DAILY empagliflozin (Jardiance) 10 mg PO DAILY ferrous sulfate 325 mg PO DAILY@1600 gshkmpgytgr-mlcsyfjli-fvgbawxj 200-62.5-25 mcg (Trelegy Ellipta) 1 ea inhalation DAILY furosemide One tablet in a.m. and half tablet at noon orally 2 times a day; levothyroxine 25 mcg PO DAILY@0600 sertraline 200 mg PO DAILY sotalol 120 mg PO BID warfarin 2.5 mg See Protocol PO QWEEK zolpidem 5 mg PO BEDTIME PRN Nursing Note INR: 3.5- in therapeutic range of 2.5-3.5 Medications and supplements reviewed- no changes No changes in health, diet, medications, or supplements, Denies any signs and symptoms of bleeding or bruising or clotting. Bleeding, bruising, clotting discussed Nutritional guidance given - eat greens today Dose: 10mg x 1. 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
[2024-03-10 08:39] LABS: Prothrombin Time Whole Bld POC 42.1 sec (11.1-13.5); ~PT, ~INR - Anti Coag Clinic 3.5 (0.9-1.1)
== END 2024-03-10 08:43 | disposition home or self-care (01) ==
LOC: HO.ACS 08:29
PROVIDERS: PCP Internal Medicine; Visit Provider Internal Medicine
DX: Z79.01 Long term (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 (principal)

== ENCOUNTER → 2024-03-10 08:29 | Outpatient (BNVA) | payer MEDICARE, MEDICAID, SELFPAY | PROVIDERS: PCP Internal Medicine; Visit Provider Internal Medicine | DX: Z95.2 Presence of prosthetic heart valve (principal); Z51.81 Encounter for therapeutic drug level monitoring; Z79.01 Long term (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 | CPT/HCPCS: 85610; 99211 ==

== ENCOUNTER 2024-03-16 08:35 | Outpatient (AMB) | payer MEDICARE, MEDICAID, SELFPAY ==
[2024-03-16 08:45] LABS: Prothrombin Time Whole Bld POC 40.7 sec (11.1-13.5); ~PT, ~INR - Anti Coag Clinic 3.4 (0.9-1.1)
--- NOTE | 2024-03-16 08:54 | MHC.OFFVISCO ---
Intake Intake Visit Reasons: Anticoagulation Allergies amiodarone Allergy (Intermediate, Verified 03/16/24 08:36) Swelling Medication List - Last Reconciled 03/16/24 by My Mata RN albuterol sulfate 90 mcg/actuation (Ventolin HFA) 2 puffs inhalation Q4-6H PRN atorvastatin 20 mg PO DAILY empagliflozin (Jardiance) 10 mg PO DAILY ferrous sulfate 325 mg PO DAILY@1600 lyoztcxoejo-svqonkkaa-fhdsvmrn 200-62.5-25 mcg (Trelegy Ellipta) 1 ea inhalation DAILY furosemide One tablet in a.m. and half tablet at noon orally 2 times a day; levothyroxine 25 mcg PO DAILY@0600 sertraline 200 mg PO DAILY sotalol 120 mg PO BID warfarin 2.5 mg See Protocol PO QWEEK zolpidem 5 mg PO BEDTIME PRN Nursing Note Amb to ACS feeling well Medications and supplements reviewed No changes in health, diet, medications, or supplements, Denies any unusual signs and symptoms of bleeding, bruising, or clotting. INR 3.4 in therapeutic range (2.5-3.5) continue usual dose 10 mg on Mondays and 7.5mg all other days Nutritional guidance given , continue to balance greens and reds in diet, be consistent F/U INR: 2 weeks Patient verbalizes understanding of instructions given Anti-Coag Initial Assessment Social Hx Patient Tobacco Use Status: Former Tobacco user Quit Date: 2012 Tobacco use type: Cigarette alcohol intake: never Alcohol intake frequency: holidays/special occasions only Coding Level of Care Code Est Patient Level 1 Diagnoses Current use of anticoagulant therapy Z79.01 Time Spent (min) 15 Assessment & Plan Assessment & Plan (1) Current use of anticoagulant therapy: Code(s): Z79.01 - [facility] (current) use of anticoagulants
== END 2024-03-16 09:03 | disposition home or self-care (01) ==
LOC: HO.ACS 08:35
PROVIDERS: PCP Internal Medicine; Visit Provider Internal Medicine
DX: Z79.01 Long term (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 (principal)

== ENCOUNTER → 2024-03-16 08:35 | Outpatient (BNVA) | payer MEDICARE, MEDICAID, SELFPAY | PROVIDERS: PCP Internal Medicine; Visit Provider Internal Medicine | DX: Z95.2 Presence of prosthetic heart valve (principal); Z51.81 Encounter for therapeutic drug level monitoring; Z79.01 Long term (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; G47.33 Obstructive sleep apnea (adult) (pediatric); G47.34 Idiopathic sleep related nonobstructive alveolar hypoventilation; J84.9 Interstitial pulmonary disease, unspecified; J44.9 Chronic obstructive pulmonary disease, unspecified; Z99.89 Dependence on other enabling machines and devices; Z99.81 Dependence on supplemental oxygen | CPT/HCPCS: 85610; 99211; 99212 ==

== ENCOUNTER 2024-03-16 08:58 | Outpatient (AMB) | payer MEDICARE, MEDICAID, SELFPAY ==
--- NOTE | 2024-03-16 09:09 | MHC.OFFVIS ---
Vital Signs 03/16/24 09:10 Height 5 ft 2 in Weight 173 lb 1.006 oz BMI 31.7 BP 108/70 Blood Pressure Location Lt brachial Position Sitting Pulse 81 Pulse Source Pulse Oximeter Pulse Oximetry (%) 96 Oxygen Delivery Method Room Air Intake Visit Reasons: hugh Intake Note: pt is here for follow up and states feeling good, and cpap is well Theatre Manager Required: No Allergies amiodarone Allergy (Intermediate, Verified 03/16/24 09:14) Swelling Medication List - Last Reconciled 03/16/24 by Mary Ellen Brumfield MD albuterol sulfate 90 mcg/actuation (Ventolin HFA) 2 puffs inhalation Q4-6H PRN atorvastatin 20 mg PO DAILY empagliflozin (Jardiance) 10 mg PO DAILY ferrous sulfate 325 mg PO DAILY@1600 vmbothyngxa-kipdmbudf-dzpwbgee 200-62.5-25 mcg (Trelegy Ellipta) 1 ea inhalation DAILY furosemide One tablet in a.m. and half tablet at noon orally 2 times a day; levothyroxine 25 mcg PO DAILY@0600 sertraline 200 mg PO DAILY sotalol 120 mg PO BID warfarin 2.5 mg See Protocol PO QWEEK zolpidem 5 mg PO BEDTIME PRN Do you need a note to return to daycare/school/sports/work: No HPI HPI hugh: Details: This 68 years old very pleasant female is here for her routine follow-up. Breathing status is very stable without any acute exacerbations. In the last 4 months she has used the albuterol inhaler only once or twice. She also uses the CPAP with oxygen 2 L/minute at night very regularly and loves it. No issues related to the mask or CPAP device. [facility] Medical History Implantable loop recorder present Persistent atrial fibrillation PAF (paroxysmal atrial fibrillation) Increasing shortness of breath Encounter for interrogation of cardiac pacemaker Subtherapeutic international normalized ratio (INR) Heart failure Cardiac pacemaker Nocturnal hypoxemia (~08/15/23) Sinus pause History of cardioversion Interstitial lung disease COPD (chronic obstructive pulmonary disease) Pulmonary nodule Atrial flutter with rapid ventricular response COPD (chronic obstructive pulmonary disease) Exercise hypoxemia Interstitial lung disease Bronchitis due to Staphylococcus aureus History of transcatheter aortic valve replacement (TAVR) Acute diastolic CHF (congestive heart failure) Paroxysmal atrial fibrillation Abnormal EKG Hypoxia Interstitial lung disease Anemia Atrial flutter Obesity (HFpEF) heart failure with preserved ejection fraction Aortic stenosis Current use of anticoagulant therapy Surgical History Status post transcatheter aortic valve replacement Hx of mitral valve replacement (~2004) Status post placement of cardiac pacemaker H/O heart surgery History of sleeve gastrectomy (~2017) Hx of transesophageal echocardiography (SHELIA) for monitoring (~2015) Hx of section Family History Father No problems noted. Mother CVD (cardiovascular disease) Social History Household Members: Family Housing: House Do you presently have visiting nurse or other home services: Yes Alcohol intake: never Patient Tobacco Use Status: Former Tobacco user Quit Date: 2012 Tobacco use type: Cigarette Years Smoked: 29 e-Cigarette/Vaping Use: Never Used Second Hand Smoke Exposure: No Advance Directives Date on File: 08/28/22 service: No Current occupational status: disabled Review of Systems Const All systems reviewed & are unremarkable except as noted in HPI and below Reports fatigue and Reports lethargy Eyes Reports no additional complaints ENT Reports no additional complaints Card Denies chest pain, Denies irregular heart rhythm, Denies leg edema and Reports dyspnea on exertion Resp Reports as per HPI and Reports dyspnea on exertion GI Reports no additional complaints Reports no additional complaints Musc Reports no additional complaints Skin/Breast Reports system reviewed and no additional complaints, except as documented Neuro Reports no additional complaints Psych Reports depression (Controlled with sertraline) Endo Reports fatigue and Reports other (Being treated for hypothyroidism) Physical Exam Vital Signs: Last Vital Signs Pulse 81 03/16/24 09:10 BP 108/70 03/16/24 09:10 Pulse Ox 96 03/16/24 09:10 Oxygen Delivery Method Room Air 03/16/24 09:10 BMI result Body Mass Index 31.7 Const General: comfortable (But short of breath), no acute distress, alert and awake Orientation/consciousness: patient oriented x3 HEENT Head: Yes normal to inspection General nose exam: No nasal polyps present and No nasal discharge present Face and sinus: Yes sinuses nontender Mouth: oropharynx normal Throat: Yes posterior oropharynx normal Eyes General: appearance normal, both eyes and all related structures Neck Neck: Yes normal visual inspection, Yes no lymphadenopathy, Yes trachea midline and Yes no JVD Thyroid: Thyroid normal Chest Chest palpation & inspection: abnormal inspection of the chest (Midline scar from previous cardiac surgery), normal palpation of entire chest wall and no tenderness Resp Other: Breath sounds are distant but equal on both sides. Prolonged expiratory phase, No wheezes rhonchi or crepitations are heard today. Cardio Palpation: normal PMI Rate: regular rate Rhythm: regular rhythm Heart sounds: no gallops and no murmurs GI Palpation (GI): Soft to palpation, nontender, No hepatosplenomegaly present and no masses Auscultation: normal bowel sounds Back/Spine/Pelvis Thoracic/Lumbar Spine: thoracic and lumbar spine normal to inspection Skin General skin exam: no rashes or lesions noted Neuro General: patient oriented x3 and no focal motor deficits Cranial nerves: Yes CN's II-XII intact bilaterally Extrem General: Yes normal to inspection, Yes no clubbing, cyanosis or edema and Yes no calf tenderness Psych Appearance: grossly normal and well kempt Speech and movement: Normal speech and movement present Results Reviewed Results Reviewed: Compliance report for the last 30 nights is reviewed and she has used 26/30 nights 87%, average use it per night 6 hours 32 minutes. Pressure used only 7 cm. There is no significant air leak and there is no residual sleep apnea Assessment & Plan Assessment & Plan (1) Obstructive sleep apnea: Comment: Patient is a confirmed case of obstructive sleep apnea, She is very regular user of CPAP and is benefiting. Compliance is excellent, and she is definitely benefiting from the use of CPAP., Code(s): G47.33 - Obstructive sleep apnea (adult) (pediatric) Category: Medical Plan: Commended for her good compliance and advised to keep on using CPAP every night regularly. (2) Nocturnal hypoxemia: Onset Date: ~08/15/23 Comment: ON THE BASELINE STUDY PATIENT DID HAVE NOCTURNAL HYPOXEMIA. IT WAS CORRECTED WITH THE CPAP AT PRESSURE. OF 7 CM HOWEVER PATIENT IS STILL PUTTING ON THE OXYGEN AT NIGHT ALONG WITH THE CPAP, I TOLD HER NOT TO EXCEED 2 L/MINUTE. Code(s): G47.34 - Idiopathic sleep related nonobstructive alveolar hypoventilation Category: Medical Plan: Continue O2 2 L/minute at night (3) COPD (chronic obstructive pulmonary disease): Comment: This patient being treated for chronic obstructive pulmonary disease. She has done very well with the use of Trelegy Ellipta once a day It remains quite stable and well controlled. Code(s): J44.9 - Chronic obstructive pulmonary disease, unspecified Category: Medical Plan: Continue Trelegy Ellipta 1 inhalation daily. Albuterol HFA 2 puffs Q 4-6 hours only p.r.n. Coding Level of Care Code Est Pt Level 3 (92113) Diagnoses Obstructive sleep apnea G47.33 Nocturnal hypoxemia G47.34 COPD (chronic obstructive pulmonary disease) J44.9
[2024-03-16 09:10] VITALS: BP 108/70; PULSE 81; O2SAT 96; BMI 31.7
== END 2024-03-16 09:23 | disposition home or self-care (01) ==
PROVIDERS: PCP Internal Medicine; Visit Provider Internal Medicine
DX: G47.33 Obstructive sleep apnea (adult) (pediatric) (principal); G47.34 Idiopathic sleep related nonobstructive alveolar hypoventilation; J44.9 Chronic obstructive pulmonary disease, unspecified
CPT/HCPCS: 99213

== ENCOUNTER → 2024-04-05 23:59 | Outpatient (BNV) | payer MEDICARE, MEDICAID, SELFPAY ==
--- NOTE | 2024-04-07 12:31 | MHC.OFFVIS ---
Intake Visit Reasons: Remote device check- medtronic Allergies amiodarone Allergy (Intermediate, Verified 04/06/24 08:15) Swelling [facility] Medical History Implantable loop recorder present Persistent atrial fibrillation PAF (paroxysmal atrial fibrillation) Increasing shortness of breath Encounter for interrogation of cardiac pacemaker Subtherapeutic international normalized ratio (INR) Heart failure Cardiac pacemaker Nocturnal hypoxemia (~08/15/23) Sinus pause History of cardioversion Interstitial lung disease COPD (chronic obstructive pulmonary disease) Pulmonary nodule Atrial flutter with rapid ventricular response COPD (chronic obstructive pulmonary disease) Exercise hypoxemia Interstitial lung disease Bronchitis due to Staphylococcus aureus History of transcatheter aortic valve replacement (TAVR) Acute diastolic CHF (congestive heart failure) Paroxysmal atrial fibrillation Abnormal EKG Hypoxia Interstitial lung disease Anemia Atrial flutter Obesity (HFpEF) heart failure with preserved ejection fraction Aortic stenosis Current use of anticoagulant therapy Surgical History Status post transcatheter aortic valve replacement Hx of mitral valve replacement (~2004) Status post placement of cardiac pacemaker H/O heart surgery History of sleeve gastrectomy (~2017) Hx of transesophageal echocardiography (SHELIA) for monitoring (~2015) Hx of section Family History Father No problems noted. Mother CVD (cardiovascular disease) Social History Household Members: Family Housing: House Do you presently have visiting nurse or other home services: Yes Alcohol intake: never Patient Tobacco Use Status: Former Tobacco user Tobacco use type: Cigarette Years Smoked: 29 e-Cigarette/Vaping Use: Never Used Second Hand Smoke Exposure: No Advance Directives Date on File: 08/28/22 service: No Current occupational status: disabled Office Procedures Cardiac Device Check Cardiac Device Check Details: Remote pacemaker report generated 04/05/2024. Pacemaker function is adequate. Increasing burden of atrial fibrillation with 58.4% time atrial fibrillation present. [id number]-[id number] Cardiac Device Interrogation, pacemaker Procedure code (CPT) selection complete Assessment & Plan Assessment & Plan (1) Status post placement of cardiac pacemaker: Comment: Jun 20, 2023. Medtronic single chamber Code(s): Z95.0 - Presence of cardiac pacemaker Category: Surgical Plan: See above Coding Level of Care Code Procedure Only Diagnoses Status post placement of cardiac pacemaker Z95.0 CPT Codes Cardiac Device Check - Cardiac Device 12: [address]-[id number] Cardiac Device Interrogation, pacemaker ([id number])
== END ==
PROVIDERS: PCP Internal Medicine; Visit Provider Internal Medicine Cardiovascular Disease
DX: I48.91 Unspecified atrial fibrillation (principal); Z95.0 Presence of cardiac pacemaker
CPT/HCPCS: 93294

== ENCOUNTER 2024-04-06 08:15 | Outpatient (AMB) | payer MEDICARE, MEDICAID, SELFPAY ==
[2024-04-06 08:28] LABS: Prothrombin Time Whole Bld POC 43.2 sec (11.1-13.5); ~PT, ~INR - Anti Coag Clinic 3.6 (0.9-1.1)
--- NOTE | 2024-04-06 08:37 | MHC.OFFVISCO ---
Intake Intake Visit Reasons: Anticoagulation Allergies amiodarone Allergy (Intermediate, Verified 04/06/24 08:15) Swelling Nursing Note INR: 3.6 out of therapeutic range of 2.5-3.5 Medications and supplements reviewed: was ill 10 days ago with sinus infection and was on prednisone which completed 5 days ago and amoxicillin clav which is completed as of today. Pt stated she knos these meds can increase the INR so self adjusted her dose. She is feeling better and back to baseline. No changes in health, diet, or supplements, Denies any signs and symptoms of bleeding or bruising or clotting. Bleeding, bruising, clotting discussed Nutritional guidance given to have more greens this week Dose: decrease today's dose to 7.5mg (10mg) then resume usual dose of 7.5mg X 6 days and 10mg X 1 day F/U INR: 1 week Patient verbalizes understanding of instructions given Anti-Coag Initial Assessment Social Hx Patient Tobacco Use Status: Former Tobacco user Tobacco use type: Cigarette alcohol intake: never Alcohol intake frequency: holidays/special occasions only Coding Level of Care Code Est Patient Level 1 Diagnoses Current use of anticoagulant therapy Z79.01 Assessment & Plan Assessment & Plan (1) Current use of anticoagulant therapy: Code(s): Z79.01 - 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
== END 2024-04-06 08:44 | disposition home or self-care (01) ==
LOC: HO.ACS 08:15
PROVIDERS: PCP Internal Medicine; Visit Provider Internal Medicine
DX: Z79.01 Long term (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 (principal)

== ENCOUNTER → 2024-04-06 08:15 | Outpatient (BNVA) | payer MEDICARE, MEDICAID, SELFPAY | PROVIDERS: PCP Internal Medicine; Visit Provider Internal Medicine | DX: Z95.2 Presence of prosthetic heart valve (principal); Z79.01 Long term (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; Z51.81 Encounter for therapeutic drug level monitoring | CPT/HCPCS: 85610; 99211 ==

== ENCOUNTER 2024-04-15 08:46 | Outpatient (AMB) | payer MEDICARE, MEDICAID, SELFPAY ==
[2024-04-15 09:01] LABS: Prothrombin Time Whole Bld POC 58.6 sec (11.1-13.5); ~PT, ~INR - Anti Coag Clinic 4.9 (0.9-1.1)
--- NOTE | 2024-04-15 09:06 | MHC.OFFVISCO ---
Intake Intake Visit Reasons: Anticoagulation Allergies amiodarone Allergy (Intermediate, Verified 04/15/24 08:52) Swelling Medication List - Last Reconciled 04/15/24 by Meseret Conde RN albuterol sulfate 90 mcg/actuation (Ventolin HFA) 2 puffs inhalation Q4-6H PRN amoxicillin-pot clavulanate 875-125 mg 1 tab PO BID atorvastatin 20 mg PO DAILY empagliflozin (Jardiance) 10 mg PO DAILY ferrous sulfate 325 mg PO DAILY@1600 pcvxoyknrvh-rxxquovpb-mnhdbxst 200-62.5-25 mcg (Trelegy Ellipta) 1 ea inhalation DAILY furosemide One tablet in a.m. and half tablet at noon orally 2 times a day; levothyroxine 25 mcg PO DAILY@0600 sertraline 200 mg PO DAILY sotalol 120 mg PO BID warfarin 2.5 mg See Protocol PO QWEEK zolpidem 5 mg PO BEDTIME PRN Nursing Note NO CP,SOB,DIET/MED CHANGES,FALLS OR SX OF BLEEDING. PT. STATESN THAT SHE HAS HAD INCREASED AMTS.OF ETOH THIS WEEK. HOLD WARFARIN TODAY THEN RESUME USUAL DOSE AND FOLLOW-UP IN 1 WEEK. [place] TODAY GOOD UNDERSTANDING OF DOSING [id number]. 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
== END 2024-04-15 09:10 | disposition home or self-care (01) ==
LOC: HO.ACS 08:46
PROVIDERS: PCP Internal Medicine; Visit Provider Internal Medicine
DX: Z79.01 Long term (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 (principal)

== ENCOUNTER → 2024-04-15 08:46 | Outpatient (BNVA) | payer MEDICARE, MEDICAID, SELFPAY | PROVIDERS: PCP Internal Medicine; Visit Provider Internal Medicine | DX: Z95.2 Presence of prosthetic heart valve (principal); Z79.01 Long term (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; Z51.81 Encounter for therapeutic drug level monitoring | CPT/HCPCS: 85610; 99211 ==

== ENCOUNTER 2024-04-29 09:05 | Outpatient (REF) | payer MEDICARE, MEDICAID, SELFPAY | END 2024-04-29 09:06 | disposition home or self-care (01) | LOC: HO.HAP 09:05 | PROVIDERS: Visit Provider Internal Medicine | DX: Z13.89 Encounter for screening for other disorder (principal) ==

== ENCOUNTER → 2024-05-07 14:48 | Outpatient (REF) | payer MEDICARE, MEDICAID, SELFPAY ==
--- NOTE | 2024-05-07 14:50 | CA_ITS ---
Transthoracic Echocardiogram Patient (Last, First, Middle): Nubia Bond, Gender: Female Date of : 1955 Age: 68 Procedure Date: 05/07/2024 Procedure Type: Transthoracic Echocardiogram Location: OP Height: 157.48 cm Weight: 79.38 kg BSA: 1.81 m2 Heart Rate: bpm BP: 108 / 74 mmHg Automotive Software Engineer: COURTNEY Referring MD: Luis Antonio Nelson MD Tail Worker: Luis Antonio Nelson MD Symptoms: Z95.2 - Presence of prosthetic heart valve Study Quality: Adequate ECG Rhythm: Sinus Conclusions: - 1. Normal LV ejection fraction 65-70% with mild LVH with restrictive filling pattern 2. Mildly dilated right ventricle with reduced systolic function 3. Moderately dilated left atrium and severely dilated right atrium 4. Normally function bioprosthetic aortic valve with mean gradient of 13 mm Hg next 5. Normally functioning mechanical mitral valve with mean gradient of 3 mm Hg 6. Moderately elevated right ventricular systolic pressure with mildly elevated right atrial pressures 7. No gross pericardial effusion Findings Left Ventricle Normal left ventricular size and systolic function. There is mildly increased left ventricular wall thickness. The visually estimated ejection fraction is between 65-70%. Spectral Doppler is indicative of a restrictive filling pattern. Right Ventricle Mildly increased right ventricular cavity size. There is low normal right ventricular systolic function. Atria The left atrium is moderately dilated. There is no evidence of interatrial shunt. The right atrium is severely dilated. Aortic Valve A bioprosthetic aortic valve is present. The prosthetic aortic valve appears to be functioning normally. The mean gradient is 13 mmHg. There is no aortic valve regurgitation. Mitral Valve A mechanical prosthetic mitral valve is present. The prosthetic mitral valve appears to be functioning normally. Pulmonic Valve The pulmonic valve is likely normal. There is trace pulmonic valve regurgitation. Tricuspid Valve Likely normal tricuspid valve structure and function. There is moderate anterior and moderate posterior tricuspid leaflet thickening. There is mild tricuspid valve regurgitation. Mildly elevated right atrial pressure. Moderate pulmonary hypertension is present. prior tricuspid valve repair Great Vessels The pulmonary artery was not well visualized. Venous The inferior vena cava is mildly dilated and collapses less than 50% with inspiration. Pericardium/Pleural There is no evidence of pericardial effusion. Prior Study Comparison No significant change compared to prior study dated: 03/27/2023. Measurements 2D Linear Measurements IVSd: 1.21 0.6-0.9/0.6-1.0 cm LVIDd: 4.82 3.9-5.3/4.2-5.9 cm LVIDd Index: 2.66 2.4-3.2/2.2-3.1 cm/m2 LVIDs: 3.12 2.0-3.6 cm LVPWd: 1.21 0.7-1.1 cm LA Diam: 4.20 2.7-3.8/3.0-4.0 cm LAIDs Index: 2.32 1.5-2.3 cm/m2 LV Mass: 278.22 67-162/88-224 g LV Mass Index: 153.72 43-95/49-115 g/m2 LVOT Diam: 2.00 3.0+(-)1.3 cm 2D Systolic Function EF 4C: 68.50 >55% EF 2C: 67.20 >55% EF BiP: 67.10 >55% Mitral Valve MV VTI: 0.30 MV Pk Vern: 1.78 MV Mn Vern: 0.89 MV Pk Grad: 13.00 MV Mn Grad: 4.00 MV Pk E: 1.74 MV Decel Time: 222.00 E'Lateral: 7.83 E'Medial: 5.87 E/E' Med: 29.60 E/E' Lat: 22.20 PHT: 65.00 MVA PHT: 3.38 MVA Continuity: 2.78 Decel Emanuel: 7.83 Aortic Valve AoV Pk Vern: 2.37 AoV Mn Vern: 1.68 AoV VTI: 0.53 AoV Pk Grad: 22.00 Aov Mn Grad: 13.00 RADHA Cont.VTI: 1.54 AI Pk Vern: 3.64 AI Emanuel: 2.46 LVOT LVOT Pk Vern: 1.19 LVOT Mn Vern: 0.74 LVOT VTI: 0.26 LVOT Pk Grad: 6.00 LVOT Mn Grad: 3.00 LVOT Diam: 2.00 LVOT Area: 3.14 Diastolic Function MV Pk E: 1.74 E'Medial: 5.87 E/E' Med: 29.60 E' Laterial: 7.83 E/E' Lat: 22.20 Right Ventricle TAPSE (mm): 16.10 TVS' Vern: 7.83 Tricuspid Valve TV Pk Vern: 1.31 TV Mn Vern: 0.83 TV Pk Grad: 7.00 TV Mn Grad: 3.00 TR Pk Vern: 3.54 TR Pk Grad: 50.00 RA Press: 8.00 RVSP: 58.00 Great Vessels Aorta Ao Asc: 3.60 2.1-3.4 cm Updated in Other Vendor System with Status of Final Luis Antonio Nelson MD electronically signed on 05/08/2024 2:47:40 PM with status of Final
== END ==
LOC: HO.CARD 14:48
PROVIDERS: PCP Internal Medicine; Visit Provider Internal Medicine Cardiovascular Disease
DX: Z95.2 Presence of prosthetic heart valve (principal)
CPT/HCPCS: 93306

== ENCOUNTER → 2024-05-07 14:50 | Outpatient (BNV) | payer MEDICARE, MEDICAID, SELFPAY | PROVIDERS: PCP Internal Medicine; Visit Provider Internal Medicine Cardiovascular Disease | DX: I36.1 Nonrheumatic tricuspid (valve) insufficiency (principal); Z95.3 Presence of xenogenic heart valve | CPT/HCPCS: 93306 ==

== ENCOUNTER 2024-05-08 08:40 | Outpatient (AMB) | payer MEDICARE, MEDICAID, SELFPAY ==
[2024-05-08 08:53] LABS: Prothrombin Time Whole Bld POC 50.3 sec (11.1-13.5); ~PT, ~INR - Anti Coag Clinic 4.2 (0.9-1.1)
--- NOTE | 2024-05-08 09:00 | MHC.OFFVISCO ---
Intake Intake Visit Reasons: Anticoagulation Allergies amiodarone Allergy (Intermediate, Verified 05/08/24 08:48) Swelling Medication List - Last Reconciled 05/08/24 by My Foley RN albuterol sulfate 90 mcg/actuation (Ventolin HFA) 2 puffs inhalation Q4-6H PRN amoxicillin-pot clavulanate 875-125 mg 1 tab PO BID atorvastatin 20 mg PO DAILY empagliflozin (Jardiance) 10 mg PO DAILY ferrous sulfate 325 mg PO DAILY@1600 fvilkggzuco-exkhllqsf-rvbceity 200-62.5-25 mcg (Trelegy Ellipta) 1 ea inhalation DAILY furosemide One tablet in a.m. and half tablet at noon orally 2 times a day; levothyroxine 25 mcg PO DAILY@0600 sertraline 200 mg PO DAILY sotalol 120 mg PO BID warfarin 2.5 mg See Protocol PO QWEEK zolpidem 5 mg PO BEDTIME PRN Nursing Note INR 4.2?out of therapeutic range of 2.5-3.5 Medications and supplements reviewed Patient status: well Medications or supplements: no changes Diet: pt has been having more summer vegetables like tomatoes Denies any signs and symptoms of bleeding or clotting or unusual bruising Bleeding, bruising, clotting discussed Nutritional guidance given: food list reviewed and pt will have a serving of cooked broccoli today Dose: already took todays dose so will decrease tomorrow's dose to 5 mg(7.5mg) and then resume usual dose of 7.5mg X 6 days and 10mg X 1 day F/U INR Date : 1 week?? Patient verbalizing understanding of instructions given. 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
== END 2024-05-08 09:04 | disposition home or self-care (01) ==
LOC: HO.ACS 08:40
PROVIDERS: PCP Internal Medicine; Visit Provider Internal Medicine
DX: Z79.01 Long term (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 (principal)

== ENCOUNTER → 2024-05-08 08:40 | Outpatient (BNVA) | payer MEDICARE, MEDICAID, SELFPAY | PROVIDERS: PCP Internal Medicine; Visit Provider Internal Medicine | DX: Z95.2 Presence of prosthetic heart valve (principal); Z79.01 Long term (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; Z51.81 Encounter for therapeutic drug level monitoring | CPT/HCPCS: 85610; 99211 ==

== ENCOUNTER 2024-05-11 12:54 | Outpatient (REF) | payer MEDICARE, MEDICAID, SELFPAY | END 2024-05-11 12:55 | disposition home or self-care (01) | LOC: HO.HAP 12:54 | PROVIDERS: Visit Provider Internal Medicine | DX: Z46.1 Encounter for fitting and adjustment of hearing aid (principal) | CPT/HCPCS: 92592 ==

== ENCOUNTER 2024-05-15 08:11 | Outpatient (AMB) | payer MEDICARE, MEDICAID, SELFPAY ==
[2024-05-15 08:35] LABS: Prothrombin Time Whole Bld POC 43.8 sec (11.1-13.5); ~PT, ~INR - Anti Coag Clinic 3.7 (0.9-1.1)
--- NOTE | 2024-05-15 08:37 | MHC.OFFVISCO ---
Intake Intake Visit Reasons: Anticoagulation Allergies amiodarone Allergy (Intermediate, Verified 05/15/24 08:27) Swelling Medication List - Last Reconciled 05/15/24 by Fannie Thomason RN albuterol sulfate 90 mcg/actuation (Ventolin HFA) 2 puffs inhalation Q4-6H PRN amoxicillin-pot clavulanate 875-125 mg 1 tab PO BID atorvastatin 20 mg PO DAILY empagliflozin (Jardiance) 10 mg PO DAILY ferrous sulfate 325 mg PO DAILY@1600 rvimdulmnyq-fhyzxtfmb-nznvrlzn 200-62.5-25 mcg (Trelegy Ellipta) 1 ea inhalation DAILY furosemide One tablet in a.m. and half tablet at noon orally 2 times a day; levothyroxine 25 mcg PO DAILY@0600 sertraline 200 mg PO DAILY sotalol 120 mg PO BID warfarin 2.5 mg See Protocol PO QWEEK zolpidem 5 mg PO BEDTIME PRN Nursing Note INR 3.7-?? out of therapeutic range of 2.5-3.5 Medications and supplements reviewed Patient status: yeast infection under breast/groins Medications or supplements: ketoconazole 2% bid Diet: same Denies any signs and symptoms of bleeding or clotting or unusual bruising Bleeding, bruising, clotting discussed Nutritional guidance given: eat greens to lower inr Dose: 5mg today then cont reg 7.5mg x 6, 10mg x 1 F/U INR Date : 1 week? Patient verbalizing understanding of instructions given. 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
== END 2024-05-15 08:45 | disposition home or self-care (01) ==
LOC: HO.ACS 08:11
PROVIDERS: PCP Internal Medicine; Visit Provider Internal Medicine
DX: Z79.01 Long term (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 (principal)

== ENCOUNTER → 2024-05-15 08:11 | Outpatient (BNVA) | payer MEDICARE, MEDICAID, SELFPAY | PROVIDERS: PCP Internal Medicine; Visit Provider Internal Medicine | DX: Z95.2 Presence of prosthetic heart valve (principal); Z79.01 Long term (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; Z51.81 Encounter for therapeutic drug level monitoring | CPT/HCPCS: 85610; 99211 ==

== ENCOUNTER 2024-05-20 09:03 | Outpatient (AMB) | payer MEDICARE, MEDICAID, SELFPAY ==
--- NOTE | 2024-05-20 09:16 | MHC.OFFVISCO ---
Intake Intake Visit Reasons: Anticoagulation Allergies amiodarone Allergy (Intermediate, Verified 05/20/24 09:07) Swelling Medication List - Last Reconciled 05/20/24 by Cynthia Morrissey RN albuterol sulfate 90 mcg/actuation (Ventolin HFA) 2 puffs inhalation Q4-6H PRN atorvastatin 20 mg PO DAILY empagliflozin (Jardiance) 10 mg PO DAILY ferrous sulfate 325 mg PO DAILY@1600 hawnnpsuabx-mddfxgdxg-bttdkgkw 200-62.5-25 mcg (Trelegy Ellipta) 1 ea inhalation DAILY furosemide One tablet in a.m. and half tablet at noon orally 2 times a day; ketoconazole 2% 1 appl topical BID levothyroxine 25 mcg PO DAILY@0600 sertraline 200 mg PO DAILY sotalol 120 mg PO BID warfarin 2.5 mg See Protocol PO QWEEK zolpidem 5 mg PO BEDTIME PRN Nursing Note pt had lab work today request to be seen today in [facility] pt added to schedule INR: 3.1 in therapeutic range Medications and supplements reviewed- has antifungal med that may be refilled in May- it was explained even though it is topical it still can slightly raise the INR and to eat just a few more greens No changes in health, diet, medications, or supplements, Denies any signs and symptoms of bleeding or bruising or clotting. Bleeding, bruising, clotting discussed Nutritional guidance given - eat a mix of fruits and vegetables, when usuing antifungals increase greens just a little, also if she resumes her bariatric diet with the shakes and the bars to inform acs as that diet can lower the INR due to the high protein and vitk Dose: keep same 10mg x 1 day/ 7.5mg x 6 days F/U INR: 1 week same day as Dr Nelson Patient verbalizes understanding of instructions given Anti-Coag Initial Assessment Social Hx Patient Tobacco Use Status: Former Tobacco user Tobacco use type: Cigarette alcohol intake: never Alcohol intake frequency: holidays/special occasions only Questionnaires HAS-BLED Does the patient had uncontrolled Hypertension?: No Does the patient have renal disease?: No Does the patient have liver disease?: No Does the patient have a history of stroke?: No Has the patient had major bleeding or predisposition to bleeding?: No Does the patient have labile INRs?: Yes Is the patient over 65 years of age?: Yes Is the patient on medications that gives them a predisposition to bleeding?: Yes Does the patient use alcohol?: Yes HAS-BLED Score: 4 CHADSVASC Age: 66-74 Gender: Female Does the patient have a history of CHF?: Yes Does the patient have a history of Hypertension?: Yes Does the patient have a history of Stroke/TIA/Thromboembolism?: No Does the patient have a history of Vascular Disease (prior CO, PAD or aortic plaque)?: Yes Does the patient have a history of Diabetes?: No CHADS VACS Score: 5 Mark Prediction Score Rsk VTE Active Cancer: No Previous VTE, excluding superficial vein thrombosis: No Reduced mobility: No Already known Thrombophilic Condition: Yes (hx of d- dimer elevation, pulmonary nodule ) With-in last month Trauma and/or Surgery: No Elderly 70 year or older: No Heart and/or Respiratory Failure: No Acute Myocardial infarction and/or Ischemic Stroke: No Acute Infection and/or Rheumatologic Disorder: No Obesity (BMI 30 or greater): No Ongoing Hormonal Treatment: No Score: 3 Mark Score less than 4; Low Risk of VTE Mark Score 4 or greater; High Risk of VTE Coding Level of Care Code Est Patient Level 1 Diagnoses Current use of anticoagulant therapy Z79.01 Assessment & Plan Assessment & Plan (1) Current use of anticoagulant therapy: Code(s): Z79.01 - USP (current) use of anticoagulants
[2024-05-20 09:17] LABS: Prothrombin Time Whole Bld POC 37.6 sec (11.1-13.5); ~PT, ~INR - Anti Coag Clinic 3.1 (0.9-1.1)
== END 2024-05-20 09:37 | disposition home or self-care (01) ==
LOC: HO.ACS 09:03
PROVIDERS: PCP Internal Medicine; Visit Provider Internal Medicine
DX: Z79.01 Long term (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 (principal)

== ENCOUNTER → 2024-05-20 09:03 | Outpatient (BNVA) | payer MEDICARE, MEDICAID, SELFPAY | PROVIDERS: PCP Internal Medicine; Visit Provider Internal Medicine | DX: Z95.2 Presence of prosthetic heart valve (principal); Z79.01 Long term (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; Z51.81 Encounter for therapeutic drug level monitoring | CPT/HCPCS: 85610; 99211 ==

== ENCOUNTER 2024-05-26 08:38 | Outpatient (REF) | payer MEDICARE, MEDICAID, SELFPAY ==
[2024-05-26 10:40] LABS: Anion Gap 12 (12-20); B Type Natriuretic Peptide 124 pg/mL (<100); Blood Urea Nitrogen 13 mg/dL (9-16); Calcium 9.6 mg/dL (8.4-10.2); Carbon Dioxide 26 mmol/L (22-29); Chloride 106 mmol/L (96-108); Estimated Glomerular Filt Rate > 60; Glucose Random 98 mg/dL (60-115); Potassium 4.1 mmol/L (3.3-5.1); Sodium 140 mmol/L (135-145)
== END 2024-05-26 08:39 | disposition home or self-care (01) ==
LOC: HO.LAB 08:38
PROVIDERS: PCP Internal Medicine; Visit Provider Internal Medicine Cardiovascular Disease
DX: I48.19 Other persistent atrial fibrillation (principal); I50.32 Chronic diastolic (congestive) heart failure; Z95.2 Presence of prosthetic heart valve; Z95.0 Presence of cardiac pacemaker; Z51.81 Encounter for therapeutic drug level monitoring; Z79.01 Long term (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
CPT/HCPCS: 36415; 80048; 83880; 85610; 93005; 93280; 99211; 99212

== ENCOUNTER 2024-05-26 08:38 | Outpatient (AMB) | payer MEDICARE, MEDICAID, SELFPAY ==
--- NOTE | 2024-05-26 08:40 | A.OFFVIS_ITS ---
Vital Signs 05/26/24 08:41 Height 5 ft 2 in Weight 178 lb 9.191 oz BMI 32.7 BP 126/80 Blood Pressure Location Lt brachial Position Sitting Pulse 71 Intake Visit Reasons: 3 mth f/up w/ pacer ck & Echo test Intake Note: 3 month follow-up with echo result and Medtronic check c/o sob with activity Cabinet Worker Required: No Allergies amiodarone Allergy (Intermediate, Verified 05/26/24 09:53) Swelling Medication List - Last Reconciled 05/26/24 by Luis Antonio Nelson MD albuterol sulfate 90 mcg/actuation (Ventolin HFA) 2 puffs inhalation Q4-6H PRN atorvastatin 20 mg PO DAILY cyanocobalamin (vitamin B-12) (Vitamin B-12) 500 mcg PO DAILY empagliflozin (Jardiance) 10 mg PO DAILY ferrous sulfate 325 mg PO DAILY@1600 aylmbqfjnvc-vxkangyrt-xkfwvxgy 200-62.5-25 mcg (Trelegy Ellipta) 1 ea inhalation DAILY furosemide One tablet in a.m. and half tablet at noon orally 2 times a day; ketoconazole 2% 1 appl topical BID levothyroxine 25 mcg PO DAILY@0600 sertraline 200 mg PO DAILY sotalol 120 mg PO BID warfarin 2.5 mg See Protocol PO QWEEK zolpidem 5 mg PO BEDTIME PRN HPI Comments Details: Nubia comes for follow-up. She complains of increasing shortness of breath. She also says she has gained about 15 lb and mostly abdominal distension and has been taking her diuretics at current dose of 60 mg. She did not increase her diuretics as he has been instructed to her in the past. She thinks this might be related to fat and wants a weight loss injection. She remains in persistent atrial fibrillation. She has been taking warfarin therapy. Her recent echocardiogram showed normal LV ejection fraction with normally function bioprosthetic aortic valve and mechanical mitral valve with elevated right atrial pressures. She denies any exertional chest pain. Denies any palpitations. Denies any lightheadedness, syncope. No bleeding issues or neurologic events. [facility] Medical History Implantable loop recorder present Persistent atrial fibrillation PAF (paroxysmal atrial fibrillation) Increasing shortness of breath Encounter for interrogation of cardiac pacemaker Subtherapeutic international normalized ratio (INR) Heart failure Cardiac pacemaker Nocturnal hypoxemia (~08/15/23) Sinus pause History of cardioversion Interstitial lung disease COPD (chronic obstructive pulmonary disease) Pulmonary nodule Atrial flutter with rapid ventricular response COPD (chronic obstructive pulmonary disease) Exercise hypoxemia Interstitial lung disease Bronchitis due to Staphylococcus aureus History of transcatheter aortic valve replacement (TAVR) Acute diastolic CHF (congestive heart failure) Paroxysmal atrial fibrillation Abnormal EKG Hypoxia Interstitial lung disease Anemia Atrial flutter Obesity (HFpEF) heart failure with preserved ejection fraction Aortic stenosis Current use of anticoagulant therapy Surgical History Status post transcatheter aortic valve replacement Hx of mitral valve replacement (~2004) Status post placement of cardiac pacemaker H/O heart surgery History of sleeve gastrectomy (~2017) Hx of transesophageal echocardiography (SHELIA) for monitoring (~2015) Hx of section Family History Father No problems noted. Mother CVD (cardiovascular disease) Social History Household Members: Family Housing: House Do you presently have visiting nurse or other home services: Yes Alcohol intake: never Patient Tobacco Use Status: Former Tobacco user Tobacco use type: Cigarette Years Smoked: 29 e-Cigarette/Vaping Use: Never Used Second Hand Smoke Exposure: No Advance Directives Date on File: 08/28/22 service: No Current occupational status: disabled Review of Systems Const Denies chills, Denies fatigue, Denies fever(s), Denies frequent falls, Denies weakness, Denies weight gain and Denies weight loss ENT Denies dizziness Card Denies chest pain, Denies leg edema, Denies lightheadedness, Denies palpitations, Denies dyspnea, Denies dyspnea on exertion, Denies orthopnea and Denies other (loss of consciousness) Resp Denies cough, Denies dyspnea and Denies dyspnea on exertion GI Denies hematochezia and Denies change in stool character Musc Denies abnormal gait, Denies muscle weakness, Denies numbness, Denies radiating pain into limb and Denies tingling Neuro Denies abnormal gait, Denies dizziness, Denies frequent falls, Denies numbness, Denies tingling and Denies weakness Endo Denies fatigue and Denies palpitations Physical Exam Vital Signs: Last Vital Signs Pulse 71 05/26/24 08:41 BP 126/80 05/26/24 08:41 BMI result Body Mass Index 32.7 Const General: cooperative, comfortable, no acute distress, alert, awake, Physically active and well groomed Nutritional Appearance: overweight Orientation/consciousness: patient oriented x3 Limitations: no limitations Neck Neck: Yes trachea midline, Yes supple and Yes JVD Resp Effort & Inspection: normal respiratory effort Auscultation: crackles (coarse) bilateral at the base, no rales, wheezes and diminished lung sounds Cardio Jugular venous distension: no JVD Palpation: normal PMI Rate: regular rate Heart sounds: S2 normal heart sound present, no click, no gallops, Murmur heart sound present systolic early and Other heart sounds present (Mower opening and closing click of Saint Alex mitral valve) GI Inspection: Yes distended Auscultation: normal bowel sounds Skin General skin exam: no rashes or lesions noted Neuro General: patient oriented x3 and no focal motor deficits Extrem General: Yes no clubbing, cyanosis or edema Office Procedures Cardiac Device Check Cardiac Device Check Details: Dual-chamber Medtronic pacemaker which was reprogrammed from MVP mode to DDIR due to persistent atrial fibrillation noted. Ventricular capture thresholds adequate. Atrial capture thresholds not checked. Ventricular sensing is adequate. Pacing lead impedance is stable. Battery life adequate. [id number] Cardiac Device Check, pacemaker dual lead Procedure code (CPT) selection complete EKG Details: EKG shows ventricular paced rhythm 75221-[id number], Complete Results AMB INR Fingerstick AMB INR Fingerstick 2.9 Last Edit by Cynthia Morrissey RN on 05/26/24 10:09 manual entry Assessment & Plan Assessment & Plan (1) Persistent atrial fibrillation: Code(s): I48.19 - Other persistent atrial fibrillation Category: Medical Plan: Persistent but rate control atrial fibrillation with increasing symptoms most likely related to persistent atrial fibrillation LV synchrony. In the past she has done extremely well with rhythm control approach. At this point time I think she needs to pursue rhythm control approach. I have sent a message to to see if she can be started on amiodarone therapy for interstitial lung disease as resolved and closely follow. May require noncontrast CT as well as pulmonary function test to establish this. If there is clearance from Pulmonary will start amiodarone loading 400 mg b.i.d. for 2 weeks followed by cardioversion and stop sotalol therapy. This was discussed. Currently on warfarin therapy being followed by [facility]. Maintain target INR between 2.5 and 3.5. (2) (HFpEF) heart failure with preserved ejection fraction: Code(s): I50.30 - Unspecified diastolic (congestive) heart failure Category: Medical Qualifiers: Heart failure chronicity: chronic Qualified Code(s): I50.32 - Chronic diastolic (congestive) heart failure Plan: Increasing exertional shortness of breath as well as weight gain with abdominal distention with echo showing increased right atrial pressures. I have advised her to increase her Lasix to 40 mg b.i.d.. Daily weight monitoring avoidance of salt loading was discussed. Can go back down to 40 and 20 once her weight is back to her baseline. Continue Jardiance. Rhythm control has what has helped her the most. Will obtain blood work today. 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 Valve is working well. Continue warfarin therapy being followed by [facility]. Maintain target INR between 2.5 and 3.5. SBE prophylaxis (4) Status post transcatheter aortic valve replacement: Code(s): Z95.2 - Presence of prosthetic heart valve Category: Medical Plan: Status post transcatheter aortic valve replacement severe aortic stenosis failure. Has done well from that perspective. The valve is working well. Continue warfarin therapy. SBE prophylaxis as per ACC/[facility] guidelines. Continue statin therapy with target goal LDL less than 100 mg/dL. (5) Status post placement of cardiac pacemaker: Comment: Jun 20, 2023. charming charlie single chamber Code(s): Z95.0 - Presence of cardiac pacemaker Category: Medical Plan: Cardiac pacemaker in-situ for sick sinus syndrome. Currently ventricularly pacer dependent. Will continue monitor remotely. Follow up in the clinic in 3 months time, sooner p.r.n.. Greater than 40 minutes was spent in managing his complex care Orders: Orders B Type Natriuretic Peptide Today I50.32 - Chronic diastolic (congestive) heart failure Basic Metabolic Panel Today I50.32 - Chronic diastolic (congestive) heart failure Medications: Changed From furosemide One tablet in a.m. and half tablet at noon orally 2 times a day; 60 tabs 5RF To furosemide 40 mg PO BID 60 tabs 5RF Coding Level of Care Code Est Pt Level 5 (29305) Diagnoses Persistent atrial fibrillation I48.19 Chronic heart failure with preserved ejection fraction I50.32 Heart failure chronicity: chronic Hx of mitral valve replacement Z95.2 Status post transcatheter aortic valve replacement Z95.2 Status post placement of cardiac pacemaker Z95.0 CPT Codes Cardiac Device Check - Cardiac Device 2: [id number] Cardiac Device Check, pacemaker dual lead ([id number]) EKG - CPT: 99260-[id number], Complete ([id number])
[2024-05-26 08:41] VITALS: BP 126/80; PULSE 71; BMI 32.7
== END 2024-05-26 09:15 | disposition home or self-care (01) ==
PROVIDERS: PCP Internal Medicine; Visit Provider Internal Medicine Cardiovascular Disease
DX: I48.19 Other persistent atrial fibrillation (principal); I50.32 Chronic diastolic (congestive) heart failure; Z95.2 Presence of prosthetic heart valve; Z95.0 Presence of cardiac pacemaker; R94.31 Abnormal electrocardiogram [ECG] [EKG]
CPT/HCPCS: 93010; 93280; 99215

== ENCOUNTER 2024-05-26 09:51 | Outpatient (AMB) | payer MEDICARE, MEDICAID, SELFPAY ==
--- NOTE | 2024-05-26 10:13 | MHC.OFFVISCO ---
Intake Intake Visit Reasons: Anticoagulation Allergies amiodarone Allergy (Intermediate, Verified 05/26/24 09:53) Swelling Medication List - Last Reconciled 05/26/24 by Cynthia Morrissey RN albuterol sulfate 90 mcg/actuation (Ventolin HFA) 2 puffs inhalation Q4-6H PRN atorvastatin 20 mg PO DAILY cyanocobalamin (vitamin B-12) (Vitamin B-12) 500 mcg PO DAILY empagliflozin (Jardiance) 10 mg PO DAILY ferrous sulfate 325 mg PO DAILY@1600 bkmkjtlobqi-aogxqrgwp-jsjvbpqc 200-62.5-25 mcg (Trelegy Ellipta) 1 ea inhalation DAILY furosemide 40 mg PO BID ketoconazole 2% 1 appl topical BID levothyroxine 25 mcg PO DAILY@0600 sertraline 200 mg PO DAILY sotalol 120 mg PO BID warfarin 2.5 mg See Protocol PO QWEEK zolpidem 5 mg PO BEDTIME PRN Nursing Note INR: 2.9 in therapeutic range Medications and supplements reviewed- increasing furosemide from 60mg to 80 mg - may slightly lower INR Back in afib - being monitored by Dr Nelson - Denies any signs and symptoms of bleeding or bruising or clotting. Bleeding, bruising, clotting discussed Nutritional guidance given - eat a mix of fruits and vegetables Dose: keep same for now 10mg x 1 day/ 7.5mg x 6 days F/U INR: 1 week Patient verbalizes understanding of instructions given Anti-Coag Initial Assessment Social Hx Patient Tobacco Use Status: Former Tobacco user Tobacco use type: Cigarette alcohol intake: never Alcohol intake frequency: holidays/special occasions only Coding Level of Care Code Est Patient Level 1 Diagnoses Current use of anticoagulant therapy Z79.01 Results AMB INR Fingerstick AMB INR Fingerstick 2.9 Last Edit by Cynthia Morrissey RN on 05/26/24 10:09 manual entry Assessment & Plan Assessment & Plan (1) Current use of anticoagulant therapy: Code(s): Z79.01 - longterm (current) use of anticoagulants
[2024-05-26 10:35] LABS: Prothrombin Time Whole Bld POC 34.6 sec (11.1-13.5); ~PT, ~INR - Anti Coag Clinic 2.9 (0.9-1.1)
== END 2024-05-26 10:23 | disposition home or self-care (01) ==
LOC: HO.ACS 09:51
PROVIDERS: PCP Internal Medicine; Visit Provider Internal Medicine
DX: Z79.01 Long term (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 (principal)

== ENCOUNTER 2024-05-27 15:12 | Outpatient (AMB) | payer MEDICARE, MEDICAID, SELFPAY ==
[2024-05-27 15:15] VITALS: BP 112/70; PULSE 88; O2SAT 94; BMI 32.7
--- NOTE | 2024-05-27 15:15 | MHC.OFFVIS ---
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: No Allergies No Known Allergies Allergy (Verified 05/27/24 15:32) Medication List - Last Reconciled 05/27/24 by Mary Ellen Brumfield MD albuterol sulfate 90 mcg/actuation (Ventolin HFA) 2 puffs inhalation Q4-6H PRN atorvastatin 20 mg PO DAILY cyanocobalamin (vitamin B-12) (Vitamin B-12) 500 mcg PO DAILY empagliflozin (Jardiance) 10 mg PO DAILY ferrous sulfate 325 mg PO DAILY@1600 cnhrtomdfih-hihvktiox-lnwcxrzi 200-62.5-25 mcg (Trelegy Ellipta) 1 ea inhalation DAILY furosemide 40 mg PO BID ketoconazole 2% 1 appl topical BID levothyroxine 25 mcg PO DAILY@0600 sertraline 200 mg PO DAILY sotalol 120 mg PO BID warfarin 2.5 mg See Protocol PO QWEEK zolpidem 5 mg PO BEDTIME PRN Do you need a note to return to daycare/school/sports/work: No HPI HPI ILD: Details: 68 years old very pleasant female is being treated for chronic obstructive pulmonary disease, and also previously suspected interstitial lung disease. Retrospectively her radiologic picture indicating interstitial lung disease may have been due to congestive heart failure. Anyway with the suspicion of ILD she could not use amiodarone. From pulmonary point of view she is doing very well. Has only mild intermittent cough, no wheezing, gets around without any significant shortness of breath. Her language assistant, Dr. Lockett has sent a message that she is having recurrent bouts of atrial fibrillation, and she would benefit from the use of amiodarone. Thus we need to recheck her for any possible residual interstitial lung disease. She also has obstructive sleep apnea and uses CPAP at night with oxygen supplementation. She uses the CPAP very regularly, but sometimes when she takes Ambien 10 mg, for sleep, she forgets to put on the CPAP. [facility] Medical History Implantable loop recorder present Persistent atrial fibrillation PAF (paroxysmal atrial fibrillation) Increasing shortness of breath Encounter for interrogation of cardiac pacemaker Subtherapeutic international normalized ratio (INR) Heart failure Cardiac pacemaker Nocturnal hypoxemia (~08/15/23) Sinus pause History of cardioversion Interstitial lung disease COPD (chronic obstructive pulmonary disease) Pulmonary nodule Atrial flutter with rapid ventricular response COPD (chronic obstructive pulmonary disease) Exercise hypoxemia Interstitial lung disease Bronchitis due to Staphylococcus aureus History of transcatheter aortic valve replacement (TAVR) Acute diastolic CHF (congestive heart failure) Paroxysmal atrial fibrillation Abnormal EKG Hypoxia Interstitial lung disease Anemia Atrial flutter Obesity (HFpEF) heart failure with preserved ejection fraction Aortic stenosis Current use of anticoagulant therapy Surgical History Status post transcatheter aortic valve replacement Hx of mitral valve replacement (~2004) Status post placement of cardiac pacemaker H/O heart surgery History of sleeve gastrectomy (~2017) Hx of transesophageal echocardiography (SHELIA) for monitoring (~2015) Hx of section Family History Father No problems noted. Mother CVD (cardiovascular disease) Social History Household Members: Family Housing: House Do you presently have visiting nurse or other home services: Yes Alcohol intake: never Patient Tobacco Use Status: Former Tobacco user Tobacco use type: Cigarette Years Smoked: 29 e-Cigarette/Vaping Use: Never Used Second Hand Smoke Exposure: No Advance Directives Date on File: 08/28/22 service: No Current occupational status: disabled Review of Systems Const All systems reviewed & are unremarkable except as noted in HPI and below Reports fatigue and Reports lethargy Eyes Reports no additional complaints ENT Reports no additional complaints Card Denies chest pain, Denies irregular heart rhythm, Denies leg edema and Reports dyspnea on exertion Resp Reports as per HPI and Reports dyspnea on exertion GI Reports no additional complaints Reports no additional complaints Musc Reports no additional complaints Skin/Breast Reports system reviewed and no additional complaints, except as documented Neuro Reports no additional complaints Psych Reports depression (Controlled with sertraline) Endo Reports fatigue and Reports other (Being treated for hypothyroidism) Physical Exam Vital Signs: Last Vital Signs Pulse 88 05/27/24 15:15 BP 112/70 05/27/24 15:15 Pulse Ox 94 05/27/24 15:15 Oxygen Delivery Method Room Air 05/27/24 15:15 BMI result Body Mass Index 32.7 Const General: comfortable (But short of breath), no acute distress, alert and awake Orientation/consciousness: patient oriented x3 HEENT Head: Yes normal to inspection General nose exam: No nasal polyps present and No nasal discharge present Face and sinus: Yes sinuses nontender Mouth: oropharynx normal Throat: Yes posterior oropharynx normal Eyes General: appearance normal, both eyes and all related structures Neck Neck: Yes normal visual inspection, Yes no lymphadenopathy, Yes trachea midline and Yes no JVD Thyroid: Thyroid normal Chest Chest palpation & inspection: abnormal inspection of the chest (Midline scar from previous cardiac surgery), normal palpation of entire chest wall and no tenderness Resp Other: Breath sounds are distant but equal on both sides. Prolonged expiratory phase, No wheezes rhonchi or crepitations are heard today. Cardio Palpation: normal PMI Rate: regular rate Rhythm: regular rhythm Heart sounds: no gallops and no murmurs GI Palpation (GI): Soft to palpation, nontender, No hepatosplenomegaly present and no masses Auscultation: normal bowel sounds Back/Spine/Pelvis Thoracic/Lumbar Spine: thoracic and lumbar spine normal to inspection Skin General skin exam: no rashes or lesions noted Neuro General: patient oriented x3 and no focal motor deficits Cranial nerves: Yes CN's II-XII intact bilaterally Extrem General: Yes normal to inspection, Yes no clubbing, cyanosis or edema and Yes no calf tenderness Psych Appearance: grossly normal and well kempt Speech and movement: Normal speech and movement present Assessment & Plan Assessment & Plan (1) COPD (chronic obstructive pulmonary disease): Comment: This patient is being treated for chronic obstructive pulmonary disease. She has done very well with the use of Trelegy Ellipta once a day It remains quite stable and well controlled. Code(s): J44.9 - Chronic obstructive pulmonary disease, unspecified Category: Medical Plan: Continue to use Trelegy Ellipta 1 inhalation daily Albuterol HFA( ventolin ) 1 or 2 puffs Q 4 hours only p.r.n. (2) Nocturnal hypoxemia: Onset Date: ~08/15/23 Comment: ON THE BASELINE STUDY PATIENT DID HAVE NOCTURNAL HYPOXEMIA. IT WAS CORRECTED WITH THE CPAP AT PRESSURE. OF 7 CM HOWEVER PATIENT IS STILL PUTTING ON THE OXYGEN AT NIGHT ALONG WITH THE CPAP, I TOLD HER NOT TO EXCEED 2 L/MINUTE. Code(s): G47.34 - Idiopathic sleep related nonobstructive alveolar hypoventilation Category: Medical Plan: OK to continue using O2 2 L/minute along with the CPAP at night (3) Interstitial lung disease: Comment: Patient has had history of interstitial lung disease, which was considered to be due to amiodarone. * however there is possibility that what we interpret as ILD, may be due to congestive heart failure . Anyway she has improved significantly. On clinical examination does not seem to be any residual interstitial lung disease. The last CT scan has shown marked improvement , but there is still residual but minimal interstitial lung disease. Code(s): J84.9 - Interstitial pulmonary disease, unspecified Category: Medical Plan: Will repeat CT scan , and if there is no residual ILD, then she would be cleared for amiodarone treatment again with close follow-up. (4) Pulmonary nodule: Code(s): R91.1 - Solitary pulmonary nodule Category: Medical Plan: There has been small nodular lesion in the right upper lobe along with 1 cm ground-glass opacity. Most likely benign and due to inflammation, but deserves close follow-up. Plan CT scan of the chest is being ordered Orders: Orders CT chest wo con - High Res Today J84.9 - Interstitial pulmonary disease, unspecified, R91.1 - Solitary pulmonary nodule Coding Level of Care Code Est Pt Level 3 (67641) Diagnoses COPD (chronic obstructive pulmonary disease) J44.9 Nocturnal hypoxemia G47.34 Interstitial lung disease J84.9 Pulmonary nodule R91.1
== END 2024-05-27 15:29 | disposition home or self-care (01) ==
PROVIDERS: PCP Internal Medicine; Visit Provider Internal Medicine
DX: J44.9 Chronic obstructive pulmonary disease, unspecified (principal); G47.34 Idiopathic sleep related nonobstructive alveolar hypoventilation; J84.9 Interstitial pulmonary disease, unspecified; R91.1 Solitary pulmonary nodule
CPT/HCPCS: 99213

== ENCOUNTER → 2024-05-27 15:12 | Outpatient (BNVA) | payer MEDICARE, MEDICAID, SELFPAY | PROVIDERS: PCP Internal Medicine; Visit Provider Internal Medicine | DX: J44.9 Chronic obstructive pulmonary disease, unspecified (principal); J84.9 Interstitial pulmonary disease, unspecified; G47.34 Idiopathic sleep related nonobstructive alveolar hypoventilation; R91.1 Solitary pulmonary nodule | CPT/HCPCS: 99212 ==

== ENCOUNTER 2024-06-01 08:26 | Outpatient (AMB) | payer MEDICARE, MEDICAID, SELFPAY ==
[2024-06-01 08:35] LABS: Prothrombin Time Whole Bld POC 30.5 sec (11.1-13.5); ~PT, ~INR - Anti Coag Clinic 2.5 (0.9-1.1)
--- NOTE | 2024-06-01 08:35 | MHC.OFFVISCO ---
Intake Intake Visit Reasons: Anticoagulation Allergies No Known Allergies Allergy (Verified 06/01/24 08:28) Medication List - Last Reconciled 06/01/24 by Fannie Thomason RN albuterol sulfate 90 mcg/actuation (Ventolin HFA) 2 puffs inhalation Q4-6H PRN atorvastatin 20 mg PO DAILY cyanocobalamin (vitamin B-12) (Vitamin B-12) 500 mcg PO DAILY empagliflozin (Jardiance) 10 mg PO DAILY ferrous sulfate 325 mg PO DAILY@1600 vprokoyofxr-qooicjqsj-jxjxcmep 200-62.5-25 mcg (Trelegy Ellipta) 1 ea inhalation DAILY furosemide 40 mg PO BID ketoconazole 2% 1 appl topical BID levothyroxine 25 mcg PO DAILY@0600 sertraline 200 mg PO DAILY sotalol 120 mg PO BID warfarin 2.5 mg See Protocol PO QWEEK zolpidem 5 mg PO BEDTIME PRN Nursing Note INR: 2.5- in therapeutic range of 2.5-3.5 Medications and supplements reviewed- now on vit B12 po- no interaction per micromedex No changes in health, diet, medications, or supplements, Denies any signs and symptoms of bleeding or bruising or clotting. Bleeding, bruising, clotting discussed Nutritional guidance given - no greens for 2-3 days, eat reds to raise Dose: 10mg x 1. 7.5mg x 6 F/U INR: 06/15/24 Patient verbalizes understanding of instructions given pt on vacation next week Anti-Coag Initial Assessment Social Hx Patient Tobacco Use Status: Former Tobacco user Tobacco use type: Cigarette alcohol intake: never Alcohol intake frequency: holidays/special occasions only Coding Level of Care Code Est Patient Level 1 Diagnoses Current use of anticoagulant therapy Z79.01 Assessment & Plan Assessment & Plan (1) Current use of anticoagulant therapy: Code(s): Z79.01 - roasterman (current) use of anticoagulants
== END 2024-06-01 08:41 | disposition home or self-care (01) ==
LOC: HO.ACS 08:26
PROVIDERS: PCP Internal Medicine; Visit Provider Internal Medicine
DX: Z79.01 Long term (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 (principal)

== ENCOUNTER → 2024-06-01 08:26 | Outpatient (BNVA) | payer MEDICARE, MEDICAID, SELFPAY | PROVIDERS: PCP Internal Medicine; Visit Provider Internal Medicine | DX: Z95.2 Presence of prosthetic heart valve (principal); Z79.01 Long term (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; Z51.81 Encounter for therapeutic drug level monitoring | CPT/HCPCS: 85610; 99211 ==

== ENCOUNTER 2024-06-05 08:58 | Outpatient (REF) | payer MEDICARE, MEDICAID, SELFPAY ==
--- NOTE | ~2024-06-05 | CT_ITS ---
EXAMINATION: CT CHEST WITHOUT CONTRAST CLINICAL INFORMATION: Interstitial pulmonary disease. COMPARISON: CT chest dated 12/12/2022. TECHNIQUE: Multidetector volumetric CT imaging of the chest was done. Axial MIP volume rendering provided. Sagittal and coronal reformatted images were obtained. This CT examination was performed using dose optimization techniques as appropriate, variously including the following: *Automated exposure control *Adjustment of mA and/or kV according to patient size (this includes techniques or standardized protocols for targeted exams where dose is matched to indication/reason for exam; i.e. 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 There have been prior mitral and tricuspid valvuloplasties and a TAVR stent placement. A dual-lead, dual-chamber pacemaker device is noted. LUNGS: There is mild centrilobular and paraseptal emphysema. Laterally within the right upper lobe (11:58), a 1.4 cm groundglass opacity is seen. This appears mildly increased from a measurement of 1.0 cm on 12/07/2022. No generalized increase is seen in peripheral interlobular septal markings. There is mild mid and lower lung field air-trapping. No new nodule, mass or gross infiltrate is seen. A stable prominent vessel with branching is redemonstrated within the left upper lobe (9:38). A 2 mm benign, pleural-based lymph node is again seen laterally within the right upper lobe (9:50). There is mild linear scars/subsegmental atelectasis within the lingula, without associated focal airway obstruction. There is generalized small airway thickening. The central airways appear patent. MEDIASTINUM: The thyroid is unremarkable. There are cardiac postoperative changes, as detailed above. No thoracic aortic aneurysm is seen. There are mild to moderate atherosclerotic calcifications of the great vessel origins and thoracic aorta. The main pulmonary artery shows a caliber of 4.4 cm (10:21), raising the possibility of pulmonary artery hypertension. No sizable mediastinal or hilar lymphadenopathy is seen. CORONARY ARTERY CALCIFICATION: Mild. There are left atrial mural calcifications. PLEURA: There is no pleural effusion. No pleural mass or thickening. AXILLA: No lymphadenopathy. UPPER ABDOMEN: There are postoperative changes of the stomach. The adrenal glands are unremarkable. OSSEOUS STRUCTURES: There is multi-level marked thoracic and upper lumbar spondylosis. CT/CT chest wo con - High Res IMPRESSION: 1. There are mild centrilobular predominant emphysematous changes. 2. There is a mildly increased 1.4 cm groundglass opacity noted within the right upper lobe, possibly infectious or inflammatory in etiology. Please correlate clinically. Given the interim increase, PET/CT evaluation may be considered. At a minimum, recommend CT follow-up in 6-12 months to ensure stability/clearance. 3. There is small airways thickening and mild air trapping, together suggesting obstructive small airways disease. 4. No thoracic lymphadenopathy or pleural effusion is seen. 5. Findings suggest possible pulmonary artery hypertension. 6. There are degenerative changes of the spine, without aggressive osseous lesion noted. Fleischner guidelines were followed. Electronically signed by: Corey Orozco MD 06/23/2024 11:27 AM EDT RP
== END 2024-06-05 08:59 | disposition home or self-care (01) ==
LOC: HO.CT 08:58
PROVIDERS: PCP Internal Medicine; Visit Provider Internal Medicine
DX: J84.9 Interstitial pulmonary disease, unspecified (principal); R91.1 Solitary pulmonary nodule
CPT/HCPCS: 71250

== ENCOUNTER 2024-06-15 08:32 | Outpatient (AMB) | payer MEDICARE, MEDICAID, SELFPAY ==
[2024-06-15 08:43] LABS: Prothrombin Time Whole Bld POC 47.3 sec (11.1-13.5); ~PT, ~INR - Anti Coag Clinic 3.9 (0.9-1.1)
--- NOTE | 2024-06-15 08:50 | MHC.OFFVISCO ---
Intake Intake Visit Reasons: Anticoagulation Allergies No Known Allergies Allergy (Verified 06/15/24 08:37) Medication List - Last Reconciled 06/15/24 by My Foley RN albuterol sulfate 90 mcg/actuation (Ventolin HFA) 2 puffs inhalation Q4-6H PRN atorvastatin 20 mg PO DAILY cyanocobalamin (vitamin B-12) (Vitamin B-12) 500 mcg PO DAILY empagliflozin (Jardiance) 10 mg PO DAILY ferrous sulfate 325 mg PO DAILY@1600 sztgpejvtlu-vczzubaax-llffrnzl 200-62.5-25 mcg (Trelegy Ellipta) 1 ea inhalation DAILY furosemide 40 mg PO BID ketoconazole 2% 1 appl topical BID levothyroxine 25 mcg PO DAILY@0600 sertraline 200 mg PO DAILY sotalol 120 mg PO BID warfarin 2.5 mg See Protocol PO QWEEK zolpidem 5 mg PO BEDTIME PRN Nursing Note INR 3.9?out of therapeutic range of 2.5-3.5 Medications and supplements reviewed Patient status: feels well, was on vacation last week Medications or supplements: no changes Diet: a little off usual diet as she was on vacation and not careful with her food choices Denies any signs and symptoms of bleeding or clotting or unusual bruising Bleeding, bruising, clotting discussed Nutritional guidance given: to have a serving of greens today but pt states she would rather drop today's dose to 7.5mg from 10mg Dose: today's dose decreased to 7.5mg (10mg) then resume usual dose of 7.5mg X 6 days and 10mg X 1 day F/U INR Date : 1 week?? Patient verbalizing understanding of instructions given. Anti-Coag Initial Assessment Social Hx Patient Tobacco Use Status: Former Tobacco user Tobacco use type: Cigarette alcohol intake: never Alcohol intake frequency: holidays/special occasions only Coding Level of Care Code Est Patient Level 1 Diagnoses Current use of anticoagulant therapy Z79.01 Assessment & Plan Assessment & Plan (1) Current use of anticoagulant therapy: Code(s): Z79.01 - FDC (current) use of anticoagulants
== END 2024-06-15 08:54 | disposition home or self-care (01) ==
LOC: HO.ACS 08:32
PROVIDERS: PCP Internal Medicine; Visit Provider Internal Medicine
DX: Z79.01 Long term (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 (principal)

== ENCOUNTER → 2024-06-15 08:32 | Outpatient (BNVA) | payer MEDICARE, MEDICAID, SELFPAY | PROVIDERS: PCP Internal Medicine; Visit Provider Internal Medicine | DX: Z95.2 Presence of prosthetic heart valve (principal); Z79.01 Long term (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; Z51.81 Encounter for therapeutic drug level monitoring | CPT/HCPCS: 85610; 99211 ==

== ENCOUNTER 2024-06-22 08:19 | Outpatient (AMB) | payer MEDICARE, MEDICAID, SELFPAY ==
[2024-06-22 08:32] LABS: Prothrombin Time Whole Bld POC 32.6 sec (11.1-13.5); ~PT, ~INR - Anti Coag Clinic 2.7 (0.9-1.1)
--- NOTE | 2024-06-22 08:39 | MHC.OFFVISCO ---
Intake Intake Visit Reasons: Anticoagulation Allergies No Known Allergies Allergy (Verified 06/22/24 08:25) Medication List - Last Reconciled 06/22/24 by My Foley, ASIF albuterol sulfate 90 mcg/actuation (Ventolin HFA) 2 puffs inhalation Q4-6H PRN atorvastatin 20 mg PO DAILY cyanocobalamin (vitamin B-12) (Vitamin B-12) 500 mcg PO DAILY empagliflozin (Jardiance) 10 mg PO DAILY ferrous sulfate 325 mg PO DAILY@1600 factluzzvvx-srndauduz-gydbrpqc 200-62.5-25 mcg (Trelegy Ellipta) 1 ea inhalation DAILY furosemide 40 mg PO BID ketoconazole 2% 1 appl topical BID levothyroxine 25 mcg PO DAILY@0600 sertraline 200 mg PO DAILY sotalol 120 mg PO BID warfarin 2.5 mg See Protocol PO QWEEK zolpidem 5 mg PO BEDTIME PRN Nursing Note INR: 2.7 in therapeutic range Medications and supplements reviewed No changes in health, diet, medications, or supplements, Denies any signs and symptoms of bleeding or bruising or clotting. 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
== END 2024-06-22 08:43 | disposition home or self-care (01) ==
LOC: HO.ACS 08:19
PROVIDERS: PCP Internal Medicine; Visit Provider Internal Medicine
DX: Z79.01 Long term (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 (principal)

== ENCOUNTER → 2024-06-22 08:19 | Outpatient (BNVA) | payer MEDICARE, MEDICAID, SELFPAY | PROVIDERS: PCP Internal Medicine; Visit Provider Internal Medicine | DX: Z95.2 Presence of prosthetic heart valve (principal); Z79.01 Long term (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; Z51.81 Encounter for therapeutic drug level monitoring | CPT/HCPCS: 85610; 99211 ==

== ENCOUNTER 2024-06-30 08:36 | Outpatient (AMB) | payer MEDICARE, MEDICAID, SELFPAY ==
[2024-06-30 09:00] LABS: Prothrombin Time Whole Bld POC 36.3 sec (11.1-13.5)
--- NOTE | 2024-06-30 09:09 | MHC.OFFVISCO ---
Intake Intake Visit Reasons: Anticoagulation Allergies No Known Allergies Allergy (Verified 06/30/24 08:52) Medication List - Last Reconciled 06/30/24 by My Foley RN albuterol sulfate 90 mcg/actuation (Ventolin HFA) 2 puffs inhalation Q4-6H PRN amiodarone 400 mg PO BID atorvastatin 20 mg PO DAILY cyanocobalamin (vitamin B-12) (Vitamin B-12) 500 mcg PO DAILY empagliflozin (Jardiance) 10 mg PO DAILY ferrous sulfate 325 mg PO DAILY@1600 mlxyfgpemck-jpmdaxmwd-yxutpora 200-62.5-25 mcg (Trelegy Ellipta) 1 ea inhalation DAILY furosemide 40 mg PO BID ketoconazole 2% 1 appl topical BID levothyroxine 25 mcg PO DAILY@0600 sertraline 200 mg PO DAILY warfarin 2.5 mg See Protocol PO QWEEK zolpidem 5 mg PO BEDTIME PRN Nursing Note INR: 3.0 in therapeutic range of 2.5-3.5 Medications and supplements reviewed: Pt started on amiodarone 400mg Bid and sotolol d/c'd No changes in health, diet, or supplements, Denies any signs and symptoms of bleeding or bruising or clotting. Bleeding, bruising, clotting discussed Nutritional guidance given Dose: decreased dose in 3 days to 2.5mg (7.5mg), usual dose of 7.5mg daily F/U INR: 07/06/24 Patient verbalizes understanding of instructions given Anti-Coag Initial Assessment Social Hx Patient Tobacco Use Status: Former Tobacco user Tobacco use type: Cigarette alcohol intake: never Alcohol intake frequency: holidays/special occasions only Coding Level of Care Code Est Patient Level 1 Diagnoses Current use of anticoagulant therapy Z79.01 Assessment & Plan Assessment & Plan (1) Current use of anticoagulant therapy: Code(s): Z79.01 - 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
== END 2024-06-30 09:18 | disposition home or self-care (01) ==
LOC: HO.ACS 08:36
PROVIDERS: PCP Internal Medicine; Visit Provider Internal Medicine
DX: Z79.01 Long term (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 (principal)

== ENCOUNTER → 2024-06-30 08:36 | Outpatient (BNVA) | payer MEDICARE, MEDICAID, SELFPAY | PROVIDERS: PCP Internal Medicine; Visit Provider Internal Medicine | DX: Z95.2 Presence of prosthetic heart valve (principal); Z79.01 Long term (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; Z51.81 Encounter for therapeutic drug level monitoring | CPT/HCPCS: 85610; 99211 ==

== ENCOUNTER → 2024-07-05 23:59 | Outpatient (BNV) | payer MEDICARE, MEDICAID, SELFPAY ==
--- NOTE | 2024-07-08 15:35 | MHC.OFFVIS ---
Intake Visit Reasons: Remote device check- medtronic Allergies No Known Allergies Allergy (Verified 07/06/24 08:23) [facility] Medical History Implantable loop recorder present Persistent atrial fibrillation PAF (paroxysmal atrial fibrillation) Increasing shortness of breath Encounter for interrogation of cardiac pacemaker Subtherapeutic international normalized ratio (INR) Heart failure Cardiac pacemaker Nocturnal hypoxemia (~08/15/23) Sinus pause History of cardioversion Interstitial lung disease COPD (chronic obstructive pulmonary disease) Pulmonary nodule Atrial flutter with rapid ventricular response COPD (chronic obstructive pulmonary disease) Exercise hypoxemia Interstitial lung disease Bronchitis due to Staphylococcus aureus History of transcatheter aortic valve replacement (TAVR) Acute diastolic CHF (congestive heart failure) Paroxysmal atrial fibrillation Abnormal EKG Hypoxia Interstitial lung disease Anemia Atrial flutter Obesity (HFpEF) heart failure with preserved ejection fraction Aortic stenosis Current use of anticoagulant therapy Surgical History Status post transcatheter aortic valve replacement Hx of mitral valve replacement (~2004) Status post placement of cardiac pacemaker H/O heart surgery History of sleeve gastrectomy (~2017) Hx of transesophageal echocardiography (SHELIA) for monitoring (~2015) Hx of section Family History Father No problems noted. Mother CVD (cardiovascular disease) Social History Household Members: Family Housing: House Do you presently have visiting nurse or other home services: Yes Alcohol intake: never Patient Tobacco Use Status: Former Tobacco user Tobacco use type: Cigarette Years Smoked: 29 e-Cigarette/Vaping Use: Never Used Second Hand Smoke Exposure: No Advance Directives Date on File: 08/28/22 service: No Current occupational status: disabled Office Procedures Cardiac Device Check Cardiac Device Check Details: Remote pacemaker report generated 07/05/2024. Pacemaker function is adequate. [place] of atrial fibrillation at 18.8% which seems to have improved [id number] Cardiac Device Interrogation, pacemaker Procedure code (CPT) selection complete Assessment & Plan Assessment & Plan (1) Status post placement of cardiac pacemaker: Comment: Jun 20, 2023. Medtronic single chamber Code(s): Z95.0 - Presence of cardiac pacemaker Category: Surgical Plan: See above Coding Level of Care Code Procedure Only Diagnoses Status post placement of cardiac pacemaker Z95.0 CPT Codes Cardiac Device Check - Cardiac Device 12: [id number] Cardiac Device Interrogation, pacemaker ([id number])
== END ==
PROVIDERS: PCP Internal Medicine; Visit Provider Internal Medicine Cardiovascular Disease
DX: I48.91 Unspecified atrial fibrillation (principal); Z95.0 Presence of cardiac pacemaker
CPT/HCPCS: 93294

== ENCOUNTER 2024-07-06 08:15 | Outpatient (AMB) | payer MEDICARE, MEDICAID, SELFPAY ==
[2024-07-06 08:31] LABS: Prothrombin Time Whole Bld POC 33.2 sec (11.1-13.5); ~PT, ~INR - Anti Coag Clinic 2.8 (0.9-1.1)
--- NOTE | 2024-07-06 08:43 | MHC.OFFVISCO ---
Intake Intake Visit Reasons: Anticoagulation Allergies No Known Allergies Allergy (Verified 07/06/24 08:23) Medication List - Last Reconciled 07/06/24 by Cynthia Morrissey RN albuterol sulfate 90 mcg/actuation (Ventolin HFA) 2 puffs inhalation Q4-6H PRN amiodarone 400 mg PO BID amoxicillin 1,000 mg PO BID atorvastatin 20 mg PO DAILY cyanocobalamin (vitamin B-12) (Vitamin B-12) 500 mcg PO DAILY empagliflozin (Jardiance) 10 mg PO DAILY ferrous sulfate 325 mg PO DAILY@1600 pfbervfpslr-rampimuwn-lymcarzl 200-62.5-25 mcg (Trelegy Ellipta) 1 ea inhalation DAILY furosemide 40 mg PO BID ketoconazole 2% 1 appl topical BID levothyroxine 25 mcg PO DAILY@0600 semaglutide (Ozempic) mg subcut sertraline 200 mg PO DAILY warfarin 2.5 mg See Protocol PO QWEEK zolpidem 5 mg PO BEDTIME PRN Nursing Note INR: 2.8 in therapeutic range-pt states she actually feels better now that she is back on the Amiodarone Medications and supplements reviewed *AMIODARONE 400MG BID X 15 DAYS THEN CARDIOVERSION THEN JONATHAN DOSE - ESTIMATED DATE ABOUT07/12/24 *CORTISONE INJECTION LAST WEEK AND 2 MORE THIS WEEK- POTENTIAL TO RAISE THE INR *AMOXICILLIN X 1 DAYS THIS WEEK FOR DENTAL APPT *STARTING OZEMPIC THIS SATURDAY Denies any signs and symptoms of bleeding or bruising or clotting. Bleeding, bruising, clotting discussed Nutritional guidance given - MAKE SURE TO HAVE GREENS OVER THE WEEKEND Dose: DECREASE WARFARIN DOSE TO 7.5MG DAILY F/U INR: THIS WEEK 07/10/24 DUE TO ALL THE MED CHANGES Patient verbalizes understanding of instructions given Anti-Coag Initial Assessment Social Hx Patient Tobacco Use Status: Former Tobacco user Tobacco use type: Cigarette alcohol intake: never Alcohol intake frequency: holidays/special occasions only Coding Level of Care Code Est Patient Level 1 Diagnoses Current use of anticoagulant therapy Z79.01 Assessment & Plan Assessment & Plan (1) Current use of anticoagulant therapy: Code(s): Z79.01 - custodial (current) use of anticoagulants
== END 2024-07-06 08:49 | disposition home or self-care (01) ==
LOC: HO.ACS 08:15
PROVIDERS: PCP Internal Medicine; Visit Provider Internal Medicine
DX: Z79.01 Long term (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 (principal)

== ENCOUNTER → 2024-07-06 08:15 | Outpatient (BNVA) | payer MEDICARE, MEDICAID, SELFPAY | PROVIDERS: PCP Internal Medicine; Visit Provider Internal Medicine | DX: Z95.2 Presence of prosthetic heart valve (principal); Z79.01 Long term (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; Z51.81 Encounter for therapeutic drug level monitoring | CPT/HCPCS: 85610; 99211 ==

== ENCOUNTER 2024-07-13 08:10 | Outpatient (AMB) | payer MEDICARE, MEDICAID, SELFPAY ==
--- NOTE | 2024-07-13 08:20 | MHC.OFFVISCO ---
Intake Intake Visit Reasons: Anticoagulation Allergies No Known Allergies Allergy (Verified 07/13/24 08:16) Medication List - Last Reconciled 07/13/24 by Fannie Thomason RN albuterol sulfate 90 mcg/actuation (Ventolin HFA) 2 puffs inhalation Q4-6H PRN amiodarone 400 mg PO BID amoxicillin 1,000 mg PO BID atorvastatin 20 mg PO DAILY cyanocobalamin (vitamin B-12) (Vitamin B-12) 500 mcg PO DAILY empagliflozin (Jardiance) 10 mg PO DAILY ferrous sulfate 325 mg PO DAILY@1600 iupooynfxkn-nldenlmfv-gbtuhlfw 200-62.5-25 mcg (Trelegy Ellipta) 1 ea inhalation DAILY furosemide 40 mg PO BID ketoconazole 2% 1 appl topical BID levothyroxine 25 mcg PO DAILY@0600 semaglutide (Ozempic) mg subcut sertraline 200 mg PO DAILY warfarin 2.5 mg See Protocol PO QWEEK zolpidem 5 mg PO BEDTIME PRN Nursing Note INR 3.6-?? out of therapeutic range of 2.5-3.5 Medications and supplements reviewed Patient status: pt states started amiodarone 400mg bid on 07/01/24- taking for 15 days- will taper on 07/16/24. pt states having cardioversion on 07/15/24. upcoming foot cortisone injection- no date yet Medications or supplements: cont on amiodarone 400mg bid until 07/16/24 Diet: appetite good, having bryant tomatoes Denies any signs and symptoms of bleeding or clotting or unusual bruising Bleeding, bruising, clotting discussed Nutritional guidance given: eat greens today Dose: cont 7.5mg x 7 F/U INR Date : saturday07/17/24 Patient verbalizing understanding of instructions given. Anti-Coag Initial Assessment Social Hx Patient Tobacco Use Status: Former Tobacco user Tobacco use type: Cigarette alcohol intake: never Alcohol intake frequency: holidays/special occasions only Coding Level of Care Code Est Patient Level 1 Diagnoses Current use of anticoagulant therapy Z79.01 Assessment & Plan Assessment & Plan (1) Current use of anticoagulant therapy: Code(s): Z79.01 - prison (current) use of anticoagulants
[2024-07-13 08:21] LABS: Prothrombin Time Whole Bld POC 43.6 sec (11.1-13.5); ~PT, ~INR - Anti Coag Clinic 3.6 (0.9-1.1)
== END 2024-07-13 08:50 | disposition home or self-care (01) ==
LOC: HO.ACS 08:10
PROVIDERS: PCP Internal Medicine; Visit Provider Internal Medicine
DX: Z79.01 Long term (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 (principal)

== ENCOUNTER → 2024-07-13 08:10 | Outpatient (BNVA) | payer MEDICARE, MEDICAID, SELFPAY | PROVIDERS: PCP Internal Medicine; Visit Provider Internal Medicine | DX: Z95.2 Presence of prosthetic heart valve (principal); Z79.01 Long term (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; Z51.81 Encounter for therapeutic drug level monitoring | CPT/HCPCS: 85610; 99211 ==

== ENCOUNTER 2024-07-14 10:41 | Outpatient (AMB) | payer MEDICARE, MEDICAID, SELFPAY ==
--- NOTE | 2024-07-14 10:43 | A.OFFVIS_ITS ---
Vital Signs 07/14/24 10:44 Height 5 ft 2 in Weight 178 lb BMI 32.6 BP 130/72 Blood Pressure Location Lt brachial Position Sitting Respiration 16 Pulse 93 Pulse Source Pulse Oximeter Pulse Oximetry (%) 92 Oxygen Delivery Method Room Air Intake Visit Reasons: Obstructive sleep apnea Allergies No Known Allergies Allergy (Verified 07/14/24 10:55) Medication List - Last Reconciled 07/14/24 by Mary Ellen Brumfield MD albuterol sulfate 90 mcg/actuation (Ventolin HFA) 2 puffs inhalation Q4-6H PRN amiodarone 400 mg PO BID amoxicillin 1,000 mg PO BID atorvastatin 20 mg PO DAILY cyanocobalamin (vitamin B-12) (Vitamin B-12) 500 mcg PO DAILY empagliflozin (Jardiance) 10 mg PO DAILY ferrous sulfate 325 mg PO DAILY@1600 dulzkdssalj-beobizvmv-dxwvofvs 200-62.5-25 mcg (Trelegy Ellipta) 1 ea inhalation DAILY furosemide 40 mg PO BID ketoconazole 2% 1 appl topical BID levothyroxine 25 mcg PO DAILY@0600 semaglutide (Ozempic) 0.5 mg subcut QWEEK sertraline 200 mg PO DAILY warfarin 2.5 mg See Protocol PO QWEEK zolpidem 5 mg PO BEDTIME PRN Do you need a note to return to daycare/school/sports/work: No HPI HPI Obstructive sleep apnea: Details: 68 years old female is here for follow-up for COPD and obstructive sleep apnea/nocturnal hypoxemia. She is doing very well and, offers no specific complaints about her breathing. Uses CPAP with O2 at night and sleeps well ( 7 CM ) She is very happy with Trelegy 1 inhalation daily and hardly needs to use Ventolin during the daytime. Recent CT scan of the chest did not show any significant interstitial lung disease. So she has been started back on amiodarone. Tomorrow she is going to have cardioversion and she is looking forward to that . After that he is hoping to start on Ozempic injections weekly and lose some weight. [facility] Medical History Implantable loop recorder present Persistent atrial fibrillation PAF (paroxysmal atrial fibrillation) Increasing shortness of breath Encounter for interrogation of cardiac pacemaker Subtherapeutic international normalized ratio (INR) Heart failure Cardiac pacemaker Nocturnal hypoxemia (~08/15/23) Sinus pause History of cardioversion Interstitial lung disease COPD (chronic obstructive pulmonary disease) Pulmonary nodule Atrial flutter with rapid ventricular response COPD (chronic obstructive pulmonary disease) Exercise hypoxemia Interstitial lung disease Bronchitis due to Staphylococcus aureus History of transcatheter aortic valve replacement (TAVR) Acute diastolic CHF (congestive heart failure) Paroxysmal atrial fibrillation Abnormal EKG Hypoxia Interstitial lung disease Anemia Atrial flutter Obesity (HFpEF) heart failure with preserved ejection fraction Aortic stenosis Current use of anticoagulant therapy Surgical History Status post transcatheter aortic valve replacement Hx of mitral valve replacement (~2004) Status post placement of cardiac pacemaker H/O heart surgery History of sleeve gastrectomy (~2017) Hx of transesophageal echocardiography (SHELIA) for monitoring (~2015) Hx of section Family History Father No problems noted. Mother CVD (cardiovascular disease) Social History Household Members: Family Housing: House Do you presently have visiting nurse or other home services: Yes Alcohol intake: never Patient Tobacco Use Status: Former Tobacco user Tobacco use type: Cigarette Years Smoked: 29 e-Cigarette/Vaping Use: Never Used Second Hand Smoke Exposure: No Advance Directives Date on File: 08/28/22 service: No Current occupational status: disabled Review of Systems Const All systems reviewed & are unremarkable except as noted in HPI and below Reports fatigue and Reports lethargy Eyes Reports no additional complaints ENT Reports no additional complaints Card Denies chest pain, Denies irregular heart rhythm, Denies leg edema and Reports dyspnea on exertion Resp Reports as per HPI and Reports dyspnea on exertion GI Reports no additional complaints Reports no additional complaints Musc Reports no additional complaints Skin/Breast Reports system reviewed and no additional complaints, except as documented Neuro Reports no additional complaints Psych Reports depression (Controlled with sertraline) Endo Reports fatigue and Reports other (Being treated for hypothyroidism) Physical Exam Vital Signs: Last Vital Signs Pulse 93 07/14/24 10:44 Resp 16 07/14/24 10:44 BP 130/72 07/14/24 10:44 Pulse Ox 92 07/14/24 10:44 Oxygen Delivery Method Room Air 07/14/24 10:44 BMI result Body Mass Index 32.6 Const General: comfortable (But short of breath), no acute distress, alert and awake Orientation/consciousness: patient oriented x3 HEENT Head: Yes normal to inspection General nose exam: No nasal polyps present and No nasal discharge present Face and sinus: Yes sinuses nontender Mouth: oropharynx normal Throat: Yes posterior oropharynx normal Eyes General: appearance normal, both eyes and all related structures Neck Neck: Yes normal visual inspection, Yes no lymphadenopathy, Yes trachea midline and Yes no JVD Thyroid: Thyroid normal Chest Chest palpation & inspection: abnormal inspection of the chest (Midline scar from previous cardiac surgery), normal palpation of entire chest wall and no tenderness Resp Other: Breath sounds are distant but equal on both sides. Prolonged expiratory phase, No wheezes rhonchi or crepitations are heard today. Cardio Palpation: normal PMI Rate: regular rate Rhythm: regular rhythm Heart sounds: no gallops and no murmurs GI Palpation (GI): Soft to palpation, nontender, No hepatosplenomegaly present and no masses Auscultation: normal bowel sounds Back/Spine/Pelvis Thoracic/Lumbar Spine: thoracic and lumbar spine normal to inspection Skin General skin exam: no rashes or lesions noted Neuro General: patient oriented x3 and no focal motor deficits Cranial nerves: Yes CN's II-XII intact bilaterally Extrem General: Yes normal to inspection, Yes no clubbing, cyanosis or edema and Yes no calf tenderness Psych Appearance: grossly normal and well kempt Speech and movement: Normal speech and movement present Results Reviewed Results Reviewed: Compliance report for the last 30 nights is reviewed. She has used 29/30 nights. Average use it per night 6 hours 20 minutes. On some nights when she goes to the bathroom in the middle of the night she forgets to put the CPAP back on. She wakes up refreshed and denies daytime sleepiness. She does use the O2 along with the CPAP. Assessment & Plan Assessment & Plan (1) COPD (chronic obstructive pulmonary disease): Comment: This patient is being treated for chronic obstructive pulmonary disease. She has done very well with the use of Trelegy Ellipta once a day It remains quite stable and well controlled. Code(s): J44.9 - Chronic obstructive pulmonary disease, unspecified Category: Medical Plan: Continue Trelegy Ellipta 1 inhalation daily. Ventolin HFA 2 puffs Q 4-6 hours only p.r.n.. (2) Nocturnal hypoxemia: Onset Date: ~08/15/23 Comment: ON THE BASELINE STUDY PATIENT DID HAVE NOCTURNAL HYPOXEMIA. IT WAS CORRECTED WITH THE CPAP AT PRESSURE. OF 7 CM HOWEVER PATIENT IS STILL PUTTING ON THE OXYGEN AT NIGHT ALONG WITH THE CPAP, I TOLD HER NOT TO EXCEED 2 L/MINUTE. Code(s): G47.34 - Idiopathic sleep related nonobstructive alveolar hypoventilation Category: Medical Plan: It is okay to use oxygen 1-2 L per minute along with the CPAP (3) Obstructive sleep apnea: Comment: Patient is a confirmed case of obstructive sleep apnea, She is very regular user of CPAP and is benefiting. ( pressure 7 cm ) Compliance is excellent, and she is definitely benefiting from the use of CPAP., Code(s): G47.33 - Obstructive sleep apnea (adult) (pediatric) Category: Medical Plan: Commended for good compliance and advised to continue using CPAP every night plus O2 (4) Exercise hypoxemia: Comment: This patient has documented hypoxemia on exertion. As she feels better she is not using the oxygen all the times when She walks or goes outdoors Code(s): R09.02 - Hypoxemia Category: Medical Plan: Use O2 2 L/minute whenever there is a feeling of increased shortness of breath during the daytime Coding Level of Care Code Est Pt Level 3 (61037) Diagnoses COPD (chronic obstructive pulmonary disease) J44.9 Nocturnal hypoxemia G47.34 Obstructive sleep apnea G47.33 Exercise hypoxemia R09.02
[2024-07-14 10:44] VITALS: BP 130/72; PULSE 93; RESP 16; O2SAT 92; BMI 32.6
== END 2024-07-14 10:56 | disposition home or self-care (01) ==
PROVIDERS: PCP Internal Medicine; Visit Provider Internal Medicine
DX: J44.9 Chronic obstructive pulmonary disease, unspecified (principal); G47.34 Idiopathic sleep related nonobstructive alveolar hypoventilation; G47.33 Obstructive sleep apnea (adult) (pediatric); R09.02 Hypoxemia
CPT/HCPCS: 99213

== ENCOUNTER → 2024-07-14 10:41 | Outpatient (BNVA) | payer MEDICARE, MEDICAID, SELFPAY | PROVIDERS: PCP Internal Medicine; Visit Provider Internal Medicine | DX: G47.33 Obstructive sleep apnea (adult) (pediatric) (principal); J44.9 Chronic obstructive pulmonary disease, unspecified; G47.34 Idiopathic sleep related nonobstructive alveolar hypoventilation; R09.02 Hypoxemia; Z99.89 Dependence on other enabling machines and devices; Z87.891 Personal history of nicotine dependence | CPT/HCPCS: 99212 ==

== ENCOUNTER → 2024-07-15 11:21 | Day surgery (SDC) | payer MEDICARE, MEDICAID, SELFPAY ==
--- NOTE | 2024-07-13 14:42 | HO.ANESPROP2 ---
HPI - Anesthesia Eval Consult details Narrative: 68yo M for Cardioversion Coumadine for afib Pacer in situ s/p TAVR Anesthesia Pre-Procedure Meds Is the patient on any of the following meds?: GLP1/DPP4 and SGLT2 Inhib PMFSH Active Problems Active Problems: All Active Problems Persistent atrial fibrillation (Acute) Hx of mitral valve replacement (Acute ~2004) Status post transcatheter aortic valve replacement (Acute) PAF (paroxysmal atrial fibrillation) (Acute) Increasing shortness of breath (Acute) Visit for wound check (Acute) Status post placement of cardiac pacemaker (Acute) D-dimer, elevated (Acute) Abnormal ECG (Acute) Hypothyroidism (Acute) Mood disorder (Acute) Hypersomnia (Acute) Obstructive sleep apnea (Acute) Bilateral pneumonia (Acute) COPD exacerbation (Acute) Nocturnal hypoxemia (Acute ~08/15/23) Interstitial lung disease (Acute) COPD (chronic obstructive pulmonary disease) (Acute) Pulmonary nodule (Acute) (HFpEF) heart failure with preserved ejection fraction (Acute) Exercise hypoxemia (Acute) Bronchitis due to Staphylococcus aureus (Acute) Past Medical History Medical History Implantable loop recorder present Persistent atrial fibrillation PAF (paroxysmal atrial fibrillation) Increasing shortness of breath Encounter for interrogation of cardiac pacemaker Subtherapeutic international normalized ratio (INR) Heart failure Cardiac pacemaker Nocturnal hypoxemia (~08/15/23) Sinus pause History of cardioversion Interstitial lung disease COPD (chronic obstructive pulmonary disease) Pulmonary nodule Atrial flutter with rapid ventricular response COPD (chronic obstructive pulmonary disease) Exercise hypoxemia Interstitial lung disease Bronchitis due to Staphylococcus aureus History of transcatheter aortic valve replacement (TAVR) Acute diastolic CHF (congestive heart failure) Paroxysmal atrial fibrillation Abnormal EKG Hypoxia Interstitial lung disease Anemia Atrial flutter Obesity (HFpEF) heart failure with preserved ejection fraction Aortic stenosis Current use of anticoagulant therapy Family History Family History Father No problems noted. Mother CVD (cardiovascular disease) Family history of problems with anesthesia: No Surgical History Surgical History Status post transcatheter aortic valve replacement Hx of mitral valve replacement (~2004) Status post placement of cardiac pacemaker H/O heart surgery History of sleeve gastrectomy (~2018) Hx of transesophageal echocardiography (SHELIA) for monitoring (~2016) Hx of section History of Problems with Anesthesia: No Social History Social History Household Members: Family Housing: House Do you presently have visiting nurse or other home services: Yes Alcohol intake: never Patient Tobacco Use Status: Former Tobacco user Tobacco use type: Cigarette Years Smoked: 29 e-Cigarette/Vaping Use: Never Used Second Hand Smoke Exposure: No Advance Directives Date on File: 08/28/22 service: No Current occupational status: disabled Meds Allergies Allergy/AdvReac Type Severity Reaction Status Date / Time No Known Allergies Allergy Verified 07/13/24 08:16 Home Medications ?Medication ?Instructions ?Recorded ?Confirmed ?Last Taken ?Type levothyroxine 25 mcg tablet 25 mcg PO DAILY@0600 09/01/20 07/06/24 06/20/23 History atorvastatin 20 mg tablet 20 mg PO DAILY 04/26/21 07/06/24 06/20/23 History sertraline 100 mg tablet 200 mg PO DAILY 04/26/21 07/06/24 06/20/23 History zolpidem 5 mg tablet 5 mg PO BEDTIME PRN Insomnia 02/18/23 07/06/24 03/25/23 History fluticasone fur. 200 mcg-umeclid 1 ea inhalation DAILY 03/26/23 07/06/24 06/19/23 History 62.5 mcg-vilant 25 mcg inhalat.powder (Trelegy Ellipta) albuterol sulfate 90 mcg/actuation 2 puff inhalation Q4-6H PRN 04/08/23 07/06/24 06/06/23 History aerosol inhaler (Ventolin HFA) breathing ferrous sulfate 325 mg (65 mg 325 mg PO DAILY@1600 04/22/23 07/06/24 06/19/23 History iron) tablet warfarin 2.5 mg tablet 2.5 mg PO QWEEK 01/03/24 07/13/24 Unknown History ketoconazole 2 % topical cream 1 appl topical BID 05/15/24 07/06/24 Unknown History amoxicillin 500 mg capsule 1,000 mg PO BID 07/06/24 07/06/24 Unknown History semaglutide 0.25 mg or 0.5 mg (2 mg subcut 07/06/24 07/06/24 Unknown History mg/3 mL) subcutaneous pen injector (Ozempic) Exam Pertinent Lab Results Pertinent Lab Results: Laboratory Tests 05/20/24 05/26/24 08:52 09:33 WBC 6.1 Hgb 14.3 D Hct 44.4 D Plt Count 173 D Sodium 140 Potassium 4.1 Chloride 106 Carbon Dioxide 26 BUN 13 Creatinine 0.76 Narrative Narrative: ECHO 04/2024 Conclusions: - 1. Normal LV ejection fraction 65-70% with mild LVH with restrictive filling pattern 2. Mildly dilated right ventricle with reduced systolic function 3. Moderately dilated left atrium and severely dilated right atrium 4. Normally function bioprosthetic aortic valve with mean gradient of 13 mm Hg next 5. Normally functioning mechanical mitral valve with mean gradient of 3 mm Hg 6. Moderately elevated right ventricular systolic pressure with mildly elevated right atrial pressures 7. No gross pericardial effusion Cardiac Device Check 04/2024 Details: Dual-chamber Medtronic pacemaker which was reprogrammed from MVP mode to DDIR due to persistent atrial fibrillation noted. Ventricular capture thresholds adequate. Atrial capture thresholds not checked. Ventricular sensing is adequate. Pacing lead impedance is stable. Battery life adequate. [id number] Cardiac Device Check, pacemaker dual lead Procedure code (CPT) selection complete EKG 04/2024 Details: EKG shows ventricular paced rhythm Assessment and Plan Assessment Anesthesia Assessment: Chart Reviewed Final Anesthetic Review Family History of Problems with Anesthesia: No History of Problems with Anesthesia: No
[2024-07-13 14:47] VITALS: BMI 32.7
--- NOTE | 2024-07-15 11:47 | ECG_ITS ---
Test Reason : Pre Op Blood Pressure : / mmHG Vent. Rate : 070 BPM Atrial Rate : 070 BPM P-R Int : 176 ms QRS Dur : 102 ms QT Int : 422 ms P-R-T Axes : 052 044 000 degrees QTc Int : 455 ms Atrial-paced rhythm Abnormal ECG When compared with ECG of 20-JUN-2023 16:57, Nonspecific T wave abnormality is no longer Present Referred By: Luis Antonio Nelson Electronically Signed By:MEL JERONIMO
--- NOTE | 2024-07-15 12:01 | PC.NURSE ---
Per Dr. Leslie julian. EKG ordered/completed. Member discharged home.
== END ==
LOC: HO.SSS 11:22
PROVIDERS: PCP Internal Medicine; Visit Provider Internal Medicine Cardiovascular Disease
DX: I48.0 Paroxysmal atrial fibrillation (principal); Z53.8 Procedure and treatment not carried out for other reasons
CPT/HCPCS: 93005

== ENCOUNTER 2024-07-17 08:01 | Outpatient (AMB) | payer MEDICARE, MEDICAID, SELFPAY ==
[2024-07-17 08:32] LABS: Prothrombin Time Whole Bld POC 55.5 sec (11.1-13.5); ~PT, ~INR - Anti Coag Clinic 4.6 (0.9-1.1)
--- NOTE | 2024-07-17 08:42 | MHC.OFFVISCO ---
Intake Intake Visit Reasons: Anticoagulation Allergies No Known Allergies Allergy (Verified 07/17/24 08:20) Medication List - Last Reconciled 07/17/24 by My Foley RN albuterol sulfate 90 mcg/actuation (Ventolin HFA) 2 puffs inhalation Q4-6H PRN amiodarone 200 mg PO DAILY 90 days amoxicillin 1,000 mg PO BID atorvastatin 20 mg PO DAILY cyanocobalamin (vitamin B-12) (Vitamin B-12) 500 mcg PO DAILY empagliflozin (Jardiance) 10 mg PO DAILY ferrous sulfate 325 mg PO DAILY@1600 lzmwclehjsu-fsyvlotsu-twyeuofs 200-62.5-25 mcg (Trelegy Ellipta) 1 ea inhalation DAILY furosemide 40 mg PO BID ketoconazole 2% 1 appl topical BID levothyroxine 25 mcg PO DAILY@0600 semaglutide (Ozempic) 0.5 mg subcut QWEEK sertraline 200 mg PO DAILY warfarin 2.5 mg See Protocol PO QWEEK zolpidem 5 mg PO BEDTIME PRN Nursing Note INR 4.6?out of therapeutic range of 2.5-3.5 Medications and supplements reviewed Patient status: feels well Medications or supplements: started Ozempic and Citalopram this week, both of which can raise the INR But Amiodarone dose significantly decreased from 800mg daily to 200mg daily which can lower the INR Diet: no changes Denies any signs and symptoms of bleeding or clotting or unusual bruising Bleeding, bruising, clotting discussed Nutritional guidance given: to have a serving of greens today Dose: hold today's dose of 7.5mg and decrease tomorrow's dose to 5mg(7.5mg) then resume usual dose of 7.5mg daily F/U INR Date : 07/20/24?? Patient verbalizing understanding of instructions given. 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
== END 2024-07-17 08:46 | disposition home or self-care (01) ==
LOC: HO.ACS 08:01
PROVIDERS: PCP Internal Medicine; Visit Provider Internal Medicine
DX: Z79.01 Long term (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 (principal)

== ENCOUNTER 2024-07-20 10:37 | Outpatient (AMB) | payer MEDICARE, MEDICAID, SELFPAY ==
[2024-07-20 11:11] LABS: Prothrombin Time Whole Bld POC 39.1 sec (11.1-13.5); ~PT, ~INR - Anti Coag Clinic 3.3 (0.9-1.1)
--- NOTE | 2024-07-20 11:23 | MHC.OFFVISCO ---
Intake Intake Visit Reasons: Anticoagulation Allergies No Known Allergies Allergy (Verified 07/20/24 10:57) Medication List - Last Reconciled 07/20/24 by My Foley, RN albuterol sulfate 90 mcg/actuation (Ventolin HFA) 2 puffs inhalation Q4-6H PRN amiodarone 200 mg PO DAILY 90 days amoxicillin 1,000 mg PO BID atorvastatin 20 mg PO DAILY [citalopram PO] cyanocobalamin (vitamin B-12) (Vitamin B-12) 500 mcg PO DAILY empagliflozin (Jardiance) 10 mg PO DAILY ferrous sulfate 325 mg PO DAILY@1600 remwlnwixrb-gfmswxtny-lyatbsok 200-62.5-25 mcg (Trelegy Ellipta) 1 ea inhalation DAILY furosemide 40 mg PO BID ketoconazole 2% 1 appl topical BID levothyroxine 25 mcg PO DAILY@0600 semaglutide (Ozempic) 0.5 mg subcut QWEEK warfarin 2.5 mg See Protocol PO QWEEK zolpidem 5 mg PO BEDTIME PRN Nursing Note INR: 3.3 in therapeutic range of 2.5-3.5 Pt wearing portable O2 via NC at 3L. C/o SOB and palpitations. Medications and supplements reviewed Amiodarone dose recently decreased from 400mg bid to 200mg daily Citalopram recently started on 07/15/24 per pt. This medicine can prolong the QT interval. Suggested pt go to the ER but she stated she called her cardiologists office this morning. Dr Nelson is cadiologist. Shew is going to his office here at this hospital when she leaves [facility]. No changes in health, diet, medications, or supplements, Denies any signs and symptoms of bleeding or bruising or clotting. Bleeding, bruising, clotting discussed Nutritional guidance given Dose: cont same dose of 7.5mg daily. F/U INR: 1 week Patient verbalizes understanding of instructions given Anti-Coag Initial Assessment Social Hx Patient Tobacco Use Status: Former Tobacco user Tobacco use type: Cigarette alcohol intake: never Alcohol intake frequency: holidays/special occasions only Coding Level of Care Code Est Patient Level 1 Diagnoses Current use of anticoagulant therapy Z79.01 Assessment & Plan Assessment & Plan (1) Current use of anticoagulant therapy: Code(s): Z79.01 - [facility] (current) use of anticoagulants
== END 2024-07-20 11:31 | disposition home or self-care (01) ==
LOC: HO.ACS 10:37
PROVIDERS: PCP Internal Medicine; Visit Provider Internal Medicine
DX: Z79.01 Long term (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 (principal)

== ENCOUNTER 2024-07-20 11:45 | Inpatient (IN) | payer MEDICARE, MEDICAID, SELFPAY ==
--- NOTE | ~2024-07-20 | XR_ITS ---
EXAMINATION: XR CHEST CLINICAL INFORMATION: Shortness of breath COMPARISON: Chest x-ray June 20, 2023. CT chest June 05, 2024 TECHNIQUE: Frontal portable view of the chest was obtained. 12:36 PM FINDINGS: Status post median sternotomy. Pacemaker leads in right atrium and right ventricle. Chronic increased lung markings with peribronchial cuffing. Hazy patchy airspace opacities at the mid and lower lungs increased since prior chest x-ray June 20, [address] chest June 05, 2024. No pleural effusion. XR/XR chest 1V IMPRESSION: 1. Chronic increased lung markings with peribronchial cuffing. 2. Hazy patchy airspace opacities at the mid and lower lungs increased since prior chest x-ray June 20, [address] chest June 05, 2024. This is likely cardiogenic in etiology, developing pulmonary edema, versus inflammatory or infectious etiologies Electronically signed by: Regulo Lancaster MD 07/20/2024 03:04 PM EDT
--- NOTE | 2024-07-20 11:47 | ECG_ITS ---
Test Reason : afib Blood Pressure : / mmHG Vent. Rate : 105 BPM Atrial Rate : 000 BPM P-R Int : 000 ms QRS Dur : 106 ms QT Int : 370 ms P-R-T Axes : 000 055 -53 degrees QTc Int : 489 ms Atrial fibrillation with rapid ventricular response Minimal voltage criteria for LVH, may be normal variant ( Bebo product ) ST & T wave abnormality, consider inferior ischemia Abnormal ECG When compared with ECG of 15-JUL-2024 11:57, Atrial fibrillation has replaced Electronic atrial pacemaker Vent. rate has increased BY 35 BPM Referred By: Generic ED Physician Electronically Signed By:MEL JERONIMO
[2024-07-20 12:12] VITALS: BP 129/84; PULSE 130; RESP 15; TEMP 36.8; O2SAT 95; BMI 32.7
[2024-07-20 12:18] VITALS: BP 129/84; PULSE 130; RESP 15; TEMP 36.8; O2SAT 95
--- NOTE | 2024-07-20 12:19 | PC.NURSE ---
Pt. on electronic device monitor at this time.
[2024-07-20 12:35] LABS: MANUAL DIFF FLAG NO
[2024-07-20 12:37] LABS: Basophils Percent Auto 0.4 % (0-2); Eosinophils Absolute Auto 0.1 X10*3/uL (0.0-0.4); Eosinophils Percent Auto 0.9 % (0-4); Hematocrit 48.5 % (37.0-47.0); Imm Gran Abs Auto 0.04 X10*3/uL (0.00-0.03); Imm Gran Pct Auto 0.4 % (0.0-0.4); Lymphocytes Absolute Auto 0.6 X10*3/uL (1.2-4.9); Lymphocytes Percent Auto 5.8 % (20-40); Mean Corpuscular Hemoglobin 27.9 pg (27.0-33.0); Mean Corpuscular Volume 84.5 fL (80.0-98.0); Mean Platelet Volume 11.9 fL (9.4-12.3); Monocytes Absolute Auto 0.7 X10*3/uL (0.1-1.2); Neutrophils Percent Auto 85.5 % (45-73); Platelet Count 188 X10*3/uL (160-400); Red Blood Count 5.74 X10*6/uL (4.20-5.50); Red Cell Distribution Width 15.2 % (11.0-16.0); White Blood Count 10.6 X10*3/uL (4.8-10.8)
[2024-07-20 12:44] LABS: Prothrombin Time 35.4 SEC (10.9-12.4)
--- NOTE | 2024-07-20 12:45 | ED_ITS ---
HPI - General Adult General Chief complaint: Arrhythmia/Palpitations Stated complaint: afib Time Seen by Provider: 07/20/24 12:45 Source: patient and old records reviewed Mode of arrival: ambulatory Limitations: no limitations History of Present Illness ED Provider: DR. Avalos HPI narrative: 68-year-old female history of HFpEF, AFib, TAVR, mitral valve replacement with metallic valve, patient has pacemaker recently placed, was scheduled for having cardioversion last week but patient converted without intervention returned today for having palpitation of 160 with shortness of breath, patient was brought down from Dr. Nelson office to the ER for further evaluation, patient is taking Coumadin for anticoagulation INR today is 3.3, patient also started on Ozempic last week for weight loss patient was able to lose 7 lb in 1 week, patient takes amiodarone was reduced from 400 twice a day to 200 mg twice a day by Dr. Nelson recently. Shortness of breath is mostly exertional, patient declined any lower extremity swelling or exceptional weight gaining. Related Data Home Medications ?Medication ?Instructions ?Recorded ?Confirmed levothyroxine 25 mcg tablet 25 mcg PO DAILY@0600 09/01/20 07/17/24 atorvastatin 20 mg tablet 20 mg PO DAILY 04/26/21 07/17/24 zolpidem 5 mg tablet 5 mg PO BEDTIME PRN Insomnia 02/18/23 07/17/24 fluticasone fur. 200 mcg-umeclid 1 ea inhalation DAILY 03/26/23 07/17/24 62.5 mcg-vilant 25 mcg inhalat.powder (Trelegy Ellipta) albuterol sulfate 90 mcg/actuation 2 puff inhalation Q4-6H PRN 04/08/23 07/17/24 aerosol inhaler (Ventolin HFA) breathing ferrous sulfate 325 mg (65 mg 325 mg PO DAILY@1600 04/22/23 07/17/24 iron) tablet warfarin 2.5 mg tablet 2.5 mg PO QWEEK 01/03/24 07/20/24 ketoconazole 2 % topical cream 1 appl topical BID 05/15/24 07/17/24 amoxicillin 500 mg capsule 1,000 mg PO BID 07/06/24 07/17/24 semaglutide 0.25 mg or 0.5 mg (2 0.5 mg subcut QWEEK 07/06/24 07/17/24 mg/3 mL) subcutaneous pen injector (Ozempic) citalopram PO 07/20/24 escitalopram oxalate 5 mg tablet 5 mg PO DAILY 07/20/24 sertraline 100 mg tablet 200 mg PO DAILY 07/20/24 sotalol 120 mg tablet 120 mg PO BID 07/20/24 Previous Rx's ?Medication ?Instructions ?Recorded empagliflozin 10 mg tablet 10 mg PO DAILY #30 tabs 01/02/24 (Jardiance) cyanocobalamin (vitamin B-12) 500 500 mcg PO DAILY #90 tabs 05/20/24 mcg tablet (Vitamin B-12) furosemide 40 mg tablet 40 mg PO BID #60 tabs 05/26/24 amiodarone 200 mg tablet 200 mg PO DAILY 90 days #90 tabs 07/16/24 Allergies Allergy/AdvReac Type Severity Reaction Status Date / Time No Known Allergies Allergy Verified 07/20/24 12:15 Review of Systems 2 Review of Systems: All other systems are reviewed and are negative Constitutional: Reports as per HPI and Reports no additional constitutional complaints Eyes: Reports as per HPI and Reports no additional eye complaints Reports system reviewed and no additional complaints, except as documented Cardiovascular: Reports as per HPI and Reports no additional cardiovascular complaints Respiratory: Reports as per HPI and Reports no additional respiratory complaints Gastrointestinal: Reports as per HPI and Reports no additional gastrointestinal complaints Genitourinary: Reports no additional female genitourinary complaints Musculoskeletal: Reports no additional musculoskeletal complaints Skin/Breast: Reports system reviewed and no additional complaints, except as docu Psychiatric: Reports no additional psychiatric complaints Endocrine: Reports no additional endocrine complaints Hematologic/Lymphatic: Reports no additional hematologic/lymphatic complaints Allergic/Immunologic: Reports no additional allergic/immunologic complaints Reports system reviewed and no additional complaints, except as documented and Reports Abnormal speech present [facility] Past Medical History Medical History Implantable loop recorder present Persistent atrial fibrillation PAF (paroxysmal atrial fibrillation) Increasing shortness of breath Encounter for interrogation of cardiac pacemaker Subtherapeutic international normalized ratio (INR) Heart failure Cardiac pacemaker Nocturnal hypoxemia (~08/15/23) Sinus pause History of cardioversion Interstitial lung disease COPD (chronic obstructive pulmonary disease) Pulmonary nodule Atrial flutter with rapid ventricular response COPD (chronic obstructive pulmonary disease) Exercise hypoxemia Interstitial lung disease Bronchitis due to Staphylococcus aureus History of transcatheter aortic valve replacement (TAVR) Acute diastolic CHF (congestive heart failure) Paroxysmal atrial fibrillation Abnormal EKG Hypoxia Interstitial lung disease Anemia Atrial flutter Obesity (HFpEF) heart failure with preserved ejection fraction Aortic stenosis Current use of anticoagulant therapy Surgical History Status post transcatheter aortic valve replacement Hx of mitral valve replacement (~2004) Status post placement of cardiac pacemaker H/O heart surgery History of sleeve gastrectomy (~2017) Hx of transesophageal echocardiography (SHELIA) for monitoring (~2015) Hx of section Family History Family History Father No problems noted. Mother CVD (cardiovascular disease) Social History Social History Household Members: Family Housing: House Do you presently have visiting nurse or other home services: Yes Alcohol intake: never Patient Tobacco Use Status: Former Tobacco user Tobacco use type: Cigarette Years Smoked: 29 Smoked in Last 30 Days: No e-Cigarette/Vaping Use: Never Used Second Hand Smoke Exposure: No Use of substances other than those prescribed or required for medical reasons: No Advance Directives: Yes Advance Directives on File: Yes Advance Directives Date on File: 12/18/22 Do you have a plan to hurt others: No Plan service: No Current occupational status: disabled Physical Exam ED Vital Signs: Vital Signs - 24 hr 07/20/24 12:12 07/20/24 12:18 07/20/24 15:30 Temperature 98.3 F 98.3 F Pulse Rate 130 H 130 H 78 Respiratory Rate 15 15 16 Blood Pressure 129/84 129/84 101/73 Pulse Oximetry 95 95 93 Oxygen Delivery Method Nasal Cannula Nasal Cannula Nasal Cannula Oxygen Flow Rate 2 07/20/24 16:17 Temperature Pulse Rate Respiratory Rate Blood Pressure 112/64 Pulse Oximetry Oxygen Delivery Method Oxygen Flow Rate BMI result Body Mass Index 32.7 Vital signs have been reviewed and appear to be correct. Blood pressure elevated. Heart rate normal. Respiratory rate normal. Temperature normal. Oxygen saturation normal. Appearance: Alert. Oriented X3. No acute distress. Head: Normal external exam. Normocephalic. Atraumatic. No Ramachandran signs noted. No raccoon eyes noted Eyes: PERRLA. EOMI. Conjunctiva and sclera normal. Eyelids normal. ENT: TM's Normal. Pharynx normal. Uvula midline. Moist mucous membranes. No trismus noted. No drooling noted. No muffled voice noted. Neck: Normal inspection. Neck supple. FROM. No adenopathy. Thyroid Normal. No meningeal signs. No neck mass noted. CVS: Normal heart rate and rhythm. Heart sound normal. No murmurs noted. Pulses normal throughout. Respiratory: No respiratory distress. Painless inspiration. Breath sounds normal. No wheezes/rales/rhonchi noted. Chest nontender. No accessory muscle usage noted or decreased air movement noted. Abdomen: Soft and nontender. Bowel sounds normal in all 4 quadrants. No distention noted. No organomegaly noted. No visible injury noted. Back: No CVA tenderness. Full range of motion noted. Skin: Skin warm and dry. Normal skin color. Normal skin turgor. No rashes/lesions/lacerations noted. Extremities: No lower extremity edema. Extremities exhibit normal range of motion. Extremities nontender. Neuro: Oriented X 3. Cranial nerve exam: II-XII are grossly intact No motor deficit. No sensory deficit. Reflexes normal. Course Reevaluation(s) Reevaluation #1: chronic atrial fibrillation, mild CHF, hypokalemia. 1. Potassium replacement. 2. Gentle diuresis. 3. Patient is fully anticoagulated for atrial fibrillation and mitral valve replacement. 4. The case was discussed with Dr. Perry who agreed on the above plan. Time: 15:44 Reevaluation #2: patient was trying to transport herself from the bed to the commode lost balance and fell, had to urinate on the floor, no LOC, no head injury, no headache, no obvious other injuries. No further x-ray or CT is required at this moment. Time: 17:02 Medications Administered Discontinued Medications Generic Name Dose Route Start Last Admin Trade Name Freq PRN Reason Stop Dose Admin Furosemide 40 mg 07/20/24 15:33 07/20/24 16:17 Furosemide 40 Mg/4 Ml Vial IVPUSH 07/20/24 15:34 40 mg ONCE ONE Administration Protocol Potassium Chloride 10 meq in 100 mls @ 100 mls/hr 07/20/24 14:46 07/20/24 15:26 Potassium Chloride/H20 IV 07/20/24 15:45 100 mls/hr ONCE ONE Administration Potassium Chloride 40 meq 07/20/24 14:46 07/20/24 15:28 Potassium Chloride Packet 20 Meq Packet PO 07/20/24 14:47 40 meq ONCE ONE Administration Medical Decision Making Differential Diagnosis Differential Diagnoses: The differential diagnosis associated with the presentation includes ( AFib, CHF, pneumonia, pneumothorax, pleural effusion, electrolyte derangement, severe anemia, therapeutic anticoagulation.) Admission/Observation Consideration of admission/observation: Escalation of care including admission/observation considered Consult Healthcare Provider Management of the patient was discussed with: Hospitalist ( Dr. Zaragoza) and Jewelry Sales Coordinator ( Dr. Perry) Lab Data MDM Lab Attestation statement: I reviewed the patient's lab results. 07/20/24 12:28 07/20/24 14:15 Labs: Lab Results 07/20/24 07/20/24 Range/Units 12:28 14:15 WBC 10.6 (4.8-10.8) X10*3/uL RBC 5.74 H (4.20-5.50) X10*6/uL Hgb 16.0 (12.0-16.0) g/dl Hct 48.5 H (37.0-47.0) % MCV 84.5 (80.0-98.0) fL MCH 27.9 (27.0-33.0) pg MCHC 33.0 (31.0-35.0) g/dl RDW 15.2 (11.0-16.0) % Plt Count 188 (160-400) X10*3/uL MPV 11.9 (9.4-12.3) fL Immature Gran % (Auto) 0.4 (0.0-0.4) % Neut % (Auto) 85.5 H (45-73) % Lymph % (Auto) 5.8 L (20-40) % Campbell % (Auto) 7.0 (2-11) % Eos % (Auto) 0.9 (0-4) % Baso % (Auto) 0.4 (0-2) % Lymph # (Auto) 0.6 L (1.2-4.9) X10*3/uL Campbell # (Auto) 0.7 (0.1-1.2) X10*3/uL Eos # (Auto) 0.1 (0.0-0.4) X10*3/uL Baso # (Auto) 0.0 (0.0-0.2) X10*3/uL Abs Immat Gran (auto) 0.04 H (0.00-0.03) X10*3/uL Absolute Neuts (auto) 9.0 H (2.0-8.3) x10*3/uL Absolute Nucleated RBC 0.000 (0.0-0.012) X10*3/uL Nucleated RBC % (auto) 0.0 (0.0-0.2) /100WBC PT 35.4 H (10.9-12.4) SEC INR 3.0 H (0.9-1.1) APTT 43.8 H (26.0-36.8) SEC Sodium 139 (135-145) mmol/L Potassium 2.7 L* D (3.3-5.1) mmol/L Chloride 100 (96-108) mmol/L Carbon Dioxide 27 (22-29) mmol/L Anion Gap 15 (12-20) BUN 24 H (9-16) mg/dL Creatinine 0.88 (0.5-1.4) mg/dL Estim Creat Clear Calc 61.1 Estimated GFR > 60 Random Glucose 94 (60-115) mg/dL Calcium 9.6 (8.4-10.2) mg/dL Magnesium 2.2 (1.6-2.6) mg/dL Total Bilirubin 1.0 (0.0-1.0) mg/dL AST 22 (5-31) U/L ALT 13 (0-31) U/L Alkaline Phosphatase 120 H (39-117) U/L Troponin I High Sens 13.7 (<3.5-17.0) ng/L B-Natriuretic Peptide 143 H (<100) pg/mL Total Protein 8.1 H (6.5-8.0) g/dL Albumin 4.0 (3.5-5.0) g/dL TSH 4.84 H (0.32-4.0) uIU/mL Free T4 1.19 (0.71-1.85) ng/dL Influenza Type A (PCR) NEGATIVE (Negative) Influenza Type B (PCR) NEGATIVE (Negative) RSV RNA Qual (PCR) NEGATIVE (Negative) SARS-CoV-2 RNA (RT-PCR) NEGATIVE (Negative) Independent Interpretation I performed an independent interpretation of an: EKG ( Atrial fibrillation with RVR for 105, LVH, no significant change from prior EKG.) and Plain X-Ray ( chest:. Chronic increased lung markings with peribronchial cuffing. 2. Hazy patchy airspace opacities at the mid and lower lungs increased since prior chest x-ray June 20, [address] chest June 05, 2024. This is likely cardiogenic in etiology, developing pulmonary edema, versus inflammator) Radiology Impression Discussion of test interpretation with radiology: I have reviewed the radiologist's reading. Chronic Conditions Patient?s care impacted by: Other ( Atrial fibrillation, chronic anticoagulation.) Discharge Plan Discharge Clinical Impression: Persistent atrial fibrillation, Acute hypokalemia (HFpEF) heart failure with preserved ejection fraction Qualifiers: Heart failure chronicity: chronic Qualified Code(s): I50.32 - Chronic diastolic (congestive) heart failure Patient Disposition: Admitted As Inpatient
[2024-07-20 12:47] LABS: Partial Thromboplastin Time 43.8 SEC (26.0-36.8)
[2024-07-20 12:57] LABS: Troponin-I High Sensitivity 13.7 ng/L (<3.5-17.0)
[2024-07-20 13:11] LABS: TSH reflex Free T4 4.84 uIU/mL (0.32-4.0)
[2024-07-20 13:15] LABS: B Type Natriuretic Peptide 143 pg/mL (<100)
[2024-07-20 14:26] LABS: Free T4 (Free Thyroxine) 1.19 ng/dL (0.71-1.85)
--- NOTE | 2024-07-20 14:45 | ECG_ITS ---
Test Reason : PALPITATIONS Blood Pressure : / mmHG Vent. Rate : 102 BPM Atrial Rate : 000 BPM P-R Int : 000 ms QRS Dur : 108 ms QT Int : 284 ms P-R-T Axes : 000 049 232 degrees QTc Int : 370 ms Atrial fibrillation with rapid ventricular response Minimal voltage criteria for LVH, may be normal variant ( Bebo product ) Marked ST abnormality, possible inferior subendocardial injury Abnormal ECG When compared with ECG of 20-JUL-2024 11:43, QT has shortened Referred By: Shilpa Avalos Electronically Signed By:MEL JERONIMO
[2024-07-20 14:46] LABS: Alanine Aminotransferase 13 U/L (0-31); Alkaline Phosphatase 120 U/L (39-117); Anion Gap 15 (12-20); Aspartate Amino Transferase 22 U/L (5-31); Blood Urea Nitrogen 24 mg/dL (9-16); Calcium 9.6 mg/dL (8.4-10.2); Carbon Dioxide 27 mmol/L (22-29); Chloride 100 mmol/L (96-108); Creatinine Clr Calc Pharmacy 61.1; Estimated Glomerular Filt Rate > 60; Glucose Random 94 mg/dL (60-115); Magnesium 2.2 mg/dL (1.6-2.6); Potassium 2.7 mmol/L (3.3-5.1); Sodium 139 mmol/L (135-145); Total Protein 8.1 g/dL (6.5-8.0)
[2024-07-20 15:03] LABS: Influenza A PCR NEGATIVE (Negative); Influenza B PCR NEGATIVE (Negative); Resp Syncy Virus RNA Qual PCR NEGATIVE (Negative); SARS COV2 PCR INHOUSE NEGATIVE (Negative)
[2024-07-20] MEDS: Potassium Chloride/H20 10 MEQ/100 ML PIGGYBACK 100 MEQ IV (15:26)
[2024-07-20] MEDS: Potassium Chloride Packet 20 MEQ PACKET 40 MEQ PO (15:28)
[2024-07-20 15:30] VITALS: BP 101/73; PULSE 78; RESP 16; O2SAT 93
[2024-07-20 16:17] VITALS: BP 112/64
[2024-07-20] MEDS: Furosemide 40 MG/4 ML VIAL IVPUSH (16:17)
--- NOTE | 2024-07-20 16:43 | P.HPHOSP_ITS ---
History of Present Illness Date of Service: 07/20/24 Attending physician on admission: Nuvia Feliciano Chief Complaint: sob, palpitations 67-year-old female with history of atrial fibrillation/flutter anticoagulated with Coumadin, heart failure with preserved ejection fraction, aortic stenosis s/p TAVR procedure in 08/2022, s/p St. Alex valve, history of amiodarone toxicity, interstitial lung disease and COPD with chronic hypoxemic respiratory failure, pacer maker in place, and mood disorder who is obese and recently started ozempic last week presented to the ED earlier today for evaluation of sob and palpitations. She has a long history of atrial fibrillation and was recently restarted on amiodarone 400mg BID scheduled for cardioversion last saturday but ultimately converted back to NSR and amio dose was reduced to 200mg daily. Two days ago reports she began experiencing chest tightness, palpitations and KRAUS. Monitored her HR and reports fluctuations ranging 40-170. Reports 6lb weight loss since last week but attributes this to ozempic use. NO edema, chronic orthopnea. In the ED intermittently tachcyardic to 130, vitals otherwise stable. Hematology studies unremarkable. Renal function baseline. K 2.7. Trop 13.7, BNP 143. CXR shows chronic increased lung marking with peribronchial cuffind. There are also hazy patchy airspace opacities at the mid and lower lungs increased since prior cxr likely cardiogenic in etiology developing edema vs inflammatory or infectious. Int he ED, given 40mg furosemide, 40 meq KCl and IV kcl. Review of Systems 2 Review of Systems: Yes all other systems are reviewed and are negative [facility] Medical History Implantable loop recorder present Persistent atrial fibrillation PAF (paroxysmal atrial fibrillation) Increasing shortness of breath Encounter for interrogation of cardiac pacemaker Subtherapeutic international normalized ratio (INR) Heart failure Cardiac pacemaker Nocturnal hypoxemia (~08/15/23) Sinus pause History of cardioversion Interstitial lung disease COPD (chronic obstructive pulmonary disease) Pulmonary nodule Atrial flutter with rapid ventricular response COPD (chronic obstructive pulmonary disease) Exercise hypoxemia Interstitial lung disease Bronchitis due to Staphylococcus aureus History of transcatheter aortic valve replacement (TAVR) Acute diastolic CHF (congestive heart failure) Paroxysmal atrial fibrillation Abnormal EKG Hypoxia Interstitial lung disease Anemia Atrial flutter Obesity (HFpEF) heart failure with preserved ejection fraction Aortic stenosis Current use of anticoagulant therapy Family History Father No problems noted. Mother CVD (cardiovascular disease) Surgical History Status post transcatheter aortic valve replacement Hx of mitral valve replacement (~2004) Status post placement of cardiac pacemaker H/O heart surgery History of sleeve gastrectomy (~2017) Hx of transesophageal echocardiography (SHELIA) for monitoring (~2015) Hx of section Social History Household Members: Family Housing: House Do you presently have visiting nurse or other home services: Yes Alcohol intake: never Patient Tobacco Use Status: Former Tobacco user Tobacco use type: Cigarette Years Smoked: 29 Smoked in Last 30 Days: No e-Cigarette/Vaping Use: Never Used Second Hand Smoke Exposure: No Use of substances other than those prescribed or required for medical reasons: No Advance Directives: Yes Advance Directives on File: Yes Advance Directives Date on File: 12/18/22 Do you have a plan to hurt others: No Plan service: No Current occupational status: disabled Meds Allergies Allergy/AdvReac Type Severity Reaction Status Date / Time No Known Allergies Allergy Verified 07/20/24 12:15 Active Medications: Current Medications Acetaminophen (Acetaminophen 325 Mg Tablet) 650 mg PO Q6H PRN PRN Reason: Pain, Mild (Pain Scale 1-3), fever or headache Calcium Carbonate (Calcium Carbonate 750 Mg Tab.Chew) 750 mg PO Q4H PRN PRN Reason: Heartburn Magnesium Hydroxide (Milk Of Magnesia 30 Ml Oral.Susp) 30 ml PO DAILY PRN PRN Reason: Constipation Melatonin (Melatonin 3 Mg Tablet) 6 mg PO BEDTIME PRN PRN Reason: Insomnia Sodium Chloride (0.9 % Sodium Chloride Flush 3 Ml Syringe) 3 ml IVFLUSH [facility] Medications ?Medication ?Instructions ?Recorded ?Confirmed ?Last Taken ?Type levothyroxine 25 mcg tablet 25 mcg PO DAILY@0600 09/01/20 07/17/24 06/20/23 History atorvastatin 20 mg tablet 20 mg PO DAILY 04/26/21 07/17/24 06/20/23 History zolpidem 5 mg tablet 5 mg PO BEDTIME PRN Insomnia 02/18/23 07/17/24 03/25/23 History fluticasone fur. 200 mcg-umeclid 1 ea inhalation DAILY 03/26/23 07/17/24 06/19/23 History 62.5 mcg-vilant 25 mcg inhalat.powder (Trelegy Ellipta) albuterol sulfate 90 mcg/actuation 2 puff inhalation Q4-6H PRN 04/08/23 07/17/24 06/06/23 History aerosol inhaler (Ventolin HFA) breathing ferrous sulfate 325 mg (65 mg 325 mg PO DAILY@1600 04/22/23 07/17/24 06/19/23 History iron) tablet warfarin 2.5 mg tablet 2.5 mg PO QWEEK 01/03/24 07/20/24 Unknown History ketoconazole 2 % topical cream 1 appl topical BID 05/15/24 07/17/24 Unknown History amoxicillin 500 mg capsule 1,000 mg PO BID 07/06/24 07/17/24 Unknown History semaglutide 0.25 mg or 0.5 mg (2 0.5 mg subcut QWEEK 07/06/24 07/17/24 Unknown History mg/3 mL) subcutaneous pen injector (Ozempic) citalopram PO 07/20/24 Unknown History escitalopram oxalate 5 mg tablet 5 mg PO DAILY 07/20/24 Unknown History sertraline 100 mg tablet 200 mg PO DAILY 07/20/24 Unknown History sotalol 120 mg tablet 120 mg PO BID 07/20/24 Unknown History Physical Exam 2 Vital Signs and Narrative: Vital Signs: Last Vital Signs Temp 98.3 F 07/20/24 12:18 Pulse 78 07/20/24 15:30 Resp 16 07/20/24 15:30 BP 112/64 07/20/24 16:17 Pulse Ox 93 07/20/24 15:30 O2 Del Method Nasal Cannula 07/20/24 15:30 O2 Flow Rate 2 07/20/24 15:30 Oxygen Flow Rate 2 07/20/24 12:12 BMI result Body Mass Index 32.7 Constitutional - Awake and Alert, No apparent distress Eyes - PERRLA, EOMI Cardiovascular - S1S2, irregularly irregular, normal rate, No edema. +JVD Respiratory - Normal lung expansion, Normal respiratory effort, No respiratory distress, CTA bilaterally Gastrointestinal - NT / ND; +BS; No rebound or guarding Extremities - no calf tenderness bilaterally, no swelling Skin - Warm/Dry Neurological - Alert & oriented x3 Psychological - Appropriate affect Results Labs 07/20/24 12:28 07/20/24 14:15 Labs: Laboratory Results - last 24 hr 07/20/24 07/20/24 12:28 14:15 MCV 84.5 MCH 27.9 MCHC 33.0 RDW 15.2 Plt Count 188 MPV 11.9 Immature Gran % (Auto) 0.4 Neut % (Auto) 85.5 H Lymph % (Auto) 5.8 L Scott % (Auto) 7.0 Eos % (Auto) 0.9 Baso % (Auto) 0.4 Lymph # (Auto) 0.6 L Scott # (Auto) 0.7 Eos # (Auto) 0.1 Baso # (Auto) 0.0 Abs Immat Gran (auto) 0.04 H Absolute Neuts (auto) 9.0 H Absolute Nucleated RBC 0.000 Nucleated RBC % (auto) 0.0 PT 35.4 H INR 3.0 H APTT 43.8 H Anion Gap 15 Estim Creat Clear Calc 61.1 Estimated GFR > 60 Random Glucose 94 Calcium 9.6 Magnesium 2.2 Total Bilirubin 1.0 AST 22 ALT 13 Alkaline Phosphatase 120 H Troponin I High Sens 13.7 B-Natriuretic Peptide 143 H Total Protein 8.1 H Albumin 4.0 TSH 4.84 H Free T4 1.19 Influenza Type A (PCR) NEGATIVE Influenza Type B (PCR) NEGATIVE RSV RNA Qual (PCR) NEGATIVE SARS-CoV-2 RNA (RT-PCR) NEGATIVE Imaging Radiologist's Impressions: Impressions Chest X-Ray 07/20/24 12:08 IMPRESSION: 1. Chronic increased lung markings with peribronchial cuffing. 2. Hazy patchy airspace opacities at the mid and lower lungs increased since prior chest x-ray June 20, [address] chest June 05, 2024. This is likely cardiogenic in etiology, developing pulmonary edema, versus inflammatory or infectious etiologies Electronically signed by: Regulo Lancaster MD 07/20/2024 03:04 PM EDT RP Assessment and Plan (1) Acute hypokalemia: Status: Acute (2) Persistent atrial fibrillation: Status: Acute (3) CHF exacerbation: Status: Acute Plan 67-year-old female with history of atrial fibrillation/flutter anticoagulated with Coumadin, heart failure with preserved ejection fraction, aortic stenosis s/p TAVR procedure in 08/2022, s/p St. Alex valve, history of amiodarone toxicity, interstitial lung disease and COPD with chronic hypoxemic respiratory failure, pacer maker in place, and mood disorder who is obese and recently started ozempic last week admitted for rapid atrial fibrillation and chf exacerbation. #Persistent atrial fibrillation with rvr -continue coumadin, INR therapeutic at 3.0. Follow INR -rate controlled on admission, continue tele -continue amiodarone -Cardiology consult, plan for cardioversion tomorrow pending OR availability, npo after midnight -cardiac diet for now #Acute exacerbation of HFpEF -40mg IV lasix bid -continue jardiance -cardiac diet -strict I&O -daily weights -cardiology consult #Acute hypokalemia -due to lasix use -repleted in ED -follow closely, start daily replacement if indicated #Intermittent bradycardia -?need for pacer interrogation, cardiology consult #COPD with chronic hypoxemic respiratory failure -no exacebration -continue home inhalers, albuterol prn. Continue home O2 prn #HTN -add metoprolol #Mechanical Mitral valve -continue coumadin -follow INR (goal 2.5-3.5) #hypothyroidism -continue home meds #mood disorder -continue home meds DVT prophylaxis-on Coumadin Full code Patient requires inpt stay at least 2 midnights for iv diuresis to manage chf exacebration secondary to afib rvr and will require cardioversion with expert consultation Quality Stroke Does the patient have a stroke diagnosis?: No VTE Prior VTE?: No VTE Risk Level:: Medical - moderate - high VTE Device Contraindication: Treatment Not Indicated VTE Drug Contraindication: N/A - Med Ordered
--- NOTE | 2024-07-20 19:08 | PHA.MEDREC ---
Addendum entered by Shiraz Medeiros [facility] 07/20/24 19:30: MED REC CHECKED BY [facility] Original Note: Pharmacy Consult ? Medication Reconciliation Pharmacy has completed the medication reconciliation. Confirmed medications with patient. Patient states she has Amoxicillin 500mg still at home as needed for dental appointments. She also confirmed she takes together Furosemide 40mg she takes 2 tables every day, Escitalopram 5mg and Ferrous Sulfate 325mg @1600. She confirmed she is taking Ozempic once a week and she takes it Wednesdays and last took it Sunday 07/15. She stopped Sertraline 100mg Sunday 07/15 and is now just taking Escitalopram 5mg for her mood. She states she is taking Warfarin 2.5mg and is taking 7.5mg once a day in the morning around [id number]. She states she took her medication this morning around [id number].
[2024-07-20 19:52] VITALS: BP 130/70; PULSE 105; RESP 20; TEMP 35.9; O2SAT 94
[2024-07-20] MEDS: 0.9 % Sodium Chloride Flush 3 ML SYRINGE IVFLUSH (20:30)
[2024-07-20] MEDS: Metoprolol Tartrate 25 MG TABLET PO (20:30)
[2024-07-20] MEDS: Amiodarone HCL 200 MG TABLET PO (20:30)
[2024-07-20] MEDS: Escitalopram Oxalate 5 MG TABLET PO (20:30)
[2024-07-20 23:39] VITALS: BP 90/57; PULSE 77; RESP 16; TEMP 36.3; O2SAT 94
[2024-07-21] MEDS: Levothyroxine Sodium 25 MCG TABLET PO (05:08)
[2024-07-21 06:39] LABS: MANUAL DIFF FLAG NO
[2024-07-21 06:52] LABS: INTERNATIONAL NORM RATIO 2.5 (0.9-1.1); Prothrombin Time 29.7 SEC (10.9-12.4)
[2024-07-21 07:01] LABS: Basophils Percent Auto 0.6 % (0-2); Eosinophils Absolute Auto 0.1 X10*3/uL (0.0-0.4); Eosinophils Percent Auto 1.6 % (0-4); Hematocrit 47.9 % (37.0-47.0); Hemoglobin 15.4 g/dl (12.0-16.0); Imm Gran Abs Auto 0.03 X10*3/uL (0.00-0.03); Imm Gran Pct Auto 0.4 % (0.0-0.4); Lymphocytes Absolute Auto 0.5 X10*3/uL (1.2-4.9); Lymphocytes Percent Auto 7.1 % (20-40); Mean Corpuscular HGB Conc 32.2 g/dl (31.0-35.0); Mean Corpuscular Hemoglobin 27.8 pg (27.0-33.0); Mean Corpuscular Volume 86.5 fL (80.0-98.0); Mean Platelet Volume 12.6 fL (9.4-12.3); Monocytes Absolute Auto 0.5 X10*3/uL (0.1-1.2); Monocytes Percent Auto 6.4 % (2-11); Neutrophils Absolute Auto 5.9 x10*3/uL (2.0-8.3); Neutrophils Percent Auto 83.9 % (45-73); Platelet Count 171 X10*3/uL (160-400); Red Blood Count 5.54 X10*6/uL (4.20-5.50); Red Cell Distribution Width 15.6 % (11.0-16.0); White Blood Count 7.1 X10*3/uL (4.8-10.8)
[2024-07-21 07:03] LABS: Anion Gap 12 (12-20); Blood Urea Nitrogen 22 mg/dL (9-16); Calcium 9.8 mg/dL (8.4-10.2); Carbon Dioxide 29 mmol/L (22-29); Chloride 102 mmol/L (96-108); Creatinine Clr Calc Pharmacy 61.8; Estimated Glomerular Filt Rate > 60; Glucose Random 88 mg/dL (60-115); Potassium 3.1 mmol/L (3.3-5.1); Sodium 140 mmol/L (135-145)
[2024-07-21] MEDS: Fluticasone/Umeclidinium/Vilanterol 200/62.5/25 BLST.W.DEV 1 PUFF INHALE (07:57)
[2024-07-21 08:00] VITALS: BP 107/67; PULSE 72; PULSE 96; RESP 18; RESP 20; TEMP 36.3; O2SAT 94; O2SAT 96
--- NOTE | 2024-07-21 08:51 | ECG_ITS ---
Test Reason : Afib Blood Pressure : / mmHG Vent. Rate : 071 BPM Atrial Rate : 071 BPM P-R Int : 172 ms QRS Dur : 110 ms QT Int : 432 ms P-R-T Axes : 070 043 -68 degrees QTc Int : 469 ms Atrial-paced rhythm Abnormal ECG When compared with ECG of 20-JUL-2024 15:16, Atrial-paced rhythm has replaced Atrial fibrillation Referred By: Santi Perry Electronically Signed By:MEL JERONIMO
--- NOTE | 2024-07-21 08:59 | MHC.CM.PN ---
CM met with Patient at bedside and addressed IMM with her, providing Patient with the original and a copy has been placed on the chart. 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 Patient is active with [facility], that allows her Daughter to get paid for assisting her. Home self care is the goal and CM has initiated and will follow for dc planning. PCP is Dr. Regi Oneill and Patient's estranged will transport to home.
--- NOTE | 2024-07-21 09:20 | P.CONCA_ITS ---
History of Present Illness History of Present Illness Date of Service: 07/21/24 Chief complaint: rapid afib, chf exacerbation Narrative: This is a cardiology consultation regarding atrial fibrillation. She has a fairly complex medical history. History of [place] mechanical mitral valve along with tricuspid annuloplasty for rheumatic heart disease. She also has transcatheter aortic valve replacement for severe aortic stenosis. Chronic congestive heart failure, diastolic. Intermittent atrial fibrillation. In the past, she has been on amiodarone but she also had a issue with pulmonary issues but I am not certain if there was a true amiodarone connection or not. Any case, recently she is again having atrial fibrillation issues. Yesterday, she was in the clinic and EKG had shown atrial fibrillation rapid rate and she also had some heart failure symptoms which led to ER visit and then admission. However, overnight she converted back to sinus rhythm and she is currently in dual-chamber pacing. She states she feels fine and back to her usual self. She has recently been commenced on amiodarone. Otherwise, feels okay. Review of Systems 2 Review of Systems: Yes all other systems are reviewed and are negative Constitutional: Constitutional: Reports as per HPI and Reports no additional constitutional complaints Eyes: Eyes: Reports as per HPI and Denies no additional eye complaints ENT: Denies system reviewed and no additional complaints, except as documented and Reports as per HPI Cardiovascular: Cardiovascular: Reports as per HPI, Reports no additional cardiovascular complaints, Denies acrocyanosis, Denies cool extremities, Denies chest pain, Denies leg edema, Denies lightheadedness, Denies palpitations and Denies dyspnea Respiratory: Respiratory: Reports as per HPI, Denies no additional respiratory complaints and Denies dyspnea Gastrointestinal: Gastrointestinal: Reports as per HPI and Denies no additional gastrointestinal complaints Genitourinary: Genitourinary: Reports as per HPI Musculoskeletal: Musculoskeletal: Reports no additional musculoskeletal complaints and Reports as per HPI Integumentary/Breasts: Skin/Breast: Reports system reviewed and no additional complaints, except as docu Neurologic: Reports system reviewed and no additional complaints, except as documented and Reports as per HPI Psychiatric: Psychiatric: Reports no additional psychiatric complaints and Reports as per HPI Endocrine: Endocrine: Reports no additional endocrine complaints, Reports as per HPI and Denies palpitations Hematologic/Lymphatic: Hematologic/Lymphatic: Reports no additional hematologic/lymphatic complaints and Reports as per HPI Allergic/Immunologic: Allergic/Immunologic: Reports no additional allergic/immunologic complaints and Reports as per HPI [facility] Past Medical History Medical History Implantable loop recorder present Persistent atrial fibrillation PAF (paroxysmal atrial fibrillation) Increasing shortness of breath Encounter for interrogation of cardiac pacemaker Subtherapeutic international normalized ratio (INR) Heart failure Cardiac pacemaker Nocturnal hypoxemia (~08/15/23) Sinus pause History of cardioversion Interstitial lung disease COPD (chronic obstructive pulmonary disease) Pulmonary nodule Atrial flutter with rapid ventricular response COPD (chronic obstructive pulmonary disease) Exercise hypoxemia Interstitial lung disease Bronchitis due to Staphylococcus aureus History of transcatheter aortic valve replacement (TAVR) Acute diastolic CHF (congestive heart failure) Paroxysmal atrial fibrillation Abnormal EKG Hypoxia Interstitial lung disease Anemia Atrial flutter Obesity (HFpEF) heart failure with preserved ejection fraction Aortic stenosis Current use of anticoagulant therapy Family History Family History Father No problems noted. Mother CVD (cardiovascular disease) Surgical History Surgical History Status post transcatheter aortic valve replacement Hx of mitral valve replacement (~2004) Status post placement of cardiac pacemaker H/O heart surgery History of sleeve gastrectomy (~2017) Hx of transesophageal echocardiography (SHELIA) for monitoring (~2015) Hx of section Social History Social History Household Members: Children Housing: House Do you presently have visiting nurse or other home services: No Alcohol intake: never Patient Tobacco Use Status: Former Tobacco user Tobacco use type: Cigarette Years Smoked: 29 Smoked in Last 30 Days: No e-Cigarette/Vaping Use: Never Used Patient Interested in Nicotine Replacement: No Patient Given Instructions on How to Stop Smoking: No Second Hand Smoke Exposure: No Use of substances other than those prescribed or required for medical reasons: No Currently Displaying Signs/Symptoms of Drug Intoxication Withdrawal: No Any prior treatment program specific to substance use: No Have you been hit, kicked, punched, or otherwise hurt by someone within the past year? If so, by whom?: No Do you feel safe in your current relationship?: No Is there a partner from a previous relationship who is making you feel unsafe now?: No Are you made to feel afraid or neglected: No Advance Directives: Yes Advance Directives on File: Yes Advance Directives Date on File: 12/18/22 Do you have a plan to hurt others: No Plan Recently lost weight without trying: No Eating poorly because of decreased appetite: No Patient : No : No Poor oral hygiene: No service: No Current occupational status: disabled Meds Allergies Allergy/AdvReac Type Severity Reaction Status Date / Time No Known Allergies Allergy Verified 07/20/24 12:15 Active Medications: Current Medications Acetaminophen (Acetaminophen 325 Mg Tablet) 650 mg PO Q6H PRN PRN Reason: Pain, Mild (Pain Scale 1-3), fever or headache Albuterol Sulfate (Albuterol Sulfate 90 Mcg 8 Gm Inhaler) 2 puff INHALE Q4H PRN PRN Reason: breathing Amiodarone HCl (Amiodarone Hcl 200 Mg Tablet) 200 mg PO DAILY [facility] Atorvastatin Calcium (Atorvastatin Calcium 20 Mg Tablet) 20 mg PO DAILY [facility] Calcium Carbonate (Calcium Carbonate 750 Mg Tab.Chew) 750 mg PO Q4H PRN PRN Reason: Heartburn Clotrimazole (Clotrimazole 1 % Cream 15 Gm Tube) 1 appl TOPICAL BID [facility] Cyanocobalamin (Cyanocobalamin (Vitamin B-12) 500 Mcg Tablet) 500 mcg PO DAILY [facility] Empagliflozin (Empagliflozin 10 Mg Tablet) 10 mg PO DAILY [facility] Escitalopram Oxalate (Escitalopram Oxalate 5 Mg Tablet) 5 mg PO DAILY@1600 [facility] Ferrous Sulfate (Ferrous Sulfate 324 Mg Tablet.Dr) 324 mg PO DAILY@1600 [facility] Fluticasone/Umeclidinium/Vilanterol (Fluticasone/Umeclidinium/Vilanterol 200/62.5/25 Blst.W.Dev) 1 puff INHALE RDAILY [facility] Last Admin: 07/21/24 07:57 Dose: 1 puff Furosemide (Furosemide 40 Mg/4 Ml Vial) 40 mg IVPUSH BID@0900,1800 [facility]; Protocol Potassium Chloride (Potassium Chloride/H20) 10 meq in 100 mls @ 100 mls/hr IV Q1H [facility] Stop: 07/21/24 11:29 Levothyroxine Sodium (Levothyroxine Sodium 25 Mcg Tablet) 25 mcg PO DAILY@0600 [facility] Last Admin: 07/21/24 05:08 Dose: 25 mcg Magnesium Hydroxide (Milk Of Magnesia 30 Ml Oral.Susp) 30 ml PO DAILY PRN PRN Reason: Constipation Melatonin (Melatonin 3 Mg Tablet) 6 mg PO BEDTIME PRN PRN Reason: Insomnia Metoprolol Tartrate (Metoprolol Tartrate 25 Mg Tablet) 25 mg PO BID [facility]; Protocol Last Admin: 07/20/24 20:30 Dose: 25 mg Non-Formulary Medication (Semaglutide [Ozempic]) 0.5 mg SUBCUT [facility] Sodium Chloride (0.9 % Sodium Chloride Flush 3 Ml Syringe) 3 ml IVFLUSH QSHIFT [facility] Last Admin: 07/20/24 20:30 Dose: 3 ml Warfarin Sodium (Warfarin Sodium 7.5 Mg Tablet) 7.5 mg PO DAILY@1600 [facility] Home Medications ?Medication ?Instructions ?Recorded ?Confirmed ?Last Taken ?Type levothyroxine 25 mcg tablet 25 mcg PO DAILY@0600 09/01/20 07/20/24 07/20/24 07:00 History atorvastatin 20 mg tablet 20 mg PO DAILY 04/26/21 07/20/24 07/20/24 07:00 History fluticasone fur. 200 mcg-umeclid 1 ea inhalation DAILY 03/26/23 07/20/24 07/20/24 07:00 History 62.5 mcg-vilant 25 mcg inhalat.powder (Trelegy Ellipta) albuterol sulfate 90 mcg/actuation 2 puff inhalation Q4-6H PRN 04/08/23 07/20/24 07/20/24 07:00 History aerosol inhaler (Ventolin HFA) breathing ferrous sulfate 325 mg (65 mg 325 mg PO DAILY@1600 04/22/23 07/20/24 07/20/24 07:00 History iron) tablet warfarin 2.5 mg tablet 7.5 mg PO DAILY@0700 01/03/24 07/20/24 07/20/24 07:00 History ketoconazole 2 % topical cream 1 appl topical BID 05/15/24 07/20/24 07/20/24 07:00 History semaglutide 0.25 mg or 0.5 mg (2 0.5 mg subcut WE 07/06/24 07/20/24 07/15/24 History mg/3 mL) subcutaneous pen injector (Ozempic) amoxicillin 500 mg capsule 2,000 mg PO ONCE PRN Dental 07/20/24 07/20/24 Unknown History Appointment escitalopram oxalate 5 mg tablet 5 mg PO DAILY@159907/20/24 07/20/24 07/20/24 07:00 History furosemide 40 mg tablet 80 mg PO DAILY@159907/20/24 07/20/24 07/20/24 07:00 History Physical Exam 2 Vital Signs: Vital Signs: Last Vital Signs Temp 97.4 F 07/21/24 08:00 Pulse 72 07/21/24 08:00 Resp 20 07/21/24 08:00 BP 107/67 07/21/24 08:00 Pulse Ox 96 07/21/24 08:00 O2 Del Method Nasal Cannula 07/21/24 08:00 O2 Flow Rate 2 07/21/24 08:00 Oxygen Flow Rate 2 07/20/24 12:12 BMI result Body Mass Index 32.7 Const: General: comfortable and no acute distress O rientation/consciousness: patient oriented x3 HEENT: Other: Unremarkable Head: Yes normal to inspection Neck: Neck: Yes normal visual inspection Chest: Chest palpation & inspection: normal inspection of the chest Resp: Auscultation: clear to auscultation bilaterally Cardio: Other: Prosthetic heart valve sounds noted Palpation: normal PMI Heart sounds: no gallops, Murmur heart sound present systolic II/ and at the right sternal border and no rubs GI: Palpation (GI): Soft to palpation Back/Spine/Pelvis: Other: unremarkable Skin: General skin exam: no rashes or lesions noted Neuro: General: patient oriented x3 Extrem: General: Yes normal to inspection Psych: Mental Status: mental status grossly normal Objective Labs and Meds 07/21/24 06:02 07/21/24 06:02 Lab results: Laboratory Results - last 24 hr 07/20/24 07/20/24 07/21/24 12:28 14:15 06:02 WBC 10.6 7.1 RBC 5.74 H 5.54 H Hgb 16.0 15.4 Hct 48.5 H 47.9 H MCV 84.5 86.5 MCH 27.9 27.8 MCHC 33.0 32.2 RDW 15.2 15.6 Plt Count 188 171 MPV 11.9 12.6 H Immature Gran % (Auto) 0.4 0.4 Neut % (Auto) 85.5 H 83.9 H Lymph % (Auto) 5.8 L 7.1 L [place] % (Auto) 7.0 6.4 Eos % (Auto) 0.9 1.6 Baso % (Auto) 0.4 0.6 Lymph # (Auto) 0.6 L 0.5 L [place] # (Auto) 0.7 0.5 Eos # (Auto) 0.1 0.1 Baso # (Auto) 0.0 0.0 Abs Immat Gran (auto) 0.04 H 0.03 Absolute Neuts (auto) 9.0 H 5.9 Absolute Nucleated RBC 0.000 0.000 Nucleated RBC % (auto) 0.0 0.0 PT 35.4 H 29.7 H INR 3.0 H 2.5 H APTT 43.8 H Sodium 139 140 Potassium 2.7 L* D 3.1 L Chloride 100 102 Carbon Dioxide 27 29 Anion Gap 15 12 BUN 24 H 22 H Creatinine 0.88 0.87 Estim Creat Clear Calc 61.1 61.8 Estimated GFR > 60 > 60 Random Glucose 94 88 Calcium 9.6 9.8 Magnesium 2.2 Total Bilirubin 1.0 AST 22 ALT 13 Alkaline Phosphatase 120 H Troponin I High Sens 13.7 B-Natriuretic Peptide 143 H Total Protein 8.1 H Albumin 4.0 TSH 4.84 H Free T4 1.19 Influenza Type A (PCR) NEGATIVE Influenza Type B (PCR) NEGATIVE RSV RNA Qual (PCR) NEGATIVE SARS-CoV-2 RNA (RT-PCR) NEGATIVE ECG Interpretation: Initial EKG suggestive of atrial fibrillation with rapid ventricular response at 105/Min with mild inferior and anterolateral ST depression. Currently, on telemetry she is dual AV chamber paced. EKG also supports the same. Imaging Radiologist's impression: Impressions Chest X-Ray 07/20/24 12:08 IMPRESSION: 1. Chronic increased lung markings with peribronchial cuffing. 2. Hazy patchy airspace opacities at the mid and lower lungs increased since prior chest x-ray June 20, [address] chest June 05, 2024. This is likely cardiogenic in etiology, developing pulmonary edema, versus inflammatory or infectious etiologies Electronically signed by: Regulo Lancaster MD 07/20/2024 03:04 PM EDT RP Assessment and Plan (1) Atrial fibrillation with rapid ventricular response: Status: Acute (2) Acute hypokalemia: Status: Acute (3) Hx of mitral valve replacement: Status: Acute (4) Acute on chronic diastolic (congestive) heart failure: Status: Acute (5) Status post transcatheter aortic valve replacement: Status: Acute Plan Initial EKG showed atrial fibrillation with rapid ventricular response but then converted to AV dual-chamber paced rhythm. Currently on amiodarone. We can add a very small dose of beta-ashok but her blood pressure is quite low and hence may not be able tolerate. Otherwise, her potassium was only 2.7 upon arrival. That will need to be corrected. Home dose of diuretics are okay. In terms of long-term plan, will discuss with primary structural iron worker regarding atrial fibrillation ablation. Main concern is her many comorbidities including mechanical mitral valve. Also ambulated the patient in the floor and it seems that she was tolerating it okay and also telemetry unremarkable. Discussed with hospitalist. Procedures Date of Service Date of Service: 07/21/24
[2024-07-21] MEDS: Potassium Chloride/H20 10 MEQ/100 ML PIGGYBACK 100 MEQ IV (09:30)
[2024-07-21] MEDS: 0.9 % Sodium Chloride Flush 3 ML SYRINGE IVFLUSH (09:30)
[2024-07-21] MEDS: Amiodarone HCL 200 MG TABLET PO (09:50)
[2024-07-21] MEDS: Metoprolol Tartrate 25 MG TABLET PO (09:50)
[2024-07-21] MEDS: Atorvastatin Calcium 20 MG TABLET PO (09:50)
[2024-07-21] MEDS: Cyanocobalamin (Vitamin B-12) 500 MCG TABLET PO (09:50)
[2024-07-21] MEDS: Empagliflozin 10 MG TABLET PO (09:50)
[2024-07-21] MEDS: Furosemide 40 MG/4 ML VIAL IVPUSH (10:32)
[2024-07-21] MEDS: Clotrimazole 1 % Cream 15 GM TUBE 1 APPL TOPICAL (10:32)
[2024-07-21] MEDS: Potassium Chloride ER 20 MEQ TAB.ER.PRT 40 MEQ PO (10:36)
[2024-07-21 12:00] VITALS: BP 92/50; PULSE 72; RESP 20; TEMP 37.4; O2SAT 92
--- NOTE | 2024-07-21 12:59 | P.DS_ITS ---
DS: Providers Provider Date of Service: 07/21/24 Date of admission: 07/20/24 16:39 Date of discharge: 07/21/24 Primary care physician: Regi Oneill MD Consults: 07/20/24 16:37 Consult to Cardiology Routine Consulting Provider: [facility] Reason for consultation: rapid afib, chf DS: Diagnosis Discharge Diagnosis (1) Atrial fibrillation with rapid ventricular response: Status: Acute (2) Acute hypokalemia: Status: Acute (3) Hx of mitral valve replacement: Status: Acute (4) Acute on chronic diastolic (congestive) heart failure: Status: Acute (5) Status post transcatheter aortic valve replacement: Status: Acute DS: Summary Hospital Course Hospital Course: From the history and physical by the admitting hospitalist, CAITLIN Diaz, 07/20/24: 67-year-old female with history of atrial fibrillation/flutter anticoagulated with Coumadin, heart failure with preserved ejection fraction, aortic stenosis s/p TAVR procedure in 08/2022, s/p St. Alex valve, history of amiodarone to xicity, interstitial lung disease and COPD with chronic hypoxemic respiratory failure, pacer maker in place, and mood disorder who is obese and recently started ozempic last week presented to the ED earlier today for evaluation of sob and palpitations. She has a long history of atrial fibrillation and was recently restarted on amiodarone 400mg BID scheduled for cardioversion last saturday but ultimately converted back to NSR and amio dose was reduced to 200mg daily. Two days ago reports she began experiencing chest tightness, palpitations and KRAUS. Monitored her HR and reports fluctuations ranging 40-170. Reports 6lb weight loss since last week but attributes this to ozempic use. NO edema, chronic orthopnea. In the ED intermittently tachcyardic to 130, vitals otherwise stable. Hematology studies unremarkable. Renal function baseline. K 2.7. Trop 13.7, BNP 143. CXR shows chronic increased lung marking with peribronchial cuffind. There are also hazy patchy airspace opacities at the mid and lower lungs increased since prior cxr likely cardiogenic in etiology developing edema vs inflammatory or infectious. Int he ED, given 40mg furosemide, 40 meq KCl and IV kcl. From the cardiology consultation by wireless consultant Santi Perry MD, 07/21/24: This is a cardiology consultation regarding atrial fibrillation. She has a fairly complex medical history. History of Saint Alex mechanical mitral valve along with tricuspid annuloplasty for rheumatic heart disease. She also has transcatheter aortic valve replacement for severe aortic stenosis. Chronic congestive heart failure, diastolic. Intermittent atrial fibrillation. In the past, she has been on amiodarone but she also had a issue with pulmonary issues but I am not certain if there was a true amiodarone connection or not. Any case, recently she is again having atrial fibrillation issues. Yesterday, she was in the clinic and EKG had shown atrial fibrillation rapid rate and she also had some heart failure symptoms which led to ER visit and then admission. However, overnight she converted back to sinus rhythm and she is currently in dual-chamber pacing. She states she feels fine and back to her usual self. She has recently been commenced on amiodarone. Otherwise, feels okay. She was admitted to the telemetry unit and cardioversion was planned; however, as noted above, she converted spontaneously to AV dual-chamber paced rhythm. A low-dose beta ashok [metoprolol tartrate 12.5 mg bid] was started and amiodarone was continued. Low potassium was replaced and BMP should be rechecked in 1 week. She got IV furosemide and was discharged on her usual PO furosemide dose. Ultimately, she will follow up with her usual client account representative, Luis Antonio Nelson, to plan for EP ablation, which may be complicated by her mechanical mitral valve. Time Attestation Discharge Coordination Time (in mins): 35 Quality: Safe Use of Opioids Does Pt have an Active Cancer Diagnosis on the Problem List?: No Quality: Stroke Does the patient have a stroke diagnosis?: No Physical Exam Vital Signs: Vital Signs: Last Vital Signs Temp 99.4 F 07/21/24 12:00 Pulse 72 07/21/24 12:00 Resp 20 07/21/24 12:00 BP 92/50 L 07/21/24 12:00 Pulse Ox 92 07/21/24 12:00 O2 Del Method Nasal Cannula 07/21/24 12:00 O2 Flow Rate 2 07/21/24 12:00 Oxygen Flow Rate 2 07/20/24 12:12 BMI result Body Mass Index 32.7 Gen: in no acute distress HEENT: sclera anicteric, moist mucus membranes Neck: supple Lungs: clear to auscultation bilaterally Heart: regular rate and rhythm, mechanical S1, 2/6 systolic murmur along RSB Abd: soft, non-tender, non-distended Ext: no edema Skin: warm/well-perfused Neuro: alert and oriented x3, no focal findings Psych: appropriate affect DS: Data Data Completed and Pending Completed studies during hospitalization [Text1]: Laboratory Results WBC 7.1 X10*3/uL (4.8-10.8) 07/21/24 06:02 RBC 5.54 X10*6/uL (4.20-5.50) H 07/21/24 06:02 Hgb 15.4 g/dl (12.0-16.0) 07/21/24 06:02 Hct 47.9 % (37.0-47.0) H 07/21/24 06:02 MCV 86.5 fL (80.0-98.0) 07/21/24 06:02 MCH 27.8 pg (27.0-33.0) 07/21/24 06:02 MCHC 32.2 g/dl (31.0-35.0) 07/21/24 06:02 RDW 15.6 % (11.0-16.0) 07/21/24 06:02 Plt Count 171 X10*3/uL (160-400) 07/21/24 06:02 MPV 12.6 fL (9.4-12.3) H 07/21/24 06:02 Immature Gran % (Auto) 0.4 % (0.0-0.4) 07/21/24 06:02 Neut % (Auto) 83.9 % (45-73) H 07/21/24 06:02 Lymph % (Auto) 7.1 % (20-40) L 07/21/24 06:02 [place] % (Auto) 6.4 % (2-11) 07/21/24 06:02 Eos % (Auto) 1.6 % (0-4) 07/21/24 06:02 Baso % (Auto) 0.6 % (0-2) 07/21/24 06:02 Lymph # (Auto) 0.5 X10*3/uL (1.2-4.9) L 07/21/24 06:02 [place] # (Auto) 0.5 X10*3/uL (0.1-1.2) 07/21/24 06:02 Eos # (Auto) 0.1 X10*3/uL (0.0-0.4) 07/21/24 06:02 Baso # (Auto) 0.0 X10*3/uL (0.0-0.2) 07/21/24 06:02 Abs Immat Gran (auto) 0.03 X10*3/uL (0.00-0.03) 07/21/24 06:02 Absolute Neuts (auto) 5.9 x10*3/uL (2.0-8.3) 07/21/24 06:02 Absolute Nucleated RBC 0.000 X10*3/uL (0.0-0.012) 07/21/24 06:02 Nucleated RBC % (auto) 0.0 /100WBC (0.0-0.2) 07/21/24 06:02 PT 29.7 SEC (10.9-12.4) H 07/21/24 06:02 INR 2.5 (0.9-1.1) H 07/21/24 06:02 APTT 43.8 SEC (26.0-36.8) H 07/20/24 12:28 Sodium 140 mmol/L (135-145) 07/21/24 06:02 Potassium 3.1 mmol/L (3.3-5.1) L 07/21/24 06:02 Chloride 102 mmol/L (96-108) 07/21/24 06:02 Carbon Dioxide 29 mmol/L (22-29) 07/21/24 06:02 Anion Gap 12 (12-20) 07/21/24 06:02 BUN 22 mg/dL (9-16) H 07/21/24 06:02 Creatinine 0.87 mg/dL (0.5-1.4) 07/21/24 06:02 Estim Creat Clear Calc 61.8 07/21/24 06:02 Estimated GFR > 60 07/21/24 06:02 Random Glucose 88 mg/dL (60-115) 07/21/24 06:02 Calcium 9.8 mg/dL (8.4-10.2) 07/21/24 06:02 Magnesium 2.2 mg/dL (1.6-2.6) 07/20/24 14:15 Total Bilirubin 1.0 mg/dL (0.0-1.0) 07/20/24 14:15 AST 22 U/L (5-31) 07/20/24 14:15 ALT 13 U/L (0-31) 07/20/24 14:15 Alkaline Phosphatase 120 U/L (39-117) H 07/20/24 14:15 Troponin I High Sens 13.7 ng/L (<3.5-17.0) 07/20/24 12:28 B-Natriuretic Peptide 143 pg/mL (<100) H 07/20/24 12:28 Total Protein 8.1 g/dL (6.5-8.0) H 07/20/24 14:15 Albumin 4.0 g/dL (3.5-5.0) 07/20/24 14:15 TSH 4.84 uIU/mL (0.32-4.0) H 07/20/24 12:28 Free T4 1.19 ng/dL (0.71-1.85) 07/20/24 12:28 Influenza Type A (PCR) NEGATIVE (Negative) 07/20/24 14:15 Influenza Type B (PCR) NEGATIVE (Negative) 07/20/24 14:15 RSV RNA Qual (PCR) NEGATIVE (Negative) 07/20/24 14:15 SARS-CoV-2 RNA (RT-PCR) NEGATIVE (Negative) 07/20/24 14:15 Impressions Chest X-Ray 07/20/24 12:08 IMPRESSION: 1. Chronic increased lung markings with peribronchial cuffing. 2. Hazy patchy airspace opacities at the mid and lower lungs increased since prior chest x-ray June 20, [address] chest June 05, 2024. This is likely cardiogenic in etiology, developing pulmonary edema, versus inflammatory or infectious etiologies Electronically signed by: Regulo Lancaster MD 07/20/2024 03:04 PM EDT Discharge Plan Discharge Anticipated Discharge Date/Time: 07/21/24 12:53 Patient Disposition: Home, Self-Care Discharge Diagnosis: CHF exacerbation due to atrial fibrillation hypokalemia Referrals: Regi Oneill MD [Primary Care Provider] - 1 Week Luis Antonio Nelson MD [Physician] - 2 Weeks Discharge Medications: New metoprolol tartrate 25 mg tablet 12.5 mg PO BID Qty: 30 0RF Continued Jardiance 10 mg tablet 10 mg PO DAILY Qty: 30 8RF warfarin 2.5 mg tablet 7.5 mg PO DAILY@0700 Protocol: Dose Management Condition: Saturday (Week One) Dose/Route: 7.5 mg Instruction: 3 x 2.5 mg tablets Condition: Saturday Dose/Route: 7.5 mg Instruction: 3 x 2.5 mg tablets Condition: Saturday Dose/Route: 7.5 mg Instruction: 3 x 2.5 mg tablets Condition: Saturday Dose/Route: 7.5 mg Instruction: 3 x 2.5 mg tablets Condition: Dose/Route: 7.5 mg Instruction: 3 x 2.5 mg tablets Condition: Saturday Dose/Route: 7.5 mg Instruction: 3 x 2.5 mg tablets Condition: Saturday Dose/Route: 7.5 mg Instruction: 3 x 2.5 mg tablets Condition: Saturday (Week Two) Dose/Route: 7.5 mg Instruction: 3 x 2.5 mg tablets Condition: Saturday Dose/Route: 7.5 mg Instruction: 3 x 2.5 mg tablets Condition: Saturday Dose/Route: 7.5 mg Instruction: 3 x 2.5 mg tablets Condition: Saturday Dose/Route: 7.5 mg Instruction: 3 x 2.5 mg tablets Condition: Dose/Route: 7.5 mg Instruction: 3 x 2.5 mg tablets Condition: Saturday Dose/Route: 7.5 mg Instruction: 3 x 2.5 mg tablets Condition: Saturday Dose/Route: 7.5 mg Instruction: 3 x 2.5 mg tablets Protocol Text: Adjustment Start Date: Saturday07/20/24 INR Value: 3.3 INR Date: 07/20/24 Recheck Date: 07/27/24 Patient Comments: only using 2.5mg tablet now Rx Instructions: 10mg x 1 day/ 7.5mg x 6 days amiodarone 200 mg tablet 200 mg PO DAILY 90 Days Qty: 90 1RF atorvastatin 20 mg Tablet 20 mg PO DAILY cyanocobalamin (vitamin B-12) [Vitamin B-12] 500 mcg Tablet 500 mcg PO DAILY Qty: 90 3RF Trelegy Ellipta 200-62.5-25 mcg blister with device 1 ea inhalation DAILY escitalopram oxalate 5 mg tablet 5 mg PO DAILY@1600 furosemide 40 mg tablet 80 mg PO DAILY@1600 amoxicillin 500 mg capsule 2,000 mg PO ONCE PRN (Reason: Dental Appointment) levothyroxine 25 mcg tablet 25 mcg PO DAILY@0600 ferrous sulfate 325 mg (65 mg iron) tablet 325 mg PO DAILY@1600 albuterol sulfate [Ventolin HFA] 90 mcg/actuation HFA aerosol inhaler 2 puff inhalation Q4-6H PRN (Reason: breathing) ketoconazole 2 % cream 1 appl topical BID Ozempic 0.25 mg or 0.5 mg (2 mg/3 mL) pen injector 0.5 mg subcut WE Discharge Orders: Discharge Order (Routine); Ordered 07/21/24 Ordered By: Nuvia Feliciano Diet: Low salt diet Activity on Discharge: As tolerated Stand Alone Forms: Patient Portal Discharge page Print Language: Albanian Other Ambulatory Orders: Basic Metabolic Panel (Routine) Timeframe: 1 Week Facility: [facility] - Location: Laboratory Ordered By: Nuvia Feliciano Care Plan Goals: cardiac health Health Concerns: CHF exacerbation due to atrial fibrillation hypokalemia Plan of Treatment: continue amiodarone 200 mg daily take metoprolol tartrate 12.5 mg twice daily follow up with Cardiology in 1-2 weeks recheck BMP in 1 week [no fasting required] Please follow up with your primary care doctor within 1 week. Return to the hospital if you experience recurrent or worsening symptoms. Assessment: See Discharge Summary.
--- NOTE | 2024-07-21 13:04 | MHC.CM.PN ---
Patient has been medically cleared for dc to home today, self care.
== END 2024-07-21 14:00 | disposition home or self-care (01) | DRG 308 ==
LOC: HO.ED 15:48 → HO.EDOVER 16:44 → HO.IMC 18:08
PROVIDERS: Physician Assistant Medical; Admitting Provider Physician Assistant; Emergency Provider Emergency Medicine; PCP Student in an Organized Health Care Education/Training Program; Visit Provider Family Medicine
DX: I48.19 Other persistent atrial fibrillation (principal); I50.33 Acute on chronic diastolic (congestive) heart failure; J96.11 Chronic respiratory failure with hypoxia; E03.9 Hypothyroidism, unspecified; F39 Unspecified mood [affective] disorder; J44.9 Chronic obstructive pulmonary disease, unspecified; E87.6 Hypokalemia; Z95.0 Presence of cardiac pacemaker; Z20.822 Contact with and (suspected) exposure to COVID-19; Z87.891 Personal history of nicotine dependence; Z95.2 Presence of prosthetic heart valve; Z79.01 Long term (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; Z79.890 Hormone replacement therapy; Z79.899 Other long term (current) drug therapy
CPT/HCPCS: 0241U; 36415; 71045; 80048; 80053; 83735; 83880; 84439; 84443; 84484; 85025; 85610; 85730; 93005; 99211; 99285; J1940; J3480

== ENCOUNTER → 2024-07-20 16:39 | Outpatient (BNV) | payer MEDICARE, MEDICAID, SELFPAY | PROVIDERS: Admitting Provider Physician Assistant; Emergency Provider Emergency Medicine; PCP Student in an Organized Health Care Education/Training Program; Visit Provider Internal Medicine | DX: I48.91 Unspecified atrial fibrillation (principal); E87.6 Hypokalemia; Z95.2 Presence of prosthetic heart valve; I50.33 Acute on chronic diastolic (congestive) heart failure | CPT/HCPCS: 99223 ==

== ENCOUNTER → 2024-07-20 16:39 | Outpatient (BNV) | payer MEDICARE, MEDICAID, SELFPAY | PROVIDERS: Admitting Provider Physician Assistant; Emergency Provider Emergency Medicine; PCP Student in an Organized Health Care Education/Training Program; Visit Provider Physician Assistant | DX: I48.19 Other persistent atrial fibrillation (principal); I50.33 Acute on chronic diastolic (congestive) heart failure; E87.6 Hypokalemia; Z95.2 Presence of prosthetic heart valve | CPT/HCPCS: 99223; 99239 ==

== ENCOUNTER 2024-07-28 08:22 | Inpatient (IN) | payer MEDICARE, MEDICAID, SELFPAY ==
[2024-07-28] VITALS (14 sets, daily range): BP systolic 100–120; BP diastolic 50–74; PULSE 70–97; RESP 15–24; TEMP 36.7; O2SAT 86–96; BMI 31.1
--- NOTE | ~2024-07-28 | CT_ITS ---
EXAMINATION: CT CHEST WITHOUT CONTRAST CLINICAL INFORMATION: Dyspnea. Question amiodarone toxicity/hypersensitivity pneumonitis. COMPARISON: Chest CTs dating between June 05, 2009 and August 27, 2022. TECHNIQUE: Multidetector volumetric CT imaging of the chest was done. Axial MIP volume rendering provided. Sagittal and coronal reformatted images were obtained. This CT examination was performed using dose optimization techniques as appropriate, variously including the following: *Automated exposure control *Adjustment of mA and/or kV according to patient size (this includes techniques or standardized protocols for targeted exams where dose is matched to indication/reason for exam; i.e. extremities or head) *Use of iterative reconstruction technique DLP: 305 mGy-cm FINDINGS: LUNGS: Extensive interstitial and consolidative alveolar infiltrates predominantly in a peribronchovascular distribution. Scattered groundglass densities at the periphery of these infiltrates. These findings appear new compared with June 05, 2024. Mild emphysema. Patent central bronchi. Right Bochdalek hernia containing only fat. MEDIASTINUM: Mild cardiomegaly. Status post mitral valve replacement and TAVR. Question tricuspid valve repair. Calcification of the wall of the left atrium. Tip of left subclavian pulse generator device leads lies in the right atrial septal wall. No pericardial effusion. Multiple enlarged mediastinal nodes most notably in the subcarinal, AP window, and pretracheal regions. The largest is subcarinal, measuring up to approximately 1.9 cm in short axis. All appear increased in size compared with most recent prior study from June 05, 2024. Limited evaluation for hilar adenopathy on this noncontrast study. CORONARY ARTERY CALCIFICATION: None visualized on this study. PLEURA: There is no pleural effusion. No pleural mass or thickening. AXILLA: No lymphadenopathy by size criteria. UPPER ABDOMEN: Status post gastric sleeve surgery. Approximately 1.5 cm or less benign left adrenal adenomata demonstrating Hounsfield unit densities of less than 10. OSSEOUS STRUCTURES: Mild degenerative changes of the spine. Status post median sternotomy. Mild osteoarthritis of the glenohumeral joints. CT/CT chest wo IV con IMPRESSION: Extensive interstitial and consolidative alveolar infiltrates predominantly in a peribronchovascular distribution. Scattered groundglass densities at the periphery of these infiltrates. Mediastinal adenopathy. These findings appear new compared with June 05, 2024. No pleural effusion. Consider pulmonology consultation. Additional findings, as above. Electronically signed by: Eric Cook MD 07/28/2024 02:46 PM EDT RP
--- NOTE | ~2024-07-28 | XR_ITS ---
EXAMINATION: XR CHEST CLINICAL INFORMATION: Hypersensitivity pneumonitis COMPARISON: 07/28/2024 TECHNIQUE: Semiupright portable 11:06 AM view of the chest was obtained. FINDINGS: Irregular infiltrates right greater the left appears similar without significant progression or regression. Dual-chamber pacemaker in place without change. No pleural fluid. No other change. XR/XR chest 1V IMPRESSION: No significant interval change in the bilateral infiltrates. Electronically signed by: Jeremiah De Oliveira MD 08/01/2024 05:11 PM EDT
--- NOTE | ~2024-07-28 | XR_ITS ---
EXAMINATION: XR CHEST CLINICAL INFORMATION: Shortness of breath COMPARISON: 07/20/2024 TECHNIQUE: Frontal view of the chest was obtained. FINDINGS: Again seen is mild cardiomegaly. Valvular annuloplasty rings are present. Patient status post median sternotomy. Left chest wall dual-lead pacemaker is present. Patchy areas of consolidation noted throughout the lungs, increased when compared to 07/20/2024. No pleural effusions are seen. XR/XR chest 1V IMPRESSION: Increasing patchy areas of airspace disease throughout the lungs. Differential diagnosis includes infectious etiologies versus edema. Electronically signed by: Freddie Wolf MD 07/28/2024 10:11 AM EDT
--- NOTE | 2024-07-28 08:16 | ED_ITS ---
HPI - General Adult General Chief complaint: Dyspnea Stated complaint: SOB X2W, O2 4LPM @BASELINE, 85% PER EMS History of Present Illness ED Provider: Roseanna SOLITARIO narrative: The patient is a 68-year-old female with a history of chronic valvular heart disease. She apparently had rheumatic fever as an 12-year-old. She has had mitral valve replacement with a Saint Alex mechanical valve approximately 18 years ago. She has also had a TAVR for repair of her aortic valve. She is on warfarin. She has a history of paroxysmal atrial fibrillation. She is on amiodarone. The patient has been having problems with shortness of breath over the last few weeks. She came to the hospital 1 week ago on July 20 for shortness of breath and was hospitalized for an overnight in the hospital. Her diagnoses at that time were atrial fibrillation with a rapid ventricular response. She had apparently converted spontaneously. Also she was felt to be in some degree of congestive heart failure. She had metoprolol added to her regimen and she was discharged on July 21. The patient returns to the hospital today because of worsening shortness of breath over the past couple of days. She has not had a fever. She has had no significant cough. No sputum production. No chest pain. She called the ambulance this morning because of shortness of breath. The patient has been on amiodarone for about a month. She had been on amiodarone a couple of years ago but it was discontinued because of a question of possible hypersensitivity pneumonitis. Ultimately this diagnosis was in doubt which is why it was restarted a month ago for management of her AFib. Related Data Home Medications ?Medication ?Instructions ?Recorded ?Confirmed levothyroxine 25 mcg tablet 25 mcg PO DAILY@0600 09/01/20 07/28/24 atorvastatin 20 mg tablet 20 mg PO DAILY 04/26/21 07/28/24 fluticasone fur. 200 mcg-umeclid 1 ea inhalation DAILY 03/26/23 07/28/24 62.5 mcg-vilant 25 mcg inhalat.powder (Trelegy Ellipta) albuterol sulfate 90 mcg/actuation 2 puff inhalation Q4-6H PRN 04/08/23 07/28/24 aerosol inhaler (Ventolin HFA) breathing ferrous sulfate 325 mg (65 mg 325 mg PO DAILY@1600 04/22/23 07/28/24 iron) tablet warfarin 2.5 mg tablet 7.5 mg PO DAILY@1800 01/03/24 07/28/24 ketoconazole 2 % topical cream 1 appl topical BID PRN Itching 05/15/24 07/28/24 escitalopram oxalate 5 mg tablet 5 mg PO DAILY@1600 07/20/24 07/28/24 furosemide 40 mg tablet 40 mg PO DAILY@1600 07/20/24 07/28/24 metoprolol tartrate 25 mg tablet 25 mg PO DAILY 07/28/24 07/28/24 Previous Rx's ?Medication ?Instructions ?Recorded empagliflozin 10 mg tablet 10 mg PO DAILY #30 tabs 01/02/24 (Jardiance) cyanocobalamin (vitamin B-12) 500 500 mcg PO DAILY #90 tabs 05/20/24 mcg tablet (Vitamin B-12) Allergies Allergy/AdvReac Type Severity Reaction Status Date / Time No Known Allergies Allergy Verified 07/28/24 08:41 Review of Systems 2 Review of Systems: Yes all other systems are reviewed and are negative [facility] Past Medical History Medical History Implantable loop recorder present Persistent atrial fibrillation PAF (paroxysmal atrial fibrillation) Increasing shortness of breath Encounter for interrogation of cardiac pacemaker Subtherapeutic international normalized ratio (INR) Heart failure Cardiac pacemaker Nocturnal hypoxemia (~08/15/23) Sinus pause History of cardioversion Interstitial lung disease COPD (chronic obstructive pulmonary disease) Pulmonary nodule Atrial flutter with rapid ventricular response COPD (chronic obstructive pulmonary disease) Exercise hypoxemia Interstitial lung disease Bronchitis due to Staphylococcus aureus History of transcatheter aortic valve replacement (TAVR) Acute diastolic CHF (congestive heart failure) Paroxysmal atrial fibrillation Abnormal EKG Hypoxia Interstitial lung disease Anemia Atrial flutter Obesity (HFpEF) heart failure with preserved ejection fraction Aortic stenosis Current use of anticoagulant therapy Surgical History Status post transcatheter aortic valve replacement Hx of mitral valve replacement (~2004) Status post placement of cardiac pacemaker H/O heart surgery History of sleeve gastrectomy (~2017) Hx of transesophageal echocardiography (SHELIA) for monitoring (~2015) Hx of section Family History Family History Father No problems noted. Mother CVD (cardiovascular disease) Social History Social History Household Members: Children Housing: House Do you presently have visiting nurse or other home services: No Alcohol intake: never Patient Tobacco Use Status: Former Tobacco user Tobacco use type: Cigarette Years Smoked: 29 e-Cigarette/Vaping Use: Never Used Second Hand Smoke Exposure: No Advance Directives: Yes Advance Directives on File: Yes Advance Directives Date on File: 12/18/22 service: No Current occupational status: disabled Physical Exam ED Vital Signs: Vital Signs - 24 hr 07/28/24 08:37 07/28/24 09:49 07/28/24 09:50 Temperature 98.1 F Pulse Rate 83 87 Respiratory Rate 17 24 H Blood Pressure 110/59 L 100/50 L 100/50 L Pulse Oximetry 86 L 86 L Oxygen Delivery Method Nasal Cannula Nasal Cannula Oxygen Flow Rate 4 Fraction of Inspired Oxygen 07/28/24 10:45 07/28/24 10:56 Temperature Pulse Rate 81 Respiratory Rate 16 20 Blood Pressure 107/57 L Pulse Oximetry 92 Oxygen Delivery Method High Flow Nasal Cannula Oxygen Flow Rate 35 Fraction of Inspired Oxygen 40 BMI result Body Mass Index 31.1 Const Other: The patient is awake and alert with a normal mental status. She is a somewhat chronically ill-appearing 68-year-old who does not exhibit significant increased work of breathing. HENMT Other: Face is symmetrical. Mucous membranes moist. Eyes Other: Pupils are round equal, conjunctivae are clear Neck Other: No definite JVD Resp Other: The patient has bilateral crackles Cardio Other: The patient is heart rhythm is irregular. She is not tachycardic. GI Other: Abdomen is soft and nontender Skin Other: Skin is pale and dry. Neuro Other: The patient is awake and alert with a normal mental status. She moves her extremities symmetrically. Exam is nonfocal. Extrem Other: No peripheral edema Medications Administered Generic Name Dose Route Start Last Admin Trade Name Freq PRN Reason Stop Dose Admin Acetaminophen 650 mg 07/28/24 11:37 07/28/24 15:10 Acetaminophen 325 Mg Tablet PO 650 mg Q6H PRN Administration Pain, Mild (Pain Scale 1-3), fever or headache Sodium Chloride 3 ml 07/28/24 16:00 07/28/24 15:13 0.9 % Sodium Chloride Flush 3 Ml Syringe IVFLUSH 3 ml QSHIFT LEONORA Administration Discontinued Medications Generic Name Dose Route Start Last Admin Trade Name Keith PRN Reason Stop Dose Admin Furosemide 40 mg 07/28/24 09:06 07/28/24 09:50 Furosemide 40 Mg/4 Ml Vial IVPUSH 07/28/24 09:07 40 mg ONCE ONE Administration Protocol Potassium Chloride 40 meq 07/28/24 12:13 07/28/24 12:30 Potassium Chloride Packet 20 Meq Packet PO 07/28/24 12:14 40 meq ONCE ONE Administration Medical Decision Making Medical Decision Making [facility] Narrative: The patient has a complex medical history related to childhood rheumatic fever and subsequent severe valvular heart disease. She has a Saint Alex mechanical mitral valve. She has also had a TAVR. She is on warfarin. She presents with worsening shortness of breath. She was hospitalized briefly last week for similar symptoms. Her symptoms have worsened since then. Her chest x-ray today looks worse with diffuse airspace disease bilaterally. She has crackles on exam and my 1st thought was that she was having worsening congestive heart failure and she was given 40 mg of IV furosemide. However her BNP is not worse than last week and she does not have any JVD apparent on exam. She also has no peripheral edema apparent on exam. 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 This was in 2021. At that time her amiodarone was stopped. Amiodarone was restarted 1 month ago. I think it is possible that her shortness of breath and her findings on chest x-ray could be a recurrence of her hypersensitivity pneumonitis. This would account for her elevated CRP I believe. She does not describe having any fever or cough so I think it is unlikely that her lung process is infectious. The patient was dyspneic and had low oxygen saturations. She was particularly short of breath with exertion and desaturated more with exertion. She was ultimately placed on high-flow nasal cannula. This seemed to be effective. She will be admitted to the hospitalist service for further care. Lab Data 07/28/24 09:30 07/28/24 10:27 Labs: Lab Results 07/28/24 07/28/24 Range/Units 09:30 10:27 WBC 10.0 (4.8-10.8) X10*3/uL RBC 5.38 (4.20-5.50) X10*6/uL Hgb 15.2 (12.0-16.0) g/dl Hct 46.3 (37.0-47.0) % MCV 86.1 (80.0-98.0) fL MCH 28.3 (27.0-33.0) pg MCHC 32.8 (31.0-35.0) g/dl RDW 15.1 (11.0-16.0) % Plt Count 181 (160-400) X10*3/uL MPV 12.4 H (9.4-12.3) fL Immature Gran % (Auto) 0.3 (0.0-0.4) % Neut % (Auto) 86.4 H (45-73) % Lymph % (Auto) 6.4 L (20-40) % [place] % (Auto) 5.6 (2-11) % Eos % (Auto) 0.7 (0-4) % Baso % (Auto) 0.6 (0-2) % Lymph # (Auto) 0.6 L (1.2-4.9) X10*3/uL [place] # (Auto) 0.6 (0.1-1.2) X10*3/uL Eos # (Auto) 0.1 (0.0-0.4) X10*3/uL Baso # (Auto) 0.1 (0.0-0.2) X10*3/uL Abs Immat Gran (auto) 0.03 (0.00-0.03) X10*3/uL Absolute Neuts (auto) 8.7 H (2.0-8.3) x10*3/uL Absolute Nucleated RBC 0.000 (0.0-0.012) X10*3/uL Nucleated RBC % (auto) 0.0 (0.0-0.2) /100WBC ESR 64 H (0-20) MM/HR PT 101.3 H D (10.9-12.4) SEC INR 8.7 H* D (0.9-1.1) Sodium 137 (135-145) mmol/L Potassium 3.2 L (3.3-5.1) mmol/L Chloride 98 (96-108) mmol/L Carbon Dioxide 27 (22-29) mmol/L Anion Gap 15 (12-20) BUN 16 (9-16) mg/dL Creatinine 0.85 (0.5-1.4) mg/dL Estim Creat Clear Calc 61.7 Estimated GFR > 60 Random Glucose 107 (60-115) mg/dL Calcium 9.1 D (8.4-10.2) mg/dL Magnesium 2.2 (1.6-2.6) mg/dL Total Bilirubin 0.8 (0.0-1.0) mg/dL Direct Bilirubin 0.4 (0.0-0.5) mg/dL AST 23 (5-31) U/L ALT 9 (0-31) U/L Alkaline Phosphatase 103 (39-117) U/L Troponin I High Sens 11.2 (<3.5-17.0) ng/L C-Reactive Protein 15.32 H (< or = 0.50) mg/dL B-Natriuretic Peptide 118 H (<100) pg/mL Total Protein 8.7 H (6.5-8.0) g/dL Albumin 3.4 L (3.5-5.0) g/dL TSH 2.75 (0.32-4.0) uIU/mL Urine Color Dark Yellow Urine Appearance Clear Urine pH 5.5 (5.0-9.0) Ur Specific [place] 1.020 (1.005-1.025) Urine Protein Trace (Neg-Trace) mg/dL Urine Glucose (UA) 500 H (Negative) mg/dL Urine Ketones Negative (Negative) mg/dL Urine Blood Negative (Negative) Urine Nitrite Negative (Negative) Ur Leukocyte Esterase Negative (Negative) Influenza Type A (PCR) NEGATIVE (Negative) Influenza Type B (PCR) NEGATIVE (Negative) RSV RNA Qual (PCR) NEGATIVE (Negative) SARS-CoV-2 RNA (RT-PCR) NEGATIVE (Negative) Independent Interpretation I performed an independent interpretation of an: EKG Interpretation: EKG at 08:38 shows atrial fibrillation with occasional ventricular paced complexes at 87 beats per minute. No definite acute ischemic changes. Critical Care Time Critical Care Time Critical Care Time: Yes Total Critical Care Time: 35 Attestation: The patient was critically ill with a high probability of imminent or life- threatening deterioration. ?I spent greater than 30 minutes of discontinuous time evaluating the patient, delivering critical care at the bedside, discussing evaluating data with consultants. ?Critical care time does not include time spent performing separately billable procedures or teaching. ?Time spent performing critical care with 35 minutes. Discharge Plan Discharge Clinical Impression: Shortness of breath, Hypoxia Patient Disposition: Admitted As Inpatient
--- NOTE | 2024-07-28 08:31 | ECG_ITS ---
Test Reason : afib Blood Pressure : / mmHG Vent. Rate : 087 BPM Atrial Rate : 000 BPM P-R Int : 000 ms QRS Dur : 108 ms QT Int : 394 ms P-R-T Axes : 000 048 -48 degrees QTc Int : 474 ms Atrial fibrillation with occasional ventricular-paced complexes Minimal voltage criteria for LVH, may be normal variant ( Mitchell product ) ST & T wave abnormality, consider inferior ischemia Abnormal ECG When compared with ECG of 21-JUL-2024 09:11, Electronic ventricular pacemaker has replaced Electronic atrial pacemaker Referred By: Slade Condon Electronically Signed By:MEL JERONIMO
--- NOTE | 2024-07-28 09:13 | PC.NURSE ---
Unable to establish PIV x 2 attempts.
[2024-07-28 09:37] LABS: MANUAL DIFF FLAG NO
[2024-07-28 09:47] LABS: Basophils Absolute Auto 0.1 X10*3/uL (0.0-0.2); Basophils Percent Auto 0.6 % (0-2); Eosinophils Absolute Auto 0.1 X10*3/uL (0.0-0.4); Eosinophils Percent Auto 0.7 % (0-4); Hematocrit 46.3 % (37.0-47.0); Hemoglobin 15.2 g/dl (12.0-16.0); Imm Gran Abs Auto 0.03 X10*3/uL (0.00-0.03); Imm Gran Pct Auto 0.3 % (0.0-0.4); Lymphocytes Absolute Auto 0.6 X10*3/uL (1.2-4.9); Lymphocytes Percent Auto 6.4 % (20-40); Mean Corpuscular HGB Conc 32.8 g/dl (31.0-35.0); Mean Corpuscular Hemoglobin 28.3 pg (27.0-33.0); Mean Corpuscular Volume 86.1 fL (80.0-98.0); Mean Platelet Volume 12.4 fL (9.4-12.3); Monocytes Absolute Auto 0.6 X10*3/uL (0.1-1.2); Monocytes Percent Auto 5.6 % (2-11); Neutrophils Absolute Auto 8.7 x10*3/uL (2.0-8.3); Neutrophils Percent Auto 86.4 % (45-73); Platelet Count 181 X10*3/uL (160-400); Red Blood Count 5.38 X10*6/uL (4.20-5.50); Red Cell Distribution Width 15.1 % (11.0-16.0)
[2024-07-28 09:50] LABS: Prothrombin Time 101.3 SEC (10.9-12.4)
[2024-07-28] MEDS: Furosemide 40 MG/4 ML VIAL IVPUSH ×2 (09:50→20:50)
--- NOTE | 2024-07-28 09:50 | PC.NURSE ---
Pt winded with minimal exertion, oxygen saturations drop. Pt takes awhile to recover.
[2024-07-28 09:54] LABS: INTERNATIONAL NORM RATIO 8.7 (0.9-1.1)
[2024-07-28 09:59] LABS: B Type Natriuretic Peptide 118 pg/mL (<100)
[2024-07-28 10:24] LABS: Influenza A PCR NEGATIVE (Negative); Influenza B PCR NEGATIVE (Negative); Resp Syncy Virus RNA Qual PCR NEGATIVE (Negative); SARS COV2 PCR INHOUSE NEGATIVE (Negative)
[2024-07-28 10:34] LABS: Appearance Urine Clear; Color Urine Dark Yellow; Glucose Urine UA 500 mg/dL (Negative); Leukocyte Esterase Urine Negative (Negative); Nitrite Urine Negative (Negative); PH 5.5 (5.0-9.0); Urine Blood Negative (Negative); Urine Ketones Negative (Negative); Urine Protein Trace mg/dL (Neg-Trace)
[2024-07-28 10:51] LABS: Alanine Aminotransferase 9 U/L (0-31); Albumin Level 3.4 g/dL (3.5-5.0); Alkaline Phosphatase 103 U/L (39-117); Anion Gap 15 (12-20); Aspartate Amino Transferase 23 U/L (5-31); Bilirubin Direct 0.4 mg/dL (0.0-0.5); Bilirubin Total 0.8 mg/dL (0.0-1.0); Blood Urea Nitrogen 16 mg/dL (9-16); C Reactive Protein 15.32 mg/dL (< or = 0.50); Calcium 9.1 mg/dL (8.4-10.2); Carbon Dioxide 27 mmol/L (22-29); Chloride 98 mmol/L (96-108); Creatinine Clr Calc Pharmacy 61.7; Estimated Glomerular Filt Rate > 60; Glucose Random 107 mg/dL (60-115); Magnesium 2.2 mg/dL (1.6-2.6); Potassium 3.2 mmol/L (3.3-5.1); Sodium 137 mmol/L (135-145); Total Protein 8.7 g/dL (6.5-8.0)
--- NOTE | 2024-07-28 10:56 | PC.NURSE ---
Pt placed on HFNC by respiratory 35L 40% sating 92%.
[2024-07-28 10:58] LABS: Troponin-I High Sensitivity 11.2 ng/L (<3.5-17.0)
--- NOTE | 2024-07-28 11:44 | P.HPHOSP_ITS ---
History of Present Illness Date of Service: 07/28/24 Attending physician on admission: González Padilla Chief Complaint: sob 67-year-old female with history of atrial fibrillation/flutter anticoagulated with Coumadin, heart failure with preserved ejection fraction, aortic stenosis s/p TAVR procedure in 08/2022, s/p St. Alex valve, history of amiodarone toxicity, interstitial lung disease and COPD with chronic hypoxemic respiratory failure, pacer maker in place, and mood disorder who is obese with BMI >31 presented to the ED earlier today for evaluation of walls. She was recently admitted due to afib rvr with chf exacerbation, with plan for cardioversion but spontaneously converted to NSR, was diuresed and was discharged home. Due to complex cardiac history was followed by cardiology (sees Dr Leslie zazueta) and was recommended for possible ablation by EP in [place]. She reports the following day WALLS recurred though this time no palpitations, lightheadedness, chest pain. No fevers, chills, recent illness. No cough, wheezing, edema, weight gain. Denies any salt loading- makes all of her meals at home and ensures they are low sodium, also fluid restricts. Has been taking her medications as prescribed including diuretics. She was on amiodarone several years ago but this was discontinued due to concerns for amiodarone toxicity given interstitial findings on CT with question of hypersensitivity pneumonitis, elevated CRP, neutrophilia and recurrent symptoms. Seen by pulmonology who did not feel imaging was consistent with amio toxicity but had remained off of the medication until she was reloaded in early June, currently on 200mg daily. It does not appear bronchoscopy or biopsies were obtained at that time. Since arrival blood pressures soft and has been hypoxic to 86% on 6L, now on high flow reporting improvement in symptoms. Vitals otherwise stable, rates controlled. No leukocytosis but has neutrophilia. Renal function baseline, K 3.2, lytes otherwise wnl. Trop wnl, BNP 118. CRP 15.32, esr pending. TSH pending. INR 8.7. Negative for covid, flu, rsv. CXR shows increasing patchy areas of airspace opacities. In the ED, US of jugular veins performed bedside, not consistent with JVD. No edema. IN the ED, diuresed with 40mg IV lasix. Review of Systems 2 Review of Systems: Yes all other systems are reviewed and are negative [facility] Medical History Implantable loop recorder present Persistent atrial fibrillation PAF (paroxysmal atrial fibrillation) Increasing shortness of breath Encounter for interrogation of cardiac pacemaker Subtherapeutic international normalized ratio (INR) Heart failure Cardiac pacemaker Nocturnal hypoxemia (~08/15/23) Sinus pause History of cardioversion Interstitial lung disease COPD (chronic obstructive pulmonary disease) Pulmonary nodule Atrial flutter with rapid ventricular response COPD (chronic obstructive pulmonary disease) Exercise hypoxemia Interstitial lung disease Bronchitis due to Staphylococcus aureus History of transcatheter aortic valve replacement (TAVR) Acute diastolic CHF (congestive heart failure) Paroxysmal atrial fibrillation Abnormal EKG Hypoxia Interstitial lung disease Anemia Atrial flutter Obesity (HFpEF) heart failure with preserved ejection fraction Aortic stenosis Current use of anticoagulant therapy Family History Father No problems noted. Mother CVD (cardiovascular disease) Surgical History Status post transcatheter aortic valve replacement Hx of mitral valve replacement (~2004) Status post placement of cardiac pacemaker H/O heart surgery History of sleeve gastrectomy (~2017) Hx of transesophageal echocardiography (SHELIA) for monitoring (~2015) Hx of section Social History Household Members: Children Housing: House Do you presently have visiting nurse or other home services: No Alcohol intake: never Patient Tobacco Use Status: Former Tobacco user Tobacco use type: Cigarette Years Smoked: 29 e-Cigarette/Vaping Use: Never Used Second Hand Smoke Exposure: No Advance Directives: Yes Advance Directives on File: Yes Advance Directives Date on File: 12/18/22 service: No Current occupational status: disabled Meds Allergies Allergy/AdvReac Type Severity Reaction Status Date / Time No Known Allergies Allergy Verified 07/28/24 08:41 Active Medications: Current Medications Acetaminophen (Acetaminophen 325 Mg Tablet) 650 mg PO Q6H PRN PRN Reason: Pain, Mild (Pain Scale 1-3), fever or headache Calcium Carbonate (Calcium Carbonate 750 Mg Tab.Chew) 750 mg PO Q4H PRN PRN Reason: Heartburn Furosemide (Furosemide 40 Mg/4 Ml Vial) 40 mg IVPUSH DAILY LEONORA; Protocol Magnesium Hydroxide (Milk Of Magnesia 30 Ml Oral.Susp) 30 ml PO DAILY PRN PRN Reason: Constipation Melatonin (Melatonin 3 Mg Tablet) 6 mg PO BEDTIME PRN PRN Reason: Insomnia Sodium Chloride (0.9 % Sodium Chloride Flush 3 Ml Syringe) 3 ml IVFLUSH QSHIFT LEONORA Home Medications ?Medication ?Instructions ?Recorded ?Confirmed ?Last Taken ?Type levothyroxine 25 mcg tablet 25 mcg PO DAILY@0600 09/01/20 07/28/24 07/27/24 History atorvastatin 20 mg tablet 20 mg PO DAILY 04/26/21 07/28/24 07/27/24 History fluticasone fur. 200 mcg-umeclid 1 ea inhalation DAILY 03/26/23 07/28/24 07/27/24 History 62.5 mcg-vilant 25 mcg inhalat.powder (Trelegy Ellipta) albuterol sulfate 90 mcg/actuation 2 puff inhalation Q4-6H PRN 04/08/23 07/28/24 07/20/24 07:00 History aerosol inhaler (Ventolin HFA) breathing ferrous sulfate 325 mg (65 mg 325 mg PO DAILY@1600 04/22/23 07/28/24 07/20/24 07:00 History iron) tablet warfarin 2.5 mg tablet 7.5 mg PO DAILY@1800 01/03/24 07/28/24 07/20/24 07:00 History ketoconazole 2 % topical cream 1 appl topical BID PRN Itching 05/15/24 07/28/24 07/20/24 07:00 History escitalopram oxalate 5 mg tablet 5 mg PO DAILY@159907/20/24 07/28/24 07/20/24 07:00 History furosemide 40 mg tablet 40 mg PO DAILY@159907/20/24 07/28/24 07/20/24 07:00 History metoprolol tartrate 25 mg tablet 25 mg PO DAILY 07/28/24 07/28/24 07/27/24 History Physical Exam 2 Vital Signs and Narrative: Vital Signs: Last Vital Signs Temp 98.1 F 07/28/24 08:37 Pulse 81 07/28/24 10:56 Resp 20 07/28/24 10:56 BP 107/57 L 07/28/24 10:56 Pulse Ox 92 10/01/24 10:56 O2 Del Method High Flow Nasal C annula 07/28/24 10:56 O2 Flow Rate 35 07/28/24 10:56 FiO2 40 07/28/24 10:56 Oxygen Flow Rate 4 07/28/24 08:37 BMI result Body Mass Index 31.1 Constitutional - Awake and Alert, No apparent distress Eyes - PERRLA, EOMI Cardiovascular - S1S2, RRR, No edema. No JVD- IJ collapse on bedside u/s Respiratory - Normal lung expansion, Normal respiratory effort, No respiratory distress, crackles bilaterally, no wheezing Gastrointestinal - NT / ND; +BS; No rebound or guarding Extremities - no calf tenderness bilaterally, no swelling Skin - Warm/Dry Neurological - Alert & oriented x3 Psychological - Appropriate affect Results Labs 07/28/24 09:30 07/28/24 10:27 Labs: Laboratory Results - last 24 hr 07/28/24 07/28/24 09:30 10:27 MCV 86.1 MCH 28.3 MCHC 32.8 RDW 15.1 Plt Count 181 MPV 12.4 H Immature Gran % (Auto) 0.3 Neut % (Auto) 86.4 H Lymph % (Auto) 6.4 L [place] % (Auto) 5.6 Eos % (Auto) 0.7 Baso % (Auto) 0.6 Lymph # (Auto) 0.6 L [place] # (Auto) 0.6 Eos # (Auto) 0.1 Baso # (Auto) 0.1 Abs Immat Gran (auto) 0.03 Absolute Neuts (auto) 8.7 H Absolute Nucleated RBC 0.000 Nucleated RBC % (auto) 0.0 PT 101.3 H D INR 8.7 H* D Anion Gap 15 Estim Creat Clear Calc 61.7 Estimated GFR > 60 Random Glucose 107 Calcium 9.1 D Magnesium 2.2 Total Bilirubin 0.8 Direct Bilirubin 0.4 AST 23 ALT 9 Alkaline Phosphatase 103 Troponin I High Sens 11.2 C-Reactive Protein 15.32 H B-Natriuretic Peptide 118 H Total Protein 8.7 H Albumin 3.4 L Urine Color Dark Yellow Urine Appearance Clear Urine pH 5.5 Ur Specific [place] 1.020 Urine Protein Trace Urine Glucose (UA) 500 H Urine Ketones Negative Urine Blood Negative Urine Nitrite Negative Ur Leukocyte Esterase Negative Influenza Type A (PCR) NEGATIVE Influenza Type B (PCR) NEGATIVE RSV RNA Qual (PCR) NEGATIVE SARS-CoV-2 RNA (RT-PCR) NEGATIVE Imaging Radiologist's Impressions: Impressions Chest X-Ray 07/28/24 08:32 IMPRESSION: Increasing patchy areas of airspace disease throughout the lungs. Differential diagnosis includes infectious etiologies versus edema. Electronically signed by: Freddie Wolf MD 07/28/2024 10:11 AM EDT RP Assessment and Plan (1) Hypoxia: Status: Acute (2) Shortness of breath: Status: Acute (3) Hypokalemia: Status: Acute (4) Acute on chronic diastolic (congestive) heart failure: Status: Acute Plan 67-year-old female with history of atrial fibrillation/flutter anticoagulated with Coumadin, heart failure with preserved ejection fraction, aortic stenosis s/p TAVR procedure in 08/2022, s/p St. Alex valve, history of amiodarone toxicity, interstitial lung disease and COPD with chronic hypoxemic respiratory failure, pacer maker in place, and mood disorder who is obese and recently started ozempic 2 weeks ago for weight loss admitted acute hypoxemic respiratory failure secondary to chf exacerbation. #Acute exacerbation of HFpEF with acute hypoxemic respiratory failure -CXR shows worsening of patchy areas of airspace disease throughout the lungs with differential to include infectious etiology versus edema. No cough, leukocytosis or fevers to suggest pneumonia. She is symptomatic with dyspnea on exertion, no JVD or edema -40mg IV lasix bid today. Resume PO tomrrow -continue jardiance -last echo 04/2024: 1. Normal LV ejection fraction 65-70% with mild LVH with restrictive filling pattern 2. Mildly dilated right ventricle with reduced systolic function 3. Moderately dilated left atrium and severely dilated right atrium 4. Normally function bioprosthetic aortic valve with mean gradient of 13 mm Hg next 5. Normally functioning mechanical mitral valve with mean gradient of 3 mm Hg 6. Moderately elevated right ventricular systolic pressure with mildly elevated right atrial pressures 7. No gross pericardial effusion -cardiac diet -strict I&O -cardiology consult -continue high flow, wean as tolerated #?amiodarone toxicity -spontaneously converted to NSR last week during admission, but now back in afib -historically had ?of toxicity but pulmonology ultimately did not feel was the case due to imaging. No bronch/biopsies taken. However, was held but then was restarted 1st week of June with significant increase in symptoms -Elevated CRP, ESR pending. Hold on further imaging- awaiting pulm recommendations -pulm and cardiology consult -will hold for now -tsh pending #Paroxysmal atrial fibrillation- rate controlled on admission -Hold coumadin due to supratherapeutic INR 8.7, follow daily, goal 2.5-3.5 -continue bb -hold amiodarone for now. See above -Cardiology consult,- was planned for cardioversion last week, but spontaneously converted -continue tele #Acute hypokalemia -due to lasix use -repleted in ED -follow closely, start daily replacement if indicated #Intermittent bradycardia -?need for pacer interrogation, cardiology consult #COPD with chronic hypoxemic respiratory failure -no exacebration -continue home inhalers, albuterol prn. #HTN -metoprolol #Mechanical Mitral valve -continue coumadin (takes am) -supratherapeutic INR at 8.7. Hold and trend #hypothyroidism -continue home meds -tsh pending #mood disorder -continue home meds DVT prophylaxis- resume coumadin once therapeutic Full code Patient requires inpt stay at least 2 midnights for iv diuresis to manage chf exacebration with hypoxia requiring high flow with expert consultation Quality Stroke Does the patient have a stroke diagnosis?: No VTE Prior VTE?: No VTE Risk Level:: Medical - moderate - high VTE Device Contraindication: Treatment Not Indicated VTE Drug Contraindication: N/A - Med Ordered
[2024-07-28 12:15] LABS: TSH reflex Free T4 2.75 uIU/mL (0.32-4.0)
[2024-07-28] MEDS: Potassium Chloride Packet 20 MEQ PACKET 40 MEQ PO (12:30)
--- NOTE | 2024-07-28 12:52 | PHA.MEDREC ---
Pharmacy Consult ? Medication Reconciliation Pharmacy has completed the medication reconciliation. Patient stated she normally carries a list but EMS took it. Went through claim history medications and she was able to verify and specify timing and amount of tablets. She told me she was taken off of amiodarone, no longer takes sertraline, and is stopping Ozempic. Noted she is on a 7.5mg daily regimen of warfarin.
--- NOTE | 2024-07-28 13:08 | P.CONCA_ITS ---
History of Present Illness History of Present Illness Date of Service: 07/28/24 Requesting physician: González Padilla Chief complaint: PAF, resp failure Narrative: [age] year female with complex cardiovascular issues including previous mechanical mitral valve replacement on chronic Coumadin and previous transcatheter aortic valve replacement. She has history of heart failure with preserved ejection fraction and very difficult to control atrial fibrillation requiring multiple cardioversions and medications in the past. More recently she had episodes of paroxysmal atrial fibrillation and was started on amiodarone. At 1 stage she received amiodarone and had some respiratory issues but at that time it was felt that she developed pulmonary edema rather than amiodarone toxicity. Recently she was started on amiodarone for cardioversion but it appears she was in sinus rhythm and was going in and out of atrial fibrillation. Today she presented because she had progressive shortness of breath over the last 3 weeks and was noticed to be significantly hypoxic. She is in atrial fibrillation currently. Her chest x-ray is showing significant bilateral infiltrates and there is concern that she may have either ARDS or amiodarone toxicity. She has no orthopnea or PND. She never gets any peripheral edema. No abdominal distention or signs of volume overload. [facility] Past Medical History Medical History Implantable loop recorder present Persistent atrial fibrillation PAF (paroxysmal atrial fibrillation) Increasing shortness of breath Encounter for interrogation of cardiac pacemaker Subtherapeutic international normalized ratio (INR) Heart failure Cardiac pacemaker Nocturnal hypoxemia (~08/15/23) Sinus pause History of cardioversion Interstitial lung disease COPD (chronic obstructive pulmonary disease) Pulmonary nodule Atrial flutter with rapid ventricular response COPD (chronic obstructive pulmonary disease) Exercise hypoxemia Interstitial lung disease Bronchitis due to Staphylococcus aureus History of transcatheter aortic valve replacement (TAVR) Acute diastolic CHF (congestive heart failure) Paroxysmal atrial fibrillation Abnormal EKG Hypoxia Interstitial lung disease Anemia Atrial flutter Obesity (HFpEF) heart failure with preserved ejection fraction Aortic stenosis Current use of anticoagulant therapy Family History Family History Father No problems noted. Mother CVD (cardiovascular disease) Surgical History Surgical History Status post transcatheter aortic valve replacement Hx of mitral valve replacement (~2004) Status post placement of cardiac pacemaker H/O heart surgery History of sleeve gastrectomy (~2017) Hx of transesophageal echocardiography (SHELIA) for monitoring (~2015) Hx of section Social History Social History Household Members: Children Housing: House Do you presently have visiting nurse or other home services: No Alcohol intake: never Patient Tobacco Use Status: Former Tobacco user Tobacco use type: Cigarette Years Smoked: 29 e-Cigarette/Vaping Use: Never Used Second Hand Smoke Exposure: No Advance Directives: Yes Advance Directives on File: Yes Advance Directives Date on File: 12/18/22 service: No Current occupational status: disabled Meds Allergies Allergy/AdvReac Type Severity Reaction Status Date / Time No Known Allergies Allergy Verified 07/28/24 08:41 Active Medications: Current Medications Acetaminophen (Acetaminophen 325 Mg Tablet) 650 mg PO Q6H PRN PRN Reason: Pain, Mild (Pain Scale 1-3), fever or headache Calcium Carbonate (Calcium Carbonate 750 Mg Tab.Chew) 750 mg PO Q4H PRN PRN Reason: Heartburn Furosemide (Furosemide 40 Mg/4 Ml Vial) 40 mg IVPUSH BID@0900,1800 LEONORA; Protocol Magnesium Hydroxide (Milk Of Magnesia 30 Ml Oral.Susp) 30 ml PO DAILY PRN PRN Reason: Constipation Melatonin (Melatonin 3 Mg Tablet) 6 mg PO BEDTIME PRN PRN Reason: Insomnia Sodium Chloride (0.9 % Sodium Chloride Flush 3 Ml Syringe) 3 ml IVFLUSH QSHIFT [facility] Home Medications ?Medication ?Instructions ?Recorded ?Confirmed ?Last Taken ?Type levothyroxine 25 mcg tablet 25 mcg PO DAILY@0600 09/01/20 07/28/24 07/27/24 History atorvastatin 20 mg tablet 20 mg PO DAILY 04/26/21 07/28/24 07/27/24 History fluticasone fur. 200 mcg-umeclid 1 ea inhalation DAILY 03/26/23 07/28/24 07/27/24 History 62.5 mcg-vilant 25 mcg inhalat.powder (Trelegy Ellipta) albuterol sulfate 90 mcg/actuation 2 puff inhalation Q4-6H PRN 04/08/23 07/28/24 07/20/24 07:00 History aerosol inhaler (Ventolin HFA) breathing ferrous sulfate 325 mg (65 mg 325 mg PO DAILY@1600 04/22/23 07/28/24 07/20/24 07:00 History iron) tablet warfarin 2.5 mg tablet 7.5 mg PO DAILY@1800 01/03/24 07/28/24 07/20/24 07:00 History ketoconazole 2 % topical cream 1 appl topical BID PRN Itching 05/15/24 07/28/24 07/20/24 07:00 History escitalopram oxalate 5 mg tablet 5 mg PO DAILY@159907/20/24 07/28/24 07/20/24 07:00 History furosemide 40 mg tablet 40 mg PO DAILY@1600 07/20/24 07/28/24 07/20/24 07:00 History metoprolol tartrate 25 mg tablet 25 mg PO DAILY 07/28/24 07/28/24 07/27/24 History Physical Exam 2 Vital Signs: Vital Signs: Last Vital Signs Temp 98.1 F 07/28/24 08:37 Pulse 81 07/28/24 10:56 Resp 20 07/28/24 10:56 BP 107/57 L 07/28/24 10:56 Pulse Ox 92 07/28/24 10:56 O2 Del Method High Flow Nasal C annula 07/28/24 10:56 O2 Flow Rate 35 07/28/24 10:56 FiO2 40 07/28/24 10:56 Oxygen Flow Rate 4 07/28/24 08:37 BMI result Body Mass Index 31.1 GENERAL APPEARANCE: in no acute distress, pleasant. NECK: no carotid bruit, mild jugular venous distention. SKIN: no suspicious lesions, warm and dry. HEART: no murmurs, irregular rate and rhythm. LUNGS: Bilateral crackles. ABDOMEN: soft, nontender. EXTREMITIES: no edema. PERIPHERAL PULSES: equal. NEUROLOGIC: No gross deficits, AAO X 3 Objective Labs and Meds 07/28/24 09:30 07/28/24 10:27 Lab results: Laboratory Results - last 24 hr 07/28/24 07/28/24 09:30 10:27 WBC 10.0 RBC 5.38 Hgb 15.2 Hct 46.3 MCV 86.1 MCH 28.3 MCHC 32.8 RDW 15.1 Plt Count 181 MPV 12.4 H Immature Gran % (Auto) 0.3 Neut % (Auto) 86.4 H Lymph % (Auto) 6.4 L [place] % (Auto) 5.6 Eos % (Auto) 0.7 Baso % (Auto) 0.6 Lymph # (Auto) 0.6 L [place] # (Auto) 0.6 Eos # (Auto) 0.1 Baso # (Auto) 0.1 Abs Immat Gran (auto) 0.03 Absolute Neuts (auto) 8.7 H Absolute Nucleated RBC 0.000 Nucleated RBC % (auto) 0.0 PT 101.3 H D INR 8.7 H* D Sodium 137 Potassium 3.2 L Chloride 98 Carbon Dioxide 27 Anion Gap 15 BUN 16 Creatinine 0.85 Estim Creat Clear Calc 61.7 Estimated GFR > 60 Random Glucose 107 Calcium 9.1 D Magnesium 2.2 Total Bilirubin 0.8 Direct Bilirubin 0.4 AST 23 ALT 9 Alkaline Phosphatase 103 Troponin I High Sens 11.2 C-Reactive Protein 15.32 H B-Natriuretic Peptide 118 H Total Protein 8.7 H Albumin 3.4 L TSH 2.75 Urine Color Dark Yellow Urine Appearance Clear Urine pH 5.5 Ur Specific Boss 1.020 Urine Protein Trace Urine Glucose (UA) 500 H Urine Ketones Negative Urine Blood Negative Urine Nitrite Negative Ur Leukocyte Esterase Negative Influenza Type A (PCR) NEGATIVE Influenza Type B (PCR) NEGATIVE RSV RNA Qual (PCR) NEGATIVE SARS-CoV-2 RNA (RT-PCR) NEGATIVE Imaging Radiologist's impression: Impressions Chest X-Ray 07/28/24 08:32 IMPRESSION: Increasing patchy areas of airspace disease throughout the lungs. Differential diagnosis includes infectious etiologies versus edema. Electronically signed by: Freddie Wolf MD 07/28/2024 10:11 AM EDT Assessment and Plan (1) Atrial fibrillation with rapid ventricular response: Status: Acute (2) Respiratory failure: Status: Acute Plan [age] year female presenting with respiratory failure and atrial fibrillation. She has paroxysmal atrial fibrillation and was started on amiodarone recently and has been on 200 mg of amiodarone. Chest x-ray is showing bilateral infiltrates and concern is that she may have amiodarone toxicity. Other possibility is that she has infective process which may have progressed to ARDS. I do not think she is in bad fluid heart failure to explain the lung findings. She has mild JVD on examination. Can continue to diurese gently. Stop the amiodarone. Check CT chest and involve pulmonology. She may need high dose steroids if pulmonology agrees that this is related to amiodarone. Rate control for atrial fibrillation currently. Eventually cardioversion at some stage. She will be getting ablation for AFib as outpatient. Currently focus will be to improve her respiratory status. Thank you for allowing me to participate in the care of your patient. Please feel free to contact me if you have any questions. Procedures Date of Service Date of Service: 07/28/24
[2024-07-28 13:16] LABS: Erythrocyte Sedimentation Rate 64 MM/HR (0-20)
--- NOTE | 2024-07-28 13:24 | PC.NURSE ---
Pt to CT Scan.
[2024-07-28] MEDS: Acetaminophen 325 MG TABLET 650 MG PO ×2 (15:10→20:51)
[2024-07-28] MEDS: 0.9 % Sodium Chloride Flush 3 ML SYRINGE IVFLUSH (15:13)
[2024-07-28] MEDS: methylPREDNISolone Sod Succ 40 MG/ML VIAL IVPUSH (18:43)
[2024-07-28] MEDS: Pantoprazole Sodium 40 MG/10 ML VIAL IVPUSH (18:44)
[2024-07-28] MEDS: Ferrous Sulfate 324 MG TABLET.DR 325 MG PO (20:51)
[2024-07-28] MEDS: Metoprolol Tartrate 25 MG TABLET PO (20:52)
[2024-07-28] MEDS: Melatonin 3 MG TABLET 6 MG PO (22:24)
[2024-07-29] VITALS (13 sets, daily range): BP systolic 96–143; BP diastolic 51–83; PULSE 71–107; RESP 18–24; TEMP 36–36.7; O2SAT 4–95; BMI 32.2
[2024-07-29] MEDS: 0.9 % Sodium Chloride Flush 3 ML SYRINGE IVFLUSH ×2 (03:37→15:52)
[2024-07-29] MEDS: Levothyroxine Sodium 25 MCG TABLET PO (06:20)
[2024-07-29 06:34] LABS: MANUAL DIFF FLAG NO
[2024-07-29 06:36] LABS: Basophils Percent Auto 0.1 % (0-2); Hematocrit 39.4 % (37.0-47.0); Hemoglobin 13.1 g/dl (12.0-16.0); Imm Gran Abs Auto 0.04 X10*3/uL (0.00-0.03); Imm Gran Pct Auto 0.5 % (0.0-0.4); Lymphocytes Absolute Auto 0.7 X10*3/uL (1.2-4.9); Lymphocytes Percent Auto 7.8 % (20-40); Mean Corpuscular HGB Conc 33.2 g/dl (31.0-35.0); Mean Corpuscular Hemoglobin 27.8 pg (27.0-33.0); Mean Corpuscular Volume 83.5 fL (80.0-98.0); Mean Platelet Volume 11.5 fL (9.4-12.3); Monocytes Absolute Auto 0.4 X10*3/uL (0.1-1.2); Monocytes Percent Auto 4.4 % (2-11); Neutrophils Absolute Auto 7.6 x10*3/uL (2.0-8.3); Neutrophils Percent Auto 87.2 % (45-73); Platelet Count 209 X10*3/uL (160-400); Red Blood Count 4.72 X10*6/uL (4.20-5.50); Red Cell Distribution Width 14.7 % (11.0-16.0); White Blood Count 8.7 X10*3/uL (4.8-10.8)
[2024-07-29 06:46] LABS: Prothrombin Time 160.9 SEC (10.9-12.4)
[2024-07-29 06:52] LABS: Anion Gap 16 (12-20); Blood Urea Nitrogen 24 mg/dL (9-16); Calcium 9.3 mg/dL (8.4-10.2); Carbon Dioxide 27 mmol/L (22-29); Chloride 101 mmol/L (96-108); Creatinine Clr Calc Pharmacy 65.5; Estimated Glomerular Filt Rate > 60; Glucose Random 123 mg/dL (60-115); Potassium 3.6 mmol/L (3.3-5.1); Sodium 140 mmol/L (135-145)
[2024-07-29 06:53] LABS: INTERNATIONAL NORM RATIO 13.8 (0.9-1.1)
[2024-07-29] MEDS: Pantoprazole Sodium 40 MG/10 ML VIAL IVPUSH (06:55)
[2024-07-29] MEDS: Acetaminophen 325 MG TABLET 650 MG PO ×2 (07:00→20:33)
--- NOTE | 2024-07-29 07:00 | CA_ITS ---
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 There is moderately increased left ventricular wall thickness. The visually estimated ejection fraction is between 60-65%. - Normal right ventricular cavity size. There is borderline right ventricular systolic function. - The left atrium is severely dilated. - A bioprosthetic aortic valve is present. The prosthetic aortic valve appears to be functioning normally. The mean gradient is 11 mmHg. There is no aortic valve regurgitation. - A mechanical prosthetic mitral valve is present. The prosthetic mitral valve appears to be functioning normally. There is no mitral valve regurgitation. There is no mitral valve stenosis. - There is mild dilatation of the ascending aorta measuring 3.60 cm. Findings Left Ventricle Normal left ventricular size and systolic function. There is moderately increased left ventricular wall thickness. The visually estimated ejection fraction is between 60-65%. There is no evidence of regional wall motion abnormalities. Diastolic function is indeterminate on the basis of available data. Right Ventricle Normal right ventricular cavity size. There is borderline right ventricular systolic function. Atria The left atrium is severely dilated. Aortic Valve A bioprosthetic aortic valve is present. The prosthetic aortic valve appears to be functioning normally. The mean gradient is 11 mmHg. There is no aortic valve regurgitation. Mitral Valve A mechanical prosthetic mitral valve is present. The prosthetic mitral valve appears to be functioning normally. There is no mitral valve regurgitation. There is no mitral valve stenosis. Pulmonic Valve The pulmonic valve is likely normal. Tricuspid Valve There is no tricuspid valve regurgitation. Normal right atrial pressure. There is no evidence of pulmonary hypertension. Great Vessels There is mild dilatation of the ascending aorta measuring 3.60 cm. Venous The inferior vena cava is normal in size and collapses greater than 50% with inspiration. Pericardium/Pleural There is no evidence of pericardial effusion. Prior Study Comparison No significant change compared to prior study dated: 05/07/2024. Measurements 2D Linear Measurements IVSd: 1.44 0.6-0.9/0.6-1.0 cm LVIDd: 3.36 3.9-5.3/4.2-5.9 cm LVIDd Index: 1.89 2.4-3.2/2.2-3.1 cm/m2 LVIDs: 2.29 2.0-3.6 cm LVPWd: 1.32 0.7-1.1 cm LV Mass: 198.94 67-162/88-224 g LV Mass Index: 111.76 43-95/49-115 g/m2 LVOT Diam: 2.00 3.0+(-)1.3 cm Mitral Valve MV VTI: 0.24 MV Pk Vern: 1.25 MV Mn Vern: 0.85 MV Pk Grad: 6.00 MV Mn Grad: 4.00 MV Pk E: 1.40 MV Decel Time: 217.00 E'Lateral: 9.03 E'Medial: 4.35 E/E' Med: 32.20 E/E' Lat: 15.50 PHT: 63.00 MVA PHT: 3.49 MVA Continuity: 3.25 Decel [place]: 6.44 Aortic Valve AoV Pk Vern: 2.31 AoV Mn Vern: 1.50 AoV VTI: 0.39 AoV Pk Grad: 21.00 Aov Mn Grad: 11.00 RADHA Cont.VTI: 1.96 LVOT LVOT Pk Vern: 1.25 LVOT Mn Vern: 0.85 LVOT VTI: 0.24 LVOT Pk Grad: 6.00 LVOT Mn Grad: 4.00 LVOT Diam: 2.00 LVOT Area: 3.14 Diastolic Function MV Pk E: 1.40 E'Medial: 4.35 E/E' Med: 32.20 E' Laterial: 9.03 E/E' Lat: 15.50 Right Ventricle TAPSE (mm): 17.00 TVS' Vern: 9.00 Tricuspid Valve TV Pk Vern: 1.11 TV Mn Vern: 0.61 TV Pk Grad: 5.00 TV Mn Grad: 2.00 TR Pk Vern: 1.80 TR Pk Grad: 13.00 RA Press: 3.00 RVSP: 16.00 Great Vessels Aorta Sinus of Valsalva: 3.70 2.0-3.5 cm Ao Asc: 3.60 2.1-3.4 cm Pulmonary Valve PV Pk Vern: 1.40 Peak PV Grad: 8.00 Updated in Other Vendor System with Status of Final López Lion MD electronically signed on 07/29/2024 11:42:06 AM with status of Final
[2024-07-29] MEDS: Albuterol/Iprat 2.5/0.5MG 3 ML AMPUL.NEB INHALE ×4 (07:10→18:41)
[2024-07-29] MEDS: Empagliflozin 10 MG TABLET PO (08:06)
[2024-07-29] MEDS: Atorvastatin Calcium 20 MG TABLET PO (08:06)
[2024-07-29] MEDS: methylPREDNISolone Sod Succ 125 MG/2 ML VIAL IVPUSH (08:17)
[2024-07-29] MEDS: Phytonadione (Vit K1) 10 MG in 0.9 % Sodium Chloride 50 ML 51 MG IV (08:22)
--- NOTE | 2024-07-29 08:41 | PM.CNPUL ---
History of Present Illness History of Present Illness Consult date: 07/29/24 Chief complaint: PAF, resp failure Narrative: 71-year-old lady with underlying COPD followed by Dr. Brumfield, also AFib previously amiodarone, then discontinued and recently restarted, also recently started on Ozempic, underlying congestive failure with diastolic dysfunction and mechanical mitral valve admitted 07/28/2024 with worsening shortness of breath and acute hypoxic respiratory failure requiring high-flow nasal cannula support. CT chest is demonstrating peribronchovascular infiltrates bilaterally. She was started on systemic glucocorticoids with some improvement in her symptoms. Review of Systems Constitutional: Constitutional: Denies daytime sleepiness, Denies excessive sweating, Denies fatigue, Denies fever(s), Denies lethargy, Denies malaise, Denies night sweats, Denies snoring and Denies weight loss Eyes: Eyes: Denies blurry vision and Denies itchy eyes ENT: Denies nasal congestion, Denies post nasal drip, Denies sinus pain, Denies sinus pressure and Denies other ( Thrush) Cardiovascular: Cardiovascular: Denies chest pain, Denies pedal edema, Reports dyspnea, Denies orthopnea and Denies paroxysmal nocturnal dyspnea Respiratory: Respiratory: Denies cough, Denies hemoptysis, Denies excessive phlegm production, Reports dyspnea, Denies snoring and Denies wheezing Gastrointestinal: Gastrointestinal: Denies abdominal pain and Denies heartburn Musculoskeletal: Musculoskeletal: Denies myalgias, Denies arthralgias and Denies joint swelling Integumentary/Breasts: Skin/Breast: Denies rash Neurologic: Denies memory loss and Denies seizure-like activity Psychiatric: Psychiatric: Denies abnormal sleep pattern, Denies anxiety and Denies memory loss Endocrine: Endocrine: Denies excessive sweating, Denies fatigue and Denies heat intolerance Hematologic/Lymphatic: Hematologic/Lymphatic: Denies easy bruising Allergic/Immunologic: Allergic/Immunologic: Denies itchy eyes, Denies seasonal rhinorrhea and Denies wheezing PMFSH Past Medical History Medical History Implantable loop recorder present Persistent atrial fibrillation PAF (paroxysmal atrial fibrillation) Increasing shortness of breath Encounter for interrogation of cardiac pacemaker Subtherapeutic international normalized ratio (INR) Heart failure Cardiac pacemaker Nocturnal hypoxemia (~10/19/23) Sinus pause History of cardioversion Interstitial lung disease COPD (chronic obstructive pulmonary disease) Pulmonary nodule Atrial flutter with rapid ventricular response COPD (chronic obstructive pulmonary disease) Exercise hypoxemia Interstitial lung disease Bronchitis due to Staphylococcus aureus History of transcatheter aortic valve replacement (TAVR) Acute diastolic CHF (congestive heart failure) Paroxysmal atrial fibrillation Abnormal EKG Hypoxia Interstitial lung disease Anemia Atrial flutter Obesity (HFpEF) heart failure with preserved ejection fraction Aortic stenosis Current use of anticoagulant therapy Family History Family History Father No problems noted. Mother CVD (cardiovascular disease) Surgical History Surgical History Status post transcatheter aortic valve replacement Hx of mitral valve replacement (~2004) Status post placement of cardiac pacemaker H/O heart surgery History of sleeve gastrectomy (~2017) Hx of transesophageal echocardiography (SHELIA) for monitoring (~2015) Hx of section Social History Social History Household Members: Children Housing: House Do you presently have visiting nurse or other home services: No Alcohol intake: never Patient Tobacco Use Status: Former Tobacco user Tobacco use type: Cigarette Years Smoked: 29 e-Cigarette/Vaping Use: Never Used Second Hand Smoke Exposure: No Advance Directives: Yes Advance Directives on File: Yes Advance Directives Date on File: 12/18/22 Nutrition Risks: No Nutritional Risk service: No Current occupational status: disabled Meds Allergies Allergy/AdvReac Type Severity Reaction Status Date / Time No Known Allergies Allergy Verified 07/28/24 08:41 Active Medications: Current Medications Acetaminophen (Acetaminophen 325 Mg Tablet) 650 mg PO Q6H PRN PRN Reason: Pain, Mild (Pain Scale 1-3), fever or headache Last Admin: 07/29/24 07:00 Dose: 650 mg Albuterol Sulfate (Albuterol Sulfate (0.083%) 2.5 Mg/3 Ml Vial.Neb) 2.5 mg INHALE Q2H PRN PRN Reason: Shortness of Breath/Wheezing Albuterol/Ipratropium (Albuterol/Iprat 2.5/0.5mg 3 Ml Ampul.Neb) 3 ml INHALE RQ4H WHILE AWAKE LEONORA Last Admin: 07/29/24 07:10 Dose: 3 ml Atorvastatin Calcium (Atorvastatin Calcium 20 Mg Tablet) 20 mg PO DAILY [facility] Last Admin: 07/29/24 08:06 Dose: 20 mg Calcium Carbonate (Calcium Carbonate 750 Mg Tab.Chew) 750 mg PO Q4H PRN PRN Reason: Heartburn Cyanocobalamin (Cyanocobalamin (Vitamin B-12) 500 Mcg Tablet) 500 mcg PO DAILY [facility] Empagliflozin (Empagliflozin 10 Mg Tablet) 10 mg PO DAILY [facility] Last Admin: 07/29/24 08:06 Dose: 10 mg Escitalopram Oxalate (Escitalopram Oxalate 5 Mg Tablet) 5 mg PO DAILY@1600 [facility] Last Admin: 07/28/24 20:53 Dose: 5 mg Ferrous Sulfate (Ferrous Sulfate 324 Mg Tablet.Dr) 325 mg PO DAILY@1600 [facility] Last Admin: 07/28/24 20:51 Dose: 324 mg Fluticasone/Umeclidinium/Vilanterol (Fluticasone/Umeclidinium/Vilanterol 200/62.5/25 Blst.W.Dev) 1 puff INHALE RDAILY [facility] Last Admin: 07/29/24 08:14 Dose: Not Given Furosemide (Furosemide 40 Mg Tablet) 40 mg PO DAILY@1600 [facility]; Protocol Levothyroxine Sodium (Levothyroxine Sodium 25 Mcg Tablet) 25 mcg PO DAILY@0600 [facility] Last Admin: 07/29/24 06:20 Dose: 25 mcg Magnesium Hydroxide (Milk Of Magnesia 30 Ml Oral.Susp) 30 ml PO DAILY PRN PRN Reason: Constipation Melatonin (Melatonin 3 Mg Tablet) 6 mg PO BEDTIME PRN PRN Reason: Insomnia Last Admin: 07/28/24 22:24 Dose: 6 mg Methylprednisolone Sodium Succinate (Methylprednisolone Sod Succ 125 Mg/2 Ml Vial) 60 mg IVPUSH Q6H [facility] Last Admin: 07/29/24 08:17 Dose: Not Given Metoprolol Tartrate (Metoprolol Tartrate 25 Mg Tablet) 25 mg PO DAILY@1600 [facility]; Protocol Last Admin: 07/28/24 20:52 Dose: 25 mg Pantoprazole Sodium (Pantoprazole Sodium 40 Mg/10 Ml Vial) 40 mg IVPUSH DAILY@0630 [facility] Last Admin: 07/29/24 06:55 Dose: 40 mg Sodium Chloride (0.9 % Sodium Chloride Flush 3 Ml Syringe) 3 ml IVFLUSH QSHIFT [facility] Last Admin: 07/29/24 08:26 Dose: Not Given Home Medications ?Medication ?Instructions ?Recorded ?Confirmed ?Last Taken ?Type levothyroxine 25 mcg tablet 25 mcg PO DAILY@0600 09/01/20 07/28/24 07/27/24 History atorvastatin 20 mg tablet 20 mg PO DAILY 04/26/21 07/28/24 07/27/24 History fluticasone fur. 200 mcg-umeclid 1 ea inhalation DAILY 03/26/23 07/28/24 07/27/24 History 62.5 mcg-vilant 25 mcg inhalat.powder (Trelegy Ellipta) albuterol sulfate 90 mcg/actuation 2 puff inhalation Q4-6H PRN 04/08/23 07/28/24 07/20/24 07:00 History aerosol inhaler (Ventolin HFA) breathing ferrous sulfate 325 mg (65 mg 325 mg PO DAILY@1600 04/22/23 07/28/24 07/20/24 07:00 History iron) tablet warfarin 2.5 mg tablet 7.5 mg PO DAILY@1800 01/03/24 07/28/24 07/20/24 07:00 History ketoconazole 2 % topical cream 1 appl topical BID PRN Itching 05/15/24 07/28/24 07/20/24 07:00 History escitalopram oxalate 5 mg tablet 5 mg PO DAILY@159907/20/24 07/28/24 07/20/24 07:00 History furosemide 40 mg tablet 40 mg PO DAILY@1600 07/20/24 07/28/24 07/20/24 07:00 History metoprolol tartrate 25 mg tablet 25 mg PO DAILY 07/28/24 07/28/24 07/27/24 History Physical Exam Vital Signs: Vital Signs: Last Vital Signs Temp 97.6 F 07/29/24 08:00 Pulse 91 07/29/24 08:00 Resp 20 07/29/24 08:00 BP 96/51 L 07/29/24 08:00 Pulse Ox 4 L 07/29/24 08:00 O2 Del Method Nasal Cannula 07/29/24 08:00 O2 Flow Rate 35 07/28/24 16:29 FiO2 40 07/28/24 16:29 Oxygen Flow Rate 4 07/28/24 08:37 BMI result Body Mass Index 31.1 Const: General: no acute distress and alert Nutritional Appearance: not obese Orientation/consciousness: Other orientation findings ( oriented) HEENT: Head: Yes atraumatic Eyes: General: appearance normal, both eyes and all related structures Sclerae: sclerae normal EOM: EOMs intact bilaterally Neck: Neck: Yes supple Lymphatic: no lymphadenopathy noted Resp: Effort & Inspection: normal respiratory effort and no use of accessory muscles Auscultation: clear to auscultation bilaterally Cardio: Rate: regular rate Rhythm: regular rhythm Heart sounds: no gallops, no murmurs and no rubs Skin: General skin exam: other ( warm) Extrem: General: No clubbing, No cyanosis and No edema Results Laboratory Findings 07/29/24 06:09 07/29/24 06:09 ABG, PT/INR, D-dimer: PT/INR, D-dimer PT 160.9 SEC (10.9-12.4) H D 07/29/24 06:09 INR 13.8 (0.9-1.1) H* D 07/29/24 06:09 Abnormal lab findings: Abnormal Labs 07/28/24 07/28/24 07/29/24 09:30 10:27 06:09 MPV 12.4 H Immature Gran % (Auto) 0.5 H Neut % (Auto) 86.4 H 87.2 H Lymph % (Auto) 6.4 L 7.8 L Lymph # (Auto) 0.6 L 0.7 L Abs Immat Gran (auto) 0.04 H Absolute Neuts (auto) 8.7 H ESR 64 H PT 101.3 H D 160.9 H D INR 8.7 H* D 13.8 H* D Potassium 3.2 L BUN 24 H Random Glucose 123 H C-Reactive Protein 15.32 H B-Natriuretic Peptide 118 H Total Protein 8.7 H Albumin 3.4 L Urine Glucose (UA) 500 H Assessment and Plan (1) Acute respiratory failure with hypoxia: Status: Acute (2) Abnormal CT scan, chest: Status: Acute Plan Impression: 68-year-old lady with underlying COPD admitted with acute hypoxic respiratory failure and abnormal CT chest with bilateral peribronchovascular infiltrates. CT findings unless likely secondary to chronic amiodarone toxicity, but appear to represent leaking endovascular epithelium with likely etiology being acute drug reaction. Recommendations: Agree with empiric treatment with medium to high-dose systemic glucocorticoids, consider initial daily dose equivalent of 250 mg of Solu-Medrol in 24 hours and reassess symptoms in 24-48 hours. Procedures Date of Service Date of Service: 07/29/24
--- NOTE | 2024-07-29 09:28 | PC.NURSE ---
patient upset and yelling at staff when they come into room, patient can be very demanding about needs. listened to patient express frustrations and educated patient on needs of other patients in ED and that staff is occupied with other patients. patient then asked this RN to leave room. master motorcycle technician in room now with patient
--- NOTE | 2024-07-29 10:30 | PC.NURSE ---
patient moved into private room for comfort, patient more relaxed now. patient is calm and cooperative VSS
--- NOTE | 2024-07-29 10:35 | MHC.CM.PN ---
IMM 07/29/24, Pt lives with dtr and grand dtr, he dtr provides home care services for her. For DME, she has home O2 provided by [facility]. HCP is on file and confirmed: her daughter, Raul. PCP confirmed: Daniela Chopra. Pt.'s car is in lot for transport home. DCP: home, resume services. CM to follow and assist with DC plan.
[2024-07-29] MEDS: Cyanocobalamin (Vitamin B-12) 500 MCG TABLET PO (10:47)
--- NOTE | 2024-07-29 11:06 | PM.PNCARD ---
Subjective Subjective Date of Service: 07/29/24 Interval history: Seen examined at bedside. Clinically improving after starting steroids. It is felt that she had hypersensitivity reaction either to amiodarone or Ozempic. Both are on hold at this stage. Physical Exam Vital Signs: Last Vital Signs Temp 97.6 F 07/29/24 10:36 Pulse 89 07/29/24 10:36 Resp 20 07/29/24 10:36 BP 111/55 L 07/29/24 10:36 Pulse Ox 91 L 07/29/24 10:36 O2 Del Method Nasal Cannula 07/29/24 10:36 O2 Flow Rate 4 07/29/24 10:36 FiO2 40 07/28/24 16:29 Oxygen Flow Rate 4 07/28/24 08:37 BMI result Body Mass Index 31.1 GENERAL APPEARANCE: in no acute distress, pleasant. NECK: no carotid bruit, mild jugular venous distention. SKIN: no suspicious lesions, warm and dry. HEART: no murmurs, irregular rate and rhythm. LUNGS: Bilateral crackles. ABDOMEN: soft, nontender. EXTREMITIES: no edema. PERIPHERAL PULSES: equal. NEUROLOGIC: No gross deficits, AAO X 3 Objective Labs and Meds 07/29/24 06:09 07/29/24 06:09 Lab results: Laboratory Results - last 24 hr 07/28/24 07/28/24 07/29/24 09:30 10:27 06:09 WBC 8.7 RBC 4.72 Hgb 13.1 Hct 39.4 MCV 83.5 MCH 27.8 MCHC 33.2 RDW 14.7 Plt Count 209 MPV 11.5 Immature Gran % (Auto) 0.5 H Neut % (Auto) 87.2 H Lymph % (Auto) 7.8 L Kleberg % (Auto) 4.4 Eos % (Auto) 0.0 Baso % (Auto) 0.1 Lymph # (Auto) 0.7 L [place] # (Auto) 0.4 Eos # (Auto) 0.0 Baso # (Auto) 0.0 Abs Immat Gran (auto) 0.04 H Absolute Neuts (auto) 7.6 Absolute Nucleated RBC 0.000 Nucleated RBC % (auto) 0.0 ESR 64 H PT 160.9 H D INR 13.8 H* D Sodium 140 Potassium 3.6 Chloride 101 Carbon Dioxide 27 Anion Gap 16 BUN 24 H Creatinine 0.80 Estim Creat Clear Calc 65.5 Estimated GFR > 60 Random Glucose 123 H Calcium 9.3 TSH 2.75 Imaging Radiologist's impression: Impressions Chest CT 07/28/24 13:19 IMPRESSION: Extensive interstitial and consolidative alveolar infiltrates predominantly in a peribronchovascular distribution. Scattered groundglass densities at the periphery of these infiltrates. Mediastinal adenopathy. These findings appear new compared with June 05, 2024. No pleural effusion. Consider pulmonology consultation. Additional findings, as above. Electronically signed by: Eric Cook MD 07/28/2024 02:46 PM EDT RP Progress Note: A&P Assessment and plan (1) PAF (paroxysmal atrial fibrillation): Status: Acute (2) Acute respiratory failure with hypoxia: Status: Acute Plan Pleasant 68 year female with mechanical mitral valve and transcatheter aortic valve replacement in the past. She has paroxysmal atrial fibrillation which is difficult to manage and she was on amiodarone recently and was being planned to have cardioversion done. She presented with shortness of breath and chest x-ray risk concern for bilateral infiltrates and potential drug toxicity as she was on amiodarone. As per my discussion with pulmonology, she has hypersensitivity reaction based on CT findings and this can be related to recent Ozempic use versus amiodarone. Both are currently on hold. She is improving with steroids. Continue oral diuretics and rest of her medications. She was supratherapeutic with INR of 13 and received vitamin K. mechanical mitral valve is high-risk for thrombosis and we need to watch the INR closely. If INR close to 2 or below I think she should get Lovenox at that stage. We will follow along with you. Thank you for allowing me to participate in the care of your patient. Please feel free to contact me if you have any questions. Time Spent With Patient Time: Total time managing care of this patient today ____ minutes. Progress Note: Quality Stroke Does the patient have a stroke diagnosis?: No Procedures Date of Service Date of Service: 07/29/24
--- NOTE | 2024-07-29 13:03 | HO.PM.IMPN ---
Subjective Subjective Date of Service: 07/29/24 Interval History: No acute events overnight. Breathing comfortably however high O2 requirement. Review of Systems Denies chest pain Admits to shortness of breath with minimal movement Denies nausea and volume diarrhea Denies fever chills Physical Exam Vital Signs: Vital Signs: Last Vital Signs Temp 98.1 F 07/29/24 12:00 Pulse 107 H 07/29/24 12:00 Resp 21 H 07/29/24 12:00 BP 128/62 07/29/24 12:00 Pulse Ox 95 07/29/24 12:00 O2 Del Method Nasal Cannula 07/29/24 12:00 O2 Flow Rate 4 07/29/24 12:00 FiO2 40 07/28/24 16:29 Oxygen Flow Rate 4 07/28/24 08:37 BMI result Body Mass Index 31.1 Const: Other: Awake alert oriented x3 in no acute distress Chest: Other: Pacemaker palpable left anterior chest Resp: Other: End inspiratory crackles throughout Cardio: Other: Irregularly irregular. No S4; positive S1-S2; no S3 murmurs rubs or gallops GI: Other: Soft nontender nondistended normoactive bowel sounds Neuro: Other: Cranial nerves 2-12 grossly intact as tested. Motor 5/5 all extremities as tested. Sensation intact. Cognition appropriate. Gait not observed Extrem: Other: No edema bilaterally Objective Data Active Medications Acetaminophen (Acetaminophen 325 Mg Tablet) 650 mg PO Q6H PRN PRN Reason: Pain, Mild (Pain Scale 1-3), fever or headache Last Admin: 07/29/24 07:00 Dose: 650 mg Documented By: ROBER Albuterol Sulfate (Albuterol Sulfate (0.083%) 2.5 Mg/3 Ml Vial.Neb) 2.5 mg INHALE Q2H PRN PRN Reason: Shortness of Breath/Wheezing Albuterol/Ipratropium (Albuterol/Iprat 2.5/0.5mg 3 Ml Ampul.Neb) 3 ml INHALE RQ4H WHILE AWAKE [facility] Last Admin: 07/29/24 11:09 Dose: 3 ml Documented By: KITTY Atorvastatin Calcium (Atorvastatin Calcium 20 Mg Tablet) 20 mg PO DAILY [facility] Last Admin: 07/29/24 08:06 Dose: 20 mg Documented By: EDY Calcium Carbonate (Calcium Carbonate 750 Mg Tab.Chew) 750 mg PO Q4H PRN PRN Reason: Heartburn Cyanocobalamin (Cyanocobalamin (Vitamin B-12) 500 Mcg Tablet) 500 mcg PO DAILY [facility] Last Admin: 07/29/24 10:47 Dose: 500 mcg Documented By: EDY Empagliflozin (Empagliflozin 10 Mg Tablet) 10 mg PO DAILY [facility] Last Admin: 07/29/24 08:06 Dose: 10 mg Documented By: EDY Escitalopram Oxalate (Escitalopram Oxalate 5 Mg Tablet) 5 mg PO DAILY@1600 [facility] Last Admin: 07/28/24 20:53 Dose: 5 mg Documented By: LAURA Ferrous Sulfate (Ferrous Sulfate 324 Mg Tablet.Dr) 325 mg PO DAILY@1600 [facility] Last Admin: 07/28/24 20:51 Dose: 324 mg Documented By: LAURA Comments: cannot give 1mg of 324mg tablet. Given ONE 324mg tablet. Fluticasone/Umeclidinium/Vilanterol (Fluticasone/Umeclidinium/Vilanterol 200/62.5/25 Blst.W.Dev) 1 puff INHALE RDAILY [facility] Last Admin: 07/29/24 08:14 Dose: Not Given Documented By: KITTY Non-Admin Reason: Med Not Available Furosemide (Furosemide 40 Mg Tablet) 40 mg PO DAILY@1600 [facility]; Protocol Levothyroxine Sodium (Levothyroxine Sodium 25 Mcg Tablet) 25 mcg PO DAILY@0600 [facility] Last Admin: 07/29/24 06:20 Dose: 25 mcg Documented By: ROBER Magnesium Hydroxide (Milk Of Magnesia 30 Ml Oral.Susp) 30 ml PO DAILY PRN PRN Reason: Constipation Melatonin (Melatonin 3 Mg Tablet) 6 mg PO BEDTIME PRN PRN Reason: Insomnia Last Admin: 07/28/24 22:24 Dose: 6 mg Documented By: LAURA Methylprednisolone Sodium Succinate (Methylprednisolone Sod Succ 125 Mg/2 Ml Vial) 60 mg IVPUSH Q6H [facility] Last Admin: 07/29/24 08:17 Dose: Not Given Documented By: EDY Non-Admin Reason: Physician Approved Metoprolol Tartrate (Metoprolol Tartrate 25 Mg Tablet) 25 mg PO DAILY@1600 [facility]; Protocol Last Admin: 07/28/24 20:52 Dose: 25 mg Documented By: LAURA Pantoprazole Sodium (Pantoprazole Sodium 40 Mg/10 Ml Vial) 40 mg IVPUSH DAILY@0630 [facility] Last Admin: 07/29/24 06:55 Dose: 40 mg Documented By: ROBER Sodium Chloride (0.9 % Sodium Chloride Flush 3 Ml Syringe) 3 ml IVFLUSH QSHIFT [facility] Last Admin: 07/29/24 08:26 Dose: Not Given Documented By: EDY Non-Admin Reason: IV Running Labs 07/29/24 06:09 07/29/24 06:09 Labs: Laboratory Results - last 24 hr 07/28/24 07/29/24 09:30 06:09 MCV 83.5 MCH 27.8 MCHC 33.2 RDW 14.7 Plt Count 209 MPV 11.5 Immature Gran % (Auto) 0.5 H Neut % (Auto) 87.2 H Lymph % (Auto) 7.8 L [place] % (Auto) 4.4 Eos % (Auto) 0.0 Baso % (Auto) 0.1 Lymph # (Auto) 0.7 L [place] # (Auto) 0.4 Eos # (Auto) 0.0 Baso # (Auto) 0.0 Abs Immat Gran (auto) 0.04 H Absolute Neuts (auto) 7.6 Absolute Nucleated RBC 0.000 Nucleated RBC % (auto) 0.0 ESR 64 H PT 160.9 H D INR 13.8 H* D Anion Gap 16 Estim Creat Clear Calc 65.5 Estimated GFR > 60 Random Glucose 123 H Calcium 9.3 Assessment and Plan (1) Acute respiratory failure with hypoxia: Status: Acute (2) Atrial fibrillation with rapid ventricular response: Status: Acute (3) Hyperprothrombinemia: Status: Acute Plan 67-year-old female with history of atrial fibrillation/flutter anticoagulated with Coumadin, heart failure with preserved ejection fraction, aortic stenosis s/p TAVR procedure in 08/2022, s/p St. Alex valve, history of amiodarone toxicity, interstitial lung disease and COPD with chronic hypoxemic respiratory failure, pacer maker in place, and mood disorder who is obese and recently started ozempic 2 weeks ago for weight loss admitted acute hypoxemic respiratory failure secondary to likely hypersensitivity reaction question Ozempic less likely amiodarone 1. Hypersensitivity reaction -Solu-Medrol 125 IV push given this a.m.. We will continue 60 mg q.6 hours for at least the next 24 hours. If good response would continue 48 hours -echo reviewed; no evidence of right heart strain. . . No evidence of pulmonary hypertension -would avoid Ozempic going forward -pulmonary to evaluate as outpatient with regards to amiodarone 2.Paroxysmal atrial fibrillation -acceptable control at current time -avoid amiodarone -if rate becomes difficult to control; cardiology to re-evaluate 3.Acute hypokalemia -responded to repletion -follow renals/divalents 4.COPD with chronic hypoxemic respiratory failure -stable and well compensated at this time -continue outpatient therapies 5.HTN -acceptable at this time on beta-ashok -adjust as indicated 6. 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 at 13.8 -vitamin K 10 mg IV given -follow serial INRs; if INR down to 2.0 would initiate full-dose Lovenox 1 milligram/kilogram Q12h. Elevated INR Full code Patient requires ongoing hospitalization for IV steroids and specialty consultation regarding pulmonary hypersensitivity reaction Quality Stroke Does the patient have a stroke diagnosis?: No VTE Prior VTE?: No VTE Risk Level:: Medical - moderate - high VTE Device Contraindication: Treatment Not Indicated VTE Drug Contraindication: N/A - Med Ordered
[2024-07-29] MEDS: methylPREDNISolone Sod Succ 125 MG/2 ML VIAL 60 MG IVPUSH ×2 (13:20→18:49)
[2024-07-29] MEDS: Furosemide 40 MG TABLET PO (15:52)
[2024-07-29] MEDS: Metoprolol Tartrate 25 MG TABLET PO (15:59)
[2024-07-29] MEDS: Ferrous Sulfate 324 MG TABLET.DR 325 MG PO (16:00)
[2024-07-29] MEDS: Escitalopram Oxalate 5 MG TABLET PO (16:02)
[2024-07-30] VITALS (10 sets, daily range): BP systolic 98–122; BP diastolic 55–83; PULSE 75–105; RESP 16–20; TEMP 36–36.6; O2SAT 88–97
--- NOTE | 2024-07-30 | ECG_ITS ---
Test Reason : rhythm check Blood Pressure : / mmHG Vent. Rate : 103 BPM Atrial Rate : 000 BPM P-R Int : 000 ms QRS Dur : 116 ms QT Int : 362 ms P-R-T Axes : 000 021 -11 degrees QTc Int : 474 ms Sinus tachycardia with 1st degree A-V block Minimal voltage criteria for LVH, may be normal variant ( Bebo product ) Abnormal ECG When compared with ECG of 28-JUL-2024 08:38, Sinus tachycardia has replaced Atrial fibrillation with occasional Electronic ventricular pacemaker Referred By: Rose Garcia Electronically Signed By:MEL JERONIMO
[2024-07-30] MEDS: methylPREDNISolone Sod Succ 125 MG/2 ML VIAL 60 MG IVPUSH ×4 (03:16→19:45)
[2024-07-30] MEDS: Pantoprazole Sodium 40 MG/10 ML VIAL IVPUSH (06:21)
[2024-07-30] MEDS: Levothyroxine Sodium 25 MCG TABLET PO (06:21)
[2024-07-30 07:03] LABS: Basophils Percent Auto 0.1 % (0-2); Hematocrit 42.3 % (37.0-47.0); Hemoglobin 13.5 g/dl (12.0-16.0); Imm Gran Abs Auto 0.07 X10*3/uL (0.00-0.03); Imm Gran Pct Auto 0.5 % (0.0-0.4); Lymphocytes Absolute Auto 0.8 X10*3/uL (1.2-4.9); Lymphocytes Percent Auto 5.5 % (20-40); MANUAL DIFF FLAG SCAN; Mean Corpuscular HGB Conc 31.9 g/dl (31.0-35.0); Mean Corpuscular Hemoglobin 27.4 pg (27.0-33.0); Mean Platelet Volume 11.3 fL (9.4-12.3); Monocytes Absolute Auto 0.3 X10*3/uL (0.1-1.2); Monocytes Percent Auto 2.2 % (2-11); Neutrophils Absolute Auto 13.4 x10*3/uL (2.0-8.3); Neutrophils Percent Auto 91.7 % (45-73); Platelet Count 244 X10*3/uL (160-400); Red Blood Count 4.92 X10*6/uL (4.20-5.50); Red Cell Distribution Width 15.1 % (11.0-16.0); SCAN SMEAR FLAG 1; White Blood Count 14.6 X10*3/uL (4.8-10.8)
[2024-07-30 07:06] LABS: Alanine Aminotransferase 11 U/L (0-31); Albumin Level 3.4 g/dL (3.5-5.0); Alkaline Phosphatase 95 U/L (39-117); Anion Gap 14 (12-20); Aspartate Amino Transferase 22 U/L (5-31); Bilirubin Total 0.5 mg/dL (0.0-1.0); Blood Urea Nitrogen 24 mg/dL (9-16); Calcium 9.7 mg/dL (8.4-10.2); Carbon Dioxide 28 mmol/L (22-29); Chloride 103 mmol/L (96-108); Creatinine Clr Calc Pharmacy 69.4; Estimated Glomerular Filt Rate > 60; Glucose Fasting 123 mg/dL (60-99); Potassium 3.7 mmol/L (3.3-5.1); Sodium 141 mmol/L (135-145); Total Protein 8.5 g/dL (6.5-8.0)
[2024-07-30 07:13] LABS: INTERNATIONAL NORM RATIO 1.2 (0.9-1.1); Prothrombin Time 14.3 SEC (10.9-12.4)
[2024-07-30] MEDS: Albuterol/Iprat 2.5/0.5MG 3 ML AMPUL.NEB INHALE ×4 (07:47→18:39)
[2024-07-30 07:50] LABS: SLIDE REVIEW VERIFIED
[2024-07-30] MEDS: 0.9 % Sodium Chloride Flush 3 ML SYRINGE IVFLUSH ×3 (08:50→19:46)
[2024-07-30] MEDS: Enoxaparin Sodium 80 MG/0.8 ML SYRINGE SUBCUT ×2 (08:50→19:44)
[2024-07-30] MEDS: Cyanocobalamin (Vitamin B-12) 500 MCG TABLET PO (08:51)
[2024-07-30] MEDS: Atorvastatin Calcium 20 MG TABLET PO (08:51)
[2024-07-30] MEDS: Empagliflozin 10 MG TABLET PO (08:51)
[2024-07-30] MEDS: Fluticasone/Umeclidinium/Vilanterol 200/62.5/25 BLST.W.DEV 1 PUFF INHALE (10:48)
[2024-07-30] MEDS: Acetaminophen 325 MG TABLET 650 MG PO (13:45)
--- NOTE | 2024-07-30 15:20 | HO.PM.IMPN ---
Subjective Subjective Date of Service: 07/30/24 Interval History: Seen and examined this morning Follow-up for respiratory failure Overall respiratory status improving No chest pain Review of Systems Review of Systems: Yes all other systems are reviewed and are negative Constitutional Constitutional: Denies chills and Denies fever(s) Cardiovascular Cardiovascular: Denies chest pain and Denies palpitations Respiratory Respiratory: Reports cough Gastrointestinal Gastrointestinal: Denies abdominal pain Endocrine Endocrine: Denies palpitations Physical Exam Vital Signs: Vital Signs: Last Vital Signs Temp 96.8 F 07/30/24 11:21 Pulse 101 H 07/30/24 15:04 Resp 18 07/30/24 15:04 BP 122/60 07/30/24 11:21 Pulse Ox 91 L 07/30/24 11:21 O2 Del Method Nasal Cannula 07/30/24 11:21 O2 Flow Rate 2 07/30/24 11:21 FiO2 40 07/28/24 16:29 Oxygen Flow Rate 4 07/28/24 08:37 BMI result Body Mass Index 32.2 Const: General: cooperative, comfortable, alert and awake Nutritional Appearance: overweight Orientation/consciousness: patient oriented x3 Resp: Other: no wheeze Effort & Inspection: normal respiratory effort, able to speak in complete sentences, no respiratory distress and no use of accessory muscles Cardio: Rate: regular rate GI: Inspection: No distended Palpation (GI): Soft to palpation and nontender Neuro: General: patient oriented x3, moves all extremities and CN's II-XI intact bilaterally Objective Data Active Medications Acetaminophen (Acetaminophen 325 Mg Tablet) 650 mg PO Q6H PRN PRN Reason: Pain, Mild (Pain Scale 1-3), fever or headache Last Admin: 07/30/24 13:45 Dose: 650 mg Documented By: FABIAN Albuterol Sulfate (Albuterol Sulfate (0.083%) 2.5 Mg/3 Ml Vial.Neb) 2.5 mg INHALE Q2H PRN PRN Reason: Shortness of Breath/Wheezing Albuterol/Ipratropium (Albuterol/Iprat 2.5/0.5mg 3 Ml Ampul.Neb) 3 ml INHALE RQ4H WHILE AWAKE [facility] Last Admin: 07/30/24 15:02 Dose: 3 ml Documented By: LENNY Atorvastatin Calcium (Atorvastatin Calcium 20 Mg Tablet) 20 mg PO DAILY [facility] Last Admin: 07/30/24 08:51 Dose: 20 mg Documented By: FABIAN Calcium Carbonate (Calcium Carbonate 750 Mg Tab.Chew) 750 mg PO Q4H PRN PRN Reason: Heartburn Cyanocobalamin (Cyanocobalamin (Vitamin B-12) 500 Mcg Tablet) 500 mcg PO DAILY [facility] Last Admin: 07/30/24 08:51 Dose: 500 mcg Documented By: FABIAN Empagliflozin (Empagliflozin 10 Mg Tablet) 10 mg PO DAILY [facility] Last Admin: 07/30/24 08:51 Dose: 10 mg Documented By: FABIAN Enoxaparin Sodium (Enoxaparin Sodium 80 Mg/0.8 Ml Syringe) 80 mg 1 mg/kg (80 mg) SUBCUT Q12H [facility] Last Admin: 07/30/24 08:50 Dose: 80 mg Documented By: FABIAN Escitalopram Oxalate (Escitalopram Oxalate 5 Mg Tablet) 5 mg PO DAILY@1600 [facility] Last Admin: 07/29/24 16:02 Dose: 5 mg Documented By: FABIAN Ferrous Sulfate (Ferrous Sulfate 324 Mg Tablet.Dr) 325 mg PO DAILY@1600 [facility] Last Admin: 07/29/24 16:00 Dose: 325 mg Documented By: FABIAN Fluticasone/Umeclidinium/Vilanterol (Fluticasone/Umeclidinium/Vilanterol 200/62.5/25 Blst.W.Dev) 1 puff INHALE RDAILY [facility] Last Admin: 07/30/24 10:48 Dose: 1 puff Documented By: KVNG Furosemide (Furosemide 40 Mg Tablet) 40 mg PO DAILY@1600 [facility]; Protocol Last Admin: 07/29/24 15:52 Dose: 40 mg Documented By: FABIAN Levothyroxine Sodium (Levothyroxine Sodium 25 Mcg Tablet) 25 mcg PO DAILY@0600 [facility] Last Admin: 07/30/24 06:21 Dose: 25 mcg Documented By: GIANNI Magnesium Hydroxide (Milk Of Magnesia 30 Ml Oral.Susp) 30 ml PO DAILY PRN PRN Reason: Constipation Melatonin (Melatonin 3 Mg Tablet) 6 mg PO BEDTIME PRN PRN Reason: Insomnia Last Admin: 07/28/24 22:24 Dose: 6 mg Documented By: LAURA Methylprednisolone Sodium Succinate (Methylprednisolone Sod Succ 125 Mg/2 Ml Vial) 60 mg IVPUSH Q6H [facility] Last Admin: 07/30/24 13:45 Dose: 60 mg Documented By: FABIAN Metoprolol Tartrate (Metoprolol Tartrate 25 Mg Tablet) 25 mg PO DAILY@1600 [facility]; Protocol Last Admin: 07/28/24 20:52 Dose: 25 mg Documented By: LAURA Pantoprazole Sodium (Pantoprazole Sodium 40 Mg/10 Ml Vial) 40 mg IVPUSH DAILY@0630 [facility] Last Admin: 07/30/24 06:21 Dose: 40 mg Documented By: LAFLAMAngeles Sodium Chloride (0.9 % Sodium Chloride Flush 3 Ml Syringe) 3 ml IVFLUSH QSHIFT [facility] Last Admin: 07/30/24 08:50 Dose: 3 ml Documented By: FABIAN Labs 07/30/24 06:27 07/30/24 06:27 Labs: Laboratory Results - last 24 hr 07/30/24 06:27 MCV 86.0 MCH 27.4 MCHC 31.9 RDW 15.1 Plt Count 244 MPV 11.3 Immature Gran % (Auto) 0.5 H Neut % (Auto) 91.7 H Lymph % (Auto) 5.5 L [place] % (Auto) 2.2 Eos % (Auto) 0.0 Baso % (Auto) 0.1 Lymph # (Auto) 0.8 L [place] # (Auto) 0.3 Eos # (Auto) 0.0 Baso # (Auto) 0.0 Abs Immat Gran (auto) 0.07 H Absolute Neuts (auto) 13.4 H Absolute Nucleated RBC 0.000 Nucleated RBC % (auto) 0.0 Smear Tech's Comments VERIFIED PT 14.3 H D INR 1.2 H D Anion Gap 14 Estim Creat Clear Calc 69.4 Estimated GFR > 60 Fasting Glucose 123 H Calcium 9.7 Total Bilirubin 0.5 AST 22 ALT 11 Alkaline Phosphatase 95 Total Protein 8.5 H Albumin 3.4 L Assessment and Plan (1) Acute respiratory failure with hypoxia: Status: Acute Plan 67-year-old female with history of atrial fibrillation/flutter anticoagulated with Coumadin, heart failure with preserved ejection fraction, aortic stenosis s/p TAVR procedure in 08/2022, s/p St. Alex valve, history of amiodarone toxicity, interstitial lung disease and COPD with chronic hypoxemic respiratory failure, pacer maker in place, and mood disorder who is obese and recently started ozempic 2 weeks ago for weight loss admitted acute hypoxemic respiratory failure secondary to likely hypersensitivity reaction question Ozempic less likely amiodarone 1. Hypersensitivity reaction -Solu-Medrol 125 IV push given this a.m.. continue 60 mg q.6 hours for at least the next 24 hours. If good response would continue 48 hours -echo reviewed; no evidence of right heart strain. No evidence of pulmonary hypertension -would avoid Ozempic going forward -pulmonary to evaluate as outpatient with regards to amiodarone. per cardiology would not resume Blood cultures negative to date 2.Paroxysmal atrial fibrillation acceptable control at current time avoid amiodarone Continue metoprolol Received IV vitamin K for significant elevation in INR, now subtherapeutic, started on therapeutic Lovenox Monitor INR daily 3.Acute hypokalemia resolved with replacement 4.COPD with chronic hypoxemic respiratory failure -stable and well compensated at this time -continue outpatient therapies 5.HTN -acceptable at this time on beta-ashok -adjust as indicated 6. 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 at 13.8 -vitamin K 10 mg IV given INR under 2, started on therapeutic Lovenox Monitor INR daily as above DVT ppx- lovenox Full code Patient requires ongoing hospitalization for IV steroids and specialty consultation regarding pulmonary hypersensitivity reaction Quality Stroke Does the patient have a stroke diagnosis?: No VTE Prior VTE?: No VTE Risk Level:: Medical - moderate - high VTE Device Contraindication: Treatment Not Indicated VTE Drug Contraindication: N/A - Med Ordered
[2024-07-30] MEDS: Escitalopram Oxalate 5 MG TABLET PO (15:38)
[2024-07-30] MEDS: Furosemide 40 MG TABLET PO (15:38)
[2024-07-30] MEDS: Ferrous Sulfate 324 MG TABLET.DR 325 MG PO (15:38)
[2024-07-30] MEDS: Metoprolol Tartrate 25 MG TABLET PO (15:38)
--- NOTE | 2024-07-30 17:51 | P.PNCA_ITS ---
Subjective Subjective Date of Service: 07/30/24 Interval history: Seen examined at bedside in the morning. Overall respiratory status is improving. She is on high-dose steroids. She was given vitamin K INR has normalized. She was started on Lovenox because she has mechanical mitral valve. Physical Exam Vital Signs: Last Vital Signs Temp 97.8 F 07/30/24 15:51 Pulse 101 H 07/30/24 15:51 Resp 19 07/30/24 15:51 BP 119/62 07/30/24 15:51 Pulse Ox 92 07/30/24 15:51 O2 Del Method Nasal Cannula 07/30/24 15:51 O2 Flow Rate 2 07/30/24 15:51 FiO2 40 07/28/24 16:29 Oxygen Flow Rate 4 07/28/24 08:37 BMI result Body Mass Index 32.2 GENERAL APPEARANCE: in no acute distress, pleasant. NECK: no carotid bruit, mild jugular venous distention. SKIN: no suspicious lesions, warm and dry. HEART: no murmurs, irregular rate and rhythm. LUNGS: Bilateral crackles. ABDOMEN: soft, nontender. EXTREMITIES: no edema. PERIPHERAL PULSES: equal. NEUROLOGIC: No gross deficits, AAO X 3 Objective Labs and Meds 07/30/24 06:27 07/30/24 06:27 Lab results: Laboratory Results - last 24 hr 07/30/24 06:27 WBC 14.6 H RBC 4.92 Hgb 13.5 Hct 42.3 MCV 86.0 MCH 27.4 MCHC 31.9 RDW 15.1 Plt Count 244 MPV 11.3 Immature Gran % (Auto) 0.5 H Neut % (Auto) 91.7 H Lymph % (Auto) 5.5 L [place] % (Auto) 2.2 Eos % (Auto) 0.0 Baso % (Auto) 0.1 Lymph # (Auto) 0.8 L [place] # (Auto) 0.3 Eos # (Auto) 0.0 Baso # (Auto) 0.0 Abs Immat Gran (auto) 0.07 H Absolute Neuts (auto) 13.4 H Absolute Nucleated RBC 0.000 Nucleated RBC % (auto) 0.0 Smear Tech's Comments VERIFIED PT 14.3 H D INR 1.2 H D Sodium 141 Potassium 3.7 Chloride 103 Carbon Dioxide 28 Anion Gap 14 BUN 24 H Creatinine 0.77 Estim Creat Clear Calc 69.4 Estimated GFR > 60 Fasting Glucose 123 H Calcium 9.7 Total Bilirubin 0.5 AST 22 ALT 11 Alkaline Phosphatase 95 Total Protein 8.5 H Albumin 3.4 L Progress Note: A&P Assessment and plan (1) PAF (paroxysmal atrial fibrillation): Status: Acute (2) Acute respiratory failure with hypoxia: Status: Acute Plan Pleasant 68 year female with mechanical mitral valve and transcatheter aortic valve replacement in the past. She has paroxysmal atrial fibrillation which is difficult to manage and she was on amiodarone recently and was being planned to have cardioversion done. She presented with shortness of breath and chest x-ray risk concern for bilateral infiltrates and potential drug toxicity as she was on amiodarone. As per my discussion with pulmonology, she has hypersensitivity reaction based on CT findings and this can be related to recent Ozempic use versus amiodarone. Both are currently on hold. She is improving with steroids. Continue oral diuretics and rest of her medications. She was supratherapeutic with INR of 13 and received vitamin K. mechanical mitral valve is high-risk for thrombosis and her INR has normalized completely which was the concern-started on lovenox therapeutic dose and should be continued till INR more than 2. We will follow along with you. Thank you for allowing me to participate in the care of your patient. Please feel free to contact me if you have any questions. Time Spent With Patient Time: Total time managing care of this patient today ____ minutes. Progress Note: Quality Stroke Does the patient have a stroke diagnosis?: No Procedures Date of Service Date of Service: 07/30/24
[2024-07-30] MEDS: Melatonin 3 MG TABLET 6 MG PO (22:06)
[2024-07-31] VITALS (9 sets, daily range): BP systolic 105–125; BP diastolic 58–81; PULSE 97–119; RESP 17–20; TEMP 36–36.6; O2SAT 89–95
[2024-07-31] MEDS: methylPREDNISolone Sod Succ 125 MG/2 ML VIAL 60 MG IVPUSH ×3 (00:22→21:01)
[2024-07-31] MEDS: Levothyroxine Sodium 25 MCG TABLET PO (05:56)
[2024-07-31] MEDS: Pantoprazole Sodium 40 MG/10 ML VIAL IVPUSH (05:56)
--- NOTE | 2024-07-31 06:23 | PC.NURSE ---
Pt AOx4, able to make needs known. Kept telling staff she is going to be on the patient experience board because she is friends with someone who works [place] [facility] [place] on the board. Pt attempting to dictate care. She is refusing all alarms and safety measures. This RN attempted to educate pt as to why we do things, pt not interested. Call vang within reach, commode bedside.
[2024-07-31 07:01] LABS: INTERNATIONAL NORM RATIO 1.3 (0.9-1.1); Prothrombin Time 14.8 SEC (10.9-12.4)
[2024-07-31] MEDS: Fluticasone/Umeclidinium/Vilanterol 200/62.5/25 BLST.W.DEV 1 PUFF INHALE (07:38)
[2024-07-31] MEDS: Albuterol/Iprat 2.5/0.5MG 3 ML AMPUL.NEB INHALE ×3 (07:38→19:53)
[2024-07-31] MEDS: Enoxaparin Sodium 80 MG/0.8 ML SYRINGE SUBCUT ×2 (07:53→21:04)
[2024-07-31] MEDS: Empagliflozin 10 MG TABLET PO (07:53)
[2024-07-31] MEDS: Cyanocobalamin (Vitamin B-12) 500 MCG TABLET PO (07:53)
[2024-07-31] MEDS: Atorvastatin Calcium 20 MG TABLET PO (07:53)
[2024-07-31] MEDS: 0.9 % Sodium Chloride Flush 3 ML SYRINGE IVFLUSH ×3 (07:53→21:01)
--- NOTE | 2024-07-31 10:46 | MHC.CM.PN ---
PER MD ROUNDS, PT MAY BE CLEARED TO DC TOMORROW AND WILL LIKELY NEED [facility] REFERRALS MADE
--- NOTE | 2024-07-31 10:53 | PM.PNCARD ---
Subjective Subjective Date of Service: 07/31/24 Interval history: Seen examined at bedside. She is asking whether amiodarone will be resumed at some stage. I have explained to her that she had a hypersensitivity reaction to either amiodarone or Ozempic. Both have been stopped at this stage and we will rediscuss this as outpatient whether amiodarone can be rechallenged or not. Physical Exam Vital Signs: Last Vital Signs Temp 96.8 F 07/31/24 07:48 Pulse 105 H 07/31/24 07:48 Resp 20 07/31/24 07:48 BP 125/58 L 07/31/24 07:48 Pulse Ox 95 07/31/24 07:48 O2 Del Method Nasal Cannula 07/31/24 07:48 O2 Flow Rate 2 07/31/24 07:48 FiO2 40 07/28/24 16:29 Oxygen Flow Rate 4 07/28/24 08:37 BMI result Body Mass Index 32.2 GENERAL APPEARANCE: in no acute distress, pleasant. NECK: no carotid bruit, mild jugular venous distention. SKIN: no suspicious lesions, warm and dry. HEART: no murmurs, irregular rate and rhythm. LUNGS: Clear to auscultation. ABDOMEN: soft, nontender. EXTREMITIES: no edema. PERIPHERAL PULSES: equal. NEUROLOGIC: No gross deficits, AAO X 3 Objective Labs and Meds 07/30/24 06:27 07/30/24 06:27 Lab results: Laboratory Results - last 24 hr 07/31/24 05:58 Hold Purple Top SEE NOTE PT 14.8 H INR 1.3 H Progress Note: A&P Assessment and plan (1) (HFpEF) heart failure with preserved ejection fraction: Status: Acute (2) PAF (paroxysmal atrial fibrillation): Status: Acute (3) Acute respiratory failure with hypoxia: Status: Acute Plan Pleasant 68 year female with mechanical mitral valve and transcatheter aortic valve replacement in the past. She has paroxysmal atrial fibrillation which is difficult to manage and she was on amiodarone recently and was being planned to have cardioversion done. She presented with shortness of breath and chest x-ray risk concern for bilateral infiltrates and potential drug toxicity as she was on amiodarone. As per my discussion with pulmonology, she has hypersensitivity reaction based on CT findings and this can be related to recent Ozempic use versus amiodarone. Both are currently on hold. She is improving with steroids. Continue oral diuretics and rest of her medications. She was supratherapeutic with INR of 13 and received vitamin K. Mechanical mitral valve is high-risk for thrombosis and her INR has normalized completely which was the concern-started on lovenox therapeutic dose and should be continued till INR more than 2. Coumadin resumed. If she is discharged has some stage she should go home with Lovenox if INR is below 2. Once INR is more than 2 on 2 occasions then Lovenox can be discontinued. We will follow along with you. Thank you for allowing me to participate in the care of your patient. Please feel free to contact me if you have any questions. Time Spent With Patient Time: Total time managing care of this patient today ____ minutes. Progress Note: Quality Stroke Does the patient have a stroke diagnosis?: No Procedures Date of Service Date of Service: 07/31/24
[2024-07-31] MEDS: Metoprolol Tartrate 25 MG TABLET PO ×3 (12:07→21:06)
--- NOTE | 2024-07-31 13:57 | HO.PM.IMPN ---
Subjective Subjective Date of Service: 07/31/24 Interval History: Seen and examined this morning Follow-up for respiratory failure Continues to improve but still short of breath with exertion Heart rate elevated, no palpitations, dizziness Review of Systems Review of Systems: Yes all other systems are reviewed and are negative Constitutional Constitutional: Denies chills and Denies fever(s) ENT Ears, Nose, Mouth, and Throat: Denies dizziness Cardiovascular Cardiovascular: Denies chest pain and Denies palpitations Respiratory Respiratory: Denies cough Neurologic Neurologic: Denies dizziness Endocrine Endocrine: Denies palpitations Physical Exam Vital Signs: Vital Signs: Last Vital Signs Temp 96.8 F 07/31/24 07:48 Pulse 119 H 07/31/24 12:07 Resp 20 07/31/24 12:00 BP 119/67 07/31/24 12:07 Pulse Ox 92 07/31/24 12:00 O2 Del Method Nasal Cannula 07/31/24 12:00 O2 Flow Rate 3 07/31/24 12:00 FiO2 40 07/28/24 16:29 Oxygen Flow Rate 4 07/28/24 08:37 BMI result Body Mass Index 32.2 Const: General: cooperative, comfortable, alert and awake Nutritional Appearance: overweight Orientation/consciousness: patient oriented x3 Resp: Other: no wheeze Effort & Inspection: normal respiratory effort, able to speak in complete sentences, no respiratory distress and no use of accessory muscles Cardio: Rate: regular rate Heart sounds: Clicking heart sound present GI: Inspection: No distended Palpation (GI): Soft to palpation and nontender Neuro: General: patient oriented x3, moves all extremities and CN's II-XI intact bilaterally Objective Data Active Medications Acetaminophen (Acetaminophen 325 Mg Tablet) 650 mg PO Q6H PRN PRN Reason: Pain, Mild (Pain Scale 1-3), fever or headache Last Admin: 07/30/24 13:45 Dose: 650 mg Documented By: FABIAN Albuterol Sulfate (Albuterol Sulfate (0.083%) 2.5 Mg/3 Ml Vial.Neb) 2.5 mg INHALE Q4H PRN PRN Reason: Shortness of Breath/Wheezing Albuterol/Ipratropium (Albuterol/Iprat 2.5/0.5mg 3 Ml Ampul.Neb) 3 ml INHALE RQ6H WHILE AWAKE [facility] Atorvastatin Calcium (Atorvastatin Calcium 20 Mg Tablet) 20 mg PO DAILY [facility] Last Admin: 07/31/24 07:53 Dose: 20 mg Documented By: FABIAN Calcium Carbonate (Calcium Carbonate 750 Mg Tab.Chew) 750 mg PO Q4H PRN PRN Reason: Heartburn Cyanocobalamin (Cyanocobalamin (Vitamin B-12) 500 Mcg Tablet) 500 mcg PO DAILY [facility] Last Admin: 07/31/24 07:53 Dose: 500 mcg Documented By: FABIAN Empagliflozin (Empagliflozin 10 Mg Tablet) 10 mg PO DAILY [facility] Last Admin: 07/31/24 07:53 Dose: 10 mg Documented By: FABIAN Enoxaparin Sodium (Enoxaparin Sodium 80 Mg/0.8 Ml Syringe) 80 mg 1 mg/kg (80 mg) SUBCUT Q12H [facility] Last Admin: 07/31/24 07:53 Dose: 80 mg Documented By: FABIAN Escitalopram Oxalate (Escitalopram Oxalate 5 Mg Tablet) 5 mg PO DAILY@1600 [facility] Last Admin: 07/30/24 15:38 Dose: 5 mg Documented By: FABIAN Ferrous Sulfate (Ferrous Sulfate 324 Mg Tablet.Dr) 325 mg PO DAILY@1600 [facility] Last Admin: 07/30/24 15:38 Dose: 325 mg Documented By: FABIAN Fluticasone/Umeclidinium/Vilanterol (Fluticasone/Umeclidinium/Vilanterol 200/62.5/25 Blst.W.Dev) 1 puff INHALE RDAILY [facility] Last Admin: 07/31/24 07:38 Dose: 1 puff Documented By: CRISTIANO Furosemide (Furosemide 40 Mg Tablet) 40 mg PO DAILY@1600 [facility]; Protocol Last Admin: 07/30/24 15:38 Dose: 40 mg Documented By: FABIAN Levothyroxine Sodium (Levothyroxine Sodium 25 Mcg Tablet) 25 mcg PO DAILY@0600 [facility] Last Admin: 07/31/24 05:56 Dose: 25 mcg Documented By: ALTHEA Magnesium Hydroxide (Milk Of Magnesia 30 Ml Oral.Susp) 30 ml PO DAILY PRN PRN Reason: Constipation Melatonin (Melatonin 3 Mg Tablet) 6 mg PO BEDTIME PRN PRN Reason: Insomnia Last Admin: 07/30/24 22:06 Dose: 6 mg Documented By: ALTHEA Methylprednisolone Sodium Succinate (Methylprednisolone Sod Succ 125 Mg/2 Ml Vial) 60 mg IVPUSH Q12H [facility] Metoprolol Tartrate (Metoprolol Tartrate 25 Mg Tablet) 25 mg PO TID [facility]; Protocol Last Admin: 07/31/24 12:07 Dose: 25 mg Documented By: FABIAN Pantoprazole Sodium (Pantoprazole Sodium 40 Mg/10 Ml Vial) 40 mg IVPUSH DAILY@0630 [facility] Last Admin: 07/31/24 05:56 Dose: 40 mg Documented By: ALTHEA Sodium Chloride (0.9 % Sodium Chloride Flush 3 Ml Syringe) 3 ml IVFLUSH QSHIFT [facility] Last Admin: 07/31/24 07:53 Dose: 3 ml Documented By: FABIAN Warfarin Sodium (Warfarin Sodium 5 Mg Tablet) 5 mg PO DAILY@1800 [facility] Labs 07/30/24 06:27 07/30/24 06:27 Labs: Laboratory Results - last 24 hr 07/31/24 05:58 Hold Purple Top SEE NOTE PT 14.8 H INR 1.3 H Assessment and Plan (1) Acute respiratory failure with hypoxia: Status: Acute Plan 67-year-old female with history of atrial fibrillation/flutter anticoagulated with Coumadin, heart failure with preserved ejection fraction, aortic stenosis s/p TAVR procedure in 08/2022, s/p St. Alex valve, history of amiodarone toxicity, interstitial lung disease and COPD with chronic hypoxemic respiratory failure, pacer maker in place, and mood disorder who is obese and recently started ozempic 2 weeks ago for weight loss admitted acute hypoxemic respiratory failure secondary to likely hypersensitivity reaction question Ozempic less likely amiodarone Acute on chronic respiratory failure with hypoxia due to Acute Hypersensitivity reaction Oxygen demands improving, we will begin to wean systemic steroids echo reviewed; no evidence of right heart strain. No evidence of pulmonary hypertension wean breathing treatments would avoid Ozempic going forward pulmonary to evaluate as outpatient with regards to amiodarone. 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
[2024-07-31] MEDS: Furosemide 40 MG TABLET PO (16:19)
[2024-07-31] MEDS: Escitalopram Oxalate 5 MG TABLET PO (16:19)
[2024-07-31] MEDS: Ferrous Sulfate 324 MG TABLET.DR 325 MG PO (16:20)
[2024-07-31] MEDS: Warfarin Sodium 5 MG TABLET PO (18:24)
[2024-07-31] MEDS: Melatonin 3 MG TABLET 6 MG PO (21:04)
[2024-08-01] VITALS (13 sets, daily range): BP systolic 95–128; BP diastolic 60–78; PULSE 90–129; RESP 17–20; TEMP 36.2–36.6; O2SAT 91–95
[2024-08-01] MEDS: Pantoprazole Sodium 40 MG/10 ML VIAL IVPUSH (06:18)
[2024-08-01] MEDS: Levothyroxine Sodium 25 MCG TABLET PO (06:18)
[2024-08-01] MEDS: Fluticasone/Umeclidinium/Vilanterol 200/62.5/25 BLST.W.DEV 1 PUFF INHALE (07:21)
[2024-08-01] MEDS: Albuterol/Iprat 2.5/0.5MG 3 ML AMPUL.NEB INHALE ×2 (07:24→19:18)
[2024-08-01 07:32] LABS: INTERNATIONAL NORM RATIO 1.4 (0.9-1.1); Prothrombin Time 15.9 SEC (10.9-12.4)
[2024-08-01] MEDS: 0.9 % Sodium Chloride Flush 3 ML SYRINGE IVFLUSH ×3 (08:20→20:33)
[2024-08-01] MEDS: Cyanocobalamin (Vitamin B-12) 500 MCG TABLET PO (08:22)
[2024-08-01] MEDS: Metoprolol Tartrate 25 MG TABLET PO (08:22)
[2024-08-01] MEDS: Atorvastatin Calcium 20 MG TABLET PO (08:22)
[2024-08-01] MEDS: methylPREDNISolone Sod Succ 125 MG/2 ML VIAL 60 MG IVPUSH (08:22)
[2024-08-01] MEDS: Empagliflozin 10 MG TABLET PO (08:22)
[2024-08-01] MEDS: Enoxaparin Sodium 80 MG/0.8 ML SYRINGE SUBCUT ×2 (08:23→19:25)
--- NOTE | 2024-08-01 10:50 | PM.PNCARD ---
Subjective Subjective Date of Service: 08/01/24 Interval history: Seen examined at bedside. She had AFib with RVR in the morning. Currently heart rates are better. Stable from respiratory standpoint. Physical Exam Vital Signs: Last Vital Signs Temp 97.3 F 08/01/24 08:00 Pulse 97 08/01/24 08:22 Resp 18 08/01/24 08:00 BP 106/78 08/01/24 08:22 Pulse Ox 91 L 08/01/24 08:00 O2 Del Method Room Air 08/01/24 08:00 O2 Flow Rate 2 08/01/24 06:16 FiO2 40 07/28/24 16:29 Oxygen Flow Rate 4 07/28/24 08:37 BMI result Body Mass Index 32.2 GENERAL APPEARANCE: in no acute distress, pleasant. NECK: no carotid bruit, mild jugular venous distention. SKIN: no suspicious lesions, warm and dry. HEART: no murmurs, irregular rate and rhythm. LUNGS: Few crackles left lung. ABDOMEN: soft, nontender. EXTREMITIES: no edema. PERIPHERAL PULSES: equal. NEUROLOGIC: No gross deficits, AAO X 3 Objective Labs and Meds 07/30/24 06:27 07/30/24 06:27 Lab results: Laboratory Results - last 24 hr 08/01/24 05:52 PT 15.9 H INR 1.4 H Progress Note: A&P Assessment and plan (1) (HFpEF) heart failure with preserved ejection fraction: Status: Acute (2) PAF (paroxysmal atrial fibrillation): Status: Acute (3) Acute respiratory failure with hypoxia: Status: Acute Plan Pleasant 68 year female with mechanical mitral valve and transcatheter aortic valve replacement in the past. She has paroxysmal atrial fibrillation which is difficult to manage and she was on amiodarone recently and was being planned to have cardioversion done. She presented with shortness of breath and chest x-ray risk concern for bilateral infiltrates and potential drug toxicity as she was on amiodarone. As per my discussion with pulmonology, she has hypersensitivity reaction based on CT findings and this can be related to recent Ozempic use versus amiodarone. Both are currently on hold. She is improving with steroids. Continue oral diuretics and rest of her medications. She was supratherapeutic with INR of 13 and received vitamin K. Mechanical mitral valve is high-risk for thrombosis and her INR has normalized completely which was the concern-started on lovenox therapeutic dose and should be continued till INR more than 2. Coumadin resumed. If she is discharged has some stage she should go home with Lovenox if INR is below 2. Once INR is more than 2 on 2 occasions then Lovenox can be discontinued. AFib with RVR today. Change Toprol-XL 50 mg daily. If he tolerates this then can be increased to 50 mg twice a day tomorrow. Currently no plan of cardioversion. We will follow along with you. Thank you for allowing me to participate in the care of your patient. Please feel free to contact me if you have any questions. Time Spent With Patient Time: Total time managing care of this patient today ____ minutes. Progress Note: Quality Stroke Does the patient have a stroke diagnosis?: No Procedures Date of Service Date of Service: 08/01/24
--- NOTE | 2024-08-01 12:27 | HO.PM.IMPN ---
Subjective Subjective Date of Service: 08/01/24 Interval History: Seen and examined this morning Follow-up for respiratory failure, uncontrolled AFib Breathing continues to improve, heart rate elevated while working with physical therapy, denies palpitations or chest pain Review of Systems Denies chest pain Admits to shortness of breath with minimal movement Denies nausea and volume diarrhea Denies fever chills Review of Systems: Yes all other systems are reviewed and are negative Constitutional Constitutional: Denies chills, Denies excessive sweating, Denies fatigue, Denies fever(s) and Denies snoring Eyes Eyes: Denies blurry vision and Denies itchy eyes ENT Ears, Nose, Mouth, and Throat: Denies dizziness Cardiovascular Cardiovascular: Denies chest pain, Denies pedal edema, Denies palpitations, Reports dyspnea, Denies orthopnea and Denies paroxysmal nocturnal dyspnea Respiratory Respiratory: Denies cough, Denies hemoptysis, Denies excessive phlegm production, Reports dyspnea, Denies snoring and Denies wheezing Gastrointestinal Gastrointestinal: Denies abdominal pain and Denies heartburn Musculoskeletal Musculoskeletal: Denies myalgias, Denies arthralgias and Denies joint swelling Integumentary/Breasts Skin/Breast: Denies rash Neurologic Neurologic: Denies dizziness and Denies memory loss Psychiatric Psychiatric: Denies abnormal sleep pattern, Denies anxiety and Denies memory loss Endocrine Endocrine: Denies excessive sweating, Denies fatigue, Denies heat intolerance and Denies palpitations Hematologic/Lymphatic Hematologic/Lymphatic: Denies easy bruising Allergic/Immunologic Allergic/Immunologic: Denies itchy eyes, Denies seasonal rhinorrhea and Denies wheezing Physical Exam Vital Signs: Vital Signs: Last Vital Signs Temp 97.3 F 08/01/24 12:00 Pulse 93 08/01/24 12:00 Resp 20 08/01/24 12:00 BP 110/71 08/01/24 12:00 Pulse Ox 92 08/01/24 12:00 O2 Del Method Room Air 08/01/24 12:00 O2 Flow Rate 2 08/01/24 06:16 FiO2 40 07/28/24 16:29 Oxygen Flow Rate 4 07/28/24 08:37 BMI result Body Mass Index 32.2 Const: General: cooperative, comfortable, alert and awake Nutritional Appearance: overweight Orientation/consciousness: patient oriented x3 Resp: Other: no wheeze Effort & Inspection: normal respiratory effort, able to speak in complete sentences, no respiratory distress and no use of accessory muscles Cardio: Rate: tachycardic Heart sounds: Clicking heart sound present GI: Inspection: No distended Palpation (GI): Soft to palpation and nontender Neuro: General: patient oriented x3, moves all extremities and CN's II-XI intact bilaterally Objective Data Active Medications Acetaminophen (Acetaminophen 325 Mg Tablet) 650 mg PO Q6H PRN PRN Reason: Pain, Mild (Pain Scale 1-3), fever or headache Last Admin: 07/30/24 13:45 Dose: 650 mg Documented By: FABIAN Albuterol Sulfate (Albuterol Sulfate (0.083%) 2.5 Mg/3 Ml Vial.Neb) 2.5 mg INHALE Q4H PRN PRN Reason: Shortness of Breath/Wheezing Albuterol/Ipratropium (Albuterol/Iprat 2.5/0.5mg 3 Ml Ampul.Neb) 3 ml INHALE RQ6H WHILE AWAKE [facility] Last Admin: 08/01/24 07:24 Dose: 3 ml Documented By: KITTY Atorvastatin Calcium (Atorvastatin Calcium 20 Mg Tablet) 20 mg PO DAILY [facility] Last Admin: 08/01/24 08:22 Dose: 20 mg Documented By: LYNN Calcium Carbonate (Calcium Carbonate 750 Mg Tab.Chew) 750 mg PO Q4H PRN PRN Reason: Heartburn Cyanocobalamin (Cyanocobalamin (Vitamin B-12) 500 Mcg Tablet) 500 mcg PO DAILY [facility] Last Admin: 08/01/24 08:22 Dose: 500 mcg Documented By: LYNN Empagliflozin (Empagliflozin 10 Mg Tablet) 10 mg PO DAILY [facility] Last Admin: 08/01/24 08:22 Dose: 10 mg Documented By: LYNN Enoxaparin Sodium (Enoxaparin Sodium 80 Mg/0.8 Ml Syringe) 80 mg 1 mg/kg (80 mg) SUBCUT Q12H [facility] Last Admin: 08/01/24 08:23 Dose: 80 mg Documented By: LYNN Escitalopram Oxalate (Escitalopram Oxalate 5 Mg Tablet) 5 mg PO DAILY@1600 [facility] Last Admin: 07/31/24 16:19 Dose: 5 mg Documented By: FABIAN Ferrous Sulfate (Ferrous Sulfate 324 Mg Tablet.Dr) 325 mg PO DAILY@1600 [facility] Last Admin: 07/31/24 16:20 Dose: 325 mg Documented By: FABIAN Fluticasone/Umeclidinium/Vilanterol (Fluticasone/Umeclidinium/Vilanterol 200/62.5/25 Blst.W.Dev) 1 puff INHALE RDAILY [facility] Last Admin: 08/01/24 07:21 Dose: 1 puff Documented By: KITTY Furosemide (Furosemide 40 Mg Tablet) 40 mg PO DAILY@1600 [facility]; Protocol Last Admin: 07/31/24 16:19 Dose: 40 mg Documented By: FABIAN Levothyroxine Sodium (Levothyroxine Sodium 25 Mcg Tablet) 25 mcg PO DAILY@0600 [facility] Last Admin: 08/01/24 06:18 Dose: 25 mcg Documented By: ARSLAN Magnesium Hydroxide (Milk Of Magnesia 30 Ml Oral.Susp) 30 ml PO DAILY PRN PRN Reason: Constipation Melatonin (Melatonin 3 Mg Tablet) 6 mg PO BEDTIME PRN PRN Reason: Insomnia Last Admin: 07/31/24 21:04 Dose: 6 mg Documented By: ARSLAN Methylprednisolone Sodium Succinate (Methylprednisolone Sod Succ 125 Mg/2 Ml Vial) 60 mg IVPUSH Q12H [facility] Last Admin: 08/01/24 08:22 Dose: 60 mg Documented By: LYNN Metoprolol Succinate (Metoprolol Succinate Er 50 Mg Tab.Er.24h) 50 mg PO DAILY [facility]; Protocol Pantoprazole Sodium (Pantoprazole Sodium 40 Mg/10 Ml Vial) 40 mg IVPUSH DAILY@0630 [facility] Last Admin: 08/01/24 06:18 Dose: 40 mg Documented By: ARSLAN Sodium Chloride (0.9 % Sodium Chloride Flush 3 Ml Syringe) 3 ml IVFLUSH QSHIFT [facility] Last Admin: 08/01/24 08:20 Dose: 3 ml Documented By: LYNN Warfarin Sodium (Warfarin Sodium 5 Mg Tablet) 5 mg PO DAILY@1800 [facility] Last Admin: 07/31/24 18:24 Dose: 5 mg Documented By: FABIAN Labs 07/30/24 06:27 07/30/24 06:27 Labs: Laboratory Results - last 24 hr 08/01/24 05:52 PT 15.9 H INR 1.4 H Assessment and Plan (1) Hyperprothrombinemia: Status: Acute (2) Acute respiratory failure with hypoxia: Status: Acute Plan 67-year-old female with history of atrial fibrillation/flutter anticoagulated with Coumadin, heart failure with preserved ejection fraction, aortic stenosis s/p TAVR procedure in 08/2022, s/p St. Alex valve, history of amiodarone toxicity, interstitial lung disease and COPD with chronic hypoxemic respiratory failure, pacer maker in place, and mood disorder who is obese and recently started ozempic 2 weeks ago for weight loss admitted acute hypoxemic respiratory failure secondary to likely hypersensitivity reaction question Ozempic less likely amiodarone Acute on chronic respiratory failure with hypoxia due to Acute Hypersensitivity reaction Oxygen demands improving, continue to wean Solu-Medrol echo reviewed; no evidence of right heart strain. No evidence of pulmonary hypertension wean breathing treatments would avoid Ozempic going forward Cardiology to evaluate as outpatient with regards to amiodarone. per cardiology would not resume Blood cultures negative to date on prn o2 at baseline Paroxysmal atrial fibrillation HR variable -elevated this a.m. but improved at this time avoid amiodarone due to above Change metoprolol to Toprol-XL 50 mg starting now and increase to b.i.d. 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
[2024-08-01] MEDS: Metoprolol Succinate ER 50 MG TAB.ER.24H PO (13:34)
[2024-08-01] MEDS: Ferrous Sulfate 324 MG TABLET.DR 325 MG PO (16:38)
[2024-08-01] MEDS: Escitalopram Oxalate 5 MG TABLET PO (16:39)
[2024-08-01] MEDS: Furosemide 40 MG TABLET PO (16:39)
[2024-08-01] MEDS: Warfarin Sodium 5 MG TABLET PO (16:39)
[2024-08-01] MEDS: Metoprolol Tartrate 5 MG/5 ML VIAL IVPUSH (20:31)
[2024-08-01] MEDS: methylPREDNISolone Sod Succ 125 MG/2 ML VIAL 40 MG IVPUSH (20:32)
[2024-08-01] MEDS: Melatonin 3 MG TABLET 6 MG PO (20:33)
[2024-08-02] VITALS (10 sets, daily range): BP systolic 101–118; BP diastolic 55–74; PULSE 76–100; RESP 16–23; TEMP 36.3–37.2; O2SAT 88–96
[2024-08-02] MEDS: 0.9 % Sodium Chloride 250 ML 999 ML IV (00:11)
[2024-08-02] MEDS: Pantoprazole Sodium 40 MG/10 ML VIAL IVPUSH (06:11)
[2024-08-02] MEDS: Levothyroxine Sodium 25 MCG TABLET PO (06:11)
[2024-08-02 07:20] LABS: INTERNATIONAL NORM RATIO 1.7 (0.9-1.1); Prothrombin Time 19.3 SEC (10.9-12.4)
[2024-08-02] MEDS: Albuterol/Iprat 2.5/0.5MG 3 ML AMPUL.NEB INHALE (07:49)
[2024-08-02] MEDS: Enoxaparin Sodium 80 MG/0.8 ML SYRINGE SUBCUT ×2 (07:50→18:48)
[2024-08-02] MEDS: Cyanocobalamin (Vitamin B-12) 500 MCG TABLET PO (07:51)
[2024-08-02] MEDS: Atorvastatin Calcium 20 MG TABLET PO (07:51)
[2024-08-02] MEDS: methylPREDNISolone Sod Succ 125 MG/2 ML VIAL 40 MG IVPUSH (07:51)
[2024-08-02] MEDS: Metoprolol Succinate ER 50 MG TAB.ER.24H PO (07:51)
[2024-08-02] MEDS: Empagliflozin 10 MG TABLET PO (07:51)
[2024-08-02] MEDS: 0.9 % Sodium Chloride Flush 3 ML SYRINGE IVFLUSH ×2 (07:51→17:29)
--- NOTE | 2024-08-02 10:59 | PM.PNCARD ---
Subjective Subjective Date of Service: 08/02/24 Interval history: Seen examined at bedside. Frustrated because she has AFib with RVR and has been on supplemental oxygen. She is saying movement in the room is quite limited for her. She is also saying that nebulizers are making her more tachycardic. She is in AFib with heart rates anywhere from 110 to 130s. Physical Exam Vital Signs: Last Vital Signs Temp 97.4 F 08/02/24 08:00 Pulse 85 08/02/24 08:00 Resp 18 08/02/24 08:00 BP 111/72 08/02/24 08:00 Pulse Ox 94 08/02/24 08:00 O2 Del Method Room Air 08/02/24 08:00 O2 Flow Rate 2 08/02/24 07:02 FiO2 40 07/28/24 16:29 Oxygen Flow Rate 4 07/28/24 08:37 BMI result Body Mass Index 32.2 GENERAL APPEARANCE: in no acute distress, pleasant. NECK: no carotid bruit, + jugular venous distention. SKIN: no suspicious lesions, warm and dry. HEART: no murmurs, irregular rate and rhythm. LUNGS: Few crackles left lung. ABDOMEN: soft, nontender. EXTREMITIES: no edema. PERIPHERAL PULSES: equal. NEUROLOGIC: No gross deficits, AAO X 3 Objective Labs and Meds 07/30/24 06:27 07/30/24 06:27 Lab results: Laboratory Results - last 24 hr 08/02/24 05:54 PT 19.3 H D INR 1.7 H Imaging Radiologist's impression: Impressions Chest X-Ray 08/01/24 11:00 IMPRESSION: No significant interval change in the bilateral infiltrates. Electronically signed by: Jeremiah De Oliveira MD 08/01/2024 05:11 PM EDT RP Progress Note: A&P Assessment and plan (1) (HFpEF) heart failure with preserved ejection fraction: Status: Acute (2) PAF (paroxysmal atrial fibrillation): Status: Acute (3) Acute respiratory failure with hypoxia: Status: Acute Plan Pleasant 68 year female with mechanical mitral valve and transcatheter aortic valve replacement in the past. She has paroxysmal atrial fibrillation which is difficult to manage and she was on amiodarone recently and was being planned to have cardioversion done. She presented with shortness of breath and chest x-ray risk concern for bilateral infiltrates and potential drug toxicity as she was on amiodarone. As per my discussion with pulmonology, she has hypersensitivity reaction based on CT findings and this can be related to recent Ozempic use versus amiodarone. Both are currently on hold. She is improving with steroids. She went into AFib with RVR. She is on Toprol-XL 50 mg. Blood pressure is soft and we can not titrate this further. Add digoxin 250 mcg loading dose x3 6 hours apart. Mildly overloaded. Increase Lasix to 40 mg p.o. b.i.d.. She has a mechanical mitral valve and apparently was given vitamin K for INR of 13. She is currently on Lovenox bridge which should be continued till INR is more than 2. Complex situation because she came with hypersensitivity reaction with significant lung issue. She does not tolerate atrial fibrillation well but we will try a rate control strategy to see if she stays stable. Given the fact that she received vitamin K you can not cardiovert her without SHELIA. We will try to avoid cardioversion currently if possible. Thank you for allowing me to participate in the care of your patient. Please feel free to contact me if you have any questions. Time Spent With Patient Time: Total time managing care of this patient today ____ minutes. Progress Note: Quality Stroke Does the patient have a stroke diagnosis?: No Procedures Date of Service Date of Service: 08/02/24
[2024-08-02] MEDS: Digoxin 0.25 MG TABLET PO ×2 (11:08→17:30)
[2024-08-02] MEDS: Fluticasone/Umeclidinium/Vilanterol 200/62.5/25 BLST.W.DEV 1 PUFF INHALE (11:16)
--- NOTE | 2024-08-02 15:07 | HO.PM.IMPN ---
Subjective Subjective Date of Service: 08/02/24 Interval History: Seen and examined this morning Follow-up for respiratory failure, uncontrolled atrial fibrillation Heart rate significantly elevated this morning after breathing treatment, patient feeling short of breath No palpitations, no chest pain Review of Systems Review of Systems: Yes all other systems are reviewed and are negative Constitutional Constitutional: Denies chills and Denies fever(s) ENT Ears, Nose, Mouth, and Throat: Denies dizziness Cardiovascular Cardiovascular: Denies chest pain, Denies palpitations and Reports dyspnea Respiratory Respiratory: Denies cough and Reports dyspnea Neurologic Neurologic: Denies dizziness Endocrine Endocrine: Denies palpitations Physical Exam Vital Signs: Vital Signs: Last Vital Signs Temp 97.7 F 08/02/24 11:43 Pulse 84 08/02/24 11:43 Resp 20 08/02/24 11:43 BP 101/74 08/02/24 11:43 Pulse Ox 94 08/02/24 11:43 O2 Del Method Nasal Cannula 08/02/24 11:43 O2 Flow Rate 2 08/02/24 11:43 FiO2 40 07/28/24 16:29 Oxygen Flow Rate 4 07/28/24 08:37 BMI result Body Mass Index 32.2 Const: General: cooperative, comfortable, alert and awake Nutritional Appearance: overweight Orientation/consciousness: patient oriented x3 Resp: Other: no wheeze Effort & Inspection: normal respiratory effort, able to speak in complete sentences, no respiratory distress and no use of accessory muscles Cardio: Rate: tachycardic Heart sounds: Clicking heart sound present GI: Inspection: No distended Palpation (GI): Soft to palpation and nontender Neuro: General: patient oriented x3, moves all extremities and CN's II-XI intact bilaterally Objective Data Active Medications Acetaminophen (Acetaminophen 325 Mg Tablet) 650 mg PO Q6H PRN PRN Reason: Pain, Mild (Pain Scale 1-3), fever or headache Last Admin: 07/30/24 13:45 Dose: 650 mg Documented By: FABIAN Atorvastatin Calcium (Atorvastatin Calcium 20 Mg Tablet) 20 mg PO DAILY LEONORA Last Admin: 08/02/24 07:51 Dose: 20 mg Documented By: JARRED Benzocaine (Throat Lozenge, Medicated Lozenge) 1 lozenge MUCOUS MEM Q2H PRN PRN Reason: Sore Throat Calcium Carbonate (Calcium Carbonate 750 Mg Tab.Chew) 750 mg PO Q4H PRN PRN Reason: Heartburn Cyanocobalamin (Cyanocobalamin (Vitamin B-12) 500 Mcg Tablet) 500 mcg PO DAILY [facility] Last Admin: 08/02/24 07:51 Dose: 500 mcg Documented By: JARRED Digoxin (Digoxin 0.25 Mg Tablet) 0.25 mg PO Q6H [facility]; Protocol Stop: 08/02/24 22:46 Last Admin: 08/02/24 11:08 Dose: 0.25 mg Documented By: JARRED Empagliflozin (Empagliflozin 10 Mg Tablet) 10 mg PO DAILY [facility] Last Admin: 08/02/24 07:51 Dose: 10 mg Documented By: JARRED Enoxaparin Sodium (Enoxaparin Sodium 80 Mg/0.8 Ml Syringe) 80 mg 1 mg/kg (80 mg) SUBCUT Q12H [facility] Last Admin: 08/02/24 07:50 Dose: 80 mg Documented By: JARRED Escitalopram Oxalate (Escitalopram Oxalate 5 Mg Tablet) 5 mg PO DAILY@1600 [facility] Last Admin: 08/01/24 16:39 Dose: 5 mg Documented By: LYNN Ferrous Sulfate (Ferrous Sulfate 324 Mg Tablet.Dr) 325 mg PO DAILY@1600 [facility] Last Admin: 08/01/24 16:38 Dose: 325 mg Documented By: LYNN Fluticasone/Umeclidinium/Vilanterol (Fluticasone/Umeclidinium/Vilanterol 200/62.5/25 Blst.W.Dev) 1 puff INHALE RDAILY [facility] Last Admin: 08/02/24 11:16 Dose: 1 puff Documented By: GLENDY Furosemide (Furosemide 40 Mg Tablet) 40 mg PO BID@0900,1800 [facility]; Protocol Guaifenesin/Dextromethorphan (Guaifenesin Dm 100/10/5 Ml 5 Ml Syrup) 5 ml PO Q6H PRN PRN Reason: Cough Levalbuterol HCl (Levalbuterol Hcl 1.25 Mg/3 Ml Vial.Neb) 1.25 mg INHALE Q4H PRN PRN Reason: Shortness of Breath/Wheezing Levothyroxine Sodium (Levothyroxine Sodium 25 Mcg Tablet) 25 mcg PO DAILY@0600 [facility] Last Admin: 08/02/24 06:11 Dose: 25 mcg Documented By: ARSLAN Magnesium Hydroxide (Milk Of Magnesia 30 Ml Oral.Susp) 30 ml PO DAILY PRN PRN Reason: Constipation Melatonin (Melatonin 3 Mg Tablet) 6 mg PO BEDTIME PRN PRN Reason: Insomnia Last Admin: 08/01/24 20:33 Dose: 6 mg Documented By: ARSLAN Metoprolol Succinate (Metoprolol Succinate Er 50 Mg Tab.Er.24h) 50 mg PO DAILY [facility]; Protocol Last Admin: 08/02/24 07:51 Dose: 50 mg Documented By: JARRED Pantoprazole Sodium (Pantoprazole Sodium 40 Mg/10 Ml Vial) 40 mg IVPUSH DAILY@0630 [facility] Last Admin: 08/02/24 06:11 Dose: 40 mg Documented By: ARSLAN Prednisone (Prednisone 20 Mg Tablet) 40 mg PO DAILY [facility] Sodium Chloride (0.9 % Sodium Chloride Flush 3 Ml Syringe) 3 ml IVFLUSH QSHIFT [facility] Last Admin: 08/02/24 07:51 Dose: 3 ml Documented By: JARRED Warfarin Sodium (Warfarin Sodium 5 Mg Tablet) 5 mg PO DAILY@1800 [facility] Last Admin: 08/01/24 16:39 Dose: 5 mg Documented By: LYNN Labs 07/30/24 06:27 07/30/24 06:27 Labs: Laboratory Results - last 24 hr 08/02/24 05:54 PT 19.3 H D INR 1.7 H Assessment and Plan (1) Acute respiratory failure with hypoxia: Status: Acute (2) Atrial fibrillation with rapid ventricular response: Status: Acute (3) Acute on chronic diastolic (congestive) heart failure: Status: Acute Plan 67-year-old female with history of atrial fibrillation/flutter anticoagulated with Coumadin, heart failure with preserved ejection fraction, aortic stenosis s/p TAVR procedure in 08/2022, s/p 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 No evidence of pulmonary hypertension stp[ breathing treatments as contributing to uncontrolled afib would avoid Ozempic going forward Cardiology to evaluate as outpatient with regards to amiodarone. per cardiology would not resume at this time on prn o2 at baseline Paroxysmal atrial fibrillation HR variable -elevated this a.m. HR has been difficult to control avoid amiodarone due to above Changed to Toprol-XL 50 mg, due to blood pressure can tolerate any further increases in beta ashok Received IV vitamin K for significant elevation in INR, now subtherapeutic, started on therapeutic Lovenox; unable to have CV without SHELIA will start digoxin load continue coumadin Monitor INR daily, 1.7 cardiology following Acute on chronic HFpEF, mild Due to uncontrolled atrial fibrillation Increased Lasix to twice daily follow Is&Os follow BMP Acute hypokalemia resolved with replacement COPD with chronic hypoxemic respiratory failure continue outpatient therapies steroids as above HTN BP soft, can't tolerate increases in BB 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
[2024-08-02] MEDS: Escitalopram Oxalate 5 MG TABLET PO (17:29)
[2024-08-02] MEDS: Furosemide 40 MG TABLET PO (17:30)
[2024-08-02] MEDS: Ferrous Sulfate 324 MG TABLET.DR 325 MG PO (17:30)
[2024-08-02] MEDS: Warfarin Sodium 5 MG TABLET PO (17:30)
[2024-08-03] VITALS: BP 109/80; PULSE 89; RESP 20; TEMP 36.3; O2SAT 93
[2024-08-03] MEDS: 0.9 % Sodium Chloride Flush 3 ML SYRINGE IVFLUSH ×2 (00:06→08:29)
[2024-08-03] MEDS: Digoxin 0.25 MG TABLET PO (00:06)
[2024-08-03] MEDS: Calcium Carbonate 750 MG TAB.CHEW PO ×2 (03:08→03:27)
[2024-08-03 04:00] VITALS: BP 114/72; PULSE 80; RESP 20; TEMP 36.6; O2SAT 92
[2024-08-03] MEDS: Levothyroxine Sodium 25 MCG TABLET PO (06:34)
[2024-08-03 06:46] LABS: Hematocrit 40.7 % (37.0-47.0); Hemoglobin 12.7 g/dl (12.0-16.0); Mean Corpuscular HGB Conc 31.2 g/dl (31.0-35.0); Mean Corpuscular Hemoglobin 27.3 pg (27.0-33.0); Mean Corpuscular Volume 87.3 fL (80.0-98.0); Mean Platelet Volume 11.8 fL (9.4-12.3); Platelet Count 201 X10*3/uL (160-400); Red Blood Count 4.66 X10*6/uL (4.20-5.50); Red Cell Distribution Width 15.4 % (11.0-16.0); White Blood Count 9.7 X10*3/uL (4.8-10.8)
[2024-08-03 07:02] LABS: INTERNATIONAL NORM RATIO 1.9 (0.9-1.1); Prothrombin Time 22.3 SEC (10.9-12.4)
[2024-08-03 07:03] LABS: Anion Gap 8 (12-20); Blood Urea Nitrogen 17 mg/dL (9-16); Calcium 8.4 mg/dL (8.4-10.2); Carbon Dioxide 33 mmol/L (22-29); Chloride 105 mmol/L (96-108); Creatinine Clr Calc Pharmacy 74.1; Estimated Glomerular Filt Rate > 60; Glucose Random 72 mg/dL (60-115); Magnesium 2.4 mg/dL (1.6-2.6); Potassium 3.2 mmol/L (3.3-5.1); Sodium 143 mmol/L (135-145)
[2024-08-03 08:00] VITALS: BP 117/57; PULSE 94; RESP 20; TEMP 36.4; O2SAT 93
[2024-08-03] MEDS: Fluticasone/Umeclidinium/Vilanterol 200/62.5/25 BLST.W.DEV 1 PUFF INHALE (08:10)
[2024-08-03 08:11] VITALS: PULSE 101; RESP 18; O2SAT 91
[2024-08-03] MEDS: Empagliflozin 10 MG TABLET PO (08:24)
[2024-08-03] MEDS: predniSONE 20 MG TABLET 40 MG PO (08:24)
[2024-08-03] MEDS: Atorvastatin Calcium 20 MG TABLET PO (08:24)
[2024-08-03] MEDS: Cyanocobalamin (Vitamin B-12) 500 MCG TABLET PO (08:24)
[2024-08-03] MEDS: Metoprolol Succinate ER 50 MG TAB.ER.24H PO (08:24)
[2024-08-03] MEDS: Furosemide 40 MG TABLET PO (08:24)
[2024-08-03] MEDS: Enoxaparin Sodium 80 MG/0.8 ML SYRINGE SUBCUT (08:24)
--- NOTE | 2024-08-03 09:31 | P.PNCA_ITS ---
Subjective Subjective Date of Service: 08/03/24 Principal diagnosis: Acute interstitial lung disease, atrial fibrillation, valve disease Interval history: Patient says she is feeling a lot better although she still requires oxygen. Heart rate is better control since introduction of digoxin. Her metoprolol dose has also been load. She is feeling good to go home. Currently still getting Lovenox subcutaneously. INRs is still subtherapeutic. Review of Systems Constitutional: Reports no additional constitutional complaints Cardiovascular: Denies chest pain, Denies leg edema, Denies lightheadedness, Denies palpitations and Reports dyspnea (Improved) Respiratory: Reports cough and Reports dyspnea (Improved) Gastrointestinal: Reports no additional gastrointestinal complaints Genitourinary: Reports no additional female genitourinary complaints Skin/Breast: Reports system reviewed and no additional complaints, except as docu Reports system reviewed and no additional complaints, except as documented Endocrine: Denies palpitations Physical Exam Vital Signs: Last Vital Signs Temp 97.6 F 08/03/24 08:00 Pulse 101 H 08/03/24 08:11 Resp 18 08/03/24 08:11 BP 117/57 L 08/03/24 08:00 Pulse Ox 93 08/03/24 08:00 O2 Del Method Nasal Cannula 08/03/24 08:00 O2 Flow Rate 5 08/03/24 08:00 FiO2 40 07/28/24 16:29 Oxygen Flow Rate 4 07/28/24 08:37 BMI result Body Mass Index 32.2 Const General: cooperative, comfortable, no acute distress, alert and awake Nutritional Appearance: overweight Orientation/consciousness: patient oriented x3 Neck Neck: Yes trachea midline, Yes supple and Yes no JVD Resp Effort & Inspection: normal respiratory effort Auscultation: crackles (coarse) bilateral at the base Cardio Jugular venous distension: no JVD Rate: tachycardic Rhythm: abnormal rhythm irregularly irregular Heart sounds: S2 normal heart sound present, Clicking heart sound present (Bosque opening and closing click of mitral valve), no gallops and Murmur heart sound present systolic early GI Auscultation: normal bowel sounds Skin General skin exam: no rashes or lesions noted Neuro General: patient oriented x3 and no focal motor deficits Extrem General: Yes no clubbing, cyanosis or edema Objective Labs and Meds 08/03/24 05:57 08/03/24 05:57 Lab results: Laboratory Results - last 24 hr 08/03/24 05:57 WBC 9.7 RBC 4.66 Hgb 12.7 Hct 40.7 MCV 87.3 MCH 27.3 MCHC 31.2 RDW 15.4 Plt Count 201 MPV 11.8 Absolute Nucleated RBC 0.000 Nucleated RBC % (auto) 0.0 PT 22.3 H INR 1.9 H Sodium 143 Potassium 3.2 L Chloride 105 Carbon Dioxide 33 H Anion Gap 8 L BUN 17 H Creatinine 0.72 Estim Creat Clear Calc 74.1 Estimated GFR > 60 Random Glucose 72 Calcium 8.4 D Magnesium 2.4 Progress Note: A&P Assessment and plan (1) Acute respiratory failure with hypoxia: Status: Acute Assessment and Plan: Patient was extremely complicated medical history. She came in with acute hypoxemic respiratory failure with bilateral him with rate rates are suggestive of acute lung injury most likely related to amiodarone. Less likely related to Ozempic. I would discontinue mode these drugs for now. Continue supportive care. Currently on prednisone and would be on tapering therapy. Continue bronchodilators. Continue current diuretic regimen. Continue oxygen therapy. Patient seems like she can handle this at home and wants to be discharged home. (2) Atrial fibrillation with rapid ventricular response: Status: Acute Assessment and Plan: Atrial fibrillation rapid ventricular response. This is better rate control with current digoxin therapy. Continue digoxin 0.25 mg daily. Will check digoxin assay in 1 week. Continue metoprolol therapy. Currently on warfarin therapy unfortunately she received vitamin K in the ED and her INR became subtherapeutic. This will affect her care for cardioversion in the future. She has not tolerated atrial fibrillation long run. For now will pursue rate control once her pulmonary situation has improved will refer her for ablation therapy and eventually switching her to alternative antiarrhythmic such as Tikosyn to maintain rhythm. 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 (3) Hx of mitral valve replacement: Status: Acute Assessment and Plan: History of mitral valve replacement in the past. Working well. SBE prophylaxis as per ACC/[facility] guidelines. Continue warfarin therapy till target INR is above 2.5. Follow-up INR in 2 days. (4) Status post transcatheter aortic valve replacement: Status: Acute Assessment and Plan: She was post transcatheter aortic valve replacement well functioning bioprosthetic aortic valve. SBE prophylaxis. Continue aggressive risk factor modification. (5) (HFpEF) heart failure with preserved ejection fraction: Status: Acute Assessment and Plan: Heart failure preserved ejection fraction setting of persistent atrial fibrillation clinically appears to be euvolemic. Continue current diuretic dose as well as Jardiance therapy. Management of heart failure was discussed. Continue supportive pulmonary care for now. Patient can be discharged from cardiac perspective. Will follow-up as outpatient in near future. Time Spent With Patient Time: Total time managing care of this patient today ____ minutes. Progress Note: Quality Stroke Does the patient have a stroke diagnosis?: No Procedures Date of Service Date of Service: 08/03/24
--- NOTE | 2024-08-03 09:50 | W.MHC.F2F ---
Service Date Service Date: 08/03/24 Encounter Date of encounter: 08/03/24 Reasons for Services Signs and symptoms assessed: Acute on chronic respiratory failure with hypoxia Acute hypersensitivity reaction Paroxysmal atrial fibrillation Acute on chronic heart failure with preserved ejection fraction, mild Reason for [facility]: monitoring of PT/INR (Check INR in 2 days) and other (Lovenox bridge) Homebound: Leaving the home is medically contraindicated at this time without the asist of a device and/or another person due th the listed conditions above and below. Reason homebound: weakness related to hospital stay Certification: Based on the above findings, I certify that this patient is confined to the home and needs intermittent [facility] care, physical therapy and/or speech therapy, or continues to need occupational therapy. The patient is under my care, and I have initiated the establishment of the plan of care. The patient will be followed by a physician who will periodically review the plan of care. Time Spent With Patient Time: Total time managing care of this patient today ____ minutes.
--- NOTE | 2024-08-03 09:53 | PM.DS ---
DS: Providers Provider Date of Service: 08/03/24 Date of admission: 07/28/24 11:38 Primary care physician: Daniela Chopra MD Consults: 07/28/24 11:37 Consult to Cardiology Routine Consulting Provider: [facility] [place] [place] [facility] Reason for consultation: chf, hypoxia, ?amio toxicity Consult to Pulmonology Routine Consulting Provider: [facility] [place] [facility] Reason for consultation: ?amio toxicity DS: Diagnosis Discharge Diagnosis (1) Acute respiratory failure with hypoxia: Status: Acute (2) Atrial fibrillation with rapid ventricular response: Status: Acute (3) Hx of mitral valve replacement: Status: Acute (4) Status post transcatheter aortic valve replacement: Status: Acute (5) (HFpEF) heart failure with preserved ejection fraction: Status: Acute DS: Summary Hospital Course Hospital Course: 68-year-old woman treated for acute on chronic respiratory failure with hypoxia secondary to acute hypersensitivity reaction possibly due to Ozempic versus amiodarone. Oxygen demand has improved significantly with IV steroids and she was transitioned to oral prednisone. Echocardiogram showed no evidence of right heart strain and no evidence of pulmonary hypertension. The plan is for patient to avoid Ozempic and she was taken off of her amiodarone as well. Difficulty for her she is uncontrolled atrial fibrillation with rapid ventricular response. She was seen evaluated by Cardiology who recommended to stop amiodarone, increase metoprolol XL to 50 mg. She was did loaded and will continue 0.25 mg daily. She will be bridged with Lovenox due to being subtherapeutic with her INR but initially had an INR of 13.8 and was given a dose of vitamin K. She will continue her warfarin and Lovenox and check INR in 2 days. She had some mild heart failure and was treated with IV Lasix twice daily but is doing much better at this point. She should continue her home medications. Plan is for discharge home and she is in agreement with this. Acute hypokalemia. Resolved with replacement sign COPD with chronic hypoxic respiratory failure. No acute exacerbation. Continue outpatient therapies. On home O2 Hypertension. Soft blood pressures and could not tolerate increase in beta-ashok, stable at this time Time Attestation Discharge Coordination Time (in mins): 36 Quality: Safe Use of Opioids Does Pt have an Active Cancer Diagnosis on the Problem List?: No Quality: Stroke Does the patient have a stroke diagnosis?: No Physical Exam Vital Signs: Vital Signs: Last Vital Signs Temp 97.6 F 08/03/24 08:00 Pulse 101 H 08/03/24 08:11 Resp 18 08/03/24 08:11 BP 117/57 L 08/03/24 08:00 Pulse Ox 93 08/03/24 08:00 O2 Del Method Nasal Cannula 08/03/24 08:00 O2 Flow Rate 5 08/03/24 08:00 FiO2 40 07/28/24 16:29 Oxygen Flow Rate 4 07/28/24 08:37 BMI result Body Mass Index 32.2 Appearing in no acute distress head is normocephalic atraumatic eyes pupils are PERRLA sclera is anicteric mouth throat mucous membranes are intact and moist neck is supple no lymphadenopathy, no JVD noted lung sounds are clear to auscultation heart regular rate rhythm, clear S1, S2 positive bowel sounds, abdomen is soft, nontender neuro patient is alert x3, no focal deficits DS: Data Data Completed and Pending Completed studies during hospitalization [Text1]: Procedures Muslim of Cardiac Rhythm, Single (12/11/22) Transfusion of Nonautologous Red Blood Cells into Peripheral Vein, Percutaneous Approach (09/27/22) Labs on day of discharge: Laboratory Results - last 24 hr 08/03/24 05:57 WBC 9.7 RBC 4.66 Hgb 12.7 Hct 40.7 MCV 87.3 MCH 27.3 MCHC 31.2 RDW 15.4 Plt Count 201 MPV 11.8 Absolute Nucleated RBC 0.000 Nucleated RBC % (auto) 0.0 PT 22.3 H INR 1.9 H Sodium 143 Potassium 3.2 L Chloride 105 Carbon Dioxide 33 H Anion Gap 8 L BUN 17 H Creatinine 0.72 Estim Creat Clear Calc 74.1 Estimated GFR > 60 Random Glucose 72 Calcium 8.4 D Magnesium 2.4 Discharge Plan Discharge Anticipated Discharge Date/Time: 08/03/24 09:36 Patient Disposition: Home Health Service Discharge Diagnosis: Acute on chronic respiratory failure with hypoxia Acute hypersensitivity reaction Acute on chronic heart failure with preserved ejection fraction, mild Paroxysmal atrial fibrillation Referrals: Daniela Chopra MD [Primary Care Provider] - 1 Week Discharge Medications: New metoprolol succinate 50 mg Tablet Extended Release 24 Hr 50 mg PO DAILY Qty: 60 0RF Protocol: Hold for SBP/HR < HOLD for SBP < : 90 HOLD for HR < : 60 warfarin [Jantoven] 5 mg Tablet 5 mg PO DAILY@1800 Qty: 30 0RF enoxaparin 80 mg/0.8 mL Syringe 80 mg subcut Q12H Qty: 8 0RF digoxin 250 mcg (0.25 mg) tablet 250 mcg PO DAILY Qty: 30 0RF Continued Jardiance 10 mg tablet 10 mg PO DAILY Qty: 30 8RF atorvastatin 20 mg Tablet 20 mg PO DAILY cyanocobalamin (vitamin B-12) [Vitamin B-12] 500 mcg Tablet 500 mcg PO DAILY Qty: 90 3RF Trelegy Ellipta 200-62.5-25 mcg blister with device 1 ea inhalation DAILY escitalopram oxalate 5 mg tablet 5 mg PO DAILY@1600 furosemide 40 mg tablet 40 mg PO DAILY@1600 levothyroxine 25 mcg tablet 25 mcg PO DAILY@0600 ferrous sulfate 325 mg (65 mg iron) tablet 325 mg PO DAILY@1600 albuterol sulfate [Ventolin HFA] 90 mcg/actuation HFA aerosol inhaler 2 puff inhalation Q4-6H PRN (Reason: breathing) ketoconazole 2 % cream 1 appl topical BID PRN (Reason: Itching) Discontinued warfarin 2.5 mg tablet 7.5 mg PO DAILY@1800 Protocol: Dose Management Condition: Saturday (Week One) Dose/Route: 7.5 mg Instruction: 3 x 2.5 mg tablets Condition: Saturday Dose/Route: 7.5 mg Instruction: 3 x 2.5 mg tablets Condition: Saturday Dose/Route: 7.5 mg Instruction: 3 x 2.5 mg tablets Condition: Saturday Dose/Route: 7.5 mg Instruction: 3 x 2.5 mg tablets Condition: Dose/Route: 7.5 mg Instruction: 3 x 2.5 mg tablets Condition: Saturday Dose/Route: 7.5 mg Instruction: 3 x 2.5 mg tablets Condition: Saturday Dose/Route: 7.5 mg Instruction: 3 x 2.5 mg tablets Condition: Saturday (Week Two) Dose/Route: 7.5 mg Instruction: 3 x 2.5 mg tablets Condition: Saturday Dose/Route: 7.5 mg Instruction: 3 x 2.5 mg tablets Condition: Saturday Dose/Route: 7.5 mg Instruction: 3 x 2.5 mg tablets Condition: Saturday Dose/Route: 7.5 mg Instruction: 3 x 2.5 mg tablets Condition: Dose/Route: 7.5 mg Instruction: 3 x 2.5 mg tablets Condition: Saturday Dose/Route: 7.5 mg Instruction: 3 x 2.5 mg tablets Condition: Saturday Dose/Route: 7.5 mg Instruction: 3 x 2.5 mg tablets Protocol Text: Adjustment Start Date: Saturday07/20/24 INR Value: 3.3 INR Date: 07/20/24 Recheck Date: 07/27/24 Patient Comments: only using 2.5mg tablet now Rx Instructions: 10mg x 1 day/ 7.5mg x 6 days metoprolol tartrate 25 mg tablet 25 mg PO DAILY Discharge Orders: Discharge Order (Routine); Ordered 08/03/24 Ordered By: Angela Kirkland Diet: Advance to usual diet Activity on Discharge: As tolerated Stand Alone Forms: Patient Portal Discharge page Print Language: Tamazight Other Ambulatory Orders: Prothrombin Time INR (Routine) Timeframe: 2 Days Facility: [facility] - Location: Laboratory Ordered By: Angela Kirkland Care Plan Goals: Complete Lovenox bridge with warfarin Health Concerns: Acute on chronic respiratory failure with hypoxia Acute hypersensitivity reaction Acute on chronic heart failure with preserved ejection fraction, mild Paroxysmal atrial fibrillation Plan of Treatment: Primary care provider as needed Follow up with Cardiology as needed Take all medications as prescribed Assessment: See discharge summary
--- NOTE | 2024-08-03 10:31 | MHC.CM.PN ---
Second IMM 08/03/24, Pt has been medically cleared for DC, She will go home via family transport, and have home care services from [facility].
== END 2024-08-03 12:28 | disposition home health service (06) | DRG 189 ==
LOC: HO.ED 11:33 → HO.EDOVER 11:47 → HO.IMC 07-29 12:15
PROVIDERS: Hospitalist; Physician Assistant Medical; Admitting Provider Physician Assistant; Emergency Provider Emergency Medicine; PCP Internal Medicine; Visit Provider Nurse Practitioner Acute Care
DX: J96.21 Acute and chronic respiratory failure with hypoxia (principal); I50.33 Acute on chronic diastolic (congestive) heart failure; I11.0 Hypertensive heart disease with heart failure; I48.0 Paroxysmal atrial fibrillation; I49.5 Sick sinus syndrome; R79.1 Abnormal coagulation profile; E03.9 Hypothyroidism, unspecified; J44.9 Chronic obstructive pulmonary disease, unspecified; F39 Unspecified mood [affective] disorder; T46.2X5A Adverse effect of other antidysrhythmic drugs, initial encounter; T38.3X5A Adverse effect of insulin and oral hypoglycemic [antidiabetic] drugs, initial encounter; E87.6 Hypokalemia; Z95.0 Presence of cardiac pacemaker; Z20.822 Contact with and (suspected) exposure to COVID-19; Z95.2 Presence of prosthetic heart valve; Z87.891 Personal history of nicotine dependence; Z79.01 Long term (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; Z79.890 Hormone replacement therapy; Z79.899 Other long term (current) drug therapy
CPT/HCPCS: 0241U; 36415; 71045; 71250; 80048; 80053; 80076; 81003; 83735; 83880; 84443; 84484; 85025; 85027; 85610; 85652; 86140; 93005; 93306; 94640; 97162; 99285; J1650; J1940; J2470; J2919; J3430; Q9957

== ENCOUNTER 2024-07-28 11:38 | Outpatient (BNV) | payer MEDICARE, MEDICAID, SELFPAY | END 2024-07-29 07:00 | PROVIDERS: Admitting Provider Physician Assistant; Emergency Provider Emergency Medicine; PCP Internal Medicine; Visit Provider Internal Medicine Cardiovascular Disease | DX: I51.7 Cardiomegaly (principal); Z95.2 Presence of prosthetic heart valve; Z95.3 Presence of xenogenic heart valve | CPT/HCPCS: 93306 ==

== ENCOUNTER → 2024-07-28 11:38 | Outpatient (BNV) | payer MEDICARE, MEDICAID, SELFPAY | PROVIDERS: Admitting Provider Physician Assistant; Emergency Provider Emergency Medicine; PCP Internal Medicine; Visit Provider Internal Medicine Pulmonary Disease | DX: J96.01 Acute respiratory failure with hypoxia (principal); R93.89 Abnormal findings on diagnostic imaging of other specified body structures | CPT/HCPCS: 99223 ==

== ENCOUNTER → 2024-07-28 11:38 | Outpatient (BNV) | payer MEDICARE, MEDICAID, SELFPAY | PROVIDERS: Admitting Provider Physician Assistant; Emergency Provider Emergency Medicine; PCP Internal Medicine; Visit Provider Internal Medicine Cardiovascular Disease | DX: J96.01 Acute respiratory failure with hypoxia (principal); I48.91 Unspecified atrial fibrillation; Z95.2 Presence of prosthetic heart valve; I50.32 Chronic diastolic (congestive) heart failure | CPT/HCPCS: 99223; 99233 ==

== ENCOUNTER → 2024-07-28 11:38 | Outpatient (BNV) | payer MEDICARE, MEDICAID, SELFPAY | PROVIDERS: Admitting Provider Physician Assistant; Emergency Provider Emergency Medicine; PCP Internal Medicine; Visit Provider Physician Assistant | DX: J96.01 Acute respiratory failure with hypoxia (principal) | CPT/HCPCS: 99223; 99232; 99233; 99239; G0180 ==

== ENCOUNTER → 2024-08-06 09:54 | Outpatient (BNVA) | payer MEDICARE, MEDICAID, SELFPAY | PROVIDERS: PCP Internal Medicine; Visit Provider Internal Medicine ==

== ENCOUNTER → 2024-08-07 16:16 | Outpatient (BNVA) | payer MEDICARE, MEDICAID, SELFPAY | PROVIDERS: PCP Internal Medicine; Visit Provider Internal Medicine ==

== ENCOUNTER → 2024-08-11 16:32 | Outpatient (BNVA) | payer MEDICARE, MEDICAID, SELFPAY | PROVIDERS: PCP Internal Medicine; Visit Provider Internal Medicine ==

== ENCOUNTER → 2024-08-12 10:42 | Outpatient (BNVA) | payer MEDICARE, MEDICAID, SELFPAY | PROVIDERS: PCP Internal Medicine; Visit Provider Internal Medicine ==

== ENCOUNTER 2024-08-13 07:15 | Inpatient (IN) | payer MEDICARE, MEDICAID, SELFPAY ==
[2024-08-13] VITALS (21 sets, daily range): BP systolic 96–148; BP diastolic 40–71; PULSE 68–92; RESP 16–39; TEMP 36.4–38.5; O2SAT 79–96; BMI 30.7
--- NOTE | ~2024-08-13 | XR_ITS ---
EXAMINATION: XR CHEST CLINICAL INFORMATION: Temporary dialysis catheter placement. COMPARISON: CT chest from 08/17/2024. Chest radiograph from 08/15/2024. TECHNIQUE: AP portable upright radiograph of the chest. FINDINGS: Endotracheal tube terminates 3.1 cm above the kain. Enteric tube passes below the level of diaphragm with tip below the inferior most margin of this exam. Left pectoral pacemaker with leads overlying the right atrium and right ventricle. Changes of prior TAVR and tricuspid/mitral valves procedures. Median sternotomy wires remain midline and intact. Right internal jugular central venous catheter with tip overlying the upper superior vena cava. The patient is moderately rotated to the right. Persistent fluffy airspace opacification throughout the lung moura. No new dense focal consolidative process. No pneumothorax. The cardiac silhouette is moderately prominent, similar to prior exams. No demonstrated acute osseous abnormalities. XR/XR chest 1V IMPRESSION: 1. Endotracheal tube terminates 3.1 cm above the kain. 2. Right internal jugular central venous catheter with tip overlying the upper superior vena cava. 3. Persistent fluffy airspace opacification throughout the lung moura suggestive of pulmonary edema in the setting of volume overload. 4. No new dense focal consolidative process. Electronically signed by: Layton Parker DO 08/19/2024 08:06 PM EDT
--- NOTE | ~2024-08-13 | CT_ITS ---
EXAMINATION: CT CHEST WITHOUT CONTRAST CLINICAL INFORMATION: Hypoxia. Fevers. Cough. COMPARISON: Chest x-ray earlier today and chest CT July 28, 2024 TECHNIQUE: Multidetector volumetric CT imaging of the chest was done. Axial MIP volume rendering provided. Sagittal and coronal reformatted images were obtained. Today's examination is limited secondary to respiratory motion artifact. This CT examination was performed using dose optimization techniques as appropriate, variously including the following: *Automated exposure control *Adjustment of mA and/or kV according to patient size (this includes techniques or standardized protocols for targeted exams where dose is matched to indication/reason for exam; i.e. extremities or head) *Use of iterative reconstruction technique DLP: 463 mGy-cm FINDINGS: Central airways are patent although some peripheral mucous plugging is noted. Extensive patchy and consolidative airspace disease is again noted bilaterally, slightly worsened from prior chest CT of July 28, 2024. A tiny amount of left-sided pleural fluid is noted. There is a background of mild emphysematous changes demonstrated. The heart is enlarged. Patient is status post TAVR, valvular replacement and dual lead pacemaker placement. Normal caliber thoracic aorta. Dilated main pulmonary artery suggesting pulmonary arterial hypertension. There are several prominent/enlarged mediastinal lymph nodes which appear similar. No pathologically enlarged axillary lymph nodes. Visualized portions of the upper abdomen are grossly unremarkable. Partially visualized postsurgical changes of the stomach. Diffuse osteopenia. Moderate degenerative changes of the spine. Sternotomy wires noted. CT/CT chest wo IV con IMPRESSION: Extensive patchy and consolidative airspace disease is again noted bilaterally, slightly worsened from prior chest CT of July 28, 2024. Fleischner guidelines were followed. Electronically signed by: Fidel Green MD 08/13/2024 03:47 PM EDT
--- NOTE | ~2024-08-13 | XR_ITS ---
EXAMINATION: XR CHEST CLINICAL INFORMATION: OG tube placement COMPARISON: Chest x-ray on 08/15/2024 TECHNIQUE: Frontal view of the chest was obtained. FINDINGS: Interval placement of an enteric tube terminates in the stomach. No other changes from the prior exam. XR/XR chest 1V IMPRESSION: Enteric tube terminates in the stomach. Electronically signed by: Candace Smith MD 08/15/2024 01:24 PM EDT
--- NOTE | ~2024-08-13 | CT_ITS ---
EXAMINATION: CT CHEST WITHOUT CONTRAST CLINICAL INFORMATION: dyspnea, hypoxia COMPARISON: CT chest 08/13/2024 TECHNIQUE: Multidetector volumetric CT imaging of the chest was done. Axial MIP volume rendering provided. Sagittal and coronal reformatted images were obtained. This CT examination was performed using dose optimization techniques as appropriate, variously including the following: *Automated exposure control *Adjustment of mA and/or kV according to patient size (this includes techniques or standardized protocols for targeted exams where dose is matched to indication/reason for exam; i.e. extremities or head) *Use of iterative reconstruction technique DLP: 310 mGy-cm FINDINGS: LUNGS: Central airways are patent. Endotracheal tube with tip approximately 2.5 cm above the kain. Multifocal dense consolidations in the bilateral lower lobes, increased from prior. Diffuse ground glass opacities bilaterally, increased from prior. No significant pleural effusion. No pneumothorax. Mild diffuse centrilobular emphysema. MEDIASTINUM: Cardiomegaly without pericardial effusion. TAVR in place. Tricuspid and mitral valve annuloplasty is in place. Small fat-containing right posterior diaphragmatic hernia, as before. The main pulmonary artery is enlarged measuring up to 5 cm. The thoracic aorta is normal in caliber without scattered atheromatous calcifications. Normal thyroid. Several enlarged mediastinal lymph nodes including a right paratracheal node measuring up to 1.4 cm in short axis (series #5 axial image 190), similar to prior. No hilar lymphadenopathy. CORONARY ARTERY CALCIFICATION: Present. AXILLA: No lymphadenopathy. Left subclavian pacemaker partially visualized. UPPER ABDOMEN: Enteric tube courses below the diaphragm and out of [id number]. Partially visualized anastomotic sutures along the stomach are intact. Partially visualized ill-defined hypodensity along the falciform ligament is favored to represent focal fatty infiltration. OSSEOUS STRUCTURES: No acute or suspicious osseous abnormality. Minor multilevel thoracic spondylosis. Intact sternotomy wires. CT/CT chest wo IV con IMPRESSION: 1. Multifocal dense consolidations in the bilateral lower lobes, increased from prior. Diffuse ground glass opacities bilaterally, increased from prior. Findings are concerning for multifocal infectious/inflammatory process. 2. Several enlarged mediastinal lymph nodes are similar to prior. 3. Main pulmonary artery is enlarged, suggestive of pulmonary arterial hypertension. Fleischner guidelines were followed. Electronically signed by: Leidy Hammond DO 08/17/2024 04:53 PM EDT RP
--- NOTE | ~2024-08-13 | XR_ITS ---
EXAMINATION: XR CHEST CLINICAL INFORMATION: Dyspnea COMPARISON: Chest radiograph 08/13/2024 TECHNIQUE: Frontal view of the chest was obtained. FINDINGS: Again noted with lead pacemaker. TAVR stent. Cardiac valvular prosthesis. Overlying EKG wires. Median sternotomy wires. The lungs are mildly hypoexpanded. Interval worsening of diffuse bilateral airspace opacities, which appears more confluent in the right lung. Trace left pleural effusion. No pneumothorax. The cardiomediastinal silhouette is unchanged. XR/XR chest 1V IMPRESSION: Interval worsening of diffuse bilateral airspace opacities, which appears more confluent in the right lung. Trace left pleural effusion. Electronically signed by: Derick Molina MD 08/14/2024 08:56 AM EDT
--- NOTE | ~2024-08-13 | XR_ITS ---
EXAMINATION: XR CHEST CLINICAL INFORMATION: Central line placement COMPARISON: Chest x-ray on 08/15/2024 TECHNIQUE: Frontal view of the chest was obtained. FINDINGS: Interval placement of a nontunneled right internal jugular vein catheter terminating in the distal SVC. Endotracheal tube is unchanged. No other changes from the prior exam. No pneumothorax. XR/XR chest 1V IMPRESSION: Right internal jugular vein catheter terminates in the distal SVC. Electronically signed by: Candace Smith MD 08/15/2024 01:25 PM EDT
--- NOTE | ~2024-08-13 | XR_ITS ---
EXAMINATION: XR CHEST CLINICAL INFORMATION: Dyspnea COMPARISON: Chest x-ray August 01, 2024 TECHNIQUE: Frontal view of the chest was obtained. FINDINGS: Cardiac silhouette is normal in size. Patient is status post valvular replacement. Dual lead pacemaker noted. The lungs are adequately aerated. Patchy bilateral airspace opacities appear relatively similar. There is no gross pleural effusion. No pneumothorax. XR/XR chest 1V IMPRESSION: Similar patchy bilateral airspace disease. Electronically signed by: Fidel Green MD 08/13/2024 09:31 AM EDT
--- NOTE | ~2024-08-13 | XR_ITS ---
EXAMINATION: XR CHEST CLINICAL INFORMATION: Intubation COMPARISON: Chest x-ray on 08/14/2024 TECHNIQUE: Frontal view of the chest was obtained. FINDINGS: Interval intubation. The endotracheal tube is 0.5 cm above the kain. The cardia mediastinal silhouette is stable. There is a left chest 2-lead cardiac device. Redemonstration the bilateral diffuse alveolar and interstitial opacities. No large pleural effusions or pneumothoraces. XR/XR chest 1V IMPRESSION: 1. Endotracheal tube is 0.5 cm above the kain. Recommend retraction. 2. Redemonstration of the bilateral diffuse alveolar and interstitial opacities. Electronically signed by: Candace Smith MD 08/15/2024 01:24 PM EDT
--- NOTE | 2024-08-13 07:23 | ECG_ITS ---
Test Reason : dyspnea Blood Pressure : / mmHG Vent. Rate : 077 BPM Atrial Rate : 077 BPM P-R Int : 170 ms QRS Dur : 108 ms QT Int : 390 ms P-R-T Axes : 052 034 170 degrees QTc Int : 441 ms AV dual-paced rhythm Abnormal ECG When compared with ECG of 30-JUL-2024 16:59, possible rhythm change Referred By: Cathryn Banda Electronically Signed By:ELSY GLASGOW
--- NOTE | 2024-08-13 07:34 | ED.SOB ---
HPI - SOB/Dyspnea General Chief Complaint: Dyspnea Stated Complaint: SOB/+HOME O2, 80% RA,H/O COPD,95 ON 15LPM Source: patient, EMS and old records reviewed Mode of arrival: ambulatory Limitations: no limitations History of Present Illness ED Provider: RADHA SOLITARIO Narrative: 68 yo female with PMH of COPD on 3L NC, CHF with preserved EF, PAF on coumadin, PPM, AV replacement, SOHAIL recent admit here due to respiratory failure in possible setting of reactivity to ozempic DC on 08/03 who reports not feeling well x 3 days with dry cough, increased dyspnea, orthopnea and found by EMS cyanotic with sats 78%. Patient denies chest pain, fevers, sputum. EMS placed NRB and patient was 89%. She notes compliance with all medications and denies sick contacts. MD elicited complaint: shortness of breath Pertinent past history: COPD and congestive heart failure Onset (ago): day(s) (3) Context: recent illness Timing: progressively worsening Severity: severe Exacerbating factors: lying flat and exertion Relieving factors: oxygen, rest, bronchodilators and upright position Known history of: COPD and congestive heart failure Associated symptoms: cough and orthopnea Treatment prior to arrival: oxygen Related Data Home Medications ?Medication ?Instructions ?Recorded ?Confirmed levothyroxine 25 mcg tablet 25 mcg PO DAILY@0600 09/01/20 08/13/24 atorvastatin 20 mg tablet 20 mg PO DAILY 04/26/21 08/13/24 fluticasone fur. 200 mcg-umeclid 1 ea inhalation DAILY 03/26/23 08/13/24 62.5 mcg-vilant 25 mcg inhalat.powder (Trelegy Ellipta) albuterol sulfate 90 mcg/actuation 2 puff inhalation Q4-6H PRN 04/08/23 08/13/24 aerosol inhaler (Ventolin HFA) breathing ferrous sulfate 325 mg (65 mg 325 mg PO DAILY@1600 04/22/23 08/13/24 iron) tablet ketoconazole 2 % topical cream 1 appl topical BID PRN Itching 05/15/24 08/13/24 escitalopram oxalate 5 mg tablet 5 mg PO DAILY@1600 07/20/24 08/13/24 furosemide 40 mg tablet 40 mg PO DAILY@1600 07/20/24 08/13/24 fluticasone fur. 200 mcg-umeclid 1 ea inhalation DAILY 08/13/24 08/13/24 62.5 mcg-vilant 25 mcg inhalat.powder (Trelegy Ellipta) warfarin 2.5 mg tablet 2.5 mg PO WE 08/13/24 08/13/24 warfarin 5 mg tablet 5 mg PO SUMOTHFRSA 08/13/24 08/13/24 Previous Rx's ?Medication ?Instructions ?Recorded empagliflozin 10 mg tablet 10 mg PO DAILY #30 tabs 01/02/24 (Jardiance) cyanocobalamin (vitamin B-12) 500 500 mcg PO DAILY #90 tabs 05/20/24 mcg tablet (Vitamin B-12) digoxin 250 mcg (0.25 mg) tablet 250 mcg PO DAILY #30 tabs 08/03/24 metoprolol succinate 50 mg 50 mg PO DAILY #60 tabs 08/03/24 tablet,extended release 24 hr warfarin 5 mg tablet (Jantoven) 5 mg PO DAILY@1800 #30 tabs 08/03/24 Allergies Allergy/AdvReac Type Severity Reaction Status Date / Time amiodarone Allergy Difficulty Verified 08/13/24 07:25 Breathing Review of Systems Review of Systems: Constitutional : No Fever, No Chills ENT/Mouth : No sore throat, No Rhinorrhea, No Swallowing Difficulty Eyes: No Eye Pain, No Swelling, No Redness Cardiovascular : No Chest Pain, positive SOB, pos Orthopnea, no Edema Respiratory : pos Cough, No Sputum, No Wheezing, positive dyspnea Gastrointestinal : No Nausea, No Vomiting, No Diarrhea, No abdominal Pain, No Hematochezia, No Melena Genitourinary : No Dysuria, No Urinary Frequency, No Hematuria Musculoskeletal : No joint pain, No Myalgias Skin : No Skin Lesions, No rash Neuro : No Weakness, No Numbness, No Dizziness, No Headache Psych : No Anxiety/Panic, No Depression All other systems reviewed and are negative [facility] Past Medical History Attestation statement: The following information was validated with the patient. Source: old records reviewed Medical History Hyperprothrombinemia Abnormal CT scan, chest Acute on chronic diastolic (congestive) heart failure Atrial fibrillation with rapid ventricular response Implantable loop recorder present Persistent atrial fibrillation PAF (paroxysmal atrial fibrillation) Increasing shortness of breath Encounter for interrogation of cardiac pacemaker Subtherapeutic international normalized ratio (INR) Heart failure Cardiac pacemaker Nocturnal hypoxemia (~08/15/23) Sinus pause History of cardioversion Interstitial lung disease COPD (chronic obstructive pulmonary disease) Pulmonary nodule Atrial flutter with rapid ventricular response COPD (chronic obstructive pulmonary disease) Exercise hypoxemia Interstitial lung disease Bronchitis due to Staphylococcus aureus History of transcatheter aortic valve replacement (TAVR) Acute diastolic CHF (congestive heart failure) Paroxysmal atrial fibrillation Abnormal EKG Hypoxia Interstitial lung disease Anemia Atrial flutter Obesity (HFpEF) heart failure with preserved ejection fraction Aortic stenosis Current use of anticoagulant therapy Surgical History Status post transcatheter aortic valve replacement Hx of mitral valve replacement (~2004) Status post placement of cardiac pacemaker H/O heart surgery History of sleeve gastrectomy (~2017) Hx of transesophageal echocardiography (SHELIA) for monitoring (~2015) Hx of section Family History Family History Father No problems noted. Mother CVD (cardiovascular disease) Social History Social History Household Members: Children Housing: House Do you presently have visiting nurse or other home services: No Alcohol intake: never Comment: patient moderate fall risk refusing alarrms Patient Tobacco Use Status: Former Tobacco user Tobacco use type: Cigarette Years Smoked: 29 Smoked in Last 30 Days: No e-Cigarette/Vaping Use: Never Used Second Hand Smoke Exposure: No Use of substances other than those prescribed or required for medical reasons: No Advance Directives: Yes Advance Directives on File: Yes Advance Directives Date on File: 12/18/22 service: No Current occupational status: disabled Physical Exam Vital Signs: Vital Signs: Last Vital Signs Temp 98.0 F 08/13/24 10:04 Pulse 70 08/13/24 12:40 Resp 16 08/13/24 12:40 BP 115/43 L 08/13/24 12:40 Pulse Ox 90 L 08/13/24 12:40 O2 Del Method High Flow Nasal C annula 08/13/24 12:40 O2 Flow Rate 50 08/13/24 11:50 BMI result Body Mass Index 30.7 Appearance: Alert. Oriented X3. Mild acute distress. Eyes: Pupils equal, round and reactive to light. ENT: Pharynx normal. Neck: Normal inspection. Neck supple. CVS: Normal heart rate and rhythm. Pulses normal. Respiratory: Mild respiratory distress - tachypnea and retractions labored. Breath sounds diminished with rales in both bases Abdomen: Soft and nontender. significant lower abdominal wall bruising it is soft not tense from lovenox shot Skin: Skin warm and dry. pale skin color. Normal skin turgor. Extremities: No lower extremity edema. No calf ttp Neuro: Oriented X 3. No motor deficit. No sensory deficit. Course Course Course Narrative: LAST DOSE OF DIGOXIN YESTERDAY Reevaluation(s) Reevaluation #1: 930am oxymask 8L Reevaluation #2: Dr. Suh did see the patient in ED at this time patient is stable does not meet ICU criteria Medications Administered Discontinued Medications Generic Name Dose Route Start Last Admin Trade Name Freq PRN Reason Stop Dose Admin Acetaminophen 650 mg 08/13/24 07:47 08/13/24 07:55 Acetaminophen 325 Mg Tablet PO 08/13/24 07:48 650 mg ONCE ONE Administration Azithromycin 500 mg/ Sodium 250 mls @ 125 mls/hr 08/13/24 07:31 08/13/24 10:54 Chloride IV 08/13/24 09:30 Infused ONCE ONE Infusion Cefepime HCl 1 gm/ Sodium 50 mls @ 100 mls/hr 08/13/24 07:47 08/13/24 08:53 Chloride IV 08/13/24 08:16 Infused ONCE ONE Infusion Sodium Chloride 500 mls @ 500 mls/hr 08/13/24 10:04 08/13/24 12:20 Ns IV 08/13/24 11:03 Infused .Q1H ONE Infusion Methylprednisolone Sodium Succinate 60 mg 08/13/24 07:22 08/13/24 07:49 Methylprednisolone Sod Succ 125 Mg/2 Ml Vial IVPUSH 08/13/24 07:23 60 mg ONCE ONE Administration Potassium Chloride 20 meq 08/13/24 08:56 08/13/24 09:01 Potassium Chloride Er 20 Meq Tab.Er.Prt PO 08/13/24 08:57 20 meq ONCE ONE Administration Medical Decision Making Medical Decision Making MDM Narrative: 68 yo female with PMH of COPD on 3L NC, CHF with preserved EF, PAF on coumadin, PPM, AV replacement, SOHAIL here with c/o dry cough, orthopnea, hypoxia at home at this time will need basic labs, EKG, CXR for consolidation, empiric IV lasix ordered, low dose steroids IV, empiric azithromycin as well. On arrival given work of breathing and rales on exam will trial short course of bipap. patient found to have fever after triage - will dose with cefepime as well she denies infectious symptoms but given fever she already had cultures/lactic acid and azithromycin ordered viral panel ordered CXR ordered GIVEN EKG appearance dig level ordered to check for toxicity would need 2 vials of digibind if necessary abdominal wall bruising not tense doubt active bleed - INR 3.6 h/h stable last lovenox a few days ago Differential Diagnosis Differential Diagnoses: The differential diagnosis associated with the presentation includes CHF, ILD, COPD, bronchitis Admission/Observation Consideration of admission/observation: Escalation of care including admission/observation considered admit given presentation work up and hypoxic respiratory failure Consult Healthcare Provider Management of the patient was discussed with: [employer] 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 08/13/24 07:38 08/13/24 07:39 Labs: Lab Results 08/13/24 08/13/24 08/13/24 Range/Units 07:38 07:39 07:43 WBC 12.4 H (4.8-10.8) X10*3/uL RBC 3.95 L (4.20-5.50) X10*6/uL Hgb 11.0 L (12.0-16.0) g/dl Hct 33.9 L (37.0-47.0) % MCV 85.8 (80.0-98.0) fL MCH 27.8 (27.0-33.0) pg MCHC 32.4 (31.0-35.0) g/dl RDW 16.5 H (11.0-16.0) % Plt Count 188 (160-400) X10*3/uL MPV 12.0 (9.4-12.3) fL Immature Gran % (Auto) 0.6 H (0.0-0.4) % Neut % (Auto) 89.8 H (45-73) % Lymph % (Auto) 3.8 L (20-40) % [place] % (Auto) 5.4 (2-11) % Eos % (Auto) 0.2 (0-4) % Baso % (Auto) 0.2 (0-2) % Lymph # (Auto) 0.5 L (1.2-4.9) X10*3/uL [place] # (Auto) 0.7 (0.1-1.2) X10*3/uL Eos # (Auto) 0.0 (0.0-0.4) X10*3/uL Baso # (Auto) 0.0 (0.0-0.2) X10*3/uL Abs Immat Gran (auto) 0.07 H (0.00-0.03) X10*3/uL Absolute Neuts (auto) 11.1 H (2.0-8.3) x10*3/uL Absolute Nucleated RBC 0.000 (0.0-0.012) X10*3/uL Nucleated RBC % (auto) 0.0 (0.0-0.2) /100WBC PT (10.9-12.4) SEC INR (0.9-1.1) VBG pH 7.61 H* (7.32-7.43) VBG pCO2 29 mmHg VBG pO2 95 mmHg VBG HCO3 29 H (22-26) mmol/L VBG O2 Saturation 96.0 % VBG Base Excess 8.8 mmol/L Sodium 137 (135-145) mmol/L Potassium 3.3 (3.3-5.1) mmol/L Chloride 101 (96-108) mmol/L Carbon Dioxide 27 (22-29) mmol/L Anion Gap 12 (12-20) BUN 12 (9-16) mg/dL Creatinine 0.74 (0.5-1.4) mg/dL Estim Creat Clear Calc 70.5 Estimated GFR > 60 Random Glucose 111 (60-115) mg/dL Lactic Acid 1.0 (0.5-2.0) mmol/L Calcium 8.8 (8.4-10.2) mg/dL Magnesium 2.1 (1.6-2.6) mg/dL Total Bilirubin 1.6 H (0.0-1.0) mg/dL Direct Bilirubin 0.6 H (0.0-0.5) mg/dL AST 26 (5-31) U/L ALT 14 (0-31) U/L Alkaline Phosphatase 94 (39-117) U/L Troponin I High Sens 38.8 H D (<3.5-17.0) ng/L C-Reactive Protein 16.06 H (< or = 0.50) mg/dL B-Natriuretic Peptide 387 H (<100) pg/mL Total Protein 7.5 (6.5-8.0) g/dL Albumin 3.1 L (3.5-5.0) g/dL Lipase 7 L (8-78) U/L Hold Green Top Digoxin (0.8-2.0) ng/mL Influenza Type A (PCR) (Negative) Influenza Type B (PCR) (Negative) RSV RNA Qual (PCR) (Negative) SARS-CoV-2 RNA (RT-PCR) (Negative) 08/13/24 08/13/24 08/13/24 Range/Units 08:05 08:27 09:38 WBC (4.8-10.8) X10*3/uL RBC (4.20-5.50) X10*6/uL Hgb (12.0-16.0) g/dl Hct (37.0-47.0) % MCV (80.0-98.0) fL MCH (27.0-33.0) pg MCHC (31.0-35.0) g/dl RDW (11.0-16.0) % Plt Count (160-400) X10*3/uL MPV (9.4-12.3) fL Immature Gran % (Auto) (0.0-0.4) % Neut % (Auto) (45-73) % Lymph % (Auto) (20-40) % [place] % (Auto) (2-11) % Eos % (Auto) (0-4) % Baso % (Auto) (0-2) % Lymph # (Auto) (1.2-4.9) X10*3/uL [place] # (Auto) (0.1-1.2) X10*3/uL Eos # (Auto) (0.0-0.4) X10*3/uL Baso # (Auto) (0.0-0.2) X10*3/uL Abs Immat Gran (auto) (0.00-0.03) X10*3/uL Absolute Neuts (auto) (2.0-8.3) x10*3/uL Absolute Nucleated RBC (0.0-0.012) X10*3/uL Nucleated RBC % (auto) (0.0-0.2) /100WBC PT 42.6 H D (10.9-12.4) SEC INR 3.6 H (0.9-1.1) VBG pH (7.32-7.43) VBG pCO2 mmHg VBG pO2 mmHg VBG HCO3 (22-26) mmol/L VBG O2 Saturation % VBG Base Excess mmol/L Sodium (135-145) mmol/L Potassium (3.3-5.1) mmol/L Chloride (96-108) mmol/L Carbon Dioxide (22-29) mmol/L Anion Gap (12-20) BUN (9-16) mg/dL Creatinine (0.5-1.4) mg/dL Estim Creat Clear Calc Estimated GFR Random Glucose (60-115) mg/dL Lactic Acid (0.5-2.0) mmol/L Calcium (8.4-10.2) mg/dL Magnesium (1.6-2.6) mg/dL Total Bilirubin (0.0-1.0) mg/dL Direct Bilirubin (0.0-0.5) mg/dL AST (5-31) U/L ALT (0-31) U/L Alkaline Phosphatase (39-117) U/L Troponin I High Sens 39.7 H (<3.5-17.0) ng/L C-Reactive Protein (< or = 0.50) mg/dL B-Natriuretic Peptide (<100) pg/mL Total Protein (6.5-8.0) g/dL Albumin (3.5-5.0) g/dL Lipase (8-78) U/L Hold Green Top See Note Digoxin 2.4 H* (0.8-2.0) ng/mL Influenza Type A (PCR) NEGATIVE (Negative) Influenza Type B (PCR) NEGATIVE (Negative) RSV RNA Qual (PCR) NEGATIVE (Negative) SARS-CoV-2 RNA (RT-PCR) NEGATIVE (Negative) Independent Interpretation I performed an independent interpretation of an: EKG and Plain X-Ray Interpretation: Rate: 77 Rhythm: av paced [place]: normal Normal P waves. normal Normal QRS complex. ST T wave : no SANGEETA, inverted t waves I and aVL, scooping ST T waves in II, V6, slight ST depressions in III, aVF, V3-V5 qTC: 441 prior studies: st depressions more noticeable ?dig toxicity The study has been interpreted contemporaneously by me. . Radiology Impression Discussion of test interpretation with radiology: I have reviewed the radiologist's reading. Independent Historian Clinical information obtained from an independent historian. History obtained from or confirmed by: EMS External Record Review External record reviewed: Inpatient record and Outpatient record Critical Care Time Critical Care Time Critical Care Time: Yes Total Critical Care Time: 60 Attestation: review of records, NIPPV, VBG, admission, repeat assessments, consult, admission I attest to this time spent taking care of the patient Discharge Plan Discharge Clinical Impression: Elevated digoxin level, Acute hypoxic respiratory failure, Supratherapeutic INR Fever Qualifiers: Fever type: unspecified Qualified Code(s): R50.9 - Fever, unspecified Pneumonia Qualifiers: Pneumonia type: due to unspecified organism Laterality: right Lung location: unspecified part of lung Qualified Code(s): J18.9 - Pneumonia, unspecified organism Patient Disposition: Admitted As Inpatient Print Language: [place]i
[2024-08-13 07:42] LABS: MANUAL DIFF FLAG NO
[2024-08-13 07:48] LABS: Basophils Percent Auto 0.2 % (0-2); Eosinophils Percent Auto 0.2 % (0-4); Hematocrit 33.9 % (37.0-47.0); Imm Gran Abs Auto 0.07 X10*3/uL (0.00-0.03); Imm Gran Pct Auto 0.6 % (0.0-0.4); Lymphocytes Absolute Auto 0.5 X10*3/uL (1.2-4.9); Lymphocytes Percent Auto 3.8 % (20-40); Mean Corpuscular HGB Conc 32.4 g/dl (31.0-35.0); Mean Corpuscular Hemoglobin 27.8 pg (27.0-33.0); Mean Corpuscular Volume 85.8 fL (80.0-98.0); Monocytes Absolute Auto 0.7 X10*3/uL (0.1-1.2); Monocytes Percent Auto 5.4 % (2-11); Neutrophils Absolute Auto 11.1 x10*3/uL (2.0-8.3); Neutrophils Percent Auto 89.8 % (45-73); Platelet Count 188 X10*3/uL (160-400); Red Blood Count 3.95 X10*6/uL (4.20-5.50); Red Cell Distribution Width 16.5 % (11.0-16.0); Venous Blood Gas Refer to POC result; White Blood Count 12.4 X10*3/uL (4.8-10.8)
[2024-08-13 07:48] LABS: VBG Base Excess 8.8 mmol/L; VBG HCO3 29 mmol/L (22-26); VBG pCO2 29 mmHg; VBG pH 7.61 (7.32-7.43); VBG pO2 95 mmHg
[2024-08-13] MEDS: methylPREDNISolone Sod Succ 125 MG/2 ML VIAL 60 MG IVPUSH (07:49)
[2024-08-13] MEDS: Acetaminophen 325 MG TABLET 650 MG PO (07:55)
[2024-08-13 08:01] LABS: Alanine Aminotransferase 14 U/L (0-31); Albumin Level 3.1 g/dL (3.5-5.0); Alkaline Phosphatase 94 U/L (39-117); Anion Gap 12 (12-20); Aspartate Amino Transferase 26 U/L (5-31); Bilirubin Direct 0.6 mg/dL (0.0-0.5); Bilirubin Total 1.6 mg/dL (0.0-1.0); Blood Urea Nitrogen 12 mg/dL (9-16); Calcium 8.8 mg/dL (8.4-10.2); Carbon Dioxide 27 mmol/L (22-29); Chloride 101 mmol/L (96-108); Creatinine Clr Calc Pharmacy 70.5; Estimated Glomerular Filt Rate > 60; Glucose Random 111 mg/dL (60-115); Lipase 7 U/L (8-78); Magnesium 2.1 mg/dL (1.6-2.6); Potassium 3.3 mmol/L (3.3-5.1); Sodium 137 mmol/L (135-145); Total Protein 7.5 g/dL (6.5-8.0)
[2024-08-13 08:07] LABS: B Type Natriuretic Peptide 387 pg/mL (<100)
[2024-08-13 08:09] LABS: Troponin-I High Sensitivity 38.8 ng/L (<3.5-17.0)
[2024-08-13] MEDS: cefEPime HCl 1 GM in 0.9 % Sodium Chloride 50 ML IV (08:16)
--- NOTE | 2024-08-13 08:34 | PC.NURSE ---
Pt presents to ED via EMS for SOB X3 days worsening. Found to be 78% and cyanotic by EMS, on 3L o2 normally. EMS placed pt on NRB with some improvements. Pt noted to be 84-87% on NRB, RT at bedside. Pt is alert and oriented, breathing labored and increased RR 28-36. Skin hot and clammy. Pt placed on CPAP by RT. Paced rhythm on bedside monitor. Pt had significant improvement with cpap, sat improved to 80-96%. IV placed and pt medicated per DEC. rectal temp 101.3. Pt denies pain or CP.
[2024-08-13] MEDS: Azithromycin 500 MG in 0.9 % Sodium Chloride 250 ML 125 MG IV (08:41)
[2024-08-13 08:53] LABS: Digoxin 2.4 ng/mL (0.8-2.0)
[2024-08-13 09:00] LABS: Influenza A PCR NEGATIVE (Negative); Influenza B PCR NEGATIVE (Negative); Resp Syncy Virus RNA Qual PCR NEGATIVE (Negative); SARS COV2 PCR INHOUSE NEGATIVE (Negative)
[2024-08-13] MEDS: Potassium Chloride ER 20 MEQ TAB.ER.PRT PO (09:01)
--- NOTE | 2024-08-13 09:26 | PC.NURSE ---
Pt switched from CPAP to 8L O2 Oxymask by RT, maintaining sats
[2024-08-13 09:50] LABS: INTERNATIONAL NORM RATIO 3.6 (0.9-1.1); Prothrombin Time 42.6 SEC (10.9-12.4)
[2024-08-13 10:08] LABS: Troponin-I High Sensitivity 39.7 ng/L (<3.5-17.0)
[2024-08-13] MEDS: 0.9 % Sodium Chloride 500 ML IV (10:09)
--- NOTE | 2024-08-13 10:17 | PC.NURSE ---
Pt reports she overall feels much better , breathing more even and unlabored, resting in bed.
--- NOTE | 2024-08-13 11:33 | PC.NURSE ---
RT at bedside eval due to sats intermittently dropping into low 80s
--- NOTE | 2024-08-13 11:48 | PM.IMHP ---
History of Present Illness Date of Service: 08/13/24 Attending physician on admission: Marely Crocker Chief Complaint: SOB Pt is a 68-year-old female with a PMH significant for paroxysmal?AFib/flutter, HFpEF, aortic stenosis, s/p St Alex valve 2005 on Coumadin, s/p TAVR 08/2022, hx of amiodarone toxicity, ILD, COPD on 3L home NC, pacemaker in place, and SOHAIL non-compliant w/CPAP who presents to the ED with?increased SOB, fatigue, and cough x3 days. Patient was recently hospitalized from 07/28-08/03 for acute on chronic respiratory failure with hypoxia secondary to acute hypersensitivity reaction possibly due to Ozempic vs amiodarone. Patient was seen and evaluated by Cardiology who recommended discontinuing amiodarone, increasing metoprolol, and starting on digoxin 250 mcg. Patient reports initially did well, until 3 days ago when she productive cough, SOB, KRAUS, and fatigue that was not alleviated by home meds or home O2. Also had subjective fever and chills since yesterday. Symptoms worsened this morning and patient called EMS, who reported finding her cyanotic and satting at 78% on RA, which improved 89% on a non-rebreather. Patient was placed on BiPAP in the ED and then transitioned to OxyMask, though continued to desat and was then placed on high-flow to good effect. Pt denies chest pain/pressure or palpitations. In the ED pt was febrile up to 101.3, tachypneic to 39, and in respiratory distress. Labs were significant for leukocytosis 12.4, H&H 11.0/33.9, INR 3.6, bilirubin 1.6, initial troponin 38.8 with repeat flat at 39.7, CRP 16.06, BNP 387, albumin 3.1, and digoxin elevated at 2.4. Tested negative for flu, COVID, RSV. CXR showed similar patchy bilateral airspace disease. CTA of chest showed extensive patchy and consolidative airspace disease slightly worsened from prior 2 weeks ago. EKG demonstrated AP dual paced rhythm with diffuse minor ST depressions. Pt was treated with Solu-Medrol, IVF, potassium chloride, acetaminophen, cefepime, and azithromycin. Pt will be admitted to the hospital for treatment and further evaluation of acute on chronic hypoxic respiratory failure in the setting pneumonia with sepsis. Review of Systems Review of Systems: Yes all other systems are reviewed and are negative [facility] Medical History Hyperprothrombinemia Abnormal CT scan, chest Acute on chronic diastolic (congestive) heart failure Atrial fibrillation with rapid ventricular response Implantable loop recorder present Persistent atrial fibrillation PAF (paroxysmal atrial fibrillation) Increasing shortness of breath Encounter for interrogation of cardiac pacemaker Subtherapeutic international normalized ratio (INR) Heart failure Cardiac pacemaker Nocturnal hypoxemia (~08/15/23) Sinus pause History of cardioversion Interstitial lung disease COPD (chronic obstructive pulmonary disease) Pulmonary nodule Atrial flutter with rapid ventricular response COPD (chronic obstructive pulmonary disease) Exercise hypoxemia Interstitial lung disease Bronchitis due to Staphylococcus aureus History of transcatheter aortic valve replacement (TAVR) Acute diastolic CHF (congestive heart failure) Paroxysmal atrial fibrillation Abnormal EKG Hypoxia Interstitial lung disease Anemia Atrial flutter Obesity (HFpEF) heart failure with preserved ejection fraction Aortic stenosis Current use of anticoagulant therapy Family History Father No problems noted. Mother CVD (cardiovascular disease) Surgical History Status post transcatheter aortic valve replacement Hx of mitral valve replacement (~2004) Status post placement of cardiac pacemaker H/O heart surgery History of sleeve gastrectomy (~2017) Hx of transesophageal echocardiography (SHELIA) for monitoring (~2015) Hx of section Social History Household Members: Children Household Members Other:: daughter Housing: House Do you presently have visiting nurse or other home services: Yes Alcohol intake: never Comment: patient moderate fall risk refusing alarrms Patient Tobacco Use Status: Former Tobacco user Tobacco use type: Cigarette Cigarettes Per Day: 10 Years Smoked: 35 Smoked in Last 30 Days: No e-Cigarette/Vaping Use: Never Used Patient Interested in Nicotine Replacement: No Patient Given Instructions on How to Stop Smoking: No Second Hand Smoke Exposure: No Use of substances other than those prescribed or required for medical reasons: No Currently Displaying Signs/Symptoms of Drug Intoxication Withdrawal: No Any prior treatment program specific to substance use: No Have you been hit, kicked, punched, or otherwise hurt by someone within the past year? If so, by whom?: No Do you feel safe in your current relationship?: Yes Is there a partner from a previous relationship who is making you feel unsafe now?: No Are you made to feel afraid or neglected: No Spiritual Healthcare Practices: oriental orthodox Advance Directives: Yes Advance Directives on File: Yes Advance Directives Date on File: 12/18/22 Do you have a plan to hurt others: No Plan Recently lost weight without trying: Yes How much weight loss: 2-13 pounds Eating poorly because of decreased appetite: No Nutrition screen score: 3 Patient : No : No Poor oral hygiene: No service: No Current occupational status: disabled Meds Allergies Allergy/AdvReac Type Severity Reaction Status Date / Time amiodarone Allergy Difficulty Verified 08/13/24 07:25 Breathing Home Medications ?Medication ?Instructions ?Recorded ?Confirmed ?Last Taken ?Type levothyroxine 25 mcg tablet 25 mcg PO DAILY@0600 09/01/20 08/13/24 08/12/24 History atorvastatin 20 mg tablet 20 mg PO DAILY 04/26/21 08/13/24 08/12/24 History fluticasone fur. 200 mcg-umeclid 1 ea inhalation DAILY 03/26/23 08/13/24 08/12/24 History 62.5 mcg-vilant 25 mcg inhalat.powder (Trelegy Ellipta) albuterol sulfate 90 mcg/actuation 2 puff inhalation Q4-6H PRN 04/08/23 08/13/24 07/20/24 07:00 History aerosol inhaler (Ventolin HFA) breathing ferrous sulfate 325 mg (65 mg 325 mg PO DAILY@1600 04/22/23 08/13/24 08/12/24 History iron) tablet ketoconazole 2 % topical cream 1 appl topical BID PRN Itching 05/15/24 08/13/24 07/20/24 07:00 History escitalopram oxalate 5 mg tablet 5 mg PO DAILY@159907/20/24 08/13/24 08/12/24 History furosemide 40 mg tablet 40 mg PO DAILY@1600 07/20/24 08/13/24 08/12/24 History fluticasone fur. 200 mcg-umeclid 1 ea inhalation DAILY 08/13/24 08/13/24 08/12/24 History 62.5 mcg-vilant 25 mcg inhalat.powder (Trelegy Ellipta) warfarin 2.5 mg tablet 2.5 mg PO WE 08/13/24 08/13/24 08/12/24 History warfarin 5 mg tablet 5 mg PO SUMOTHFRSA 08/13/24 08/13/24 08/10/24 History Physical Exam Vital Signs and Narrative: Vital Signs: Last Vital Signs Temp 98.0 F 08/13/24 10:04 Pulse 68 08/13/24 10:04 Resp 24 H 08/13/24 10:04 BP 96/40 L 08/13/24 10:04 Pulse Ox 90 L 08/13/24 10:31 O2 Del Method Oxymask 08/13/24 10:31 O2 Flow Rate 12 08/13/24 10:31 BMI result Body Mass Index 30.7 Constitutional: Awake, alert, in no acute distress. Mental Status: Oriented to person, place and time. Eyes: Pupils are equal, round, and reactive to light. Ear, Nose, and Throat: Oropharynx clear, mucous membranes moist. Ears and nose without deformities. Trachea midline. Respiratory: Diminished w/bibasilar rales. On high-flow. Speaking in complete sentences. Mild increased work of breathing. Cardiovascular: S1, S2 regular. Mechanical valve click. Gastrointestinal: Abdomen soft, non-distended, non-tender. Normal bowel sounds. Diffuse ecchymosis of lower abd secondary to Lovenox injections. Neurologic: Cranial nerves II-XII are grossly intact bilaterally. No focal neurological deficits. Moves all extremities spontaneously. Skin: Warm, dry. Extremities: No edema. Psychiatric: Normal mood and affect. Results Labs 08/13/24 07:38 08/13/24 07:39 Labs: Laboratory Results - last 24 hr 08/13/24 08/13/24 08/13/24 07:38 07:39 07:43 MCV 85.8 MCH 27.8 MCHC 32.4 RDW 16.5 H Plt Count 188 MPV 12.0 Immature Gran % (Auto) 0.6 H Neut % (Auto) 89.8 H Lymph % (Auto) 3.8 L Arthur % (Auto) 5.4 Eos % (Auto) 0.2 Baso % (Auto) 0.2 Lymph # (Auto) 0.5 L Arthur # (Auto) 0.7 Eos # (Auto) 0.0 Baso # (Auto) 0.0 Abs Immat Gran (auto) 0.07 H Absolute Neuts (auto) 11.1 H Absolute Nucleated RBC 0.000 Nucleated RBC % (auto) 0.0 PT INR VBG pH 7.61 H* VBG pCO2 29 VBG pO2 95 VBG HCO3 29 H VBG O2 Saturation 96.0 VBG Base Excess 8.8 Anion Gap 12 Estim Creat Clear Calc 70.5 Estimated GFR > 60 Random Glucose 111 Lactic Acid 1.0 Calcium 8.8 Magnesium 2.1 Total Bilirubin 1.6 H Direct Bilirubin 0.6 H AST 26 ALT 14 Alkaline Phosphatase 94 Troponin I High Sens 38.8 H D B-Natriuretic Peptide 387 H Total Protein 7.5 Albumin 3.1 L Lipase 7 L Hold Green Top Digoxin Influenza Type A (PCR) Influenza Type B (PCR) RSV RNA Qual (PCR) SARS-CoV-2 RNA (RT-PCR) 08/13/24 08/13/24 08/13/24 08:05 08:27 09:38 MCV MCH MCHC RDW Plt Count MPV Immature Gran % (Auto) Neut % (Auto) Lymph % (Auto) Arthur % (Auto) Eos % (Auto) Baso % (Auto) Lymph # (Auto) Arthur # (Auto) Eos # (Auto) Baso # (Auto) Abs Immat Gran (auto) Absolute Neuts (auto) Absolute Nucleated RBC Nucleated RBC % (auto) PT 42.6 H D INR 3.6 H VBG pH VBG pCO2 VBG pO2 VBG HCO3 VBG O2 Saturation VBG Base Excess Anion Gap Estim Creat Clear Calc Estimated GFR Random Glucose Lactic Acid Calcium Magnesium Total Bilirubin Direct Bilirubin AST ALT Alkaline Phosphatase Troponin I High Sens 39.7 H B-Natriuretic Peptide Total Protein Albumin Lipase Hold Green Top See Note Digoxin 2.4 H* Influenza Type A (PCR) NEGATIVE Influenza Type B (PCR) NEGATIVE RSV RNA Qual (PCR) NEGATIVE SARS-CoV-2 RNA (RT-PCR) NEGATIVE Imaging Radiologist's Impressions: Impressions Chest X-Ray 08/13/24 07:23 IMPRESSION: Similar patchy bilateral airspace disease. Electronically signed by: Fidel Green MD 08/13/2024 09:31 AM EDT Assessment and Plan (1) Pneumonia: Qualifiers: Laterality: right Lung location: unspecified part of lung Pneumonia type: due to unspecified organism Qualified Code(s): J18.9 - Pneumonia, unspecified organism Status: Acute (2) Acute on chronic respiratory failure with hypoxia: Status: Resolved Plan Pt is a 68-year-old female with a PMH significant for paroxysmal?AFib/flutter, HFpEF, aortic stenosis, s/p St Alex valve 2005 on Coumadin, s/p TAVR 08/2022, ILD, COPD on 3L home NC, pacemaker in place, and SOHAIL non-compliant w/CPAP who presents to the ED with?increased SOB, fatigue, and cough x3 days. Pt will be admitted to the hospital for treatment and further evaluation of acute on chronic hypoxic respiratory failure in the setting pneumonia with sepsis. Acute on chronic hypoxic respiratory failure in the setting of pneumonia with sepsis SOB, fatigue, cough, EMS found cyanotic and satting in 70s on RA, CT showing worsening extensive patchy and consolidative airspace disease Pt meets sepsis criteria: Fever tachypnea, leukocytosis; lactic acid WNL at 1.0 Patient given IVF and started on broad-spectrum antibiotics in the ED Will treat with cefepime and azithromycin, started 08/13/2024 Continue high-flow as necessary, goal of 90-92%, wean to home 3L as tolerated Pulmonary consult Follow cultures Monitor respiratory status Elevated digoxin levels Recently started on digoxin during last admission Levels slightly elevated at 2.4 Hold digoxin Cardiology consult Abnormal EKG EKG with diffuse slight ST depressions in With serial troponins elevated but flat at 38.8 and 39.7 Patient asymptomatic Likely secondary to increased demand Cardiology consult Monitor on telemetry Mechanical mitral valve INR mildly supratherapeutic at 3.6; goal 2.5-3.5 Will hold Coumadin today, check INR daily Paroxysmal AFib Hold digoxin as above Continue metoprolol Hold Coumadin as above HFpEF Does not appear to be in acute exacerbation Continue home Lasix, Jardiance COPD Not in acute exacerbation Continue home inhalers Hypothyroidism Continue levothyroxine Mood disorder Continue escitalopram Full Code Attending:?Dr. Crocker DVT Prophylaxis: On Coumadin Pt will require a hospitalization of at least two nights for treatment of?acute on chronic hypoxic respiratory failure in the setting of pneumonia with sepsis. Given patient's increased O2 requirements necessitating being on high-flow as well as meeting sepsis criteria, patient will require hospital level care for administration of supplemental oxygen, IV antibiotics, and close monitoring of respiratory and cardiac function. Quality Stroke Does the patient have a stroke diagnosis?: No VTE Prior VTE?: No VTE Risk Level:: Medical - moderate - high VTE Device Contraindication: Treatment Not Indicated VTE Drug Contraindication: N/A - Med Ordered
--- NOTE | 2024-08-13 12:03 | PHA.MEDREC ---
Addendum entered by Shiraz Medeiros [facility] 08/13/24 12:46: MED REC CHECKED BY [facility] Original Note: Pharmacy Consult ? Medication Reconciliation Pharmacy has completed the medication reconciliation. Spoke to patient to confirm med list. Patient was very short of breath to speak, however she had a discharge packet from Last visit 08/03/24. Patient confirm he is no longer taking Enoxaparin 80 mg, Amiodarone 200 mg. Patient confirmed she took Warfarin 2.5 mg 08/12/24, 5 mg 08/11/24, none on 08/11/24, and 5 mg on 08/10/24. she isn't sure what dose she needs to be on moving forward because her nurse stated her INR was 3.8. Utilized discharge packet to confirm other medication. Metoprolol Succ has been increased to 50 mg daily
[2024-08-13 12:36] LABS: C Reactive Protein 16.06 mg/dL (< or = 0.50)
--- NOTE | 2024-08-13 12:50 | PM.EVENT ---
Event Note Date of Service: 08/13/24 Event Note: Patient is a 68 Y F w/ SOHAIL non-compliant w/ CPAP, COPD, and ILD p/w signs/symptoms suggestive of pneumonia, found to have acute on chronic hypoxia, placed on HFNC; upon evaluation, patient awake, alert, active, speaking in full sentences, satting low 90s, w/ blood pressure 110s/50s, similar to baseline, and w/ grossly reassuring laboratories; at this juncture, patient may be safely managed on floor; agree w/ antibiotics, HFNC, and CT C; recommendations include judicious use of IVFs, maintain net negative I/O, and judicious use of any sedating medications Time Spent With Patient Time: Total time managing care of this patient today ____ minutes.
[2024-08-13 13:08] LABS: Erythrocyte Sedimentation Rate 91 MM/HR (0-20)
--- NOTE | 2024-08-13 14:55 | PC.NURSE ---
Late entry: pt was placed on HFNC 50L and is tolerating well. SPO2 > 90% and pt resting in bed
[2024-08-13] MEDS: cefEPime HCl 2 GM in 0.9 % Sodium Chloride 50 ML IV (16:38)
[2024-08-13] MEDS: 0.9 % Sodium Chloride Flush 3 ML SYRINGE IVFLUSH (16:46)
[2024-08-13] MEDS: Escitalopram Oxalate 5 MG TABLET PO (17:46)
[2024-08-13] MEDS: Furosemide 40 MG TABLET PO (17:46)
[2024-08-13] MEDS: guaiFENesin 100 MG/5 ML 5 ML LIQUID PO (21:36)
[2024-08-13] MEDS: Melatonin 3 MG TABLET 6 MG PO (22:34)
[2024-08-13] MEDS: cefEPime HCl/D5W 2 GM/50 ML PIGGYBACK IV (22:34)
[2024-08-14] VITALS (53 sets, daily range): BP systolic 74–129; BP diastolic 28–62; PULSE 70–99; RESP 11–43; TEMP 36.4–38.4; O2SAT 55–97; BMI 32.4
[2024-08-14] MEDS: LORazepam 2 MG/ML VIAL 1 MG IVPUSH (02:22)
--- NOTE | 2024-08-14 03:30 | PM.EVENT ---
Event Note Date of Service: 08/14/24 Event Note: Nurse reported hypoxia and tachypnea. Patient dyspneic and using accessory respiratory muscles. Patient was satting 80% on high-flow nasal cannula 40 L 100% FiO2 +OxyMask 15 L. Switched to non-rebreather. Ordered morphine for dyspnea. Also ordered ABG and chest x-ray. Discussed with Dr. Suh and patient to be transferred to ICU for closer monitoring and management of acute hypoxic respiratory failure. Discussed with patient at bedside Time Spent With Patient Time: Total time managing care of this patient today ____ minutes.
[2024-08-14] MEDS: Morphine Sulfate 4 MG/ML CARTRIDGE IVPUSH (03:39)
[2024-08-14 03:55] LABS: ABG Base Excess 3.4 mmol/L; ABG HCO3 26 mmol/L (22-26); ABG pCO2 32 mmHg (32-45); ABG pO2 64 mmHg (83-108)
[2024-08-14 04:14] LABS: B Type Natriuretic Peptide 355 pg/mL (<100)
[2024-08-14 04:21] LABS: ABG Refer to POC result
[2024-08-14] MEDS: Furosemide 40 MG/4 ML VIAL IVPUSH ×3 (04:21→17:37)
--- NOTE | 2024-08-14 04:21 | PC.NURSE ---
Beginning of shift pt AOx3, able to make needs known. She was on high flow nc 50L 50%. She became anxious and desated, this RN and RT bedside approx 2039. At this time high flow placed at 40L 70%. Pt was offered anti anxiety medication which she refused. Throughout this RN's shift pt would randomly desat, then become anxious, requiring RT and this RN's intervention. Approx 0145 RT increased O2 to 80%, approx 0200 O2 was increased to 100% (40L remained at all increases) as pt had desated to the 60s then the 50s. Approx 0230 pt had an oxy mask placed over the high flow nc at 15L as she had removed the high flow and desated to 25%. Pt appeared to have a change of mental status. This RN asked orientation questions which pt answered correctly but she was showing signs of confusion. She was insisting on sitting on the side of the bed, wanted to get up and walk. RT bedside again. Nursing sandblaster supervisor and charger operator helper made aware of situation, also came bedside. Pt agreed to take anti anxiety medication (see MAR for administration). D/t pt removing medical equipment and signs of confusion, this RN requested a sitter from the nursing sandblaster supervisor and one was sent approx 0300. Pt continued to have increased WOB and desating, hospitalist asked to come evaluate. bedside, ordered stat CXR, blood gas, morphine, wanted oxy mask switched out for non rebreather which was done also at 15L; pt continued to sat in the low to mid 80s. After CXR was done, this RN was alerted by MD and nursing sandblaster supervisor that pt would be transferred to ICU. Report given, transported to ICU w/charger operator helper and RT.
[2024-08-14 05:04] LABS: Hematocrit 31.4 % (37.0-47.0); Hemoglobin 10.1 g/dl (12.0-16.0); Mean Corpuscular HGB Conc 32.2 g/dl (31.0-35.0); Mean Corpuscular Hemoglobin 27.7 pg (27.0-33.0); Mean Corpuscular Volume 86.3 fL (80.0-98.0); Mean Platelet Volume 12.2 fL (9.4-12.3); Platelet Count 184 X10*3/uL (160-400); Red Blood Count 3.64 X10*6/uL (4.20-5.50); Red Cell Distribution Width 16.6 % (11.0-16.0); White Blood Count 16.8 X10*3/uL (4.8-10.8)
[2024-08-14 05:11] LABS: INTERNATIONAL NORM RATIO 3.6 (0.9-1.1)
[2024-08-14 05:21] LABS: Anion Gap 13 (12-20); Blood Urea Nitrogen 16 mg/dL (9-16); Carbon Dioxide 26 mmol/L (22-29); Chloride 103 mmol/L (96-108); Creatinine Clr Calc Pharmacy 69.5; Estimated Glomerular Filt Rate > 60; Glucose Random 113 mg/dL (60-115); Potassium 3.2 mmol/L (3.3-5.1); Sodium 139 mmol/L (135-145)
[2024-08-14] MEDS: Levothyroxine Sodium 25 MCG TABLET PO (05:27)
[2024-08-14] MEDS: vancomycin/NS 2,000 MG/500 ML PLAST..BAG 250 MG IV (05:27)
[2024-08-14] MEDS: Acetaminophen 325 MG TABLET 650 MG PO (05:27)
[2024-08-14 05:45] LABS: Magnesium 1.9 mg/dL (1.6-2.6); Phosphorus 2.8 mg/dL (2.7-4.5)
[2024-08-14] MEDS: Norepinephrine Bitartrate/D5W 8 MG/250 ML PLAST..BAG 7.14 MG IVCONT (06:09)
--- NOTE | 2024-08-14 06:45 | PHA.PROG ---
Admission Date/Time: August 13, 2024 13:29 Indication: respirtory Weight in k.4 kg Adjusted body weight in Kg: [place] body weight in Kg: Obesity Dosing Indication % IBW: BMI 32.4 Serum Creatinine - Last 168 Hours 08/13/24 08/14/24 07:39 04:37 Creatinine 0.74 0.75 Estimated CrCl and GFR - Last 168 Hours 08/13/24 08/14/24 07:39 04:37 Estim Creat Clear Calc 70.5 69.5 Estimated GFR > 60 > 60 Vancomycin Loading Dose: 2000 x1 Current Vancomycin Dosing Regimen: 1000mg Q12H Vancomycin Monitoring using AUC goal of 400 - 600 range with trough as surrogate marker: 544 Date and Time for next Vancomycin Level to be drawn: 08/15 @1600 Pharmacist Comments on Vancomycin Plan: renal function stable, starting with 1000mg Q12H to get therapeutic quicker, then to be adjusted based on trough. predicted trough 17.5. Vancomycin dosing will take advantage of [employer] as a clinical decision support tool that uses Bayesian modeling to calculate individual patient's pharmacokinetic parameters and forecast the patient's drug concentration time course with the target goal AUC 24 range of 400 - 600 mg/L/hr.
[2024-08-14 07:47] LABS: Lactic Acid 1.3 mmol/L (0.5-2.0)
[2024-08-14] MEDS: cefEPime HCl/D5W 2 GM/50 ML PIGGYBACK IV ×3 (08:32→23:24)
[2024-08-14] MEDS: 0.9 % Sodium Chloride Flush 3 ML SYRINGE IVFLUSH ×3 (08:33→21:06)
--- NOTE | 2024-08-14 08:38 | P.PNCC_ITS ---
Subjective Subjective Date of Service: 08/14/24 Interval History: admitted ICU overnight for worsening acute on chronic respiratory failure Critical Care Time (minutes): 60 Physical Exam 2 Vital Signs: Vital Signs: Last Vital Signs Temp 99.0 F 08/14/24 08:00 Pulse 79 08/14/24 08:02 Resp 24 H 08/14/24 08:00 BP 103/36 L 08/14/24 08:02 Pulse Ox 95 08/14/24 08:00 O2 Del Method High Flow Nasal C annula 08/14/24 08:00 O2 Flow Rate 40 08/14/24 08:00 FiO2 100 08/14/24 08:00 BMI result Body Mass Index 32.4 Const: Other: exceedingly anxious, and minimally re-directable General: no acute distress, well developed, alert, awake and Physically active Orientation/consciousness: patient oriented x3 HEENT: Head: Yes normal to inspection, Yes normocephalic and Yes atraumatic Eyes: General: appearance normal, both eyes and all related structures Neck: Neck: Yes normal visual inspection, Yes full ROM, Yes no meningeal signs, Yes trachea midline and Yes supple Chest: Chest palpation & inspection: normal inspection of the chest Resp: Other: appreciable rales, L greater than R; some appreciable rhonchi; no appreciable wheezing Effort & Inspection: normal respiratory effort Cardio: Rate: regular rate Rhythm: regular rhythm GI: Inspection: Yes normal to inspection, No Abdominal wall edema and No distended Palpation (GI): Soft to palpation, not firm, nontender, no guarding and not rigid Skin: General skin exam: no rashes or lesions noted Neuro: General: patient oriented x3, tone normal, moves all extremities, no meningeal signs and no focal motor deficits Extrem: General: Yes normal to inspection, Yes full ROM, Yes capillary refill normal and Yes no clubbing, cyanosis or edema Psych: Other: exceedingly anxious, as described above Objective Data Labs 08/14/24 04:37 08/14/24 04:37 Labs: Laboratory Results - last 24 hr 08/13/24 08/13/24 08/13/24 07:39 08:05 08:27 WBC RBC Hgb Hct MCV MCH MCHC RDW Plt Count MPV Absolute Nucleated RBC Nucleated RBC % (auto) ESR 91 H PT INR O2 Saturation ABG pH at Pt Temp ABG pCO2 at Pt Temp ABG pO2 at Pt Temp ABG HCO3 ABG Base Excess (Actual) Sodium Potassium Chloride Carbon Dioxide Anion Gap BUN Creatinine Estim Creat Clear Calc Estimated GFR Random Glucose Lactic Acid Calcium Phosphorus Magnesium Troponin I High Sens C-Reactive Protein 16.06 H B-Natriuretic Peptide Procalcitonin 0.10 Digoxin 2.4 H* Influenza Type A (PCR) NEGATIVE Influenza Type B (PCR) NEGATIVE RSV RNA Qual (PCR) NEGATIVE SARS-CoV-2 RNA (RT-PCR) NEGATIVE 08/13/24 08/14/24 08/14/24 09:38 03:44 04:37 WBC 16.8 H RBC 3.64 L Hgb 10.1 L Hct 31.4 L MCV 86.3 MCH 27.7 MCHC 32.2 RDW 16.6 H Plt Count 184 MPV 12.2 Absolute Nucleated RBC 0.000 Nucleated RBC % (auto) 0.0 ESR PT 42.6 H D 42.0 H INR 3.6 H 3.6 H O2 Saturation 90.0 ABG pH at Pt Temp 7.50 H ABG pCO2 at Pt Temp 32 ABG pO2 at Pt Temp 64 L ABG HCO3 26 ABG Base Excess (Actual) 3.4 Sodium 139 Potassium 3.2 L Chloride 103 Carbon Dioxide 26 Anion Gap 13 BUN 16 Creatinine 0.75 Estim Creat Clear Calc 69.5 Estimated GFR > 60 Random Glucose 113 Lactic Acid Calcium 9.0 Phosphorus 2.8 Magnesium 1.9 Troponin I High Sens 39.7 H C-Reactive Protein B-Natriuretic Peptide 355 H Procalcitonin Digoxin Influenza Type A (PCR) Influenza Type B (PCR) RSV RNA Qual (PCR) SARS-CoV-2 RNA (RT-PCR) 08/14/24 07:23 WBC RBC Hgb Hct MCV MCH MCHC RDW Plt Count MPV Absolute Nucleated RBC Nucleated RBC % (auto) ESR PT INR O2 Saturation ABG pH at Pt Temp ABG pCO2 at Pt Temp ABG pO2 at Pt Temp ABG HCO3 ABG Base Excess (Actual) Sodium Potassium Chloride Carbon Dioxide Anion Gap BUN Creatinine Estim Creat Clear Calc Estimated GFR Random Glucose Lactic Acid 1.3 Calcium Phosphorus Magnesium Troponin I High Sens C-Reactive Protein B-Natriuretic Peptide Procalcitonin Digoxin Influenza Type A (PCR) Influenza Type B (PCR) RSV RNA Qual (PCR) SARS-CoV-2 RNA (RT-PCR) Progress Note: A&P Assessment and plan (1) Acute and chronic respiratory failure: Status: Acute (2) Interstitial lung disease: Status: Acute (3) COPD (chronic obstructive pulmonary disease): Status: Acute (4) Obstructive sleep apnea: Status: Acute Plan Patient is a 68 Y F w/ aortic stenosis s/p mechanical valve on warfarin, s/p TAVR, paroxysmal atrial fibrillation, c/b amiodarone toxicity and ILD, s/p pacemaker, and COPD c/b chronic respiratory failure on 3L NC and SOHAIL non- complant w/ CPAP, presenting initially to the emergency department on 08/13 w/ dyspnea, cough, found to have acute on chronic respiratory failure, placed on HFNC, treated empirically for pneumonia, admitted medicine; on 08/14 AM, patient developed worsening respiratory failure, admitted ICU N: no acute issues CV: hypotension, likely distributive; norepinephrine gtt; wean as tolerated; paroxysmal atrial fibrillation; aortic stenosis s/p mechanical valve R: acute on chronic respiratory failure; exceedingly co-morbid w/ ILD, COPD, and c/f pneumonia, pulmonary edema; appreciate pulmonology recommendations; empiric antibiotics, diuresis GI: diabetic diet : no acute issues; diuresis as tolerated H: no acute issues; to hold warfarin for possible central venous catheter placement ID: empiric anitbiotics, c/f pneumonia E: diabetes mellitus, insulin regimen P: appreciable anxiety Quality Stroke Does the patient have a stroke diagnosis?: No VTE Prior VTE?: No VTE Risk Level:: Medical - moderate - high VTE Device Contraindication: N/A - Device Ordered VTE Drug Contraindication: N/A - Med Ordered
[2024-08-14] MEDS: Cyanocobalamin (Vitamin B-12) 500 MCG TABLET PO (08:40)
[2024-08-14] MEDS: Atorvastatin Calcium 20 MG TABLET PO (08:40)
[2024-08-14] MEDS: Azithromycin 500 MG in 0.9 % Sodium Chloride 250 ML 125 MG IV (08:57)
[2024-08-14] MEDS: Potassium Chloride ER 20 MEQ TAB.ER.PRT 40 MEQ PO (10:48)
[2024-08-14] MEDS: methylPREDNISolone Sod Succ 125 MG/2 ML VIAL 250 MG IVPUSH ×3 (10:49→20:24)
[2024-08-14] MEDS: Fluticasone/Umeclidinium/Vilanterol 200/62.5/25 BLST.W.DEV 1 PUFF INHALE (11:21)
--- NOTE | 2024-08-14 11:38 | PM.CNCAR ---
History of Present Illness History of Present Illness Date of Service: 08/14/24 Chief complaint: Pneumonia w/ sepsis, hypoxia Narrative: This is a cardiology consultation regarding management of atrial fibrillation. She has a very complex patient well known to me. She has a history of [place] mechanical mitral valve as well as tricuspid annuloplasty for rheumatic heart disease. Additionally, transcatheter aortic valve replacement couple of years ago. Chronic congestive heart failure. Intermittent atrial fibrillation issues. In the past, she was on amiodarone but she also had some pulmonary infiltrates but it was never clear if it was amiodarone related versus heart failure. She has also been on sotalol but still had recurrent atrial fibrillation. Any case, it seems amiodarone was re-attempted and then there are new pulmonary infiltrates which could be drug related. She is now on respiratory failure and in the ICU. She has had elevated digoxin levels on arrival. Otherwise, quite anxious and she is worried about all the events and the eventual outcome. Review of Systems Review of Systems: Yes all other systems are reviewed and are negative Constitutional: Constitutional: Reports as per HPI and Reports no additional constitutional complaints Eyes: Eyes: Reports as per HPI and Denies no additional eye complaints ENT: Denies system reviewed and no additional complaints, except as documented and Reports as per HPI Cardiovascular: Cardiovascular: Reports as per HPI, Reports no additional cardiovascular complaints, Denies acrocyanosis, Denies cool extremities, Denies chest pain, Denies leg edema, Denies lightheadedness, Denies palpitations and Reports dyspnea Respiratory: Respiratory: Reports as per HPI, Denies no additional respiratory complaints and Reports dyspnea Gastrointestinal: Gastrointestinal: Reports as per HPI and Denies no additional gastrointestinal complaints Genitourinary: Genitourinary: Reports as per HPI Musculoskeletal: Musculoskeletal: Reports no additional musculoskeletal complaints and Reports as per HPI Integumentary/Breasts: Skin/Breast: Reports system reviewed and no additional complaints, except as docu Neurologic: Reports system reviewed and no additional complaints, except as documented and Reports as per HPI Psychiatric: Psychiatric: Reports no additional psychiatric complaints and Reports as per HPI Endocrine: Endocrine: Reports no additional endocrine complaints, Reports as per HPI and Denies palpitations Hematologic/Lymphatic: Hematologic/Lymphatic: Reports no additional hematologic/lymphatic complaints and Reports as per HPI Allergic/Immunologic: Allergic/Immunologic: Reports no additional allergic/immunologic complaints and Reports as per HPI [facility] Past Medical History Medical History PAF (paroxysmal atrial fibrillation) Hyperprothrombinemia Abnormal CT scan, chest Acute on chronic diastolic (congestive) heart failure Atrial fibrillation with rapid ventricular response Implantable loop recorder present Persistent atrial fibrillation Increasing shortness of breath Encounter for interrogation of cardiac pacemaker Subtherapeutic international normalized ratio (INR) Heart failure Cardiac pacemaker Nocturnal hypoxemia (~08/15/23) Sinus pause History of cardioversion Interstitial lung disease COPD (chronic obstructive pulmonary disease) Pulmonary nodule Atrial flutter with rapid ventricular response COPD (chronic obstructive pulmonary disease) Exercise hypoxemia Interstitial lung disease Bronchitis due to Staphylococcus aureus History of transcatheter aortic valve replacement (TAVR) Acute diastolic CHF (congestive heart failure) Paroxysmal atrial fibrillation Abnormal EKG Hypoxia Interstitial lung disease Anemia Atrial flutter Obesity (HFpEF) heart failure with preserved ejection fraction Aortic stenosis Current use of anticoagulant therapy Family History Family History Father No problems noted. Mother CVD (cardiovascular disease) Surgical History Surgical History Status post transcatheter aortic valve replacement Hx of mitral valve replacement (~2004) Status post placement of cardiac pacemaker H/O heart surgery History of sleeve gastrectomy (~2017) Hx of transesophageal echocardiography (SHELIA) for monitoring (~2015) Hx of section Social History Social History Household Members: Children Household Members Other:: daughter Housing: House Do you presently have visiting nurse or other home services: Yes Alcohol intake: never Comment: patient moderate fall risk refusing alarrms Patient Tobacco Use Status: Former Tobacco user Tobacco use type: Cigarette Cigarettes Per Day: 10 Years Smoked: 35 Smoked in Last 30 Days: No e-Cigarette/Vaping Use: Never Used Patient Interested in Nicotine Replacement: No Patient Given Instructions on How to Stop Smoking: No Second Hand Smoke Exposure: No Use of substances other than those prescribed or required for medical reasons: No Currently Displaying Signs/Symptoms of Drug Intoxication Withdrawal: No Any prior treatment program specific to substance use: No Have you been hit, kicked, punched, or otherwise hurt by someone within the past year? If so, by whom?: No Do you feel safe in your current relationship?: Yes Is there a partner from a previous relationship who is making you feel unsafe now?: No Are you made to feel afraid or neglected: No Spiritual Healthcare Practices: holiness Advance Directives: Yes Advance Directives on File: Yes Advance Directives Date on File: 12/18/22 Do you have a plan to hurt others: No Plan Recently lost weight without trying: Yes How much weight loss: 2-13 pounds Eating poorly because of decreased appetite: No Nutrition screen score: 3 Patient : No : No Poor oral hygiene: No service: No Current occupational status: disabled Meds Allergies Allergy/AdvReac Type Severity Reaction Status Date / Time amiodarone Allergy Difficulty Verified 08/13/24 07:25 Breathing Active Medications: Current Medications Acetaminophen (Acetaminophen 325 Mg Tablet) 650 mg PO Q6H PRN PRN Reason: Pain, Mild (Pain Scale 1-3), fever or headache Last Admin: 08/14/24 05:27 Dose: 650 mg Albuterol Sulfate (Albuterol Sulfate 90 Mcg 8 Gm Inhaler) 2 puff INHALE RQ4H PRN PRN Reason: breathing Atorvastatin Calcium (Atorvastatin Calcium 20 Mg Tablet) 20 mg PO DAILY [facility] Last Admin: 08/14/24 08:40 Dose: 20 mg Benzonatate (Benzonatate 100 Mg Capsule) 200 mg PO TID PRN PRN Reason: Cough Cyanocobalamin (Cyanocobalamin (Vitamin B-12) 500 Mcg Tablet) 500 mcg PO DAILY [facility] Last Admin: 08/14/24 08:40 Dose: 500 mcg Escitalopram Oxalate (Escitalopram Oxalate 5 Mg Tablet) 5 mg PO DAILY@1600 [facility] Last Admin: 08/13/24 17:46 Dose: 5 mg Ferrous Sulfate (Ferrous Sulfate 324 Mg Tablet.Dr) 324 mg PO DAILY@1600 [facility] Fluticasone/Umeclidinium/Vilanterol (Fluticasone/Umeclidinium/Vilanterol 200/62.5/25 Blst.W.Dev) 1 puff INHALE RDAILY [facility] Last Admin: 08/14/24 11:21 Dose: 1 puff Furosemide (Furosemide 40 Mg/4 Ml Vial) 40 mg IVPUSH BID@0900,1800 [facility]; Protocol Last Admin: 08/14/24 08:58 Dose: 40 mg Guaifenesin (Guaifenesin 100 Mg/5 Ml 5 Ml Liquid) 5 ml PO Q4H PRN PRN Reason: Cough Last Admin: 08/13/24 21:36 Dose: 5 ml Azithromycin 500 mg/ Sodium (Chloride) 250 mls @ 125 mls/hr IV Q24H [facility] Last Infusion: 08/14/24 11:19 Dose: Infused Cefepime HCl (Maxipime) 2 gm in 50 mls @ 100 mls/hr IV Q8H [facility] Last Infusion: 08/14/24 09:31 Dose: Infused Norepinephrine Bitartrate (Levophed) 8 mg in 250 mls @ 0 mls/hr IVCONT .Q0M [facility]; Protocol Last Titration: 08/14/24 09:58 Dose: 0.17 mcg/kg/min, 24.29 mls/hr Vancomycin HCl 1,000 mg/ (Sodium Chloride) 270 mls @ 270 mls/hr IV Q12H [facility] Levothyroxine Sodium (Levothyroxine Sodium 25 Mcg Tablet) 25 mcg PO DAILY@0600 [facility] Last Admin: 08/14/24 05:27 Dose: 25 mcg Methylprednisolone Sodium Succinate (Methylprednisolone Sod Succ 125 Mg/2 Ml Vial) 250 mg IVPUSH Q6H [facility] Last Admin: 08/14/24 10:49 Dose: 250 mg Pharmacy Consult (Consult Rx Vancomycin Dosing) 1 each MISCELLANE DAILY PRN PRN Reason: Consult order Sodium Chloride (0.9 % Sodium Chloride Flush 3 Ml Syringe) 3 ml IVFLUSH QSHIFT [facility] Last Admin: 08/14/24 08:33 Dose: 3 ml Home Medications ?Medication ?Instructions ?Recorded ?Confirmed ?Last Taken ?Type levothyroxine 25 mcg tablet 25 mcg PO DAILY@0600 09/01/20 08/13/24 08/12/24 History atorvastatin 20 mg tablet 20 mg PO DAILY 04/26/21 08/13/24 08/12/24 History fluticasone fur. 200 mcg-umeclid 1 ea inhalation DAILY 03/26/23 08/13/24 08/12/24 History 62.5 mcg-vilant 25 mcg inhalat.powder (Trelegy Ellipta) albuterol sulfate 90 mcg/actuation 2 puff inhalation Q4-6H PRN 0608/13/24 07/20/24 07:00 History aerosol inhaler (Ventolin HFA) breathing ferrous sulfate 325 mg (65 mg 325 mg PO DAILY@1600 04/22/23 08/13/24 08/12/24 History iron) tablet ketoconazole 2 % topical cream 1 appl topical BID PRN Itching 05/15/24 08/13/24 07/20/24 07:00 History escitalopram oxalate 5 mg tablet 5 mg PO DAILY@159907/20/24 08/13/24 08/12/24 History furosemide 40 mg tablet 40 mg PO DAILY@159907/20/24 08/13/24 08/12/24 History fluticasone fur. 200 mcg-umeclid 1 ea inhalation DAILY 08/13/24 08/13/24 08/12/24 History 62.5 mcg-vilant 25 mcg inhalat.powder (Trelegy Ellipta) warfarin 2.5 mg tablet 2.5 mg PO WE 08/13/24 08/13/24 08/12/24 History warfarin 5 mg tablet 5 mg PO SUMOTHFRSA 08/13/24 08/13/24 08/10/24 History Physical Exam Vital Signs: Vital Signs: Last Vital Signs Temp 99.3 F 08/14/24 11:00 Pulse 73 08/14/24 11:24 Resp 43 H 08/14/24 11:25 BP 112/59 L 08/14/24 11:00 Pulse Ox 90 L 08/14/24 11:00 O2 Del Method High Flow Nasal C annula 08/14/24 11:00 O2 Flow Rate 50 08/14/24 11:00 FiO2 90 08/14/24 11:00 BMI result Body Mass Index 32.4 Const: General: comfortable and no acute distress Orientation/consciousness: patient oriented x3 HEENT: Other: Unremarkable Head: Yes normal to inspection Neck: Neck: Yes normal visual inspection Chest: Chest palpation & inspection: normal inspection of the chest Resp: Auscultation: crackles and diminished lung sounds Cardio: Other: Normal prosthetic heart sounds Palpation: normal PMI GI: Palpation (GI): Soft to palpation Back/Spine/Pelvis: Other: unremarkable Skin: General skin exam: no rashes or lesions noted Neuro: General: patient oriented x3 Extrem: General: Yes normal to inspection Psych: Mental Status: mental status grossly normal Objective Labs and Meds 08/14/24 04:37 08/14/24 04:37 Lab results: Laboratory Results - last 24 hr 08/13/24 08/14/24 08/14/24 07:39 03:44 04:37 WBC 16.8 H RBC 3.64 L Hgb 10.1 L Hct 31.4 L MCV 86.3 MCH 27.7 MCHC 32.2 RDW 16.6 H Plt Count 184 MPV 12.2 Absolute Nucleated RBC 0.000 Nucleated RBC % (auto) 0.0 ESR 91 H PT 42.0 H INR 3.6 H O2 Saturation 90.0 ABG pH at Pt Temp 7.50 H ABG pCO2 at Pt Temp 32 ABG pO2 at Pt Temp 64 L ABG HCO3 26 ABG Base Excess (Actual) 3.4 Sodium 139 Potassium 3.2 L Chloride 103 Carbon Dioxide 26 Anion Gap 13 BUN 16 Creatinine 0.75 Estim Creat Clear Calc 69.5 Estimated GFR > 60 Random Glucose 113 Lactic Acid Calcium 9.0 Phosphorus 2.8 Magnesium 1.9 C-Reactive Protein 16.06 H B-Natriuretic Peptide 355 H Procalcitonin 0.10 08/14/24 07:23 WBC RBC Hgb Hct MCV MCH MCHC RDW Plt Count MPV Absolute Nucleated RBC Nucleated RBC % (auto) ESR PT INR O2 Saturation ABG pH at Pt Temp ABG pCO2 at Pt Temp ABG pO2 at Pt Temp ABG HCO3 ABG Base Excess (Actual) Sodium Potassium Chloride Carbon Dioxide Anion Gap BUN Creatinine Estim Creat Clear Calc Estimated GFR Random Glucose Lactic Acid 1.3 Calcium Phosphorus Magnesium C-Reactive Protein B-Natriuretic Peptide Procalcitonin ECG Interpretation: In the EKG, atrial pacing is seen but do not see any clear ventricular pacing. Some ST depression which could be from digoxin effects. On telemetry, probably brief atrial fibrillation episodes. Imaging Radiologist's impression: Impressions Chest CT 08/13/24 13:36 IMPRESSION: Extensive patchy and consolidative airspace disease is again noted bilaterally, slightly worsened from prior chest CT of July 28, 2024. Fleischner guidelines were followed. Electronically signed by: Fidel Green MD 08/13/2024 03:47 PM EDT Chest X-Ray 08/14/24 03:35 IMPRESSION: Interval worsening of diffuse bilateral airspace opacities, which appears more confluent in the right lung. Trace left pleural effusion. 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 Unfortunately, not much of a choice for antiarrhythmics at this time. Tikosyn possibly but again not ideal when someone is in ICU, in respiratory failure and on pressors. Discussed with [facility] EP (, CCU team) and agreed no suitable antiarrhytmics or other appropraite meds. If she indeed goes in atrial fibrillation, maybe small doses of IV beta-blockers may need to be used with consideration for AVN ablation. Even for that, she will need to be stable. Anticoagulation for a therapeutic INR around 3. Appropriate treatment of respiratory failure. Discussed with . Overall, guarded prognosis. Procedures Date of Service Date of Service: 08/14/24
[2024-08-14 12:23] LABS: Appearance Urine Cloudy; Color Urine Yellow; Glucose Urine UA 250 mg/dL (Negative); Leukocyte Esterase Urine Moderate (2+) (Negative); Nitrite Urine Negative (Negative); PH 5.5 (5.0-9.0); UMIC TRIGGER UACC YES; Urine Blood Small (1+) (Negative); Urine Ketones Negative (Negative); Urine Protein Negative (Neg-Trace)
[2024-08-14 12:37] LABS: Bacteria Urine None Seen (None Seen); Hyaline Casts Urine 0-2 /LPF (0-2); RBC Urine 0-2 /HPF (0-2); UACC Culture Trigger YES; WBC Clumps Urine Present; WBC Urine >50 /HPF (0-5)
[2024-08-14 13:24] LABS: Adenovirus PCR Not Detected (Not Detect.); Bordetella parapertussis PCR Not Detected (Not Detect.); Bordetella pertussis PCR Not Detected (Not Detect.); Chlamydia pneumoniae PCR Not Detected (Not Detect.); Coronavirus 229E PCR Not Detected (Not Detect.); Coronavirus HKU1 PCR Not Detected (Not Detect.); Coronavirus NL63 PCR Not Detected (Not Detect.); Coronavirus OC43 PCR Not Detected (Not Detect.); Human metapneumovirus PCR Not Detected (Not Detect.); Influenza A PCR Not Detected (Not Detect.); Influenza B PCR Not Detected (Not Detect.); Mycoplasma pneumoniae PCR Not Detected (Not Detect.); Parainfluenza 1 PCR Not Detected (Not Detect.); Parainfluenza 2 PCR Not Detected (Not Detect.); Parainfluenza 3 PCR Not Detected (Not Detect.); Parainfluenza 4 PCR Not Detected (Not Detect.); RSV PCR Not Detected (Not Detect.); Rhino/Enterovirus PCR Not Detected (Not Detect.)
[2024-08-14 13:30] LABS: SARS-CoV-2 PCR Not Detected (Not Detect.)
--- NOTE | 2024-08-14 13:43 | PM.PNPUL ---
Subjective Subjective Date of Service: 08/14/24 Interval history: 71-year-old lady with underlying COPD, AFib previously on amiodarone, diastolic congestive heart failure and history of MVR with mechanical valve anticoagulated with Coumadin who had recent admission to [facility] for dyspnea and hypoxia likely secondary to acute inflammatory reaction that resolved with IV prednisone. Patient now readmitted 10 days later with worsening dyspnea and hypoxia now requiring maximal support with high-flow nasal cannula. CT chest demonstrates recurrent and worsening peribronchovascular infiltrate. Patient started on empiric antibiotics and IV steroids, also with hypotension requiring pressor support with now improving pressor requirements. Objective Data Labs 08/14/24 04:37 08/14/24 04:37 Labs: Laboratory Results - last 24 hr 08/14/24 08/14/24 08/14/24 03:44 04:37 07:23 WBC 16.8 H RBC 3.64 L Hgb 10.1 L Hct 31.4 L MCV 86.3 MCH 27.7 MCHC 32.2 RDW 16.6 H Plt Count 184 MPV 12.2 Absolute Nucleated RBC 0.000 Nucleated RBC % (auto) 0.0 PT 42.0 H INR 3.6 H O2 Saturation 90.0 ABG pH at Pt Temp 7.50 H ABG pCO2 at Pt Temp 32 ABG pO2 at Pt Temp 64 L ABG HCO3 26 ABG Base Excess (Actual) 3.4 Sodium 139 Potassium 3.2 L Chloride 103 Carbon Dioxide 26 Anion Gap 13 BUN 16 Creatinine 0.75 Estim Creat Clear Calc 69.5 Estimated GFR > 60 Random Glucose 113 Lactic Acid 1.3 Calcium 9.0 Phosphorus 2.8 Magnesium 1.9 B-Natriuretic Peptide 355 H Urine Color Urine Appearance Urine pH Ur Specific Caro Urine Protein Urine Glucose (UA) Urine Ketones Urine Blood Urine Nitrite Ur Leukocyte Esterase Urine RBC Urine WBC Urine WBC Clumps Ur Squamous Epith Cells Urine Bacteria Hyaline Casts Respiratory Panel [place] Adenovirus (Rapid PCR) B.pert (TEM-PCR) B.parapertussis DNA PCR C. pneumoniae DNA (PCR) Coronavirus OC43 (PCR) Coronavirus HKU1 (PCR) Coronavirus 229E (PCR) Coronavirus NL63 (PCR) Human Metapneumovir PCR Influenza A (RT-PCR) Influenza B (RT-PCR) M. pneumoniae (PCR) Parainfluenza 1 (PCR) Parainfluenza 2 (PCR) Parainfluenza 3 (PCR) Parainfluenza 4 (PCR) RSV (PCR) Entero/Rhino (PCR) SARS-CoV-2 RNA (RT-PCR) 08/14/24 11:58 WBC RBC Hgb Hct MCV MCH MCHC RDW Plt Count MPV Absolute Nucleated RBC Nucleated RBC % (auto) PT INR O2 Saturation ABG pH at Pt Temp ABG pCO2 at Pt Temp ABG pO2 at Pt Temp ABG HCO3 ABG Base Excess (Actual) Sodium Potassium Chloride Carbon Dioxide Anion Gap BUN Creatinine Estim Creat Clear Calc Estimated GFR Random Glucose Lactic Acid Calcium Phosphorus Magnesium B-Natriuretic Peptide Urine Color Yellow Urine Appearance Cloudy Urine pH 5.5 Ur Specific Caro 1.010 Urine Protein Negative Urine Glucose (UA) 250 H Urine Ketones Negative Urine Blood Small (1+) H Urine Nitrite Negative Ur Leukocyte Esterase Moderate (2+) H Urine RBC 0-2 Urine WBC >50 Urine WBC Clumps Present Ur Squamous Epith Cells 3-5 Urine Bacteria None Seen Hyaline Casts 0-2 Respiratory Panel [place] See Note Adenovirus (Rapid PCR) Not Detected B.pert (TEM-PCR) Not Detected B.parapertussis DNA PCR Not Detected C. pneumoniae DNA (PCR) Not Detected Coronavirus OC43 (PCR) Not Detected Coronavirus HKU1 (PCR) Not Detected Coronavirus 229E (PCR) Not Detected Coronavirus NL63 (PCR) Not Detected Human Metapneumovir PCR Not Detected Influenza A (RT-PCR) Not Detected Influenza B (RT-PCR) Not Detected M. pneumoniae (PCR) Not Detected Parainfluenza 1 (PCR) Not Detected Parainfluenza 2 (PCR) Not Detected Parainfluenza 3 (PCR) Not Detected Parainfluenza 4 (PCR) Not Detected RSV (PCR) Not Detected Entero/Rhino (PCR) Not Detected SARS-CoV-2 RNA (RT-PCR) Not Detected Microbiology Microbiology Results: Microbiology 08/13/24 08:03 Blood - Venous Blood Culture - Preliminary No growth after 24 hours. 08/13/24 08:03 Blood - Venous Blood Culture - Preliminary No growth after 24 hours. Review of Systems Cardiovascular: Denies chest pain and Reports dyspnea Respiratory: Denies cough, Denies excessive phlegm production, Reports dyspnea and Denies wheezing Allergic/Immunologic: Denies wheezing Physical Exam Vital Signs: Vital Signs: Last Vital Signs Temp 99.7 F 08/14/24 13:00 Pulse 74 08/14/24 13:00 Resp 35 H 08/14/24 12:00 BP 113/44 L 08/14/24 13:00 Pulse Ox 91 L 08/14/24 13:00 O2 Del Method High Flow Nasal C annula 08/14/24 13:00 O2 Flow Rate 50 08/14/24 13:00 FiO2 100 08/14/24 13:00 BMI result Body Mass Index 32.4 Const: General: no acute distress, alert and awake Eyes: Sclerae: sclerae normal EOM: EOMs intact bilaterally Neck: Neck: Yes no lymphadenopathy, Yes trachea midline and Yes supple Resp: Effort & Inspection: tachypneic Auscultation: crackles (Bilateral) Cardio: Rate: regular rate Rhythm: regular rhythm Heart sounds: no gallops, no murmurs and no rubs GI: Palpation (GI): Soft to palpation and Other GI palpation findings present ( Nontender) Auscultation: normal bowel sounds Extrem: General: No clubbing, No cyanosis and Yes edema (Trace bilateral) Procedures Date of Service Date of Service: 08/14/24 Assessment and Plan Assessment and plan (1) Acute hypoxic respiratory failure: Status: Acute (2) Abnormal CT scan, chest: Status: Acute Plan Impression: 68-year-old lady with acute hypoxic respiratory failure with CT chest showing a diffuse dense peribronchovascular infiltrate with elevated inflammatory markers and natriuretic peptide. Unclear etiology, likely has inflammatory origin, though pulmonary infection and edema components are also possible. Recommendations: High-dose systemic Solu-Medrol at 250 mg IV every 6 hours for 3 days. Empiric broad-spectrum antibiotics. Diuresis as tolerated. Time Spent With Patient Time: Total time managing care of this patient today ____ minutes. Progress Note: Quality Stroke Does the patient have a stroke diagnosis?: No
--- NOTE | 2024-08-14 13:53 | PM.CNPUL ---
History of Present Illness History of Present Illness Consult date: 08/14/24 Chief complaint: Pneumonia w/ sepsis, hypoxia Narrative: 71-year-old lady with underlying COPD, AFib previously on amiodarone, diastolic congestive heart failure and history of MVR with mechanical valve anticoagulated with Coumadin who had recent admission to [facility] for dyspnea and hypoxia likely secondary to acute inflammatory reaction that resolved with IV prednisone. Patient now readmitted 10 days later with worsening dyspnea and hypoxia now requiring maximal support with high-flow nasal cannula. CT chest demonstrates recurrent and worsening peribronchovascular infiltrate. Patient started on empiric antibiotics and IV steroids, also with hypotension requiring pressor support with now improving pressor requirements. Review of Systems Cardiovascular: Cardiovascular: Denies chest pain and Reports dyspnea Respiratory: Respiratory: Denies cough, Denies excessive phlegm production, Reports dyspnea and Denies wheezing Allergic/Immunologic: Allergic/Immunologic: Denies wheezing PMFSH Past Medical History Medical History (Updated 08/14/24 @ 13:49 by Reji Flores MD) Abnormal CT scan, chest PAF (paroxysmal atrial fibrillation) Hyperprothrombinemia Acute on chronic diastolic (congestive) heart failure Atrial fibrillation with rapid ventricular response Implantable loop recorder present Persistent atrial fibrillation Increasing shortness of breath Encounter for interrogation of cardiac pacemaker Subtherapeutic international normalized ratio (INR) Heart failure Cardiac pacemaker Nocturnal hypoxemia (~08/15/23) Sinus pause History of cardioversion Interstitial lung disease COPD (chronic obstructive pulmonary disease) Pulmonary nodule Atrial flutter with rapid ventricular response COPD (chronic obstructive pulmonary disease) Exercise hypoxemia Interstitial lung disease Bronchitis due to Staphylococcus aureus History of transcatheter aortic valve replacement (TAVR) Acute diastolic CHF (congestive heart failure) Paroxysmal atrial fibrillation Abnormal EKG Hypoxia Interstitial lung disease Anemia Atrial flutter Obesity (HFpEF) heart failure with preserved ejection fraction Aortic stenosis Current use of anticoagulant therapy Family History Family History Father No problems noted. Mother CVD (cardiovascular disease) Surgical History Surgical History Status post transcatheter aortic valve replacement Hx of mitral valve replacement (~2004) Status post placement of cardiac pacemaker H/O heart surgery History of sleeve gastrectomy (~2017) Hx of transesophageal echocardiography (SHELIA) for monitoring (~2016) Hx of section Social History Social History Household Members: Children Household Members Other:: daughter Housing: House Do you presently have visiting nurse or other home services: Yes Alcohol intake: never Comment: patient moderate fall risk refusing alarrms Patient Tobacco Use Status: Former Tobacco user Tobacco use type: Cigarette Cigarettes Per Day: 10 Years Smoked: 35 Smoked in Last 30 Days: No e-Cigarette/Vaping Use: Never Used Patient Interested in Nicotine Replacement: No Patient Given Instructions on How to Stop Smoking: No Second Hand Smoke Exposure: No Use of substances other than those prescribed or required for medical reasons: No Currently Displaying Signs/Symptoms of Drug Intoxication Withdrawal: No Any prior treatment program specific to substance use: No Have you been hit, kicked, punched, or otherwise hurt by someone within the past year? If so, by whom?: No Do you feel safe in your current relationship?: Yes Is there a partner from a previous relationship who is making you feel unsafe now?: No Are you made to feel afraid or neglected: No Spiritual Healthcare Practices: rastafari Advance Directives: Yes Advance Directives on File: Yes Advance Directives Date on File: 12/18/22 Do you have a plan to hurt others: No Plan Recently lost weight without trying: Yes How much weight loss: 2-13 pounds Eating poorly because of decreased appetite: No Nutrition screen score: 3 Patient : No : No Poor oral hygiene: No service: No Current occupational status: disabled Meds Allergies Allergy/AdvReac Type Severity Reaction Status Date / Time amiodarone Allergy Difficulty Verified 08/13/24 07:25 Breathing Active Medications: Current Medications Acetaminophen (Acetaminophen 325 Mg Tablet) 650 mg PO Q6H PRN PRN Reason: Pain, Mild (Pain Scale 1-3), fever or headache Last Admin: 08/14/24 05:27 Dose: 650 mg Albuterol Sulfate (Albuterol Sulfate 90 Mcg 8 Gm Inhaler) 2 puff INHALE RQ4H PRN PRN Reason: breathing Atorvastatin Calcium (Atorvastatin Calcium 20 Mg Tablet) 20 mg PO DAILY LEONORA Last Admin: 08/14/24 08:40 Dose: 20 mg Benzonatate (Benzonatate 100 Mg Capsule) 200 mg PO TID PRN PRN Reason: Cough Calcium Carbonate (Calcium Carbonate 750 Mg Tab.Chew) 750 mg PO Q6H PRN PRN Reason: Heartburn Cyanocobalamin (Cyanocobalamin (Vitamin B-12) 500 Mcg Tablet) 500 mcg PO DAILY [facility] Last Admin: 08/14/24 08:40 Dose: 500 mcg Escitalopram Oxalate (Escitalopram Oxalate 5 Mg Tablet) 5 mg PO DAILY@1600 [facility] Last Admin: 08/13/24 17:46 Dose: 5 mg Ferrous Sulfate (Ferrous Sulfate 324 Mg Tablet.Dr) 324 mg PO DAILY@1600 [facility] Fluticasone/Umeclidinium/Vilanterol (Fluticasone/Umeclidinium/Vilanterol 200/62.5/25 Blst.W.Dev) 1 puff INHALE RDAILY [facility] Last Admin: 08/14/24 11:21 Dose: 1 puff Furosemide (Furosemide 40 Mg/4 Ml Vial) 40 mg IVPUSH BID@0900,1800 [facility]; Protocol Last Admin: 08/14/24 08:58 Dose: 40 mg Guaifenesin (Guaifenesin 100 Mg/5 Ml 5 Ml Liquid) 5 ml PO Q4H PRN PRN Reason: Cough Last Admin: 08/13/24 21:36 Dose: 5 ml Azithromycin 500 mg/ Sodium (Chloride) 250 mls @ 125 mls/hr IV Q24H [facility] Last Infusion: 08/14/24 11:19 Dose: Infused Cefepime HCl (Maxipime) 2 gm in 50 mls @ 100 mls/hr IV Q8H [facility] Last Infusion: 08/14/24 09:31 Dose: Infused Norepinephrine Bitartrate (Levophed) 8 mg in 250 mls @ 0 mls/hr IVCONT .Q0M [facility]; Protocol Last Titration: 08/14/24 12:56 Dose: 0.07 mcg/kg/min, 10 mls/hr Vancomycin HCl 1,000 mg/ (Sodium Chloride) 270 mls @ 270 mls/hr IV Q12H [facility] Levothyroxine Sodium (Levothyroxine Sodium 25 Mcg Tablet) 25 mcg PO DAILY@0600 [facility] Last Admin: 08/14/24 05:27 Dose: 25 mcg Methylprednisolone Sodium Succinate (Methylprednisolone Sod Succ 125 Mg/2 Ml Vial) 250 mg IVPUSH Q6H [facility] Last Admin: 08/14/24 10:49 Dose: 250 mg Pharmacy Consult (Consult Rx Vancomycin Dosing) 1 each MISCELLANE DAILY PRN PRN Reason: Consult order Sodium Chloride (0.9 % Sodium Chloride Flush 3 Ml Syringe) 3 ml IVFLUSH QSALFT [facility] Last Admin: 08/14/24 08:33 Dose: 3 ml Home Medications ?Medication ?Instructions ?Recorded ?Confirmed ?Last Taken ?Type levothyroxine 25 mcg tablet 25 mcg PO DAILY@0600 09/01/20 08/13/24 08/12/24 History atorvastatin 20 mg tablet 20 mg PO DAILY 04/26/21 08/13/24 08/12/24 History fluticasone fur. 200 mcg-umeclid 1 ea inhalation DAILY 03/26/23 08/13/24 08/12/24 History 62.5 mcg-vilant 25 mcg inhalat.powder (Trelegy Ellipta) albuterol sulfate 90 mcg/actuation 2 puff inhalation Q4-6H PRN 04/08/23 08/13/24 07/20/24 07:00 History aerosol inhaler (Ventolin HFA) breathing ferrous sulfate 325 mg (65 mg 325 mg PO DAILY@1600 04/22/23 08/13/24 08/12/24 History iron) tablet ketoconazole 2 % topical cream 1 appl topical BID PRN Itching 05/15/24 08/13/24 07/20/24 07:00 History escitalopram oxalate 5 mg tablet 5 mg PO DAILY@1600 07/20/24 08/13/24 08/12/24 History furosemide 40 mg tablet 40 mg PO DAILY@1600 07/20/24 08/13/24 08/12/24 History fluticasone fur. 200 mcg-umeclid 1 ea inhalation DAILY 08/13/24 08/13/24 08/12/24 History 62.5 mcg-vilant 25 mcg inhalat.powder (Trelegy Ellipta) warfarin 2.5 mg tablet 2.5 mg PO WE 08/13/24 08/13/24 08/12/24 History warfarin 5 mg tablet 5 mg PO SUMOTHFRSA 08/13/24 08/13/24 08/10/24 History Physical Exam Vital Signs: Vital Signs: Last Vital Signs Temp 99.7 F 08/14/24 13:00 Pulse 74 08/14/24 13:00 Resp 35 H 08/14/24 12:00 BP 113/44 L 08/14/24 13:00 Pulse Ox 91 L 08/14/24 13:00 O2 Del Method High Flow Nasal C annula 08/14/24 13:00 O2 Flow Rate 50 08/14/24 13:00 FiO2 100 08/14/24 13:00 BMI result Body Mass Index 32.4 Const: General: no acute distress, alert and awake Eyes: Sclerae: sclerae normal EOM: EOMs intact bilaterally Neck: Neck: Yes no lymphadenopathy, Yes trachea midline and Yes supple Resp: Effort & Inspection: tachypneic Auscultation: crackles (Bilateral) Cardio: Rate: regular rate Rhythm: regular rhythm Heart sounds: no gallops, no murmurs and no rubs GI: Palpation (GI): Soft to palpation and Other GI palpation findings present ( Nontender) Auscultation: normal bowel sounds Extrem: General: No clubbing, No cyanosis and Yes edema (Trace bilateral) Results Laboratory Findings 08/14/24 04:37 08/14/24 04:37 ABG, PT/INR, D-dimer: PT/INR, D-dimer PT 42.0 SEC (10.9-12.4) H 08/14/24 04:37 INR 3.6 (0.9-1.1) H 08/14/24 04:37 Abnormal lab findings: Abnormal Labs 08/13/24 08/13/24 08/13/24 07:38 07:39 07:43 WBC 12.4 H RBC 3.95 L Hgb 11.0 L Hct 33.9 L RDW 16.5 H Immature Gran % (Auto) 0.6 H Neut % (Auto) 89.8 H Lymph % (Auto) 3.8 L Lymph # (Auto) 0.5 L Abs Immat Gran (auto) 0.07 H Absolute Neuts (auto) 11.1 H ESR 91 H PT INR ABG pH at Pt Temp ABG pO2 at Pt Temp VBG pH 7.61 H* VBG HCO3 29 H Potassium Total Bilirubin 1.6 H Direct Bilirubin 0.6 H Troponin I High Sens 38.8 H D C-Reactive Protein 16.06 H B-Natriuretic Peptide 387 H Albumin 3.1 L Lipase 7 L Urine Glucose (UA) Urine Blood Ur Leukocyte Esterase Digoxin 08/13/24 08/13/24 08/14/24 08:27 09:38 03:44 WBC RBC Hgb Hct RDW Immature Gran % (Auto) Neut % (Auto) Lymph % (Auto) Lymph # (Auto) Abs Immat Gran (auto) Absolute Neuts (auto) ESR PT 42.6 H D INR 3.6 H ABG pH at Pt Temp 7.50 H ABG pO2 at Pt Temp 64 L VBG pH VBG HCO3 Potassium Total Bilirubin Direct Bilirubin Troponin I High Sens 39.7 H C-Reactive Protein B-Natriuretic Peptide 355 H Albumin Lipase Urine Glucose (UA) Urine Blood Ur Leukocyte Esterase Digoxin 2.4 H* 08/14/24 08/14/24 04:37 11:58 WBC 16.8 H RBC 3.64 L Hgb 10.1 L Hct 31.4 L RDW 16.6 H Immature Gran % (Auto) Neut % (Auto) Lymph % (Auto) Lymph # (Auto) Abs Immat Gran (auto) Absolute Neuts (auto) ESR PT 42.0 H INR 3.6 H ABG pH at Pt Temp ABG pO2 at Pt Temp VBG pH VBG HCO3 Potassium 3.2 L Total Bilirubin Direct Bilirubin Troponin I High Sens C-Reactive Protein B-Natriuretic Peptide Albumin Lipase Urine Glucose (UA) 250 H Urine Blood Small (1+) H Ur Leukocyte Esterase Moderate (2+) H Digoxin Microbiology: Microbiology 08/13/24 08:03 Blood - Venous Blood Culture - Preliminary No growth after 24 hours. 08/13/24 08:03 Blood - Venous Blood Culture - Preliminary No growth after 24 hours. Assessment and Plan (1) Acute hypoxic respiratory failure: Status: Acute (2) Abnormal CT scan, chest: Status: Acute Plan Impression: 68-year-old lady with acute hypoxic respiratory failure with CT chest showing a diffuse dense peribronchovascular infiltrate with elevated inflammatory markers and natriuretic peptide. Unclear etiology, likely has inflammatory origin, though pulmonary infection and edema components are also possible. Recommendations: High-dose systemic Solu-Medrol at 250 mg IV every 6 hours for 3 days. Empiric broad-spectrum antibiotics. Diuresis as tolerated. Will check ANCA. Procedures Date of Service Date of Service: 08/14/24
[2024-08-14] MEDS: Calcium Carbonate 750 MG TAB.CHEW PO (13:56)
--- NOTE | 2024-08-14 14:06 | MHC.CM.PN ---
Addendum entered by Анна Gray 08/14/24 14:59: Received clarified information from family: Pt is active with [facility] for RN and PT visits and has [employer] for home O2. Re-referred to [facility] for continued [facility]NA visits. Original Note: Met w/pt and adult children: Pt resides w/spouse and dtr: has no services or DME: Pt states she will return to home w/family support. HCP on file: IMM give and copy in chart. Family to transport pt to home
[2024-08-14] MEDS: Morphine Sulfate 2 MG/ML CARTRIDGE IVPUSH (15:46)
[2024-08-14] MEDS: Ferrous Sulfate 324 MG TABLET.DR PO (16:35)
[2024-08-14] MEDS: Escitalopram Oxalate 5 MG TABLET PO (16:35)
[2024-08-14] MEDS: vancomycin HCL 1,000 MG in 0.9 % Sodium Chloride 250 ML 270 MG IV (17:42)
[2024-08-14] MEDS: dexmedeTOMIDidine HCL/NS 400 MCG/100 ML INFUS..BTL 20.1 MCG IVCONT ×2 (20:21→23:59)
[2024-08-14] MEDS: Throat Lozenge, Medicated LOZENGE 1 LOZENGE MUCOUS MEM (21:01)
[2024-08-15] VITALS (71 sets, daily range): BP systolic 77–148; BP diastolic 23–86; PULSE 69–130; RESP 12–35; TEMP 34.6–38.9; O2SAT 84–98; BMI 32.4
[2024-08-15] MEDS: methylPREDNISolone Sod Succ 125 MG/2 ML VIAL 250 MG IVPUSH ×4 (01:47→19:38)
[2024-08-15] MEDS: Morphine Sulfate 2 MG/ML CARTRIDGE IVPUSH ×3 (02:36→07:56)
[2024-08-15 03:42] LABS: ABG Base Excess 1.9 mmol/L; ABG HCO3 24 mmol/L (22-26); ABG pCO2 30 mmHg (32-45); ABG pO2 71 mmHg (83-108)
[2024-08-15 03:46] LABS: ABG Refer to POC result
[2024-08-15] MEDS: dexmedeTOMIDidine HCL/NS 400 MCG/100 ML INFUS..BTL 28.14 MCG IVCONT (03:46)
--- NOTE | 2024-08-15 03:55 | PC.NURSE ---
Upon initial assessment at 1999- pt A&Ox4, forgetful, anxious but cooperative and re-directable. Precedex started per BRANDO Weeks for anxiety, see DEC. On HFNC 50L/100%, desaturates easily with exertion, slow to recover, NRB 15L applied on top intermittently to maintain SpO2 > 88%. PRN morphine given per DEC. At approx 0300- patient increasingly tachypneic at times, with worsening AMS and occasionally pulling off or displacing nasal cannula. Attempted to redirect patient and provide emotional support, this RN sat with patient for companionship/supervision. Patient's daughter Raul called to bedside at patient's request. ABG ordered and completed, see results. Patient currently remains maxed on HFNC at 55L/100%, RR 20s-30s, SpO2 > 88% at this time. BRANDO Weeks aware of patient status, this RN and BRANDO Weeks updated daughter at bedside. Bed locked in lowest position, bed alarm on, call vang within reach.
[2024-08-15] MEDS: Norepinephrine Bitartrate/D5W 8 MG/250 ML PLAST..BAG 4.29 MG IVCONT (05:14)
[2024-08-15] MEDS: Levothyroxine Sodium 25 MCG TABLET PO (05:16)
[2024-08-15] MEDS: vancomycin HCL 1,000 MG in 0.9 % Sodium Chloride 250 ML 270 MG IV (05:17)
[2024-08-15 05:24] LABS: VBG HCO3 22 mmol/L (22-26); VBG pCO2 24 mmHg; VBG pH 7.57 (7.32-7.43); VBG pO2 122 mmHg
[2024-08-15 05:25] LABS: Venous Blood Gas Refer to POC result
[2024-08-15 05:36] LABS: Basophils Percent Auto 0.1 % (0-2); Hematocrit 30.1 % (37.0-47.0); Hemoglobin 9.9 g/dl (12.0-16.0); Imm Gran Abs Auto 0.16 X10*3/uL (0.00-0.03); Imm Gran Pct Auto 0.9 % (0.0-0.4); Lymphocytes Absolute Auto 0.9 X10*3/uL (1.2-4.9); Lymphocytes Percent Auto 5.2 % (20-40); MANUAL DIFF FLAG SCAN; Mean Corpuscular HGB Conc 32.9 g/dl (31.0-35.0); Mean Corpuscular Hemoglobin 28.1 pg (27.0-33.0); Mean Corpuscular Volume 85.5 fL (80.0-98.0); Mean Platelet Volume 12.6 fL (9.4-12.3); Monocytes Absolute Auto 0.4 X10*3/uL (0.1-1.2); Monocytes Percent Auto 2.2 % (2-11); Neutrophils Absolute Auto 15.6 x10*3/uL (2.0-8.3); Neutrophils Percent Auto 91.6 % (45-73); Platelet Count 176 X10*3/uL (160-400); Red Blood Count 3.52 X10*6/uL (4.20-5.50); SCAN SMEAR FLAG 1
[2024-08-15 05:47] LABS: INTERNATIONAL NORM RATIO 2.6 (0.9-1.1); Prothrombin Time 30.5 SEC (10.9-12.4)
[2024-08-15 05:54] LABS: Albumin Level 2.8 g/dL (3.5-5.0); Anion Gap 17 (12-20); Blood Urea Nitrogen 31 mg/dL (9-16); Carbon Dioxide 21 mmol/L (22-29); Chloride 102 mmol/L (96-108); Creatinine Clr Calc Pharmacy 43.9; Estimated Glomerular Filt Rate 44; Glucose Random 169 mg/dL (60-115); Magnesium 2.2 mg/dL (1.6-2.6); Potassium 3.9 mmol/L (3.3-5.1); Sodium 136 mmol/L (135-145)
[2024-08-15 06:02] LABS: SLIDE REVIEW VERIFIED
[2024-08-15] MEDS: dexmedeTOMIDidine HCL/NS 400 MCG/100 ML INFUS..BTL 30.15 MCG IVCONT (06:39)
[2024-08-15] MEDS: Albumin Human 25 % 100 ML IV (06:39)
--- NOTE | 2024-08-15 07:45 | P.PNCC_ITS ---
Subjective Subjective Date of Service: 08/15/24 Interval History: of note, patient agitated overnight, pulled off HFNC w/ appreciable de- saturation; daughter made aware and came to patient's bedside overnight Critical Care Time (minutes): 60 Physical Exam 2 Vital Signs: Vital Signs: Last Vital Signs Temp 100.2 F 08/15/24 07:00 Pulse 70 08/15/24 07:00 Resp 25 H 08/15/24 07:28 BP 135/61 08/15/24 07:00 Pulse Ox 92 08/15/24 07:00 O2 Del Method High Flow Nasal C annula 08/15/24 07:00 O2 Flow Rate 55 08/15/24 07:00 FiO2 100 08/15/24 07:00 BMI result Body Mass Index 32.4 Const: Other: intermittent anxiety, agitation; no overt distress General: awake and Physically active Orientation/consciousness: oriented to person and oriented to place HEENT: Head: Yes normal to inspection, Yes normocephalic and Yes atraumatic Eyes: General: appearance normal, both eyes and all related structures Neck: Neck: Yes normal visual inspection, Yes full ROM, Yes no meningeal signs, Yes trachea midline and Yes supple Chest: Chest palpation & inspection: normal inspection of the chest Resp: Other: some appreciable rhonchi; no appreciable rales, wheezing Effort & Inspection: normal respiratory effort Cardio: Rate: regular rate Rhythm: regular rhythm GI: Inspection: Yes normal to inspection, No Abdominal wall edema and No distended Palpation (GI): Soft to palpation, not firm, nontender, no guarding and not rigid Skin: General skin exam: no rashes or lesions noted Neuro: General: oriented to person, oriented to place, tone normal, moves all extremities, no meningeal signs and no focal motor deficits Extrem: Other: appreciable non-pitting edema to bilateral shins General: Yes normal to inspection, Yes full ROM and Yes capillary refill normal Psych: Other: intermittent agitation, anxiety necessitating significant verbal re-direction Objective Data Labs 08/15/24 05:12 08/15/24 05:12 Labs: Laboratory Results - last 24 hr 08/14/24 08/14/24 08/15/24 07:23 11:58 03:31 WBC RBC Hgb Hct MCV MCH MCHC RDW Plt Count MPV Immature Gran % (Auto) Neut % (Auto) Lymph % (Auto) [place] % (Auto) Eos % (Auto) Baso % (Auto) Lymph # (Auto) [place] # (Auto) Eos # (Auto) Baso # (Auto) Abs Immat Gran (auto) Absolute Neuts (auto) Absolute Nucleated RBC Nucleated RBC % (auto) Smear Tech's Comments PT INR O2 Saturation 92.0 ABG pH at Pt Temp 7.50 H ABG pCO2 at Pt Temp 30 L ABG pO2 at Pt Temp 71 L ABG HCO3 24 ABG Base Excess (Actual) 1.9 VBG pH VBG pCO2 VBG pO2 VBG HCO3 VBG O2 Saturation VBG Base Excess Sodium Potassium Chloride Carbon Dioxide Anion Gap BUN Creatinine Estim Creat Clear Calc Estimated GFR Random Glucose Lactic Acid 1.3 Calcium Phosphorus Magnesium Albumin Urine Color Yellow Urine Appearance Cloudy Urine pH 5.5 Ur Specific [place] 1.010 Urine Protein Negative Urine Glucose (UA) 250 H Urine Ketones Negative Urine Blood Small (1+) H Urine Nitrite Negative Ur Leukocyte Esterase Moderate (2+) H Urine RBC 0-2 Urine WBC >50 Urine WBC Clumps Present Ur Squamous Epith Cells 3-5 Urine Bacteria None Seen Hyaline Casts 0-2 Respiratory Panel [place] See Note Adenovirus (Rapid PCR) Not Detected B.pert (TEM-PCR) Not Detected B.parapertussis DNA PCR Not Detected C. pneumoniae DNA (PCR) Not Detected Coronavirus OC43 (PCR) Not Detected Coronavirus HKU1 (PCR) Not Detected Coronavirus 229E (PCR) Not Detected Coronavirus NL63 (PCR) Not Detected Human Metapneumovir PCR Not Detected Influenza A (RT-PCR) Not Detected Influenza B (RT-PCR) Not Detected M. pneumoniae (PCR) Not Detected Parainfluenza 1 (PCR) Not Detected Parainfluenza 2 (PCR) Not Detected Parainfluenza 3 (PCR) Not Detected Parainfluenza 4 (PCR) Not Detected RSV (PCR) Not Detected Entero/Rhino (PCR) Not Detected SARS-CoV-2 RNA (RT-PCR) Not Detected 08/15/24 08/15/24 05:12 05:13 WBC 17.0 H RBC 3.52 L Hgb 9.9 L Hct 30.1 L MCV 85.5 MCH 28.1 MCHC 32.9 RDW 17.0 H Plt Count 176 MPV 12.6 H Immature Gran % (Auto) 0.9 H Neut % (Auto) 91.6 H Lymph % (Auto) 5.2 L [place] % (Auto) 2.2 Eos % (Auto) 0.0 Baso % (Auto) 0.1 Lymph # (Auto) 0.9 L [place] # (Auto) 0.4 Eos # (Auto) 0.0 Baso # (Auto) 0.0 Abs Immat Gran (auto) 0.16 H Absolute Neuts (auto) 15.6 H Absolute Nucleated RBC 0.000 Nucleated RBC % (auto) 0.0 Smear Tech's Comments VERIFIED PT 30.5 H D INR 2.6 H O2 Saturation ABG pH at Pt Temp ABG pCO2 at Pt Temp ABG pO2 at Pt Temp ABG HCO3 ABG Base Excess (Actual) VBG pH 7.57 H VBG pCO2 24 VBG pO2 122 VBG HCO3 22 VBG O2 Saturation 98.0 VBG Base Excess 2.0 Sodium 136 Potassium 3.9 D Chloride 102 Carbon Dioxide 21 L Anion Gap 17 BUN 31 H Creatinine 1.22 Estim Creat Clear Calc 43.9 Estimated GFR 44 Random Glucose 169 H Lactic Acid Calcium 9.0 Phosphorus 4.0 Magnesium 2.2 Albumin 2.8 L Urine Color Urine Appearance Urine pH Ur Specific [place] Urine Protein Urine Glucose (UA) Urine Ketones Urine Blood Urine Nitrite Ur Leukocyte Esterase Urine RBC Urine WBC Urine WBC Clumps Ur Squamous Epith Cells Urine Bacteria Hyaline Casts Respiratory Panel [place] Adenovirus (Rapid PCR) B.pert (TEM-PCR) B.parapertussis DNA PCR C. pneumoniae DNA (PCR) Coronavirus OC43 (PCR) Coronavirus HKU1 (PCR) Coronavirus 229E (PCR) Coronavirus NL63 (PCR) Human Metapneumovir PCR Influenza A (RT-PCR) Influenza B (RT-PCR) M. pneumoniae (PCR) Parainfluenza 1 (PCR) Parainfluenza 2 (PCR) Parainfluenza 3 (PCR) Parainfluenza 4 (PCR) RSV (PCR) Entero/Rhino (PCR) SARS-CoV-2 RNA (RT-PCR) Microbiology Microbiology Results: Microbiology 08/13/24 08:03 Blood - Venous Blood Culture - Preliminary No growth after 24 hours. 08/13/24 08:03 Blood - Venous Blood Culture - Preliminary No growth after 24 hours. Progress Note: A&P Assessment and plan (1) Acute and chronic respiratory failure: Status: Acute (2) Pneumonia: Status: Acute (3) Interstitial lung disease: Status: Acute (4) COPD (chronic obstructive pulmonary disease): Status: Acute Plan Patient is a 68 Y F w/ aortic stenosis s/p mechanical valve on warfarin, s/p TAVR, paroxysmal atrial fibrillation, c/b amiodarone toxicity and ILD, s/p pacemaker, and COPD c/b chronic respiratory failure on 3L NC and SOHAIL non- complant w/ CPAP, presenting initially to the emergency department on 08/13 w/ dyspnea, cough, found to have acute on chronic respiratory failure, placed on HFNC, treated empirically for pneumonia, admitted medicine; on 08/14 AM, patient developed worsening respiratory failure, admitted ICU N: per family, reportedly preliminary diagnosis of dementia; appreciable anxiety, on dexmedetomidine gtt, quetiapine CV: hypotension, likely distributive; norepinephrine gtt; wean as tolerated; paroxysmal atrial fibrillation; aortic stenosis s/p TAVR, mitral valve replacement, on warfarin R: acute on chronic respiratory failure, tenuous respiratory status; exceedingly co-morbid w/ ILD, COPD, and c/f pneumonia, pulmonary edema; appreciate pulmonology recommendations; steroids, empiric antibiotics, diuresis GI: cardiac diet : no acute issues; diuresis as tolerated H: mitral valve replacement, on warfarin ID: c/f pneumonia, empiric antibiotics E: diabetes mellitus, insulin regimen P: appreciable anxiety, on dexmedetomidine gtt, quetiapine Quality Stroke Does the patient have a stroke diagnosis?: No VTE Prior VTE?: No VTE Risk Level:: Medical - moderate - high VTE Device Contraindication: N/A - Device Ordered VTE Drug Contraindication: N/A - Med Ordered
[2024-08-15] MEDS: Furosemide 40 MG/4 ML VIAL IVPUSH ×2 (08:05→08:50)
[2024-08-15] MEDS: cefEPime HCl/D5W 2 GM/50 ML PIGGYBACK IV ×3 (08:16→23:27)
[2024-08-15] MEDS: Azithromycin 500 MG in 0.9 % Sodium Chloride 250 ML 125 MG IV (08:17)
[2024-08-15] MEDS: 0.9 % Sodium Chloride Flush 3 ML SYRINGE IVFLUSH ×3 (08:17→23:28)
[2024-08-15] MEDS: Haloperidol Lactate 5 MG/ML VIAL IM (09:20)
[2024-08-15] MEDS: propofoL 1,000 MG/100 ML VIAL 9.65 MG IVCONT (09:32)
[2024-08-15] MEDS: Etomidate 20 MG/10 ML VIAL IVPUSH (09:33)
[2024-08-15] MEDS: Rocuronium Bromide 50 MG/5 ML VIAL 100 MG IVPUSH (09:33)
--- NOTE | 2024-08-15 09:38 | W.PM.CCHP ---
Procedures Date of Service Date of Service: 08/15/24 Intubation Consent for Procedure: Elective - informed consent obtained Time out performed: Yes Sedative: etomidate Mg given: 20 Paralytic: rocuronium Mg given: 50 Laryngoscope: Zonia ET tube size: 7.5 ET tube uncuffed: Yes Tube secured depth (cm): 22 Tube secured location: lips Tube placement confirmation: visualized tube passing through cords, equal breath sounds bilaterally and confirmation by capnometry Patient tolerated procedure: no complications Intubation complications: hypoxia
--- NOTE | 2024-08-15 10:52 | W.PM.CCHP ---
Procedures Date of Service Date of Service: 08/15/24 Central Line Placement Right IJ: Consent for Procedure: Elective - informed consent obtained Time out performed: Yes Sterile Technique Used: Yes Patient placed on monitor/pulse ox: Yes MD prep: mask, gown and gloves Central line prep: Chlorhexidine scrub Ultrasound used for placement: Yes Central line lumen inserted: triple Post procedure: sutured in place, good blood return, all ports aspirated, flushed, capped and sterile dressing applied Post procedure x-ray: other (awaiting chest x-ray) Patient tolerated procedure: well and no complications
[2024-08-15 11:00] LABS: ABG Base Excess -12.4 mmol/L; ABG HCO3 17 mmol/L (22-26); ABG pCO2 58 mmHg (32-45); ABG pH 7.08 (7.35-7.45); ABG pO2 73 mmHg (83-108)
[2024-08-15] MEDS: Sodium Bicarbonate 8.4% 50 MEQ/50 ML SYRINGE IVPUSH ×4 (11:40→13:55)
[2024-08-15 12:11] LABS: VBG HCO3 24 mmol/L (22-26); VBG pCO2 70 mmHg; VBG pH 7.13 (7.32-7.43); VBG pO2 68 mmHg
[2024-08-15 12:15] LABS: Venous Blood Gas Refer to POC result
[2024-08-15] MEDS: Furosemide 200 MG in 0.9 % Sodium Chloride 80 ML IVCONT (12:24)
[2024-08-15] MEDS: Sodium Bicarbonate 8.4% 50 MEQ in Dextrose 5 % 950 ML IV (12:33)
[2024-08-15] MEDS: Vasopressin 20 UNIT/100 ML INFUS..BTL 9 UNIT IVCONT ×2 (13:47→22:13)
[2024-08-15] MEDS: Calcium Chloride 1 GM/10 ML SYRINGE IVPUSH ×2 (14:00→14:48)
[2024-08-15 14:04] LABS: Hematocrit 31.5 % (37.0-47.0); Hemoglobin 10.2 g/dl (12.0-16.0); Mean Corpuscular HGB Conc 32.4 g/dl (31.0-35.0); Mean Corpuscular Hemoglobin 28.2 pg (27.0-33.0); Mean Platelet Volume 11.9 fL (9.4-12.3); NRBC Pct Auto 0.3 /100WBC (0.0-0.2); Platelet Count 303 X10*3/uL (160-400); Red Blood Count 3.62 X10*6/uL (4.20-5.50); Red Cell Distribution Width 16.6 % (11.0-16.0)
[2024-08-15 14:06] LABS: White Blood Count 30.6 X10*3/uL (4.8-10.8)
[2024-08-15 14:07] LABS: Venous Blood Gas Refer to POC result
[2024-08-15 14:09] LABS: VBG HCO3 37 mmol/L (22-26); VBG pCO2 75 mmHg; VBG pO2 74 mmHg
[2024-08-15 14:20] LABS: Alanine Aminotransferase 113 U/L (0-31); Albumin Level 2.5 g/dL (3.5-5.0); Alkaline Phosphatase 144 U/L (39-117); Anion Gap 21 (12-20); Aspartate Amino Transferase 222 U/L (5-31); Bilirubin Total 3.8 mg/dL (0.0-1.0); Blood Urea Nitrogen 39 mg/dL (9-16); Carbon Dioxide 34 mmol/L (22-29); Chloride 100 mmol/L (96-108); Creatinine Clr Calc Pharmacy 24.7; Estimated Glomerular Filt Rate 23; Glucose Random 269 mg/dL (60-115); Magnesium 2.3 mg/dL (1.6-2.6); Phosphorus 9.3 mg/dL (2.7-4.5); Potassium 3.6 mmol/L (3.3-5.1); Sodium 151 mmol/L (135-145)
[2024-08-15 14:21] LABS: Band Neutrophils Percent 6 % (3-5); Lactic Acid 5.5 mmol/L (0.5-2.0); Lymphocytes Absolute Manual 0.6 X10*3/uL (1.2-4.9); Lymphocytes Percent Manual 2 % (20-40); Metamyelocytes Absolute 0.3 X10*3/uL; Metamyelocytes Percent 1 %; Monocytes Absolute Manual 0.3 X10*3/uL (0.1-1.2); Monocytes Percent Manual 1 % (2-11); Neutrophils Absolute Manual 29.4 X10*3/uL (2.0-8.3); Neutrophils Percent Manual 90 % (45-73); Nucleated Red Blood Cells 1 /100WBC (0-0)
[2024-08-15 14:23] LABS: Hypochromasia 1+ (5-14) /OIF; Ovalocytes 1+ (5-14) /OIF; Polychromasia 1+ (0-2) /OIF; RBC Morphology NOTED; Schistocytes 1+ (0-2) /OIF; Toxic Vacuolation PRESENT
[2024-08-15 14:24] LABS: Platelet Estimate NORMAL (NORMAL); Platelet Morphology Comment NORMAL
[2024-08-15] MEDS: Albumin Human 25 % 50 ML 100 ML IV (14:48)
[2024-08-15] MEDS: DEXTROSE 5% IV (14:59)
[2024-08-15] MEDS: SODIUM BICARBONATE IV (14:59)
[2024-08-15] MEDS: Norepinephrine Bitartrate/D5W 8 MG/250 ML PLAST..BAG 62.87 MG IVCONT (15:30)
[2024-08-15 16:00] LABS: Reflex Lactate? Lactic Acid Added
[2024-08-15 16:38] LABS: ~Lactic Acid-LAB USE ONLY 7.9 mmol/L (0.5-2.0)
--- NOTE | 2024-08-15 16:46 | ECG_ITS ---
Test Reason : CP Blood Pressure : / mmHG Vent. Rate : 099 BPM Atrial Rate : 099 BPM P-R Int : 152 ms QRS Dur : 132 ms QT Int : 352 ms P-R-T Axes : 000 016 012 degrees QTc Int : 451 ms Normal sinus rhythm Non-specific intra-ventricular conduction block Minimal voltage criteria for LVH, may be normal variant ( Bebo product ) Abnormal ECG When compared to the previous EKG of Jul, atrial pacing not clearly seen Referred By: Addie Suh Electronically Signed By:ELSY GLASGOW
--- NOTE | 2024-08-15 17:48 | PC.NURSE ---
Approximately?09:20am? patient?became agitated and combative, IM haldol given per DEC. 02sat?75% on HFNC 60L/100%? requiring mechanical ventilation. Laxis gtt and Bicarb gtt initiated, Bicarb amps given x4, Calcium Chloride?amp given x2,? albumin, and? levophed titrated per DEC.
[2024-08-15] MEDS: propofoL 1,000 MG/100 ML VIAL 14.47 MG IVCONT (18:14)
[2024-08-15 18:16] LABS: VBG Base Excess 1.5 mmol/L; VBG HCO3 25 mmol/L (22-26); VBG pCO2 39 mmHg; VBG pH 7.42 (7.32-7.43); VBG pO2 80 mmHg
[2024-08-15] MEDS: Warfarin Sodium 5 MG TABLET PO (18:17)
[2024-08-15 18:18] LABS: Venous Blood Gas Refer to POC result
[2024-08-15 18:20] LABS: Vancomycin Random 29.6 mcg/mL (15-20)
[2024-08-15 18:23] LABS: Reflex Lactate? 2 Y
[2024-08-15 18:29] LABS: Anion Gap 23 (12-20); Blood Urea Nitrogen 42 mg/dL (9-16); Carbon Dioxide 25 mmol/L (22-29); Chloride 97 mmol/L (96-108); Creatinine Clr Calc Pharmacy 26.5; Estimated Glomerular Filt Rate 25; Glucose Random 290 mg/dL (60-115); Magnesium 2.2 mg/dL (1.6-2.6); Phosphorus 4.7 mg/dL (2.7-4.5); Potassium 3.1 mmol/L (3.3-5.1); Sodium 142 mmol/L (135-145)
[2024-08-15 18:48] LABS: ~Lactic Acid-LAB USE ONLY 6.8 mmol/L (0.5-2.0)
[2024-08-15] MEDS: Potassium Chloride/H20 40 MEQ/100 ML PIGGYBACK 100 MEQ IV (19:02)
[2024-08-15] MEDS: Chlorhexidine Gluc Oral Rinse 15 ML MOUTHWASH BUCCAL (19:54)
[2024-08-15] MEDS: fentaNYL citrate/NS 1,000 MCG/100 ML PLAST..BAG 2.5 MCG IVCONT (19:58)
[2024-08-15] MEDS: propofoL 1,000 MG/100 ML VIAL 19.3 MG IVCONT (23:34)
[2024-08-16] VITALS (51 sets, daily range): BP systolic 78–126; BP diastolic 33–76; PULSE 84–137; RESP 24; TEMP 34.9–37.9; O2SAT 92–98; BMI 33.4
[2024-08-16 00:51] LABS: ABG Refer to POC result
[2024-08-16] MEDS: methylPREDNISolone Sod Succ 125 MG/2 ML VIAL 250 MG IVPUSH ×4 (02:06→20:06)
[2024-08-16] MEDS: propofoL 1,000 MG/100 ML VIAL 19.3 MG IVCONT ×4 (03:59→19:05)
[2024-08-16 05:17] LABS: VBG Base Excess 12.9 mmol/L; VBG HCO3 37 mmol/L (22-26); VBG pCO2 45 mmHg; VBG pH 7.51 (7.32-7.43); VBG pO2 53 mmHg
[2024-08-16] MEDS: Norepinephrine Bitartrate/D5W 8 MG/250 ML PLAST..BAG 11.43 MG IVCONT (05:19)
[2024-08-16 05:20] LABS: Venous Blood Gas Refer to POC result
[2024-08-16] MEDS: Furosemide 200 MG in 0.9 % Sodium Chloride 80 ML IVCONT (05:20)
[2024-08-16] MEDS: Levothyroxine Sodium 100 MCG/5 ML VIAL 12.5 MCG IVPUSH (05:22)
[2024-08-16] MEDS: Pantoprazole Sodium 40 MG/10 ML VIAL IVPUSH (05:30)
[2024-08-16 05:44] LABS: Basophils Percent Auto 0.1 % (0-2); Hematocrit 29.2 % (37.0-47.0); Hemoglobin 9.4 g/dl (12.0-16.0); Imm Gran Abs Auto 0.12 X10*3/uL (0.00-0.03); Imm Gran Pct Auto 0.8 % (0.0-0.4); Lymphocytes Absolute Auto 0.8 X10*3/uL (1.2-4.9); Lymphocytes Percent Auto 5.3 % (20-40); MANUAL DIFF FLAG SCAN; Mean Corpuscular HGB Conc 32.2 g/dl (31.0-35.0); Mean Corpuscular Hemoglobin 27.3 pg (27.0-33.0); Mean Corpuscular Volume 84.9 fL (80.0-98.0); Mean Platelet Volume 12.4 fL (9.4-12.3); Monocytes Absolute Auto 0.3 X10*3/uL (0.1-1.2); Monocytes Percent Auto 2.2 % (2-11); NRBC Pct Auto 0.3 /100WBC (0.0-0.2); Neutrophils Absolute Auto 13.4 x10*3/uL (2.0-8.3); Neutrophils Percent Auto 91.6 % (45-73); Platelet Count 201 X10*3/uL (160-400); Red Blood Count 3.44 X10*6/uL (4.20-5.50); Red Cell Distribution Width 16.9 % (11.0-16.0); SCAN SMEAR FLAG 1; White Blood Count 14.6 X10*3/uL (4.8-10.8)
[2024-08-16 06:00] LABS: Albumin Level 2.9 g/dL (3.5-5.0); Anion Gap 16 (12-20); Blood Urea Nitrogen 49 mg/dL (9-16); Calcium 8.5 mg/dL (8.4-10.2); Carbon Dioxide 33 mmol/L (22-29); Chloride 96 mmol/L (96-108); Creatinine Clr Calc Pharmacy 21.9; Estimated Glomerular Filt Rate 19; Glucose Random 156 mg/dL (60-115); Phosphorus 4.5 mg/dL (2.7-4.5); Potassium 3.9 mmol/L (3.3-5.1); Sodium 141 mmol/L (135-145)
[2024-08-16 06:02] LABS: INTERNATIONAL NORM RATIO 6.7 (0.9-1.1)
[2024-08-16 06:09] LABS: SLIDE REVIEW VERIFIED
[2024-08-16] MEDS: Albumin Human 25 % 100 ML IV (07:46)
[2024-08-16] MEDS: Atorvastatin Calcium 20 MG TABLET PO (07:50)
[2024-08-16] MEDS: Chlorhexidine Gluc Oral Rinse 15 ML MOUTHWASH BUCCAL ×3 (07:50→20:06)
[2024-08-16] MEDS: Cyanocobalamin (Vitamin B-12) 500 MCG TABLET PO (07:51)
[2024-08-16] MEDS: cefEPime HCl/D5W 2 GM/50 ML PIGGYBACK IV ×2 (07:56→15:33)
[2024-08-16] MEDS: 0.9 % Sodium Chloride Flush 3 ML SYRINGE IVFLUSH ×2 (07:57→14:57)
--- NOTE | 2024-08-16 08:11 | P.PNCC_ITS ---
Subjective Subjective Date of Service: 08/16/24 Interval History: interval worsening of hemodynamics, now intubated, on vasopressors; clinical status critical and guarded Critical Care Time (minutes): 60 Physical Exam 2 Vital Signs: Vital Signs: Last Vital Signs Temp 99.9 F 08/16/24 06:53 Pulse 97 08/16/24 07:10 Resp 24 H 08/16/24 06:53 BP 110/64 08/16/24 07:10 Pulse Ox 97 08/16/24 06:53 O2 Del Method Mechanical Ventil ation 08/16/24 06:53 O2 Flow Rate 50 08/15/24 09:00 FiO2 50 08/16/24 07:29 BMI result Body Mass Index 33.4 Const: Other: intubated, sedated General: no acute distress HEENT: Head: Yes normal to inspection, Yes normocephalic and Yes atraumatic Eyes: General: appearance normal, both eyes and all related structures Neck: Neck: Yes normal visual inspection, Yes full ROM, Yes no meningeal signs, Yes trachea midline and Yes supple Chest: Chest palpation & inspection: normal inspection of the chest Resp: Other: some appreciable rhonchi and rales; no appreciable wheezing Effort & Inspection: normal respiratory effort Cardio: Rate: regular rate Rhythm: abnormal rhythm GI: Inspection: Yes normal to inspection, No Abdominal wall edema and No distended Palpation (GI): Soft to palpation, not firm, nontender, no guarding and not rigid Skin: General skin exam: no rashes or lesions noted Neuro: General: tone normal and no meningeal signs Extrem: Other: appreciable 1+ pitting edema to bilateral shins General: Yes normal to inspection and Yes full ROM Psych: Other: unable to assess Objective Data Labs 08/16/24 05:05 08/16/24 05:05 Labs: Laboratory Results - last 24 hr 08/15/24 08/15/24 08/15/24 10:49 12:04 13:56 WBC 30.6 H* RBC 3.62 L Hgb 10.2 L Hct 31.5 L MCV 87.0 MCH 28.2 MCHC 32.4 RDW 16.6 H Plt Count 303 D MPV 11.9 Immature Gran % (Auto) Cancelled Neut % (Auto) Cancelled Lymph % (Auto) Cancelled [place] % (Auto) Cancelled Eos % (Auto) Cancelled Baso % (Auto) Cancelled Lymph # (Auto) Cancelled [place] # (Auto) Cancelled Eos # (Auto) Cancelled Baso # (Auto) Cancelled Abs Immat Gran (auto) Cancelled Absolute Neuts (auto) Cancelled Absolute Nucleated RBC 0.090 H Nucleated RBC % (auto) 0.3 H Neutrophils % (Manual) 90 H Band Neutrophils % 6 H Lymphocytes % (Manual) 2 L Monocytes % (Manual) 1 L Metamyelocytes % 1 Abs Neuts (Manual) 29.4 H Lymphocytes # (Manual) 0.6 L Monocytes # (Manual) 0.3 Metamyelocytes # 0.3 Nucleated RBCs 1 H Toxic Vacuolation PRESENT Platelet Estimate NORMAL Plt Morphology Comment NORMAL RBC Morphology NOTED Polychromasia 1+ (0-2) Hypochromasia 1+ (5-14) Ovalocytes 1+ (5-14) Schistocytes 1+ (0-2) Smear Tech's Comments PT INR O2 Saturation 83.0 ABG pH at Pt Temp 7.08 L* ABG pCO2 at Pt Temp 58 H ABG pO2 at Pt Temp 73 L ABG HCO3 17 L ABG Base Excess (Actual) -12.4 VBG pH 7.13 L* VBG pCO2 70 VBG pO2 68 VBG HCO3 24 VBG O2 Saturation 82.0 VBG Base Excess -6.0 Sodium 151 H Potassium 3.6 Chloride 100 Carbon Dioxide 34 H Anion Gap 21 H BUN 39 H Creatinine 2.17 H Estim Creat Clear Calc 24.7 Estimated GFR 23 Random Glucose 269 H Lactic Acid 5.5 H* Lactic Acid F/U @ 2Hr Lactic Acid F/U @ 4Hr Calcium 8.0 L D Phosphorus 9.3 H Magnesium 2.3 Total Bilirubin 3.8 H AST 222 H ALT 113 H Alkaline Phosphatase 144 H Total Protein 6.0 L Albumin 2.5 L Random Vancomycin 08/15/24 08/15/24 08/15/24 14:03 15:46 16:19 WBC RBC Hgb Hct MCV MCH MCHC RDW Plt Count MPV Immature Gran % (Auto) Neut % (Auto) Lymph % (Auto) [place] % (Auto) Eos % (Auto) Baso % (Auto) Lymph # (Auto) [place] # (Auto) Eos # (Auto) Baso # (Auto) Abs Immat Gran (auto) Absolute Neuts (auto) Absolute Nucleated RBC Nucleated RBC % (auto) Neutrophils % (Manual) Band Neutrophils % Lymphocytes % (Manual) Monocytes % (Manual) Metamyelocytes % Abs Neuts (Manual) Lymphocytes # (Manual) Monocytes # (Manual) Metamyelocytes # Nucleated RBCs Toxic Vacuolation Platelet Estimate Plt Morphology Comment RBC Morphology Polychromasia Hypochromasia Ovalocytes Schistocytes Smear Tech's Comments PT INR O2 Saturation ABG pH at Pt Temp ABG pCO2 at Pt Temp ABG pO2 at Pt Temp ABG HCO3 ABG Base Excess (Actual) VBG pH 7.30 L VBG pCO2 75 VBG pO2 74 VBG HCO3 37 H VBG O2 Saturation 90.0 VBG Base Excess 9.0 Sodium Potassium Chloride Carbon Dioxide Anion Gap BUN Creatinine Estim Creat Clear Calc Estimated GFR Random Glucose Lactic Acid Lactic Acid F/U @ 2Hr 7.9 H* Lactic Acid F/U @ 4Hr Calcium Phosphorus Magnesium Total Bilirubin AST ALT Alkaline Phosphatase Total Protein Albumin Random Vancomycin 29.6 H* 08/15/24 08/15/24 08/15/24 17:59 18:12 18:30 WBC RBC Hgb Hct MCV MCH MCHC RDW Plt Count MPV Immature Gran % (Auto) Neut % (Auto) Lymph % (Auto) [place] % (Auto) Eos % (Auto) Baso % (Auto) Lymph # (Auto) [place] # (Auto) Eos # (Auto) Baso # (Auto) Abs Immat Gran (auto) Absolute Neuts (auto) Absolute Nucleated RBC Nucleated RBC % (auto) Neutrophils % (Manual) Band Neutrophils % Lymphocytes % (Manual) Monocytes % (Manual) Metamyelocytes % Abs Neuts (Manual) Lymphocytes # (Manual) Monocytes # (Manual) Metamyelocytes # Nucleated RBCs Toxic Vacuolation Platelet Estimate Plt Morphology Comment RBC Morphology Polychromasia Hypochromasia Ovalocytes Schistocytes Smear Tech's Comments PT INR O2 Saturation ABG pH at Pt Temp ABG pCO2 at Pt Temp ABG pO2 at Pt Temp ABG HCO3 ABG Base Excess (Actual) VBG pH 7.42 VBG pCO2 39 VBG pO2 80 VBG HCO3 25 VBG O2 Saturation 94.0 VBG Base Excess 1.5 Sodium 142 Potassium 3.1 L Chloride 97 Carbon Dioxide 25 Anion Gap 23 H BUN 42 H Creatinine 2.02 H Estim Creat Clear Calc 26.5 Estimated GFR 25 Random Glucose 290 H Lactic Acid Lactic Acid F/U @ 2Hr Lactic Acid F/U @ 4Hr 6.8 H* Calcium 10.0 D Phosphorus 4.7 H Magnesium 2.2 Total Bilirubin AST ALT Alkaline Phosphatase Total Protein Albumin Random Vancomycin 08/16/24 08/16/24 05:05 05:06 WBC 14.6 H RBC 3.44 L Hgb 9.4 L Hct 29.2 L MCV 84.9 MCH 27.3 MCHC 32.2 RDW 16.9 H Plt Count 201 D MPV 12.4 H Immature Gran % (Auto) 0.8 H Neut % (Auto) 91.6 H Lymph % (Auto) 5.3 L [place] % (Auto) 2.2 Eos % (Auto) 0.0 Baso % (Auto) 0.1 Lymph # (Auto) 0.8 L [place] # (Auto) 0.3 Eos # (Auto) 0.0 Baso # (Auto) 0.0 Abs Immat Gran (auto) 0.12 H Absolute Neuts (auto) 13.4 H Absolute Nucleated RBC 0.040 H Nucleated RBC % (auto) 0.3 H Neutrophils % (Manual) Band Neutrophils % Lymphocytes % (Manual) Monocytes % (Manual) Metamyelocytes % Abs Neuts (Manual) Lymphocytes # (Manual) Monocytes # (Manual) Metamyelocytes # Nucleated RBCs Toxic Vacuolation Platelet Estimate Plt Morphology Comment RBC Morphology Polychromasia Hypochromasia Ovalocytes Schistocytes Smear Tech's Comments VERIFIED PT 78.0 H D INR 6.7 H* D O2 Saturation ABG pH at Pt Temp ABG pCO2 at Pt Temp ABG pO2 at Pt Temp ABG HCO3 ABG Base Excess (Actual) VBG pH 7.51 H VBG pCO2 45 VBG pO2 53 VBG HCO3 37 H VBG O2 Saturation 80.0 VBG Base Excess 12.9 Sodium 141 Potassium 3.9 D Chloride 96 Carbon Dioxide 33 H Anion Gap 16 BUN 49 H Creatinine 2.48 H Estim Creat Clear Calc 21.9 Estimated GFR 19 Random Glucose 156 H Lactic Acid Lactic Acid F/U @ 2Hr Lactic Acid F/U @ 4Hr Calcium 8.5 D Phosphorus 4.5 Magnesium 2.0 Total Bilirubin AST ALT Alkaline Phosphatase Total Protein Albumin 2.9 L Random Vancomycin 29.0 H* Microbiology Microbiology Results: Microbiology 08/14/24 Unknown Urine Catheterized - Gloria Catheter Urine Culture - Final No growth. 08/13/24 08:03 Blood - Venous Blood Culture - Preliminary No growth after 48 hours. 08/13/24 08:03 Blood - Venous Blood Culture - Preliminary No growth after 48 hours. 08/14/24 07:23 Blood - Venous Blood Culture - Preliminary No growth after 24 hours. 08/14/24 07:23 Blood - Venous Blood Culture - Preliminary No growth after 24 hours. Progress Note: A&P Assessment and plan (1) Acute and chronic respiratory failure: Status: Acute (2) Pneumonia: Status: Acute (3) Interstitial lung disease: Status: Acute (4) COPD (chronic obstructive pulmonary disease): Status: Acute (5) Shock: Status: Acute Plan Patient is a 68 Y F w/ aortic stenosis s/p mechanical valve on warfarin, s/p TAVR, paroxysmal atrial fibrillation, c/b amiodarone toxicity and ILD, s/p pacemaker, and COPD c/b chronic respiratory failure on 3L NC and SOHAIL non- complant w/ CPAP, presenting initially to the emergency department on 08/13 w/ dyspnea, cough, found to have acute on chronic respiratory failure, placed on HFNC, treated empirically for pneumonia, admitted medicine; on 08/14 AM, patient developed worsening respiratory failure, admitted ICU N: intubated, sedated w/ propofol, fentanyl gtts; prior to intubation, severe agitation/anxiety/delirium; per family, reportedly preliminary diagnosis of dementia CV: hypotension, likely distributive; norepinephrine, vasopressin gtts; wean as tolerated; paroxysmal atrial fibrillation; aortic stenosis s/p TAVR, mitral valve replacement R: acute on chronic respiratory failure, intubated 08/15; exceedingly co-morbid w/ ILD, COPD, and c/f pneumonia, pulmonary edema; appreciate pulmonology recommendations; steroids, empiric antibiotics, diuresis GI: NPO : acute renal insufficiency, likely pre-renal; to closely monitor/replete electrolytes, renal indices; dieresis w/ furosemide gtt H: mitral valve replacement, holding warfarin given supratherapeutic INR ID: c/f pneumonia, empiric antibiotics E: diabetes mellitus, insulin regimen P: as described above Quality Stroke Does the patient have a stroke diagnosis?: No VTE Prior VTE?: No VTE Risk Level:: Medical - moderate - high VTE Device Contraindication: N/A - Device Ordered VTE Drug Contraindication: N/A - Med Ordered
[2024-08-16] MEDS: Calcium Chloride 1 GM/10 ML SYRINGE IVPUSH (08:25)
[2024-08-16] MEDS: Azithromycin 500 MG in 0.9 % Sodium Chloride 250 ML 125 MG IV (08:46)
[2024-08-16] MEDS: Vasopressin 20 UNIT/100 ML INFUS..BTL 9 UNIT IVCONT ×2 (09:02→20:03)
[2024-08-16 18:16] LABS: Anion Gap 17 (12-20); Blood Urea Nitrogen 62 mg/dL (9-16); Calcium 8.9 mg/dL (8.4-10.2); Carbon Dioxide 32 mmol/L (22-29); Chloride 96 mmol/L (96-108); Creatinine Clr Calc Pharmacy 17.9; Estimated Glomerular Filt Rate 15; Glucose Random 162 mg/dL (60-115); Magnesium 2.2 mg/dL (1.6-2.6); Phosphorus 4.5 mg/dL (2.7-4.5); Potassium 3.7 mmol/L (3.3-5.1); Sodium 141 mmol/L (135-145)
[2024-08-16 18:34] LABS: Glucose, Whole Blood 158 mg/dL (60-115)
[2024-08-16 23:42] LABS: Glucose, Whole Blood 182 mg/dL (60-115)
[2024-08-17] VITALS (41 sets, daily range): BP systolic 85–122; BP diastolic 39–70; PULSE 69–120; RESP 13–24; TEMP 35–38.1; O2SAT 88–93; BMI 34.5
[2024-08-17] MEDS: 0.9 % Sodium Chloride Flush 3 ML SYRINGE IVFLUSH ×3 (00:03→16:55)
[2024-08-17] MEDS: Insulin Lispro 100 UNIT/ML 3 ML VIAL SUBCUT ×3 (00:04→18:18)
[2024-08-17] MEDS: cefEPime HCl/D5W 2 GM/50 ML PIGGYBACK IV ×2 (00:08→07:44)
[2024-08-17] MEDS: propofoL 1,000 MG/100 ML VIAL 19.3 MG IVCONT ×6 (00:09→23:06)
[2024-08-17] MEDS: fentaNYL citrate/NS 1,000 MCG/100 ML PLAST..BAG 2.5 MCG IVCONT (00:18)
[2024-08-17] MEDS: methylPREDNISolone Sod Succ 125 MG/2 ML VIAL 250 MG IVPUSH (02:04)
[2024-08-17 05:11] LABS: VBG Base Excess 13.1 mmol/L; VBG HCO3 37 mmol/L (22-26); VBG pCO2 45 mmHg; VBG pH 7.52 (7.32-7.43); VBG pO2 47 mmHg
[2024-08-17 05:17] LABS: Glucose, Whole Blood 154 mg/dL (60-115)
[2024-08-17 05:20] LABS: MANUAL DIFF FLAG NO
[2024-08-17 05:22] LABS: Basophils Percent Auto 0.1 % (0-2); Hematocrit 24.9 % (37.0-47.0); Hemoglobin 8.2 g/dl (12.0-16.0); Imm Gran Abs Auto 0.25 X10*3/uL (0.00-0.03); Imm Gran Pct Auto 2.4 % (0.0-0.4); Lymphocytes Absolute Auto 0.6 X10*3/uL (1.2-4.9); Lymphocytes Percent Auto 5.7 % (20-40); Mean Corpuscular HGB Conc 32.9 g/dl (31.0-35.0); Mean Corpuscular Hemoglobin 27.7 pg (27.0-33.0); Mean Corpuscular Volume 84.1 fL (80.0-98.0); Mean Platelet Volume 12.7 fL (9.4-12.3); Monocytes Absolute Auto 0.2 X10*3/uL (0.1-1.2); Monocytes Percent Auto 2.2 % (2-11); NRBC Pct Auto 0.7 /100WBC (0.0-0.2); Neutrophils Absolute Auto 9.4 x10*3/uL (2.0-8.3); Neutrophils Percent Auto 89.6 % (45-73); Platelet Count 165 X10*3/uL (160-400); Red Blood Count 2.96 X10*6/uL (4.20-5.50); Red Cell Distribution Width 16.8 % (11.0-16.0); White Blood Count 10.5 X10*3/uL (4.8-10.8)
[2024-08-17 05:32] LABS: Venous Blood Gas Refer to POC result
[2024-08-17 05:34] LABS: Prothrombin Time 86.8 SEC (10.9-12.4)
[2024-08-17 05:35] LABS: INTERNATIONAL NORM RATIO 7.4 (0.9-1.1)
[2024-08-17] MEDS: Levothyroxine Sodium 100 MCG/5 ML VIAL 12.5 MCG IVPUSH (05:35)
[2024-08-17] MEDS: Pantoprazole Sodium 40 MG/10 ML VIAL IVPUSH (05:38)
[2024-08-17] MEDS: Furosemide 200 MG in 0.9 % Sodium Chloride 80 ML IVCONT (05:38)
[2024-08-17] MEDS: Norepinephrine Bitartrate/D5W 8 MG/250 ML PLAST..BAG 4.29 MG IVCONT (05:40)
[2024-08-17 05:45] LABS: Albumin Level 3.1 g/dL (3.5-5.0); Anion Gap 18 (12-20); Blood Urea Nitrogen 74 mg/dL (9-16); Calcium 9.1 mg/dL (8.4-10.2); Carbon Dioxide 32 mmol/L (22-29); Chloride 96 mmol/L (96-108); Creatinine Clr Calc Pharmacy 14.9; Estimated Glomerular Filt Rate 12; Glucose Random 154 mg/dL (60-115); Magnesium 2.3 mg/dL (1.6-2.6); Phosphorus 4.8 mg/dL (2.7-4.5); Potassium 3.8 mmol/L (3.3-5.1); Sodium 142 mmol/L (135-145)
[2024-08-17 06:03] LABS: Vancomycin Random 25.1 mcg/mL (15-20)
--- NOTE | 2024-08-17 06:16 | HE.PHANOTE ---
Re vanc Renal function continuing to decline. Level drawn 3 hours earlier than ordered, still high at 25.1. At current CrCl, not projected to fall below 20 mg/L until tomorrow. Will continue to hold dose and recheck a random level tomorrow at 0900.
[2024-08-17] MEDS: Vasopressin 20 UNIT/100 ML INFUS..BTL 9 UNIT IVCONT ×2 (06:43→17:32)
[2024-08-17] MEDS: Atorvastatin Calcium 20 MG TABLET PO (07:39)
[2024-08-17] MEDS: Cyanocobalamin (Vitamin B-12) 500 MCG TABLET PO (07:39)
[2024-08-17] MEDS: Chlorhexidine Gluc Oral Rinse 15 ML MOUTHWASH BUCCAL ×3 (07:39→19:53)
[2024-08-17] MEDS: Azithromycin 500 MG in 0.9 % Sodium Chloride 250 ML 125 MG IV (07:44)
[2024-08-17] MEDS: methylPREDNISolone Sod Succ 125 MG/2 ML VIAL 60 MG IVPUSH ×3 (08:47→19:53)
--- NOTE | 2024-08-17 09:41 | MHC.CLN ---
PT IS INTUBATED AND SEDATED (OVER WEEKEND) CURRENTLY NPO IF TF NEEDED; RECOMMEND NEPRO AT MAX GOAL RATE 20ML/HR TO PROVIDE 864KCALS (1374KCALS WITH SEDATION; 23KCALS/KG), 39G PROTEIN, 349ML FREE WATER FROM FORMULA MONITOR TOLERANCE AND LYTES FOLLOWING FOR DIET ADVANCEMENT SEE ALSO FULL NUTRITION ASSESSMENT
--- NOTE | 2024-08-17 10:11 | P.PNCC_ITS ---
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 Treated with high-dose systemic glucocorticoids, empiric antibiotics, and diuresis with hospital course further complicated by acute renal failure. Now with some improvement. No events overnight. Critical Care Time (minutes): 60 Physical Exam 2 Vital Signs: Vital Signs: Last Vital Signs Temp 99.9 F 08/17/24 09:00 Pulse 71 08/17/24 09:02 Resp 19 08/17/24 09:00 BP 85/42 L 08/17/24 09:02 Pulse Ox 88 L 08/17/24 09:00 O2 Del Method Mechanical Ventil ation 08/17/24 09:00 O2 Flow Rate 50 08/15/24 09:00 FiO2 21 08/17/24 09:00 BMI result Body Mass Index 34.5 Const: General: no acute distress and other (Sedated on the vent) Eyes: Sclerae: sclerae normal EOM: EOMs intact bilaterally Neck: Neck: Yes no lymphadenopathy, Yes trachea midline and Yes supple Resp: Auscultation: crackles (Bilateral) Cardio: Rate: regular rate Rhythm: regular rhythm Heart sounds: no gallops, no murmurs and no rubs GI: Palpation (GI): Soft to palpation and Other GI palpation findings present ( Nontender) Auscultation: normal bowel sounds Extrem: General: No clubbing, No cyanosis and Yes edema (Trace bilateral) Objective Data Labs 08/17/24 05:01 08/17/24 05:01 Labs: Laboratory Results - last 24 hr 08/16/24 08/16/24 08/16/24 17:54 18:30 23:38 WBC RBC Hgb Hct MCV MCH MCHC RDW Plt Count MPV Immature Gran % (Auto) Neut % (Auto) Lymph % (Auto) [place] % (Auto) Eos % (Auto) Baso % (Auto) Lymph # (Auto) [place] # (Auto) Eos # (Auto) Baso # (Auto) Abs Immat Gran (auto) Absolute Neuts (auto) Absolute Nucleated RBC Nucleated RBC % (auto) PT INR VBG pH VBG pCO2 VBG pO2 VBG HCO3 VBG O2 Saturation VBG Base Excess Sodium 141 Potassium 3.7 Chloride 96 Carbon Dioxide 32 H Anion Gap 17 BUN 62 H Creatinine 3.05 H Estim Creat Clear Calc 17.9 Estimated GFR 15 POC Glucose 158 H 182 H Random Glucose 162 H Calcium 8.9 Phosphorus 4.5 Magnesium 2.2 Albumin Random Vancomycin 08/17/24 08/17/24 08/17/24 05:01 05:02 05:13 WBC 10.5 RBC 2.96 L Hgb 8.2 L Hct 24.9 L MCV 84.1 MCH 27.7 MCHC 32.9 RDW 16.8 H Plt Count 165 MPV 12.7 H Immature Gran % (Auto) 2.4 H Neut % (Auto) 89.6 H Lymph % (Auto) 5.7 L [place] % (Auto) 2.2 Eos % (Auto) 0.0 Baso % (Auto) 0.1 Lymph # (Auto) 0.6 L [place] # (Auto) 0.2 Eos # (Auto) 0.0 Baso # (Auto) 0.0 Abs Immat Gran (auto) 0.25 H Absolute Neuts (auto) 9.4 H Absolute Nucleated RBC 0.070 H Nucleated RBC % (auto) 0.7 H PT 86.8 H INR 7.4 H* VBG pH 7.52 H VBG pCO2 45 VBG pO2 47 VBG HCO3 37 H VBG O2 Saturation 71.0 VBG Base Excess 13.1 Sodium 142 Potassium 3.8 Chloride 96 Carbon Dioxide 32 H Anion Gap 18 BUN 74 H Creatinine 3.66 H Estim Creat Clear Calc 14.9 Estimated GFR 12 POC Glucose 154 H Random Glucose 154 H Calcium 9.1 Phosphorus 4.8 H Magnesium 2.3 Albumin 3.1 L Random Vancomycin 25.1 H* Microbiology Microbiology Results: Microbiology 08/14/24 07:23 Blood - Venous Blood Culture - Preliminary No growth after 48 hours. 08/14/24 07:23 Blood - Venous Blood Culture - Preliminary No growth after 48 hours. 08/14/24 Unknown Urine Catheterized - Gloria Catheter Urine Culture - Final No growth. 08/13/24 08:03 Blood - Venous Blood Culture - Preliminary No growth after 48 hours. 08/13/24 08:03 Blood - Venous Blood Culture - Preliminary No growth after 48 hours. Progress Note: A&P Assessment and plan (1) Abnormal CT scan, chest: Status: Acute (2) PAF (paroxysmal atrial fibrillation): Status: Acute (3) Shock: Status: Acute (4) Acute hypoxic respiratory failure: Status: Acute (5) EUGENIO (acute kidney injury): Status: Resolved Plan Assessment: 68-year-old lady admitted on 08/13/2024 with acute hypoxic respiratory failure with likely inflammatory etiology, now requiring ventilatory support. Plan: Neuro: Steroid induced encephalopathy secondary to high-dose systemic glucocorticoids, expect to improve with steroid taper. Cardiac: Shock, undifferentiated, improving. Continue to titrate off pressor support as tolerated. Pulmonary: Acute hypoxic respiratory failure, likely inflammatory in origin. Improving with systemic glucocorticoids. Will obtain CT chest. Continue to titrate off ventilatory support as tolerated. Renal: EUGENIO, secondary to shock. Non oliguric. Continue to monitor renal indices and urine output. Endo: No acute issues. GI: No acute issues. ID: Possible pneumonia, continue empiric broad-spectrum antibiotics. Cultures negative to date. Heme/Onc: Supratherapeutic INR on a background of acute kidney failure. Underlying MVR. INR goal of 2.5-3.5. Psych: No acute issues. Miscellaneous: No acute issues. Prophylaxis: Pneumatic compression, ppi Diet: Tube feeds Critical care time spent: 60 minutes Quality Stroke Does the patient have a stroke diagnosis?: No VTE Prior VTE?: No VTE Risk Level:: Medical - moderate - high VTE Device Contraindication: N/A - Device Ordered VTE Drug Contraindication: N/A - Med Ordered
[2024-08-17] MEDS: Phytonadione (Vit K1) 10 MG in 0.9 % Sodium Chloride 50 ML 51 MG IV (12:02)
[2024-08-17 12:06] LABS: Glucose, Whole Blood 154 mg/dL (60-115)
--- NOTE | 2024-08-17 13:36 | MHC.CM.PN ---
Pt required intubation on 08/15 d/t worsening WOB and blood gas results. Goals of care today include Chest CT to assist w/extubation assessment. Pt initially from home w/[facility]. CM to follow for changes in d/c planning needs
[2024-08-17 18:04] LABS: Glucose, Whole Blood 165 mg/dL (60-115)
[2024-08-17 20:39] LABS: VBG HCO3 32 mmol/L (22-26); VBG pCO2 37 mmHg; VBG pH 7.55 (7.32-7.43); VBG pO2 67 mmHg
[2024-08-17 20:45] LABS: Venous Blood Gas Refer to POC result
[2024-08-17 20:54] LABS: Albumin Level 3.1 g/dL (3.5-5.0); Anion Gap 21 (12-20); Blood Urea Nitrogen 95 mg/dL (9-16); Calcium 8.8 mg/dL (8.4-10.2); Carbon Dioxide 29 mmol/L (22-29); Chloride 96 mmol/L (96-108); Creatinine Clr Calc Pharmacy 12.2; Estimated Glomerular Filt Rate 10; Glucose Random 172 mg/dL (60-115); Magnesium 2.6 mg/dL (1.6-2.6); Phosphorus 6.1 mg/dL (2.7-4.5); Potassium 4.2 mmol/L (3.3-5.1); Sodium 142 mmol/L (135-145)
[2024-08-17] MEDS: Albumin Human 25 % 100 ML IV (21:08)
[2024-08-18] VITALS (44 sets, daily range): BP systolic 96–152; BP diastolic 41–66; PULSE 70–107; RESP 13–23; TEMP 34.8–39.3; O2SAT 87–97; BMI 36.6
[2024-08-18] LABS: Glucose, Whole Blood 177 mg/dL (60-115)
[2024-08-18] MEDS: Insulin Lispro 100 UNIT/ML 3 ML VIAL SUBCUT ×4 (00:02→17:37)
[2024-08-18] MEDS: methylPREDNISolone Sod Succ 125 MG/2 ML VIAL 60 MG IVPUSH ×3 (02:18→20:33)
[2024-08-18] MEDS: Albumin Human 25 % 100 ML IV ×3 (02:18→14:16)
[2024-08-18] MEDS: propofoL 1,000 MG/100 ML VIAL 19.3 MG IVCONT ×4 (03:51→18:08)
[2024-08-18] MEDS: Vasopressin 20 UNIT/100 ML INFUS..BTL 9 UNIT IVCONT ×2 (03:52→13:56)
[2024-08-18] MEDS: Levothyroxine Sodium 100 MCG/5 ML VIAL 12.5 MCG IVPUSH (05:18)
[2024-08-18] MEDS: Pantoprazole Sodium 40 MG/10 ML VIAL IVPUSH (05:18)
[2024-08-18] MEDS: Acetaminophen Oral Liquid 650 MG/20.3 ML SOLUTION PO (05:18)
[2024-08-18 05:34] LABS: VBG Base Excess 6.8 mmol/L; VBG HCO3 30 mmol/L (22-26); VBG pCO2 38 mmHg; VBG pO2 48 mmHg
[2024-08-18 05:39] LABS: Venous Blood Gas Refer to POC result
[2024-08-18 06:14] LABS: Hematocrit 22.8 % (37.0-47.0); Hemoglobin 7.3 g/dl (12.0-16.0); Mean Corpuscular Hemoglobin 27.3 pg (27.0-33.0); Mean Corpuscular Volume 85.4 fL (80.0-98.0); Platelet Count 157 X10*3/uL (160-400); Red Blood Count 2.67 X10*6/uL (4.20-5.50); Red Cell Distribution Width 16.9 % (11.0-16.0); White Blood Count 12.5 X10*3/uL (4.8-10.8)
[2024-08-18 06:15] LABS: INTERNATIONAL NORM RATIO 1.7 (0.9-1.1); Prothrombin Time 20.4 SEC (10.9-12.4)
[2024-08-18 06:22] LABS: Alanine Aminotransferase 950 U/L (0-31); Albumin Level 3.7 g/dL (3.5-5.0); Alkaline Phosphatase 104 U/L (39-117); Anion Gap 24 (12-20); Aspartate Amino Transferase 721 U/L (5-31); Bilirubin Total 2.2 mg/dL (0.0-1.0); Blood Urea Nitrogen 110 mg/dL (9-16); Calcium 9.1 mg/dL (8.4-10.2); Carbon Dioxide 27 mmol/L (22-29); Chloride 97 mmol/L (96-108); Estimated Glomerular Filt Rate 8; Glucose Random 189 mg/dL (60-115); Magnesium 2.8 mg/dL (1.6-2.6); Phosphorus 6.3 mg/dL (2.7-4.5); Potassium 4.7 mmol/L (3.3-5.1); Sodium 143 mmol/L (135-145)
[2024-08-18 06:26] LABS: B Type Natriuretic Peptide 836 pg/mL (<100)
[2024-08-18 06:35] LABS: Band Neutrophils Percent 4 % (3-5); Lymphocytes Absolute Manual 0.6 X10*3/uL (1.2-4.9); Lymphocytes Percent Manual 5 % (20-40); Metamyelocytes Absolute 0.1 X10*3/uL; Metamyelocytes Percent 1 %; Monocytes Absolute Manual 0.6 X10*3/uL (0.1-1.2); Monocytes Percent Manual 5 % (2-11); Neutrophils Absolute Manual 11.1 X10*3/uL (2.0-8.3); Neutrophils Percent Manual 85 % (45-73); Nucleated Red Blood Cells 2 /100WBC (0-0)
[2024-08-18 06:38] LABS: Hypochromasia 1+ (5-14) /OIF; Ovalocytes 1+ (5-14) /OIF; Polychromasia 1+ (0-2) /OIF; RBC Morphology NOTED; Schistocytes 1+ (0-2) /OIF
[2024-08-18 06:39] LABS: Large Platelet PRESENT; Platelet Estimate SLIGHTLY DECREASED (NORMAL); Platelet Morphology Comment NOTED
[2024-08-18 06:42] LABS: Toxic Granulation PRESENT
[2024-08-18] MEDS: Azithromycin 500 MG in 0.9 % Sodium Chloride 250 ML 125 MG IV (07:35)
[2024-08-18] MEDS: cefEPime HCl/D5W 2 GM/50 ML PIGGYBACK IV (07:35)
[2024-08-18] MEDS: 0.9 % Sodium Chloride Flush 3 ML SYRINGE IVFLUSH ×3 (08:09→23:37)
[2024-08-18] MEDS: Chlorhexidine Gluc Oral Rinse 15 ML MOUTHWASH BUCCAL ×3 (08:35→20:33)
[2024-08-18] MEDS: Heparin Sodium,Porcine/1/2NS 25,000 UNIT/250 ML IV.SOLN 12.7 UNIT IVCONT (09:31)
[2024-08-18 09:35] LABS: PTT Heparin Drip 25.7 SEC (53-77.9)
[2024-08-18 09:43] LABS: Vancomycin Random 24.5 mcg/mL (15-20)
--- NOTE | 2024-08-18 09:53 | MHC.CLN ---
F/U PT REMAINS INTUBATED AND SEDATED DISCUSSED AT ROUNDS WITH TF STARTED RECOMMEND NEPRO AT MAX GOAL RATE 20ML/HR TO PROVIDE 864KCALS (1374KCALS WITH SEDATION; 23KCALS/KG), 39G PROTEIN, 349ML FREE WATER FROM FORMULA MONITOR TOLERANCE AND LYTES
--- NOTE | 2024-08-18 09:58 | HE.PHANOTE ---
Re Vanc ClCr continuing to worsen, SCr up to 5.19 mg/dL. Will continue to hold dose for now as random was 24.5 mg/L. At current clearance, the patient's vanc level should be down to ~17 by , plan to draw random on 08/20 @0900. If changes occur, may need level and another dose sooner.
--- NOTE | 2024-08-18 09:59 | PM.CCPN ---
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 Treated with high-dose systemic glucocorticoids, empiric antibiotics, and diuresis with hospital course further complicated by acute renal failure. Respiratory status with slow improvement, now on FiO2 50%, however with worsening renal function. Overnight coagulopathy results, but now INR is subtherapeutic. Also with worsening congestive ablator and development of passive hepatic congestion. Critical Care Time (minutes): 90 Physical Exam Vital Signs: Vital Signs: Last Vital Signs Temp 101.8 F H 08/18/24 09:00 Pulse 74 08/18/24 09:00 Resp 18 08/18/24 09:00 BP 110/47 L 08/18/24 09:00 Pulse Ox 91 L 08/18/24 09:00 O2 Del Method Mechanical Ventil ation 08/18/24 09:00 O2 Flow Rate 50 08/15/24 09:00 FiO2 60 08/18/24 09:00 BMI result Body Mass Index 36.6 Const: General: no acute distress and other (Sedated on the vent) Eyes: Sclerae: sclerae normal EOM: EOMs intact bilaterally Neck: Neck: Yes no lymphadenopathy, Yes trachea midline and Yes supple Resp: Auscultation: crackles (Bilateral) Cardio: Rate: regular rate Rhythm: regular rhythm Heart sounds: no gallops, no murmurs and no rubs GI: Palpation (GI): Soft to palpation and Other GI palpation findings present ( Nontender) Auscultation: normal bowel sounds Extrem: General: No clubbing, No cyanosis and Yes edema (1+ bilateral) Objective Data Labs 08/18/24 05:30 08/18/24 05:30 Labs: Laboratory Results - last 24 hr 08/17/24 08/17/24 08/17/24 11:55 17:57 20:28 WBC RBC Hgb Hct MCV MCH MCHC RDW Plt Count MPV Immature Gran % (Auto) Neut % (Auto) Lymph % (Auto) [place] % (Auto) Eos % (Auto) Baso % (Auto) Abs Immat Gran (auto) Absolute Neuts (auto) Absolute Nucleated RBC Nucleated RBC % (auto) Neutrophils % (Manual) Band Neutrophils % Lymphocytes % (Manual) Monocytes % (Manual) Metamyelocytes % Abs Neuts (Manual) Lymphocytes # (Manual) Monocytes # (Manual) Metamyelocytes # Nucleated RBCs Toxic Granulation Platelet Estimate Large Platelets Plt Morphology Comment RBC Morphology Polychromasia Hypochromasia Ovalocytes Schistocytes Smear Path Review PT INR aPTT Heparin Protocol VBG pH VBG pCO2 VBG pO2 VBG HCO3 VBG O2 Saturation VBG Base Excess Sodium 142 Potassium 4.2 Chloride 96 Carbon Dioxide 29 Anion Gap 21 H BUN 95 H Creatinine 4.51 H* Estim Creat Clear Calc 12.2 Estimated GFR 10 POC Glucose 154 H 165 H Random Glucose 172 H Calcium 8.8 Phosphorus 6.1 H Magnesium 2.6 Total Bilirubin AST ALT Alkaline Phosphatase B-Natriuretic Peptide Total Protein Albumin 3.1 L Random Vancomycin 08/17/24 08/17/24 08/18/24 20:36 23:54 05:24 WBC RBC Hgb Hct MCV MCH MCHC RDW Plt Count MPV Immature Gran % (Auto) Neut % (Auto) Lymph % (Auto) [place] % (Auto) Eos % (Auto) Baso % (Auto) Abs Immat Gran (auto) Absolute Neuts (auto) Absolute Nucleated RBC Nucleated RBC % (auto) Neutrophils % (Manual) Band Neutrophils % Lymphocytes % (Manual) Monocytes % (Manual) Metamyelocytes % Abs Neuts (Manual) Lymphocytes # (Manual) Monocytes # (Manual) Metamyelocytes # Nucleated RBCs Toxic Granulation Platelet Estimate Large Platelets Plt Morphology Comment RBC Morphology Polychromasia Hypochromasia Ovalocytes Schistocytes Smear Path Review PT INR aPTT Heparin Protocol VBG pH 7.55 H 7.50 H VBG pCO2 37 38 VBG pO2 67 48 VBG HCO3 32 H 30 H VBG O2 Saturation 91.0 72.0 VBG Base Excess 10.0 6.8 Sodium Potassium Chloride Carbon Dioxide Anion Gap BUN Creatinine Estim Creat Clear Calc Estimated GFR POC Glucose 177 H Random Glucose Calcium Phosphorus Magnesium Total Bilirubin AST ALT Alkaline Phosphatase B-Natriuretic Peptide Total Protein Albumin Random Vancomycin 08/18/24 08/18/24 05:30 09:09 WBC 12.5 H RBC 2.67 L Hgb 7.3 L Hct 22.8 L MCV 85.4 MCH 27.3 MCHC 32.0 RDW 16.9 H Plt Count 157 L MPV 13.0 H Immature Gran % (Auto) Cancelled Neut % (Auto) Cancelled Lymph % (Auto) Cancelled [place] % (Auto) Cancelled Eos % (Auto) Cancelled Baso % (Auto) Cancelled Abs Immat Gran (auto) Cancelled Absolute Neuts (auto) Cancelled Absolute Nucleated RBC 0.370 H Nucleated RBC % (auto) 3.0 H Neutrophils % (Manual) 85 H Band Neutrophils % 4 Lymphocytes % (Manual) 5 L Monocytes % (Manual) 5 Metamyelocytes % 1 Abs Neuts (Manual) 11.1 H Lymphocytes # (Manual) 0.6 L Monocytes # (Manual) 0.6 Metamyelocytes # 0.1 Nucleated RBCs 2 H Toxic Granulation PRESENT Platelet Estimate SLIGHTLY DECREASED Large Platelets PRESENT Plt Morphology Comment NOTED RBC Morphology NOTED Polychromasia 1+ (0-2) Hypochromasia 1+ (5-14) Ovalocytes 1+ (5-14) Schistocytes 1+ (0-2) Smear Path Review SEE NOTE PT 20.4 H D INR 1.7 H D aPTT Heparin Protocol 25.7 L VBG pH VBG pCO2 VBG pO2 VBG HCO3 VBG O2 Saturation VBG Base Excess Sodium 143 Potassium 4.7 Chloride 97 Carbon Dioxide 27 Anion Gap 24 H BUN 110 H Creatinine 5.19 H* Estim Creat Clear Calc 11.0 Estimated GFR 8 POC Glucose Random Glucose 189 H Calcium 9.1 Phosphorus 6.3 H Magnesium 2.8 H Total Bilirubin 2.2 H AST 721 H ALT 950 H Alkaline Phosphatase 104 B-Natriuretic Peptide 836 H Total Protein 7.0 Albumin 3.7 Random Vancomycin 24.5 H Microbiology Microbiology Results: Microbiology 08/14/24 07:23 Blood - Venous Blood Culture - Preliminary No growth after 48 hours. 08/14/24 07:23 Blood - Venous Blood Culture - Preliminary No growth after 48 hours. 08/14/24 Unknown Urine Catheterized - Gloria Catheter Urine Culture - Final No growth. 08/13/24 08:03 Blood - Venous Blood Culture - Preliminary No growth after 48 hours. 08/13/24 08:03 Blood - Venous Blood Culture - Preliminary No growth after 48 hours. Progress Note: A&P Assessment and plan (1) Shock: Status: Acute (2) Abnormal CT scan, chest: Status: Acute (3) Acute hypoxic respiratory failure: Status: Acute (4) CHF exacerbation: Status: Acute (5) EUGENIO (acute kidney injury): Status: Resolved (6) Hepatic congestion: Status: Acute Plan Assessment: 68-year-old lady admitted on 08/13/2024 with acute hypoxic respiratory failure with likely inflammatory etiology, now requiring ventilatory support. Plan: Neuro: Steroid induced encephalopathy secondary to high-dose systemic glucocorticoids, expect to improve with steroid taper. Also, likely uremic encephalopathy secondary to acute renal failure. Cardiac: Shock, undifferentiated, improving. Continue to titrate off pressor support as tolerated. Pulmonary: Acute hypoxic respiratory failure, likely inflammatory in origin. Improving with systemic glucocorticoids. CT chest with dense infiltrates, not in peribronchovascular distribution, more consistent with edema. Continue to titrate off ventilatory support as tolerated. Renal: EUGENIO, secondary to shock. Oliguric. Will request renal Service evaluation. Continue to monitor renal indices and urine output. Endo: No acute issues. GI: Passive hepatic congestion likely secondary to congestive heart failure. ID: Possible pneumonia, continue empiric broad-spectrum antibiotics. Cultures negative to date. Heme/Onc: Subtherapeutic INR on a background of acute kidney failure. Underlying MVR. Bridge with heparin drip. Restart Coumadin with INR goal of 2.5-3.5. Psych: No acute issues. Miscellaneous: No acute issues. Prophylaxis: Heparin drip, ppi Diet: Tube feeds Critical care time spent: 90 minutes Quality Stroke Does the patient have a stroke diagnosis?: No VTE Prior VTE?: No VTE Risk Level:: Medical - moderate - high VTE Device Contraindication: N/A - Device Ordered VTE Drug Contraindication: N/A - Med Ordered
[2024-08-18 11:18] LABS: Glucose, Whole Blood 181 mg/dL (60-115)
--- NOTE | 2024-08-18 11:43 | PM.CNNEP ---
History of Present Illness Reason for Consult Consult date: 08/18/24 Chief Complaint Chief complaint: Pneumonia w/ sepsis, hypoxia History of Present Illness Narrative: Pt is a 68 y/o female with a medical history of afib, HFpEF, aortic stenosis, s/p St Alex valve in 2005 on coumadin, s/p TAVR in 2021, hx amiodarine toxicity, ILD, COPD on 3L at home, pacemaker in place, SOHAIL (non on CPAP), DMII, dementia (preliminary dx per family). ED on 08/13 with dyspnea, fatigue, cough, hospitalized for treatment of hypoxic resp failure in setting of PNA/sepsis. transferred to ICU on 08/14 due to worsening respiratory status requiring intubation, vasopressor support. Nephrology consulted for EUGENIO creatinine trend: 08/14 0.75 08/15 2.17 08/16 3.05 08/17 4.51 08/18 5.19 urine on 08/14 with moderate leukocyte esterace, large amount of urine WBCs and WBC clumps present (no growth of urine culture on 08/14). of note patient has been on vancomycin during hospitalization, levels persistently elevated (29.6 on 08/15). pt has also been on IV lasix drip (d/c'd) and IVP lasix Review of Systems Review of Systems Yes unobtainable due to endotracheal tube and Unobtainable due to mental status PMFSH Past Medical History Medical History (Updated 08/18/24 @ 10:01 by Reji Flores MD) Abnormal CT scan, chest PAF (paroxysmal atrial fibrillation) Hyperprothrombinemia Acute on chronic diastolic (congestive) heart failure Atrial fibrillation with rapid ventricular response Implantable loop recorder present Persistent atrial fibrillation Increasing shortness of breath Encounter for interrogation of cardiac pacemaker Subtherapeutic international normalized ratio (INR) Heart failure Cardiac pacemaker Nocturnal hypoxemia (~08/15/23) Sinus pause History of cardioversion Interstitial lung disease COPD (chronic obstructive pulmonary disease) Pulmonary nodule Atrial flutter with rapid ventricular response COPD (chronic obstructive pulmonary disease) Exercise hypoxemia Interstitial lung disease Bronchitis due to Staphylococcus aureus History of transcatheter aortic valve replacement (TAVR) Acute diastolic CHF (congestive heart failure) Paroxysmal atrial fibrillation Abnormal EKG Hypoxia Interstitial lung disease Anemia Atrial flutter Obesity (HFpEF) heart failure with preserved ejection fraction Aortic stenosis Current use of anticoagulant therapy Family History Family History Father No problems noted. Mother CVD (cardiovascular disease) Surgical History Surgical History Status post transcatheter aortic valve replacement Hx of mitral valve replacement (~2004) Status post placement of cardiac pacemaker H/O heart surgery History of sleeve gastrectomy (~2017) Hx of transesophageal echocardiography (SHELIA) for monitoring (~2015) Hx of section Social History Social History Household Members: Children Household Members Other:: daughter Housing: House Do you presently have visiting nurse or other home services: Yes Alcohol intake: never Comment: patient moderate fall risk refusing alarrms Patient Tobacco Use Status: Former Tobacco user Tobacco use type: Cigarette Cigarettes Per Day: 10 Years Smoked: 35 Smoked in Last 30 Days: No e-Cigarette/Vaping Use: Never Used Patient Interested in Nicotine Replacement: No Patient Given Instructions on How to Stop Smoking: No Second Hand Smoke Exposure: No Use of substances other than those prescribed or required for medical reasons: No Currently Displaying Signs/Symptoms of Drug Intoxication Withdrawal: No Any prior treatment program specific to substance use: No Have you been hit, kicked, punched, or otherwise hurt by someone within the past year? If so, by whom?: No Do you feel safe in your current relationship?: Yes Is there a partner from a previous relationship who is making you feel unsafe now?: No Are you made to feel afraid or neglected: No Spiritual Healthcare Practices: latter-day Advance Directives: Yes Advance Directives on File: Yes Advance Directives Date on File: 12/18/22 Do you have a plan to hurt others: No Plan Recently lost weight without trying: Yes How much weight loss: 2-13 pounds Eating poorly because of decreased appetite: No Nutrition screen score: 3 Patient : No : No Poor oral hygiene: No service: No Current occupational status: disabled Meds Allergies Allergy/AdvReac Type Severity Reaction Status Date / Time amiodarone Allergy Difficulty Verified 08/13/24 07:25 Breathing Active Medications: Current Medications Albuterol Sulfate (Albuterol Sulfate 90 Mcg 8 Gm Inhaler) 2 puff INHALE RQ4H PRN PRN Reason: breathing Chlorhexidine Gluconate (Chlorhexidine Gluc Oral Rinse 15 Ml Mouthwash) 15 ml BUCCAL TID [facility] Last Admin: 08/18/24 08:35 Dose: 15 ml Fluticasone/Umeclidinium/Vilanterol (Fluticasone/Umeclidinium/Vilanterol 200/62.5/25 Blst.W.Dev) 1 puff INHALE RDAILY [facility] Last Admin: 08/18/24 07:36 Dose: Not Given Glucose (Glucose Gel 15 Gm Gel..Gram.) 15 gm PO Q15M PRN; Protocol PRN Reason: per Hypoglycemia Standing Ord. Heparin Sodium (Porcine) (Heparin Sodium,Porcine 5,000 Unit/Ml Vial) 3,600 unit 40 unit/kg (3600 unit) IVPUSH PROTOCOL BOLUS PRN; Protocol PRN Reason: 40 unit/kg - Heparin Protocol Heparin Sodium (Porcine) (Heparin Sodium,Porcine 5,000 Unit/Ml Vial) 7,300 unit 80 unit/kg (7300 unit) IVPUSH PROTOCOL BOLUS PRN; Protocol PRN Reason: 80 unit/kg - Heparin Protocol Hydromorphone HCl (Hydromorphone Hcl 2 Mg/Ml Vial) 2 mg IVPUSH Q2H PRN; Protocol PRN Reason: Pain, Moderate(Pain Scale 4-6) Norepinephrine Bitartrate (Levophed) 8 mg in 250 mls @ 0 mls/hr IVCONT .Q0M [facility]; Protocol Last Titration: 08/18/24 11:33 Dose: 0.03 mcg/kg/min, 4.29 mls/hr Propofol (Diprivan) 1,000 mg in 100 mls @ 0 mls/hr IVCONT .Q0M [facility]; Protocol Last Titration: 08/18/24 11:04 Dose: 40 mcg/kg/min, 19.3 mls/hr Vasopressin (Vasostrict) 20 unit in 100 mls @ 9 mls/hr IVCONT .Q11H7M [facility] Last Admin: 08/18/24 03:52 Dose: 0.03 unit/min, 9 mls/hr Vancomycin HCl 750 mg/ Sodium (Chloride) 265 mls @ 265 mls/hr IV Q24H [facility] Fentanyl (Sublimaze/Ns) 1,000 mcg in 100 mls @ 0 mls/hr IVCONT .Q0M [facility]; Protocol Last Titration: 08/18/24 11:03 Dose: 25 mcg/hr, 2.5 mls/hr Dextrose (D10) 250 mls @ 750 mls/hr IV Q15M PRN; Protocol PRN Reason: per Hypoglycemia Standing Ord. Cefepime HCl (Maxipime) 2 gm in 50 mls @ 100 mls/hr IV Q24H [facility] Last Infusion: 08/18/24 08:10 Dose: Infused Albumin Human (Kedbumin 25 %) 100 mls @ 100 mls/hr IV Q6H [facility] Stop: 08/18/24 16:14 Last Infusion: 08/18/24 09:36 Dose: Infused Heparin Sodium/Sodium Chloride (Heparin Sodium,Porcine/1/2ns) 25,000 unit in 250 mls @ 0 mls/hr IVCONT .Q0M [facility]; Protocol Last Admin: 08/18/24 09:31 Dose: 14 units/kg/hr, 12.7 mls/hr Insulin Human Lispro (Insulin Lispro 100 Unit/Ml 3 Ml Vial) 0 unit SUBCUT Q6H [facility]; Protocol Last Admin: 08/18/24 11:31 Dose: 2 unit Levothyroxine Sodium (Levothyroxine Sodium 100 Mcg/5 Ml Vial) 12.5 mcg IVPUSH DAILY@0600 [facility] Last Admin: 08/18/24 05:18 Dose: 12.5 mcg Methylprednisolone Sodium Succinate (Methylprednisolone Sod Succ 125 Mg/2 Ml Vial) 60 mg IVPUSH BID [facility] Last Admin: 08/18/24 08:36 Dose: Not Given Midazolam HCl (Midazolam Hcl/Pf 2 Mg/2 Ml Vial) 2 mg IVPUSH Q2H PRN PRN Reason: Agitation Morphine Sulfate (Morphine Sulfate 2 Mg/Ml Cartridge) 2 mg IVPUSH Q2H PRN; Protocol PRN Reason: Dyspnea Last Admin: 08/15/24 07:56 Dose: 2 mg Naloxone HCl (Naloxone Hcl 0.4 Mg/Ml Vial) 0.2 mg IVPUSH Q2M PRN PRN Reason: Excessive sedation or RR < 8 Pantoprazole Sodium (Pantoprazole Sodium 40 Mg/10 Ml Vial) 40 mg IVPUSH DAILY@0630 [facility] Last Admin: 08/18/24 05:18 Dose: 40 mg Pharmacy Consult (Consult Rx Vancomycin Dosing) 1 each MISCELLANE DAILY PRN PRN Reason: Consult order Sodium Chloride (0.9 % Sodium Chloride Flush 3 Ml Syringe) 3 ml IVFLUSH QSHIFT [facility] Last Admin: 08/18/24 08:09 Dose: 3 ml Warfarin Sodium (Warfarin Sodium 3 Mg Tablet) 3 mg PO DAILY@1800 [facility] Home Medications ?Medication ?Instructions ?Recorded ?Confirmed ?Last Taken ?Type levothyroxine 25 mcg tablet 25 mcg PO DAILY@0600 09/01/20 08/13/24 08/12/24 History atorvastatin 20 mg tablet 20 mg PO DAILY 04/26/21 08/13/24 08/12/24 History fluticasone fur. 200 mcg-umeclid 1 ea inhalation DAILY 03/26/23 08/13/24 08/12/24 History 62.5 mcg-vilant 25 mcg inhalat.powder (Trelegy Ellipta) albuterol sulfate 90 mcg/actuation 2 puff inhalation Q4-6H PRN 04/08/23 08/13/24 07/20/24 07:00 History aerosol inhaler (Ventolin HFA) breathing ferrous sulfate 325 mg (65 mg 325 mg PO DAILY@1600 04/22/23 08/13/24 08/12/24 History iron) tablet ketoconazole 2 % topical cream 1 appl topical BID PRN Itching 05/15/24 08/13/24 07/20/24 07:00 History escitalopram oxalate 5 mg tablet 5 mg PO DAILY@1600 07/20/24 08/13/24 08/12/24 History furosemide 40 mg tablet 40 mg PO DAILY@1600 07/20/24 08/13/24 08/12/24 History fluticasone fur. 200 mcg-umeclid 1 ea inhalation DAILY 08/13/24 08/13/24 08/12/24 History 62.5 mcg-vilant 25 mcg inhalat.powder (Trelegy Ellipta) warfarin 2.5 mg tablet 2.5 mg PO WE 08/13/24 08/13/24 08/12/24 History warfarin 5 mg tablet 5 mg PO SUMOTHFRSA 08/13/24 08/13/24 08/10/24 History Physical Exam Vital Signs: Last Vital Signs Temp 102.0 F H 08/18/24 11:00 Pulse 90 08/18/24 11:33 Resp 23 H 08/18/24 11:00 BP 96/41 L 08/18/24 11:33 Pulse Ox 91 L 08/18/24 11:00 O2 Del Method Mechanical Ventilation 08/18/24 11:00 O2 Flow Rate 50 08/15/24 09:00 FiO2 50 08/18/24 11:05 BMI result Body Mass Index 36.6 Const General: other (intubated/sedated) Resp Effort & Inspection: normal respiratory effort (intubated) Auscultation: rhonchi Cardio Rate: regular rate Rhythm: abnormal rhythm Heart sounds: S1 normal heart sound present and S2 normal heart sound present GI Palpation (GI): Soft to palpation and nontender Skin Rashes: rash noted Neuro Other: no hyperreflexia to bilateral brachioradialis reflexes no myoclonus when holding patient's arm up General: other (sedated ) Extrem General: Yes no pedal edema and No edema (no lower extremity edema ) Results Lab Results 08/18/24 05:30 08/18/24 05:30 Lab results: Chemistry 08/15/24 08/15/24 08/16/24 13:56 17:59 05:05 Sodium 151 H 142 141 Potassium 3.6 3.1 L 3.9 D Carbon Dioxide 34 H 25 33 H BUN 39 H 42 H 49 H Creatinine 2.17 H 2.02 H 2.48 H Calcium 8.0 L D 10.0 D 8.5 D Phosphorus 9.3 H 4.7 H 4.5 08/16/24 08/17/24 08/17/24 17:54 05:01 20:28 Sodium 141 142 142 Potassium 3.7 3.8 4.2 Carbon Dioxide 32 H 32 H 29 BUN 62 H 74 H 95 H Creatinine 3.05 H 3.66 H 4.51 H* Calcium 8.9 9.1 8.8 Phosphorus 4.5 4.8 H 6.1 H 08/18/24 05:30 Sodium 143 Potassium 4.7 Carbon Dioxide 27 BUN 110 H Creatinine 5.19 H* Calcium 9.1 Phosphorus 6.3 H Hematology 08/15/24 08/16/24 08/17/24 13:56 05:05 05:01 WBC 30.6 H* 14.6 H 10.5 Hgb 10.2 L 9.4 L 8.2 L Plt Count 303 D 201 D 165 08/18/24 05:30 WBC 12.5 H Hgb 7.3 L Plt Count 157 L Assessment and Plan (1) EUGENIO (acute kidney injury): Status: Resolved (2) Acute hypoxic respiratory failure: Status: Acute (3) Shock: Status: Acute Plan EUGENIO likely multifactorial tubular injury hypoperfusion from spesis and toxicity injury from vancomycin likely contributory recommend discontinuing vancomycin which is likely contributing to renal decline patient appears euvolemic on clinical exam today no metabolic acidosis no concerning electrolyte abnormalities blood pressure supported with vasopressors patient is making urine (1542 mL in last 24 hours) no absolute indications for dialysis at this time Will continue to follow Discussed with Dr Watkins. Procedures Date of Service Date of Service: 08/18/24
[2024-08-18] MEDS: fentaNYL citrate/NS 1,000 MCG/100 ML PLAST..BAG 2.5 MCG IVCONT (15:26)
[2024-08-18 16:42] LABS: PTT Heparin Drip 58.5 SEC (53-77.9)
[2024-08-18 17:32] LABS: Glucose, Whole Blood 176 mg/dL (60-115)
[2024-08-18] MEDS: Warfarin Sodium 3 MG TABLET PO (17:37)
[2024-08-18] MEDS: Midazolam HCl/PF 2 MG/2 ML VIAL IVPUSH ×3 (17:58→23:37)
[2024-08-18 19:28] LABS: Hematocrit 22.3 % (37.0-47.0); Hemoglobin 7.5 g/dl (12.0-16.0); Mean Corpuscular HGB Conc 33.6 g/dl (31.0-35.0); Mean Corpuscular Hemoglobin 28.4 pg (27.0-33.0); Mean Corpuscular Volume 84.5 fL (80.0-98.0); Mean Platelet Volume 12.9 fL (9.4-12.3); Platelet Count 195 X10*3/uL (160-400); Red Blood Count 2.64 X10*6/uL (4.20-5.50); Red Cell Distribution Width 17.2 % (11.0-16.0); White Blood Count 20.3 X10*3/uL (4.8-10.8)
[2024-08-18 19:36] LABS: NRBC Pct Auto 4.5 /100WBC (0.0-0.2)
[2024-08-18 19:46] LABS: Anion Gap 24 (12-20); Calcium 8.7 mg/dL (8.4-10.2); Carbon Dioxide 25 mmol/L (22-29); Chloride 95 mmol/L (96-108); Creatinine Clr Calc Pharmacy 9.4; Estimated Glomerular Filt Rate 7; Glucose Random 205 mg/dL (60-115); Magnesium 2.9 mg/dL (1.6-2.6); Phosphorus 6.9 mg/dL (2.7-4.5); Potassium 4.9 mmol/L (3.3-5.1); Sodium 139 mmol/L (135-145)
[2024-08-18 20:01] LABS: Blood Urea Nitrogen 118 mg/dL (9-16)
[2024-08-18 20:04] LABS: Lymphocytes Absolute Manual 1.8 X10*3/uL (1.2-4.9); Lymphocytes Percent Manual 9 % (20-40); Metamyelocytes Absolute 0.2 X10*3/uL; Metamyelocytes Percent 1 %; Monocytes Absolute Manual 1.8 X10*3/uL (0.1-1.2); Monocytes Percent Manual 9 % (2-11); Myelocytes Absolute 0.4 X10*/uL; Myelocytes Percent 2 %; Neutrophils Percent Manual 79 % (45-73); Nucleated Red Blood Cells 7 /100WBC (0-0)
[2024-08-18 20:15] LABS: RBC Morphology NOTED
[2024-08-18 20:16] LABS: Ovalocytes 1+ (5-14) /OIF; Schistocytes 1+ (0-2) /OIF
[2024-08-18 20:19] LABS: Hypochromasia 1+ (5-14) /OIF; Polychromasia 1+ (0-2) /OIF; Toxic Vacuolation PRESENT
[2024-08-18 20:20] LABS: Platelet Estimate NORMAL (NORMAL); Platelet Morphology Comment NORMAL
[2024-08-18 20:22] LABS: Band Neutrophils Percent 0 % (3-5)
[2024-08-18 21:48] LABS: PTT Heparin Drip 99.5 SEC (53-77.9)
[2024-08-18] MEDS: propofoL 1,000 MG/100 ML VIAL 24.12 MG IVCONT (23:15)
[2024-08-19] VITALS (60 sets, daily range): BP systolic 75–140; BP diastolic 31–68; PULSE 72–112; RESP 15–24; TEMP 34.8–39; O2SAT 88–96; BMI 37.5
[2024-08-19 00:11] LABS: Glucose, Whole Blood 201 mg/dL (60-115)
[2024-08-19] MEDS: Vasopressin 20 UNIT/100 ML INFUS..BTL 9 UNIT IVCONT (00:26)
[2024-08-19] MEDS: Norepinephrine Bitartrate/D5W 8 MG/250 ML PLAST..BAG 12.86 MG IVCONT (00:27)
[2024-08-19] MEDS: Cisatracurium Besylate 20 MG/10 ML VIAL IVPUSH ×3 (00:41→04:48)
[2024-08-19 00:58] LABS: VBG Base Excess -3.9 mmol/L; VBG HCO3 23 mmol/L (22-26); VBG pCO2 54 mmHg; VBG pH 7.24 (7.32-7.43); VBG pO2 46 mmHg
[2024-08-19 01:00] LABS: Hematocrit 25.3 % (37.0-47.0); Hemoglobin 8.3 g/dl (12.0-16.0); Mean Corpuscular HGB Conc 32.8 g/dl (31.0-35.0); Mean Corpuscular Hemoglobin 28.2 pg (27.0-33.0); Mean Corpuscular Volume 86.1 fL (80.0-98.0); Mean Platelet Volume 12.8 fL (9.4-12.3); Platelet Count 243 X10*3/uL (160-400); Red Blood Count 2.94 X10*6/uL (4.20-5.50); Red Cell Distribution Width 17.4 % (11.0-16.0); White Blood Count 26.9 X10*3/uL (4.8-10.8)
[2024-08-19 01:01] LABS: NRBC Pct Auto 7.1 /100WBC (0.0-0.2)
[2024-08-19 01:28] LABS: Anion Gap 27 (12-20); Band Neutrophils Percent 7 % (3-5); Calcium 9.1 mg/dL (8.4-10.2); Carbon Dioxide 23 mmol/L (22-29); Chloride 93 mmol/L (96-108); Creatinine Clr Calc Pharmacy 8.8; Estimated Glomerular Filt Rate 6; Glucose Random 269 mg/dL (60-115); Lymphocytes Absolute Manual 2.4 X10*3/uL (1.2-4.9); Lymphocytes Percent Manual 9 % (20-40); Magnesium 3.1 mg/dL (1.6-2.6); Metamyelocytes Absolute 1.3 X10*3/uL; Metamyelocytes Percent 5 %; Monocytes Absolute Manual 0.8 X10*3/uL (0.1-1.2); Monocytes Percent Manual 3 % (2-11); Myelocytes Absolute 0.5 X10*/uL; Myelocytes Percent 2 %; Neutrophils Absolute Manual 21.8 X10*3/uL (2.0-8.3); Neutrophils Percent Manual 74 % (45-73); Nucleated Red Blood Cells 4 /100WBC (0-0); Phosphorus 8.4 mg/dL (2.7-4.5); Sodium 137 mmol/L (135-145)
[2024-08-19 01:29] LABS: RBC Morphology NOTED
[2024-08-19 01:30] LABS: Burr Cells 1+ (0-2) /OIF; Large Platelet PRESENT; Ovalocytes 1+ (5-14) /OIF; Platelet Estimate NORMAL (NORMAL); Platelet Morphology Comment NOTED; Smudge Cells PRESENT
[2024-08-19 01:31] LABS: Polychromasia 1+ (0-2) /OIF; Schistocytes 1+ (0-2) /OIF
[2024-08-19] MEDS: Sodium Bicarbonate 8.4% 50 MEQ/50 ML SYRINGE IVPUSH (01:36)
[2024-08-19 01:38] LABS: Blood Urea Nitrogen 122 mg/dL (9-16)
[2024-08-19 01:39] LABS: Venous Blood Gas Refer to POC result
[2024-08-19] MEDS: Insulin Lispro 100 UNIT/ML 3 ML VIAL SUBCUT ×3 (01:40→17:28)
[2024-08-19] MEDS: propofoL 1,000 MG/100 ML VIAL 24.12 MG IVCONT ×3 (02:31→11:14)
[2024-08-19] MEDS: Midazolam HCl/PF 2 MG/2 ML VIAL IVPUSH ×2 (02:33→06:02)
--- NOTE | 2024-08-19 03:25 | W.PM.CCHP ---
Procedures Date of Service Date of Service: 08/19/24 <Nguyễn Howard NP - Last Filed: 08/19/24 03:29> 08/19/24 <Reji Flores MD - Last Filed: 08/19/24 09:59> Central Line Placement Right IJ: Central Line Comments: For emergent dialysis, right internal jugular triple lumen central exchange to dialysis line through guidewire due to high risk for bleeding from heparin drip. Dialysis cath placed in usual sterile conditions without immediate complications. Central line position verified with Chest X-ray. <Nguyễn Howard NP - Last Filed: 08/19/24 03:29> Consent for Procedure: Emergent-no informed consent obtained (Consent obtained from daughter Raul Bond) <Nguyễn Howard NP - Last Filed: 08/19/24 03:29> Time out performed: Yes <Nguyễn Howard NP - Last Filed: 08/19/24 03:29> Sterile Technique Used: Yes <Nguyễn Howard NP - Last Filed: 08/19/24 03:29> Patient placed on monitor/pulse ox: Yes <Nguyễn Howard NP - Last Filed: 08/19/24 03:29> prep: mask, gown and gloves <Nguyễn Howard NP - Last Filed: 08/19/24 03:29> Central line prep: Chlorhexidine scrub <Nguyễn Howard NP - Last Filed: 08/19/24 03:29> Local anesthesia used: other anesthetic (ON prop for vent sed ) <Nguyễn Howard NP - Last Filed: 08/19/24 03:29> Post procedure: sutured in place, good blood return, all ports aspirated, flushed, capped and sterile dressing applied <Nguyễn Howard NP - Last Filed: 08/19/24 03:29> Post procedure x-ray: tip of catheter in good position and no pneumothorax seen <Nguyễn Howard NP - Last Filed: 08/19/24 03:29> Patient tolerated procedure: well and no complications <Nguyễn Howard NP - Last Filed: 08/19/24 03:29> Complications: none <Nguyễn Howard NP - Last Filed: 08/19/24 03:29>
--- NOTE | 2024-08-19 04:07 | PC.NURSE ---
At approx 0000- pt continuously asynchronous with vent, stacking breaths despite propofol/fentanyl gtts and PRN versed per MAR. PERSONNEL COORDINATOR Lee notified. New order for nimbex 20 mg IVP x1. Baseline TOF completed, 4/4 twitches with 7 mA applied. S/p administration, pt with low Vt/Ve, SpO2 83% via 100% FiO2- RT notified and settings changed per EMR. At approx 0045- pt with widening QRS complex on tele, increasing vasopressor and FiO2 requirements, anuric. VBG, CBC and BMP ordered- PERSONNEL COORDINATOR aware of critical result of K+ 6.0 at 0130. Renal consulted by PERSONNEL COORDINATOR and consent obtained for dialysis and line placement. Prior to line placement, given PRN versed IVP per MAR per PERSONNEL COORDINATOR. TLC to R IJ exchanged over guidewire for Mahurkar at approx 0230, placement verified by pCXR. Additional nimbex 20 mg IVP given per MAR per PERSONNEL COORDINATOR prior to iHD. Dialysis nurse to unit at approx 0300 and iHD started at 0338.
[2024-08-19] MEDS: Levothyroxine Sodium 100 MCG/5 ML VIAL 12.5 MCG IVPUSH (06:16)
[2024-08-19] MEDS: Pantoprazole Sodium 40 MG/10 ML VIAL IVPUSH (06:17)
[2024-08-19] MEDS: Heparin Sodium,Porcine/1/2NS 25,000 UNIT/250 ML IV.SOLN 9.98 UNIT IVCONT (06:25)
[2024-08-19 06:31] LABS: Glucose, Whole Blood 147 mg/dL (60-115)
[2024-08-19 07:13] LABS: VBG Base Excess 7.1 mmol/L; VBG HCO3 33 mmol/L (22-26); VBG pCO2 55 mmHg; VBG pH 7.39 (7.32-7.43); VBG pO2 81 mmHg
[2024-08-19 07:13] LABS: Venous Blood Gas Refer to POC result
[2024-08-19] MEDS: Norepinephrine Bitartrate/D5W 8 MG/250 ML PLAST..BAG 52.86 MG IVCONT (07:13)
[2024-08-19 07:20] LABS: INTERNATIONAL NORM RATIO 1.8 (0.9-1.1); Prothrombin Time 21.3 SEC (10.9-12.4)
[2024-08-19 07:22] LABS: PTT Heparin Drip 72.8 SEC (53-77.9)
[2024-08-19 07:29] LABS: Hemoglobin 10.1 g/dl (12.0-16.0); Mean Corpuscular HGB Conc 33.7 g/dl (31.0-35.0); Mean Corpuscular Hemoglobin 28.9 pg (27.0-33.0); Mean Corpuscular Volume 85.7 fL (80.0-98.0); PLT CLUMP 1; Red Cell Distribution Width 17.5 % (11.0-16.0)
[2024-08-19 07:32] LABS: Alanine Aminotransferase 967 U/L (0-31); Albumin Level 4.7 g/dL (3.5-5.0); Alkaline Phosphatase 181 U/L (39-117); Anion Gap 25 (12-20); Aspartate Amino Transferase 646 U/L (5-31); Bilirubin Total 3.5 mg/dL (0.0-1.0); Blood Urea Nitrogen 55 mg/dL (9-16); Calcium 9.8 mg/dL (8.4-10.2); Carbon Dioxide 27 mmol/L (22-29); Chloride 94 mmol/L (96-108); Creatinine Clr Calc Pharmacy 17.5; Estimated Glomerular Filt Rate 14; Glucose Random 130 mg/dL (60-115); Magnesium 2.4 mg/dL (1.6-2.6); NRBC Pct Auto 18.8 /100WBC (0.0-0.2); Phosphorus 5.6 mg/dL (2.7-4.5); Sodium 142 mmol/L (135-145); WBC ABN SCTR FOR CBC 1
[2024-08-19 07:34] LABS: White Blood Count 52.3 X10*3/uL (4.8-10.8)
[2024-08-19 08:09] LABS: Band Neutrophils Percent 22 % (3-5); Lymphocytes Absolute Manual 1.6 X10*3/uL (1.2-4.9); Lymphocytes Percent Manual 3 % (20-40); Metamyelocytes Absolute 7.3 X10*3/uL; Metamyelocytes Percent 14 %; Monocytes Absolute Manual 1.6 X10*3/uL (0.1-1.2); Monocytes Percent Manual 3 % (2-11); Myelocytes Absolute 2.1 X10*/uL; Myelocytes Percent 4 %; Neutrophils Absolute Manual 38.7 X10*3/uL (2.0-8.3); Neutrophils Percent Manual 52 % (45-73); Promyelocytes Percent 2 %
[2024-08-19 08:10] LABS: Nucleated Red Blood Cells 32 /100WBC (0-0)
[2024-08-19 08:10] LABS: B Type Natriuretic Peptide 4007 pg/mL (<100)
[2024-08-19 08:12] LABS: RBC Morphology NOTED
[2024-08-19 08:13] LABS: Burr Cells 2+ (3-5) /OIF; Hypochromasia 1+ (5-14) /OIF; Large Platelet PRESENT; Ovalocytes 1+ (5-14) /OIF; Platelet Estimate NORMAL (NORMAL); Platelet Morphology Comment NOTED; Polychromasia 1+ (0-2) /OIF; Schistocytes 2+ (3-5) /OIF; Smudge Cells PRESENT; Tear Drop Cells 2+ (3-5) /OIF
[2024-08-19 08:14] LABS: Platelet Count 328 X10*3/uL (160-400); Toxic Vacuolation PRESENT
[2024-08-19] MEDS: Chlorhexidine Gluc Oral Rinse 15 ML MOUTHWASH BUCCAL ×3 (08:19→20:37)
[2024-08-19] MEDS: Meropenem 500 MG VIAL IVPUSH (08:36)
[2024-08-19] MEDS: methylPREDNISolone Sod Succ 125 MG/2 ML VIAL 60 MG IVPUSH (08:36)
[2024-08-19] MEDS: Linezolid/D5W 600 MG/300 ML PIGGYBACK 300 MG IV ×2 (08:36→20:37)
[2024-08-19] MEDS: 0.9 % Sodium Chloride Flush 3 ML SYRINGE IVFLUSH ×3 (08:36→20:38)
[2024-08-19] MEDS: fentaNYL citrate/NS 1,000 MCG/100 ML PLAST..BAG 10 MCG IVCONT ×2 (08:47→16:11)
--- NOTE | 2024-08-19 09:53 | P.PNCA_ITS ---
Subjective Subjective Date of Service: 08/19/24 Interval history: Seen and examined at bedside. On pressors. Physical Exam Vital Signs: Last Vital Signs Temp 100.2 F 08/19/24 09:00 Pulse 82 08/19/24 09:00 Resp 18 08/19/24 09:00 BP 129/66 08/19/24 09:00 Pulse Ox 92 08/19/24 09:00 O2 Del Method Mechanical Ventilation 08/19/24 09:00 O2 Flow Rate 50 08/15/24 09:00 FiO2 100 08/19/24 09:00 BMI result Body Mass Index 37.5 GENERAL APPEARANCE: Sedated and intubated. NECK: + JVD SKIN: no suspicious lesions, warm and dry. HEART: no murmurs, regular rate and rhythm. Mechanical first heart sound. LUNGS: Clear to auscultation. ABDOMEN: soft. EXTREMITIES: no edema. PERIPHERAL PULSES: equal. NEUROLOGIC: Sedated and intubated. Objective Labs and Meds 08/19/24 07:01 08/19/24 07:01 Lab results: Laboratory Results - last 24 hr 08/18/24 08/18/24 08/18/24 11:12 15:39 17:28 WBC RBC Hgb Hct MCV MCH MCHC RDW Plt Count MPV Immature Gran % (Auto) Neut % (Auto) Lymph % (Auto) Mellette % (Auto) Eos % (Auto) Baso % (Auto) Lymph # (Auto) Mellette # (Auto) Eos # (Auto) Baso # (Auto) Abs Immat Gran (auto) Absolute Neuts (auto) Absolute Nucleated RBC Nucleated RBC % (auto) Neutrophils % (Manual) Band Neutrophils % Lymphocytes % (Manual) Monocytes % (Manual) Metamyelocytes % Myelocytes % Promyelocytes % Abs Neuts (Manual) Lymphocytes # (Manual) Monocytes # (Manual) Metamyelocytes # Myelocytes # Promyelocytes # Nucleated RBCs Smudge Cells Toxic Vacuolation Platelet Estimate Large Platelets Plt Morphology Comment RBC Morphology Polychromasia Hypochromasia Tear Drop Cells Ovalocytes Alma Cells Schistocytes Smear Path Review PT INR aPTT Heparin Protocol 58.5 D VBG pH VBG pCO2 VBG pO2 VBG HCO3 VBG O2 Saturation VBG Base Excess Sodium Potassium Chloride Carbon Dioxide Anion Gap BUN Creatinine Estim Creat Clear Calc Estimated GFR POC Glucose 181 H 176 H Random Glucose Calcium Phosphorus Magnesium Total Bilirubin AST ALT Alkaline Phosphatase Troponin I High Sens B-Natriuretic Peptide Total Protein Albumin 08/18/24 08/18/24 08/19/24 19:16 21:28 00:06 WBC 20.3 H RBC 2.64 L Hgb 7.5 L Hct 22.3 L MCV 84.5 MCH 28.4 MCHC 33.6 RDW 17.2 H Plt Count 195 MPV 12.9 H Immature Gran % (Auto) Cancelled Neut % (Auto) Cancelled Lymph % (Auto) Cancelled Mellette % (Auto) Cancelled Eos % (Auto) Cancelled Baso % (Auto) Cancelled Lymph # (Auto) Cancelled Mellette # (Auto) Cancelled Eos # (Auto) Cancelled Baso # (Auto) Cancelled Abs Immat Gran (auto) Cancelled Absolute Neuts (auto) Cancelled Absolute Nucleated RBC 0.920 H Nucleated RBC % (auto) 4.5 H Neutrophils % (Manual) 79 H Band Neutrophils % 0 L Lymphocytes % (Manual) 9 L Monocytes % (Manual) 9 Metamyelocytes % 1 Myelocytes % 2 Promyelocytes % Abs Neuts (Manual) 16.0 H Lymphocytes # (Manual) 1.8 Monocytes # (Manual) 1.8 H Metamyelocytes # 0.2 Myelocytes # 0.4 Promyelocytes # Nucleated RBCs 7 H Smudge Cells Toxic Vacuolation PRESENT Platelet Estimate NORMAL Large Platelets Plt Morphology Comment NORMAL RBC Morphology NOTED Polychromasia 1+ (0-2) Hypochromasia 1+ (5-14) Tear Drop Cells Ovalocytes 1+ (5-14) Herminie Cells Schistocytes 1+ (0-2) Smear Path Review PT INR aPTT Heparin Protocol 99.5 H D VBG pH VBG pCO2 VBG pO2 VBG HCO3 VBG O2 Saturation VBG Base Excess Sodium 139 Potassium 4.9 Chloride 95 L Carbon Dioxide 25 Anion Gap 24 H BUN 118 H Creatinine 6.11 H* Estim Creat Clear Calc 9.4 Estimated GFR 7 POC Glucose 201 H Random Glucose 205 H Calcium 8.7 Phosphorus 6.9 H Magnesium 2.9 H Total Bilirubin AST ALT Alkaline Phosphatase Troponin I High Sens B-Natriuretic Peptide Total Protein Albumin 4.0 08/19/24 08/19/24 08/19/24 00:48 00:53 05:05 WBC 26.9 H RBC 2.94 L Hgb 8.3 L Hct 25.3 L MCV 86.1 MCH 28.2 MCHC 32.8 RDW 17.4 H Plt Count 243 MPV 12.8 H Immature Gran % (Auto) Neut % (Auto) Lymph % (Auto) Mellette % (Auto) Eos % (Auto) Baso % (Auto) Lymph # (Auto) Mellette # (Auto) Eos # (Auto) Baso # (Auto) Abs Immat Gran (auto) Absolute Neuts (auto) Absolute Nucleated RBC 1.910 H Nucleated RBC % (auto) 7.1 H Neutrophils % (Manual) 74 H Band Neutrophils % 7 H Lymphocytes % (Manual) 9 L Monocytes % (Manual) 3 Metamyelocytes % 5 Myelocytes % 2 Promyelocytes % Abs Neuts (Manual) 21.8 H Lymphocytes # (Manual) 2.4 Monocytes # (Manual) 0.8 Metamyelocytes # 1.3 Myelocytes # 0.5 Promyelocytes # Nucleated RBCs 4 H Smudge Cells PRESENT Toxic Vacuolation Platelet Estimate NORMAL Large Platelets PRESENT Plt Morphology Comment NOTED RBC Morphology NOTED Polychromasia 1+ (0-2) Hypochromasia Tear Drop Cells Ovalocytes 1+ (5-14) Herminie Cells 1+ (0-2) Schistocytes 1+ (0-2) Smear Path Review PT INR aPTT Heparin Protocol Cancelled VBG pH 7.24 L VBG pCO2 54 VBG pO2 46 VBG HCO3 23 VBG O2 Saturation 56.0 VBG Base Excess -3.9 Sodium 137 Potassium 6.0 H* D Chloride 93 L Carbon Dioxide 23 Anion Gap 27 H BUN 122 H Creatinine 6.50 H* Estim Creat Clear Calc 8.8 Estimated GFR 6 POC Glucose Random Glucose 269 H Calcium 9.1 Phosphorus 8.4 H Magnesium 3.1 H Total Bilirubin AST ALT Alkaline Phosphatase Troponin I High Sens B-Natriuretic Peptide Total Protein Albumin 4.0 08/19/24 08/19/24 08/19/24 06:27 07:00 07:01 WBC 52.3 H* RBC 3.50 L Hgb 10.1 L D Hct 30.0 L MCV 85.7 MCH 28.9 MCHC 33.7 RDW 17.5 H Plt Count 328 D MPV TNP Immature Gran % (Auto) Cancelled Neut % (Auto) Cancelled Lymph % (Auto) Cancelled Mellette % (Auto) Cancelled Eos % (Auto) Cancelled Baso % (Auto) Cancelled Lymph # (Auto) Cancelled Mellette # (Auto) Cancelled Eos # (Auto) Cancelled Baso # (Auto) Cancelled Abs Immat Gran (auto) Cancelled Absolute Neuts (auto) Cancelled Absolute Nucleated RBC 9.830 H Nucleated RBC % (auto) 18.8 H Neutrophils % (Manual) 52 Band Neutrophils % 22 H Lymphocytes % (Manual) 3 L Monocytes % (Manual) 3 Metamyelocytes % 14 Myelocytes % 4 Promyelocytes % 2 Abs Neuts (Manual) 38.7 H Lymphocytes # (Manual) 1.6 Monocytes # (Manual) 1.6 H Metamyelocytes # 7.3 Myelocytes # 2.1 Promyelocytes # 1.0 Nucleated RBCs 32 H Smudge Cells PRESENT Toxic Vacuolation PRESENT Platelet Estimate NORMAL Large Platelets PRESENT Plt Morphology Comment NOTED RBC Morphology NOTED Polychromasia 1+ (0-2) Hypochromasia 1+ (5-14) Tear Drop Cells 2+ (3-5) Ovalocytes 1+ (5-14) Alma Cells 2+ (3-5) Schistocytes 2+ (3-5) Smear Path Review SEE NOTE PT 21.3 H INR 1.8 H aPTT Heparin Protocol 72.8 D VBG pH VBG pCO2 VBG pO2 VBG HCO3 VBG O2 Saturation VBG Base Excess Sodium 142 Potassium 4.0 D Chloride 94 L Carbon Dioxide 27 Anion Gap 25 H BUN 55 H Creatinine 3.26 H Estim Creat Clear Calc 17.5 Estimated GFR 14 POC Glucose 147 H Random Glucose 130 H Calcium 9.8 D Phosphorus 5.6 H Magnesium 2.4 Total Bilirubin 3.5 H AST 646 H ALT 967 H Alkaline Phosphatase 181 H Troponin I High Sens 775.0 H* D B-Natriuretic Peptide 4007 H Total Protein 9.0 H Albumin 4.7 08/19/24 07:09 WBC RBC Hgb Hct MCV MCH MCHC RDW Plt Count MPV Immature Gran % (Auto) Neut % (Auto) Lymph % (Auto) Mellette % (Auto) Eos % (Auto) Baso % (Auto) Lymph # (Auto) Mellette # (Auto) Eos # (Auto) Baso # (Auto) Abs Immat Gran (auto) Absolute Neuts (auto) Absolute Nucleated RBC Nucleated RBC % (auto) Neutrophils % (Manual) Band Neutrophils % Lymphocytes % (Manual) Monocytes % (Manual) Metamyelocytes % Myelocytes % Promyelocytes % Abs Neuts (Manual) Lymphocytes # (Manual) Monocytes # (Manual) Metamyelocytes # Myelocytes # Promyelocytes # Nucleated RBCs Smudge Cells Toxic Vacuolation Platelet Estimate Large Platelets Plt Morphology Comment RBC Morphology Polychromasia Hypochromasia Tear Drop Cells Ovalocytes Alma Cells Schistocytes Smear Path Review PT INR aPTT Heparin Protocol VBG pH 7.39 VBG pCO2 55 VBG pO2 81 VBG HCO3 33 H VBG O2 Saturation 93.0 VBG Base Excess 7.1 Sodium Potassium Chloride Carbon Dioxide Anion Gap BUN Creatinine Estim Creat Clear Calc Estimated GFR POC Glucose Random Glucose Calcium Phosphorus Magnesium Total Bilirubin AST ALT Alkaline Phosphatase Troponin I High Sens B-Natriuretic Peptide Total Protein Albumin Progress Note: A&P Assessment and plan (1) PAF (paroxysmal atrial fibrillation): Status: Acute (2) Acute hypoxic respiratory failure: Status: Acute Plan 68 female with respiratory failure on vent and PAF. In sinus rhythm. She has previous MVR with mechanical valve. By auscultation valve sounds normal but agree repeating echo to assess the mitral valve as vitamin K was given to reverse INR. She has been on heparin gtt appropriately. We will follow along with you. Time Spent With Patient Time: Total time managing care of this patient today ____ minutes. Progress Note: Quality Stroke Does the patient have a stroke diagnosis?: No Procedures Date of Service Date of Service: 08/19/24
--- NOTE | 2024-08-19 09:59 | P.PNCC_ITS ---
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 Treated with high-dose systemic glucocorticoids, empiric antibiotics, and diuresis with hospital course further complicated by acute renal failure requiring initiation hemodialysis overnight secondary to hyperkalemia, metabolic acidosis, and worsening FiO2 requirements. Now with improvement in oxygen requirements, but with development of leukemoid reaction. Critical Care Time (minutes): 90 Physical Exam 2 Vital Signs: Vital Signs: Last Vital Signs Temp 100.2 F 08/19/24 09:00 Pulse 82 08/19/24 09:00 Resp 18 08/19/24 09:00 BP 129/66 08/19/24 09:00 Pulse Ox 92 08/19/24 09:00 O2 Del Method Mechanical Ventil ation 08/19/24 09:00 O2 Flow Rate 50 08/15/24 09:00 FiO2 100 08/19/24 09:00 BMI result Body Mass Index 37.5 Const: General: no acute distress and other (Sedated on the vent) Eyes: Sclerae: sclerae normal EOM: EOMs intact bilaterally Neck: Neck: Yes no lymphadenopathy, Yes trachea midline and Yes supple Resp: Auscultation: clear to auscultation bilaterally and crackles (Bilateral) Cardio: Rate: regular rate Rhythm: regular rhythm Heart sounds: no gallops, no murmurs and no rubs GI: Palpation (GI): Soft to palpation and Other GI palpation findings present ( Nontender) Auscultation: normal bowel sounds Extrem: General: No clubbing, No cyanosis and Yes edema (Trace bilateral) Objective Data Labs 08/19/24 07:01 08/19/24 07:01 Labs: Laboratory Results - last 24 hr 08/18/24 08/18/24 08/18/24 11:12 15:39 17:28 WBC RBC Hgb Hct MCV MCH MCHC RDW Plt Count MPV Immature Gran % (Auto) Neut % (Auto) Lymph % (Auto) [place] % (Auto) Eos % (Auto) Baso % (Auto) Lymph # (Auto) [place] # (Auto) Eos # (Auto) Baso # (Auto) Abs Immat Gran (auto) Absolute Neuts (auto) Absolute Nucleated RBC Nucleated RBC % (auto) Neutrophils % (Manual) Band Neutrophils % Lymphocytes % (Manual) Monocytes % (Manual) Metamyelocytes % Myelocytes % Promyelocytes % Abs Neuts (Manual) Lymphocytes # (Manual) Monocytes # (Manual) Metamyelocytes # Myelocytes # Promyelocytes # Nucleated RBCs Smudge Cells Toxic Vacuolation Platelet Estimate Large Platelets Plt Morphology Comment RBC Morphology Polychromasia Hypochromasia Tear Drop Cells Ovalocytes [place] Cells Schistocytes Smear Path Review PT INR aPTT Heparin Protocol 58.5 D VBG pH VBG pCO2 VBG pO2 VBG HCO3 VBG O2 Saturation VBG Base Excess Sodium Potassium Chloride Carbon Dioxide Anion Gap BUN Creatinine Estim Creat Clear Calc Estimated GFR POC Glucose 181 H 176 H Random Glucose Calcium Phosphorus Magnesium Total Bilirubin AST ALT Alkaline Phosphatase Troponin I High Sens B-Natriuretic Peptide Total Protein Albumin 08/18/24 08/18/24 08/19/24 19:16 21:28 00:06 WBC 20.3 H RBC 2.64 L Hgb 7.5 L Hct 22.3 L MCV 84.5 MCH 28.4 MCHC 33.6 RDW 17.2 H Plt Count 195 MPV 12.9 H Immature Gran % (Auto) Cancelled Neut % (Auto) Cancelled Lymph % (Auto) Cancelled [place] % (Auto) Cancelled Eos % (Auto) Cancelled Baso % (Auto) Cancelled Lymph # (Auto) Cancelled [place] # (Auto) Cancelled Eos # (Auto) Cancelled Baso # (Auto) Cancelled Abs Immat Gran (auto) Cancelled Absolute Neuts (auto) Cancelled Absolute Nucleated RBC 0.920 H Nucleated RBC % (auto) 4.5 H Neutrophils % (Manual) 79 H Band Neutrophils % 0 L Lymphocytes % (Manual) 9 L Monocytes % (Manual) 9 Metamyelocytes % 1 Myelocytes % 2 Promyelocytes % Abs Neuts (Manual) 16.0 H Lymphocytes # (Manual) 1.8 Monocytes # (Manual) 1.8 H Metamyelocytes # 0.2 Myelocytes # 0.4 Promyelocytes # Nucleated RBCs 7 H Smudge Cells Toxic Vacuolation PRESENT Platelet Estimate NORMAL Large Platelets Plt Morphology Comment NORMAL RBC Morphology NOTED Polychromasia 1+ (0-2) Hypochromasia 1+ (5-14) Tear Drop Cells Ovalocytes 1+ (5-14) [place] Cells Schistocytes 1+ (0-2) Smear Path Review PT INR aPTT Heparin Protocol 99.5 H D VBG pH VBG pCO2 VBG pO2 VBG HCO3 VBG O2 Saturation VBG Base Excess Sodium 139 Potassium 4.9 Chloride 95 L Carbon Dioxide 25 Anion Gap 24 H BUN 118 H Creatinine 6.11 H* Estim Creat Clear Calc 9.4 Estimated GFR 7 POC Glucose 201 H Random Glucose 205 H Calcium 8.7 Phosphorus 6.9 H Magnesium 2.9 H Total Bilirubin AST ALT Alkaline Phosphatase Troponin I High Sens B-Natriuretic Peptide Total Protein Albumin 4.0 08/19/24 08/19/24 08/19/24 00:48 00:53 05:05 WBC 26.9 H RBC 2.94 L Hgb 8.3 L Hct 25.3 L MCV 86.1 MCH 28.2 MCHC 32.8 RDW 17.4 H Plt Count 243 MPV 12.8 H Immature Gran % (Auto) Neut % (Auto) Lymph % (Auto) [place] % (Auto) Eos % (Auto) Baso % (Auto) Lymph # (Auto) [place] # (Auto) Eos # (Auto) Baso # (Auto) Abs Immat Gran (auto) Absolute Neuts (auto) Absolute Nucleated RBC 1.910 H Nucleated RBC % (auto) 7.1 H Neutrophils % (Manual) 74 H Band Neutrophils % 7 H Lymphocytes % (Manual) 9 L Monocytes % (Manual) 3 Metamyelocytes % 5 Myelocytes % 2 Promyelocytes % Abs Neuts (Manual) 21.8 H Lymphocytes # (Manual) 2.4 Monocytes # (Manual) 0.8 Metamyelocytes # 1.3 Myelocytes # 0.5 Promyelocytes # Nucleated RBCs 4 H Smudge Cells PRESENT Toxic Vacuolation Platelet Estimate NORMAL Large Platelets PRESENT Plt Morphology Comment NOTED RBC Morphology NOTED Polychromasia 1+ (0-2) Hypochromasia Tear Drop Cells Ovalocytes 1+ (5-14) [place] Cells 1+ (0-2) Schistocytes 1+ (0-2) Smear Path Review PT INR aPTT Heparin Protocol Cancelled VBG pH 7.24 L VBG pCO2 54 VBG pO2 46 VBG HCO3 23 VBG O2 Saturation 56.0 VBG Base Excess -3.9 Sodium 137 Potassium 6.0 H* D Chloride 93 L Carbon Dioxide 23 Anion Gap 27 H BUN 122 H Creatinine 6.50 H* Estim Creat Clear Calc 8.8 Estimated GFR 6 POC Glucose Random Glucose 269 H Calcium 9.1 Phosphorus 8.4 H Magnesium 3.1 H Total Bilirubin AST ALT Alkaline Phosphatase Troponin I High Sens B-Natriuretic Peptide Total Protein Albumin 4.0 08/19/24 08/19/24 08/19/24 06:27 07:00 07:01 WBC 52.3 H* RBC 3.50 L Hgb 10.1 L D Hct 30.0 L MCV 85.7 MCH 28.9 MCHC 33.7 RDW 17.5 H Plt Count 328 D MPV TNP Immature Gran % (Auto) Cancelled Neut % (Auto) Cancelled Lymph % (Auto) Cancelled [place] % (Auto) Cancelled Eos % (Auto) Cancelled Baso % (Auto) Cancelled Lymph # (Auto) Cancelled [place] # (Auto) Cancelled Eos # (Auto) Cancelled Baso # (Auto) Cancelled Abs Immat Gran (auto) Cancelled Absolute Neuts (auto) Cancelled Absolute Nucleated RBC 9.830 H Nucleated RBC % (auto) 18.8 H Neutrophils % (Manual) 52 Band Neutrophils % 22 H Lymphocytes % (Manual) 3 L Monocytes % (Manual) 3 Metamyelocytes % 14 Myelocytes % 4 Promyelocytes % 2 Abs Neuts (Manual) 38.7 H Lymphocytes # (Manual) 1.6 Monocytes # (Manual) 1.6 H Metamyelocytes # 7.3 Myelocytes # 2.1 Promyelocytes # 1.0 Nucleated RBCs 32 H Smudge Cells PRESENT Toxic Vacuolation PRESENT Platelet Estimate NORMAL Large Platelets PRESENT Plt Morphology Comment NOTED RBC Morphology NOTED Polychromasia 1+ (0-2) Hypochromasia 1+ (5-14) Tear Drop Cells 2+ (3-5) Ovalocytes 1+ (5-14) [place] Cells 2+ (3-5) Schistocytes 2+ (3-5) Smear Path Review SEE NOTE PT 21.3 H INR 1.8 H aPTT Heparin Protocol 72.8 D VBG pH VBG pCO2 VBG pO2 VBG HCO3 VBG O2 Saturation VBG Base Excess Sodium 142 Potassium 4.0 D Chloride 94 L Carbon Dioxide 27 Anion Gap 25 H BUN 55 H Creatinine 3.26 H Estim Creat Clear Calc 17.5 Estimated GFR 14 POC Glucose 147 H Random Glucose 130 H Calcium 9.8 D Phosphorus 5.6 H Magnesium 2.4 Total Bilirubin 3.5 H AST 646 H ALT 967 H Alkaline Phosphatase 181 H Troponin I High Sens 775.0 H* D B-Natriuretic Peptide 4007 H Total Protein 9.0 H Albumin 4.7 08/19/24 07:09 WBC RBC Hgb Hct MCV MCH MCHC RDW Plt Count MPV Immature Gran % (Auto) Neut % (Auto) Lymph % (Auto) [place] % (Auto) Eos % (Auto) Baso % (Auto) Lymph # (Auto) [place] # (Auto) Eos # (Auto) Baso # (Auto) Abs Immat Gran (auto) Absolute Neuts (auto) Absolute Nucleated RBC Nucleated RBC % (auto) Neutrophils % (Manual) Band Neutrophils % Lymphocytes % (Manual) Monocytes % (Manual) Metamyelocytes % Myelocytes % Promyelocytes % Abs Neuts (Manual) Lymphocytes # (Manual) Monocytes # (Manual) Metamyelocytes # Myelocytes # Promyelocytes # Nucleated RBCs Smudge Cells Toxic Vacuolation Platelet Estimate Large Platelets Plt Morphology Comment RBC Morphology Polychromasia Hypochromasia Tear Drop Cells Ovalocytes [place] Cells Schistocytes Smear Path Review PT INR aPTT Heparin Protocol VBG pH 7.39 VBG pCO2 55 VBG pO2 81 VBG HCO3 33 H VBG O2 Saturation 93.0 VBG Base Excess 7.1 Sodium Potassium Chloride Carbon Dioxide Anion Gap BUN Creatinine Estim Creat Clear Calc Estimated GFR POC Glucose Random Glucose Calcium Phosphorus Magnesium Total Bilirubin AST ALT Alkaline Phosphatase Troponin I High Sens B-Natriuretic Peptide Total Protein Albumin Microbiology Microbiology Results: Microbiology 08/14/24 07:23 Blood - Venous Blood Culture - Final No growth after 5 days. 08/14/24 07:23 Blood - Venous Blood Culture - Final No growth after 5 days. 08/13/24 08:03 Blood - Venous Blood Culture - Final No growth after 5 days. 08/13/24 08:03 Blood - Venous Blood Culture - Final No growth after 5 days. 08/14/24 Unknown Urine Catheterized - Gloria Catheter Urine Culture - Final No growth. Progress Note: A&P Assessment and plan (1) Hepatic congestion: Status: Acute (2) Shock: Status: Acute (3) Abnormal CT scan, chest: Status: Acute (4) PAF (paroxysmal atrial fibrillation): Status: Acute (5) Acute and chronic respiratory failure: Status: Acute (6) Acute hypoxic respiratory failure: Status: Acute (7) EUGENIO (acute kidney injury): Status: Resolved Plan Assessment: 68-year-old lady admitted on 08/13/2024 with acute hypoxic respiratory failure with likely inflammatory etiology, now requiring ventilatory support. Plan: Neuro: Steroid induced encephalopathy secondary to high-dose systemic glucocorticoids, expect to improve with steroid taper. Also, likely uremic encephalopathy secondary to acute renal failure. Cardiac: Shock, undifferentiated. Continue to titrate off pressor support as tolerated. Pulmonary: Acute hypoxic respiratory failure, likely inflammatory in origin. Improving with systemic glucocorticoids. CT chest with dense infiltrates, not in peribronchovascular distribution, more consistent with edema. Continue to titrate off ventilatory support as tolerated. Renal: EUGENIO, secondary to shock. Anuric. Nephrology service care appreciated. Started on hemodialysis support. Endo: No acute issues. GI: Passive hepatic congestion likely secondary to congestive heart failure. ID: Possible pneumonia, continue empiric broad-spectrum antibiotics. Cultures negative to date. Antibiotics switched to meropenem/linezolid and caspofungin added. Heme/Onc: Subtherapeutic INR on a background of acute kidney failure. Underlying mechanical MVR. Bridge with heparin drip. Restart Coumadin with INR goal of 2.5-3.5. Psych: No acute issues. Miscellaneous: No acute issues. Prophylaxis: Heparin drip, ppi Diet: Tube feeds Critical care time spent: 90 minutes Quality Stroke Does the patient have a stroke diagnosis?: No VTE Prior VTE?: No VTE Risk Level:: Medical - moderate - high VTE Device Contraindication: N/A - Device Ordered VTE Drug Contraindication: N/A - Med Ordered
[2024-08-19] MEDS: Caspofungin Acetate 70 MG in 0.9 % Sodium Chloride 250 ML 250 MG IV (10:09)
[2024-08-19] MEDS: Vasopressin 20 UNIT/100 ML INFUS..BTL 12 UNIT IVCONT ×2 (10:10→16:12)
[2024-08-19 10:44] LABS: HBS Num1 0.49 mIU/mL (0-7.99); ~Hepatitis B Surface Antibody NONREACTIVE (Nonreactive)
--- NOTE | 2024-08-19 11:00 | CA_ITS ---
Transthoracic Echocardiogram Patient (Last, First, Middle): Nubia Bond, Gender: Female Date of : 1955 Age: 68 Procedure Date: 08/19/2024 Procedure Type: Transthoracic Echocardiogram Location: ICU Height: 157.48 cm Weight: 92.99 kg BSA: 1.93 m2 Heart Rate: bpm BP: 135 / 62 mmHg Customer Logistics Manager: COURTNEY Referring MD: Reji Flores MD Symptoms: shock Study Quality: Fair, contrast Conclusions: - Normal left ventricular cavity size. There is mildly increased left ventricular wall thickness. The left ventricular systolic function is hyperdynamic. The visually estimated ejection fraction is >70%. - Mildly increased right ventricular cavity size. There is moderately decreased right ventricular systolic function. - The left atrium is severely dilated. - There is moderate aortic valve stenosis. - There is mild dilatation of the ascending aorta measuring 3.80 cm. - Severe pulmonary hypertension is present. PASP = 77 + right atrial pressure. Findings Procedure Information Contrast agent, definity, is being given per protocol without apparent complications. Left Ventricle Normal left ventricular cavity size. There is mildly increased left ventricular wall thickness. The left ventricular systolic function is hyperdynamic. The visually estimated ejection fraction is >70%. There is no evidence of regional wall motion abnormalities. There is a flattened septum in systole and diastole consistent with right ventricular pressure and volumeoverload. Diastolic fun ction is indeterminate on the basis of available data. Right Ventricle Mildly increased right ventricular cavity size. There is moderately decreased right ventricular systolic function. Atria The left atrium is severely dilated. Aortic Valve A bioprosthetic aortic valve is present. The aortic valve was not well visualized. There is moderate aortic valve stenosis. There is trace (trivial) aortic valve regurgitation. Mitral Valve A mechanical prosthetic mitral valve is present. The prosthetic mitral valve appears to be functioning normally. There is no mitral valve regurgitation. There is no mitral valve stenosis. Pulmonic Valve The pulmonic valve is likely normal. Tricuspid Valve The tricuspid valve was not well visualized. There is mild tricuspid valve regurgitation. Indeterminate right atrial pressure. Severe pulmonary hypertension is present. Great Vessels There is mild dilatation of the ascending aorta measuring 3.80 cm. The visualized portions of the pulmonary artery and branches are normal. Venous The inferior vena cava is dilated and does not collapse with inspiration. Pericardium/Pleural There is no evidence of pericardial effusion. Prior Study Comparison Changes noted compared to prior study dated: 07/29/2024. Elevated gradient across AV. Hyperdynamic LV. Severe pulm HTN. Mod RV dysfunction. Measurements 2D Linear Measurements IVSd: 1.15 0.6-0.9/0.6-1.0 cm LVIDd: 4.76 3.9-5.3/4.2-5.9 cm LVIDd Index: 2.47 2.4-3.2/2.2-3.1 cm/m2 LVIDs: 3.30 2.0-3.6 cm LVPWd: 1.19 0.7-1.1 cm LA Diam: 5.00 2.7-3.8/3.0-4.0 cm LAIDs Index: 2.59 1.5-2.3 cm/m2 LV Mass: 260.06 67-162/88-224 g LV Mass Index: 134.75 43-95/49-115 g/m2 LVOT Diam: 2.00 3.0+(-)1.3 cm 2D Systolic Function EF 4C: 62.80 >55% EF 2C: 85.80 >55% EF BiP: 75.30 >55% Mitral Valve MV VTI: 0.37 MV Pk Vern: 1.81 MV Mn Vern: 0.87 MV Pk Grad: 13.00 MV Mn Grad: 4.00 MV Pk E: 1.47 MV Decel Time: 189.00 E'Lateral: 5.22 E'Medial: 3.05 E/E' Med: 48.20 E/E' Lat: 28.20 PHT: 55.00 MVA PHT: 4.00 MVA Continuity: 1.[address] [place]: 7.77 Aortic Valve AoV Pk Vern: 3.11 AoV Mn Vern: 1.90 AoV VTI: 0.41 AoV Pk Grad: 39.00 Aov Mn Grad: 18.00 RADHA Cont.VTI: 1.59 AI Pk Vern: 3.[address] [place]: 2.59 LVOT LVOT Pk Vern: 1.61 LVOT Mn Vern: 1.08 LVOT VTI: 0.21 LVOT Pk Grad: 10.00 LVOT Mn Grad: 6.00 LVOT Diam: 2.00 LVOT Area: 3.14 Diastolic Function MV Pk E: 1.47 E'Medial: 3.05 E/E' Med: 48.20 E' Laterial: 5.22 E/E' Lat: 28.20 Right Ventricle TAPSE (mm): 10.10 TVS' Vern: 9.36 Tricuspid Valve TV Pk Vern: 1.31 TV Mn Vern: 0.72 TV Pk Grad: 7.00 TV Mn Grad: 2.00 TR Pk Vern: 4.53 TR Pk Grad: 82.00 Great Vessels Aorta Ao Asc: 3.80 2.1-3.4 cm Updated in Other Vendor System with Status of Final López Lion MD electronically signed on 08/19/2024 5:11:01 PM with status of Final
[2024-08-19 11:14] LABS: Glucose, Whole Blood 189 mg/dL (60-115)
--- NOTE | 2024-08-19 11:28 | MHC.CLN ---
F/U PT REMAINS INTUBATED AND SEDATED REVIEWED LABS PT RECEIVING NEPRO AT MAX GOAL RATE 20ML/HR PROVIDES 864KCALS (1374KCALS WITH SEDATION; 23KCALS/KG), 39G PROTEIN, 349ML FREE WATER FROM FORMULA MONITOR TOLERANCE AND LYTES
[2024-08-19] MEDS: Norepinephrine Bitartrate/D5W 8 MG/250 ML PLAST..BAG 41.43 MG IVCONT (11:30)
[2024-08-19 11:48] LABS: HBc Num1 0.34 S/CO (0.00-0.79); Hepatitis B Core Antibody Nonreactive (Nonreactive); Hepatitis B Surface Antigen Negative (Negative)
--- NOTE | 2024-08-19 12:22 | P.CDIM_ITS ---
PROVIDER RESPONSE TEXT: To clarify, the appropriate diagnosis supported by the clinical indicators: Acute on chronic QUERY TEXT: PHYSICIAN'S DOCUMENTATION REQUEST Date of Query: 08/19/2024 10:35 AM EDT Patient Name: Nubia Bond Admit Date: 08/13/2024 Dear Reji Flores MD, A review of the medical record indicates additional documentation may be needed. Please review below and update the documentation accordingly. Clinical Indicators: PMH: diastolic heart failure Per Critical Care Progress Note 08/19/24: Passive hepatic congestion likely secondary to congestive heart failure Clarify which of the following accurately represents the acuity of the CHF. Possible options might include: Acute Acute on chronic Compensated Chronic stable condition Remission Other (explain) Clinically unable to determine (explain) Thank you, Jennifer Anderson RN Use of terms such as suspected, likely, concern for, or probable (associated with a specific diagnosi s that is being evaluated, monitored, or treated as if it exists) are acceptable and can be coded in the inpatient se tting, when documented at the time of discharge. Please use your independent medical judgment in providing your response. THIS QUERY IS PART OF THE PERMANENT MEDICAL RECORD
[2024-08-19 13:22] LABS: Myeloperoxidase Antibody <1.0 AI; Proteinase 3 PR3 Antibodies <1.0 AI
[2024-08-19 13:40] LABS: PTT Heparin Drip 62.9 SEC (53-77.9)
--- NOTE | 2024-08-19 13:54 | P.PNNP_ITS ---
Subjective Subjective Date of Service: 08/19/24 Interval history: Pt is a 68 y/o female with a medical history of afib, HFpEF, aortic stenosis, s/p St Alex valve in 2005 on coumadin, s/p TAVR in 2021, hx amiodarine toxicity, ILD, COPD on 3L at home, pacemaker in place, SOHAIL (non on CPAP), DMII, dementia (preliminary dx per family). ED on 08/13 with dyspnea, fatigue, cough, hospitalized for treatment of hypoxic resp failure in setting of PNA/sepsis. transferred to ICU on 08/14 due to worsening respiratory status requiring intubation, vasopressor support. Nephrology consulted for EUGENIO creatinine trend: 08/14 0.75 08/15 2.17 08/16 3.05 08/17 4.51 08/18 5.19 08/18 6.11 08/19 3.26 vancomycin d/c'd. patient developed increasing oxygen requirements overnight, minimal UOP and potassium of 6.0 early 08/19, received emergent HD post dialysis, she has had improvement in fiO2 requirements, electrolytes normalized, creatinine down to 3.26 post HD Physical Exam 2 Vital Signs: Vital Signs: Last Vital Signs Temp 102.0 F H 08/19/24 13:00 Pulse 85 08/19/24 13:00 Resp 16 08/19/24 13:00 BP 106/50 L 08/19/24 13:00 Pulse Ox 91 L 08/19/24 13:00 O2 Del Method Mechanical Ventil ation 08/19/24 13:00 O2 Flow Rate 50 08/15/24 09:00 FiO2 60 08/19/24 13:00 BMI result Body Mass Index 37.5 Const: General: other (intubated/sedated) Resp: Effort & Inspection: normal respiratory effort (intubated) A uscultation: rhonchi Cardio: Rate: regular rate Rhythm: abnormal rhythm Heart sounds: S1 normal heart sound present and S2 normal heart sound present GI: Palpation (GI): Soft to palpation and nontender Skin: Rashes: rash noted Neuro: Other: no hyperreflexia to bilateral brachioradialis reflexes no myoclonus when holding patient's arm up General: other (sedated ) Extrem: General: Yes no pedal edema and No edema (no lower extremity edema ) Objective Data Labs 08/19/24 07:01 08/19/24 07:01 Labs: Laboratory Results - last 24 hr 08/14/24 08/18/24 08/18/24 14:52 15:39 17:28 WBC RBC Hgb Hct MCV MCH MCHC RDW Plt Count MPV Immature Gran % (Auto) Neut % (Auto) Lymph % (Auto) [place] % (Auto) Eos % (Auto) Baso % (Auto) Lymph # (Auto) [place] # (Auto) Eos # (Auto) Baso # (Auto) Abs Immat Gran (auto) Absolute Neuts (auto) Absolute Nucleated RBC Nucleated RBC % (auto) Neutrophils % (Manual) Band Neutrophils % Lymphocytes % (Manual) Monocytes % (Manual) Metamyelocytes % Myelocytes % Promyelocytes % Abs Neuts (Manual) Lymphocytes # (Manual) Monocytes # (Manual) Metamyelocytes # Myelocytes # Promyelocytes # Nucleated RBCs Smudge Cells Toxic Vacuolation Platelet Estimate Large Platelets Plt Morphology Comment RBC Morphology Polychromasia Hypochromasia Tear Drop Cells Ovalocytes [place] Cells Schistocytes Smear Path Review PT INR aPTT Heparin Protocol 58.5 D VBG pH VBG pCO2 VBG pO2 VBG HCO3 VBG O2 Saturation VBG Base Excess Sodium Potassium Chloride Carbon Dioxide Anion Gap BUN Creatinine Estim Creat Clear Calc Estimated GFR POC Glucose 176 H Random Glucose Calcium Phosphorus Magnesium Total Bilirubin AST ALT Alkaline Phosphatase Troponin I High Sens B-Natriuretic Peptide Total Protein Albumin Proteinase 3 (PR3) Ab <1.0 Myeloperoxidase Ab <1.0 Hep Bs Antigen Hep Bs Antibody Hep B Core Total Ab 08/18/24 08/18/24 08/19/24 19:16 21:28 00:06 WBC 20.3 H RBC 2.64 L Hgb 7.5 L Hct 22.3 L MCV 84.5 MCH 28.4 MCHC 33.6 RDW 17.2 H Plt Count 195 MPV 12.9 H Immature Gran % (Auto) Cancelled Neut % (Auto) Cancelled Lymph % (Auto) Cancelled [place] % (Auto) Cancelled Eos % (Auto) Cancelled Baso % (Auto) Cancelled Lymph # (Auto) Cancelled [place] # (Auto) Cancelled Eos # (Auto) Cancelled Baso # (Auto) Cancelled Abs Immat Gran (auto) Cancelled Absolute Neuts (auto) Cancelled Absolute Nucleated RBC 0.920 H Nucleated RBC % (auto) 4.5 H Neutrophils % (Manual) 79 H Band Neutrophils % 0 L Lymphocytes % (Manual) 9 L Monocytes % (Manual) 9 Metamyelocytes % 1 Myelocytes % 2 Promyelocytes % Abs Neuts (Manual) 16.0 H Lymphocytes # (Manual) 1.8 Monocytes # (Manual) 1.8 H Metamyelocytes # 0.2 Myelocytes # 0.4 Promyelocytes # Nucleated RBCs 7 H Smudge Cells Toxic Vacuolation PRESENT Platelet Estimate NORMAL Large Platelets Plt Morphology Comment NORMAL RBC Morphology NOTED Polychromasia 1+ (0-2) Hypochromasia 1+ (5-14) Tear Drop Cells Ovalocytes 1+ (5-14) [place] Cells Schistocytes 1+ (0-2) Smear Path Review PT INR aPTT Heparin Protocol 99.5 H D VBG pH VBG pCO2 VBG pO2 VBG HCO3 VBG O2 Saturation VBG Base Excess Sodium 139 Potassium 4.9 Chloride 95 L Carbon Dioxide 25 Anion Gap 24 H BUN 118 H Creatinine 6.11 H* Estim Creat Clear Calc 9.4 Estimated GFR 7 POC Glucose 201 H Random Glucose 205 H Calcium 8.7 Phosphorus 6.9 H Magnesium 2.9 H Total Bilirubin AST ALT Alkaline Phosphatase Troponin I High Sens B-Natriuretic Peptide Total Protein Albumin 4.0 Proteinase 3 (PR3) Ab Myeloperoxidase Ab Hep Bs Antigen Hep Bs Antibody Hep B Core Total Ab 08/19/24 08/19/24 08/19/24 00:48 00:53 05:05 WBC 26.9 H RBC 2.94 L Hgb 8.3 L Hct 25.3 L MCV 86.1 MCH 28.2 MCHC 32.8 RDW 17.4 H Plt Count 243 MPV 12.8 H Immature Gran % (Auto) Neut % (Auto) Lymph % (Auto) [place] % (Auto) Eos % (Auto) Baso % (Auto) Lymph # (Auto) [place] # (Auto) Eos # (Auto) Baso # (Auto) Abs Immat Gran (auto) Absolute Neuts (auto) Absolute Nucleated RBC 1.910 H Nucleated RBC % (auto) 7.1 H Neutrophils % (Manual) 74 H Band Neutrophils % 7 H Lymphocytes % (Manual) 9 L Monocytes % (Manual) 3 Metamyelocytes % 5 Myelocytes % 2 Promyelocytes % Abs Neuts (Manual) 21.8 H Lymphocytes # (Manual) 2.4 Monocytes # (Manual) 0.8 Metamyelocytes # 1.3 Myelocytes # 0.5 Promyelocytes # Nucleated RBCs 4 H Smudge Cells PRESENT Toxic Vacuolation Platelet Estimate NORMAL Large Platelets PRESENT Plt Morphology Comment NOTED RBC Morphology NOTED Polychromasia 1+ (0-2) Hypochromasia Tear Drop Cells Ovalocytes 1+ (5-14) [place] Cells 1+ (0-2) Schistocytes 1+ (0-2) Smear Path Review PT INR aPTT Heparin Protocol Cancelled VBG pH 7.24 L VBG pCO2 54 VBG pO2 46 VBG HCO3 23 VBG O2 Saturation 56.0 VBG Base Excess -3.9 Sodium 137 Potassium 6.0 H* D Chloride 93 L Carbon Dioxide 23 Anion Gap 27 H BUN 122 H Creatinine 6.50 H* Estim Creat Clear Calc 8.8 Estimated GFR 6 POC Glucose Random Glucose 269 H Calcium 9.1 Phosphorus 8.4 H Magnesium 3.1 H Total Bilirubin AST ALT Alkaline Phosphatase Troponin I High Sens B-Natriuretic Peptide Total Protein Albumin 4.0 Proteinase 3 (PR3) Ab Myeloperoxidase Ab Hep Bs Antigen Hep Bs Antibody Hep B Core Total Ab 08/19/24 08/19/24 08/19/24 06:27 07:00 07:01 WBC 52.3 H* RBC 3.50 L Hgb 10.1 L D Hct 30.0 L MCV 85.7 MCH 28.9 MCHC 33.7 RDW 17.5 H Plt Count 328 D MPV TNP Immature Gran % (Auto) Cancelled Neut % (Auto) Cancelled Lymph % (Auto) Cancelled [place] % (Auto) Cancelled Eos % (Auto) Cancelled Baso % (Auto) Cancelled Lymph # (Auto) Cancelled [place] # (Auto) Cancelled Eos # (Auto) Cancelled Baso # (Auto) Cancelled Abs Immat Gran (auto) Cancelled Absolute Neuts (auto) Cancelled Absolute Nucleated RBC 9.830 H Nucleated RBC % (auto) 18.8 H Neutrophils % (Manual) 52 Band Neutrophils % 22 H Lymphocytes % (Manual) 3 L Monocytes % (Manual) 3 Metamyelocytes % 14 Myelocytes % 4 Promyelocytes % 2 Abs Neuts (Manual) 38.7 H Lymphocytes # (Manual) 1.6 Monocytes # (Manual) 1.6 H Metamyelocytes # 7.3 Myelocytes # 2.1 Promyelocytes # 1.0 Nucleated RBCs 32 H Smudge Cells PRESENT Toxic Vacuolation PRESENT Platelet Estimate NORMAL Large Platelets PRESENT Plt Morphology Comment NOTED RBC Morphology NOTED Polychromasia 1+ (0-2) Hypochromasia 1+ (5-14) Tear Drop Cells 2+ (3-5) Ovalocytes 1+ (5-14) [place] Cells 2+ (3-5) Schistocytes 2+ (3-5) Smear Path Review SEE NOTE PT 21.3 H INR 1.8 H aPTT Heparin Protocol 72.8 D VBG pH VBG pCO2 VBG pO2 VBG HCO3 VBG O2 Saturation VBG Base Excess Sodium 142 Potassium 4.0 D Chloride 94 L Carbon Dioxide 27 Anion Gap 25 H BUN 55 H Creatinine 3.26 H Estim Creat Clear Calc 17.5 Estimated GFR 14 POC Glucose 147 H Random Glucose 130 H Calcium 9.8 D Phosphorus 5.6 H Magnesium 2.4 Total Bilirubin 3.5 H AST 646 H ALT 967 H Alkaline Phosphatase 181 H Troponin I High Sens 775.0 H* D B-Natriuretic Peptide 4007 H Total Protein 9.0 H Albumin 4.7 Proteinase 3 (PR3) Ab Myeloperoxidase Ab Hep Bs Antigen Hep Bs Antibody Hep B Core Total Ab 08/19/24 08/19/24 08/19/24 07:09 09:11 11:11 WBC RBC Hgb Hct MCV MCH MCHC RDW Plt Count MPV Immature Gran % (Auto) Neut % (Auto) Lymph % (Auto) [place] % (Auto) Eos % (Auto) Baso % (Auto) Lymph # (Auto) [place] # (Auto) Eos # (Auto) Baso # (Auto) Abs Immat Gran (auto) Absolute Neuts (auto) Absolute Nucleated RBC Nucleated RBC % (auto) Neutrophils % (Manual) Band Neutrophils % Lymphocytes % (Manual) Monocytes % (Manual) Metamyelocytes % Myelocytes % Promyelocytes % Abs Neuts (Manual) Lymphocytes # (Manual) Monocytes # (Manual) Metamyelocytes # Myelocytes # Promyelocytes # Nucleated RBCs Smudge Cells Toxic Vacuolation Platelet Estimate Large Platelets Plt Morphology Comment RBC Morphology Polychromasia Hypochromasia Tear Drop Cells Ovalocytes [place] Cells Schistocytes Smear Path Review PT INR aPTT Heparin Protocol VBG pH 7.39 VBG pCO2 55 VBG pO2 81 VBG HCO3 33 H VBG O2 Saturation 93.0 VBG Base Excess 7.1 Sodium Potassium Chloride Carbon Dioxide Anion Gap BUN Creatinine Estim Creat Clear Calc Estimated GFR POC Glucose 189 H Random Glucose Calcium Phosphorus Magnesium Total Bilirubin AST ALT Alkaline Phosphatase Troponin I High Sens B-Natriuretic Peptide Total Protein Albumin Proteinase 3 (PR3) Ab Myeloperoxidase Ab Hep Bs Antigen Negative Hep Bs Antibody NONREACTIVE Hep B Core Total Ab Nonreactive 08/19/24 13:23 WBC RBC Hgb Hct MCV MCH MCHC RDW Plt Count MPV Immature Gran % (Auto) Neut % (Auto) Lymph % (Auto) [place] % (Auto) Eos % (Auto) Baso % (Auto) Lymph # (Auto) [place] # (Auto) Eos # (Auto) Baso # (Auto) Abs Immat Gran (auto) Absolute Neuts (auto) Absolute Nucleated RBC Nucleated RBC % (auto) Neutrophils % (Manual) Band Neutrophils % Lymphocytes % (Manual) Monocytes % (Manual) Metamyelocytes % Myelocytes % Promyelocytes % Abs Neuts (Manual) Lymphocytes # (Manual) Monocytes # (Manual) Metamyelocytes # Myelocytes # Promyelocytes # Nucleated RBCs Smudge Cells Toxic Vacuolation Platelet Estimate Large Platelets Plt Morphology Comment RBC Morphology Polychromasia Hypochromasia Tear Drop Cells Ovalocytes [place] Cells Schistocytes Smear Path Review PT INR aPTT Heparin Protocol 62.9 VBG pH VBG pCO2 VBG pO2 VBG HCO3 VBG O2 Saturation VBG Base Excess Sodium Potassium Chloride Carbon Dioxide Anion Gap BUN Creatinine Estim Creat Clear Calc Estimated GFR POC Glucose Random Glucose Calcium Phosphorus Magnesium Total Bilirubin AST ALT Alkaline Phosphatase Troponin I High Sens B-Natriuretic Peptide Total Protein Albumin Proteinase 3 (PR3) Ab Myeloperoxidase Ab Hep Bs Antigen Hep Bs Antibody Hep B Core Total Ab Microbiology Microbiology Results: Microbiology 08/14/24 07:23 Blood - Venous Blood Culture - Final No growth after 5 days. 08/14/24 07:23 Blood - Venous Blood Culture - Final No growth after 5 days. 08/13/24 08:03 Blood - Venous Blood Culture - Final No growth after 5 days. 08/13/24 08:03 Blood - Venous Blood Culture - Final No growth after 5 days. 08/14/24 Unknown Urine Catheterized - Gloria Catheter Urine Culture - Final No growth. Procedures Date of Service Date of Service: 08/19/24 Assessment & Plan Assessment and plan (1) Acute renal failure: Status: Acute (2) Acute and chronic respiratory failure: Status: Acute (3) Shock: Status: Acute Plan EUGENIO likely multifactorial tubular injury hypoperfusion from spesis and toxicity injury from vancomycin likely contributory- has been discontinued. HD last night due to anuria and increasing fiO2 requirements with positive response; will hold off additional HD today and reassess tomorrow patient appears euvolemic on clinical exam today no metabolic acidosis no concerning electrolyte abnormalities blood pressure supported with vasopressors patient is oliguric no tremors/myoclonus on exam no absolute indications for dialysis at this time Will continue to follow closely Discussed with Dr Watkins. Time Spent With Patient Time: Total time managing care of this patient today ____ minutes. Progress Note: Quality Stroke Does the patient have a stroke diagnosis?: No
--- NOTE | 2024-08-19 14:57 | MHC.CM.PN ---
Pt remains vented and on max vaso pressors: WBC elevated, HD cath placed and 2 liters removed: plan for the day: ease off sedation, echo to assess valve status (Hx of mitral and aortic replacements). D/C plans remain ongoing and will depend on pt's clinical progress.
[2024-08-19] MEDS: propofoL 1,000 MG/100 ML VIAL 14.47 MG IVCONT (15:25)
[2024-08-19] MEDS: Norepinephrine Bitartrate/D5W 8 MG/250 ML PLAST..BAG 44.29 MG IVCONT ×2 (17:10→22:38)
[2024-08-19 17:21] LABS: Glucose, Whole Blood 163 mg/dL (60-115)
[2024-08-19] MEDS: Warfarin Sodium 3 MG TABLET PO (17:28)
[2024-08-19] MEDS: propofoL 1,000 MG/100 ML VIAL 19.3 MG IVCONT (22:39)
[2024-08-19 23:37] LABS: Glucose, Whole Blood 279 mg/dL (60-115)
[2024-08-20] VITALS (42 sets, daily range): BP systolic 0–132; BP diastolic 0–83; PULSE 0–97; RESP 12–25; TEMP 34.6–38.3; O2SAT 88–95; BMI 36.1
[2024-08-20] MEDS: Vasopressin 20 UNIT/100 ML INFUS..BTL 12 UNIT IVCONT ×3 (00:12→16:14)
[2024-08-20] MEDS: Insulin Lispro 100 UNIT/ML 3 ML VIAL SUBCUT ×3 (00:13→12:17)
[2024-08-20] MEDS: Midazolam HCl/PF 2 MG/2 ML VIAL IVPUSH (00:32)
[2024-08-20] MEDS: fentaNYL citrate/NS 1,000 MCG/100 ML PLAST..BAG 10 MCG IVCONT ×2 (01:58→11:31)
[2024-08-20] MEDS: propofoL 1,000 MG/100 ML VIAL 19.3 MG IVCONT ×3 (02:00→11:30)
[2024-08-20] MEDS: Norepinephrine Bitartrate/D5W 8 MG/250 ML PLAST..BAG 44.29 MG IVCONT ×3 (04:31→15:20)
[2024-08-20 05:27] LABS: VBG Base Excess -2.3 mmol/L; VBG HCO3 21 mmol/L (22-26); VBG pCO2 34 mmHg; VBG pO2 54 mmHg
[2024-08-20 05:50] LABS: Venous Blood Gas Refer to POC result
[2024-08-20 05:53] LABS: Glucose, Whole Blood 190 mg/dL (60-115)
[2024-08-20] MEDS: Heparin Sodium,Porcine/1/2NS 25,000 UNIT/250 ML IV.SOLN 9.98 UNIT IVCONT (06:03)
[2024-08-20] MEDS: Levothyroxine Sodium 100 MCG/5 ML VIAL 12.5 MCG IVPUSH (06:04)
[2024-08-20] MEDS: Pantoprazole Sodium 40 MG/10 ML VIAL IVPUSH (06:04)
[2024-08-20 06:10] LABS: Hemoglobin 7.8 g/dl (12.0-16.0); INTERNATIONAL NORM RATIO 2.8 (0.9-1.1)
[2024-08-20 06:12] LABS: Hematocrit 23.3 % (37.0-47.0); Mean Corpuscular HGB Conc 33.5 g/dl (31.0-35.0); Mean Corpuscular Hemoglobin 28.8 pg (27.0-33.0); Mean Platelet Volume 13.8 fL (9.4-12.3); PLT CLUMP 1; Red Blood Count 2.71 X10*6/uL (4.20-5.50); Red Cell Distribution Width 17.7 % (11.0-16.0)
[2024-08-20 06:13] LABS: PTT Heparin Drip 84.5 SEC (53-77.9)
[2024-08-20 06:19] LABS: NRBC Pct Auto 9.3 /100WBC (0.0-0.2); PLT ABN DIST 1; WBC ABN SCTR FOR CBC 1
[2024-08-20 06:20] LABS: Platelet Count 218 X10*3/uL (160-400); White Blood Count 38.5 X10*3/uL (4.8-10.8)
[2024-08-20 06:37] LABS: Alanine Aminotransferase 569 U/L (0-31); Albumin Level 3.7 g/dL (3.5-5.0); Alkaline Phosphatase 142 U/L (39-117); Anion Gap 30 (12-20); Aspartate Amino Transferase 260 U/L (5-31); Bilirubin Total 3.1 mg/dL (0.0-1.0); Blood Urea Nitrogen 97 mg/dL (9-16); Calcium 8.6 mg/dL (8.4-10.2); Carbon Dioxide 20 mmol/L (22-29); Chloride 87 mmol/L (96-108); Creatinine Clr Calc Pharmacy 10.8; Estimated Glomerular Filt Rate 8; Glucose Random 196 mg/dL (60-115); Magnesium 2.4 mg/dL (1.6-2.6); Potassium 5.7 mmol/L (3.3-5.1); Sodium 131 mmol/L (135-145); Total Protein 7.2 g/dL (6.5-8.0)
[2024-08-20 07:29] LABS: Band Neutrophils Percent 28 % (3-5); Lymphocytes Absolute Manual 1.9 X10*3/uL (1.2-4.9); Lymphocytes Percent Manual 5 % (20-40); Metamyelocytes Absolute 2.7 X10*3/uL; Metamyelocytes Percent 7 %; Monocytes Absolute Manual 0.8 X10*3/uL (0.1-1.2); Monocytes Percent Manual 2 % (2-11); Myelocytes Absolute 0.8 X10*/uL; Myelocytes Percent 2 %; Neutrophils Absolute Manual 32.3 X10*3/uL (2.0-8.3); Neutrophils Percent Manual 56 % (45-73); Nucleated Red Blood Cells 17 /100WBC (0-0)
[2024-08-20 07:30] LABS: Basophilic Stippling 1+ (0-2) /OIF; Burr Cells 2+ (3-5) /OIF; Ovalocytes 1+ (5-14) /OIF; Polychromasia 1+ (0-2) /OIF; RBC Morphology NOTED; Schistocytes 1+ (0-2) /OIF; Smudge Cells PRESENT; Tear Drop Cells 2+ (3-5) /OIF; Toxic Vacuolation PRESENT
[2024-08-20 07:32] LABS: Platelet Estimate NORMAL (NORMAL)
[2024-08-20] MEDS: 0.9 % Sodium Chloride Flush 3 ML SYRINGE IVFLUSH ×2 (07:43→15:21)
[2024-08-20] MEDS: methylPREDNISolone Sod Succ 125 MG/2 ML VIAL 60 MG IVPUSH (07:59)
[2024-08-20] MEDS: Chlorhexidine Gluc Oral Rinse 15 ML MOUTHWASH BUCCAL ×2 (08:00→15:21)
[2024-08-20] MEDS: Meropenem 500 MG VIAL IVPUSH (08:14)
[2024-08-20] MEDS: Linezolid/D5W 600 MG/300 ML PIGGYBACK 300 MG IV (08:16)
--- NOTE | 2024-08-20 09:11 | PM.PNNEP ---
Subjective Subjective Date of Service: 08/20/24 Interval history: Pt is a 68 y/o female with a medical history of afib, HFpEF, aortic stenosis, s/p St Alex valve in 2005 on coumadin, s/p TAVR in 2021, hx amiodarine toxicity, ILD, COPD on 3L at home, pacemaker in place, SOHAIL (non on CPAP), DMII, dementia (preliminary dx per family). ED on 08/13 with dyspnea, fatigue, cough, hospitalized for treatment of hypoxic resp failure in setting of PNA/sepsis. transferred to ICU on 08/14 due to worsening respiratory status requiring intubation, vasopressor support. Nephrology consulted for EUGENIO creatinine trend: 08/14 0.75 08/15 2.17 08/16 3.05 08/17 4.51 08/18 5.19 08/18 6.11 08/19 3.26 08/20 5.23 vancomycin d/c'd. Had emergent HD on 08/19. a.m. Today anuric, potassium 5.7, has metabolic acidosis, phosphorous 8.0, creatinine up to 5.23 from 3.26 yesterday. No myoclonus on exam. Physical Exam Vital Signs: Vital Signs: Last Vital Signs Temp 99.2 F 08/20/24 09:00 Pulse 84 08/20/24 09:00 Resp 15 08/20/24 09:00 BP 121/47 L 08/20/24 09:00 Pulse Ox 93 08/20/24 09:00 O2 Del Method Mechanical Ventil ation 08/20/24 09:00 O2 Flow Rate 50 08/15/24 09:00 FiO2 65 08/20/24 09:00 BMI result Body Mass Index 36.1 Const: General: other (intubated/sedated) Resp: Effort & Inspection: normal respiratory effort (intubated) Auscultation: rhonchi Cardio: Rate: regular rate Rhythm: abnormal rhythm Heart sounds: S1 normal heart sound present and S2 normal heart sound present GI: Palpation (GI): Soft to palpation and nontender Skin: Rashes: rash noted Neuro: Other: no hyperreflexia to bilateral brachioradialis reflexes no myoclonus when holding patient's arm up General: other (sedated ) Extrem: General: Yes no pedal edema and No edema (no lower extremity edema ) Objective Data Labs 08/20/24 05:20 08/20/24 05:19 Labs: Laboratory Results - last 24 hr 08/14/24 08/19/24 08/19/24 14:52 07:01 09:11 WBC RBC Hgb Hct MCV MCH MCHC RDW Plt Count MPV Immature Gran % (Auto) Neut % (Auto) Lymph % (Auto) [place] % (Auto) Eos % (Auto) Baso % (Auto) Lymph # (Auto) [place] # (Auto) Eos # (Auto) Baso # (Auto) Abs Immat Gran (auto) Absolute Neuts (auto) Absolute Nucleated RBC Nucleated RBC % (auto) Neutrophils % (Manual) Band Neutrophils % Lymphocytes % (Manual) Monocytes % (Manual) Metamyelocytes % Myelocytes % Abs Neuts (Manual) Lymphocytes # (Manual) Monocytes # (Manual) Metamyelocytes # Myelocytes # Nucleated RBCs Smudge Cells Toxic Vacuolation Platelet Estimate Plt Morphology Comment RBC Morphology Polychromasia Basophilic Stippling Tear Drop Cells Ovalocytes [place] Cells Schistocytes Smear Path Review SEE NOTE PT INR aPTT Heparin Protocol VBG pH VBG pCO2 VBG pO2 VBG HCO3 VBG O2 Saturation VBG Base Excess Sodium Potassium Chloride Carbon Dioxide Anion Gap BUN Creatinine Estim Creat Clear Calc Estimated GFR POC Glucose Random Glucose Calcium Phosphorus Magnesium Total Bilirubin AST ALT Alkaline Phosphatase Total Protein Albumin Proteinase 3 (PR3) Ab <1.0 Myeloperoxidase Ab <1.0 Hep Bs Antigen Negative Hep Bs Antibody NONREACTIVE Hep B Core Total Ab Nonreactive 08/19/24 08/19/24 08/19/24 11:11 13:23 17:18 WBC RBC Hgb Hct MCV MCH MCHC RDW Plt Count MPV Immature Gran % (Auto) Neut % (Auto) Lymph % (Auto) [place] % (Auto) Eos % (Auto) Baso % (Auto) Lymph # (Auto) [place] # (Auto) Eos # (Auto) Baso # (Auto) Abs Immat Gran (auto) Absolute Neuts (auto) Absolute Nucleated RBC Nucleated RBC % (auto) Neutrophils % (Manual) Band Neutrophils % Lymphocytes % (Manual) Monocytes % (Manual) Metamyelocytes % Myelocytes % Abs Neuts (Manual) Lymphocytes # (Manual) Monocytes # (Manual) Metamyelocytes # Myelocytes # Nucleated RBCs Smudge Cells Toxic Vacuolation Platelet Estimate Plt Morphology Comment RBC Morphology Polychromasia Basophilic Stippling Tear Drop Cells Ovalocytes [place] Cells Schistocytes Smear Path Review PT INR aPTT Heparin Protocol 62.9 VBG pH VBG pCO2 VBG pO2 VBG HCO3 VBG O2 Saturation VBG Base Excess Sodium Potassium Chloride Carbon Dioxide Anion Gap BUN Creatinine Estim Creat Clear Calc Estimated GFR POC Glucose 189 H 163 H Random Glucose Calcium Phosphorus Magnesium Total Bilirubin AST ALT Alkaline Phosphatase Total Protein Albumin Proteinase 3 (PR3) Ab Myeloperoxidase Ab Hep Bs Antigen Hep Bs Antibody Hep B Core Total Ab 08/19/24 08/20/24 08/20/24 23:34 05:16 05:19 WBC RBC Hgb Hct MCV MCH MCHC RDW Plt Count MPV Immature Gran % (Auto) Neut % (Auto) Lymph % (Auto) [place] % (Auto) Eos % (Auto) Baso % (Auto) Lymph # (Auto) [place] # (Auto) Eos # (Auto) Baso # (Auto) Abs Immat Gran (auto) Absolute Neuts (auto) Absolute Nucleated RBC Nucleated RBC % (auto) Neutrophils % (Manual) Band Neutrophils % Lymphocytes % (Manual) Monocytes % (Manual) Metamyelocytes % Myelocytes % Abs Neuts (Manual) Lymphocytes # (Manual) Monocytes # (Manual) Metamyelocytes # Myelocytes # Nucleated RBCs Smudge Cells Toxic Vacuolation Platelet Estimate Plt Morphology Comment RBC Morphology Polychromasia Basophilic Stippling Tear Drop Cells Ovalocytes [place] Cells Schistocytes Smear Path Review PT INR aPTT Heparin Protocol VBG pH 7.40 VBG pCO2 34 VBG pO2 54 VBG HCO3 21 L VBG O2 Saturation 81.0 VBG Base Excess -2.3 Sodium 131 L Potassium 5.7 H D Chloride 87 L Carbon Dioxide 20 L Anion Gap 30 H BUN 97 H Creatinine 5.23 H* Estim Creat Clear Calc 10.8 Estimated GFR 8 POC Glucose 279 H Random Glucose 196 H Calcium 8.6 D Phosphorus 8.0 H Magnesium 2.4 Total Bilirubin 3.1 H AST 260 H ALT 569 H Alkaline Phosphatase 142 H Total Protein 7.2 Albumin 3.7 Proteinase 3 (PR3) Ab Myeloperoxidase Ab Hep Bs Antigen Hep Bs Antibody Hep B Core Total Ab 08/20/24 08/20/24 05:20 05:48 WBC 38.5 H* RBC 2.71 L D Hgb 7.8 L D Hct 23.3 L D MCV 86.0 MCH 28.8 MCHC 33.5 RDW 17.7 H Plt Count 218 D MPV 13.8 H Immature Gran % (Auto) Cancelled Neut % (Auto) Cancelled Lymph % (Auto) Cancelled [place] % (Auto) Cancelled Eos % (Auto) Cancelled Baso % (Auto) Cancelled Lymph # (Auto) Cancelled [place] # (Auto) Cancelled Eos # (Auto) Cancelled Baso # (Auto) Cancelled Abs Immat Gran (auto) Cancelled Absolute Neuts (auto) Cancelled Absolute Nucleated RBC 3.560 H Nucleated RBC % (auto) 9.3 H Neutrophils % (Manual) 56 Band Neutrophils % 28 H Lymphocytes % (Manual) 5 L Monocytes % (Manual) 2 Metamyelocytes % 7 Myelocytes % 2 Abs Neuts (Manual) 32.3 H Lymphocytes # (Manual) 1.9 Monocytes # (Manual) 0.8 Metamyelocytes # 2.7 Myelocytes # 0.8 Nucleated RBCs 17 H Smudge Cells PRESENT Toxic Vacuolation PRESENT Platelet Estimate NORMAL Plt Morphology Comment Not Reportable RBC Morphology NOTED Polychromasia 1+ (0-2) Basophilic Stippling 1+ (0-2) Tear Drop Cells 2+ (3-5) Ovalocytes 1+ (5-14) [place] Cells 2+ (3-5) Schistocytes 1+ (0-2) Smear Path Review PT 33.0 H D INR 2.8 H aPTT Heparin Protocol 84.5 H D VBG pH VBG pCO2 VBG pO2 VBG HCO3 VBG O2 Saturation VBG Base Excess Sodium Potassium Chloride Carbon Dioxide Anion Gap BUN Creatinine Estim Creat Clear Calc Estimated GFR POC Glucose 190 H Random Glucose Calcium Phosphorus Magnesium Total Bilirubin AST ALT Alkaline Phosphatase Total Protein Albumin Proteinase 3 (PR3) Ab Myeloperoxidase Ab Hep Bs Antigen Hep Bs Antibody Hep B Core Total Ab Microbiology Microbiology Results: Microbiology 08/14/24 07:23 Blood - Venous Blood Culture - Final No growth after 5 days. 08/14/24 07:23 Blood - Venous Blood Culture - Final No growth after 5 days. 08/13/24 08:03 Blood - Venous Blood Culture - Final No growth after 5 days. 08/13/24 08:03 Blood - Venous Blood Culture - Final No growth after 5 days. 08/14/24 Unknown Urine Catheterized - Gloria Catheter Urine Culture - Final No growth. Procedures Date of Service Date of Service: 08/20/24 Assessment & Plan Assessment and plan (1) Acute renal failure: Status: Acute (2) Acute and chronic respiratory failure: Status: Acute (3) Shock: Status: Acute Plan EUGENIO likely multifactorial tubular injury hypoperfusion from sepsis and toxicity injury from vancomycin likely contributory- has been discontinued. patient appears euvolemic on clinical exam today +metabolic acidosis potassium elevated 5.7 blood pressure continues to be supported with vasopressors patient is anuric no tremors/myoclonus on exam based on potassium, acidosis and anuria, will dialyze today. Will continue to follow closely Discussed with Dr Watkins. Time Spent With Patient Time: Total time managing care of this patient today ____ minutes. Progress Note: Quality Stroke Does the patient have a stroke diagnosis?: No
--- NOTE | 2024-08-20 09:47 | MHC.CLN ---
F/U PT REMAINS INTUBATED AND SEDATED REVIEWED LABS PT RECEIVING NEPRO AT MAX GOAL RATE 20ML/HR PROVIDES 864KCALS (1374KCALS WITH SEDATION; 23KCALS/KG), 39G PROTEIN, 349ML FREE WATER FROM FORMULA CONTINUE TO MONITOR TOLERANCE AND LYTES
--- NOTE | 2024-08-20 09:52 | PM.CCPN ---
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 Treated with high-dose systemic glucocorticoids, empiric antibiotics, and diuresis with hospital course further complicated by acute renal failure requiring initiation hemodialysis overnight secondary to hyperkalemia, metabolic acidosis, and worsening FiO2 requirements. Now with improvement in oxygen requirements, but with acute renal failure requiring hemodialysis support, congestive heart failure, and significant leukocytosis (improving). No events overnight. Critical Care Time (minutes): 60 Physical Exam Vital Signs: Vital Signs: Last Vital Signs Temp 99.2 F 08/20/24 09:00 Pulse 84 08/20/24 09:00 Resp 15 08/20/24 09:00 BP 121/47 L 08/20/24 09:00 Pulse Ox 93 08/20/24 09:00 O2 Del Method Mechanical Ventil ation 08/20/24 09:00 O2 Flow Rate 50 08/15/24 09:00 FiO2 65 08/20/24 09:00 BMI result Body Mass Index 36.1 Const: General: no acute distress and other (Sedated on ventilatory support) Eyes: Sclerae: sclerae normal EOM: EOMs intact bilaterally Neck: Neck: Yes no lymphadenopathy, Yes trachea midline and Yes supple Resp: Effort & Inspection: normal respiratory effort and no respiratory distress Auscultation: crackles (Bilateral) Cardio: Rate: regular rate Rhythm: regular rhythm Heart sounds: no gallops, no murmurs and no rubs GI: Palpation (GI): Soft to palpation and Other GI palpation findings present ( Nontender) Auscultation: normal bowel sounds Extrem: General: No clubbing, No cyanosis and Yes edema (1+ bilateral) Objective Data Labs 08/20/24 05:20 08/20/24 05:19 Labs: Laboratory Results - last 24 hr 08/14/24 08/19/24 08/19/24 14:52 09:11 11:11 WBC RBC Hgb Hct MCV MCH MCHC RDW Plt Count MPV Immature Gran % (Auto) Neut % (Auto) Lymph % (Auto) [place] % (Auto) Eos % (Auto) Baso % (Auto) Lymph # (Auto) [place] # (Auto) Eos # (Auto) Baso # (Auto) Abs Immat Gran (auto) Absolute Neuts (auto) Absolute Nucleated RBC Nucleated RBC % (auto) Neutrophils % (Manual) Band Neutrophils % Lymphocytes % (Manual) Monocytes % (Manual) Metamyelocytes % Myelocytes % Abs Neuts (Manual) Lymphocytes # (Manual) Monocytes # (Manual) Metamyelocytes # Myelocytes # Nucleated RBCs Smudge Cells Toxic Vacuolation Platelet Estimate Plt Morphology Comment RBC Morphology Polychromasia Basophilic Stippling Tear Drop Cells Ovalocytes [place] Cells Schistocytes PT INR aPTT Heparin Protocol VBG pH VBG pCO2 VBG pO2 VBG HCO3 VBG O2 Saturation VBG Base Excess Sodium Potassium Chloride Carbon Dioxide Anion Gap BUN Creatinine Estim Creat Clear Calc Estimated GFR POC Glucose 189 H Random Glucose Calcium Phosphorus Magnesium Total Bilirubin AST ALT Alkaline Phosphatase Total Protein Albumin Proteinase 3 (PR3) Ab <1.0 Myeloperoxidase Ab <1.0 Hep Bs Antigen Negative Hep Bs Antibody NONREACTIVE Hep B Core Total Ab Nonreactive 08/19/24 08/19/24 08/19/24 13:23 17:18 23:34 WBC RBC Hgb Hct MCV MCH MCHC RDW Plt Count MPV Immature Gran % (Auto) Neut % (Auto) Lymph % (Auto) [place] % (Auto) Eos % (Auto) Baso % (Auto) Lymph # (Auto) [place] # (Auto) Eos # (Auto) Baso # (Auto) Abs Immat Gran (auto) Absolute Neuts (auto) Absolute Nucleated RBC Nucleated RBC % (auto) Neutrophils % (Manual) Band Neutrophils % Lymphocytes % (Manual) Monocytes % (Manual) Metamyelocytes % Myelocytes % Abs Neuts (Manual) Lymphocytes # (Manual) Monocytes # (Manual) Metamyelocytes # Myelocytes # Nucleated RBCs Smudge Cells Toxic Vacuolation Platelet Estimate Plt Morphology Comment RBC Morphology Polychromasia Basophilic Stippling Tear Drop Cells Ovalocytes [place] Cells Schistocytes PT INR aPTT Heparin Protocol 62.9 VBG pH VBG pCO2 VBG pO2 VBG HCO3 VBG O2 Saturation VBG Base Excess Sodium Potassium Chloride Carbon Dioxide Anion Gap BUN Creatinine Estim Creat Clear Calc Estimated GFR POC Glucose 163 H 279 H Random Glucose Calcium Phosphorus Magnesium Total Bilirubin AST ALT Alkaline Phosphatase Total Protein Albumin Proteinase 3 (PR3) Ab Myeloperoxidase Ab Hep Bs Antigen Hep Bs Antibody Hep B Core Total Ab 08/20/24 08/20/24 08/20/24 05:16 05:19 05:20 WBC 38.5 H* RBC 2.71 L D Hgb 7.8 L D Hct 23.3 L D MCV 86.0 MCH 28.8 MCHC 33.5 RDW 17.7 H Plt Count 218 D MPV 13.8 H Immature Gran % (Auto) Cancelled Neut % (Auto) Cancelled Lymph % (Auto) Cancelled [place] % (Auto) Cancelled Eos % (Auto) Cancelled Baso % (Auto) Cancelled Lymph # (Auto) Cancelled [place] # (Auto) Cancelled Eos # (Auto) Cancelled Baso # (Auto) Cancelled Abs Immat Gran (auto) Cancelled Absolute Neuts (auto) Cancelled Absolute Nucleated RBC 3.560 H Nucleated RBC % (auto) 9.3 H Neutrophils % (Manual) 56 Band Neutrophils % 28 H Lymphocytes % (Manual) 5 L Monocytes % (Manual) 2 Metamyelocytes % 7 Myelocytes % 2 Abs Neuts (Manual) 32.3 H Lymphocytes # (Manual) 1.9 Monocytes # (Manual) 0.8 Metamyelocytes # 2.7 Myelocytes # 0.8 Nucleated RBCs 17 H Smudge Cells PRESENT Toxic Vacuolation PRESENT Platelet Estimate NORMAL Plt Morphology Comment Not Reportable RBC Morphology NOTED Polychromasia 1+ (0-2) Basophilic Stippling 1+ (0-2) Tear Drop Cells 2+ (3-5) Ovalocytes 1+ (5-14) [place] Cells 2+ (3-5) Schistocytes 1+ (0-2) PT 33.0 H D INR 2.8 H aPTT Heparin Protocol 84.5 H D VBG pH 7.40 VBG pCO2 34 VBG pO2 54 VBG HCO3 21 L VBG O2 Saturation 81.0 VBG Base Excess -2.3 Sodium 131 L Potassium 5.7 H D Chloride 87 L Carbon Dioxide 20 L Anion Gap 30 H BUN 97 H Creatinine 5.23 H* Estim Creat Clear Calc 10.8 Estimated GFR 8 POC Glucose Random Glucose 196 H Calcium 8.6 D Phosphorus 8.0 H Magnesium 2.4 Total Bilirubin 3.1 H AST 260 H ALT 569 H Alkaline Phosphatase 142 H Total Protein 7.2 Albumin 3.7 Proteinase 3 (PR3) Ab Myeloperoxidase Ab Hep Bs Antigen Hep Bs Antibody Hep B Core Total Ab 08/20/24 05:48 WBC RBC Hgb Hct MCV MCH MCHC RDW Plt Count MPV Immature Gran % (Auto) Neut % (Auto) Lymph % (Auto) [place] % (Auto) Eos % (Auto) Baso % (Auto) Lymph # (Auto) [place] # (Auto) Eos # (Auto) Baso # (Auto) Abs Immat Gran (auto) Absolute Neuts (auto) Absolute Nucleated RBC Nucleated RBC % (auto) Neutrophils % (Manual) Band Neutrophils % Lymphocytes % (Manual) Monocytes % (Manual) Metamyelocytes % Myelocytes % Abs Neuts (Manual) Lymphocytes # (Manual) Monocytes # (Manual) Metamyelocytes # Myelocytes # Nucleated RBCs Smudge Cells Toxic Vacuolation Platelet Estimate Plt Morphology Comment RBC Morphology Polychromasia Basophilic Stippling Tear Drop Cells Ovalocytes [place] Cells Schistocytes PT INR aPTT Heparin Protocol VBG pH VBG pCO2 VBG pO2 VBG HCO3 VBG O2 Saturation VBG Base Excess Sodium Potassium Chloride Carbon Dioxide Anion Gap BUN Creatinine Estim Creat Clear Calc Estimated GFR POC Glucose 190 H Random Glucose Calcium Phosphorus Magnesium Total Bilirubin AST ALT Alkaline Phosphatase Total Protein Albumin Proteinase 3 (PR3) Ab Myeloperoxidase Ab Hep Bs Antigen Hep Bs Antibody Hep B Core Total Ab Microbiology Microbiology Results: Microbiology 08/14/24 07:23 Blood - Venous Blood Culture - Final No growth after 5 days. 08/14/24 07:23 Blood - Venous Blood Culture - Final No growth after 5 days. 08/13/24 08:03 Blood - Venous Blood Culture - Final No growth after 5 days. 08/13/24 08:03 Blood - Venous Blood Culture - Final No growth after 5 days. 08/14/24 Unknown Urine Catheterized - Gloria Catheter Urine Culture - Final No growth. Progress Note: A&P Assessment and plan (1) Acute renal failure: Status: Acute (2) Hepatic congestion: Status: Acute (3) Shock: Status: Acute (4) Abnormal CT scan, chest: Status: Acute (5) PAF (paroxysmal atrial fibrillation): Status: Acute (6) Acute hypoxic respiratory failure: Status: Acute Plan Assessment: 68-year-old lady admitted on 08/13/2024 with acute hypoxic respiratory failure with likely inflammatory etiology, now requiring ventilatory support. Plan: Neuro: Steroid induced encephalopathy secondary to high-dose systemic glucocorticoids, expect to improve with steroid taper. Also, likely uremic encephalopathy secondary to acute renal failure. Cardiac: Shock, undifferentiated. Continue to titrate off pressor support as tolerated. Pulmonary: Acute hypoxic respiratory failure, likely inflammatory in origin. Continue glucocorticoids taper. CT chest with dense infiltrates, not in peribronchovascular distribution, more consistent with edema. Continue to titrate off ventilatory support as tolerated. Renal: EUGENIO, secondary to shock. Anuric. Nephrology service care appreciated. Started on hemodialysis support. Endo: No acute issues. GI: Passive hepatic congestion likely secondary to congestive heart failure, improving. ID: Possible pneumonia, continue empiric broad-spectrum antibiotics. Cultures negative to date. Continue meropenem/linezolid and caspofungin. Leukocytosis is improving. Heme/Onc: Underlying mechanical MVR - Coumadin with INR goal of 2.5-3.5. Psych: No acute issues. Miscellaneous: No acute issues. Prophylaxis: Coumadin level therapeutic, ppi Diet: Tube feeds Critical care time spent: 60 minutes Quality Stroke Does the patient have a stroke diagnosis?: No VTE Prior VTE?: No VTE Risk Level:: Medical - moderate - high VTE Device Contraindication: N/A - Device Ordered VTE Drug Contraindication: N/A - Med Ordered
[2024-08-20] MEDS: Caspofungin Acetate 50 MG in 0.9 % Sodium Chloride 250 ML 250 MG IV (10:09)
--- NOTE | 2024-08-20 10:32 | P.PNCA_ITS ---
Subjective Subjective Date of Service: 08/20/24 Interval history: Seen and examined at bedside. Discussion done with daughter Raul. Continues to be on pressor support. Intubated. Echocardiography has not shown any significant prosthetic mitral valve issue. Gradients are stable. Relatively high gradient across the aortic valve but LV is hyperdynamic. Right ventricular is moderately dysfunctional. Severe pulmonary hypertension. Physical Exam Vital Signs: Last Vital Signs Temp 99.2 F 08/20/24 09:00 Pulse 83 08/20/24 09:57 Resp 15 08/20/24 09:00 BP 127/61 08/20/24 09:57 Pulse Ox 93 08/20/24 09:00 O2 Del Method Mechanical Ventilation 08/20/24 09:00 O2 Flow Rate 50 08/15/24 09:00 FiO2 65 08/20/24 09:00 BMI result Body Mass Index 36.1 GENERAL APPEARANCE: Sedated and intubated. NECK: + JVD SKIN: no suspicious lesions, warm and dry. HEART: no murmurs, regular rate and rhythm. Mechanical first heart sound. LUNGS: Clear to auscultation. ABDOMEN: soft. EXTREMITIES: no edema. PERIPHERAL PULSES: equal. NEUROLOGIC: Sedated and intubated. Objective Labs and Meds 08/20/24 05:20 08/20/24 05:19 Lab results: Laboratory Results - last 24 hr 08/14/24 08/19/24 08/19/24 14:52 09:11 11:11 WBC RBC Hgb Hct MCV MCH MCHC RDW Plt Count MPV Immature Gran % (Auto) Neut % (Auto) Lymph % (Auto) [place] % (Auto) Eos % (Auto) Baso % (Auto) Lymph # (Auto) [place] # (Auto) Eos # (Auto) Baso # (Auto) Abs Immat Gran (auto) Absolute Neuts (auto) Absolute Nucleated RBC Nucleated RBC % (auto) Neutrophils % (Manual) Band Neutrophils % Lymphocytes % (Manual) Monocytes % (Manual) Metamyelocytes % Myelocytes % Abs Neuts (Manual) Lymphocytes # (Manual) Monocytes # (Manual) Metamyelocytes # Myelocytes # Nucleated RBCs Smudge Cells Toxic Vacuolation Platelet Estimate Plt Morphology Comment RBC Morphology Polychromasia Basophilic Stippling Tear Drop Cells Ovalocytes [place] Cells Schistocytes PT INR aPTT Heparin Protocol VBG pH VBG pCO2 VBG pO2 VBG HCO3 VBG O2 Saturation VBG Base Excess Sodium Potassium Chloride Carbon Dioxide Anion Gap BUN Creatinine Estim Creat Clear Calc Estimated GFR POC Glucose 189 H Random Glucose Calcium Phosphorus Magnesium Total Bilirubin AST ALT Alkaline Phosphatase Total Protein Albumin Proteinase 3 (PR3) Ab <1.0 Myeloperoxidase Ab <1.0 Hep Bs Antigen Negative Hep Bs Antibody NONREACTIVE Hep B Core Total Ab Nonreactive 08/19/24 08/19/24 08/19/24 13:23 17:18 23:34 WBC RBC Hgb Hct MCV MCH MCHC RDW Plt Count MPV Immature Gran % (Auto) Neut % (Auto) Lymph % (Auto) [place] % (Auto) Eos % (Auto) Baso % (Auto) Lymph # (Auto) [place] # (Auto) Eos # (Auto) Baso # (Auto) Abs Immat Gran (auto) Absolute Neuts (auto) Absolute Nucleated RBC Nucleated RBC % (auto) Neutrophils % (Manual) Band Neutrophils % Lymphocytes % (Manual) Monocytes % (Manual) Metamyelocytes % Myelocytes % Abs Neuts (Manual) Lymphocytes # (Manual) Monocytes # (Manual) Metamyelocytes # Myelocytes # Nucleated RBCs Smudge Cells Toxic Vacuolation Platelet Estimate Plt Morphology Comment RBC Morphology Polychromasia Basophilic Stippling Tear Drop Cells Ovalocytes [place] Cells Schistocytes PT INR aPTT Heparin Protocol 62.9 VBG pH VBG pCO2 VBG pO2 VBG HCO3 VBG O2 Saturation VBG Base Excess Sodium Potassium Chloride Carbon Dioxide Anion Gap BUN Creatinine Estim Creat Clear Calc Estimated GFR POC Glucose 163 H 279 H Random Glucose Calcium Phosphorus Magnesium Total Bilirubin AST ALT Alkaline Phosphatase Total Protein Albumin Proteinase 3 (PR3) Ab Myeloperoxidase Ab Hep Bs Antigen Hep Bs Antibody Hep B Core Total Ab 08/20/24 08/20/24 08/20/24 05:16 05:19 05:20 WBC 38.5 H* RBC 2.71 L D Hgb 7.8 L D Hct 23.3 L D MCV 86.0 MCH 28.8 MCHC 33.5 RDW 17.7 H Plt Count 218 D MPV 13.8 H Immature Gran % (Auto) Cancelled Neut % (Auto) Cancelled Lymph % (Auto) Cancelled [place] % (Auto) Cancelled Eos % (Auto) Cancelled Baso % (Auto) Cancelled Lymph # (Auto) Cancelled [place] # (Auto) Cancelled Eos # (Auto) Cancelled Baso # (Auto) Cancelled Abs Immat Gran (auto) Cancelled Absolute Neuts (auto) Cancelled Absolute Nucleated RBC 3.560 H Nucleated RBC % (auto) 9.3 H Neutrophils % (Manual) 56 Band Neutrophils % 28 H Lymphocytes % (Manual) 5 L Monocytes % (Manual) 2 Metamyelocytes % 7 Myelocytes % 2 Abs Neuts (Manual) 32.3 H Lymphocytes # (Manual) 1.9 Monocytes # (Manual) 0.8 Metamyelocytes # 2.7 Myelocytes # 0.8 Nucleated RBCs 17 H Smudge Cells PRESENT Toxic Vacuolation PRESENT Platelet Estimate NORMAL Plt Morphology Comment Not Reportable RBC Morphology NOTED Polychromasia 1+ (0-2) Basophilic Stippling 1+ (0-2) Tear Drop Cells 2+ (3-5) Ovalocytes 1+ (5-14) [place] Cells 2+ (3-5) Schistocytes 1+ (0-2) PT 33.0 H D INR 2.8 H aPTT Heparin Protocol 84.5 H D VBG pH 7.40 VBG pCO2 34 VBG pO2 54 VBG HCO3 21 L VBG O2 Saturation 81.0 VBG Base Excess -2.3 Sodium 131 L Potassium 5.7 H D Chloride 87 L Carbon Dioxide 20 L Anion Gap 30 H BUN 97 H Creatinine 5.23 H* Estim Creat Clear Calc 10.8 Estimated GFR 8 POC Glucose Random Glucose 196 H Calcium 8.6 D Phosphorus 8.0 H Magnesium 2.4 Total Bilirubin 3.1 H AST 260 H ALT 569 H Alkaline Phosphatase 142 H Total Protein 7.2 Albumin 3.7 Proteinase 3 (PR3) Ab Myeloperoxidase Ab Hep Bs Antigen Hep Bs Antibody Hep B Core Total Ab 08/20/24 05:48 WBC RBC Hgb Hct MCV MCH MCHC RDW Plt Count MPV Immature Gran % (Auto) Neut % (Auto) Lymph % (Auto) [place] % (Auto) Eos % (Auto) Baso % (Auto) Lymph # (Auto) [place] # (Auto) Eos # (Auto) Baso # (Auto) Abs Immat Gran (auto) Absolute Neuts (auto) Absolute Nucleated RBC Nucleated RBC % (auto) Neutrophils % (Manual) Band Neutrophils % Lymphocytes % (Manual) Monocytes % (Manual) Metamyelocytes % Myelocytes % Abs Neuts (Manual) Lymphocytes # (Manual) Monocytes # (Manual) Metamyelocytes # Myelocytes # Nucleated RBCs Smudge Cells Toxic Vacuolation Platelet Estimate Plt Morphology Comment RBC Morphology Polychromasia Basophilic Stippling Tear Drop Cells Ovalocytes [place] Cells Schistocytes PT INR aPTT Heparin Protocol VBG pH VBG pCO2 VBG pO2 VBG HCO3 VBG O2 Saturation VBG Base Excess Sodium Potassium Chloride Carbon Dioxide Anion Gap BUN Creatinine Estim Creat Clear Calc Estimated GFR POC Glucose 190 H Random Glucose Calcium Phosphorus Magnesium Total Bilirubin AST ALT Alkaline Phosphatase Total Protein Albumin Proteinase 3 (PR3) Ab Myeloperoxidase Ab Hep Bs Antigen Hep Bs Antibody Hep B Core Total Ab Imaging Radiologist's impression: Impressions Chest X-Ray 08/19/24 03:10 IMPRESSION: 1. Endotracheal tube terminates 3.1 cm above the kain. 2. Right internal jugular central venous catheter with tip overlying the upper superior vena cava. 3. Persistent fluffy airspace opacification throughout the lung moura suggestive of pulmonary edema in the setting of volume overload. 4. No new dense focal consolidative process. Electronically signed by: Layton Parker DO 08/19/2024 08:06 PM EDT Progress Note: A&P Assessment and plan (1) Right ventricular dysfunction: Status: Acute (2) Acute renal failure: Status: Acute (3) Shock: Status: Acute Plan 68 year female with complex medical issues including previous mitral valve replacement with mechanical valve on Coumadin, transcatheter aortic valve replacement and paroxysmal atrial fibrillation. Recent but sensitivity reaction to Ozempic versus amiodarone. Presented with worsening shortness of breath with progressive worsening and got intubated. Developed acute kidney injury and has been anuric at this stage and requiring hemodialysis. On vasopressors. On broad-spectrum antibiotics and still has been getting fevers. Overall process appears to be distributive shock. With RV dysfunction and acute renal failure, she is requiring hemodialysis and she will be dialyzed today. Volume removal may help the right ventricular function. Detailed discussion with the daughter at bedside that Nubia has multiorgan involvement currently and is quite sick. Prognosis is guarded. We will follow along with you. Thank you for allowing me to participate in the care of your patient. Please feel free to contact me if you have any questions. Time Spent With Patient Time: Total time managing care of this patient today ____ minutes. Progress Note: Quality Stroke Does the patient have a stroke diagnosis?: No Procedures Date of Service Date of Service: 08/20/24
[2024-08-20 12:05] LABS: Glucose, Whole Blood 212 mg/dL (60-115)
[2024-08-20 18:12] LABS: Glucose, Whole Blood 160 mg/dL (60-115)
[2024-08-20] MEDS: Magnesium Sulfate/H2O 2 GM/50 ML PIGGYBACK IV (18:20)
[2024-08-20] MEDS: Calcium Chloride 1 GM/10 ML SYRINGE IVPUSH (18:21)
[2024-08-20] MEDS: Sodium Bicarbonate 8.4% 50 MEQ/50 ML SYRINGE IVPUSH (18:22)
--- NOTE | 2024-08-20 18:22 | ECG_ITS ---
Test Reason : CODE Blood Pressure : / mmHG Vent. Rate : 125 BPM Atrial Rate : 125 BPM P-R Int : 048 ms QRS Dur : 094 ms QT Int : 428 ms P-R-T Axes : 000 124 029 degrees QTc Int : 617 ms WIde complex tachycardia Right axis deviation Right ventricular hypertrophy with repolarization abnormality ST elevation consider anterolateral injury or acute infarct ST elevation consider inferior injury or acute infarct Abnormal ECG When compared to the previous EKG of Wide complex tachycardia present Referred By: Nguyễn Howard Electronically Signed By:López Lion
[2024-08-20] MEDS: Amiodarone/Dextrose 150 MG/100 ML PLAST..BAG 600 MG IV (18:25)
--- NOTE | 2024-08-20 18:25 | ECG_ITS ---
Test Reason : CODE Blood Pressure : / mmHG Vent. Rate : 118 BPM Atrial Rate : 141 BPM P-R Int : 246 ms QRS Dur : 132 ms QT Int : 420 ms P-R-T Axes : 082 077 -23 degrees QTc Int : 588 ms Afib with RVR Right bundle branch block T wave abnormality, consider inferior ischemia Abnormal ECG When compared to the previous EKG of Afib present. Referred By: Nguyễn Howard Electronically Signed By:López Lion
--- NOTE | 2024-08-20 18:30 | ECG_ITS ---
Test Reason : CODE Blood Pressure : / mmHG Vent. Rate : 098 BPM Atrial Rate : 104 BPM P-R Int : 000 ms QRS Dur : 150 ms QT Int : 446 ms P-R-T Axes : 000 080 -21 degrees QTc Int : 569 ms Atrial fibrillaton Right bundle branch block Rightward axis Abnormal ECG When compared to the previous EKG of No significant changes seen Referred By: Nguyễn Howard Electronically Signed By:López Lion
[2024-08-20] MEDS: Amiodarone HCL 900 MG in 0.9 % Sodium Chloride 500 ML 34.53 MG IVCONT (18:36)
--- NOTE | 2024-08-20 18:43 | P.EN_ITS ---
Event Note Date of Service: 08/20/24 Event Note: GRINDING ROOM INSPECTOR called for VT with pulse. Pt given 2g magnesium sulfate and loaded with amiodarone then started on drip. Discussed with Dr Flores by phone. Time Spent With Patient Time: Total time managing care of this patient today ____ minutes.
[2024-08-20 19:33] LABS: Anion Gap 30 (12-20); Blood Urea Nitrogen 55 mg/dL (9-16); Calcium 10.8 mg/dL (8.4-10.2); Carbon Dioxide 14 mmol/L (22-29); Chloride 92 mmol/L (96-108); Creatinine Clr Calc Pharmacy 16.2; Estimated Glomerular Filt Rate 13; Glucose Random 293 mg/dL (60-115); Magnesium 3.5 mg/dL (1.6-2.6); Sodium 130 mmol/L (135-145)
[2024-08-20 20:10] LABS: Anti Glomerular Basement Memb <1.0 AI
--- NOTE | 2024-08-20 20:24 | PM.CCN ---
Critical Care Event Note Summary Date of Service: 08/20/24 Code activated: Yes Narrative: This case had a high probability of a clinically significant, sudden, or life threatening deterioration of this patient's condition which required my full and direct attention, intervention and personal management. Critical Care Time (minutes): 60 Comment: ?At around 18:20? patient noted to be in V-tach with a pulse,? rapid response was called,? patient was loaded with amiodarone 150, and drip was initiated.? She also received 2 g of Mag,? calcium chloride 1g,? and an amp of bicarb.? Patient went back into sinus rhythm But around 1905,? patient?s rhythm noted? bradycardic,? subsequently rhythm changed to PEA.? CPR was initiated, ? ACLS protocol was followed.? Daughter, Raul Clark, was at bedside.? ROSC, was achieved after 2 rounds of CPR, but shortly after the patient cardiac arrest again. Approximately 27 min of CPR, 9 doses of epi, 2 shocks for VFIB rhythm, patient continued to be pulseless,? during the code I personally spoke with daughter Raul,? who did not wish to continue CPR further.? CPR was stopped 1932. Please see code sheet for all medication details? On my assessment, the patient had absent peripheral pulses.? Pupils fixed and dilated.? Absent heart sounds? and no spontaneous breathing. ? Official time of 1932. Not a medical exam candidate.? Organ donation was notified by nursing.? Attending Dr Flores notified?
--- NOTE | 2024-08-20 20:25 | PC.NURSE ---
This RN called [facility] at 2019 and spoke with Addie. Per Addie, [facility] is declining the patient. Case #[id number]
--- NOTE | 2024-08-20 20:31 | PC.NURSE ---
at 1518 sedation vacation initiated. At 1540, vent settings adjusted by RT per MD to PSV with decreasing pressure support and peep. Sedation decreased per DEC. Pt appeared to be tolerating adjustments well. At 181, pt's rhythm changed to VT with pulse. TECHNICAL LEAD called. Demarco Feliciano and Arthur at bedside. Dr Flores contacted by phone. Medications given per DEC. Pt converted to sinus shortly after 1835. AT 190, pt was again in VT. Code called. Please see code sheet for details.
[2024-08-20 20:46] LABS: Troponin-I High Sensitivity 580.4 ng/L (<3.5-17.0)
--- NOTE | 2024-08-23 10:30 | P.DN_ITS ---
Discharge Sum: Prov Provider Primary care physician: Daniela Chopra MD Consults: 08/13/24 13:35 Consult to Cardiology Routine Consulting Provider: [facility] Reason for consultation: Elevated digoxin levels, ST depressions on EKG 08/13/24 16:41 Consult to Pulmonology Routine Consulting Provider: [facility] Reason for consultation: Pt with extensive ILD, treating for pneumonia w/sepsis 08/18/24 10:04 Consult to Nephrology Routine Consulting Provider: [facility] Reason for consultation: Acute kidney injury Has provider been notified: No Discharge Sum: Diag Contributing Factors (1) Ventricular tachycardia: (2) Acute renal failure: (3) Shock: (4) Acute hypoxic respiratory failure: (5) Abnormal CT scan, chest: Discharge Sum: Summary Date and Time Date of admission: 08/13/24 13:29 Date of : 08/20/24 Time of : 19:33 Summary Details: 68-year-old lady with underlying paroxysmal AFib, diastolic heart failure, mechanical MVR and status post TAVR on anticoagulation, 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 Treated with high-dose systemic glucocorticoids, empiric antibiotics, and diuresis with hospital course further complicated by acute renal failure requiring initiation hemodialysis on 08/18 secondary to hyperkalemia, metabolic acidosis, and worsening FiO2 requirements. Secondary to worsening leukocytosis versus leukemoid reaction broad-spectrum antibiotics switch to meropenem and linezolid with improvement leukocytosis, slight improvement FiO2 requirements with patient starting tolerate pressure support trials. Unfortunately, on 08/20/2027 around 18:40 patient developed an episode of perfusing polymorphic ventricular tachycardia with normal blood pressure that responded well to magnesium and amiodarone initially, however at approximately 19:06 patient had another episode of ventricular tachycardia deteriorating to bradycardia and subsequently pulseless electrical activity. CPR was started immediately and initial returned spontaneous circulation was achieved after 2 rounds of CPR, unfortunately patient went back almost immediately into cardiac arrest and CPR was resumed. Patient's daughter/healthcare proxy was present at that time well after approximately total of 27 minutes of CPR requested cessation of further CPR efforts. Official time of 19:33. Additional Data Attending physician: Reji Flores MD
== END 2024-08-20 19:33 | disposition expired | DRG 870 ==
LOC: HO.ED 11:48 → HO.EDOVER 13:37 → HO.IMC 14:52 → HO.ICU 08-14 04:06
PROVIDERS: Internal Medicine Critical Care Medicine; Internal Medicine Hypertension Specialist; Nurse Practitioner Family; Registered Nurse Community Health; Student in an Organized Health Care Education/Training Program; Admitting Provider Student in an Organized Health Care Education/Training Program; Emergency Provider Emergency Medicine; PCP Internal Medicine; Visit Provider Internal Medicine Pulmonary Disease
DX: A41.9 Sepsis, unspecified organism (principal); G92.8 Other toxic encephalopathy; J18.9 Pneumonia, unspecified organism; J96.21 Acute and chronic respiratory failure with hypoxia; I50.33 Acute on chronic diastolic (congestive) heart failure; J44.0 Chronic obstructive pulmonary disease with (acute) lower respiratory infection; F05 Delirium due to known physiological condition; G93.49 Other encephalopathy; R57.9 Shock, unspecified; I47.20 Ventricular tachycardia, unspecified; N17.9 Acute kidney failure, unspecified; F03.94 Unspecified dementia, unspecified severity, with anxiety; Z95.2 Presence of prosthetic heart valve; Z20.822 Contact with and (suspected) exposure to COVID-19; I48.0 Paroxysmal atrial fibrillation; E03.9 Hypothyroidism, unspecified; T38.0X5A Adverse effect of glucocorticoids and synthetic analogues, initial encounter; T36.8X5A Adverse effect of other systemic antibiotics, initial encounter; I46.9 Cardiac arrest, cause unspecified; Z95.0 Presence of cardiac pacemaker; E87.5 Hyperkalemia; G47.33 Obstructive sleep apnea (adult) (pediatric); R79.1 Abnormal coagulation profile; Z91.199 Patient's noncompliance with other medical treatment and regimen due to unspecified reason; Z87.891 Personal history of nicotine dependence; Z79.51 Long term (current) use of inhaled steroids; Z79.01 Long term (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; Z79.890 Hormone replacement therapy; Z79.899 Other long term (current) drug therapy
CPT/HCPCS: 0241U; 36415; 36600; 71045; 71250; 80048; 80053; 80076; 80162; 80202; 81001; 82040; 82803; 82947; 83520; 83605; 83690; 83735; 83880; 84100; 84145; 84484; 85007; 85025; 85027; 85610; 85652; 85730; 86021; 86140; 86704; 86706; 87040; 87086; 87340; 87633; 90999; 93005; 93306; 94002; 94003; 94640; 94799; 99285; C1758; J0171; J0282; J0283; J0456; J0637; J0651; J0692; J1630; J1644; J1940; J2003; J2020; J2060; J2185; J2250; J2270; J2470; J2598; J2704; J2919; J3010; J3370; J3430; J3475; J3480; P9047

== ENCOUNTER → 2024-08-13 07:23 | Outpatient (BNV) | payer MEDICARE, MEDICAID, SELFPAY | PROVIDERS: Admitting Provider Student in an Organized Health Care Education/Training Program; Emergency Provider Emergency Medicine; PCP Internal Medicine; Visit Provider Internal Medicine | DX: R94.31 Abnormal electrocardiogram [ECG] [EKG] (principal) | CPT/HCPCS: 93010 ==

== ENCOUNTER → 2024-08-13 08:03 | Outpatient (BNV) | payer MEDICARE, MEDICAID, SELFPAY | PROVIDERS: Emergency Provider Emergency Medicine; PCP Internal Medicine; Visit Provider Internal Medicine Critical Care Medicine | DX: J84.9 Interstitial pulmonary disease, unspecified (principal); J44.9 Chronic obstructive pulmonary disease, unspecified; J96.20 Acute and chronic respiratory failure, unspecified whether with hypoxia or hypercapnia; R57.9 Shock, unspecified | CPT/HCPCS: 31500; 36556; 99291; 99499 ==

== ENCOUNTER 2024-08-13 13:29 | Outpatient (BNV) | payer MEDICARE, MEDICAID, SELFPAY | END 2024-08-15 16:46 | PROVIDERS: Admitting Provider Student in an Organized Health Care Education/Training Program; Emergency Provider Emergency Medicine; PCP Internal Medicine; Visit Provider Internal Medicine | DX: R94.31 Abnormal electrocardiogram [ECG] [EKG] (principal) | CPT/HCPCS: 93010 ==

== ENCOUNTER 2024-08-13 13:29 | Outpatient (BNV) | payer MEDICARE, MEDICAID, SELFPAY | END 2024-08-20 18:22 | PROVIDERS: Admitting Provider Student in an Organized Health Care Education/Training Program; Emergency Provider Emergency Medicine; PCP Internal Medicine; Visit Provider Internal Medicine Cardiovascular Disease | DX: R94.31 Abnormal electrocardiogram [ECG] [EKG] (principal) | CPT/HCPCS: 93010 ==

== ENCOUNTER 2024-08-13 13:29 | Outpatient (BNV) | payer MEDICARE, MEDICAID, SELFPAY | END 2024-08-19 11:00 | PROVIDERS: Admitting Provider Student in an Organized Health Care Education/Training Program; Emergency Provider Emergency Medicine; PCP Internal Medicine; Visit Provider Internal Medicine Cardiovascular Disease | DX: I35.0 Nonrheumatic aortic (valve) stenosis (principal); Z95.2 Presence of prosthetic heart valve; I36.1 Nonrheumatic tricuspid (valve) insufficiency | CPT/HCPCS: 93306 ==

== ENCOUNTER → 2024-08-13 13:29 | Outpatient (BNV) | payer MEDICARE, MEDICAID, SELFPAY | PROVIDERS: Admitting Provider Student in an Organized Health Care Education/Training Program; Emergency Provider Emergency Medicine; PCP Internal Medicine; Visit Provider Nurse Practitioner Family | DX: N17.9 Acute kidney failure, unspecified (principal); J96.20 Acute and chronic respiratory failure, unspecified whether with hypoxia or hypercapnia; R57.9 Shock, unspecified | CPT/HCPCS: 99222; 99232 ==

== ENCOUNTER → 2024-08-13 13:29 | Outpatient (BNV) | payer MEDICARE, MEDICAID, SELFPAY | PROVIDERS: Admitting Provider Student in an Organized Health Care Education/Training Program; Emergency Provider Emergency Medicine; PCP Internal Medicine; Visit Provider Internal Medicine | DX: I51.9 Heart disease, unspecified (principal); N17.9 Acute kidney failure, unspecified; R57.9 Shock, unspecified | CPT/HCPCS: 99223; 99233 ==

== ENCOUNTER → 2024-08-13 13:29 | Outpatient (BNV) | payer MEDICARE, MEDICAID, SELFPAY | PROVIDERS: Admitting Provider Student in an Organized Health Care Education/Training Program; Emergency Provider Emergency Medicine; PCP Internal Medicine; Visit Provider Student in an Organized Health Care Education/Training Program | DX: J18.9 Pneumonia, unspecified organism (principal); J96.21 Acute and chronic respiratory failure with hypoxia | CPT/HCPCS: 99223; 99499 ==

== ENCOUNTER → 2024-08-13 13:29 | Outpatient (BNV) | payer MEDICARE, MEDICAID, SELFPAY | PROVIDERS: Admitting Provider Student in an Organized Health Care Education/Training Program; Emergency Provider Emergency Medicine; PCP Internal Medicine; Visit Provider Internal Medicine Pulmonary Disease | DX: I47.20 Ventricular tachycardia, unspecified (principal); N17.9 Acute kidney failure, unspecified; R57.9 Shock, unspecified; J96.01 Acute respiratory failure with hypoxia; R93.89 Abnormal findings on diagnostic imaging of other specified body structures | CPT/HCPCS: 99222; 99239; 99291 ==